=== PATIENT | female | born 1955 | race Caucasian/White ===

== ENCOUNTER 2022-11-26 12:21 | Inpatient (IN) | payer MEDICARE ==
--- OUTSIDE RECORDS SUMMARY | 2022-11-26 12:28 | XMS REPORT | Continuity of Care Document ---
:1955 Author Organization [facility] t Address [address] [facility] [address] [place] [address] Care Team Providers Name Role Phone ALTHEA RIBERA Primary Care Physician Unavailable Jonathon Phillips Attending Clinician Unavailable Jonathon Phillips Attending Clinician Unavailable Mickie Cronin RN Attending Clinician Unavailable ALTHEA RIBERA Attending Clinician [facility] Unavailable [email or web address] Attending Clinician Unavailable Naheed BACA, Jose Sanchez Attending Clinician Clayton BACA, Soledad Recinos Attending Clinician [phone] Augusto BACA, Sulema Attending Clinician Jose BACA, Sarai Castro Attending Clinician Mari Estrella MD Attending Clinician Jamia Meehan MD Attending Clinician Raffaele Hurtado MD Attending Clinician Patricia BACA, Deborah Attending Clinician Bernard Haider MA Attending Clinician Unavailable Sarah Ordoñez MA Attending Clinician Unavailable Josh Oakes MA Attending Clinician Unavailable Macey MCKEON, Estrellita Attending Clinician Jeanette BACA, Kishan Medley Attending Clinician [phone] Jamia Jean MA Attending Clinician Unavailable Margy Clifton Attending Clinician [phone] Violet Haider MA Attending Clinician Unavailable BUTCH BURNETTE Attending Clinician Unavailable DIANA CRESPO Attending Clinician Unavailable MARIELOS RIVERO Attending Clinician Unavailable HAYES BYRNE Attending Clinician Unavailable VENICE ALDRIDGE Attending Clinician Unavailable MD VENICE ALDRIDGE Attending Clinician Unavailable ROLLY MICHELLE Attending Clinician Unavailable MD ROLLY MICHELLE Attending Clinician Unavailable JONATHON PHILLIPS Attending Clinician Unavailable Abimael Lafleur Attending Clinician Unavailable Abimael Lafleur Attending Clinician Unavailable BLAKE GIFFORD M.D., Lizbeth LOZANO Attending Clinician Unavailable Jonathon Phillips Admitting Clinician Unavailable ALTHEA RIBERA Admitting Clinician Unavailable [email or web address] Admitting Clinician Unavailable SULEMA CASAS Admitting Clinician Unavailable VENICE ALDRIDGE Admitting Clinician Unavailable MD VENICE ALDRIDGE Admitting Clinician Unavailable CHAPARRO CROWLEY Admitting Clinician Unavailable MD CHAPARRO CROWLEY Admitting Clinician Unavailab Abimael Cox Admitting Clinician Unavailable Silvana GARCIA M.D., Lizbeth Pina Admitting Clinician [facility] [place] Payers Payer Name Policy Type Policy Number Effective Date Expiration Date S [facility] [id number] 2022 (MEDICARE 00:00:00 REPLACEMENT HMO) 2 M [id number] 2022 00:00:[address] [facility] [id number] 2022 (O) 00:00:00 [facility] POS [id number] 2019 00:00:00 Problems Condition Condition Condition Status Onset Resolution Last Treating Co mments Source Name Details Category Date Date Treatment Clinician Date Symptomati Symptomati Disease Active M ethodi c anemia c anemia 3 00:00: Hospita 00 l Chest Chest Disease Active Methodi tightness tightness 3 00:00: Hospita 00 l Dyspnea on Dyspnea on Disease Active M ethodi exertion exertion 3 00:00: Hospita 00 l Housing Housing Disease Active Methodi instabilit instabilit 05-20 st y y 00:00: Hospita 00 l Iron Iron Disease Active Overview: Method i deficiency deficiency 05-20tin st anemia anemia 00:00: g of this Hospita 00 note l might be different from the original. Added automatic ally from request for surgery [id number] Alcohol Alcohol Disease Active Methodi dependence dependence 09-24 , in , in 00:00: Hospita remission remission 00 l Backache Backache Disease Active Metho di 09-24 00:00: Hospita 00 l Food Food Disease Active Methodi insecurity insecurity 09-24 00:00: Hospita 00 l Insomnia Insomnia Disease Active Metho di 09-24 00:00: Hospita 00 l Tobacco Tobacco Disease Active Methodi abuse abuse 09-24 00:00: Hospita 00 l Type 2 Type 2 Disease Active Methodi diabetes diabetes 09-24 mellitus mellitus 00:00: Hospit a with with 00 l peripheral peripheral angiopathy angiopathy Hypothyroi Hypothyroi Disease Active M ethodi dism dism 07-02 00:00: Hospita 00 l Hypoglycem Hypoglycem Disease Active M ethodi ia ia 06-04 00:00: Hospita 00 l Essential Essential Disease Active Met hodi hypertensi hypertensi 04-24 on on 00:00: Hospita 00 l Hyperlipid Hyperlipid Disease Active M ethodi emia emia 04-24 00:00: Hospita 00 l Atrial Atrial Disease Active Methodi dilatation dilatation 04-24 , left , left 00:00: Hospita 00 l Cannabis Cannabis Disease Active Metho di abuse abuse 04-24 00:00: Hospita 00 l Family Family Disease Active Methodi history of history of 04-24 diabetes diabetes 00:00: Hospit a mellitus mellitus 00 l in father in father Hyponatrem Hyponatrem Disease Active M ethodi ia ia 04-11 00:00: Hospita 00 l Allergies, Adverse Reactions, Alerts Allergy Allergy Status Severity Reaction(s) Onset Inactive Treating Comm ents Source Name Type Date Date Clinician No Known NA Active [place] Allergie 07-06 lle s 11:56: Memoria 52 l No Known NA Active [place] Allergie 07-06 lle s 11:56: Memoria 49 l No Known NA Active [place] Allergie 06-30 lle s 08:17: Memoria 55 l No Known NA Active [place] Allergie 06-30 lle s 08:00: Memoria 45 l No Known NA Active [place] Allergie 06-30 lle s 07:37: Memoria 08 l No Known NA Active [place] Allergie 06-29 lle s 08:20: Memoria 39 l No Known NA Active [place] Allergie 06-22 lle s 15:51: Memoria 12 l No Known NA Active [place] Allergie 06-22 lle s 15:49: Memoria 14 l Sertrali Propensi Active Other (See Me thodi ne ty to Comments) 10-22 adverse 00:00: Hospita reaction 00 l s to drug Nifedipi Propensi Active Unknown Metho di ne ty to Reaction 04-08 adverse 00:00: Hospita reaction 00 l s to drug Other Propensi Active Rash Methodi ty to 04-08 adverse 00:00: Hospita reaction 00 l s Procardi Drug Active Medical a [facility] Procardi Drug Active Medical a [facility] Procardi Drug Active Medical a [facility] Procardi Drug Active Medical a [facility] Procardi Drug Active Medical a [facility] Procardi Drug Active Medical a [facility] Procardi Drug Active [facility] Procardi Drug Active [facility] Procardi Drug Active [facility] Procardi Drug Active [facility] Procardi Drug Active [facility] Procardi Drug Active [facility] Procardi Drug Active [facility] Procardi Drug Active [facility] Procardi Drug Active [facility] Procardi Drug Active [facility] Procardi Drug Active [facility] Procardi Drug Active Medical a [facility] Procardi Drug Active Medical a [facility] Procardi Drug Active Medical a [facility] Procardi Drug Active Medical a [facility] Family History Family Member Diagnosis Comments Start Date Stop Date Source Natural brother Cancer [facility] Natural brother Bipolar disorder Met [facility] Natural brother Hypertension Method[facility] Natural father Diabetes [facility] Natural father Hyperlipidemia Method [facility] Natural father Hypertension [facility] Natural mother Cancer [facility] Natural mother Diabetes [facility] Natural mother Heart attack [facility] Natural mother Hyperlipidemia Method [facility] Natural mother Hypertension [facility] Natural mother Stroke [facility] Social History Social Habit Start Date Stop Date Quantity Comments Source Gender identity 2022-04-22 Identifies as Method ist 20:33:51 female gender Hospital (finding) Sexual orientation 2022-04-22 Heterosexual Meth odist 20:33:51 (finding) Hospital History of tobacco Cigarette Smoker Worship use Hospital History [facility] Worship Alcohol Std Drinks Hospit al History of Social 2022-06-22 2022-06-[address] function 00:00:00 00:00:00 Hospital Alcohol intake 2022-05-29 2022-05-29 Ex-drinker Worship 00:00:00 00:00:00 (finding) Hospital Tobacco use and 2022-05-20 2022-05-20 Smokeless tobacco Me thodist exposure 00:00:00 00:00:00 non-user Hospital Cigarettes smoked 2022-05-20 2022-05-[address] current (pack per 00:00:00 00:00:00 Hospita l day) - Reported Cigarette 2022-05-20 2022-05-20 Worship pack-years 00:00:00 00:00:00 Hospital History [facility] 2022-05-11 2022-05-11 3 Worship Social Connections 00:00:00 00:00:00 Hospit al Phone History [facility] 2022-05-11 2022-05-11 5 Worship Social Connections 00:00:00 00:00:00 Hospit al Get Together History [facility] 2022-05-11 2022-05-11 1 Worship Social Connections 00:00:00 00:00:00 Hospit al Tenriism History [facility] 2022-05-11 2022-05-11 2 Worship Social Connections 00:00:00 00:00:00 Hospit al Membership History [facility] 2022-05-11 2022-05-11 1 Worship Social Connections 00:00:00 00:00:00 Hospit al Meetings History [facility] 2022-05-11 2022-05-11 4 Worship Social Connections 00:00:00 00:00:00 Hospit al Living History [facility] Food 2022-05-11 2022-05-[address] Worry 00:00:00 00:00:00 Hospital History [facility] Food 2022-05-11 2022-05-[address] Scarcity 00:00:00 00:00:00 Hospital History [facility] 2022-05-11 2022-05-11 1 Worship Transport Med 00:00:00 00:00:00 Hospital History [facility] 2022-05-11 2022-05-11 1 Worship Transport Non-Med 00:00:00 00:00:00 Hospita l History [facility] 2020-04-24 2020-04-24 1 Worship Alcohol Frequency 00:00:00 00:00:00 Hospita l History [facility] 2020-04-24 2020-04-24 1 Worship Alcohol Binge 00:00:00 00:00:00 Hospital Sex Assigned At [address] [facility] 00:00[facility]00 [facility]00 [facility] Smoking Status Start Date Stop Date Source Ex-smoker 2022-05-20 00:00:00 2022-05-20 00:00:00 [facility] Hospital Medications Ordered Filled Start Stop Current Ordering Indication Dosage Frequency Signature Comments Components Source Medication Medication Date Date Medication? Clinician (SIG) Name Name metoprolol Yes 25mg Q.5D Take 1 Metho di succinate 3-14 tablet (25 st XL 14:24: mg total) Hospita (TOPROL-XL) 05 by mouth 2 l 25 mg 24 hr (two) tablet times a day. metoprolol Yes 25mg Q.5D Take 1 Metho di succinate 3-14 tablet (25 st XL 14:24: mg total) Hospita (TOPROL-XL) 05 by mouth 2 l 25 mg 24 hr (two) tablet times a day. metoprolol 2023-0 Yes 25mg Q.5D Take 1 Metho di succinate 3-14 tablet (25 st XL 14:24: mg total) Hospita (TOPROL-XL) 05 by mouth 2 l 25 mg 24 hr (two) tablet times a day. rosuvastati 2023-0 Yes 20mg QD Take 1 Meth xavier n (CRESTOR) 3-13 tablet (20 st 20 mg 14:25: mg total) Hospita tablet 05 by mouth l daily. rosuvastati 2023-0 Yes 20mg QD Take 1 Meth xavier n (CRESTOR) 3-13 tablet (20 st 20 mg 14:25: mg total) Hospita tablet 05 by mouth l daily. rosuvastati 2023-0 Yes 20mg QD Take 1 Meth xavier n (CRESTOR) 3-13 tablet (20 st 20 mg 14:25: mg total) Hospita tablet 05 by mouth l daily. pantoprazol 2023-0 2023- No 40mg Q.5D Take 1 Met hodi e 3-13 04-13 tablet (40 st (PROTONIX) 00:00: 04:59 mg total) H ospita 40 MG EC 00 :00 by mouth 2 l tablet (two) times a day for 30 days. pantoprazol 2023-0 2023- No 40mg Q.5D Take 1 Met hodi e 3-13 04-13 tablet (40 st (PROTONIX) 00:00: 04:59 mg total) H ospita 40 MG EC 00 :00 by mouth 2 l tablet (two) times a day for 30 days. pantoprazol 2023-0 2023- No 40mg Q.5D Take 1 Met hodi e 3-13 04-13 tablet (40 st (PROTONIX) 00:00: 04:59 mg total) H ospita 40 MG EC 00 :00 by mouth 2 l tablet (two) times a day for 30 days. bisacodyL 2023-0 Yes 5mg Take 1 Method i (Dulcolax, 3-07 tablet (5 st bisacodyl,) 00:00: mg total) H ospita 5 mg EC 00 by mouth l tablet take as directed for constipati on (take all 4 pills at once 6 pm the day before procedure) . bisacodyL 2023-0 Yes 5mg Take 1 Method i (Dulcolax, 3-07 tablet (5 st bisacodyl,) 00:00: mg total) H ospita 5 mg EC 00 by mouth l tablet take as directed for constipati on (take all 4 pills at once 6 pm the day before procedure) . bisacodyL 2023-0 Yes 5mg Take 1 Method i (Dulcolax, 3-07 tablet (5 st bisacodyl,) 00:00: mg total) H ospita 5 mg EC 00 by mouth l tablet take as directed for constipati on (take all 4 pills at once 6 pm the day before procedure) . polyethylen 2023-0 2023- No 17g QD Take 17 g Methodi e glycol 3-09 14-[address] (Miralax) 00:00: 04:59 daily for Ho spita 17 gram 00 :00 30 days. l packet polyethylen 2023-0 2023- No 17g QD Take 17 g Methodi e glycol 3-09 14-[address] (Miralax) 00:00: 04:59 daily for Ho spita 17 gram 00 :00 30 days. l packet polyethylen 2023-0 2023- No 17g QD Take 17 g Methodi e glycol 3- 04-[address] (Miralax) 00:00: 04:59 daily for Ho spita 17 gram 00 :00 30 days. l packet polyethylen 2023-0 2023- No 119g Take 119 g Methodi e glycol 3-09 13-[address] (GLYCOLAX) 00:00: 00:00 take as Hos irena 17 00 :00 directed l gram/dose (take as powder instructed for bowel prep). polyethylen 2023-0 2023- No 119g Take 119 g Methodi e glycol 3- 03-[address] (GLYCOLAX) 00:00: 00:00 take as Hos irena 17 00 :00 directed l gram/dose (take as powder instructed for bowel prep). polyethylen 2023-0 2023- No 119g Take 119 g Methodi e glycol 3- 03-[address] (GLYCOLAX) 00:00: 00:00 take as Hos irena 17 00 :00 directed l gram/dose (take as powder instructed for bowel prep). aspirin 2022- No 81mg QD Take 81 mg Met hodi (ECOTRIN) 2-20 02-[address] 81 MG 10:01: 00:00 daily. Hospita enteric 05 :00 l coated tablet aspirin 2022- No 81mg QD Take 81 mg Met hodi (ECOTRIN) 2-20 02-[address] 81 MG 10:01: 00:00 daily. Hospita enteric 05 :00 l coated tablet aspirin 2022- No 81mg QD Take 81 mg Met hodi (ECOTRIN) 2-20 02-[address] 81 MG 10:01: 00:00 daily. Hospita enteric 05 :00 l coated tablet sulfamethox 2022- No [id number] 1{tbl} Q.5D Take 1 Methodi azole-trime -03 05- tablet by st thoprim 00:00: 05:59 mouth 2 Hospit a (BACTRIM 00 :00 (two) l DS) 800-160 times a mg per day for 5 tablet days. sulfamethox 2022- No [id number] 1{tbl} Q.5D Take 1 Methodi azole-trime -03 05- tablet by st thoprim 00:00: 05:59 mouth 2 Hospit a (BACTRIM 00 :00 (two) l DS) 800-160 times a mg per day for 5 tablet days. sulfamethox 2022- No [id number] 1{tbl} Q.5D Take 1 Methodi azole-trime 2-03 05- tablet by st thoprim 00:00: 05:59 mouth 2 Hospit a (BACTRIM 00 :00 (two) l DS) 800-160 times a mg per day for 5 tablet days. sulfamethox 2022- No [id number] 1{tbl} Q.5D Take 1 Methodi azole-trime 2-10 13-[address] thoprim 00:00: 00:00 mouth 2 Hospit a (BACTRIM 00 :00 (two) l DS) 800-160 times a mg per day for 5 tablet days. sulfamethox 2022- No [id number] 1{tbl} Q.5D Take 1 Methodi azole-trime 04-21-[address] thoprim 00:00: 00:00 mouth 2 Hospit a (BACTRIM 00 :00 (two) l DS) 800-160 times a mg per day for 5 tablet days. sulfamethox 2022- No [id number] 1{tbl} Q.5D Take 1 Methodi azole-trime 04-21-[address] thoprim 00:00: 00:00 mouth 2 Hospit a (BACTRIM 00 :00 (two) l DS) 800-160 times a mg per day for 5 tablet days. predniSONE 2021- No [id number] 20mg Q.5D Take 1 Methodi (DELTASONE) -01 10-27 tablet (20 s t 20 mg 00:00: 04:59 mg total) Hospit a tablet 00 :00 by mouth 2 l (two) times a day for 5 days. predniSONE 2021-2021- No [id number] 20mg Q.5D Take 1 Methodi (DELTASONE) -01 10-27 tablet (20 s t 20 mg 00:00: 04:59 mg total) Hospit a tablet 00 :00 by mouth 2 l (two) times a day for 5 days. ondansetron 2022- No 4mg Q8H Take 1 Met hodi (Zofran) 4 -18 02-20 tablet (4 st MG tablet 00:00: 00:00 mg total) Ho spita 00 :00 by mouth l every 8 (eight) hours as needed for nausea or vomiting. ondansetron 2021-0 2022- No 4mg Q8H Take 1 Met hodi (Zofran) 4 7-18 02-20 tablet (4 st MG tablet 00:00: 00:00 mg total) Ho spita 00 :00 by mouth l every 8 (eight) hours as needed for nausea or vomiting. ondansetron 2021-2022- No 4mg Q8H Take 1 Met hodi (Zofran) 4 7-18 02-20 tablet (4 st MG tablet 00:00: 00:00 mg total) Ho spita 00 :00 by mouth l every 8 (eight) hours as needed for nausea or vomiting. varicella-z 2021-0 2021- No [id number] .5mL Inject 0.5 Methodi amanda 09-10- mL into st gE-AS01B, 00:00: 04:59 the Hospita PF, 00 :00 shoulder, l (Shingrix, thigh, or PF,) 50 buttocks mcg/0.5 mL once for 1 suspension dose. for reconstitut ion IM injection varicella-z 2021-2021- No [id number] .5mL Inject 0.5 Methodi amanda 09-10 07- mL into st gE-AS01B, 00:00: 04:59 the Hospita PF, 00 :00 shoulder, l (Shingrix, thigh, or PF,) 50 buttocks mcg/0.5 mL once for 1 suspension dose. for reconstitut ion IM injection metoprolol 2021-2021- No 25mg Q.5D Take 25 mg Methodi tartrate 07-30-[address] (LOPRESSOR) 13:22: 00:00 (two) Hosp noreen 25 mg 59 :00 times a l tablet day. metoprolol 2021-2021- No [id number] 25mg Q.5D Take 1 Methodi tartrate 5-19 08-18 tablet (25 st (LOPRESSOR) 00:00: 04:59 mg total) Hospita 25 mg 00 :00 by mouth 2 l tablet (two) times a day for 90 days. metoprolol 2021-0 2021- No [id number] 25mg Q.5D Take 1 Methodi tartrate 5-19 08-18 tablet (25 st (LOPRESSOR) 00:00: 04:59 mg total) Hospita 25 mg 00 :00 by mouth 2 l tablet (two) times a day for 90 days. albuterol 2022- No [id number] INHALE THE Methodi (ACCUNEB) 04-01 02-[address] 1.25 mg/3 00:00: 00:00 OF 1 VIAL Ho spita mL 00 :00 VIA l nebulizer NEBULIZER solution EVERY 6 (SIX) HOURS NEEDED FOR WHEEZING. albuterol 2021-2022- No [id number] INHALE THE Methodi (ACCUNEB) 04-01-[address] 1.25 mg/3 00:00: 00:00 OF 1 VIAL Ho spita mL 00 :00 VIA l nebulizer NEBULIZER solution EVERY 6 (SIX) HOURS NEEDED FOR WHEEZING. albuterol 2022- No [id number] INHALE THE Methodi (ACCUNEB) 04-01-[address] 1.25 mg/3 00:00: 00:00 OF 1 VIAL Ho spita mL 00 :00 VIA l nebulizer NEBULIZER solution EVERY 6 (SIX) HOURS NEEDED FOR WHEEZING. acarbose 2020-03 Yes [id number] TAKE 1 Me thodi (PRECOSE) 2-[address] 25 MG 00:00: THREE Hospita tablet 00 TIMES l DAILY WITH MEALS acarbose 2020-03 Yes [id number] TAKE 1 Me thodi (PRECOSE) 2-[address] 25 MG 00:00: THREE Hospita tablet 00 TIMES l DAILY WITH MEALS acarbose 2020-03 Yes [id number] TAKE 1 Me thodi (PRECOSE) 2-[address] 25 MG 00:00: THREE Hospita tablet 00 TIMES l DAILY WITH MEALS DULoxetine 2020-03- No [id number] TAKE 1 Methodi (CYMBALTA) 03-16 07 CAPSULE(30 st 30 MG 00:00: 00:00 MG) BY Hospita capsule 00 :00 MOUTH l DAILY DULoxetine 2020-03- No [id number] TAKE 1 Methodi (CYMBALTA) 03-16 07 CAPSULE(30 st 30 MG 00:00: 00:00 MG) BY Hospita capsule 00 :00 MOUTH l DAILY levothyroxi 2020-03 Yes [id number] TAKE 1 Methodi ne 0-19 TABLET(25 st (SYNTHROID) 00:00: MCG) BY Hos irena 25 mcg 00 MOUTH l tablet DAILY levothyroxi 2020-03 Yes [id number] TAKE 1 Methodi ne 0-19 TABLET(25 st (SYNTHROID) 00:00: MCG) BY Hos irena 25 mcg 00 MOUTH l tablet DAILY levothyroxi 2020-03 Yes [id number] TAKE 1 Methodi ne 0-19 TABLET(25 st (SYNTHROID) 00:00: MCG) BY Hos irena 25 mcg 00 MOUTH l tablet DAILY nebulizers 2022- No For Method i misc 09-[address] 00:00: 00:00 use Hospita 00 :00 l nebulizers 2022- No For Method i misc 09-[address] 00:00: 00:00 use Hospita 00 :00 l nebulizers 2022- No For Method i misc 09-[address] 00:00: 00:00 use Hospita 00 :00 l lisinopriL 2020-0 Yes 40mg QD Take 1 Metho di (PRINIVIL) 7-14 tablet (40 st 40 mg 00:00: mg total) Hospita tablet 00 by mouth l daily. lisinopriL 2020-0 Yes 40mg QD Take 1 Metho di (PRINIVIL) 7-14 tablet (40 st 40 mg 00:00: mg total) Hospita tablet 00 by mouth l daily. lisinopriL 2020-0 Yes 40mg QD Take 1 Metho di (PRINIVIL) 7-14 tablet (40 st 40 mg 00:00: mg total) Hospita tablet 00 by mouth l daily. clopidogreL 0 Yes 75mg QD Take 1 Meth xavier (PLAVIX) 75 4-27 tablet (75 st mg tablet 00:00: mg total) Hos irena 00 by mouth l daily. clopidogreL 2020-0 Yes 75mg QD Take 1 Meth xavier (PLAVIX) 75 4-27 tablet (75 st mg tablet 00:00: mg total) Hos irena 00 by mouth l daily. clopidogreL 2020-0 Yes 75mg QD Take 1 Meth xavier (PLAVIX) 75 4-27 tablet (75 st mg tablet 00:00: mg total) Hos irena 00 by mouth l daily. Immunizations Ordered Immunization Filled Immunization Date Status Commen ts Source Name Name Pneumococcal 2021-09-10 Completed Worship 20-valent Conjugate 00:00:00 Hospi tristan Vaccine Pneumococcal 2021-09-10 Completed Worship 20-valent Conjugate 00:00:00 [facility]pi [facility]istan Vaccine Pneumococcal 2021-09-10 Completed Worship 20-valent Conjugate 00:00:00 [facility]pi tristan Vaccine PFIZER COVID-19 MRNA 2021-02-19 Completed Meth odist VACCINATION 00:00:00 [facility] PFIZER COVID-19 MRNA 2021-02-19 Completed Meth odist VACCINATION 00:00:00 [facility] PFIZER COVID-19 MRNA 2021-02-19 Completed Meth odist VACCINATION 00:00:00 [facility] PFIZER COVID-19 MRNA 2020-12-16 Completed Meth odist VACCINATION 00:00:00 [facility] PFIZER COVID-19 MRNA 2020-12-16 Completed Meth odist VACCINATION 00:00:00 [facility] PFIZER COVID-19 MRNA 2020-12-16 Completed Meth odist VACCINATION 00:00:00 [facility] PFIZER COVID-19 MRNA 2020-10-22 Completed Meth odist VACCINATION 00:00:00 [facility] PFIZER COVID-19 MRNA 2020-10-22 Completed Meth odist VACCINATION 00:00:00 [facility] PFIZER COVID-19 MRNA 2020-10-22 Completed Meth odist VACCINATION 00:00:00 [facility] FLUZONE HIGH-DOSE PF 2020-04-07 Completed Meth odist 00:00:00 [facility] FLUZONE HIGH-DOSE PF 2020-04-07 Completed Meth odist 00:00:00 [facility] FLUZONE HIGH-DOSE PF 2020-04-07 Completed Meth odist 00:00:00 Hospital Vital Signs Vital Name Observation Time Observation Value Comments Source Height/Length 2021-04-02 12:09:46 162 cm Measured Weight Dosing 2021-04-02 12:09:46 67 kg Height/Length 2021-04-02 12:09:35 162 cm Measured Weight Dosing 2021-04-02 12:09:35 67 kg Height/Length 2021-04-02 12:09:22 162 cm Measured Weight Dosing 2021-04-02 12:09:22 67 kg Height/Length 2021-04-02 12:09:04 162 cm Measured Weight Dosing 2021-04-02 12:09:04 67 kg Height/Length 2021-04-02 12:08:47 162 cm Measured Weight Dosing 2021-04-02 12:08:47 67 kg Height/Length 2021-04-02 12:08:22 162 cm Measured Weight Dosing 2021-04-02 12:08:22 67 kg Height/Length 2021-04-02 12:08:08 162 cm Measured Weight Dosing 2021-04-02 12:08:08 65.30 kg Height/Length 2021-04-02 12:07:45 162 cm Measured Weight Dosing 2021-04-02 12:07:45 65.30 kg Weight Dosing 2021-04-02 12:10:49 64.00 kg Weight Dosing 2021-04-02 12:10:43 64.00 kg Height/Length 2019-10-04 15:21:21 Measured Height/Length 2019-10-04 06:19:50 Measured Weight Dosing 2019-10-04 06:19:50 Weight Dosing 2021-04-02 11:55:59 67.20 kg Weight Dosing 2021-04-02 11:49:34 67.20 kg Weight Dosing 2021-04-02 11:49:25 67.20 kg Weight Dosing 2021-04-02 11:49:22 67.20 kg Weight Dosing 2021-04-02 11:49:19 67.20 kg Weight Dosing 2021-04-02 11:49:16 67.20 kg Heart rate 2022-05-24 13:30:00 78 /min [facility] Systolic blood 2022-05-24 12:27:52 139 mm[Hg] [facility] pressure Diastolic blood 2022-05-24 12:27:52 72 mm[Hg] [facility] pressure Body temperature 2022-05-24 12:27:52 36.44 [place] [facility] Respiratory rate 2022-05-24 12:27:52 18 /min [facility] Oxygen saturation in 2022-05-24 12:27:52 98 /min [facility] Arterial blood by Pulse oximetry Body weight 2022-05-24 10:37:00 58.514 kg [facility] BMI 2022-05-24 10:37:00 23.59 kg/m2 [facility] Body height 2022-05-22 13:39:00 157.5 cm [facility] Procedures Procedure Date / Time Performing Source Performed Clinician POC GLUCOSE 2022-05-24 Jamia Meehan 13:33:00 [facility] BASIC METABOLIC PANEL 2022-05-24 Jamia Meehan 10:10:00 [facility] CBC WITH PLATELET AND DIFFERENTIAL 2022-05-24 Elvia Meehan 10:10:00 [facility] MAGNESIUM LEVEL 2022-05-24 Jamia Meehan 10:10:00 [facility] ESTIMATED GFR 2022-05-24 Jamia Meehan 10:10:00 [facility] POC GLUCOSE 2022-05-24 Jamia Meehan 01:56:00 [facility] POC GLUCOSE 2022-05-23 Jamia Meehan 16:39:00 [facility] POC GLUCOSE 2022-05-23 Jamia Meehan 13:03:00 [facility] BASIC METABOLIC PANEL 2022-05-23 Mari Estrella [facility] 09:18:00 Hospital CBC WITH PLATELET AND DIFFERENTIAL 2022-05-23 Mari Estrella [facility] 09:18:00 Hospital ESTIMATED GFR 2022-05-23 Mari Estrella [facility] 09:18:00 Hospital POC GLUCOSE 2022-05-23 Jamia Meehan 02:34:00 [facility] POC GLUCOSE 2022-05-22 Jamia Meehan 23:05:00 [facility] POC GLUCOSE 2022-05-22 Jamia Meehan 16:54:00 [facility] ESOPHAGOGASTRODUODENOSCOPY (EGD) 2022-05-22 Tray Farfan 14:12:00 Hospital COLONOSCOPY 2022-05-22 Tray Farfan 14:12:00 Hospital SURGICAL PATHOLOGY REQUEST 2022-05-22 Jamia Meehan [facility] 13:21:00 [facility] BASIC METABOLIC PANEL 2022-05-22 Mari Estrella [facility] 12:00:00 Hospital CBC WITH PLATELET AND DIFFERENTIAL 2022-05-22 Mari Estrella 12:00:00 Hospital LIPID PANEL 2022-05-22 Mari Estrella [facility] 12:00:00 Hospital HEMOGLOBIN A1C 2022-05-22 Mari Estrella [facility] 12:00:00 Hospital VITAMIN B12 LEVEL 2022-05-22 Mari Estrella [facility] 12:00:00 Hospital CERULOPLASMIN LEVEL 2022-05-22 Mari Estrella [facility] 12:00:00 Hospital ESTIMATED GFR 2022-05-22 Mari Estrella [facility] 12:00:00 Hospital COPPER LEVEL, SERUM 2022-05-22 Mari Estrella My [facility] 11:05:00 Hospital POC GLUCOSE 2022-05-22 Mari Estrella My [facility] 04:13:00 Hospital US HEPATIC 2022-05-22 Mari Estrella My [facility] 02:50:00 Hospital POC GLUCOSE 2022-05-21 Mari Estrella My [facility] 22:18:00 Hospital POC GLUCOSE 2022-05-21 Mari Estrella My [facility] 19:38:00 Hospital POC GLUCOSE 2022-05-21 Mari Estrella My [facility] 19:13:00 Hospital POC GLUCOSE 2022-05-21 EstrellaMari My [facility] 17:59:00 Hospital POC GLUCOSE 2022-05-21 Mari Estrella My [facility] 13:56:00 Hospital CBC WITH PLATELET AND DIFFERENTIAL 2022-05-21 Jose, Sarai Worship 09:58:00 [facility] COMPREHENSIVE METABOLIC PANEL 2022-05-21 Sarai Garcia thodist 09:58:00 [facility] ESTIMATED GFR 2022-05-21 Jose Sarai Worship 09:58:00 [facility] POC GLUCOSE 2022-05-21 Jose, Sarai Worship 02:44:00 [facility] TROPONIN T 2022-05-21 Jose, Sarai Worship 01:37:00 [facility] TROPONIN T 2022-05-20 Jose, Sarai Worship 23:42:00 [facility] POC GLUCOSE 2022-05-20 Jose Sarai Worship 23:41:00 [facility] TRANSFUSE RED BLOOD CELLS 2022-05-20 Soledad Arnold Method ist 22:25:00 [facility] TTE COMPLETE, WO CONTRAST, W 2022-05-20 Sarai Garcia Met hodist DOPPLER ([id number]) 20:24:00 [facility] TRANSFUSE RED BLOOD CELLS 2022-05-20 Soledad Arnold Method ist 19:43:00 [facility] CT ABDOMEN PELVIS W CONTRAST 2022-05-20 Sarai Garcia Met hodist 19:40:42 [facility] US DUPLEX VENOUS LOWER EXTREMITY 2022-05-20 Soledad Arnoldist BILATERAL 18:53:00 [facility] TROPONIN T 2022-05-20 Sarai Garcia 18:20:00 [facility] ABO AND RH CONFIRMATION BY 2022-05-20 Sarai Garcia dist PROTOCOL 18:20:00 [facility] MA CRITICAL CARE ILL/INJURED 2022-05-20 Soledad Arnold hodist PATIENT INIT 30-74 MIN 17:10:18 [facility] ECG ED PRELIMINARY INTERPRETATION 2022-05-20 Donna Arnold 17:10:18 [facility] COMPREHENSIVE METABOLIC PANEL 2022-05-20 Soledad Arnold thodist 16:35:00 [facility] CBC WITH PLATELET AND DIFFERENTIAL 2022-05-20 Artemio Arnold 16:35:00 [facility] PROTHROMBIN TIME WITH INR 2022-05-20 Soledad Arnold ist 16:35:00 [facility] PARTIAL THROMBOPLASTIN TIME (PTT) 2022-05-20 Donna Arnold 16:35:00 [facility] TYPE AND SCREEN 2022-05-20 Soledad Arnold 16:35:00 [facility] ESTIMATED GFR 2022-05-20 Soledad Arnold 16:35:00 [facility] SMEAR REVIEW 2022-05-20 Soledad Arnold 16:35:00 [facility] ECG 12-LEAD 2022-05-20 Soledad Arnold 15:57:02 [facility] PREPARE RBC 2022-05-20 Soledad Arnold 15:35:00 [facility] TOTAL IRON BINDING CAPACITY 2022-05-18 Jose Farfan Daniel Meth odist 15:13:00 Hospital FERRITIN LEVEL 2022-05-18 Elian Farfanul Daniel [facility] 15:13:00 Hospital COMPREHENSIVE METABOLIC PANEL 2022-05-18 Tray Farfan thodist 15:13:00 Hospital LIPASE LEVEL 2022-05-18 Naheed Jose Daniel [facility] 15:13:00 Hospital CBC WITH PLATELET AND DIFFERENTIAL 2022-05-18 Jose Farfan H aq Worship 15:13:00 Hospital ESTIMATED GFR 2022-05-18 Elian Farfanul Daniel [facility] 15:13:00 [facility] TOTAL IRON BINDING CAPACITY 2022-05-18 Jose Farfan Daniel Meth odist 15:13:00 Hospital URINE CULTURE 2022-04-21 Deborah Gomezist 16:01:00 [facility] POC URINALYSIS DIPSTICK 2022-04-21 Deborah Gomez t 15:20:26 Hospital CBC WITH PLATELET AND DIFFERENTIAL 2022-04-21 Deborah Gomezist 15:17:00 Hospital BASIC METABOLIC PANEL 2022-04-21 Deborah Gomez 15:17:00 [facility] MRI LUMBAR SPINE WO CONTRAST 2021-09-23 Margy Snyder [facility] 13:20:00 [facility] HEMOGLOBIN A1C 2021-09-10 Deborah Gomez 18:40:00 [facility] HEPATITIS C ANTIBODY 2021-09-10 Deborah Gomez 18:40:00 [facility] MICROALBUMIN / CREATININE URINE 2021-09-10 Deborah Gomez RATIO 18:40:00 Hospital XR LUMBAR SPINE 2 OR 3 VW 2021-08-13 Margy Snyder Method ist 15:48:39 [facility] CBC WITH PLATELET AND DIFFERENTIAL 2021-07-30 Deborah Gomez 18:32:00 [facility] BASIC METABOLIC PANEL 2021-07-30 Deborah Gomez 18:32:00 [facility] LIPID PANEL 2021-07-30 Deborah Gomez 18:32:00 [facility] Plan of Care Planned Activity Planned Date Details Comments Source Future Scheduled 2022-11-17 Screening for [facility] Test 20:12:18 malignant neoplasm of colon (procedure) [code = 284711550] Future Scheduled 2022-11-17 Screening for [facility] Test 20:12:18 malignant neoplasm of colon (procedure) [code = 550421433] Future Scheduled 2022-11-17 Screening for [facility] Test 20:12:18 malignant neoplasm of colon (procedure) [code = 547557448] Future Scheduled 2022-11-17 SHINGLES VACCINES (1 Met [facility] Test 20:12:18 of 2) [code = SHINGLES VACCINES (1 of 2)] Future Scheduled 2022-11-17 DIABETES: RETINAL EYE Me [facility] Test 20:12:18 EXAM [code = DIABETES: RETINAL EYE EXAM] Future Scheduled 2022-11-17 BREAST [facility]CER [facility] 20:12:18 SCREENING [code = BREAST CANCER SCREENING] Future Scheduled 2022-11-17 COVID-19 VACCINE (4 - [facility] 20:12:18 Pfizer series) [code = COVID-19 VACCINE (4 - Pfizer series)] Future Scheduled 2022-11-17 DIABETIC FOOT EXAM [facility] Test 20:12:18 [code = DIABETIC FOOT EXAM] Future Scheduled 2022-11-17 URINE MICROALBUMIN [facility] Test 20:12:18 [code = URINE MICROALBUMIN] Future Scheduled 2022-11-17 INFLUENZA VACCINE (#1) [facility] 20:12:18 [code = INFLUENZA VACCINE (#1)] Future Scheduled 2022-11-17 [facility] for [facility] 20:12:18 malignant neoplasm of colon (procedure) [code = 861941934] Future Scheduled 2022-11-17 Screening for [facility] Test 20:12:18 malignant neoplasm of colon (procedure) [code = 251096379] Future Scheduled 2022-07-28 SHINGLES VACCINES (1 Met [facility] Test 07:13:53 of 2) [code = SHINGLES VACCINES (1 of 2)] Future Scheduled 2022-07-28 DIABETES: RETINAL EYE [facility] Test 07:13:53 EXAM [code = DIABETES: RETINAL EYE EXAM] Future Scheduled 2022-07-28 BREAST CANCER [facility] Test 07:13:53 SCREENING [code = BREAST CANCER SCREENING] Future Scheduled 2022-07-28 COVID-19 VACCINE (4 - [facility] Test 07:13:53 Booster for Pfizer series) [code = COVID-19 VACCINE (4 - Booster for Pfizer series)] Future Scheduled 2022-07-28 DIABETIC FOOT EXAM [facility] Test 07:13:53 [code = DIABETIC FOOT EXAM] Future Scheduled 2022-07-28 URINE MICROALBUMIN [facility] Test 07:13:53 [code = URINE MICROALBUMIN] Future Scheduled 2022-07-28 INFLUENZA VACCINE [facility] Test 07:13:53 [code = INFLUENZA VACCINE] Future Scheduled 2022-07-[address] [facility] Test 07:13:53 [code = COLONOSCOPY SCREENING] Future Scheduled 2022-05-27 SHINGLES VACCINES (1 Met [facility] Test 10:06:33 of 2) [code = SHINGLES VACCINES (1 of 2)] Future Scheduled 2022-05-27 DIABETES: RETINAL EYE [facility] Test 10:06:33 EXAM [code = DIABETES: RETINAL EYE EXAM] Future Scheduled 2022-05-27 COLONOSCOPY SCREENING [facility] Test 10:06:33 [code = COLONOSCOPY SCREENING] Future Scheduled 2022-05-27 [facility]AST [facility]CER [facility] Test 10:06:33 SCREENING [code = BREAST CANCER SCREENING] Future Scheduled 2022-05-27 COVID-19 VACCINE (4 - [facility] Test 10:06:33 Booster for Pfizer series) [code = COVID-19 VACCINE (4 - Booster for Pfizer series)] Future Scheduled 2022-05-27 INFLUENZA VACCINE [facility] Test 10:06:33 [code = INFLUENZA VACCINE] Future Scheduled 2022-05-27 DIABETIC FOOT EXAM [facility] Test 10:06:33 [code = DIABETIC FOOT EXAM] Future Scheduled 2022-05-27 URINE MICROALBUMIN [facility] Test 10:06:33 [code = URINE MICROALBUMIN] Encounters Start End Encounter Admission Attending Care Care Encounter Source Date/Time Date/Time Type Type Clinicians Facility Department ID 2019-10-03 Inpatient Jonathon Phillips [facility] JUANITA [id number] Medical 09:27:00 Jonathon Phillips [facility] 2022-07-16 2022-07-16 [facility] 00:00:00 [id number] Medica l Group 2022-07-15 2022-07-15 [facility] 00:00:00 [id number] Medica l Group 2022 2022 Patient Dove, 1.2.840.1 [id number] Methodi 00:00:00 00:00:00 Outreach Mickie 87197.1.1 706 3.430.2.7 Hospit a .3.777443 l .8 2022 2022 Patient Dove, 1.2.840.1 [id number] Methodi 00:00:00 00:00:00 Outreach Mickie 07669.1.[address] 3.430.2.7 Hospit a .3.624917 l .8 2022-07-07 2022-07-07 Patient Dove, 1.2.840.1 [id number] Methodi 00:00:00 00:00:00 Outreach Mickie 74802.1.[address] 3.430.2.7 Hospit a .3.532475 l .8 2022-07-07 2022-07-07 Patient Dove, 1.2.840.1 [id number] 3562 Methodi 00:00:00 00:00:00 Outreach Mickie 62041.1.[address] 3.430.2.7 Hospit a .3.455163 l .8 2022-06-30 2022-06-30 Outpatient EBONY 2.16.840.1. 1 [id number] 12:37:00 12:37:00 Encounter E [id number]. [facility] [id number] [facility] 2022-06-30 2022-06-30 Outpatient 3 BEST, ALTHEA HVLMo DEX 474 Genny 07:37:00 07:37:00 0419 llpat Woodall l 2022-06-29 2022-06-29 Patient Dove, 1.2.840.1 [id number] Methodi 00:00:00 00:00:00 Outreach Mickie 58925.1.[address] 3.430.2.7 Hospit a .3.499955 l .8 2022-06-29 2022-06-29 Patient Dove, 1.2.840.1 [id number] Methodi 00:00:00 00:00:00 Outreach Mickie 72385.1.[address] 3.430.2.7 Hospit a .3.892218 l .8 2022-06-23 2022-06-23 Patient Pablito, 1.2.840.1 [id number] Methodi 00:00:00 00:00:00 Outreach Nafisa 38178.1.[address] 3.430.2.7 Hospit a .3.909185 l .8 2022-06-23 2022-06-23 Patient Pablito, 1.2.840.1 [id number] Methodi 00:00:00 00:00:00 Outreach Lisaa 72641.1.[address] 3.430.2.7 Hospit a .3.681218 l .8 2022-06-22 2022-06-22 Patient Dove, 1.2.840.1 [id number] Methodi 00:00:00 00:00:00 Outreach Mickie 21054.1.[address] 3.430.2.7 Hospit a .3.773868 l .8 2022-06-22 2022-06-22 Patient Dove, 1.2.840.1 [id number] Methodi 00:00:00 00:00:00 Outreach Mickie 54368.1.[address] 3.430.2.7 Hospit a .3.104496 l .8 2022-06-09 2022-06-09 Patient Pablito, 1.2.840.1 [id number] Methodi 00:00:00 00:00:00 Outreach Osmanutina 11922.1.[address] 3.430.2.7 Hospit a .3.032050 l .8 2022-06-09 2022-06-09 Patient Pablito, 1.2.840.1 [id number] 2085 Methodi 00:00:00 00:00:00 Outreach Osmanutina 21291.1.[address] 3.430.2.7 Hospit a .3.558308 l .8 2022-06-08 2022-06-08 Outpatient GC_CCW_Rami PRIV PRIV [id number] [facility] 00:00:00 00:00:00 francia_Mala [id number] Medica l 2022-06-03 2022-06-03 Outpatient GC_CCW_Rami PRIV PRIV [id number] [facility] 00:00:00 00:00:00 francia_R [id number] Medica l 2022-05-27 2022-05-27 Jose Leon 1.2.840.1 [id number] Methodi 00:00:00 00:00:[address] 3.430.2.7 Hospit a .3.552723 l .8 2022-05-27 2022-05-27 Quincy Jose Farfan 1.2.840.1 [id number] Methodi 00:00:00 00:00:[address] 3.430.2.7 Hospit a .3.448133 l .8 2022-05-20 2022-05-24 [facility] [id number] Methodi 09:49:00 14:24:00 Encounter Sulema Casas 30873.1.[address] Kura, Sarai Methuku 3.430.2.7 [facility], Mari My .3.397991 Jamia Hunt .8 2022-05-20 2022-05-24 [facility] 1.2.840. 1 [id number] Methodi 09:49:00 14:24:00 Encounter Sulema Casas 60860.1.[address] Kura, Sarai Methuku 3.430.2.7 [facility], Mari My .3.129312 Jamia Hunt .8 2022-05-22 2022-05-22 Anesthesia Hurtado, 1.2.840.1 [id number] [id number] Methodi 08:12:00 09:05:00 Event Raffaele 12567.1.[address] 3.430.2.7 Hospit a .3.993957 l .8 2022-05-22 2022-05-22 Anesthesia Hurtado, 1.2.840.1 [id number] Methodi 08:12:00 09:05:00 Event Raffaele 82205.1.[address] 3.430.2.7 Hospit a .3.517120 l .8 2022-05-22 2022-05-22 Surgery Farfan, Jose 1.2.840.1 [id number] 21 [id number] Methodi 08:00:00 08:30:[address] 3.430.2.7 Hospit a .3.257034 l .8 2022-05-22 2022-05-22 Surgery Farfan, Jose 1.2.840.1 [id number] Methodi 08:00:00 08:30:[address] 3.430.2.7 Hospit a .3.303360 l .8 2022-05-18 2022-05-18 Lab Farfan, Jose 1.2.840.1 [id number] 21 [id number] Methodi 09:15:00 09:20:[address] 3.430.2.7 Hospit a .3.192788 l .8 2022-05-18 2022-05-18 [facility] 1.2.840.1 [id number] 21 [id number] Methodi 09:15:00 09:20:[address] 3.430.2.7 Hospit a .3.750987 l .8 2022-05-18 2022-05-18 Office Farfan, Jose 1.2.840.1 [id number] 21 [id number] Methodi 08:00:00 08:50:33 Visit Daniel 22786.1.[address] 3.430.2.7 Hospit a .3.151995 l .8 2022-05-18 2022-05-18 Office Farfan, Jose 1.2.840.1 [id number] 21 [id number] Methodi 08:00:00 08:50:33 Visit Daniel 53663.1.[address] 3.430.2.7 Hospit a .3.686783 l .8 2022-05-18 2022-05-18 Travel 1.2.840.1 1.2.680.729 2156 [id number] Methodi 00:00:00 00:00:[address] 3.430.2.7 0.2.7.3.698 Ho spita .3.013830 084.8 l .8 2022-05-18 2022-05-18 Travel 1.2.840.1 1.2.810.200 0645 741157 Methodi 00:00:00 00:00:[address] 3.430.2.7 0.2.7.3.698 Ho spita .3.143555 084.8 l .8 2022-05-14 2022-05-14 Telephone Gomez, 1.2.840.1 [id number] 2100 [id number] Methodi 00:00:00 00:00:[address] 3.430.2.7 Hospit a .3.741295 l .8 2022-05-14 2022-05-14 Telephone Gomez, 1.2.840.1 [id number] 2100 [id number] Methodi 00:00:00 00:00:[address] 3.430.2.7 Hospit a .3.983507 l .8 2022-05-06 2022-05-06 Telephone Gomez, 1.2.840.1 [id number] 06124 Methodi 00:00:00 00:00:[address] 3.430.2.7 Hospit a .3.141220 l .8 2022-05-06 2022-05-06 Telephone Gomez, 1.2.840.1 [id number] 62374 86036 Methodi 00:00:00 00:00:[address] 3.430.2.7 Hospit a .3.280967 l .8 2022-05-03 2022-05-03 Office Gomez, 1.2.840.1 [id number] 901 Methodi 10:00:00 10:11:51 Visit Deborah [address]5592.1.[address] 3.430.2.7 Hospit a .3.103141 l .8 2022-05-03 2022-05-03 Office Gomez, 1.2.840.1 [id number] 901 Methodi 10:00:00 10:11:51 Visit Deborah [address]8533.1.[address] 3.430.2.7 Hospit a .3.561093 l .8 2022-05-03 2022-05-03 Travel 1.2.840.1 1.2.987.563 9949 328096 Methodi 00:00:00 00:00:[address] 3.430.2.7 0.2.7.3.698 Ho spita .3.672512 084.8 l .8 2022-05-03 2022-05-03 Travel 1.2.840.1 1.2.606.056 3868 133914 Methodi 00:00:00 00:00:[address] 3.430.2.7 0.2.7.3.698 Ho spita .3.765299 084.8 l .8 2022-04-21 2022-04-21 Office Gomez, 1.2.840.1 [id number] 263 Methodi 09:00:00 09:25:59 Visit Deborah 35978.1.[address] 3.430.2.7 Hospit a .3.892187 l .8 2022-04-21 2022-04-21 Office Gomez, 1.2.840.1 [id number] 263 Methodi 09:00:00 09:25:59 Visit Deborah 57935.1.[address] 3.430.2.7 Hospit a .3.358998 l .8 2022-04-20 2022-04-20 Travel 1.2.840.1 1.2.683.780 6789 927103 Methodi 00:00:00 00:00:[address] 3.430.2.7 0.2.7.3.698 Ho spita .3.784932 084.8 l .8 2022-04-20 2022-04-20 Travel 1.2.840.1 1.2.079.501 7709 135343 Methodi 00:00:00 00:00:[address] 3.430.2.7 0.2.7.3.698 Ho spita .3.948412 084.8 l .8 2022-04-19 2022-04-19 Telephone FarfanJose 1.2.840.1 [id number] Methodi 00:00:00 00:00:[address] 3.430.2.7 Hospit a .3.921243 l .8 2022-04-19 2022-04-19 Telephone FarfanJose 1.2.840.1 [id number] Methodi 00:00:00 00:00:[address] 3.430.2.7 Hospit a .3.865338 l .8 2021-10-08 2021-10-08 Refritesh Haider, 1.2.840.1 [id number] 4900 Methodi 00:00:00 00:00:00 Diannastefangreer 43848.1.1 [address] 3.430.2.7 Hospit a .3.270060 l .8 2021-10-05 2021-10-05 Travel 1.2.840.1 1.2.674.438 0591 355956 Methodi 00:00:00 00:00:[address] 3.430.2.7 0.2.7.3.698 Ho spita .3.094668 084.8 l .8 2021-10-02 2021-10-02 Sarah Hess 1.2.840.1 [id number] Methodi 00:00:00 00:00:[address] 3.430.2.7 Hospit a .3.640916 l .8 2021-10-01 2021-10-01 Telemedici Gomez, 1.2.840.1 [id number] 2100 [id number] Methodi 12:40:00 12:40:00 ne Deborah 96174.1.[address] 3.430.2.7 Hospit a .3.710352 l .8 2021-09-30 2021-09-30 Travel 1.2.840.1 1.2.277.062 4144 143476 Methodi 00:00:00 00:00:[address] 3.430.2.7 0.2.7.3.698 Ho spita .3.691561 084.8 l .8 2021-09-29 2021-09-29 Telephone Violette 1.2.840.1 [id number] 2099 [id number] Methodi 00:00:00 00:00:[address] 3.430.2.7 Hospit a .3.014487 l .8 2021-09-28 2021-09-28 Orders Patricia 1.2.840.1 [id number] 440 Methodi 00:00:00 00:00:00 Only Deborah 11910.1.[address] 3.430.2.7 Hospit a .3.028257 l .8 2021-09-28 2021-09-28 Telephone Patricia 1.2.840.1 [id number] 47081 Methodi 00:00:00 00:00:[address] 3.430.2.7 Hospit a .3.719459 l .8 2021-09-25 2021-09-25 Virtual Estrellita Choudhury 1.2.840.1 [id number] [id number] Methodi 16:30:00 17:02:[address] Care 3.430.2.7 Hospit a .3.574750 l .8 2021-09-25 2021-09-25 Outpatient [facility] [id number] 323 [place] 00:00:00 00:00:[address] 2021-09-25 2021-09-25 Telephone Gomez, 1.2.840.1 [id number] 00680 13881 Methodi 00:00:00 00:00:[address] 3.430.2.7 Hospit a .3.424650 l .8 2021-09-23 2021-09-23 Hospital Gomez, 1.2.840.1 [id number] Methodi 06:48:07 23:59:00 Encounter Deborah [address]497.1.[address] 3.430.2.7 Hospit a .3.596660 l .8 2021-09-22 2021-09-22 Travel 1.2.840.1 1.2.751.792 2373 609896 Methodi 00:00:00 00:00:[address] 3.430.2.7 0.2.7.3.698 Ho spita .3.003617 084.8 l .8 2021-09-11 2021-09-11 Refill Jeanette, 1.2.840.1 [id number] 5365 Methodi 00:00:00 00:00:[address] [place] 3.430.2.7 Hospit a .3.850548 l .8 2021-09-10 2021-09-10 Office Gomez, 1.2.840.1 [id number] 526 Methodi 13:00:00 13:43:26 Visit Deborah 50485.1.[address] 3.430.2.7 Hospit a .3.129480 l .8 2021-09-10 2021-09-10 Travel 1.2.840.1 1.2.065.807 5819 782659 Methodi 00:00:00 00:00:[address] 3.430.2.7 0.2.7.3.698 Ho spita .3.567053 084.8 l .8 2021-09-08 2021-09-08 Patient Ted, 1.2.840.1 [id number] Methodi 00:00:00 00:00:00 Outreach Jamia 46387.1.[address] 3.430.2.7 Hospit a .3.639332 l .8 2021-08-14 2021-08-14 Travel 1.2.840.1 1.2.221.500 6931 969337 Methodi 00:00:00 00:00:[address] 3.430.2.7 0.2.7.3.698 Ho spita .3.432994 084.8 l .8 2021-08-13 2021-08-13 Office [place], 1.2.840.1 [id number] [facility] 11:00:00 13:40:00 Visit Margy 41739.1.[address] Nava 3.430.2.7 Hospit a .3.202193 l .8 2021-08-13 2021-08-13 Outpatient [facility] [id number] [place] 00:00:00 00:00:[address] 2021-08-11 2021-08-11 Travel 1.2.840.1 1.2.264.290 0078 [id number] [facility] 00:00:00 00:00:[address] 3.430.2.7 0.2.7.3.698 Ho spita .3.771823 084.8 l .8 2021-07-30 2021-07-30 Office Gomez, 1.2.840.1 [id number] 245 [facility] 13:00:00 13:25:42 Visit Deborah 55811.1.[address] 3.430.2.7 Hospit a .3.023121 l .8 2021-07-30 2021-07-30 Travel 1.2.840.1 1.2.161.338 2891 [id number] [facility] 00:00:00 00:00:[address] 3.430.2.7 0.2.7.3.698 Ho spita .3.638484 084.8 l .8 2021-07-28 2021-07-28 Documentat [place], 1.2.840.1 [id number] [facility] 00:00:00 00:00:00 ion Violet 33175.1.[address] [place] 3.430.2.7 Hos irena .3.318722 l .8 2021-07-27 2021-07-27 Travel 1.2.840.1 1.2.874.527 0985 182206 [facility] 00:00:00 00:00:[address] 3.430.2.7 0.2.7.3.698 Ho spita .3.553620 084.8 l .8 2021-02-19 2021-02-19 Outpatient BURNETTE, [facility] [id number] 750 [place] 00:00:00 00:00:00 BUTCH 721 Method i 2021-02-19 2021-02-19 Outpatient [facility] [id number] [place] 00:00:00 00:00:00 989 [facility] i 2021-01-26 2021-01-26 Outpatient BURNETTE, [facility] [id number] 543 [place] 00:00:00 00:00:00 BUTCH 356 Method i 2021-01-05 2021-01-05 Outpatient GOMEZ, [facility] [id number] 375 [place] 00:00:00 00:00:00 DEBORAH 021 Method i 2021-01-05 2021-01-05 Outpatient [facility] [id number] 459 [place] 00:00:00 00:00:[address] 2020-12-16 2020-12-16 Outpatient GOMEZ, [facility] [id number] [place] 00:00:00 00:00:00 DEBORAH [address] 2020-12-16 2020-12-16 Outpatient [facility] [id number] [place] 00:00:00 00:00:[address] 2020-10-22 2020-10-22 Outpatient [facility] [id number] [place] 00:00:00 00:00:[address] 2020-10-22 2020-10-22 Outpatient CHERIE, [facility] [id number] [place] 00:00:00 00:00:[address] 2020-10-22 2020-10-22 Outpatient MARIELOS RIVERO [facility] [id number] [place] 00:00:00 00:00:[address] 2020-10-16 2020-10-16 Outpatient [facility] [id number] [facility] 00:00:00 00:00:00 CORONA [facility] 2020-10-09 2020-10-09 Outpatient JEANETTE, [facility] [id number] 286 [place] 00:00:00 00:00:00 MOHAMMED [address] 2020-09-24 2020-09-24 Outpatient GOMEZ, [facility] [id number] [place] 00:00:00 00:00:00 EDBORAH [address] 2020-08-14 2020-08-14 Outpatient [facility] [id number] [place] 00:00:00 00:00:[address] 2020-07-18 2020-07-18 Outpatient CHERIE, [facility] [id number] [place] 00:00:00 00:00:[address] 2020-07-08 2020-07-08 Outpatient RAMINENI, [facility] [id number] [place] 00:00:00 00:00:00 VENICE [address] 2020-07-07 2020-07-07 Emergency [facility] [id number] 84 [place] 00:00:00 00:00:[address] 2020-07-04 2020-07-04 Outpatient RAMINENI, [facility] [id number] [place] 00:00:00 00:00:00 VENICE [address] 2020-07-02 2020-07-02 Outpatient JEANETTE, [facility] [id number] [place] 00:00:00 00:00:00 MOHAMMED [address] 2020-06-04 2020-06-04 Outpatient JEANETTE, [facility] [id number] [place] 00:00:00 00:00:00 MOHAMMED [address] 2020-04-242020-04-24 Outpatient [facility] [id number] [place] 00:00:00 00:00:00 876 Alexa lopez 2020-04-10 2020-04-12 Inpatient [facility] [id number] [place] 00:00:00 00:00:00 ROLLY [address] 2019-10-29 2019-10-29 Outpatient EL NANCY PHILLIPS AE [id number] CHRISTU 09:43:00 09:43:[address] [place] [address] 2019-10-07 2019-10-07 Emergency [facility] [id number] Medical 12:55:00 12:55:00 [facility] 2019-10-07 2019-10-07 Emergency 1 Abimael Lafleur [facility]DER [id number] Medical 12:55:00 12:55:00 Abimael Lafleur -[id number] [facility] 2019-10-04 2019-10-04 Outpatient 3 Jonathon Phillips MCSETX JUANITA [id number] Medical 06:02:00 06:02:00 Jonathon Phillips -[id number] [facility] 2019-09-18 2019-09-18 Outpatient EL NANCY PHILLIPS AE [id number] CHRISTU 15:35:00 15:35:[address] 2019-09-13 2019-09-13 Emergency [facility]DER [id number] Medical 12:30:00 12:30:00 [facility] 2016-08-15 2016-08-15 Inpatient E [facility] MED [id number] Medical 19:45:00 15:34:00 [facility] 2016-05-03 2016-05-03 Emergency E [facility] MED [id number] Medical 12:46:00 12:46:00 [facility] 2016-04-23 2016-04-23 Emergency E [facility] MED [id number] Medical 09:15:00 09:15:00 [facility] Results Test Description Test Time Test Comments Results Result Comments Source Surgical pathology request 2022-05-25 16:44:20 Test Item Value Reference Range Interpretation Comme nts Case number (test code = 1251750) [id number] Surgical pathology report (test code = See link below for PDF Lab R eport 2255) Result status (test code = 6638016) This is Final Report for [id number] [facility] pathology [id number] 16:44:20 Test Item Value Reference Range Interpretation Comments Case number (test code = [id number]) Surgical pathology See link below for report (test code = PDF Lab Report 2255) Result status (test code This is Final Report = [id number]) for [id number] [facility] pathology [id number] 16:44:20 Test Item Value Reference Range Interpretation Comments Case number (test code = [id number]) Surgical pathology See link below for report (test code = PDF Lab Report 2255) Result status (test code This is Final Report = [id number]) for [id number] [facility] [id number] 13:34:00 Test Item Value Reference Range Interpretation Comments POC glucose (test code 192 mg/dL 65-99 H Opera tor Name: = 96022-1) Michelle Abdi Device ID: [id number] Lab Interpretation Abnormal (test code = 23432-3) [facility]2023-03-13 13:34:00 Test Item Value Reference Range Interpretation Comments POC glucose (test code 192 mg/dL 65-99 H Opera tor Name: = 84647-1) Michelle Abdi Device ID: [id number] Lab Interpretation Abnormal (test code = 54320-3) [facility]2023-03-13 13:34:00 Test Item Value Reference Range Interpretation Comments POC glucose (test code 192 mg/dL 65-99 H Opera tor Name: = 34303-7) Michelle Abdi Device ID: [id number] Lab Interpretation Abnormal (test code = 93088-5) [facility], (w Contrast, Strain and 3D if needed)2022-05-21 18:57:50 Test Item Value Reference Range Interpretation Comments Ao Root Diameter 2.47 cm (test code = 1718431982) AoV Area, Vmax 2.17 cm2 See_Comment [Automated (test code = message] The 0717710448) system which generated this result transmitted reference range : >=1.5. The reference range was not used to interpret this result as normal/abnormal . AoV Area, VTI 2.37 cm2 (test code = 3341073284) AoV Mean PG (test 3.69 mmHg code = 3158169843) AoV Peak PG (test 7.79 mmHg code = 3884534190) AoV Vmax (test 1.40 m/s code = 7979989211) AoV VTI (test code 0.31 m = 9662664044) BSA Cox (test 1.68 m2 code = 9600321028) BSA (test code = 1.64 m2 2234286212) IVS,d (test code = 0.90 cm 0.6-0.9 3360576912) IVS/LVPW,2D (test 1.05 code = 2534499152) Left Atrium 5.09 cm Dimension Anterior (test code = 2453221821) LV,d (test code = 4.93 cm 8744392207) LV EF,2D (test 68.15 % code = 6991155097) LV EF,A2C (test 64.40 % code = 1139744680) LV EF,A4C (test 67.19 % code = 0453538220) LV EF,BP (test 66.16 % code = 5822240363) [place]akesh [place],d A2C 7.43 cm (test code = 1107085874) Rakesh [place],d A4C 7.77 cm (test code = 2360948788) Rakesh [place],s A2C 6.18 cm (test code = 1373812901) Rakesh [place],s A4C 6.37 cm (test code = 0421127142) LV,s (test code = 3.37 cm 3067823995) LV SV,A2C (test 47.58 % code = 3150134750) LV SV,A4C (test 61.18 % code = 2654525047) LV SV,BP (test 55.46 % code = 1449626418) LV Vol,d A2C (test 73.88 mL code = 9392160564) LV Vol,d A4C (test 91.06 ml code = 6140722176) LV Vol,d BP (test 83.82 ml code = 7439969094) LV Vol,s A2C (test 26.30 mL code = 2784256132) LV Vol,s A4C (test 29.88 ml code = 6515323777) LV Vol,s BP (test 28.36 nl code = 3499562518) LVOT area (test 2.98 cm2 code = 2891535519) LVOT Diam,S (test 1.95 cm code = 4481921209) LVOT Vmax (test 1.02 m/s code = 7254581335) LVOT VTI (test 0.25 m code = 4756051329) LVPWD,d (test code 0.85 cm 0.60-1.19 = 1922229342) TR Vpeak (test 2.87 m/s code = 7706436724) MV E A ratio (test 2.90 code = 0430938842) TR pk grad (test 33.4 mmHg code = 2612266954) AoV area i VTI BSA 1.45 cm2/m2 See_Comment [Automat ed Radha (test code message] T he = 8596047649) system which generated this result transmitted reference range : >=0.85. The reference range was not used to interpret this result as normal/abnormal . LV SI MOD BP BSA 33.79 ml/m2 [place] (test code = 2175802166) LV Vol Index s 51.07 ml/m2 bpmod BSA [place] (test code = 0526312346) PV Vmn (test code 17.28 m/s = 4549325027) BMI (test code = 24.09 kg/m2 1576987274) E wave decelartion 245.16 See_Comment [Automat ed time (test code = message] T he 8868604187) system which generated this result transmitted reference range : 200 msec. The reference range was not used to interpret this result as normal/abnormal . MV Peak A Guillermo 0.45 m/s (test code = 0588715157) MV valve area p 3.09 cm2 1/2 method (test code = 0374433666) MV Peak E Guillermo 1.29 m/s (test code = 6990212165) MV stenosis 71.10 ms pressure 1/2 time (test code = 3638727844) LVOT stroke volume 0.75 cm3 (test code = 4207424234) AV LVOT peak 4.17 mmHg gradient (test code = 5809419854) Ao Root Diameter 2.47 cm (test code = 9914231351) MV mean gradient 2.73 mmHg (test code = 5893478709) LV SYS VOL (test 46.28 ml 14-42 code = 1944155544) LV GRESHAM VOL (test 114.31 ml 46-106 code = 9763619809) LA area s A4C 29.13 cm2 (test code = 1940063784) LV SI Teich 2D 41.45 ml/m2 (test code = 6255759098) LV SV Teich 2D 68.03 ml (test code = 4299321653) LV Vol s Teich 46.28 ml PSAX (test code = 5667751767) LVOT SI (test code 45.10 ml/m2 = 5985117334) MR peak grad (test 8.42 mmHg code = 7402935600) MV Vmax (test code 1.45 m = 4375884936) MV VTI Tips (test 0.38 m code = 2741210254) BSA [place] (test 1.67 m2 code = 4257505712) AoV Vmn (test code 0.88 m/s = 9906114083) IVS s 2D (test 1.44 cm code = 4584204750) LV FS Teich 2D 31.71 (test code = 1751335952) MV AE ratio (test 0.35 code = 2119554054) LV FS Cube 2D 31.71 (test code = 1887967178) LVOT Vmn (test 0.76 code = 5973250365) Pt Size (test code 160.02 = 7131968899) Pt Wt (test code = 61.69 8414212830) Aov area Vmn (test 2.56 cm2 code = 7150675510) LA A_P score P 4.87 (test code = 6251910061) LVOT mean grad 2.52 mmHg (test code = 1520685678) 85 of MPHR (test 129.33 code = 1659316736) AoV area I VMN bsa 1.56 cm2/m2 (test code = 7827070714) Calc MPHR (test 152.15 bpm code = 7209096802) IVS pct thck PLAX 60.66 % (test code = 7670615771) LV SI Cube 2D 49.68 ml/m2 (test code = 5624400046) LV SV Cube 2D 81.55 ml (test code = 3442225177) LV vol d cube 2D 119.66 ml (test code = 9734172914) LV vol s cube 2D 38.11 ml (test code = 3898442304) LVPW pct thck PLAX 60.93 % (test code = 7232428182) LVPW s PLAX (test 1.37 cm code = 3042915633) MV Decel slope 5.27 m/s2 (test code = 9361098469) Pred Exer Dur R1 7.06 (test code = 9259110213) Pred METS R1 (test 5.88 code = 3632514099) LA Vol MOD A4C 106.72 ml (test code = 2565891055) Velocity Ratio 0.73 m/s (V1/V2) (test code = 4689) EF (test code = 60 % 8360911927) E/A ratio (test 2.87 code = 2926449940) LV Systolic Volume 16.04 mL/m2 Index (test code = 9287043229) LV Diastolic 45.05 mL/m2 Volume Index (test code = 2649969129) LVOT VTI (CM) 25.00 cm (test code = 2853991348) RVSP (test code = 38.40 See_Comment [Automate d 6374943667) message] The system which generated this result transmitted reference range : 40.00 mmHg. The reference range was not used to interpret this result as normal/abnormal . RA pressure (test 5.0 mmHg code = 6949104489) BINDU (test code = BINDU) Left Ventricle: Normal systolic function with a visually estimated EF of 55 - 60%. Grade II (pseudonormal) diastolic dysfunction. Left Atrium: Left atrium is severely dilated. Right Ventricle: Right ventricle size is normal. Right Atrium: Right atrium is mildly dilated. Mitral Valve: Mildly thickened leaflets. Mild mitral annular calcification. Moderate valvular regurgitation with multiple jets. Tricuspid Valve: Mild valvular regurgitation. Left VentricleLeft ventricle size is normal. Normal wall thickness. Normal systolic function with a visually estimated EF of 55 - 60%. Grade II (pseudonormal) diastolic dysfunction.Right VentricleRight ventricle size is normal. Normal systolic function.Left AtriumLeft atrium is severely dilated.Right AtriumRight atrium is mildly dilated.IVC/SVCIVC diameter is less than or equal to 21 mm and decreases greater than 50% during inspiration; therefore the estimated right atrial pressure is normal (~3 mmHg).Mitral ValveMildly thickened leaflets. Mild mitral annular calcification. Moderate valvular regurgitation with multiple jets. No stenosis.Tricuspid ValveValve structure grossly normal. Mild valvular regurgitation. No stenosis.Aortic ValveValve structure appears tricuspid. Mildly sclerotic cusps. Trace valvular regurgitation. No stenosis.Pulmonic ValveNot well visualized. No significant valvular regurgitation. No stenosis.Pericardium There is no pericardial effusion present.AortaNormal sized aortic root.Study DetailsStudy quality was fair. A complete 2D, color flow Doppler and spectral Doppler echocardiogram was performed.The apical and parasternal views were obtained. The subcostal view was poor. The suprasternal view was poor. Technical difficulties due to patient's body habitus. [facility], (w Contrast, Strain and 3D if needed)2022-05-21 18:57:50 Test Item Value Reference Range Interpretation Comments Ao Root Diameter 2.47 cm (test code = 6555167990) AoV Area, Vmax 2.17 cm2 >=1.5 (test code = 6904066133) AoV Area, VTI 2.37 cm2 (test code = 9678157032) AoV Mean PG (test 3.69 mmHg code = 8780484991) AoV Peak PG (test 7.79 mmHg code = 7386968702) AoV Vmax (test 1.40 m/s code = 3065028665) AoV VTI (test code 0.31 m = 5011022831) BSA Cox (test 1.68 m2 code = 4393740306) BSA (test code = 1.64 m2 4368232736) IVS,d (test code = 0.90 cm 0.6-0.9 0458487819) IVS/LVPW,2D (test 1.05 code = 7584499936) Left Atrium 5.09 cm Dimension Anterior (test code = 6700228612) LV,d (test code = 4.93 cm 4768868351) LV EF,2D (test 68.15 % code = 6642229271) LV EF,A2C (test 64.40 % code = 7627553748) LV EF,A4C (test 67.19 % code = 3869856757) LV EF,BP (test 66.16 % code = 0306086010) Rakesh [place],d A2C 7.43 cm (test code = 7535969183) Rakesh [place],d A4C 7.77 cm (test code = 3989953289) Rakesh [place],s A2C 6.18 cm (test code = 6806444031) Rakesh [place],s A4C 6.37 cm (test code = 4660706703) LV,s (test code = 3.37 cm 4399163486) LV SV,A2C (test 47.58 % code = 5983730828) LV SV,A4C (test 61.18 % code = 3530442680) LV SV,BP (test 55.46 % code = 7515623278) LV Vol,d A2C (test 73.88 mL code = 7139052484) LV Vol,d A4C (test 91.06 ml code = 9140098171) LV Vol,d BP (test 83.82 ml code = 6989190034) LV Vol,s A2C (test 26.30 mL code = 2494551935) LV Vol,s A4C (test 29.88 ml code = 8708671217) LV Vol,s BP (test 28.36 nl code = 0704276278) LVOT area (test 2.98 cm2 code = 2648429903) LVOT Diam,S (test 1.95 cm code = 0130329813) LVOT Vmax (test 1.02 m/s code = 4872374579) LVOT VTI (test 0.25 m code = 3529783972) LVPWD,d (test code 0.85 cm 0.60-1.19 = 9360835872) TR Vpeak (test 2.87 m/s code = 3108309596) MV E A ratio (test 2.90 code = 4704279095) TR pk grad (test 33.4 mmHg code = 9084264671) AoV area i VTI BSA 1.45 cm2/m2 >=0.85 Radha (test code = 9229466628) LV SI MOD BP BSA 33.79 ml/m2 [place] (test code = 5770071789) LV Vol Index s 51.07 ml/m2 bpmod BSA Radha (test code = 5101699588) PV Vmn (test code 17.28 m/s = 1818191041) BMI (test code = 24.09 kg/m2 6208610041) E wave decelartion 245.16 See_Comment [Automat ed time (test code = message] T he 6963267437) system which generated this result transmitted reference range : 200 msec. The reference range was not used to interpret this result as normal/abnormal . MV Peak A Guillermo 0.45 m/s (test code = 4932043376) MV valve area p 3.09 cm2 1/2 method (test code = 0824740289) MV Peak E Guillermo 1.29 m/s (test code = 4914458538) MV stenosis 71.10 ms pressure 1/2 time (test code = 8695342746) LVOT stroke volume 0.75 cm3 (test code = 3707685957) AV LVOT peak 4.17 mmHg gradient (test code = 6114096859) Ao Root Diameter 2.47 cm (test code = 3664518270) MV mean gradient 2.73 mmHg (test code = 0141681870) LV SYS VOL (test 46.28 ml 14-42 code = 0468421738) LV GRESHAM VOL (test 114.31 ml 46-106 code = 5901252914) LA area s A4C 29.13 cm2 (test code = 1598520428) LV SI Teich 2D 41.45 ml/m2 (test code = 3313409873) LV SV Teich 2D 68.03 ml (test code = 5083077581) LV Vol s Teich 46.28 ml PSAX (test code = 2078276045) LVOT SI (test code 45.10 ml/m2 = 0556932649) MR peak grad (test 8.42 mmHg code = 2896820309) MV Vmax (test code 1.45 m = 6298990494) MV VTI Tips (test 0.38 m code = 2367336464) BSA [place] (test 1.67 m2 code = 6620302963) AoV Vmn (test code 0.88 m/s = 8232934514) IVS s 2D (test 1.44 cm code = 7836247795) LV FS Teich 2D 31.71 (test code = 0457568393) MV AE ratio (test 0.35 code = 7562378410) LV FS Cube 2D 31.71 (test code = 8675134885) LVOT Vmn (test 0.76 code = 1381564894) Pt Size (test code 160.02 = 1886837549) Pt Wt (test code = 61.69 4008343738) Aov area Vmn (test 2.56 cm2 code = 1473501569) LA A_P score P 4.87 (test code = 9327430769) LVOT mean grad 2.52 mmHg (test code = 0769672745) 85 of MPHR (test 129.33 code = 6947108607) AoV area I VMN bsa 1.56 cm2/m2 (test code = 5901682629) Calc MPHR (test 152.15 bpm code = 6537475704) IVS pct thck PLAX 60.66 % (test code = 6011060572) LV SI Cube 2D 49.68 ml/m2 (test code = 5716200075) LV SV Cube 2D 81.55 ml (test code = 7655038058) LV vol d cube 2D 119.66 ml (test code = 5196714596) LV vol s cube 2D 38.11 ml (test code = 1489801410) LVPW pct thck PLAX 60.93 % (test code = 9465097258) LVPW s PLAX (test 1.37 cm code = 7256228995) MV Decel slope 5.27 m/s2 (test code = 2866760323) Pred Exer Dur R1 7.06 (test code = 2205289860) Pred METS R1 (test 5.88 code = 0623323320) LA Vol MOD A4C 106.72 ml (test code = 3116876677) Velocity Ratio 0.73 m/s (V1/V2) (test code = 4689) EF (test code = 60 % 4093460349) E/A ratio (test 2.87 code = 6696690367) LV Systolic Volume 16.04 mL/m2 Index (test code = 4667840357) LV Diastolic 45.05 mL/m2 Volume Index (test code = 0771736029) LVOT VTI (CM) 25.00 cm (test code = 7230159282) RVSP (test code = 38.40 See_Comment [Automate d 3937212997) message] The system which generated this result transmitted reference range : 40.00 mmHg. The reference range was not used to interpret this result as normal/abnormal . RA pressure (test 5.0 mmHg code = 3758950912) BINDU (test code = BINDU) Left Ventricle: Normal systolic function with a visually estimated EF of 55 - 60%. Grade II (pseudonormal) diastolic dysfunction. Left Atrium: Left atrium is severely dilated. Right Ventricle: Right ventricle size is normal. Right Atrium: Right atrium is mildly dilated. Mitral Valve: Mildly thickened leaflets. Mild mitral annular calcification. Moderate valvular regurgitation with multiple jets. Tricuspid Valve: Mild valvular regurgitation. Left VentricleLeft ventricle size is normal. Normal wall thickness. Normal systolic function with a visually estimated EF of 55 - 60%. Grade II (pseudonormal) diastolic dysfunction.Right VentricleRight ventricle size is normal. Normal systolic function.Left AtriumLeft atrium is severely dilated.Right AtriumRight atrium is mildly dilated.IVC/SVCIVC diameter is less than or equal to 21 mm and decreases greater than 50% during inspiration; therefore the estimated right atrial pressure is normal (~3 mmHg).Mitral ValveMildly thickened leaflets. Mild mitral annular calcification. Moderate valvular regurgitation with multiple jets. No stenosis.Tricuspid ValveValve structure grossly normal. Mild valvular regurgitation. No stenosis.Aortic ValveValve structure appears tricuspid. Mildly sclerotic cusps. Trace valvular regurgitation. No stenosis.Pulmonic ValveNot well visualized. No significant valvular regurgitation. No stenosis.Pericardium There is no pericardial effusion present.AortaNormal sized aortic root.Study DetailsStudy quality was fair. A complete 2D, color flow Doppler and spectral Doppler echocardiogram was performed.The apical and parasternal views were obtained. The subcostal view was poor. The suprasternal view was poor. Technical difficulties due to patient's body habitus. [facility] 12 [id number] 04:29:44 Test Item Value Reference Range Interpretation Comments Ventricular rate (test 56 code = 253) Atrial rate (test code 56 = 255) MA interval (test code 120 = 266) QRSD interval (test 88 code = 260) QT interval (test code 448 = 264) QTC interval (test code 432 = 265) P axis 1 (test code = -24 267) QRS axis 1 (test code = 42 268) T wave axis (test code 56 = 270) EKG impression (test Sinus bradycardia-Low code = 273) voltage QRS-Borderline ECG-In automated comparison with ECG of 08-JUL-2020 11:10,-No significant change was found- [facility] 12 [id number] 04:29:44 Test Item Value Reference Range Interpretation Comments Ventricular rate (test 56 code = 253) Atrial rate (test code 56 = 255) MA interval (test code 120 = 266) QRSD interval (test 88 code = 260) QT interval (test code 448 = 264) QTC interval (test code 432 = 265) P axis 1 (test code = -24 267) QRS axis 1 (test code = 42 268) T wave axis (test code 56 = 270) EKG impression (test Sinus bradycardia-Low code = 273) voltage QRS-Borderline ECG-In automated comparison with ECG of 08-JUL-2020 11:10,-No significant change was found- [facility] 12 [id number] 04:29:44 Test Item Value Reference Range Interpretation Comments Ventricular rate (test 56 code = 253) Atrial rate (test code 56 = 255) MA interval (test code 120 = 266) QRSD interval (test 88 code = 260) QT interval (test code 448 = 264) QTC interval (test code 432 = 265) P axis 1 (test code = -24 267) QRS axis 1 (test code = 42 268) T wave axis (test code 56 = 270) EKG impression (test Sinus bradycardia-Low code = 273) voltage QRS-Borderline ECG-In automated comparison with ECG of 08-JUL-2020 11:10,-No significant change was found- [facility] 2 [id number] 21:17:00 Test Item Value Reference Range Interpretation Comments Product name (test code Red Cells AS1 Leukored = 25) Irrad Unit number (test code [id number] = 8391510) Product code (test code B5173Q24 = 3092) Dispense status (test Transfused code = 24) Blood expiration date (test code = 302) Blood type code (test 5100 code = 308) Blood type (test code = O POSITIVE 1314) Compatibility (test Compatible code = 6400) BINDU (test code = BINDU) LAB: +PATIENT ID VERIFIED. [facility] RBC, 2 [id number] 21:17:00 Test Item Value Reference Range Interpretation Comments Product name (test code Red Cells AS1 Leukored = 25) Irrad Unit number (test code [id number] = 0695756) Product code (test code H3010J58 = 3092) Dispense status (test Transfused code = 24) Blood expiration date (test code = 302) Blood type code (test 5100 code = 308) Blood type (test code = O POSITIVE 1314) Compatibility (test Compatible code = 6400) BINDU (test code = BINDU) LAB: +PATIENT ID VERIFIED. [facility] [place] [place] RBC, 2 [id number] 21:17:00 Test Item Value Reference Range Interpretation Comments Product name (test code Red Cells AS1 Leukored = 25) Irrad Unit number (test code [id number] = 3536112) Product code (test code G7718I71 = 3092) Dispense status (test Transfused code = 24) Blood expiration date (test code = 302) Blood type code (test 5100 code = 308) Blood type (test code = O POSITIVE 1314) Compatibility (test Compatible code = 6400) BINDU (test code = BINDU) LAB: +PATIENT ID VERIFIED. [facility] ED Preliminary Interpretation - Not an [id number] 17:10:18 Test Item Value Reference Range Interpretation Comments BINDU (test code = BINDU) Soledad Arnold MD 05/21/2022 2:47 [facility] ED Preliminary Interpretation - Not an OrderPerformed by: Soledad Arnold MDAuthorized by: Soledad Arnold MD ECG reviewed by ED Physician in the absence of a clerical office: yes Previous ECG: Previous ECG: UnavailableInterpretat ion: Interpretation: abnormal Rate: ECG rate: 56 ECG rate assessment: bradycardic Rhythm: Rhythm: sinus bradycardia Ectopy: Ectopy: none QRS: QRS axis: NormalConduction: Conduction: normal ST segments: ST segments: NormalT waves: T waves: normal Lab Interpretation Abnormal (test code = 94996-1) [facility] ED Preliminary Interpretation - Not an [id number] 17:10:18 Test Item Value Reference Range Interpretation Comments BINDU (test code = BINDU) Soledad Arnold MD 05/21/2022 2:47 [facility] ED Preliminary Interpretation - Not an OrderPerformed by: Soledad Arnold MDAuthorized by: Soledad Arnold MD ECG reviewed by ED Physician in the absence of a clerical office: yes Previous ECG: Previous ECG: UnavailableInterpretat ion: Interpretation: abnormal Rate: ECG rate: 56 ECG rate assessment: bradycardic Rhythm: Rhythm: sinus bradycardia Ectopy: Ectopy: none QRS: QRS axis: NormalConduction: Conduction: normal ST segments: ST segments: NormalT waves: T waves: normal Lab Interpretation Abnormal (test code = 71137-9) [facility] ED Preliminary Interpretation - Not an [id number] 17:10:18 Test Item Value Reference Range Interpretation Comments BINDU (test code = BINDU) Soledad Arnold MD 05/21/2022 2:47 [facility] ED Preliminary Interpretation - Not an OrderPerformed by: Soledad Arnold MDAuthorized by: Soledad Arnold MD ECG reviewed by ED Physician in the absence of a clerical office: yes Previous ECG: Previous ECG: UnavailableInterpretat ion: Interpretation: abnormal Rate: ECG rate: 56 ECG rate assessment: bradycardic Rhythm: Rhythm: sinus bradycardia Ectopy: Ectopy: none QRS: QRS axis: NormalConduction: Conduction: normal ST segments: ST segments: NormalT waves: T waves: normal Lab Interpretation Abnormal (test code = 24278-5) [facility] urinalysis [id number] 15:20:26 Test Item Value Reference Range Interpretation Comments Color urine, POC (test [place] code = 9502321) Clarity urine, POC (test Cloudy code = 7529967) Glucose urine, POC (test Negative Negative code = 1255337) Bilirubin urine, POC Negative Negative (test code = 0627073) Ketones urine, POC (test Negative Negative code = 2514-8) Specific gravity urine, 1.010 1.005-1.030 POC (test code = 5811-5) Blood urine, POC (test Trace Negative A code = 3487137) pH urine, POC (test code 6.5 See_Comment [A utomated message] = 5803-2) The system [employer] generated this result transmitted ref erence range: 5.0, 5.5 , 6.0, 6.5, 7.0, 7.5, 8.0, 8.5. The refere nce range was not u sed to interpret this result as normal/abnor mal. Protein urine, POC (test Negative Negative code = 14602-3) Urobilinogen urine, POC <2.0 See_Comment [Au tomated message] (test code = 84575-5) The sy stem which generated this result transmitted ref erence range: <=2.0. T he reference range was not used to int erpret this result as normal/abnormal . Nitrite urine, POC (test Positive Negative A code = 5802-4) Leukocyte esterase Large Negative A urine, POC (test code = 3372707) Lab Interpretation (test Abnormal code = 00601-2) [facility] urinalysis [id number] 15:20:26 Test Item Value Reference Range Interpretation Comments Color urine, POC (test [place] code = 3112540) Clarity urine, POC (test Cloudy code = 5223348) Glucose urine, POC (test Negative Negative code = 7066866) Bilirubin urine, POC Negative Negative (test code = 7082312) Ketones urine, POC (test Negative Negative code = 9131484) Specific gravity urine, 1.010 1.005-1.030 POC (test code = 8448953) Blood urine, POC (test Trace Negative A code = 8545982) pH urine, POC (test code 6.5 See_Comment [A utomated message] = 6373866) The system [employer] generated this result transmitted ref erence range: 5.0, 5.5 , 6.0, 6.5, 7.0, 7.5, 8.0, 8.5. The refere nce range was not u sed to interpret this result as normal/abnor mal. Protein urine, POC (test Negative Negative code = 7775774) Urobilinogen urine, POC <2.0 <=2.0 (test code = 8890457) Nitrite urine, POC (test Positive Negative A code = 9780676) Leukocyte esterase Large Negative A urine, POC (test code = 5380687) Lab Interpretation (test Abnormal code = 86861-8) [facility] urinalysis [id number] 15:20:26 Test Item Value Reference Range Interpretation Comments Color urine, POC (test [place] code = 3178572) Clarity urine, POC (test Cloudy code = 8468778) Glucose urine, POC (test Negative Negative code = 4155614) Bilirubin urine, POC Negative Negative (test code = 1238845) Ketones urine, POC (test Negative Negative code = 9771355) Specific gravity urine, 1.010 1.005-1.030 POC (test code = 9436930) Blood urine, POC (test Trace Negative A code = 9556544) pH urine, POC (test code 6.5 See_Comment [A utomated message] = 0763145) The system [employer] generated this result transmitted ref erence range: 5.0, 5.5 , 6.0, 6.5, 7.0, 7.5, 8.0, 8.5. The refere nce range was not u sed to interpret this result as normal/abnor mal. Protein urine, POC (test Negative Negative code = 3301568) Urobilinogen urine, POC <2.0 <=2.0 (test code = 9390616) Nitrite urine, POC (test Positive Negative A code = 0045201) Leukocyte esterase Large Negative A urine, POC (test code = 0964658) Lab Interpretation (test Abnormal code = 00352-7) [facility] [id number] 23:08:00 Test Item Value Reference Range Interpretation Comments Creatinine, 22.3 mg/dL Not Estab. urine (mg/dL) (test code = 2161-8) Albumin, urine <3.0 Not Estab. ug/mL Verifie d by repeat (test code = analysis 66558-9) Microalbumin/c <13 See_Comment Normal: 0 - 29 reatinine Moderately ratio (test increased: 30 - 300 code = 9318-7) Severely incr eased: >300 [Automated message] The sy stem which generated this result transmit gagan reference range : 0 - 29 mg/g creat. The reference range was not used to interpret this result as normal/abnormal . BINDU (test code Performed at: - = BINDU) [address] [id number] Director: Pedro Mcduffie MD, Phone: [phone] [facility] urine [id number] 23:08:00 Test Item Value Reference Range Interpretation Comments Creatinine, 22.3 mg/dL Not Estab. urine (mg/dL) (test code = 2161-8) Albumin, urine <3.0 Not Estab. ug/mL Verifie d by repeat (test code = analysis 50775-7) Microalbumin/c <13 See_Comment Normal: 0 - 29 reatinine Moderately ratio (test increased: 30 - 300 code = 9318-7) Severely incr eased: >300 [Automate d message] The sy stem which generated this result transmit gagan reference range : 0 - 29 mg/g creat. The reference range was not used to interpret this result as normal/abnormal . BINDU (test code Performed at: - = BINDU) [address] [id number] Director: Pedro Mcduffie MD, Phone: [phone] [facility] [id number] 13:11:00 Test Item Value Reference Range Interpretation Comments Hepatitis C Ab 0.1 See_Comment Negative: < 0.8 (test code = Indeterminate: 0.8 - 59887-7) 0.9 Positive: > 0.9 HCV antibody al one does not differentiate between previou s resolved infect ion and active infection. The CDC and current cli nical guidelines nj mmend that a positive HCV antibody result be followed up wit h an HCV RNA test to support the diagnosis of ac [place] HCV infection. [facility] offers Hepatitis C Vir us (HCV) RNA, Diagnosis, YEVGENIY (922324) and Hepatitis C Vir us (HCV) Antibody with reflex to Quantitative Real-time PCR (095176). [Auto mated message] The sy stem which generated this result transmit gagan reference range : 0.0 - 0.9 s/co rati o. The reference r maksim was not used to interpret this result as normal/abnormal . BINDU (test code = Performed at: BINDU) - Lab[address] [id number] Director: Pedro Mcduffie MD, Phone: [phone] [facility] [id number] 13:11:00 Test Item Value Reference Range Interpretation Comments Hepatitis C Ab 0.1 See_Comment Negative: < 0.8 (test code = Indeterminate: 0.8 - 82158-3) 0.9 Positive: > 0.9 HCV antibody al one does not differentiate between previou s resolved infect ion and active infection. The CDC and current cli nical guidelines jn mmend that a positive HCV antibody result be followed up wit h an HCV RNA test to support the diagnosis of ac [place] HCV infection. [facility] us (HCV) RNA, Diagnosis, YEVGENIY (330749) and Hepatitis C Vir us (HCV) Antibody with reflex to Quantitative Real-time PCR (343177). [Automated mess age] The system whic h generated this result transmit gagan reference range : 0.0 - 0.9 s/co rati o. The reference r maksim was not used to interpret this result as normal/abnormal . BINDU (test code = Performed at: BINDU) - Lab[address] [id number] Director: Pedro Mcduffie MD, Phone: [phone] [facility] [Presence] in Respiratory specimen by YEVGENIY with probe [id number] 17:33:22 Test Item Value Reference Range Interpretation Comments SARS-CoV-2 (COVID-19) RNA Not detected Not-Detected [Presence] in Respiratory specimen by YEVGENIY with probe detection (test code = 50555-2) Whether patient is employed in a healthcare setting (test code = 90992-1) Whether the patient has symptoms related to condition of interest (test code = 41115-5) Patient was hospitalized because of this condition (test code = 37115-1) Whether the patient was admitted to intensive care unit (ICU) for condition of interest (test code = 12692-3) Whether patient resides in a congregate care setting (test code = 27286-4) [facility] RNA [Presence] in Respiratory specimen by YEVGENIY with probe [id number] 12:46:53 Test Item Value Reference Range Interpretation Comments SARS-CoV-2 (COVID-19) RNA Not detected Not-Detected [Presence] in Respiratory specimen by YEVGENIY with probe detection (test code = 03612-7) [facility]th[facility] Time and [id number] 14:12:59 Test Item Value Reference Range Interpretation Comments Prothrombin Time (test code = 10.9 seconds 9.0-12.0 Prothrombin Time) INR (test code = INR) 1.0 ratio 0.9-1.2 Partial Thromboplastin [id number] 14:12:59 Test Item Value Reference Range Interpretation Comments Partial Thromboplastin Time 26.7 seconds 24.0-35.0 (test code = Partial Thromboplastin Time) CT Brain/Head w/o [id number] 14:10:41Patient: TELMA GALVAN Date/Time10/07/2019 13:55 CDTReason for ExamSyncopeReportEXAMI NATION: CT BRAIN WITHOUT CONTRASTCOMPARISON: CT head without contrast 10/01/2019; MRI brain with and without contrast 08/16/2016CLINICAL INFORMATION: Syncope. The study was performed within 24 hours of the patient's arrival at the hospital.TECHNIQUE: Axial images of the brain were obtained without contrast administration. The ventricles are normal in size and configuration. Multiplanar reformatted images were obtained in the coronal sagittal planes. ALARA techniques utilized.FINDINGS:Mild/moderate compensatory dilatation of ventricles with mild/moderate prominence of the sulci. Petty-white matter interface is preserved. No intra-cranial hemorrhage or mass-effect. No extra-axial fluid collections. No midline shift. No acute territorial vascular insults. Moderate/severe supratentorial deep matter paraventricular confluent hypodensities. Physiologic calcifications of the pineal gland. Osseous structures are grossly intact. Diffuse osseous demineralization. Partially visualized right maxillary sinus retention cyst of the caudal aspect. Remainder of the paranasal sinuses are otherwise clear. Mastoid air cells are well aerated. Globes are unremarkable.IMPRESSION:1. No acute intracranial abnormalities.2. Mild/moderate generalized volume loss.3. Moderate/severe deep white matter chronic microvascular ischemic changes. Final Dictated by: MD Lorna, SamerDictated DT/TM: 10/07/2019 2:06 pmSigned by: MD Lorna, SamerSigned (Electronic Signature): 10/07/2019 2:10 pmMagnesium Level 2019-10-07 14:08:15 Test Item Value Reference Range Interpretation Comments Magnesium Level (test code = 2.0 mg/dL 1.6-2.6 Magnesium Level) Comprehensive Metabolic [id number] 14:08:14 Test Item Value Reference Range Interpretation Comments Sodium Level (test code = 129 mmol/L 136-145 L Sodium Level) Potassium Level (test code = 4.6 mmol/L 3.5-5.1 Potassium Level) Chloride Level (test code = 98 mmol/L 98-107 Chloride Level) CO2 (test code = CO2) 25 mmol/L 21-32 Anion Gap (test code = Anion 6 mmol/L 7-16 L Gap) BUN (test code = BUN) 7 mg/dL 7-18 Creatinine Level (test code = 0.6 mg/dL 0.6-1.0 Creatinine Level) Glucose Level (test code = 122 mg/dL 74-106 H Glucose Level) Calcium Level (test code = 8.2 mg/dL 8.5-10.1 L Calcium Level) Alk Phos (test code = Alk Phos) 92 IntlUnit/L 50-136 Bilirubin Total (test code = 0.5 mg/dL 0.2-1.0 Bilirubin Total) Albumin Level (test code = 3.2 g/dL 3.4-5.0 L Albumin Level) Protein Total (test code = 6.3 g/dL 6.4-8.2 L Protein Total) ALT (test code = ALT) 11 IntlUnit/L 12-78 L AST (test code = AST) 18 IntlUnit/L 15-37 Comprehensive Metabolic [id number] 14:08:14 Test Item Value Reference Range Interpretation Comments Sodium Level (test code = 129 mmol/L 136-145 L Sodium Level) Potassium Level (test code 4.6 mmol/L 3.5-5.1 = Potassium Level) Chloride Level (test code 98 mmol/L 98-107 = Chloride Level) CO2 (test code = CO2) 25 mmol/L 21-32 Anion Gap (test code = 6 mmol/L 7-16 L Anion Gap) BUN (test code = BUN) 7 mg/dL 7-18 Creatinine Level (test 0.6 mg/dL 0.6-1.0 code = Creatinine Level) Glucose Level (test code = 122 mg/dL 74-106 H Glucose Level) Calcium Level (test code = 8.2 mg/dL 8.5-10.1 L Calcium Level) Alk Phos (test code = Alk 92 IntlUnit/L 50-136 Phos) Bilirubin Total (test code 0.5 mg/dL 0.2-1.0 = Bilirubin Total) Albumin Level (test code = 3.2 g/dL 3.4-5.0 L Albumin Level) Protein Total (test code = 6.3 g/dL 6.4-8.2 L Protein Total) ALT (test code = ALT) 11 IntlUnit/L 12-78 L AST (test code = AST) 18 IntlUnit/L 15-37 eGFR AA (test code = eGFR >60 mL/min/1.73 m2 N AA) Comprehensive Metabolic [id number] 14:08:14 Test Item Value Reference Range Interpretation Comments Sodium Level (test code = 129 mmol/L 136-145 L Sodium Level) Potassium Level (test code 4.6 mmol/L 3.5-5.1 = Potassium Level) Chloride Level (test code 98 mmol/L 98-107 = Chloride Level) CO2 (test code = CO2) 25 mmol/L 21-32 Anion Gap (test code = 6 mmol/L 7-16 L Anion Gap) BUN (test code = BUN) 7 mg/dL 7-18 Creatinine Level (test 0.6 mg/dL 0.6-1.0 code = Creatinine Level) Glucose Level (test code = 122 mg/dL 74-106 H Glucose Level) Calcium Level (test code = 8.2 mg/dL 8.5-10.1 L Calcium Level) Alk Phos (test code = Alk 92 IntlUnit/L 50-136 Phos) Bilirubin Total (test code 0.5 mg/dL 0.2-1.0 = Bilirubin Total) Albumin Level (test code = 3.2 g/dL 3.4-5.0 L Albumin Level) Protein Total (test code = 6.3 g/dL 6.4-8.2 L Protein Total) ALT (test code = ALT) 11 IntlUnit/L 12-78 L AST (test code = AST) 18 IntlUnit/L 15-37 eGFR AA (test code = eGFR >60 mL/min/1.73 m2 N AA) eGFR Non-AA (test code = >60 mL/min/1.73 m2 N eGFR Non-AA) Automated [id number] 14:00:47 Test Item Value Reference Range Interpretation Comments Neutro Auto (test code = Neutro Auto) 71.3 % N Lymph Auto (test code = Lymph Auto) 20.6 % N [place] Auto (test code = [place] Auto) 7.3 % N Eos, Auto (test code = Eos, Auto) 0.1 % N Basophil Auto (test code = Basophil 0.4 % N Auto) Neutro Absolute (test code = Neutro 6.5 x10 2.7-7.3 Absolute) Lymph Absolute (test code = Lymph 1.9 x10 0.8-3.5 Absolute) [place] Absolute (test code = [place] 0.7 x10 0.3-0.9 Absolute) Eos Absolute (test code = Eos 0.0 x10 0.0-0.3 Absolute) Baso Absolute (test code = Baso 0.0 x10 0.0-0.1 Absolute) IG [id number] 14:00:47 Test Item Value Reference Range Interpretation Comments IG (test code = IG) 0 % 0-5 IG Abs (test code = IG Abs) 0 x10 N Complete Blood Count with [id number] 14:00:46 Test Item Value Reference Range Interpretation Comments WBC (test code = WBC) 9.1 x10 4.8-10.8 RBC (test code = RBC) 4.22 x10 4.20-5.50 Hgb (test code = Hgb) 11.9 g/dL 12.0-16.0 L MCV (test code = MCV) 88.9 fL 80.0-95.0 Hct (test code = Hct) 37.5 % 35.0-47.0 MCHC (test code = MCHC) 31.7 g/dL 31.0-36.0 RDW (test code = RDW) 17.7 % 11.5-14.5 N MCH (test code = MCH) 28.2 pg 26.0-32.0 Platelets (test code = 279 x10 140-440 Platelets) MPV (test code = MPV) 9.1 fL 7.5-11.2 Slide Review (test code Auto N Resu lt created by = Slide Review) GL_SET_SLIDE _REVIEW_A UTO XR Chest 1 View [id number] 13:50:28Patient: TELMA GALVAN Date/Time10/07/2019 13:43 CDTReason for ExamDifficulty breath ingReportEXAM: Chest, 1 View at 1336.TECHNIQUE: AP semiupright view.COMPARISON: Chest x-ray 10/03/2019HISTORY: Dyspnea and syncopeFINDINGS: Cardiac size and pulmonary vascularity are within normal limits for AP technique. No infiltrate or pleural effusion is seen. Unchanged left humeral neck impaction chronic fracture deformity. Osseous structures are otherwise grossly intact. Diffuse osseous demineralization.IMPRESSION:1. No radiographically active cardiopulmonary disease.2. Diffuse osseous demineralization. Final Dictated by: MD Lorna, SamerDictated DT/TM: 10/07/2019 1:48 pmSigned by: MD Lorna, SamerSigned (Electronic Signature): 10/07/2019 1:50 pmBasi Metabolic [id number] 08:52:12 Test Item Value Reference Range Interpretation Comments Sodium Level (test code = Sodium 132 mmol/L 136-145 L Level) Potassium Level (test code = 4.4 mmol/L 3.5-5.1 Potassium Level) Chloride Level (test code = 103 mmol/L 98-107 Chloride Level) CO2 (test code = CO2) 20 mmol/L 21-32 L Anion Gap (test code = Anion Gap) 9 mmol/L 7-16 BUN (test code = BUN) 4 mg/dL 7-18 L Creatinine Level (test code = 0.4 mg/dL 0.6-1.0 L Creatinine Level) Glucose Level (test code = Glucose 133 mg/dL 74-106 H Level) Calcium Level (test code = Calcium 8.3 mg/dL 8.5-10.1 L Level) Basic Metabolic [id number] 08:52:12 Test Item Value Reference Range Interpretation Comments Sodium Level (test code = 132 mmol/L 136-145 L Sodium Level) Potassium Level (test code 4.4 mmol/L 3.5-5.1 = Potassium Level) Chloride Level (test code 103 mmol/L 98-107 = Chloride Level) CO2 (test code = CO2) 20 mmol/L 21-32 L Anion Gap (test code = 9 mmol/L 7-16 Anion Gap) BUN (test code = BUN) 4 mg/dL 7-18 L Creatinine Level (test 0.4 mg/dL 0.6-1.0 L code = Creatinine Level) Glucose Level (test code = 133 mg/dL 74-106 H Glucose Level) Calcium Level (test code = 8.3 mg/dL 8.5-10.1 L Calcium Level) eGFR AA (test code = eGFR >60 mL/min/1.73 m2 N AA) Basic Metabolic [id number] 08:52:12 Test Item Value Reference Range Interpretation Comments Sodium Level (test code = 132 mmol/L 136-145 L Sodium Level) Potassium Level (test code 4.4 mmol/L 3.5-5.1 = Potassium Level) Chloride Level (test code 103 mmol/L 98-107 = Chloride Level) CO2 (test code = CO2) 20 mmol/L 21-32 L Anion Gap (test code = 9 mmol/L 7-16 Anion Gap) BUN (test code = BUN) 4 mg/dL 7-18 L Creatinine Level (test 0.4 mg/dL 0.6-1.0 L code = Creatinine Level) Glucose Level (test code = 133 mg/dL 74-106 H Glucose Level) Calcium Level (test code = 8.3 mg/dL 8.5-10.1 L Calcium Level) eGFR AA (test code = eGFR >60 mL/min/1.73 m2 N AA) eGFR Non-AA (test code = >60 mL/min/1.73 m2 N eGFR Non-AA) Complete Blood Count with [id number] 08:30:06 Test Item Value Reference Range Interpretation Comments WBC (test code = WBC) 6.1 x10 4.8-10.8 RBC (test code = RBC) 3.83 x10 4.20-5.50 L Hgb (test code = Hgb) 10.9 g/dL 12.0-16.0 L Hct (test code = Hct) 34.5 % 35.0-47.0 L MCV (test code = MCV) 90.1 fL 80.0-95.0 RDW (test code = RDW) 17.9 % 11.5-14.5 N MCHC (test code = MCHC) 31.6 g/dL 31.0-36.0 MCH (test code = MCH) 28.5 pg 26.0-32.0 Platelets (test code = 211 x10 140-440 Platelets) MPV (test code = MPV) 9.3 fL 7.5-11.2 Slide Review (test code Auto N Resu lt created by = Slide Review) GL_SET_SLIDE _REVIEW_A UTO Automated [id number] 08:30:06 Test Item Value Reference Range Interpretation Comments Neutro Auto (test code = Neutro Auto) 67.1 % N Lymph Auto (test code = Lymph Auto) 25.5 % N [place] Auto (test code = [place] Auto) 6.8 % N Basophil Auto (test code = Basophil 0.3 % N Auto) Neutro Absolute (test code = Neutro 4.1 x10 2.7-7.3 Absolute) Lymph Absolute (test code = Lymph 1.6 x10 0.8-3.5 Absolute) [place] Absolute (test code = [place] 0.4 x10 0.3-0.9 Absolute) Baso Absolute (test code = Baso 0.0 x10 0.0-0.1 Absolute) IG [id number] 08:30:06 Test Item Value Reference Range Interpretation Comments IG (test code = IG) 0 % 0-5 IG Abs (test code = IG Abs) 0 x10 N POC [id number] 12:41:57 Test Item Value Reference Range Interpretation Comments Glucose POC (test 114 mg/dL 74-106 H POC Glucos e used on code = Glucose POC) critical ly ill patients is considered " off-label use" and has no t been cleared or appr kayla by the FDA. Altern ative testing methods should be considered i f the patient is crit ically ill. Automated [id number] 13:36:53 Test Item Value Reference Range Interpretation Comments Neutro Auto (test code = Neutro Auto) 79.9 % N Lymph Auto (test code = Lymph Auto) 15.2 % N [place] Auto (test code = [place] Auto) 4.2 % N Basophil Auto (test code = Basophil 0.3 % N Auto) Neutro Absolute (test code = Neutro 7.7 x10 2.7-7.3 H Absolute) Lymph Absolute (test code = Lymph 1.5 x10 0.8-3.5 Absolute) [place] Absolute (test code = [place] 0.4 x10 0.3-0.9 Absolute) Baso Absolute (test code = Baso 0.0 x10 0.0-0.1 Absolute) IG [id number] 13:36:53 Test Item Value Reference Range Interpretation Comments IG (test code = IG) 0 % 0-5 IG Abs (test code = IG Abs) 0 x10 N Complete Blood Count with [id number] 13:36:52 Test Item Value Reference Range Interpretation Comments WBC (test code = WBC) 9.7 x10 4.8-10.8 RBC (test code = RBC) 4.84 x10 4.20-5.50 Hgb (test code = Hgb) 13.8 g/dL 12.0-16.0 MCV (test code = MCV) 88.0 fL 80.0-95.0 Hct (test code = Hct) 42.6 % 35.0-47.0 MCHC (test code = MCHC) 32.4 g/dL 31.0-36.0 RDW (test code = RDW) 17.7 % 11.5-14.5 N MCH (test code = MCH) 28.5 pg 26.0-32.0 Platelets (test code = 306 x10 140-440 Platelets) MPV (test code = MPV) 9.2 fL 7.5-11.2 Slide Review (test code Auto N Resu lt created by = Slide Review) GL_SET_SLIDE _REVIEW_A UTO Basic Metabolic [id number] 13:01:14 Test Item Value Reference Range Interpretation Comments Sodium Level (test code = Sodium 130 mmol/L 136-145 L Level) Potassium Level (test code = 3.9 mmol/L 3.5-5.1 Potassium Level) Chloride Level (test code = 98 mmol/L 98-107 Chloride Level) CO2 (test code = CO2) 24 mmol/L 21-32 Anion Gap (test code = Anion Gap) 8 mmol/L 7-16 BUN (test code = BUN) 6 mg/dL 7-18 L Creatinine Level (test code = 0.6 mg/dL 0.6-1.0 Creatinine Level) Glucose Level (test code = Glucose 118 mg/dL 74-106 H Level) Calcium Level (test code = Calcium 9.1 mg/dL 8.5-10.1 Level) Basic Metabolic [id number] 13:01:14 Test Item Value Reference Range Interpretation Comments Sodium Level (test code = 130 mmol/L 136-145 L Sodium Level) Potassium Level (test code 3.9 mmol/L 3.5-5.1 = Potassium Level) Chloride Level (test code 98 mmol/L 98-107 = Chloride Level) CO2 (test code = CO2) 24 mmol/L 21-32 Anion Gap (test code = 8 mmol/L 7-16 Anion Gap) BUN (test code = BUN) 6 mg/dL 7-18 L Creatinine Level (test 0.6 mg/dL 0.6-1.0 code = Creatinine Level) Glucose Level (test code = 118 mg/dL 74-106 H Glucose Level) Calcium Level (test code = 9.1 mg/dL 8.5-10.1 Calcium Level) eGFR AA (test code = eGFR >60 mL/min/1.73 m2 N AA) Basic Metabolic [id number] 13:01:14 Test Item Value Reference Range Interpretation Comments Sodium Level (test code = 130 mmol/L 136-145 L Sodium Level) Potassium Level (test code 3.9 mmol/L 3.5-5.1 = Potassium Level) Chloride Level (test code 98 mmol/L 98-107 = Chloride Level) CO2 (test code = CO2) 24 mmol/L 21-32 Anion Gap (test code = 8 mmol/L 7-16 Anion Gap) BUN (test code = BUN) 6 mg/dL 7-18 L Creatinine Level (test 0.6 mg/dL 0.6-1.0 code = Creatinine Level) Glucose Level (test code = 118 mg/dL 74-106 H Glucose Level) Calcium Level (test code = 9.1 mg/dL 8.5-10.1 Calcium Level) eGFR AA (test code = eGFR >60 mL/min/1.73 m2 N AA) eGFR Non-AA (test code = >60 mL/min/1.73 m2 N eGFR Non-AA) Urinalysis [id number] 13:00:35 Test Item Value Reference Range Interpretation Comments UA WBC (test code = UA WBC) 0-5 /HPF 0-5 UA RBC (test code = UA RBC) 5-10 /HPF 0-4 A UA Bacteria (test code = UA Negative /HPF Negative Bacteria) UA Squam Epithelial (test code 74-200 /LPF 0-20 A = UA Squam Epithelial) UA Hyal Cast (test code = UA 7-10 /LPF 1-6 A Hyal Cast) Urinalysis with Culture, if [id number] 13:00:35 Test Item Value Reference Range Interpretation Comments UA Color (test code = UA Yellow Yellow Color) UA Appear (test code = Clear Clear UA Appear) UA pH (test code = UA 6.5 pH) UA Spec Grav (test code 1.007 SGU 1.005-1.030 = UA Spec Grav) UA Glucose (test code = Negative Negative UA Glucose) UA Bili (test code = UA Negative Negative Bili) UA Ketones (test code = Negative Negative UA Ketones) UA Blood (test code = UA Trace Negative A Blood) UA Protein (test code = Negative Negative UA Protein) UA Urobilinogen (test 1.0 EU/dL >0.2 code = UA Urobilinogen) UA Nitrite (test code = Negative Negative UA Nitrite) UA Leuk Est (test code = Negative Negative UA Leuk Est) UA Micro Ind? (test code Indicated Not Indicated A Re sult created by = UA Micro Ind?) rule GL_SET_UA_MICRO _IND Prothrombin Time and [id number] 12:46:34 Test Item Value Reference Range Interpretation Comments Prothrombin Time (test code = 10.2 seconds 9.0-12.0 Prothrombin Time) INR (test code = INR) 1.0 ratio 0.9-1.2 Partial Thromboplastin [id number] 12:46:34 Test Item Value Reference Range Interpretation Comments Partial Thromboplastin Time 27.1 seconds 24.0-35.0 (test code = Partial Thromboplastin Time) XR Chest 2 [id number] 12:44:47Patient: TELMA GALVAN Date/Time10/03/2019 12:35 CDTReason for Exampre op;Other (please specify)ReportClinical history: Preoperative respiratory examination for carotid endarterectomy hypertension and tobacco useX-ray chest 2 viewsCorrelation was made with the patient's prior chest x-ray dated 09 13 2019The heart and mediastinum remain within normal limits. Pulmonary vascularity is normal. There are no pulmonary consolidations or pleural effusions. Partially calcified tortuous thoracicaorta is again noted. Kyphodextroscoliosis and spondyloarthropathy changes of the thoracic spine again identified. Old healed right rib fractures again noted. There is a small hiatal hernia. Multiple walker rgical clips demonstrated within the upper abdomen. Partially calcified breast prostheses are noted.IMPRESSION:1. No active cardiopulmonary process. Final Dictated by: MD Mcdaniels Gustavo MDictated DT/TM: 10/03/2019 12:41 pmSigned by: MD Mcdaniels Gustavo MSigned (Electronic Signature): 10/03/2019 12:44 pmTroponin [id number] 16:50:12 Test Item Value Reference Range Interpretation Comments Troponin-I (test code = <0.015 ng/mL 0.010-0.040 Troponin-I) Troponin [id number] 15:33:13 Test Item Value Reference Range Interpretation Comments Troponin-I (test code = <0.015 ng/mL 0.010-0.040 Troponin-I) Comprehensive Metabolic [id number] 14:19:11 Test Item Value Reference Range Interpretation Comments Sodium Level (test code = 130 mmol/L 136-145 L Sodium Level) Potassium Level (test code = 4.4 mmol/L 3.5-5.1 Potassium Level) Chloride Level (test code = 99 mmol/L 98-107 Chloride Level) CO2 (test code = CO2) 22 mmol/L 21-32 Anion Gap (test code = Anion 9 mmol/L 7-16 Gap) BUN (test code = BUN) 7 mg/dL 7-18 Creatinine Level (test code = 0.5 mg/dL 0.6-1.0 L Creatinine Level) Glucose Level (test code = 97 mg/dL 74-106 Glucose Level) Calcium Level (test code = 8.8 mg/dL 8.5-10.1 Calcium Level) Alk Phos (test code = Alk 102 IntlUnit/L 50-136 Phos) Bilirubin Total (test code = 0.4 mg/dL 0.2-1.0 Bilirubin Total) Albumin Level (test code = 3.6 g/dL 3.4-5.0 Albumin Level) Protein Total (test code = 7.2 g/dL 6.4-8.2 Protein Total) ALT (test code = ALT) 12 IntlUnit/L 12-78 AST (test code = AST) 14 IntlUnit/L 15-37 L Comprehensive Metabolic [id number] 14:19:11 Test Item Value Reference Range Interpretation Comments Sodium Level (test code = 130 mmol/L 136-145 L Sodium Level) Potassium Level (test code 4.4 mmol/L 3.5-5.1 = Potassium Level) Chloride Level (test code 99 mmol/L 98-107 = Chloride Level) CO2 (test code = CO2) 22 mmol/L 21-32 Anion Gap (test code = 9 mmol/L 7-16 Anion Gap) BUN (test code = BUN) 7 mg/dL 7-18 Creatinine Level (test 0.5 mg/dL 0.6-1.0 L code = Creatinine Level) Glucose Level (test code = 97 mg/dL 74-106 Glucose Level) Calcium Level (test code = 8.8 mg/dL 8.5-10.1 Calcium Level) Alk Phos (test code = Alk 102 IntlUnit/L 50-136 Phos) Bilirubin Total (test code 0.4 mg/dL 0.2-1.0 = Bilirubin Total) Albumin Level (test code = 3.6 g/dL 3.4-5.0 Albumin Level) Protein Total (test code = 7.2 g/dL 6.4-8.2 Protein Total) ALT (test code = ALT) 12 IntlUnit/L 12-78 AST (test code = AST) 14 IntlUnit/L 15-37 L eGFR AA (test code = eGFR >60 mL/min/1.73 m2 N AA) Comprehensive Metabolic [id number] 14:19:11 Test Item Value Reference Range Interpretation Comments Sodium Level (test code = 130 mmol/L 136-145 L Sodium Level) Potassium Level (test code 4.4 mmol/L 3.5-5.1 = Potassium Level) Chloride Level (test code 99 mmol/L 98-107 = Chloride Level) CO2 (test code = CO2) 22 mmol/L 21-32 Anion Gap (test code = 9 mmol/L 7-16 Anion Gap) BUN (test code = BUN) 7 mg/dL 7-18 Creatinine Level (test 0.5 mg/dL 0.6-1.0 L code = Creatinine Level) Glucose Level (test code = 97 mg/dL 74-106 Glucose Level) Calcium Level (test code = 8.8 mg/dL 8.5-10.1 Calcium Level) Alk Phos (test code = Alk 102 IntlUnit/L 50-136 Phos) Bilirubin Total (test code 0.4 mg/dL 0.2-1.0 = Bilirubin Total) Albumin Level (test code = 3.6 g/dL 3.4-5.0 Albumin Level) Protein Total (test code = 7.2 g/dL 6.4-8.2 Protein Total) ALT (test code = ALT) 12 IntlUnit/L 12-78 AST (test code = AST) 14 IntlUnit/L 15-37 L eGFR AA (test code = eGFR >60 mL/min/1.73 m2 N AA) eGFR Non-AA (test code = >60 mL/min/1.73 m2 N eGFR Non-AA) IG [id number] 13:58:47 Test Item Value Reference Range Interpretation Comments IG (test code = IG) 0 % 0-5 IG Abs (test code = IG Abs) 0 x10 N Complete Blood Count with [id number] 13:58:46 Test Item Value Reference Range Interpretation Comments WBC (test code = WBC) 6.7 x10 4.8-10.8 RBC (test code = RBC) 4.21 x10 4.20-5.50 Hgb (test code = Hgb) 12.1 g/dL 12.0-16.0 Hct (test code = Hct) 36.6 % 35.0-47.0 MCV (test code = MCV) 86.9 fL 80.0-95.0 RDW (test code = RDW) 16.8 % 11.5-14.5 N MCHC (test code = MCHC) 33.1 g/dL 31.0-36.0 MCH (test code = MCH) 28.7 pg 26.0-32.0 Platelets (test code = 308 x10 140-440 Platelets) MPV (test code = MPV) 9.1 fL 7.5-11.2 Slide Review (test code Auto N Resu lt created by = Slide Review) GL_SET_SLIDE _REVIEW_A UTO Automated [id number] 13:58:46 Test Item Value Reference Range Interpretation Comments Neutro Auto (test code = Neutro Auto) 68.8 % N Lymph Auto (test code = Lymph Auto) 27.1 % N [place] Auto (test code = [place] Auto) 3.4 % N Basophil Auto (test code = Basophil 0.4 % N Auto) Neutro Absolute (test code = Neutro 4.6 x10 2.7-7.3 Absolute) Lymph Absolute (test code = Lymph 1.8 x10 0.8-3.5 Absolute) [place] Absolute (test code = [place] 0.2 x10 0.3-0.9 L Absolute) Baso Absolute (test code = Baso 0.0 x10 0.0-0.1 Absolute) CT Brain/Head w/o [id number] 13:38:37Patient: TELMA GALVAN Date/Time09/13/2019 13:24 CDTReason for ExamNumbness/tinglingRe portCT BRAIN WITHOUT CONTRAST:CLINICAL INFORMATION: Decreased sensation, paresthesias. The study wasperformed within 24 hours of the patient's arrival at the hospital.COMPARISON: 08/15/2016COMMENT:Axialimages of the brain were obtained without contrast administration. Radiation dose lowering techniques were used according to ALARA principle.There is prominence of the ventricles, cisterns, and sulci indicating age-related atrophy. There is hypoattenuation of the periventricular white matter tracks indicating chronic ischemic sequela. There is no intracranial hemorrhage or mass effect. There are no extra-axial fluid collections. No evidence of acute cerebral infarction. Bony structures are intact.IMPRESSION:1. Age-related atrophy.2. Chronic white matter ischemic change.3. No acute findings. Final Dictated by: MD Chen Joseph ADictated DT/TM: 09/13/2019 1:35 pmSigned by: MD Chen Joseph ASigned (Electronic Signature): 09/13/2019 1:38 pmXR Chest 2 [id number] 13:28:06Patient: TELMA GALVAN Date/Time09/13/2019 13:10 CDTReason for ExamChest painReportX-ray CHEST 2 VIEWS:HISTORY: Chest pain, shortness of breathCOMPARISON: NoneThe cardiomediastinal silhouette shows no significant abnormality.No pleural fluid or pulmonary infiltrates are identified.Old fracture deformities are seen in the lower right rib cage, left proximal humerus and thoracolumbar spine.IMPRESSION:No active cardiopulmonary process is identified. Final Dictated by: MD Kenney Ramon JulioDictmikaela DT/TM: 09/13/2019 1:26 pmSigned by: MD Kenney Ramon JulioSigned (Electronic Signature): 09/13/2019 1:28 pmMRI BRAIN W/WO [id number] 09:27:31MRI BRAIN W/WO CONTRASTHISTORY: Syncopal episode, left-sided weaknessCOMPARISON: CT brain dated 08/15/2016TECHNIQUE: Multiplanar contrasted MRI of the brain acquired utilizing 15mL IV MultiHance.FINDINGS: Midline is nondisplaced. Generalized atrophy noted withmoderate periventricular and deep white matter signal abnormalities. Noevidence of restricted diffusion. No mass or mass effect. No abnormalenhancement. No acute intracranial blood products or abnormalextra-axial fluid collections present. Cerebellopontine angles andcontents appear unremarkable. Partially empty sella turcica noted.Orbital contents are symmetric. Remote appearing left orbital floorfracture noted without muscular entrapment. Possible retention cystidentified in the right maxillary sinus. Mastoid air cells demonstratemaintained low signal intensity.IMPRESSION: 1. No MR evidence of recent ischemic insult, enhancing intracranialmass, or acute intracranial hemorrhage.2. Atrophy/white matter changes.3. Chronic appearing left orbital floor fracture with suspectedretention cyst right maxillary sinus.MRA HEAD WO [id number] 09:20:45MRA BRAIN:CLINICAL INFORMATION: Syncopal episode and left-sided weakness Brain MRA was performed in multiple projections. There is noabnormality identified of the [place] of [place]. Specifically, there isno evidence of cerebral aneurysm or occlusive disease. The distalinternal carotid and vertebral basilar system is unremarkable as well. There is no abnormality identified of the posterior or middle cerebralarteries. The proximal and anterior cerebral arteries are alsovisualized and are normal.IMPRESSION: No evidence of aneurysm or vascular occlusion.XR CHEST SGL 1V, [id number] 16:47:27XR CHEST SGL 1V, FRONTALDIAGNOSIS: Cough and COPDThe heart and mediastinum are normal. No consolidation or pleural fluidis identified. The bilateral pulmonary infiltrates present on 01/17/2015have resolved.IMPRESSION: Negative portable chest.CT HEAD OR BRAIN WO [id number] 16:29:57CT HEAD OR BRAIN WO CONTRASTDIAGNOSIS: Weakness, slurred speech and facial numbnessCerebral atrophy and chronic white matter ischemia are unchanged since05/06/2015. The midline is not shifted. No intracranial hemorrhage, masseffect, extracerebral collection or evidence of an acute infarct isnoted.Radiation dose lowering techniques were used according to ALARAprinciple.IMPRESSION: Cerebral atrophy and chronic white matter ischemiaunchanged. Notes Date/Time Note Provider Source 2017-04-05 14:[facility] NAME: TELMA GALVAN PHYSICIAN: Nicolas rodriguez M.D. ADMITTED: 08/15/2016 19:4 5:00 MR NUMBER: [id number] DISCHARGED: 08/17/2016 10: 44:00 ADMITTING DIAGNOSES: The patient has hypertensiv e emergency, rule out cerebrovascular accident; history of diabetes me llitus, non-insulin- dependent; history of pancreatic cancer. DISCHARGE DIAGNOSES: Hypertension, controlled; d iabetes mellitus; history of pancreatic cancer. CONSULTATION: None. PROCEDURE: MRI/MRA of the brain with negative fi nding. CHIEF COMPLAINT: Dizziness. HISTORY OF PRESENT ILLNESS: This is a case histo ry of a 61-year-old female with past medical history signi ficant for hypertension, diabetes mellitus, vuh-hziafkm-bze endent, history of pancreatic cancer. The patient referred for the past 3 days she has been dizzy and taken her medication for control of blood pressure, thinking that she was having an episode of hypog lycemia. The patient due to continuation of symptoms with weakness, n umbness and dysarthria, was seen at the emergency room with finding of blood pressure of 180/120. Therefore, CVA with hyperte nsive crisis was entertained for which the patient was evaluated with CAT scan, it was negative. The patient was admitted for observati on for further treatment and management. PAST MEDICAL HISTORY: Significant for above-ment ioned, history of hypertension, diabetes mellitus, jff-smgkxac-lej endent, pancreatic cancer. CURRENT MEDICATIONS: Metoprolol succinate. ALLERGIES: PROCARDIA. PAST SURGICAL HISTORY: Hysterectomy, cholecystec thien, appendectomy, stomach stapling, bladder suspension, breast imp lant. SOCIAL HISTORY: The patient denies smoking, quit smoking, quit drinking about a year ago. Denies history of ill icit drug abuse. FAMILY HISTORY: Noncontributory. REVIEW OF SYSTEMS: As above-mentioned in the his tory of present illness. PHYSICAL EXAMINATION: GENERAL: The patient is awake, alert, oriented, in no apparent distress at the moment of evaluation. VITAL SIGNS: Upon admission, presented with bloo d pressure 180/120, [facility] HISTORY AND PHYSICAL respiratory rate of 18, pulse of 70 on room air. HEENT: Normocephalic, atraumatic. NECK: No JVD. CHEST: Decreased breath sounds at the base of eug[place] th lungs. HEART: Regular rate and rhythm. ABDOMEN: Soft. No tenderness. Positive bowel goran nds. EXTREMITIES: No edema. No lesions. NEUROLOGIC: No gross focal deficits. Cranial ner ves II through XII are grossly intact. LABORATORY EVALUATION: The patient upon admissio n was evaluated with chest x-ray with finding of negative portable ch est. CT of the head was done with cerebral atrophy and chronic white matter ischemia changes. WBC of 8.7, hemoglobin of 15.6, hematoc rit of 46.1, MCH of 31.0, platelets of 216. PTT of 29.1, PT of 10.9, INR 1.0, ammonia level of 22. Troponin I less than 0.015. Sodium 129, potassium 4.4, chloride 97, CO2 of 23, glucose 97, BUN of 4, cr eatinine of 0.5, calcium 8.7, total protein of 7.5, albumin of 4. 0, bilirubin total 0.4, alkaline phosphatase 173, AST of 18, ALT of 16. Urinalysis, color yellow, clarity clear, specific gravity 1.004, p H of 7.0, leukocyte esterase trace, wbc's 6 to 10, rbc's 0 to 4, anup teria 4+. Urine culture positive for Morganella morganii. MRI/MRA was done with negative findings. ASSESSMENT: The patient with hypertensive crisis , emergency, negative for ischemic cerebrovascular accident, hypertens ion, diabetes mellitus. PLAN: The patient was started on IV antibiotics, also on blood pressure medication. The patient's blood pressur e controlled; therefore, is being discharged home with metopro lol succinate 25 mg p.o. daily. The patient also was given cyclobenz aprine, also will be given meloxicam 7.5 mg p.o. daily. The patient w ill be followed up at the office in 2 weeks for further assessment and treatment of her condition. [facility] HISTORY AND PHYSICAL Nicolas Roach M.D. CC: KIMBERLY/[id number] EST EST GUADALUPE /NTS Doc#: [id number] Electronically Authenticated and Edited by: Nicolas Roach M.D. On 08/18/2016 08:27 AM CDT
[2022-11-26 12:48] LABS: Absolute Lymphocytes (CBC) 1.8 K/uL (0.7-4.9); Hematocrit 43.5 % (36.0-45.0); Lymphocytes % 17.2 % (15.3-44.8); MCV 81.9 fL (80-100); MPV 8.1 fL (7.6-11.3); Platelets 302 thou/uL (152-406); RBC Red Blood Cell Count 5.31 M/uL (3.86-4.86)
[2022-11-26] MEDS ORDERED: ASPIRIN 81 MG CHEWABLE TABLET ONE (12:57)
[2022-11-26] MEDS ORDERED: FAMOTIDINE 20 MG/2 ML VIAL IV ONE (12:57)
[2022-11-26] MEDS ORDERED: ONDANSETRON 4 MG/2 ML VIAL ONE (12:57)
[2022-11-26] MEDS ORDERED: NA CHLORIDE 0.9% 1,000 ML ONE (12:57)
[2022-11-26 13:09] LABS: Albumin 4.2 g/dL (3.4-5.0); Bilirubin Direct 0.2 mg/dL (0-0.2); Bilirubin Indirect, Calculated 0.6 mg/dL (0.2-0.8); Bilirubin Total 0.8 mg/dL (0.2-1.0); Troponin High Sensitivity 34.1 pg/mL (<58.9)
--- NOTE | 2022-11-26 13:12 | RAD REPORT ---
EXAM DESCRIPTION: Deion Single View11/26/2022 12:56 pm CLINICAL HISTORY: Chest pain COMPARISON: none FINDINGS: The lungs appear clear of acute infiltrate. The heart is normal size IMPRESSION: No acute abnormalities displayed
[2022-11-26 13:21] LABS: Protime INR 1.19
[2022-11-26] MEDS ORDERED: METOPROLOL TARTRATE 5 MG/5 ML INJ IV ONE (13:30)
[2022-11-26] MEDS ORDERED: NS KCL 20MEQ 1,000 ML IV ONE (13:30)
[2022-11-26] MEDS ORDERED: KCL 20 MEQ/100 mL IVPB 100 ML IV ONE (13:31)
--- NOTE | 2022-11-26 14:02 | RAD REPORT ---
EXAM DESCRIPTION: CT - Chest Abd Pelvis Wo Con - 11/26/2022 1:29 pm CLINICAL HISTORY: Chest and abdominal pain COMPARISON: None TECHNIQUE: Computed axial tomography of the chest, abdomen and pelvis was obtained. Oral contrast wa s given. IV contrast was not requested. All CT scans are performed using dose optimization technique as appropriate and may include automated exposure control or mA/KV adjustment according to patient size. FINDINGS: The evaluation of mediastinum, tacos, vessels and solid organs is limited secondary to the lack of IV contrast administration The lungs are clear No mediastinal or hilar lymphadenopathy is seen. A pleural effusion is not present. A pericardial effusion is not seen. Coronary arterial calcifications. Bilateral calcified breast implants L The liver, spleen, pancreas, adrenals and kidneys appear grossly normal Postsurgical changes involve the stomach. Cholecystectomy Hysterectomy. No adnexal mass Compression deformities involve T11, T12, L1 and L2 vertebral bodies. They probably are old Calcification left renal artery probably resulting in a high-grade stenosis There is no evidence of diverticulitis. IMPRESSION: No acute abnormality is displayed
--- NOTE | 2022-11-26 14:05 | RAD REPORT ---
EXAM DESCRIPTION: CT - Head Brain Wo Cont - 11/26/2022 1:31 pm CLINICAL HISTORY: Headache COMPARISON: None TECHNIQUE: Computed axial tomography of the head was obtained. IV contrast was not requested. All CT scans are performed using dose optimization technique as appropriate and may include automated exposure control or mA/KV adjustment according to patient size. FINDINGS: An intracranial bleed is not seen The ventricles are normal in caliber No extra-axial fluid collection is noted. Mild to moderate low-density areas within periventricular, deep and subcortical white matter likely r epresent ischemic changes secondary to small vessel disease. Fluid within the sinuses/ mastoids is not seen. IMPRESSION: No acute intracranial abnormality is seen If patient's symptoms persist MRI of the brain would be recommended
--- NOTE | 2022-11-26 14:21 | EDPHYS ---
Physician Documentation [facility] Name: Reina Hartley Age: 67 yrs Sex: Female : 1955 Arrival Date: 11/26/2022 Time: 12:21 Bed 16 Private MD: ED Physician Elias Gamez HPI: 11/26 14:05 This 67 yrs old Female presents to ER via Ambulatory with complaints of Chest savage Pain, Nausea/Vomiting, Dizziness. Historical: - Allergies: 12:38 Procardia; hb - Home Meds: 12:38 None [Active]; hb - PMHx: 12:38 Hypertension; hb 12:39 Anemia; hb - PSHx: 12:39 Cardiac Stent; hb - Immunization history:: Adult Immunizations up to date. - Social history:: Smoking status: Patient reports the use of cigarette tobacco products. ROS: 14:11 Constitutional: Negative for fever, chills, and weight loss, Eyes: Negative for injury, savage pain, redness, and discharge, ENT: Negative for injury, pain, and discharge, Neck: Negative for injury, pain, and swelling, Respiratory: Negative for shortness of breath, cough, wheezing, and pleuritic chest pain, Back: Negative for injury and pain, : Negative for injury, bleeding, discharge, and swelling, MS/Extremity: Negative for injury and deformity, Skin: Negative for injury, rash, and discoloration, Neuro: Negative for headache, weakness, numbness, tingling, and seizure, Psych: Negative for depression, anxiety, suicide ideation, homicidal ideation, and hallucinations, Allergy/Immunology: Negative for hives, rash, and allergies, Endocrine: Negative for neck swelling, polydipsia, polyuria, polyphagia, and marked weight changes, Hematologic/Lymphatic: Negative for swollen nodes, abnormal bleeding, and unusual bruising. 14:11 Cardiovascular: Positive for chest pain, of the chest. 14:11 Respiratory: Positive for cough. 14:11 Abdomen/GI: Positive for abdominal pain, nausea and vomiting. Exam: 14:11 Constitutional: This is a well developed, well nourished patient who is awake, alert, savage and in no acute distress. Head/Face: Normocephalic, atraumatic. Eyes: Pupils equal round and reactive to light, extra-ocular motions intact. Lids and lashes normal. Conjunctiva and sclera are non-icteric and not injected. Cornea within normal limits. Periorbital areas with no swelling, redness, or edema. ENT: Nares patent. No nasal discharge, no septal abnormalities noted. Tympanic membranes are normal and external auditory canals are clear. Oropharynx with no redness, swelling, or masses, exudates, or evidence of obstruction, uvula midline. Mucous membranes moist. Neck: Trachea midline, no thyromegaly or masses palpated, and no cervical lymphadenopathy. Supple, full range of motion without nuchal rigidity, or vertebral point tenderness. No Meningismus. Chest/axilla: Normal chest wall appearance and motion. Nontender with no deformity. No lesions are appreciated. Cardiovascular: Regular rate and rhythm with a normal S1 and S2. No gallops, murmurs, or rubs. Normal PMI, no JVD. No pulse deficits. Respiratory: Lungs have equal breath sounds bilaterally, clear to auscultation and percussion. No rales, rhonchi or wheezes noted. No increased work of breathing, no retractions or nasal flaring. Back: No spinal tenderness. No costovertebral tenderness. Full range of motion. Female : Normal external genitalia. Skin: Warm, dry with normal turgor. Normal color with no rashes, no lesions, and no evidence of cellulitis. MS/ Extremity: Pulses equal, no cyanosis. Neurovascular intact. Full, normal range of motion. Neuro: Awake and alert, GCS 15, oriented to person, place, time, and situation. Cranial nerves II-XII grossly intact. Motor strength 5/5 in all extremities. Sensory grossly intact. Cerebellar exam normal. Normal gait. Psych: Awake, alert, with orientation to person, place and time. Behavior, mood, and affect are within normal limits. 14:11 ECG was reviewed by the Attending Physician. 14:11 Abdomen/GI: Inspection: abdomen appears normal, Bowel sounds: normal, Palpation: mild abdominal tenderness, in all quadrants, Liver: no appreciated palpable abnormalities, Hernia: not appreciated. Vital Signs: 12:30 BP 156 / 101; Pulse 105; Resp 16; Temp 98.4(O); Pulse Ox 97% on R/A; Weight 63.5 kg; hb Height 5 ft. 2 in. ; Pain 8/10; 13:15 BP 175 / 105; Pulse 96; Resp 16; Pulse Ox 98% on R/A; mb9 13:45 BP 168 / 113; Pulse 71; Resp 18; Pulse Ox 100% on R/A; mb9 14:15 BP 143 / 82; Pulse 63; Resp 18; Pulse Ox 100% on R/A; mb9 15:54 BP 158 / 83; Pulse 67; Resp 18; Pulse Ox 98% on R/A; Pain 0/10; mb9 16:22 BP 144 / 82; Pulse 66; Resp 18; Pulse Ox 100% on R/A; mb9 12:30 Body Mass Index 25.60 (63.50 kg, 157.48 cm) hb 12:30 Pain Scale: Adult hb 15:54 Pain Scale: Adult mb9 MDM: 12:34 Patient medically screened. savage 14:13 Differential diagnosis: abnormal EKG, acute myocardial infarction, acute pericarditis, savage anxiety, chest wall pain, Cholelithiasis costochondritis, esophagitis, gastritis, hiatal hernia, mitral valve prolapse, myocarditis, pancreatitis, pericarditis, pleurisy, stable angina, thoracic aortic disection, unstable angina. HEART Score: ECG: Non specific repolarization disturbance / LBTB / PM (1), Age: > or = 65 years (2), Risk Factors: > or = 3 Risk factors for atherosclerotic disease (2), [Hypercholesterolemia] [Hypertension] [+ Family HX] Troponin: < or = 1 x Normal Limit (0). The patient was given aspirin in the Emergency Department. KYLE Risk Score: 1 - patient's age is greater or equal to 65 years, 1 - Three or more CAD risk factors, 1- Known CAD, TOTAL SCORE = 3. Data reviewed: vital signs, nurses notes, lab test result(s), EKG, radiologic studies, CT scan, plain films. Consideration of Admission/Observation Patient was admitted/placed on observation. Escalation of care including admission/observation considered. I considered the following discharge prescriptions or medication management in the emergency department Medications were administered in the Emergency Department. See MAR. Independent interpretation of the following test(s) in the Emergency Department EKG: See my EKG interpretation above. Test considered but Not performed: MRI: NO ABD USG. Care significantly affected by the following chronic conditions: Hypertension, ANEMIA. Counseling: I had a detailed discussion with the patient and/or guardian regarding the historical points, exam findings, and any diagnostic results supporting the discharge/admit diagnosis, the presence of at least one elevated blood pressure reading (>120/80) during this emergency department visit, lab results, radiology results, the need for further work-up and treatment in the hospital. 11/26 12:36 Order name: Basic Metabolic Panel; Complete Time: 13:10 [facility] 11/26 12:36 Order name: CBC with Diff; Complete Time: 13:10 [facility] 11/26 12:36 Order name: LFT's; Complete Time: 13:10 [facility] 11/26 12:36 Order name: Magnesium; Complete Time: 13:10 [facility] 11/26 12:36 Order name: NT PRO-BNP; Complete Time: 13:10 [facility] 11/26 12:36 Order name: PT-INR; Complete Time: 13:53 [facility] 11/26 12:36 Order name: Troponin HS; Complete Time: 13:10 [facility] 11/26 12:36 Order name: Lipase; Complete Time: 13:10 [facility] 11/26 12:36 Order name: Urinalysis w/ reflexes [facility] 11/26 13:13 Order name: Urine Osmolality [facility] 11/26 13:13 Order name: Urine Sodium Random [facility] 11/26 13:13 Order name: Osmolality, Serum [facility] 11/26 14:06 Order name: Lactate w/ 2H reflex if indic.; Complete Time: 15:21 11/26 15:22 Order name: BMP [facility] 11/26 15:59 Order name: CBC with Automated Diff [facility] 11/26 15:59 Order name: CBC with Automated Diff [facility] 11/26 15:59 Order name: Comprehensive Metabolic Panel [facility] 11/26 15:59 Order name: Comprehensive Metabolic Panel [facility] 11/26 15:59 Order name: Magnesium [facility] 11/26 15:59 Order name: Magnesium [facility] 11/26 15:59 Order name: Phosphorus [facility] 11/26 15:59 Order name: Phosphorus [facility] 11/26 12:36 Order name: XRAY Chest (1 view); Complete Time: 13:15 savage 11/26 13:13 Order name: CT Chest Abdomen Pelvis W/O Contrast; Complete Time: 14:04 11/26 13:26 Order name: CT Head Brain wo Cont; Complete Time: 14:26 11/26 12:36 Order name: EKG; Complete Time: 12:37 11/26 15:58 Order name: CONS Physician Consult [facility] 11/26 15:59 Order name: NPO; Complete Time: 16:02 [facility] 11/26 12:36 Order name: Cardiac monitoring; Complete Time: 12:42 [facility] 11/26 12:36 Order name: EKG - Nurse/Tech; Complete Time: 12:42 [facility] 11/26 12:36 Order name: IV Saline Lock; Complete Time: 12:42 [facility] 11/26 12:36 Order name: Labs collected and sent; Complete Time: 12:42 [facility] 11/26 12:36 Order name: O2 Per Protocol; Complete Time: 12:42 [facility] 11/26 12:36 Order name: O2 Sat Monitoring; Complete Time: 12:42 [facility] 11/26 14:53 Order name: Straight Cath - Urine; Complete Time: 14:57 [facility] 11/26 15:09 Order name: Maya; Complete Time: 15:16 jl7 EC:11 Rate is 87 beats/min. Rhythm is regular. QRS [place] is Normal. VT interval is normal. QRS savage interval is normal. QT interval is normal. No Q waves. T waves are Normal. No ST changes noted. Clinical impression: NSR w/ Non-specific ST/T Changes and No evidence of ischemia. Interpreted by me. Reviewed by me. Administered Medications: 13:15 Discontinued: NS 0.9% IV 1000 ml IV at 125 ml/hr continuous savage 12:45 Drug: NS 0.9% IV 1000 ml Route: IV; Rate: 125 ml/hr; Site: right forearm; mb9 13:15 Follow up: Response: No adverse reaction; IV Status: Order to discontinue infusion mb9 12:45 Drug: Ondansetron IVP 4 mg Route: IVP; Site: right forearm; mb9 14:53 Follow up: Response: No adverse reaction mb9 12:49 Drug: Famotidine IVP 20 mg Route: IVP; Site: right forearm; mb9 14:54 Follow up: Response: No adverse reaction mb9 12:52 Drug: Aspirin PO Chewable Tablet 324 mg Route: PO; mb9 14:54 Follow up: Response: No adverse reaction mb9 13:35 Drug: NS 0.9% with KCl IV 20 mEq/L 1000 ml Route: IV; Rate: 100 ml/hr; Site: right mb9 forearm; 15:52 Follow up: Response: No adverse reaction; IV Status: Completed infusion mb9 13:38 Drug: Metoprolol IVP 2.5 mg Route: IVP; Site: right forearm; mb9 14:53 Follow up: Response: No adverse reaction mb9 13:45 Drug: NS 0.9% IV 500 ml Route: IV; Rate: bolus; Site: right forearm; mb9 14:53 Follow up: Response: No adverse reaction; IV Status: Completed infusion mb9 13:45 Drug: Potassium Chloride IV 20 mEq Route: IV; Rate: per protocol; Site: right forearm; mb9 13:45 Drug: Metoprolol IVP 2.5 mg Route: IVP; Site: right forearm; mb9 14:54 Follow up: Response: No adverse reaction mb9 14:16 Drug: NS 0.9% IV 500 ml Route: IV; Rate: bolus; Site: left forearm; mb9 15:52 Follow up: Response: No adverse reaction; IV Status: Completed infusion mb9 14:48 Not Given (Hemodynamic Parameters): Metoprolol IVP 2.5 mg IVP once; Hold for SBP <100 mb9 or HR <60. Disposition Summary: 11/26/22 14:20 Hospitalization Ordered Hospitalization Status: Inpatient Admission savage Provider: Alvin Edwards cha [facility] savage Condition: Fair savage Problem: new savage Symptoms: have improved savage Bed/Room Type: Standard savage Room Assignment: 213(11/26/22 16:14) ja1 Diagnosis - Vomiting savage - Dehydration savage - Abdominal pain, Generalized savage - Hypo-osmolality and hyponatremia savage - Hypokalemia savage - Dizziness and giddiness savage - Chest pain, unspecified savage Forms: - Medication Reconciliation Form savage - SBAR form savage - Leadership Thank You Letter savage Signatures: Dispatcher [employer] Elias Cheng MD MD cha Baxter, Heather RN Earl Torres RN RN jl7 Lenard Tam RN RN ja1 Elisa Rangel RN RN mb9 Corrections: (The following items were deleted from the chart) 16:14 14:20 savage howard
--- NOTE | 2022-11-26 14:21 | ER ---
Nurse's Notes [facility] Name: Reina Hartley Age: 67 yrs Sex: Female : 1955 Arrival Date: 11/26/2022 Time: 12:21 Bed 16 Private MD: Diagnosis: Vomiting;Dehydration;Abdominal pain, Generalized;Hypo-osmolality and hyponatremia;Hypokalemia;Dizziness and giddiness;Chest pain, unspecified Presentation: 11/26 12:30 Chief complaint: N/V and abdominal cramping x 7 days, intermittent chest pain x 2 days. hb Not tolerating fluids,. Coronavirus screen: At this time, the client does not indicate any symptoms associated with coronavirus-19. Ebola Screen: No symptoms or risks identified at this time. Initial Sepsis Screen: Does the patient meet any 2 criteria? No. Patient's initial sepsis screen is negative. Does the patient have a suspected source of infection? No. Patient's initial sepsis screen is negative. Risk Assessment: Do you want to hurt yourself or someone else? Patient reports no desire to harm self or others. Onset of symptoms was November 19, 2022. 12:30 Method Of Arrival: Ambulatory hb 12:30 Acuity: ANDREA 3 hb Historical: - Allergies: 12:38 Procardia; hb - Home Meds: 12:38 None [Active]; hb - PMHx: 12:38 Hypertension; hb 12:39 Anemia; hb - PSHx: 12:39 Cardiac Stent; hb - Immunization history:: Adult Immunizations up to date. - Social history:: Smoking status: Patient reports the use of cigarette tobacco products. Screenin:44 [facility] ED Fall Risk Assessment (Adult) History of falling in the last 3 months, mb9 including since admission No falls in past 3 months (0 pts) Confusion or Disorientation No (0 pts) Intoxicated or Sedated No (0 pts) Impaired Gait No (0 pts) Mobility Assist Device Used No (0 pt) Altered Elimination No (0 pt) Score/Fall Risk Level 0 - 2 = Low Risk Oriented to surroundings, Maintained a safe environment, Educated pt \T\ family on fall prevention, incl call for assistance when getting out of bed. Abuse screen: Denies threats or abuse. Nutritional screening: No deficits noted. Tuberculosis screening: No symptoms or risk factors identified. Assessment: 12:43 General: Appears in no apparent distress. Behavior is calm, cooperative. Pain: mb9 Complains of pain in chest and abdomen Pain radiates to left arm Pain currently is 5 out of 10 on a pain scale. Quality of pain is described as throbbing, Pain began 1 day ago. Is intermittent. Neuro: Shane Agitation-Sedation Scale (RASS): 0 - Alert and Calm Level of Consciousness is awake, alert, obeys commands, Oriented to person, place, time, situation, Appropriate for age. Cardiovascular: Reports chest pain, Heart tones S1 S2 present Patient's skin is warm and dry. Respiratory: Airway is patent Respiratory effort is even, unlabored, Respiratory pattern is regular, symmetrical, Breath sounds are clear bilaterally. GI: Abdomen is round non-distended, Bowel sounds present X 4 quads. Abd is soft and non tender X 4 quads. Reports nausea, vomiting. : No signs and/or symptoms were reported regarding the genitourinary system. EENT: No signs and/or symptoms were reported regarding the EENT system. Derm: Skin is pink, warm \T\ dry. Musculoskeletal: Range of motion: intact in all extremities. 13:15 Reassessment: ERP notified of pts BP. New orders at this time. mb9 13:20 Reassessment: pt taken to CT via wheelchair. mb9 13:45 Reassessment: No changes from previously documented assessment. Patient and/or family mb9 updated on plan of care and expected duration. Pain level reassessed. Patient is alert, oriented x 3, equal unlabored respirations, skin warm/dry/pink. 14:45 Reassessment: No changes from previously documented assessment. Patient and/or family mb9 updated on plan of care and expected duration. Pain level reassessed. Patient is alert, oriented x 3, equal unlabored respirations, skin warm/dry/pink. 15:45 Reassessment: No changes from previously documented assessment. Patient and/or family mb9 updated on plan of care and expected duration. Pain level reassessed. Patient is alert, oriented x 3, equal unlabored respirations, skin warm/dry/pink. 16:23 Reassessment: attempted to call report to admitting nurse. mb9 Vital Signs: 12:30 BP 156 / 101; Pulse 105; Resp 16; Temp 98.4(O); Pulse Ox 97% on R/A; Weight 63.5 kg; hb Height 5 ft. 2 in. ; Pain 8/10; 13:15 BP 175 / 105; Pulse 96; Resp 16; Pulse Ox 98% on R/A; mb9 13:45 BP 168 / 113; Pulse 71; Resp 18; Pulse Ox 100% on R/A; mb9 14:15 BP 143 / 82; Pulse 63; Resp 18; Pulse Ox 100% on R/A; mb9 15:54 BP 158 / 83; Pulse 67; Resp 18; Pulse Ox 98% on R/A; Pain 0/10; mb9 16:22 BP 144 / 82; Pulse 66; Resp 18; Pulse Ox 100% on R/A; mb9 12:30 Body Mass Index 25.60 (63.50 kg, 157.48 cm) hb 12:30 Pain Scale: Adult hb 15:54 Pain Scale: Adult mb9 ED Course: 12:27 Patient arrived in ED. mg5 12:30 Elisa Rangel RN is Primary Nurse. mb9 12:33 Elias Gamez MD is Attending Physician. savage 12:38 Triage completed. hb 12:39 Arm band placed on. hb 12:42 Basic Metabolic Panel Sent. mb9 12:42 CBC with Diff Sent. mb9 12:42 LFT's Sent. mb9 12:42 Magnesium Sent. mb9 12:42 NT PRO-BNP Sent. mb9 12:42 PT-INR Sent. mb9 12:42 Troponin HS Sent. mb9 12:42 Inserted saline lock: 22 gauge in right forearm, using aseptic technique. mb9 12:44 Placed in gown. Bed in low position. Call light in reach. Side rails up X 1. Client mb9 placed on continuous cardiac and pulse oximetry monitoring. NIBP monitoring applied. playground monitor on. 12:44 Patient maintains SpO2 saturation greater than 95% on room air. mb9 12:51 No provider procedures requiring assistance completed. mb9 12:58 XRAY Chest (1 view) In Process Unspecified. EDMS 13:09 EKG done, by ED staff, reviewed by Elias Gamez MD. mb9 13:31 CT Chest Abdomen Pelvis W/O Contrast In Process Unspecified. EDMS 13:32 CT Head Brain wo Cont In Process Unspecified. EDMS 14:18 Alvin Edwards MD is Hospitalizing Provider. savage 14:35 Inserted saline lock: 22 gauge in left forearm, using aseptic technique. mb9 15:00 Maya cath inserted, using sterile technique, 16 Fr., by size cutter, balloon inflated, to mb9 gravity drainage, urine specimen collected. returned clear yellow urine. Patient tolerated well. 15:18 Urine Osmolality Sent. jr12 15:18 Urine Sodium Random Sent. jr12 15:18 Osmolality, Serum Sent. jr12 15:18 Urinalysis w/ reflexes Sent. jr12 16:22 Patient admitted, IV remains in place. mb9 Administered Medications: 13:15 Discontinued: NS 0.9% IV 1000 ml IV at 125 ml/hr continuous savage 12:45 Drug: NS 0.9% IV 1000 ml Route: IV; Rate: 125 ml/hr; Site: right forearm; mb9 13:15 Follow up: Response: No adverse reaction; IV Status: Order to discontinue infusion mb9 12:45 Drug: Ondansetron IVP 4 mg Route: IVP; Site: right forearm; mb9 14:53 Follow up: Response: No adverse reaction mb9 12:49 Drug: Famotidine IVP 20 mg Route: IVP; Site: right forearm; mb9 14:54 Follow up: Response: No adverse reaction mb9 12:52 Drug: Aspirin PO Chewable Tablet 324 mg Route: PO; mb9 14:54 Follow up: Response: No adverse reaction mb9 13:35 Drug: NS 0.9% with KCl IV 20 mEq/L 1000 ml Route: IV; Rate: 100 ml/hr; Site: right mb9 forearm; 15:52 Follow up: Response: No adverse reaction; IV Status: Completed infusion mb9 13:38 Drug: Metoprolol IVP 2.5 mg Route: IVP; Site: right forearm; mb9 14:53 Follow up: Response: No adverse reaction mb9 13:45 Drug: NS 0.9% IV 500 ml Route: IV; Rate: bolus; Site: right forearm; mb9 14:53 Follow up: Response: No adverse reaction; IV Status: Completed infusion mb9 13:45 Drug: Potassium Chloride IV 20 mEq Route: IV; Rate: per protocol; Site: right forearm; mb9 13:45 Drug: Metoprolol IVP 2.5 mg Route: IVP; Site: right forearm; mb9 14:54 Follow up: Response: No adverse reaction mb9 14:16 Drug: NS 0.9% IV 500 ml Route: IV; Rate: bolus; Site: left forearm; mb9 15:52 Follow up: Response: No adverse reaction; IV Status: Completed infusion mb9 14:48 Not Given (Hemodynamic Parameters): Metoprolol IVP 2.5 mg IVP once; Hold for SBP <100 mb9 or HR <60. Medication: 12:44 VIS not applicable for this client. mb9 Output: 16:22 Urine: 600ml (Maya); Total: 600ml. mb9 Outcome: 14:20 Decision to Hospitalize by Provider. savage 16:50 Admitted to Med/surg room 213, with chart, Report called to WALI Chung 16:50 Condition: stable 16:50 Instructed on the need for admit. 17:04 Patient left the ED. mb9 Signatures: Dispatcher [employer] EDMS Elias Gamez MD MD cha Baxter, Heather, RN RN Elisa Rangel RN RN mb9 [place], [place] mg5 Lavinia Mock PA PA [facility] Corrections: (The following items were deleted from the chart) 12:42 12:30 BP 156 / 101; Pulse 105bpm; Resp 16bpm; Pulse Ox 97% RA; 63.5 kg; Height 5 ft. 2 hb in.; BMI: 25.6; Pain 8/10, Adult; hb 13:20 13:20 Reassessment: ERP notified of pts BP. New orders at this time mb9 mb9
[2022-11-26 15:26] LABS: Urine Bacteria <20 /HPF (<20); Urine Bilirubin NEGATIVE (Negative); Urine Blood 2+ (Negative); Urine Clarity Turbid (Clear); Urine Color Light-Yellow (Yellow); Urine Glucose NEGATIVE (Negative); Urine Protein 2+ (Negative); Urine Urobilinogen Normal (Normal); Urine pH 6.5 (5.0-7.0)
[2022-11-26] MEDS ORDERED: SODIUM CHLORIDE 0.9% 10ML INJ IV PRN (15:58)
--- NOTE | 2022-11-26 15:59 | P.HP ---
Certification for Inpatient Patient admitted to: Inpatient With expected LOS: >2 Midnights Practitioner: I am a practitioner with admitting privileges, knowledge of patient current condition, hospital course, and medical plan of care. Services: Services provided to patient in accordance with Admission requirements found in Title 42 Section 412.3 of the Code of Federal Regulations Patient History Date of Service: 11/26/22 Reason for admission: hyponatremia, intractable nausea/vomiting History of Present Illness: 67-year-old female, PMH: Gastritis/esophagitis, prior upper GI bleed (1 year ago), TIA vs CVA, mild COPD, CAD s/p PCI (3 years ago), chronic intermittent loose stool, s/p lap band surgery Presents to ED due to generalized weakness, inability to stay standing for a few minutes due to concern of falling. Reports 1 week of progressively worsening intractable nausea/vomiting with epigastric pain. Shortly after she drinks/eats, "it all comes out". Denies any coffee ground emesis, no blood. 2 weeks ago she had a week of diarrhea. States her brother had Covid ~`1 month ago, then had 2 days of diarrhea. The next day or two after his symptoms, she began to have di arrhea. Last BM was ~1 week ago and states no flatus in ~2 days ago. Denies feeling bloated. Reports having burping and acid reflux. She stopped taking all her medications ~2 weeks ago due to not feeling well / not wanting to take meds - including her pantoprazole. Denies any recent use of NSAIDs. She did not try anything for her symptoms at home. In the ED, she was found to be hyponatremic to 120, renal function normal, no leukocytosis or lactic acidosis. CT abd/pelvis was rather unremarkable, but without IV or PO contrast. Afebrile. Maya catheter was placed for accurate I/O's by ED. - Past Medical/Surgical History -: Gastritis / Esophagitis -: s/p lap band -: CAD s/p PCI -: h/o alcohol abuse, with ?liver cirrhosis -: chronic intermittent diarrhea -: CVA vs TIA -: COPD (mild) -: s/p PCI (~2019) -: cholecystectomy -: Appendectomy -: Lap-Band surgery -: EGD/C-scope (early 2022) Psychosocial/ Personal History: lives with daughter, recently moved to area - Family History Family History: Reviewed- Non-Contributory - Social History Smoking Status: Former smoker Alcohol use: No Place of Residence: Home Review of Systems 10-point ROS is otherwise unremarkable Physical Examination - Physical Exam General: Alert, In no apparent distress, Oriented x3 HEENT: EOMI, Sclerae nonicteric Neck: Supple, No LAD Respiratory: Clear to auscultation bilaterally, Diminished Cardiovascular: No edema, Regular rate/rhythm Gastrointestinal: Soft and benign, Non-distended, Tenderness (moderate-severe in epigastrium to mild palpation) Musculoskeletal: No contractures, No tenderness Integumentary: No rashes, No significant lesion Neurological: Normal speech, Normal strength at 5/5 x4 extr, Normal affect - Studies Laboratory Data (last 24 hrs) 11/26/22 11/26/22 11/26/22 12:58 12:40 12:40 WBC 10.50 Hgb 15.3 H Hct 43.5 Plt Count 302 PT 13.1 H INR 1.19 Sodium 120 L Potassium 3.0 L BUN 17 Creatinine 0.99 Glucose 145 H Magnesium 2.0 Total Bilirubin 0.8 AST 31 ALT 19 Alkaline Phosphatase 115 Lipase 21 Assessment and Plan - Advance Directives Does patient have a Living Will: No Does patient have a Durable POA for Healthcare: No Physician Review Additional Text: Problem list Hyponatremia Intractable nausea/vomiting Epigastric abdominal pain h/o lap band surgery COPD, chronic h/o GERD hypoNa secondary to hypovolemia check urinary lytes patient feeling better after IVF in ED will recheck BMP and adjust for sodium nephrology consulted patient with epigastric tenderness CT negative, lipase normal, LFTs ok suspect muscle pains from vomiting, tender with superficial palpation possible ulcer protonix IV BID, carafate; ice chips./sips for now if tolerating need to confirm home meds and restart patient off meds for ~2 weeks, contributing to GERD symptoms no BM in ~1 week, and no flatus in ~2 days multiple abdominal procedures - vicky/appy/hysterectomy in past, lap band surgery high risk for bowel obstruction; nothing obvious on CT, however not done with PO contrast will monitor, abdomen is soft / non-distended Code: DNR - confirmed on admission Dispo: home, ~2-3 days Time Spent Managing Pts Care (In Minutes): 65
[2022-11-26] MEDS ORDERED: NA CHLORIDE 0.9% 1,000 ML IV SCH ×2 (16:00→17:16)
--- NOTE | 2022-11-26 17:23 | P.CNS ---
Date of Consult: 11/26/22 Reason for Consult: Hyponatremia Requesting Physician: Alvin Edwards Chief Complaint: hyponatremia, intractable nausea/vomiting History of Present Illness: 67-year-old female with hx of gastritis/esophagitis, prior upper GI bleed episode, CAD s/p PCI per reports who presented to ED due to on going or recurrent nausea/vomiting with epigastric pain. Pt reports nausea a bit better today and no vomiting episodes during ER stay thus far. Labs on admission were abnormal and revealed mod to severe hyponatremia. Pt acknowledges some chronic hyponatremia and was instructed by her PCP in the past to liberalize salt intake. Pt reports often eating one meal a day. Allergies nifedipine [From Procardia] Allergy (Unknown, Unverified 11/26/22 16:33) UNKNOWN - Past Medical/Surgical History -: Gastritis / Esophagitis -: s/p lap band -: CAD s/p PCI -: h/o alcohol abuse, with ?liver cirrhosis -: chronic intermittent diarrhea -: CVA vs TIA -: COPD (mild) -: s/p PCI (~2019) -: cholecystectomy -: Appendectomy -: Lap-Band surgery -: EGD/C-scope (early 2022) Psychosocial/ Personal History: lives with daughter, recently moved to area - Social History Alcohol use: No Place of Residence: Home Review of Systems General: Weakness Eyes: Unremarkable ENT: Unremarkable Respiratory: As per HPI Cardiovascular: As per HPI Gastrointestinal: Nausea, Abdominal Pain Genitourinary: Unremarkable Musculoskeletal: Unremarkable Neurological: Unremarkable Physical Examination General: Alert, In no apparent distress, Cooperative HEENT: Atraumatic, Normocephalic Neck: Supple Respiratory: Clear to auscultation bilaterally, Normal air movement Cardiovascular: No edema, Regular rate/rhythm, Normal S1 S2 Gastrointestinal: Soft and benign, Non-distended, No guarding Musculoskeletal: No contractures, No erythema, No tenderness Integumentary: Other (Some discoloration of toes) Neurological: Normal tone, Normal affect Laboratory Data (last 24 hrs) 11/26/22 11/26/22 11/26/22 15:22 12:58 12:40 WBC 10.50 Hgb 15.3 H Hct 43.5 Plt Count 302 PT 13.1 H INR 1.19 Sodium Cancelled Potassium Cancelled BUN Cancelled Creatinine Cancelled Glucose Cancelled Magnesium Total Bilirubin AST ALT Alkaline Phosphatase Lipase 11/26/22 12:40 WBC Hgb Hct Plt Count PT INR Sodium 120 L Potassium 3.0 L BUN 17 Creatinine 0.99 Glucose 145 H Magnesium 2.0 Total Bilirubin 0.8 AST 31 ALT 19 Alkaline Phosphatase 115 Lipase 21 Conclusions/Impression: A/P) 1. Acute on chronic hypotonic hyponatremia, mod to severe, symptomatic in the setting of likely hypovolemia, GI losses, poor PO solute intake, other. Low random Mari and elevated Uosm supports this. 2. Monitor for rapid correction of Na on isotonic IVF with suppression of osmotic trigger for ADH. Will order STAT Na level. 3. Will follow Na levels serially and adjust isotonic IVF accordingly. 4. Abdominal pain, N/V w/u per primary team. CT scan did not show acute abnormalities. LFTs ok 5. Report of left renal artery calcification on non contrast CT suggestive of high grade JOSE ALEJANDRO, pt has hx of atherosclerotic vascular disease. No renal asymmetry. No specific reports of renovascular HTN. Monitor BP during admission. F/u post hydration Cr levels. Gonzalo Irving MD, TATY
[2022-11-26 18:32] VITALS: BMI 25.6
[2022-11-26] MEDS: SUCRALFATE 1GM/10ML UCUP FT SCH ×2 (18:40→20:13)
[2022-11-26] MEDS: PANTOPRAZOLE 40 MG INJ IVP SCH (20:16)
[2022-11-27 03:10] LABS: Absolute Lymphocytes (CBC) 2.2 K/uL (0.7-4.9); Hematocrit 35.6 % (36.0-45.0); Lymphocytes % 37.9 % (15.3-44.8); MCV 81.9 fL (80-100); MPV 8.3 fL (7.6-11.3); Platelets 190 thou/uL (152-406); RBC Red Blood Cell Count 4.34 M/uL (3.86-4.86)
[2022-11-27 03:36] LABS: Albumin 3.3 g/dL (3.4-5.0); Bilirubin Total 0.5 mg/dL (0.2-1.0); Magnesium 2.1 mg/dL (1.6-2.4); Phosphorus 3.4 mg/dL (2.5-4.9); Potassium 3.2 mEq/L (3.5-5.1); Protein, Total 6.3 g/dL (6.4-8.2)
[2022-11-27 07:30] LABS: Potassium 3.1 mEq/L (3.5-5.1)
--- NOTE | 2022-11-27 08:30 | P.PN ---
Subjective Date of Service: 11/27/22 Chief Complaint: hyponatremia, intractable nausea/vomiting HPI 11/26: 67-year-old female, PMH: Gastritis/esophagitis, prior upper GI bleed (1 year ago), TIA vs CVA, mild COPD, CAD s/p PCI (3 years ago), chronic intermittent loose stool, s/p lap band surgery Presents to ED due to generalized weakness, inability to stay standing for a few minutes due to concern of falling. Reports 1 week of progressively worsening intractable nausea/vomiting with epigastric pain. Shortly after she drinks/eats, "it all comes out". Denies any coffee ground emesis, no blood. 2 weeks ago she had a week of diarrhea. States her brother had Covid ~`1 month ago, then had 2 days of diarrhea. The next day or two after his symptoms, she began to have diarrhea. Last BM was ~1 week ago and states no flatus in ~2 days ago. Denies feeling bloated. Reports having burping and acid reflux. She stopped taking all her medications ~2 weeks ago due to not feeling well / not wanting to take meds - including her pantoprazole. Denies any recent use of NSAIDs. She did not try anything for her symptoms at home. In the ED, she was found to be hyponatremic to 120, renal function normal, no leukocytosis or lactic acidosis. CT abd/pelvis was rather unremarkable, but without IV or PO contrast. Afebrile. Maya catheter was placed for accurate I/O's by ED. 11/27: Patient reports feeling better this AM with minimal abdominal tenderness to palpation of the epigastric and LUQ. She is hungry, passing gas, awake, al ert, and oriented. Patient reports using marijuana on Tuesday and began to have N/V. Plan to start CLD this morning. Maya in place for now. <Krista Dc - Last Filed: 11/27/22 16:14> Date of Service: 11/27/22 <Alvin Edwards - Last Filed: 11/27/22 16:58> Review of Systems General: Unremarkable Eyes: Unremarkable ENT: Unremarkable Respiratory: Unremarkable Cardiovascular: Unremarkable Gastrointestinal: Abdominal Pain (epigastic and LUQ, better today), No Distention Musculoskeletal: Arm Pain (right arm pain ) Neurological: Unremarkable <Krista Dc - Last Filed: 11/27/22 16:14> Physical Examination - Vital Signs Temperature: 97.0 F Blood Pressure: 127/73 Pulse: 56 Respirations: 18 Pulse Ox (%): 94 - Physical Exam General: Alert, In no apparent distress, Oriented x3, Cooperative HEENT: Atraumatic, Normocephalic, PERRLA Neck: Supple, 2+ carotid pulse no bruit, JVD not distended Respiratory: Clear to auscultation bilaterally, Normal air movement Cardiovascular: No edema, Normal pulses, Regular rate/rhythm, Normal S1 S2 Capillary refill: <2 Seconds Gastrointestinal: Normal bowel sounds, Soft and benign, Non-distended, Te nderness (to epigastric and LUQ) Musculoskeletal: No clubbing Integumentary: No breakdown Neurological: Normal speech, Normal strength at 5/5 x4 extr Urinary: Maya catheter - Studies Laboratory Data (last 24 hrs) 11/26/22 11/26/22 11/26/22 15:22 12:58 12:40 WBC 10.50 Hgb 15.3 H Hct 43.5 Plt Count 302 PT 13.1 H INR 1.19 Sodium Cancelled Potassium Cancelled BUN Cancelled Creatinine Cancelled Glucose Cancelled Magnesium Total Bilirubin AST ALT Alkaline Phosphatase Lipase 11/26/22 12:40 WBC Hgb Hct Plt Count PT INR Sodium 120 L Potassium 3.0 L BUN 17 Creatinine 0.99 Glucose 145 H Magnesium 2.0 Total Bilirubin 0.8 AST 31 ALT 19 Alkaline Phosphatase 115 Lipase 21 <Krista Dc - Last Filed: 11/27/22 16:14> - Studies Laboratory Data (last 24 hrs) 11/26/22 15:22 Sodium Cancelled Potassium Cancelled BUN Cancelled Creatinine Cancelled Glucose Cancelled <Alvin Edwards - Last Filed: 11/27/22 16:58> Assessment And Plan - Plan Assessment and Plan Hyponatremia secondary to hypovolemia Intractable nausea/vomiting Epigastric abdominal pain h/o lap band surgery h/o GERD COPD, chronic hypoNa secondary to hypovolemia Na trending back down throughout the day continue IVF check urinary lytes will recheck BMP and adjust for sodium nephrology consulted patient with epigastric tenderness CT negative, lipase normal, LFTs ok suspect muscle pains from vomiting, tender with superficial palpation possible ulcer protonix IV BID, carafate; CLD diet, will advance to [facility] [place] need to confirm home meds and restart patient off meds for ~2 weeks, contributing to GERD symptoms and took two tums last night no BM in ~1 week, Flatus this morning multiple abdominal procedures - vicky/appy/hysterectomy in past, lap band s urgery high risk for bowel obstruction; nothing obvious on CT, however not done with PO contrast will monitor, abdomen is soft / non-distended Code: DNR - confirmed on admission Dispo: home, ~2-3 days Time Spent Managing PTS Care (In Minutes): 35 <Krista Dc - Last Filed: 11/27/22 16:14> - Plan Patient seen and examined on rounds feels like she did a "180" since yesterday, feeling a lot better hungry wants to advance diet reports protonix and carafate are helping no new/worsening symptoms <Alvin Edwards - Last Filed: 11/27/22 16:58>
[2022-11-27] MEDS: SUCRALFATE 1GM/10ML UCUP FT SCH ×4 (09:55→19:58)
[2022-11-27] MEDS: PANTOPRAZOLE 40 MG INJ IVP SCH ×2 (09:55→19:58)
[2022-11-27] MEDS: POTASSIUM CL SA 10 MEQ TAB PO SCH ×2 (15:05→19:58)
[2022-11-27] MEDS: METOPROLOL TARTRATE 5 MG/5 ML INJ IV STA ×2 (16:00→16:01)
[2022-11-27] MEDS: ONDANSETRON 4 MG/2 ML VIAL IV PRN ×2 (16:07→19:57)
--- NOTE | 2022-11-27 16:57 | PN ---
Date of Progress Note: 11/27/2022 Subjective: The patient was seen and examined at bedside. She was seen eating her lunch. She is tr azul to work on her meat, although she is struggling because of the dentures. She denies any other c omplaints. She denies any more nausea, vomiting or retching. Objective: Vital Signs: Have been reviewed and are stable. General: She appears in no acute distress. Clear to auscultation. Abdomen: Soft and nontender. Extremities: Showed no evidence of edema. Laboratory Data: Showing sodium of 127, potassium of 3. DICTATION ENDS HERE VV/MODL Voice ID: [id number] Report ID: [id number]
[2022-11-27] MEDS ORDERED: carvediloL 25 MG TAB PO SCH (18:00)
[2022-11-27] MEDS: HYDRALAZINE HCL 20 MG/ML VIAL IV PRN (21:55)
[2022-11-28] MEDS: ONDANSETRON 4 MG/2 ML VIAL IV PRN ×2 (01:22→21:04)
[2022-11-28 07:53] LABS: Absolute Lymphocytes (CBC) 1.3 K/uL (0.7-4.9); Hematocrit 42.3 % (36.0-45.0); Lymphocytes % 15.4 % (15.3-44.8); MCV 82.6 fL (80-100); MPV 8.1 fL (7.6-11.3); Platelets 255 thou/uL (152-406); RBC Red Blood Cell Count 5.12 M/uL (3.86-4.86)
--- NOTE | 2022-11-28 07:53 | P.PN ---
Subjective Date of Service: 11/28/22 Chief Complaint: hyponatremia, intractable nausea/vomiting HPI 11/26: 67-year-old female, PMH: Gastritis/esophagitis, prior upper GI bleed (1 year ago), TIA vs CVA, mild COPD, CAD s/p PCI (3 years ago), chronic intermittent loose stool, s/p lap band surgery Presents to ED due to generalized weakness, inability to stay standing for a few minutes due to concern of falling. Reports 1 week of progressively worsening intractable nausea/vomiting with epigastric pain. Shortly after she drinks/eats, "it all comes out". Denies any coffee ground emesis, no blood. 2 weeks ago she had a week of diarrhea. States her brother had Covid ~`1 month ago, then had 2 days of diarrhea. The next day or two after his symptoms, she began to have diarrhea. Last BM was ~1 week ago and states no flatus in ~2 days ago. Denies feeling bloated. Reports having burping and acid reflux. She stopped taking all her medications ~2 weeks ago due to not feeling well / not wanting to take meds - including her pantoprazole. Denies any recent use of NSAIDs. She did not try anything for her symptoms at home. In the ED, she was found to be hyponatremic to 120, renal function normal, no leukocytosis or lactic acidosis. CT abd/pelvis was rather unremarkable, but without IV or PO contrast. Afebrile. Maya catheter was placed for accurate I/O's by ED. 11/27: Patient reports feeling better this AM with minimal abdominal tenderness to palpation of the epigastric and LUQ. She is hungry, passing gas, awake, al ert, and oriented. Patient reports using marijuana on Tuesday and began to have N/V. Plan to start CLD this morning. Maya in place for now. 11/28: Patient c/o of "not feeling well", requested going back to a CLD after feeling nauseous and vomited last night. OVN patient became hypertensive (SBP 208 and 191) and was given lopressor, patient was panicked and her face turned red. This morning, patient was sleeping but aroused easily, SBP 126, calm and conversing well. <Krista Dc - Last Filed: 11/28/22 12:19> Date of Service: 11/28/22 <Alvin Edwards - Last Filed: 11/28/22 15:10> Review of Systems General: Unremarkable Eyes: Unremarkable ENT: Unremarkable Gastrointestinal: Abdominal Pain Genitourinary: Unremarkable Musculoskeletal: Unremarkable Integumentary: Unremarkable Neurological: Unremarkable <Krista Dc - Last Filed: 11/28/22 12:19> Physical Examination - Vital Signs Temperature: 97.5 F Blood Pressure: 126/67 Pulse: 97 Respirations: 18 Pulse Ox (%): 96 - Physical Exam General: Alert, In no apparent distress, Oriented x3 HEENT: Atraumatic, Normocephalic, PERRLA Neck: Supple, 2+ carotid pulse no bruit, JVD not distended Respiratory: Clear to auscultation bilaterally, Normal air movement Cardiovascular: No edema, Normal pulses, Regular rate/rhythm, Normal S1 S2 Capillary refill: <2 Seconds Gastrointestinal: Hypoactive, Soft and benign, Non-distended Musculoskeletal: No clubbing, No swelling, No contractures, No erythema Integumentary: No rashes, No breakdown, No significant lesion Neurological: Normal speech, Normal strength at 5/5 x4 extr <Krista Dc - Last Filed: 11/28/22 12:19> Assessment And Plan - Plan Assessment and Plan Hyponatremia secondary to hypovolemia Intractable nausea/vomiting Epigastric abdominal pain h/o lap band surgery h/o GERD COPD, chronic hypoNa secondary to hypovolemia Na trending back down throughout the day, 123 today (11/28) redraw BMP at 1800 continue IVF check urinary lytes will recheck BMP and adjust for sodium nephrology consulted patient with epigastric tenderness CT negative, lipase normal, LFTs ok suspect muscle pains from vomiting, tender with superficial palpation possible ulcer protonix IV BID, carafate; CLD diet, will advance to [facility] tonight Patient non compliant with home medications since March no BM in ~1 week, Flatus this morning multiple abdominal procedures - vicky/appy/hysterectomy in past, lap band surgery high risk for bowel obstruction; nothing obvious on CT, however not done with PO contrast will monitor, abdomen is soft / non-distended Code: DNR - confirmed on admission DVT ppx: lovenox Dispo: home, ~2-3 days Time Spent Managing PTS Care (In Minutes): 35 <Krista Dc - Last Filed: 11/28/22 12:19> - Plan hyponatremia, acute possible chronic component; reports previously told she has hyponatremia; however doubt she is chronically <= 120 Patient seen on rounds today. Plan of care discussed with [employer] Dao as noted above likely 1-2 more days backed down to cLD, start gentle IVF with NS, repeat BMP this evening nephrology consulted if h/o hypoNa, may need salt tabs patient has been off her home meds for 6-8 months; unable to tell me what her meds were <Alvin Edwards - Last Filed: 11/28/22 15:10>
[2022-11-28] MEDS: SUCRALFATE 1GM/10ML UCUP FT SCH ×4 (10:03→20:53)
[2022-11-28] MEDS: PANTOPRAZOLE 40 MG INJ IVP SCH ×2 (10:03→20:54)
[2022-11-28] MEDS: POTASSIUM CL SA 10 MEQ TAB PO SCH ×2 (10:03→20:53)
[2022-11-28] MEDS: ENOXAPARIN 40 MG/0.4 ML SQ SCH (10:04)
[2022-11-28 10:08] LABS: Potassium 3.3 mEq/L (3.5-5.1)
[2022-11-28] MEDS ORDERED: POTASSIUM CL SA 10 MEQ TAB PO ONE (12:15)
[2022-11-28] MEDS ORDERED: NA CHLORIDE 0.9% 1,000 ML IV SCH (13:00)
[2022-11-28] MEDS: SODIUM CHLORIDE 1 GM TAB PO SCH ×3 (15:28→20:55)
[2022-11-28 18:31] LABS: Albumin 3.7 g/dL (3.4-5.0); Phosphorus 1.8 mg/dL (2.5-4.9)
[2022-11-28] MEDS ORDERED: FUROSEMIDE 20 MG/ 2ML VIAL IV ONE (20:42)
[2022-11-28] MEDS: MELATONIN 5 MG TABLET PO PRN (23:51)
[2022-11-28] MEDS: HYDRALAZINE HCL 20 MG/ML VIAL IV PRN (23:51)
[2022-11-29] MEDS: ONDANSETRON 4 MG/2 ML VIAL IV PRN ×2 (02:59→08:21)
[2022-11-29] MEDS: MORPHINE 2 MG/ML SYR IV PRN ×2 (04:45→08:21)
[2022-11-29] MEDS: HYDRALAZINE HCL 20 MG/ML VIAL IV PRN (06:23)
[2022-11-29 07:09] LABS: Absolute Lymphocytes (CBC) 1.6 K/uL (0.7-4.9); Hematocrit 37.7 % (36.0-45.0); MCV 81.7 fL (80-100); MPV 8.1 fL (7.6-11.3); Platelets 236 thou/uL (152-406); RBC Red Blood Cell Count 4.61 M/uL (3.86-4.86)
[2022-11-29 07:14] LABS: Albumin 3.7 g/dL (3.4-5.0); Magnesium 1.9 mg/dL (1.6-2.4); Phosphorus 1.7 mg/dL (2.5-4.9); Potassium 3.4 mEq/L (3.5-5.1)
[2022-11-29] MEDS: ENOXAPARIN 40 MG/0.4 ML SQ SCH (08:21)
[2022-11-29] MEDS: PANTOPRAZOLE 40 MG INJ IVP SCH ×2 (08:21→20:39)
[2022-11-29] MEDS: POTASSIUM CL SA 10 MEQ TAB PO SCH ×2 (08:21→20:39)
[2022-11-29] MEDS: SODIUM CHLORIDE 1 GM TAB PO SCH ×2 (08:21→17:07)
[2022-11-29] MEDS: SUCRALFATE 1GM/10ML UCUP FT SCH ×4 (08:21→20:38)
[2022-11-29] MEDS ORDERED: POTASSIUM CL SA 10 MEQ TAB PO ONE (09:00)
[2022-11-29] MEDS ORDERED: POTASS/SODIUM PHOSPHATE 1 PKT POWD.PACK PO SCH (10:00)
[2022-11-29] MEDS: METOPROLOL TAR 25 MG TAB PO SCH ×2 (11:02→17:07)
[2022-11-29] MEDS: POTASS/SODIUM PHOSPHATE 1 PKT POWD.PACK PO SCH ×3 (11:03→12:38)
[2022-11-29] MEDS: UREA 15 GM POWDER PACKET PO SCH (11:38)
--- NOTE | 2022-11-29 19:12 | EKG ---
Test Date: 2022-11-26 Test Time: 13:11:35 Pin Machine Tender: MEASUREMENT RESULTS: Intervals: Rate: 87 SD: 152 QRSD: 96 QT: 390 QTc: 469 [place]: P: 59 SD: 152 QRS: 13 T: 71 INTERPRETIVE STATEMENTS: Normal sinus rhythm with sinus arrhythmia Low voltage QRS Inferior infarct, age undetermined Abnormal ECG Compared to ECG 05/28/2002 14:41:00 Myocardial infarct finding now present Sinus bradycardia no longer present Electronically Signed On 11-29-22 19:07:52 CDT by Davdi Irby
[2022-11-29] MEDS: MELATONIN 5 MG TABLET PO PRN (20:44)
--- NOTE | 2022-11-29 21:33 | P.PN ---
Date of Service: 11/29/22 Vital Signs Temp Pulse Resp BP Pulse Ox 97.4 F 62 14 95/54 L 98 11/29/22 16:00 11/29/22 16:00 11/29/22 16:00 11/29/22 16:00 11/29/22 16:00 Medications Enoxaparin Sodium (Enoxaparin 40 Mg/0.4 Ml) 40 mg SQ DAILY [facility] Last Admin: 11/29/22 08:21 Dose: 40 mg Hydralazine HCl (Hydralazine Hcl 20 Mg/Ml Vial) 10 mg IV Q6HP PRN PRN Reason: FOR SBP>160 OR DBP>100 MM[facility] Last Admin: 11/29/22 06:23 Dose: 10 mg Melatonin (Melatonin 5 Mg Tablet) 5 mg PO BEDTIME PRN PRN PRN Reason: INSOMNIA Last Admin: 11/29/22 20:44 Dose: 5 mg Metoprolol Tartrate (Metoprolol Tar 25 Mg Tab) 25 mg PO BID 6AM 6PM [facility] Last Admin: 11/29/22 17:07 Dose: 25 mg Morphine Sulfate (Morphine 2 Mg/Ml Syr) 2 mg IV Q4H PRN PRN Reason: Pain scale 8-10 (Severe) Last Admin: 11/29/22 08:21 Dose: 2 mg Ondansetron HCl (Ondansetron 4 Mg/2 Ml Vial) 4 mg IV Q6HP PRN PRN Reason: NAUSEA / VOMITING Last Admin: 11/29/22 08:21 Dose: 4 mg Pantoprazole Sodium (Pantoprazole 40 Mg Inj) 40 mg IVP Q12HR [facility]; Protocol Last Admin: 11/29/22 20:39 Dose: 40 mg Potassium Chloride (Potassium Cl Sa 10 Meq Tab) 20 meq PO BID [facility] Last Admin: 11/29/22 20:39 Dose: 20 meq Sodium Chloride (Flush Normal Saline 10 Ml) 10 ml IV BID [facility] Last Admin: 11/29/22 20:39 Dose: 10 ml Sodium Chloride (Sodium Chloride 0.9% 10ml Inj) 10 ml IV UD PRN PRN Reason: Diluant Sodium Chloride (Sodium Chloride 1 Gm Tab) 2 gm PO BIDWM [facility] Last Admin: 11/29/22 17:07 Dose: 2 gm Sucralfate (Sucralfate 1gm/10ml Ucup) 1 gm FT ACHS [facility] Last Admin: 11/29/22 20:38 Dose: 1 gm Urea (Urea 15 Gm Powder Packet) 30 gm PO DAILY GONZÁLEZ Last Admin: 11/29/22 11:38 Dose: 30 gm Assessment/ Plan: Nephrology No dyspnea No chest pain Poor appetite with associated nausea High BP this morning No acute events overnight Vitals, medications, blood work and imaging reviewed in the chart. NAD. NCAT. MMM. Neck supple. Normal respiratory effort. RRR. Abd ND. No C/C. LE Edema none. No rash. AAO. Normal speech. 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
[2022-11-30 04:04] LABS: Magnesium 2.1 mg/dL (1.6-2.4); Phosphorus 3.1 mg/dL (2.5-4.9); Potassium 4.1 mEq/L (3.5-5.1)
[2022-11-30] MEDS: METOPROLOL TAR 25 MG TAB PO SCH ×2 (05:49→17:14)
[2022-11-30] MEDS: POTASSIUM CL SA 10 MEQ TAB PO SCH ×2 (09:00→20:21)
[2022-11-30] MEDS: PANTOPRAZOLE 40 MG INJ IVP SCH ×2 (09:37→20:22)
[2022-11-30] MEDS: ENOXAPARIN 40 MG/0.4 ML SQ SCH (09:37)
[2022-11-30] MEDS: SODIUM CHLORIDE 1 GM TAB PO SCH ×2 (09:37→17:13)
[2022-11-30] MEDS: SUCRALFATE 1GM/10ML UCUP FT SCH ×4 (09:41→20:21)
[2022-11-30] MEDS: UREA 15 GM POWDER PACKET PO SCH (10:35)
--- NOTE | 2022-11-30 16:47 | P.PN ---
Subjective Date of Service: 11/30/22 Chief Complaint: hyponatremia, intractable nausea/vomiting Patient reports diarrhea today. She gives a history of chronic intermittent diarrhea from irritable bowel syndrome. She states she takes Imodium as needed for the diarrhea. She denies any abdominal pain. Physical Examination - Vital Signs Temperature: 98.3 F Blood Pressure: 122/68 Pulse: 56 Respirations: 16 Pulse Ox (%): 100 Assessment And Plan - Plan Physical Exam General: Alert, In no apparent distress, Oriented x3 Neck: Supple, JVD not distended Respiratory: Clear to auscultation bilaterally, Normal air movement Cardiovascular: No edema, Normal pulses, Regular rate/rhythm, Normal S1 S2 Gastrointestinal: Normal bowel sounds, Soft and benign, Non-distended Integumentary: No rashes. Neurological: Normal speech, Normal strength at 5/5 x4 extr Diagnosis Hyponatremia secondary to hypovolemia Intractable nausea/vomiting GERD Irritable bowel syndrome h/o lap band surgery COPD, chronic Plan Hyponatremia Likely secondary to hypovolemia from vomiting and diarrhea. Sodium level is improving. Nephrology is following and managing with oral sodium tablets and urea tablets Sodium level is trending up. Serum osmolality is low with normal urine osmolality indicating possible SIADH. Continue to monitor sodium level. GERD/history of Lap-Band surgery CT negative, lipase normal, LFTs ok History of gastric lap band. Abdominal pain likely secondary to GERD/gastritis Continue protonix IV BID, carafate; Advance diet as tolerated. Outpatient follow-up with GI Irritable bowel syndrome Patient with alternating constipation and diarrhea. She had diarrhea this morning. Diarrhea was preceded by days of constipation Monitor. No antidiarrheal agent yet. COPD Stable without acute exacerbation. Code: DNR - confirmed on admission DVT ppx: lovenox
[2022-11-30 18:30] LABS: Potassium 3.8 mEq/L (3.5-5.1)
--- NOTE | 2022-11-30 20:07 | P.PN ---
Date of Service: 11/30/22 Vital Signs Temp Pulse Resp BP Pulse Ox 98.3 F 56 16 122/68 100 11/30/22 16:53 11/30/22 16:53 11/30/22 16:53 11/30/22 16:53 11/30/22 16:53 Medications Enoxaparin Sodium (Enoxaparin 40 Mg/0.4 Ml) 40 mg SQ DAILY [facility] Last Admin: 11/30/22 09:37 Dose: 40 mg Hydralazine HCl (Hydralazine Hcl 20 Mg/Ml Vial) 10 mg IV Q6HP PRN PRN Reason: FOR SBP>160 OR DBP>100 MM[facility] Last Admin: 11/29/22 06:23 Dose: 10 mg Melatonin (Melatonin 5 Mg Tablet) 5 mg PO BEDTIME PRN PRN PRN Reason: INSOMNIA Last Admin: 11/29/22 20:44 Dose: 5 mg Metoprolol Tartrate (Metoprolol Tar 25 Mg Tab) 25 mg PO BID 6AM 6PM [facility] Last Admin: 11/30/22 17:14 Dose: Not Given Morphine Sulfate (Morphine 2 Mg/Ml Syr) 2 mg IV Q4H PRN PRN Reason: Pain scale 8-10 (Severe) Last Admin: 11/29/22 08:21 Dose: 2 mg Ondansetron HCl (Ondansetron 4 Mg/2 Ml Vial) 4 mg IV Q6HP PRN PRN Reason: NAUSEA / VOMITING Last Admin: 11/29/22 08:21 Dose: 4 mg Pantoprazole Sodium (Pantoprazole 40 Mg Inj) 40 mg IVP Q12HR [facility]; Protocol Last Admin: 11/30/22 09:37 Dose: 40 mg Potassium Chloride (Potassium Cl Sa 10 Meq Tab) 20 meq PO BID [facility] Last Admin: 11/30/22 09:00 Dose: Not Given Sodium Chloride (Flush Normal Saline 10 Ml) 10 ml IV BID [facility] Last Admin: 11/30/22 09:00 Dose: 10 ml Sodium Chloride (Sodium Chloride 0.9% 10ml Inj) 10 ml IV UD PRN PRN Reason: Diluant Sodium Chloride (Sodium Chloride 1 Gm Tab) 2 gm PO BIDWM [facility] Last Admin: 11/30/22 17:13 Dose: 2 gm Sucralfate (Sucralfate 1gm/10ml Ucup) 1 gm FT ACHS [facility] Last Admin: 11/30/22 17:13 Dose: 1 gm Urea (Urea 15 Gm Powder Packet) 30 gm PO DAILY [facility] Last Admin: 11/30/22 10:35 Dose: 30 gm Assessment/ Plan: Nephrology No dyspnea No chest pain Feeling better No acute events overnight Vitals, medications, blood work and imaging reviewed in the chart. NAD. NCAT. MMM. Neck supple. Normal respiratory effort. RRR. Abd ND. No C/C. LE Edema none. No rash. AAO. Normal speech. 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
[2022-11-30] MEDS: MELATONIN 5 MG TABLET PO PRN (20:21)
[2022-12-01] MEDS: METOPROLOL TAR 25 MG TAB PO SCH ×2 (05:34→18:04)
[2022-12-01 07:02] LABS: Potassium 3.7 mEq/L (3.5-5.1)
[2022-12-01] MEDS: SUCRALFATE 1GM/10ML UCUP FT SCH ×4 (08:22→20:09)
[2022-12-01] MEDS: POTASSIUM CL SA 10 MEQ TAB PO SCH ×2 (08:23→20:08)
[2022-12-01] MEDS: SODIUM CHLORIDE 1 GM TAB PO SCH (08:24)
[2022-12-01] MEDS: ENOXAPARIN 40 MG/0.4 ML SQ SCH (08:25)
[2022-12-01] MEDS: UREA 15 GM POWDER PACKET PO SCH (08:28)
[2022-12-01] MEDS: PANTOPRAZOLE 40 MG INJ IVP SCH ×2 (08:28→20:20)
[2022-12-01] MEDS ORDERED: TOLVAPTAN 15 MG TABLET PO ONE (12:00)
--- NOTE | 2022-12-01 13:12 | P.PN ---
Subjective Date of Service: 12/01/22 Chief Complaint: hyponatremia, intractable nausea/vomiting Patient reports intermittent diarrhea. No improvement in sodium level from yesterday. Patient is ambulatory. She reports nausea with the sodium tablets Physical Examination - Vital Signs Temperature: 97.6 F Blood Pressure: 121/72 Pulse: 62 Respirations: 16 Pulse Ox (%): 100 Assessment And Plan - Plan Physical Exam General: Alert, In no apparent distress, Oriented x3 Neck: Supple, JVD not distended Respiratory: Clear to auscultation bilaterally, Normal air movement Cardiovascular: No edema, Normal pulses, Regular rate/rhythm, Normal S1 S2 Gastrointestinal: Normal bowel sounds, Soft and benign, Non-distended Integumentary: No rashes. Neurological: Normal speech, Normal strength at 5/5 x4 extr Diagnosis Hyponatremia secondary to hypovolemia Intractable nausea/vomiting GERD Irritable bowel syndrome h/o lap band surgery COPD, chronic Plan Hyponatremia Secondary to combination of hypovolemia and SIADH No significant change in sodium level from yesterday. Nephrology is following. Continue urea tablet. 1 dose of tolvaptan given today. Continue to monitor sodium levels. GERD/history of Lap-Band surgery CT negative, lipase normal, LFTs ok History of gastric lap band. Abdominal pain likely secondary to GERD/gastritis Continue protonix IV BID, carafate; Advance diet as tolerated. Outpatient follow-up with GI Irritable bowel syndrome Patient with alternating constipation and diarrhea. Diarrhea was preceded by days of constipation Monitor. No antidiarrheal agent yet. COPD Stable without acute exacerbation. Code: DNR - confirmed on admission DVT ppx: lovenox
--- NOTE | 2022-12-01 14:43 | EKG ---
Test Date: 2022-11-29 Test Time: 04:30:29 Failure Analysis Engineer: HB MEASUREMENT RESULTS: Intervals: Rate: 89 NH: QRSD: 92 QT: 414 QTc: 503 [place]: P: NH: QRS: 53 T: 261 INTERPRETIVE STATEMENTS: Sinus tachycardia with 2nd degree AV block (Mobitz I) Low voltage QRS Possible Inferior infarct, age undetermined Abnormal ECG Compared to ECG 11/26/2022 13:11:35 Sinus rhythm no longer present Sinus arrhythmia no longer present Myocardial infarct finding still present Electronically Signed On 12-01-22 14:34:33 CDT by David Irby
[2022-12-01 17:53] LABS: Potassium 3.5 mEq/L (3.5-5.1)
[2022-12-01] MEDS: MELATONIN 5 MG TABLET PO PRN (20:12)
[2022-12-01] MEDS: MORPHINE 2 MG/ML SYR IV PRN (20:33)
--- NOTE | 2022-12-01 21:03 | P.PN ---
Date of Service: 12/01/22 Vital Signs Temp Pulse Resp BP Pulse Ox 98.7 F 64 16 130/78 100 12/01/22 16:00 12/01/22 18:04 12/01/22 16:00 12/01/22 18:04 12/01/22 16:00 Medications Enoxaparin Sodium (Enoxaparin 40 Mg/0.4 Ml) 40 mg SQ DAILY [facility] Last Admin: 12/01/22 08:25 Dose: 40 mg Hydralazine HCl (Hydralazine Hcl 20 Mg/Ml Vial) 10 mg IV Q6HP PRN PRN Reason: FOR SBP>160 OR DBP>100 [facility] Last Admin: 11/29/22 06:23 Dose: 10 mg Melatonin (Melatonin 5 Mg Tablet) 5 mg PO BEDTIME PRN PRN PRN Reason: INSOMNIA Last Admin: 12/01/22 20:12 Dose: 5 mg Metoprolol Tartrate (Metoprolol Tar 25 Mg Tab) 25 mg PO BID 6AM 6PM [facility] Last Admin: 12/01/22 18:04 Dose: 25 mg Morphine Sulfate (Morphine 2 Mg/Ml Syr) 2 mg IV Q4H PRN PRN Reason: Pain scale 8-10 (Severe) Last Admin: 12/01/22 20:33 Dose: 2 mg Ondansetron HCl (Ondansetron 4 Mg/2 Ml Vial) 4 mg IV Q6HP PRN PRN Reason: NAUSEA / VOMITING Last Admin: 11/29/22 08:21 Dose: 4 mg Pantoprazole Sodium (Pantoprazole 40 Mg Inj) 40 mg IVP Q12HR [facility]; Protocol Last Admin: 12/01/22 20:20 Dose: 40 mg Potassium Chloride (Potassium Cl Sa 10 Meq Tab) 20 meq PO BID [facility] Last Admin: 12/01/22 20:08 Dose: 20 meq Sodium Chloride (Flush Normal Saline 10 Ml) 10 ml IV BID [facility] Last Admin: 12/01/22 20:08 Dose: 10 ml Sodium Chloride (Sodium Chloride 0.9% 10ml Inj) 10 ml IV UD PRN PRN Reason: Diluant Sucralfate (Sucralfate 1gm/10ml Ucup) 1 gm FT ACHS [facility] Last Admin: 12/01/22 20:09 Dose: 1 gm Urea (Urea 15 Gm Powder Packet) 30 gm PO DAILY [facility] Last Admin: 12/01/22 08:28 Dose: 30 gm Assessment/ Plan: Nephrology No dyspnea No chest pain Nausea and Diarrhea this morning No acute events overnight Vitals, medications, blood work and imaging reviewed in the chart. NAD. NCAT. MMM. Neck supple. Normal respiratory effort. RRR. Abd ND. No C/C. LE Edema none. No rash. AAO. Normal speech. 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 Godwin
[2022-12-02] MEDS: METOPROLOL TAR 25 MG TAB PO SCH (05:52)
[2022-12-02 07:27] LABS: Potassium 3.1 mEq/L (3.5-5.1)
[2022-12-02] MEDS: SUCRALFATE 1GM/10ML UCUP FT SCH (07:51)
[2022-12-02] MEDS: ENOXAPARIN 40 MG/0.4 ML SQ SCH (07:57)
[2022-12-02] MEDS: PANTOPRAZOLE 40 MG INJ IVP SCH (07:57)
[2022-12-02] MEDS: POTASSIUM CL SA 10 MEQ TAB PO SCH (07:57)
[2022-12-02] MEDS: UREA 15 GM POWDER PACKET PO SCH (07:58)
[2022-12-02 08:19] VITALS: O2SAT 99
[2022-12-02 08:55] VITALS: BP 130/70; TEMP 98.2
--- NOTE | 2022-12-02 09:51 | P.DS ---
Admission Date: 11/26/22 Discharge Date: 12/02/22 Disposition: ROUTINE DISCHARGE Discharge Condition: FAIR Reason for Admission: hyponatremia, intractable nausea/vomiting Brief History of Present Illness: 67-year-old female, PMH: Gastritis/esophagitis, prior upper GI bleed (1 year ago), TIA vs CVA, mild COPD, CAD s/p PCI (3 years ago), chronic intermittent loose stool, s/p lap band surgery presented to ED due to generalized weakness, inability to stay standing for a few minutes. She reported 1 week of progressively worsening intractable nausea/vomiting with epigastric pain. No hematemesis. She had diarrhea 2 weeks prior. She reported history of irritable bowel syndrome with alternating constipation and diarrhea. She stated she stopped taking all her medications about 2 weeks prior due to not feeling well including her pantoprazole. In the ED, she was found to be hyponatremic to 120, renal function normal, no leukocytosis or lactic acidosis. CT abd/pelvis was rather unremarkable. Patient was hospitalized for further management. Hospital Course: Diagnosis Hyponatremia secondary to hypovolemia Intractable nausea/vomiting GERD Irritable bowel syndrome h/o lap band surgery COPD, chronic Patient was admitted to the medical floor and the following medical problems addressed Hyponatremia Secondary to combination of hypovolemia from diarrhea and SIADH Nephrology saw patient and assisted with management. She was placed on urea tablet and given a dose of tolvaptan. Sodium level significantly improved. Patient's symptoms of nausea improved. She tolerated diet. She was ambulatory with stable vitals Patient is discharged with urea tablet to continue treatment for SIADH. GERD/history of Lap-Band surgery CT negative, lipase normal, LFTs ok History of gastric lap band. Abdominal pain likely secondary to GERD/gastritis Patient treated with protonix IV BID, carafate; She tolerated diet. She is prescribed oral Protonix and sucralfate Outpatient follow-up with GI. Irritable bowel syndrome Patient with alternating constipation and diarrhea. Diarrhea was preceded by days of constipation COPD Stable without acute exacerbation. Vital Signs/Physical Exam: Temp Pulse Resp BP Pulse Ox 98.2 F 53 16 130/70 100 12/02/22 08:00 12/02/22 08:00 12/02/22 08:00 12/02/22 08:00 12/02/22 08:00 General: Alert, In no apparent distress, Oriented x3 HEENT: Mucous membr. moist/pink Neck: Supple, JVD not distended Respiratory: Clear to auscultation bilaterally, Normal air movement Cardiovascular: Regular rate/rhythm, Normal S1 S2 Gastrointestinal: Normal bowel sounds, Soft and benign, Non-distended, No ascites Musculoskeletal: No swelling Integumentary: No rashes, No cyanosis Neurological: Normal strength at 5/5 x4 extr Laboratory Data at Discharge: WBC 7.50 thou/uL (4.3-10.9) 11/29/22 06:47 Hgb 13.5 g/dL (12.0-15.0) D 11/29/22 06:47 Hct 37.7 % (36.0-45.0) 11/29/22 06:47 Plt Count 236 thou/uL (152-406) 11/29/22 06:47 PT 13.1 SECONDS (9.5-12.5) H 11/26/22 12:58 INR 1.19 11/26/22 12:58 Sodium 133 mEq/L (136-145) L 12/02/22 06:58 Potassium 3.1 mEq/L (3.5-5.1) L 12/02/22 06:58 BUN 7 mg/dL (7-18) 12/02/22 06:58 Creatinine 0.80 mg/dL (0.55-1.02) 12/02/22 06:58 Glucose 126 mg/dL (74-106) H 12/02/22 06:58 Phosphorus 3.1 mg/dL (2.5-4.9) 11/30/22 01:51 Magnesium 2.1 mg/dL (1.6-2.4) 11/30/22 01:51 Total Bilirubin 0.5 mg/dL (0.2-1.0) 11/27/22 02:57 AST 26 U/L (15-37) 11/27/22 02:57 ALT 16 U/L (13-56) 11/27/22 02:57 Alkaline Phosphatase 87 U/L (45-117) D 11/27/22 02:57 Lipase 21 U/L (13-75) 11/26/22 12:40 Home Medications: Metoprolol Tartrate [Lopressor*] 25 mg PO BID 6AM 6PM #60 tab 12/02/22 Pantoprazole [Protonix Tab] 40 mg PO BID #60 tab 12/02/22 Potassium Oral Tab [Klor-Con 10 mEq Tab*] 20 meq PO BID #30 tab 12/02/22 Sucralfate [Carafate*] 10 ml PO ACHS #1 bottle 12/02/22 Urea [Ure-Na] 30 gm PO DAILY #30 packet 12/02/22 New Medications: Sucralfate [Carafate*] 10 ml PO ACHS #1 bottle Potassium Oral Tab [Klor-Con 10 mEq Tab*] 20 meq PO BID #30 tab Metoprolol Tartrate [Lopressor*] 25 mg PO BID 6AM 6PM #60 tab Pantoprazole [Protonix Tab] 40 mg PO BID #60 tab Urea [Ure-Na] 30 gm PO DAILY #30 packet Physician Discharge Instructions: PROBLEM: Hyponatremia, Intractable Nausea GOAL: Clear understanding of disease process INSTRUCTIONS: Follow up with PCP in 1-2 weeks. Follow up with Dr Reyes in 1-2 weeks. Call 2nd floor nurses station if you have any medication questions. Return to ER if symptoms worsen. Diet: GI Soft Activity: As tolerated Follow up with a Forest Resources Professor of your choice: SHAKILA ACOSTA, JOVANNY [address] [place] [address] th a Family Medicine Physician of your choice: ARI BACA, YECENIA [address] [place] [address] DHEERAJ Ruano O, [facility] [address] [address] LEILANI BACA, NAINA Mcintyre [address] [facility], [address] [place] [address] JOE BOOTHE MD [address] [facility], [address] [place] [address] KAILEY COX MD [address] [facility] [address], [address] [place] [address] FANNY BACA, MYRON K [address] [facility], [address] [place] [address] DANYELL SIMMONS DO LY [address] [facility], [address] [place] [address] GAUTAM MORAP, MELVIN K [address] [facility], [address] [place] [address] KASSY MICHEL DOH [address] [facility], [address] [place] [address] Diet: Regular Activity: Ad freddy Followup: Jovanny Reyes DO [ACTIVE - CAN ADMIT] - 1-2 Weeks (Call to make an appointment in 1-2 weeks. ) OOT,OOT [Primary Care Provider] - 1-2 Weeks (Call to make an appointment.) Time spent managing pt's care (in minutes): 36
== END 2022-12-02 10:45 | disposition home or self-care (01) | DRG 645 ==
LOC: ER 12:21 → ERHOLD 15:53 → 2ND 16:51
PROVIDERS: ADMIT Hospitalist; ATTEND Internal Medicine
DX: E22.2 Syndrome of inappropriate secretion of antidiuretic hormone (principal); I10 Essential (primary) hypertension; D64.9 Anemia, unspecified; E86.0 Dehydration; E86.1 Hypovolemia; E87.6 Hypokalemia; E83.39 Other disorders of phosphorus metabolism; K58.1 Irritable bowel syndrome with constipation; K29.70 Gastritis, unspecified, without bleeding; K21.9 Gastro-esophageal reflux disease without esophagitis; J44.9 Chronic obstructive pulmonary disease, unspecified; I25.10 Atherosclerotic heart disease of native coronary artery without angina pectoris; F17.210 Nicotine dependence, cigarettes, uncomplicated; Z66 Do not resuscitate; Z88.8 Allergy status to other drugs, medicaments and biological substances; Z98.84 Bariatric surgery status; Z90.49 Acquired absence of other specified parts of digestive tract; Z86.73 Personal history of transient ischemic attack (TIA), and cerebral infarction without residual deficits; Z90.710 Acquired absence of both cervix and uterus; Z79.899 Other long term (current) drug therapy
CPT/HCPCS: 36415; 51702; 70450; 71045; 71250; 74176; 80048; 80053; 80069; 80076; 81001; 83605; 83690; 83735; 83880; 83930; 83935; 84100; 84132; 84295; 84300; 84484; 85025; 85610; 93005; 94760; 96361; 96374; 96375; 99285; A4216; C9113; J0360; J1650; J1940; J2270; J2405; J3480; J7030; J8499

== ENCOUNTER 2023-02-04 08:43 | Emergency (ER) | payer MEDICARE, OTHER ==
--- OUTSIDE RECORDS SUMMARY | 2023-02-04 08:49 | XMS REPORT | Continuity of Care Document ---
:1955 Author Organization [facility] t Address [address] [place] [address] Care Team Providers Name Role Phone Deborah Gomez MD Primary Care Physician Jonathon Phillips Attending Clinician Unavailable Jonathon Phillips Attending Clinician Unavailable [email or web address] Attending Clinician Unavailable Mickie Cronin RN Attending Clinician Unavailable ALTHEA RIBERA Attending Clinician Unavailable [facility]ending Clinician Unavailable Tray Farfan MD Attending Clinician Clayton BACA, Soledad Recinos Attending Clinician [phone] Sulema Casas MD Attending Clinician Sarai Garcia MD Attending Clinician Mari Estrella MD Attending Clinician Zoran BACA, Jamia Infante Attending Clinician Raffaele Hurtado MD Attending Clinician Deborah Gomez MD Attending Clinician Bernard Haider MA Attending Clinician Unavailable Sarah Ordoñez MA Attending Clinician Unavailable Josh Oakes MA Attending Clinician Unavailable Macey MCKEON, Estrellita Attending Clinician Jeanette BACA, Kishan Medley Attending Clinician [phone] Jamia Jean MA Attending Clinician Unavailable Margy Clifton Attending Clinician [phone] Violet Haider MA Attending Clinician Unavailable [...] Clinician Unavailable Jonathon Phillips Admitting Clinician Unavailable [email or web address]_R Admitting Clinician Unavailable ALTHEA RIBERA Admitting Clinician Unavailable SULEMA CASAS Admitting Clinician Unavailable VENICE ALDRIDGE Admitting Clinician Unavailable MD VENICE ALDRIDGE Admitting Clinician Unavailable CHAPARRO CROWLEY Admitting Clinician Unavailable MD CHAPARRO CROWLEY Admitting Clinician Unavailab Abimael Cox Admitting Clinician Unavailable Silvana GARCIA M.D., Lizbeth Pina Admitting Clinician Unavaila ble Payers Payer Name Policy Type Policy Number Effective Date Expiration Date Kenney forte [facility] [id number] 2022 (O) 00:00:00 [facility] [id number] 2022 (MEDICARE 00:00:00 REPLACEMENT HMO) 2 [id number] 2022 00:00:00 [facility] [id number] 2019 00:00:00 Problems Condition Condition Condition Status [...] Disease Active Overview: Method i deficiency deficiency 05-20 st anemia anemia 00:00: g of this Hospita 00 note l might be different from the original. Added automatic ally from request for surgery [id number] Alcohol Alcohol Disease Active Methodi dependence dependence [...] l s Procardi Drug Active Medical a [facility] Procardi Drug Active Medical a [facility] Procardi Drug Active Medical a [facility] Procardi Drug Active Medical a [facility] Procardi Drug Active Medical a [facility] Procardi Drug Active Medical a [facility] Procardi Drug Active Medical a [facility] Procardi Drug Active Medical [facility] Procardi Drug Active Medical a [facility] Procardi Drug Active Medical a [facility] Procardi Drug Active Medical a [facility] Procardi Drug Active Medical a [facility] Procardi Drug Active Medical [facility] Procardi Drug Active Medical [facility] Procardi Drug Active Medical a [facility] Procardi Drug Active Medical a [facility] Procardi Drug Active Medical a [facility] Procardi Drug Active Medical a [facility] Procardi Drug Active Medical a [facility] Procardi Drug Active Medical a [facility] Procardi Drug Active Medical a [facility] Family History Family Member Diagnosis Comments Start Date Stop Date Source Natural brother Cancer [facility] Natural brother Bipolar disorder Met [facility] Natural father Diabetes [facility] Natural father Hyperlipidemia Method [facility] Natural father Hypertension [facility] Natural mother Cancer [facility] Natural mother Diabetes [facility] Natural [facility] Natural mother Hyperlipidemia Method [facility] Natural mother Hypertension [facility] Natural mother Stroke [facility] Social History Social Habit Start Date Stop Date Quantity Comments Source Gender identity 2022-04-22 Identifies as Method ist 20:33:51 female gender Hospital (finding) History of tobacco Cigarette Smoker [facility] use Hospital History [facility] Alcohol Std Drinks Hospit al Sexual orientation [facility] History of Social 2022-06-22 2022-06-[address] function 00:00:00 00:00:00 Hospital Alcohol intake 2022-05-29 2022-05-29 Ex-drinker [facility] 00:00:00 00:00:00 (finding) Hospital Tobacco use and 2022-05-20 2022-05-20 Smokeless tobacco [facility] exposure 00:00:00 00:00:00 non-user Hospital Cigarettes smoked 2022-05-20 2022-05-[address] current (pack per 00:00:00 00:00:00 Hospita l day) - Reported Cigarette 2022-05-20 2022-05-20 [facility] pack-years 00:00:00 00:00:00 Hospital History [facility] Social 2022-05-11 2022-05-11 3 [facility] Phone 00:00:00 00:00:00 Hospita l History [facility] Social 2022-05-11 2022-05-11 5 [facility] Get 00:00:00 00:00:00 Hospital Together History [facility] Social 2022-05-11 2022-05-11 1 [facility] Zoroastrianism 00:00:00 00:00:00 Hospit al History [facility] Social 2022-05-11 2022-05-11 2 [facility] 00:00:00 00:00:00 Hospital Membership History [facility] Social 2022-05-11 2022-05-11 1 [facility] 00:00:00 00:00:00 Hospital Meetings History [facility] Social 2022-05-11 2022-05-11 4 [facility] Living 00:00:00 00:00:00 Hospit al History [facility] Food 2022-05-11 2022-05-[address] Worry 00:00:00 00:00:00 Hospital History [facility] Food 2022-05-11 2022-05-[address] Scarcity 00:00:00 00:00:00 Hospital History [facility] 2022-05-11 2022-05-11 1 [facility] Transport Med 00:00:00 00:00:00 Hospital History [facility] 2022-05-11 2022-05-11 1 [facility] Transport Non-Med 00:00:00 00:00:00 Hospita l History [facility] 2020-04-24 2020-04-24 1 [facility] Alcohol Frequency 00:00:00 00:00:00 Hospita l History [facility] 2020-04-24 2020-04-24 1 [facility] Alcohol Binge 00:00:00 00:00:00 Hospital Sex Ass[birth year] At [birth year] KIM Tao 00:00:00 00:00:00 [facility] Center Smoking Status Start Date Stop Date Source Ex-smoker 2022-05-20 00:00:00 2022-05-20 [facility]ations Ordered Filled Start Stop Current Ordering [...] Q.5D Take 1 Met hodi e 3-13 -13 tablet (40 st (PROTONIX) 00:00: 04:59 mg [...] 119g Take 119 g Methodi e glycol -09 13-[address] (GLYCOLAX) 00:00: 00:00 take as Hos irena 17 00 :00 directed l gram/dose (take as powder instructed for bowel prep). polyethylen 2023-0 2023- No 119g Take 119 g Methodi e glycol -09 13-[address] (GLYCOLAX) 00:00: 00:00 take as Hos irena 17 00 :00 directed l gram/dose (take as powder instructed for bowel prep). polyethylen 2023-0 2023- No 119g Take 119 g Methodi e glycol -09 13-[address] (GLYCOLAX) 00:00: 00:00 take as Hos irena 17 00 :00 directed l gram/dose (take as powder instructed for bowel prep). polyethylen 2023-0 2023- No 119g Take 119 g Methodi e glycol -09 13-[address] (GLYCOLAX) 00:00: 00:00 take as Hos irena 17 00 :00 directed l gram/dose (take as powder instructed for bowel prep). aspirin 2023-0 2023- No 81mg QD Take 81 mg Met hodi (ECOTRIN) 2-20 02-[address] 81 MG 10:01: 00:00 daily. Hospita enteric 05 :00 l coated tablet aspirin 2023-0 2023- No 81mg QD Take 81 mg Met hodi (ECOTRIN) 2-20 02-[address] 81 MG 10:01: 00:00 daily. Hospita enteric 05 :00 l coated tablet aspirin 2023-0 2023- No 81mg QD Take 81 mg Met hodi (ECOTRIN) 2-20 02-[address] 81 MG 10:01: 00:00 daily. Hospita enteric 05 :00 l coated tablet aspirin 2023-0 2023- No 81mg QD Take 81 mg Met hodi (ECOTRIN) 2-20 02-[address] 81 MG 10:01: 00:00 daily. Hospita enteric 05 :00 l coated tablet aspirin 2023-0 2023- No 81mg QD Take 81 mg Met hodi (ECOTRIN) 2-20 02-[address] 81 MG 10:01: 00:00 daily. Hospita enteric 05 :00 l coated tablet sulfamethox 2022- No [id number] 1{tbl} Q.5D Take 1 Methodi azole-trime 2-20 - tablet by st thoprim 00:00: 05:59 mouth 2 Hospit a (BACTRIM 00 :00 (two) l DS) 800-160 times a mg per day for 5 tablet days. sulfamethox 2022- No [id number] 1{tbl} Q.5D Take 1 Methodi azole-trime 2-03 05- tablet by st thoprim 00:00: 05:59 mouth 2 Hospit a (BACTRIM 00 :00 (two) l DS) 800-160 times a mg per day for 5 tablet days. sulfamethox No [id number] 1{tbl} Q.5D Take 1 Methodi azole-trime 2-03 05- tablet by st thoprim 00:00: 05:59 mouth 2 Hospit a (BACTRIM 00 :00 (two) l DS) 800-160 times a mg per day for 5 tablet days. sulfamethox 2022- No [id number] 1{tbl} Q.5D Take 1 Methodi azole-trime -03 05- tablet by st thoprim 00:00: 05:59 mouth 2 Hospit a (BACTRIM 00 :00 (two) l DS) 800-160 times a mg per day for 5 tablet days. sulfamethox 2022- No [id number] 1{tbl} Q.5D Take 1 Methodi azole-trime 2-03 05- tablet by st thoprim 00:00: 05:59 mouth 2 Hospit a (BACTRIM 00 :00 (two) l DS) 800-160 times a mg per day for 5 tablet days. sulfamethox 2022- No [id number] 1{tbl} Q.5D Take 1 Methodi azole-trime 2-10 13-[address] thoprim 00:00: 00:00 mouth 2 Hospit a (BACTRIM 00 :00 (two) l DS) 800-160 times a mg per day for 5 tablet days. sulfamethox 2022- No [id number] 1{tbl} Q.5D Take 1 Methodi azole-trime 04-[address] thoprim 00:00: 00:00 mouth 2 Hospit a (BACTRIM 00 :00 (two) l DS) 800-160 times a mg per day for 5 tablet days. sulfamethox 2022- No [id number] 1{tbl} Q.5D Take 1 Methodi azole-trime 04-[address] thoprim 00:00: 00:00 mouth 2 Hospit a (BACTRIM 00 :00 (two) l DS) 800-160 times a mg per day for 5 tablet days. sulfamethox 2022- No [id number] 1{tbl} Q.5D Take 1 Methodi azole-trime 04-[address] thoprim 00:00: 00:00 mouth 2 Hospit a (BACTRIM 00 :00 (two) l DS) 800-160 times a mg per day for 5 tablet days. sulfamethox 2022- No [id number] 1{tbl} Q.5D Take 1 Methodi azole-trime 04-[address] thoprim 00:00: 00:00 mouth 2 Hospit a (BACTRIM 00 :00 (two) l DS) 800-160 times a mg per day for 5 tablet days. predniSONE 2021- No [id number] 20mg Q.5D Take 1 Methodi (DELTASONE) 10-01-27 tablet (20 s t 20 mg 00:00: 04:59 mg total) Hospit a tablet 00 :00 by mouth 2 l (two) times a day for 5 days. predniSONE 2021- No [id number] 20mg Q.5D Take 1 Methodi (DELTASONE) - 07-27 tablet (20 s t 20 mg 00:00: [...] needed for nausea or vomiting. ondansetron 2021-0 2023- No 4mg Q8H Take 1 Met hodi (Zofran) 4 7-18 02-20 tablet (4 st MG tablet 00:00: 00:00 mg total) Ho spita 00 :00 by mouth l every 8 (eight) hours as needed for nausea or vomiting. ondansetron 2021-0 3- No 4mg Q8H Take 1 Met hodi (Zofran) 4 7-18 02-20 tablet (4 st MG tablet 00:00: 00:00 mg total) Ho spita 00 :00 by mouth l every 8 (eight) hours as needed for nausea or vomiting. ondansetron 2021-0 3- No 4mg Q8H Take 1 Met hodi (Zofran) 4 7-18 02-20 tablet (4 st MG tablet 00:00: 00:00 mg total) Ho spita 00 :00 by mouth l every 8 (eight) hours as needed for nausea or vomiting. ondansetron 2021-0 3- No 4mg Q8H Take 1 Met hodi (Zofran) 4 7-18 02-20 tablet (4 st MG tablet 00:00: 00:00 mg total) Ho spita 00 :00 by mouth l every 8 (eight) hours as needed for nausea or vomiting. varicella-z 2021-2021- No [id number] .5mL Inject 0.5 Methodi amanda 09-[address] gE-AS01B, 00:00: 04:59 the Hospita PF, 00 :00 shoulder, l (Shingrix, thigh, or PF,) 50 buttocks mcg/0.5 mL once for 1 suspension dose. for reconstitut ion IM injection varicella-z 2021- No [id number] .5mL Inject 0.5 Methodi amanda 09-[address] gE-AS01B, 00:00: 04:59 the Hospita PF, 00 :00 shoulder, l (Shingrix, thigh, or PF,) 50 buttocks mcg/0.5 mL once for 1 suspension dose. for reconstitut ion IM injection metoprolol 2021- No 25mg Q.5D Take 25 mg Methodi tartrate 5-[address] (LOPRESSOR) 13:22: 00:00 (two) Hosp noreen 25 mg 59 :00 times a l tablet day. metoprolol 2021-2021- No [id number] 25mg Q.5D Take 1 Methodi tartrate 5-30 10-18 tablet (25 st (LOPRESSOR) 00:00: 04:59 mg total) Hospita 25 mg 00 :00 by mouth 2 l tablet (two) times a day for 90 days. metoprolol 2021-2021- No [id number] 25mg Q.5D Take 1 Methodi tartrate 5-18 tablet (25 st (LOPRESSOR) 00:00: 04:59 mg total) Hospita 25 mg 00 :00 by mouth 2 l tablet (two) times a day for 90 days. albuterol 2022- No [id number] INHALE THE Methodi (ACCUNEB) 04-01-[address] 1.25 mg/3 00:00: 00:00 OF 1 VIAL Ho spita mL 00 :00 VIA l nebulizer NEBULIZER solution EVERY 6 (SIX) HOURS NEEDED FOR WHEEZING. albuterol 2022- No [id number] INHALE THE Methodi (ACCUNEB) 04-01-[address] 1.25 mg/3 00:00: 00:00 OF 1 VIAL Ho spita mL 00 :00 VIA l nebulizer NEBULIZER solution EVERY 6 (SIX) HOURS NEEDED FOR WHEEZING. albuterol 2022- No [id number] INHALE THE Methodi (ACCUNEB) 04-01-[address] 1.25 mg/3 00:00: 00:00 OF 1 VIAL Ho spita mL 00 :00 VIA l nebulizer NEBULIZER solution EVERY 6 (SIX) HOURS NEEDED FOR WHEEZING. albuterol 2022- No [id number] INHALE THE Methodi (ACCUNEB) 04-01-[address] 1.25 mg/3 00:00: 00:00 OF 1 VIAL Ho spita mL 00 :00 VIA l nebulizer NEBULIZER solution EVERY 6 (SIX) HOURS NEEDED FOR WHEEZING. albuterol 2022- No [id number] INHALE THE Methodi (ACCUNEB) 04-01 02-[address] 1.25 mg/3 00:00: 00:00 OF 1 VIAL Ho spita mL 00 :00 VIA l nebulizer NEBULIZER solution EVERY 6 (SIX) HOURS NEEDED FOR WHEEZING. acarbose 2020-03 Yes [id number] TAKE 1 Me thodi (PRECOSE) 2-[address] 25 MG 00:00: THREE Hospita tablet 00 TIMES l DAILY WITH MEALS acarbose 2020-03 Yes [id number] TAKE 1 Me thodi (PRECOSE) 2-[address] 25 MG 00:00: THREE Hospita tablet 00 TIMES l DAILY WITH MEALS acarbose 2020-03 Yes [id number] TAKE 1 Me thodi (PRECOSE) 2-[address] 25 MG 00:00: THREE Hospita tablet 00 TIMES l DAILY WITH MEALS acarbose 2020-03 Yes [id number] TAKE 1 Me thodi (PRECOSE) 2-[address] 25 MG 00:00: THREE Hospita tablet 00 TIMES l DAILY WITH MEALS acarbose 2020-03 Yes [id number] TAKE 1 Me thodi (PRECOSE) 2-[address] 25 MG 00:00: THREE Hospita tablet 00 TIMES l DAILY WITH MEALS DULoxetine 2020-03- No [id number] TAKE 1 Methodi (CYMBALTA) 03-16 07 CAPSULE(30 st 30 MG 00:00: 00:00 MG) BY Hospita capsule 00 :00 MOUTH l DAILY DULoxetine 2020-03- No [id number] TAKE 1 Methodi (CYMBALTA) 03-16 07 CAPSULE(30 st 30 MG 00:00: 00:00 MG) BY Hospita capsule 00 :00 MOUTH l DAILY levothyroxi 2020-03 Yes [id number] TAKE 1 Methodi ne 0-19 TABLET(25 st (SYNTHROID) 00:00: MCG) BY Hos irena 25 mcg 00 MOUTH l tablet DAILY levothyroxi 2020-03 Yes [id number] TAKE 1 Methodi ne 0-19 TABLET(25 st (SYNTHROID) 00:00: MCG) BY Hos irena 25 mcg 00 MOUTH l tablet DAILY levothyroxi 2020-03 Yes [id number] TAKE 1 Methodi ne 0-19 TABLET(25 st (SYNTHROID) 00:00: MCG) BY Hos irena 25 mcg 00 MOUTH l tablet DAILY levothyroxi 2020-03 Yes [id number] TAKE 1 Methodi ne 0-19 TABLET(25 st (SYNTHROID) 00:00: MCG) BY Hos irena 25 mcg 00 MOUTH l tablet DAILY levothyroxi 2020-03 Yes [id number] TAKE 1 Methodi ne 0-19 TABLET(25 st (SYNTHROID) 00:00: MCG) BY Hos irena 25 mcg 00 MOUTH l tablet DAILY nebulizers 2020-0 2023- No For Method i misc 7-18 -[address] 00:00: 00:00 use Hospita 00 :00 l nebulizers 2020-0 2023- No For Method i misc 7-18 -[address] 00:00: 00:00 use Hospita 00 :00 l nebulizers 2020-0 2023- No For Method i misc 7-18 -[address] 00:00: 00:00 use Hospita 00 :00 l nebulizers 2020-0 2023- No For Method i misc 7-18 -[address] 00:00: 00:00 use Hospita 00 :00 l nebulizers 2020-0 2023- No For Method i misc 7-18 -[address] 00:00: 00:00 use Hospita 00 :00 l lisinopriL 2020-0 Yes 40mg QD Take 1 Metho di (PRINIVIL) 7-14 tablet (40 st 40 mg 00:00: mg total) Hospita tablet 00 by mouth l daily. lisinopriL 2020-0 Yes 40mg QD Take 1 Meth[facility] di (PRINIVIL) 7-14 tablet (40 st 40 mg 00:00: mg total) Hospita tablet 00 by mouth l daily. lisinopriL 2021-0 Yes 40mg QD Take 1 Metho di (PRINIVIL) 7-14 tablet (40 st 40 mg 00:00: mg total) Hospita tablet 00 by mouth l daily. lisinopriL 2021-0 Yes 40mg QD Take 1 Metho di (PRINIVIL) 7-14 tablet (40 st 40 mg 00:00: mg total) Hospita tablet 00 by mouth l daily. lisinopriL 2021-0 Yes 40mg QD Take 1 Metho di (PRINIVIL) 7-14 tablet (40 st 40 mg 00:00: mg total) Hospita tablet 00 by mouth l daily. clopidogreL 2021-0 Yes 75mg QD Take 1 Meth xavier (PLAVIX) 75 4-27 tablet (75 st mg tablet 00:00: mg total) Hos irena 00 by mouth l daily. clopidogreL 2021-0 Yes 75mg QD Take 1 Meth xavier (PLAVIX) 75 4-27 tablet (75 st mg tablet 00:00: mg total) Hos irena 00 by mouth l daily. clopidogreL 2021-0 Yes 75mg QD Take 1 Meth xavier (PLAVIX) 75 4-27 tablet (75 st mg tablet 00:00: mg total) Hos irena 00 by mouth l daily. clopidogreL 2021-0 Yes 75mg QD Take 1 Meth xavier (PLAVIX) 75 4-27 tablet (75 st mg tablet 00:00: mg total) Hos irena 00 by mouth l daily. clopidogreL 2021-0 Yes 75mg QD Take 1 Meth xavier (PLAVIX) 75 4-27 tablet (75 st mg tablet 00:00: mg total) Hos irena 00 by mouth l daily. Immunizations Ordered Filled Immunization Date Status Comments [facility] e Immunization Name Name Pneumococcal 2021-09-10 Completed [facility] 20-valent Conjugate 00:00:00 Hospi tristan Vaccine Pneumococcal 2021-09-10 Completed [facility] 20-valent Conjugate 00:00:00 [facility] Vaccine Pneumococcal 2021-09-10 Completed [facility] 20-valent Conjugate 00:00:00 [facility] Vaccine PFIZER COVID-19 2021-02-19 Completed [facility] MRNA VACCINATION 00:00:00 [facility] PFIZER COVID-19 2021-02-19 Completed [facility] MRNA VACCINATION 00:00:00 [facility] PFIZER COVID-19 2021-02-19 Completed [facility] MRNA VACCINATION 00:00:00 [facility] PFIZER COVID-19 2020-12-16 Completed [facility] MRNA VACCINATION 00:00:00 [facility] PFIZER COVID-19 2020-12-16 Completed [facility] MRNA VACCINATION 00:00:00 [facility] PFIZER COVID-19 2020-12-16 Completed [facility] MRNA VACCINATION 00:00:00 Hospital PFIZER COVID-19 2020-10-22 Completed [facility] MRNA VACCINATION 00:00:00 Hospital PFIZER COVID-19 2020-10-22 Completed [facility] MRNA VACCINATION 00:00:00 Hospital PFIZER COVID-19 2020-10-22 Completed [facility] MRNA VACCINATION 00:00:00 Hospital FLUZONE HIGH-DOSE 2020-04-[address] PF 00:00:00 Hospital FLUZONE HIGH-DOSE 2020-04-[address] PF 00:00:00 Hospital FLUZONE HIGH-DOSE 2020-04-[address] PF 00:00:00 Hospital FLUZONE HIGH-DOSE Unknown Completed [facility] PF Hospital PFIZER COVID-19 Unknown Completed [facility] MRNA VACCINATION Hospital PFIZER COVID-19 Unknown Completed [facility] MRNA VACCINATION Hospital PFIZER COVID-19 Unknown Completed [facility] MRNA VACCINATION Hospital Pneumococcal Unknown Completed [facility] 20-valent Conjugate Hospi tristan Vaccine FLUZONE HIGH-DOSE Unknown Completed [facility] PF Hospital PFIZER COVID-19 Unknown Completed [facility] MRNA VACCINATION Hospital PFIZER COVID-19 Unknown Completed [facility] MRNA VACCINATION Hospital PFIZER COVID-19 Unknown Completed [facility] MRNA VACCINATION Hospital Pneumococcal Unknown Completed [facility] 20-valent Conjugate Hospi tristan Vaccine Vital Signs Vital Name Observation Time Observation [...] kg Heart rate 2022-05-24 13:30:00 78 /min [facility] Systolic blood 2022-05-24 12:27:52 139 mm[Hg] [facility] pressure Diastolic blood 2022-05-24 12:27:52 72 mm[Hg] [facility] pressure Body temperature 2022-05-24 12:27:52 36.44 Bijal [facility] Respiratory rate 2022-05-24 12:27:52 18 /min [facility] Oxygen saturation in 2022-05-24 12:27:52 98 /min [facility] Arterial blood by Pulse oximetry Body weight 2022-05-24 10:37:00 58.514 kg [facility] BMI 2022-05-24 10:37:00 23.59 kg/m2 [facility] Body height 2022-05-22 13:39:00 157.5 cm [facility] Procedures Procedure Date / Time Performing Source Performed Clinician POC GLUCOSE 2022-05-24 Jamia Meehan 13:33:00 [facility] BASIC METABOLIC PANEL 2022-05-24 Jamia Meehan 10:10:00 [facility] CBC WITH PLATELET AND DIFFERENTIAL 2022-05-24 Elvia Meehan 10:10:00 [facility] MAGNESIUM LEVEL 2022-05-24 Jamia Meehan 10:10:00 [facility] ESTIMATED GFR 2022-05-24 Jamia Meehan 10:10:00 [facility] POC GLUCOSE 2022-05-24 Jamia Meehan 01:56:00 [facility] POC GLUCOSE 2022-05-23 Jamia Meehan 16:39:00 [facility] POC GLUCOSE 2022-05-23 Jamia Meehan 13:03:00 [facility] BASIC METABOLIC PANEL 2022-05-23 Mari Estrella [facility] 09:18:00 Hospital CBC WITH PLATELET AND DIFFERENTIAL 2022-05-23 Mari Estrella 09:18:00 Hospital ESTIMATED GFR 2022-05-23 Mari Estrella [facility] 09:18:00 Hospital POC GLUCOSE 2022-05-23 Jamia Meehan 02:34:00 [facility] POC GLUCOSE 2022-05-22 Jamia Meehan 23:05:00 [facility] POC GLUCOSE 2022-05-22 Jamia Meehan 16:54:00 [facility] ESOPHAGOGASTRODUODENOSCOPY (EGD) 2022-05-22 Tray Farfan 14:12:00 Hospital COLONOSCOPY 2022-05-22 Tray Farfan 14:12:00 Hospital SURGICAL PATHOLOGY REQUEST 2022-05-22 Jamia Meehan [facility] 13:21:00 [facility] BASIC METABOLIC PANEL 2022-05-22 Mari Estrella [facility] 12:00:00 Hospital CBC WITH PLATELET AND DIFFERENTIAL 2022-05-22 Mari Estrella 12:00:00 Hospital LIPID PANEL 2022-05-22 Mari Estrella [facility] 12:00:00 Hospital HEMOGLOBIN A1C 2022-05-22 Mari Estrella [facility] 12:00:00 Hospital VITAMIN B12 LEVEL 2022-05-22 Mari Estrella [facility] 12:00:00 Hospital CERULOPLASMIN LEVEL 2022-05-22 Mari Estrella [facility] 12:00:00 Hospital ESTIMATED GFR 2022-05-22 Mari Estrella [facility] 12:00:00 Hospital COPPER LEVEL, SERUM 2022-05-22 Mari Estrella My [facility] 11:05:00 Hospital POC GLUCOSE 2022-05-22 Mari Estrella [facility] 04:13:00 Hospital US HEPATIC 2022-05-22 Mari Estrella My [facility] 02:50:00 Hospital POC GLUCOSE 2022-05-21 Mari Estrella My [facility] 22:18:00 Hospital POC GLUCOSE 2022-05-21 Mari Estrella My [facility] 19:38:00 Hospital POC GLUCOSE 2022-05-21 Mari Estrella My [facility] 19:13:00 Hospital POC GLUCOSE 2022-05-21 Mari Estrella My [facility] 17:59:00 Hospital POC GLUCOSE 2022-05-21 Mari Estrella [facility] 13:56:00 Hospital CBC WITH PLATELET AND DIFFERENTIAL 2022-05-21 Jose, Sarai [facility] 09:58:00 [facility] COMPREHENSIVE METABOLIC PANEL 2022-05-21 Sarai Garcia [facility]ist 09:58:00 [facility] ESTIMATED GFR 2022-05-21 Jose, Sarai [facility] 09:58:00 [facility] POC GLUCOSE 2022-05-21 Jose, Sarai [facility] 02:44:00 [facility] TROPONIN T 2022-05-21 Jose, Sarai [facility] 01:37:00 [facility] TROPONIN T 2022-05-20 Jose, Sarai [facility] 23:42:00 [facility] POC GLUCOSE 2022-05-20 Jose, Sarai [facility] 23:41:00 [facility] TRANSFUSE RED BLOOD CELLS 2022-05-20 Soledad Arnold Method ist 22:25:00 [facility] TTE COMPLETE, WO CONTRAST, W 2022-05-20 Sarai Garcia Met hodist DOPPLER ([id number]) 20:24:00 [facility] [facility] TRANSF[facility] RED BLOOD CELLS 2022-05-20 Soledad Arnold Method ist 19:43:00 [facility] CT ABDOMEN PELVIS W CONTRAST 2022-05-20 Sarai Garcia Met hodist 19:40:42 [facility] US DUPLEX VENOUS LOWER EXTREMITY 2022-05-20 Soledad Arnoldist BILATERAL 18:53:00 [facility] TROPONIN T 2022-05-20 Sarai Garcia 18:20:00 [facility] ABO AND RH CONFIRMATION BY 2022-05-20 Sarai Garciao dist PROTOCOL 18:20:00 [facility] KS CRITICAL CARE ILL/INJURED 2022-05-20 Soledad Arnold hodist PATIENT INIT 30-74 MIN 17:10:18 [facility] ECG ED PRELIMINARY INTERPRETATION 2022-05-20 Donna Arnold 17:10:18 [facility] COMPREHENSIVE METABOLIC PANEL 2022-05-20 Soledad Arnold thodist 16:35:00 [facility] CBC WITH PLATELET AND DIFFERENTIAL 2022-05-20 Artemio Arnold 16:35:00 [facility] PROTHROMBIN TIME WITH INR 2022-05-20 Soledad Arnold ist 16:35:00 [facility] PARTIAL THROMBOPLASTIN TIME (PTT) 2022-05-20 Donna Arnold 16:35:00 [facility] TYPE AND SCREEN 2022-05-20 Soledad Arnold 16:35:00 [facility] ESTIMATED GFR 2022-05-20 Soledad Arnold 16:35:00 [facility] SMEAR REVIEW 2022-05-20 Soledad Arnold 16:35:00 [facility] ECG 12-LEAD 2022-05-20 Soledad Arnold 15:57:02 [facility] PREPARE RBC 2022-05-20 Soledad Arnold 15:35:00 [facility] TOTAL IRON BINDING CAPACITY 2022-05-18 Tray Farfan Meth odist 15:13:00 Hospital FERRITIN LEVEL 2022-05-18 Jose Farfan Daniel [facility] 15:13:00 Hospital COMPREHENSIVE METABOLIC PANEL 2022-05-18 Tray Farfan Me thodist 15:13:00 Hospital LIPASE LEVEL 2022-05-18 Jose Farfan Daniel [facility] 15:13:00 Hospital CBC WITH PLATELET AND DIFFERENTIAL 2022-05-18 Jose Farfan H aq [facility] 15:13:00 Hospital ESTIMATED GFR 2022-05-18 Tray Farfan [facility] 15:13:00 [facility] TOTAL IRON BINDING CAPACITY 2022-05-18 Tray Farfan Meth odist 15:13:00 Hospital URINE CULTURE 2022-04-21 Deborah Gomezist 16:01:00 [facility] POC URINALYSIS DIPSTICK 2022-04-21 Deborah Gomez t 15:20:26 Hospital CBC WITH PLATELET AND DIFFERENTIAL 2022-04-21 Deborah Gomez 15:17:00 Hospital BASIC METABOLIC PANEL 2022-04-21 Deborah Gomez 15:17:00 [facility] MRI LUMBAR SPINE WO CONTRAST 2021-09-23 Margy Snyder [facility] 13:20:00 [facility] HEMOGLOBIN A1C 2021-09-10 Deborah Gomez 18:40:00 [facility] HEPATITIS C ANTIBODY 2021-09-10 Deborah Gomez 18:40:00 [facility] MICROALBUMIN / CREATININE URINE 2021-09-10 Deborah Gomez RATIO 18:40:00 Hospital XR LUMBAR SPINE 2 OR 3 VW 2021-08-13 Margy Snyder Method ist 15:48:39 [facility] CBC WITH PLATELET AND DIFFERENTIAL 2021-07-30 Deborah Gomez 18:32:00 [facility] BASIC METABOLIC PANEL 2021-07-30 Deborah Gomez 18:32:00 [facility] LIPID PANEL 2021-07-30 Deborah Gomez 18:32:00 [facility] Plan of Care Planned Activity Planned Date Details Comments Source Future Scheduled 2023-01-08 Screening for [facility] Test 09:11:14 malignant neoplasm of colon (procedure) [code = 291583690] Future Scheduled 2023-01-08 Screening for [facility] Test 09:11:14 malignant neoplasm of colon (procedure) [code = 074813795] Future Scheduled 2023-01-08 Screening for [facility] Test 09:11:14 malignant neoplasm of colon (procedure) [code = 329316555] Future Scheduled 2023-01-08 SHINGLES VACCINES (1 Met [facility] Test 09:11:14 of 2) [code = SHINGLES VACCINES (1 of 2)] Future Scheduled 2023-01-08 DIABETES: RETINAL EYE [facility] 09:11:14 EXAM [code = DIABETES: RETINAL EYE EXAM] Future Scheduled 2023-01-08 BREAST CANCER [facility] Test 09:11:14 SCREENING [code = BREAST CANCER SCREENING] Future Scheduled 2023-01-08 [facility] Test 09:11:14 [code = DIABETIC FOOT EXAM] Future Scheduled 2023-01-08 URINE [facility]BUMIN [facility] Test 09:11:14 [code = URINE MICROALBUMIN] Future Scheduled 2023-01-08 COVID-19 VACCINE (4 - [facility] Hospital Test 09:11:14 season) [code = COVID-19 VACCINE ( - season)] Future Scheduled 2023-01-08 INFLUENZA VACCINE (#1) [facility] Test 09:11:14 [code = INFLUENZA VACCINE (#1)] Future Scheduled 2023-01-08 [facility] for [facility] Test 09:11:14 malignant neoplasm of colon (procedure) [code = 940984007] Future Scheduled 2023-01-08 [facility] Test 09:11:14 malignant neoplasm of colon (procedure) [code = 727725584] Future Scheduled 2022-12-06 [facility] Test 12:51:20 malignant neoplasm of colon (procedure) [code = 075447677] Future Scheduled 2022-12-06 [facility] Test 12:51:20 malignant neoplasm of colon (procedure) [code = 825812787] Future Scheduled 2022-12-06 [facility] Test 12:51:20 malignant neoplasm of colon (procedure) [code = 143346875] Future Scheduled 2022-12-06 SHINGLES VACCINES (1 [facility] Test 12:51:20 of 2) [code = SHINGLES VACCINES (1 of 2)] Future Scheduled 2022-12-06 DIABETES: RETINAL EYE Me [facility] Test 12:51:20 EXAM [code = DIABETES: RETINAL EYE EXAM] Future Scheduled 2022-12-06 BREAST CANCER [facility] Test 12:51:20 SCREENING [code = BREAST CANCER SCREENING] Future Scheduled 2022-12-06 COVID-19 VACCINE (4 - [facility] Test 12:51:20 Pfizer series) [code = COVID-19 VACCINE (4 - Pfizer series)] Future Scheduled 2022-12-06 [facility] 12:51:20 [code = DIABETIC FOOT EXAM] Future Scheduled 2022-12-06 [facility] Test 12:51:20 [code = URINE MICROALBUMIN] Future Scheduled 2022-12-06 INFLUENZA VACCINE (#1) [facility] Test 12:51:20 [code = INFLUENZA VACCINE (#1)] Future Scheduled 2022-12-06 [facility] Test 12:51:20 malignant neoplasm of colon (procedure) [code = 879235040] Future Scheduled 2022-12-06 [facility] Test 12:51:20 malignant neoplasm of colon (procedure) [code = 110800487] Future Scheduled 2022-11-17 [facility] Test 20:12:18 malignant neoplasm of colon (procedure) [code = 970936362] Future Scheduled 2022-11-17 [facility] Test 20:12:18 malignant neoplasm of colon (procedure) [code = 580599447] Future Scheduled 2022-11-17 [facility] Test 20:12:18 malignant neoplasm of colon (procedure) [code = 078126133] Future Scheduled 2022-11-17 [facility]IN[facility] ([facility] 20:12:18 of 2) [code = SHINGLES VACCINES (1 of 2)] Future Scheduled 2022-11-17 DIABETES: RETINAL EYE [facility] Test 20:12:18 EXAM [code = DIABETES: RETINAL EYE EXAM] Future Scheduled 2022-11-17 BREAST CANCER [facility] Test 20:12:18 SCREENING [code = BREAST CANCER SCREENING] Future Scheduled 2022-11-17 COVID-19 VACCINE (4 - [facility] Test 20:12:18 Pfizer series) [code = COVID-19 VACCINE (4 - Pfizer series)] Future Scheduled 2022-11-17 [facility] Test 20:12:18 [code = DIABETIC FOOT EXAM] Future Scheduled 2022-11-17 URINE [facility]BUMIN [facility] Test 20:12:18 [code = URINE MICROALBUMIN] Future Scheduled 2022-11-17 INFLUENZA VACCINE (#1) [facility] Test 20:12:18 [code = INFLUENZA VACCINE (#1)] Future Scheduled 2022-11-17 Screening for [facility] Test 20:12:18 malignant neoplasm of colon (procedure) [code = 911124213] Future Scheduled 2022-11-17 [facility] Test 20:12:18 malignant neoplasm of colon (procedure) [code = 751582595] Future Scheduled 2022-07-28 SHINGLES VACCINES (1 Met [facility] Test 07:13:53 of 2) [code = SHINGLES VACCINES (1 of 2)] Future Scheduled 2022-07-28 DIABETES: RETINAL EYE Me [facility] Test 07:13:53 EXAM [code = DIABETES: RETINAL EYE EXAM] Future Scheduled 2022-07-28 BREAST CANCER [facility] Test 07:13:53 SCREENING [code = BREAST CANCER SCREENING] Future Scheduled 2022-07-28 COVID-19 VACCINE (4 - [facility] Test 07:13:53 Booster for Pfizer series) [code = COVID-19 VACCINE (4 - Booster for Pfizer series)] Future Scheduled 2022-07-28 DIABETIC FOOT EXAM [facility] Test 07:13:53 [code = DIABETIC FOOT EXAM] Future Scheduled 2022-07-28 URINE MICROALBUMIN [facility] Test 07:13:53 [code = URINE MICROALBUMIN] Future Scheduled 2022-07-28 INFLUENZA VACCINE [facility] Hospital Test 07:13:53 [code = INFLUENZA VACCINE] Future Scheduled 2022-07-[address] [facility] Test 07:13:53 [code = COLONOSCOPY SCREENING] Future Scheduled 2022-05-27 SHINGLES VACCINES (1 Met [facility] Test 10:06:33 of 2) [code = SHINGLES VACCINES (1 of 2)] Future Scheduled 2022-05-27 DIABETES: RETINAL EYE [facility] Test 10:06:33 EXAM [code = DIABETES: RETINAL EYE EXAM] Future Scheduled 2022-05-27 COLONOSCOPY SCREENING [facility] Hospital Test 10:06:33 [code = COLONOSCOPY SCREENING] Future Scheduled 2022-05-27 BREAST CANCER [facility] Test 10:06:33 SCREENING [code = BREAST CANCER SCREENING] Future Scheduled 2022-05-27 COVID-19 VACCINE (4 - [facility] Test 10:06:33 Booster for Pfizer series) [code = COVID-19 VACCINE (4 - Booster for Pfizer series)] Future Scheduled 2022-05-27 INFLUENZA VACCINE [facility] Hospital Test 10:06:33 [code = INFLUENZA VACCINE] Future Scheduled 2022-05-27 DIABETIC FOOT EXAM [facility] Test 10:06:33 [code = DIABETIC FOOT EXAM] Future Scheduled 2022-05-27 URINE MICROALBUMIN [facility] Test 10:06:33 [code = URINE MICROALBUMIN] Encounters Start End Encounter Admission Attending Care Care Encounter Source Date/Time Date/Time Type Type Clinicians Facility Department ID 2019-10-03 Inpatient Jonathon Phillips [facility] JUANITA [id number] Medical 09:27:00 Jonathon Phillips [facility] 2023-01-25 2023-01-25 Outpatient GC_CCW_Rami PRIV PRIV [id number] [facility] 00:00:00 00:00:00 neni_R [id number] Medica l 2022-12-28 2022-12-28 Outpatient GC_CCW_Rami PRIV PRIV [id number] [facility] 00:00:00 00:00:00 neni_R [id number] Medica l 2022-11-30 2022-11-30 Outpatient GC_CCW_Rami PRIV PRIV [id number] [facility] 00:00:00 00:00:00 neni_R [id number] Medica l 2022-07-16 2022-07-16 Outpatient DMG [facility]oted 00:00:00 00:00:00 [id number] Medica l Group 2022-07-16 2022-07-16 Outpatient DMG DM [facility] 00:00:00 00:00:00 [id number] Medica l Group 2022-07-15 2022-07-15 Outpatient DMG DMG [facility] 00:00:00 00:00:00 [id number] Medica l Group 2022 2022 Patient Dove, 1.2.840.1 [id number] Methodi 00:00:00 00:00:00 Outreach Mickie 21853.1.[address] 3.430.2.7 Hospit a .3.625294 l .8 2022 2022 Patient Dove, 1.2.840.1 [id number] Methodi 00:00:00 00:00:00 Outreach Mickie 57087.1.[address] 3.430.2.7 Hospit a .3.358553 l .8 2022-07-07 2022-07-07 Patient Dove, 1.2.840.1 [id number] 1529 Methodi 00:00:00 00:00:00 Outreach Mickie 36736.1.[address] 3.430.2.7 Hospit a .3.993286 l .8 2022-07-07 2022-07-07 Patient Dove, 1.2.840.1 [id number] Methodi 00:00:00 00:00:00 Outreach Mickie 59840.1.[address] 3.430.2.7 Hospit a .3.438574 l .8 2022-06-30 2022-06-30 Outpatient EBONY 2.16.840.1. 1 [id number] 12:37:00 12:37:00 Encounter E 781371.4.6. [facility] [id number] [facility] 2022-06-30 2022-06-30 Outpatient 3 BEST, ALTHEA HVLMo DEX 474 Genny 07:37:00 07:37:00 0419 lle [facility] l 2022-06-29 2022-06-29 Patient Dove, 1.2.840.1 [id number] Methodi 00:00:00 00:00:00 Outreach Mickie [address]994.1.[address] 3.430.2.7 Hospit a .3.268685 l .8 2022-06-29 2022-06-29 Patient Dove, 1.2.840.1 [id number] Methodi 00:00:00 00:00:00 Outreach Mickie 74478.1.[address] 3.430.2.7 Hospit a .3.437339 l .8 2022-06-23 2022-06-23 Patient Pablito, 1.2.840.1 [id number] Methodi 00:00:00 00:00:00 Outreach Nafisa [address]252.1.[address] 3.430.2.7 Hospit a .3.820626 l .8 2022-06-23 2022-06-23 Patient Pablito, 1.2.840.1 [id number] Methodi 00:00:00 00:00:00 Outreach Nafisa 30687.1.[address] 3.430.2.7 Hospit a .3.964455 l .8 2022-06-22 2022-06-22 Patient Dove, 1.2.840.1 [id number] 0599 Methodi 00:00:00 00:00:00 Outreach Mickie 20168.1.[address] 3.430.2.7 Hospit a .3.846247 l .8 2022-06-22 2022-06-22 Patient Dove, 1.2.840.1 [id number] Methodi 00:00:00 00:00:00 Outreach Mickie [address]144.1.[address] 3.430.2.7 Hospit a .3.356583 l .8 2022-06-09 2022-06-09 Patient Pablito, 1.2.840.1 [id number] 6438 Methodi 00:00:00 00:00:00 Outreach Nafisa 96667.1.[address] 3.430.2.7 Hospit a .3.050305 l .8 2022-06-09 2022-06-09 Patient Pablito, 1.2.840.1 [id number] Methodi 00:00:00 00:00:00 Outreach Nafisa 05057.1.[address] 3.430.2.7 Hospit a .3.053440 l .8 2022-06-08 2022-06-08 Outpatient GC_CCW_Rami PRIV PRIV [id number] [facility] 00:00:00 00:00:00 Carmencita [id number] Medica l 2022-06-03 2022-06-03 Outpatient GC_CCW_Rami PRIV PRIV [id number] [facility] 00:00:00 00:00:00 francia_Mala [id number] Medica l 2022-05-27 2022-05-27 Telephone Jose Farfan 1.2.840.1 [id number] Methodi 00:00:00 00:00:[address] 3.430.2.7 Hospit a .3.880160 l .8 2022-05-27 2022-05-27 Telephone Jose Farfan 1.2.840.1 [id number] Methodi 00:00:00 00:00:[address] 3.430.2.7 Hospit a .3.922416 l .8 2022-05-20 2022-05-24 [facility] Soledad Hansongh 1.2.840. 1 [id number] Methodi 09:49:00 14:24:00 Encounter Sulema Casas 28706.1.[address] Kura, Sarai Methuku 3.430.2.7 [facility] My .3.717059 Jamia Hunt .8 2022-05-20 2022-05-24 [facility] 1.2.840. 1 [id number] Methodi 09:49:00 14:24:00 Encounter Sulema Casas 89821.1.[address] Kura, Sarai Methuku 3.430.2.7 [facility] My .3.177286 Jamia Hunt .8 2022-05-22 2022-05-22 Anesthesia Hurtado, 1.2.840.1 [id number] [id number] Methodi 08:12:00 09:05:00 Event Raffaele 24192.1.[address] 3.430.2.7 Hospit a .3.598435 l .8 2022-05-22 2022-05-22 Anesthesia Hurtado, 1.2.840.1 [id number] Methodi 08:12:00 09:05:00 Event Raffaele 34472.1.[address] 3.430.2.7 Hospit a .3.061158 l .8 2022-05-22 2022-05-22 Surgery Farfan, Jose 1.2.840.1 [id number] 21 [id number] Methodi 08:00:00 08:30:[address] 3.430.2.7 Hospit a .3.292502 l .8 2022-05-22 2022-05-22 Surgery Farfan, Jose 1.2.840.1 [id number] 21 [id number] Methodi 08:00:00 08:30:[address] 3.430.2.7 Hospit a .3.545417 l .8 2022-05-18 2022-05-18 Lab Farfan, Jose 1.2.840.1 [id number] 21 [id number] Methodi 09:15:00 09:20:[address] 3.430.2.7 Hospit a .3.877755 l .8 2022-05-18 2022-05-18 Lab Farfan, Jose 1.2.840.1 [id number] 21 [id number] Methodi 09:15:00 09:20:[address] 3.430.2.7 Hospit a .3.939098 l .8 2022-05-18 2022-05-18 Office Farfan, Jose 1.2.840.1 [id number] 21 [id number] Methodi 08:00:00 08:50:33 Visit Daniel 62021.1.[address] 3.430.2.7 Hospit a .3.022730 l .8 2022-05-18 2022-05-18 Office Farfan, Jose 1.2.840.1 [id number] 21 [id number] Methodi 08:00:00 08:50:33 Visit Daniel 50343.1.[address] 3.430.2.7 Hospit a .3.091852 l .8 2022-05-18 2022-05-18 Travel 1.2.840.1 1.2.419.032 3483 [id number] Methodi 00:00:00 00:00:[address] 3.430.2.7 0.2.7.3.698 Ho spita .3.206093 084.8 l .8 2022-05-18 2022-05-18 Travel 1.2.840.1 1.2.765.097 4695 [id number] Methodi 00:00:00 00:00:[address] 3.430.2.7 0.2.7.3.698 Ho spita .3.555266 084.8 l .8 2022-05-14 2022-05-14 Telephone Gomez, 1.2.840.1 [id number] 2100 [id number] Methodi 00:00:00 00:00:[address] 3.430.2.7 Hospit a .3.689529 l .8 2022-05-14 2022-05-14 Telephone Gomez, 1.2.840.1 [id number] 2100 [id number] Methodi 00:00:00 00:00:[address] 3.430.2.7 Hospit a .3.439148 l .8 2022-05-06 2022-05-06 Telephone Gomez, 1.2.840.1 [id number] Methodi 00:00:00 00:00:[address] 3.430.2.7 Hospit a .3.499335 l .8 2022-05-06 2022-05-06 Telephone Gomez, 1.2.840.1 [id number] [id number] Methodi 00:00:00 00:00:[address] 3.430.2.7 Hospit a .3.960792 l .8 2022-05-03 2022-05-03 Office Gomez, 1.2.840.1 [id number] 901 Methodi 10:00:00 10:11:51 Visit Deborah 23054.1.[address] 3.430.2.7 Hospit a .3.014426 l .8 2022-05-03 2022-05-03 Office Gomez, 1.2.840.1 [id number] 901 Methodi 10:00:00 10:11:51 Visit Deborah [address]244.1.[address] 3.430.2.7 Hospit a .3.998656 l .8 2022-05-03 2022-05-03 Travel 1.2.840.1 1.2.667.652 0024 [id number] Methodi 00:00:00 00:00:[address] 3.430.2.7 0.2.7.3.698 Ho spita .3.372353 084.8 l .8 2022-05-03 2022-05-03 Travel 1.2.840.1 1.2.448.142 5353 750313 Methodi 00:00:00 00:00:[address] 3.430.2.7 0.2.7.3.698 Ho spita .3.506020 084.8 l .8 2022-04-21 2022-04-21 Office Gomez, 1.2.840.1 [id number] 263 Methodi 09:00:00 09:25:59 Visit Deborah 36440.1.[address] 3.430.2.7 Hospit a .3.187872 l .8 2022-04-21 2022-04-21 Office Gomez, 1.2.840.1 [id number] 263 Methodi 09:00:00 09:25:59 Visit Deborah 14673.1.[address] 3.430.2.7 Hospit a .3.648175 l .8 2022-04-20 2022-04-20 Travel 1.2.840.1 1.2.710.709 9774 [id number] Methodi 00:00:00 00:00:[address] 3.430.2.7 0.2.7.3.698 Ho spita .3.728647 084.8 l .8 2022-04-20 2022-04-20 Travel 1.2.840.1 1.2.828.507 4901 514450 Methodi 00:00:00 00:00:[address] 3.430.2.7 0.2.7.3.698 Ho spita .3.550456 084.8 l .8 2022-04-19 2022-04-19 Telephone Elian Farfanul 1.2.840.1 [id number] Methodi 00:00:00 00:00:[address] 3.430.2.7 Hospit a .3.260721 l .8 2022-04-19 2022-04-19 Telephone Naheed Jose 1.2.840.1 [id number] Methodi 00:00:00 00:00:[address] 3.430.2.7 Hospit a .3.249989 l .8 2021-10-08 2021-10-08 Refill Meliza, 1.2.840.1 [id number] 0700 Methodi 00:00:00 00:00:00 Diannastefangreer 31460.1.1 [address] 3.430.2.7 Hospit a .3.942025 l .8 2021-10-05 2021-10-05 Travel 1.2.840.1 1.2.565.503 5062 [id number] Methodi 00:00:00 00:00:[address] 3.430.2.7 0.2.7.3.698 Ho spita .3.025770 084.8 l .8 2021-10-02 2021-10-02 Sarah Hess 1.2.840.1 [id number] 545 [id number] Methodi 00:00:00 00:00:[address] 3.430.2.7 Hospit a .3.192393 l .8 2021-10-01 2021-10-01 Telemedici Gomez, 1.2.840.1 [id number] 2099 [id number] Methodi 12:40:00 12:40:00 ne Deborah 91188.1.[address] 3.430.2.7 Hospit a .3.509921 l .8 2021-09-30 2021-09-30 Travel 1.2.840.1 1.2.757.696 9788 567186 Methodi 00:00:00 00:00:[address] 3.430.2.7 0.2.7.3.698 Ho spita .3.364795 084.8 l .8 2021-09-29 2021-09-29 Telephone Violette, 1.2.840.1 [id number] 2099 [id number] Methodi 00:00:00 00:00:[address] 3.430.2.7 Hospit a .3.807773 l .8 2021-09-28 2021-09-28 Orders Gomez, 1.2.840.1 [id number] 440 Methodi 00:00:00 00:00:00 Only Deborah 60020.1.[address] 3.430.2.7 Hospit a .3.330728 l .8 2021-09-28 2021-09-28 Telephone Patricia, 1.2.840.1 [id number] Methodi 00:00:00 00:00:[address] 3.430.2.7 Hospit a .3.906830 l .8 2021-09-25 2021-09-25 Virtual Estrellita Choudhury 1.2.840.1 [id number] Methodi 16:30:00 17:02:[address] Care 3.430.2.7 Hospit a .3.983021 l .8 2021-09-25 2021-09-25 Outpatient [facility] [id number] 323 [place] 00:00:00 00:00:[address] 2021-09-25 2021-09-25 Telephone Gomez, 1.2.840.1 [id number] [id number] 56959 Methodi 00:00:00 00:00:[address] 3.430.2.7 Hospit a .3.193239 l .8 2021-09-23 2021-09-23 Hospital Gomez, 1.2.840.1 [id number] 14199 69073 Methodi 06:48:07 23:59:00 Encounter Deborah [address]90.1.[address] 3.430.2.7 Hospit a .3.818509 l .8 2021-09-22 2021-09-22 Travel 1.2.840.1 1.2.872.512 4078 507435 Methodi 00:00:00 00:00:[address] 3.430.2.7 0.2.7.3.698 Ho spita .3.555656 084.8 l .8 2021-09-11 2021-09-11 Refill Jeanette, 1.2.840.1 [id number] 2854 Methodi 00:00:00 00:00:[address] [place] 3.430.2.7 Hospit a .3.547853 l .8 2021-09-10 2021-09-10 Office Gomez, 1.2.840.1 [id number] 526 Methodi 13:00:00 13:43:26 Visit Deborah 55473.1.[address] 3.430.2.7 Hospit a .3.935397 l .8 2021-09-10 2021-09-10 Travel 1.2.840.1 1.2.229.570 2832 [id number] Methodi 00:00:00 00:00:[address] 3.430.2.7 0.2.7.3.698 Ho spita .3.380367 084.8 l .8 2021-09-08 2021-09-08 Patient Ted, 1.2.840.1 [id number] 781 [id number] [facility] 00:00:00 00:00:00 Outreach Jamia 38696.1.[address] 3.430.2.7 Hospit a .3.219681 l .8 2021-08-14 2021-08-14 Travel 1.2.840.1 1.2.253.288 3785 472341 [facility] 00:00:00 00:00:[address] 3.430.2.7 0.2.7.3.698 Ho spita .3.842011 084.8 l .8 2021-08-13 2021-08-13 Office Claudio, 1.2.840.1 [id number] 4643 [facility] 11:00:00 13:40:00 Visit Margy 59157.1.[address] Nava 3.430.2.7 Hospit a .3.213303 l .8 2021-08-13 2021-08-13 Outpatient [facility] [id number] 381 [place] 00:00:00 00:00:[address] 2021-08-11 2021-08-11 Travel 1.2.840.1 1.2.125.941 2149 142629 [facility] 00:00:00 00:00:[address] 3.430.2.7 0.2.7.3.698 Ho spita .3.212078 084.8 l .8 2021-07-30 2021-07-30 Office Gomez, 1.2.840.1 [id number] 245 [facility] 13:00:00 13:25:42 Visit Deborah 25600.1.[address] 3.430.2.7 Hospit a .3.569950 l .8 2021-07-30 2021-07-30 Travel 1.2.840.1 1.2.070.549 4798 561910 [facility] 00:00:00 00:00:[address] 3.430.2.7 0.2.7.3.698 Ho spita .3.590463 084.8 l .8 2021-07-28 2021-07-28 Documentat Haider, 1.2.840.1 [id number] 095 [id number] [facility] 00:00:00 00:00:00 ion Violet 36820.1.[address] [place] 3.430.2.7 Hos irena .3.339229 l .8 2021-07-27 2021-07-27 Travel 1.2.840.1 1.2.676.132 1504 750595 [facility] 00:00:00 00:00:[address] 3.430.2.7 0.2.7.3.698 Ho spita .3.683737 084.8 l .8 2021-02-19 2021-02-19 Outpatient BURNETTE, [facility] [id number] 750 [place] 00:00:00 00:00:00 BUTCH [address] 2021-02-19 2021-02-19 Outpatient [facility] [id number] [place] 00:00:00 00:00:[address] 2021-01-26 2021-01-26 Outpatient BURNETTE, [facility] [id number] 543 [place] 00:00:00 00:00:00 BUTCH [address] 2021-01-05 2021-01-05 Outpatient GOMEZ, [facility] [id number] 375 [place] 00:00:00 00:00:00 DEBORAH [address] 2021-01-05 2021-01-05 Outpatient [facility] [id number] 459 [place] 00:00:00 00:00:[address] 2020-12-16 2020-12-16 Outpatient GOMEZ, [facility] [id number] 592 [place] 00:00:00 00:00:00 DEBORAH [address] 2020-12-16 2020-12-16 Outpatient [facility] [id number] 993 [place] 00:00:00 00:00:[address] 2020-10-22 2020-10-22 Outpatient [facility] [id number] 209 [place] 00:00:00 00:00:[address] 2020-10-22 2020-10-22 Outpatient CHERIE, DIANA [facility] [id number] [place] 00:00:00 00:00:[address] 2020-10-22 2020-10-22 Outpatient MARIELOS RIVERO [facility] [id number] [place] 00:00:00 00:00:[address] 2020-10-16 2020-10-16 [facility] [id number] [facility] 00:00:00 00:00:00 CORONA [facility] 2020-10-09 2020-10-09 Outpatient JEANETTE, [facility] [id number] 286 [place] 00:00:00 00:00:00 MOHAMMED [address] 2020-09-24 2020-09-24 Outpatient GOMEZ, [facility] [id number] 851 [place] 00:00:00 00:00:00 DEBORAH [address] 2020-08-14 2020-08-14 Outpatient [facility] [id number] 791 [place] 00:00:00 00:00:[address] 2020-07-18 2020-07-18 Outpatient JUANITA CRESPOA [facility] [id number] [place] 00:00:00 00:00:[address] 2020-07-08 2020-07-08 Outpatient RAMINENI, [facility] [id number] [place] 00:00:00 00:00:00 VENICE [address] 2020-07-07 2020-07-07 Emergency [facility] 064 [id number] 84 [place] 00:00:00 00:00:[address] 2020-07-04 2020-07-04 Outpatient RAMINENI, [facility] [id number] [place] 00:00:00 00:00:00 VENICE [address] 2020-07-02 2020-07-02 Outpatient JEANETTE, [facility] [id number] 860 [place] 00:00:00 00:00:00 MOHAMMED [address] 2020-06-04 2020-06-04 Outpatient JEANETTE, [facility] [id number] 119 [place] 00:00:00 00:00:00 MOHAMMED [address] 2020-04-24 2020-04-24 Outpatient DIANA CRESPO [facility] [id number] [place] 00:00:00 00:00:00 8[address] [facility] 2020-04-10 2020-04-12 Inpatient VIVIANA [facility] [id number] [place] 00:00:00 00:00:00 [place] [address] 2019-10-29 2019-10-29 Outpatient EL NANCY PHILLIPS AE [id number] [facility] 09:43:00 09:43:[address] 2019-10-07 2019-10-07 Emergency [facility]DER [id number] Medical 12:55:00 12:55:00 [facility] 2019-10-07 2019-10-07 Emergency 1 LafleurAbimael [facility]DER [id number] Medical 12:55:00 12:55:00 Abimael Lafleur -[id number] [facility] 2019-10-04 2019-10-04 Outpatient 3 Jacqueline Jonathon [facility] JUANITA [id number] Medical 06:02:00 06:02:00 LaMpetros Jonathon -20 [id number] [facility] 2019-09-18 2019-09-18 Outpatient EL NANCY PHILLIPS AE [id number] [facility] 15:35:00 15:35:[address] 2019-09-13 2019-09-13 Emergency [facility]DER [id number] Medical 12:30:00 12:30:00 [facility] 2016-08-15 2016-08-15 Inpatient E [facility] MED [id number] Medical 19:45:00 15:34:00 [facility] 2016-05-03 2016-05-03 Emergency E [facility] [id number] Medical 12:46:00 12:46:00 [facility] 2016-04-23 2016-04-23 Emergency E [facility] [id number] Medical 09:15:00 09:15:00 [facility] Results Test Description Test Time Test Comments Results Result Comments Source Surgical pathology request 2022-05-25 16:44:20 Test Item Value Reference Range Interpretation Comme nts Case number (test code = 1351744) [id number] Surgical pathology report (test code = See link below for PDF Lab R eport 2255) Result status (test code = 9184588) This is Final Report for [id number] [facility] pathology [id number] 16:44:20 Test Item Value Reference Range Interpretation Comments Case number (test code = [id number]) Surgical pathology See link below for report (test code = PDF Lab Report 2255) Result status (test code This is Final Report = [id number]) for [id number] [facility] pathology [id number] 16:44:20 Test Item Value Reference Range Interpretation Comments Case number (test code = [id number]) Surgical pathology See link below for report (test code = PDF Lab Report 2255) Result status (test code This is Final Report = [id number]) for [id number] [facility] pathology [id number] 16:44:20 Test Item Value Reference Range Interpretation Comments Case number (test code = [id number]) Surgical pathology See link below for report (test code = PDF Lab Report 2255) Result status (test code This is Final Report = [id number]) for [id number] [facility] pathology [id number] 16:44:20 Test Item Value Reference Range Interpretation Comments Case number (test code = [id number]) Surgical pathology See link below for report (test code = PDF Lab Report 2255) Result status (test code This is Final Report = [id number]) for [id number] [facility] [id number] 13:34:00 Test Item Value Reference Range Interpretation Comments POC glucose (test code 192 mg/dL 65-99 H Opera tor Name: = 97512-0) Michelle Patton Device ID: [id number] Lab Interpretation Abnormal (test code = 59965-1) [facility] [id number] 13:34:00 Test Item Value Reference Range Interpretation Comments POC glucose (test code 192 mg/dL 65-99 H Opera tor Name: = 39857-6) Michelle Patton Device ID: [id number] Lab Interpretation Abnormal (test code = 73515-2) [facility] [id number] 13:34:00 Test Item Value Reference Range Interpretation Comments POC glucose (test code 192 mg/dL 65-99 H Opera tor Name: = 86451-2) Michelle Patton Device ID: [id number] Lab Interpretation Abnormal (test code = 08351-9) [facility] [id number] 13:34:00 Test Item Value Reference Range Interpretation Comments POC glucose (test code 192 mg/dL 65-99 H Opera tor Name: = 13562-9) Michelle Patton Device ID: [id number] Lab Interpretation Abnormal (test code = 48743-1) [facility] [id number] 13:34:00 Test Item Value Reference Range Interpretation Comments POC glucose (test code 192 mg/dL 65-99 H Opera tor Name: = 82621-5) Michelle Patton Device ID: [id number] Lab Interpretation Abnormal (test code = 23487-3) [facility] [id number] 05:41:52EXAMINATION: US HEPATIC CLINICAL HISTORY: eval for potential liver cirrhosis COMPARISON: None. IMPRESSION: 1.Liver is heterogeneous in echotexture without irregular margins to suggest cirrhosis. If there is further clinical concern correlation with ultrasound elastography or MRI elastography can be performed. No suspicious hepatic masses. 2.Cholecystectomy. Common bile duct is 9 mm in diameter. 3.Main portal vein is patent with flow directed towards the liver. Portal vein diameter is 12 mm. 4.No perihepatic ascites. [id number], (w Contrast, Strain and 3D if needed)2022-05-21 18:57:50 Test Item Value Reference Range Interpretation Comments Ao Root Diameter 2.47 cm (test code = 0723303580) AoV Area, Vmax 2.17 cm2 >=1.5 [Automated (test code = message] The 4367446576) system which generated this result transmitted reference range : >=1.5. The reference range was not used to interpret this result as normal/abnormal . AoV Area, VTI 2.37 cm2 (test code = 8920311694) AoV Mean PG (test 3.69 mmHg code = 1522244396) AoV Peak PG (test 7.79 mmHg code = 9302177522) AoV Vmax (test 1.40 m/s code = 8615256792) AoV VTI (test code 0.31 m = 5967891335) BSA Cox (test 1.68 m2 code = 5507411173) BSA (test code = 1.64 m2 6737225069) IVS,d (test code = 0.90 cm 0.6-0.9 3904723167) IVS/LVPW,2D (test 1.05 code = 9586440493) Left Atrium 5.09 cm Dimension Anterior (test code = 8849269712) LV,d (test code = 4.93 cm 8041098914) LV EF,2D (test 68.15 % code = 2441497311) LV EF,A2C (test 64.40 % code = 6316910330) LV EF,A4C (test 67.19 % code = 1998969964) LV EF,BP (test 66.16 % code = 8523677854) Rakesh [place],d A2C 7.43 cm (test code = 3242760410) Rakesh [place],d A4C 7.77 cm (test code = 5194020351) Rakesh [place],s A2C 6.18 cm (test code = 8194966220) Rakesh [place],s A4C 6.37 cm (test code = 2675266728) LV,s (test code = 3.37 cm 4629739331) LV SV,A2C (test 47.58 % code = 9424725045) LV SV,A4C (test 61.18 % code = 0211132496) LV SV,BP (test 55.46 % code = 6308609390) LV Vol,d A2C (test 73.88 mL code = 0256699325) LV Vol,d A4C (test 91.06 ml code = 7098275008) LV Vol,d BP (test 83.82 ml code = 4725555070) LV Vol,s A2C (test 26.30 mL code = 9392999316) LV Vol,s A4C (test 29.88 ml code = 8649126468) LV Vol,s BP (test 28.36 nl code = 5514471151) LVOT area (test 2.98 cm2 code = 2679569643) LVOT Diam,S (test 1.95 cm code = 8264643576) LVOT Vmax (test 1.02 m/s code = 5241528541) LVOT VTI (test 0.25 m code = 4189132787) LVPWD,d (test code 0.85 cm 0.60-1.19 = 5973365343) TR Vpeak (test 2.87 m/s code = 6257325545) MV E A ratio (test 2.90 code = 8142093731) TR pk grad (test 33.4 mmHg code = 1611720568) AoV area i VTI BSA 1.45 cm2/m2 >=0.85 [Automat ed Radha (test code message] T he = 3371685145) system which generated this result transmitted reference range : >=0.85. The reference range was not used to interpret this result as normal/abnormal . LV SI MOD BP BSA 33.79 ml/m2 Pace (test code = 3720161447) LV Vol Index s 51.07 ml/m2 bpmod BSA Pace (test code = 4709174560) PV Vmn (test code 17.28 m/s = 9511446143) BMI (test code = 24.09 kg/m2 2779958429) E wave decelartion 245.16 See_Comment [Automat ed time (test code = message] T he 2874524033) system which generated this result transmitted reference range : 200 msec. The reference range was not used to interpret this result as normal/abnormal . MV Peak A Guillermo 0.45 m/s (test code = 0631902846) MV valve area p 3.09 cm2 1/2 method (test code = 6301018516) MV Peak E Guillermo 1.29 m/s (test code = 0118329588) MV stenosis 71.10 ms pressure 1/2 time (test code = 7468606071) LVOT stroke volume 0.75 cm3 (test code = 5126997260) AV LVOT peak 4.17 mmHg gradient (test code = 2394952764) Ao Root Diameter 2.47 cm (test code = 5150557594) MV mean gradient 2.73 mmHg (test code = 9482985284) LV SYS VOL (test 46.28 ml 14-42 code = 7661590276) LV GRESHAM VOL (test 114.31 ml 46-106 code = 0464944500) LA area s A4C 29.13 cm2 (test code = 8792275132) LV SI Teich 2D 41.45 ml/m2 (test code = 6097068435) LV SV Teich 2D 68.03 ml (test code = 8682820674) LV Vol s Teich 46.28 ml PSAX (test code = 1792265283) LVOT SI (test code 45.10 ml/m2 = 5791187152) MR peak grad (test 8.42 mmHg code = 2736506904) MV Vmax (test code 1.45 m = 8517710906) MV VTI Tips (test 0.38 m code = 4666967736) BSA Haycock (test 1.67 m2 code = 2938933312) AoV Vmn (test code 0.88 m/s = 0342758008) IVS s 2D (test 1.44 cm code = 4874038631) LV FS Teich 2D 31.71 (test code = 4889658467) MV AE ratio (test 0.35 code = 3862126316) LV FS Cube 2D 31.71 (test code = 4485520471) LVOT Vmn (test 0.76 code = 3967643300) Pt Size (test code 160.02 = 5547094797) Pt Wt (test code = 61.69 9430928857) Aov area Vmn (test 2.56 cm2 code = 4849123436) LA A_P score P 4.87 (test code = 6569553769) LVOT mean grad 2.52 mmHg (test code = 2751783914) 85 of MPHR (test 129.33 code = 1678650124) AoV area I VMN bsa 1.56 cm2/m2 (test code = 9281039243) Calc MPHR (test 152.15 bpm code = 9064485238) IVS pct thck PLAX 60.66 % (test code = 1516859750) LV SI Cube 2D 49.68 ml/m2 (test code = 3410865851) LV SV Cube 2D 81.55 ml (test code = 7702963522) LV vol d cube 2D 119.66 ml (test code = 9082895664) LV vol s cube 2D 38.11 ml (test code = 6654653035) LVPW pct thck PLAX 60.93 % (test code = 0125976327) LVPW s PLAX (test 1.37 cm code = 3427132643) MV Decel slope 5.27 m/s2 (test code = 0072741032) Pred Exer Dur R1 7.06 (test code = 2346049155) Pred METS R1 (test 5.88 code = 1599749718) LA Vol MOD A4C 106.72 ml (test code = 6296470555) Velocity Ratio 0.73 m/s (V1/V2) (test code = 4689) EF (test code = 60 % 7492304336) E/A ratio (test 2.87 code = 8799504124) LV Systolic Volume 16.04 mL/m2 Index (test code = 0440048849) LV Diastolic 45.05 mL/m2 Volume Index (test code = 9552576225) LVOT VTI (CM) 25.00 cm (test code = 5945192332) RVSP (test code = 38.40 See_Comment [Automate d 9329013654) message] The system which generated this result transmitted reference range : 40.00 mmHg. The reference range was not used to interpret this result as normal/abnormal . RA pressure (test 5.0 mmHg code = 4229472450) BINDU (test code = BINDU) Left Ventricle: [...] Technical difficulties due to patient's body habitus. [facility], (w Contrast, Strain and 3D if needed)2022-05-21 18:57:50 Test Item Value Reference Range Interpretation Comments Ao Root Diameter 2.47 cm (test code = 0274627758) AoV Area, Vmax 2.17 cm2 >=1.5 (test code = 2629636689) AoV Area, VTI 2.37 cm2 (test code = 9819991529) AoV Mean PG (test 3.69 mmHg code = 5440043778) AoV Peak PG (test 7.79 mmHg code = 7767454053) AoV Vmax (test 1.40 m/s code = 5604045642) AoV VTI (test code 0.31 m = 5931037260) BSA Cox (test 1.68 m2 code = 2287429960) BSA (test code = 1.64 m2 8722292233) IVS,d (test code = 0.90 cm 0.6-0.9 2299338044) IVS/LVPW,2D (test 1.05 code = 9941898851) Left Atrium 5.09 cm Dimension Anterior (test code = 0765332670) LV,d (test code = 4.93 cm 6833304698) LV EF,2D (test 68.15 % code = 7749087846) LV EF,A2C (test 64.40 % code = 5663224638) LV EF,A4C (test 67.19 % code = 6826999710) LV EF,BP (test 66.16 % code = 2022848651) Rakesh [place],d A2C 7.43 cm (test code = 7618055154) Rakesh [place],d A4C 7.77 cm (test code = 0799341217) Rakesh [place],s A2C 6.18 cm (test code = 8887504799) Rakesh [place],s A4C 6.37 cm (test code = 4650183813) LV,s (test code = 3.37 cm 7652578722) LV SV,A2C (test 47.58 % code = 1061696599) LV SV,A4C (test 61.18 % code = 4149139871) LV SV,BP (test 55.46 % code = 5027211506) LV Vol,d A2C (test 73.88 mL code = 7296263787) LV Vol,d A4C (test 91.06 ml code = 6256386580) LV Vol,d BP (test 83.82 ml code = 9496547742) LV Vol,s A2C (test 26.30 mL code = 6762816441) LV Vol,s A4C (test 29.88 ml code = 4489868821) LV Vol,s BP (test 28.36 nl code = 8103695261) LVOT area (test 2.98 cm2 code = 9725443059) LVOT Diam,S (test 1.95 cm code = 2858669222) LVOT Vmax (test 1.02 m/s code = 6627594493) LVOT VTI (test 0.25 m code = 2112073920) LVPWD,d (test code 0.85 cm 0.60-1.19 = 6156003194) TR Vpeak (test 2.87 m/s code = 6538163511) MV E A ratio (test 2.90 code = 6257407120) TR pk grad (test 33.4 mmHg code = 3130163021) AoV area i VTI BSA 1.45 cm2/m2 >=0.85 Radha (test code = 4723137377) LV SI MOD BP BSA 33.79 ml/m2 Pace (test code = 6678707308) LV Vol Index s 51.07 ml/m2 bpmod BSA Pace (test code = 6930905720) PV Vmn (test code 17.28 m/s = 0740106170) BMI (test code = 24.09 kg/m2 9686932235) E wave decelartion 245.16 See_Comment [Automat ed time (test code = message] T he 7119719172) system which generated this result transmitted reference range : 200 msec. The reference range was not used to interpret this result as normal/abnormal . MV Peak A Guillermo 0.45 m/s (test code = 0969222349) MV valve area p 3.09 cm2 1/2 method (test code = 0034927581) MV Peak E Guillermo 1.29 m/s (test code = 8670590749) MV stenosis 71.10 ms pressure 1/2 time (test code = 6053713247) LVOT stroke volume 0.75 cm3 (test code = 4873577046) AV LVOT peak 4.17 mmHg gradient (test code = 3447021961) Ao Root Diameter 2.47 cm (test code = 9389111850) MV mean gradient 2.73 mmHg (test code = 5163914964) LV SYS VOL (test 46.28 ml 14-42 code = 5058768556) LV GRESHAM VOL (test 114.31 ml 46-106 code = 6858770570) LA area s A4C 29.13 cm2 (test code = 3325574378) LV SI Teich 2D 41.45 ml/m2 (test code = 3471717630) LV SV Teich 2D 68.03 ml (test code = 5476067230) LV Vol s Teich 46.28 ml PSAX (test code = 2490512408) LVOT SI (test code 45.10 ml/m2 = 6394578225) MR peak grad (test 8.42 mmHg code = 4947669108) MV Vmax (test code 1.45 m = 0295984528) MV VTI Tips (test 0.38 m code = 3254912967) BSA Haycock (test 1.67 m2 code = 0872154198) AoV Vmn (test code 0.88 m/s = 1725520124) IVS s 2D (test 1.44 cm code = 1558815657) LV FS Teich 2D 31.71 (test code = 9797809819) MV AE ratio (test 0.35 code = 0345344699) LV FS Cube 2D 31.71 (test code = 4653513110) LVOT Vmn (test 0.76 code = 4709977898) Pt Size (test code 160.02 = 1405533860) Pt Wt (test code = 61.69 5104885018) Aov area Vmn (test 2.56 cm2 code = 6922380934) LA A_P score P 4.87 (test code = 4572298558) LVOT mean grad 2.52 mmHg (test code = 9835970841) 85 of MPHR (test 129.33 code = 7465179528) AoV area I VMN bsa 1.56 cm2/m2 (test code = 4200114755) Calc MPHR (test 152.15 bpm code = 8779286689) IVS pct thck PLAX 60.66 % (test code = 1938894316) LV SI Cube 2D 49.68 ml/m2 (test code = 5570271108) LV SV Cube 2D 81.55 ml (test code = 1192310115) LV vol d cube 2D 119.66 ml (test code = 1400476603) LV vol s cube 2D 38.11 ml (test code = 4309514314) LVPW pct thck PLAX 60.93 % (test code = 6855064613) LVPW s PLAX (test 1.37 cm code = 1228664619) MV Decel slope 5.27 m/s2 (test code = 2677915883) Pred Exer Dur R1 7.06 (test code = 0567618716) Pred METS R1 (test 5.88 code = 6639798652) LA Vol MOD A4C 106.72 ml (test code = 8314314443) Velocity Ratio 0.73 m/s (V1/V2) (test code = 4689) EF (test code = 60 % 5093039057) E/A ratio (test 2.87 code = 7532799923) LV Systolic Volume 16.04 mL/m2 Index (test code = 3995973824) LV Diastolic 45.05 mL/m2 Volume Index (test code = 1609876265) LVOT VTI (CM) 25.00 cm (test code = 4811244202) RVSP (test code = 38.40 See_Comment [Automate d 0809435898) message] The system which generated this result transmitted reference range : 40.00 mmHg. The reference range was not used to interpret this result as normal/abnormal . RA pressure (test 5.0 mmHg code = 7731068559) BINDU (test code = BINDU) Left Ventricle: [...] Technical difficulties due to patient's body habitus. [facility] 12 [id number] 04:29:44 Test Item Value Reference Range Interpretation Comments Ventricular rate (test 56 code = 253) Atrial rate (test code 56 = 255) KS interval (test code 120 = 266) QRSD [...] of 08-JUL-2020 11:10,-No significant change was found- [address]2023-03-10 04:29:44 Test Item Value Reference Range Interpretation Comments Ventricular rate (test 56 code = 253) Atrial rate (test code 56 = 255) KS interval (test code 120 = 266) QRSD [...] of 08-JUL-2020 11:10,-No significant change was found- [address]2023-03-10 04:29:44 Test Item Value Reference Range Interpretation Comments Ventricular rate (test 56 code = 253) Atrial rate (test code 56 = 255) KS interval (test code 120 = 266) QRSD [...] of 08-JUL-2020 11:10,-No significant change was found- [address]2023-03-10 04:29:44 Test Item Value Reference Range Interpretation Comments Ventricular rate (test 56 code = 253) Atrial rate (test code 56 = 255) KS interval (test code 120 = 266) QRSD [...] of 08-JUL-2020 11:10,-No significant change was found- [facility] [id number] 04:29:44 Test Item Value Reference Range Interpretation Comments Ventricular rate (test 56 code = 253) Atrial rate (test code 56 = 255) KS interval (test code 120 = 266) QRSD [...] of 08-JUL-2020 11:10,-[facility] [id number] 21:17:00 Test Item Value Reference Range Interpretation Comments Product name (test code Red Cells AS1 Leukored = 25) Irrad Unit number (test code [id number] = 2734785) Product code (test code O7987O29 = 3092) Dispense status (test Transfused code = 24) Blood expiration date (test code = 302) Blood type code (test 5100 code = 308) Blood type (test code = O POSITIVE 1314) Compatibility (test Compatible code = 6400) BINDU (test code = BINDU) [facility] [id number] 21:17:00 Test Item Value Reference Range Interpretation Comments Product name (test code Red Cells AS1 Leukored = 25) Irrad Unit number (test code [id number] = 1829143) Product code (test code W2642I89 = 3092) Dispense status (test Transfused code = 24) Blood expiration date (test code = 302) Blood type code (test 5100 code = 308) Blood type (test code = O POSITIVE 1314) Compatibility (test Compatible code = 6400) BINDU (test code = BINDU) LAB: [facility] 2 [id number] 21:17:00 Test Item Value Reference Range Interpretation Comments Product name (test code Red Cells AS1 Leukored = 25) Irrad Unit number (test code [id number] = 5482270) Product code (test code V5148R30 = 3092) Dispense status (test Transfused code = 24) Blood expiration date (test code = 302) Blood type code (test 5100 code = 308) Blood type (test code = O POSITIVE 1314) Compatibility (test Compatible code = 6400) BINDU (test code = BINDU) LAB: [facility] [id number] 21:17:00 Test Item Value Reference Range Interpretation Comments Product name (test code Red Cells AS1 Leukored = 25) Irrad Unit number (test code [id number] = 1720258) Product code (test code J7012H61 = 3092) Dispense status (test Transfused code = 24) Blood expiration date (test code = 302) Blood type code (test 5100 code = 308) Blood type (test code = O POSITIVE 1314) Compatibility (test Compatible code = 6400) BINDU (test code = BINDU) LAB: +[facility]IFIED. [facility], 2 [id number] 21:17:00 Test Item Value Reference Range Interpretation Comments Product name (test code Red Cells AS1 Leukored = 25) Irrad Unit number (test code [id number] = 1553995) Product code (test code Y2882B07 = 3092) Dispense status (test Transfused code = 24) Blood expiration date (test code = 302) Blood type code (test 5100 code = 308) Blood type (test code = O POSITIVE 1314) Compatibility (test Compatible code = 6400) BINDU (test code = BINDU) LAB: +[facility]. [facility] Jssjmwhg2515-39-23 19:59:35EXAM: CT ABDOMEN PELVIS W CONTRAST INDICATION: Abdominal pain acute nonlocalized COMPARISON: None. TECHNIQUE: After administration of iodinated contrast intravenously, axial CT images of the abdomen and pelvis were obtained. Coronal and sagittal reformations were obtained. Iterative reconstruction and/or automated exposure control techniques were employed to reduce radiation dose. 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 Limited Chest:Mediastinum:Small hiatal hernia. Moderate concentric thickening lower esophageal wall which is a nonspecific finding may be suggestive of esophagitis. If indicated, this could be further evaluated with upper endoscopy. Heart size is normal. Moderate calcified plaque right and posterior descending coronary arteries. Visual is pericardium is normal. No adenopathy visualized. Breasts: Bilateral silicone breast implants. Dense capsular calcifications. Possible contained rupture of the left implant. If indicated, this could be further evaluated dedicated breast imaging. Lungs: Mild multifocal linear opacities scattered throughout the bilateral lower lungs, right greater than left, discoid atelectasis versus scar. Small fat-containing left Bochdalek hernia. No nodule, consolidation, pleural effusion, pneumothorax. Abdomen: Liver: Subtly lobulated liver contour may be suggestive of fibrosis/cirrhosis. Consider further evaluation with ultrasound versus MRI elastography. Gallbladder: Status post cholecystectomy. Biliary system: Mild central intrahepatic biliary dilatation. Common bile duct is dilated measuring 1.2cm maximal coronal diameter. However, it smoothly tapers to a normal caliber by the level the pancreatic head without CT evidence of intrinsic filling defect or extrinsic mass effect. Findings are mostlikely secondary to reservoir effect status post cholecystectomy. Nevertheless, clinical concern forbiliary obstruction exists, recommend further evaluation with MRCP. Pancreas: Normal. Spleen: Normal. Adrenals: Normal Kidneys: Subcentimeter hypodensities bilateral kidneys which are too small to definitively characterize but statistically likely pseudocyst. Otherwise normal. 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 Small hiatal hernia. Excluded stomach is mostly decompressed. Duodenum is normal. With the exception of the enteroenteric anastomosis, small bowel is normal. Dense calcifications along the posterior inferior cecum, possibly multiple phleboliths within a collapsed appendix versus sequela prior appendectomy. Any case, no evidence of acute appendicitis. Colon is normal. Peritoneum/Omentum: No ascites. No mass. Pelvis:Bladder: Moderately distended with urine. Bladder wall is normal.Reproductive: Status post hysterectomy. Bilateral adnexa are unremarkable. Rectum: Normal. Inguinal c anals/Ischiorectal fossa: Moderately sized fat-containing right indirect inguinal hernia. Left inguinal canal is normal. Bilateral ischial rectal fossa are normal. Vascular:Arteries: Moderate tortuosity descending thoracic aorta. Mild multifocal mixed plaque scattered throughout the abdominal aorta. Moderate multifocal calcified plaque scattered throughout the ostia of the visceral arteries with moderate multifocal luminal narrowing. Of note, marked calcified plaque within the origin of the left renal artery with marked associated luminal narrowing. However, no evidence of asymmetric left renal enhancement or atrophy to suggest hemodynamically significant stenosis. Moderate calcified plaque withinthe proximal mid left common iliac artery with mild associated luminal narrowing. Mild calcified plaque scattered throughout the right common iliac artery and the bilateral external iliac arteries. Mild mixed plaque within the bilateral common femoral arteries and proximal superficial femoral arterieswith mild associated luminal narrowing. Veins: Full evaluation of systemic and portal venous structures limited by contrast bolus timing. Renal veins and hepatic veins are normal. Splenic vein, superior mesenteric vein, portal vein, and intrahepatic portal venous branches are normal. Lymphatics: No abdominal, pelvic, or inguinal adenopathy. Musculoskeletal: Linear soft tissue see scar is throughout the anterior abdominal wall. Atrophy and fatty replacement bilateral rectus abdominis muscles. Calcified granulomas within the subcutaneous changes fat of the left ischial rectal fossa and overlying the lateral aspect of the right gluteal musculature. Compression deformity T12 superior endplate with appr oximately 50% vertebral body height loss. 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 5 nonrib-bearing vertebral bodies. The fifth nonrib-bearing vertebral body has a sacral morphologybilaterally. However, it will be referred to as L5. Chronic appearing compression deformity T11 inferior endplate with approximately 25% vertebral body height loss. Chronic appearing compression deformity L1 superior endplate with approximately 25% vertebral body height loss. Small retropulsed fragment posterior superior endplates at T12 and L1 minimal associated narrowing of spinal canal narrowing. Mild degenerative changes of the thoracolumbar spine. 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 Mild arthrosis bilateral sacroiliac joints. Chondrocalcinosis pubic symphysis likely age-related. Mild arthrosis bilateral hips. Degenerative cyst anterosuperior right acetabulum. Chronic fracture right greater trochanter with distraction and nonunion. Osteopenia. No suspicious osseous or soft tissue structures. IMPRESSION:1.No CT evidence of acute abdominopelvic abnormality.2.Subtle lobulated liver contour may be suggestive of fibrosis/cirrhosis. Consider further evaluation with ultrasound versus MRI elastography.3.Bilateral silicone breast implants. Dense capsular calcifications. Possible contained rupture of the left implant. 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 [id number] [facility] duplex venous lower [id number] 18:54:53 EXAMINATION: US DUPLEX VENOUS LOWER EXTREMITY BILATERAL CLINICAL HISTORY: swelling COMPARISON: None.TECHNIQUE: Grayscale, color Doppler, and spectral waveform analysis of the bilateral lower extremitydeep venous systems was performed. The bilateral common femoral, superficial femoral, proximal deep f emoral, greater saphenous, and popliteal veins were evaluated. The calf vessels were also evaluated.FINDINGS:The bilateral common femoral, superficial femoral, and popliteal veins are compressible. They demonstrate normal venous waveforms and response to augmentation. There is flow in the visualized calf veins. There is no evidence of a popliteal or Canales's cyst. IMPRESSION: No evidence of DVT within the bilateral lower extremity named vessels as described above. [id number] ED Preliminary Interpretation - Not an Order 2022-05-20 17:10:18 Test Item Value Reference Range Interpretation Comments BINDU (test code = BINDU) Soledad Arnold MD 05/21/2022 2:47 [facility] ED Preliminary Interpretation - Not an OrderPerformed by: Soledad Arnold MDAuthorized by: Soledad Arnold MD ECG reviewed by ED Physician in the absence of a web press operator assistant: yes Previous ECG: Previous ECG: UnavailableInterpretat ion: Interpretation: abnormal Rate: ECG rate: 56 ECG rate assessment: bradycardic Rhythm: Rhythm: sinus bradycardia Ectopy: Ectopy: none QRS: QRS axis: NormalConduction: Conduction: normal ST segments: ST segments: NormalT waves: T waves: normal Lab Interpretation Abnormal (test code = 08337-6) [facility] ED Preliminary Interpretation - Not an [id number] 17:10:18 Test Item Value Reference Range Interpretation Comments BINDU (test code = BINDU) Soledad Arnold MD 05/21/2022 2:47 [facility] ED Preliminary Interpretation - Not an OrderPerformed by: Soledad Arnold MDAuthorized by: Soledad Arnold MD ECG reviewed by ED Physician in the absence of a web press operator assistant: yes Previous ECG: Previous ECG: UnavailableInterpretat ion: Interpretation: abnormal Rate: ECG rate: 56 ECG rate assessment: bradycardic Rhythm: Rhythm: sinus bradycardia Ectopy: Ectopy: none QRS: QRS axis: NormalConduction: Conduction: normal ST segments: ST segments: NormalT waves: T waves: normal Lab Interpretation Abnormal (test code = 03469-7) [facility] ED Preliminary Interpretation - Not an [id number] 17:10:18 Test Item Value Reference Range Interpretation Comments BINDU (test code = BINDU) Soledad Arnold MD 05/21/2022 2:47 [facility] ED Preliminary Interpretation - Not an OrderPerformed by: Soledad Arnold MDAuthorized by: Soledad Arnold MD ECG reviewed by ED Physician in the absence of a web press operator assistant: yes Previous ECG: Previous ECG: UnavailableInterpretat ion: Interpretation: abnormal Rate: ECG rate: 56 ECG rate assessment: bradycardic Rhythm: Rhythm: sinus bradycardia Ectopy: Ectopy: none QRS: QRS axis: NormalConduction: Conduction: normal ST segments: ST segments: NormalT waves: T waves: normal Lab Interpretation Abnormal (test code = 86144-6) [facility] ED Preliminary Interpretation - Not an [id number] 17:10:18 Test Item Value Reference Range Interpretation Comments BINDU (test code = BINDU) Soledad Arnold MD 05/21/2022 2:47 [facility] ED Preliminary Interpretation - Not an OrderPerformed by: Soledad Arnold MDAuthorized by: Soledad Arnold MD ECG reviewed by ED Physician in the absence of a web press operator assistant: yes Previous ECG: Previous ECG: UnavailableInterpretat ion: Interpretation: abnormal Rate: ECG rate: 56 ECG rate assessment: bradycardic Rhythm: Rhythm: sinus bradycardia Ectopy: Ectopy: none QRS: QRS axis: NormalConduction: Conduction: normal ST segments: ST segments: NormalT waves: T waves: normal Lab Interpretation Abnormal (test code = 66437-9) [facility] ED Preliminary Interpretation - Not an [id number] 17:10:18 Test Item Value Reference Range Interpretation Comments BINDU (test code = BINDU) Soledad Arnold MD 05/21/2022 2:47 [facility] ED Preliminary Interpretation - Not an OrderPerformed by: Soledad Arnold MDAuthorized by: Soledad Arnold MD ECG reviewed by ED Physician in the absence of a web press operator assistant: yes Previous ECG: Previous ECG: UnavailableInterpretat ion: Interpretation: abnormal Rate: ECG rate: 56 ECG rate assessment: bradycardic Rhythm: Rhythm: sinus bradycardia Ectopy: Ectopy: none QRS: QRS axis: NormalConduction: Conduction: normal ST segments: ST segments: NormalT waves: T waves: normal Lab Interpretation Abnormal (test code = 18623-7) [facility]2023-03-09 17:10:18Soledad Arnold MD 05/21/2022 2:47 PMCritical CarePerformed by: Soledad Arnold MD Authorized by: Soledad Arnold MD Critical care provider statement: Critical care time (minutes): 35 Critical care time was exclusive of: Separately billable procedures and treating other patients and teaching time Critical care was necessary to treat or prevent imminent or life-threateningdeterioration of the following conditions: Circulatory failure Critical care was time spent personally by me on the following activities: Blood draw for specimens, development of treatment plan with patient or surrogate, discussions with consultants, evaluation of patient's response to treatment, examination of patient, obtaining history from patient or surrogate, ordering and performing treatments and interventions, ordering and review of laboratory studies, ordering and review of radiographic studies, pulse oximetry, re-evaluation of patient's condition and review of old chartsPOC urinalysis [id number] 15:20:26 Test Item Value Reference Range Interpretation Comments Color urine, POC (test [place] code = 8561002) Clarity urine, POC (test Cloudy code = 6335902) Glucose urine, POC (test Negative Negative code = 1688011) Bilirubin urine, POC Negative Negative (test code = 0710332) Ketones urine, POC (test Negative Negative code = 6660110) Specific gravity urine, 1.010 1.005-1.030 POC (test code = 7066020) Blood urine, POC (test Trace Negative A code = 3718408) pH urine, POC (test code 6.5 See_Comment [A utomated message] = 3862663) The system [employer] generated this result transmitted ref erence range: 5.0, 5.5 , 6.0, 6.5, 7.0, 7.5, 8.0, 8.5. The refere nce range was not u sed to interpret this result as normal/abnor mal. Protein urine, POC (test Negative Negative code = 2527651) Urobilinogen urine, POC <2.0 <=2.0 (test code = 5298590) Nitrite urine, POC (test Positive Negative A code = 7709783) Leukocyte esterase Large Negative A urine, POC (test code = 7436226) Lab Interpretation (test Abnormal code = 56905-1) [facility] urinalysis [id number] 15:20:26 Test Item Value Reference Range Interpretation Comments Color urine, POC (test [place] code = 2973249) Clarity urine, POC (test Cloudy code = 4550208) Glucose urine, POC (test Negative Negative code = 2224933) Bilirubin urine, POC Negative Negative (test code = 1181017) Ketones urine, POC (test Negative Negative code = 4017613) Specific gravity urine, 1.010 1.005-1.030 POC (test code = 4938877) Blood urine, POC (test Trace Negative A code = 1069163) pH urine, POC (test code 6.5 See_Comment [A utomated message] = 2241663) The system [employer] generated this result transmitted ref erence range: 5.0, 5.5 , 6.0, 6.5, 7.0, 7.5, 8.0, 8.5. The refere nce range was not u sed to interpret this result as normal/abnor mal. Protein urine, POC (test Negative Negative code = 3070760) Urobilinogen urine, POC <2.0 <=2.0 (test code = 1198708) Nitrite urine, POC (test Positive Negative A code = 5448368) Leukocyte esterase Large Negative A urine, POC (test code = 1829507) Lab Interpretation (test Abnormal code = 11706-2) [facility] urinalysis [id number] 15:20:26 Test Item Value Reference Range Interpretation Comments Color urine, POC (test [place] code = 9807967) Clarity urine, POC (test Cloudy code = 4769415) Glucose urine, POC (test Negative Negative code = 2742516) Bilirubin urine, POC Negative Negative (test code = 2174086) Ketones urine, POC (test Negative Negative code = 2514-8) Specific gravity urine, 1.010 1.005-1.030 POC (test code = 5811-5) Blood urine, POC (test Trace Negative A code = 6663203) pH urine, POC (test code 6.5 See_Comment [A utomated message] = 5803-2) The system [employer] h generated this result transmitted ref erence range: 5.0, 5.5 , 6.0, 6.5, 7.0, 7.5, 8.0, 8.5. The refere nce range was not u sed to interpret this result as normal/abnor mal. Protein urine, POC (test Negative Negative code = 45891-6) Urobilinogen urine, POC <2.0 See_Comment [Au tomated message] (test code = 20411-8) The [employer] stem which generated this result transmitted ref erence range: <=2.0. T he reference range was not used to int erpret this result as normal/abnormal . Nitrite urine, POC (test Positive Negative A code = 5802-4) Leukocyte esterase Large Negative A urine, POC (test code = 4688122) Lab Interpretation (test Abnormal code = 06063-0) [facility] urinalysis iiuacvhx7926-01-32 15:20:26 Test Item Value Reference Range Interpretation Comments Color urine, POC (test [place] code = 2067273) Clarity urine, POC (test Cloudy code = 4938799) Glucose urine, POC (test Negative Negative code = 4916336) Bilirubin urine, POC Negative Negative (test code = 7555476) Ketones urine, POC (test Negative Negative code = 2514-8) Specific gravity urine, 1.010 1.005-1.030 POC (test code = 5811-5) Blood urine, POC (test Trace Negative A code = 2742799) pH urine, POC (test code 6.5 See_Comment [A utomated message] = 5803-2) The system [employer] generated this result transmitted ref erence range: 5.0, 5.5 , 6.0, 6.5, 7.0, 7.5, 8.0, 8.5. The refere nce range was not u sed to interpret this result as normal/abnor mal. Protein urine, POC (test Negative Negative code = 84751-0) Urobilinogen urine, POC <2.0 <=2.0 (test code = 28737-1) Nitrite urine, POC (test Positive Negative A code = 5802-4) Leukocyte esterase Large Negative A urine, POC (test code = 1006129) Lab Interpretation (test Abnormal code = 21306-8) [facility] urinalysis [id number] 15:20:26 Test Item Value Reference Range Interpretation Comments Color urine, POC (test [place] code = 6073497) Clarity urine, POC (test Cloudy code = 0627831) Glucose urine, POC (test Negative Negative code = 3431605) Bilirubin urine, POC Negative Negative (test code = 3622141) Ketones urine, POC (test Negative Negative code = 2514-8) Specific gravity urine, 1.010 1.005-1.030 POC (test code = 5811-5) Blood urine, POC (test Trace Negative A code = 5205254) pH urine, POC (test code 6.5 See_Comment [A utomated message] = 5803-2) The system [employer] generated this result transmitted ref erence range: 5.0, 5.5 , 6.0, 6.5, 7.0, 7.5, 8.0, 8.5. The refere nce range was not u sed to interpret this result as normal/abnor mal. Protein urine, POC (test Negative Negative code = 23697-6) Urobilinogen urine, POC <2.0 <=2.0 (test code = 52224-3) Nitrite urine, POC (test Positive Negative A code = 5802-4) Leukocyte esterase Large Negative A urine, POC (test code = 1561337) Lab Interpretation (test Abnormal code = 23996-0) [facility] [id number] 23:08:00 Test Item Value Reference Range Interpretation Comments Creatinine, 22.3 mg/dL Not Estab. urine (mg/dL) (test code = 2161-8) Albumin, urine <3.0 Not Estab. ug/mL Verifie d by repeat (test code = analysis 51264-3) Microalbumin/c <13 See_Comment Normal: 0 - 29 reatinine Moderately ratio (test increased: 30 - 300 code = 9318-7) Severely incr eased: >300 [Automated message] The sy stem which generated this result transmit gagan reference range : 0 - 29 mg/g creat. The reference range was not used to interpret this result as normal/abnormal . BINDU (test code Performed at: - = [facility]) [facility] [id number] Director: Pedro Mcduffie MD, Phone: [phone] [facility] [id number] 23:08:00 Test Item Value Reference Range Interpretation Comments Creatinine, 22.3 mg/dL Not Estab. urine (mg/dL) (test code = 2161-8) Albumin, urine <3.0 Not Estab. ug/mL Verifie d by repeat (test code = analysis 98244-8) Microalbumin/c <13 See_Comment Normal: 0 - 29 reatinine Moderately ratio (test increased: 30 - 300 code = 9318-7) Severely incr eased: >300 [Automated message] The sy stem which generated this result transmit gagan reference range : 0 - 29 mg/g creat. The reference range was not used to interpret this result as normal/abnormal . BINDU (test code Performed at: 01 - = BINDU) [address] [id number] Director: Pedro Mcduffie MD, Phone: [phone] [facility] [id number] 13:11:00 Test Item Value Reference Range Interpretation Comments Hepatitis C Ab 0.1 See_Comment Negative: < 0.8 (test code = Indeterminate: 0.8 - 93329-1) 0.9 Positive: > 0.9 HCV antibody al one does not differentiate between previou s resolved infect ion and active infection. The CDC and current cli nical guidelines jn mmend that a positive HCV antibody result be followed up wit h an HCV RNA test to support the diagnosis of ac franky HCV infection. [facility] offers Hepatitis C Vir us (HCV) RNA, Diagnosis, YEVGENIY (631868) and Hepatitis C Vir us (HCV) Antibody with reflex to Quantitative Real-time PCR (828772). [Auto mated message] The sy stem which generated this result transmit gagan reference range : 0.0 - 0.9 s/co rati o. The reference r maksim was not used to interpret this result as normal/abnormal . BINDU (test code = Performed at: BINDU) - [address] [id number] Director: Pedro Mcduffie MD, Phone: [phone] [facility] [id number] 13:11:00 Test Item Value Reference Range Interpretation Comments Hepatitis C Ab 0.1 See_Comment Negative: < 0.8 (test code = Indeterminate: 0.8 - 36086-2) 0.9 Positive: > 0.9 HCV antibody al one does not differentiate between previou s resolved infect ion and active infection. The CDC and current cli nical guidelines jn mmend that a positive HCV antibody result be followed up wit h an HCV RNA test to support the diagnosis of ac franky HCV infection. [facility] offers Hepatitis C Vir us (HCV) RNA, Diagnosis, YEVGENIY (078589) and Hepatitis C Vir us (HCV) Antibody with reflex to Quantitative Real-time PCR (707362). [Auto mated message] The sy stem which generated this result transmit gagan reference range : 0.0 - 0.9 s/co rati o. The reference r maksim was not used to interpret this result as normal/abnormal . BINDU (test code = Performed at: 01 BINDU) - [facility] EDCmna[address] [place], [place] [id number] Director: Pedro Mcduffie MD, Phone: [phone] [facility] EowjxbzbLYVW-JhM-1 (COVID-19) RNA [Presence] in Respiratory specimen by YEVGENIY with probe xbqnwdxkt7411-16-03 17:33:22 Test Item Value Reference Range Interpretation Comments SARS-CoV-2 (COVID-19) RNA Not detected Not-Detected [Presence] in Respiratory specimen by YEVGENIY with probe detection (test code = 53602-6) Whether patient is employed in a healthcare setting (test code = 31624-2) Whether the patient has symptoms related to condition of interest (test code = 65769-0) Patient was hospitalized because of this condition (test code = 21646-0) Whether the patient was admitted to intensive care unit (ICU) for condition of interest (test code = 40908-5) Whether patient resides in a congregate care setting (test code = 95013-0) [facility] [Presence] in Respiratory specimen by YEVGENIY with probe [id number] 12:46:53 Test Item Value Reference Range Interpretation Comments SARS-CoV-2 (COVID-19) RNA Not detected Not-Detected [Presence] in Respiratory specimen by YEVGENIY with probe detection (test code = 40315-6) [facility] Hospital[facility]th[facility] Time and [id number] 14:12:59 Test Item Value Reference Range Interpretation Comments Prothrombin Time (test code = 10.9 seconds 9.0-12.0 Prothrombin Time) INR (test code = INR) 1.0 ratio 0.9-1.2 Partial Thromboplastin [id number] 14:12:59 Test Item Value Reference Range Interpretation Comments Partial Thromboplastin Time 26.7 seconds 24.0-35.0 (test code = Partial Thromboplastin Time) CT Brain/Head w/o Ialefflg9809-59-75 14:10:41Patient: TELMA GALVAN Date/Time10/07/2019 13:55 CDTReason for ExamSyncopeReportEXAM INATION: CT BRAIN WITHOUT CONTRASTCOMPARISON: CT head without contrast 10/01/2019; MRI brain with andwithout contrast 08/16/2016CLINICAL INFORMATION: Syncope. The study was [...] Physiologic calcifications of the pineal gland. Osseous structure s are grossly intact. Diffuse osseous demineralization. Partially [...] Lorna, SamerSigned (Electronic Signature): 10/07/2019 2:10 pmMagnesium [id number] 14:08:15 Test Item Value Reference Range Interpretation Comments Magnesium Level (test code = 2.0 mg/dL 1.6-2.6 Magnesium Level) [facility] [id number] 14:08:14 Test Item Value Reference Range Interpretation [...] = AST) 18 IntlUnit/L 15-37 Comprehensive Metabolic [id number] 14:08:14 Test Item Value Reference Range Interpretation [...] >60 mL/min/1.73 m2 N AA) Comprehensive [facility] [id number] 14:08:14 Test Item Value Reference Range Interpretation [...] >60 mL/min/1.73 m2 N eGFR Non-AA) Automated [id number] 14:00:47 Test Item Value Reference Range Interpretation Comments Neutro Auto (test code = Neutro Auto) 71.3 % N Lymph Auto (test code = Lymph Auto) 20.6 % N Hand Auto (test code = Hand Auto) 7.3 % N Eos, Auto (test code = Eos, Auto) 0.1 % N Basophil Auto (test code = Basophil 0.4 % N Auto) Neutro Absolute (test code = Neutro 6.5 x10 2.7-7.3 Absolute) Lymph Absolute (test code = Lymph 1.9 x10 0.8-3.5 Absolute) Hand Absolute (test code = Hand 0.7 x10 0.3-0.9 Absolute) Eos Absolute (test code = Eos 0.0 x10 0.0-0.3 Absolute) Baso Absolute (test code = Baso 0.0 x10 0.0-0.1 Absolute) IG [id number] 14:00:47 Test Item Value Reference Range Interpretation Comments IG (test code = IG) 0 % 0-5 IG Abs (test code = IG Abs) 0 x10 N Complete Blood Count with Ahwqrjeyvylf8636-47-09 14:00:46 Test Item Value Reference Range Interpretation [...] GL_SET_SLIDE _REVIEW_A UTO XR Chest 1 View [id number] 13:50:28Patient: TELMA GALVAN Date/Time10/07/2019 13:43 CDTReason for ExamDifficulty breathi ngReportEXAM: Chest, 1 View at 1336.TECHNIQUE: AP semiupright view.COMPARISON: Chest x-ray 10/03/2019HISTORY: Dyspnea and syncopeFINDINGS: Cardiac size and pulmonary vascularity are within normal limitsfor AP technique. No infiltrate or pleural effusion is seen. Unchanged left humeral neck impaction chronic fracture deformity. Osseous structures are otherwise grossly intact. Diffuse osseous demineralization.IMPRESSION:1. No radiographically active cardiopulmonary disease.2. Diffuse osseous demineralization. Final Dictated by: MD Lorna, SamerDictated DT/TM: 10/07/2019 1:48 pmSigned by:MD Lorna, SamerSigned (Electronic Signature): 10/07/2019 1:50 pmBasic Metabolic [id number] 08:52:12 Test Item Value Reference Range Interpretation [...] 8.3 mg/dL 8.5-10.1 L Level) Basic Metabolic [id number] 08:52:12 Test Item Value Reference Range Interpretation [...] >60 mL/min/1.73 m2 N AA) Basic Metabolic [id number] 08:52:12 Test Item Value Reference Range Interpretation [...] N eGFR Non-AA) Complete Blood Count with Wrjecxcftvbw6175-23-56 08:30:06 Test Item Value Reference Range Interpretation [...] = Slide Review) GL_SET_SLIDE _REVIEW_A UTO Automated [id number] 08:30:06 Test Item Value Reference Range Interpretation Comments Neutro Auto (test code = Neutro Auto) 67.1 % N Lymph Auto (test code = Lymph Auto) 25.5 % N Hand Auto (test code = Hand Auto) 6.8 % N Basophil Auto (test code = Basophil 0.3 % N Auto) Neutro Absolute (test code = Neutro 4.1 x10 2.7-7.3 Absolute) Lymph Absolute (test code = Lymph 1.6 x10 0.8-3.5 Absolute) Hand Absolute (test code = Hand 0.4 x10 0.3-0.9 Absolute) Baso Absolute (test code = Baso 0.0 x10 0.0-0.1 Absolute) IG [id number] 08:30:06 Test Item Value Reference Range Interpretation Comments IG (test code = IG) 0 % 0-5 IG Abs (test code = IG Abs) 0 x10 N POC [id number] 12:41:57 Test Item Value Reference Range Interpretation Comments Glucose POC (test 114 mg/dL 74-106 H POC Glucos e used on code = Glucose POC) critical ly ill patients is considered " off-label use" and has no t been cleared or appr kayla by the FDA. Altern ative testing methods should be considered i f the patient is crit ically ill. Automated [id number] 13:36:53 Test Item Value Reference Range Interpretation Comments Neutro Auto (test code = Neutro Auto) 79.9 % N Lymph Auto (test code = Lymph Auto) 15.2 % N Hand Auto (test code = Hand Auto) 4.2 % N Basophil Auto (test code = Basophil 0.3 % N Auto) Neutro Absolute (test code = Neutro 7.7 x10 2.7-7.3 H Absolute) Lymph Absolute (test code = Lymph 1.5 x10 0.8-3.5 Absolute) Hand Absolute (test code = Hand 0.4 x10 0.3-0.9 Absolute) Baso Absolute (test code = Baso 0.0 x10 0.0-0.1 Absolute) IG [id number] 13:36:53 Test Item Value Reference Range Interpretation Comments IG (test code = IG) 0 % 0-5 IG Abs (test code = IG Abs) 0 x10 N Complete Blood Count with [id number] 13:36:52 Test Item Value Reference Range Interpretation [...] created by = Slide Review) GL_SET_SLIDE _REVIEW_A [facility] Basic Metabolic [id number] 13:01:14 Test Item Value Reference Range Interpretation [...] Calcium 9.1 mg/dL 8.5-10.1 Level) Basic Metabolic [id number] 13:01:14 Test Item Value Reference Range Interpretation [...] >60 mL/min/1.73 m2 N AA) Basic Metabolic [id number] 13:01:14 Test Item Value Reference Range Interpretation [...] >60 mL/min/1.73 m2 N eGFR Non-AA) Urinalysis [id number] 13:00:35 Test Item Value Reference Range Interpretation [...] A Hyal Cast) Urinalysis with Culture, if [id number] 13:00:35 Test Item Value Reference Range Interpretation [...] Ind?) rule GL_SET_UA_MICRO _IND Prothrombin Time and [id number] 12:46:34 Test Item Value Reference Range Interpretation Comments Prothrombin Time (test code = 10.2 seconds 9.0-12.0 Prothrombin Time) INR (test code = INR) 1.0 ratio 0.9-1.2 Partial Thromboplastin [id number] 12:46:34 Test Item Value Reference Range Interpretation Comments Partial Thromboplastin Time 27.1 seconds 24.0-35.0 (test code = Partial Thromboplastin Time) XR Chest 2 [id number] 12:44:47Patient: TELMA GALVAN Date/Time10/03/2019 12:35 CDTReason for [...] Gustavo MSigned (Electronic Signature): 10/03/2019 12:44 pmTroponin [id number] 16:50:12 Test Item Value Reference Range Interpretation Comments Troponin-I (test code = <0.015 ng/mL 0.010-0.040 Troponin-I) Troponin [id number] 15:33:13 Test Item Value Reference Range Interpretation Comments Troponin-I (test code = <0.015 ng/mL 0.010-0.040 Troponin-I) Comprehensive Metabolic [id number] 14:19:11 Test Item Value Reference Range Interpretation [...] AST) 14 IntlUnit/L 15-37 L Comprehensive Metabolic [id number] 14:19:11 Test Item Value Reference Range Interpretation [...] >60 mL/min/1.73 m2 N AA) Comprehensive Metabolic [id number] 14:19:11 Test Item Value Reference Range Interpretation [...] >60 mL/min/1.73 m2 N eGFR Non-AA) IG [id number] 13:58:47 Test Item Value Reference Range Interpretation Comments IG (test code = IG) 0 % 0-5 IG Abs (test code = IG Abs) 0 x10 N Complete Blood Count with [id number] 13:58:46 Test Item Value Reference Range Interpretation [...] = Slide Review) GL_SET_SLIDE _REVIEW_A [facility]TO Automated [id number] 13:58:46 Test Item Value Reference Range Interpretation Comments Neutro Auto (test code = Neutro Auto) 68.8 % N Lymph Auto (test code = Lymph Auto) 27.1 % N Hand Auto (test code = Hand Auto) 3.4 % N Basophil Auto (test code = Basophil 0.4 % N Auto) Neutro Absolute (test code = Neutro 4.6 x10 2.7-7.3 Absolute) Lymph Absolute (test code = Lymph 1.8 x10 0.8-3.5 Absolute) Hand Absolute (test code = Hand 0.2 x10 0.3-0.9 L Absolute) Baso Absolute (test code = Baso 0.0 x10 0.0-0.1 Absolute) CT Brain/Head w/o [id number] 13:38:37Patient: TELMA GALVAN Date/Time09/13/2019 13:24 CDTReason for [...] (Electronic Signature): 09/13/2019 1:38 pmXR Chest 2 [id number] 13:28:06Patient: TELMA GALVAN Date/Time09/13/2019 13:10 CDTReason for ExamChest painReportX-ray CHEST 2 VIEWS:HISTORY: Chest pain, shortness of breathCOMPARISON: NoneThe cardiomediastinal silhouette shows no significant abnormality.No pleural fluid or pulmonary infiltrates are identified.Old fracture deformities are seen in the lower right rib cage, left proximal humerus and thoracolumbar spine.IMPRESSION:No active cardiopulmonary process is identified. Final Dictated by: MD Kenney Ramon JulioDictated DT/TM: 09/13/2019 1:26 pmSigned by: MD Kenney Ramon JulioSigned (Electronic Signature): 09/13/2019 1:28 pmMRI BRAIN W/WO [id number] 09:27:31MRI BRAIN W/WO CONTRASTHISTORY: Syncopal episode, left-sided [...] suspectedretention cyst right maxillary sinus.MRA HEAD WO [id number] 09:20:45MRA BRAIN:CLINICAL INFORMATION: Syncopal episode and left-sided weakness Brain MRA was performed in multiple projections. There is noabnormality identified of the [place] of [place]. Specifically, there isno evidence of cerebral aneurysm or occlusive disease. The distalinternal carotid and vertebral basilar system is unremarkable as well. There is no abnormality identified of the posterior or middle cerebralarteries. The proximal and anterior cerebral arteries are alsovisualized and are normal.IMPRESSION: No evidence of aneurysm or vascular occlusion.XR CHEST SGL 1V, [id number] 16:47:27XR CHEST SGL 1V, FRONTALDIAGNOSIS: Cough and COPDThe heart and mediastinum are normal. No consolidation or pleural fluidis identified. The bilateral pulmonary infiltrates present on 01/17/2015have resolved.IMPRESSION: Negative portable chest.CT HEAD OR BRAIN WO [id number] 16:29:57CT HEAD OR BRAIN WO CONTRASTDIAGNOSIS: Weakness, slurred speech and facial numbnessCerebral atrophy and chronic white matter ischemia are unchanged since05/06/2015. The midline is not shifted. No intracranial hemorrhage, masseffect, extracerebral collection or evidence of an acute infarct isnoted.Radiation dose lowering techniques were used according to Azam.IMPRESSION: Cerebral atrophy and chronic white matter ischemiaunchanged. Notes Date/Time Note Provider Source 2017-04-05 14:10:11 [id number]:10:11 [facility] HISTORY AND PHYSICALPATIENT NAME: TELMA GALVAN PHYSICIAN: Nicolas Roach M.D. ADMITTED: 08/15/2016 19:45:00 MR NUMBER: [id number] DISCHARGED: 08/17/2016 10:44:00 _ ADMITTING DIAGNOSES: The patient has hypertensive emergency, rule out cerebrovascular accident; history of diabetes mellitus, qhg-bbqgdld-flahchmal; history of pancreatic cancer. DISCHARGE DIAGNOSES: Hypertension, controlled; diabetes mellitus; history of pancreatic cancer. CONSULTATION: None. PROCEDURE : MRI/MRA of the brain with negative finding. MICAH Shakeel COMPLAINT: Dizziness. HISTORY OF PRESENT ILLNESS : This is a case history of a 61-year-old Cauc[place] n female with past medical history significant for hypertension, diabetes mellitus, hsr-zdaiprx-lrkykypgv, history of pancreatic cancer. The patient referred for the past 3 days she has been dizzy and taken her medication for control of blood pressure, thinking that she was having an episode of hypoglycemia. The patient due to continuation of symptoms with weakness, numbness and dysarthria, was seen at the emergency room with finding of blood pressure of 180/120. Therefore, CVA with hypertensive crisis was entertained for which the patient was evaluated with CAT scan, it was negative. The patient was admitted for observation for further treatment and management. PAST MEDICAL HISTORY: Significant for above-mentioned, history of hypertension, diabetes mellitus, qec-drdypjp-ghngxlrfa, pancreatic cancer. GILBERT T MEDICATIONS: Metoprolol succinate.ALLERGIES: PROCARDIA. PAST SURGICAL HISTORY: Hysterectomy, cholecystectomy, appendectomy, stomach stapling, bladder suspension, breast implant. SOCIAL HISTORY: The patient denies smoking, quit smoking, quit drinking about a year ago. Denies history of illicit drug abuse. FAMILY HISTORY: Noncontributory. REVIEW OF SYSTEMS: As above-mentioned in the history of present illness. PHYSICAL EXAMINATION:GENERAL: The patient is awake, alert, oriented, in no apparen t distress at the moment of evaluation. VITAL SIGNS: Upon admission, presented with blood pressure 180/120, [facility] HISTORY AND PHYSICALrespiratory rate of 18 , pulse of 70 on room air. HEENT: Normocephalic, atraumatic. NECK: No JVD. CHEST: Decreased breat h sounds at the base of both lungs. HEART: Regular rate and rhythm. ABDOMEN: Soft. No tenderness. Positive bowel sounds. EXTREMITIES: No edema. No lesions. NEUROLOGIC: No gross focal deficits. Cranial nerves II through XII are grossly intact . LABORATORY EVALUATION: The patient upon admissio n was evaluated with chest x-ray with finding of negative portable chest. CT of the head was done with cerebral atrophy and chronic white matter ischemia changes. WBC of 8.7, hemoglobin of 15.6 , hematocrit of 46.1, MCH of 31.0, platelets of 216. PTT of 29.1, PT of 10.9, INR 1.0, ammonia level of 22. Troponin I less than 0.015. Sodium 129, potassium 4.4, chloride 97, CO2 of 23, glucose 97, BUN of 4, creatinine of 0.5, calcium 8.7, total protein of 7.5, albumin of 4.0, bilirubin total 0.4, alkaline phosphatase 173, AST of 18, ALT of 16. Urinalysis, color yellow, clarity clear, specific gravity 1.004, pH of 7.0 , leukocyte esterase trace, wbc's 6 to 10, rbc's 0 to 4, bacteria 4+. Urine culture positive for Morganella morganii. MRI/MRA was done with negative findings. ASSESSMENT: The patient with hypertensive crisis, emergency, negative for ischemic cerebrovascular accident, hypertension, diabetes mellitus. PLAN: The patient was started on IV antibiotics, also on blood pressure medication. The patient's blood pressure controlled; therefore, is being discharged home with metoprolol succinate 25 mg p.o. daily. The patient also was given cyclobenzaprine, also fallon l be given meloxicam 7.5 mg p.o. daily. The patien t will be followed up at the office in 2 weeks for further assessment and treatment of her condition. [facility] HISTORY AND PHYSICALRoussesanchez Roach M.D.CC: KIMBERLY/[id number]: 08/17/2016 10:54:50 ESTDT: 08/17/2016 15:47:11 ESTIASIS /NTS Wyl#: [id number] Electronically Authenticated and Edited by:Nicolas Roach M.D. On 08/18/2016 08:27 AM CDTHPHistory and physical [id number] for patient [id number]:10:11
[2023-02-04 09:21] LABS: Absolute Lymphocytes (CBC) 0.8 K/uL (0.7-4.9); Hematocrit 46.3 % (36.0-45.0); Lymphocytes % 6.4 % (15.3-44.8); MCV 83.6 fL (80-100); MPV 8.4 fL (7.6-11.3); Platelets 363 thou/uL (152-406); RBC Red Blood Cell Count 5.54 M/uL (3.86-4.86)
[2023-02-04] MEDS ORDERED: FAMOTIDINE 20 MG/2 ML VIAL IV ONE (09:28)
[2023-02-04] MEDS ORDERED: NA CHLORIDE 0.9% 50 ML ONE (09:28)
[2023-02-04] MEDS ORDERED: METOCLOPRAMIDE 10 MG/2mL INJ ONE (09:28)
[2023-02-04 09:34] LABS: Protime INR 1.09
[2023-02-04 09:42] LABS: Albumin 4.6 g/dL (3.4-5.0); Bilirubin Direct 0.2 mg/dL (0-0.2); Bilirubin Indirect, Calculated 0.4 mg/dL (0.2-0.8); Magnesium 1.9 mg/dL (1.6-2.4); Troponin High Sensitivity 1421.7 pg/mL (<58.9)
[2023-02-04] MEDS ORDERED: NA CHLORIDE 0.9% 1,000 ML ONE (09:44)
--- NOTE | 2023-02-04 09:51 | RAD REPORT ---
EXAM DESCRIPTION: Deion Single View02/04/2023 9:34 am CLINICAL HISTORY: Chest pain COMPARISON: November 2022 FINDINGS: The lungs appear clear of acute infiltrate. The heart is normal size. Relatively old fracture lower right posterior rib. Old left humeral head fracture IMPRESSION: No acute abnormalities displayed
[2023-02-04 10:07] LABS: Potassium 2.6 mEq/L (3.5-5.1)
[2023-02-04 10:14] LABS: Bilirubin Total 0.6 mg/dL (0.2-1.0)
[2023-02-04 10:32] LABS: Specific Gravity 1.014 (1.005-1.030); Urine Bacteria None Seen /HPF (<20); Urine Bilirubin NEGATIVE (Negative); Urine Blood 1+ (Negative); Urine Clarity Turbid (Clear); Urine Color Light-Yellow (Yellow); Urine Glucose 2+ (Negative); Urine Protein 3+ (Negative); Urine Urobilinogen Normal (Normal); Urine pH 7.5 (5.0-7.0)
[2023-02-04] MEDS ORDERED: NITROGLYCERIN 0.4 MG/TAB SL ONE (10:32)
[2023-02-04] MEDS ORDERED: HEPARIN/D5W 25,000 UNIT/500 ML BAG IV ONE (10:44)
[2023-02-04] MEDS ORDERED: ONDANSETRON 4 MG/2 ML VIAL ONE (10:44)
[2023-02-04] MEDS ORDERED: HEPARIN 5000 UNIT/ML 1 ML VIAL ONE (10:57)
[2023-02-04] MEDS ORDERED: KCL 20 MEQ/100 mL IVPB 100 ML IV ONE (10:57)
[2023-02-04 10:59] LABS: Blood Morphology Comment NOT SEEN (NOT SEEN); Platelet Estimate ADEQ
--- NOTE | 2023-02-04 11:07 | EDPHYS ---
Physician Documentation [facility] Name: Reina Hartley Age: 67 yrs Sex: Female : 1955 Arrival Date: 02/04/2023 Time: 08:43 Bed 14 Private MD: ED Physician Yumi Holder HPI: 02/04 08:50 This 67 yrs old Female presents to ER via Unassigned with complaints of Nausea/Vomiting.cp 08:50 The patient presents to the emergency department with nausea, with "dry heaves", cp vomiting, that is continuous. Onset: The symptoms/episode began/occurred yesterday. 08:50 Possible causes: unknown. cp 08:50 Associated signs and symptoms: Pertinent positives: abdominal pain, chest pain, cp Pertinent negatives: constipation, diarrhea, fever, GI bleeding. Severity of symptoms: in the emergency department the symptoms are unchanged despite EMS interventions. Historical: - Allergies: 08:50 Procardia; db - PMHx: 08:50 Hypertensive disorder; Diabetes mellitus; db - PSHx: 08:50 BREAST AUGMENTATION; Cholecystectomy; GASTRIC BYPASS; db 08:52 HYSTERECTOMY; db - Immunization history:: Adult Immunizations unknown. - Social history:: Smoking status: Patient reports the use of cigarette tobacco products, smokes one-half pack cigarettes per day. ROS: 08:55 Constitutional: Negative for fever, cp 08:55 Cardiovascular: Positive for chest pain, cp 08:55 Respiratory: Negative for cough, shortness of breath, wheezing, 08:55 Eyes: Negative for injury, pain, redness, and discharge, cp 08:55 ENT: Negative for drainage from ear(s), ear pain, sore throat, difficulty swallowing, cp difficulty handling secretions, 08:55 Abdomen/GI: Positive for abdominal pain, nausea and vomiting, Negative for diarrhea, constipation, hematemesis, 08:55 : Negative for urinary symptoms, 08:55 Neuro: Negative for altered mental status, headache, syncope, 08:55 All other systems are negative, Exam: 09:00 Constitutional: The patient appears alert, awake, non-diaphoretic, non-toxic, well cp developed, well nourished, uncomfortable, 09:00 Head/Face: Normocephalic, atraumatic. cp 09:00 Eyes: Periorbital structures: appear normal, Conjunctiva: normal, no exudate, no injection, Sclera: no appreciated abnormality, Lids and lashes: appear normal, bilaterally, 09:00 ENT: External ear(s): are unremarkable, Nose: is normal, 09:00 Neck: ROM/movement: is normal, is supple, without pain, no range of motions cp limitations, no nuchal rigidity, 09:00 Chest/axilla: Inspection: normal, 09:00 Cardiovascular: Rate: tachycardic, Rhythm: regular, Edema: is not appreciated, JVD: is not appreciated, 09:00 Respiratory: the patient does not display signs of respiratory distress, Respirations: cp normal, no use of accessory muscles, no retractions, labored breathing, is not present, Breath sounds: are clear throughout, no decreased breath sounds, no stridor, no wheezing, 09:00 Abdomen/GI: Inspection: abdomen appears normal, Bowel sounds: active, all quadrants, Palpation: soft, in all quadrants, moderate abdominal tenderness, in the right upper quadrant and left upper quadrant, rebound tenderness, is not appreciated, voluntary guarding, is elicited in the right upper quadrant and left upper quadrant, 09:00 Back: CVA tenderness, is absent, 09:00 Neuro: Orientation: to person, place \\T\\ time. Mentation: is normal, Motor: moves all fours, strength is normal, Sensation: is normal, Vital Signs: 08:40 BP 167 / 141; Pulse 116; Resp 16; Temp 97.5(O); Pulse Ox 97% ; Weight 63.5 kg; Height 5 db ft. 2 in. ; 09:00 BP 193 / 131; Pulse 111; Resp 18; Pulse Ox 97% on R/A; db 09:46 BP 192 / 120; Pulse 108; Resp 18; Pulse Ox 98% on R/A; db 10:00 BP 183 / 116; Pulse 109; Resp 16; Pulse Ox 98% on R/A; db 10:15 BP 194 / 126; Pulse 112; Pulse Ox 98% on R/A; db 10:20 BP 157 / 122; Pulse 139; Resp 20; Pulse Ox 95% on R/A; db 10:25 BP 169 / 121; Pulse 124; Resp 20; Pulse Ox 95% on R/A; db 10:30 BP 182 / 122; Pulse 115; Resp 28; Pulse Ox 95% on R/A; db 11:00 BP 182 / 126; Pulse 108; Resp 24; Pulse Ox 95% on R/A; db 08:40 Body Mass Index 25.61 (63.50 kg, 157.48 cm) db MDM: 08:50 Patient medically screened. cp 09:00 Differential diagnosis: Nonspecific abd pain, gastritis, pancreatitis, appendicitis, cp gastroenteritis, acute FL, aortic dissection. 10:20 ED course: Labs, EKG discussed with DR Holder. Will give nitro sublingual times 3, cp repeat EKG, CT aorta. 10:40 ED course: Transfer initiated to [facility] in the [facility] with consult cp initiated with electrical solderer Dr. Candelario. Discuss concerning findings on EKG that showed ST elevation in V2 through V5, patient's reported chest pain. Recommendation was made to start heparin drip and give heparin bolus, give aspirin. Does not recommend tenecteplase at this time and or Plavix. Patient will be transferred under non-ST elevation FL and will be flown if possible. 10:45 Data reviewed: vital signs, nurses notes, lab test result(s), EKG, radiologic studies, cp plain films. 10:45 I considered the following discharge prescriptions or medication management in the emergency department Medications were administered in the Emergency Department. See MAR. Independent interpretation of the following test(s) in the Emergency Department EKG: See my EKG interpretation above X-Ray: My interpretation is chest image negative for infiltrates. Care significantly affected by the following chronic conditions: Diabetes, Hypertension. Counseling: I had a detailed discussion with the patient and/or guardian regarding the historical points, exam findings, and any diagnostic results supporting the discharge/admit diagnosis, the presence of at least one elevated blood pressure reading (>120/80) during this emergency department visit, lab results, radiology results, the need to transfer to another facility, for higher level of care. Response to treatment: the patient's symptoms have mildly improved after treatment. 02/04 08:50 Order name: Basic Metabolic Panel; Complete Time: 10:18 02/04 10:12 Interpretation: Normal except: NA 128; K 2.6; CL 94; GLUC 257; CRE 1.03; GFR 59. 02/04 08:50 Order name: CBC with Diff 02/04 09:50 Interpretation: Normal except: WBC 13.10; RBC 5.54; HGB 16.4; HCT 46.3; RDW 15.8; SEVERO% cp 89.7; LYM% 6.4; NEUT A 11.7. 02/04 08:50 Order name: LFT's; Complete Time: 10:18 02/04 10:12 Interpretation: Normal except: AST 48; ALK 144; TP 9.0; GLOB 4.4; A/G 1.0. 02/04 08:50 Order name: Magnesium; Complete Time: 10:18 02/04 10:12 Interpretation: MG 1.9; Reviewed. 02/04 08:50 Order name: NT PRO-BNP; Complete Time: 10:18 02/04 10:12 Interpretation: Abnormal: NT PRO-BNP 49108. 02/04 08:50 Order name: PT-INR; Complete Time: 09:50 02/04 08:50 Order name: Troponin HS; Complete Time: 10:18 02/04 10:12 Interpretation: Abnormal: Troponin HS 1421.7. 02/04 08:50 Order name: Lipase; Complete Time: 10:18 02/04 08:50 Order name: Urinalysis W/Microscopic; Complete Time: 10:39 02/04 09:20 Order name: COVID-19 SARS RT PCR 02/04 09:20 Order name: Influenza Screen (a \\T\\ B) 02/04 09:34 Order name: Glucose, Ancillary Testing; Complete Time: 09:50 EDMS 02/04 09:50 Interpretation: Abnormal: GLUC,ANCIL 282. 02/04 10:59 Order name: Ptt, Activated db 02/04 10:59 Order name: Manual Differential EDMS 02/04 08:50 Order name: XRAY Chest (1 view); Complete Time: 09:52 02/04 10:19 Order name: CT Aorta for Dissection 02/04 10:19 Order name: CT Head Brain wo Cont 02/04 08:50 Order name: EKG; Complete Time: 08:50 02/04 08:50 Order name: Cardiac monitoring; Complete Time: 09:19 02/04 08:50 Order name: EKG - Nurse/Tech; Complete Time: 10:04 02/04 08:50 Order name: IV Saline Lock; Complete Time: 09:19 02/04 08:50 Order name: Labs collected and sent; Complete Time: 09:19 02/04 08:50 Order name: O2 Per Protocol; Complete Time: : 02/04 08:50 Order name: O2 Sat Monitoring; Complete Time: 09: 02/04 09:20 Order name: Accucheck Blood Glucose; Complete Time: 09:40 cp Administered Medications: 09:15 Drug: Famotidine IVP 20 mg IVP once; dilute with 10 mL 0.9% NaCl; give over 2 minutes db Route: IVP; Site: right forearm; 11:38 Follow up: Response: No adverse reaction db 09:16 Drug: metoCLOPramide IVP 10 mg IVP once; over 1 to 2 minutes Route: IVP; Site: right db forearm; 11:38 Follow up: Response: No adverse reaction db 09:30 Drug: NS 0.9% IV 500 ml IV at bolus once Route: IV; Rate: bolus; Site: right forearm; db 11:00 Follow up: Response: No adverse reaction; IV Status: Completed infusion; IV Intake: db 500ml 10:00 Drug: NS 0.9% IV 500 ml IV at 125 ml/hr continuous Route: IV; Rate: 125 ml/hr; Site: right forearm; 11:38 Follow up: IV Status: Infusion continued upon transfer db 10:20 Drug: Nitroglycerin Sublingual 0.4 mg Sublingual once; every five minute if needed x3 db Route: Sublingual; 10:25 Drug: Nitroglycerin Sublingual 0.4 mg Sublingual once; every five minute if needed x3 db Route: Sublingual; 10:30 Drug: Nitroglycerin Sublingual 0.4 mg Sublingual once; every five minute if needed x3 db Route: Sublingual; 11:37 Follow up: Response: No adverse reaction db 10:35 Drug: Ondansetron IVP 4 mg IVP once; over 2 minutes Route: IVP; Site: right forearm; db 11:37 Follow up: Response: No adverse reaction db 11:05 Drug: Heparin (FL-Bolus No thrombolytic) - HEParin IVP 60 units/kg IVP once; Max 5000 db units {Co-Signature: ll1 (Tru Stevens RN).} Route: IVP; Site: right forearm; 11:37 Follow up: Response: No adverse reaction db 11:08 Drug: Heparin (FL Drip) 12 units/kg/[place] - ([place] [address] units, D5W IV 500 ml) IV at db calculated rate Per protocol; Max initial rate 1000 units/hr {Co-Signature: ll1 (Tru Stevens RN).} Route: IV; Rate: calculated rate; Site: right forearm; 11:36 Follow up: IV Status: Infusion continued upon transfer db 11:15 Drug: Aspirin PO Chewable Tablet 324 mg PO once; 81 mg tablets x 4 Route: PO; db 11:36 Follow up: Response: No adverse reaction db 11:30 Drug: Nitro Drip 5 mcg/min - (Nitroglycerin IV 50 mg, D5W IV 250 ml) IV at 100 mcg/min db See Administration Instructions; Recommended max rate 400 mcg/min; Titrate 5 to 20 mcg/min as often as every 5 minutes to achieve goal; Goal parameter SBP less than 160 bpm; Use low-sorbing IV tubing. Route: IV; Rate: 100 mcg/min; Site: left antecubital; 11:36 Follow up: IV Status: Infusion continued upon transfer db 11:34 Drug: Potassium Chloride IV 20 mEq IV at calculated rate once; administer over 1-2 db hours Route: IV; Rate: calculated rate; Site: left antecubital; 11:37 Follow up: IV Status: Infusion continued upon transfer db 11:34 Drug: Potassium PO Effervescent Tablet 50 mEq PO once; dissolve in 4 ounces of water or db juice Route: PO; 11:34 Follow up: Response: Vomiting increased; PT DID NOT TOLERATE PO POTASSIUM NOTIFIED db PROVIDER Point of Care Testing: Blood Glucose: : Blood Glucose: 282 mg/dL; db Ranges: Critical Glucose Levels:Adult <50 mg/dl or >400 mg/dl <40 mg/dl or >180 mg/dl Disposition Summary: 02/04/23 11:06 Transfer Ordered Notes: Transfer Location: [facility] cp Reason: Higher level of care cp Condition: Stable cp Problem: new cp Symptoms: have improved cp Accepting Physician: DR Candelario(02/04/23 12:07) ll1 Diagnosis - Diabetes mellitus due to underlying condition with hyperglycemia cp - Hypokalemia cp - ST elevation (STEMI) myocardial infarction of unspecified site cp - Essential (primary) hypertension cp Forms: - Medication Reconciliation Form cp - SBAR form cp Signatures: Dispatcher [employer] EDElias Barrera PA PA cp Lewis, Lynsay, RN RN ll1 Anitra Shaw RN RN db Lewis, Lynsay RN ll1 Corrections: (The following items were deleted from the chart) 11:42 11:06 DR Kodak barros 12:07 11:42 DR Kodak barros ll1
--- NOTE | 2023-02-04 11:07 | ER ---
Nurse's Notes [facility] [place] Name: Reina Hartley Age: 67 yrs Sex: Female : 1955 Arrival Date: 02/04/2023 Time: 08:43 Bed 14 Private MD: Diagnosis: Diabetes mellitus due to underlying condition with hyperglycemia;Hypokalemia;ST elevation (STEMI) myocardial infarction of unspecified site;Essential (primary) hypertension Presentation: 02/04 08:40 Chief complaint: EMS states: PATIENT COMPLAINS OF N/V SINCE YESTERDAY AND NOT EATING X db 2 DAYS. BGL 379. NON COMPLIANT WITH METOPROLOL AND DOES NOT TAKE MEDICATION FOR DIABETES BECAUSE IT HAS BEEN CONTROLLED. Coronavirus screen: Vaccine status: Patient reports receiving the 2nd dose of the covid vaccine. Client denies travel out of the [place] in the last 14 days. At this time, the client does not indicate any symptoms associated with coronavirus-19. Ebola Screen: Patient negative for fever greater than or equal to 101.5 degrees Fahrenheit, and additional compatible Ebola Virus Disease symptoms Patient denies exposure to infectious person. Patient denies travel to an Ebola-affected area in the 21 days before illness onset. No symptoms or risks identified at this time. Initial Sepsis Screen: Does the patient meet any 2 criteria? No. Patient's initial sepsis screen is negative. Does the patient have a suspected source of infection? No. Patient's initial sepsis screen is negative. Risk Assessment: Do you want to hurt yourself or someone else? Patient reports no desire to harm self or others. Onset of symptoms was February 04, 2023. Care prior to arrival: Glucose check: 379. 08:40 Method Of Arrival: EMS: [facility] db 08:40 Acuity: ANDREA 2 db Triage Assessment: 08:40 General: Appears in no apparent distress. uncomfortable, Behavior is cooperative. Pain: db Complains of pain in abdomen. Neuro: Level of Consciousness is awake, alert, obeys commands, Oriented to person, place, time, situation. Respiratory: Airway is patent Respiratory effort is even, unlabored, Respiratory pattern is regular, symmetrical. GI: Reports lower abdominal pain, nausea, vomiting. Historical: - Allergies: 08:50 Procardia; db - PMHx: 08:50 Hypertensive disorder; Diabetes mellitus; db - PSHx: 08:50 BREAST AUGMENTATION; Cholecystectomy; GASTRIC BYPASS; db 08:52 HYSTERECTOMY; db - Immunization history:: Adult Immunizations unknown. - Social history:: Smoking status: Patient reports the use of cigarette tobacco products, smokes one-half pack cigarettes per day. Screenin:23 [facility] ED Fall Risk Assessment (Adult) History of falling in the last 3 months, db including since admission No falls in past 3 months (0 pts) Confusion or Disorientation No (0 pts) Intoxicated or Sedated No (0 pts) Impaired Gait No (0 pts) Mobility Assist Device Used No (0 pt) Altered Elimination No (0 pt) Score/Fall Risk Level 0 - 2 = Low Risk Oriented to surroundings, Maintained a safe environment. Abuse screen: Denies threats or abuse. Denies injuries from another. Nutritional screening: No deficits noted. Tuberculosis screening: No symptoms or risk factors identified. Assessment: 08:53 Reassessment: Patient appears in no apparent distress at this time. Patient and/or db family updated on plan of care and expected duration. Pain level reassessed. Patient is alert, oriented x 3, equal unlabored respirations, skin warm/dry/pink. Reassessment: SEE TRIAGE FOR INITIAL ASSESSMENT. General: Appears in no apparent distress. comfortable, Behavior is calm, cooperative. 10:06 Reassessment: POTASSIUM 2.9, TROP 1,421.7. PAGE PROVIDER NOTIFIED. db 10:21 Reassessment: REPEAT EKG AT BEDSIDE. db 10:38 Reassessment: PT TO CT. db 11:00 Reassessment: CALLED LAB FOR ADD ON OF PTT FOR HEPARIN DRIP. db 11:21 Reassessment: REPORT GIVEN TO WALI RIVERA. db 11:34 Reassessment: LIFE FLIGHT TEAM AT PATIENT BEDSIDE. PT MEDICATIONS AND CARE HANDED OVER db TO TEAM. 11:35 Reassessment: Patient appears in no apparent distress at this time. Patient is alert, db oriented x 3, equal unlabored respirations, skin warm/dry/pink. Neuro: Level of Consciousness is awake, alert, obeys commands, Oriented to person, place, time, situation. Respiratory: Airway is patent Respiratory effort is even, unlabored, Respiratory pattern is regular, symmetrical. GI: Abdomen is flat, non-distended, Reports nausea, vomiting. Vital Signs: 08:40 BP 167 / 141; Pulse 116; Resp 16; Temp 97.5(O); Pulse Ox 97% ; Weight 63.5 kg; Height 5 db ft. 2 in. ; 09:00 BP 193 / 131; Pulse 111; Resp 18; Pulse Ox 97% on R/A; db 09:46 BP 192 / 120; Pulse 108; Resp 18; Pulse Ox 98% on R/A; db 10:00 BP 183 / 116; Pulse 109; Resp 16; Pulse Ox 98% on R/A; db 10:15 BP 194 / 126; Pulse 112; Pulse Ox 98% on R/A; db 10:20 BP 157 / 122; Pulse 139; Resp 20; Pulse Ox 95% on R/A; db 10:25 BP 169 / 121; Pulse 124; Resp 20; Pulse Ox 95% on R/A; db 10:30 BP 182 / 122; Pulse 115; Resp 28; Pulse Ox 95% on R/A; db 11:00 BP 182 / 126; Pulse 108; Resp 24; Pulse Ox 95% on R/A; db 08:40 Body Mass Index 25.61 (63.50 kg, 157.48 cm) db ED Course: 08:48 Patient arrived in ED. ll1 08:48 Anitra Shaw, WALI is Primary Nurse. db 08:48 Elias Vegas PA is PHCP. cp 08:48 Yumi Holder MD is Attending Physician. cp 08:50 Triage completed. db 08:52 Arm band placed on Patient placed in an exam room. db 09:15 Inserted saline lock: 22 gauge in right forearm, using aseptic technique. Blood db collected. 09:35 XRAY Chest (1 view) In Process Unspecified. EDMS 10:21 Patient has correct armband on for positive identification. Side rails up X 1. db 10:26 Transfer initiated with STEMI line at [facility] transfer center. em1 10:48 CT Aorta for Dissection In Process Unspecified. EDMS 10:48 CT Head Brain wo Cont In Process Unspecified. EDMS 11:23 Inserted saline lock: 20 gauge in left forearm, using aseptic technique. eh3 11:39 Provided Education on: TRANSFERRED. Client placed on continuous cardiac and pulse db oximetry monitoring. NIBP monitoring applied. Warm blanket given. 11:39 No provider procedures requiring assistance completed. Patient transferred, IV remains db in place. Administered Medications: 09:15 Drug: Famotidine IVP 20 mg IVP once; dilute with 10 mL 0.9% NaCl; give over 2 minutes db Route: IVP; Site: right forearm; 11:38 Follow up: Response: No adverse reaction db 09:16 Drug: metoCLOPramide IVP 10 mg IVP once; over 1 to 2 minutes Route: IVP; Site: right db forearm; 11:38 Follow up: Response: No adverse reaction db 09:30 Drug: NS 0.9% IV 500 ml IV at bolus once Route: IV; Rate: bolus; Site: right forearm; db 11:00 Follow up: Response: No adverse reaction; IV Status: Completed infusion; IV Intake: db 500ml 10:00 Drug: NS 0.9% IV 500 ml IV at 125 ml/hr continuous Route: IV; Rate: 125 ml/hr; Site: db right forearm; 11:38 Follow up: IV Status: Infusion continued upon transfer db 10:20 Drug: Nitroglycerin Sublingual 0.4 mg Sublingual once; every five minute if needed x3 db Route: Sublingual; 10:25 Drug: Nitroglycerin Sublingual 0.4 mg Sublingual once; every five minute if needed x3 db Route: Sublingual; 10:30 Drug: Nitroglycerin Sublingual 0.4 mg Sublingual once; every five minute if needed x3 db Route: Sublingual; 11:37 Follow up: Response: No adverse reaction db 10:35 Drug: Ondansetron IVP 4 mg IVP once; over 2 minutes Route: IVP; Site: right forearm; db 11:37 Follow up: Response: No adverse reaction db 11:05 Drug: Heparin (KS-Bolus No thrombolytic) - HEParin IVP 60 units/kg IVP once; Max 5000 db units {Co-Signature: ll1 (Tru Stevens RN).} Route: IVP; Site: right forearm; 11:37 Follow up: Response: No adverse reaction db 11:08 Drug: Heparin ([place] Drip) 12 units/kg/[place] [address] units, D5W IV 500 ml) IV at db calculated rate Per protocol; Max initial rate 1000 units/hr {Co-Signature: ll1 (Tru Stevens RN).} Route: IV; Rate: calculated rate; Site: right forearm; 11:36 Follow up: IV Status: Infusion continued upon transfer db 11:15 Drug: Aspirin PO Chewable Tablet 324 mg PO once; 81 mg tablets x 4 Route: PO; db 11:36 Follow up: Response: No adverse reaction db 11:30 Drug: Nitro Drip 5 mcg/min - (Nitroglycerin IV 50 mg, D5W IV 250 ml) IV at 100 mcg/min db See Administration Instructions; Recommended max rate 400 mcg/min; Titrate 5 to 20 mcg/min as often as every 5 minutes to achieve goal; Goal parameter SBP less than 160 bpm; Use low-sorbing IV tubing. Route: IV; Rate: 100 mcg/min; Site: left antecubital; 11:36 Follow up: IV Status: Infusion continued upon transfer db 11:34 Drug: Potassium Chloride IV 20 mEq IV at calculated rate once; administer over 1-2 db hours Route: IV; Rate: calculated rate; Site: left antecubital; 11:37 Follow up: IV Status: Infusion continued upon transfer db 11:34 Drug: Potassium PO Effervescent Tablet 50 mEq PO once; dissolve in 4 ounces of water or db juice Route: PO; 11:34 Follow up: Response: Vomiting increased; PT DID NOT TOLERATE PO POTASSIUM NOTIFIED db PROVIDER Medication: 11:39 VIS not applicable for this client. Point of Care Testing: Blood Glucose: 09:23 Blood Glucose: 282 mg/dL; db Ranges: Intake: 11:00 IV: 500ml; Total: 500ml. db Outcome: 11:06 ER care complete, transfer ordered by MD. 11:39 Transferred by helicopter Transfer form completed. X-rays sent w/ patient. 11:41 Condition: stable db 11:41 Instructed on the need for transfer, 11:42 Patient left the ED. db 12:07 Patient left the ED. ll1 Signatures: Dispatcher [employer] Pablo Gilman em1 Elias Vegas PA PA cp Lewis, Lynsay, RN RN 1 Haven Flowers RN RN [facility] Anitra Shaw RN RN db Tru Stevens RN 1
--- NOTE | 2023-02-04 11:22 | RAD REPORT ---
EXAM DESCRIPTION: CT - Head Brain Wo Cont - 02/04/2023 10:47 am CLINICAL HISTORY: Headache COMPARISON: November 2022 TECHNIQUE: Computed axial tomography of the head was obtained. IV contrast was not requested. All CT scans are performed using dose optimization technique as appropriate and may include automated exposure control or mA/KV adjustment according to patient size. FINDINGS: An intracranial bleed is not seen The ventricles are normal in caliber No extra-axial fluid collection is noted. Low-density right basal ganglia unchanged may represent old lacunar infarction. Mild to moderate low-density areas within periventricular, deep and subcortical white matter likely r epresent ischemic changes secondary to small vessel disease. Fluid within the sinuses/ mastoids is not seen. IMPRESSION: No acute intracranial abnormality is seen If patient's symptoms persist MRI of the brain would be recommended
[2023-02-04] MEDS ORDERED: ASPIRIN 81 MG CHEWABLE TABLET ONE (11:37)
[2023-02-04] MEDS ORDERED: POTASSIUM 25 MEQ EFFERV TAB ONE (11:37)
[2023-02-04] MEDS ORDERED: NITROGLYCERIN/D5W 50 MG/250 ML BTL IV ONE (11:38)
--- NOTE | 2023-02-04 11:46 | RAD REPORT ---
EXAM DESCRIPTION: CT - Angio Aorta For Dissection - 02/04/2023 10:47 am CLINICAL HISTORY: . Chest and abd pain COMPARISON: November 2022 TECHNIQUE: Computed tomography angiography of the chest, abdomen pelvis were obtained. 100 cc Isovue 370 was administered intravenously. Coronal and sagittal reconstruction were performed. MIP 3D reconstruction was performed All CT scans are performed using dose optimization technique as appropriate and may include automated exposure control or mA/KV adjustment according to patient size. FINDINGS: An aortic dissection is not seen. An aortic aneurysm is not displayed. The celiac, SMA and KEVYN are patent . Plaque left common iliac artery results in a high-grade stenosis A lung consolidation is not present. A pericardial effusion is not seen. A pleural effusion is not no gagan. Plaque proximal left renal artery results in a high-grade stenosis. Left kidney is diminished in size with diminished concentration of contrast. Postsurgical changes involve the stomach. Mild dilatation of the esophagus Chronic compression deformities involve several lower thoracic/upper lumbar vertebral bodies There no evidence diverticulitis. IMPRESSION: Negative for an aortic dissection. High-grade stenosis proximal left renal artery. Left kidney is diminished in size with diminished con centration of contrast perhaps secondary to ischemia
[2023-02-04 12:17] VITALS: O2SAT 95
[2023-02-04 12:21] VITALS: BP 182/126
--- NOTE | 2023-02-07 16:56 | EKG ---
Test Date: 2023-02-04 Test Time: 10:02:00 Demand Equipment Repairer: JUDY MEASUREMENT RESULTS: Intervals: Rate: 109 SD: 202 QRSD: 94 QT: 326 QTc: 439 [place]: P: 98 SD: 202 QRS: 61 T: 252 INTERPRETIVE STATEMENTS: Sinus tachycardia Inferior infarct, age undetermined T wave abnormality, consider anterolateral ischemia Abnormal ECG Compared to ECG 12/06/2022 13:15:18 Myocardial infarct finding now present T-wave abnormality now present Possible ischemia now present Sinus rhythm no longer present Electronically Signed On 02-07-23 16:52:44 CODING SPECIALIST by David Irby
== END 2023-02-04 12:07 | disposition short-term general hospital (02) ==
LOC: ER 08:43
DX: I21.4 Non-ST elevation (NSTEMI) myocardial infarction (principal); I10 Essential (primary) hypertension; E08.65 Diabetes mellitus due to underlying condition with hyperglycemia; E87.6 Hypokalemia; F17.210 Nicotine dependence, cigarettes, uncomplicated; Z11.52 Encounter for screening for COVID-19; Z98.82 Breast implant status; Z88.8 Allergy status to other drugs, medicaments and biological substances
CPT/HCPCS: 93005; 85025; 81001; 80048; 36415; 83735; 85610; 82947; 80076; 85730; 84484; 83690; 83880; 87635; 87804 ×2; 70450; 71275; 74175; 71045; 99285; Q9967; J1644; J3480; J2765; J2405; J7040

== ENCOUNTER 2023-02-14 10:56 | Emergency (ER) | payer OTHER ==
--- OUTSIDE RECORDS SUMMARY | 2023-02-14 11:05 | XMS REPORT | Continuity of Care Document ---
:1955 Author Organization [facility] t Address [address] [place] [address] [place] [id number] Care Team Providers Name Role Phone NAINA DUKE Primary Care Physician Unavailable RASHEEDA ORDONEZ Attending Clinician Unavailable Jonathon Phillips Attending Clinician Unavailable Jonathon Phillips Attending Clinician Unavailable Ani Amado RN Attending Clinician Unavailable Luis Bowen MD Attending Clinician Amparo BACA, Jimbo Evans Attending Clinician Rasheeda Ordonez MD Attending Clinician LUIS BOWEN Attending Clinician Unavailable [email or web address] Attending Clinician Unavailable Mickie Cronin RN Attending Clinician Unavailable ALTHEA RIBERA Attending Clinician Unavailable [facility]ablito [facility] Attending Clinician Unavailable Naheed BACA, Jose Sanchez Attending Clinician Clayton BACA, Soledad Recinos Attending Clinician [phone] Sulema Benito MD Attending Clinician Jose BACA, Sarai Castro Attending Clinician Mari Estrella MD Attending Clinician Zoran BACA, Jamia Infante Attending Clinician Raffaele Hurtado MD Attending Clinician Deborah Gomez MD Attending Clinician Bernard Haider MA Attending Clinician Unavailable Sarah Ordoñez MA Attending Clinician Unavailable Josh Oakes MA Attending Clinician Unavailable Macey MCKEON, Estrellita Attending Clinician Kishan Reid MD Attending Clinician [phone] Jamia Jean MA Attending Clinician Unavailable Margy Clifton Attending Clinician [phone] Violet Haider MA Attending Clinician Unavailable BUTCH BURNETTE Attending Clinician Unavailable DIANA CRESPO Attending Clinician Unavailable AMRIELOS RIVERO Attending Clinician Unavailable HAYES BYRNE Attending Clinician Unavailable VENICE ALDRIDGE Attending Clinician Unavailable MD VENICE ALDRIDGE Attending Clinician Unavailable ROLLY MICHELLE Attending Clinician Unavailable MD ROLLY MICHELLE Attending Clinician Unavailable JONATHON PHILLIPS Attending Clinician Unavailable Abimael Lafleur Attending Clinician Unavailable Abimael Lafleur Attending Clinician Unavailable BLAKE GIFFORD M.D., Lizbeth LOZANO Attending Clinician Unavailable LUIS BOWEN Admitting Clinician Unavailable Jonathon Phillips Admitting Clinician Unavailable GC_CCW_Laura_R Admitting Clinician Unavailable BACILIO, ALTHEA Admitting Clinician Unavailable SULEMA BENITO Admitting Clinician Unavailable VENICE ALDRIDGE Admitting Clinician Unavailable MD VENICE ALDRIDGE Admitting Clinician Unavailable CHAPARRO CROWLEY Admitting Clinician Unavailable MD CHAPARRO CROWLEY Admitting Clinician Unavailab Abimael Cox Admitting Clinician Unavailable Silvana GARCIA M.D., Lizbeth Pina Admitting Clinician Unavaila ble Payers Payer Name Policy Type Policy Number Effective Date Expiration Date Kenney HUFFMAN MEDICARE [id number] 2022 00:00:00 [facility] POS [id number] 2019 00:00:00 [facility] [id number] 2022 (HMO) 00:00:00 [facility] [id number] 2022 (MEDICARE 00:00:00 REPLACEMENT HMO) 2 M [id number] 2022 00:00:00 Problems Condition Condition Condition Status Onset Resolution Last Treating Co mments Source Name Details Category Date Date Treatment Clinician Date NSTEMI NSTEMI Disease Recurre 2022-[address] [facility] (non-ST (non-ST [facility]ce 1-24 [facility] elevated elevated 00:00: Medica l myocardial myocardial 00 Ce nter infarction infarction ) ) Symptomati Symptomati Disease Active M ethodi c anemia c anemia 05-20 00:00: Hospita 00 l Chest Chest Disease Active Methodi tightness tightness 05-20 00:00: Hospita 00 l Dyspnea on Dyspnea on Disease Active M ethodi exertion exertion 05-20 00:00: Hospita 00 l Housing Housing Disease Active Methodi instabilit instabilit 05-20 y y 00:00: Hospita 00 l Iron Iron Disease Active Overview: Method i deficiency deficiency 05-[address] anemia anemia 00:00: g of this Hospita 00 note l might be different from the original. Added automatic ally from request for surgery [id number] Alcohol Alcohol Disease Active Methodi dependence dependence [...] ents Source Name Type Date Date Clinician Nifedipi Propensi Active 2022-[address] [facility] ne ty to 04-06 [facility] adverse 00:00: Medical reaction 00 Center s NIFEDIPI Allergy Active 2022-[address] [facility] 04-06 [facility] 00:[facility]: Medical 00 Center No Known NA Active [facility] 07-06 [...] 14 l Sertrali Propensi Active Other (See Ri thodi ne ty to Comments) 10-22 adverse 00:00: Hospita reaction 00 l s to drug Nifedipi Propensi Active Unknown Metho di ne ty to Reaction 04-08 st adverse 00:00: Hospita reaction 00 l s to drug Other Propensi Active Rash Methodi ty to 04-08 st adverse 00:00: Hospita reaction 00 l s Procardi Drug Active [facility] Procardi Drug Active [facility] Procardi Drug Active [facility] Procardi Drug Active [facility] Procardi Drug Active [facility] Procardi Drug Active [facility] Procardi Drug Active [facility] Procardi Drug Active [facility] Procardi Drug Active [facility] Procardi Drug Active [facility] Procardi Drug Active [facility] Procardi Drug Active [facility] Procardi Drug Active [facility] Procardi Drug Active [facility] Procardi Drug Active [facility] Procardi Drug Active [facility] Procardi Drug Active [facility] Procardi Drug Active [facility] Procardi Drug Active [facility] Procardi Drug Active [facility] Procardi Drug Active [facility] Family History Family Member Diagnosis Comments Start Date Stop Date Source Natural brother Cancer [facility] Natural brother Bipolar disorder [facility] Natural brother Hypertension [facility] Natural father Diabetes [facility] Natural father Hyperlipidemia [facility] Natural father Hypertension [facility] Natural father Alcohol abuse [facility] Natural father Arthritis [facility] Natural father Diabetes [facility] Natural father Drug abuse [facility] Natural father Heart disease [facility] Natural father Hyperlipidemia [facility] Natural father Hypertension [facility] Natural mother Cancer [facility] Natural mother Diabetes [facility] Natural mother Heart attack [facility] Natural mother Hyperlipidemia [facility] Natural mother Hypertension [facility] Natural mother Arthritis [facility] Natural mother Diabetes [facility] Natural mother Hearing loss [facility] Natural mother Heart disease [facility] Natural mother Hyperlipidemia [facility] Natural mother Hypertension [facility] Natural mother Stroke [facility] Social History Social Habit Start Date Stop Date Quantity Comments Source Gender identity 2022-04-22 Identifies as Method ist 20:33:51 female gender Hospital (finding) History [facility] Confucianist Alcohol Std Drinks Hospit al History of tobacco Cigarette Smoker [facility] use [facility] Sexual orientation [facility] Alcohol intake 2023-02-08 2023-02-08 Ex-drinker [facility] 00:00:00 00:00:00 (finding) [facility] Center History of Social 2023-02-08 2023-02-[address] [facility] function 00:00:00 00:00:00 [facility] Cigarettes smoked 2023-02-04 2023-02-[address] [facility] current (pack per 00:00:00 00:00:00 Medical Center day) - Reported Cigarette 2023-02-04 2023-02-[address] [facility] pack-years 00:00:00 00:00:00 [facility] Center Tobacco use and 2023-02-04 2023-02-04 [address] [facility] exposure 00:00:00 00:00:00 non-user [facility] Alcohol Comment 2023-02-04 2023-02-04 quit: [address] [facility] [facility]na kes 00:00:00 00:00:00 Medical Center History SDLA Social 2022-05-11 2022-05-11 3 [facility] Phone 00:00:00 00:00:00 Hospita l History SDLA Social 2022-05-11 2022-05-11 5 [facility] Get 00:00:00 00:00:00 Hospital Together History SDLA Social 2022-05-11 2022-05-11 1 [facility] Moravian 00:00:00 00:00:00 Hospit al History SDOH Social 2022-05-11 2022-05-11 2 [facility] 00:00:00 00:00:00 Hospital Membership History SDLA Social 2022-05-11 2022-05-11 1 [facility] 00:00:00 00:00:00 Hospital Meetings History SDOH Social 2022-05-11 2022-05-11 4 [facility] Living 00:00:00 00:00:00 Hospit al History SDOH Food 2022-05-11 2022-05-[address] Worry 00:00:00 00:00:00 Hospital History SDOH Food 2022-05-11 2022-05-[address] Scarcity 00:00:00 00:00:00 Hospital History SDLA 2022-05-11 2022-05-11 1 Confucianist Transport Med 00:00:00 00:00:00 Hospital History [facility] 2022-05-11 2022-05-11 1 Confucianist Transport Non-Med 00:00:00 00:00:00 Hospita l History [facility] 2020-04-24 2020-04-24 1 Confucianist Alcohol Frequency 00:00:00 00:00:00 Hospita l History [facility] 2020-04-24 2020-04-24 1 Confucianist Alcohol Binge 00:00:00 00:00:00 Hospital Sex Ass[birth year] At [birth year] [facility] 00:00:00 00:00:00 [facility] Center Smoking Status Start Date Stop Date Source Smokes tobacco daily 2023-02-04 00:00:00 [facility] Ex-smoker 2022-05-20 00:00:00 2022-05-20 [facility]:00:[facility] Medications Ordered Filled Start Stop Current Ordering Indication Dosage Frequency Signature Comments Components Source Medication Medication Date Date Medication? Clinician (SIG) Name Name aspirin 81 2022-03- Yes 81mg QD Take [address] [facility] MG EC - 12-27 tablet (81 [facility] tablet 00:00: 23:59 mg total) Medic al 00 :00 by mouth Center daily for 30 days. levothyroxi 2022-03 Yes 25ug Take [address] [facility] ne 1-26 tablet (25 [facility] (SYNTHROID, 18:22: mcg total) Medical LEVOTHROID) 48 by mouth Cent er 25 MCG Every tablet morning on an empty stomach. pantoprazol 2022-03 Yes 40mg QD Take [address] [facility] e 1-26 tablet (40 [facility] (PROTONIX) 18:22: mg total) Me dical 40 MG 48 by mouth Center tablet daily. clopidogreL 2022-03 No 75mg QD Take [address] (PLAVIX) 75 04-08 tablet (75 L ukes mg tablet 15:43: 00:00 mg total) Me dical 51 :00 by mouth Center daily. metoprolol 2022-03 No 25mg QD Take [address] succinate 04-08 tablet (25 Yash es (TOPROL-XL) 15:43: 00:00 mg total) Medical 25 MG 24 hr 51 :00 by mouth Cent er tablet daily. rosuvastati 2022-03 No 20mg QD Take [address] [facility] n (CRESTOR) 04-08 tablet (20 L ukes 20 MG 15:43: 00:00 mg total) Medica l tablet 51 :00 by mouth Center daily. lisinopriL 2022-03 No 40mg QD Take [address] [facility] (PRINIVIL,Z 04-08 tablet (40 L ukes ESTRIL) 40 15:41: 00:00 mg total) M edical MG tablet 49 :00 by mouth Center daily. polyethylen 2022-03 No 17g QD Take [address] [facility] e glycol 04-08 by mouth [facility]ukes (GLYCOLAX) 15:41: 00:00 daily. Medi [place] 17 gram 49 :00 Center packet acarbose 2022-03 No 25mg Take [address] [facility] [facility] (PRECOSE) 04-08 tablet (25 Yash es 25 MG 15:41: 00:00 mg total) Medica l tablet 48 :00 by mouth 3 Center (three) times daily with meals. bisacodyL 2022-03 No 5mg Take 1 [facility] t (DULCOLAX) 04-08 tablet (5 Yash es 5 mg EC 15:41: 00:00 mg total) Medi [place] tablet 48 :00 by mouth Center daily as needed for Constipati on. fluticasone 2022-03- Yes 1{puff} Inhale [address] propion-meeta 04-08 11-25 puff by Luke s meteroL 00:00: 23:59 mouth via Medi [place] (Advair 00 :00 inhaler Center Diskus) every 12 100-50 (twelve) mcg/dose hours. diskus inhaler ferrous 2022-03- Yes 325mg Take [address] [facility] [facility] sulfate 325 04-08 tablet [facility] (65 FE) MG 00:00: 23:59 (325 mg Med ical tablet 00 :00 total) by Center mouth every other day for 30 days. cyanocobala 2022-03- Yes 1000ug QD Take [address] min 04-08 tablet [facility] (VITAMIN 00:00: 23:59 (1,000 mcg Me dical B-12) 1000 00 :00 total) by Cent er MCG tablet mouth daily for 30 days. empaglifloz 2022-03- Yes 10mg QD Take [address] [facility] [facility] in 04-08 tablet (10 [facility] (Jardiance) 00:00: 23:59 mg total) Medical 10 mg 00 :00 by mouth Center tablet daily for 30 days. losartan 2022-03- Yes 25mg QD Take [address] (COZAAR) 25 04-08 tablet (25 L ukes MG tablet 00:00: 23:59 mg total) Me dical 00 :00 by mouth Center daily for 30 days. clopidogreL 2022-03- Yes 75mg QD Take [address] (PLAVIX) 75 04-08 tablet (75 L ukes mg tablet 00:00: 23:59 mg total) Me dical 00 :00 by mouth Center daily for 30 days. metoprolol 2022-03- Yes 25mg QD Take [address] succinate 04-08 tablet (25 Yash es (TOPROL-XL) 00:00: 23:59 mg total) Medical 25 MG 24 hr 00 :00 by mouth Cent er tablet daily for 30 days. rosuvastati 2022-03- Yes 20mg QD Take [address] n (CRESTOR) 04-08- tablet (20 L ukes 20 MG 00:00: 23:59 mg total) Medica l tablet 00 :00 by mouth Center daily for 30 days. metoprolol Yes 25mg Q.5D Take 1 Metho [...] tablet 05 by mouth l daily. rosuvastati 3-0 Yes 20mg QD Take 1 Meth xavier n (CRESTOR) 3-13 tablet (20 st 20 mg 14:25: mg total) Hospita tablet 05 by mouth l daily. pantoprazol 3-0 2023- No 40mg Q.5D Take 1 Met hodi e 3-13 04-13 tablet (40 st (PROTONIX) 00:00: 04:59 mg total) H ospita 40 MG EC 00 :00 by mouth 2 l tablet (two) times a day for 30 days. pantoprazol 3-0 2023- No 40mg Q.5D Take 1 Met hodi e 3-13 04-13 tablet (40 st (PROTONIX) 00:00: 04:59 mg total) H ospita 40 MG EC 00 :00 by mouth 2 l tablet (two) times a day for 30 days. pantoprazol 3-0 2023- No 40mg Q.5D Take 1 Met hodi e 3-13 04-13 tablet (40 st (PROTONIX) 00:00: 04:59 mg total) H ospita 40 MG EC 00 :00 by mouth 2 l tablet (two) times a day for 30 days. pantoprazol 3-0 2023- No 40mg Q.5D Take 1 Met hodi e 3-13 04-13 tablet (40 st (PROTONIX) 00:00: 04:59 mg total) H ospita 40 MG EC 00 :00 by mouth 2 l tablet (two) times a day for 30 days. pantoprazol 3-0 2023- No 40mg Q.5D Take 1 Met [...] QD Take 17 g Methodi e glycol 3-[address] (Miralax) 00:00: 04:59 daily for Ho spita 17 gram 00 :00 30 days. l packet polyethylen 3-0 2023- No 17g QD Take 17 g Methodi e glycol 3- 04-[address] (Miralax) 00:00: 04:59 daily for Ho spita 17 gram 00 :00 30 days. l packet polyethylen 3-0 2023- No 17g QD Take 17 g Methodi e glycol 3- 04-[address] (Miralax) 00:00: 04:59 daily for Ho spita 17 gram 00 :00 30 days. l packet polyethylen 3-0 2023- No 17g QD Take 17 g Methodi e glycol 3- 04-[address] (Miralax) 00:00: 04:59 daily for Ho spita 17 gram 00 :00 30 days. l packet polyethylen 3-0 2023- No 17g QD Take 17 g Methodi e glycol 3- 04-[address] (Miralax) 00:00: 04:59 daily for Ho spita 17 gram 00 :00 30 days. l packet polyethylen 3-0 2023- No 17g QD Take 17 g Methodi e glycol 3- 04-[address] (Miralax) 00:00: 04:59 daily for Ho spita 17 gram 00 :00 30 days. l packet polyethylen 3-0 3- No 119g Take 119 g Methodi e glycol 3-07 03-[address] (GLYCOLAX) 00:00: 00:00 take as Hos irena 17 00 :00 directed l gram/dose (take as powder instructed for bowel prep). polyethylen 3-0 2023- No 119g Take 119 g Methodi e glycol 3-07 03-[address] (GLYCOLAX) 00:00: 00:00 take as Hos irena 17 00 :00 directed l gram/dose (take as powder instructed for bowel prep). polyethylen 2023-0 2023- No 119g Take 119 g Methodi e glycol 3-07 03-[address] (GLYCOLAX) 00:00: 00:00 take as Hos irena 17 00 :00 directed l gram/dose (take as powder instructed for bowel prep). polyethylen 2023-0 2023- No 119g Take 119 g Methodi e glycol 05-18-[address] (GLYCOLAX) 00:00: 00:00 take as Hos irena 17 00 :00 directed l gram/dose (take as powder instructed for bowel prep). polyethylen 2022-0 2022- No 119g Take 119 g Methodi e glycol 05-18-[address] (GLYCOLAX) 00:00: 00:00 take as Hos irena 17 00 :00 directed l gram/dose (take as powder instructed for bowel prep). polyethylen 2022-0 2022- No 119g Take 119 g Methodi e glycol 05-18- by mouth st (GLYCOLAX) 00:00: 00:00 take as Hos irena 17 00 :00 directed l gram/dose (take as powder instructed for bowel prep). aspirin 2022-0 2022- No 81mg QD Take 81 mg Met hodi (ECOTRIN) 2-20 02-[address] 81 MG 10:01: 00:00 daily. Hospita enteric 05 :00 l coated tablet aspirin 2022-0 3- No 81mg QD Take 81 mg Met hodi (ECOTRIN) 2-20 02-[address] 81 MG 10:01: 00:00 daily. Hospita enteric 05 :00 l coated tablet aspirin 2022-0 2022- No 81mg QD Take 81 mg Met hodi (ECOTRIN) 2-20 02-[address] 81 MG 10:01: 00:00 daily. Hospita enteric 05 :00 l coated tablet aspirin 2022-0 3- No 81mg QD Take 81 mg Met hodi (ECOTRIN) 2-20 02-[address] 81 MG 10:01: 00:00 daily. Hospita enteric 05 :00 l coated tablet aspirin 2022-0 3- No 81mg QD Take 81 mg Met hodi (ECOTRIN) 2-20 02-[address] 81 MG 10:01: 00:00 daily. Hospita enteric 05 :00 l coated tablet aspirin 2022-0 3- No 81mg QD Take 81 mg Met hodi (ECOTRIN) 2-20 02-[address] 81 MG 10:01: 00:00 daily. Hospita enteric 05 :00 l coated tablet sulfamethox 2022-0 2022- No [id number] 1{tbl} Q.5D Take 1 Methodi azole-trime 2-20 - tablet by st thoprim 00:00: 05:59 mouth 2 Hospit a (BACTRIM 00 :00 (two) l DS) 800-160 times a mg per day for 5 tablet days. sulfamethox 2022- No [id number] 1{tbl} Q.5D Take 1 Methodi azole-trime 2-20 - tablet by st thoprim 00:00: 05:59 mouth 2 Hospit a (BACTRIM 00 :00 (two) l DS) 800-160 times a mg per day for 5 tablet days. sulfamethox 2022- No [id number] 1{tbl} Q.5D Take 1 Methodi azole-trime 2-20 - tablet by st thoprim 00:00: 05:59 mouth 2 Hospit a (BACTRIM 00 :00 (two) l DS) 800-160 times a mg per day for 5 tablet days. sulfamethox 2022- No [id number] 1{tbl} Q.5D Take 1 Methodi azole-trime 2-20 - tablet by st thoprim 00:00: 05:59 mouth 2 Hospit a (BACTRIM 00 :00 (two) l DS) 800-160 times a mg per day for 5 tablet days. sulfamethox 2022- No [id number] 1{tbl} Q.5D Take 1 Methodi azole-trime 2-20 - tablet by st thoprim 00:00: 05:59 mouth 2 Hospit a (BACTRIM 00 :00 (two) l DS) 800-160 times a mg per day for 5 tablet days. sulfamethox 2022- No [id number] 1{tbl} Q.5D Take 1 Methodi azole-trime 2-20 - tablet by [facility] thoprim 00:00: 05:59 mouth 2 Hospit a (BACTRIM 00 :00 (two) l DS) 800-160 times a mg per day for 5 tablet days. sulfamethox 2022- No [id number] 1{tbl} Q.5D Take 1 Methodi azole-trime 04-21- tablet by st thoprim 00:00: 00:00 mouth 2 Hospit a (BACTRIM 00 :00 (two) l DS) 800-160 times a mg per day for 5 tablet days. sulfamethox 2022- No [id number] 1{tbl} Q.5D Take 1 Methodi azole-trime 04-21-[address] thoprim 00:00: 00:00 mouth 2 Hospit a (BACTRIM 00 :00 (two) l DS) 800-160 times a mg per day for 5 tablet days. sulfamethox 2022- No [id number] 1{tbl} Q.5D Take 1 Methodi azole-trime 04-21- tablet by st thoprim 00:00: 00:00 mouth 2 Hospit a (BACTRIM 00 :00 (two) l DS) 800-160 times a mg per day for 5 tablet days. sulfamethox 2022- No [id number] 1{tbl} Q.5D Take 1 Methodi azole-trime 04-21-[address] thoprim 00:00: 00:00 mouth 2 Hospit a (BACTRIM 00 :00 (two) l DS) 800-160 times a mg per day for 5 tablet days. sulfamethox 2022- No [id number] 1{tbl} Q.5D Take 1 Methodi azole-trime 04-21-[address] thoprim 00:00: 00:00 mouth 2 Hospit a (BACTRIM 00 :00 (two) l DS) 800-160 times a mg per day for 5 tablet days. sulfamethox 2022- No [id number] 1{tbl} Q.5D Take 1 Methodi azole-trime 04-21-[address] thoprim 00:00: 00:00 mouth 2 Hospit a (BACTRIM 00 :00 (two) l DS) 800-160 times a mg per day for 5 tablet days. predniSONE 2-0 2021- No [id number] 20mg Q.5D Take 1 Methodi (DELTASONE) 7-21 07-27 tablet (20 s t 20 mg 00:00: 04:59 mg total) Hospit a tablet 00 :00 by mouth 2 l (two) times a day for 5 days. predniSONE 2021-2021- No [id number] 20mg Q.5D Take 1 Methodi (DELTASONE) 10-01-27 tablet (20 s t 20 mg 00:00: 04:59 mg total) Hospit a tablet 00 :00 by mouth 2 l (two) times a day for 5 days. ondansetron 2021-2022- No 4mg Q8H Take 1 [...] as needed for nausea or vomiting. varicella-z 2021- No [id number] .5mL Inject 0.5 Methodi amanda 09-10- mL into st [id number], 00:00: 04:59 the Hospita PF, 00 :00 shoulder, l (Shingrix, thigh, or PF,) 50 buttocks mcg/0.5 mL once for 1 suspension dose. for reconstitut ion IM injection varicella-z 2021- No [id number] .5mL Inject 0.5 Methodi amanda 09-10- mL into st [id number]-AS01B, 00:00: 04:59 the Hospita PF, 00 :00 shoulder, l (Shingrix, thigh, or PF,) 50 buttocks mcg/0.5 mL once for 1 suspension dose. for reconstitut ion IM injection metoprolol 2021- No 25mg Q.5D Take 25 mg Methodi tartrate 07-[address] (LOPRESSOR) 13:22: 00:00 (two) Hosp noreen 25 mg 59 :00 times a l tablet day. metoprolol 2021- No [id number] 25mg Q.5D Take 1 Methodi tartrate -30 10-18 tablet (25 st (LOPRESSOR) 00:00: 04:59 mg total) Hospita 25 mg 00 :00 by mouth 2 l tablet (two) times a day for 90 days. metoprolol 2021- No [id number] 25mg Q.5D Take 1 Methodi tartrate 5-19 08-18 tablet (25 st (LOPRESSOR) 00:00: 04:59 mg total) Hospita 25 mg 00 :00 by mouth 2 l tablet (two) times a day for 90 days. albuterol 2022- No [id number] INHALE THE Methodi (ACCUNEB) 04-01 02-[address] 1.25 mg/3 00:00: 00:00 OF 1 VIAL Ho spita mL 00 :00 VIA l nebulizer NEBULIZER solution EVERY 6 (SIX) HOURS NEEDED FOR WHEEZING. albuterol 2022- No [id number] INHALE THE Methodi (ACCUNEB) 04-01-[address] 1.25 mg/3 00:00: 00:00 OF 1 VIAL Ho spita mL 00 :00 VIA l nebulizer NEBULIZER solution EVERY 6 (SIX) HOURS NEEDED FOR WHEEZING. albuterol 2022- No [id number] INHALE THE Methodi (ACCUNEB) 04-01-[address] 1.25 mg/3 00:00: 00:00 OF 1 VIAL Ho spita mL 00 :00 VIA l nebulizer NEBULIZER solution EVERY 6 (SIX) HOURS NEEDED FOR WHEEZING. albuterol 2022- No [id number] INHALE THE Methodi (ACCUNEB) 04-01-[address] 1.25 mg/3 00:00: 00:00 OF 1 VIAL Ho spita mL 00 :00 VIA l nebulizer NEBULIZER solution EVERY 6 (SIX) HOURS NEEDED FOR WHEEZING. albuterol 2022- No [id number] INHALE THE Methodi (ACCUNEB) 04-01-[address] 1.25 mg/3 00:00: 00:00 OF 1 VIAL Ho spita mL 00 :00 VIA l nebulizer NEBULIZER solution EVERY 6 (SIX) HOURS NEEDED FOR WHEEZING. albuterol 2022- No [id number] INHALE THE Methodi (ACCUNEB) 04-01-[address] 1.25 mg/3 00:00: 00:00 OF 1 VIAL Ho spita mL 00 :00 VIA l nebulizer NEBULIZER solution EVERY 6 (SIX) HOURS NEEDED FOR WHEEZING. acarbose 2020-03 Yes [id number] TAKE 1 Me thodi (PRECOSE) 2-[address] 25 MG 00:00: THREE Hospita tablet 00 TIMES l DAILY WITH MEALS acarbose 2020-03 Yes [id number] TAKE 1 Me thodi (PRECOSE) 2-[address] 25 MG 00:00: THREE Hospita tablet 00 TIMES l DAILY WITH MEALS acarbose 2020-03 Yes [id number] TAKE 1 Me thodi (PRECOSE) 2-[address] 25 MG 00:00: THREE Hospita tablet 00 TIMES l DAILY WITH MEALS acarbose 2020-03 Yes [id number] TAKE 1 Me thodi (PRECOSE) 2-[address] 25 MG 00:00: THREE Hospita tablet 00 TIMES l DAILY WITH MEALS acarbose 2020-03 Yes [id number] TAKE 1 Me thodi (PRECOSE) 2-[address] 25 MG 00:00: THREE Hospita tablet 00 TIMES l DAILY WITH MEALS acarbose 2020-03 Yes [id number] TAKE 1 Me thodi (PRECOSE) 2-[address] 25 MG 00:00: THREE Hospita tablet 00 TIMES l DAILY WITH MEALS DULoxetine 2020-03- No [id number] TAKE 1 [facility] (CYMBALTA) 03-16 07 CAPSULE(30 st 30 MG 00:00: 00:00 MG) BY [facility] capsule 00 :00 MOUTH l DAILY DULoxetine 2020-03- No [id number] TAKE 1 [facility] (CYMBALTA) 03-16 07 CAPSULE(30 st 30 MG 00:00: 00:00 MG) BY [facility] capsule 00 :00 MOUTH l DAILY levothyroxi 2020-03 Yes [id number] TAKE 1 [facility] ne 0-19 TABLET(25 st (SYNTHROID) 00:00: MCG) BY [facility] 25 mcg 00 MOUTH l tablet DAILY levothyroxi 2020-03 Yes [id number] TAKE 1 [facility] 0-19 TABLET(25 st (SYNTHROID) 00:00: MCG) BY [facility] 25 mcg 00 MOUTH l tablet DAILY levothyroxi 2020-03 Yes [id number] TAKE 1 [facility] 0-19 TABLET(25 st (SYNTHROID) 00:00: MCG) BY [facility] 25 mcg 00 MOUTH l tablet DAILY levothyroxi 2020-03 Yes [id number] TAKE 1 [facility] 0-19 TABLET(25 st (SYNTHROID) 00:00: MCG) BY [facility] 25 mcg 00 MOUTH l tablet DAILY levothyroxi 2020-03 Yes [id number] TAKE 1 [facility] 0-19 TABLET(25 st (SYNTHROID) 00:00: MCG) BY [facility] 25 mcg 00 MOUTH l tablet DAILY levothyroxi 2020-03 Yes [id number] TAKE 1 [facility] 0-19 TABLET(25 st (SYNTHROID) 00:00: MCG) BY [facility] 25 mcg 00 MOUTH l tablet DAILY nebulizers 3- No For [facility] misc 7-18 -[address] 00:00: 00:00 use Hospita 00 :00 l nebulizers 2020-0 3- No For [facility] 7-[address] 00:00: 00:00 [facility] 00 :00 l nebulizers 2020-0 3- No For [facility] 7-[address] 00:00: 00:00 use [facility] 00 :00 l nebulizers 2020-0 3- No For [facility] 7-[address] 00:00: 00:00 use [facility] 00 :00 l nebulizers 2020-0 3- No For [facility] misc 7-[address] 00:00: 00:00 use [facility] 00 :00 l nebulizers 2020-0 3- No For [facility] misc 7-18 05-[address] 00:00: 00:00 use [facility] 00 :00 l lisinopriL 2021-0 Yes 40mg QD Take 1 [...] Immunizations Ordered Filled Immunization Date Status Comments [facility] e Immunization Name Name Pneumococcal 2021-09-10 Completed [facility] 20-valent Conjugate 00:00:00 [facility] Vaccine Pneumococcal 2021-09-10 Completed [facility] 20-valent Conjugate 00:00:00 [facility] Vaccine Pneumococcal 2021-09-10 Completed [facility] 20-valent Conjugate 00:00:00 [facility] Vaccine PFIZER COVID-19 2021-02-19 Completed [facility] MRNA VACCINATION 00:00:00 [facility] PFIZER COVID-19 2021-02-19 Completed [facility] MRNA VACCINATION 00:00:00 [facility] PFIZER COVID-19 2021-02-19 Completed [facility] MRNA VACCINATION 00:00:00 [facility] PFIZER COVID-19 2020-12-16 Completed [facility] MRNA VACCINATION 00:00:00 [facility] PFIZER COVID-19 2020-12-16 Completed [facility] MRNA VACCINATION 00:00:00 [facility] PFIZER COVID-19 2020-12-16 Completed [facility] 00:00:00 Hospital PFIZER COVID-19 2020-10-22 Completed [facility] VACC[facility] 00:00:00 Hospital PFIZER COVID-19 2020-10-22 Completed [facility] VACC[facility]ATION 00:00:00 Hospital PFIZER COVID-19 2020-10-22 Completed [facility] 00:00:00 Hospital FLUZONE HIGH-DOSE 2020-04-[address] PF 00:00:00 Hospital FLUZONE HIGH-DOSE 2020-04-[address] [facility] 00:00:00 Hospital FLUZONE HIGH-DOSE 2020-04-[address] [facility] 00:00:00 Hospital FLUZONE HIGH-DOSE Unknown Completed [facility] Hospital PFIZER COVID-19 Unknown Completed [facility] PFIZER COVID-19 Unknown Completed [facility] PFIZER COVID-19 Unknown Completed [facility] Pneumococcal Unknown Completed [facility] 20-valent Conjugate [facility] Vaccine FLUZONE HIGH-DOSE Unknown Completed [facility] PFIZER COVID-19 Unknown Completed [facility] PFIZER COVID-19 Unknown Completed [facility] PFIZER COVID-19 Unknown Completed [facility] Pneumococcal Unknown Completed [facility] 20-valent Conjugate [facility] Vaccine FLUZONE HIGH-DOSE Unknown Completed [facility] PFIZER COVID-19 Unknown Completed [facility] PFIZER COVID-19 Unknown Completed [facility] PFIZER COVID-19 Unknown Completed [facility] Pneumococcal Unknown Completed [facility] 20-valent Conjugate [facility] Vaccine Vital Signs [...] Measured Weight Dosing 2021-04-02 12:07:45 65.30 kg HEIGHT 2023-02-04 12:15:00 157.5 cm WEIGHT 2023-02-04 12:15:00 63 kg HEIGHT 2023-02-04 12:15:00 157.5 cm WEIGHT 2023-02-04 12:15:00 63 kg HEIGHT 2023-02-04 12:15:00 157.5 cm WEIGHT 2023-02-04 12:15:00 63 kg Weight Dosing 2021-04-02 12:10:49 64.00 kg Weight Dosing 2021-04-02 12:10:43 64.00 kg Height/Length 2019-10-04 15:21:21 Measured Height/Length 2019-10-04 06:19:50 Measured Weight Dosing 2019-10-04 06:19:50 Weight Dosing 2021-04-02 11:55:59 67.20 kg Weight Dosing 2021-04-02 11:49:34 67.20 kg Weight Dosing 2021-04-02 11:49:25 67.20 kg Weight Dosing 2021-04-02 11:49:22 67.20 kg Weight Dosing 2021-04-02 11:49:19 67.20 kg Weight Dosing 2021-04-02 11:49:16 67.20 kg Systolic blood 2023-02-06 15:00:00 127 mm[Hg] [facility] Diastolic blood 2023-02-06 15:00:00 80 mm[Hg] [facility] Heart rate 2023-02-06 15:00:00 74 /min [facility] Body temperature 2023-02-06 15:00:00 36.89 Bijal [facility] Respiratory rate 2023-02-06 15:00:00 19 /min [facility] Oxygen saturation in 2023-02-06 15:00:00 98 /min [facility] Arterial blood by Medical Ce [facility]ter Pulse oximetry Body height 2023-02-04 12:15:00 157.5 cm [facility] Body weight 2023-02-04 12:15:00 63 kg [facility] BMI 2023-02-04 12:15:00 25.40 kg/m2 [facility] Heart rate 2022-05-24 13:30:00 78 /min [facility] Systolic blood 2022-05-24 12:27:52 139 mm[Hg] [facility] pressure Diastolic blood 2022-05-24 12:27:52 72 mm[Hg] [facility] pressure Body temperature 2022-05-24 12:27:52 36.44 Bijal [facility] Respiratory rate 2022-05-24 12:27:52 18 /min [facility] Oxygen saturation in 2022-05-24 12:27:52 98 /min [facility] Arterial blood by Pulse oximetry Body weight 2022-05-24 10:37:00 58.514 kg [facility] BMI 2022-05-24 10:37:00 23.59 kg/m2 [facility] Body height 2022-05-22 13:39:00 157.5 cm [facility] Procedures Procedure Date / Time Performing Source Performed Clinician BASIC METABOLIC PANEL 2023-02-06 Rasheeda Ordonez [facility] 15:15:00 [facility] CBC (HEMOGRAM ONLY) 2023-02-06 Rasheeda Ordonez [facility] 15:14:00 [facility] ECHO W CONTRAST & DOPPLER 2023-02-[address] [facility] 12:02:32 [facility] POCT-GLUCOSE METER 2023-02-[address] [facility] 11:52:00 [facility] OSMOLALITY, URINE 2023-02-[address] [facility] 11:18:00 [facility] MAGNESIUM 2023-02-[address] [facility] 09:26:00 [facility] PHOSPHORUS 2023-02-[address] [facility] 09:26:00 [facility] ALBUMIN 2023-02-[address] [facility] 09:26:00 [facility] BASIC METABOLIC PANEL 2023-02-[address] [facility] 09:26:00 [facility] POCT-GLUCOSE METER 2023-02-[address] [facility] 06:26:00 [facility] BASIC METABOLIC PANEL 2023-02-06 Gudenthomas[facility] Kannan [facility] 04:23:00 [facility] CBC (HEMOGRAM ONLY) 2023-02-[address] [facility] 04:23:00 [facility] POCT-GLUCOSE METER 2023-02-[address] [facility] 21:04:00 [facility] POCT-ACT 2023-02-[address] [facility] 16:32:00 [facility] POCT-ACT 2023-02-[address] [facility] 16:14:00 [facility] POCT-ACT 2023-02-[address] [facility] 15:55:00 [facility] PERCUTANEOUS CORONARY 2023-02-[address] [facility] [facility] INTERVENTION, ARTERY 15:24:[address] [facility] [address] ECG 12-LEAD 2023-02-05 Unknown, Hl7 [facility] 14:52:[address] [facility] ECG 12-LEAD 2023-02-05 Unknown, Hl7 [facility] 14:52:[address] [facility] HIGH SENSITIVITY TROPONIN I 2023-02-05 Mery [facility]heeda [facility] 14:25:00 [facility] ECG 12-LEAD 2023-02-05 Unknown, Hl7 [facility] 14:05:[address] [facility] ECG 12-LEAD 2023-02-05 Unknown, Hl7 [facility] 14:05:[address] [facility] ECG 12-LEAD 2023-02-05 Unknown, Hl7 [facility] 14:04:[address] [facility] ECG 12-LEAD 2023-02-05 Unknown, Hl7 [facility] 14:04:[address] [facility] APTT 2023-02-[address] [facility] 12:51:00 [facility] POCT-GLUCOSE METER 2023-02-[address] [facility] 12:01:00 [facility] POCT-GLUCOSE METER 2023-02-05 Petzane Rasheeda M [facility] 06:40:00 [facility] BASIC METABOLIC PANEL 2023-02-05 Gudenthomas, Kannan [facility] 06:09:00 [facility] CBC (HEMOGRAM ONLY) 2023-02-05 Allidenthomas, Kannan [facility] 06:09:00 [facility] LIPID PANEL 2023-02-05 Haskylie, Jimbo Ali [facility] 06:09:00 [facility] HEMOGLOBIN A1C 2023-02-05 Haskylie, Jimbo Ali [facility] 06:09:00 [facility] APTT 2023-02-05 Hinkamp, Bryant [facility] 06:09:00 [facility] MAGNESIUM 2023-02-05 PetAlexia degroota M [facility] 06:09:00 [facility] APTT 2023-02-04 Hinkamp, Bryant [facility] 23:45:00 [facility] POCT-GLUCOSE METER 2023-02-04 Hasan, Jimbo Ali [facility] 21:45:00 [facility] POCT-GLUCOSE METER 2023-02-04 Hasan, Jimbo Ali [facility] 18:26:00 [facility] APTT 2023-02-04 Hinkamp, Bryant [facility] 17:23:00 [facility] CBC (HEMOGRAM ONLY) 2023-02-04 Hasan, Jimbo Ali [facility] 17:23:00 [facility] BASIC METABOLIC PANEL 2023-02-04 Hasan, Jimbo Ali [facility] 17:23:00 [facility] ECG 12-LEAD 2023-02-04 Hinkamp, Bryant [facility] 14:47:10 [facility] ECG 12-LEAD 2023-02-04 Unknown, Hl7 [facility] 14:47:[address] [facility] ECG 12-LEAD 2023-02-04 Unknown, Hl7 [facility] 14:46:[address] [facility] ECG 12-LEAD 2023-02-04 Unknown, Hl7 [facility] 14:46:[address] [facility] POCT-ACT 2023-02-[address] [facility] 12:55:00 [facility] PERCUTANEOUS CORONARY 2023-02-[address] [facility] INTERVENTION, ARTERY 12:10:[address] [facility] [address] EKG-SCANNED 2023-02-04 Provider, Default [facility] 00:00:00 Scanning [facility] VASCULAR DIAGRAM -SCAN 2023-02-04 Provider, Default [facility] 00:00:00 Scanning [facility] CARDIAC CATH REPORT - SCAN 2023-02-04 Provider, Default [facility] 00:00:00 [facility] POC GLUCOSE 2022-05-24 Jamia Meehan 13:33:00 [facility] BASIC METABOLIC PANEL 2022-05-24 Jamia Meehan 10:10:00 [facility] CBC WITH PLATELET AND DIFFERENTIAL 2022-05-24 Elvia Meehan 10:10:00 [facility] MAGNESIUM LEVEL 2022-05-24 Jamia Meehan 10:10:00 [facility] ESTIMATED GFR 2022-05-24 Jamia Meehan 10:10:00 [facility] POC GLUCOSE 2022-05-24 Jamia Meehan 01:56:00 [facility] POC GLUCOSE 2022-05-23 Jamia Meehan 16:39:00 [facility] POC GLUCOSE 2022-05-23 Jamia Meehan 13:03:00 [facility] BASIC METABOLIC PANEL 2022-05-23 Mari Estrella 09:18:00 Hospital CBC WITH PLATELET AND DIFFERENTIAL 2022-05-23 Mari Estrella 09:18:00 Hospital ESTIMATED GFR 2022-05-23 Mari Estrella 09:18:00 Hospital POC GLUCOSE 2022-05-23 Jamia Meehan 02:34:00 [facility] POC GLUCOSE 2022-05-22 Jamia Meehan 23:05:00 [facility] POC GLUCOSE 2022-05-22 Jamia Meehan 16:54:00 [facility] ESOPHAGOGASTRODUODENOSCOPY (EGD) 2022-05-22 Farfan, Jose Daniel [facility] 14:12:00 Hospital COLONOSCOPY 2022-05-22 Jose Farfan Daniel [facility] 14:12:00 Hospital SURGICAL PATHOLOGY REQUEST 2022-05-22 Jamia Meehan dist 13:21:00 [facility] BASIC METABOLIC PANEL 2022-05-22 Mari Estrella [facility] 12:00:00 Hospital CBC WITH PLATELET AND DIFFERENTIAL 2022-05-22 Mari Estrella [facility] 12:00:00 Hospital LIPID PANEL 2022-05-22 Mari Estrella [facility] 12:00:00 Hospital HEMOGLOBIN A1C 2022-05-22 Mari Estrella My [facility] 12:00:00 Hospital VITAMIN B12 LEVEL 2022-05-22 Mari Estrella [facility] 12:00:00 Hospital CERULOPLASMIN LEVEL 2022-05-22 Mari Estrella [facility] 12:00:00 Hospital ESTIMATED GFR 2022-05-22 Mari Estrella [facility] 12:00:00 Hospital COPPER LEVEL, SERUM 2022-05-22 Mari Estrella [facility] 11:05:00 Hospital POC GLUCOSE 2022-05-22 Mari Estrella [facility] 04:13:00 Hospital US HEPATIC 2022-05-22 Mari Estrella [facility] 02:50:00 Hospital POC GLUCOSE 2022-05-21 Mari Estrella [facility] 22:18:00 Hospital POC GLUCOSE 2022-05-21 Mari Estrella [facility] 19:38:00 Hospital POC GLUCOSE 2022-05-21 Mari Estrella My [facility] 19:13:00 Hospital POC GLUCOSE 2022-05-21 Mari Estrella [facility] 17:59:00 Hospital POC GLUCOSE 2022-05-21 Mari Estrella [facility] 13:56:00 Hospital CBC WITH PLATELET AND DIFFERENTIAL 2022-05-21 Sarai Garcia [facility] 09:58:00 [facility] COMPREHENSIVE METABOLIC PANEL 2022-05-21 Sarai Garcia thodi 09:58:00 [facility] ESTIMATED GFR 2022-05-21 Sarai Garcia [facility] 09:58:00 [facility] POC GLUCOSE 2022-05-21 Sarai Garcia [facility] 02:44:00 [facility] TROPONIN T 2022-05-21 Sarai Garcia 01:37:00 [facility] TROPONIN T 2022-05-20 Sarai Garcia 23:42:00 [facility] POC GLUCOSE 2022-05-20 Sarai Garcia 23:41:00 [facility] TRANSFUSE RED BLOOD CELLS 2022-05-20 Soledad Arnold [facility] 22:25:[address] [facility] TTE COMPLETE, WO CONTRAST, W 2022-05-20 Sarai Garcia Met [facility]odist DOPPLER ([id number]) 20:24:00 [facility] TRANSFUSE RED BLOOD CELLS 2022-05-20 Soledad Arnold Method [facility] 19:43:[address] [facility] CT ABDOMEN PELVIS W CONTRAST 2022-05-20 Sarai Garcia hodist 19:40:42 [facility] US DUPLEX VENOUS LOWER EXTREMITY 2022-05-20 Soledad Arnold BILATERAL 18:53:[address] [facility] TROPONIN T 2022-05-20 Sarai Garcia 18:20:00 [facility] ABO AND RH CONFIRMATION BY 2022-05-20 Sarai Garciao dist PROTOCOL 18:20:00 [facility] FL CRITICAL CARE ILL/INJURED 2022-05-20 Soledad Arnold hodbrianne PATIENT INIT 30-74 MIN 17:10:[address] [facility] ECG ED PRELIMINARY INTERPRETATION 2022-05-20 Donna Arnold 17:10:[address] [facility] COMPREHENSIVE METABOLIC PANEL 2022-05-20 Sloedad Arnold [facility] 16:35:[address] [facility] CBC WITH PLATELET AND DIFFERENTIAL 2022-05-20 Artemio Arnold 16:35:[address] [facility] PROTHROMBIN TIME WITH INR 2022-05-20 Soledad Arnold ist 16:35:[address] [facility] PARTIAL THROMBOPLASTIN TIME (PTT) 2022-05-20 Donna Arnold 16:35:[address] [facility] TYPE AND SCREEN 2022-05-20 Soledad Arnold 16:35:[address] [facility] ESTIMATED GFR 2022-05-20 Soledad Arnold 16:35:[address] [facility] SMEAR REVIEW 2022-05-20 Soledad Arnold 16:35:[address] [facility] ECG 12-LEAD 2022-05-20 Soledad Arnold 15:57:[address] [facility] PREPARE RBC 2022-05-20 Soledad Arnold 15:35:[address] [facility] TOTAL IRON BINDING CAPACITY 2022-05-18 Naheed Jose Daniel [facility] 15:13:00 Hospital FERRITIN LEVEL 2022-05-18 Naheed Jose Daniel [facility] 15:13:00 Hospital COMPREHENSIVE METABOLIC PANEL 2022-05-18 Jose Farfan Daniel [facility] 15:13:00 Hospital LIPASE LEVEL 2022-05-18 Naheed Jose Daniel [facility] 15:13:00 Hospital CBC WITH PLATELET AND DIFFERENTIAL 2022-05-18 Naheed Jose H aq [facility] 15:13:00 Hospital ESTIMATED GFR 2022-05-18 Naheed Jose Daniel [facility] 15:13:00 Hospital TOTAL IRON BINDING CAPACITY 2022-05-18 Naheed Jose Daniel [facility] 15:13:00 Hospital URINE CULTURE 2022-04-21 Deborah Gomezist 16:01:00 Hospital POC URINALYSIS DIPSTICK 2022-04-21 Deborah Gomez t 15:20:26 [facility] CBC WITH PLATELET AND DIFFERENTIAL 2022-04-21 Deborah Gomez 15:17:00 Hospital BASIC METABOLIC PANEL 2022-04-21 Deborah Gomez 15:17:00 Hospital MRI LUMBAR SPINE WO CONTRAST 2021-09-23 Margy Snyder hodist 13:20:00 [facility] HEMOGLOBIN A1C 2021-09-10 Deborah Gomez 18:40:00 Hospital HEPATITIS C ANTIBODY 2021-09-10 Deborah Gomez 18:40:00 Hospital MICROALBUMIN / CREATININE URINE 2021-09-10 Deborah Gomez RATIO 18:40:00 Hospital XR LUMBAR SPINE 2 OR 3 VW 2021-08-13 Margy Snyder ist 15:48:39 [facility] CBC WITH PLATELET AND DIFFERENTIAL 2021-07-30 Deborah Gomez 18:32:00 Hospital BASIC METABOLIC PANEL 2021-07-30 Deborah Gomez 18:32:00 [facility] LIPID PANEL 2021-07-30 Deborah Gomez 18:32:00 [facility] Plan of Care Planned Activity Planned Date Details Comments Source Future Scheduled 2024-02-[address] [facility] Test 00:[facility]12+) [code = Tobacco Cessation Counseling and Screening (12+)] Future Scheduled 2023-02-12 Screening for [facility] Test 08:24:31 malignant neoplasm of colon (procedure) [code = 383269022] Future Scheduled 2023-02-12 Screening for [facility] Test 08:24:31 malignant neoplasm of colon (procedure) [code = 770719378] Future Scheduled 2023-02-12 Screening for [facility] Test 08:24:31 malignant neoplasm of colon (procedure) [code = 967209105] Future Scheduled 2023-02-12 SHINGLES VACCINES (1 Met [facility] Test 08:24:31 of 2) [code = SHINGLES VACCINES (1 of 2)] Future Scheduled 2023-02-12 DIABETES: RETINAL EYE [facility] Test 08:24:31 EXAM [code = DIABETES: RETINAL EYE EXAM] Future Scheduled 2023-02-12 BREAST CANCER [facility] Test 08:24:31 SCREENING [code = BREAST CANCER SCREENING] Future Scheduled 2023-02-12 DIABETIC FOOT EXAM [facility] Test 08:24:31 [code = DIABETIC FOOT EXAM] Future Scheduled 2023-02-12 URINE MICROALBUMIN [facility] Test 08:24:31 [code = URINE MICROALBUMIN] Future Scheduled 2023-02-12 COVID-19 VACCINE (4 - [facility] Test 08:24:31 ) [code = COVID-19 VACCINE (4 - season)] Future Scheduled 2023-02-12 INFLUENZA VACCINE (#1) [facility] Test 08:24:31 [code = INFLUENZA VACCINE (#1)] Future Scheduled 2023-02-12 Screening for [facility] Test 08:24:31 malignant neoplasm of colon (procedure) [code = 459993610] Future Scheduled 2023-02-12 Screening for [facility] Test 08:24:31 malignant neoplasm of colon (procedure) [code = 360106574] Future Scheduled 2023-02-[address] [facility] Test 00:00:00 [facility] (procedure) [code = 59170385] Future Scheduled 2023-01-08 [facility] 09:11:14 malignant neoplasm of colon (procedure) [code = 464884963] Future Scheduled 2023-01-08 [facility] 09:11:14 malignant neoplasm of colon (procedure) [code = 406873750] Future Scheduled 2023-01-08 [facility] Test 09:11:14 malignant neoplasm of colon (procedure) [code = 352933770] Future Scheduled 2023-01-08 SHINGLES VACCINES (1 [facility] Test 09:11:14 of 2) [code = SHINGLES VACCINES (1 of 2)] Future Scheduled 2023-01-08 DIABETES: RETINAL EYE [facility] Test 09:11:14 EXAM [code = DIABETES: RETINAL EYE EXAM] Future Scheduled 2023-01-08 BREAST CANCER [facility] Test 09:11:14 SCREENING [code = BREAST CANCER SCREENING] Future Scheduled 2023-01-08 DIABETIC FOOT EXAM [facility] Test 09:11:14 [code = DIABETIC FOOT EXAM] Future Scheduled 2023-01-08 URINE MICROALBUMIN [facility] Test 09:11:14 [code = URINE MICROALBUMIN] Future Scheduled 2023-01-08 COVID-19 VACCINE (4 - [facility] Test 09:11:14 season) [code = COVID-19 VACCINE ( - season)] Future Scheduled 2023-01-08 INFLUENZA VACCINE (#1) [facility] Test 09:11:14 [code = INFLUENZA VACCINE (#1)] Future Scheduled 2023-01-08 [facility] 09:11:14 malignant neoplasm of colon (procedure) [code = 366378416] Future Scheduled 2023-01-08 [facility] 09:11:14 malignant neoplasm of colon (procedure) [code = 439283443] Future Scheduled 2022-12-12 Medicare IPPE (WELCOME [facility] MEDICARE) [code = Medical Center Medicare IPPE (WELCOME TO MEDICARE)] Future Scheduled 2022-12-06 [facility] 12:51:20 malignant neoplasm of colon (procedure) [code = 357582717] Future Scheduled 2022-12-06 [facility] 12:51:20 malignant neoplasm of colon (procedure) [code = 060022328] Future Scheduled 2022-12-06 [facility] 12:51:20 malignant neoplasm of colon (procedure) [code = 415528852] Future Scheduled 2022-12-06 SHINGLES VACCINES (1 [facility] Test 12:51:20 of 2) [code = SHINGLES VACCINES (1 of 2)] Future Scheduled 2022-12-06 DIABETES: [facility]AL [facility] 12:51:20 EXAM [code = DIABETES: RETINAL EYE EXAM] Future Scheduled 2022-12-06 BREAST CANCER [facility] 12:51:20 SCREENING [code = BREAST CANCER SCREENING] Future Scheduled 2022-12-06 COVID-19 VACCINE (4 - [facility] 12:51:20 Pfizer series) [code = COVID-19 VACCINE (4 - Pfizer series)] Future Scheduled 2022-12-06 DIABETIC FOOT [facility]AM [facility] 12:51:20 [code = DIABETIC FOOT EXAM] Future Scheduled 2022-12-06 URINE [facility]ALBUMIN [facility] 12:51:20 [code = URINE MICROALBUMIN] Future Scheduled 2022-12-06 INFLUENZA VACCINE (#1) [facility] 12:51:20 [code = INFLUENZA VACCINE (#1)] Future Scheduled 2022-12-06 [facility] 12:51:20 malignant neoplasm of colon (procedure) [code = 244944220] Future Scheduled 2022-12-06 [facility] 12:51:20 malignant neoplasm of colon (procedure) [code = 854529111] Future Scheduled 2022-11-17 [facility] 20:12:18 malignant neoplasm of colon (procedure) [code = 532034285] Future Scheduled 2022-11-17 [facility] 20:12:18 malignant neoplasm of colon (procedure) [code = 986106435] Future Scheduled 2022-11-17 [facility] 20:12:18 malignant neoplasm of colon (procedure) [code = 944557524] Future Scheduled 2022-11-17 SHINGLES VACCINES ([address] [facility] Test 20:12:18 of 2) [code = SHINGLES VACCINES (1 of 2)] Future Scheduled 2022-11-17 DIABETES: RETINAL EYE [facility] Test 20:12:18 EXAM [code = DIABETES: RETINAL EYE EXAM] Future Scheduled 2022-11-17 BREAST CANCER [facility] Test 20:12:18 SCREENING [code = BREAST CANCER SCREENING] Future Scheduled 2022-11-17 COVID-19 VACCINE (4 - [facility] Test 20:12:18 Pfizer series) [code = COVID-19 VACCINE (4 - Pfizer series)] Future Scheduled 2022-11-17 DIABETIC FOOT EXAM [facility] Test 20:12:18 [code = DIABETIC FOOT EXAM] Future Scheduled 2022-11-17 URINE MICROALBUMIN [facility] Test 20:12:18 [code = URINE MICROALBUMIN] Future Scheduled 2022-11-17 INFLUENZA VACCINE (#1) [facility] Test 20:12:18 [code = INFLUENZA VACCINE (#1)] Future Scheduled 2022-11-17 Screening for [facility] Test 20:12:18 malignant neoplasm of colon (procedure) [code = 598923965] Future Scheduled 2022-11-17 Screening for [facility] Test 20:12:18 malignant neoplasm of colon (procedure) [code = 295104662] Future Scheduled 2022-11-12 Influenza Vaccine (#1) [facility] 00:[facility]00 [code = Influenza Medical Ce nter Vaccine (#1)] Future Scheduled 2022-09-10 Urine screening for [facility] Test 00:00:00 protein (procedure) Medical Center [code = 378756690] Future Scheduled 2022-07-28 SHINGLES VACCINES ([address] [facility] Test 07:13:53 of 2) [code = SHINGLES VACCINES (1 of 2)] Future Scheduled 2022-07-28 DIABETES: RETINAL EYE [facility] Test 07:13:53 EXAM [code = DIABETES: RETINAL EYE EXAM] Future Scheduled 2022-07-28 BREAST CANCER [facility] Test 07:13:53 SCREENING [code = BREAST CANCER SCREENING] Future Scheduled 2022-07-28 COVID-19 VACCINE ([facility] 07:13:53 Booster for Pfizer series) [...] INFLUENZA VACCINE] Future Scheduled 2022-07-28 COLONOSCOPY SCREENING [facility] Test 07:13:53 [code = COLONOSCOPY SCREENING] Future Scheduled 2022-05-27 SHINGLES VACCINES ([address] [facility] Test 10:06:33 of 2) [code = SHINGLES VACCINES (1 of 2)] Future Scheduled 2022-05-27 DIABETES: RETINAL EYE [facility] Test 10:06:33 EXAM [code = DIABETES: RETINAL EYE EXAM] Future Scheduled 2022-05-27 COLONOSCOPY SCREENING [facility] Test 10:06:33 [code = COLONOSCOPY SCREENING] Future Scheduled 2022-05-27 BREAST CANCER [facility] Test 10:06:33 SCREENING [code = BREAST CANCER SCREENING] Future Scheduled 2022-05-27 COVID-19 VACCINE (4 - [facility] 10:06:33 Booster for Pfizer series) [code = COVID-19 VACCINE (4 - Booster for Pfizer series)] Future Scheduled 2022-05-27 [facility]INE [facility] 10:06:33 [code = INFLUENZA VACCINE] Future Scheduled 2022-05-27 DIABETIC [facility]OT [facility] Test 10:06:33 [code = DIABETIC FOOT EXAM] Future Scheduled 2022-05-27 URINE [facility] Test 10:06:33 [code = URINE MICROALBUMIN] Future Scheduled 2022-03-[address] [facility] Test 00:00:00 (12+) [code = Medical Center DEPRESSION SCREENING (12+)] Future Scheduled 2022-03-14 FALLS RISK SCREENING [facility] Test 00:00:00 [code = FALLS RISK Medical C enter SCREENING] Future Scheduled 2021-04-16 COVID-19 VACCINE (4 - [facility] 00:[facility]00 Pfizer series) [code = Medic al Center COVID-19 VACCINE (4 - Pfizer series)] Future Scheduled 2004 SHINGLES VACCINES ([address] [facility] Test 00:00:00 of 2) [code = SHINGLES Medic al Center VACCINES (1 of 2)] Future Scheduled 1973 DTAP/TDAP/TD VACCINES [facility] 00:00:00 (1 - Tdap) [code = Medical C enter DTAP/TDAP/TD VACCINES (1 - Tdap)] Future Scheduled 1972 HEPATITIS C [facility]CRE[facility]ING [facility] 00:00:00 [code = HEPATITIS C Medical Center SCREENING] Future Scheduled 1964 DIABETIC EYE EXAM [facility] Test 00:00:00 [code = DIABETIC EYE Medical Center EXAM] Future Scheduled [address] [facility] 00[facility] examination Medical Center (regime/therapy) [code = 132006514] Future Scheduled 1960 PNEUMOCOCCAL 65+ [facility] Test 00:00:00 (1 - PCV) [code = Medical Ce nter PNEUMOCOCCAL 65+ YRS (1 - PCV)] Future Scheduled [address] [facility] 00:00:00 [facility] breast (procedure) [code = 293530363] Future Scheduled [address] [facility] Test 00:00:00 (combo) [code = CT Medical C enter Colonography (combo)] Future Scheduled [address] [facility] Test 00:00:00 malignant neoplasm of Medica l Center colon (procedure) [code = 437768160] Future Scheduled [address] [facility] 00:00:00 malignant neoplasm of [facility]ica [facility] Center colon (procedure) [code = 271682031] Future Scheduled 1954 DXA SCAN [code = DXA [facility] Test 00:00:00 SCAN] Medical Center Future Scheduled [address] [facility] 00:00:00 malignant neoplasm of Medica l Center colon (procedure) [code = 118225973] Future Scheduled [address] [facility] 00:00:00 malignant neoplasm of Medica l Center colon (procedure) [code = 663845518] Future Scheduled 1954 Sigmoidoscopy [code = [facility] 00:00:00 Sigmoidoscopy] Medical Cente r Encounters Start End Encounter Admission Attending Care Care Encounter Source Date/Time Date/Time Type Type Clinicians Facility Department ID 2023-02-06 Inpatient MERY [facility] [id number] [facility] 09:16:07 RASHEEDA 2019-10-03 Inpatient Jonathon Phillips MCSETX JUANITA [id number] [facility]:27[facility] 2023-02-09 2023-02-09 [id number] 00:00:00 00:00:00 ion Ani Silvana [facility] 2023-02-04 2023-02-06 Inpatient ER MERY [facility] Surgery 1 [id number] [facility] 12:45:00 18:22:00 RASHEEDA 2023-02-04 2023-02-06 [facility] Luis Bowen [facility] [id number] 12:45:00 18:22:00 Encounter Jimbo Christensen [facility] 2023-02-05 2023-02-05 [facility] [id number] 15:25:00 19:06:00 [facility] 2023-02-04 2023-02-04 [facility] [id number] 12:26:00 16:07:00 [facility] 2023-02-04 2023-02-04 Orders [facility] [id number] 00:00:00 00:00:00 Only [facility] 2023-01-25 2023-01-25 Outpatient GC_CCW_Rami PRIV PRIV [id number] [facility] 00:00:00 00:00:00 neni_R [id number] Medica l 2022-12-28 2022-12-28 Outpatient GC_CCW_Rami PRIV PRIV 271 [id number] [facility] 00:00:00 00:00:00 neni_R [id number] Medica l 2022-11-30 2022-11-30 Outpatient GC_CCW_Rami PRIV PRIV 271 [id number] [facility] 00:00:00 00:00:00 neni_R [id number] Medica l 2022-07-16 2022-07-16 Outpatient DMG [facility]G [facility] 00:00:00 00:00:00 [id number] Medica l Group 2022-07-16 2022-07-16 Outpatient DMG [facility] 00:00:00 00:00:00 [id number] Medica l Group 2022-07-15 2022-07-15 Outpatient DMG [facility] 00:00:00 00:00:00 71559 Medica l Group 2022 2022 Patient Dove, 1.2.840.1 [id number] [facility]i 00:00:00 00:00:00 Outreach Mickie 37637.1.[address] 3.430.2.7 Hospit a .3.293083 l .8 2022 2022 Patient Dove, 1.2.840.1 [id number] Methodi 00:00:00 00:00:00 Outreach Mickie 31482.1.[address] 3.430.2.7 Hospit a .3.680627 l .8 2022-07-07 2022-07-07 Patient Dove, 1.2.840.1 [id number] Methodi 00:00:00 00:00:00 Outreach Mickie 76104.1.[address] 3.430.2.7 Hospit a .3.368949 l .8 2022-07-07 2022-07-07 Patient Dove, 1.2.840.1 [id number] 0864 Methodi 00:00:00 00:00:00 Outreach Mickie 35630.1.[address] 3.430.2.7 Hospit a .3.048018 l .8 2022-06-30 2022-06-30 Outpatient EBONY 2.16.840.1. 1 [id number] 12:37:00 12:37:00 Encounter E 110050.4.6. [facility] [id number] [facility] 2022-06-30 2022-06-30 Outpatient 3 ALTHEA RIBERA HVBELKISo DEX 474 Genny 07:37:00 07:37:00 0419 lle Talisha l 2022-06-29 2022-06-29 Patient Dove, 1.2.840.1 [id number] Methodi 00:00:00 00:00:00 Outreach Mickie 10437.1.[address] 3.430.2.7 Hospit a .3.503915 l .8 2022-06-29 2022-06-29 Patient Dove, 1.2.840.1 [id number] Methodi 00:00:00 00:00:00 Outreach Mickie 15876.1.[address] 3.430.2.7 Hospit a .3.822412 l .8 2022-06-23 2022-06-23 Patient Pablito, 1.2.840.1 [id number] 0671 Methodi 00:00:00 00:00:00 Outreach Krutina 98959.1.[address] 3.430.2.7 Hospit a .3.409572 l .8 2022-06-23 2022-06-23 Patient Pablito, 1.2.840.1 [id number] 3390 Methodi 00:00:00 00:00:00 Outreach Krutina 03922.1.[address] 3.430.2.7 Hospit a .3.896342 l .8 2022-06-22 2022-06-22 Patient Dove, 1.2.840.1 [id number] 4698 Methodi 00:00:00 00:00:00 Outreach Mickie 05310.1.[address] 3.430.2.7 Hospit a .3.835196 l .8 2022-06-22 2022-06-22 Patient Dove, 1.2.840.1 [id number] 7367 Methodi 00:00:00 00:00:00 Outreach Mickie 34943.1.[address] 3.430.2.7 Hospit a .3.412471 l .8 2022-06-09 2022-06-09 Patient Pablito, 1.2.840.1 [id number] Methodi 00:00:00 00:00:00 Outreach Nafisa 37702.1.[address] 3.430.2.7 Hospit a .3.572622 l .8 2022-06-09 2022-06-09 Patient Pablito, 1.2.840.1 [id number] 5027 Methodi 00:00:00 00:00:00 Outreach Nafisa 15178.1.[address] 3.430.2.7 Hospit a .3.527645 l .8 2022-06-08 2022-06-08 Outpatient GC_CCW_Rami PRIV PRIV [id number] [facility] 00:00:00 00:00:00 neni_R [id number] Medica l 2022-06-03 2022-06-03 Outpatient GC_CCW_Rami PRIV PRIV 271 [id number] [facility] 00:00:00 00:00:00 neni_R [id number] Medica l 2022-05-27 2022-05-27 Telephone Jose Farfan 1.2.840.1 [id number] Methodi 00:00:00 00:00:[address] 3.430.2.7 Hospit a .3.420949 l .8 2022-05-27 2022-05-27 Telephone Jose Farfan 1.2.840.1 [id number] Methodi 00:00:00 00:00:[address] 3.430.2.7 Hospit a .3.509454 l .8 2022-05-20 2022-05-24 [facility] Soledad Arnold 1.2.840. 1 [id number] Methodi 09:49:00 14:24:00 Encounter Sulema Benito 82855.1.[address] Kura, Sarai Methuku 3.430.2.7 [facility] My .3.133037 Jamia Hunt .8 2022-05-20 2022-05-24 [facility].2.840. 1 [id number] Methodi 09:49:00 14:24:00 Encounter SherlynkikeMikoan 67437.1.[address] Courtneya, Sarai Methuku 3.430.2.7 [facility] My .3.112680 sanchez ZoranJamia delgado .8 2022-05-22 2022-05-22 Anesthesia Hurtado, 1.2.840.1 [id number] [id number] Methodi 08:12:00 09:05:00 Event Raffaele 29601.1.[address] 3.430.2.7 Hospit a .3.772429 l .8 2022-05-22 2022-05-22 Anesthesia Hurtado, 1.2.840.1 [id number] [id number] Methodi 08:12:00 09:05:00 Event Raffaele 78864.1.[address] 3.430.2.7 Hospit a .3.145016 l .8 2022-05-22 2022-05-22 Surgery Naheed, Jose 1.2.840.1 [id number] 21 [id number] Methodi 08:00:00 08:30:[address] 3.430.2.7 Hospit a .3.214852 l .8 2022-05-22 2022-05-22 Surgery Naheed, Jose 1.2.840.1 [id number] 21 [id number] Methodi 08:00:00 08:30:[address] 3.430.2.7 Hospit a .3.868292 l .8 2022-05-18 2022-05-18 Lab Jose Farfan 1.2.840.1 [id number] 21 [id number] Methodi 09:15:00 09:20:[address] 3.430.2.7 Hospit a .3.351140 l .8 2022-05-18 2022-05-18 Lab Jose Farfan 1.2.840.1 [id number] 21 [id number] Methodi 09:15:00 09:20:[address] 3.430.2.7 Hospit a .3.104553 l .8 2022-05-18 2022-05-18 Office Jose Farfan 1.2.840.1 [id number] 21 [id number] Methodi 08:00:00 08:50:33 Visit Daniel 78661.1.[address] 3.430.2.7 Hospit a .3.667929 l .8 2022-05-18 2022-05-18 Office Jose Farfan 1.2.840.1 [id number] 21 [id number] Methodi 08:00:00 08:50:33 Visit Daniel 19316.1.[address] 3.430.2.7 Hospit a .3.451538 l .8 2022-05-18 2022-05-18 Travel 1.2.840.1 1.2.461.222 8644 [id number] Methodi 00:00:00 00:00:[address] 3.430.2.7 0.2.7.3.698 Ho spita .3.846495 084.8 l .8 2022-05-18 2022-05-18 Travel 1.2.840.1 1.2.861.211 5580 546152 Methodi 00:00:00 00:00:[address] 3.430.2.7 0.2.7.3.698 Ho spita .3.885794 084.8 l .8 2022-05-14 2022-05-14 Telephone Gomez, 1.2.840.1 [id number] 2099 [id number] Methodi 00:00:00 00:00:[address] 3.430.2.7 Hospit a .3.292145 l .8 2022-05-14 2022-05-14 Telephone Gomez, 1.2.840.1 [id number] 2100 [id number] Methodi 00:00:00 00:00:[address] 3.430.2.7 Hospit a .3.364100 l .8 2022-05-06 2022-05-06 Telephone Gomez, 1.2.840.1 [id number] 83979 Methodi 00:00:00 00:00:[address] 3.430.2.7 Hospit a .3.838173 l .8 2022-05-06 2022-05-06 Telephone Gomez, 1.2.840.1 [id number] Methodi 00:00:00 00:00:[address] 3.430.2.7 Hospit a .3.467135 l .8 2022-05-03 2022-05-03 Office Gomez, 1.2.840.1 [id number] 901 Methodi 10:00:00 10:11:51 Visit Deborah [address]8512.1.[address] 3.430.2.7 Hospit a .3.290121 l .8 2022-05-03 2022-05-03 Office Gomez, 1.2.840.1 [id number] 901 Methodi 10:00:00 10:11:51 Visit Deborah 23604.1.[address] 3.430.2.7 Hospit a .3.379041 l .8 2022-05-03 2022-05-03 Travel 1.2.840.1 1.2.274.842 9476 019201 Methodi 00:00:00 00:00:[address] 3.430.2.7 0.2.7.3.698 Ho spita .3.685205 084.8 l .8 2022-05-03 2022-05-03 Travel 1.2.840.1 1.2.853.704 6521 301815 Methodi 00:00:00 00:00:[address] 3.430.2.7 0.2.7.3.698 Ho spita .3.111588 084.8 l .8 2022-04-21 2022-04-21 Office Gomez, 1.2.840.1 [id number] 263 Methodi 09:00:00 09:25:59 Visit Deborah 72705.1.[address] 3.430.2.7 Hospit a .3.298413 l .8 2022-04-21 2022-04-21 Office Gomez, 1.2.840.1 [id number] 263 Methodi 09:00:00 09:25:59 Visit Deborah 33979.1.[address] 3.430.2.7 Hospit a .3.880061 l .8 2022-04-20 2022-04-20 Travel 1.2.840.1 1.2.043.755 5033 845793 Methodi 00:00:00 00:00:[address] 3.430.2.7 0.2.7.3.698 Ho spita .3.721539 084.8 l .8 2022-04-20 2022-04-20 Travel 1.2.840.1 1.2.081.176 4651 418664 Methodi 00:00:00 00:00:[address] 3.430.2.7 0.2.7.3.698 Ho spita .3.685880 084.8 l .8 2022-04-19 2022-04-19 Telephone Jose Farfan 1.2.840.1 [id number] Methodi 00:00:00 00:00:[address] 3.430.2.7 Hospit a .3.566834 l .8 2022-04-19 2022-04-19 Telephone Jose Farfan 1.2.840.1 [id number] Methodi 00:00:00 00:00:[address] 3.430.2.7 Hospit a .3.339924 l .8 2021-10-08 2021-10-08 Refritesh Haider, 1.2.840.1 [id number] 7679 Methodi 00:00:00 00:00:00 Bernard 12521.1.1 [address] 3.430.2.7 Hospit a .3.648922 l .8 2021-10-05 2021-10-05 Travel 1.2.840.1 1.2.285.600 9354 598851 Methodi 00:00:00 00:00:[address] 3.430.2.7 0.2.7.3.698 Ho spita .3.682990 084.8 l .8 2021-10-02 2021-10-02 Sarah Hess 1.2.840.1 [id number] 459 [id number] Methodi 00:00:00 00:00:[address] 3.430.2.7 Hospit a .3.529858 l .8 2021-10-01 2021-10-01 Telemedici Gomez, 1.2.840.1 [id number] 2099 [id number] Methodi 12:40:00 12:40:00 [address] Arre[address]653.1.[address] 3.430.2.7 Hospit a .3.861447 l .8 2021-09-30 2021-09-30 Travel 1.2.840.1 1.2.880.048 3870 534039 Methodi 00:00:00 00:00:[address] 3.430.2.7 0.2.7.3.698 Ho spita .3.121311 084.8 l .8 2021-09-29 2021-09-29 Telephone Violette, 1.2.840.1 [id number] 2099 [id number] Methodi 00:00:00 00:00:[address] 3.430.2.7 Hospit a .3.195451 l .8 2021-09-28 2021-09-28 Orders Gomez, 1.2.840.1 [id number] 440 Methodi 00:00:00 00:00:00 Only Deborah 59232.1.[address] 3.430.2.7 Hospit a .3.116361 l .8 2021-09-28 2021-09-28 Telephone Gomez, 1.2.840.1 [id number] 01016 40093 Methodi 00:00:00 00:00:[address] 3.430.2.7 Hospit a .3.868094 l .8 2021-09-25 2021-09-25 [facility] JoseladiEstrellita 1.2.840.1 [id number] Methodi 16:30:00 17:02:[address] Care 3.430.2.7 Hospit a .3.823622 l .8 2021-09-25 2021-09-25 Outpatient [facility] [id number] [address] [place] [address] 00:00:00 00:00:[address] 2021-09-25 2021-09-25 Telephone Gomez, 1.2.840.1 [id number] 22039 Methodi 00:00:00 00:00:[address] 3.430.2.7 Hospit a .3.460024 l .8 2021-09-23 2021-09-23 Hospital Gomez, 1.2.840.1 [id number] 69839 Methodi 06:48:07 23:59:00 Encounter Deborah 50812.1.[address] 3.430.2.7 Hospit a .3.893507 l .8 2021-09-22 2021-09-22 Travel 1.2.840.1 1.2.684.985 2921 494117 Methodi 00:00:00 00:00:[address] 3.430.2.7 0.2.7.3.698 Ho spita .3.289979 084.8 l .8 2021-09-11 2021-09-11 Refill Jeanette, 1.2.840.1 [id number] 048127 9827 Methodi 00:00:00 00:00:[address] Galindo 3.430.2.7 Hospit a .3.690183 l .8 2021-09-10 2021-09-10 Office Gomez, 1.2.840.1 [id number] 526 Methodi 13:00:00 13:43:26 Visit Deborah 21215.1.[address] 3.430.2.7 Hospit a .3.021599 l .8 2021-09-10 2021-09-10 Travel 1.2.840.1 1.2.510.130 6973 760498 Methodi 00:00:00 00:00:[address] 3.430.2.7 0.2.7.3.698 Ho spita .3.349332 084.8 l .8 2021-09-08 2021-09-08 Patient Jean, 1.2.840.1 [id number] 818 [id number] Methodi 00:00:00 00:00:00 Outreach Jamia 12910.1.[address] 3.430.2.7 Hospit a .3.745118 l .8 2021-08-14 2021-08-14 Travel 1.2.840.1 1.2.678.016 8010 382236 Methodi 00:00:00 00:00:[address] 3.430.2.7 0.2.7.3.698 Ho spita .3.059497 084.8 l .8 2021-08-13 2021-08-13 Office Claudio, 1.2.840.1 [id number] 4951 Methodi 11:00:00 13:40:00 Visit Margy 82359.1.[address] Nava 3.430.2.7 Hospit a .3.349531 l .8 2021-08-13 2021-08-13 Outpatient [facility] [id number] [address] [place] 00:00:00 00:00:[address] 2021-08-11 2021-08-11 Travel 1.2.840.1 1.2.509.992 0816 882726 Methodi 00:00:00 00:00:[address] 3.430.2.7 0.2.7.3.698 Ho spita .3.071843 084.8 l .8 2021-07-30 2021-07-30 Office Gomez, 1.2.840.1 [id number] 245 Methodi 13:00:00 13:25:42 Visit Deborah 42990.1.[address] 3.430.2.7 Hospit a .3.456527 l .8 2021-07-30 2021-07-30 Travel 1.2.840.1 1.2.890.276 6741 333747 Methodi 00:00:00 00:00:[address] 3.430.2.7 0.2.7.3.698 Ho spita .3.258126 084.8 l .8 2021-07-28 2021-07-28 Documentat Haider, 1.2.840.1 [id number] 062 [id number] Methodi 00:00:00 00:00:00 ion Violet 92189.1.[address] [facility] 3.430.2.7 Hos irena .3.299911 l .8 2021-07-27 2021-07-27 Travel 1.2.840.1 1.2.387.590 7136 695967 Methodi 00:00:00 00:00:[address] 3.430.2.7 0.2.7.3.698 Ho spita .3.968334 084.8 l .8 2021-02-19 2021-02-19 Outpatient YOMAIRA [facility] [id number] [address] [place] 00:00:00 00:00:[address] BUTCH [address] 2021-02-19 2021-02-19 Outpatient [facility] [id number] 5[address] [place] 00:00:00 00:00:[address] 2021-01-26 2021-01-26 Outpatient BURNETTE, [facility] [id number] [address] [place] 00:00:00 00:00:00 BUTCH [address] 2021-01-05 2021-01-05 Outpatient GOMEZ, [facility] [id number] [address] [place] 00:00:00 00:00:00 DEBORAH [address] 2021-01-05 2021-01-05 Outpatient [facility] [id number] [address] [place] 00:00:00 00:00:[address] 2020-12-16 2020-12-16 Outpatient GOMEZ, [facility] [id number] 592 [place] 00:00:00 00:00:00 DEBORAH [address] 2020-12-16 2020-12-16 Outpatient [facility] [id number] 993 [place] 00:00:00 00:00:[address] 2020-10-22 2020-10-22 Outpatient [facility] [id number] [address] [place] 00:00:00 00:00:[address] 2020-10-22 2020-10-22 Outpatient CHERIE, DIANA [facility] 239 [id number] [place] 00:00:00 00:00:[address] 2020-10-22 2020-10-22 Outpatient RIVERO, MARIELOS [facility] 112 [id number] [place] 00:00:00 00:00:[address] 2020-10-16 2020-10-16 [facility] [address] [facility] 00:00:00 00:00:00 CORONA [facility] 2020-10-09 2020-10-09 Outpatient JEANETTE, [facility] [id number] [address] [place] 00:00:00 00:00:00 MOHAMMED [address] 2020-09-24 2020-09-24 Outpatient GOMEZ, [facility] [id number] 851 [place] 00:00:00 00:00:00 DEBORAH [address] 2020-08-14 2020-08-14 Outpatient [facility] [id number] [place] 00:00:00 00:00:[address] 2020-07-18 2020-07-18 Outpatient DIANA CRESPO [facility] [id number] [place] 00:00:00 00:00:[address] 2020-07-08 2020-07-08 Outpatient RAMINENI, [facility] [id number] [place] 00:00:00 00:00:00 VENICE [address] [facility] 2020-07-07 2020-07-[address] [facility] [id number] [place] 00:00:00 00:00:00 0[address] [facility] 2020-07-04 2020-07-04 Outpatient RAMDEBONI, [facility] [id number] [place] 00:00:00 00:00:00 VENICE [address] [facility] 2020-07-02 2020-07-02 Outpatient JEANETTE, [facility] [id number] [place] 00:00:00 00:00:00 MOHAMMED [address] 2020-06-04 2020-06-04 Outpatient JEANETTE, [facility] [id number] [place] 00:00:00 00:00:00 MOHAMMED [address] 2020-04-24 2020-04-24 Outpatient DIANA CRESPO [facility] [id number] [place] 00:00:00 00:00:00 [address] [facility] 2020-04-10 2020-04-12 Inpatient VIVIANA, [facility] [id number] [place] 00:00:00 00:00:00 ROLLY [address] 2019-10-29 2019-10-29 Outpatient NANCY JOYCE AE [id number] [place] 09:43:00 09:43:[address] 2019-10-07 2019-10-07 Emergency [facility] [id number] Medical 12:55:00 12:55:00 [facility] 2019-10-07 2019-10-07 Emergency 1 Abimael Lafleur [facility] [id number] Medical 12:55:00 12:55:00 Abimael Lafleur -[id number] [facility] 2019-10-04 2019-10-04 Outpatient 3 Jonathon Phillips [facility] [id number] Medical 06:02:00 06:02:00 Jonathon Phillips -[id number] [facility] 2019-09-18 2019-09-18 Outpatient EL NANCY PHILLIPS AE [id number] [place] 15:35:00 15:35:[address] 2019-09-13 2019-09-13 Emergency [facility] [id number] Medical 12:30:00 12:30:00 [facility] 2016-08-15 2016-08-15 Inpatient E [facility] [id number] Medical 19:45:00 15:34:00 [facility] 2016-05-03 2016-05-03 Emergency E [facility] [id number] Medical 12:46:00 12:46:00 [facility] 2016-04-23 2016-04-23 Emergency E [facility] [id number] Medical 09:15:00 09:15:00 [facility] Results Test Description Test Time Test Comments Results Result Sourc e Comments VASCULAR DIAGRAM Ordered by an [facility] -SCAN 1 unspecified provider. Med ical 14:20:15 [place] CARDIAC CATH 2023-01-[address] [facility] REPORT - SCAN 7 unspecified provider. Medical 14:35:13 [place] CARDIAC CATH 2023-01-[address] [facility] REPORT - SCAN 7 unspecified provider. Medical 14:34:13 Center ECG 12 lead 2023-01-13 Ventricular Rate [address] [facility] 7 BPMAtrial Rate 76 Medical 06:17:02 BPMP-R Interval 152 Cente r msQRS Duration 94 msQ-T Interval 570 msQTC Calculation(Bazett) 641 msP [place] 82 degreesR [place] 50 degreesT [place] 233 degrees Sinus rhythm with Premature supraventricular complexesInferior infarct (cited on or before 04-FEB-2023)ST & Marked T wave abnormality, consider anterolateral ischemiaProlonged QTAbnormal ECGWhen compared with ECG of 05-FEB-2023 14:05,Premature supraventricular complexes are now PresentConfirmed by MD SHILO, KEO Bennett ([id number]) on 02/07/2023 6:16:57 AM BASIC METABOLIC PANEL 2023-02-06 16:24:16 Test Item Value Reference Range Interpretation Comme nts SODIUM (BEAKER) (test 125 meq/L 136-145 L code = 381) POTASSIUM (BEAKER) 4.0 meq/L 3.5-5.1 (test code = 379) CHLORIDE (BEAKER) (test 96 meq/L 98-107 L code = 382) CO2 (BEAKER) (test code 17 meq/L 22-29 L = 355) BLOOD UREA NITROGEN 15 mg/dL 7-21 (BEAKER) (test code = 354) CREATININE (BEAKER) 0.83 mg/dL 0.57-1.25 (test code = 358) GLUCOSE RANDOM (BEAKER) 113 mg/dL 70-105 H (test code = 652) CALCIUM (BEAKER) (test 8.3 mg/dL 8.4-10.2 L code = 697) EGFR (BEAKER) (test 77 mL/min/1.73 sq In terpretation of eGFR values code = 1092) m Stage Descripti on Result G1 Normal or high >=90 G2 Mildly decreased 60-89 G3a Mildly to moderately 45-5 9 G3b Moderately to severely 30- 44 G4 Severly decreased 15-29 G5 Kidney failure <15Repo rted eGFR is based on the CK D-EPI 2020 equation that d oes not use a race coefficien tEstimated GFR is not as accurate as Creatinine Clearance in pr edicting glomerular filt ration rate. Estimated GFR i s not applicable for dialysis maria mccoy Lead Tank Mechanic ID - ADMINBASIC METABOLIC [id number] 15:42:10 Test Item Value Reference Range Interpretation Comments SODIUM (BEAKER) 129 meq/L 136-145 L (test code = 381) POTASSIUM 3.5 meq/L 3.5-5.1 Specimen slight ly (BEAKER) (test hemolyzed code = 379) CHLORIDE (BEAKER) 95 meq/L 98-107 L (test code = 382) CO2 (BEAKER) 23 meq/L 22-29 (test code = 355) BLOOD UREA 18 mg/dL 7-21 NITROGEN (BEAKER) (test code = 354) CREATININE 0.94 mg/dL 0.57-1.25 Specimen slight ly (BEAKER) (test hemolyzed code = 358) GLUCOSE RANDOM 122 mg/dL 70-105 H (BEAKER) (test code = 652) CALCIUM (BEAKER) 8.5 mg/dL 8.4-10.2 (test code = 697) EGFR (BEAKER) 66 Interpretatio n of eGFR (test code = mL/min/1.73 values Stage De scription 1092) sq m Result G1 Leigha l or high >=90 G2 Mildly decreased 60-89 G3a Mildl y to moderately 45-5 9 G3b Moderately to s everely 30-44 G4 Severl y decreased 15-29 G5 Kidney failure <15Reported eGF R is based on the CKD-EPI 2020 equation that d oes not use a race coefficientEsti mated GFR is not as accur ate as Creatinine Lay wilber in predicting glom erular filtration rate . Estimated GFR is not appl icable for dialysis patien ts Lead Tank Mechanic ID - [id number] (HEMOGRAM ONLY)2023-02-06 15:27:14 Test Item Value Reference Range Interpretation Comments WHITE BLOOD CELL COUNT (BEAKER) 7.9 K/ L 3.5-10.5 (test code = 775) RED BLOOD CELL COUNT (BEAKER) 3.99 M/ L 3.93-5.22 (test code = 761) HEMOGLOBIN (BEAKER) (test code = 11.0 GM/DL 11.2-15.7 L 410) HEMATOCRIT (BEAKER) (test code = 33.5 % 34.1-44.9 L 411) MEAN CORPUSCULAR VOLUME (BEAKER) 84 fL 79-95 (test code = 753) MEAN CORPUSCULAR HEMOGLOBIN 27.6 pg 25.6-32.2 (BEAKER) (test code = 751) MEAN CORPUSCULAR HEMOGLOBIN CONC 32.8 GM/DL 32.2-35.5 (BEAKER) (test code = 752) RED CELL DISTRIBUTION WIDTH 15.0 % 11.7-14.4 H (BEAKER) (test code = 412) PLATELET COUNT (BEAKER) (test 253 K/CU MM 150-450 code = 756) MEAN PLATELET VOLUME (BEAKER) 10.4 fL 9.4-12.3 (test code = 754) NUCLEATED RED BLOOD CELLS 0 /100 WBC 0-0 (BEAKER) (test code = 413) ECHO W CONTRAST & [id number] 13:56:19Transthoracic Echocardiography Report (TTE) Demographics Patient Name MANDY MERCER Date of Study 02/06/2023 Gender Female Visit Number [id number] Race Unknown Room Number 1430 Number Date of 1955 Referring Physician Age 67 year(s) 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 Amount - 2 mlHeight: 62 inches Weight: 62.6 kg (138 lbs) BSA: 1.63 m^2 BMI: 25.24 kg/m^2HR: 69 bpm BP: 113/66 mmHg Summary 1. Technically difficult exam. LV endocardium is adequately visualized with IV ultrasound enhancing agent. 2. The left ventricle chamber size (by vol index) is normal (female - LVED vol - 29-61ml/m2). Mild concentric LV hypertrophy. The following segment(s) appear akinetic: all apical segments. The following segment(s) appear hypokinetic: all mid-cavity segments. Basal segments are normal to hyperkinetic.Appearance is suggestive of stress-mediated (Takotsubo) cardiomyopathy, versus CAD. Global LV systolic function mildly reduced . LVEF by Jeffery's method of disk assessment is mildly reduced (around 45%) . Grade 2 diastolic dysfunction (moderately increased LA pressure). No apical LV thrombus is visualized in contrast images. 3. Normal RV size and systolic function. 4. LA size is severely enlarged (>48 ml/m2) . 5. Mild aortic and mitral regurgitation. 6. Estimated peak systolic PA pressure is 30-35 mmHg (normal range) . Signature Findings Rhythm/BP Regular sinus rhythm during the exam. Left Ventricle LV endocardium is adequately visualized with IV ultrasound enhancing agent. The left ventricle chamber size (by vol index) is normal (female - LVED vol - 29-61ml/m2). Mild concentric LV hypertrophy. The following segment(s) appear akinetic: all apical segments. The following segment(s) appear hypokinetic: all mid-cavity segments. Basal segments are normal to hyperkinetic. Appearance is suggestive of stress- mediated (Takotsubo) cardiomyopathy, versus CAD. Global LV systolic function mildly reduced . Global LV systolic function mildly reduced . LVEF by Jeffery's method of disk assessment is mildly reduced (around 45%) . Grade 2 diastolic dysfunction (moderately increased LA pressure). No apical LV thrombus is visualized in contrast images. Left Atrium LA size is severely enlarged (>48 ml/m2) . Right Ventricle Normal RV size and systolic function. Right Atrium Normal right atrium. Aortic Valve Probably trileaflet aortic valve. Mild AoV cusp thickening. No evidence of aortic stenosis. Mild aortic regurgitation. Mitral Valve Mild MV leaflet thickening. Mild mitralannular calcification. No evidence of mitral stenosis. Mild mitral regurgitation. Tricuspid Valve Mild tricuspid regurgitation. Estimated peak systolic PA pressure is 30-35 mmHg (normal range) . Pulmonic Valve Normal PV structure and function by limited views and Doppler. Aorta Aortic root size (SInusof Valsalva diameter) is normal . Proximal ascending aorta is normal . Pericardium No evidence of pericardial effusion. IVC/SVC/PA/PV/Pleural The estimated RA pressure by IVC dynamics 0- 5mmHg .Chambers/Structures Left Atrium LA Volume: 83.79 ml LA Vol. Index: 51 ml/m^2 Left Ventricle LVIDd: 4.48 cm LVEDV:108.21 ml LVIDs: 2.58 cm LV Septum Diastolic: 1.27 cm LV Septum Systolic: 1.41 cm LV Length: 7.78 cm LV PW Diastolic: 1.12 cm LV FS: 42.4 % LV PW Systolic: 1.75 cm LVEDV Jeffery's:97.78 ml LVEDVI: 60 ml/m^2 LVESV Jeffery's:54.32 ml LVESVI: 33 ml/m^2 LVEF Jeffery's: 44.8 % LVOT Diameter: 1.92 cm Right Ventricle RVOT VTI: 12.92 cm TAPSE: 1.71 cmAorta Ascending Aorta: 3.53 cmDoppler/Quantitative Measurements Mitral Valve MV Peak E-Wave: 1.01 m/s MV Peak A-Wave: 0.52 m/s E/A Ratio: 1.97 Peak Gradien t: 4.11 mmHg Deceleration Time: 169.9 msec MV Guillermo. Peak: Tissue Doppler E' Septal Velocity: 0.05 m/sE/E': 19.25 E' Lateral Velocity: 0.05 m/s Aortic Valve Peak Velocity: 1.24 m/s Mean Velocity: 0.87 m/s Peak Gradient: 6.17 mmHg Mean Gradient: 3.48 mmHg AV Area (continuity): 2.53 cm^2 AV VTI: 26.39 cmAV DVI: 0.87 LVOT Peak Velocity: 1.03 m/s Peak Gradient: 4.25 mmHg Mean Velocity: 0.71 m/s Mean Gradient: 2.38 mmHg LVOT Diameter: 1.92 cm LVOT VTI: 23.07 cm LVOT Area: 2.9 cm^2 LVOT SV:66.76 ml LVOT CO: 4.61 l/min LVOT CI: 2.83 l/min/m^2 Tricuspid Valve TR Velocity: 2.56 m/s TR Gradient: 26.13 mmHg Pulmonic Valve Peak Velocity: 0.8 m/s Peak Gradient: 2.[address] [facility]'S Medical CenterOsmolality, [id number] 12:33:12 Test Item Value Reference Range Interpretation Comments Osmolality, Ur (test code 181 See_Comment [ Automated message] = 5909-5) The system [employer] generated this result transmitted ref erence range: 50-1,200 mOsm/kg mOsm/kg . The reference range was not used to int erpret this result as normal/abnormal . Lab Interpretation (test Normal code = 94140-0) [facility] CenterOSMOLALITY, [id number] 12:33:12 Test Item Value Reference Range Interpretation Comments OSMOLALITY URINE 181 mOsm/kg See_Comment [Automated message] (BEAKER) (test code = The sy stem which 614) generated this result transmitted ref erence range: 50-1,200 mOsm/kg. The reference range was not used to int erpret this result as normal/abnormal . POC-Glucose [id number] 12:04:21 Test Item Value Reference Range Interpretation Comments POC-Glucose Meter (test 117 mg/dL 70-110 H : TE STED AT [facility] code = 1538) [address] [facility], [address]: Lead Tank Mechanic/Techni felipe ID = [id number] for Cueto, Candice Lab Interpretation (test Abnormal code = 02938-6) [facility] CenterPOCT-GLUCOSE [id number] 12:04:21 Test Item Value Reference Range Interpretation Comments POC-GLUCOSE METER 117 mg/dL 70-110 H : [facility] (BEAKER) (test code = [facility], 1538) [address]: Lead Tank Mechanic/Techni felipe ID = [id number] for Cueto, Candice [id number] 10:07:28 Test Item Value Reference Range Interpretation Comments ALBUMIN (BEAKER) (test code = 1145) 3.6 g/dL 3.5-5.0 Lead Tank Mechanic ID - [id number] 09:58:07 Test Item Value Reference Range Interpretation Comments MAGNESIUM (BEAKER) (test code = 2.0 mg/dL 1.6-2.6 627) Lead Tank Mechanic ID - [id number] 09:58:07 Test Item Value Reference Range Interpretation Comments PHOSPHORUS (BEAKER) (test code = 3.2 mg/dL 2.3-4.7 604) Lead Tank Mechanic ID - MARCOPOCT-GLUCOSE [id number] 06:42:05 Test Item Value Reference Range Interpretation Comments POC-GLUCOSE METER 109 mg/dL 70-110 : TESTED A T [facility] 6720 (BEAKER) (test code = [facility], 1538) [address]: Lead Tank Mechanic/Techni felipe ID = [id number] for Marlene Weinstein BASIC METABOLIC [id number] 05:39:46 Test Item Value Reference Range Interpretation Comments SODIUM (BEAKER) 127 meq/L 136-145 L (test code = 381) POTASSIUM 4.0 meq/L 3.5-5.1 (BEAKER) (test code = 379) CHLORIDE (BEAKER) 96 meq/L 98-107 L (test code = 382) CO2 (BEAKER) 23 meq/L 22-29 (test code = 355) BLOOD UREA 18 mg/dL 7-21 NITROGEN (BEAKER) (test code = 354) CREATININE 0.85 mg/dL 0.57-1.25 (BEAKER) (test code = 358) GLUCOSE RANDOM 99 mg/dL 70-105 (BEAKER) (test code = 652) CALCIUM (BEAKER) 8.2 mg/dL 8.4-10.2 L (test code = 697) EGFR (BEAKER) 75 Interpretatio n of eGFR (test code = mL/min/1.73 values Stage De scription 1092) sq m Result G1 Leigha l or high >=90 G2 Mildly decreased 60-89 G3a Mildl y to moderately 45-5 9 G3b Moderately to s everely 30-44 G4 Severl y decreased 15-29 G5 Kidne y failure <15Reported eGF R is based on the CKD-EPI 2020 equation that d oes not use a race coefficientEsti mated GFR is not as accur ate as Creatinine Lay merino in predicting glom erular filtration rate . Estimated GFR is not appl icable for dialysis patien ts Lead Tank Mechanic ID - MARCOCBC (HEMOGRAM ONLY)2023-02-06 05:28:42 Test Item Value Reference Range Interpretation Comments WHITE BLOOD CELL COUNT 6.7 K/ L 3.5-10.5 (BEAKER) (test code = 775) RED BLOOD CELL COUNT (BEAKER) 3.76 M/ L 3.93-5.22 L (test code = 761) HEMOGLOBIN (BEAKER) (test 10.6 GM/DL 11.2-15.7 L Ba dge 710682 code = 410) HEMATOCRIT (BEAKER) (test 32.1 % 34.1-44.9 L code = 411) MEAN CORPUSCULAR VOLUME 85 fL 79-95 (BEAKER) (test code = 753) MEAN CORPUSCULAR HEMOGLOBIN 28.2 pg 25.6-32.2 (BEAKER) (test code = 751) MEAN CORPUSCULAR HEMOGLOBIN 33.0 GM/DL 32.2-35.5 CONC (BEAKER) (test code = 752) RED CELL DISTRIBUTION WIDTH 15.1 % 11.7-14.4 H (BEAKER) (test code = 412) PLATELET COUNT (BEAKER) (test 228 K/CU MM 150-450 code = 756) MEAN PLATELET VOLUME (BEAKER) 10.6 fL 9.4-12.3 (test code = 754) NUCLEATED RED BLOOD CELLS 0 /100 WBC 0-0 (BEAKER) (test code = 413) POCT-GLUCOSE [id number] 21:17:25 Test Item Value Reference Range Interpretation Comments POC-GLUCOSE METER 110 mg/dL 70-110 : TESTED A T [place] [address] ([facility]) (test [facility] = [facility] 1538) [address]: Lead Tank Mechanic/Techni felipe ID = [id number] for [facility] POC ACTIVATED CLOTTING [id number] 20:51:44 Test Item Value Reference Range Interpretation Comments Activated Clotting Time 266 sec : 74 -137 seconds, (test code = 3184-9) Baselin e: TESTED AT [facility] [address] [place] [place] [address], [address]: Lead Tank Mechanic/Techni felipe ID = [id number] for Ro llin, Nidia [facility] CenterPOCT-[id number] 20:51:44 Test Item Value Reference Range Interpretation Comments ACTIVATED CLOTTING TIME 266 sec : 74 -137 seconds, (BEAKER) (test code = Baseli ne: TESTED AT 441) [facility] [address] [place] [place] [address], [address]: Lead Tank Mechanic/Techni felipe ID = [id number] for Ro llin, Nidia [id number] 20:51:44 Test Item Value Reference Range Interpretation Comments ACTIVATED CLOTTING TIME 325 sec : 74 -137 seconds, (BEAKER) (test code = Baseli ne: TESTED AT 441) [address], [address]: Lead Tank Mechanic/Techni felipe ID = [id number] for Ro llin, Nidia [id number] 20:51:44 Test Item Value Reference Range Interpretation Comments ACTIVATED CLOTTING TIME 331 sec : 74 -137 seconds, ([facility]) (test code = Xochilt ne: TESTED AT 441) [facility] [address] [facility], [address]: Lead Tank Mechanic/Techni felipe ID = [id number] for Nidia Cota HIGH SENSITIVITY TROPONIN [id number] 15:04:18 Test Item Value Reference Range Interpretation Comments HIGH SENSITIVITY TROPONIN I (test 925 pg/ml <=17 HH code = 9101048) Lead Tank Mechanic ID - ADMINThe CARDIOLOGY NURSE STAT High Sensitivity Troponin-I results should be used in conjunction with other diagnostic information such as ECG, clinical observations and information, and patientsymptoms to aid in the diagnosis of ND. [id number] 13:10:33 Test Item Value Reference Range Interpretation Comments PARTIAL THROMBOPLASTIN TIME 81.9 seconds 22.5-36.0 H ([facility]) (test code = 760) POCT-GLUCOSE [id number] 12:20:29 Test Item Value Reference Range Interpretation Comments POC-GLUCOSE METER 159 mg/dL 70-110 H : TESTED A T [facility] 6720 ([facility]) (test code = [facility], 1538) [address]: Lead Tank Mechanic/Techni felipe ID = [id number] for Annika Griffith HEMOGLOBIN [id number] 08:53:10 Test Item Value Reference Range Interpretation Comments HEMOGLOBIN A1C 5.7 % See_Comment H [Automated m essage] ELECTROPHORESIS ([facility]) The system which (test code = 3811) generated this result transmitted ref erence range: <=5.6%. The reference range was not used to int erpret this result as normal/abnormal . "The A1c is measured using a NGSP-certified method. HbA1c value equal to or greater than 6.5% as thediagnosis cutoff for diabetes. An HbA1c value of 5.7- 6.4% indicates increased risk for diabetes (prediabetes)."Lead Tank Mechanic ID - ADM [id number] 08:49:44 Test Item Value Reference Range Interpretation Comments MAGNESIUM ([facility]) 1.9 mg/dL 1.6-2.6 Specimen slightly (test code = 627) hemolyzed Lead Tank Mechanic ID - ADMINPOCT-GLUCOSE [id number] 06:52:28 Test Item Value Reference Range Interpretation Comments POC-GLUCOSE METER 143 mg/dL 70-110 H : TESTED A T [facility] 6720 (BEAKER) (test code = [place], 1538) [address]: Lead Tank Mechanic/Techni felipe ID = [id number] for SHAI MERCADO BASIC METABOLIC [id number] 06:48:42 Test Item Value Reference Range Interpretation Comments SODIUM (BEAKER) 126 meq/L 136-145 L (test code = 381) POTASSIUM 3.2 meq/L 3.5-5.1 L Specimen slight ly (BEAKER) (test hemolyzed code = 379) CHLORIDE (BEAKER) 91 meq/L 98-107 L (test code = 382) CO2 (BEAKER) 21 meq/L 22-29 L (test code = 355) BLOOD UREA 18 mg/dL 7-21 NITROGEN (BEAKER) (test code = 354) CREATININE 0.98 mg/dL 0.57-1.25 Specimen slight ly (BEAKER) (test hemolyzed code = 358) GLUCOSE RANDOM 128 mg/dL 70-105 H (BEAKER) (test code = 652) CALCIUM (BEAKER) 9.1 mg/dL 8.4-10.2 (test code = 697) EGFR (BEAKER) 63 Interpretatio n of eGFR (test code = mL/min/1.73 values Stage D escription 1092) sq m Result G1 Leigha l or high >=90 G2 Mildly decreased 60-89 G3a Mildl y to moderately 45-5 9 G3b Moderately to s everely 30-44 G4 Severl y decreased 15-29 G5 Kidney failure <15Reported eGF R is based on the CKD-EPI 2021 equation that d oes not use a race coefficientEsti mated GFR is not as accur ate as Creatinine Lay merino in predicting glom erular filtration rate . Estimated GFR is not appl icable for dialysis patien ts Lead Tank Mechanic ID - ADMINLIPID [id number] 06:48:42 Test Item Value Reference Range Interpretation Comments TRIGLYCERIDES (BEAKER) 64 mg/dL Speci men slightly (test code = 540) hemolyzed CHOLESTEROL (BEAKER) 182 mg/dL Specime n slightly (test code = 631) hemolyzed HDL CHOLESTEROL (BEAKER) 56 mg/dL (test code = 976) LDL CHOLESTEROL 113 mg/dL CALCULATED (BEAKER) (test code = 633) Triglyceride Reference Range: Low Risk <150 Borderline 150-199 High Risk 200- 499 Very High Risk >=500Cholesterol Reference Range: Low Risk <200 Borderline 200-239 High Risk >240HDL Cholesterol Reference Range: Low Risk >=60 High Risk <40LDL Cholesterol Reference Range: Optimal <100 Near Optimal 100-129 Borderline 130-159 High 160-189 Very High >=190 Lead Tank Mechanic ID - [id number] 06:47:04 Test Item Value Reference Range Interpretation Comments PARTIAL THROMBOPLASTIN TIME 80.4 seconds 22.5-36.0 H (BEAKER) (test code = 760) CBC (HEMOGRAM ONLY)2023-02-05 06:34:43 Test Item Value Reference Range Interpretation Comments WHITE BLOOD CELL COUNT (BEAKER) 11.3 K/ L 3.5-10.5 H (test code = 775) RED BLOOD CELL COUNT (BEAKER) 4.84 M/ L 3.93-5.22 (test code = 761) HEMOGLOBIN (BEAKER) (test code = 13.6 GM/DL 11.2-15.7 410) HEMATOCRIT (BEAKER) (test code = 39.7 % 34.1-44.9 411) MEAN CORPUSCULAR VOLUME (BEAKER) 82 fL 79-95 (test code = 753) MEAN CORPUSCULAR HEMOGLOBIN 28.1 pg 25.6-32.2 (BEAKER) (test code = 751) MEAN CORPUSCULAR HEMOGLOBIN CONC 34.3 GM/DL 32.2-35.5 (BEAKER) (test code = 752) RED CELL DISTRIBUTION WIDTH 15.1 % 11.7-14.4 H (BEAKER) (test code = 412) PLATELET COUNT (BEAKER) (test 339 K/CU MM 150-450 code = 756) MEAN PLATELET VOLUME (BEAKER) 10.7 fL 9.4-12.3 (test code = 754) NUCLEATED RED BLOOD CELLS 0 /100 WBC 0-0 (BEAKER) (test code = 413) [id number] 00:30:37 Test Item Value Reference Range Interpretation Comments PARTIAL THROMBOPLASTIN TIME 64.1 seconds 22.5-36.0 H (BEAKER) (test code = 760) POCT-GLUCOSE [id number] 22:02:30 Test Item Value Reference Range Interpretation Comments POC-GLUCOSE METER 216 mg/dL 70-110 H : TESTED A T [facility] 6720 (BEAKER) (test code = [facility], 1538) [address]: Lead Tank Mechanic/Techni felipe ID = [id number] for SHAI MERCADO POCT-GLUCOSE [id number] 18:39:14 Test Item Value Reference Range Interpretation Comments POC-GLUCOSE METER 179 mg/dL 70-110 H : TESTED A T [facility] 6720 (BEAKER) (test code = [facility], 1538) [address]: Lead Tank Mechanic/Techni felipe ID = [id number] for Annika Griffith BASIC METABOLIC [id number] 17:50:26 Test Item Value Reference Range Interpretation Comments SODIUM (BEAKER) 129 meq/L 136-145 L (test code = 381) POTASSIUM 3.3 meq/L 3.5-5.1 L Specimen slight ly (BEAKER) (test hemolyzed code = 379) CHLORIDE (BEAKER) 93 meq/L 98-107 L (test code = 382) CO2 (BEAKER) 19 meq/L 22-29 L (test code = 355) BLOOD UREA 13 mg/dL 7-21 NITROGEN (BEAKER) (test code = 354) CREATININE 0.91 mg/dL 0.57-1.25 Specimen slight ly (BEAKER) (test hemolyzed code = 358) GLUCOSE RANDOM 149 mg/dL 70-105 H (BEAKER) (test code = 652) CALCIUM (BEAKER) 9.4 mg/dL 8.4-10.2 (test code = 697) EGFR (BEAKER) 69 Interpretatio n of eGFR (test code = mL/min/1.73 values Stage De scription 1092) sq m Result G1 Leigha l or high >=90 G2 Mildly decreased 60-89 G3a Mildl y to moderately 45-5 9 G3b Moderately to s everely 30-44 G4 Severl y decreased 15-29 G5 Kidney failure <15Reported eGF R is based on the CKD-EPI 2020 equation that d oes not use a race coefficientEsti mated GFR is not as accur ate as Creatinine Lay merino in predicting glom erular filtration rate . Estimated GFR is not appl icable for dialysis patien dioni Lead Tank Mechanic ID - [id number] 17:43:04 Test Item Value Reference Range Interpretation Comments PARTIAL THROMBOPLASTIN TIME 34.7 seconds 22.5-36.0 (BEAKER) (test code = 760) CBC (HEMOGRAM ONLY)2023-02-04 17:33:22 Test Item Value Reference Range Interpretation Comments WHITE BLOOD CELL COUNT (BEAKER) 13.0 K/ L 3.5-10.5 H (test code = 775) RED BLOOD CELL COUNT (BEAKER) 5.06 M/ L 3.93-5.22 (test code = 761) HEMOGLOBIN (BEAKER) (test code = 13.6 GM/DL 11.2-15.7 410) HEMATOCRIT (BEAKER) (test code = 42.9 % 34.1-44.9 411) MEAN CORPUSCULAR VOLUME (BEAKER) 85 fL 79-95 (test code = 753) MEAN CORPUSCULAR HEMOGLOBIN 26.9 pg 25.6-32.2 (BEAKER) (test code = 751) MEAN CORPUSCULAR HEMOGLOBIN CONC 31.7 GM/DL 32.2-35.5 L (BEAKER) (test code = 752) RED CELL DISTRIBUTION WIDTH 14.9 % 11.7-14.4 H (BEAKER) (test code = 412) PLATELET COUNT (BEAKER) (test 383 K/CU MM 150-450 code = 756) MEAN PLATELET VOLUME (BEAKER) 9.9 fL 9.4-12.3 (test code = 754) NUCLEATED RED BLOOD CELLS 0 /100 WBC 0-0 (BEAKER) (test code = 413) [id number] 13:19:18 Test Item Value Reference Range Interpretation Comments ACTIVATED CLOTTING TIME 480 sec : 74 -137 seconds, (BEAKER) (test code = Baseli ne: TESTED AT 441) [facility] [address] [facility] [place], [address]: Lead Tank Mechanic/Techni felipe ID = [id number] for SA LINMICHAEL CISSE [id number] 00:00:00Ordered by an unspecified provider.[facility] [id number] 16:44:20 Test Item Value Reference Range Interpretation Comments Case number (test code = [id number]) Surgical pathology See link below for report (test code = PDF Lab Report 2255) Result status (test code This is Final Report = [id number]) for [id number] [facility] [id number] 16:44:20 Test Item Value Reference Range Interpretation Comments Case number (test code = [id number]) Surgical pathology See link below for report (test code = PDF Lab Report 2255) Result status (test code This is Final Report = [id number]) [address] [id number] 16:44:20 Test Item Value Reference Range Interpretation Comments Case number (test code = [id number]) Surgical pathology See link below for report (test code = PDF Lab Report 2255) Result status (test code This is Final Report = [id number]) for [id number] [address] [id number] 16:44:20 Test Item Value Reference Range Interpretation Comments Case number (test code = [id number]) Surgical pathology See link below for report (test code = PDF Lab Report 2255) Result status (test code This is Final Report = [id number]) for [id number] [address] [id number] 16:44:20 Test Item Value Reference Range Interpretation Comments Case number (test code = [id number]) Surgical pathology See link below for report (test code = PDF Lab Report 2255) Result status (test code This is Final Report = [id number]) for [id number] [address] [id number] 16:44:20 Test Item Value Reference Range Interpretation Comments Case number (test code = [id number]) Surgical pathology See link below for report (test code = PDF Lab Report 2255) Result status (test code This is Final Report = [id number]) for [id number] [facility] [id number] 13:34:00 Test Item Value Reference Range Interpretation Comments POC glucose (test code 192 mg/dL 65-99 H Opera tor Name: = 14984-6) Michelle Patton Device ID: [id number] Lab Interpretation Abnormal (test code = 48664-2) [facility] [id number] 13:34:00 Test Item Value Reference Range Interpretation Comments POC glucose (test code 192 mg/dL 65-99 H Opera tor Name: = 78034-4) Michelle Patton Device ID: [id number] Lab Interpretation Abnormal (test code = 63237-1) [facility]2023-03-13 13:34:00 Test Item Value Reference Range Interpretation Comments POC glucose (test code 192 mg/dL 65-99 H Opera tor Name: = 61894-6) Michelle Patton Device ID: [id number] Lab Interpretation Abnormal (test code = 35306-2) [facility]2023-03-13 13:34:00 Test Item Value Reference Range Interpretation Comments POC glucose (test code 192 mg/dL 65-99 H Opera tor Name: = 07701-8) Michelle Patton Device ID: [id number] Lab Interpretation Abnormal (test code = 95797-4) [facility]2023-03-13 13:34:00 Test Item Value Reference Range Interpretation Comments POC glucose (test code 192 mg/dL 65-99 H Opera tor Name: = 21905-0) Michelle Patton Device ID: [id number] Lab Interpretation Abnormal (test code = 64779-2) [facility]2023-03-13 13:34:00 Test Item Value Reference Range Interpretation Comments POC glucose (test code 192 mg/dL 65-99 H Opera tor Name: = [id number]) Michelle Patton Device ID: [id number] Lab Interpretation Abnormal (test code = 86616-9) [facility]2023-03-11 05:41:52EXAMINATION: US HEPATIC CLINICAL HISTORY: eval for [...] diameter is 12 mm. 4.No perihepatic ascites. [id number] Umtzzvi4979-96-90 05:41:52 EXAMINATION: US HEPATIC CLINICAL HISTORY: eval for potential [...] diameter is 12 mm. 4.No perihepatic ascites. [id number] (w Contrast, Strain and 3D if needed)2022-05-21 18:57:50 Test Item Value Reference Range Interpretation Comments Ao Root Diameter 2.47 cm (test code = 6886276024) AoV Area, Vmax 2.17 cm2 >=1.5 [Automated (test code = message] The 1650145200) system which generated this result transmitted reference range : >=1.5. The reference range was not used to interpret this result as normal/abnormal . AoV Area, VTI 2.37 cm2 (test code = 6667346974) AoV Mean PG (test 3.69 mmHg code = 1996585242) AoV Peak PG (test 7.79 mmHg code = 3039997066) AoV Vmax (test 1.40 m/s code = 5988111547) AoV VTI (test code 0.31 m = 2942139769) BSA Cox (test 1.68 m2 code = 5338340333) BSA (test code = 1.64 m2 6405925069) IVS,d (test code = 0.90 cm 0.6-0.9 9691810583) IVS/LVPW,2D (test 1.05 code = 4987393667) Left Atrium 5.09 cm Dimension Anterior (test code = 2922587629) LV,d (test code = 4.93 cm 0883382329) LV EF,2D (test 68.15 % code = 9813123700) LV EF,A2C (test 64.40 % code = 7882368756) LV EF,A4C (test 67.19 % code = 9651688802) LV EF,BP (test 66.16 % code = 0013529353) [place]akesh [place],d A2C 7.43 cm (test code = 2058995275) Rakesh [place],d A4C 7.77 cm (test code = 7350705748) Rakesh [place],s A2C 6.18 cm (test code = 6173130522) Rakesh [place],s A4C 6.37 cm (test code = 4408364135) LV,s (test code = 3.37 cm 7939303689) LV SV,A2C (test 47.58 % code = 6863165534) LV SV,A4C (test 61.18 % code = 8731535042) LV SV,BP (test 55.46 % code = 6491220893) LV Vol,d A2C (test 73.88 mL code = 8537355252) LV Vol,d A4C (test 91.06 ml code = 9120867943) LV Vol,d BP (test 83.82 ml code = 6554497371) LV Vol,s A2C (test 26.30 mL code = 1303799421) LV Vol,s A4C (test 29.88 ml code = 7258956464) LV Vol,s BP (test 28.36 nl code = 1690786372) LVOT area (test 2.98 cm2 code = 5613965009) LVOT Diam,S (test 1.95 cm code = 0108556295) LVOT Vmax (test 1.02 m/s code = 3204839897) LVOT VTI (test 0.25 m code = 3556723898) LVPWD,d (test code 0.85 cm 0.60-1.19 = 9292253854) TR Vpeak (test 2.87 m/s code = 2310101013) MV E A ratio (test 2.90 code = 7691812526) TR pk grad (test 33.4 mmHg code = 1210442058) AoV area i VTI BSA 1.45 cm2/m2 >=0.85 [Automat ed [place] (test code message] T he = 5684397633) system which generated this result transmitted reference range : >=0.85. The reference range was not used to interpret this result as normal/abnormal . LV SI MOD BP BSA 33.79 ml/m2 Radha (test code = 6552390519) LV Vol Index s 51.07 ml/m2 bpmod BSA [place] (test code = 4046252710) PV Vmn (test code 17.28 m/s = 7068371844) BMI (test code = 24.09 kg/m2 8841175876) E wave decelartion 245.16 See_Comment [Automat ed time (test code = message] T he 2013846183) system which generated this result transmitted reference range : 200 msec. The reference range was not used to interpret this result as normal/abnormal . MV Peak A Guillermo 0.45 m/s (test code = 1309507270) MV valve area p 3.09 cm2 1/2 method (test code = 0476326244) MV Peak E Guillermo 1.29 m/s (test code = 3132765085) MV stenosis 71.10 ms pressure 1/2 time (test code = 6038474169) LVOT stroke volume 0.75 cm3 (test code = 7632830587) AV LVOT peak 4.17 mmHg gradient (test code = 6915664678) Ao Root Diameter 2.47 cm (test code = 8338478277) MV mean gradient 2.73 mmHg (test code = 0750676083) LV SYS VOL (test 46.28 ml 14-42 code = 1854865629) LV GRESHAM VOL (test 114.31 ml 46-106 code = 4686899885) LA area s A4C 29.13 cm2 (test code = 3908283208) LV SI Teich 2D 41.45 ml/m2 (test code = 1315687432) LV SV Teich 2D 68.03 ml (test code = 8412628832) LV Vol s Teich 46.28 ml PSAX (test code = 9756795193) LVOT SI (test code 45.10 ml/m2 = 6882437272) MR peak grad (test 8.42 mmHg code = 7182536875) MV Vmax (test code 1.45 m = 5626766259) MV VTI Tips (test 0.38 m code = 0342228115) BSA [place] (test 1.67 m2 code = 6073813539) AoV Vmn (test code 0.88 m/s = 7001458842) IVS s 2D (test 1.44 cm code = 1981145188) LV FS Teich 2D 31.71 (test code = 0803747134) MV AE ratio (test 0.35 code = 5901371950) LV FS Cube 2D 31.71 (test code = 4286291978) LVOT Vmn (test 0.76 code = 6922506491) Pt Size (test code 160.02 = 9877472457) Pt Wt (test code = 61.69 0967131834) Aov area Vmn (test 2.56 cm2 code = 0547634856) LA A_P score P 4.87 (test code = 1843883237) LVOT mean grad 2.52 mmHg (test code = 5569919260) 85 of MPHR (test 129.33 code = 4763417572) AoV area I VMN bsa 1.56 cm2/m2 (test code = 8382180117) Calc MPHR (test 152.15 bpm code = 6706271302) IVS pct thck PLAX 60.66 % (test code = 1902896563) LV SI Cube 2D 49.68 ml/m2 (test code = 0406467441) LV SV Cube 2D 81.55 ml (test code = 8176671029) LV vol d cube 2D 119.66 ml (test code = 5692613526) LV vol s cube 2D 38.11 ml (test code = 5486021964) LVPW pct thck PLAX 60.93 % (test code = 7843636324) LVPW s PLAX (test 1.37 cm code = 5457757824) MV Decel slope 5.27 m/s2 (test code = 4036073776) Pred Exer Dur R1 7.06 (test code = 1784782411) Pred METS R1 (test 5.88 code = 1359608421) LA Vol MOD A4C 106.72 ml (test code = 9194654891) Velocity Ratio 0.73 m/s (V1/V2) (test code = 4689) EF (test code = 60 % 5695082853) E/A ratio (test 2.87 code = 6273754091) LV Systolic Volume 16.04 mL/m2 Index (test code = 2002869418) LV Diastolic 45.05 mL/m2 Volume Index (test code = 4470980483) LVOT VTI (CM) 25.00 cm (test code = 6193597360) RVSP (test code = 38.40 See_Comment [Automate d 6252818688) message] The system which generated this result transmitted reference range : 40.00 mmHg. The reference range was not used to interpret this result as normal/abnormal . RA pressure (test 5.0 mmHg code = 5884825489) BINDU (test code = BINDU) Left Ventricle: [...] Technical difficulties due to patient's body habitus. Ao Root Diameter 2.47 cm (test code = 4026404964) AoV Area, Vmax 2.17 cm2 >=1.5 (test code = 7878353415) AoV Area, VTI 2.37 cm2 (test code = 6470914978) AoV Mean PG (test 3.69 mmHg code = 3492459440) AoV Peak PG (test 7.79 mmHg code = 1529081337) AoV Vmax (test 1.40 m/s code = 0351309886) AoV VTI (test code 0.31 m = 7615474258) BSA Cox (test 1.68 m2 code = 7765218431) BSA (test code = 1.64 m2 6593894370) IVS,d (test code = 0.90 cm 0.6-0.9 3556155814) IVS/LVPW,2D (test 1.05 code = 1004216511) Left Atrium 5.09 cm Dimension Anterior (test code = 6422616335) LV,d (test code = 4.93 cm 9908479882) LV EF,2D (test 68.15 % code = 9867581236) LV EF,A2C (test 64.40 % code = 3604323083) LV EF,A4C (test 67.19 % code = 7192187559) LV EF,BP (test 66.16 % code = 3082005022) Rakesh [place],d A2C 7.43 cm (test code = 6483027902) Rakesh [place],d A4C 7.77 cm (test code = 7804978355) Rakesh [place],s A2C 6.18 cm (test code = 8453689436) Rakesh [place],s A4C 6.37 cm (test code = 0575265787) LV,s (test code = 3.37 cm 6124779422) LV SV,A2C (test 47.58 % code = 0704645743) LV SV,A4C (test 61.18 % code = 1781895359) LV SV,BP (test 55.46 % code = 8483375923) LV Vol,d A2C (test 73.88 mL code = 1237676558) LV Vol,d A4C (test 91.06 ml code = 9371948960) LV Vol,d BP (test 83.82 ml code = 0265352292) LV Vol,s A2C (test 26.30 mL code = 8523021471) LV Vol,s A4C (test 29.88 ml code = 8367143008) LV Vol,s BP (test 28.36 nl code = 6297950939) LVOT area (test 2.98 cm2 code = 5031269488) LVOT Diam,S (test 1.95 cm code = 8198715714) LVOT Vmax (test 1.02 m/s code = 7649623670) LVOT VTI (test 0.25 m code = 2824613246) LVPWD,d (test code 0.85 cm 0.60-1.19 = 2788995594) TR Vpeak (test 2.87 m/s code = 9815665359) MV E A ratio (test 2.90 code = 3451059799) TR pk grad (test 33.4 mmHg code = 8054893777) AoV area i VTI BSA 1.45 cm2/m2 >=0.85 Radha (test code = 7817675257) LV SI MOD BP BSA 33.79 ml/m2 Radha (test code = 5471830339) LV Vol Index s 51.07 ml/m2 bpmod BSA [place] (test code = 4676888686) PV Vmn (test code 17.28 m/s = 8655663859) BMI (test code = 24.09 kg/m2 6975662091) E wave decelartion 245.16 See_Comment [Automat ed time (test code = message] T he 3939329663) system which generated this result transmitted reference range : 200 msec. The reference range was not used to interpret this result as normal/abnormal . MV Peak A Guillermo 0.45 m/s (test code = 3597462457) MV valve area p 3.09 cm2 1/2 method (test code = 4434187624) MV Peak E Guillermo 1.29 m/s (test code = 1103113189) MV stenosis 71.10 ms pressure 1/2 time (test code = 0932583262) LVOT stroke volume 0.75 cm3 (test code = 4185488718) AV LVOT peak 4.17 mmHg gradient (test code = 1302819124) Ao Root Diameter 2.47 cm (test code = 8983053385) MV mean gradient 2.73 mmHg (test code = 5527877091) LV SYS VOL (test 46.28 ml 14-42 code = 4306709816) LV GRESHAM VOL (test 114.31 ml 46-106 code = 4405304076) LA area s A4C 29.13 cm2 (test code = 2370917802) LV SI Teich 2D 41.45 ml/m2 (test code = 6757152893) LV SV Teich 2D 68.03 ml (test code = 4396093223) LV Vol s Teich 46.28 ml PSAX (test code = 5009730867) LVOT SI (test code 45.10 ml/m2 = 1331916160) MR peak grad (test 8.42 mmHg code = 6302574164) MV Vmax (test code 1.45 m = 9797956329) MV VTI Tips (test 0.38 m code = 1758380236) BSA [place] (test 1.67 m2 code = 5052802875) AoV Vmn (test code 0.88 m/s = 0456760270) IVS s 2D (test 1.44 cm code = 5424362028) LV FS Teich 2D 31.71 (test code = 4468693159) MV AE ratio (test 0.35 code = 7454630398) LV FS Cube 2D 31.71 (test code = 3931605034) LVOT Vmn (test 0.76 code = 2577118400) Pt Size (test code 160.02 = 4413915357) Pt Wt (test code = 61.69 7937672934) Aov area Vmn (test 2.56 cm2 code = 0666663548) LA A_P score P 4.87 (test code = 1450092558) LVOT mean grad 2.52 mmHg (test code = 5547940990) 85 of MPHR (test 129.33 code = 3393359647) AoV area I VMN bsa 1.56 cm2/m2 (test code = 9399746503) Calc MPHR (test 152.15 bpm code = 8067792494) IVS pct thck PLAX 60.66 % (test code = 4304148372) LV SI Cube 2D 49.68 ml/m2 (test code = 4353856806) LV SV Cube 2D 81.55 ml (test code = 0409572594) LV vol d cube 2D 119.66 ml (test code = 6405605873) LV vol s cube 2D 38.11 ml (test code = 3290420723) LVPW pct thck PLAX 60.93 % (test code = 8458064683) LVPW s PLAX (test 1.37 cm code = 8049183895) MV Decel slope 5.27 m/s2 (test code = 1400149060) Pred Exer Dur R1 7.06 (test code = 0569540616) Pred METS R1 (test 5.88 code = 4249328513) LA Vol MOD A4C 106.72 ml (test code = 8712186888) Velocity Ratio 0.73 m/s (V1/V2) (test code = 4689) EF (test code = 60 % 4969681833) E/A ratio (test 2.87 code = 1966101364) LV Systolic Volume 16.04 mL/m2 Index (test code = 8811962803) LV Diastolic 45.05 mL/m2 Volume Index (test code = 8866746943) LVOT VTI (CM) 25.00 cm (test code = 2216655734) RVSP (test code = 38.40 See_Comment [Automate d 1251528202) message] The system which generated this result transmitted reference range : 40.00 mmHg. The reference range was not used to interpret this result as normal/abnormal . RA pressure (test 5.0 mmHg code = 5517623578) BINDU (test code = BINDU) Left Ventricle: [...] difficulties due to patient's body habitus. [facility] ([facility], Strain and 3D if needed)2022-05-21 18:57:50 Test Item Value Reference Range Interpretation Comments Ao Root Diameter 2.47 cm (test code = 7707974645) AoV Area, Vmax 2.17 cm2 >=1.5 (test code = 5056176570) AoV Area, VTI 2.37 cm2 (test code = 0320971904) AoV Mean PG (test 3.69 mmHg code = 7060897345) AoV Peak PG (test 7.79 mmHg code = 2650737353) AoV Vmax (test 1.40 m/s code = 4133773081) AoV VTI (test code 0.31 m = 8657309584) BSA Cox (test 1.68 m2 code = 3244308223) BSA (test code = 1.64 m2 0344695561) IVS,d (test code = 0.90 cm 0.6-0.9 5172988122) IVS/LVPW,2D (test 1.05 code = 2319290747) Left Atrium 5.09 cm Dimension Anterior (test code = 3121435969) LV,d (test code = 4.93 cm 3872789185) LV EF,2D (test 68.15 % code = 8353500322) LV EF,A2C (test 64.40 % code = 3468080607) LV EF,A4C (test 67.19 % code = 4831575012) LV EF,BP (test 66.16 % code = 2015489328) [place],d A2C 7.43 cm (test code = 3956582290) Rakesh [place],d A4C 7.77 cm (test code = 7655216065) Rakesh [place],s A2C 6.18 cm (test code = 9935500283) Rakesh [place],s A4C 6.37 cm (test code = 6046111640) LV,s (test code = 3.37 cm 6154059100) LV SV,A2C (test 47.58 % code = 5892581112) LV SV,A4C (test 61.18 % code = 4407433819) LV SV,BP (test 55.46 % code = 8543976452) LV Vol,d A2C (test 73.88 mL code = 7638948062) LV Vol,d A4C (test 91.06 ml code = 5403604497) LV Vol,d BP (test 83.82 ml code = 5155803699) LV Vol,s A2C (test 26.30 mL code = 3546688194) LV Vol,s A4C (test 29.88 ml code = 8135000965) LV Vol,s BP (test 28.36 nl code = 5202201636) LVOT area (test 2.98 cm2 code = 6316412980) LVOT Diam,S (test 1.95 cm code = 6903438255) LVOT Vmax (test 1.02 m/s code = 7265431111) LVOT VTI (test 0.25 m code = 5496120201) LVPWD,d (test code 0.85 cm 0.60-1.19 = 9833074494) TR Vpeak (test 2.87 m/s code = 5157853848) MV E A ratio (test 2.90 code = 7151442347) TR pk grad (test 33.4 mmHg code = 3998912711) AoV area i VTI BSA 1.45 cm2/m2 >=0.85 [place] (test code = 5425866670) LV SI MOD BP BSA 33.79 ml/m2 [place] (test code = 2173973286) LV Vol Index s 51.07 ml/m2 bpmod BSA [place] (test code = 2550619621) PV Vmn (test code 17.28 m/s = 6279858523) BMI (test code = 24.09 kg/m2 9436692201) E wave decelartion 245.16 See_Comment [Automat ed time (test code = message] T he 8598680559) system which generated this result transmitted reference range : 200 msec. The reference range was not used to interpret this result as normal/abnormal . MV Peak A Guillermo 0.45 m/s (test code = 0426333633) MV valve area p 3.09 cm2 1/2 method (test code = 0758723072) MV Peak E Guillermo 1.29 m/s (test code = 5771371166) MV stenosis 71.10 ms pressure 1/2 time (test code = 6544625464) LVOT stroke volume 0.75 cm3 (test code = 7060275822) AV LVOT peak 4.17 mmHg gradient (test code = 1034526323) Ao Root Diameter 2.47 cm (test code = 2562656426) MV mean gradient 2.73 mmHg (test code = 6519719871) LV SYS VOL (test 46.28 ml 14-42 code = 1029814255) LV GRESHAM VOL (test 114.31 ml 46-106 code = 2757061883) LA area s A4C 29.13 cm2 (test code = 1956326594) LV SI Teich 2D 41.45 ml/m2 (test code = 0052482832) LV SV Teich 2D 68.03 ml (test code = 1225650407) LV Vol s Teich 46.28 ml PSAX (test code = 4966189450) LVOT SI (test code 45.10 ml/m2 = 2893618626) MR peak grad (test 8.42 mmHg code = 7023903922) MV Vmax (test code 1.45 m = 6235354457) MV VTI Tips (test 0.38 m code = 7027918153) BSA [place] (test 1.67 m2 code = 6163662526) AoV Vmn (test code 0.88 m/s = 0377742024) IVS s 2D (test 1.44 cm code = 2297606612) LV FS Teich 2D 31.71 (test code = 7249560726) MV AE ratio (test 0.35 code = 9169708076) LV FS Cube 2D 31.71 (test code = 5043617731) LVOT Vmn (test 0.76 code = 7284567058) Pt Size (test code 160.02 = 3687571913) Pt Wt (test code = 61.69 9385959493) Aov area Vmn (test 2.56 cm2 code = 9587792330) LA A_P score P 4.87 (test code = 2469375819) LVOT mean grad 2.52 mmHg (test code = 3437938141) 85 of MPHR (test 129.33 code = 4087221791) AoV area I VMN bsa 1.56 cm2/m2 (test code = 2165077218) Calc MPHR (test 152.15 bpm code = 5286658404) IVS pct thck PLAX 60.66 % (test code = 1555274690) LV SI Cube 2D 49.68 ml/m2 (test code = 4784803784) LV SV Cube 2D 81.55 ml (test code = 0837430739) LV vol d cube 2D 119.66 ml (test code = 0959627409) LV vol s cube 2D 38.11 ml (test code = 0591208245) LVPW pct thck PLAX 60.93 % (test code = 1741319413) LVPW s PLAX (test 1.37 cm code = 1844136414) MV Decel slope 5.27 m/s2 (test code = 6568883088) Pred Exer Dur R1 7.06 (test code = 9518184111) Pred METS R1 (test 5.88 code = 2236278463) LA Vol MOD A4C 106.72 ml (test code = 3502049180) Velocity Ratio 0.73 m/s (V1/V2) (test code = 4689) EF (test code = 60 % 3070173867) E/A ratio (test 2.87 code = 5448180059) LV Systolic Volume 16.04 mL/m2 Index (test code = 8477859295) LV Diastolic 45.05 mL/m2 Volume Index (test code = 8129196651) LVOT VTI (CM) 25.00 cm (test code = 9110676773) RVSP (test code = 38.40 See_Comment [Automate d 4849578992) message] The system which generated this result transmitted reference range : 40.00 mmHg. The reference range was not used to interpret this result as normal/abnormal . RA pressure (test 5.0 mmHg code = 8355603528) BINDU (test code = BINDU) Left Ventricle: [...] Technical difficulties due to patient's body habitus. [facility] 12 [id number] 04:29:44 Test Item Value Reference Range Interpretation Comments Ventricular rate (test 56 code = 253) Atrial rate (test code 56 = 255) FL interval (test code 120 = 266) QRSD [...] of 08-JUL-2020 11:10,-No significant change was found- [address]2023-03-10 04:29:44 Test Item Value Reference Range Interpretation Comments Ventricular rate (test 56 code = 253) Atrial rate (test code 56 = 255) FL interval (test code 120 = 266) QRSD [...] of 08-JUL-2020 11:10,-No significant change was found- [address]2023-03-10 04:29:44 Test Item Value Reference Range Interpretation Comments Ventricular rate (test 56 code = 253) Atrial rate (test code 56 = 255) FL interval (test code 120 = 266) QRSD [...] of 08-JUL-2020 11:10,-No significant change was found- [address]2023-03-10 04:29:44 Test Item Value Reference Range Interpretation Comments Ventricular rate (test 56 code = 253) Atrial rate (test code 56 = 255) FL interval (test code 120 = 266) QRSD [...] of 08-JUL-2020 11:10,-No significant change was found- [address]2023-03-10 04:29:44 Test Item Value Reference Range Interpretation Comments Ventricular rate (test 56 code = 253) Atrial rate (test code 56 = 255) FL interval (test code 120 = 266) QRSD [...] of 08-JUL-2020 11:10,-No significant change was found- [address]2023-03-10 04:29:44 Test Item Value Reference Range Interpretation Comments Ventricular rate (test 56 code = 253) Atrial rate (test code 56 = 255) FL interval (test code 120 = 266) QRSD [...] of 08-JUL-2020 11:10,-No significant change was found- [facility] RBC, 2 [id number] 21:17:00 Test Item Value Reference Range Interpretation Comments Product name (test code Red Cells AS1 Leukored = 25) Irrad Unit number (test code [id number] = 7262289) Product code (test code W8189G25 = 3092) Dispense status (test Transfused code = 24) Blood expiration date 036254947050 (test code = 302) Blood type code (test 5100 code = 308) Blood type (test code = O POSITIVE 1314) Compatibility (test Compatible code = 6400) BINDU (test code = BINDU) LAB: [facility] [id number] 21:17:00 Test Item Value Reference Range Interpretation Comments Product name (test code Red Cells AS1 Leukored = 25) Irrad Unit number (test code [id number] = 0251336) Product code (test code K1426T39 = 3092) Dispense status (test Transfused code = 24) Blood expiration date (test code = 302) Blood type code (test 5100 code = 308) Blood type (test code = O POSITIVE 1314) Compatibility (test Compatible code = 6400) BINDU (test code = BINDU) LAB: [facility]. [facility], 2 [id number] 21:17:00 Test Item Value Reference Range Interpretation Comments Product name (test code Red Cells AS1 Leukored = 25) Irrad Unit number (test code [id number] = 0601674) Product code (test code F7818A87 = 3092) Dispense status (test Transfused code = 24) Blood expiration date (test code = 302) Blood type code (test 5100 code = 308) Blood type (test code = O POSITIVE 1314) Compatibility (test Compatible code = 6400) BINDU (test code = BINDU) LAB: +[facility]. [facility], 2 [id number] 21:17:00 Test Item Value Reference Range Interpretation Comments Product name (test code Red Cells AS1 Leukored = 25) Irrad Unit number (test code [id number] = 6273886) Product code (test code L2381M78 = 3092) Dispense status (test Transfused code = 24) Blood expiration date (test code = 302) Blood type code (test 5100 code = 308) Blood type (test code = O POSITIVE 1314) Compatibility (test Compatible code = 6400) BINDU (test code = BINDU) LAB: +[facility]. [facility], 2 [id number] 21:17:00 Test Item Value Reference Range Interpretation Comments Product name (test code Red Cells AS1 Leukored = 25) Irrad Unit number (test code [id number] = 9913180) Product code (test code I7774N02 = 3092) Dispense status (test Transfused code = 24) Blood expiration date (test code = 302) Blood type code (test 5100 code = 308) Blood type (test code = O POSITIVE 1314) Compatibility (test Compatible code = 6400) BINDU (test code = BINDU) [facility]: [facility] [id number] 21:17:00 Test Item Value Reference Range Interpretation Comments Product name (test code Red Cells AS1 Leukored = 25) Irrad Unit number (test code [id number] = 9731350) Product code (test code X5588U14 = 3092) Dispense status (test Transfused code = 24) Blood expiration date (test code = 302) Blood type code (test 5100 code = 308) Blood type (test code = O POSITIVE 1314) Compatibility (test Compatible code = 6400) BINDU (test code = BINDU) LAB: +[facility] [id number] 19:59:35EXAM: CT ABDOMEN PELVIS W CONTRAST INDICATION: Abdominal pain acute nonlocalized COMPARISON: None. TECHNIQUE: After administration of iodinated contrast intravenously, axial CT images of the abdomen and pelvis were obtained. Coronal and sagittal reformations were obtained. Iterative reconstruction and/or automated exposure control techniques were employed to reduce radiation dose. 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 Mild arthrosis bilateral sacroiliac joints. Chondrocalcinosis [...] 9, T11-L1, and right greater trochanter. [id number] [facility] Abdomen Pelvis W [id number] 19:59:35EXAM: CT ABDOMEN PELVIS W CONTRAST INDICATION: Abdominal pain acute nonlocalized COMPARISON: None. TECHNIQUE: After administration of iodinated contrast intravenously, axial CT images of the abdomen and pelvis were obtained. Coronal and sagittal reformations were obtained. Iterative reconstruction and/or automated exposure control techniques were employed to reduce radiation dose. 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 Mild arthrosis bilateral sacroiliac joints. Chondrocalcinosis [...] 9, T11-L1, and right greater trochanter. [id number] [facility] duplex venous lower [id number] 18:54:53 EXAMINATION: US DUPLEX VENOUS LOWER EXTREMITY [...] lower extremity named vessels as described above. [id number] duplex venous lower [id number] 18:54:53EXAMINATION: US DUPLEX VENOUS LOWER EXTREMITY BILATERAL CLINICAL HISTORY: swelling COMPARISON: None.TECHNIQUE: Grayscale, color Doppler, and spectral waveform analysis of the bilateral lower extremitydeep venous systems was performed. The bilateral common femoral, superficial femoral, proximal deep femoral, greater saphenous, and popliteal veins were evaluated. [...] lower extremity named vessels as described above. [id number] ED Preliminary Interpretation - Not an Order 2022-05-20 17:10:18 Test Item Value Reference Range Interpretation Comments BINDU (test code = BINDU) Soledad Arnold MD 05/21/2022 2:47 [facility] [place] Interpretation - Not an OrderPerformed by: Soledad Arnold MDAuthorized by: Soledad Arnold MD ECG reviewed by ED Physician in the absence of a naval gunfire spotter: yes Previous ECG: Previous ECG: UnavailableInterpretat ion: Interpretation: abnormal Rate: ECG rate: 56 ECG rate assessment: bradycardic Rhythm: Rhythm: sinus bradycardia Ectopy: Ectopy: none QRS: QRS axis: NormalConduction: Conduction: normal ST segments: ST segments: NormalT waves: T waves: normal Lab Interpretation Abnormal (test code = 59981-3) [facility] ED Preliminary Interpretation - Not an [id number] 17:10:18 Test Item Value Reference Range Interpretation Comments BINDU (test code = BINDU) Soledad Arnold MD 05/21/2022 2:47 [facility] [place] Interpretation - Not an OrderPerformed by: Soledad Arnold MDAuthorized by: Soledad Arnold MD ECG reviewed by ED Physician in the absence of a naval gunfire spotter: yes Previous ECG: Previous ECG: UnavailableInterpretat ion: Interpretation: abnormal Rate: ECG rate: 56 ECG rate assessment: bradycardic Rhythm: Rhythm: sinus bradycardia Ectopy: Ectopy: none QRS: QRS axis: NormalConduction: Conduction: normal ST segments: ST segments: NormalT waves: T waves: normal Lab Interpretation Abnormal (test code = 59255-5) [facility] ED Preliminary Interpretation - Not an [id number] 17:10:18 Test Item Value Reference Range Interpretation Comments BINDU (test code = BINDU) Soledad Arnold MD 05/21/2022 2:47 [facility] [place] Interpretation - Not an OrderPerformed by: Soledad Arnold MDAuthorized by: Soledad Arnold MD ECG reviewed by ED Physician in the absence of a naval gunfire spotter: yes Previous ECG: Previous ECG: UnavailableInterpretat ion: Interpretation: abnormal Rate: ECG rate: 56 ECG rate assessment: bradycardic Rhythm: Rhythm: sinus bradycardia Ectopy: Ectopy: none QRS: QRS axis: NormalConduction: Conduction: normal ST segments: ST segments: NormalT waves: T waves: normal Lab Interpretation Abnormal (test code = 89623-6) [facility] ED Preliminary Interpretation - Not an [id number] 17:10:18 Test Item Value Reference Range Interpretation Comments BINDU (test code = BINDU) Soledad Arnold MD 05/21/2022 2:47 [facility] [place] Interpretation - Not an OrderPerformed by: Soledad Arnold MDAuthorized by: Soledad Arnold MD ECG reviewed by ED Physician in the absence of a naval gunfire spotter: yes Previous ECG: Previous ECG: UnavailableInterpretat ion: Interpretation: abnormal Rate: ECG rate: 56 ECG rate assessment: bradycardic Rhythm: Rhythm: sinus bradycardia Ectopy: Ectopy: none QRS: QRS axis: NormalConduction: Conduction: normal ST segments: ST segments: NormalT waves: T waves: normal Lab Interpretation Abnormal (test code = 42451-3) [facility] ED Preliminary Interpretation - Not an [id number] 17:10:18 Test Item Value Reference Range Interpretation Comments BINDU (test code = BINDU) Soledad Arnold MD 05/21/2022 2:47 [facility] [place] Interpretation - Not an OrderPerformed by: Soledad Arnold MDAuthorized by: Soledad Arnold MD ECG reviewed by ED Physician in the absence of a naval gunfire spotter: yes Previous ECG: Previous ECG: UnavailableInterpretat ion: Interpretation: abnormal Rate: ECG rate: 56 ECG rate assessment: bradycardic Rhythm: Rhythm: sinus bradycardia Ectopy: Ectopy: none QRS: QRS axis: NormalConduction: Conduction: normal ST segments: ST segments: NormalT waves: T waves: normal Lab Interpretation Abnormal (test code = 55588-2) [facility] ED Preliminary Interpretation - Not an [id number] 17:10:18 Test Item Value Reference Range Interpretation Comments BINDU (test code = BINDU) Soledad Arnold MD 05/21/2022 2:47 [facility] [place] Interpretation - Not an OrderPerformed by: Soledad Arnold MDAuthorized by: Soledad Arnold MD ECG reviewed by ED Physician in the absence of a naval gunfire spotter: yes Previous ECG: Previous ECG: UnavailableInterpretat ion: Interpretation: abnormal Rate: ECG rate: 56 ECG rate assessment: bradycardic Rhythm: Rhythm: sinus bradycardia Ectopy: Ectopy: none QRS: QRS axis: NormalConduction: Conduction: normal ST segments: ST segments: NormalT waves: T waves: normal Lab Interpretation Abnormal (test code = 08564-3) [facility]2023-03-09 17:10:18Soledad Arnold MD 05/21/2022 2:47 PMCritical CarePerformed by: Soledad Arnold MD Authorized by: Soledad Arnold MD Critical care provider statement: Critical care time (minutes): 35 Critical care time was exclusive of: Separately billable procedures and treating other patients and teaching time Critical care was necessary to treat or prevent imminent or life-threatening deterioration of the following conditions: Circulatory failure Critical [...] of patient's condition and review of old [facility]2023-03-09 17:10:18 Soledad Arnold MD 05/21/2022 2:47 PMCritical CarePerformed by: Soledad Arnold MDAuthorized by: Soledad Arnold MD Critical care provider statement: Critical care time (minutes): 35 Critical care time was exclusive of: Separately billable procedures and treating other patients and teaching time Critical care was necessary to treat or prevent imminent or life- threatening deterioration of the following conditions: Circulatory failure Critical [...] and review of radiographic studies, pulse oximetry, re- evaluation of patient's condition and review of old [facility] urinalysis [id number] 15:20:26 Test Item Value Reference Range Interpretation Comments Color urine, POC (test Gila code = 2480003) Clarity urine, POC (test Cloudy code = 3392934) Glucose urine, POC (test Negative Negative code = 9438974) Bilirubin urine, POC Negative Negative (test code = 1186049) Ketones urine, POC (test Negative Negative code = 7730882) Specific gravity urine, 1.010 1.005-1.030 POC (test code = 3295581) Blood urine, POC (test Trace Negative A code = 0524560) pH urine, POC (test code 6.5 See_Comment [A utomated message] = 2779104) The system [employer] generated this result transmitted ref erence range: 5.0, 5.5 , 6.0, 6.5, 7.0, 7.5, 8.0, 8.5. The refere nce range was not u sed to interpret this result as normal/abnor mal. Protein urine, POC (test Negative Negative code = 0616014) Urobilinogen urine, POC <2.0 <=2.0 (test code = 1549403) Nitrite urine, POC (test Positive Negative A code = 9574467) Leukocyte esterase Large Negative A urine, POC (test code = 6005158) Lab Interpretation (test Abnormal code = 32609-8) [facility] urinalysis itvifnpz4223-17-56 15:20:26 Test Item Value Reference Range Interpretation Comments Color urine, POC (test Gila code = 9246860) Clarity urine, POC (test Cloudy code = 1322614) Glucose urine, POC (test Negative Negative code = 4722007) Bilirubin urine, POC Negative Negative (test code = 9096414) Ketones urine, POC (test Negative Negative code = 0358439) Specific gravity urine, 1.010 1.005-1.030 POC (test code = 2422201) Blood urine, POC (test Trace Negative A code = 8916772) pH urine, POC (test code 6.5 See_Comment [A utomated message] = 8592689) The system [employer] generated this result transmitted ref erence range: 5.0, 5.5 , 6.0, 6.5, 7.0, 7.5, 8.0, 8.5. The refere nce range was not u sed to interpret this result as normal/abnor mal. Protein urine, POC (test Negative Negative code = 6080977) Urobilinogen urine, POC <2.0 <=2.0 (test code = 3968479) Nitrite urine, POC (test Positive Negative A code = 9202963) Leukocyte esterase Large Negative A urine, POC (test code = 2624636) Lab Interpretation (test Abnormal code = 35692-6) [facility] urinalysis ginrsxhv9278-70-28 15:20:26 Test Item Value Reference Range Interpretation Comments Color urine, POC (test Gila code = 5574073) Clarity urine, POC (test Cloudy code = 7766587) Glucose urine, POC (test Negative Negative code = 9452626) Bilirubin urine, POC Negative Negative (test code = 8580559) Ketones urine, POC (test Negative Negative code = 2514-8) Specific gravity urine, 1.010 1.005-1.030 POC (test code = 5811-5) Blood urine, POC (test Trace Negative A code = 1724374) pH urine, POC (test code 6.5 See_Comment [A utomated message] = 5803-2) The system [employer] generated this result transmitted ref erence range: 5.0, 5.5 , 6.0, 6.5, 7.0, 7.5, 8.0, 8.5. The refere nce range was not u sed to interpret this result as normal/abnor mal. Protein urine, POC (test Negative Negative code = 04675-9) Urobilinogen urine, POC <2.0 See_Comment [Au tomated message] (test code = 44084-0) The [employer] stem which generated this result transmitted ref erence range: <=2.0. T he reference range was not used to int erpret this result as normal/abnormal . Nitrite urine, POC (test Positive Negative A code = 5802-4) Leukocyte esterase Large Negative A urine, POC (test code = 8238009) Lab Interpretation (test Abnormal code = 22152-6) [facility] urinalysis mmsgqxvq4524-85-48 15:20:26 Test Item Value Reference Range Interpretation Comments Color urine, POC (test Gila code = 2362296) Clarity urine, POC (test Cloudy code = 1799797) Glucose urine, POC (test Negative Negative code = 1287717) Bilirubin urine, POC Negative Negative (test code = 1773524) Ketones urine, POC (test Negative Negative code = 2514-8) Specific gravity urine, 1.010 1.005-1.030 POC (test code = 5811-5) Blood urine, POC (test Trace Negative A code = 5047964) pH urine, POC (test code 6.5 See_Comment [A utomated message] = 5803-2) The system [employer] generated this result transmitted ref erence range: 5.0, 5.5 , 6.0, 6.5, 7.0, 7.5, 8.0, 8.5. The refere nce range was not u sed to interpret this result as normal/abnor mal. Protein urine, POC (test Negative Negative code = 04339-1) Urobilinogen urine, POC <2.0 <=2.0 (test code = 12216-1) Nitrite urine, POC (test Positive Negative A code = 5802-4) Leukocyte esterase Large Negative A urine, POC (test code = 0101877) Lab Interpretation (test Abnormal code = 04043-5) [facility] urinalysis tedwzwpa8543-40-68 15:20:26 Test Item Value Reference Range Interpretation Comments Color urine, POC (test Gila code = 2342314) Clarity urine, POC (test Cloudy code = 6118810) Glucose urine, POC (test Negative Negative code = 3062013) Bilirubin urine, POC Negative Negative (test code = 8404996) Ketones urine, POC (test Negative Negative code = 2514-8) Specific gravity urine, 1.010 1.005-1.030 POC (test code = 5811-5) Blood urine, POC (test Trace Negative A code = 1851416) pH urine, POC (test code 6.5 See_Comment [A utomated message] = 5803-2) The system [employer] generated this result transmitted ref erence range: 5.0, 5.5 , 6.0, 6.5, 7.0, 7.5, 8.0, 8.5. The refere nce range was not u sed to interpret this result as normal/abnor mal. Protein urine, POC (test Negative Negative code = 49776-7) Urobilinogen urine, POC <2.0 <=2.0 (test code = 47033-9) Nitrite urine, POC (test Positive Negative A code = 5802-4) Leukocyte esterase Large Negative A urine, POC (test code = 4149542) Lab Interpretation (test Abnormal code = 15259-4) [facility] urinalysis [id number] 15:20:26 Test Item Value Reference Range Interpretation Comments Color urine, POC (test Gila code = 0309442) Clarity urine, POC (test Cloudy code = 0319130) Glucose urine, POC (test Negative Negative code = 8832873) Bilirubin urine, POC Negative Negative (test code = 7741155) Ketones urine, POC (test Negative Negative code = 2514-8) Specific gravity urine, 1.010 1.005-1.030 POC (test code = 5811-5) Blood urine, POC (test Trace Negative A code = 5364148) pH urine, POC (test code 6.5 See_Comment [A utomated message] = 5803-2) The system [employer] generated this result transmitted ref erence range: 5.0, 5.5 , 6.0, 6.5, 7.0, 7.5, 8.0, 8.5. The refere nce range was not u sed to interpret this result as normal/abnor mal. Protein urine, POC (test Negative Negative code = 87234-5) Urobilinogen urine, POC <2.0 <=2.0 (test code = 52658-1) Nitrite urine, POC (test Positive Negative A code = 5802-4) Leukocyte esterase Large Negative A urine, POC (test code = 9008726) Lab Interpretation (test Abnormal code = 24134-9) [facility] ailio5413-86-17 23:08:00 Test Item Value Reference Range Interpretation Comments Creatinine, 22.3 mg/dL Not Estab. urine (mg/dL) (test code = 2161-8) Albumin, urine <3.0 Not Estab. ug/mL Verifie d by repeat (test code = analysis 57159-0) Microalbumin/c <13 See_Comment Normal: 0 - 29 reatinine Moderately ratio (test increased: 30 - 300 code = 9318-7) Severely incr eased: >300 [Automated message] The sy stem which generated this result transmit gagan reference range : 0 - 29 mg/g creat. The reference range was not used to interpret this result as normal/abnormal . BINDU (test code Performed at: - = BINDU) [facility] [id number] Director: Pedro Mcduffie MD, Phone: [phone] [facility] [id number] 23:08:00 Test Item Value Reference Range Interpretation Comments Creatinine, 22.3 mg/dL Not Estab. urine (mg/dL) (test code = 2161-8) Albumin, urine <3.0 Not Estab. ug/mL Verifie d by repeat (test code = analysis 62506-4) Microalbumin/c <13 See_Comment Normal: 0 - 29 reatinine Moderately ratio (test increased: 30 - 300 code = 9318-7) Severely incr eased: >300 [Automated message] The sy stem which generated this result transmit gagan reference range : 0 - 29 mg/g creat. The reference range was not used to interpret this result as normal/abnormal . BINDU (test code Performed at: - = BINDU) [facility] [address] [id number] Director: Pedro Mcduffie MD, Phone: [phone] [facility] yoftaqot3295-80-12 13:11:00 Test Item Value Reference Range Interpretation Comments Hepatitis C Ab 0.1 See_Comment Negative: < 0.8 (test code = Indeterminate: 0.8 - 74581-6) 0.9 Positive: > 0.9 HCV antibody al one does not differentiate between previou s resolved infect ion and active infection. The CDC and current cli nical guidelines jn mmend that a positive HCV antibody result be followed up wit h an HCV RNA test to support the diagnosis of ac [place] HCV infection. [facility] offers Hepatitis C Vir us (HCV) RNA, Diagnosis, YEVGENIY (762933) and Hepatitis C Vir us (HCV) Antibody with reflex to Quantitative Real-time PCR (614665). [Auto mated message] The sy stem which generated this result transmit gagan reference range : 0.0 - 0.9 s/co rati o. The reference r maksim was not used to interpret this result as normal/abnormal . BINDU (test code = Performed at: BINDU) - [address] [id number] Director: Pedro Mcduffie MD, Phone: [phone] [facility] Areapatitis C [id number] 13:11:00 Test Item Value Reference Range Interpretation Comments Hepatitis C Ab 0.1 See_Comment Negative: < 0.8 (test code = Indeterminate: 0.8 - 61105-9) 0.9 Positive: > 0.9 HCV antibody al one does not differentiate between previou s resolved infect ion and active infection. The CDC and current cli nical guidelines jn mmend that a positive HCV antibody result be followed up wit h an HCV RNA test to support the diagnosis of ac [place] HCV infection. [facility] offers Hepatitis C Vir us (HCV) RNA, Diagnosis, YEVGENIY (427866) and Hepatitis C Vir us (HCV) Antibody with reflex to Quantitative Real-time PCR (564456). [Auto mated message] The sy stem which generated this result transmit gagan reference range : 0.0 - 0.9 s/co rati o. The reference r maksim was not used to interpret this result as normal/abnormal . BINDU (test code = Performed at: BINDU) - [address] [id number] Director: Pedro Mcduffie MD, Phone: [phone] [facility] [Presence] in Respiratory specimen by YEVGENIY with probe nwjrlwbpk1869-20-57 17:33:22 Test Item Value Reference Range Interpretation Comments SARS-CoV-2 (COVID-19) RNA Not detected Not-Detected [Presence] in Respiratory specimen by YEVGENIY with probe detection (test code = 40229-2) Whether patient is employed in a healthcare setting (test code = 26193-0) Whether the patient has symptoms related to condition of interest (test code = 33056-6) Patient was hospitalized because of this condition (test code = 39287-4) Whether the patient was admitted to intensive care unit (ICU) for condition of interest (test code = 61245-7) Whether patient resides in a congregate care setting (test code = 11658-9) [facility] [Presence] in Respiratory specimen by YEVGENIY with probe fcanzbjlt7210-84-05 12:46:53 Test Item Value Reference Range Interpretation Comments SARS-CoV-2 (COVID-19) RNA Not detected Not-Detected [Presence] in Respiratory specimen by YEVGENIY with probe detection (test code = 32612-4) [facility] and [id number] 14:12:59 Test Item Value Reference Range Interpretation Comments Prothrombin Time (test code = 10.9 seconds 9.0-12.0 Prothrombin Time) INR (test code = INR) 1.0 ratio 0.9-1.2 Partial Thromboplastin Kiyo9718-04-48 14:12:59 Test Item Value Reference Range Interpretation Comments Partial Thromboplastin Time 26.7 seconds 24.0-35.0 (test code = Partial Thromboplastin Time) CT Brain/Head w/o Vqyqpyfs1124-85-26 14:10:41Patient: TELMA HARTLEY Date/Time10/07/2019 13:55 CDTReason for ExamSyncopeReportEXAMI NATION: CT [...] 2.0 mg/dL 1.6-2.6 Magnesium Level) Comprehensive Metabolic [id number] 14:08:14 Test Item Value Reference Range Interpretation [...] = AST) 18 IntlUnit/L 15-37 Comprehensive Metabolic Ogrse7425-34-50 14:08:14 Test Item Value Reference Range Interpretation [...] >60 mL/min/1.73 m2 N AA) Comprehensive Metabolic [id number] 14:08:14 Test Item Value Reference Range Interpretation [...] >60 mL/min/1.73 m2 N eGFR Non-AA) Automated Iflahuruksvb8093-08-71 14:00:47 Test Item Value Reference Range Interpretation Comments Neutro Auto (test code = Neutro Auto) 71.3 % N Lymph Auto (test code = Lymph Auto) 20.6 % N Mccreary Auto (test code = Mccreary Auto) 7.3 % N Eos, Auto (test code = Eos, Auto) 0.1 % N Basophil Auto (test code = Basophil 0.4 % N Auto) Neutro Absolute (test code = Neutro 6.5 x10 2.7-7.3 Absolute) Lymph Absolute (test code = Lymph 1.9 x10 0.8-3.5 Absolute) Mccreary Absolute (test code = Mccreary 0.7 x10 0.3-0.9 Absolute) Eos Absolute (test code = Eos 0.0 x10 0.0-0.3 Absolute) Baso Absolute (test code = Baso 0.0 x10 0.0-0.1 Absolute) IG [id number] 14:00:47 Test Item Value Reference Range Interpretation Comments IG (test code = IG) 0 % 0-5 IG Abs (test code = IG Abs) 0 x10 N Complete Blood Count with Hgobmfgwoabw9428-60-96 14:00:46 Test Item Value Reference Range Interpretation [...] GL_SET_SLIDE _REVIEW_A UTO XR Chest 1 View Gsqtpbp9960-45-54 13:50:28Patient: TELMA HARTLEY Date/Time10/07/2019 13:43 CDTReason for ExamDifficulty breathi ngReportEXAM: [...] by:MD Lorna, SamerSigned (Electronic Signature): 10/07/2019 1:50 pmBasi Metabolic [id number] 08:52:12 Test Item Value Reference Range Interpretation [...] 8.3 mg/dL 8.5-10.1 L Level) Basic Metabolic [id number] 08:52:12 Test Item Value Reference Range Interpretation [...] >60 mL/min/1.73 m2 N AA) Basic Metabolic Hczqm8868-13-14 08:52:12 Test Item Value Reference Range Interpretation [...] N eGFR Non-AA) Complete Blood Count with Aitgjwjvwpff0816-63-32 08:30:06 Test Item Value Reference Range Interpretation [...] = Slide Review) GL_SET_SLIDE _REVIEW_A UTO Automated Xkdkhgknxpxx8098-53-09 08:30:06 Test Item Value Reference Range Interpretation Comments Neutro Auto (test code = Neutro Auto) 67.1 % N Lymph Auto (test code = Lymph Auto) 25.5 % N Mccreary Auto (test code = Mccreary Auto) 6.8 % N Basophil Auto (test code = Basophil 0.3 % N Auto) Neutro Absolute (test code = Neutro 4.1 x10 2.7-7.3 Absolute) Lymph Absolute (test code = Lymph 1.6 x10 0.8-3.5 Absolute) Mccreary Absolute (test code = Mccreary 0.4 x10 0.3-0.9 Absolute) Baso Absolute (test code = Baso 0.0 x10 0.0-0.1 Absolute) IG [id number] 08:30:06 Test Item Value Reference Range Interpretation Comments IG (test code = IG) 0 % 0-5 IG Abs (test code = IG Abs) 0 x10 N POC [id number] 12:41:57 Test Item Value Reference Range Interpretation Comments Glucose POC (test 114 mg/dL 74-106 H POC Glucos e used on code = Glucose POC) critical ly ill patients is considered " off-label use" and has no t been cleared or appr kayla by the FDA. Altern ative testing methods should be considered i f the patient is crit ically ill. Automated Zitnmkuwxcuf3819-73-29 13:36:53 Test Item Value Reference Range Interpretation Comments Neutro Auto (test code = Neutro Auto) 79.9 % N Lymph Auto (test code = Lymph Auto) 15.2 % N Mccreary Auto (test code = Mccreary Auto) 4.2 % N Basophil Auto (test code = Basophil 0.3 % N Auto) Neutro Absolute (test code = Neutro 7.7 x10 2.7-7.3 H Absolute) Lymph Absolute (test code = Lymph 1.5 x10 0.8-3.5 Absolute) Mccreary Absolute (test code = Mccreary 0.4 x10 0.3-0.9 Absolute) Baso Absolute (test code = Baso 0.0 x10 0.0-0.1 Absolute) IG [id number] 13:36:53 Test Item Value Reference Range Interpretation Comments IG (test code = IG) 0 % 0-5 IG Abs (test code = IG Abs) 0 x10 N Complete Blood Count with Xykzxyoomqpc2074-17-42 13:36:52 Test Item Value Reference Range Interpretation [...] created by = Slide Review) GL_SET_SLIDE _REVIEW_A [facility] Basic Metabolic Ctqua1617-70-78 13:01:14 Test Item Value Reference Range Interpretation [...] Calcium 9.1 mg/dL 8.5-10.1 Level) Basic Metabolic Hidgy0373-90-49 13:01:14 Test Item Value Reference Range Interpretation [...] >60 mL/min/1.73 m2 N AA) Basic Metabolic Fzzkh1016-90-14 13:01:14 Test Item Value Reference Range Interpretation [...] >60 mL/min/1.73 m2 N eGFR Non-AA) Urinalysis Lzboyqqxwem6797-96-88 13:00:35 Test Item Value Reference Range Interpretation [...] A Hyal Cast) Urinalysis with Culture, if yvyrwiigw4417-72-47 13:00:35 Test Item Value Reference Range Interpretation [...] Ind?) rule GL_SET_UA_MICRO _IND Prothrombin Time and LJK0162-15-90 12:46:34 Test Item Value Reference Range Interpretation Comments Prothrombin Time (test code = 10.2 seconds 9.0-12.0 Prothrombin Time) INR (test code = INR) 1.0 ratio 0.9-1.2 Partial Thromboplastin [id number] 12:46:34 Test Item Value Reference Range Interpretation Comments Partial Thromboplastin Time 27.1 seconds 24.0-35.0 (test code = Partial Thromboplastin Time) XR Chest 2 [id number] 12:44:47Patient: TELMA HARTLEY Date/Time10/03/2019 12:35 CDTReason for Exampre op;Other (please specify)ReportClinical history: Preoperative respiratory examination for carotid endarterectomy hypertension and tobacco useX-ray chest 2 viewsCorrelation was made with the patient's prior chest x-ray dated 09 13 2019The heart and mediastinum remain within normal limits. Pulmonary vascularity is normal. There are no pulmonary consolidations or pleural effusions. Partially calcified tortuous thoracic aorta is again noted. Kyphodextroscoliosis and spondyloarthropathy changes of the thoracic spine again identified. Old healed right rib fractures again noted. There is a small hiatal hernia. Multiple s urgical clips demonstrated within the upper abdomen. Partially calcified breast prostheses are noted.IMPRESSION:1. No active cardiopulmonary process. Final Dictated by: MD Mcdaniels Gustavo MDictated DT/TM: 10/03/2019 12:41 pmSigned by: MD Mcdaniels Gustavo MSigned (Electronic Signature): 10/03/2019 12:44 pmTroponin [id number] 16:50:12 Test Item Value Reference Range Interpretation Comments Troponin-I (test code = <0.015 ng/mL 0.010-0.040 Troponin-I) Troponin [id number] 15:33:13 Test Item Value Reference Range Interpretation Comments Troponin-I (test code = <0.015 ng/mL 0.010-0.040 Troponin-I) Comprehensive Metabolic [id number] 14:19:11 Test Item Value Reference Range Interpretation [...] AST) 14 IntlUnit/L 15-37 L Comprehensive Metabolic [id number] 14:19:11 Test Item Value Reference Range Interpretation [...] >60 mL/min/1.73 m2 N AA) Comprehensive Metabolic [id number] 14:19:11 Test Item Value Reference Range Interpretation [...] >60 mL/min/1.73 m2 N eGFR Non-AA) IG [id number] 13:58:47 Test Item Value Reference Range Interpretation Comments IG (test code = IG) 0 % 0-5 IG Abs (test code = IG Abs) 0 x10 N Complete Blood Count with [id number] 13:58:46 Test Item Value Reference Range Interpretation [...] = Slide Review) GL_SET_SLIDE _REVIEW_A UTO Automated [id number] 13:58:46 Test Item Value Reference Range Interpretation Comments Neutro Auto (test code = Neutro Auto) 68.8 % N Lymph Auto (test code = Lymph Auto) 27.1 % N Mccreary Auto (test code = Mccreary Auto) 3.4 % N Basophil Auto (test code = Basophil 0.4 % N Auto) Neutro Absolute (test code = Neutro 4.6 x10 2.7-7.3 Absolute) Lymph Absolute (test code = Lymph 1.8 x10 0.8-3.5 Absolute) Mccreary Absolute (test code = Mccreary 0.2 x10 0.3-0.9 L Absolute) Baso Absolute (test code = Baso 0.0 x10 0.0-0.1 Absolute) CT Brain/Head w/o [id number] 13:38:37Patient: TELMA HARTLEY Date/Time09/13/2019 13:24 CDTReason for ExamNumbness/tinglingR eportCT BRAIN WITHOUT CONTRAST:CLINICAL INFORMATION: Decreased sensation, paresthesias. The study was performed within 24 hours of the patient's arrival at the hospital.COMPARISON: 08/15/2016COMMENT:Axial images of the brain were obtained without [...] (Electronic Signature): 09/13/2019 1:38 pmXR Chest 2 [id number] 13:28:06Patient: TELMA HARTLEY Date/Time09/13/2019 13:10 CDTReason for ExamChest painReportX-ray CHEST [...] (Electronic Signature): 09/13/2019 1:28 pmMRI BRAIN W/WO [id number] 09:27:31MRI BRAIN W/WO CONTRASTHISTORY: Syncopal episode, left-sided [...] suspectedretention cyst right maxillary sinus.MRA HEAD WO [id number] 09:20:45MRA BRAIN:CLINICAL INFORMATION: Syncopal episode and left-sided weakness Brain MRA was performed in multiple projections. There is noabnormality identified of the yurok of Lance. Specifically, there isno evidence of cerebral aneurysm or occlusive disease. The distalinternal carotid and vertebral basilar system is unremarkable as well. There is no abnormality identified of the posterior or middle cerebralarteries. The proximal and anterior cerebral arteries are alsovisualized and are normal.IMPRESSION: No evidence of aneurysm or vascular occlusion.XR CHEST SGL 1V, [id number] 16:47:27XR CHEST SGL 1V, FRONTALDIAGNOSIS: Cough and COPDThe heart and mediastinum are normal. No consolidation or pleural fluidis identified. The bilateral pulmonary infiltrates present on 01/17/2015have resolved.IMPRESSION: Negative portable chest.CT HEAD OR BRAIN WO [id number] 16:29:57CT HEAD OR BRAIN WO CONTRASTDIAGNOSIS: Weakness, slurred speech and facial numbnessCerebral atrophy and chronic white matter ischemia are unchanged since05/06/2015. The midline is not shifted. No intracranial hemorrhage, masseffect, extracerebral collection or evidence of an acute infarct isnoted.Radiation dose lowering techniques were used according to ALARAprinciple.IMPRESSION: Cerebral atrophy and chronic white matter ischemiaunchanged. Notes Date/Time Note Provider Source 2017-04-05 14:10:11 [id number]:10:11 [facility] HISTORY AND PHYSICALPATIENT NAME: TELMA HARTLEY PHYSICIAN: Nicolas Roach M.D. ADMITTED: 08/15/2016 19:45:00 MR NUMBER: [id number] DISCHARGED: 08/17/2016 10:44:00 _ ADMITTING DIAGNOSES: The patient has hypertensive emergency, rule out cerebrovascular accident; history of diabetes mellitus, aty-mvfypit-xmrptbhck; history of pancreatic cancer. DISCHARGE DIAGNOSES: Hypertension, controlled; diabetes mellitus; history of pancreatic cancer. CONSULTATION: None. PROCEDURE : MRI/MRA of the brain with negative finding. MICAH Beckford COMPLAINT: Dizziness. HISTORY OF PRESENT ILLNESS : This is a case history of a 61-year-old Cauc[place] n female with past medical history significant for hypertension, diabetes mellitus, vhl-nqcqfih-vlprxtbxh, history of pancreatic cancer. The patient referred [...] for above-mentioned, history of hypertension, diabetes mellitus, buy-pobiarq-kcldafsym, pancreatic cancer. [facility]: Metoprolol succinate.ALLERGIES: PROCARDIA. PAST SURGICAL [...] admission, presented with blood pressure 180/120, [facility] HISTORY AND PHYSICALrespiratory rate of 18 , [...] [facility] HISTORY AND PHYSICALRoussel John Roach.CC: [id number]: 08/17/2016 10:54:50 ESTDT: 08/17/2016 15:47:11 ESTIASIS /NTS Pfb#: [id number] Electronically Authenticated and Edited by:Nicolas Roahc M.D. On 08/18/2016 08:27 AM CDTHPHistory and physical [id number] for patient [id number]:10:11
[2023-02-14 11:55] LABS: SARS-CoV-2 Antigen Rapid Res Negative (Negative)
--- NOTE | 2023-02-14 12:10 | ER ---
Nurse's Notes [facility] [place] Name: Reina Hartley Age: 67 yrs Sex: Female : 1955 Arrival Date: 02/14/2023 Time: 10:56 Bed IW2 Private MD: Diagnosis: Spasmodic torticollis Presentation: 02/14 11:18 Chief complaint: Patient states: thinks she pulled a muscle on her neck, pain to neck iw and upper back and her ears hurt , had fever last night and was vomiting. Coronavirus screen: At this time, the client does not indicate any symptoms associated with coronavirus-19. Ebola Screen: Patient negative for fever greater than or equal to 101.5 degrees Fahrenheit, and additional compatible Ebola Virus Disease symptoms Patient denies exposure to infectious person. Patient denies travel to an Ebola-affected area in the 21 days before illness onset. No symptoms or risks identified at this time. Initial Sepsis Screen: Does the patient meet any 2 criteria? No. Patient's initial sepsis screen is negative. Does the patient have a suspected source of infection? No. Patient's initial sepsis screen is negative. Risk Assessment: Do you want to hurt yourself or someone else? Patient reports no desire to harm self or others. 11:18 Method Of Arrival: Ambulatory iw 11:18 Acuity: ANDREA 3 iw 11:18 Onset of symptoms was February 13, 2023. iw Historical: - Allergies: 11:19 Procardia; iw - PMHx: 11:19 diabetes mellitus; Hypertensive disorder; iw - PSHx: 11:19 breast augmentation; Cholecystectomy; Gastric Bypass; hysterectomy; iw - Immunization history:: Adult Immunizations unknown, Client reports having NOT received the Covid vaccine. - Social history:: Smoking status: unknown. Screenin:00 [facility] ED Fall Risk Assessment (Adult) History of falling in the last 3 months, hb including since admission No falls in past 3 months (0 pts). Abuse screen: Denies threats or abuse. Denies injuries from another. Nutritional screening: No deficits noted. Tuberculosis screening: No symptoms or risk factors identified. Assessment: 13:00 General: Appears in no apparent distress. uncomfortable, unkempt, Behavior is calm, hb cooperative. Pain: Complains of pain in back of neck and posterior chest Pain does not radiate. Pain currently is 10 out of 10 on a pain scale. Quality of pain is described as burning, aching, throbbing, Pain began 2-3 days ago. Is continuous. Neuro: Level of Consciousness is awake, alert, obeys commands, Oriented to person, place, time, situation, Receiving Coordinator are equal bilaterally Moves all extremities. Gait is steady, Speech is normal, Facial symmetry appears normal, Intact. Vital Signs: 11:18 BP 146 / 90; Pulse 82; Resp 16; Temp 98.6; Pulse Ox 95% ; Weight 63.5 kg; Height 5 ft. iw 2 in. ; Pain 10/10; 13:00 BP 157 / 93; Pulse 85; Resp 20; Temp 97.5; Pulse Ox 98% ; hb 11:18 Body Mass Index 25.61 (63.50 kg, 157.48 cm) iw 11:18 Pain Scale: Adult iw ED Course: 11:00 Patient arrived in ED. im 11:02 Yumi Holder MD is Attending Physician. sp3 11:19 Triage completed. iw 11:19 Arm band placed on. iw 13:00 Patient has correct armband on for positive identification. Provided Education on: Plan hb of care. 13:00 No provider procedures requiring assistance completed. Patient did not have IV access hb during this emergency room visit. 13:21 Lissett Chavis RN is Primary Nurse. hb Administered Medications: 13:10 Drug: Acetaminophen PO 650 mg PO once Route: PO; hb 13:10 Drug: Ondansetron Oral Disintegrating Tablet Oral Disintegrating Tablet 4 mg PO once hb Route: PO; 13:10 Drug: Famotidine PO 20 mg PO once Route: PO; hb Medication: 13:00 VIS not applicable for this client. hb Outcome: 12:09 Discharge ordered by sp3 13:15 Discharged to home ambulatory, hb 13:15 Condition: stable 13:15 Discharge instructions given to patient, Instructed on discharge instructions, follow up and referral plans. medication usage, Demonstrated understanding of instructions, follow-up care, medications, 13:22 Patient left the ED. hb Signatures: Fany Deng RN RN Lissett Chavis RN RN Yumi Holder MD MD sp3 Ayleen Alvares Corrections: (The following items were deleted from the chart) 11:20 11:18 BP 146 / 90; Resp 16bpm; iw iw
--- NOTE | 2023-02-14 12:10 | EDPHYS ---
Physician Documentation [facility] Name: Reina Hartley Age: 67 yrs Sex: Female : 1955 Arrival Date: 02/14/2023 Time: 10:56 Bed IW2 Private MD: ED Physician Yumi Holder HPI: 02/14 11:22 This 67 yrs old Female presents to ER via Ambulatory with complaints of Pain All Over, sp3 Neck and Upper Back Pain. 11:22 67-year-old male with history of diabetes, hypertension and presents to the ED with sp3 chief complaint right-sided neck pain due to "sleeping on it wrong". Patient denies any direct trauma. She also states she has a right earache and states she had a temperature of 102 Fahrenheit yesterday. She denies any other symptoms including cough, shortness of breath, chest pain, known sick contacts, travel history, body aches, rash, or any other signs or symptoms at this time.. Historical: - Allergies: 11:19 Procardia; iw - PMHx: 11:19 diabetes mellitus; Hypertensive disorder; iw - PSHx: 11:19 breast augmentation; Cholecystectomy; Gastric Bypass; hysterectomy; iw - Immunization history:: Adult Immunizations unknown, Client reports having NOT received the Covid vaccine. - Social history:: Smoking status: unknown. ROS: 11:23 Eyes: Negative for injury, pain, redness, and discharge, Neck: Negative for injury, sp3 pain, and swelling, Cardiovascular: Negative for chest pain, palpitations, and edema, Respiratory: Negative for shortness of breath, cough, wheezing, and pleuritic chest pain, Abdomen/GI: Negative for abdominal pain, nausea, vomiting, diarrhea, and constipation, Back: Negative for injury and pain, : Negative for injury, bleeding, discharge, and swelling, MS/Extremity: Negative for injury and deformity, Skin: Negative for injury, rash, and discoloration, Neuro: Negative for headache, weakness, numbness, tingling, and seizure, Psych: Negative for depression, anxiety, suicide ideation, homicidal ideation, and hallucinations, Allergy/Immunology: Negative for hives, rash, and allergies, Endocrine: Negative for neck swelling, polydipsia, polyuria, polyphagia, and marked weight changes, Hematologic/Lymphatic: Negative for swollen nodes, abnormal bleeding, and unusual bruising, 11:23 All other systems are negative, Exam: 11:24 Constitutional: This is a well developed, well nourished patient who is awake, alert, sp3 and in no acute distress. Head/Face: Normocephalic, atraumatic. Eyes: Pupils equal round and reactive to light, extra-ocular motions intact. Lids and lashes normal. Conjunctiva and sclera are non-icteric and not injected. Cornea within normal limits. Periorbital areas with no swelling, redness, or edema. ENT: Nares patent. No nasal discharge, no septal abnormalities noted. External auditory canals are clear. Oropharynx with no redness, swelling, or masses, exudates, or evidence of obstruction, uvula midline. Mucous membranes moist. Chest/axilla: Normal chest wall appearance and motion. Nontender with no deformity. No lesions are appreciated. Cardiovascular: Regular rate and rhythm with a normal S1 and S2. No gallops, murmurs, or rubs. Normal PMI, no JVD. No pulse deficits. Respiratory: Lungs have equal breath sounds bilaterally, clear to auscultation and percussion. No rales, rhonchi or wheezes noted. No increased work of breathing, no retractions or nasal flaring. Abdomen/GI: Soft, non-tender, with normal bowel sounds. No distension or tympany. No guarding or rebound. No evidence of tenderness throughout. Back: No spinal tenderness. No costovertebral tenderness. Full range of motion. Skin: Warm, dry with normal turgor. Normal color with no rashes, no lesions, and no evidence of cellulitis. MS/ Extremity: Pulses equal, no cyanosis. Neurovascular intact. Full, normal range of motion. Neuro: Awake and alert, GCS 15, oriented to person, place, time, and situation. Cranial nerves II-XII grossly intact. Motor strength 5/5 in all extremities. Sensory grossly intact. Cerebellar exam normal. Normal gait. Psych: Awake, alert, with orientation to person, place and time. Behavior, mood, and affect are within normal limits. 11:25 Neck: No lymphadenopathy noted. Point tenderness in the right anterior belly of the sp3 SCM muscle., Vital Signs: 11:18 BP 146 / 90; Pulse 82; Resp 16; Temp 98.6; Pulse Ox 95% ; Weight 63.5 kg; Height 5 ft. iw 2 in. ; Pain 10/10; 13:00 BP 157 / 93; Pulse 85; Resp 20; Temp 97.5; Pulse Ox 98% ; hb 11:18 Body Mass Index 25.61 (63.50 kg, 157.48 cm) iw 11:18 Pain Scale: Adult iw MDM: 11:20 Patient medically screened. sp3 11:24 Data reviewed: vital signs, nurses notes, lab test result(s). ED course: 67-year-old sp3 female with point tenderness in the right neck. This could be a lymph node versus muscle. Given the fact that its more painful when she moves, I believe patient has torticollis. Right TM is normal and there are no signs of infection in the ear. We will obtain flu and strep as well due to her reported fever. Otherwise prescribed NSAID and ice with follow-up to PCP is best indicated course. I am not highly suspicious for a other critical process including sepsis, shock, acute coronary syndrome, vascular/aortic pathology, thyroid issue, or any other critical process at this time.. 12:08 ED course: All swabs are negative. We will safely discharge patient home on oral NSAIDs sp3 and follow-up to PCP at this time.. 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 Diagnosis - Spasmodic torticollis sp3 Followup: sp3 - With: Private Physician - When: Upon discharge from the Emergency Department - Reason: Continuance of care Discharge Instructions: - Discharge Summary Sheet sp3 - Acute Torticollis, Adult sp3 Forms: - Medication Reconciliation Form sp3 - Thank You Letter sp3 - Antibiotic Education sp3 - Prescription Opioid Use sp3 - Patient Portal Instructions sp3 - Leadership Thank You Letter sp3 Prescriptions: - Diclofenac Sodium 75 mg Oral Tablet Sustained Release - take 1 tablet ORAL route 2 times per day; 30 tablet; Refills: 0, Product sp3 Selection Permitted Signatures: Dispatcher [employer] Fany Nunez RN RN iw Baxter, Heather, RN RN hb Patel, Setul, MD MD sp3 Corrections: (The following items were deleted from the chart) 11:26 11:24 Constitutional: This is a well developed, well nourished patient who is awake, sp3 alert, and in no acute distress. Head/Face: Normocephalic, atraumatic. Eyes: Pupils equal round and reactive to light, extra-ocular motions intact. Lids and lashes normal. Conjunctiva and sclera are non-icteric and not injected. Cornea within normal limits. Periorbital areas with no swelling, redness, or edema. ENT: Nares patent. No nasal discharge, no septal abnormalities noted. External auditory canals are clear. Oropharynx with no redness, swelling, or masses, exudates, or evidence of obstruction, uvula midline. Mucous membranes moist. Neck: Trachea midline, no thyromegaly or masses palpated, and no cervical lymphadenopathy. Supple, full range of motion without nuchal rigidity, or vertebral point tenderness. No Meningismus. Chest/axilla: Normal chest wall appearance and motion. Nontender with no deformity. No lesions are appreciated. Cardiovascular: Regular rate and rhythm with a normal S1 and S2. No gallops, murmurs, or rubs. Normal PMI, no JVD. No pulse deficits. Respiratory: Lungs have equal breath sounds bilaterally, clear to auscultation and percussion. No rales, rhonchi or wheezes noted. No increased work of breathing, no retractions or nasal flaring. Abdomen/GI: Soft, non-tender, with normal bowel sounds. No distension or tympany. No guarding or rebound. No evidence of tenderness throughout. Back: No spinal tenderness. No costovertebral tenderness. Full range of motion. Skin: Warm, dry with normal turgor. Normal color with no rashes, no lesions, and no evidence of cellulitis. MS/ Extremity: Pulses equal, no cyanosis. Neurovascular intact. Full, normal range of motion. Neuro: Awake and alert, GCS 15, oriented to person, place, time, and situation. Cranial nerves II-XII grossly intact. Motor strength 5/5 in all extremities. Sensory grossly intact. Cerebellar exam normal. Normal gait. Psych: Awake, alert, with orientation to person, place and time. Behavior, mood, and affect are within normal limits. sp3
[2023-02-14] MEDS ORDERED: ACETAMINOPHEN 325 MG TABLET ONE (13:23)
[2023-02-14] MEDS ORDERED: FAMOTIDINE 20 MG TAB ONE (13:23)
[2023-02-14] MEDS ORDERED: ONDANSETRON 4 MG (ODT) TAB ONE (13:23)
[2023-02-14 14:19] VITALS: BP 157/93; TEMP 97.5; O2SAT 98
== END 2023-02-14 13:22 | disposition home or self-care (01) ==
LOC: ER 10:56
DX: G24.3 Spasmodic torticollis (principal); E11.9 Type 2 diabetes mellitus without complications; I10 Essential (primary) hypertension; Z11.52 Encounter for screening for COVID-19; Z88.8 Allergy status to other drugs, medicaments and biological substances
CPT/HCPCS: 36415; 87804 ×2; 99283; 87811; Q0162

== ENCOUNTER 2023-02-15 11:05 | Emergency (ER) | payer OTHER ==
--- OUTSIDE RECORDS SUMMARY | 2023-02-15 11:27 | XMS REPORT | Continuity of Care Document ---
:[address] [facility] t Address [address] [place] [address] Care Team Providers Name Role Phone NAINA DUKE Primary Care Physician Unavailable RASHEEDA ORDONEZ Attending Clinician Unavailable Jonathon Phillips Attending Clinician Unavailable Jonathon Phillips Attending Clinician Unavailable Ani Amado RN Attending Clinician Unavailable Luis Bowen MD Attending Clinician Amparo BACA, Jimbo Evans Attending Clinician Rasheeda Ordonez MD Attending Clinician [email or web address]_R Attending Clinician Unavailable Mickie Cronin RN Attending Clinician Unavailable ALTHEA RIBERA Attending Clinician Unavailable Pablito [facility], Nafisa Attending Clinician Unavailable Naheed BACA, Jose Sanchez Attending Clinician Clayton BACA, Soledad Recinos Attending Clinician [phone] Sulema Benito MD Attending Clinician Jose BACA, Sarai Castro Attending Clinician Mari Estrella MD Attending Clinician Zoran BACA, Jamia Infante Attending Clinician Raffaele Hurtado MD Attending Clinician Deborah Gomez MD Attending Clinician Meliza FITZPATRICK, Bernard Attending Clinician Unavailable Sarah Ordoñez MA Attending Clinician Unavailable Josh Oakes MA Attending Clinician Unavailable Macey MCKEON, Estrellita Attending Clinician Jeanette BACA, Kishan Medley Attending Clinician [phone] Jamia Jean MA Attending Clinician Unavailable Margy Clifton Attending Clinician [phone] Violet Haider MA Attending Clinician Unavailable [...] Admitting Clinician Unavailable [email or web address]_R Admitting Clinician Unavailable ALTHEA RIBERA Admitting Clinician Unavailable SULEMA BENITO Admitting Clinician Unavailable VENICE ALDRIDGE Admitting Clinician Unavailable MD VENICE ALDRIDGE Admitting Clinician Unavailable CHAPARRO CROWLEY Admitting Clinician Unavailable MD CHAPARRO CROWLEY Admitting Clinician Unavailab Abimael Cox Admitting Clinician Unavailable Silvana GARCIA M.D., Lizbeth Pina Admitting Clinician Unavailsilvana ble Payers Payer Name Policy Type Policy Number Effective Date Expiration Date Kenney HUFFMAN MEDICARE [id number] 2022 00:00:00 [facility] [id number] 2022 (HMO) 00:00:00 [facility] [id number] [id number] (MEDICARE 00:00:00 REPLACEMENT HMO) 2 M [id number] 2022 00:00:00 [facility] [id number] 2019 00:00:00 Problems Condition Condition Condition Status [...] Added automatic ally from request for surgery [id number] Alcohol Alcohol Disease Active Methodi dependence dependence [...] Disease Active M ethodi dism dism 07-02 st 00:00: Hospita 00 l Hypoglycem Hypoglycem Disease Active M ethodi ia ia 06-04 st 00:00: Hospita 00 l Essential Essential Disease Active Met hodi hypertensi hypertensi 2-11 st on on 00:00: Hospita 00 l Hyperlipid [...] 00 Center s NIFEDIPI Allergy Active 2022-03 [facility] [place] [facility] [...] 14 l Sertrali Propensi Active Other (See Md thodi ne ty to Comments) 10-22 adverse 00:00: Hospita reaction 00 l s to drug Nifedipi Propensi Active Unknown Metho di ne ty to Reaction 04-08 st adverse 00:00: Hospita reaction 00 l s to drug Other Propensi Active Rash Methodi ty to 04-08 st adverse 00:00: Hospita reaction 00 l s Procardi Drug Active [facility] Procardi Drug Active [facility] Procardi Drug Active [facility] Procardi Drug Active [facility] Procardi Drug Active [facility] Procardi Drug Active [facility] Procardi Drug Active [facility] Procardi Drug Active [facility] Procardi Drug Active [facility] Procardi Drug Active [facility] Procardi Drug Active [facility] Procardi Drug Active [facility] Procardi Drug Active [facility] Procardi Drug Active [facility] Procardi Drug Active [facility] Procardi Drug Active [facility] Procardi Drug Active [facility] Procardi Drug Active [facility] Procardi Drug Active [facility] Procardi Drug Active [facility] Procardi Drug Active [facility] Family History Family Member Diagnosis Comments Start Date Stop Date Source Natural brother Cancer [facility] Natural brother Bipolar disorder [facility] Natural brother Hypertension [facility] Natural father Diabetes [facility] Natural father Hyperlipidemia [facility] Natural father Hypertension [facility] Natural father Alcohol abuse [facility] Natural father Arthritis [facility] Natural father Diabetes [facility] Natural father Drug abuse [facility] Natural father Heart disease [facility] Natural father Hyperlipidemia [facility] Natural father Hypertension [facility] Natural mother Cancer [facility] Natural mother Diabetes [facility] Natural mother Heart attack [facility] Natural mother Hyper[facility] Natural mother Hypertension [facility] Natural mother Arthritis [facility] Natural mother Diabetes [facility] Natural mother Hearing loss [facility] Natural mother Heart disease [facility] Natural mother Hyperlipidemia [facility] Natural mother Hypertension [facility] Social History Social Habit Start Date Stop Date Quantity Comments Source Gender identity 2022-04-22 Identifies as Method ist 20:33:51 female gender Hospital (finding) History [facility] Alcohol Std Drinks Hospit al Sexual orientation [facility] History of tobacco Cigarette Smoker [facility] use [facility] Alcohol intake 2023-02-08 2023-02-08 Ex-drinker [facility] St [facility] es 00:00:00 00:00:00 (finding) [facility] Center History of Social 2023-02-08 2023-02-[address] [facility] function 00:00:00 00:00:00 [facility] Cigarettes smoked 2023-02-04 2023-02-[address] [facility] current (pack per 00:00:00 00:00:00 Medical Center day) - Reported Cigarette 2023-02-04 2023-02-[address] [facility] pack-years 00:00:00 00:00:00 [facility] Alcohol Comment 2023-02-04 2023-02-04 quit: [address] [facility] kes 00:00:00 00:00:00 [facility] Tobacco use and 2023-02-04 2023-02-04 [address] [facility] exposure 00:00:00 00:00:00 non-user Medical Center History [facility] Social 2022-05-11 2022-05-11 3 [facility] Phone 00:00:00 00:00:00 Hospita l History [facility] Social 2022-05-11 2022-05-11 5 [facility] Get 00:00:00 00:00:00 Hospital Together History [facility] Social 2022-05-11 2022-05-11 1 [facility] 00:00:00 00:00:00 Hospit al History [facility]OR Social 2022-05-11 2022-05-11 2 [facility] 00:00:00 00:00:00 Hospital Membership History [facility] Social 2022-05-11 2022-05-11 1 [facility] 00:00:00 00:00:00 Hospital Meetings History [facility] Social 2022-05-11 2022-05-11 4 [facility] Living 00:00:00 00:00:00 Hospit al History SDOH Food 2022-05-11 2022-05-[address] Worry 00:00:00 00:00:00 Hospital History SDOH Food 2022-05-11 2022-05-[address] Scarcity 00:00:00 00:00:00 Hospital History SDOR 2022-05-11 2022-05-11 1 [facility] Transport Med 00:00:00 00:00:00 Hospital History SDOH 2022-05-11 2022-05-11 1 [facility] Transport Non-Med 00:00:00 00:00:00 Hospita l History [facility] 2020-04-24 2020-04-24 1 [facility] Alcohol Frequency 00:00:00 00:00:00 Hospita l History [facility] 2020-04-24 2020-04-24 1 [facility] Alcohol Binge 00:00:00 00:00:00 Hospital Sex Ass[birth year] At [birth year] [facility] 00:00:00 00:00:00 Medical Center Smoking Status Start Date Stop Date Source Smokes tobacco daily 2023-02-04 00:00:00 [facility] Ex-smoker 2022-05-20 00:00:00 2022-05-20 00:00:00 [facility] Medications Ordered Filled Start Stop Current Ordering Indication Dosage Frequency Signature Comments Components Source Medication Medication Date Date Medication? Clinician (SIG) Name Name aspirin 81 2022-03- Yes 81mg QD Take [address] [facility] 1- 12-27 tablet (81 [facility] tablet 00:00: 23:59 mg total) Medic al 00 :00 by mouth Center daily for 30 days. aspirin 81 2022-03- Yes 81mg QD Take [address] [facility] EC 1-27 12-27 tablet (81 [facility] tablet 00:00: 23:59 [...] MG 48 by mouth Center tablet daily. levothyroxi 2022-03 Yes 25ug Take [address] [facility] ne 1-26 tablet (25 [facility] (SYNTHROID, 18:22: mcg total) Medical LEVOTHROID) 48 by mouth Cent er 25 MCG Every tablet morning on an empty stomach. pantoprazol 2022-03 Yes 40mg QD Take [address] e 1-26 tablet (40 [facility] (PROTONIX) 18:22: mg total) Me dical 40 MG 48 by mouth Center tablet daily. clopidogreL 2022-03- No 75mg QD Take [address] (PLAVIX) 75 -06 02-26 tablet (75 L ukes mg tablet 15:43: 00:00 mg total) Me dical 51 :00 by mouth Center daily. metoprolol 2022-03- No 25mg QD Take [address] succinate -06 02-26 tablet (25 Yash es (TOPROL-XL) 15:43: 00:00 mg total) Medical 25 MG 24 hr 51 :00 by mouth Cent er tablet daily. rosuvastati 2022-03- No 20mg QD Take [address] n (CRESTOR) -06 02-26 tablet (20 L ukes 20 MG 15:43: 00:00 mg total) Medica l tablet 51 :00 by mouth Center daily. clopidogreL 2022-03- No 75mg QD Take [address] (PLAVIX) 75 - 11-26 tablet (75 L ukes mg tablet 15:43: 00:00 mg total) Me dical 51 :00 by mouth Center daily. metoprolol 2022-03- No 25mg QD Take [address] succinate 1-26 11-26 tablet (25 Yash es (TOPROL-XL) 15:43: 00:00 mg total) Medical 25 MG 24 hr 51 :00 by mouth Cent er tablet daily. rosuvastati 2022-03- No 20mg QD Take [address] n (CRESTOR) - 11-26 tablet (20 L ukes 20 MG 15:43: 00:00 mg total) Medica l tablet 51 :00 by mouth Center daily. lisinopriL 2022-03- No 40mg QD Take [address] (PRINIVIL,Z - 11-26 tablet (40 L ukes ESTRIL) 40 15:41: 00:00 mg total) M edical MG tablet 49 :00 by mouth Center daily. polyethylen 2022-03- No 17g QD Take [address] e glycol - 11-26 by mouth [facility] (GLYCOLAX) 15:41: 00:00 daily. [facility]i [facility] 17 gram 49 :00 Center packet lisinopriL 2022-03 No 40mg QD Take [address] (PRINIVIL,Z - 11-26 tablet (40 L ukes ESTRIL) 40 15:41: 00:00 mg total) M edical MG tablet 49 :00 by mouth Center daily. polyethylen 2022-03 No 17g QD Take [address] e glycol - 11-26 by mouth [facility] (GLYCOLAX) 15:41: 00:00 daily. [facility]i [facility] 17 gram 49 :00 Center packet acarbose 2022-03 No 25mg Take [address] (PRECOSE) - 11-26 tablet (25 Yash es 25 MG 15:41: 00:00 mg total) Medica l tablet 48 :00 by mouth 3 Center (three) times daily with meals. bisacodyL 2022-03- No 5mg Take 1 [facility] t (DULCOLAX) - 11-26 tablet (5 Yash es 5 mg EC 15:41: 00:00 mg total) [facility]i [facility] tablet 48 :00 by mouth Center daily as needed for Constipati on. acarbose 2022-03 No 25mg Take [address] (PRECOSE) -26 11-26 tablet (25 Yash es 25 MG 15:41: 00:00 mg total) Medica l tablet 48 :00 by mouth 3 Center (three) times daily with meals. bisacodyL 2022-03 No 5mg Take 1 [facility] t (DULCOLAX) 1-26 11-26 tablet (5 Yash es 5 mg EC 15:41: 00:00 mg total) [facility]i [facility] tablet 48 :00 by mouth Center daily as needed for Constipati on. fluticasone 2022-03- Yes 1{puff} Inhale [address] propion-meeta 04-08 11-25 puff by Luke s meteroL 00:00: 23:59 mouth via [facility]i [facility] (Advair 00 :00 inhaler Center Diskus) every 12 100-50 (twelve) mcg/dose hours. diskus inhaler fluticasone 2022-03- Yes 1{puff} Inhale 1 [facility] [...] QD Take [address] (PLAVIX) 75 04-08- tablet (75 L ukes mg tablet 00:00: [...] 04-08 tablet (20 L ukes 20 MG 00:00: 23:59 mg total) Medica l tablet 00 :00 by mouth Center daily for 30 days. ferrous 2022-03- Yes 325mg Take 1 [facility]I [...] QD Take [address] [facility] n (CRESTOR) 1-26 12-26 tablet (20 L ukes 20 MG 00:00: 23:59 mg total) Medica l tablet 00 :00 by mouth Center daily for 30 days. metoprolol 2023-0 Yes 25mg Q.5D Take 1 [...] QD Take 17 g Methodi e glycol -09 14- by mouth st (Miralax) 00:00: 04:59 daily for Ho spita 17 gram 00 :00 30 days. l packet polyethylen 2023-0 2023- No 17g QD Take 17 g Methodi e glycol -09 14-[address] (Miralax) 00:00: 04:59 daily for Ho spita 17 gram 00 :00 30 days. l packet polyethylen 2023-0 2023- No 17g QD Take 17 g Methodi e glycol -09 14-[address] (Miralax) 00:00: 04:59 daily for Ho spita 17 gram 00 :00 30 days. l packet polyethylen 2023-0 2023- No 17g QD Take 17 g Methodi e glycol -09 14-[address] (Miralax) 00:00: 04:59 [...] days. l packet polyethylen 3-0 2023- No 119g Take 119 [...] enteric 05 :00 l coated tablet sulfamethox 2023-0 2023- No [id number] 1{tbl} Q.5D Take 1 Methodi azole-trime 2-20 - tablet by st thoprim 00:00: 05:59 mouth 2 Hospit a (BACTRIM 00 :00 (two) l DS) 800-160 times a mg per day for 5 tablet days. sulfamethox 2022- No [id number] 1{tbl} Q.5D Take 1 Methodi azole-trime 2-20 - tablet by st thoprim 00:00: 05:59 mouth 2 Hospit a (BACTRIM 00 :00 (two) l DS) 800-160 times a mg per day for 5 tablet days. sulfamethox 2022- No [id number] 1{tbl} Q.5D Take 1 Methodi azole-trime 2-03 05- tablet by st thoprim 00:00: 05:59 mouth 2 Hospit a (BACTRIM 00 :00 (two) l DS) 800-160 times a mg per day for 5 tablet days. sulfamethox 2022- No [id number] 1{tbl} Q.5D Take 1 Methodi azole-trime 2-03 05- tablet by st thoprim 00:00: 05:59 mouth 2 Hospit a (BACTRIM 00 :00 (two) l DS) 800-160 times a mg per day for 5 tablet days. sulfamethox 2022- No [id number] 1{tbl} Q.5D Take 1 Methodi azole-trime 2-20 - tablet by st thoprim 00:00: 05:59 mouth 2 Hospit a (BACTRIM 00 :00 (two) l DS) 800-160 times a mg per day for 5 tablet days. sulfamethox 2022-2022- No [id number] 1{tbl} Q.5D Take 1 Methodi azole-trime 2-20 - tablet by st thoprim 00:00: 05:59 mouth 2 Hospit a (BACTRIM 00 :00 (two) l DS) 800-160 times a mg per day for 5 tablet days. sulfamethox 2022- No [id number] 1{tbl} Q.5D Take 1 Methodi azole-trime 2-20 - tablet by st oprim 00:00: 05:59 mouth 2 Hospit a (BACTRIM 00 :00 (two) l DS) 800-160 times a mg per day for 5 tablet days. sulfamethox 2022- No [id number] 1{tbl} Q.5D Take 1 Methodi azole-trime 2-10 13-[address] thoprim 00:00: 00:00 mouth 2 Hospit a (BACTRIM 00 :00 (two) l DS) 800-160 times a mg per day for 5 tablet days. sulfamethox 2022- No [id number] 1{tbl} Q.5D Take 1 Methodi azole-trime -10 13-[address] oprim 00:00: 00:00 mouth 2 Hospit a (BACTRIM 00 :00 (two) l DS) 800-160 times a mg per day for 5 tablet days. sulfamethox 2022- No [id number] 1{tbl} Q.5D Take 1 Methodi azole-trime -10 13-[address] oprim 00:00: 00:00 mouth 2 Hospit a (BACTRIM 00 :00 (two) l DS) 800-160 times a mg per day for 5 tablet days. sulfamethox 2022- No [id number] 1{tbl} Q.5D Take 1 Methodi azole-trime -10 13-[address] thoprim 00:00: 00:00 mouth 2 Hospit a (BACTRIM 00 :00 (two) l DS) 800-160 times a mg per day for 5 tablet days. sulfamethox 2022- No [id number] 1{tbl} Q.5D Take 1 Methodi azole-trime 2-08 -[address] oprim 00:00: 00:00 mouth 2 Hospit a (BACTRIM 00 :00 (two) l DS) 800-160 times a mg per day for 5 tablet days. sulfamethox 2022- No [id number] 1{tbl} Q.5D Take 1 Methodi azole-trime 2-08 02-[address] thoprim 00:00: 00:00 mouth 2 Hospit a (BACTRIM 00 :00 (two) l DS) 800-160 times a mg per day for 5 tablet days. sulfamethox 2022- No [id number] 1{tbl} Q.5D Take 1 Methodi azole-trime 2-[address] thoprim 00:00: 00:00 mouth 2 Hospit a (BACTRIM 00 :00 (two) l DS) 800-160 times a mg per day for 5 tablet days. predniSONE 2021-2021- No [id number] 20mg Q.5D Take 1 Methodi (DELTASONE) -01 10-27 tablet (20 s t 20 mg 00:00: 04:59 mg total) Hospit a tablet 00 :00 by mouth 2 l (two) times a day for 5 days. predniSONE 2021-0 2021- No [id number] 20mg Q.5D Take 1 Methodi (DELTASONE) -01 [...] as needed for nausea or vomiting. ondansetron 2022- No 4mg Q8H Take 1 Met hodi (Zofran) 4 7-18 02-20 tablet (4 st MG tablet 00:00: 00:00 mg total) Ho spita 00 :00 by mouth l every 8 (eight) hours as needed for nausea or vomiting. ondansetron 2022- No 4mg Q8H Take 1 Met hodi (Zofran) 4 7-18 02-20 tablet (4 st MG tablet 00:00: 00:00 mg total) Ho spita 00 :00 by mouth l every 8 (eight) hours as needed for nausea or vomiting. ondansetron 2022-0 2023- No 4mg Q8H Take 1 Met [...] for nausea or vomiting. varicella-z 2021-2021- No [id number] .5mL Inject 0.5 Methodi amanda 09-10- mL into st gE-AS01B, 00:00: 04:59 the Hospita PF, 00 :00 shoulder, l (Shingrix, thigh, or PF,) 50 buttocks mcg/0.5 mL once for 1 suspension dose. for reconstitut ion IM injection varicella-z 2021- No [id number] .5mL Inject 0.5 Methodi amanda 09-10- mL into st gE-AS01B, 00:00: 04:59 the Hospita PF, 00 :00 shoulder, l (Shingrix, thigh, or PF,) 50 buttocks mcg/0.5 mL once for 1 suspension dose. for reconstitut ion IM injection metoprolol 2021-2021- No 25mg Q.5D Take 25 mg Methodi tartrate 07-30 05-[address] (LOPRESSOR) 13:22: 00:00 (two) Hosp noreen 25 mg 59 :00 times a l tablet day. metoprolol 2021- No [id number] 25mg Q.5D Take 1 Methodi tartrate 5- 08-18 tablet (25 st (LOPRESSOR) 00:00: 04:59 mg total) Hospita 25 mg 00 :00 by mouth 2 l tablet (two) times a day for 90 days. metoprolol 2021-2021- No [id number] 25mg Q.5D Take 1 Methodi tartrate 5- 08-18 tablet (25 st (LOPRESSOR) 00:00: 04:59 mg total) Hospita 25 mg 00 :00 by mouth 2 l tablet (two) times a day for 90 days. albuterol 2022- No [id number] INHALE THE Methodi (ACCUNEB) 04-01-[address] 1.25 mg/3 00:00: 00:00 OF 1 VIAL Ho spita mL 00 :00 VIA l nebulizer NEBULIZER solution EVERY 6 (SIX) HOURS NEEDED FOR WHEEZING. albuterol 2022- No [id number] INHALE THE Methodi (ACCUNEB) 04-01-[address] 1.25 mg/3 00:00: 00:00 OF 1 VIAL Ho spita mL 00 :00 VIA l nebulizer NEBULIZER solution EVERY 6 (SIX) HOURS NEEDED FOR WHEEZING. albuterol 2022- No [id number] INHALE THE Methodi (ACCUNEB) 04-01-[address] 1.25 mg/3 00:00: 00:00 OF 1 VIAL Ho spita mL 00 :00 VIA l nebulizer NEBULIZER solution EVERY 6 (SIX) HOURS NEEDED FOR WHEEZING. albuterol 2022- No [id number] INHALE THE Methodi (ACCUNEB) 04-01-[address] 1.25 mg/3 00:00: 00:00 OF 1 VIAL Ho spita mL 00 :00 VIA l nebulizer NEBULIZER solution EVERY 6 (SIX) HOURS NEEDED FOR WHEEZING. albuterol 2022- No [id number] INHALE THE Methodi (ACCUNEB) 04-01-[address] 1.25 mg/3 00:00: 00:00 OF 1 VIAL Ho spita mL 00 :00 VIA l nebulizer NEBULIZER solution EVERY 6 (SIX) HOURS NEEDED FOR WHEEZING. albuterol 2022- No [id number] INHALE THE Methodi (ACCUNEB) 04-01- CONTENTS st 1.25 mg/3 00:00: 00:00 OF 1 VIAL Ho spita mL 00 :00 VIA l nebulizer NEBULIZER solution EVERY 6 (SIX) HOURS NEEDED FOR WHEEZING. albuterol 2022- No [id number] INHALE THE Methodi (ACCUNEB) 04-[address] 1.25 mg/3 00:00: 00:00 OF 1 VIAL Ho spita mL 00 :00 VIA l nebulizer NEBULIZER solution EVERY 6 (SIX) HOURS NEEDED FOR WHEEZING. acarbose 2020-03 Yes [id number] TAKE 1 Me thodi (PRECOSE) 2-[address] 25 MG 00:00: THREE Hospita tablet 00 TIMES l DAILY WITH MEALS acarbose 2020-03 Yes [id number] TAKE 1 Me thodi (PRECOSE) 2-[address] 25 MG 00:00: THREE Hospita tablet 00 TIMES l DAILY WITH MEALS acarbose 2020-03 Yes [id number] TAKE 1 Me thodi (PRECOSE) 2-[address] 25 MG 00:00: THREE Hospita tablet 00 TIMES l DAILY WITH MEALS acarbose 2020-03 Yes [id number] TAKE 1 Me thodi (PRECOSE) 2-[address] 25 MG 00:00: THREE Hospita tablet 00 TIMES l DAILY WITH MEALS acarbose 2020-03 Yes [id number] TAKE 1 Me thodi (PRECOSE) 2-[address] 25 MG 00:00: THREE Hospita tablet 00 TIMES l DAILY WITH MEALS acarbose 2020-03 Yes [id number] TAKE 1 Me thodi (PRECOSE) 2-[address] 25 MG 00:00: THREE Hospita tablet 00 TIMES l DAILY WITH MEALS acarbose 2020-03 Yes [id number] TAKE 1 Me thodi (PRECOSE) 2-[address] 25 MG 00:00: THREE Hospita tablet 00 TIMES l DAILY WITH MEALS DULoxetine 2020-03- No [id number] TAKE 1 [facility]i (CYMBALTA) 03-16 07 CAPSULE(30 st 30 MG 00:00: 00:00 MG) BY Hospita capsule 00 :00 MOUTH l DAILY DULoxetine 2020-03- No [id number] TAKE 1 [facility] (CYMBALTA) 03-16 07 CAPSULE(30 st 30 MG 00:00: 00:00 MG) BY Hospita capsule 00 :00 MOUTH l DAILY levothyroxi 2020-03 Yes [id number] TAKE 1 Methodi ne 0-19 TABLET(25 st (SYNTHROID) 00:00: MCG) BY Hos irena 25 mcg 00 MOUTH l tablet DAILY levothyroxi 2020-03 Yes [id number] TAKE 1 Methodi ne 0-19 TABLET(25 st (SYNTHROID) 00:00: MCG) BY Hos irena 25 mcg 00 MOUTH l tablet DAILY levothyroxi 2020-03 Yes [id number] TAKE 1 Methodi ne 0-19 TABLET(25 st (SYNTHROID) 00:00: MCG) BY Hos irena 25 mcg 00 MOUTH l tablet DAILY levothyroxi 2020-03 Yes [id number] TAKE 1 Methodi ne 0-19 TABLET(25 st (SYNTHROID) 00:00: MCG) BY Hos irena 25 mcg 00 MOUTH l tablet DAILY levothyroxi 2020-03 Yes [id number] TAKE 1 Methodi ne 0-19 TABLET(25 st (SYNTHROID) 00:00: MCG) BY Hos irena 25 mcg 00 MOUTH l tablet DAILY levothyroxi 2020-03 Yes [id number] TAKE 1 Methodi ne 0-19 TABLET(25 st (SYNTHROID) 00:00: MCG) BY Hos irena 25 mcg 00 MOUTH l tablet DAILY levothyroxi 2020-03 Yes [id number] TAKE 1 Methodi ne 0-19 TABLET(25 st [...] 2020-0 3- No For Method i misc 705-[address] 00:00: 00:00 use Hospita 00 :00 l nebulizers 2020-0 3- No For Method i misc 705-[address] 00:00: 00:00 use Hospita 00 :00 l nebulizers 2020-0 3- No For Method i misc 705-[address] 00:00: 00:00 use Hospita 00 :00 l nebulizers 2020-0 3- No For Method i misc 705-[address] 00:00: 00:00 use Hospita 00 [...] Immunizations Ordered Filled Immunization Date Status Comments [facility] e Immunization Name Name Pneumococcal 2021-09-10 Completed [facility] 20-valent Conjugate 00:00:00 Hospi tristan Vaccine Pneumococcal 2021-09-10 Completed [facility] 20-valent Conjugate 00:00:00 [facility] Vaccine Pneumococcal 2021-09-10 Completed [facility] 20-valent Conjugate 00:00:00 [facility]pi [facility] Vaccine PFIZER COVID-19 2021-02-19 Completed [facility] MRNA VACCINATION 00:00:00 [facility] PFIZER COVID-19 2021-02-19 Completed [facility] MRNA VACCINATION 00:00:00 [facility] PFIZER COVID-19 2021-02-19 Completed [facility] MRNA VACCINATION 00:00:00 [facility] PFIZER COVID-19 2020-12-16 Completed [facility] MRNA VACCINATION 00:00:00 [facility] PFIZER COVID-19 2020-12-16 Completed [facility] MRNA VACCINATION 00:00:00 Hospital PFIZER COVID-19 2020-12-16 Completed [facility] MRNA VACCINATION 00:00:00 Hospital PFIZER COVID-19 2020-10-22 Completed [facility] MRNA VACCINATION 00:00:00 Hospital PFIZER COVID-19 2020-10-22 Completed [facility] MRNA VACCINATION 00:00:00 Hospital PFIZER COVID-19 2020-10-22 Completed [facility] MRNA VACCINATION 00:00:00 Hospital FLUZONE HIGH-DOSE 2020-04-[address] PF 00:00:00 Hospital FLUZONE HIGH-DOSE 2020-04-[address] PF 00:00:00 Hospital FLUZONE HIGH-DOSE 2020-04-[address] PF 00:00:00 Hospital FLUZONE HIGH-DOSE Unknown Completed [facility] PFIZER COVID-19 Unknown Completed [facility]RNA VACCINATION Hospital PFIZER COVID-19 Unknown Completed [facility] VACCINATION Hospital PFIZER COVID-19 Unknown Completed [facility] MRNA VACCINATION Hospital Pneumococcal Unknown Completed [facility] 20-valent Conjugate Hospi tristan Vaccine FLUZONE HIGH-DOSE Unknown Completed [facility] PFIZER COVID-19 Unknown Completed [facility] MRNA [facility] COVID-19 Unknown Completed [facility] COVID-19 Unknown Com[facility] Pneumococcal Unknown Completed [facility] Vaccine FLUZONE HIGH-DOSE Unknown [facility] COVID-19 Unknown Com[facility] COVID-19 Unknown [facility] Pneumococcal Unknown Completed [facility]ent [facility] Vaccine FLUZONE HIGH-DOSE Unknown [facility]-19 Unknown Com[facility] COVID-19 Unknown Completed [facility] COVID-19 Unknown Com[facility] Pneumococcal Unknown Completed [facility]ent [facility] Vaccine Vital Signs [...] kg Systolic blood 2023-02-06 15:00:00 127 mm[Hg] [facility] Diastolic blood 2023-02-06 15:00:00 80 mm[Hg] [facility] Heart rate 2023-02-06 15:00:00 74 /min [facility] Body temperature 2023-02-06 15:00:00 36.89 Bijal [facility] Respiratory rate 2023-02-06 15:00:00 19 /min [facility] Oxygen saturation in 2023-02-06 15:00:00 98 /min [facility] Arterial blood by Medical Ce nter Pulse oximetry Body height 2023-02-04 12:15:00 157.5 cm [facility] Body weight 2023-02-04 12:15:00 63 kg [facility] BMI 2023-02-04 12:15:00 25.40 kg/m2 [facility] Heart rate 2022-05-24 13:30:00 78 /min [facility] Systolic blood 2022-05-24 12:27:52 139 mm[Hg] [facility] pressure Diastolic blood 2022-05-24 12:27:52 72 mm[Hg] [facility] pressure Body temperature 2022-05-24 12:27:52 36.44 Bijal [facility] Respiratory rate 2022-05-24 12:27:52 18 /min [facility] Oxygen saturation in 2022-05-24 12:27:52 98 /min [facility] Arterial blood by Pulse oximetry Body weight 2022-05-24 10:37:00 58.514 kg [facility] BMI 2022-05-24 10:37:00 23.59 kg/m2 [facility] Body height 2022-05-22 13:39:00 157.5 cm [facility] Procedures Procedure Date / Time Performing Source Performed Clinician BASIC METABOLIC PANEL 2023-02-[address] [facility] 15:15:00 [facility] CBC (HEMOGRAM ONLY) 2023-02-[address] [facility] 15:14:00 [facility] ECHO W CONTRAST & DOPPLER 2023-02-[address] [facility] 12:02:32 [facility] POCT-GLUCOSE METER 2023-02-[address] [facility] 11:52:00 [facility] OSMOLALITY, URINE 2023-02-06 Petschnigg, Rasheead M [facility] 11:18:00 [facility] PHOSPHORUS 2023-02-06 Petschnigg, Rasheeda M [facility] 09:26:00 [facility] ALBUMIN 2023-02-06 Petschnigg, Rasheeda M [facility] 09:26:00 [facility] BASIC METABOLIC PANEL 2023-02-06 Petschnigg, Rasheeda M [facility] 09:26:00 [facility] MAGNESIUM 2023-02-06 Petschnigg, Rasheeda M [facility] 09:26:00 [facility] POCT-GLUCOSE METER 2023-02-06 Petschnikacie, Rasheeda [facility] 06:26:00 [facility] BASIC METABOLIC PANEL 2023-02-[address] [facility] 04:23:00 [facility] CBC (HEMOGRAM ONLY) 2023-02-[address] [facility] 04:23:00 [facility] POCT-GLUCOSE METER 2023-02-05 Petzane, Rasheeda Chen [facility] 21:04:00 [facility] POCT-ACT 2023-02-[address] [facility] 16:32:00 [facility] POCT-ACT 2023-02-[address] [facility] 16:14:00 [facility] POCT-ACT 2023-02-[address] [facility] 15:55:00 [facility] PERCUTANEOUS CORONARY 2023-02-[address] [facility] INTERVENTION, ARTERY 15:24:00 [facility] ter ECG 12-LEAD 2023-02-05 Unknown, Hl7 [facility] 14:52:08 [facility] ECG 12-LEAD 2023-02-05 Unknown, Hl7 [facility] 14:52:08 [facility] ECG 12-LEAD 2023-02-05 Unknown, Hl7 [facility] 14:52:08 [facility] HIGH SENSITIVITY TROPONIN I 2023-02-05 Petzane, [facility]eda [facility] 14:25:00 [facility] ECG 12-LEAD 2023-02-05 Unknown, Hl7 [facility] 14:05:05 [facility] ECG 12-LEAD 2023-02-05 Unknown, Hl7 [facility] 14:05:05 [facility] ECG 12-LEAD 2023-02-05 Unknown, Hl7 [facility] 14:05:05 [facility] ECG 12-LEAD 2023-02-05 Unknown, Hl7 [facility] 14:04:30 [facility] ECG 12-LEAD 2023-02-05 Unknown, Hl7 [facility] 14:04:30 [facility] ECG 12-LEAD 2023-02-05 Unknown, Hl7 [facility] 14:04:30 [facility] APTT 2023-02-05 Hinkaneema, Bryant [facility] 12:51:00 [facility] POCT-GLUCOSE METER 2023-02-[address] [facility] 12:01:00 [facility] POCT-GLUCOSE METER 2023-02-05 Alexia Ordoneza [facility] 06:40:00 [facility] BASIC METABOLIC PANEL 2023-02-[address] [facility] 06:09:00 [facility] CBC (HEMOGRAM ONLY) 2023-02-[address] [facility] 06:09:00 [facility] LIPID PANEL 2023-02-05 Amparo, Jimbo Ali [facility] 06:09:00 [facility] HEMOGLOBIN A1C 2023-02-05 Amparo, Jimbo Ali [facility] 06:09:00 [facility] APTT 2023-02-[address] [facility] 06:09:00 [facility] MAGNESIUM 2023-02-05 PetAlexia degro[address] M [facility] 06:09:00 [facility] APTT 2023-02-04 Johnie, Bryant [facility] 23:45:00 [facility] POCT-GLUCOSE METER 2023-02-[address] [facility] 21:45:00 [facility] POCT-GLUCOSE METER 2023-02-[address] [facility] 18:26:00 [facility] APTT 2023-02-[address] [facility] 17:23:00 [facility] CBC (HEMOGRAM ONLY) 2023-02-[address] [facility] 17:23:00 [facility] BASIC METABOLIC PANEL 2023-02-[address] [facility] 17:23:00 [facility] ECG 12-LEAD 2023-02-04 Unknown, Hl7 [facility] 14:47:10 [facility] ECG 12-LEAD 2023-02-[address] [facility] 14:47:10 [facility] ECG 12-LEAD 2023-02-04 Unknown, Hl7 [facility] 14:47:10 [facility] ECG 12-LEAD 2023-02-04 Unknown, Hl7 [facility] 14:46:18 [facility] ECG 12-LEAD 2023-02-04 Unknown, Hl7 [facility] 14:46:18 [facility] ECG 12-LEAD 2023-02-04 Unknown, Hl7 [facility] 14:46:18 [facility] POCT-ACT 2023-02-[address] [facility] 12:55:00 [facility] PERCUTANEOUS CORONARY 2023-02-[address] [facility] INTERVENTION, ARTERY 12:10:00 [facility] ter CARDIAC CATH REPORT - SCAN 2023-02-04 Provider, Default [facility] 00:00:00 [facility] EKG-SCANNED 2023-02-04 Provider, Default [facility] 00:00:00 [facility] VASCULAR DIAGRAM -SCAN 2023-02-04 Provider, Default [facility] 00:00:00 [facility] POC GLUCOSE 2022-05-24 Jamia Meehan 13:33:00 [facility] BASIC METABOLIC PANEL 2022-05-24 Jamia Meehan 10:10:00 [facility] CBC WITH PLATELET AND DIFFERENTIAL 2022-05-24 Elvia Meehan 10:10:00 [facility] MAGNESIUM LEVEL 2022-05-24 Jamia Meehan 10:10:00 [facility] ESTIMATED GFR 2022-05-24 Jamia Meehan 10:10:00 [facility] POC GLUCOSE 2022-05-24 Jamia Meehan 01:56:00 [facility] POC GLUCOSE 2022-05-23 Jamia Meehan [facility] 16:39:00 [facility] POC GLUCOSE 2022-05-23 Jamia Meehan [facility] 13:03:00 [facility] BASIC METABOLIC PANEL 2022-05-23 Mari Estrella [facility] 09:18:00 Hospital CBC WITH PLATELET AND DIFFERENTIAL 2022-05-23 Mari Estrella [facility] 09:18:00 Hospital ESTIMATED GFR 2022-05-23 Mari Estrella [facility] 09:18:00 Hospital POC GLUCOSE 2022-05-23 Jamia Meehan [facility] 02:34:00 [facility] POC GLUCOSE 2022-05-22 Jamia Meehan [facility] 23:05:00 [facility] POC GLUCOSE 2022-05-22 Jamia Meehan [facility] 16:54:00 [facility] ESOPHAGOGASTRODUODENOSCOPY (EGD) 2022-05-22 Tray Farfan [facility] 14:12:00 Hospital COLONOSCOPY 2022-05-22 Tray Farfan [facility] 14:12:00 Hospital SURGICAL PATHOLOGY REQUEST 2022-05-22 Zoran Jamia [facility] 13:21:00 [facility] BASIC METABOLIC PANEL 2022-05-22 Mari Estrella [facility] 12:00:00 Hospital CBC WITH PLATELET AND DIFFERENTIAL 2022-05-22 Mari Estrella [facility] 12:00:00 Hospital LIPID PANEL 2022-05-22 Mari Estrella [facility] 12:00:00 Hospital HEMOGLOBIN A1C 2022-05-22 Mari Estrella [facility] 12:00:00 Hospital VITAMIN B12 LEVEL 2022-05-22 Mari Estrella [facility] 12:00:00 Hospital CERULOPLASMIN LEVEL 2022-05-22 Mari Estrella [facility] 12:00:00 Hospital ESTIMATED GFR 2022-05-22 Mari Estrella [facility] 12:00:00 Hospital COPPER LEVEL, SERUM 2022-05-22 Mari Estrella [facility] 11:05:00 Hospital POC GLUCOSE 2022-05-22 Mari Estrella [facility] 04:13:00 Hospital US HEPATIC 2022-05-22 Estrella, Mari My [facility] 02:50:00 Hospital POC GLUCOSE 2022-05-21 Mari Estrella My [facility] 22:18:00 Hospital POC GLUCOSE 2022-05-21 Mari Estrella My [facility] 19:38:00 Hospital POC GLUCOSE 2022-05-21 Mari Estrella My [facility] 19:13:00 Hospital POC GLUCOSE 2022-05-21 Mari Estrella My [facility] 17:59:00 Hospital POC GLUCOSE 2022-05-21 Mari Estrella My [facility] 13:56:00 Hospital CBC WITH PLATELET AND DIFFERENTIAL 2022-05-21 Jose, Sarai [facility] 09:58:00 [facility] COMPREHENSIVE METABOLIC PANEL 2022-05-21 Sarai Garcia [facility] 09:58:00 [facility] ESTIMATED GFR 2022-05-21 Jose, Sarai [facility] 09:58:00 [facility] POC GLUCOSE 2022-05-21 Jose Sarai [facility] 02:44:00 [facility] TROPONIN T 2022-05-21 Jose Sarai [facility] 01:37:00 [facility] TROPONIN T 2022-05-20 Jsoe, Sarai [facility] 23:42:00 [facility] POC GLUCOSE 2022-05-20 Jose, Sarai [facility] 23:41:00 [facility] TRANSFUSE RED BLOOD CELLS 2022-05-20 Soledad Arnold [facility] 22:25:00 [facility] TTE COMPLETE, WO CONTRAST, W 2022-05-20 Sarai Garcia Met [facility] DOPPLER ([id number]) 20:24:00 [facility] TRANSFUSE RED BLOOD CELLS 2022-05-20 Soledad Arnold [facility] 19:43:[address] [facility] [address] ABDOMEN PELVIS W CONTRAST 2022-05-20 Sarai Garcia Met [facility] 19:40:42 [facility] US DUPLEX VENOUS LOWER EXTREMITY 2022-05-20 Soledad Arnoldist BILATERAL 18:53:00 [facility] TROPONIN T 2022-05-20 Jose Sarai [facility] 18:20:00 [facility] ABO AND RH CONFIRMATION BY 2022-05-20 Sarai Garciao dist PROTOCOL 18:20:00 [facility] LA CRITICAL CARE ILL/INJURED 2022-05-20 Soledad Arnold PATIENT INIT 30-74 MIN 17:10:18 [facility] ECG ED PRELIMINARY INTERPRETATION 2022-05-20 Donna Arnold 17:10:18 [facility] COMPREHENSIVE METABOLIC PANEL 2022-05-20 Soledad Arnold [facility] 16:35:00 [facility] CBC WITH PLATELET AND DIFFERENTIAL 2022-05-20 Artemio Arnold 16:35:00 [facility] PROTHROMBIN TIME WITH INR 2022-05-20 Soledad Arnold ist 16:35:00 [facility] PARTIAL THROMBOPLASTIN TIME (PTT) 2022-05-20 Donna Arnold 16:35:00 [facility] TYPE AND SCREEN 2022-05-20 Soledad Arnold 16:35:00 [facility] ESTIMATED GFR 2022-05-20 Soledad Arnold 16:35:00 [facility] SMEAR REVIEW 2022-05-20 Soledad Arnold 16:35:00 [facility] ECG 12-LEAD 2022-05-20 Soledad Arnold 15:57:02 [facility] PREPARE RBC 2022-05-20 Soledad Arnold 15:35:00 [facility] TOTAL IRON BINDING CAPACITY 2022-05-18 Elian Farfanul Daniel [facility] 15:13:00 Hospital FERRITIN LEVEL 2022-05-18 Elian Farfanul Daniel [facility] 15:13:00 Hospital COMPREHENSIVE METABOLIC PANEL 2022-05-18 Naheed Jose Daniel [facility] 15:13:00 Hospital LIPASE LEVEL 2022-05-18 Naheed Jose Daniel [facility] 15:13:00 Hospital CBC WITH PLATELET AND DIFFERENTIAL 2022-05-18 Naheed Jose H aq [facility] 15:13:00 Hospital ESTIMATED GFR 2022-05-18 Naheed Jose Daniel [facility] 15:13:00 Hospital TOTAL IRON BINDING CAPACITY 2022-05-18 Naheed Jose Daniel [facility] 15:13:00 Hospital URINE CULTURE 2022-04-21 Deborah Gomez [facility] 16:01:00 Hospital POC URINALYSIS DIPSTICK 2022-04-21 Deborah Gomez t 15:20:26 Hospital CBC WITH PLATELET AND DIFFERENTIAL 2022-04-21 Deborah Gomez 15:17:00 [facility] BASIC METABOLIC PANEL 2022-04-21 Deborah Gomez 15:17:00 Hospital MRI LUMBAR SPINE WO CONTRAST 2021-09-23 Margy Snyder [facility]ist 13:20:00 [facility] HEMOGLOBIN A1C 2021-09-10 Deborah Gomez 18:40:00 Hospital HEPATITIS C ANTIBODY 2021-09-10 Deborah Gomezist 18:40:00 [facility] MICROALBUMIN / CREATININE URINE 2021-09-10 Deborah Gomez RATIO 18:40:00 Hospital XR LUMBAR SPINE 2 OR 3 VW 2021-08-13 Margy Snyder [facility] 15:48:39 [facility] CBC WITH PLATELET AND DIFFERENTIAL 2021-07-30 Deborah Gomez 18:32:00 [facility] BASIC METABOLIC PANEL 2021-07-30 Deborah Gomez 18:32:00 [facility] LIPID PANEL 2021-07-30 Deborah Gomez 18:32:00 [facility] Plan of Care Planned Activity Planned Date Details Comments Source Future Scheduled 2024-02-[address] [facility] 00:[facility] (12+) [code = Tobacco Cessation Counseling and Screening (12+)] Future Scheduled 2024-02-[address] [facility] Test 00:00[facility]00 [facility] (12+) [code = Tobacco Cessation Counseling and Screening (12+)] Future Scheduled 2023-02-12 [facility] 08:24:31 malignant neoplasm of colon (procedure) [code = 750243917] Future Scheduled 2023-02-12 [facility] 08:24:31 malignant neoplasm of colon (procedure) [code = 369480777] Future Scheduled 2023-02-12 [facility] 08:24:31 malignant neoplasm of colon (procedure) [code = 848120445] Future Scheduled 2023-02-12 SHINGLES VACCINES (1 [facility] Test 08:24:31 of 2) [code = SHINGLES VACCINES (1 of 2)] Future Scheduled 2023-02-12 DIABETES: RETINAL EYE [facility] 08:24:31 EXAM [code = DIABETES: RETINAL EYE EXAM] Future Scheduled 2023-02-12 BREAST CANCER [facility] 08:24:31 SCREENING [code = BREAST CANCER SCREENING] Future Scheduled 2023-02-12 DIABETIC FOOT EXAM [facility] 08:24:31 [code = DIABETIC FOOT EXAM] Future Scheduled 2023-02-12 URINE MICROALBUMIN [facility] 08:24:31 [code = URINE MICROALBUMIN] Future Scheduled 2023-02-12 COVID-19 VACCINE (4 - [facility] 08:24:31 ) [code = COVID-19 VACCINE (4 - season)] Future Scheduled 2023-02-12 [facility] 08:24[facility]31 [code = INFLUENZA VACCINE (#1)] Future Scheduled 2023-02-12 [facility] 08:24:31 malignant neoplasm of colon (procedure) [code = 732557192] Future Scheduled 2023-02-12 [facility] 08:24:31 malignant neoplasm of colon (procedure) [code = 483011166] Future Scheduled 2023-02-12 [facility] 08:24:31 malignant neoplasm of colon (procedure) [code = 603118078] Future Scheduled 2023-02-12 [facility] 08:24:31 malignant neoplasm of colon (procedure) [code = 732179501] Future Scheduled 2023-02-12 [facility] 08:24:31 malignant neoplasm of colon (procedure) [code = 111838321] Future Scheduled 2023-02-12 SHINGLES VACCINES (1 [facility] 08:24:31 of 2) [code = SHINGLES VACCINES (1 of 2)] Future Scheduled 2023-02-12 DIABETES: RETINAL EYE [facility] 08:24:31 EXAM [code = DIABETES: RETINAL EYE EXAM] Future Scheduled 2023-02-12 BREAST CANCER [facility] 08:24:31 SCREENING [code = BREAST CANCER SCREENING] Future Scheduled 2023-02-12 DIABETIC FOOT EXAM [facility] 08:24:31 [code = DIABETIC FOOT EXAM] Future Scheduled 2023-02-12 URINE MICROALBUMIN [facility] 08:24:31 [code = URINE MICROALBUMIN] Future Scheduled 2023-02-12 COVID-19 VACCINE (4 - [facility] 08:24:31 season) [code = COVID-19 VACCINE (4 - season)] Future Scheduled 2023-02-12 INFLUENZA VACCINE (#1) [facility] 08:24:31 [code = INFLUENZA VACCINE (#1)] Future Scheduled 2023-02-12 [facility] 08:24:31 malignant neoplasm of colon (procedure) [code = 292015602] Future Scheduled 2023-02-12 [facility] 08:24:31 malignant neoplasm of colon (procedure) [code = 876740956] Future Scheduled 2023-02-[address] [facility] (procedure[facility] [code = 14752895] Future Scheduled 2023-02-[address] [facility] (procedure) [code = 93574470] Future Scheduled 2023-01-08 [facility] 09:11:14 malignant neoplasm of colon (procedure) [code = 935654474] Future Scheduled 2023-01-08 [facility] 09:11:14 malignant neoplasm of colon (procedure) [code = 161955972] Future Scheduled 2023-01-08 [facility] 09:11:14 malignant neoplasm of colon (procedure) [code = 569014627] Future Scheduled 2023-01-08 SHINGLES VACCINES (1 [facility] 09:11:14 of 2) [code = SHINGLES VACCINES (1 of 2)] Future Scheduled 2023-01-08 DIABETES: RETINAL EYE [facility] 09:11:14 EXAM [code = DIABETES: RETINAL EYE EXAM] Future Scheduled 2023-01-08 BREAST CANCER [facility] 09:11:14 SCREENING [code = BREAST CANCER SCREENING] Future Scheduled 2023-01-08 DIABETIC FOOT EXAM [facility] 09:11:14 [code = DIABETIC FOOT EXAM] Future Scheduled 2023-01-08 URINE MI[facility]ALBUMIN [facility] 09:11:14 [code = URINE MICROALBUMIN] Future Scheduled 2023-01-08 COVID-19 VACCINE (4 - [facility] 09:11:14 ) [code = COVID-19 VACCINE ( - season)] Future Scheduled 2023-01-08 INFLUENZA VACCINE (#1) [facility] 09:11:14 [code = INFLUENZA VACCINE (#1)] Future Scheduled 2023-01-08 [facility] 09:11:14 malignant neoplasm of colon (procedure) [code = 968800156] Future Scheduled 2023-01-08 [facility] 09:11:14 malignant neoplasm of colon (procedure) [code = 018777217] Future Scheduled 2022-12-12 Medicare IPPE (WELCOME [facility] TO MEDICARE) [code = Medical Center Medicare IPPE (WELCOME TO MEDICARE)] Future Scheduled 2022-12-12 Medicare IPPE (WELCOME [facility] 00:00:00 TO MEDICARE) [code = Medical Center Medicare IPPE (WELCOME TO MEDICARE)] Future Scheduled 2022-12-06 [facility] 12:51:20 malignant neoplasm of colon (procedure) [code = 126561643] Future Scheduled 2022-12-06 [facility] 12:51:20 malignant neoplasm of colon (procedure) [code = 746776378] Future Scheduled 2022-12-06 [facility] 12:51:20 malignant neoplasm of colon (procedure) [code = 855446784] Future Scheduled 2022-12-06 SHINGLES VACCINES (1 [facility] 12:51:20 of 2) [code = SHINGLES VACCINES (1 of 2)] Future Scheduled 2022-12-06 DIABETES: RETINAL EYE [facility] 12:51:20 EXAM [code = DIABETES: RETINAL EYE EXAM] Future Scheduled 2022-12-06 BREAST CANCER [facility] 12:51:20 SCREENING [code = BREAST [...] VACCINE (#1)] Future Scheduled 2022-12-06 [facility] 12:51:20 malignant neoplasm of colon (procedure) [code = 927740273] Future Scheduled 2022-12-06 [facility] 12:51:20 malignant neoplasm of colon (procedure) [code = 579665729] Future Scheduled 2022-11-17 [facility] 20:12:18 malignant neoplasm of colon (procedure) [code = 679472128] Future Scheduled 2022-11-17 [facility] 20:12:18 malignant neoplasm of colon (procedure) [code = 702499774] Future Scheduled 2022-11-17 [facility] 20:12:18 malignant neoplasm of colon (procedure) [code = 826703217] Future Scheduled 2022-11-17 SHINGLES VACCINES (1 [facility] 20:12:18 of 2) [code = SHINGLES VACCINES (1 of 2)] Future Scheduled 2022-11-17 DIABETES: RETINAL EYE [facility] Test 20:12:18 EXAM [code = DIABETES: RETINAL EYE EXAM] Future Scheduled 2022-11-17 BREAST CANCER [facility] 20:12:18 SCREENING [code = BREAST CANCER SCREENING] Future Scheduled 2022-11-17 COVID-19 VACCINE (4 - [facility] 20:12:18 Pfizer series) [code = [...] VACCINE (#1)] Future Scheduled 2022-11-17 [facility] 20:12:18 malignant neoplasm of colon (procedure) [code = 301511251] Future Scheduled 2022-11-17 [facility] 20:12:18 malignant neoplasm of colon (procedure) [code = 278804675] Future Scheduled 2022-11-12 Influenza Vaccine (#1) [facility]00 [code = Influenza Medical Ce nter Vaccine (#1)] Future Scheduled 2022-11-12 Influenza Vaccine (#1) [facility] 00:00:00 [code = Influenza Medical Ce nter Vaccine (#1)] Future Scheduled 2022-09-10 Urine screening for [facility] 00:00:00 protein (procedure) [facility] [code = 587966113] Future Scheduled 2022-09-10 Urine screening for [facility] 00:00:00 protein (procedure) [facility] [code = 856684299] Future Scheduled 2022-07-28 SHINGLES VACCINES (1 Met [facility] Test 07:13:53 of 2) [code = SHINGLES VACCINES (1 of 2)] Future Scheduled 2022-07-28 DIABETES: RETINAL EYE [facility] Test 07:13:53 EXAM [code = DIABETES: RETINAL EYE EXAM] Future Scheduled 2022-07-28 BREAST CANCER [facility] Test 07:13:53 SCREENING [code = BREAST CANCER SCREENING] Future Scheduled 2022-07-28 COVID-19 VACCINE (4 - [facility] Test 07:13:53 Booster for Pfizer series) [...] VACCINE] Future Scheduled 2022-07-28 COLONOSCOPY SCREENING [facility] Test 07:13:53 [code = COLONOSCOPY SCREENING] Future Scheduled 2022-05-27 SHINGLES VACCINES (1 Met [facility] Test 10:06:33 of 2) [code = SHINGLES VACCINES (1 of 2)] Future Scheduled 2022-05-27 DIABETES: RETINAL EYE [facility] Test 10:06:33 EXAM [code = DIABETES: RETINAL EYE EXAM] Future Scheduled 2022-05-27 COLONOSCOPY SCREENING [facility] Test 10:06:33 [code = COLONOSCOPY SCREENING] Future Scheduled 2022-05-27 BREAST CANCER [facility] 10:06:33 SCREENING [code = BREAST CANCER SCREENING] Future Scheduled 2022-05-27 COVID-19 VACCINE (4 - [facility] Test 10:06:33 Booster for Pfizer series) [code = COVID-19 VACCINE (4 - Booster for Pfizer series)] Future Scheduled 2022-05-27 INFLUENZA VACCINE [facility] 10:06:33 [code = INFLUENZA VACCINE] Future Scheduled 2022-05-27 DIABETIC FOOT EXAM [facility] Test 10:06:33 [code = DIABETIC FOOT EXAM] Future Scheduled 2022-05-27 URINE MICROALBUMIN [facility] Test 10:06:33 [code = URINE MICROALBUMIN] Future Scheduled 2022-03-[address] [facility] Test 00:00:00 (12+) [code = Medical Center DEPRESSION SCREENING (12+)] Future Scheduled 2022-03-14 FALLS RISK SCREENING [facility] Test 00:00:00 [code = FALLS RISK Medical C enter SCREENING] Future Scheduled 2022-03-[address] [...] VACCINE (4 - Pfizer series)] Future Scheduled 2021-04-16 COVID-19 VACCINE (4 [facility]00 Pfizer series) [code = Medic al Center COVID-19 VACCINE (4 - Pfizer series)] Future Scheduled 2004 SHINGLES VACCINES ([address] [facility] Test 00:00:00 of 2) [code = SHINGLES Medic al Center VACCINES (1 of 2)] Future Scheduled 2004 SHINGLES VACCINES ([address] [facility] Test 00:00:00 of 2) [code = SHINGLES Medic al Center VACCINES (1 of 2)] Future Scheduled 1973 DTAP/TDAP/TD [facility]ACCINES [facility] Test 00:00:00 (1 - Tdap) [code = Medical C enter DTAP/TDAP/TD VACCINES (1 - Tdap)] Future Scheduled 1973 DTAP/TDAP/TD VACCINES [facility] Test 00:00:00 (1 - Tdap) [code = Medical C enter DTAP/TDAP/TD VACCINES (1 - Tdap)] Future Scheduled 1972 HEPATITIS C SCRE[facility]ING [facility] Test 00:00:00 [code = HEPATITIS C Medical Center SCREENING] Future Scheduled 1972 HEPATITIS C [facility]CRE[facility]ING [facility] Test 00:00:00 [code = HEPATITIS C Medical Center SCREENING] Future Scheduled 1964 DIABETIC EYE EXAM [facility] Test 00:00:00 [code = DIABETIC EYE Medical Center EXAM] Future Scheduled [address] [facility] 00[facility] examination Medical Center (regime/therapy) [code = 033325349] Future Scheduled 1964 DIABETIC EYE EXAM [facility] Test 00:00:00 [code = DIABETIC EYE Medical Center EXAM] Future Scheduled [address] [facility] Test 00:00:00 examination Medical Center (regime/therapy) [code = 177682823] Future Scheduled 1960 PNEUMOCOCCAL 65+ [facility] Test 00:00:00 (1 - PCV) [code = Medical Ce nter PNEUMOCOCCAL 65+ YRS (1 - PCV)] Future Scheduled 1960 PNEUMOCOCCAL 65+ Y[facility] Test 00:00:00 (1 - PCV) [code = Medical Ce nter PNEUMOCOCCAL 65+ YRS (1 - PCV)] Future Scheduled [address] [facility] Test 00:00:00 malignant neoplasm of Medica l Center breast (procedure) [code = 771832961] Future Scheduled [address] [facility] Test 00:00:00 (combo) [code = CT Medical C enter Colonography (combo)] Future Scheduled [address] [facility] Test 00:00:00 malignant neoplasm of [facility] Center colon (procedure) [code = 847859903] Future Scheduled [address] [facility] Test 00:00:00 malignant neoplasm of [facility] Center colon (procedure) [code = 988780494] Future Scheduled 1954 DXA SCAN [code = DXA [facility] Test 00:00:00 SCAN] [facility] Future Scheduled [address] [facility] Test 00:00:00 malignant neoplasm of [facility] Center colon (procedure) [code = 671939728] Future Scheduled [address] [facility] Test 00:00:00 malignant neoplasm of [facility]ica [facility] Center colon (procedure) [code = 386709393] Future Scheduled 1954 Sigmoidoscopy [code = [facility] 00:[facility] Sigmoidoscopy] [facility] Future Scheduled [address] [facility] Test 00:00:00 malignant neoplasm of Medica l Center breast (procedure) [code = 695535769] Future Scheduled [address] [facility] Test 00:00:00 (combo) [code = CT Medical C enter Colonography (combo)] Future Scheduled [address] [facility] Test 00:00:00 malignant neoplasm of [facility]ica [facility] Center colon (procedure) [code = 207925394] Future Scheduled [address] [facility] Test 00:00:00 malignant neoplasm of Medica l Center colon (procedure) [code = 046541050] Future Scheduled 1954 DXA SCAN [code = DXA [facility] Test 00:00:00 SCAN] [facility] Future Scheduled [address] [facility] Test 00:00:00 malignant neoplasm of Medica l Center colon (procedure) [code = 920644602] Future Scheduled [address] [facility] Test 00:00:00 malignant neoplasm of Medica l Center colon (procedure) [code = 774388301] Future Scheduled 1954 Sigmoidoscopy [code = [facility] Test 00[facility]00:[facility] Sigmoidoscopy] Medical Cente r Encounters Start End Encounter Admission Attending Care Care Encounter Source Date/Time Date/Time Type Type Clinicians Facility Department ID 2023-02-06 Inpatient MERY [facility] [id number] [facility] 09:16:07 RASHEEDA 2019-10-03 Inpatient Jonathon Phillips [facility] JUANITA [id number] Medical 09:27:00 Jonathon Phillips [facility] 2023-02-09 2023-02-09 [facility] [id number] 00:[facility] 00[facility]00[facility]00 [facility] 2023-02-09 2023-02-09 [facility] [id number] 00:[facility] 00:00[facility]00 [facility] 2023-02-04 2023-02-06 [facility] Luis Bowen [facility] [id number] 12:45[facility]00 18:22:00 [facility] 2023-02-06 Inpatient ER MERY [facility] Surgery [id number] [facility] 12:45:00 18:22:00 DUGWAY 2023-02-04 2023-02-06 [facility] Luis Bowen [facility] [id number] 12:45:00 18:22:00 Encounter Jimbo Christensen [facility] 2023-02-05 2023-02-05 [facility] [id number] 15:25:00 19:06:00 [facility] 2023-02-05 2023-02-05 [facility] [id number] 15:25:00 19:06:00 [facility] 2023-02-04 2023-02-04 [facility] [id number] 12:26:00 16:07:00 [facility] 2023-02-04 2023-02-04 Surgery [employer], [facility] [id number] 12:26:00 16:07:00 [facility] 2023-02-04 2023-02-[address] [facility] [id number] 00:00:00 00:00:00 [facility] 2023-02-04 2023-02-[address] [facility] [id number] 00:00:00 00:00:00 [facility] 2023-01-25 2023-01-25 Outpatient GC_CCW_Rami PRIV PRIV [id number] [facility] 00:00:00 00:00:00 neni_R [id number] Medica l 2022-12-28 2022-12-28 Outpatient GC_CCW_Rami PRIV PRIV [id number] [facility] 00:00:00 00:00:00 neni_R [id number] Medica l 2022-11-30 2022-11-30 Outpatient GC_CCW_Rami PRIV PRIV 271 [id number] [facility] 00:00:00 00:00:00 neni_R [id number] Medica l 2022-07-16 2022-07-16 Outpatient DMG [facility] 00:00:00 00:00:00 [id number] Medica l Group 2022-07-16 2022-07-16 Outpatient DMG [facility] 00:00:00 00:00:00 [id number] Medica l Group 2022-07-15 2022-07-15 Outpatient DMG [facility] 00:00:00 00:00:00 [id number] Medica l Group 2022 2022 Patient Dove, 1.2.840.1 [id number] Methodi 00:00:00 00:00:00 Outreach Mickie 71670.1.[address] 3.430.2.7 Hospit a .3.027150 l .8 2022 2022 Patient Dove, 1.2.840.1 [id number] Methodi 00:00:00 00:00:00 Outreach Mickie 64467.1.[address] 3.430.2.7 Hospit a .3.143710 l .8 2022-07-07 2022-07-07 Patient Dove, 1.2.840.1 [id number] 6893 Methodi 00:00:00 00:00:00 Outreach Mickie 64561.1.[address] 3.430.2.7 Hospit a .3.098110 l .8 2022-07-07 2022-07-07 Patient Dove, 1.2.840.1 [id number] 7410 Methodi 00:00:00 00:00:00 Outreach Mickie 02214.1.[address] 3.430.2.7 Hospit a .3.828773 l .8 2022-06-30 2022-06-30 Outpatient EBONY 2.16.840.1. 1 [id number] 12:37:00 12:37:00 Encounter E [id number]. [facility] [id number] [facility] 2022-06-30 2022-06-30 Outpatient 3 BEST, ALTHEA HVLMo DEX 474 Genny 07:37:00 07:37:00 0419 lle Memoria l 2022-06-29 2022-06-29 Patient Dove, 1.2.840.1 [id number] Methodi 00:00:00 00:00:00 Outreach Mickie 06484.1.[address] 3.430.2.7 Hospit a .3.547874 l .8 2022-06-29 2022-06-29 Patient Dove, 1.2.840.1 [id number] 0349 Methodi 00:00:00 00:00:00 Outreach Mickie 01097.1.[address] 3.430.2.7 Hospit a .3.842067 l .8 2022-06-23 2022-06-23 Patient Pablito, 1.2.840.1 [id number] 2787 Methodi 00:00:00 00:00:00 Outreach Osmanutina 81703.1.[address] 3.430.2.7 Hospit a .3.520435 l .8 2022-06-23 2022-06-23 Patient Pablito, 1.2.840.1 [id number] 7658 Methodi 00:00:00 00:00:00 Outreach Krutina 17779.1.[address] 3.430.2.7 Hospit a .3.721512 l .8 2022-06-22 2022-06-22 Patient Dove, 1.2.840.1 [id number] 7948 Methodi 00:00:00 00:00:00 Outreach Mickie 74111.1.[address] 3.430.2.7 Hospit a .3.452210 l .8 2022-06-22 2022-06-22 Patient Dove, 1.2.840.1 [id number] 4341 Methodi 00:00:00 00:00:00 Outreach Mickie 38655.1.[address] 3.430.2.7 Hospit a .3.335760 l .8 2022-06-09 2022-06-09 Patient Pablito, 1.2.840.1 [id number] 2347 Methodi 00:00:00 00:00:00 Outreach Osmanutina 44157.1.[address] 3.430.2.7 Hospit a .3.256962 l .8 2022-06-09 2022-06-09 Patient Pablito, 1.2.840.1 [id number] 2118 Methodi 00:00:00 00:00:00 Outreach Osmanutina 88385.1.[address] 3.430.2.7 Hospit a .3.912097 l .8 2022-06-08 2022-06-08 Outpatient GC_CCW_Rami PRIV PRIV [id number] [facility] 00:00:00 00:00:00 neni_R [id number] Medica l 2022-06-03 2022-06-03 Outpatient GC_CCW_Rami PRIV PRIV 271 [id number] [facility] 00:00:00 00:00:00 neni_R [id number] Medica l 2022-05-27 2022-05-27 Telephone Jose Farfan 1.2.840.1 [id number] Methodi 00:00:00 00:00:[address] 3.430.2.7 Hospit a .3.915579 l .8 2022-05-27 2022-05-27 Telephone Jose Farfan 1.2.840.1 [id number] Methodi 00:00:00 00:00:[address] 3.430.2.7 Hospit a .3.423480 l .8 2022-05-20 2022-05-24 [facility] Soledad Beltranleigh 1.2.840. 1 [id number] Methodi 09:49:00 14:24:00 Encounter Sulema Benito 03354.1.[address] Kura, Sarai Methuku 3.430.2.7 [facility]ospita Estrella, Mari My .3.463395 Jamia Hunt .8 2022-05-20 2022-05-24 [facility].2.840. 1 [id number] Methodi 09:49:00 14:24:00 Encounter Sulema Benito 93522.1.[address] Kura, Sarai Methuku 3.430.2.7 Hospita Jovanny Estrellayen My .3.831396 Jamia Hunt .8 2022-05-22 2022-05-22 Anesthesia Hurtado, 1.2.840.1 [id number] 081 [id number] Methodi 08:12:00 09:05:00 Event Raffaele 04931.1.[address] 3.430.2.7 Hospit a .3.951779 l .8 2022-05-22 2022-05-22 Anesthesia Hurtado, 1.2.840.1 [id number] Methodi 08:12:00 09:05:00 Event Raffaele 38209.1.[address] 3.430.2.7 Hospit a .3.543036 l .8 2022-05-22 2022-05-22 Surgery Farfan, Jose 1.2.840.1 [id number] 21 [id number] Methodi 08:00:00 08:30:[address] 3.430.2.7 Hospit a .3.491132 l .8 2022-05-22 2022-05-22 Surgery Naheed, Jose 1.2.840.1 [id number] 21 [id number] Methodi 08:00:00 08:30:[address] 3.430.2.7 Hospit a .3.448695 l .8 2022-05-18 2022-05-18 Lab Naheed, Jose 1.2.840.1 [id number] 21 [id number] Methodi 09:15:00 09:20:[address] 3.430.2.7 Hospit a .3.980755 l .8 2022-05-18 2022-05-18 Lab Farfan, Jose 1.2.840.1 [id number] 21 [id number] Methodi 09:15:00 09:20:[address] 3.430.2.7 Hospit a .3.314760 l .8 2022-05-18 2022-05-18 Office Farfan, Jose 1.2.840.1 [id number] 21 [id number] Methodi 08:00:00 08:50:33 Visit Daniel 18713.1.[address] 3.430.2.7 Hospit a .3.605622 l .8 2022-05-18 2022-05-18 Office Farfan, Jsoe 1.2.840.1 [id number] 21 [id number] Methodi 08:00:00 08:50:33 Visit Daniel 77689.1.[address] 3.430.2.7 Hospit a .3.296994 l .8 2022-05-18 2022-05-18 Travel 1.2.840.1 1.2.631.281 0179 [id number] Methodi 00:00:00 00:00:[address] 3.430.2.7 0.2.7.3.698 Ho spita .3.171174 084.8 l .8 2022-05-18 2022-05-18 Travel 1.2.840.1 1.2.115.741 0661 [id number] Methodi 00:00:00 00:00:[address] 3.430.2.7 0.2.7.3.698 Ho spita .3.006734 084.8 l .8 2022-05-14 2022-05-14 Telephone Gomez, 1.2.840.1 [id number] Methodi 00:00:00 00:00:[address] 3.430.2.7 Hospit a .3.481885 l .8 2022-05-14 2022-05-14 Telephone Gomez, 1.2.840.1 [id number] Methodi 00:00:00 00:00:[address] 3.430.2.7 Hospit a .3.936028 l .8 2022-05-06 2022-05-06 Telephone Gomez, 1.2.840.1 [id number] 25116 Methodi 00:00:00 00:00:[address] 3.430.2.7 Hospit a .3.355104 l .8 2022-05-06 2022-05-06 Telephone Gomez, 1.2.840.1 [id number] 06473 50437 Methodi 00:00:00 00:00:[address] 3.430.2.7 Hospit a .3.284998 l .8 2022-05-03 2022-05-03 Office Gomez, 1.2.840.1 [id number] 901 Methodi 10:00:00 10:11:51 Visit Deborah 16856.1.[address] 3.430.2.7 Hospit a .3.326562 l .8 2022-05-03 2022-05-03 Office Gomez, 1.2.840.1 [id number] 901 Methodi 10:00:00 10:11:51 Visit Deborah 04049.1.[address] 3.430.2.7 Hospit a .3.147929 l .8 2022-05-03 2022-05-03 Travel 1.2.840.1 1.2.541.551 3368 944593 Methodi 00:00:00 00:00:[address] 3.430.2.7 0.2.7.3.698 Ho spita .3.740785 084.8 l .8 2022-05-03 2022-05-03 Travel 1.2.840.1 1.2.437.200 8806 372686 Methodi 00:00:00 00:00:[address] 3.430.2.7 0.2.7.3.698 Ho spita .3.373738 084.8 l .8 2022-04-21 2022-04-21 Office Gomez, 1.2.840.1 [id number] 263 Methodi 09:00:00 09:25:59 Visit Deborah 03201.1.[address] 3.430.2.7 Hospit a .3.134407 l .8 2022-04-21 2022-04-21 Office Gomez, 1.2.840.1 [id number] 263 Methodi 09:00:00 09:25:59 Visit Deborah 95689.1.[address] 3.430.2.7 Hospit a .3.858856 l .8 2022-04-20 2022-04-20 Travel 1.2.840.1 1.2.304.647 5742 683448 Methodi 00:00:00 00:00:[address] 3.430.2.7 0.2.7.3.698 Ho spita .3.354425 084.8 l .8 2022-04-20 2022-04-20 Travel 1.2.840.1 1.2.631.256 7767 841875 Methodi 00:00:00 00:00:[address] 3.430.2.7 0.2.7.3.698 Ho spita .3.955693 084.8 l .8 2022-04-19 2022-04-19 Telephone Jose Farfan 1.2.840.1 [id number] Methodi 00:00:00 00:00:[address] 3.430.2.7 Hospit a .3.647037 l .8 2022-04-19 2022-04-19 Telephone Jose Farfan 1.2.840.1 [id number] Methodi 00:00:00 00:00:[address] 3.430.2.7 Hospit a .3.534270 l .8 2021-10-08 2021-10-08 Refritesh Haider, 1.2.840.1 [id number] 1834 Methodi 00:00:00 00:00:00 Bernard 38271.1.1 [address] 3.430.2.7 Hospit a .3.209962 l .8 2021-10-05 2021-10-05 Travel 1.2.840.1 1.2.906.189 0702 584553 Methodi 00:00:00 00:00:[address] 3.430.2.7 0.2.7.3.698 Ho spita .3.382277 084.8 l .8 2021-10-02 2021-10-02 Sarah Hess 1.2.840.1 [id number] 975 [id number] Methodi 00:00:00 00:00:[address] 3.430.2.7 Hospit a .3.216651 l .8 2021-10-01 2021-10-01 Telemedici Gomez, 1.2.840.1 [id number] 2099 [id number] Methodi 12:40:00 12:40:00 ne Deborah 38120.1.[address] 3.430.2.7 Hospit a .3.430248 l .8 2021-09-30 2021-09-30 Travel 1.2.840.1 1.2.153.973 8422 193204 Methodi 00:00:00 00:00:[address] 3.430.2.7 0.2.7.3.698 Ho spita .3.503131 084.8 l .8 2021-09-29 2021-09-29 Telephone Violette, 1.2.840.1 [id number] 2099 [id number] Methodi 00:00:00 00:00:[address] 3.430.2.7 Hospit a .3.426321 l .8 2021-09-28 2021-09-28 Orders Gomez, 1.2.840.1 [id number] 440 Methodi 00:00:00 00:00:00 Only Deborah 94382.1.[address] 3.430.2.7 Hospit a .3.078508 l .8 2021-09-28 2021-09-28 Telephone Patricia, 1.2.840.1 [id number] 49279 04661 Methodi 00:00:00 00:00:[address] 3.430.2.7 Hospit a .3.909273 l .8 2021-09-25 2021-09-25 Virtual Estrellita Choudhury 1.2.840.1 [id number] 149 [id number] Methodi 16:30:00 17:02:[address] Care 3.430.2.7 Hospit a .3.470682 l .8 2021-09-25 2021-09-25 Outpatient [facility] [id number] [address] [place] 00:00:00 00:00:[address] 2021-09-25 2021-09-25 Telephone Gomez, 1.2.840.1 [id number] 01826 33249 Methodi 00:00:00 00:00:[address] 3.430.2.7 Hospit a .3.349650 l .8 2021-09-23 2021-09-23 Hospital Gomez, 1.2.840.1 [id number] 12756 37203 Methodi 06:48:07 23:59:00 Encounter Deborah 25092.1.[address] 3.430.2.7 Hospit a .3.990359 l .8 2021-09-22 2021-09-22 Travel 1.2.840.1 1.2.496.911 7907 988781 Methodi 00:00:00 00:00:[address] 3.430.2.7 0.2.7.3.698 Ho spita .3.778442 084.8 l .8 2021-09-11 2021-09-11 Refill Jeanette, 1.2.840.1 [id number] 6040 Methodi 00:00:00 00:00:[address] [place] 3.430.2.7 Hospit a .3.623422 l .8 2021-09-10 2021-09-10 Office Gomez, 1.2.840.1 [id number] 526 Methodi 13:00:00 13:43:26 Visit Deborah 66919.1.[address] 3.430.2.7 Hospit a .3.233718 l .8 2021-09-10 2021-09-10 Travel 1.2.840.1 1.2.988.783 7463 724579 Methodi 00:00:00 00:00:[address] 3.430.2.7 0.2.7.3.698 Ho spita .3.719374 084.8 l .8 2021-09-082021-09-08 Patient Ted, 1.2.840.1 [id number] Methodi 00:00:00 00:00:00 Outreach Jamia 08132.1.[address] 3.430.2.7 Hospit a .3.973217 l .8 2021-08-14 2021-08-14 Travel 1.2.840.1 1.2.800.723 0934 203191 Methodi 00:00:00 00:00:[address] 3.430.2.7 0.2.7.3.698 Ho spita .3.349882 084.8 l .8 2021-08-13 2021-08-13 Office [place], 1.2.840.1 [id number] 127513 2182 Methodi 11:00:00 13:40:00 Visit Margy 15619.1.[address] Nava 3.430.2.7 Hospit a .3.576976 l .8 2021-08-13 2021-08-13 Outpatient [facility] [id number] [address] [place] 00:00:00 00:00:[address] 2021-08-11 2021-08-11 Travel 1.2.840.1 1.2.121.032 1971 458347 Methodi 00:00:00 00:00:[address] 3.430.2.7 0.2.7.3.698 Ho spita .3.879475 084.8 l .8 2021-07-30 2021-07-30 Office Gomez, 1.2.840.1 [id number] 245 Methodi 13:00:00 13:25:42 Visit Deborah 14502.1.[address] 3.430.2.7 Hospit a .3.122983 l .8 2021-07-30 2021-07-30 Travel 1.2.840.1 1.2.169.380 0108 666816 Methodi 00:00:00 00:00:[address] 3.430.2.7 0.2.7.3.698 Ho spita .3.710337 084.8 l .8 2021-07-28 2021-07-28 Documentat Haider, 1.2.840.1 [id number] 100 [id number] Methodi 00:00:00 00:00:00 ion Violet 55301.1.[address] [place] 3.430.2.7 Hos irena .3.026062 l .8 2021-07-27 2021-07-27 Travel 1.2.840.1 1.2.350.966 1392 911457 Methodi 00:00:00 00:00:[address] 3.430.2.7 0.2.7.3.698 Ho spita .3.680333 084.8 l .8 2021-02-19 2021-02-19 Outpatient BURNETTE, [facility] [id number] [address] [place] 00:00:00 00:00:00 BUTCH 721 Method i 2021-02-19 2021-02-19 Outpatient [facility] [id number] 566 [place] 00:00:00 00:00:00 989 Method i 2021-01-26 2021-01-26 Outpatient BURNETTE, [facility] [id number] 543 [place] 00:00:00 00:00:00 BUTCH 356 Method i 2021-01-05 2021-01-05 Outpatient GOMEZ, [facility] [id number] [address] [place] 00:00:00 00:00:00 DEBORAH 021 Method i 2021-01-05 2021-01-05 Outpatient [facility] [id number] [address] [place] 00:00:00 00:00:00 128 Method i 2020-12-16 2020-12-16 Outpatient GOMEZ, [facility] [id number] 592 [place] 00:00:00 00:00:00 DEBORAH [address] 2020-12-16 2020-12-16 Outpatient [facility] [id number] 993 [place] 00:00:00 00:00:00 611 Method i 2020-10-22 2020-10-22 Outpatient [facility] [id number] [address] [place] 00:00:00 00:00:[address] 2020-10-22 2020-10-22 Outpatient CHERIE, DIANA [facility] 196 [id number] [place] 00:00:00 00:00:[address] 2020-10-22 2020-10-22 Outpatient MARIELOS RIVERO [facility] 291 [id number] [place] 00:00:00 00:00:[address] 2020-10-16 2020-10-16 Outpatient ISMA [facility] [id number] [facility] 00:00:00 00:00:00 MOLDEBOT [facility] 2020-10-09 2020-10-09 Outpatient JEANETTE, [facility] [id number] [address] [place] 00:00:00 00:00:00 MOHAMMED [address] 2020-09-24 2020-09-24 Outpatient GOMEZ, [facility] [id number] 851 [place] 00:00:00 00:00:00 DEBORAH [address] 2020-08-14 2020-08-14 Outpatient [facility] [id number] 791 [place] 00:00:00 00:00:[address] 2020-07-18 2020-07-18 Outpatient JUANITA CRESPOA [facility] 991 [id number] [place] 00:00:00 00:00:[address] 2020-07-08 2020-07-08 Outpatient RAMINENI, [facility] [id number] [place] 00:00:00 00:00:00 VENICE [address] 2020-07-07 2020-07-07 Emergency [facility] [id number] [place] 00:00:00 00:00:[address] 2020-07-04 2020-07-04 Outpatient RAMINENI, [facility] [id number] [place] 00:00:00 00:00:00 VENICE [address] 2020-07-02 2020-07-02 Outpatient JEANETTE, [facility] [id number] [place] 00:00:00 00:00:00 [address] 2020-06-04 2020-06-04 Outpatient JEANETTE, [facility] [id number] [place] 00:00:00 00:00:00 MOHAMMED 776 [address]to[address] 2020-04-24 2020-04-24 Outpatient DIANA CRESPO [facility] [id number] [place] 00:00:00 00:00:00 [address] 2020-04-10 2020-04-12 Inpatient VIVIANA [facility] [id number] [place] 00:00:00 00:00:00 ROLLY [address] 2019-10-29 2019-10-29 Outpatient NANCY JOYCE NANCY AE [id number] [place] 09:43:00 09:43:[address] 2019-10-07 2019-10-07 Emergency [facility] [id number] Medical 12:55:00 12:55:00 [facility] 2019-10-07 2019-10-07 Emergency 1 Abimael Lafleur [facility] [id number] Medical 12:55:00 12:55:00 Abimael Lafleur -[id number] [facility] 2019-10-04 2019-10-04 Outpatient 3 Jacqueline Jonathon [facility] JUANITA [id number] Medical 06:02:00 06:02:00 Jonathon Phillips -20 [id number] [facility] 2019-09-18 2019-09-18 Outpatient NANCY JOYCE NANCY AE [id number] [place] 15:35:00 15:35:[address] 2019-09-13 2019-09-13 Emergency [facility] [id number] Medical 12:30:00 12:30:00 [facility] 2016-08-15 2016-08-15 Inpatient E [facility] MED [id number] Medical 19:45:00 15:34:00 [facility] 2016-05-03 2016-05-03 Emergency E [facility] [id number] Medical 12:46:00 12:46:00 [facility] 2016-04-23 2016-04-23 Emergency E [facility] MED [id number] Medical 09:15:00 09:15:00 [facility] Results Test Description Test Time Test Comments Results Result Sourc e Comments VASCULAR DIAGRAM Ordered by an [facility] -SCAN 4 unspecified provider. Med ical 13:38:50 Center VASCULAR DIAGRAM Ordered by an [facility] -SCAN 1 unspecified provider. Med ical 14:20:15 Center CARDIAC CATH 2023-01-[address] [facility] REPORT - SCAN 7 unspecified provider. Medical 14:35:13 Center CARDIAC CATH 2023-01-[address] [facility] REPORT - SCAN 7 unspecified provider. Medical 14:35:13 Center CARDIAC CATH 2023-01-[address] [facility] REPORT - SCAN 7 unspecified provider. Medical 14:34:13 Center CARDIAC CATH 2023-01-[address] [facility] REPORT - SCAN 7 unspecified provider. Medical 14:34:13 Center ECG 12 lead 2023-01-13 Ventricular Rate [address] [facility] 7 BPMAtrial Rate 76 Medical 06:17:02 BPMP-R Interval 152 Cente r msQRS Duration 94 msQ-T Interval 570 msQTC Calculation(Bazett) 641 msP [place] 82 degreesR [place] 50 degreesT [place] 233 degrees Sinus rhythm with Premature supraventricular complexesInferior infarct (cited on or before 04-FEB-2023)ST & Marked T wave abnormality, consider anterolateral ischemiaProlonged QTAbnormal ECGWhen compared with ECG of 05-FEB-2023 14:05,Premature supraventricular complexes are now PresentConfirmed by MD LAO JOSEPH P ([id number]) on 02/07/2023 6:16:57 AM ECG 12 lead 2023-01-13 Ventricular Rate [address] [facility] 7 BPMAtrial Rate 76 Medical 06:17:02 BPMP-R Interval 152 Cente r msQRS Duration 94 msQ-T Interval 570 msQTC Calculation(Bazett) 641 msP [place] 82 degreesR [place] 50 degreesT [place] 233 degrees Sinus rhythm with Premature supraventricular complexesInferior infarct (cited on or before 04-FEB-2023)ST & Marked T wave abnormality, consider anterolateral ischemiaProlonged QTAbnormal ECGWhen compared with ECG of 05-FEB-2023 14:05,Premature supraventricular complexes are now PresentConfirmed by MD LAO JOSEPH P ([id number]) on 02/07/2023 6:16:57 AM BASIC METABOLIC PANEL [...] s not applicable for dialysis maria mccoy [employer] ID - ADMINBASIC METABOLIC [id number] 15:42:10 Test Item Value Reference Range Interpretation [...] G3b Moderately to s everely 30-44 G4 Sever ly decreased 15-29 G5 Kidney failure <15Repo rted eGFR is based on the CKD-EPI 2020 equation t hat does not use a race coefficientEsti mated GFR is not as accur ate as Creatinine Lay wilber in predicting glom erular filtration rate . 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 Mildconcentric LV hypertrophy. The following segment(s) appear akinetic: all apical segments. The following segment(s) appear hypokinetic: all mid-cavity segments. Basal segments are normal to hyperkinetic. Appearance is suggestive of stress-mediated (Takotsubo) cardiomyopathy, versus [...] endocardium is adequately visualized with IV ultrasound enhancingagent. The left ventricle chamber size (by vol [...] RV size and systolic function. Right Atrium No rmal right atrium. Aortic Valve Probably trileaflet aortic valve. Mild AoV cusp thickening. No evidence of aortic stenosis. Mild aortic regurgitation. Mitral Valve Mild MV leaflet thickening. Mild mitral annular calcification. No evidence of mitral stenosis. Mild mitral regurgitation. Tricuspid ValveMild tricuspid regurgitation. Estimated peak systolic PA pressure is 30-35 mmHg (normal range) . Pulmonic Valve Normal PV structure and function by limited views and Doppler. Aorta Aortic root size (SInus of Valsalva diameter) is normal . Proximal ascending aorta is normal . Pericardium No evidence of pericardial effusion. IVC/SVC/PA/PV/Pleural The estimated RA pressure by IVC dynamics 0-5mmHg .Chambers/Structures Left Atrium LA Volume: 83.79 ml [...] cm TAPSE: 1.71 cmAorta Ascending Aorta: 3.53 cmDoppler/QuantitativeMeasurements Mitral Valve MV Peak E-Wave: 1.01 m/s MV Peak A-Wave: 0.52 m/s E/A Ratio: 1.97 Peak Gradient: 4.11 mmHg Deceleration Time: 169.9 msec MV Guillermo. Peak: Tissue Doppler E' Septal Velocity: 0.05 m/s E/E': 19.25 E' Lateral Velocity: 0.05 m/s Aortic Valve Peak Velocity: 1.24 m/s Mean Velocity: 0.87 m/s Peak Gradient: 6.17 mmHg Mean Gradient: 3.48 mmHg AV Area (continuity): 2.53 cm^2 AV VTI: 26.39cm AV DVI: 0.87 LVOT Peak Velocity: 1.03 m/s Peak Gradient: 4.25 mmHg Mean Velocity: 0.71 m/s Mean Gradient: 2.38 mmHg LVOT Diameter: 1.92 cm LVOT VTI: 23.07 cm LVOT Area: 2.9 cm^2 LVOT SV:66.76 ml LVOT CO: 4.61 l/min LVOT CI: 2.83 l/min/m^2 Tricuspid Valve TR Velocity: 2.56 m/s TR Gradient: 26.13 mmHg Pulmonic Valve Peak Velocity: 0.8 m/s Peak Gradient: 2.56 [facility]CH[facility] & [id number] 13:56:19Transthoracic Echocardiography Report (TTE) Demographics Patient Name HARTLEY GLADYS Date of Study 02/06/2023 Gender Female Visit Number [id number] Race Unknown [facility] [id number] Number Date of 1955 Referring Physician Age 67 year(s) 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 Amount - 2 mlHeight: 62 inches Weight: 62.6 kg (138 lbs) BSA: 1.63 m^2 BMI: 25.24 kg/m^2HR: 69 bpm BP: 113/66 mmHg Summary 1.Technically difficult exam. LV endocardium is adequately visualized with IV ultrasound enhancing agent. 2. The left ventricle chamber size (by vol index) is normal (female - LVED vol - 29-61ml/m2). Mild concentric LV hypertrophy. The following segment(s) appear akinetic: all apical segments. The following segment(s) appear hypokinetic: all mid-cavity segments. Basal segments are normal to hyperkinetic. Appearance is suggestive of stress-mediated (Takotsubo) cardiomyopathy, versus [...] range) . Signature Findings Rhythm/BP Regular sinus rhythmduring the exam. Left Ventricle LV endocardium is adequately visualized with IV ultrasound enhancingagent. The left ventricle chamber size (by vol [...] RV size and systolic function. Right Atrium N ormal right atrium. Aortic Valve Probably trileaflet aortic valve. Mild AoV cusp thickening. No evidence of aortic stenosis. Mild aortic regurgitation. Mitral Valve Mild MV leaflet thickening. Mild mitral annular calcification. No evidence of mitral stenosis. Mild mitral regurgitation. Tricuspid Valve Mild tricuspid regurgitation. Estimated peak systolic PA pressure is 30-35 mmHg (normal range) . Pulmonic Valve Normal PV structure and function by limited views and Doppler. Aorta Aortic root size (SInus of Valsalva diameter) is normal . Proximal ascending aorta is normal . Pericardium No evidence of pericardial effusion. IVC/SVC/PA/PV/Pleural The estimated RA pressure by IVC dynamics 0-5mmHg .Jair bers/Structures Left Atrium LA Volume: 83.79 ml LA Vol. Index: 51 ml/m^2 Left Ventricle LVIDd: 4.48 cm LVEDV:108.21 ml LVIDs: 2.58 cm LV Septum Diastolic: 1.27 cm LV Septum Systolic: 1.41 cm LV Length:7.78 cm LV PW Diastolic: 1.12 cm LV FS: 42.4 % LV PW Systolic: 1.75 cm LVEDV Jeffery's:97.78 ml LVEDVI: 60 ml/m^2 LVESV Jeffery's:54.32 ml LVESVI: 33 ml/m^2 LVEF Jeffery's: 44.8 % LVOT Diameter: 1.92 cm Right Ventricle RVOT VTI: 12.92 cm TAPSE: 1.71 cmAorta Ascending Aorta: 3.53 cmDoppler/QuantitativeMeasurements Mitral Valve MV Peak E-Wave: 1.01 m/s MV Peak A-Wave: 0.52 m/s E/A Ratio: 1.97 Peak Gradient: 4.11 mmHg Deceleration Time: 169.9 msec MV Guillermo. Peak: Tissue Doppler E' Septal Velocity: 0.05 m/s E/E': 19.25 E' Lateral Velocity: 0.05 m/s Aortic Valve Peak Velocity: 1.24 m/s Mean Velocity: 0.87 m/s Peak Gradient: 6.17 mmHg Mean Gradient: 3.48 mmHg AV Area (continuity): 2.53 cm^2 AV VTI: 26.39cm AV DVI: 0.87 LVOT Peak Velocity: 1.03 m/s Peak Gradient: 4.25 mmHg Mean Velocity: 0.71 m/s Mean Gradient: 2.38 mmHg LVOT Diameter: 1.92 cm LVOT VTI: 23.07 cm LVOT Area: 2.9 cm^2 LVOT SV:66.76 ml LVOT CO: 4.61 l/min LVOT CI: 2.83 l/min/m^2 Tricuspid Valve TR Velocity: 2.56 m/s TR Gradient: 26.13 mmHg Pulmonic Valve Peak Velocity: 0.8 m/s Peak Gradient: 2.56 [facility] [id number] 12:33:12 Test Item Value Reference Range Interpretation Comments Osmolality, Ur (test code 181 See_Comment [ Automated message] = 4870-5) The system [employer] generated this result transmitted ref erence range: 50-1,200 mOsm/kg mOsm/kg . The reference range was not used to int erpret this result as normal/abnormal . Lab Interpretation (test Normal code = 50836-6) [facility], [id number] 12:33:12 Test Item Value Reference Range Interpretation Comments Osmolality, Ur (test code 181 See_Comment [ Automated message] = 7103-5) The system [employer] generated this result transmitted ref erence range: 50-1,200 mOsm/kg mOsm/kg . The reference range was not used to int erpret this result as normal/abnormal . Lab Interpretation (test Normal code = 60430-8) [facility] CenterOSMOLALITY, [id number] 12:33:12 Test Item Value Reference Range Interpretation Comments OSMOLALITY URINE 181 mOsm/kg See_Comment [Automated message] (BEAKER) (test code = The sy stem which 614) generated this result transmitted ref erence range: 50-1,200 mOsm/kg. The reference range was not used to int erpret this result as normal/abnormal . POC-Glucose [id number] 12:04:21 Test Item Value Reference Range Interpretation Comments POC-Glucose Meter (test 117 mg/dL 70-110 H : TE STED AT [facility] code = 1538) [address] [facility], [address]: Grain Commodity Manager/Techni felipe ID = [id number] for Cueto, Candice Lab Interpretation (test Abnormal code = 34959-1) [facility] CenterP[facility]ucose [id number] 12:04:21 Test Item Value Reference Range Interpretation Comments POC-Glucose Meter (test 117 mg/dL 70-110 H : TE STED AT [facility] code = 1538) [address] [facility], [address]: Grain Commodity Manager/Techni felipe ID = [id number] for Cueto, Candice Lab Interpretation (test Abnormal code = 42270-3) [facility] CenterPO[facility] [id number] 12:04:21 Test Item Value Reference Range Interpretation Comments POC-GLUCOSE METER 117 mg/dL 70-110 H : TESTED A T [facility] 6720 (BEAKER) (test code = [facility], 1538) [address]: Grain Commodity Manager/Techni felipe ID = [id number] for Cueto, Candice [id number] 10:07:28 Test Item Value Reference Range Interpretation Comments ALBUMIN (BEAKER) (test code = 1145) 3.6 g/dL 3.5-5.0 Grain Commodity Manager ID - [id number] 09:58:07 Test Item Value Reference Range Interpretation Comments MAGNESIUM (BEAKER) (test code = 2.0 mg/dL 1.6-2.6 627) Grain Commodity Manager ID - [id number] 09:58:07 Test Item Value Reference Range Interpretation Comments PHOSPHORUS (BEAKER) (test code = 3.2 mg/dL 2.3-4.7 604) Grain Commodity Manager ID - MARCOPOCT-GLUCOSE [id number] 06:42:05 Test Item Value Reference Range Interpretation Comments POC-GLUCOSE METER 109 mg/dL 70-110 : TESTED A T [facility] 6720 (BEAKER) (test code = [place], 1538) [address]: Grain Commodity Manager/Techni felipe ID = [id number] for Marlene Weinstein BASIC METABOLIC [id number] 05:39:46 Test Item Value Reference Range Interpretation [...] not appl icable for dialysis patien ts Grain Commodity Manager ID - [id number] (HEMOGRAM ONLY)2023-02-06 05:28:42 Test Item Value Reference Range Interpretation Comments WHITE BLOOD CELL COUNT 6.7 K/ L 3.5-10.5 (BEAKER) (test code = 775) RED BLOOD CELL COUNT (BEAKER) 3.76 M/ L 3.93-5.22 L (test code = 761) HEMOGLOBIN (BEAKER) (test 10.6 GM/DL 11.2-15.7 L Ba dge 247277 code = 410) HEMATOCRIT (BEAKER) (test 32.1 [...] 0-0 (BEAKER) (test code = 413) POCT-GLUCOSE [id number] 21:17:25 Test Item Value Reference Range Interpretation Comments POC-GLUCOSE METER 110 mg/dL 70-110 : TESTED A T [facility] 6720 ([facility]) (test code = [facility], 1538) [address]: Grain Commodity Manager/Techni felipe ID = [id number] for [facility] POC ACTIVATED CLOTTING [id number] 20:51:44 Test Item Value Reference Range Interpretation Comments Activated Clotting Time 266 sec : 74 -137 seconds, (test code = 3184-9) Baselin e: TESTED AT [facility] [address] [facility], [address]: Grain Commodity Manager/Techni felipe ID = [id number] for Kelsey camacho Nidia [facility] ACTIV[facility] CLOTT[facility] [id number] 20:51:44 Test Item Value Reference Range Interpretation Comments Activated Clotting Time 266 sec : 74 -137 seconds, (test code = 3184-9) Baselin e: TESTED AT [address], [address]: Grain Commodity Manager/Techni felipe ID = [id number] for Ro llin, Nidia [facility] CenterPOCT-[id number] 20:51:44 Test Item Value Reference Range Interpretation Comments ACTIVATED CLOTTING TIME 266 sec : 74 -137 seconds, (BEAKER) (test code = Baseli ne: TESTED AT 441) [address], [address]: Grain Commodity Manager/Techni feliep ID = [id number] for Ro llin, Nidia [id number] 20:51:44 Test Item Value Reference Range Interpretation Comments ACTIVATED CLOTTING TIME 325 sec : 74 -137 seconds, (BEAKER) (test code = Baseli ne: TESTED AT 441) [address], [address]: Grain Commodity Manager/Techni felipe ID = [id number] for Ro llin, Nidia [id number] 20:51:44 Test Item Value Reference Range Interpretation Comments ACTIVATED CLOTTING TIME 331 sec : 74 -137 seconds, (BEAKER) (test code = Renoi ne: TESTED AT 441) [address], [address]: Grain Commodity Manager/Techni felipe ID = [id number] for Ro llin, Nidia HIGH SENSITIVITY TROPONIN [id number] 15:04:18 Test Item Value Reference Range Interpretation Comments HIGH SENSITIVITY TROPONIN I (test 925 pg/ml <=17 HH code = 4074518) Grain Commodity Manager ID - ADMINThe HEBREW TEACHER STAT High Sensitivity Troponin-I results should be used in conjunction with other diagnostic information such as ECG, clinical observations and information, and patientsymptoms to aid in the diagnosis of SC. [id number] 13:10:33 Test Item Value Reference Range Interpretation Comments PARTIAL THROMBOPLASTIN TIME 81.9 seconds 22.5-36.0 H ([facility]) (test code = 760) POCT-GLUCOSE [id number] 12:20:29 Test Item Value Reference Range Interpretation Comments POC-GLUCOSE METER 159 mg/dL 70-110 H : TESTED A T [place] [address] ([facility]) (test code = [facility], 1538) [address]: Grain Commodity Manager/Techni felipe ID = [id number] for Annika Griffith HEMOGLOBIN [id number] 08:53:10 Test Item Value Reference Range Interpretation Comments HEMOGLOBIN A1C 5.7 % See_Comment H [Automated m essage] ELECTROPHORESIS (BEAKER) The system which (test code = 3811) generated this result transmitted ref erence range: <=5.6%. The reference range was not used to int erpret this result as normal/abnormal . "The A1c is measured using a NGSP-certified method. HbA1c value equal to or greater than 6.5% as thediagnosis cutoff for diabetes. An HbA1c value of 5.7- 6.4% indicates increased risk for diabetes (prediabetes)."Grain Commodity Manager ID - ADM [id number] 08:49:44 Test Item Value Reference Range Interpretation Comments MAGNESIUM (BEAKER) 1.9 mg/dL 1.6-2.6 Specimen slightly (test code = 627) hemolyzed Grain Commodity Manager ID - ADMINPOCT-GLUCOSE [id number] 06:52:28 Test Item Value Reference Range Interpretation Comments POC-GLUCOSE METER 143 mg/dL 70-110 H : TESTED A T [facility] 6720 (BEAKER) (test code = [place], 1538) [address]: Grain Commodity Manager/Techni felipe ID = [id number] for SHAI MERCADO BASIC METABOLIC [id number] 06:48:42 Test Item Value Reference Range Interpretation [...] not appl icable for dialysis patien ts Grain Commodity Manager ID - ADMINLIPID [id number] 06:48:42 Test Item Value Reference Range Interpretation [...] Borderline 130-159 High 160-189 Very High >=190 Grain Commodity Manager ID - [id number] 06:47:04 Test Item Value Reference Range Interpretation [...] WBC 0-0 (BEAKER) (test code = 413) [id number] 00:30:37 Test Item Value Reference Range Interpretation Comments PARTIAL THROMBOPLASTIN TIME 64.1 seconds 22.5-36.0 H (BEAKER) (test code = 760) POCT-GLUCOSE [id number] 22:02:30 Test Item Value Reference Range Interpretation Comments POC-GLUCOSE METER 216 mg/dL 70-110 H : TESTED A T [facility] 6720 (BEAKER) (test code = [facility], 153) [address]: Grain Commodity Manager/Techni felipe ID = [id number] for SHAI MERCADO POCT-GLUCOSE [id number] 18:39:14 Test Item Value Reference Range Interpretation Comments POC-GLUCOSE METER 179 mg/dL 70-110 H : TESTED A T [facility] 6720 (BEAKER) (test code = [facility], 153) [address]: Grain Commodity Manager/Techni felipe ID = [id number] for Annika Griffith BASIC METABOLIC [id number] 17:50:26 Test Item Value Reference Range Interpretation [...] not appl icable for dialysis patien ts Grain Commodity Manager ID - [id number] 17:43:04 Test Item Value Reference Range Interpretation [...] WBC 0-0 (BEAKER) (test code = 413) [id number] 13:19:18 Test Item Value Reference Range Interpretation Comments ACTIVATED CLOTTING TIME 480 sec : 74 -137 seconds, (BEAKER) (test code = Baseli ne: TESTED AT 441) [facility] [address], [address]: Grain Commodity Manager/Techni felipe ID = [id number] for MICHAEL HILL [id number] 00:00:00Ordered by an unspecified provider.[facility] CenterEKG-[id number] 00:00:00Ordered by an unspecified provider. [facility] [id number] 16:44:20 Test Item Value Reference Range Interpretation Comments Case number (test code = [id number]) Surgical pathology See link below for report (test code = PDF Lab Report 2255) Result status (test code This is Final Report = [id number]) for [id number] [place], [place] [address]urgical pathology [id number] 16:44:20 Test Item Value Reference Range Interpretation Comments Case number (test code = [id number]) Surgical pathology See link below for report (test code = PDF Lab Report 2255) Result status (test code This is Final Report = 1066079) for [id number] [place], [place] [address]urgical pathology [id number] 16:44:20 Test Item Value Reference Range Interpretation Comments Case number (test code = [id number]) Surgical pathology See link below for report (test code = PDF Lab Report 2255) Result status (test code This is Final Report = 9440263) for [id number] [id number] 16:44:20 Test Item Value Reference Range Interpretation Comments Case number (test code = [id number]) Surgical pathology See link below for report (test code = PDF Lab Report 2255) Result status (test code This is Final Report = 8019235) for [id number] [facility] pathology [id number] 16:44:20 Test Item Value Reference Range Interpretation Comments Case number (test code = [id number]) Surgical pathology See link below for report (test code = PDF Lab Report 2255) Result status (test code This is Final Report = 0376943) for [id number] [facility] pathology [id number] 16:44:20 Test Item Value Reference Range Interpretation Comments Case number (test code = [id number]) Surgical pathology See link below for report (test code = PDF Lab Report 2255) Result status (test code This is Final Report = 0107957) for [id number] [facility] pathology [id number] 16:44:20 Test Item Value Reference Range Interpretation Comments Case number (test code = [id number]) Surgical pathology See link below for report (test code = PDF Lab Report 2255) Result status (test code This is Final Report = 0590093) for [id number] [facility] [id number] 13:34:00 Test Item Value Reference Range Interpretation Comments POC glucose (test code 192 mg/dL 65-99 H Opera tor Name: = 22249-5) Michelle Abdi Device ID: [id number] Lab Interpretation Abnormal (test code = 29362-7) [facility]2023-03-13 13:34:00 Test Item Value Reference Range Interpretation Comments POC glucose (test code 192 mg/dL 65-99 H Opera tor Name: = 55627-3) Michelle Abdi Device ID: [id number] Lab Interpretation Abnormal (test code = 32430-7) [facility]2023-03-13 13:34:00 Test Item Value Reference Range Interpretation Comments POC glucose (test code 192 mg/dL 65-99 H Opera tor Name: = 48223-8) Michelle Abdi Device ID: [id number] Lab Interpretation Abnormal (test code = 72215-0) [facility]2023-03-13 13:34:00 Test Item Value Reference Range Interpretation Comments POC glucose (test code 192 mg/dL 65-99 H Opera tor Name: = 79053-0) Michelle Patton Device ID: [id number] Lab Interpretation Abnormal (test code = 22668-4) [facility]2023-03-13 13:34:00 Test Item Value Reference Range Interpretation Comments POC glucose (test code 192 mg/dL 65-99 H Opera tor Name: = 18256-8) Michelle Patton Device ID: [id number] Lab Interpretation Abnormal (test code = 73475-6) [facility]2023-03-13 13:34:00 Test Item Value Reference Range Interpretation Comments POC glucose (test code 192 mg/dL 65-99 H Opera tor Name: = 14501-4) Michelle Patton Device ID: [id number] Lab Interpretation Abnormal (test code = 00525-0) [facility]2023-03-13 13:34:00 Test Item Value Reference Range Interpretation Comments POC glucose (test code 192 mg/dL 65-99 H Opera tor Name: = 40454-4) Michelle Patton Device ID: [id number] Lab Interpretation Abnormal (test code = 09763-5) [facility] [place] [place]2023-03-11 05:41:52EXAMINATION: US HEPATIC CLINICAL HISTORY: eval for [...] is 12 mm. 4.No perihepatic ascites. [id number]2023-03-11 05:41:52 EXAMINATION: US HEPATIC CLINICAL HISTORY: eval [...] diameter is 12 mm. 4.No perihepatic ascites. [id number]leTransthoracic Echocardiogram Complete, (w Contrast, Strain and 3D if needed)2022-05-21 18:57:50 Test Item Value Reference Range Interpretation Comments Ao Root Diameter 2.47 cm (test code = 4056476014) AoV Area, Vmax 2.17 cm2 >=1.5 [Automated (test code = message] The 0777408976) system which generated this result transmitted reference range : >=1.5. The reference range was not used to interpret this result as normal/abnormal . AoV Area, VTI 2.37 cm2 (test code = 0005910570) AoV Mean PG (test 3.69 mmHg code = 8030494916) AoV Peak PG (test 7.79 mmHg code = 1247238359) AoV Vmax (test 1.40 m/s code = 6105357356) AoV VTI (test code 0.31 m = 6477722147) BSA Cox (test 1.68 m2 code = 5835867676) BSA (test code = 1.64 m2 9322847515) IVS,d (test code = 0.90 cm 0.6-0.9 0416811994) IVS/LVPW,2D (test 1.05 code = 0575610230) Left Atrium 5.09 cm Dimension Anterior (test code = 0124897444) LV,d (test code = 4.93 cm 4528693339) LV EF,2D (test 68.15 % code = 4820923464) LV EF,A2C (test 64.40 % code = 1975961993) LV EF,A4C (test 67.19 % code = 4126692629) LV EF,BP (test 66.16 % code = 1829991141) Rakesh Ponsford,d A2C 7.43 cm (test code = 8646513600) Rakesh Ponsford,d A4C 7.77 cm (test code = 0673063562) Rakesh Ponsford,s A2C 6.18 cm (test code = 3009204825) Rakesh Ponsford,s A4C 6.37 cm (test code = 6574429526) LV,s (test code = 3.37 cm 4780217623) LV SV,A2C (test 47.58 % code = 0883051617) LV SV,A4C (test 61.18 % code = 0017763513) LV SV,BP (test 55.46 % code = 4410797074) LV Vol,d A2C (test 73.88 mL code = 1953659074) LV Vol,d A4C (test 91.06 ml code = 2438003539) LV Vol,d BP (test 83.82 ml code = 3106092876) LV Vol,s A2C (test 26.30 mL code = 0375366133) LV Vol,s A4C (test 29.88 ml code = 1534671971) LV Vol,s BP (test 28.36 nl code = 9489975133) LVOT area (test 2.98 cm2 code = 4441531233) LVOT Diam,S (test 1.95 cm code = 4376355528) LVOT Vmax (test 1.02 m/s code = 1568131301) LVOT VTI (test 0.25 m code = 3363271967) LVPWD,d (test code 0.85 cm 0.60-1.19 = 7683782300) TR Vpeak (test 2.87 m/s code = 4934718136) MV E A ratio (test 2.90 code = 5831713464) TR pk grad (test 33.4 mmHg code = 7024917964) AoV area i VTI BSA 1.45 cm2/m2 >=0.85 [Automat ed Radha (test code message] T he = 7993769106) system which generated this result transmitted reference range : >=0.85. The reference range was not used to interpret this result as normal/abnormal . LV SI MOD BP BSA 33.79 ml/m2 [place] (test code = 6801170976) LV Vol Index s 51.07 ml/m2 bpmod BSA Radha (test code = 0310419790) PV Vmn (test code 17.28 m/s = 3674389983) BMI (test code = 24.09 kg/m2 4440973354) E wave decelartion 245.16 See_Comment [Automat ed time (test code = message] T he 8071375271) system which generated this result transmitted reference range : 200 msec. The reference range was not used to interpret this result as normal/abnormal . MV Peak A Guillermo 0.45 m/s (test code = 2163822487) MV valve area p 3.09 cm2 1/2 method (test code = 7028529456) MV Peak E Guillermo 1.29 m/s (test code = 7174586144) MV stenosis 71.10 ms pressure 1/2 time (test code = 8187780508) LVOT stroke volume 0.75 cm3 (test code = 0751286369) AV LVOT peak 4.17 mmHg gradient (test code = 4531125576) Ao Root Diameter 2.47 cm (test code = 8012138270) MV mean gradient 2.73 mmHg (test code = 8061230162) LV SYS VOL (test 46.28 ml 14-42 code = 7452100578) LV GRESHAM VOL (test 114.31 ml 46-106 code = 5527393332) LA area s A4C 29.13 cm2 (test code = 1202183377) LV SI Teich 2D 41.45 ml/m2 (test code = 1671652247) LV SV Teich 2D 68.03 ml (test code = 9526244943) LV Vol s Teich 46.28 ml PSAX (test code = 9048428743) LVOT SI (test code 45.10 ml/m2 = 6222214759) MR peak grad (test 8.42 mmHg code = 2859678843) MV Vmax (test code 1.45 m = 8397110996) MV VTI Tips (test 0.38 m code = 9574716618) BSA Haycock (test 1.67 m2 code = 1826079320) AoV Vmn (test code 0.88 m/s = 8362852307) IVS s 2D (test 1.44 cm code = 9953105299) LV FS Teich 2D 31.71 (test code = 1655146200) MV AE ratio (test 0.35 code = 7089678269) LV FS Cube 2D 31.71 (test code = 8965348761) LVOT Vmn (test 0.76 code = 0363078630) Pt Size (test code 160.02 = 5015716925) Pt Wt (test code = 61.69 6632878784) Aov area Vmn (test 2.56 cm2 code = 1060356462) LA A_P score P 4.87 (test code = 2404226939) LVOT mean grad 2.52 mmHg (test code = 2867850996) 85 of MPHR (test 129.33 code = 8033376137) AoV area I VMN bsa 1.56 cm2/m2 (test code = 5369459530) Calc MPHR (test 152.15 bpm code = 8641225220) IVS pct thck PLAX 60.66 % (test code = 7677319488) LV SI Cube 2D 49.68 ml/m2 (test code = 1114883497) LV SV Cube 2D 81.55 ml (test code = 1939544790) LV vol d cube 2D 119.66 ml (test code = 6327802296) LV vol s cube 2D 38.11 ml (test code = 0574503092) LVPW pct thck PLAX 60.93 % (test code = 0102844726) LVPW s PLAX (test 1.37 cm code = 3821337211) MV Decel slope 5.27 m/s2 (test code = 2338765590) Pred Exer Dur R1 7.06 (test code = 2646357298) Pred METS R1 (test 5.88 code = 8316049118) LA Vol MOD A4C 106.72 ml (test code = 6536746838) Velocity Ratio 0.73 m/s (V1/V2) (test code = 4689) EF (test code = 60 % 4616624759) E/A ratio (test 2.87 code = 9309446224) LV Systolic Volume 16.04 mL/m2 Index (test code = 0064315223) LV Diastolic 45.05 mL/m2 Volume Index (test code = 2942494307) LVOT VTI (CM) 25.00 cm (test code = 9245988475) RVSP (test code = 38.40 See_Comment [Automate d 5535931560) message] The system which generated this result transmitted reference range : 40.00 mmHg. The reference range was not used to interpret this result as normal/abnormal . RA pressure (test 5.0 mmHg code = 6050147505) BINDU (test code = BINDU) Left Ventricle: [...] Root Diameter 2.47 cm (test code = 3876914772) AoV Area, Vmax 2.17 cm2 >=1.5 (test code = 9828982584) AoV Area, VTI 2.37 cm2 (test code = 1347296890) AoV Mean PG (test 3.69 mmHg code = 6101176036) AoV Peak PG (test 7.79 mmHg code = 2447416494) AoV Vmax (test 1.40 m/s code = 0627783334) AoV VTI (test code 0.31 m = 7425028990) BSA Cox (test 1.68 m2 code = 1166135510) BSA (test code = 1.64 m2 8466975758) IVS,d (test code = 0.90 cm 0.6-0.9 7267556507) IVS/LVPW,2D (test 1.05 code = 5005090261) Left Atrium 5.09 cm Dimension Anterior (test code = 2951381282) LV,d (test code = 4.93 cm 3116774397) LV EF,2D (test 68.15 % code = 4638303113) LV EF,A2C (test 64.40 % code = 1726210674) LV EF,A4C (test 67.19 % code = 6564015615) LV EF,BP (test 66.16 % code = 8872374545) Rakesh Ponsford,d A2C 7.43 cm (test code = 2956325003) Rakesh Ponsford,d A4C 7.77 cm (test code = 5693444151) Rakesh Ponsford,s A2C 6.18 cm (test code = 6555649891) Rakesh Ponsford,s A4C 6.37 cm (test code = 4032416237) LV,s (test code = 3.37 cm 7014915863) LV SV,A2C (test 47.58 % code = 3136164928) LV SV,A4C (test 61.18 % code = 3420623180) LV SV,BP (test 55.46 % code = 6330573178) LV Vol,d A2C (test 73.88 mL code = 4741430773) LV Vol,d A4C (test 91.06 ml code = 4802311594) LV Vol,d BP (test 83.82 ml code = 6061324369) LV Vol,s A2C (test 26.30 mL code = 1614451725) LV Vol,s A4C (test 29.88 ml code = 6407893725) LV Vol,s BP (test 28.36 nl code = 5197848942) LVOT area (test 2.98 cm2 code = 9119337818) LVOT Diam,S (test 1.95 cm code = 7546743896) LVOT Vmax (test 1.02 m/s code = 7614796676) LVOT VTI (test 0.25 m code = 6404712369) LVPWD,d (test code 0.85 cm 0.60-1.19 = 7887135197) TR Vpeak (test 2.87 m/s code = 5018722894) MV E A ratio (test 2.90 code = 1345757067) TR pk grad (test 33.4 mmHg code = 6205219865) AoV area i VTI BSA 1.45 cm2/m2 >=0.85 [place] (test code = 9180648961) LV SI MOD BP BSA 33.79 ml/m2 [place] (test code = 9654134263) LV Vol Index s 51.07 ml/m2 bpmod BSA [place] (test code = 4095902474) PV Vmn (test code 17.28 m/s = 0792369710) BMI (test code = 24.09 kg/m2 2093082956) E wave decelartion 245.16 See_Comment [Automat ed time (test code = message] T he 0733175472) system which generated this result transmitted reference range : 200 msec. The reference range was not used to interpret this result as normal/abnormal . MV Peak A Guillermo 0.45 m/s (test code = 6114879761) MV valve area p 3.09 cm2 1/2 method (test code = 8288813034) MV Peak E Guillermo 1.29 m/s (test code = 8757299384) MV stenosis 71.10 ms pressure 1/2 time (test code = 7246219817) LVOT stroke volume 0.75 cm3 (test code = 0471063925) AV LVOT peak 4.17 mmHg gradient (test code = 4250484210) Ao Root Diameter 2.47 cm (test code = 6290069087) MV mean gradient 2.73 mmHg (test code = 7741533420) LV SYS VOL (test 46.28 ml 14-42 code = 6531343273) LV GRESHAM VOL (test 114.31 ml 46-106 code = 9849969686) LA area s A4C 29.13 cm2 (test code = 5505797238) LV SI Teich 2D 41.45 ml/m2 (test code = 0963867152) LV SV Teich 2D 68.03 ml (test code = 6578041990) LV Vol s Teich 46.28 ml PSAX (test code = 1615542099) LVOT SI (test code 45.10 ml/m2 = 4017830512) MR peak grad (test 8.42 mmHg code = 7508357682) MV Vmax (test code 1.45 m = 8806602447) MV VTI Tips (test 0.38 m code = 4313333286) BSA Haycock (test 1.67 m2 code = 4617110452) AoV Vmn (test code 0.88 m/s = 1200362594) IVS s 2D (test 1.44 cm code = 8708161743) LV FS Teich 2D 31.71 (test code = 6181049150) MV AE ratio (test 0.35 code = 1534733123) LV FS Cube 2D 31.71 (test code = 6197310574) LVOT Vmn (test 0.76 code = 7491865392) Pt Size (test code 160.02 = 9650556050) Pt Wt (test code = 61.69 4840714632) Aov area Vmn (test 2.56 cm2 code = 7501221048) LA A_P score P 4.87 (test code = 0918919562) LVOT mean grad 2.52 mmHg (test code = 5117146486) 85 of MPHR (test 129.33 code = 0306260300) AoV area I VMN bsa 1.56 cm2/m2 (test code = 0601152581) Calc MPHR (test 152.15 bpm code = 5240568929) IVS pct thck PLAX 60.66 % (test code = 5137737671) LV SI Cube 2D 49.68 ml/m2 (test code = 7954030347) LV SV Cube 2D 81.55 ml (test code = 2340940524) LV vol d cube 2D 119.66 ml (test code = 4305264082) LV vol s cube 2D 38.11 ml (test code = 4360131337) LVPW pct thck PLAX 60.93 % (test code = 0333839535) LVPW s PLAX (test 1.37 cm code = 3500200635) MV Decel slope 5.27 m/s2 (test code = 7860045551) Pred Exer Dur R1 7.06 (test code = 8839916101) Pred METS R1 (test 5.88 code = 3897392329) LA Vol MOD A4C 106.72 ml (test code = 6228679644) Velocity Ratio 0.73 m/s (V1/V2) (test code = 4689) EF (test code = 60 % 2830503043) E/A ratio (test 2.87 code = 8063299120) LV Systolic Volume 16.04 mL/m2 Index (test code = 6066648163) LV Diastolic 45.05 mL/m2 Volume Index (test code = 3524038514) LVOT VTI (CM) 25.00 cm (test code = 0933767141) RVSP (test code = 38.40 See_Comment [Automate d 2466504957) message] The system which generated this result transmitted reference range : 40.00 mmHg. The reference range was not used to interpret this result as normal/abnormal . RA pressure (test 5.0 mmHg code = 1349445029) BINDU (test code = BINDU) Left Ventricle: [...] difficulties due to patient's body habitus. [facility], (w Contrast, Strain and 3D if needed)2022-05-21 18:57:50 Test Item Value Reference Range Interpretation Comments Ao Root Diameter 2.47 cm (test code = 0702032370) AoV Area, Vmax 2.17 cm2 >=1.5 (test code = 8281096591) AoV Area, VTI 2.37 cm2 (test code = 7140163463) AoV Mean PG (test 3.69 mmHg code = 0857556577) AoV Peak PG (test 7.79 mmHg code = 7587612207) AoV Vmax (test 1.40 m/s code = 2100807706) AoV VTI (test code 0.31 m = 9466534939) BSA Cxo (test 1.68 m2 code = 8570302509) BSA (test code = 1.64 m2 4563376220) IVS,d (test code = 0.90 cm 0.6-0.9 7676631994) IVS/LVPW,2D (test 1.05 code = 9200139754) Left Atrium 5.09 cm Dimension Anterior (test code = 8772661657) LV,d (test code = 4.93 cm 1308883092) LV EF,2D (test 68.15 % code = 4697236769) LV EF,A2C (test 64.40 % code = 1111209081) LV EF,A4C (test 67.19 % code = 8001304073) LV EF,BP (test 66.16 % code = 9322388779) Rakesh Ponsford,d A2C 7.43 cm (test code = 3904401547) Rakesh Ponsford,d A4C 7.77 cm (test code = 6078788341) Rakesh Ponsford,s A2C 6.18 cm (test code = 1497226300) Rakesh Ponsford,s A4C 6.37 cm (test code = 1116601152) LV,s (test code = 3.37 cm 7893256634) LV SV,A2C (test 47.58 % code = 2853404504) LV SV,A4C (test 61.18 % code = 9527323853) LV SV,BP (test 55.46 % code = 9529511420) LV Vol,d A2C (test 73.88 mL code = 5617896681) LV Vol,d A4C (test 91.06 ml code = 0231528308) LV Vol,d BP (test 83.82 ml code = 8377510552) LV Vol,s A2C (test 26.30 mL code = 6075350398) LV Vol,s A4C (test 29.88 ml code = 2312499343) LV Vol,s BP (test 28.36 nl code = 4464634109) LVOT area (test 2.98 cm2 code = 6971534705) LVOT Diam,S (test 1.95 cm code = 5365271841) LVOT Vmax (test 1.02 m/s code = 3942849031) LVOT VTI (test 0.25 m code = 2066964278) LVPWD,d (test code 0.85 cm 0.60-1.19 = 2114839611) TR Vpeak (test 2.87 m/s code = 1248355584) MV E A ratio (test 2.90 code = 6298720692) TR pk grad (test 33.4 mmHg code = 3731849007) AoV area i VTI BSA 1.45 cm2/m2 >=0.85 [place] (test code = 1495032495) LV SI MOD BP BSA 33.79 ml/m2 [place] (test code = 9238478294) LV Vol Index s 51.07 ml/m2 bpmod BSA [place] (test code = 2162072739) PV Vmn (test code 17.28 m/s = 5461864486) BMI (test code = 24.09 kg/m2 1607120825) E wave decelartion 245.16 See_Comment [Automat ed time (test code = message] T he 1028344613) system which generated this result transmitted reference range : 200 msec. The reference range was not used to interpret this result as normal/abnormal . MV Peak A Guillermo 0.45 m/s (test code = 0498963979) MV valve area p 3.09 cm2 1/2 method (test code = 7421137620) MV Peak E Guillermo 1.29 m/s (test code = 8709131752) MV stenosis 71.10 ms pressure 1/2 time (test code = 7567519378) LVOT stroke volume 0.75 cm3 (test code = 4825652477) AV LVOT peak 4.17 mmHg gradient (test code = 0592343322) Ao Root Diameter 2.47 cm (test code = 8663497687) MV mean gradient 2.73 mmHg (test code = 7056728792) LV SYS VOL (test 46.28 ml 14-42 code = 1534316080) LV GRESHAM VOL (test 114.31 ml 46-106 code = 9708329928) LA area s A4C 29.13 cm2 (test code = 5016713920) LV SI Teich 2D 41.45 ml/m2 (test code = 9929886858) LV SV Teich 2D 68.03 ml (test code = 4517090794) LV Vol s Teich 46.28 ml PSAX (test code = 2890566105) LVOT SI (test code 45.10 ml/m2 = 6772188217) MR peak grad (test 8.42 mmHg code = 3098755266) MV Vmax (test code 1.45 m = 4448115982) MV VTI Tips (test 0.38 m code = 4729324065) BSA [place] (test 1.67 m2 code = 4652505085) AoV Vmn (test code 0.88 m/s = 0926734180) IVS s 2D (test 1.44 cm code = 4599259922) LV FS Teich 2D 31.71 (test code = 9308193762) MV AE ratio (test 0.35 code = 8681986767) LV FS Cube 2D 31.71 (test code = 6460550756) LVOT Vmn (test 0.76 code = 0209633481) Pt Size (test code 160.02 = 8980224606) Pt Wt (test code = 61.69 5676394498) Aov area Vmn (test 2.56 cm2 code = 6481797522) LA A_P score P 4.87 (test code = 0569778031) LVOT mean grad 2.52 mmHg (test code = 4905382415) 85 of MPHR (test 129.33 code = 5846533936) AoV area I VMN bsa 1.56 cm2/m2 (test code = 1032210111) Calc MPHR (test 152.15 bpm code = 1096498689) IVS pct thck PLAX 60.66 % (test code = 2989937265) LV SI Cube 2D 49.68 ml/m2 (test code = 5486018246) LV SV Cube 2D 81.55 ml (test code = 2239829829) LV vol d cube 2D 119.66 ml (test code = 3045903474) LV vol s cube 2D 38.11 ml (test code = 2218833246) LVPW pct thck PLAX 60.93 % (test code = 4446065157) LVPW s PLAX (test 1.37 cm code = 3241725682) MV Decel slope 5.27 m/s2 (test code = 9975168357) Pred Exer Dur R1 7.06 (test code = 4064793132) Pred METS R1 (test 5.88 code = 3032182048) LA Vol MOD A4C 106.72 ml (test code = 2152452402) Velocity Ratio 0.73 m/s (V1/V2) (test code = 4689) EF (test code = 60 % 3354257834) E/A ratio (test 2.87 code = 7028168464) LV Systolic Volume 16.04 mL/m2 Index (test code = 2161968274) LV Diastolic 45.05 mL/m2 Volume Index (test code = 3929227984) LVOT VTI (CM) 25.00 cm (test code = 2165003584) RVSP (test code = 38.40 See_Comment [Automate d 3678715699) message] The system which generated this result transmitted reference range : 40.00 mmHg. The reference range was not used to interpret this result as normal/abnormal . RA pressure (test 5.0 mmHg code = 4430500648) BINDU (test code = BINDU) Left Ventricle: [...] Technical difficulties due to patient's body habitus. [place] [address] [id number] 04:29:44 Test Item Value Reference Range Interpretation Comments Ventricular rate (test 56 code = 253) Atrial rate (test code 56 = 255) LA interval (test code 120 = 266) QRSD [...] of 08-JUL-2020 11:10,-No significant change was found- [facility] 12 [id number] 04:29:44 Test Item Value Reference Range Interpretation Comments Ventricular rate (test 56 code = 253) Atrial rate (test code 56 = 255) LA interval (test code 120 = 266) QRSD [...] of 08-JUL-2020 11:10,-No significant change was found- [address]2023-03-10 04:29:44 Test Item Value Reference Range Interpretation Comments Ventricular rate (test 56 code = 253) Atrial rate (test code 56 = 255) LA interval (test code 120 = 266) QRSD [...] of 08-JUL-2020 11:10,-No significant change was found- [address]2023-03-10 04:29:44 Test Item Value Reference Range Interpretation Comments Ventricular rate (test 56 code = 253) Atrial rate (test code 56 = 255) LA interval (test code 120 = 266) QRSD [...] of 08-JUL-2020 11:10,-No significant change was found- [address]2023-03-10 04:29:44 Test Item Value Reference Range Interpretation Comments Ventricular rate (test 56 code = 253) Atrial rate (test code 56 = 255) LA interval (test code 120 = 266) QRSD [...] of 08-JUL-2020 11:10,-No significant change was found- [address]2023-03-10 04:29:44 Test Item Value Reference Range Interpretation Comments Ventricular rate (test 56 code = 253) Atrial rate (test code 56 = 255) LA interval (test code 120 = 266) QRSD [...] of 08-JUL-2020 11:10,-No significant change was found- [address]2023-03-10 04:29:44 Test Item Value Reference Range Interpretation Comments Ventricular rate (test 56 code = 253) Atrial rate (test code 56 = 255) LA interval (test code 120 = 266) QRSD [...] 08-JUL-2020 11:10,-No significant change was found- [facility] [id number] 21:17:00 Test Item Value Reference Range Interpretation Comments Product name (test code Red Cells AS1 Leukored = 25) Irrad Unit number (test code [id number] = [id number]) Product code (test code F8372M59 = 3092) Dispense status (test Transfused code = 24) Blood expiration date (test code = 302) Blood type code (test 5100 code = 308) Blood type (test code = O POSITIVE 1314) Compatibility (test Compatible code = 6400) BINDU (test code = BINDU) LAB: +PATIENT ID VERIFIED. [facility] 2 [id number] 21:17:00 Test Item Value Reference Range Interpretation Comments Product name (test code Red Cells AS1 Leukored = 25) Irrad Unit number (test code [id number] = 5032966) Product code (test code L7452J31 = 3092) Dispense status (test Transfused code = 24) Blood expiration date (test code = 302) Blood type code (test 5100 code = 308) Blood type (test code = O POSITIVE 1314) Compatibility (test Compatible code = 6400) BINDU (test code = BINDU) LAB: +PAT[facility] ID VERIFIED. [facility] 2 [id number] 21:17:00 Test Item Value Reference Range Interpretation Comments Product name (test code Red Cells AS1 Leukored = 25) Irrad Unit number (test code [id number] = 9197932) Product code (test code C0817Z40 = 3092) Dispense status (test Transfused code = 24) Blood expiration date (test code = 302) Blood type code (test 5100 code = 308) Blood type (test code = O POSITIVE 1314) Compatibility (test Compatible code = 6400) BINDU (test code = BINDU) LAB: +PAT[facility] ID VERIFIED. [facility] 2 [id number] 21:17:00 Test Item Value Reference Range Interpretation Comments Product name (test code Red Cells AS1 Leukored = 25) Irrad Unit number (test code [id number] = 3751192) Product code (test code K3812P05 = 3092) Dispense status (test Transfused code = 24) Blood expiration date (test code = 302) Blood type code (test 5100 code = 308) Blood type (test code = O POSITIVE 1314) Compatibility (test Compatible code = 6400) BINDU (test code = BINDU) LAB: +PAT[facility] ID VERIFIED. [facility] 2 [id number] 21:17:00 Test Item Value Reference Range Interpretation Comments Product name (test code Red Cells AS1 Leukored = 25) Irrad Unit number (test code [id number] = 3262835) Product code (test code I3697P03 = 3092) Dispense status (test Transfused code = 24) Blood expiration date (test code = 302) Blood type code (test 5100 code = 308) Blood type (test code = O POSITIVE 1314) Compatibility (test Compatible code = 6400) BINDU (test code = BINDU) LAB: +PATIENT ID VERIFIED. [facility], 2 [id number] 21:17:00 Test Item Value Reference Range Interpretation Comments Product name (test code Red Cells AS1 Leukored = 25) Irrad Unit number (test code [id number] = 1119031) Product code (test code V7984S64 = 3092) Dispense status (test Transfused code = 24) Blood expiration date (test code = 302) Blood type code (test 5100 code = 308) Blood type (test code = O POSITIVE 1314) Compatibility (test Compatible code = 6400) BINDU (test code = BINDU) LAB: +PATIENT ID VERIFIED. [facility], 2 [id number] 21:17:00 Test Item Value Reference Range Interpretation Comments Product name (test code Red Cells AS1 Leukored = 25) Irrad Unit number (test code [id number] = 0383867) Product code (test code U0414C02 = 3092) Dispense status (test Transfused code = 24) Blood expiration date (test code = 302) Blood type code (test 5100 code = 308) Blood type (test code = O POSITIVE 1314) Compatibility (test Compatible code = 6400) BINDU (test code = BINDU) LAB: +PATIENT ID VERIFIED. [facility] [id number] 19:59:35EXAM: CT ABDOMEN PELVIS W CONTRAST INDICATION: Abdominal pain acute nonlocalized COMPARISON: None. TECHNIQUE: After administration of iodinated contrast intravenously, axial CT images of the abdomen and pelvis were obtained. Coronal and sagittal reformations were obtained. Iterative reconstruction and/or automated exposure control techniques were employed to reduce radiation dose. FINDINGS:Cat Tender:Surgical material left upper quadrant.Mild left convex curvature [...] and pseudoarticulation posterior spinous processes, compatible with Granite's disease. Mild arthrosis bilateral sacroiliac joints. Chondrocalcinosis [...] 9, T11-L1, and right greater trochanter. [id number] [facility] Abdomen Pelvis W [id number] 19:59:35EXAM: CT ABDOMEN PELVIS W CONTRAST INDICATION: Abdominal pain acute nonlocalized COMPARISON: None. TECHNIQUE: After administration of iodinated contrast intravenously, axial CT images of the abdomen and pelvis were obtained. Coronal and sagittal reformations were obtained. Iterative reconstruction and/or automated exposure control techniques were employed to reduce radiation dose. FINDINGS:Cat Tender:Surgical material left upper quadrant.Mild left convex curvature [...] and pseudoarticulation posterior spinous processes, compatible with Granite's disease. Mild arthrosis bilateral sacroiliac joints. Chondrocalcinosis [...] 9, T11-L1, and right greater trochanter. [id number] [facility] duplex venous lower [id number] 18:54:53 EXAMINATION: US DUPLEX VENOUS LOWER EXTREMITY [...] lower extremity named vessels as described above. [id number] lower [id number] 18:54:53EXAMINATION: US DUPLEX VENOUS LOWER EXTREMITY BILATERAL [...] lower extremity named vessels as described above. [id number] Preliminary Interpretation - Not an Order 2022-05-20 17:10:18 Test Item Value Reference Range Interpretation Comments BINDU (test code = BINDU) Soledad Arnold MD 05/21/2022 2:47 [facility] Preliminary Interpretation - Not an OrderPerformed by: Soledad Arnold MDAuthorized by: Soledad Arnold MD ECG reviewed by ED Physician in the absence of a metalizing machine operator: yes Previous ECG: Previous ECG: UnavailableInterpretat ion: Interpretation: abnormal Rate: ECG rate: 56 ECG rate assessment: bradycardic Rhythm: Rhythm: sinus bradycardia Ectopy: Ectopy: none QRS: QRS axis: NormalConduction: Conduction: normal ST segments: ST segments: NormalT waves: T waves: normal Lab Interpretation Abnormal (test code = 12751-5) [facility] ED Preliminary Interpretation - Not an [id number] 17:10:18 Test Item Value Reference Range Interpretation Comments BINDU (test code = BINDU) Soledad Arnold MD 05/21/2022 2:47 [facility] Preliminary Interpretation - Not an OrderPerformed by: Soledad Arnold MDAuthorized by: Soledad Arnold MD ECG reviewed by ED Physician in the absence of a metalizing machine operator: yes Previous ECG: Previous ECG: UnavailableInterpretat ion: Interpretation: abnormal Rate: ECG rate: 56 ECG rate assessment: bradycardic Rhythm: Rhythm: sinus bradycardia Ectopy: Ectopy: none QRS: QRS axis: NormalConduction: Conduction: normal ST segments: ST segments: NormalT waves: T waves: normal Lab Interpretation Abnormal (test code = 02699-3) [facility] ED Preliminary Interpretation - Not an [id number] 17:10:18 Test Item Value Reference Range Interpretation Comments BINDU (test code = BINDU) Soledad Arnold MD 05/21/2022 2:47 [facility] Preliminary Interpretation - Not an OrderPerformed by: Soledad Arnold MDAuthorized by: Soledad Arnold MD ECG reviewed by ED Physician in the absence of a metalizing machine operator: yes Previous ECG: Previous ECG: UnavailableInterpretat ion: Interpretation: abnormal Rate: ECG rate: 56 ECG rate assessment: bradycardic Rhythm: Rhythm: sinus bradycardia Ectopy: Ectopy: none QRS: QRS axis: NormalConduction: Conduction: normal ST segments: ST segments: NormalT waves: T waves: normal Lab Interpretation Abnormal (test code = 57761-2) [facility] ED Preliminary Interpretation - Not an [id number] 17:10:18 Test Item Value Reference Range Interpretation Comments BINDU (test code = BINDU) Soledad Arnold MD 05/21/2022 2:47 [facility] Preliminary Interpretation - Not an OrderPerformed by: Soledad Arnold MDAuthorized by: Soledad Arnold MD ECG reviewed by ED Physician in the absence of a metalizing machine operator: yes Previous ECG: Previous ECG: UnavailableInterpretat ion: Interpretation: abnormal Rate: ECG rate: 56 ECG rate assessment: bradycardic Rhythm: Rhythm: sinus bradycardia Ectopy: Ectopy: none QRS: QRS axis: NormalConduction: Conduction: normal ST segments: ST segments: NormalT waves: T waves: normal Lab Interpretation Abnormal (test code = 15920-5) [facility] ED Preliminary Interpretation - Not an [id number] 17:10:18 Test Item Value Reference Range Interpretation Comments BINDU (test code = BINDU) Soledad Arnold MD 05/21/2022 2:47 [facility] Preliminary Interpretation - Not an OrderPerformed by: Soledad Arnold MDAuthorized by: Soledad Arnold MD ECG reviewed by ED Physician in the absence of a metalizing machine operator: yes Previous ECG: Previous ECG: UnavailableInterpretat ion: Interpretation: abnormal Rate: ECG rate: 56 ECG rate assessment: bradycardic Rhythm: Rhythm: sinus bradycardia Ectopy: Ectopy: none QRS: QRS axis: NormalConduction: Conduction: normal ST segments: ST segments: NormalT waves: T waves: normal Lab Interpretation Abnormal (test code = 15204-7) [facility] ED Preliminary Interpretation - Not an [id number] 17:10:18 Test Item Value Reference Range Interpretation Comments BINDU (test code = BINDU) Soledad Arnold MD 05/21/2022 2:47 [facility] Preliminary Interpretation - Not an OrderPerformed by: Soledad Arnold MDAuthorized by: Soledad Arnold MD ECG reviewed by ED Physician in the absence of a metalizing machine operator: yes Previous ECG: Previous ECG: UnavailableInterpretat ion: Interpretation: abnormal Rate: ECG rate: 56 ECG rate assessment: bradycardic Rhythm: Rhythm: sinus bradycardia Ectopy: Ectopy: none QRS: QRS axis: NormalConduction: Conduction: normal ST segments: ST segments: NormalT waves: T waves: normal Lab Interpretation Abnormal (test code = 83872-9) [facility] ED Preliminary Interpretation - Not an Ioczz3270-97-40 17:10:18 Test Item Value Reference Range Interpretation Comments BINDU (test code = BINDU) Soledad Arnold MD 05/21/2022 2:47 [facility] Preliminary Interpretation - Not an OrderPerformed by: Soledad Arnold MDAuthorized by: Soledad Arnold MD ECG reviewed by ED Physician in the absence of a metalizing machine operator: yes Previous ECG: Previous ECG: UnavailableInterpretat ion: Interpretation: abnormal Rate: ECG rate: 56 ECG rate assessment: bradycardic Rhythm: Rhythm: sinus bradycardia Ectopy: Ectopy: none QRS: QRS axis: NormalConduction: Conduction: normal ST segments: ST segments: NormalT waves: T waves: normal Lab Interpretation Abnormal (test code = 15380-4) [facility]2023-03-09 17:10:18Soledad Arnold MD 05/21/2022 2:47 [...] of patient's condition and review of old [facility] CenterHifs7921-50-55 17:10:18 Soledad Arnold MD 05/21/2022 2:47 PMCritical CarePerformed by: Soledad Arnold MDAuthorized by: Soledad Arnold MD Critical care provider statement: Critical care time (minutes): 35 Critical care time was exclusive of: Separately billable procedures and treating other pat ients and teaching time Critical care was necessary [...] of patient's condition and [facility] 2022-[facility]-20 17:10:18Soledad Arnold MD 05/21/2022 2:47 PMCritical CarePerformed [...] review of old [facility] urinalysis eccqtpvt8497-34-22 15:20:26 Test Item Value Reference Range Interpretation Comments Color urine, POC (test Swain code = 0892128) Clarity urine, POC (test Cloudy code = 1316664) Glucose urine, POC (test Negative Negative code = 5432962) Bilirubin urine, POC Negative Negative (test code = 7443757) Ketones urine, POC (test Negative Negative code = 4515986) Specific gravity urine, 1.010 1.005-1.030 POC (test code = 2401922) Blood urine, POC (test Trace Negative A code = 3518322) pH urine, POC (test code 6.5 See_Comment [A utomated message] = 0770073) The system [employer] generated this result transmitted ref erence range: 5.0, 5.5 , 6.0, 6.5, 7.0, 7.5, 8.0, 8.5. The refere nce range was not u sed to interpret this result as normal/abnor mal. Protein urine, POC (test Negative Negative code = 7333577) Urobilinogen urine, POC <2.0 <=2.0 (test code = 6308591) Nitrite urine, POC (test Positive Negative A code = 7037449) Leukocyte esterase Large Negative A urine, POC (test code = 9829246) Lab Interpretation (test Abnormal code = 40472-2) [facility] urinalysis rrppwiqc5435-04-00 15:20:26 Test Item Value Reference Range Interpretation Comments Color urine, POC (test Swain code = 2175384) Clarity urine, POC (test Cloudy code = 8104924) Glucose urine, POC (test Negative Negative code = 3568036) Bilirubin urine, POC Negative Negative (test code = 8312167) Ketones urine, POC (test Negative Negative code = 3275467) Specific gravity urine, 1.010 1.005-1.030 POC (test code = 5008355) Blood urine, POC (test Trace Negative A code = 1583323) pH urine, POC (test code 6.5 See_Comment [A utomated message] = 3930285) The system [employer] generated this result transmitted ref erence range: 5.0, 5.5 , 6.0, 6.5, 7.0, 7.5, 8.0, 8.5. The refere nce range was not u sed to interpret this result as normal/abnor mal. Protein urine, POC (test Negative Negative code = 7913631) Urobilinogen urine, POC <2.0 <=2.0 (test code = 7756072) Nitrite urine, POC (test Positive Negative A code = 8458708) Leukocyte esterase Large Negative A urine, POC (test code = 5431176) Lab Interpretation (test Abnormal code = 78239-7) [facility] urinalysis vtisefgr5111-26-01 15:20:26 Test Item Value Reference Range Interpretation Comments Color urine, POC (test Swain code = 7463203) Clarity urine, POC (test Cloudy code = 4644659) Glucose urine, POC (test Negative Negative code = 0882167) Bilirubin urine, POC Negative Negative (test code = 4315742) Ketones urine, POC (test Negative Negative code = 2514-8) Specific gravity urine, 1.010 1.005-1.030 POC (test code = 5811-5) Blood urine, POC (test Trace Negative A code = 4698344) pH urine, POC (test code 6.5 See_Comment [A utomated message] = 5803-2) The system [employer] generated this result transmitted ref erence range: 5.0, 5.5 , 6.0, 6.5, 7.0, 7.5, 8.0, 8.5. The refere nce range was not u sed to interpret this result as normal/abnor mal. Protein urine, POC (test Negative Negative code = 50400-5) Urobilinogen urine, POC <2.0 See_Comment [Au tomated message] (test code = 96092-9) The sy stem which generated this result transmitted ref erence range: <=2.0. T he reference range was not used to int erpret this result as normal/abnormal . Nitrite urine, POC (test Positive Negative A code = 5802-4) Leukocyte esterase Large Negative A urine, POC (test code = 1181296) Lab Interpretation (test Abnormal code = 49790-2) [facility] urinalysis noxxntaj0799-84-32 15:20:26 Test Item Value Reference Range Interpretation Comments Color urine, POC (test Swain code = 4994339) Clarity urine, POC (test Cloudy code = 9645661) Glucose urine, POC (test Negative Negative code = 3032336) Bilirubin urine, POC Negative Negative (test code = 4625982) Ketones urine, POC (test Negative Negative code = 2514-8) Specific gravity urine, 1.010 1.005-1.030 POC (test code = 5811-5) Blood urine, POC (test Trace Negative A code = 1908455) pH urine, POC (test code 6.5 See_Comment [A utomated message] = 5803-2) The system [employer] h generated this result transmitted ref erence range: 5.0, 5.5 , 6.0, 6.5, 7.0, 7.5, 8.0, 8.5. The refere nce range was not u sed to interpret this result as normal/abnor mal. Protein urine, POC (test Negative Negative code = 90197-2) Urobilinogen urine, POC <2.0 <=2.0 (test code = 94461-4) Nitrite urine, POC (test Positive Negative A code = 2-4) Leukocyte esterase Large Negative A urine, POC (test code = 8303275) Lab Interpretation (test Abnormal code = 96328-5) [facility] urinalysis qmfnuzux5330-79-06 15:20:26 Test Item Value Reference Range Interpretation Comments Color urine, POC (test Swain code = 7025059) Clarity urine, POC (test Cloudy code = 4530133) Glucose urine, POC (test Negative Negative code = 8916685) Bilirubin urine, POC Negative Negative (test code = 9612786) Ketones urine, POC (test Negative Negative code = 2514-8) Specific gravity urine, 1.010 1.005-1.030 POC (test code = 5811-5) Blood urine, POC (test Trace Negative A code = 5399007) pH urine, POC (test code 6.5 See_Comment [A utomated message] = 5803-2) The system [employer] generated this result transmitted ref erence range: 5.0, 5.5 , 6.0, 6.5, 7.0, 7.5, 8.0, 8.5. The refere nce range was not u sed to interpret this result as normal/abnor mal. Protein urine, POC (test Negative Negative code = 53183-6) Urobilinogen urine, POC <2.0 <=2.0 (test code = 44743-3) Nitrite urine, POC (test Positive Negative A code = 5802-4) Leukocyte esterase Large Negative A urine, POC (test code = 1157005) Lab Interpretation (test Abnormal code = 33144-4) [facility] urinalysis qqmphzai0642-28-06 15:20:26 Test Item Value Reference Range Interpretation Comments Color urine, POC (test Swain code = 1963693) Clarity urine, POC (test Cloudy code = 0350234) Glucose urine, POC (test Negative Negative code = 7253544) Bilirubin urine, POC Negative Negative (test code = 1749500) Ketones urine, POC (test Negative Negative code = 2514-8) Specific gravity urine, 1.010 1.005-1.030 POC (test code = 5811-5) Blood urine, POC (test Trace Negative A code = 2816032) pH urine, POC (test code 6.5 See_Comment [A utomated message] = 5803-2) The system [employer] generated this result transmitted ref erence range: 5.0, 5.5 , 6.0, 6.5, 7.0, 7.5, 8.0, 8.5. The refere nce range was not u sed to interpret this result as normal/abnor mal. Protein urine, POC (test Negative Negative code = 64420-0) Urobilinogen urine, POC <2.0 <=2.0 (test code = 51227-2) Nitrite urine, POC (test Positive Negative A code = 5802-4) Leukocyte esterase Large Negative A urine, POC (test code = 2390555) Lab Interpretation (test Abnormal code = 28735-8) [facility] urinalysis nxpockcz3275-00-40 15:20:26 Test Item Value Reference Range Interpretation Comments Color urine, POC (test Swain code = 2377302) Clarity urine, POC (test Cloudy code = 9694624) Glucose urine, POC (test Negative Negative code = 7301585) Bilirubin urine, POC Negative Negative (test code = 6157072) Ketones urine, POC (test Negative Negative code = 2514-8) Specific gravity urine, 1.010 1.005-1.030 POC (test code = 5811-5) Blood urine, POC (test Trace Negative A code = 2936364) pH urine, POC (test code 6.5 See_Comment [A utomated message] = 5803-2) The system [employer] generated this result transmitted ref erence range: 5.0, 5.5 , 6.0, 6.5, 7.0, 7.5, 8.0, 8.5. The refere nce range was not u sed to interpret this result as normal/abnor mal. Protein urine, POC (test Negative Negative code = 70487-8) Urobilinogen urine, POC <2.0 <=2.0 (test code = 65849-8) Nitrite urine, POC (test Positive Negative A code = 5802-4) Leukocyte esterase Large Negative A urine, POC (test code = 1742592) Lab Interpretation (test Abnormal code = 13252-4) [facility] gzknn5158-32-05 23:08:00 Test Item Value Reference Range Interpretation Comments Creatinine, 22.3 mg/dL Not Estab. urine (mg/dL) (test code = 2161-8) Albumin, urine <3.0 Not Estab. ug/mL Verifie d by repeat (test code = analysis 98909-2) Microalbumin/c <13 See_Comment Normal: 0 - 29 reatinine Moderately ratio (test increased: 30 - 300 code = 9318-7) Severely incr eased: >300 [Automated message] The sy stem which generated this result transmit gagan reference range : 0 - 29 mg/g creat. The reference range was not used to interpret this result as normal/abnormal . BINDU (test code Performed at: - = BINDU) [address] [id number] Director: Pedro Mcduffie MD, Phone: [phone] [facility] iyynj8159-06-10 23:08:00 Test Item Value Reference Range Interpretation Comments Creatinine, 22.3 mg/dL Not Estab. urine (mg/dL) (test code = 2161-8) Albumin, urine <3.0 Not Estab. ug/mL Verifie d by repeat (test code = analysis 94171-6) Microalbumin/c <13 See_Comment Normal: 0 - 29 reatinine Moderately ratio (test increased: 30 - 300 code = 9318-7) Severely incr eased: >300 [Automated message] The sy stem which generated this result transmit gagan reference range : 0 - 29 mg/g creat. The reference range was not used to interpret this result as normal/abnormal . BINDU (test code Performed at: - = BINDU) [address] [id number] Director: Pedro Mcduffie MD, Phone: [phone] [facility] clymqpso0717-30-76 13:11:00 Test Item Value Reference Range Interpretation Comments Hepatitis C Ab 0.1 See_Comment Negative: < 0.8 (test code = Indeterminate: 0.8 - 50497-4) 0.9 Positive: > 0.9 HCV antibody al one does not differentiate between previou s resolved infect ion and active infection. The CDC and current cli nical guidelines jn mmend that a positive HCV antibody result be followed up wit h an HCV RNA test to support the diagnosis of ac franky HCV infection. [facility] offers Hepatitis C Vir us (HCV) RNA, Diagnosis, YEVGENIY (191172) and Hepatitis C Vir us (HCV) Antibody with reflex to Quantitative Real-time PCR (072528). [Auto mated message] The sy stem which generated this result transmit gagan reference range : 0.0 - 0.9 s/co rati o. The reference r maksim was not used to interpret this result as normal/abnormal . BINDU (test code = Performed at: BINDU) - [address] [id number] Director: Pedro Mcduffie MD, Phone: [phone] [facility] yytjuyaw9684-39-42 13:11:00 Test Item Value Reference Range Interpretation Comments Hepatitis C Ab 0.1 See_Comment Negative: < 0.8 (test code = Indeterminate: 0.8 - 88943-8) 0.9 Positive: > 0.9 HCV antibody al one does not differentiate between previou s resolved infect ion and active infection. The CDC and current cli nical guidelines jn mmend that a positive HCV antibody result be followed up wit h an HCV RNA test to support the diagnosis of ac franky HCV infection. [facility] offers Hepatitis C Vir us (HCV) RNA, Diagnosis, YEVGENIY (219574) and Hepatitis C Vir us (HCV) Antibody with reflex to Quantitative Real-time PCR (054730). [Auto mated message] The sy stem which generated this result transmit gagan reference range : 0.0 - 0.9 s/co rati o. The reference r maksim was not used to interpret this result as normal/abnormal . BINDU (test code = Performed at: [facility]) - [address] [id number] Director: Pedro Mcduffie MD, Phone: [phone] [facility] [Presence] in Respiratory specimen by YEVGENIY with probe eqgyfpvxu9857-94-65 17:33:22 Test Item Value Reference Range Interpretation Comments SARS-CoV-2 (COVID-19) RNA Not detected Not-Detected [Presence] in Respiratory specimen by YEVGENIY with probe detection (test code = 14884-7) Whether patient is employed in a healthcare setting (test code = 41279-0) Whether the patient has symptoms related to condition of interest (test code = 08775-0) Patient was hospitalized because of this condition (test code = 07723-0) Whether the patient was admitted to intensive care unit (ICU) for condition of interest (test code = 10209-6) Whether patient resides in a congregate care setting (test code = 22599-4) [facility] [Presence] in Respiratory specimen by YEVGENIY with probe hjrrfehrj4497-11-23 12:46:53 Test Item Value Reference Range Interpretation Comments SARS-CoV-2 (COVID-19) RNA Not detected Not-Detected [Presence] in Respiratory specimen by YEVGENIY with probe detection (test code = 80988-7) [facility] and [id number] 14:12:59 Test Item Value Reference Range Interpretation Comments Prothrombin Time (test code = 10.9 seconds 9.0-12.0 Prothrombin Time) INR (test code = INR) 1.0 ratio 0.9-1.2 Partial Thromboplastin Semd1414-60-31 14:12:59 Test Item Value Reference Range Interpretation Comments Partial Thromboplastin Time 26.7 seconds 24.0-35.0 (test code = Partial Thromboplastin Time) CT Brain/Head w/o Kljkvsyn8005-06-90 14:10:41Patient: TELMA HARTLEY Date/Time10/07/2019 13:55 CDTReason for ExamSyncopeReportEXAM INATION: CT [...] Lorna, SamerSigned (Electronic Signature): 10/07/2019 2:10 pmMagnesium Knwfg9310-56-24 14:08:15 Test Item Value Reference Range Interpretation Comments Magnesium Level (test code = 2.0 mg/dL 1.6-2.6 Magnesium Level) Comprehensive Metabolic Syggh3965-27-81 14:08:14 Test Item Value Reference Range Interpretation [...] = AST) 18 IntlUnit/L 15-37 Comprehensive Metabolic [id number] 14:08:14 Test Item Value Reference Range Interpretation [...] >60 mL/min/1.73 m2 N AA) Comprehensive Metabolic Dmgpc3060-15-47 14:08:14 Test Item Value Reference Range Interpretation [...] >60 mL/min/1.73 m2 N eGFR Non-AA) Automated Xmpmietmiaok8760-10-23 14:00:47 Test Item Value Reference Range Interpretation Comments Neutro Auto (test code = Neutro Auto) 71.3 % N Lymph Auto (test code = Lymph Auto) 20.6 % N [place] Auto (test code = [place] Auto) 7.3 % N Eos, Auto (test code = Eos, Auto) 0.1 % N Basophil Auto (test code = Basophil 0.4 % N Auto) Neutro Absolute (test code = Neutro 6.5 x10 2.7-7.3 Absolute) Lymph Absolute (test code = Lymph 1.9 x10 0.8-3.5 Absolute) [place] Absolute (test code = [place] 0.7 x10 0.3-0.9 Absolute) Eos Absolute (test code = Eos 0.0 x10 0.0-0.3 Absolute) Baso Absolute (test code = Baso 0.0 x10 0.0-0.1 Absolute) IG [id number] 14:00:47 Test Item Value Reference Range Interpretation Comments IG (test code = IG) 0 % 0-5 IG Abs (test code = IG Abs) 0 x10 N Complete Blood Count with Gthujqxoreaw2670-58-02 14:00:46 Test Item Value Reference Range Interpretation [...] GL_SET_SLIDE _REVIEW_A UTO XR Chest 1 View Pwrafgi8978-21-98 13:50:28Patient: TELMA HARTLEY Date/Time10/07/2019 13:43 CDTReason for ExamDifficulty breath ingReportEXAM: [...] MD Lorna, SamerSigned (Electronic Signature): 10/07/2019 1:50 pmBasic Metabolic Mhgoq4949-63-21 08:52:12 Test Item Value Reference Range Interpretation [...] 8.3 mg/dL 8.5-10.1 L Level) Basic Metabolic Xnasa1790-06-30 08:52:12 Test Item Value Reference Range Interpretation [...] >60 mL/min/1.73 m2 N AA) Basic Metabolic Gdzeh0455-00-52 08:52:12 Test Item Value Reference Range Interpretation [...] N eGFR Non-AA) Complete Blood Count with Mfunfwqohxrg4717-66-01 08:30:06 Test Item Value Reference Range Interpretation [...] = Slide Review) GL_SET_SLIDE _REVIEW_A UTO Automated Aepntkazfbms2532-05-03 08:30:06 Test Item Value Reference Range Interpretation Comments Neutro Auto (test code = Neutro Auto) 67.1 % N Lymph Auto (test code = Lymph Auto) 25.5 % N [place] Auto (test code = [place] Auto) 6.8 % N Basophil Auto (test code = Basophil 0.3 % N Auto) Neutro Absolute (test code = Neutro 4.1 x10 2.7-7.3 Absolute) Lymph Absolute (test code = Lymph 1.6 x10 0.8-3.5 Absolute) [place] Absolute (test code = [place] 0.4 x10 0.3-0.9 Absolute) Baso Absolute (test code = Baso 0.0 x10 0.0-0.1 Absolute) IG Bzjva5100-20-36 08:30:06 Test Item Value Reference Range Interpretation Comments IG (test code = IG) 0 % 0-5 IG Abs (test code = IG Abs) 0 x10 N POC Fhedyue5995-40-53 12:41:57 Test Item Value Reference Range Interpretation Comments Glucose POC (test 114 mg/dL 74-106 H POC Glucos e used on code = Glucose POC) critical ly ill patients is considered " off-label use" and has no t been cleared or appr kayla by the FDA. Altern ative testing methods should be considered i f the patient is crit ically ill. Automated Yixwrpanqnkx3761-78-21 13:36:53 Test Item Value Reference Range Interpretation Comments Neutro Auto (test code = Neutro Auto) 79.9 % N Lymph Auto (test code = Lymph Auto) 15.2 % N [place] Auto (test code = [place] Auto) 4.2 % N Basophil Auto (test code = Basophil 0.3 % N Auto) Neutro Absolute (test code = Neutro 7.7 x10 2.7-7.3 H Absolute) Lymph Absolute (test code = Lymph 1.5 x10 0.8-3.5 Absolute) [place] Absolute (test code = [place] 0.4 x10 0.3-0.9 Absolute) Baso Absolute (test code = Baso 0.0 x10 0.0-0.1 Absolute) IG [id number] 13:36:53 Test Item Value Reference Range Interpretation Comments IG (test code = IG) 0 % 0-5 IG Abs (test code = IG Abs) 0 x10 N Complete Blood Count with Buotbeehnwpo3168-79-09 13:36:52 Test Item Value Reference Range Interpretation [...] Slide Review) GL_SET_SLIDE _REVIEW_A UTO Basic Metabolic [id number] 13:01:14 Test Item Value Reference Range Interpretation [...] Calcium 9.1 mg/dL 8.5-10.1 Level) Basic Metabolic [id number] 13:01:14 Test Item Value Reference Range Interpretation [...] >60 mL/min/1.73 m2 N AA) Basic Metabolic Njzsw6388-80-19 13:01:14 Test Item Value Reference Range Interpretation [...] >60 mL/min/1.73 m2 N eGFR Non-AA) Urinalysis Babznynoimk4063-36-02 13:00:35 Test Item Value Reference Range Interpretation [...] A Hyal Cast) Urinalysis with Culture, if iwxwtatnr6963-84-04 13:00:35 Test Item Value Reference Range Interpretation [...] Ind?) rule GL_SET_UA_MICRO _IND Prothrombin Time and [id number] 12:46:34 Test Item Value Reference Range Interpretation Comments Prothrombin Time (test code = 10.2 seconds 9.0-12.0 Prothrombin Time) INR (test code = INR) 1.0 ratio 0.9-1.2 Partial Thromboplastin Dkny6464-29-92 12:46:34 Test Item Value Reference Range Interpretation Comments Partial Thromboplastin Time 27.1 seconds 24.0-35.0 (test code = Partial Thromboplastin Time) XR Chest 2 Xouew5160-98-03 12:44:47Patient: TELMA HARTLEY Date/Time10/03/2019 12:35 CDTReason for [...] Gustavo MSigned (Electronic Signature): 10/03/2019 12:44 pmTroponin [id number] 16:50:12 Test Item Value Reference Range Interpretation Comments Troponin-I (test code = <0.015 ng/mL 0.010-0.040 Troponin-I) Troponin [id number] 15:33:13 Test Item Value Reference Range Interpretation Comments Troponin-I (test code = <0.015 ng/mL 0.010-0.040 Troponin-I) Comprehensive Metabolic [id number] 14:19:11 Test Item Value Reference Range Interpretation [...] AST) 14 IntlUnit/L 15-37 L Comprehensive Metabolic Isunb7258-80-93 14:19:11 Test Item Value Reference Range Interpretation [...] >60 mL/min/1.73 m2 N AA) Comprehensive Metabolic Mmyum4578-52-97 14:19:11 Test Item Value Reference Range Interpretation [...] >60 mL/min/1.73 m2 N eGFR Non-AA) IG [id number] 13:58:47 Test Item Value Reference Range Interpretation Comments IG (test code = IG) 0 % 0-5 IG Abs (test code = IG Abs) 0 x10 N Complete Blood Count with Afraabodktqe8534-80-06 13:58:46 Test Item Value Reference Range Interpretation [...] = Slide Review) GL_SET_SLIDE _REVIEW_A UTO Automated Dksnebobungp8218-52-32 13:58:46 Test Item Value Reference Range Interpretation Comments Neutro Auto (test code = Neutro Auto) 68.8 % N Lymph Auto (test code = Lymph Auto) 27.1 % N [place] Auto (test code = [place] Auto) 3.4 % N Basophil Auto (test code = Basophil 0.4 % N Auto) Neutro Absolute (test code = Neutro 4.6 x10 2.7-7.3 Absolute) Lymph Absolute (test code = Lymph 1.8 x10 0.8-3.5 Absolute) [place] Absolute (test code = [place] 0.2 x10 0.3-0.9 L Absolute) Baso Absolute (test code = Baso 0.0 x10 0.0-0.1 Absolute) CT Brain/Head w/o Nbxfypgk0325-02-91 13:38:37Patient: TELMA HARTLEY Date/Time09/13/2019 13:24 CDTReason for ExamNumbness/tinglingRe portCT BRAIN [...] (Electronic Signature): 09/13/2019 1:38 pmXR Chest 2 Fdioh8823-77-69 13:28:06Patient: TELMA HARTLEY Date/Time09/13/2019 13:10 CDTReason for [...] 1:26 pmSigned by: MD Kenney Ramon JulioSigned (ElectronicSignature): 09/13/2019 1:28 pmMRI BRAIN W/WO [id number] 09:27:31MRI BRAIN W/WO CONTRASTHISTORY: Syncopal episode, left-sided [...] suspectedretention cyst right maxillary sinus.MRA HEAD WO QYFUGEPM2641-41-22 09:20:45MRA BRAIN:CLINICAL INFORMATION: Syncopal episode and left-sided weakness Brain MRA was performed in multiple projections. There is noabnormality identified of the alat[place] of [place]. Specifically, there isno evidence of cerebral aneurysm or occlusive disease. The distalinternal carotid and vertebral basilar system is unremarkable as well. There is no abnormality identified of the posterior or middle cerebralarteries. The proximal and anterior cerebral arteries are alsovisualized and are normal.IMPRESSION: No evidence of aneurysm or vascular occlusion.XR CHEST SGL 1V, [id number] 16:47:27XR CHEST SGL 1V, FRONTALDIAGNOSIS: Cough and COPDThe heart and mediastinum are normal. No consolidation or pleural fluidis identified. The bilateral pulmonary infiltrates present on 01/17/2015have resolved.IMPRESSION: Negative portable chest.CT HEAD OR BRAIN WO [id number] 16:29:57CT HEAD OR BRAIN WO CONTRASTDIAGNOSIS: Weakness, slurred speech and facial numbnessCerebral atrophy and chronic white matter ischemia are unchanged since05/06/2015. The midline is not shifted. No intracranial hemorrhage, masseffect, extracerebral collection or evidence of an acute infarct isnoted.Radiation dose lowering techniques were used according to ALARAprinciple.IMPRESSION: Cerebral atrophy and chronic white matter ischemiaunchanged. Notes Date/Time Note Provider Source 2017-04-05 14:10:11 [id number]:10:11 The [facility] HISTORY AND PHYSICALPATIENT NAME: TELMA HARTLEY PHYSICIAN: Nicolas Roach M.D. ADMITTED: 08/15/2016 19:45:00 MR NUMBER: [id number] DISCHARGED: 08/17/2016 10:44:00 _ ADMITTING DIAGNOSES: The patient has hypertensive emergency, rule out cerebrovascular accident; history of diabetes mellitus, [id number]-gadwvgkjg; history of pancreatic cancer. DISCHARGE DIAGNOSES: Hypertension, controlled; diabetes mellitus; history of pancreatic cancer. CONSULTATION: None. PROCEDURE : MRI/MRA of the brain with negative finding. MICAH Beckford COMPLAINT: Dizziness. HISTORY OF PRESENT ILLNESS : This is a case history of a 61-year-old [facility] female with past medical history significant for hypertension, diabetes mellitus, [id number]-coytticfj, history of pancreatic cancer. The patient referred [...] for above-mentioned, history of hypertension, diabetes mellitus, fhq-ysnxahy-gninldtud, pancreatic cancer. [facility] MEDICATIONS: Metoprolol succinate.ALLERGIES: PROCARDIA. PAST SURGICAL [...] admission, presented with blood pressure 180/120, [facility] HISTORY AND PHYSICALrespiratory rate of 18 [...] . LABORATORY EVALUATION: The patient upon admissio was evaluated with chest x-ray with finding [...] assessment and treatment of her condition. [facility] HISTORY AND PHYSICALRoussesanchez Roach M.D.CC: [id number]: 08/17/2016 10:54:50 ESTDT: 08/17/2016 15:47:11 ESTIASIS /NTS Tkh#: [id number] Electronically Authenticated and Edited by:Nicolas Roach M.D. On 08/18/2016 08:27 AM CDTHPHistory and physical [id number] for patient [id number]:10:11
[2023-02-15] MEDS ORDERED: MORPHINE 4 MG/ML SYR ONE (11:43)
[2023-02-15] MEDS ORDERED: ONDANSETRON 4 MG/2 ML VIAL ONE (11:43)
--- NOTE | 2023-02-15 12:04 | RAD REPORT ---
EXAM DESCRIPTION: CT - Head C Spine Cap Wo Con - 02/15/2023 11:42 am CLINICAL HISTORY: TRAUMA COMPARISON: Head Brain Wo Cont dated 02/04/2023; Chest For Pe Angio dated 12/06/2022; Chest Abd Pelvi s Wo Con dated 11/26/2022 TECHNIQUE: Head and cervical spine CT images were obtained without IV contrast. Chest, abdomen, and pelvis CT images were obtained also without IV contrast. Multiplanar reformats were generated and rev iewed. All CT scans are performed using dose optimization technique as appropriate and may include automated exposure control or mA/KV adjustment according to patient size. FINDINGS: CT HEAD: No intracranial hemorrhage, mass effect, or edema. No evidence of acute territorial infarct. Mild dif fuse parenchymal volume loss. Stable ventricular caliber. Patchy periventricular hypodensities, stabl e in burden, most suggestive of chronic small vessel ischemic changes. No midline shift or abnormal f luid collection. The ventricles are normal in caliber and configuration for age. Basal cisterns are p atent. Mastoid aircells and paranasal sinuses are clear. No acute skull fracture. CT CERVICAL SPINE: No acute cervical spine fracture or subluxation. Straightening of normal cervical lordosis which may be positional or secondary to muscle spasm. Vertebral body heights are well maintained. Facet joints are normal in alignment. No hyperattenuating canal hematoma. Prevertebral and paraspinous soft tissue s are unremarkable. CT CHEST: No pneumothorax, pulmonary contusion or pleural fluid collection. No mediastinal hematoma and the aor ta and pulmonary arteries are unremarkable. No chest will mass or abnormal axillary finding. No displ aced rib fracture or other significant bony finding. CT ABDOMEN/ PELVIS: No evidence of traumatic injury to solid abdominal viscera. Gallbladder and biliary tree are unremark able. No bowel injury or significant finding. No free air, free fluid or abnormal fat stranding. 1.7 cm ovoid calcific lesion in the left flank peritoneal space, may represent sequelae of a remote oment al infarct. Sequelae of gastric bypass procedure. Status post cholecystectomy. No urinary bladder abn ormality. No significant bony finding. Healing/ healed posterior right lower rib fracture, stable. Anterior wed ge compression deformities throughout the bodies of T11-L2, stable. Bilateral breast implant capsular dense calcifications. IMPRESSION: No acute traumatic findings. Stable chronic and incidental findings as above.
--- NOTE | 2023-02-15 12:23 | RAD REPORT ---
EXAM DESCRIPTION: RAD - Hip Right 2 View - 02/15/2023 12:13 pm CLINICAL HISTORY: PAIN COMPARISON: No comparisons TECHNIQUE: Right hip, AP and frog-leg views. FINDINGS: There is no fracture or dislocation. Degenerative changes of the symphysis pubis. Lobulate d focus of heterotopic calcification superior to the greater trochanter. Numerous pelvic phleboliths and other rounded ossified densities within the lateral right thigh soft tissues which may represent venous phleboliths as well. No acute or destructive bony process seen. Coil embolization material al franny the right pelvic sidewall. IMPRESSION: No acute findings of the right hip. Focus of heterotopic calcification superior to the r ight greater trochanter, may relate to longstanding sequelae of trochanteric bursitis.
--- NOTE | 2023-02-15 12:25 | RAD REPORT ---
EXAM DESCRIPTION: RAD - Shoulder Left 2 View - 02/15/2023 12:16 pm CLINICAL HISTORY: PAIN COMPARISON: No comparisons TECHNIQUE: Internal and external rotation views of the left shoulder were obtained. FINDINGS: There is no fracture or dislocation. AC joint is normal in appearance. Advanced degenerati ve changes with osseous remodeling of the humeral head. In part this may relate to sequelae of remote fracture healing. Mild narrowing of the joint space. No acute or suspicious findings. IMPRESSION: No acute osseous abnormality. Degenerative changes and possible remote sequelae of traum a as above.
--- NOTE | 2023-02-15 12:33 | RAD REPORT ---
EXAM DESCRIPTION: RAD - Elbow Left 3 View - 02/15/2023 12:10 pm CLINICAL HISTORY: PAIN COMPARISON: No comparisons TECHNIQUE: Left elbow, 3 views. FINDINGS: No fracture is identified. No elevated posterior fat pad to suggest an effusion. The dista l humerus plate and screw fusion as well as a cannulated fusion screw along the olecranon and proxima l ulna, without evidence of complications. There is no dislocation or periosteal reaction noted. No foreign body or other soft tissue abnormalit y. IMPRESSION: No acute osseous abnormality. Fusion hardware as above.
--- NOTE | 2023-02-15 12:34 | RAD REPORT ---
EXAM DESCRIPTION: RAD - Wrist Left 3 View - 02/15/2023 12:14 pm CLINICAL HISTORY: PAIN COMPARISON: No comparisons TECHNIQUE: Left wrist, 3 views. FINDINGS: No acute fracture. There is no dislocation or periosteal reaction noted. Up to moderate de generative changes of the carpus and mild degenerative changes at the thumb base. No suspicious bony finding. No foreign body or other soft tissue abnormality. IMPRESSION: No acute osseus abnormality. Degenerative changes as above. .
--- NOTE | 2023-02-15 12:34 | RAD REPORT ---
EXAM DESCRIPTION: RAD - Forearm Right - 02/15/2023 12:11 pm CLINICAL HISTORY: PAIN COMPARISON: Elbow Left 3 View dated 02/15/2023 TECHNIQUE: Right forearm, 2 views. FINDINGS: No evidence of acute fracture is identified. Findings of chronic distal humerus fracture n onunion. There is no dislocation or periosteal reaction noted. No foreign body or other soft tissue abnormality. IMPRESSION: No acute osseous abnormality. 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
[2023-02-15] MEDS ORDERED: MAGNES/ALUMIN/SIMET 30ML UCUP ONE (12:49)
--- NOTE | 2023-02-15 13:22 | EDPHYS ---
Physician Documentation [facility] Name: Reina Hartley Age: 67 yrs Sex: Female : 1955 Arrival Date: 02/15/2023 Time: 11:05 Bed 13 Private MD: ED Physician Rich Anand HPI: 02/15 13:40 This 67 yrs old Female presents to ER via EMS with complaints of Fall. rt 13:40 Patient presents to the ED with mechanical fall. Patient states that she lost her rt balance. She denies preceding symptoms. She states that she did hit her head, complains of neck, back pain. Complains of pain to the left wrist, left elbow, left shoulder as well as the right forearm. Denies other acute complaints, symptoms are aching nature, nonradiating, moderate severity, no other aggravating leaving factors.. Historical: - Allergies: 12:04 Procardia; nj1 - PMHx: 12:04 diabetes mellitus; Hypertensive disorder; nj1 - PSHx: 12:04 breast augmentation; Cholecystectomy; Gastric Bypass; hysterectomy; nj1 - Immunization history:: Client reports receiving the 2nd dose of the Covid vaccine. - Social history:: Smoking status: Patient reports the use of cigarette tobacco products, smokes one pack cigarettes per day. - Family history:: not pertinent. ROS: 13:40 Constitutional: Negative for fever, chills, and weight loss, Cardiovascular: Negative rt for chest pain, palpitations, and edema, Respiratory: Negative for shortness of breath, cough, wheezing, and pleuritic chest pain, Abdomen/GI: Negative for abdominal pain, nausea, vomiting, diarrhea, and constipation, Neuro: Negative for headache, weakness, numbness, tingling, and seizure, 13:40 Neck: Positive for pain with movement, pain at rest, 13:40 Back: Positive for pain at rest, Negative for decreased range of motion, 13:40 MS/extremity: Positive for pain, Skin tear, Exam: 13:40 Constitutional: This is a well developed, well nourished patient who is awake, alert, rt and in no acute distress. Head/Face: Normocephalic, atraumatic. Neck: Trachea midline, no thyromegaly or masses palpated, and no cervical lymphadenopathy. Supple, full range of motion without nuchal rigidity, or vertebral point tenderness. No Meningismus. Chest/axilla: Normal chest wall appearance and motion. Nontender with no deformity. No lesions are appreciated. Cardiovascular: Regular rate and rhythm with a normal S1 and S2. No gallops, murmurs, or rubs. Normal PMI, no JVD. No pulse deficits. Respiratory: Lungs have equal breath sounds bilaterally, clear to auscultation and percussion. No rales, rhonchi or wheezes noted. No increased work of breathing, no retractions or nasal flaring. Abdomen/GI: Soft, non-tender, with normal bowel sounds. No distension or tympany. No guarding or rebound. No evidence of tenderness throughout. Neuro: Awake and alert, GCS 15, oriented to person, place, time, and situation. Cranial nerves II-XII grossly intact. Motor strength 5/5 in all extremities. Sensory grossly intact. Cerebellar exam normal. Normal gait. 13:40 Musculoskeletal/extremity: Skin tear noted to left wrist, pain without deformity, bruising noted to the left wrist, elbow, shoulder. There is tenderness to the right forearm, also with no bruising, deformity.. Vital Signs: 11:15 BP 140 / 85; Pulse 81; Resp 16; Temp 97.9(TE); Pulse Ox 98% on R/A; Weight 63.5 kg; nj1 Height 5 ft. 2 in. ; Pain 10/10; 11:15 Body Mass Index 25.61 (63.50 kg, 157.48 cm) [facility] 11:15 Pain Scale: Adult ct1 MDM: 11:08 Patient medically screened. rt 13:40 Differential Diagnosis Contusion, fracture, intracranial hemorrhage, chronic pain. Data rt reviewed: vital signs, nurses notes, radiologic studies. Independent interpretation of the following test(s) in the Emergency Department CT Scan: My interpretation is No intracranial hemorrhage syndrome interpretation of CT scan images. Care significantly affected by the following chronic conditions: Diabetes, Hypertension. Counseling: I had a detailed discussion with the patient and/or guardian regarding the historical points, exam findings, and any diagnostic results supporting the discharge/admit diagnosis, radiology results, the need for outpatient follow up. 02/15 11:11 Order name: Forearm Right XRAY; Complete Time: 12:41 rt 02/15 11:11 Order name: Hip Right 2 View XRAY; Complete Time: 12:32 rt 02/15 11:11 Order name: Wrist Left (3 View) XRAY; Complete Time: 12:41 rt 02/15 11:11 Order name: Elbow Left 3 View XRAY; Complete Time: 12:34 rt 02/15 11:11 Order name: Shoulder Left (2 View) XRAY; Complete Time: 12:32 rt 02/15 11:11 Order name: Head C Spine Cap Wo Con CT; Complete Time: 12:32 rt 02/15 13:16 Order name: Dressing - Wound; Complete Time: 13:30 rt 02/15 13:16 Order name: Crutches; Complete Time: 13:36 rt Administered Medications: 11:30 Drug: Ondansetron IVP 4 mg IVP once; over 2 minutes Route: IVP; Site: left antecubital; nj1 12:30 Follow up: Response: No adverse reaction nj1 11:32 Drug: morphine IVP or IV 4 mg IVP once over 4 mins Route: IVP; Infused Over: 4 mins; nj1 Site: left antecubital; 12:30 Follow up: Response: No adverse reaction; Pain is unchanged, physician notified nj1 12:50 Drug: Alum-Mag Hydroxide-Simeth PO Suspension (200 mg-200 mg-20 mg/5 mL) 30 ml PO once nj1 Route: PO; 13:29 Drug: Bacitracin Topical Ointment (500 unit/g) 1 application Topical once Route: aa5 Topical; Site: wound; 13:30 CANCELLED (Physician Discretion): [id number] mg IM once aa5 13:30 Drug: Ketorolac IVP 15 mg IVP once Route: IVP; Site: left wrist; aa5 Disposition Summary: 02/15/23 13:21 Discharge Ordered Notes: Location: Home rt Problem: new rt Symptoms: have improved rt Condition: Stable rt Diagnosis - mechanical fall rt - back pain rt - skin tear to left arm rt Followup: rt - With: Private Physician - When: 2 - 3 days - Reason: Discharge Instructions: - Discharge Summary Sheet rt - Fall Prevention in the Home, Adult rt - Skin Tear rt Forms: - Medication Reconciliation Form rt - Thank You Letter rt - Antibiotic Education rt - Prescription Opioid Use rt - Patient Portal Instructions rt - Leadership Thank You Letter rt Signatures: Dispatcher [employer] Savannah Grissom, RN RN aa5 Rich Anand MD MD rt Leigha Berrios RN RN nj1 Corrections: (The following items were deleted from the chart) 13:30 13:20 Ketorolac IM 15 mg IM once ordered. rt aa5
--- NOTE | 2023-02-15 13:22 | ER ---
Nurse's Notes [facility] Name: Reina Hartley Age: 67 yrs Sex: Female : 1955 Arrival Date: 02/15/2023 Time: 11:05 Bed 13 Private MD: Diagnosis: mechanical fall;back pain;skin tear to left arm Presentation: 02/15 11:15 Chief complaint: Patient states: Slip and fell a "while ago" today. Complains of right nj1 hip, shoulder, left knee and low back. 11:15 Method Of Arrival: EMS [facility] 11:15 Coronavirus screen: Vaccine status: Patient reports receiving the 2nd dose of the covid nj1 vaccine. Ebola Screen: Patient denies travel to an Ebola-affected area in the 21 days before illness onset. Initial Sepsis Screen: Does the patient meet any 2 criteria? No. Patient's initial sepsis screen is negative. Does the patient have a suspected source of infection? No. Patient's initial sepsis screen is negative. Risk Assessment: Do you want to hurt yourself or someone else? Patient reports no desire to harm self or others. Onset of symptoms was February 15, 2023. 11:15 Acuity: ANDREA 3 nj1 12:42 Chief complaint: EMS states: Fall, tripped over slippers. CO hips, knees and neck pain. nj1 Cleared CLARICE Calrke. Pt on the floor upon arrival, smoking a cigarette. Sates she hit head with no LOC. BS 78. EMTP Marla Ruano here to give report, report given to Dr Keene earlier when patient arrived. Historical: - Allergies: 12:04 Procardia; nj1 - PMHx: 12:04 diabetes mellitus; Hypertensive disorder; nj1 - PSHx: 12:04 breast augmentation; Cholecystectomy; Gastric Bypass; hysterectomy; nj1 - Immunization history:: Client reports receiving the 2nd dose of the Covid vaccine. - Social history:: Smoking status: Patient reports the use of cigarette tobacco products, smokes one pack cigarettes per day. - Family history:: not pertinent. Screenin:07 [facility] ED Fall Risk Assessment (Adult) Score/Fall Risk Level 0 - 2 = Low Risk nj Oriented to surroundings, Maintained a safe environment, Hourly rounding (assess needs \\T\\ fall precautionary measures) done. Abuse screen: Denies threats or abuse. Denies injuries from another. Nutritional screening: No deficits noted. Tuberculosis screening: No symptoms or risk factors identified. Assessment: 11:15 General: Appears in no apparent distress. uncomfortable, Behavior is calm, cooperative, nj1 appropriate for age. Pain: Complains of pain in right hip, shoulder, neck, left knee and low back pain. Neuro: Level of Consciousness is awake, alert, obeys commands, Oriented to person, place, time, situation. Cardiovascular: Patient's skin is warm and dry. Respiratory: Airway is patent Respiratory effort is even, unlabored. 11:15 Musculoskeletal: Reports pain in right hip, shoulder, neck, left knee and low back pain.nj1 13:30 Reassessment: Patient is alert, oriented x 3, equal unlabored respirations, skin aa5 warm/dry/pink. Wound to left wrist, skin tear, dressed with gauze and Kerlix.. 14:00 Reassessment: Patient is alert, oriented x 3, equal unlabored respirations, skin aa5 warm/dry/pink. Awaiting for ride home.. 14:00 Reassessment: Given crutches per MD order. . aa5 Vital Signs: 11:15 BP 140 / 85; Pulse 81; Resp 16; Temp 97.9(TE); Pulse Ox 98% on R/A; Weight 63.5 kg; nj1 Height 5 ft. 2 in. ; Pain 10/10; 11:15 Body Mass Index 25.61 (63.50 kg, 157.48 cm) nj1 11:15 Pain Scale: Adult [facility] ED Course: 11:08 Patient arrived in ED. ll1 11:08 Rich Anand MD is Attending Physician. rt 11:11 Leigha Berrios, WALI is Primary Nurse. nj1 11:15 Patient has correct armband on for positive identification. Bed in low position. Call [facility] light in reach. 11:20 Inserted saline lock: 24 gauge wrist, using aseptic technique. em1 11:44 Head C Spine Cap Wo Con CT In Process Unspecified. EDMS 12:04 Triage completed. nj1 12:05 Arm band placed on. nj1 12:10 Forearm Right XRAY In Process Unspecified. EDMS 12:10 Hip Right 2 View XRAY In Process Unspecified. EDMS 12:10 Wrist Left (3 View) XRAY In Process Unspecified. EDMS 12:10 Elbow Left 3 View XRAY In Process Unspecified. EDMS 12:10 Shoulder Left (2 View) XRAY In Process Unspecified. EDMS 12:32 Notified ED physician of other patient requesting medication for pain, heartburn and nj1 food. 14:33 No provider procedures requiring assistance completed. nj1 14:33 IV discontinued, intact, bleeding controlled. nj1 14:34 Provided Education on: use of crutches, education provided by Silvana Millard RN \\T\\ [id number].. nj1 Administered Medications: 11:30 Drug: Ondansetron IVP 4 mg IVP once; over 2 minutes Route: IVP; Site: left antecubital; nj1 12:30 Follow up: Response: No adverse reaction nj1 11:32 Drug: morphine IVP or IV 4 mg IVP once over 4 mins Route: IVP; Infused Over: 4 mins; nj1 Site: left antecubital; 12:30 Follow up: Response: No adverse reaction; Pain is unchanged, physician notified nj1 12:50 Drug: Alum-Mag Hydroxide-Simeth PO Suspension (200 mg-200 mg-20 mg/5 mL) 30 ml PO once nj1 Route: PO; 13:29 Drug: Bacitracin Topical Ointment (500 unit/g) 1 application Topical once Route: aa5 Topical; Site: wound; 13:30 CANCELLED (Physician Discretion): [id number] mg IM once aa5 13:30 Drug: Ketorolac IVP 15 mg IVP once Route: IVP; Site: left wrist; aa5 Medication: 14:33 VIS not applicable for this client. nj1 Outcome: 13:21 Discharge ordered by . rt 14:30 Patient left the ED. nj1 14:34 Discharged to home via wheelchair, with crutches, with family, nj1 14:34 Condition: stable 14:34 Discharge instructions given to patient, Instructed on discharge instructions, follow up and referral plans. wound care, Instructions given earlier to patient by Silvana Millard RN Signatures: Dispatcher [employer] EDMS Pablo Cook em1 Savannah Milalrd RN RN aa5 Tru Stevens RN RN ll1 Rich Anand MD MD rt Leigha Berrios RN RN nj1 Corrections: (The following items were deleted from the chart) 14:54 14:54 Patient left the ED. nj1 nj1
[2023-02-15] MEDS ORDERED: KETOROLAC 30 MG/ML INJ ONE (13:41)
[2023-02-15] MEDS ORDERED: MUPIROCIN 2% OINT 22GM TUBE TOP ONE (13:42)
[2023-02-15 15:14] VITALS: BP 140/85; TEMP 97.9; O2SAT 98
== END 2023-02-15 14:54 | disposition home or self-care (01) ==
LOC: ER 11:05
DX: M54.9 Dorsalgia, unspecified (principal); S41.112A Laceration without foreign body of left upper arm, initial encounter; W18.30XA Fall on same level, unspecified, initial encounter; F17.210 Nicotine dependence, cigarettes, uncomplicated; Z98.82 Breast implant status; Z88.8 Allergy status to other drugs, medicaments and biological substances
CPT/HCPCS: 70450; 71250; 72125; 99284; J2405

== ENCOUNTER 2023-02-16 13:15 | Inpatient (IN) | payer OTHER ==
[2023-02-16] MEDS ORDERED: HYDROCODONE/APAP 7.5/325 MG TAB ONE (14:12)
[2023-02-16] MEDS ORDERED: KETOROLAC 30 MG/ML INJ ONE (14:12)
[2023-02-16] MEDS ORDERED: MAGNES/ALUMIN/SIMET 30ML UCUP ONE (14:20)
--- NOTE | 2023-02-16 15:32 | RAD REPORT ---
EXAM DESCRIPTION: RAD - Pelvis - 02/16/2023 3:25 pm CLINICAL HISTORY: PAIN COMPARISON: No comparisons FINDINGS: Subcapital fracture is present involving the proximal left femur with mild varus angulatio n. No dislocation is seen.
--- NOTE | 2023-02-16 15:34 | RAD REPORT ---
EXAM DESCRIPTION: RAD - Lumbar Spine 3 Views - 02/16/2023 3:25 pm CLINICAL HISTORY: LOWER BACK PAIN Radiculopathy COMPARISON: Angio Aorta For Dissection dated 02/04/2023 FINDINGS: Mild diffuse osteopenia is seen. Moderate wedge compression deformities are seen involving the lower thoracic and upper lumbar levels. These are favored to be chronic in timeframe. Mild levos coliosis is present. Surgical clips are present left upper quadrant. IMPRESSION: Mild diffuse osteopenia. Multiple moderate wedge compression deformities are present, favored to be chronic in timeframe.
--- NOTE | 2023-02-16 15:35 | RAD REPORT ---
EXAM DESCRIPTION: RAD - Knee Right 3 View - 02/16/2023 3:25 pm CLINICAL HISTORY: PAIN COMPARISON: No comparisons FINDINGS: Prominent diffuse osteopenia. No acute fracture or dislocation seen. No joint effusion. Mi ld atherosclerosis.
--- NOTE | 2023-02-16 16:08 | EDPHYS ---
Physician Documentation [facility] Name: Reina Hartley Age: 67 yrs Sex: Female : 1955 Arrival Date: 02/16/2023 Time: 13:15 Bed 18 Private MD: ED Physician Rich Anand HPI: 02/16 16:15 This 67 yrs old Female presents to ER via EMS with complaints of Fall Injury. kb 16:15 Details of fall: The patient fell from an upright position, walking and slipped. kb Patient is a 67-year-old female who had a mechanical fall yesterday. States she slipped and fell onto her right side. Was seen yesterday and discharged home without acute findings. Came back today because she has been unable to get out of bed due to pain. Reports pain to both hips, right knee, neck. Denies any new trauma or falls.. Historical: - Allergies: 13:18 Procardia; eh3 - PMHx: 13:18 diabetes mellitus; Hypertensive disorder; eh3 - PSHx: 13:18 breast augmentation; Cholecystectomy; Gastric Bypass; hysterectomy; eh3 - Immunization history:: Adult Immunizations unknown. - Social history:: Smoking status: Patient reports the use of cigarette tobacco products, smokes one pack cigarettes per day. ROS: 16:11 Constitutional: Negative for fever, chills, and weight loss, kb 16:11 Neck: Positive for pain with movement, pain at rest, 16:11 Back: Positive for pain at rest, pain with movement, of the lumbar area, 16:11 MS/extremity: Positive for pain, of the pelvis and right knee, 16:11 All other systems are negative, Exam: 16:11 Constitutional: This is a well developed, well nourished patient who is awake, alert, kb and in no acute distress. Head/Face: Normocephalic, atraumatic. ENT: Moist Mucous membranes Cardiovascular: Regular rate Respiratory: Respirations even and unlabored. No increased work of breathing. Talking in full sentences Skin: Warm, dry with normal turgor. Normal color. Neuro: Awake and alert, GCS 15, oriented to person, place, time, and situation. Moves all extremities. Normal gait. 16:11 Musculoskeletal/extremity: Extremities: grossly normal except: noted in the left hip: tenderness, ROM: limited active range of motion due to pain, Circulation is intact in all extremities. Sensation intact. Weight bearing: is unable to bear weight, Vital Signs: 13:18 BP 157 / 73; Pulse 87; Resp 18; Temp 99.2(O); Pulse Ox 95% on R/A; Weight 63.5 kg; eh3 Height 5 ft. 2 in. ; Pain 10/10; 14:00 BP 158 / 77; Pulse 87; Resp 18; Pulse Ox 98% on R/A; eh3 15:00 BP 158 / 83; Pulse 87; Resp 18; Pulse Ox 98% on R/A; eh3 13:18 Body Mass Index 25.60 (63.50 kg, 157.48 cm) [facility] 13:18 Pain Scale: Adult eh3 MDM: 13:29 Patient medically screened. kb 16:07 Differential diagnosis: contusion, fracture, strain. Data reviewed: vital signs, nurses kb notes. Consideration of Admission/Observation Patient was admitted/placed on observation. Escalation of care including admission/observation considered. Management of patient was discussed with the following: Hospitalist: Hospitalist team. Oncology Account Specialist: Dr Spring accepts pt for consult. 16:07 Historians other than the Patient: EMS: [facility]. Counseling: I had a detailed kb discussion with the patient and/or guardian regarding the historical points, exam findings, and any diagnostic results supporting the discharge/admit diagnosis, lab results, radiology results, the need for further work-up and treatment in the hospital. 02/16 15:39 Order name: CBC with Diff; Complete Time: 16:50 kb 02/16 15:39 Order name: Basic Metabolic Panel; Complete Time: 17:07 kb 02/16 21:33 Order name: Glucose, Ancillary Testing; Complete Time: 21:45 EDMS 02/16 13:35 Order name: Knee Right 3 View XRAY; Complete Time: 15:36 kb 02/16 13:35 Order name: Pelvis XRAY; Complete Time: 15:36 kb 02/16 13:35 Order name: Lumbar Spine (3 Views) XRAY; Complete Time: 15:36 kb 02/16 15:59 Order name: Femur Left XRAY; Complete Time: 17:38 kb 02/16 14:57 Order name: Social Service Consult EDHI 02/16 15:39 Order name: EKG; Complete Time: 15:42 kb 02/16 15:39 Order name: IV Start; Complete Time: 16:40 kb 02/16 15:39 Order name: EKG - Nurse/Tech; Complete Time: 16:38 kb Administered Medications: 14:02 Drug: Hydrocodone-Acetaminophen PO (7.5 mg-325 mg) 1 tabs PO once Route: PO; 3 14:02 Drug: Ketorolac IM 30 mg IM once Route: IM; Site: left ventrogluteal; [facility] 14:07 Drug: Alum-Mag Hydroxide-Simeth PO Suspension (200 mg-200 mg-20 mg/5 mL) 30 ml PO once 3 Route: PO; 16:30 Drug: morphine IVP or IV 4 mg IVP once over 4 mins Route: IVP; Infused Over: 4 mins; 3 Site: left forearm; 16:30 Drug: Ondansetron IVP 4 mg IVP once; over 2 minutes Route: IVP; Site: left forearm; [facility] 17:26 Drug: Potassium PO Effervescent Tablet 50 mEq PO once; dissolve in 4 ounces of water or [facility] juice Route: PO; 17:26 Drug: NS 0.9% IV 1000 ml IV at 75 ml/hr continuous Route: IV; Rate: 75 ml/hr; Site: [facility] left forearm; Disposition Summary: 02/16/23 16:07 Hospitalization Ordered Notes: Hospitalization Status: Inpatient Admission kb Condition: Stable kb Problem: new kb Symptoms: are unchanged kb Bed/Room Type: Standard kb Provider: Alessandra Ryder(02/16/23 16:14) kb [facility]12[facility] vc1 Room Assignment: [facility](02/16/23 22:31) Diagnosis - Proximal left femur fracture kb Forms: - Medication Reconciliation Form kb - SBAR form kb - Leadership Thank You Letter kb Addendum: 02/18/2023 10:17 Co-signature as Attending Physician, Rich Anand MD I reviewed the patient's care r t provided by the Advanced Practice Provider and agree with the diagnosis and treatment plan. Signatures: Dispatcher [employer] Cami Guthrie, ISAIAS FOX-Vijaya White Cindy, RN RN Radha Rose RN RN vc1 Haven Flowers RN RN eh3 Rich Anand MD MD rt Corrections: (The following items were deleted from the chart) 02/16 16:14 16:07 Alvin Edwards kb kb 17:13 16:07 Telemetry/MedSurg (Inpatient) [facility] 17:13 16:07 kb bd 22:12 17:13 [facility] ER HOLD bd vc1 22:12 17:13 ERHOLD- bd vc1 22:31 22:12 vc1
--- NOTE | 2023-02-16 16:08 | ER ---
Nurse's Notes [facility] Name: Reina Hartley Age: 67 yrs Sex: Female : 1955 Arrival Date: 02/16/2023 Time: 13:15 Bed 18 Private MD: Diagnosis: Proximal left femur fracture Presentation: 02/16 13:17 Chief complaint: EMS states: pt was seen here yesterday for mechanical fall at home, eh3 now complaining of left rub, bilateral hip, and right knee pain and states "I think I sprained my eyes when I fell yesterday." States she has not taken her BP medicine for a couple weeks due to not being able to afford the copay. Coronavirus screen: Vaccine status: Patient reports being unvaccinated. Ebola Screen: No symptoms or risks identified at this time. Risk Assessment: Do you want to hurt yourself or someone else? Patient reports no desire to harm self or others. Onset of symptoms was February 16, 2023. 13:17 Method Of Arrival: EMS: [place] [id number] 13:17 Acuity: ANDREA 3 3 13:18 Initial Sepsis Screen: Does the patient meet any 2 criteria? No. Patient's initial 3 sepsis screen is negative. Does the patient have a suspected source of infection? No. Patient's initial sepsis screen is negative. Triage Assessment: 13:18 General: Appears in no apparent distress. uncomfortable, Behavior is calm, cooperative. eh3 Pain: Complains of pain in left hip and right hip, right knee, left ribs. Neuro: Level of Consciousness is awake, alert, obeys commands, Oriented to person, place, time, situation. Cardiovascular: Capillary refill < 3 seconds Patient's skin is warm and dry. Respiratory: Airway is patent Respiratory effort is even, unlabored, Respiratory pattern is regular, symmetrical. GI: Abdomen is round non-distended. Derm: Skin is pink, warm \\T\\ dry. Musculoskeletal: Circulation, motion, and sensation intact. Historical: - Allergies: 13:18 Procardia; eh3 - PMHx: 13:18 diabetes mellitus; Hypertensive disorder; eh3 - PSHx: 13:18 breast augmentation; Cholecystectomy; Gastric Bypass; hysterectomy; eh3 - Immunization history:: Adult Immunizations unknown. - Social history:: Smoking status: Patient reports the use of cigarette tobacco products, smokes one pack cigarettes per day. Screenin:18 [facility] ED Fall Risk Assessment (Adult) Score/Fall Risk Level 3 or more points = High eh3 Risk Oriented to surroundings, Maintained a safe environment, Educated pt \\T\\ family on fall prevention, incl call for assistance when getting out of bed, Assessed \\T\\ reinforced patient's understanding of fall precautions, Provided non-skid footwear, Hourly rounding (assess needs \\T\\ fall precautionary measures) done, Used ambulatory aids as needed (educated on \\T\\ assisted with). Abuse screen: Denies threats or abuse. Denies injuries from another. Nutritional screening: No deficits noted. Tuberculosis screening: No symptoms or risk factors identified. Assessment: 13:18 Reassessment: No changes from previously documented assessment. See triage assessment. eh3 14:00 Reassessment: Patient and/or family updated on plan of care and expected duration. Pain eh3 level reassessed. Patient is alert, oriented x 3, equal unlabored respirations, skin warm/dry/pink. 14:41 Reassessment: Daughter Cristal called and pt provided verbal consent to share PMI. eh3 Daughter states she thinks pt is in the early stages of dementia because she is forgetful and acting strange for the past 2-3 months. Daughter reports pt is having visual hallucinations at home, a couple nights ago she saw a dog that wasn't there and talking to people who were not there. Daughter concerned if pt is discharged to home and daughter cannot move the pt. States pt refuses to try to move herself, is urinating in the bed. dye house worker consultation requested. FAMILY CONTACT: Cristal (daughter): [phone]. 15:00 Reassessment: Patient and/or family updated on plan of care and expected duration. Pain eh3 level reassessed. Patient is alert, oriented x 3, equal unlabored respirations, skin warm/dry/pink. 15:48 Reassessment: Spoke with Bebe Lopez about case management, Bebe will call pt's eh3 daughter Cristal and then call back to report findings. Vital Signs: 13:18 BP 157 / 73; Pulse 87; Resp 18; Temp 99.2(O); Pulse Ox 95% on R/A; Weight 63.5 kg; eh3 Height 5 ft. 2 in. ; Pain 10/10; 14:00 BP 158 / 77; Pulse 87; Resp 18; Pulse Ox 98% on R/A; eh3 15:00 BP 158 / 83; Pulse 87; Resp 18; Pulse Ox 98% on R/A; eh3 13:18 Body Mass Index 25.60 (63.50 kg, 157.48 cm) eh3 13:18 Pain Scale: Adult 3 ED Course: 13:17 Patient arrived in ED. eh3 13:18 Triage completed. eh3 13:18 Patient has correct armband on for positive identification. Bed in low position. Call eh3 light in reach. Side rails up X2. Provided Education on: use of call moyer. Pulse ox on. NIBP on. 13:19 Arm band placed on Patient placed in an exam room, on a stretcher. ll1 13:29 Cami Anderson FNP-C is PHCP. kb 13:29 Rich Anand MD is Attending Physician. kb 13:37 Haven Flowers, WALI is Primary Nurse. eh3 15:26 Knee Right 3 View XRAY In Process Unspecified. EDMS 15:26 Pelvis XRAY In Process Unspecified. EDMS 15:26 Lumbar Spine (3 Views) XRAY In Process Unspecified. EDMS 16:07 Alvin Edwards MD is Hospitalizing Provider. kb 16:14 Alessandra Ryder MD is Hospitalizing Provider. kb 16:30 Inserted saline lock: 22 gauge in left forearm, using aseptic technique. Blood eh3 collected. 17:06 Femur Left XRAY In Process Unspecified. EDMS Administered Medications: 14:02 Drug: Hydrocodone-Acetaminophen PO (7.5 mg-325 mg) 1 tabs PO once Route: PO; eh3 14:02 Drug: Ketorolac IM 30 mg IM once Route: IM; Site: left ventrogluteal; eh3 14:07 Drug: Alum-Mag Hydroxide-Simeth PO Suspension (200 mg-200 mg-20 mg/5 mL) 30 ml PO once eh3 Route: PO; 16:30 Drug: morphine IVP or IV 4 mg IVP once over 4 mins Route: IVP; Infused Over: 4 mins; eh3 Site: left forearm; 16:30 Drug: Ondansetron IVP 4 mg IVP once; over 2 minutes Route: IVP; Site: left forearm; eh3 17:26 Drug: Potassium PO Effervescent Tablet 50 mEq PO once; dissolve in 4 ounces of water or eh3 juice Route: PO; 17:26 Drug: NS 0.9% IV 1000 ml IV at 75 ml/hr continuous Route: IV; Rate: 75 ml/hr; Site: eh3 left forearm; Outcome: 16:07 Decision to Hospitalize by Provider. diane 02/17 00:22 Patient left the ED. jb4 Signatures: Dispatcher [employer] EDMS Cami Anderson, ACID PATROLLER-C ACID PATROLLER-Nigel Cherry RN RN jb4 Tru Stevens, RN RN ll1 Haven Flowers, WALI RN 3 Corrections: (The following items were deleted from the chart) 02/16 13:33 13:18 BP 157 / 73; Pulse 87bpm; Resp 18bpm; Pulse Ox 95% RA; Temp 99.2F Oral; eh3 eh3 13:39 13:18 BP 157 / 73; Pulse 87bpm; Resp 18bpm; Pulse Ox 95% RA; Temp 99.2F Oral; eh3 eh3 15:49 14:41 Reassessment: Daughter Cristal called and pt provided verbal consent to share 3 PMI. Daughter states she thinks pt is in the early stages of dementia because she is forgetful and acting strange for the past 2-3 months. Daughter reports pt is having visual hallucinations at home, a couple nights ago she saw a dog that wasn't there and talking to people who were not there. Daughter concerned if pt is discharged to home and daughter cannot move the pt. States pt refuses to try to move herself, is urinating in the bed. dye house worker consultation requested eh3
[2023-02-16 16:44] LABS: Absolute Lymphocytes (CBC) 0.6 K/uL (0.7-4.9); Hematocrit 29.5 % (36.0-45.0); Lymphocytes % 6.9 % (15.3-44.8); MCV 85.3 fL (80-100); MPV 7.8 fL (7.6-11.3); Platelets 230 thou/uL (152-406); RBC Red Blood Cell Count 3.46 M/uL (3.86-4.86)
[2023-02-16] MEDS ORDERED: ONDANSETRON 4 MG/2 ML VIAL ONE (16:56)
[2023-02-16] MEDS ORDERED: MORPHINE 4 MG/ML SYR ONE ×2 (16:56→20:35)
[2023-02-16 17:05] LABS: Potassium 2.7 mEq/L (3.5-5.1)
--- NOTE | 2023-02-16 17:37 | RAD REPORT ---
EXAM DESCRIPTION: RAD - Femur Left - 02/16/2023 5:04 pm CLINICAL HISTORY: PAIN COMPARISON: No comparisons FINDINGS: Subcapital fracture is seen of the proximal left femur. Mild varus angulation. The bones a re moderately demineralized. No dislocation.
[2023-02-16] MEDS ORDERED: POTASSIUM 25 MEQ EFFERV TAB ONE (17:39)
[2023-02-16] MEDS ORDERED: NA CHLORIDE 0.9% 1,000 ML ONE (17:39)
[2023-02-16] MEDS ORDERED: ACETAMINOPHEN 500 MG TAB PO PRN (17:56)
[2023-02-16] MEDS: NA CHLORIDE 0.9% 1,000 ML IV SCH (18:00)
--- NOTE | 2023-02-16 18:05 | P.HP ---
Certification for Inpatient Patient History Date of Service: 02/16/23 Reason for admission: Fracture left femur History of Present Illness: Ms. Hartley, 67-year-old female with a history of type 2 diabetes NIDDM, hypertension was brought to the emergency room with complaints of fall injury. Patient fell from an upright position, walking and slipped. Patient had this fall on 02/15/23. Patient's report she slipped and fell into her right side. Patient was seen yesterday and discharged home without acute findings. Patient came back today because she has been unable to get out of the bed due to pain. Patient reports pain on both hips, right knee, and neck. Patient denies any more falls. Patient denies chest pain, palpitation, shortness of breath. ED course Vital signs blood pressure 157/73, heart rate 87, pulse 18, temperature 99.2, pulse ox 95%. Initial laboratory findings significant for hypokalemia potassium 2.7, hyponatremia sodium 128, low hemoglobin 10.4, hematocrit 29.5 femur x-ray left close subcapital fracture of the proximal left femur, mild varus angulation no dislocation. Patient is admitted with a diagnosis of capital fracture of left femur. - Past Medical/Surgical History Diabetic: No -: Gastritis / Esophagitis -: s/p lap band -: CAD s/p PCI -: h/o alcohol abuse, with ?liver cirrhosis -: chronic intermittent diarrhea -: CVA vs TIA -: COPD (mild) -: s/p PCI (~2019) -: cholecystectomy -: Appendectomy -: Lap-Band surgery -: EGD/C-scope (early 2022) Psychosocial/ Personal History: lives with daughter, recently moved to area - Family History Father -: Heart disease, Hypertension Mother -: Heart disease, Hypertension - Social History Alcohol use: No CD- Drugs: No Caffeine use: Yes <Bina Alarcon - Last Filed: 02/16/23 18:09> Date of Service: 02/16/23 <Alessandra Ryder - Last Filed: 02/16/23 18:37> Allergies nifedipine [From Procardia] Allergy (Mild, Verified 11/27/22 11:23) UNKNOWN Home Medications: Metoprolol Tartrate [Lopressor*] 25 mg PO BID 6AM 6PM #60 tab 12/02/22 Pantoprazole [Protonix Tab] 40 mg PO BID #60 tab 12/02/22 Potassium Oral Tab [Klor-Con 10 mEq Tab*] 20 meq PO BID #30 tab 12/02/22 Urea [Ure-Na] 30 gm PO DAILY #30 packet 12/02/22 Sucralfate [Carafate*] 1 gm PO ACHS #30 tab 12/05/22 Review of Systems 10-point ROS is otherwise unremarkable <Bina Alarcon - Last Filed: 02/16/23 18:09> Physical Examination - Physical Exam General: Alert, In no apparent distress HEENT: Atraumatic, Normocephalic Neck: Supple, 2+ carotid pulse no bruit Respiratory: Clear to auscultation bilaterally, Normal air movement Cardiovascular: No edema, Normal pulses Capillary refill: <2 Seconds Gastrointestinal: Normal bowel sounds, Soft and benign Musculoskeletal: No clubbing, No swelling Integumentary: Other (Patient with pain on the left hip) Neurological: Normal speech, Normal tone, Normal affect - Studies Laboratory Data (last 24 hrs) 02/16/23 02/16/23 16:37 16:37 WBC 9.10 Hgb 10.4 L Hct 29.5 L Plt Count 230 Sodium 128 L Potassium 2.7 L BUN 9 Creatinine 0.72 Glucose 97 <Bina Alarcon - Last Filed: 02/16/23 18:09> - Studies Laboratory Data (last 24 hrs) 02/16/23 02/16/23 16:37 16:37 WBC 9.10 Hgb 10.4 L Hct 29.5 L Plt Count 230 Sodium 128 L Potassium 2.7 L BUN 9 Creatinine 0.72 Glucose 97 <Alessandra Ryder - Last Filed: 02/16/23 18:37> Assessment and Plan - Problems (Diagnosis) (1) Left femoral shaft fracture Current Visit: Yes Status: Acute Qualifiers: Encounter type: initial encounter (2) Hypertension Current Visit: Yes Status: Chronic Qualifiers: Hypertension type: primary hypertension Qualified Code(s): I10 - Essential (primary) hypertension (3) DM type 2 (diabetes mellitus, type 2) Current Visit: Yes Status: Chronic Qualifiers: 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 Patient fell from an upright position, walking and slipped. Patient had this fall on 02/15/23. * femur x-ray left close subcapital fracture of the proximal left femur, mild varus angulation no dislocation * Referred to Ortho surgeon Dr. Spring * Admitted the patient for further management * IV fluid normal saline 100 mL started, logistics * Hypokalemia potassium of 2.7-potassium 50 mEq p.o. was given in the ER, we will recheck the potassium in 4 hours and replete if * Hyponatremia sodium 128-normal saline normal per hour we will continue to monitor. Patient is alert oriented x3 at this time * DM-2: Controlled, will will do blood sugar management is in at bedtime with a low-dose sliding scale, hypoglycemic precaution * Hypertension is controlled, will continue to monitor continue the home medication and will restart as appropriate * Repeat hip x-rays were done as per Dr. Spring's request pending results. CODE STATUSfull code Diet n.p.o. at this time to possible surgical management ProphylaxisSCDs Discharge Plan: Home Plan to discharge in: 48 Hours - Advance Directives Does patient have a Living Will: No Does patient have a Durable POA for Healthcare: No - Code Status/Comfort Care Code Status Assessed: Yes (Full code) Code Status: Full Code Physician Review: Patient Assessed, Agree with Above Assessment and Plan Critical Care: No Time Spent Managing Pts Care (In Minutes): 55 (Minutes) <Bina Alarcon - Last Filed: 02/16/23 18:09> Physician Review Additional Text: Pt seen and examined. I agree with the note by the ARCHERY EQUIPMENT REPAIRER. Pt presents with left subcapital femur fracture s/p fall at home. She was discharged from the ER yesterday but the pain progressively worsened. The history is limited due to dementia. On admission, femur x-ray showed left close subcapital fracture of the proximal left femur, mild varus angulation no dislocation. Lab studies showed hyponatremia and hypokalemia. Patient is admitted with a diagnosis of capital fracture of left femur. A/P Left femur fracture. Consulted Ortho. Will continue prn pain med. Replace electrolytes and monitor H/H. Continue home meds for other chronic medical problems. Code: full. <Alessandra Ryder - Last Filed: 02/16/23 18:37>
[2023-02-16] MEDS ORDERED: D10W 250 ML BAG IV PRN (18:27)
[2023-02-16] MEDS ORDERED: GLUCAGON 1 MG/VIAL IM PRN (18:27)
[2023-02-16] MEDS ORDERED: ACETAMINOPHEN 500 MG TAB ONE (19:12)
[2023-02-16 19:40] VITALS: BMI 25.6
[2023-02-16] MEDS: MORPHINE 4 MG/ML SYR IV PRN (20:35)
[2023-02-16] MEDS: INSULIN REGULAR (HUMAN) 100 UNIT/ML SQ SCH (21:00)
[2023-02-16] MEDS ORDERED: INSULIN REGULAR (HUMAN) 100 UNIT/ML SQ SCH (21:00)
[2023-02-17] MEDS: MORPHINE 4 MG/ML SYR IV PRN ×3 (00:44→09:16)
[2023-02-17] MEDS: NA CHLORIDE 0.9% 1,000 ML IV SCH ×3 (00:56→21:17)
[2023-02-17 07:00] LABS: Absolute Lymphocytes (CBC) 0.8 K/uL (0.7-4.9); Hematocrit 30.2 % (36.0-45.0); Lymphocytes % 11.4 % (15.3-44.8); MCV 85.9 fL (80-100); Platelets 218 thou/uL (152-406); RBC Red Blood Cell Count 3.51 M/uL (3.86-4.86)
[2023-02-17 07:13] LABS: Magnesium 2.1 mg/dL (1.6-2.4); Phosphorus 1.7 mg/dL (2.5-4.9); Potassium 3.1 mEq/L (3.5-5.1)
[2023-02-17] MEDS: INSULIN REGULAR (HUMAN) 100 UNIT/ML SQ SCH ×4 (07:30→19:46)
[2023-02-17] MEDS ORDERED: POTASSIUM PHOS 22 MEQ in NA CHLORIDE 0.9% 250 ML IV ONE (09:00)
[2023-02-17] MEDS ORDERED: LIDOCAINE 1% MPF 5 ML VIAL ONE (10:01)
[2023-02-17] MEDS ORDERED: FENTANYL CITR 100 MCG/2 ML ONE ×2 (10:01→12:08)
[2023-02-17] MEDS ORDERED: propofoL 200 MG/20 ML VIAL IV ONE (10:01)
[2023-02-17] MEDS ORDERED: EPINEPHRINE 1 MG/ML VIAL ONE (10:01)
[2023-02-17] MEDS ORDERED: dexAMETHasone 10 MG/ML VIAL ONE (10:01)
[2023-02-17] MEDS ORDERED: propofoL 1,000 MG/100 ML VIAL IV ONE (10:01)
[2023-02-17] MEDS ORDERED: ROPLVACAINE HCL 20 ML ONE (10:02)
[2023-02-17] MEDS ORDERED: ROPIVACAINE HCL 20 ML ONE (10:02)
[2023-02-17] MEDS ORDERED: BUPIVACAINE 0.75% (PF) 2 ML SP ONE (10:12)
[2023-02-17] MEDS ORDERED: Ringers Lactate 1,000 ML IV ONE (10:19)
[2023-02-17] MEDS ORDERED: CEFAZOLIN SODIUM 2 GM/VIAL ONE (11:04)
[2023-02-17] MEDS ORDERED: TRANEXAMIC ACID 1,000 MG/10 ML VIAL IV ONE (11:05)
[2023-02-17] MEDS ORDERED: NS 0.9% VIAL 20 ML ONE (11:48)
[2023-02-17] MEDS ORDERED: Phenylephrine HCl 10 MG/ML 1 ML VIAL ONE (11:48)
[2023-02-17] MEDS ORDERED: NS 0.9% VIAL 10 ML ONE ×2 (11:52→12:25)
[2023-02-17] MEDS ORDERED: NA CHLORIDE 0.9% 1,000 ML ONE (13:13)
--- NOTE | 2023-02-17 13:17 | P.PN ---
Subjective Date of Service: 02/17/23 Chief Complaint: Fracture left femur Subjective: Improving, Doing well Patient is alert and oriented x 3 Patient is feeling better still have pain on pain medication as needed Vital signs are Discussed with the nursing staff, plan for surgery today by Dr. Spring <Bina Alarcon - Last Filed: 02/17/23 16:17> Date of Service: 02/17/23 <Alessandra Ryder - Last Filed: 02/17/23 17:32> Review of Systems 10-point ROS is otherwise unremarkable <Bina Alarcon - Last Filed: 02/17/23 16:17> Physical Examination - Vital Signs Temperature: 97.0 F Blood Pressure: 142/77 Pulse: 56 Respirations: 18 Pulse Ox (%): 92 - Physical Exam General: Alert, Oriented x3 HEENT: Atraumatic, Normocephalic Neck: Supple, 2+ carotid pulse no bruit Respiratory: Clear to auscultation bilaterally, Normal air movement Cardiovascular: No edema, Normal pulses Capillary refill: <2 Seconds Gastrointestinal: Normal bowel sounds, Soft and benign Musculoskeletal: No clubbing, No swelling, Other (Left hip pain) Integumentary: No rashes, No breakdown Neurological: Other Lymphatics: No axilla or inguinal lymphadenopathy - Studies Laboratory Data (last 24 hrs) 02/16/23 02/16/23 16:37 16:37 WBC 9.10 Hgb 10.4 L Hct 29.5 L Plt Count 230 Sodium 128 L Potassium 2.7 L BUN 9 Creatinine 0.72 Glucose 97 <Bina Alarcon - Last Filed: 02/17/23 16:17> Assessment And Plan - Current Problems (Diagnosis) (1) Left femoral shaft fracture Current Visit: Yes Status: Acute Qualifiers: Encounter type: initial encounter (2) Hypertension Current Visit: Yes Status: Chronic Qualifiers: Hypertension type: primary hypertension Qualified Code(s): I10 - Essential (primary) hypertension (3) DM type 2 (diabetes mellitus, type 2) Current Visit: Yes Status: Chronic Qualifiers: Diabetes mellitus care home insulin use: without terminal block assembler use Diabetes mellitus complication status: without complication Qualified Code(s): E11.9 - Type 2 diabetes mellitus without complications (4) Hypokalemia Current Visit: Yes Status: Acute (5) Hyponatremia Current Visit: Yes Status: Acute - Plan - Problems (Diagnosis) (1) Left femoral shaft fracture (2) Hypertension (3) DM type 2 (diabetes mellitus, type 2) (4) Hypokalemia (5) Hyponatremia * with complaints of fall injury. Patient fell from an upright position, walking and slipped. Patient had this fall on 02/15/23. * femur x-ray left close subcapital fracture of the proximal left femur, mild varus angulation no dislocation * For surgery today by Ortho surgeon Dr. Spring * Admitted the patient for further management * IV fluid normal saline 100 mL started, logistics * Hypokalemia potassium of 2.7-potassium 50 mEq p.o. was given in the ER, we will recheck the potassium in 4 hours and replete if * Hyponatremia sodium 128-normal saline normal per hour we will continue to monitor. Patient is alert oriented x3 at this time * DM-2: Controlled, will will do blood sugar management is in at bedtime with a low-dose sliding scale, hypoglycemic precaution * Hypertension is controlled, will continue to monitor continue the home medication and will restart as appropriate * Repeat hip x-rays were done as per Dr. Spring's request pending results. CODE STATUSfull code Diet n.p.o. at this time to possible surgical management ProphylaxisSCDs Discharge Plan: Home Plan to discharge in: 24 Hours - Code Status/Comfort Care Code Status Assessed: Yes (Full code) Code Status: Full Code Physician Review: Patient Assessed, Agree with Above Assessment and Plan Critical Care: No Time Spent Managing PTS Care (In Minutes): 35 (Minutes) <Bina Alarcon - Last Filed: 02/17/23 16:17> Physician Review Additional Text: 02/17/23 17:32 Pt seen and examined. I agree with the note by the IMAGE PROCESSING ENGINEER. Ortho will take pt to the OR for surgery. Continue prn pain med. <Alessandra Ryder - Last Filed: 02/17/23 17:32>
--- NOTE | 2023-02-17 13:35 | P.BOP ---
Preoperative diagnosis: left femoral neck fracture Postoperative diagnosis: same Primary procedure: left hip hemiarthroplasty Roll Forming Supervisor: NONE,NONE Estimated blood loss: 100 cc Specimen: left femoral head Anesthesia: Spinal Complications: None Drain(s): Urinary catheter Implants: Biomet Isaias 13 Echo fracture stem, 48 mm shell, 28x-6 mm head Fluids & blood products: per anesthesia record Transferred to: Recovery Room Condition: Good
[2023-02-17] MEDS ORDERED: DOCUSATE NA 100 MG CAP PO PRN (13:53)
[2023-02-17] MEDS ORDERED: ACETAMINOPHEN 325 MG TABLET PO PRN (13:53)
[2023-02-17] MEDS ORDERED: HYDROMORPHONE HCL 1 MG/ML INJ ONE (14:10)
[2023-02-17 14:43] LABS: Hematocrit 28.1 % (36.0-45.0)
--- NOTE | 2023-02-17 14:51 | P.OP ---
Preoperative diagnosis: left femoral neck fracture Postoperative diagnosis: same Primary procedure: left hip hemiarthroplasty Anesthesia: spinal Estimated blood loss: 100 cc Specimen: left femoral head Findings: see dictation Operative Technique: Indication For Procedure: Reina is a 67-year-old female who presented to the ER after sustaining a fall with subsequent pain and inability to bear weight. She had x-rays that demonstrated a left displaced femoral neck fracture. I discussed with the patient and daughter at length his diagnosis as well as treatment plan, risks and benefits associated with operative and nonoperative treatment. The patient is ambulatory and elected to proceed with operative treatment. Description Of Procedure: After informed consent was obtained, the patient was identified in the preoperative holding area. The left lower extremity was marked. The patient was then brought back to the operating room, underwent spinal anesthesia, and then transferred to the operating table in a supine fashion and then placed in the right lateral decubitus position. An axillary roll was placed and her extremities were well padded. The left lower extremity was then prepped and draped in usual sterile fashion. A time-out was initiated. The correct patient and procedure were confirmed and identified. The patient did receive her preoperative prophylactic antibiotics. Approximately a 15 cm curvilinear incision was placed centered over the greater trochanter. This was a posterior approach to the hip. Dissection was then taken down to the tensor fascia khalida, which was split in line with the incision. Charnley retractors were placed. Blunt dissection was then taken down to the short external rotators. The piriformis was tagged with a #5 Ethibond and elevated off the proximal femur. A T-shaped capsulotomy was then performed, and the capsule was then tagged with #5 Ethibond sutures. A corkscrew was then used to remove the femoral head and a size 48 shell was selected. It was placed within the acetabulum and there was good overall fit. Next, the femoral neck was cleaned and a cookie cutter was placed, followed by a canal finder and a lateralizer. The proximal femur was then reamed up to a size 15 mm reamer and broached up to a size 15 mm broach. We elected to proceed with the 13 mm implant. 15 mm broach was replaced and the hip was reduced, and a -6 mm head was selected. There was good overall leg length and stability of the hip. Trial implants were then removed. The wound and femoral canal were then irrigated thoroughly with normal saline using pulse lavage. A bone plug was placed to the depth of 170 mm. Cement was then placed down the femoral canal using a cement gun. The implant was then placed and held into position until the cement hardened. Again, the hip was trialed using a -6 head and a 48 mm shell. There was good overall leg length and stability. The final implants were then placed using a 28 x -6 mm head and a 48 mm shell. The hip was then reduced. There was good overall stability, range of motion, and leg length. The wound was again irrigated thoroughly with normal saline using pulse lavage. Capsule was then approximated using #5 Ethibond as well as #1 Vicryl. External rotators were repaired to the greater trochanter using a drill and suture passers over a bone bridge. Tensor fascia khalida was then approximated usin g a #1 Vicryl. Deep fascia was approximated using 0 Vicryl. Subcutaneous tissue was approximated using a 2-0 Vicryl. Skin was approximated using karyna. Sterile dressing was then placed. The patient was placed in the abduction pillow, awakened and transferred to PACU in stable condition. Postoperative Plan: The patient will be weightbearing as tolerated on the left lower extremity. Physical Therapy will be consulted to aid with mobilization. Posterior precautions will be attempted. Complications: None Drain(s): Urinary catheter Implants: Biomet Isaias 13 Echo fx stem, 28x-6 mm head, 48 mm shell Fluids & blood products: per anesthesia record Transferred to: Recovery Room Condition: Good
--- NOTE | 2023-02-17 15:32 | CON ---
Date of Consultation: 02/17/2023 Reason For Consultation: Left hip pain. History Of Present Illness: Ms. Hartley is a 67-year-old female with history of diabetes and hypertension, who was brought into the emergency room on February 15 secondary to pain. The patient had x-rays of her right hip at that time, which were negative for any fracture. The patient was discharged. The patient continued to have pain at the left hip. She was brought back to the emergency room on February 16 and had pelvis x-rays as well as left femur x-rays, which demonstrated displaced left femoral neck fracture. The patient has not been able to mobilize secondary to the pain in her hip. Review of Systems: As above, otherwise negative. Past Medical History: Includes coronary artery disease, history of alcohol abuse, COPD, diabetes, and hypertension. Past Surgical History: Includes lap band surgery, appendectomy, cholecystectomy, and left elbow ORIF. Social History: Lives with her daughter and recently moved to the area. Allergies: TO PROCARDIA. Home Medications: Include metoprolol, Protonix, potassium and Carafate. Physical Examination: General: No apparent distress. HEENT: Normocephalic, atraumatic. Neck: Supple. Cardiovascular: Brisk cap refill to all digits. Chest: Nonlabored breathing. Abdomen: Nondistended. Psychiatric: Responsive to exam. Musculoskeletal: Left lower extremity pain with range of motion of the left hip. Tenderness to palpation of the left hip. No tenderness over the tibia or foot or ankle. Neurovascularly intact distally. Right lower extremity functional range of motion without pain. No gross deformities. No obvious dislocations. Bilateral upper extremities, functional range of motion without pain. No gross deformities. No obvious dislocations. Diagnostic Studies: X-rays of the left hip demonstrate a displaced left femoral neck fracture. Assessment And Plan: Ms. Hartley is a 67-year-old female with a left displaced femoral neck fracture. I discussed with the patient and her daughter at length the diagnosis as well as treatment plan. Given the displaced femoral neck fracture, we will proceed with left hip hemiarthroplasty. Risks and benefits associated with the procedure were discussed with the patient and her daughter at length and they expressed understanding. We will proceed with surgery later today. Physical Therapy will be consulted postoperatively to aid with mobilization. STEPHENIE/MARCELL Voice ID: [id number] Report ID: [id number] MTDD
[2023-02-17] MEDS ORDERED: ONDANSETRON 4 MG/2 ML VIAL IV PRN (16:32)
--- NOTE | 2023-02-17 16:32 | RAD REPORT ---
EXAM DESCRIPTION: RAD - Hip Left 2 View - 02/17/2023 2:47 pm CLINICAL HISTORY: postop COMPARISON: No comparisons TECHNIQUE: Left hip, 2 views. FINDINGS: A left hip prothesis has been placed. Hardware is in expected location. Skin karyna are n oted. IMPRESSION: Postoperative left hip with no unexpected finding.
[2023-02-17] MEDS: CEFAZOLIN SODIUM 2 GM in NA CHLORIDE 0.9% 100 ML IVPB SCH ×2 (16:41→23:39)
[2023-02-17] MEDS: HYDROCODONE/APAP 7.5/325 MG TAB PO PRN ×2 (16:55→23:44)
[2023-02-17] MEDS: ALBUTEROL 2.5 MG/3 ML NEB SOL NEB PRN (20:10)
[2023-02-17] MEDS: TRAMADOL HCL 50 MG TAB PO PRN (20:20)
[2023-02-18] MEDS ORDERED: POTASSIUM CL SA 10 MEQ TAB PO ONE ×2 (02:25→11:30)
[2023-02-18] MEDS: HYDROCODONE/APAP 7.5/325 MG TAB PO PRN ×3 (03:09→19:53)
[2023-02-18] MEDS: HYDRALAZINE HCL 20 MG/ML VIAL IV PRN ×2 (04:20→19:53)
[2023-02-18] MEDS: MAGNES/ALUMIN/SIMET 30ML UCUP PO PRN (04:20)
[2023-02-18] MEDS: CEFAZOLIN SODIUM 2 GM in NA CHLORIDE 0.9% 100 ML IVPB SCH (05:38)
[2023-02-18] MEDS: INSULIN REGULAR (HUMAN) 100 UNIT/ML SQ SCH ×4 (07:30→19:50)
[2023-02-18] MEDS: ENOXAPARIN 40 MG/0.4 ML SQ SCH (07:57)
[2023-02-18] MEDS: NA CHLORIDE 0.9% 1,000 ML IV SCH ×3 (09:45→21:14)
[2023-02-18 10:43] LABS: Absolute Lymphocytes (CBC) 0.5 K/uL (0.7-4.9); Hematocrit 24.5 % (36.0-45.0); Lymphocytes % 5.7 % (15.3-44.8); MPV 7.8 fL (7.6-11.3); Platelets 198 thou/uL (152-406); RBC Red Blood Cell Count 2.89 M/uL (3.86-4.86)
[2023-02-18 11:02] LABS: Magnesium 1.8 mg/dL (1.6-2.4); Phosphorus 1.6 mg/dL (2.5-4.9); Potassium 3.5 mEq/L (3.5-5.1)
[2023-02-18] MEDS: POTASS/SODIUM PHOSPHATE 1 PKT POWD.PACK PO SCH ×3 (11:19→14:47)
[2023-02-18] MEDS ORDERED: MAGNESIUM SULFATE 1 gm IVPB 1 GM/100 ML BAG IV ONE (11:30)
--- NOTE | 2023-02-18 14:32 | P.PN ---
Subjective Date of Service: 02/18/23 Chief Complaint: Fracture left femur Subjective: No C/O voiced, Doing well Patient is alert and oriented x 3 Patient is feeling better still have pain on pain medication as needed Vital signs are stable Discussed with the nursing staff, Patient had left hamate arthroplasty on 02/17/[address] Spring <Bina Alarcon - Last Filed: 02/18/23 14:27> Date of Service: 02/19/23 <Alessandra Ryder - Last Filed: 02/19/23 07:26> Review of Systems 10-point ROS is otherwise unremarkable <Bina Alarcon - Last Filed: 02/18/23 14:27> Physical Examination - Vital Signs Temperature: 97.2 F Blood Pressure: 125/66 Pulse: 76 Respirations: 17 Pulse Ox (%): 99 - Physical Exam General: Alert, Oriented x3 HEENT: Atraumatic, Normocephalic Neck: Supple, 2+ carotid pulse no bruit Respiratory: Clear to auscultation bilaterally, Normal air movement Cardiovascular: No edema, Normal pulses Capillary refill: <2 Seconds Gastrointestinal: Normal bowel sounds, Soft and benign Musculoskeletal: No clubbing, No swelling, Other (Left hip surgical dressing dry and intact) Integumentary: No rashes, Other (Left hip surgical incision) Neurological: Normal speech, Normal tone, Normal affect <Bina Alarcon - Last Filed: 02/18/23 14:27> Assessment And Plan - Current Problems (Diagnosis) (1) Left femoral shaft fracture Current Visit: Yes Status: Acute Qualifiers: Encounter type: initial encounter (2) Hypertension Current Visit: Yes Status: Chronic Qualifiers: Hypertension type: primary hypertension Qualified Code(s): I10 - Essential (primary) hypertension (3) DM type 2 (diabetes mellitus, type 2) Current Visit: Yes Status: Chronic Qualifiers: Diabetes mellitus intermediate card tender insulin use: without snf use Diabetes mellitus complication status: without complication Qualified Code(s): E11.9 - Type 2 diabetes mellitus without complications (4) Hypokalemia Current Visit: Yes Status: Acute (5) Hyponatremia Current Visit: Yes Status: Acute - Plan - Problems (Diagnosis) (1) Left femoral shaft fracture (2) Hypertension (3) DM type 2 (diabetes mellitus, type 2) (4) Hypokalemia (5) Hyponatremia * with complaints of fall injury. Patient fell from an upright position, walking and slipped. Patient had this fall on 02/15/23 * S/P left hemiarthoplast on 02/17/23 Dr. Spring. * femur x-ray left close subcapital fracture of the proximal left femur, mild varus angulation no dislocation * For surgery today by Ortho surgeon Dr. Spring * Admitted the patient for further management * IV fluid normal saline 100 mL started, logistics * Hypokalemia potassium of 2.7-potassium 50 mEq p.o. was given in the ER, we will recheck the potassium in 4 hours and replete if * Hyponatremia sodium 128-normal saline normal per hour we will continue to monitor. Patient is alert oriented x3 at this time * DM-2: Controlled, will will do blood sugar management is in at bedtime with a low-dose sliding scale, hypoglycemic precaution * Hypertension is controlled, will continue to monitor continue the home medication and will restart as appropriate * Repeat hip x-rays were done as per 's request pending results. CODE STATUSfull code Diet n.p.o. at this time to possible surgical management ProphylaxisSCDs Discharge Plan: Home Plan to discharge in: 24 Hours - Code Status/Comfort Care Code Status Assessed: Yes (full code) Code Status: Full Code Physician Review: Patient Assessed, Agree with Above Assessment and Plan Critical Care: No Time Spent Managing PTS Care (In Minutes): 35 (minutes) <Bina Alarcon - Last Filed: 02/18/23 14:27> Physician Review Additional Text: 02/19/23 07:25 Pt seen and examined. I agree with the note by the OUTBOUND TELEMARKETING REPRESENTATIVE. Ortho did left hip arthroplasty. Will continue prn pain med and PT. <Alessandra Ryder - Last Filed: 02/19/23 07:26>
[2023-02-18] MEDS: TRAMADOL HCL 50 MG TAB PO PRN ×2 (16:40→23:09)
[2023-02-18] MEDS: LORAZEPAM 0.5 MG TABLET PO PRN (21:08)
[2023-02-19] MEDS: NA CHLORIDE 0.9% 1,000 ML IV SCH ×4 (04:57→21:03)
[2023-02-19] MEDS: ENOXAPARIN 40 MG/0.4 ML SQ SCH (07:29)
[2023-02-19] MEDS: INSULIN REGULAR (HUMAN) 100 UNIT/ML SQ SCH ×4 (07:30→21:00)
[2023-02-19 08:35] LABS: Absolute Lymphocytes (CBC) 0.9 K/uL (0.7-4.9); Hematocrit 24.8 % (36.0-45.0); Lymphocytes % 14.7 % (15.3-44.8); MCV 85.9 fL (80-100); MPV 7.7 fL (7.6-11.3); Platelets 221 thou/uL (152-406); RBC Red Blood Cell Count 2.88 M/uL (3.86-4.86)
[2023-02-19 08:53] LABS: Magnesium 1.9 mg/dL (1.6-2.4); Phosphorus 2.1 mg/dL (2.5-4.9); Potassium 3.5 mEq/L (3.5-5.1)
[2023-02-19] MEDS: HYDROCODONE/APAP 7.5/325 MG TAB PO PRN ×2 (09:47→14:59)
--- NOTE | 2023-02-19 10:18 | P.PN ---
Subjective Date of Service: 02/19/23 Chief Complaint: Fracture left femur Pt is resting comfortably in bed. She is feeling better this am. Pt is waiting for PT eval. No complaints. Review of Systems 10-point ROS is otherwise unremarkable General: Unremarkable Eyes: Unremarkable ENT: Unremarkable Respiratory: Unremarkable Cardiovascular: Unremarkable Gastrointestinal: Unremarkable Genitourinary: Unremarkable Musculoskeletal: Leg Pain Integumentary: Unremarkable Neurological: Unremarkable Lymphatics: Unremarkable Physical Examination - Vital Signs Temperature: 98.2 F Blood Pressure: 161/84 Pulse: 93 Respirations: 15 Pulse Ox (%): 95 - Physical Exam General: Alert, In no apparent distress, Oriented x3 HEENT: Atraumatic, Normocephalic, PERRLA Neck: Supple, 2+ carotid pulse no bruit Respiratory: Clear to auscultation bilaterally, Normal air movement Cardiovascular: No edema, Normal pulses, Regular rate/rhythm, Normal S1 S2 Capillary refill: <2 Seconds Gastrointestinal: Normal bowel sounds, Soft and benign, Non-distended Musculoskeletal: No clubbing, No swelling, Tenderness (left hip pain) Integumentary: No rashes, No breakdown Neurological: Normal gait, Normal speech, Normal strength at 5/5 x4 extr Lymphatics: No axilla or inguinal lymphadenopathy Assessment And Plan - Plan Left femoral shaft fracture: Ortho is following. POD#1. Will continue prn pain med and physical therapy Hypokalemia: Will replace electrolytes. K is 3.5. Hyponatremia: NA is 133. Will continue IVF and trend Na level. Anemia: Hgb is 8.3. Will monitor H/H. Htn: Continue home meds. DM II: Continue accuhek, SSI and ADA diet. DVT ppx: SCD Code: full. Physician Review: Patient Assessed, Agree with Above Assessment and Plan
[2023-02-19] MEDS ORDERED: POTASS/SODIUM PHOSPHATE 1 PKT POWD.PACK PO ONE (11:00)
[2023-02-19] MEDS: HYDRALAZINE HCL 20 MG/ML VIAL IV PRN ×2 (11:35→23:32)
[2023-02-19] MEDS: MAGNES/ALUMIN/SIMET 30ML UCUP PO PRN (15:03)
[2023-02-19] MEDS: LORAZEPAM 0.5 MG TABLET PO PRN (23:33)
[2023-02-20] MEDS: NA CHLORIDE 0.9% 1,000 ML IV SCH ×2 (06:40→16:41)
[2023-02-20] MEDS: HYDROCODONE/APAP 7.5/325 MG TAB PO PRN (07:18)
[2023-02-20] MEDS: ENOXAPARIN 40 MG/0.4 ML SQ SCH (07:20)
[2023-02-20] MEDS: LORAZEPAM 0.5 MG TABLET PO PRN ×2 (07:25→19:48)
[2023-02-20] MEDS: INSULIN REGULAR (HUMAN) 100 UNIT/ML SQ SCH ×4 (07:30→21:00)
[2023-02-20] MEDS: MORPHINE 2 MG/ML SYR IV PRN ×3 (07:56→18:52)
[2023-02-20] MEDS: METOPROLOL XL 25 MG TAB PO SCH (08:00)
[2023-02-20] MEDS ORDERED: FENTANYL 25 MCG/PATCH TD SCH (09:00)
--- NOTE | 2023-02-20 09:38 | P.PN ---
Subjective Date of Service: 02/20/23 Chief Complaint: Fracture left femur Subjective: C/O voiced Patient is alert and oriented x 3 Patient is crying loudly with the pain on the left chest wall under the breast implant Vital stable EKG: No obvious ST segment changes Vital signs are stable Discussed with the nursing staff, Patient had left hamate arthroplasty on 02/17/[address] Spring Review of Systems 10-point ROS is otherwise unremarkable Physical Examination - Vital Signs Temperature: 99.0 F Blood Pressure: 146/97 Pulse: 138 Respirations: 20 Pulse Ox (%): 100 - Physical Exam General: Alert, Oriented x2 HEENT: Atraumatic, Normocephalic, PERRLA Neck: Supple, 2+ carotid pulse no bruit Respiratory: Clear to auscultation bilaterally, Normal air movement Cardiovascular: No edema, Normal pulses, Regular rate/rhythm Capillary refill: <2 Seconds Gastrointestinal: Normal bowel sounds, Soft and benign Musculoskeletal: No clubbing, No swelling Integumentary: No rashes, No breakdown Neurological: Normal speech, Normal tone, Normal affect, Other Assessment And Plan - Current Problems (Diagnosis) (1) Left femoral shaft fracture Current Visit: Yes Status: Acute Qualifiers: Encounter type: initial encounter (2) Hypertension Current Visit: Yes Status: Chronic Qualifiers: Hypertension type: primary hypertension Qualified Code(s): I10 - Essential (primary) hypertension (3) DM type 2 (diabetes mellitus, type 2) Current Visit: Yes Status: Chronic Qualifiers: Diabetes mellitus halfway insulin use: without equipment operator intermodal yard use Diabetes mellitus complication status: without complication Qualified Code(s): E11.9 - Type 2 diabetes mellitus without complications (4) Hypokalemia Current Visit: Yes Status: Acute (5) Hyponatremia Current Visit: Yes Status: Acute (6) Pain associated with left breast implant Current Visit: Yes Status: Acute (7) Hypokalemia Current Visit: Yes Status: Acute - Plan - Problems (Diagnosis) (1) Left femoral shaft fracture (2) Hypertension (3) DM type 2 (diabetes mellitus, type 2) (4) Hypokalemia (5) Hyponatremia (6) pain at the left breast implant site (6) hypokalemia * with complaints of fall injury. Patient fell from an upright position, walking and slipped. Patient had this fall on 02/15/23 * femur x-ray left close subcapital fracture of the proximal left femur, mild varus angulation no dislocation * S/P left hemiarthoplast on 02/17/23 Dr. Spring. * IV fluid normal saline 100 mL /hr * Hypokalemia potassium 2.8, repleted her potassium as per hospital protocol and we will continue to monitor * Hyponatremia improved * Patient is alert oriented x2 at this time * DM-2: Controlled, will will do blood sugar management is in at bedtime with a low-dose sliding scale, hypoglycemic precaution * Hypertension is controlled, will continue to monitor continue the home medication and will restart as appropriate * Patient had an episode of increased pain under the left breast implant site pain 10 out of 10, morphine 20 mg IV given * Twelve-lead EKG unremarkable * Will continue to monitor CODE STATUSfull code Diet n.p.o. at this time to possible surgical management ProphylaxisSCDs Discharge Plan: Home Plan to discharge in: 48 Hours - Code Status/Comfort Care Code Status Assessed: Yes Code Status: Full Code Physician Review: Patient Assessed, Agree with Above Assessment and Plan Critical Care: Yes Time Spent Managing PTS Care (In Minutes): 40 (minutes)
[2023-02-20 09:59] LABS: Phosphorus 2.5 mg/dL (2.5-4.9); Potassium 2.8 mEq/L (3.5-5.1)
[2023-02-20] MEDS: KCL 20 MEQ/100 mL IVPB 20 MEQ/100 ML BAG IV SCH ×3 (11:40→18:06)
[2023-02-20] MEDS: ALBUTEROL 2.5 MG/3 ML NEB SOL NEB PRN (20:07)
[2023-02-20] MEDS: MAGNES/ALUMIN/SIMET 30ML UCUP PO PRN (20:18)
--- NOTE | 2023-02-20 21:27 | P.PN ---
Subjective Date of Service: 02/20/23 Chief Complaint: s/p left hip donald Subjective: Working w/ PT pain controlled; some confusion overnight and patient removed her dressing which was replaced this AM Physical Examination - Vital Signs Temperature: 97.0 F Blood Pressure: 153/79 Pulse: 89 Respirations: 18 Pulse Ox (%): 98 - Physical Exam General: Alert, In no apparent distress Musculoskeletal: Other (LLE: dressing c/d/i; +EHL/FHL/GSC/TA; sensation grossly intact distally) Assessment And Plan - Plan Reina is a 67 yo female s/p left hip hemiarthroplasty POD #1 -PT to mobilize WBAT LLE with posterior hip precautions -lovenox for dvt prophylaxis -await IPR eval
[2023-02-21] MEDS: MORPHINE 2 MG/ML SYR IV PRN ×4 (02:02→15:23)
[2023-02-21] MEDS: NA CHLORIDE 0.9% 1,000 ML IV SCH ×4 (02:15→18:00)
[2023-02-21 02:57] LABS: Potassium 3.4 mEq/L (3.5-5.1)
[2023-02-21] MEDS: HYDROCODONE/APAP 7.5/325 MG TAB PO PRN ×2 (03:42→19:36)
[2023-02-21] MEDS: MAGNES/ALUMIN/SIMET 30ML UCUP PO PRN (03:47)
[2023-02-21] MEDS ORDERED: POTASSIUM CL SA 10 MEQ TAB PO ONE (04:00)
--- NOTE | 2023-02-21 07:12 | P.PN ---
Subjective Date of Service: 02/22/23 Chief Complaint: s/p left hip donald Subjective: No C/O voiced, Improving - Physical Exam General: Alert, In no apparent distress HEENT: Atraumatic, Normocephalic Neck: Supple, 2+ carotid pulse no bruit Respiratory: Clear to auscultation bilaterally, Normal air movement Cardiovascular: No edema, Normal pulses Capillary refill: <2 Seconds Gastrointestinal: Normal bowel sounds, Soft and benign Musculoskeletal: No clubbing, No swelling Integumentary: Other (Patient with pain on the left hip) Neurological: Normal speech, Normal tone, Normal affect Review of Systems per HPI Physical Examination - Vital Signs Temperature: 7.2 F Blood Pressure: 161/90 Pulse: 87 Respirations: 16 Pulse Ox (%): 96 Assessment And Plan - Plan - Current Problems (Diagnosis) (1) Left femoral shaft fracture Current Visit: Yes Status: Acute Qualifiers: Encounter type: initial encounter with complaints of fall injury. Patient fell from an upright position, walking and slipped. Patient had this fall on 02/15/23 femur x-ray left close subcapital fracture of the proximal left femur, mild varus angulation no dislocation S/P left hemiarthoplast on 02/17/23 Dr. Spring. PT consult (2) Hypertension Current Visit: Yes Status: Chronic Qualifiers: Hypertension type: primary hypertension Qualified Code(s): I10 - Essential (primary) hypertension Hypertension is controlled, will continue to monitor continue the home medication and will restart as appropriate (3) DM type 2 (diabetes mellitus, type 2) Current Visit: Yes Status: Chronic Qualifiers: Diabetes mellitus prison insulin use: without termite technician use Diabetes mellitus complication status: without complication Qualified Code(s): E11.9 - Type 2 diabetes mellitus without complications DM-2: Controlled, will will do blood sugar management is in at bedtime with a low-dose sliding scale, hypoglycemic precaution (4) Hypokalemia Current Visit: Yes Status: Acute Hypokalemia potassium 2.8, repleted her potassium as per hospital protocol and we will continue to monitor (5) Hyponatremia Current Visit: Yes Status: Acute IV fluid normal saline 100 mL /hr (6) Pain associated with left breast implant Current Visit: Yes Status: Acute Patient had an episode of increased pain under the left breast implant site pain 10 out of 10, morphine 20 mg IV given Twelve-lead EKG unremarkable CODE STATUSfull code Diet n.p.o. at this time to possible surgical management ProphylaxisLovenox Discharge Plan: Other (Inpatient rehab) - Code Status/Comfort Care Code Status: Full Code Physician Review: Patient Assessed, Agree with Above Assessment and Plan Critical Care: No Time Spent Managing PTS Care (In Minutes): 35
--- NOTE | 2023-02-21 07:20 | P.DS ---
Admission Date: 02/16/23 Discharge Date: 02/21/23 Disposition: TRANSFER TO INPATIENT REHAB Discharge Condition: FAIR Reason for Admission: s/p left hip donald Brief History of Present Illness: Ms. Hartley, 67-year-old female with a history of type 2 diabetes NIDDM, hypertension was brought to the emergency room with complaints of fall injury. Patient fell from an upright position, walking and slipped. Patient had this fall on 02/15/23. Patient's report she slipped and fell into her right side. Patient was seen yesterday and discharged home without acute findings. Patient came back today because she has been unable to get out of the bed due to pain. Patient reports pain on both hips, right knee, and neck. Patient denies any more falls. Patient denies chest pain, palpitation, shortness of breath. ED course Vital signs blood pressure 157/73, heart rate 87, pulse 18, temperature 99.2, pulse ox 95%. Initial laboratory findings significant for hypokalemia potassium 2.7, hyponatremia sodium 128, low hemoglobin 10.4, hemato crit 29.5 femur x-ray left close subcapital fracture of the proximal left femur, mild varus angulation no dislocation. Patient is admitted with a diagnosis of capital fracture of left femur. - Physical Exam General: Alert, In no apparent distress HEENT: Atraumatic, Normocephalic Neck: Supple, 2+ carotid pulse no bruit Respiratory: Clear to auscultation bilaterally, Normal air movement Cardiovascular: No edema, Normal pulses Capillary refill: <2 Seconds Gastrointestinal: Normal bowel sounds, Soft and benign Musculoskeletal: No clubbing, No swelling Integumentary: Other (Patient with pain on the left hip) Neurological: Normal speech, Normal tone, Normal affect Hospital Course: - Current Problems (Diagnosis) (1) Left femoral shaft fracture Current Visit: Yes Status: Acute Qualifiers: Encounter type: initial encounter with complaints of fall injury. Patient fell from an upright position, walking and slipped. Patient had this fall on 02/15/23 femur x-ray left close subcapital fracture of the proximal left femur, mild varus angulation no dislocation S/P left hemiarthoplast on 02/17/23 Dr. Spring. PT consult, OT consult plan to discharge to acute inpatient rehab (2) Hypertension Current Visit: Yes Status: Chronic Qualifiers: Hypertension type: primary hypertension Qualified Code(s): I10 - Essential (primary) hypertension Hypertension is controlled, will continue to monitor continue the home medication and will restart as appropriate (3) DM type 2 (diabetes mellitus, type 2) Current Visit: Yes Status: Chronic Qualifiers: Diabetes mellitus latin dancer insulin use: without mcc use Diabetes mellitus complication status: without complication Qualified Code(s): E11.9 - Type 2 diabetes mellitus without complications DM-2: Controlled, will will do blood sugar management is in at bedtime with a low-dose sliding scale, hypoglycemic precaution (4) Hypokalemia Current Visit: Yes Status: Acute Hypokalemia potassium 2.8, repleted her potassium as per hospital protocol and we will continue to monitor (5) Hyponatremia Current Visit: Yes Status: Acute IV fluid normal saline 100 mL /hr (6) Pain associated with left breast implant Current Visit: Yes Status: Acute Patient had an episode of increased pain under the left breast implant site pain 10 out of 10, morphine 20 mg IV given Twelve-lead EKG unremarkable CODE STATUSfull code Diet diabetic ProphylaxisSCDs Vital Signs/Physical Exam: Temp Pulse Resp BP Pulse Ox 7.2 F L 87 16 161/90 H 96 02/21/23 07:16 02/21/23 07:16 02/21/23 07:16 02/21/23 07:16 02/21/23 07:16 Laboratory Data at Discharge: WBC 6.40 thou/uL (4.3-10.9) 02/19/23 08:20 Hgb 8.3 g/dL (12.0-15.0) L 02/19/23 08:20 Hct 24.8 % (36.0-45.0) L 02/19/23 08:20 Plt Count 221 thou/uL (152-406) 02/19/23 08:20 Sodium 134 mEq/L (136-145) L 02/21/23 02:03 Potassium 3.4 mEq/L (3.5-5.1) L D 02/21/23 02:03 BUN 6 mg/dL (7-18) L 02/21/23 02:03 Creatinine 0.47 mg/dL (0.55-1.02) L 02/21/23 02:03 Glucose 115 mg/dL (74-106) H 02/21/23 02:03 Phosphorus 2.5 mg/dL (2.5-4.9) 02/20/23 08:57 Magnesium 1.9 mg/dL (1.6-2.4) 02/19/23 08:20 Home Medications: Metoprolol Tartrate [Lopressor*] 25 mg PO BID 6AM 6PM #60 tab 12/02/22 Sucralfate [Carafate*] 1 gm PO ACHS #30 tab 12/05/22 Potassium Oral Tab [Klor-Con 10 mEq Tab*] 10 meq PO BID 02/18/23 Followup: NONE,NONE [Primary Care Provider] -
[2023-02-21] MEDS ORDERED: D50W 25 GM/50 ML SYRINGE IV PRN (07:23)
[2023-02-21] MEDS ORDERED: GLUCAGON 1 MG/VIAL IM PRN ×2 (07:23→17:32)
[2023-02-21] MEDS: INSULIN REGULAR (HUMAN) 100 UNIT/ML SQ SCH ×4 (07:30→20:46)
[2023-02-21] MEDS: METOPROLOL XL 25 MG TAB PO SCH (08:17)
[2023-02-21] MEDS: ENOXAPARIN 40 MG/0.4 ML SQ SCH (08:17)
[2023-02-21] MEDS: SUCRALFATE 1 GM TABLET PO SCH ×3 (11:30→19:38)
[2023-02-21] MEDS ORDERED: IPRATROPIUM BROM 0.5MG/2.5ML NEB PRN (13:00)
[2023-02-21] MEDS ORDERED: POTASSIUM 25 MEQ EFFERV TAB PO ONE (14:00)
[2023-02-21] MEDS ORDERED: D10W 250 ML BAG IV PRN (17:30)
[2023-02-21] MEDS ORDERED: ACETAMINOPHEN 325 MG TABLET PO PRN (17:30)
[2023-02-21] MEDS ORDERED: DOCUSATE NA 100 MG CAP PO PRN (17:31)
[2023-02-21] MEDS ORDERED: HYDRALAZINE HCL 20 MG/ML VIAL IV PRN (17:39)
[2023-02-21] MEDS: TRAMADOL HCL 50 MG TAB PO PRN (17:41)
[2023-02-21] MEDS: METOPROLOL TAR 25 MG TAB PO SCH (17:41)
[2023-02-21] MEDS ORDERED: ALBUTEROL 2.5 MG/3 ML NEB SOL NEB PRN (17:44)
[2023-02-21] MEDS ORDERED: TRAMADOL HCL 50 MG TAB PO PRN (17:44)
[2023-02-21] MEDS: POTASSIUM CL SA 10 MEQ TAB PO SCH (20:45)
[2023-02-21] MEDS ORDERED: POTASSIUM CL SA 10 MEQ TAB PO SCH (21:00)
[2023-02-21] MEDS: LORAZEPAM 0.5 MG TABLET PO PRN (21:05)
[2023-02-22] MEDS: MORPHINE 2 MG/ML SYR IV PRN ×4 (02:01→22:34)
[2023-02-22] MEDS: MAGNES/ALUMIN/SIMET 30ML UCUP PO PRN ×2 (03:03→22:33)
[2023-02-22] MEDS: NA CHLORIDE 0.9% 1,000 ML IV SCH ×2 (03:04→17:24)
[2023-02-22] MEDS: METOPROLOL TAR 25 MG TAB PO SCH ×2 (06:47→17:24)
[2023-02-22] MEDS: INSULIN REGULAR (HUMAN) 100 UNIT/ML SQ SCH ×4 (07:30→20:50)
[2023-02-22] MEDS: SUCRALFATE 1 GM TABLET PO SCH ×4 (08:52→20:49)
[2023-02-22] MEDS: POTASSIUM CL SA 10 MEQ TAB PO SCH ×2 (08:52→20:49)
[2023-02-22] MEDS: ENOXAPARIN 40 MG/0.4 ML SQ SCH (08:53)
[2023-02-22] MEDS: HYDROCODONE/APAP 7.5/325 MG TAB PO PRN ×2 (10:45→20:48)
--- NOTE | 2023-02-22 13:50 | EKG ---
Test Date: 2023-02-20 Test Time: 09:33:00 Software Development Advisor: ALBIN MEASUREMENT RESULTS: Intervals: Rate: 122 [place]: QRSD: 88 QT: 338 QTc: 481 [place]: P: OK: QRS: 48 T: 249 INTERPRETIVE STATEMENTS: Atrial fibrillation with rapid ventricular response T wave abnormality, consider inferior ischemia or digitalis effect T wave abnormality, consider anterolateral ischemia or digitalis effect Abnormal ECG Compared to ECG 02/20/2023 09:31:40 T-wave abnormality now present ST (T wave) deviation no longer present Possible ischemia still present Electronically Signed On 02-22-23 13:41:52 FISH HATCHERY MAN by David Irby
--- NOTE | 2023-02-22 13:50 | EKG ---
Test Date: 2023-02-20 Test Time: 09:31:40 Patient Clerical Assistant: ALBIN MEASUREMENT RESULTS: Intervals: Rate: 161 PA: QRSD: 90 QT: 314 QTc: 513 [place]: P: PA: QRS: 43 T: 253 INTERPRETIVE STATEMENTS: Atrial fibrillation with rapid ventricular response Low voltage QRS ST & T wave abnormality, consider inferior ischemia or digitalis effect ST & T wave abnormality, consider anterolateral ischemia or digitalis effect Abnormal ECG Compared to ECG 02/16/2023 16:11:11 Low QRS voltage now present ST (T wave) deviation now present Sinus rhythm no longer present Atrial premature complex(es) no longer present T-wave abnormality no longer present Prolonged QT interval no longer present Possible ischemia still present Electronically Signed On 02-22-23 13:41:54 FAMILY LIFE COUNSELOR by David Irby
--- NOTE | 2023-02-22 14:07 | EKG ---
Test Date: 2023-02-16 Test Time: 16:11:11 Corporate Planner: BOBBY MEASUREMENT RESULTS: Intervals: Rate: 77 MA: 148 QRSD: 96 QT: 480 QTc: 543 [place]: P: 48 MA: 148 QRS: 56 T: 223 INTERPRETIVE STATEMENTS: Sinus rhythm with premature supraventricular complexes Marked T wave abnormality, consider anterolateral ischemia Prolonged QT Abnormal ECG Compared to ECG 02/04/2023 10:20:43 Atrial premature complex(es) now present T-wave abnormality now present Possible ischemia now present Prolonged QT interval now present Sinus tachycardia no longer present Atrial abnormality no longer present Myocardial infarct finding no longer present Electronically Signed On 02-22-23 13:47:21 LEAN MANUFACTURING SPECIALIST by David Irby
--- NOTE | 2023-02-22 14:17 | P.PN ---
Subjective Date of Service: 02/23/23 Chief Complaint: s/p left hip donald pain controlled wth prn meds, ambulating with therapy - Physical Exam General: Alert, In no apparent distress HEENT: Atraumatic, Normocephalic Neck: Supple, 2+ carotid pulse no bruit Respiratory: Clear to auscultation bilaterally, Normal air movement Cardiovascular: No edema, Normal pulses Capillary refill: <2 Seconds Gastrointestinal: Normal bowel sounds, Soft and benign Musculoskeletal: No clubbing, No swelling Integumentary: Other (Patient with pain on the left hip) Neurological: Normal speech, Normal tone, Normal affect Review of Systems per HPI Physical Examination - Vital Signs Temperature: 96.6 F Blood Pressure: 145/68 Pulse: 73 Respirations: 17 Pulse Ox (%): 96 Assessment And Plan - Plan - Current Problems (Diagnosis) (1) Left femoral shaft fracture Current Visit: Yes Status: Acute Qualifiers: Encounter type: initial encounter with complaints of fall injury. Patient fell from an upright position, walking and slipped. Patient had this fall on 02/15/23 femur x-ray left close subcapital fracture of the proximal left femur, mild varus angulation no dislocation S/P left hemiarthoplast on 02/17/23 Dr. Spring. PT consult, fall precautions Plan to DC SNF for rehab, [facility] dc'ed, up to [facility] for BRP DC pending SNF prior auth (2) Hypertension Current Visit: Yes Status: Chronic Qualifiers: Hypertension type: primary hypertension Qualified Code(s): I10 - Essential (primary) hypertension Hypertension is controlled, will continue to monitor continue the home medication and will restart as appropriate (3) DM type 2 (diabetes mellitus, type 2) Current Visit: Yes Status: Chronic Qualifiers: Diabetes mellitus senior care insulin use: without senior care use Diabetes mellitus complication status: without complication Qualified Code(s): E11.9 - Type 2 diabetes mellitus without complications DM-2: Controlled, will will do blood sugar management is in at bedtime with a low-dose sliding scale, hypoglycemic precaution (4) Hypokalemia Current Visit: Yes Status: Acute Hypokalemia potassium 2.8, repleted her potassium as per hospital protocol and we will continue to monitor repeat K 3.4, replete prn, daily bmp, mag (5) Hyponatremia Current Visit: Yes Status: Acute IV fluid normal saline 100 mL /hr (6) Pain associated with left breast implant Current Visit: Yes Status: Acute Patient had an episode of increased pain under the left breast implant site pain 10 out of 10, morphine 20 mg IV given Twelve-lead EKG unremarkable CODE STATUSfull code Diet n.p.o. at this time to possible surgical management ProphylaxisLovenox Discharge Plan: Correction - Code Status/Comfort Care Code Status: Full Code Physician Review: Patient Assessed, Agree with Above Assessment and Plan Critical Care: No Time Spent Managing PTS Care (In Minutes): 35
[2023-02-22] MEDS: LORAZEPAM 0.5 MG TABLET PO PRN (20:49)
[2023-02-23] MEDS: MAGNES/ALUMIN/SIMET 30ML UCUP PO PRN (03:38)
[2023-02-23] MEDS: MORPHINE 2 MG/ML SYR IV PRN ×4 (03:38→22:21)
[2023-02-23] MEDS: NA CHLORIDE 0.9% 1,000 ML IV SCH ×3 (03:39→13:15)
[2023-02-23] MEDS: METOPROLOL TAR 25 MG TAB PO SCH ×2 (07:09→17:15)
[2023-02-23] MEDS: INSULIN REGULAR (HUMAN) 100 UNIT/ML SQ SCH ×4 (07:30→20:26)
[2023-02-23] MEDS: SUCRALFATE 1 GM TABLET PO SCH ×4 (08:41→20:26)
[2023-02-23] MEDS: POTASSIUM CL SA 10 MEQ TAB PO SCH ×2 (08:41→20:26)
[2023-02-23] MEDS: HYDROCODONE/APAP 7.5/325 MG TAB PO PRN ×2 (08:41→20:26)
[2023-02-23] MEDS: ONDANSETRON 4 MG/2 ML VIAL IV PRN ×2 (08:42→22:21)
[2023-02-23] MEDS: ENOXAPARIN 40 MG/0.4 ML SQ SCH (08:47)
[2023-02-23] MEDS: FLUCONAZOLE 100 MG TAB PO SCH (17:24)
--- NOTE | 2023-02-23 17:30 | P.PN ---
Subjective Date of Service: 02/23/23 Chief Complaint: s/p left hip donald Subjective: Improving she reports yeast infection, pain controlled wth prn meds, ambulating with therapy - Physical Exam General: Alert, In no apparent distress HEENT: Atraumatic, Normocephalic Neck: Supple, 2+ carotid pulse no bruit Respiratory: Clear to auscultation bilaterally, Normal air movement Cardiovascular: No edema, Normal pulses Capillary refill: <2 Seconds Gastrointestinal: Normal bowel sounds, Soft and benign Musculoskeletal: No clubbing, No swelling Integumentary: Other (Patient with pain on the left hip) Neurological: Normal speech, Normal tone, Normal affect Review of Systems per hpi Physical Examination - Vital Signs Temperature: 96.6 F Blood Pressure: 145/68 Pulse: 73 Respirations: 17 Pulse Ox (%): 96 Assessment And Plan - Plan - Current Problems (Diagnosis) (1) Left femoral shaft fracture Current Visit: Yes Status: Acute Qualifiers: Encounter type: initial encounter with complaints of fall injury. Patient fell from an upright position, walking and slipped. Patient had this fall on 02/15/23 femur x-ray left close subcapital fracture of the proximal left femur, mild varus angulation no dislocation S/P left hemiarthoplast on 02/17/23 Dr. Spring. PT consult, fall precautions Plan to DC SNF for rehab, [facility] dc'ed, up to [facility] for BRP DC pending SNF prior auth yeast acute antifungal added (2) Hypertension Current Visit: Yes Status: Chronic Qualifiers: Hypertension type: primary hypertension Qualified Code(s): I10 - Essential (primary) hypertension Hypertension is controlled, will continue to monitor continue the home medication and will restart as appropriate (3) DM type 2 (diabetes mellitus, type 2) Current Visit: Yes Status: Chronic Qualifiers: Diabetes mellitus mcc insulin use: without superintendent terminal use Diabetes mellitus complication status: without complication Qualified Code(s): E11.9 - Type 2 diabetes mellitus without complications DM-2: Controlled, will will do blood sugar management is in at bedtime with a low-dose sliding scale, hypoglycemic precaution (4) Hypokalemia Current Visit: Yes Status: Acute Hypokalemia potassium 2.8, repleted her potassium as per hospital protocol and we will continue to monitor repeat K 3.4, replete prn, daily bmp, mag (5) Hyponatremia Current Visit: Yes Status: Acute IV fluid normal saline 100 mL /hr (6) Pain associated with left breast implant Current Visit: Yes Status: Acute Patient had an episode of increased pain under the left breast implant site pain 10 out of 10, morphine 20 mg IV given Twelve-lead EKG unremarkable CODE STATUSfull code Diet n.p.o. at this time to possible surgical management ProphylaxisLovenox Discharge Plan: Alf - Code Status/Comfort Care Code Status: Full Code Physician Review: Patient Assessed, Agree with Above Assessment and Plan Critical Care: No Time Spent Managing PTS Care (In Minutes): 35
[2023-02-23] MEDS: NYSTATIN 100MU/GM CREAM 15GM TOP SCH (20:25)
[2023-02-23] MEDS: LORAZEPAM 0.5 MG TABLET PO PRN (20:26)
--- NOTE | 2023-02-23 22:11 | P.PN ---
Subjective Date of Service: 02/23/23 Chief Complaint: s/p left hip donald Subjective: Improving, Working w/ PT pain controlled Physical Examination - Vital Signs Temperature: 96.9 F Blood Pressure: 131/70 Pulse: 67 Respirations: 18 Pulse Ox (%): 96 - Physical Exam General: Alert, In no apparent distress Musculoskeletal: Other (LLE: incision c/d/i without surrounding erythema or drainage; +EHL/FHL/GSC/ TA; sensation grossly intact distally) Assessment And Plan - Plan Reina is a 67 yo female s/p left hip hemiarthroplasty POD #6 -PT to mobilize WBAT LLE with posterior hip precautions -lovenox for dvt prophylaxis -await placement at SNF
[2023-02-24] MEDS: MAGNES/ALUMIN/SIMET 30ML UCUP PO PRN (00:14)
[2023-02-24 01:43] VITALS: O2SAT 99
[2023-02-24] MEDS: MORPHINE 2 MG/ML SYR IV PRN ×2 (02:15→06:50)
[2023-02-24] MEDS: NA CHLORIDE 0.9% 1,000 ML IV SCH (06:00)
[2023-02-24] MEDS: METOPROLOL TAR 25 MG TAB PO SCH (06:49)
[2023-02-24] MEDS: INSULIN REGULAR (HUMAN) 100 UNIT/ML SQ SCH ×2 (07:30→11:30)
[2023-02-24 07:51] VITALS: BP 148/78; TEMP 98
[2023-02-24] MEDS: ENOXAPARIN 40 MG/0.4 ML SQ SCH (08:26)
[2023-02-24] MEDS: POTASSIUM CL SA 10 MEQ TAB PO SCH (08:31)
[2023-02-24] MEDS: FLUCONAZOLE 100 MG TAB PO SCH (08:32)
[2023-02-24] MEDS: SUCRALFATE 1 GM TABLET PO SCH ×2 (08:32→11:30)
[2023-02-24] MEDS: NYSTATIN 100MU/GM CREAM 15GM TOP SCH (08:33)
[2023-02-24] MEDS ORDERED: FENTANYL 25 MCG/PATCH TD SCH (09:00)
== END 2023-02-24 16:18 | DRG 470 ==
LOC: ER 13:15 → ERHOLD 17:53 → 4TH 23:32
PROVIDERS: ADMIT Hospitalist; ATTEND Hospitalist
PROC: 0SRS0J9 Replacement of Left Hip Joint, Femoral Surface with Synthetic Substitute, Cemented, Open Approach (ICD-10-PCS; principal; 2023-02-17 11:30)
DX: S72.392A Other fracture of shaft of left femur, initial encounter for closed fracture (principal); E87.1 Hypo-osmolality and hyponatremia; E11.9 Type 2 diabetes mellitus without complications; I10 Essential (primary) hypertension; E87.6 Hypokalemia; D64.9 Anemia, unspecified; T85.848A Pain due to other internal prosthetic devices, implants and grafts, initial encounter; F17.210 Nicotine dependence, cigarettes, uncomplicated; I25.10 Atherosclerotic heart disease of native coronary artery without angina pectoris; B37.9 Candidiasis, unspecified; Z88.8 Allergy status to other drugs, medicaments and biological substances; Z90.49 Acquired absence of other specified parts of digestive tract; Z98.84 Bariatric surgery status; Z90.710 Acquired absence of both cervix and uterus; Z79.899 Other long term (current) drug therapy; W01.0XXA Fall on same level from slipping, tripping and stumbling without subsequent striking against object, initial encounter; Y99.9 Unspecified external cause status; Y93.01 Activity, walking, marching and hiking; Y92.019 Unspecified place in single-family (private) house as the place of occurrence of the external cause
CPT/HCPCS: 36415; 70450; 71250; 72100; 72125; 72170; 80048; 82947; 83735; 84100; 84132; 85014; 85018; 85025; 87804; 87811; 88305; 88311; 88312; 93005; 94010; 94640; 96372; 96374; 96375; 97110; 97116; 97161; 97165; 97530; 99283; 99284; A4216; J0171; J0360; J1100; J1170; J1650; J2001; J2270; J2371; J2405; J2704; J3010; J3475; J3480; J7030; J7050; J7120; J7613; J7644; Q0162

== ENCOUNTER 2023-03-02 10:41 | Observation (INO) | payer OTHER ==
[2023-03-02] MEDS ORDERED: NA CHLORIDE 0.9% 1,000 ML ONE ×2 (10:59→14:01)
[2023-03-02] MEDS ORDERED: ONDANSETRON 4 MG/2 ML VIAL ONE (10:59)
[2023-03-02 11:14] LABS: Absolute Lymphocytes (CBC) 0.8 K/uL (0.7-4.9); Lymphocytes % 22.7 % (15.3-44.8); MCV 85.3 fL (80-100); MPV 7.9 fL (7.6-11.3); Platelets 342 thou/uL (152-406)
--- NOTE | 2023-03-02 11:29 | RAD REPORT ---
EXAM DESCRIPTION: RAD - Chest Single View - 03/02/2023 11:20 am CLINICAL HISTORY: CHEST PAIN Chest pain. COMPARISON: Chest Single View dated 02/04/2023; Chest Single View dated 12/06/2022; Chest Single View dated 11/26/2022 FINDINGS: Portable technique limits examination quality. The lungs are grossly clear. The heart is upper limit normal in size. No displaced fractures. IMPRESSION: No acute intrathoracic process suspected.
[2023-03-02 11:47] LABS: Albumin 3.1 g/dL (3.4-5.0); Bilirubin Total 0.5 mg/dL (0.2-1.0); Potassium 2.8 mEq/L (3.5-5.1); Protein, Total 6.8 g/dL (6.4-8.2); Troponin High Sensitivity 45.2 pg/mL (<58.9)
[2023-03-02 12:19] LABS: Specific Gravity 1.006 (1.005-1.030); Urine Bacteria <20 /HPF (<20); Urine Bilirubin NEGATIVE (Negative); Urine Blood Negative (Negative); Urine Clarity Clear (Clear); Urine Color Colorless (Yellow); Urine Glucose NEGATIVE (Negative); Urine Mucus Slight /HPF (None Seen); Urine Protein NEGATIVE (Negative); Urine RBC <5 /HPF (None Seen); Urine Urobilinogen Normal (Normal)
--- NOTE | 2023-03-02 12:57 | RAD REPORT ---
EXAM DESCRIPTION: CT - Abdomen Pelvis W Contrast - 03/02/2023 12:33 pm CLINICAL HISTORY: Abdominal pain COMPARISON: January 2023 TECHNIQUE: Computed axial tomography of the abdomen pelvis was obtained. 100 cc Isovue-300 was admin istered intravenously. Oral contrast was not requested which limits evaluation of bowel and appendix All CT scans are performed using dose optimization technique as appropriate and may include automated exposure control or mA/KV adjustment according to patient size. FINDINGS: A sub centimeter low-density left lobe liver too small to characterize by CT criteria. Spleen, pancreas, adrenals and right kidney unremarkable. 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 Postsurgical changes stomach. Moderate amount of stool within the colon. No evidence diverticulitis. A left hip arthroplasty. 13 centimeter subacute hematoma left buttocks. Compression deformities lower thoracic/upper lumbar spine unchanged IMPRESSION: Moderate amount stool within the colon 13 centimeter subacute hematoma left buttocks. Patient is status post left hip arthroplasty
[2023-03-02] MEDS ORDERED: GLYCERIN PEDI RECTAL SUPP PR ONE (13:11)
[2023-03-02] MEDS ORDERED: HYDROCODONE/APAP 7.5/325 MG TAB ONE (13:18)
[2023-03-02] MEDS ORDERED: POTASSIUM CL SA 10 MEQ TAB PO ONE ×2 (14:00→21:37)
[2023-03-02] MEDS ORDERED: KCL 20 MEQ/100 mL IVPB 100 ML IV ONE (14:01)
--- NOTE | 2023-03-02 14:33 | ER ---
Nurse's Notes [facility] Name: Reina Hartley Age: 67 yrs Sex: Female : 1955 Arrival Date: 03/02/2023 Time: 10:41 Bed 7 Private MD: Diagnosis: Abdominal pain, Generalized;Chest pain, unspecified;Constipation;Hypokalemia;Abnormal electrocardiogram [ECG] [EKG] Presentation: 03/02 10:52 Chief complaint: EMS states: sent from [facility] , constipation X 1 week, has iw been on hydrocodone , they gave her MOM, lactulose, and MiraLax today , pt in rehab s/p hip replacement. Coronavirus screen: At this time, the client does not indicate any symptoms associated with coronavirus-19. Ebola Screen: Patient negative for fever greater than or equal to 101.5 degrees Fahrenheit, and additional compatible Ebola Virus Disease symptoms Patient denies exposure to infectious person. No symptoms or risks identified at this time. Initial Sepsis Screen: Does the patient meet any 2 criteria? No. Patient's initial sepsis screen is negative. Does the patient have a suspected source of infection? No. Patient's initial sepsis screen is negative. Risk Assessment: Do you want to hurt yourself or someone else? Patient reports no desire to harm self or others. Onset of symptoms was February 23, 2023. 10:52 Method Of Arrival: EMS: [facility] iw 10:52 Acuity: ANDREA 3 iw Historical: - Allergies: 10:54 Procardia; iw - PMHx: 10:54 diabetes mellitus; Hypertensive disorder; Myocardial infarction; iw - PSHx: 10:54 breast augmentation; Cholecystectomy; Gastric Bypass; hysterectomy; iw - Immunization history:: Adult Immunizations not up to date. - Social history:: Smoking status: Patient reports the use of cigarette tobacco products, denies chronic smoking, but will smoke occasionally. Screenin:05 [facility] ED Fall Risk Assessment (Adult) History of falling in the last 3 months, iw including since admission Yes- single mechanical fall (1 pt). Abuse screen: Denies threats or abuse. Denies injuries from another. Nutritional screening: No deficits noted. Tuberculosis screening: No symptoms or risk factors identified. Assessment: 11:15 General: Appears in no apparent distress. Behavior is cooperative. Pain: Complains of iw pain in right lower quadrant and left lower quadrant Pain currently is 10 out of 10 on a pain scale. Neuro: Level of Consciousness is awake, alert, obeys commands, Oriented to person, place, time, situation. Cardiovascular: Patient's skin is warm and dry. Respiratory: Respiratory effort is even, unlabored, Respiratory pattern is regular. GI: Abdomen is non-distended, Abd is soft X 4 quads Abdomen is tender to palpation in right lower quadrant and left lower quadrant. Derm: Skin is fragile, is thin, Skin is normal. Musculoskeletal: Range of motion: limited in left hip. 12:35 Reassessment: Patient appears in no apparent distress at this time. assisted pt with iw bedpan. Vital Signs: 10:55 BP 192 / 99; Pulse 75; Resp 16; Temp 98.4; Pulse Ox 96% on R/A; Weight 6.35 kg; Pain iw 10; 11:05 BP 166 / 98; Pulse 76; Resp 16; Pulse Ox 96% on R/A; iw 19:08 BP 156 / 80; Pulse 72; Resp 18 S; Temp 98.5(O); Pulse Ox 98% on R/A; as6 10:55 Pain Scale: Adult iw ED Course: 10:44 Patient arrived in ED. kc6 10:50 Nabeel Guardado MD is Attending Physician. ec2 10:54 Triage completed. iw 10:54 Arm band placed on. iw 10:55 Fany Deng, RN is Primary Nurse. iw 11:05 Initial lab(s) drawn, by va, sent to lab. Inserted saline lock: 22 gauge in right iw wrist, using aseptic technique. Blood collected. 11:08 EKG done, by ED staff, reviewed by Nabeel Guardado MD. pm6 11:16 Patient has correct armband on for positive identification. Pulse ox on. NIBP on. iw 11:22 CXR XRAY In Process Unspecified. EDMS 12:34 CT Abd/Pelvis - IV Contrast Only In Process Unspecified. EDMS 13:28 Troponin High Sensitivity Sent. kc6 14:32 Alessandra Ryder MD is Hospitalizing Provider. ec2 19:32 No provider procedures requiring assistance completed. Patient admitted, IV remains in as6 place. 19:33 Provided Education on: need for admit . as6 Administered Medications: 11:04 Drug: NS 0.9% IV 1000 ml IV at 1 bolus Per protocol; 1000 mL bolus Route: IV; Rate: 1 kc6 bolus; Site: right forearm; 13:29 Follow up: Response: No adverse reaction; IV Status: Completed infusion; IV Intake: kc6 1000ml 11:04 Drug: Ondansetron IVP 4 mg IVP once; over 2 minutes Route: IVP; Site: right forearm; kc6 13:29 Follow up: Response: No adverse reaction; Nausea is decreased; Vomiting decreased kc6 13:20 Drug: Hydrocodone-Acetaminophen PO (7.5 mg-325 mg) 1 tabs PO once Route: PO; iw 19:33 Follow up: Response: No adverse reaction as6 13:20 Drug: Glycerin (Adult) CO Suppository 1 supp CO once Route: CO; iw 19:33 Follow up: Response: No adverse reaction as6 14:16 Drug: Potassium Chloride PO 40 mEq PO once Route: PO; iw 19:34 Follow up: Response: No adverse reaction as6 14:16 Drug: Potassium Chloride IV 20 mEq IV at calculated rate once; administer over 1-2 iw hours Route: IV; Rate: calculated rate; Site: right wrist; 19:34 Follow up: Response: No adverse reaction; IV Status: Completed infusion; IV Intake: as6 100ml Medication: 19:32 VIS not applicable for this client. as6 Intake: 13:29 IV: 1000ml; Total: 1000ml. kc6 19:34 IV: 100ml; Total: 1100ml. as6 Outcome: 14:33 Decision to Hospitalize by Provider. ec2 19:33 Condition: stable as6 19:33 Instructed on the need for admit, 20:12 Admitted to Med/surg accompanied by tech, via wheelchair, room 225, with chart, Report as6 called to Mari KEYES 20:12 Patient left the ED. as6 Signatures: Dispatcher [employer] Fany Nunez RN RN iw Slawson, Ashby, RN RN as6 Campbell, Kaitlyn, RN RN kc6 Corral, Edwin, MD MD ec2 Odessa Mejias pm6
--- NOTE | 2023-03-02 14:33 | EDPHYS ---
Physician Documentation [facility] Name: Reina Hartley Age: 67 yrs Sex: Female : 1955 Arrival Date: 03/02/2023 Time: 10:41 Bed 7 Private MD: ED Physician Nabeel Guardado HPI: 03/02 10:55 This 67 yrs old Female presents to ER via EMS with complaints of Constipation.ec2 10:55 Patient arrives today for evaluation of chest pain abdominal pain. Patient reports that ec2 she has been having abdominal pain ongoing for at least 2 weeks, states that she feels that she is constipated. Patient reports that she is having some associated nausea, decreased p.o. intake. Patient reports generalized abdominal pain, states that she has not had a bowel movement in 2 weeks. Patient reports some increased urinary frequency as well as dysuria. Patient reports chest pain and shortness of breath as well.. Historical: - Allergies: 10:54 Procardia; iw - PMHx: 10:54 diabetes mellitus; Hypertensive disorder; Myocardial infarction; iw - PSHx: 10:54 breast augmentation; Cholecystectomy; Gastric Bypass; hysterectomy; iw - Immunization history:: Adult Immunizations not up to date. - Social history:: Smoking status: Patient reports the use of cigarette tobacco products, denies chronic smoking, but will smoke occasionally. ROS: 10:55 Constitutional: as per hpi ec2 Exam: 10:55 Constitutional: GEN: NAD Head: atraumatic Eyes: EOMI Ears: External ears are ec2 normal. CV: regular rate LUNGS: no respiratory distress ABD: non-distended, soft, nondistended, no guarding, generally tender SKIN: no evidence of rashes MSK: no evidence of trauma NEURO: moves all extremities equally Vital Signs: 10:55 BP 192 / 99; Pulse 75; Resp 16; Temp 98.4; Pulse Ox 96% on R/A; Weight 6.35 kg; Pain iw 10; 11:05 BP 166 / 98; Pulse 76; Resp 16; Pulse Ox 96% on R/A; iw 19:08 BP 156 / 80; Pulse 72; Resp 18 S; Temp 98.5(O); Pulse Ox 98% on R/A; as6 10:55 Pain Scale: Adult iw MDM: 10:51 Patient medically screened. ec2 10:55 Data reviewed: vital signs. ED course: Patient arrives today for evaluation of multiple ec2 complaints. Examination remarkable for abdominal findings as noted above. Will obtain lab work, cardiac workup as well as CT imaging. Currently considering processes such as urinary tract infection, small bowel obstruction, constipation, ACS.. 11:08 ED course: EKG independently reviewed and interpreted by me, shows T wave inversions ec2 noted in the anterolateral leads.. 11:27 ED course: External record review, compared to previous EKG, today's EKG with more T ec2 wave inversions in the anterior leads.. 12:20 ED course: CBC with slight leukopenia noted, CBC otherwise with slight anemia. ec2 Metabolic profile with slight hypokalemia and hyponatremia, urine is noninfectious, troponin within normal ranges. Chest x-ray shows no acute intrathoracic process. Pending CT abdomen pelvis. . 13:28 ED course: Repeat EKG independently reviewed and interpreted by me, shows normal sinus ec2 rhythm, rate of 77, no acute ST segment elevations, intervals are pertinent for QTc prolongation at 516, patient does have hypokalemia, will supplement potassium.. 14:31 ED course: CT imaging with no acute process, constipation noted. Will admit for QTc ec2 prolongation and T wave abnormalities. Discussed case with hospitalist, pending admission.. 12 10:55 Order name: CBC with Diff; Complete Time: 12:20 ec2 03/02 10:55 Order name: CMP; Complete Time: 12:20 ec2 03/02 10:55 Order name: Lipase; Complete Time: 12:20 ec2 03/02 10:55 Order name: UAM; Complete Time: 12:20 ec2 03/02 10:55 Order name: Troponin HS; Complete Time: 12:20 ec2 03/02 13:02 Order name: Troponin High Sensitivity; Complete Time: 13:57 ec2 03/02 15:19 Order name: NT PRO-BNP EDMS 03/02 15:19 Order name: Urinalysis w/ reflexes EDMS 03/02 15:19 Order name: Basic Metabolic Panel EDMS 03/02 15:19 Order name: Basic Metabolic Panel EDNC 03/02 15:19 Order name: Basic Metabolic Panel EDNC 03/02 15:19 Order name: Basic Metabolic Panel EDNC 03/02 15:19 Order name: CBC with Automated Diff EDMS 03/02 15:19 Order name: CBC with Automated Diff EDMS 03/02 15:19 Order name: CBC with Automated Diff EDMS 03/02 15:19 Order name: CBC with Automated Diff EDMS 03/02 15:19 Order name: Lipid Profile EDMS 03/02 15:19 Order name: Lipid Profile EDMS 03/02 15:19 Order name: Magnesium EDMS 03/02 15:19 Order name: Magnesium EDMS 03/02 15:19 Order name: Magnesium EDMS 03/02 15:19 Order name: Magnesium EDMS 03/02 15:19 Order name: Phosphorus EDMS 03/02 15:19 Order name: Phosphorus EDMS 03/02 15:19 Order name: Phosphorus EDMS 03/02 15:19 Order name: Phosphorus EDMS 03/02 10:55 Order name: CT Abd/Pelvis - IV Contrast Only; Complete Time: 13:02 ec2 03/02 10:55 Order name: CXR XRAY; Complete Time: 12:20 ec2 03/02 10:55 Order name: EKG; Complete Time: 10:55 ec2 03/02 13:02 Order name: EKG; Complete Time: 13:02 ec2 03/02 15:19 Order name: CONS Physician Consult EDMS 03/02 10:55 Order name: IV Saline Lock; Complete Time: 11:04 ec2 03/02 10:55 Order name: Labs collected and sent; Complete Time: 11:04 ec2 03/02 10:55 Order name: EKG - Nurse/Tech; Complete Time: 11:04 ec2 03/02 10:55 Order name: Cardiac monitoring; Complete Time: 11:04 ec2 03/02 10:55 Order name: O2 Per Protocol; Complete Time: 10:55 ec2 03/02 10:55 Order name: O2 Sat Monitoring; Complete Time: 10:55 ec2 03/02 13:02 Order name: EKG - Nurse/Tech; Complete Time: 13:28 ec2 Administered Medications: 11:04 Drug: NS 0.9% IV 1000 ml IV at 1 bolus Per protocol; 1000 mL bolus Route: IV; Rate: 1 kc6 bolus; Site: right forearm; 13:29 Follow up: Response: No adverse reaction; IV Status: Completed infusion; IV Intake: kc6 1000ml 11:04 Drug: Ondansetron IVP 4 mg IVP once; over 2 minutes Route: IVP; Site: right forearm; kc6 13:29 Follow up: Response: No adverse reaction; Nausea is decreased; Vomiting decreased kc6 13:20 Drug: Hydrocodone-Acetaminophen PO (7.5 mg-325 mg) 1 tabs PO once Route: PO; iw 19:33 Follow up: Response: No adverse reaction as6 13:20 Drug: Glycerin (Adult) MD Suppository 1 supp MD once Route: MD; iw 19:33 Follow up: Response: No adverse reaction as6 14:16 Drug: Potassium Chloride PO 40 mEq PO once Route: PO; iw 19:34 Follow up: Response: No adverse reaction as6 14:16 Drug: Potassium Chloride IV 20 mEq IV at calculated rate once; administer over 1-2 iw hours Route: IV; Rate: calculated rate; Site: right wrist; 19:34 Follow up: Response: No adverse reaction; IV Status: Completed infusion; IV Intake: as6 100ml Disposition Summary: 03/02/23 14:33 Hospitalization Ordered Notes: Hospitalization Status: Inpatient Admission ec2 Provider: Alessandra Ryder ec2 Location: Telemetry/[facility] (Inpatient) ec2 Condition: Stable ec2 Problem: an acute exacerbation ec2 Symptoms: are unchanged ec2 Bed/Room Type: Standard ec2 Room Assignment: 225(03/02/23 18:47) bd Diagnosis - Abdominal pain, Generalized ec2 - Chest pain, unspecified ec2 - Constipation ec2 - Hypokalemia ec2 - Abnormal electrocardiogram [ECG] [EKG] ec2 Forms: - Medication Reconciliation Form ec2 - SBAR form ec2 - Leadership Thank You Letter ec2 Signatures: Dispatcher [employer] Vijaya Lofton Irene, RN RN iw Dot Webster RN RN kc6 Nabeel Guardado MD MD ec2 Benito Levine RN as6 Corrections: (The following items were deleted from the chart) 18:47 14:33 ec2 bd
[2023-03-02] MEDS ORDERED: ALBUTEROL 2.5 MG/3 ML NEB SOL NEB PRN ×2 (15:13→22:41)
[2023-03-02] MEDS ORDERED: NITROGLYCERIN 0.4 MG/TAB SL PRN (15:17)
--- NOTE | 2023-03-02 15:25 | P.HP ---
Certification for Inpatient Patient History Date of Service: 03/02/23 Reason for admission: Abdominal Pain , chest pain History of Present Illness: Ms. Hartley, 67-year-old female with a history of type 2 diabetes NIDDM, hypertension was brought to the emergency room with complaints of abdominal pain. Patient reports that she has been having abdominal pain ongoing for at least 2 weeks, states that she feels that she is onstipated. Patient reports that she is having some associated nausea, decreased p.o. intake. Patient reports generalized abdominal pain, states that she has not had a bowel movement in 2 weeks. Patient reports some increased urinary frequency as well as dysuria. Patient reports chest pain and shortness of breath as well. Patient denies fever, chills vomiting. ED course Vital Signs: 10:55 BP 192 / 99; Pulse 75; Resp 16; Temp 98.4; Pulse Ox 96% on R/A; Weight 6.35 kg; Pain 10/10. 12 Lead EKG shows normal sinus rhythm with no acute ST segment elevation, intervals are prominent for QTc prolongation at 516, patient does have hypokalemia. Initial lab reports, CBC showing leukopenia WBC of 3.6, anemia hemoglobin 9.8, hematocrit 29, metabolic panel with hypokalemia potassium of 2.8 and hyponatremia sodium 132 urine analysis is negative, troponin levels within normal range. Chest x-ray shows no acute intrathoracic process. CT abdomen shows constipation. Admitting the patient with a diagnosis of abdominal pain, constipation, chest pain. - Past Medical/Surgical History Diabetic: No -: Gastritis / Esophagitis -: s/p lap band -: CAD s/p PCI -: h/o alcohol abuse, with ?liver cirrhosis -: chronic intermittent diarrhea -: CVA vs TIA -: COPD (mild) -: s/p PCI (~2019) -: cholecystectomy -: Appendectomy -: Lap-Band surgery -: EGD/C-scope (early 2022) Psychosocial/ Personal History: lives with daughter, recently moved to area - Family History Father -: Heart disease, Hypertension Mother -: Heart disease, Hypertension - Social History Alcohol use: No CD- Drugs: No Caffeine use: Yes <Bina Alarcon - Last Filed: 03/02/23 16:19> Date of Service: 03/02/23 <Alessandra Ryder - Last Filed: 03/02/23 17:00> Allergies nifedipine [From Procardia] Allergy (Mild, Verified 11/27/22 11:23) UNKNOWN hydromorphone [From Dilaudid] Allergy (Verified 02/17/23 14:13) Rash Home Medications: Sucralfate [Carafate*] 1 gm PO ACHS #30 tab 12/05/22 Potassium Oral Tab [Klor-Con 10 mEq Tab*] 10 meq PO BID 02/18/23 Albuterol Neb [Proventil 0.083% Neb Soln] 2.5 mg NEB [id number] PRN amp 02/21/23 Docusate [Colace Cap*] 200 mg PO DAILY PRN cap 02/21/23 Enoxaparin Sodium [Lovenox 40 MG INJ*] 40 mg SQ DAILY syr 02/21/23 Hydralazine [Apresoline*] 10 mg IV Q6HP PRN vial 02/21/23 Hydrocodone 7.5/APAP 325 [[employer] 7.5/325 mg*] 1 tab PO Q4H PRN tab 02/21/23 Insulin -Regular Human [Novolin -R*] See Protocol SQ ACHS ml 02/21/23 Ipratropium Neb [Atrovent*] 0.5 mg NEB [id number] PRN amp 02/21/23 LORazepam [Ativan*] 0.5 mg PO Q8H PRN tab 02/21/23 Metoprolol Succinate [Toprol Xl*] 25 mg PO DAILY tab 02/21/23 traMADol HCL [Ultram*] 50 mg PO Q6H PRN tab 02/21/23 Albuterol Neb [Proventil 0.083% Neb Soln] 2.5 mg NEB [id number] PRN amp 02/24/23 Docusate [Colace Cap*] 200 mg PO DAILY PRN cap 02/24/23 Enoxaparin Sodium [Lovenox 40 MG INJ*] 40 mg SQ DAILY syr 02/24/23 Hydrocodone 7.5/APAP 325 [[employer] 7.5/325 mg*] 1 tab PO Q4H PRN tab 02/24/23 Insulin -Regular Human [Novolin -R*] See Protocol SQ ACHS ml 02/24/23 LORazepam [Ativan*] 0.5 mg PO Q8H PRN tab 02/24/23 Metoprolol Tartrate [Lopressor*] 25 mg PO BID 6AM 6PM tab 02/24/23 Nystatin Cream [Mycostatin 100MU/Gm Cream*] 1 appl TOP BID tube 02/24/23 Potassium Oral Tab [Klor-Con 10 mEq Tab*] 10 meq PO BID tab 02/24/23 Sucralfate [Carafate*] 1 gm PO ACHS tab 02/24/23 traMADol HCL [Ultram*] 50 mg PO Q6H PRN tab 02/24/23 Physical Examination - Physical Exam General: Alert, Oriented x3 HEENT: Atraumatic, Normocephalic Neck: Supple, 2+ carotid pulse no bruit Respiratory: Clear to auscultation bilaterally, Normal air movement Cardiovascular: No edema, Normal pulses, Regular rate/rhythm Capillary refill: <2 Seconds Gastrointestinal: Normal bowel sounds, Soft and benign Musculoskeletal: No clubbing, No swelling, Other (left hip surgical dressing dry and intact.) Integumentary: No rashes, No breakdown Neurological: Normal gait, Normal speech, Normal tone - Studies Laboratory Data (last 24 hrs) 03/02/23 03/02/23 11:00 11:00 WBC 3.60 L Hgb 9.8 L Hct 29.0 L Plt Count 342 Sodium 132 L Potassium 2.8 L BUN 6 L Creatinine 0.70 Glucose 129 H Total Bilirubin 0.5 AST 18 ALT 11 L Alkaline Phosphatase 157 H Lipase 10 L <Bina Alarcon - Last Filed: 03/02/23 16:19> - Studies Laboratory Data (last 24 hrs) 03/02/23 03/02/23 11:00 11:00 WBC 3.60 L Hgb 9.8 L Hct 29.0 L Plt Count 342 Sodium 132 L Potassium 2.8 L BUN 6 L Creatinine 0.70 Glucose 129 H Total Bilirubin 0.5 AST 18 ALT 11 L Alkaline Phosphatase 157 H Lipase 10 L <Alessandra Ryder - Last Filed: 03/02/23 17:00> Assessment and Plan - Problems (Diagnosis) (1) Abdominal pain Current Visit: Yes Status: Acute Qualifiers: Abdominal location: generalized Qualified Code(s): R10.84 - Generalized abdominal pain (2) Constipation Current Visit: Yes Status: Acute Qualifiers: Constipation type: slow transit constipation Qualified Code(s): K59.01 - Slow transit constipation (3) Chest pain Current Visit: Yes Status: Acute Qualifiers: Chest pain type: unspecified Qualified Code(s): R07.9 - Chest pain, unspecified (4) Hypokalemia Current Visit: Yes Status: Acute (5) DM type 2 (diabetes mellitus, type 2) Current Visit: No Status: Chronic Qualifiers: Diabetes mellitus extermination inspector insulin use: without extermination inspector use Diabetes mellitus complication status: with diabetic arthropathy (6) Hypertension Current Visit: No Status: Chronic Qualifiers: Hypertension type: primary hypertension Qualified Code(s): I10 - Essential (primary) hypertension - Plan -Patient reports that she has been having abdominal pain ongoing for at least 2 weeks, associated with nausea abdominal pain and dysuria -CT scan abdomen shows constipation. Admitting the patient and start on laxatives. -Serum potassium 2.8, patient was given 20 mEq IV and 20 mEq p.o. potassium in the emergency room -Patient has prolonged QT (438/492) -Admitting the patient to telemetry, monitor closely, repeat EKG after potassium replacement -Recheck potassium today -Will reconciled home meds and resume as appropriate -The patient on before meals and at bedtime blood sugar monitoring and cover with a low-dose sliding scale insulin -Continue monitoring vital signs closely -CODE STATUS-full code -Diet diabetic diet -DVT prophylaxis Lovenox o Discharge Plan: Home Plan to discharge in: 24 Hours - Advance Directives Does patient have a Living Will: No Does patient have a Durable POA for Healthcare: No - Code Status/Comfort Care Code Status Assessed: Yes (full code) Code Status: Full Code Physician Review: Patient Assessed, Agree with Above Assessment and Plan Critical Care: No Time Spent Managing Pts Care (In Minutes): 55 (minutes) <Bina Alarcon - Last Filed: 03/02/23 16:19> - Plan Pt seen and examined. I agree withe the note by the STRATEGIC MARKETING MANAGER. Pt is a 67-year-old female with past medical history of type 2 diabetes NIDDM, and hypertension who presents with abdmoninal pain. Pt reports that she did not like the food served at the SNF and she has not had any real food for a few days. She feels constipated. On admission, labs show leukopenia WBC of 3.6, anemia hemoglobin 9.8, hematocrit 29, metabolic panel with hypokalemia potassium of 2.8 and hyponatremia sodium 132. Urinalysis is negative, troponin levels within normal range. Chest x-ray shows no acute intrathoracic process. CT abdomen shows constipation. At bedside, pt is in NAD. A/P; Constipation: Will start prn lactulose and follow up KUB. If no BM, will consider disimpaction by Gen surgery. Hypokalemia: K is 2.8. Will replete and monitor. Will check Mag. QTc prolongation: per EKG on admission Qtc is 520. Will avoid QTc prolonging drugs. Hyponatremia: Na is 132. Will continue IVF and monitor sodium level. Will continue home meds for other chronic medical problems. DVT ppx: SCD <Alessandra Ryder - Last Filed: 03/02/23 17:00>
[2023-03-02] MEDS ORDERED: ENOXAPARIN 40 MG/0.4 ML SQ SCH (16:00)
[2023-03-02] MEDS ORDERED: LACTULOSE 20 GM/30 ML UCUP PO PRN (16:26)
[2023-03-02] MEDS: INSULIN REGULAR (HUMAN) 100 UNIT/ML SQ SCH ×2 (16:30→21:00)
[2023-03-02] MEDS ORDERED: METRONIDAZOLE 500mg IVPB 500 MG/100 ML BAG IV SCH (17:00)
[2023-03-02] MEDS ORDERED: POTASSIUM CL SA 10 MEQ TAB PO SCH (18:00)
[2023-03-02] MEDS: SENOSIDES 8.6 MG TAB PO SCH (20:46)
[2023-03-02] MEDS: MORPHINE 4 MG/ML SYR IV PRN (20:46)
[2023-03-02 21:29] LABS: Potassium 3.8 mEq/L (3.5-5.1); Troponin High Sensitivity 47.3 pg/mL (<58.9)
[2023-03-02 22:09] VITALS: BMI 24.7
[2023-03-02] MEDS ORDERED: ACETAMINOPHEN 325 MG TABLET PO PRN (22:41)
[2023-03-02] MEDS ORDERED: POLYETHYL GLY 3350 17 GM/DOSE PO PRN (22:41)
[2023-03-02] MEDS ORDERED: MELATONIN 5 MG TABLET PO PRN (22:45)
[2023-03-02] MEDS: LORAZEPAM 0.5 MG TABLET PO PRN (23:26)
[2023-03-03 03:45] LABS: Absolute Lymphocytes (CBC) 1.4 K/uL (0.7-4.9); Hematocrit 25.1 % (36.0-45.0); Lymphocytes % 32.5 % (15.3-44.8); MCV 85.8 fL (80-100); MPV 8.1 fL (7.6-11.3); Platelets 268 thou/uL (152-406); RBC Red Blood Cell Count 2.93 M/uL (3.86-4.86)
[2023-03-03 04:39] LABS: Phosphorus 2.6 mg/dL (2.5-4.9); Potassium 3.6 mEq/L (3.5-5.1)
[2023-03-03 04:40] LABS: Magnesium 2.2 mg/dL (1.6-2.4)
[2023-03-03] MEDS ORDERED: POTASSIUM CL SA 10 MEQ TAB PO ONE (04:42)
[2023-03-03] MEDS: PANTOPRAZOLE 40MG TABLET PO SCH (05:49)
[2023-03-03] MEDS: METOPROLOL TAR 25 MG TAB PO SCH ×2 (05:49→17:38)
[2023-03-03] MEDS ORDERED: FLEET ENEMA ADULT PR PRN (06:48)
[2023-03-03] MEDS: MORPHINE 4 MG/ML SYR IV PRN ×3 (07:21→20:42)
--- NOTE | 2023-03-03 07:28 | P.CNS ---
Date of Consult: 03/02/23 Reason for Consult: prolonged QT, T wave inversions Chief Complaint: Abdominal Pain , chest pain History of Present Illness: Ms. Hartley is a 67 yo who was discharged from [facility] a few weeks ago s/p PCI with three stent placements. She was doing well but experienced extreme constipation and was concerned for bowel obstruction. Ms. Hartley has had a number of abdominal surgeries. It was noted on her arrival to the ED that she had deep t-wave inversions and a prolonged QTc. In laboratory evaluation, Ms. Hartley had a potassium of 2.8 Allergies nifedipine [From Procardia] Allergy (Mild, Verified 11/27/22 11:23) UNKNOWN insulin regular Allergy (Verified 03/02/23 20:52) Nausea/Vomiting Home medications list reviewed: Yes Home Medications: Enoxaparin Sodium [Lovenox 40 MG INJ*] 40 mg SQ DAILY syr 02/21/23 Hydrocodone 7.5/APAP 325 [[place] 7.5/325 mg*] 1 tab PO Q4H PRN tab 02/21/23 LORazepam [Ativan*] 0.5 mg PO Q8H PRN tab 02/21/23 Albuterol Neb [Proventil 0.083% Neb Soln] 2.5 mg NEB [id number] PRN amp 02/24/23 Metoprolol Tartrate [Lopressor*] 25 mg PO BID 6AM 6PM tab 02/24/23 Acetaminophen [Tylenol] 650 mg PO Q4HP PRN 03/02/23 Docusate [Colace Cap*] 200 mg PO DAILY 03/02/23 Ferrous Sulfate [Feosol] 325 mg PO DAILY 03/02/23 Multivitamin with Minerals [Multivitamins with Minerals] 1 each PO DAILY 03/02/23 Nystatin Cream [Mycostatin 100MU/Gm Cream*] 1 appl TOP Q12HP PRN 03/02/23 Omeprazole 20 mg PO DAILY 03/02/23 Polyethylene Glycol 3350 [Miralax] 17 gm PO DAILYPRN PRN 03/02/23 Sodium Chloride Tab [NaCl Tabs] 1 gm PO BID 03/02/23 - Past Medical/Surgical History Diabetic: No -: Gastritis / Esophagitis -: s/p lap band -: CAD s/p PCI -: h/o alcohol abuse, with ?liver cirrhosis -: chronic intermittent diarrhea -: CVA vs TIA -: COPD (mild) -: s/p PCI (~2019) -: cholecystectomy -: Appendectomy -: Lap-Band surgery -: EGD/C-scope (early 2022) Psychosocial/ Personal History: lives with daughter, recently moved to area - Family History Father Medical History: Heart disease, Hypertension Mother Medical History: Heart disease, Hypertension - Social History Smoking Status: Current some day smoker Alcohol use: No CD- Drugs: No Caffeine use: Yes Place of Residence: [place]irement Review of Systems 10-point ROS is otherwise unremarkable Cardiovascular: Other (denies chest pain/jaw pain) Gastrointestinal: Constipation, As per HPI Physical Examination Temp Pulse Resp BP Pulse Ox 98.4 F 77 16 178/84 H 98 03/03/23 04:00 03/03/23 05:49 03/03/23 04:00 03/03/23 05:49 03/03/23 04:00 General: Alert, In no apparent distress, Oriented x3 HEENT: Atraumatic, Normocephalic, PERRLA Neck: Supple, 2+ carotid pulse no bruit, JVD not distended Respiratory: Clear to auscultation bilaterally Cardiovascular: No edema, Regular rate/rhythm Capillary refill: <2 Seconds Gastrointestinal: Hypoactive, Soft and benign Musculoskeletal: No clubbing Integumentary: No rashes Neurological: Normal speech, Normal tone Lymphatics: No axilla or inguinal lymphadenopathy External genitalia: Deferred Rectal: Deferred Laboratory Data (last 24 hrs) 03/02/23 03/02/23 11:00 11:00 WBC 3.60 L Hgb 9.8 L Hct 29.0 L Plt Count 342 Sodium 132 L Potassium 2.8 L BUN 6 L Creatinine 0.70 Glucose 129 H Total Bilirubin 0.5 AST 18 ALT 11 L Alkaline Phosphatase 157 H Lipase 10 L - Problems (1) Hypokalemia Current Visit: Yes Status: Acute Plan: Monitor, trend, and replenish potassium, monitor magnesium (2) DM type 2 (diabetes mellitus, type 2) Current Visit: No Status: Chronic Plan: Continue tight diabetic control to avoid polyuria Qualifiers: Diabetes mellitus correction insulin use: without weights and measures sealer use Diabetes mellitus complication status: with diabetic arthropathy (3) Hypertension Current Visit: No Status: Chronic Plan: Continue home medications Pt two weeks out from PCI with three stents. Please continue Plavix and Aspirin Qualifiers: Hypertension type: primary hypertension Qualified Code(s): I10 - Essential (primary) hypertension (4) Prolonged QT interval Current Visit: Yes Status: Acute Plan: Monitor and replete electrolyte derangement, Repeat EKG this am with QTc of 483ms. Avoid QT prolongation medications Discuss risk of ETOH consumption on electrolytes and EKG changes continue anticoagulants f/u outpatient Cardiology Cardiology will sign off.
[2023-03-03] MEDS: INSULIN REGULAR (HUMAN) 100 UNIT/ML SQ SCH ×4 (07:30→20:41)
[2023-03-03] MEDS ORDERED: INFLUENZA VACCINE (for 6+ mo) 0.5 ML DOSE IMVAC ONE (08:00)
[2023-03-03] MEDS: ENOXAPARIN 40 MG/0.4 ML SQ SCH (08:22)
[2023-03-03] MEDS: ASPIRIN EC 81 MG TAB PO SCH (08:22)
[2023-03-03] MEDS: DOCUSATE NA 100 MG CAP PO SCH (08:22)
--- NOTE | 2023-03-03 17:02 | P.PN ---
Subjective Date of Service: 03/03/23 Chief Complaint: Abdominal Pain , chest pain Subjective: No new changes, Improving, Doing well Patient is alert and oriented x3 Reports that patient had 1 BM, but still have abdominal discomfort. Vitals stable NAD <Bina Alarcon - Last Filed: 03/03/23 16:56> Date of Service: 03/05/23 <Alessandra Ryder - Last Filed: 03/05/23 17:06> Review of Systems 10-point ROS is otherwise unremarkable <Bina Alarcon - Last Filed: 03/03/23 16:56> Physical Examination - Vital Signs Temperature: 98.4 F Blood Pressure: 178/84 Pulse: 77 Respirations: 18 Pulse Ox (%): 98 - Physical Exam General: Alert, In no apparent distress HEENT: Atraumatic, Normocephalic Neck: Supple, 2+ carotid pulse no bruit Respiratory: Clear to auscultation bilaterally, Normal air movement Cardiovascular: No edema, Regular rate/rhythm Capillary refill: <2 Seconds Gastrointestinal: Normal bowel sounds, Soft and benign Musculoskeletal: No clubbing, No swelling Integumentary: No rashes, No breakdown Neurological: Normal gait, Normal speech <Bina Alarcon - Last Filed: 03/03/23 16:56> Assessment And Plan - Current Problems (Diagnosis) (1) Abdominal pain Status: Acute Qualifiers: Abdominal location: generalized Qualified Code(s): R10.84 - Generalized abdominal pain (2) Constipation Status: Acute Qualifiers: Constipation type: slow transit constipation Qualified Code(s): K59.01 - Slow transit constipation (3) Chest pain Status: Acute Qualifiers: Chest pain type: unspecified Qualified Code(s): R07.9 - Chest pain, unspecified (4) Hypokalemia Status: Acute (5) DM type 2 (diabetes mellitus, type 2) Status: Chronic Qualifiers: Diabetes mellitus carboy filler insulin use: without carboy filler use Diabetes mellitus complication status: with diabetic arthropathy (6) Hypertension Status: Chronic Qualifiers: Hypertension type: primary hypertension Qualified Code(s): I10 - Essential (primary) hypertension - Plan -Patient reports that she had 1 BM but still with abdominal discomfort. Enema ordered. -CT scan abdomen shows constipation. Admitting the patient and start on l axatives. -Serum potassium 3.6 siabelle, monitor , replete as needed. -Patient has prolonged QT -Admitting the patient to telemetry, monitor closely -Recheck potassium today -The patient on before meals and at bedtime blood sugar monitoring and cover with a low-dose sliding scale insulin -Continue monitoring vital signs closely -CODE STATUS-full code -Diet diabetic diet -DVT prophylaxis Lovenox o Discharge Plan: Home Plan to discharge in: 24 Hours - Code Status/Comfort Care Code Status Assessed: Yes (full code) Code Status: Full Code Physician Review: Patient Assessed, Agree with Above Assessment and Plan Critical Care: No Time Spent Managing PTS Care (In Minutes): 35 (minutes) <Bina Alarcon - Last Filed: 03/03/23 16:56> - Plan Pt seen and examined. I agree with the note by the MECHANICAL SYSTEMS DESIGNER. Continue lactulose for constipation. <Alessandra Ryder - Last Filed: 03/05/23 17:06>
[2023-03-03] MEDS: HYDROCODONE/APAP 7.5/325 MG TAB PO PRN (17:38)
[2023-03-03] MEDS: Multi-VIT(Centravite Senior) 1 TAB TAB PO SCH (17:38)
[2023-03-03] MEDS: FERROUS SULFATE 325 MG TAB PO SCH (17:38)
[2023-03-03] MEDS: SENOSIDES 8.6 MG TAB PO SCH (20:41)
[2023-03-03] MEDS ORDERED: cloNIDine HCL 0.1 MG TAB PO SCH (21:00)
[2023-03-03] MEDS ORDERED: MAGNES/ALUMIN/SIMET 30ML UCUP PO PRN (22:28)
[2023-03-03] MEDS: LORAZEPAM 0.5 MG TABLET PO PRN (22:43)
[2023-03-04] MEDS: MORPHINE 4 MG/ML SYR IV PRN ×2 (04:33→09:09)
[2023-03-04] MEDS: METOPROLOL TAR 25 MG TAB PO SCH (05:33)
[2023-03-04] MEDS: PANTOPRAZOLE 40MG TABLET PO SCH (05:33)
[2023-03-04] MEDS: INSULIN REGULAR (HUMAN) 100 UNIT/ML SQ SCH ×2 (07:30→11:30)
[2023-03-04 07:36] LABS: Absolute Lymphocytes (CBC) 0.9 K/uL (0.7-4.9); Hematocrit 25.7 % (36.0-45.0); Lymphocytes % 20.3 % (15.3-44.8); MCV 85.2 fL (80-100); MPV 7.8 fL (7.6-11.3); Platelets 326 thou/uL (152-406); RBC Red Blood Cell Count 3.02 M/uL (3.86-4.86)
[2023-03-04 07:51] LABS: Magnesium 2.2 mg/dL (1.6-2.4); Phosphorus 3.5 mg/dL (2.5-4.9)
[2023-03-04 08:48] VITALS: O2SAT 98
[2023-03-04] MEDS ORDERED: HOME MED 1 EA UNK (Multivitamin With Minerals [Multivitamins With Minerals] Tablet) PO SCH (09:00)
[2023-03-04] MEDS ORDERED: CLOPIDOGREL 75 MG TABLET PO SCH (09:00)
--- NOTE | 2023-03-04 09:02 | RAD REPORT ---
EXAM DESCRIPTION: RAD - Abdomen 1 View (KUB) - 03/04/2023 8:55 am CLINICAL HISTORY: Abdomen pain FINDINGS: The bowel gas pattern is unremarkable. Mild to moderate amount of stool within the colon Left hip arthroplasty Post surgical changes are present. Benign-appearing calcifications
[2023-03-04] MEDS: ASPIRIN EC 81 MG TAB PO SCH (09:08)
[2023-03-04] MEDS: DOCUSATE NA 100 MG CAP PO SCH (09:08)
[2023-03-04] MEDS: FERROUS SULFATE 325 MG TAB PO SCH (09:08)
[2023-03-04] MEDS: ENOXAPARIN 40 MG/0.4 ML SQ SCH (09:16)
[2023-03-04] MEDS: Multi-VIT(Centravite Senior) 1 TAB TAB PO SCH (09:16)
[2023-03-04] MEDS: HYDROCODONE/APAP 7.5/325 MG TAB PO PRN ×2 (11:05→16:01)
--- NOTE | 2023-03-04 14:17 | P.DS ---
Admission Date: 03/02/23 Discharge Date: 03/04/23 Reason for Admission: Abdominal Pain , chest pain - Problems (1) Abdominal pain Status: Acute Qualifiers: Abdominal location: generalized Qualified Code(s): R10.84 - Generalized abdominal pain (2) Constipation Status: Acute Qualifiers: Constipation type: slow transit constipation Qualified Code(s): K59.01 - Slow transit constipation (3) Chest pain Status: Acute Qualifiers: Chest pain type: unspecified Qualified Code(s): R07.9 - Chest pain, unspecified (4) Hypokalemia Status: Acute (5) DM type 2 (diabetes mellitus, type 2) Status: Chronic Qualifiers: 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 Hartley, 67-year-old female with a history of type 2 diabetes NIDDM, hypertension was brought to the emergency room with complaints of abdominal pain. Patient reports that she has been having abdominal pain ongoing for at least 2 weeks, states that she feels that she is onstipated. Patient reports that she is having some associated nausea, decreased p.o. intake. Patient reports generalized abdominal pain, states that she has not had a bowel movement in 2 weeks. Patient reports some increased urinary frequency as well as dysuria. Patient reports chest pain and shortness of breath as well. Patient denies fever, chills vomiting. ED course Vital Signs: 10:55 BP 192 / 99; Pulse 75; Resp 16; Temp 98.4; Pulse Ox 96% on R/A; Weight 6.35 kg; Pain 10/10. 12 Lead EKG shows normal sinus rhythm with no acute ST segment elevation, intervals are prominent for QTc prolongation at 516, patient does have hypokalemia. Initial lab reports, CBC showing leukopenia WBC of 3.6, anemia hemoglobin 9.8, hematocrit 29, metabolic panel with hypokalemia potassium of 2.8 and hyponatremia sodium 132 urine analysis is negative, troponin levels within normal range. Chest x-ray shows no acute intrathoracic process. CT abdomen shows constipation. Admitting the patient with a diagnosis of abdominal pain, constipation, chest pain. Hospital Course: Is a pleasant 67-year-old female with a past medical history significant for type 2 diabetes, hypertension who was admitted to the [facility] on 03/02/2020 for abdominal pain, hypokalemia and abnormal EKG And constipation more than 2 weeks.. Patient was admitted, started on laxative and stool softeners, electrolyte replacement done seen by tooling manager. On 03/04/2023, patient was seen on morning rounds and deemed medically stable for discharge. Patient was discharged with instructions to schedule follow-up appointments with PCP in 1 week and tooling manager in 2 weeks. Patient was provided prescriptions for lactulose 15 mL daily and lidocaine patch 1 daily on the left knee topically for pain. The patient and family was given opportunity to ask questions and reported no further questions. 1. Please call and schedule a follow-up appointment with your PCP 2. Please call and schedule a follow-up appointment with tooling manager in 2 weeks - Please follow-up with your PCP for medication refills/adjustments <Bina Alarcon - Last Filed: 03/04/23 14:14> Admission Date: 03/02/23 Discharge Date: 03/05/23 <Alessandra Ryder - Last Filed: 03/05/23 16:55> Disposition: ROUTINE DISCHARGE Discharge Condition: GOOD Vital Signs/Physical Exam: Temp Pulse Resp BP Pulse Ox 97.7 F 65 16 134/72 100 03/04/23 12:00 03/04/23 12:00 03/04/23 12:05 03/04/23 12:00 03/04/23 12:05 General: Alert, Oriented x3 HEENT: Atraumatic, Normocephalic Neck: Supple, 2+ carotid pulse no bruit Respiratory: Clear to auscultation bilaterally, Normal air movement Cardiovascular: No edema, Normal pulses, Normal S1 S2 Capillary refill: <2 Seconds Gastrointestinal: Normal bowel sounds, Soft and benign Musculoskeletal: No clubbing, No swelling Integumentary: No rashes, No breakdown Neurological: Normal gait, Normal speech, Normal tone, Normal affect Laboratory Data at Discharge: WBC 4.40 thou/uL (4.3-10.9) 03/04/23 07:26 Hgb 8.4 g/dL (12.0-15.0) L 03/04/23 07:26 Hct 25.7 % (36.0-45.0) L 03/04/23 07:26 Plt Count 326 thou/uL (152-406) 03/04/23 07:26 Sodium 132 mEq/L (136-145) L 03/04/23 07:26 Potassium 4.0 mEq/L (3.5-5.1) 03/04/23 07:26 BUN 7 mg/dL (7-18) 03/04/23 07:26 Creatinine 0.61 mg/dL (0.55-1.02) 03/04/23 07:26 Glucose 102 mg/dL (74-106) 03/04/23 07:26 Phosphorus 3.5 mg/dL (2.5-4.9) 03/04/23 07:26 Magnesium 2.2 mg/dL (1.6-2.4) 03/04/23 07:26 Total Bilirubin 0.5 mg/dL (0.2-1.0) 03/02/23 11:00 AST 18 U/L (15-37) 03/02/23 11:00 ALT 11 U/L (13-56) L 03/02/23 11:00 Alkaline Phosphatase 157 U/L (45-117) H 03/02/23 11:00 Triglycerides 73 mg/dL (<150) 03/03/23 03:04 Cholesterol 113 mg/dL (<200) 03/03/23 03:04 HDL Cholesterol 43 mg/dL (40-60) 03/03/23 03:04 Cholesterol/HDL Ratio 2.63 03/03/23 03:04 Lipase 10 U/L (13-75) L 03/02/23 11:00 <Bnia Alarcon - Last Filed: 03/04/23 14:14> Vital Signs/Physical Exam: Temp Pulse Resp BP Pulse Ox 97.6 F 82 16 194/91 H 100 03/04/23 16:00 03/04/23 16:00 03/04/23 16:01 03/04/23 16:00 03/04/23 16:01 Laboratory Data at Discharge: WBC 4.40 thou/uL (4.3-10.9) 03/04/23 07:26 Hgb 8.4 g/dL (12.0-15.0) L 03/04/23 07:26 Hct 25.7 % (36.0-45.0) L 03/04/23 07:26 Plt Count 326 thou/uL (152-406) 03/04/23 07:26 Sodium 132 mEq/L (136-145) L 03/04/23 07:26 Potassium 4.0 mEq/L (3.5-5.1) 03/04/23 07:26 BUN 7 mg/dL (7-18) 03/04/23 07:26 Creatinine 0.61 mg/dL (0.55-1.02) 03/04/23 07:26 Glucose 102 mg/dL (74-106) 03/04/23 07:26 Phosphorus 3.5 mg/dL (2.5-4.9) 03/04/23 07:26 Magnesium 2.2 mg/dL (1.6-2.4) 03/04/23 07:26 Total Bilirubin 0.5 mg/dL (0.2-1.0) 03/02/23 11:00 AST 18 U/L (15-37) 03/02/23 11:00 ALT 11 U/L (13-56) L 03/02/23 11:00 Alkaline Phosphatase 157 U/L (45-117) H 03/02/23 11:00 Triglycerides 73 mg/dL (<150) 03/03/23 03:04 Cholesterol 113 mg/dL (<200) 03/03/23 03:04 HDL Cholesterol 43 mg/dL (40-60) 03/03/23 03:04 Cholesterol/HDL Ratio 2.63 03/03/23 03:04 Lipase 10 U/L (13-75) L 03/02/23 11:00 <Alessandra Ryder - Last Filed: 03/05/23 16:55> Diet: Low sodium Activity: Ad freddy Time spent managing pt's care (in minutes): 55 (minutes) <Bina Alarcon - Last Filed: 03/04/23 14:14> Physician Review: Patient Assessed, Agree with Above Assessment and Plan (Pt seen and examined. I agree with the note by the POLYMERIZATION ENGINEER. Ok to discharge pt.) <Alessandra Ryder - Last Filed: 03/05/23 16:55> Home Medications: Hydrocodone 7.5/APAP 325 [[place] 7.5/325 mg*] 1 tab PO Q4H PRN tab 02/21/23 LORazepam [Ativan*] 0.5 mg PO Q8H PRN tab 02/21/23 Albuterol Neb [Proventil 0.083% Neb Soln] 2.5 mg NEB [id number] PRN amp 02/24/23 Metoprolol Tartrate [Lopressor*] 25 mg PO BID 6AM 6PM tab 02/24/23 Acetaminophen [Tylenol] 650 mg PO Q4HP PRN 03/02/23 Docusate [Colace Cap*] 200 mg PO DAILY 03/02/23 Ferrous Sulfate [Ferrous Sulfate*] 325 mg PO DAILY 03/02/23 Multivitamin with Minerals [Multivitamins with Minerals] 1 each PO DAILY 03/02/23 Omeprazole 20 mg PO DAILY 03/02/23 Polyethylene Glycol 3350 [Miralax] 17 gm PO DAILYPRN PRN 03/02/23 Sodium Chloride Tab [Sodium Chloride*] 1 gm PO BID 03/02/23 Clopidogrel Bisulfate [Plavix*] 75 mg PO DAILY 30 Days #30 tab 03/04/23 Insulin -Regular Human [Novolin -R*] See Protocol SQ ACHS ml 03/04/23 Lactulose [Cephulac*] 15 ml PO DAILY 30 Days #450 ml 03/04/23 Lidocaine [Dermacinrx Lidocan] 1 each TP DAILY 30 Days #30 patch 03/04/23 New Medications: Lactulose [Cephulac*] 15 ml PO DAILY 30 Days #450 ml Lidocaine [Dermacinrx Lidocan] 1 each TP DAILY 30 Days #30 patch Clopidogrel Bisulfate [Plavix*] 75 mg PO DAILY 30 Days #30 tab Physician Discharge Instructions: PROBLEM: ABD pain, Chest pain, hypokalemia GOAL: Clear understanding of disease process INSTRUCTIONS: 1. Please call and schedule a follow-up appointment with your PCP 2. Please call and schedule a follow-up appointment with tooling manager in 2 weeks - Please follow-up with your PCP for medication refills/adjustments Is a pleasant 67-year-old female with a past medical history significant for type 2 diabetes, hypertension who was admitted to the [facility] on 03/02/2020 for abdominal pain, hypokalemia and abnormal EKG And constipation more than 2 weeks.. Patient was admitted, started on laxative and stool softeners, electrolyte replacement done seen by tooling manager. On 03/04/2023, patient was seen on morning rounds and deemed medically stable for discharge. Patient was discharged with instructions to schedule follow-up appointments with PCP in 1 week and tooling manager in 2 weeks. Patient was provided prescriptions for lactulose 15 mL daily and lidocaine patch 1 daily on the left knee topically for pain. The patient and family was given opportunity t o ask questions and reported no further questions. Diet: Low sodium Activity: Ad freddy [employer] Services Needed: Home Health DME Company Name of Company: [employer] Date or Referral: 03/03/23 IMMUNIZATION Influenza Vaccine Indicated: Yes Influenza Vaccine Given: Yes Date Given: Pneumonia Vaccine Indicated: No Pneumonia Vaccine Given: Date Given: Is a pleasant 67-year-old female with a past medical history significant for type 2 diabetes, hypertension who was admitted to the [facility] on 03/02/2020 for abdominal pain, hypokalemia and abnormal EKG And constipation more than 2 weeks.. Patient was admitted, started on laxative and stool softeners, electrolyte replacement done seen by tooling manager. On 03/04/2023, patient was seen on morning rounds and deemed medically stable for discharge. Patient was discharged with instructions to schedule follow-up appointments with PCP in 1 week and tooling manager in 2 weeks. Patient was provided prescriptions for lactulose 15 mL daily and lidocaine patch 1 daily on the left knee topically for pain. The patient and family was given opportunity to ask questions and reported no further questions. 1. Please call and schedule a follow-up appointment with your PCP 2. Please call and schedule a follow-up appointment with tooling manager in 2 weeks - Please follow-up with your PCP for medication refills/adjustments Followup: ORTEGA ALVAREZ [Primary Care Provider] -
--- NOTE | 2023-03-04 15:10 | EKG ---
Test Date: 2023-03-03 Test Time: 06:43:13 Plant Protection Superintendent: DANA MEASUREMENT RESULTS: Intervals: Rate: 63 MD: 152 QRSD: 84 QT: 472 QTc: 483 [place]: P: 29 MD: 152 QRS: 56 T: 256 INTERPRETIVE STATEMENTS: Normal sinus rhythm Marked T wave abnormality, consider anterolateral ischemia Prolonged QT Abnormal ECG Compared to ECG 03/02/2023 13:25:44 No significant changes Electronically Signed On 03-04-23 15:07:58 TECHNOLOGY DIRECTOR by David Irby
--- NOTE | 2023-03-04 15:14 | EKG ---
Test Date: 2023-03-02 Test Time: 13:25:44 Cadmium Burner: JOSE ALFREDO MEASUREMENT RESULTS: Intervals: Rate: 77 DC: 160 QRSD: 92 QT: 456 QTc: 516 [place]: P: 51 DC: 160 QRS: 81 T: 187 INTERPRETIVE STATEMENTS: Normal sinus rhythm ST & Marked T wave abnormality, consider anterolateral ischemia Prolonged QT Abnormal ECG Compared to ECG 02/20/2023 09:33:00 Prolonged QT interval now present Atrial fibrillation no longer present T-wave abnormality still present Possible ischemia still present Electronically Signed On 03-04-23 15:09:48 PSYCHOLOGY ASSISTANT by David Irby
--- NOTE | 2023-03-04 15:15 | EKG ---
Test Date: 2023-03-02 Test Time: 11:05:44 Cell Biology Scientist: BLAS MEASUREMENT RESULTS: Intervals: Rate: 76 [place]: 146 QRSD: 94 QT: 438 QTc: 492 [place]: P: 38 [place]: 146 QRS: 33 T: 253 INTERPRETIVE STATEMENTS: Normal sinus rhythm Marked T wave abnormality, consider anterolateral ischemia Prolonged QT Abnormal ECG Compared to ECG 02/20/2023 09:33:00 Prolonged QT interval now present Atrial fibrillation no longer present T-wave abnormality still present Possible ischemia still present Electronically Signed On 03-04-23 15:10:17 RN FAMILY PRACTICE by David Irby
[2023-03-04] MEDS ORDERED: LIDOCAINE 4% PATCH TOP SCH (16:00)
[2023-03-04 17:25] VITALS: BP 194/91; TEMP 97.6
[2023-03-05] MEDS ORDERED: LIDOCAINE 4% PATCH TOP SCH (09:00)
== END 2023-03-04 17:15 | disposition home or self-care (01) ==
LOC: ER 10:41 → ERHOLD 15:08 → 2ND 19:20
PROVIDERS: ADMIT Hospitalist; ATTEND Hospitalist
DX: R10.9 Unspecified abdominal pain (principal); K59.00 Constipation, unspecified; R07.9 Chest pain, unspecified; E11.9 Type 2 diabetes mellitus without complications; I10 Essential (primary) hypertension; R94.31 Abnormal electrocardiogram [ECG] [EKG]; R11.0 Nausea; E87.6 Hypokalemia; E87.1 Hypo-osmolality and hyponatremia; D64.9 Anemia, unspecified; Z88.8 Allergy status to other drugs, medicaments and biological substances; Z95.5 Presence of coronary angioplasty implant and graft; Z23 Encounter for immunization
CPT/HCPCS: 96365; 96361; 93005 ×3; 85025 ×3; 81001; 80048 ×2; 36415 ×3; 83735 ×2; 84100 ×2; 84132; 80061; 82947 ×7; 84484 ×5; 83690; 80053; 83880; 74177; 74018; 71045; 90471; 97116; 97161; 97530; 94640; 96375; 99285; 96366; Q9967; Q2035; J3480; J2001; J7613; J1650 ×2; J2405; J7030 ×2; G0378

== ENCOUNTER → 2023-03-06 | Emergency (ER) | payer OTHER ==
[~2023-03-06] MED LIST: ALBUTEROL 2.5 MG/3 ML NEB SOL ONE; BISACODYL 10 MG RECTAL SUPP ONE; CYCLOBENZAPRINE 10 MG TAB ONE; FAMOTIDINE 20 MG/2 ML VIAL IV ONE; FENTANYL CITR 100 MCG/2 ML ONE; HYDRALAZINE HCL 25 MG TABLET ONE; HYDROCODONE/APAP 5/325 MG TAB ONE; IPRATROPIUM BROM 0.5MG/2.5ML ONE; KCL 20 MEQ/100 mL IVPB 100 ML IV ONE; LACTULOSE 20 GM/30 ML UCUP ONE; MAGNESIUM CITRATE 300 ML BOT ONE; METOCLOPRAMIDE 10 MG/2mL INJ ONE; MORPHINE 4 MG/ML SYR ONE; NA CHLORIDE 0.9% 1,000 ML ONE; NA CHLORIDE 0.9% 500 ML ONE; ONDANSETRON 4 MG/2 ML VIAL ONE; POTASSIUM CL SA 10 MEQ TAB PO ONE; PROMETHAZINE 25 MG TABLET ONE; cloNIDine HCL 0.1 MG TAB ONE
[2023-03-06 12:36] LABS: Absolute Lymphocytes (CBC) 0.7 K/uL (0.7-4.9); Hematocrit 30.4 % (36.0-45.0); Lymphocytes % 13.9 % (15.3-44.8); MPV 7.7 fL (7.6-11.3); Platelets 400 thou/uL (152-406); RBC Red Blood Cell Count 3.58 M/uL (3.86-4.86)
--- NOTE | 2023-03-06 14:09 | RAD REPORT ---
EXAM DESCRIPTION: CT - Chest For Pe Angio - 03/06/2023 1:09 pm CLINICAL HISTORY: CHEST PAIN COMPARISON: Chest For Pe Angio dated 12/06/2022; Chest Abd Pelvis Wo Con dated 11/26/2022 TECHNIQUE: Thin axial CT images of the chest were obtained following administration of 100 mL Isovue 370 IV contrast. Multiplanar reconstructions, and maximum intensity projection reconstructions were generated and reviewed. Exam utilizes a protocol for optimal evaluation of pulmonary arterial tree. All CT scans are performed using dose optimization technique as appropriate and may include automated exposure control or mA/KV adjustment according to patient size. FINDINGS: Pulmonary arteries are normal. No emboli or other suspicious finding. No acute or signific ant aorta findings. No mass or infiltrate in the lung parenchyma. No pleural thickening or pleural effusion. No pneumotho rax. No abnormal mediastinal or hilar masses or lymphadenopathy seen. No chest wall mass or abnormal axill iary lymphadenopathy. Left 4th and 5th anterior and right 10th posterior healing rib fractures. IMPRESSION: No evidence of acute central pulmonary emboli. Left 4th and 5th anterior and right 10th posterior healing rib fractures.
--- NOTE | 2023-03-06 14:46 | RAD REPORT ---
EXAM DESCRIPTION: CT - Abdomen Pelvis W Contrast - 03/06/2023 1:09 pm CLINICAL HISTORY: CONSTIPATION COMPARISON: Abdomen Pelvis W Contrast dated 03/02/2023; Chest For Pe Angio dated 03/06/2023 TECHNIQUE: Thin cut axial CT imaging of the abdomen and pelvis was performed following intravenous a dministration of 100 mL Isovue 300. Multiplanar reformats were generated and reviewed. All CT scans are performed using dose optimization technique as appropriate and may include automated exposure control or mA/KV adjustment according to patient size. FINDINGS: No suspicious findings in the lung bases. The liver, spleen, adrenal glands, and pancreas show no suspicious findings. Gallbladder was surgical ly removed. Symmetric renal function is seen with no hydronephrosis or suspicious renal mass. Sequelae of gastric bypass. No dilated bowel loops or bowel wall thickening. No free air, free fluid or inflammatory stranding. No hernia, mass or bulky lymphadenopathy. The urinary bladder is without s ignificant finding. No suspicious bony findings. Left hip periprosthetic collection measuring 7.4 x3.5x 12.9 cm. Overlyin g subcutaneous 4.1 x 3.8 cm collection. These are stable. Stable compression deformities T11-L2. IMPRESSION: No acute intra-abdominal process. Stable findings as above.
[2023-03-06 15:47] LABS: Albumin 2.9 g/dL (3.4-5.0); Bilirubin Total 0.3 mg/dL (0.2-1.0)
[2023-03-06 15:48] LABS: Potassium 3.3 mEq/L (3.5-5.1)
--- NOTE | 2023-03-06 16:01 | EDPHYS ---
Physician Documentation [facility] Name: Reina Hartley Age: 67 yrs Sex: Female : 1955 Arrival Date: 03/06/2023 Time: 11:59 Bed 5 Private MD: ED Physician Rich Anand HPI: 03/06 13:08 This 67 yrs old Female presents to ER via EMS with complaints of Abdominal Pain, Chest rt Pain. 13:08 Patient presents to the ED with multiple complaints. Patient recently had a hip rt replacement surgery, was recently admitted to the hospital for electrolyte disturbances. She states she has not had a bowel movement since discharge, only small amount of hard, dark stool. Reports lower abdominal pain as well as the chest pain started this morning at about 5. This woke her up from sleep. Denies shortness of breath. Denies other acute complaints, symptoms are moderate severity, no other aggravating or elevating factors.. Historical: - Allergies: 12:07 Procardia; cp4 - PMHx: 12:07 diabetes mellitus; Hypertensive disorder; Myocardial infarction; cp4 - PSHx: 12:07 breast augmentation; Cholecystectomy; Gastric Bypass; hysterectomy; cp4 - Immunization history:: Adult Immunizations up to date. - Social history:: Smoking status: Patient denies any tobacco usage or history of. - Family history:: not pertinent. ROS: 13:08 Constitutional: Negative for fever, chills, and weight loss, Respiratory: Negative for rt shortness of breath, cough, wheezing, and pleuritic chest pain, MS/Extremity: Negative for injury and deformity, Skin: Negative for injury, rash, and discoloration, Neuro: Negative for headache, weakness, numbness, tingling, and seizure, Psych: Negative for depression, anxiety, suicide ideation, homicidal ideation, and hallucinations, 13:08 Cardiovascular: Positive for chest pain, Negative for edema, 13:08 Abdomen/GI: Positive for abdominal pain, constipation, Exam: 13:08 Constitutional: This is a well developed, well nourished patient who is awake, alert, rt and in no acute distress. Head/Face: Normocephalic, atraumatic. Chest/axilla: Normal chest wall appearance and motion. Nontender with no deformity. No lesions are appreciated. Cardiovascular: Regular rate and rhythm with a normal S1 and S2. No gallops, murmurs, or rubs. Normal PMI, no JVD. No pulse deficits. Respiratory: Lungs have equal breath sounds bilaterally, clear to auscultation and percussion. No rales, rhonchi or wheezes noted. No increased work of breathing, no retractions or nasal flaring. Abdomen/GI: Soft, non-tender, with normal bowel sounds. No distension or tympany. No guarding or rebound. No evidence of tenderness throughout. Skin: Warm, dry with normal turgor. Normal color with no rashes, no lesions, and no evidence of cellulitis. MS/ Extremity: Pulses equal, no cyanosis. Neurovascular intact. Full, normal range of motion. Neuro: Awake and alert, GCS 15, oriented to person, place, time, and situation. Cranial nerves II-XII grossly intact. Motor strength 5/5 in all extremities. Sensory grossly intact. Cerebellar exam normal. Normal gait. Psych: Awake, alert, with orientation to person, place and time. Behavior, mood, and affect are within normal limits. 13:08 ECG was reviewed by the Attending Physician. Vital Signs: 12:05 BP 185 / 99; Pulse 92; Resp 18; Temp 98.4; Pulse Ox 100% ; cp4 16:38 BP 197 / 99; Pulse 85; Resp 18; Pulse Ox 100% ; cp4 MDM: 12:08 Patient medically screened. rt 19:07 Differential diagnosis: Constipation, bowel obstruction. Data reviewed: vital signs, rt nurses notes, lab test result(s), EKG, radiologic studies. Consideration of Admission/Observation Escalation of care including admission/observation considered. Troponin negative, low suspicion for acute coronary syndrome, does not require mission for rule out. Symptoms are improving with treatment in the ED, stable for outpatient care, to follow-up as an outpatient.. Care significantly affected by the following chronic conditions: Diabetes. Counseling: I had a detailed discussion with the patient and/or guardian regarding the historical points, exam findings, and any diagnostic results supporting the discharge/admit diagnosis, lab results, radiology results, the need for outpatient follow up, to return to the emergency department if symptoms worsen or persist or if there are any questions or concerns that arise at home. Response to treatment: the patient's symptoms have markedly improved after treatment. 03/06 12:08 Order name: CBC with Diff; Complete Time: 14:23 rt 03/06 12:08 Order name: CMP; Complete Time: 15:53 rt 03/06 12:08 Order name: Troponin High Sensitivity; Complete Time: 15:53 rt 03/06 12:08 Order name: BNP; Complete Time: 15:53 rt 03/06 12:08 Order name: CT Chest For PE Angio; Complete Time: 14:23 rt 03/06 12:08 Order name: CT Abd/Pelvis - IV Contrast Only; Complete Time: 14:48 rt 03/06 12:08 Order name: EKG; Complete Time: 12:08 rt 03/06 12:08 Order name: EKG - Nurse/Tech; Complete Time: 12:23 rt 03/06 12:52 Order name: Misc. Order: redraw for green top; Complete Time: 15:14 sp EC:08 Rate is 79 beats/min. Rhythm is regular. QRS [place] is Normal. RI interval is normal. QRS rt interval is normal. QT interval is normal. No Q waves. Clinical impression: NSR w/ Non-specific ST/T Changes. Administered Medications: 12:53 Drug: Lactulose PO 30 grams 45 ml PO once Volume: 45 ml; Route: PO; cp4 16:36 Follow up: Response: No adverse reaction cp4 12:54 Drug: morphine IVP or IV 4 mg IVP once over 4 mins Route: IVP; Infused Over: 4 mins; cp4 Site: right hand; 16:37 Follow up: Response: No adverse reaction cp4 12:54 Drug: Ondansetron IVP 4 mg IVP once; over 2 minutes Route: IVP; Site: right hand; cp4 16:37 Follow up: Response: No adverse reaction cp4 12:54 Drug: DuoNeb Nebulize (3:1) (2.5 mg - 0.5 mg) 3 ml Nebulizer once Route: Nebulizer; cp4 16:37 Follow up: Response: No adverse reaction cp4 12:54 Drug: Dulcolax RI Suppository 10 mg RI once Route: RI; cp4 16:37 Follow up: Response: No adverse reaction cp4 16:36 Not Given (Patient Refused): [id number] mg PO once cp4 Disposition Summary: 03/06/23 16:01 Discharge Ordered Notes: Location: Home rt Problem: an ongoing problem rt Symptoms: are unchanged rt Condition: Stable rt Diagnosis - Constipation rt Followup: rt - With: Private Physician - When: 2 - 3 days - Reason: Discharge Instructions: - Discharge Summary Sheet rt - Constipation, Adult rt Forms: - Medication Reconciliation Form rt - Thank You Letter rt - Antibiotic Education rt - Prescription Opioid Use rt - Patient Portal Instructions rt - Leadership Thank You Letter rt Prescriptions: - Cyclobenzaprine 10 mg Oral Tablet - take 1 tablet ORAL route every 8 hours As needed; 30 tablet; Refills: 0, rt Product Selection Permitted Signatures: Dispatcher [employer] EDMS Luisa Au Ryan, MD MD rt [place] cp4
--- NOTE | 2023-03-06 16:01 | ER ---
Nurse's Notes [facility] Name: Reina Hartley Age: 67 yrs Sex: Female : 1955 Arrival Date: 03/06/2023 Time: 11:59 Bed 5 Private MD: Diagnosis: Constipation Presentation: 03/06 12:05 Chief complaint: EMS states: chest and abdominal pain that has been ongoing since her cp4 discharge from here 2 days ago. Reports constipation and dark stools. Coronavirus screen: Vaccine status: Patient reports being unvaccinated. Client denies travel out of the [place] in the last 14 days. At this time, the client does not indicate any symptoms associated with coronavirus-19. Ebola Screen: Patient negative for fever greater than or equal to 101.5 degrees Fahrenheit, and additional compatible Ebola Virus Disease symptoms Patient denies exposure to infectious person. Patient denies travel to an Ebola-affected area in the 21 days before illness onset. No symptoms or risks identified at this time. Initial Sepsis Screen: Does the patient meet any 2 criteria? No. Patient's initial sepsis screen is negative. Does the patient have a suspected source of infection? No. Patient's initial sepsis screen is negative. Risk Assessment: Do you want to hurt yourself or someone else? Patient reports no desire to harm self or others. Onset of symptoms was March 04, 2023. 12:05 Method Of Arrival: EMS: [facility] cp4 12:05 Acuity: ANDREA 3 cp4 Triage Assessment: 12:07 General: Appears in no apparent distress. Behavior is calm, cooperative, appropriate cp4 for age. Pain: Pain currently is 10 out of 10 on a pain scale. GI: Abdomen is flat, non-distended, Abd is soft Abdomen is tender to palpation X 4 quads. Historical: - Allergies: 12:07 Procardia; cp4 - PMHx: 12:07 diabetes mellitus; Hypertensive disorder; Myocardial infarction; cp4 - PSHx: 12:07 breast augmentation; Cholecystectomy; Gastric Bypass; hysterectomy; cp4 - Immunization history:: Adult Immunizations up to date. - Social history:: Smoking status: Patient denies any tobacco usage or history of. - Family history:: not pertinent. Screenin:[facility] ED Fall Risk Assessment (Adult) History of falling in the last 3 months, cp4 including since admission No falls in past 3 months (0 pts) Confusion or Disorientation No (0 pts) Intoxicated or Sedated No (0 pts) Impaired Gait No (0 pts) Mobility Assist Device Used No (0 pt) Altered Elimination No (0 pt) Score/Fall Risk Level 0 - 2 = Low Risk Oriented to surroundings, Maintained a safe environment, Educated pt \T\ family on fall prevention, incl call for assistance when getting out of bed, Assessed \T\ reinforced patient's understanding of fall precautions, Hourly rounding (assess needs \T\ fall precautionary measures) done. Abuse screen: Denies threats or abuse. Nutritional screening: No deficits noted. Tuberculosis screening: No symptoms or risk factors identified. Assessment: 12:10 GI: Bowel sounds present X 4 quads. cp4 Vital Signs: 12:05 BP 185 / 99; Pulse 92; Resp 18; Temp 98.4; Pulse Ox 100% ; cp4 16:38 BP 197 / 99; Pulse 85; Resp 18; Pulse Ox 100% ; cp4 ED Course: 12:03 Patient arrived in ED. cp4 12:03 Rcih Anand MD is Attending Physician. rt 12:05 Little Arana is Primary Nurse. cp4 12:07 Triage completed. cp4 12:07 Arm band placed on left wrist. Patient placed in the treatment room, on a stretcher. cp4 12:10 Bed in low position. Call light in reach. Side rails up X 1. cp4 12:10 No provider procedures requiring assistance completed. Maintain EMS IV. Dressing cp4 intact. Good blood return noted. Site clean \T\ dry. Gauge \T\ site: 20 G right forear. 12:29 BNP Sent. cp4 12:29 Troponin High Sensitivity Sent. cp4 12:29 CMP Sent. cp4 12:29 CBC with Diff Sent. cp4 13:11 CT Chest For PE Angio In Process Unspecified. EDMS 13:11 CT Abd/Pelvis - IV Contrast Only In Process Unspecified. EDMS 16:39 Provided Education on: constipation. cp4 16:39 intact, bleeding controlled, No redness/swelling at site. Pressure dressing applied. cp4 Administered Medications: 12:53 Drug: Lactulose PO 30 grams 45 ml PO once Volume: 45 ml; Route: PO; cp4 16:36 Follow up: Response: No adverse reaction cp4 12:54 Drug: morphine IVP or IV 4 mg IVP once over 4 mins Route: IVP; Infused Over: 4 mins; cp4 Site: right hand; 16:37 Follow up: Response: No adverse reaction cp4 12:54 Drug: Ondansetron IVP 4 mg IVP once; over 2 minutes Route: IVP; Site: right hand; cp4 16:37 Follow up: Response: No adverse reaction cp4 12:54 Drug: DuoNeb Nebulize (3:1) (2.5 mg - 0.5 mg) 3 ml Nebulizer once Route: Nebulizer; cp4 16:37 Follow up: Response: No adverse reaction cp4 12:54 Drug: Dulcolax MA Suppository 10 mg MA once Route: MA; cp4 16:37 Follow up: Response: No adverse reaction cp4 16:36 Not Given (Patient Refused): [id number] mg PO once cp4 Medication: 12:10 VIS not applicable for this client. cp4 Outcome: 16:01 Discharge ordered by . rt 16:39 Discharged to home via wheelchair, cp4 16:39 Condition: stable 16:39 Discharge instructions given to patient, Instructed on discharge instructions, follow up and referral plans. medication usage, Demonstrated understanding of instructions, follow-up care, medications, 16:40 Patient left the ED. cp4 Signatures: Dispatcher [employer] EDRich Reyes MD MD rt Potter, Christina cp4
[2023-03-06 17:04] VITALS: TEMP 98.4; O2SAT 100
[2023-03-06 17:10] VITALS: BP 197/99
== END ==
LOC: ER 11:59
DX: K59.00 Constipation, unspecified (principal); R07.9 Chest pain, unspecified; E11.9 Type 2 diabetes mellitus without complications; I10 Essential (primary) hypertension; Z88.8 Allergy status to other drugs, medicaments and biological substances; Z98.82 Breast implant status
CPT/HCPCS: 85025; 36415; 84484; 80053; 83880; 71275; 74177; 94640; 96375; 96374; 99285; Q9967; J7613; J7644; J2405; 93005

== ENCOUNTER → 2023-03-08 | Emergency (ER) | payer OTHER ==
--- NOTE | 2023-03-08 19:52 | RAD REPORT ---
EXAM DESCRIPTION: RAD - Chest Single View - 03/08/2023 7:33 pm CLINICAL HISTORY: CHEST PAIN COMPARISON: Abdomen 1 View (KUB) dated 03/04/2023; Chest Single View dated 03/02/2023; Chest Single View dated 02/04/2023; Chest Single View dated 12/06/2022 FINDINGS: Lines: None. Lungs: No evidence of edema or pneumonia. Pleural: No significant pleural effusions or pneumothorax. Cardiac: The heart size is within normal limits. Mediastinum: Within normal limits. Bones: No acute fractures. Other: None IMPRESSION: No acute cardiopulmonary disease.
[2023-03-08 20:15] LABS: Absolute Lymphocytes (CBC) 0.9 K/uL (0.7-4.9); Hematocrit 34.1 % (36.0-45.0); Lymphocytes % 14.5 % (15.3-44.8); MCV 83.8 fL (80-100); MPV 7.6 fL (7.6-11.3); Platelets 480 thou/uL (152-406); RBC Red Blood Cell Count 4.06 M/uL (3.86-4.86)
[2023-03-08 20:19] LABS: Specific Gravity 1.007 (1.005-1.030); Urine Bacteria <20 /HPF (<20); Urine Bilirubin NEGATIVE (Negative); Urine Blood Negative (Negative); Urine Clarity Turbid (Clear); Urine Color Colorless (Yellow); Urine Crystals Unidentified Few /HPF (None Seen); Urine Glucose NEGATIVE (Negative); Urine Protein NEGATIVE (Negative); Urine RBC <5 /HPF (None Seen); Urine Urobilinogen Normal (Normal); Urine WBC Clump Rare /HPF (None Seen); Urine pH 7.5 (5.0-7.0)
[2023-03-08 20:27] LABS: Albumin 3.3 g/dL (3.4-5.0); Bilirubin Total 0.6 mg/dL (0.2-1.0); Protein, Total 7.7 g/dL (6.4-8.2); Troponin High Sensitivity 36.3 pg/mL (<58.9)
[2023-03-08 20:29] LABS: Potassium 2.6 mEq/L (3.5-5.1)
--- NOTE | 2023-03-08 21:01 | RAD REPORT ---
EXAM DESCRIPTION: CTAbdomen Pelvis W Contrast - 03/08/2023 8:46 pm CLINICAL HISTORY: ABD PAIN COMPARISON: Abdomen Pelvis W Contrast dated 03/06/2023; Abdomen Pelvis W Contrast dated 03/02/20 23; Chest For Pe Angio dated 03/06/2023 TECHNIQUE: CT of the abdomen and pelvis was performed. All CT scans are performed using dose optimization technique as appropriate and may include automated exposure control or mA/KV adjustment according to patient size. FINDINGS: Lower chest: Peripherally calcified breast prostheses. Coronary artery calcifications. Cir cumferentially thickened distal esophagus likely reflecting esophagitis. Endoscopy could better evalu ate. . Liver: No acute abnormality or suspicious lesions. Biliary: Cholecystectomy. Stomach: Gastric bypass. Duodenum: No significant focal abnormality. Pancreas: No significant abnormality. Spleen: No significant abnormality. Adrenal: No suspicious lesions. Kidney/ureter: No hydronephrosis. No renal calculi. Mildly atrophic left kidney. Retroperitoneum: No retroperitoneal adenopathy. Vascular: No aneurysm. Bowel: No significant focal abnormality. Peritoneum: No ascites or free air. Bladder: Grossly unremarkable. Reproductive: No adnexal masses. Bones: No acute fracture. Left hip arthroplasty . Other: Re- demonstrated fluid collection in the left gluteal musculature measuring approximately 5.5 cm which is likely postsurgical. There is also a small subcutaneous fluid collection along the latera l left hip which is likely postsurgical. IMPRESSION: No acute intra-abdominal or pelvic finding. Incidental findings as noted above. Overall, no significant change compared 03/06/2023.
--- NOTE | 2023-03-09 00:54 | EDPHYS ---
Physician Documentation [facility] Name: Reina Hartley Age: 67 yrs Sex: Female : 1955 Arrival Date: 03/08/2023 Time: 18:52 Bed 15 Private MD: ED Physician Feng Lerner HPI: 03/08 19:08 This 67 yrs old Female presents to ER via EMS with complaints of Chest Pain, ec2 Abdominal Pain. 19:08 Patient arrives today due to concern for chest and abdominal pain. Patient reports that ec2 she has been having abdominal pain for couple of days, states that the pain is constant, no specific alleviating or exacerbating factors. Patient reports no fevers or chills, does report some nausea. Patient reports some diarrhea symptoms. Patient also reports complaints of constipation. Denies any urinary complaints. Patient also with complaints of generalized chest pain without specific alleviating or exacerbating factors.. 20:54 Patient reports she has completed course of Macrobid starting on 02/21/2023 for recent sp4 UTI. . Historical: - Allergies: 18:58 Procardia; kd3 - PMHx: 18:58 diabetes mellitus; Hypertensive disorder; Myocardial infarction; Myocardial infarction; kd3 - PSHx: 18:58 breast augmentation; Cholecystectomy; Cholecystectomy; Gastric Bypass; hysterectomy; kd3 - Immunization history:: Adult Immunizations up to date. - Social history:: Smoking status: unknown. ROS: 19:08 Constitutional: as per hpi ec2 Exam: 19:08 Constitutional: GEN: NAD Head: atraumatic Eyes: EOMI Ears: External ears are ec2 normal. CV: regular rate LUNGS: no respiratory distress ABD: non-distended, soft, generally tender SKIN: no evidence of rashes MSK: no evidence of trauma NEURO: moves all extremities equally 03/09 00:38 ECG was reviewed by the Attending Physician. . He is EKG at 1955, sinus rhythm at a sp4 rate of 83, no ST elevation or depression, prolonged QT, inverted T wave V3, V4, V5 Vital Signs: 03/08 18:54 BP 193 / 109; Pulse 96; Resp 21; Temp 98.3(O); Pulse Ox 97% ; Weight 63.5 kg; Height 5 kd3 ft. 2 in. ; 20:03 BP 165 / 105; Pulse 96; Resp 24; Pulse Ox 100% on R/A; kd3 20:25 BP 185 / 92; Pulse 90; Resp 20; Pulse Ox 100% on R/A; kd3 21:16 BP 222 / 109; Pulse 85; Resp 16 S; Pulse Ox 99% on R/A; ha1 21:34 BP 200 / 107; Pulse 82; Resp 17 S; Pulse Ox 99% on R/A; ha1 22:11 BP 178 / 92; Pulse 89; Resp 17 S; Pulse Ox 97% on R/A; ha1 23:00 BP 184 / 98; Pulse 87; Resp 17 S; Pulse Ox 99% on R/A; ha1 03/09 00:02 BP 169 / 90; Pulse 89; Resp 17 S; Pulse Ox 97% on R/A; ha1 01:00 BP 165 / 85; Pulse 86; Resp 17 S; Pulse Ox 97% on R/A; ha1 03/08 18:54 Body Mass Index 25.61 (63.50 kg, 157.48 cm) kd3 MDM: 03/08 19:02 Patient medically screened. ec2 19:08 Data reviewed: vital signs. ED course: Patient arrives today due to concern for ec2 abdominal pain along with constipation and chest pain. Examination remarkable for nontoxic individual who has a generally tender abdomen. Will obtain lab work to evaluate for cardiac process as well as EKG and chest x-ray along with CT abdomen pelvis. Currently considering process such as small bowel obstruction, ACS.. 20:05 ED course: EKG independently reviewed and interpreted by me, shows normal sinus rhythm, ec2 rate of 83, no acute ST segment elevations, does have QTc prolongation at 498, does have T wave inversions noted in the anterolateral leads.. 20:08 Transition of care: After a detail discussion of the patient's case, care is ec2 transferred to Feng Lerner MD. 20:21 ED course: Chest X ray - EXAM DESCRIPTION: RAD - Chest Single View - 03/08/2023 7:33 pm sp4 CLINICAL HISTORY: CHEST PAIN COMPARISON: Abdomen 1 View (KUB) dated 03/04/2023; Chest Single View dated 03/02/2023; Chest Single View dated 02/04/2023; Chest Single View dated 12/06/2022 FINDINGS: Lines: None. Lungs: No evidence of edema or pneumonia. Pleural: No significant pleural effusions or pneumothorax. Cardiac: The heart size is within normal limits. Mediastinum: Within normal limits. Bones: No acute fractures. Other: None IMPRESSION: No acute cardiopulmonary disease.. 21:25 ED course: CT - EXAM DESCRIPTION: CTAbdomen Pelvis W Contrast - 03/08/2023 8:46 pm sp4 CLINICAL HISTORY: ABD PAIN COMPARISON: Abdomen Pelvis W Contrast dated 03/06/2023; Abdomen Pelvis W Contrast dated 03/02/2023; Chest For Pe Angio dated 03/06/2023 TECHNIQUE: CT of the abdomen and pelvis was performed. All CT scans are performed using dose optimization technique as appropriate and may include automated exposure control or mA/KV adjustment according to patient size. FINDINGS: Lower chest: Peripherally calcified breast prostheses. Coronary artery calcifications. Circumferentially thickened distal esophagus likely reflecting esophagitis. Endoscopy could better evaluate. . Liver: No acute abnormality or suspicious lesions. Biliary: Cholecystectomy. Stomach: Gastric bypass. Duodenum: No significant focal abnormality. Pancreas: No significant abnormality. Spleen: No significant abnormality. Adrenal: No suspicious lesions. Kidney/ureter: No hydronephrosis. No renal calculi. Mildly atrophic left kidney. Retroperitoneum: No retroperitoneal adenopathy. Vascular: No aneurysm. Bowel: No significant focal abnormality. Peritoneum: No ascites or free air. Bladder: Grossly unremarkable. Reproductive: No adnexal masses. Bones: No acute fracture. Left hip arthroplasty . Other: Re- demonstrated fluid collection in the left gluteal musculature measuring approximately 5.5 cm which is likely postsurgical. There is also a small subcutaneous fluid collection along the lateral left hip which is likely postsurgical. IMPRESSION: No acute intra-abdominal or pelvic finding. Incidental findings as noted above. Overall, no significant change compared 03/06/2023. . 21:26 ED course: CT report review - from 03/06/2023 - EXAM DESCRIPTION: CT - Chest For Pe sp4 Angio - 03/06/2023 1:09 pm CLINICAL HISTORY: CHEST PAIN COMPARISON: Chest For Pe Angio dated 12/06/2022; Chest Abd Pelvis Wo Con dated 11/26/2022 TECHNIQUE: Thin axial CT images of the chest were obtained following administration of 100 mL Isovue 370 IV contrast. Multiplanar reconstructions, and maximum intensity projection reconstructions were generated and reviewed. Exam utilizes a protocol for optimal evaluation of pulmonary arterial tree. All CT scans are performed using dose optimization technique as appropriate and may include automated exposure control or mA/KV adjustment according to patient size. FINDINGS: Pulmonary arteries are normal. No emboli or other suspicious finding. No acute or significant aorta findings. No mass or infiltrate in the lung parenchyma. No pleural thickening or pleural effusion. No pneumothorax. No abnormal mediastinal or hilar masses or lymphadenopathy seen. No chest wall mass or abnormal axilliary lymphadenopathy. Left 4th and 5th anterior and right 10th posterior healing rib fractures. IMPRESSION: No evidence of acute central pulmonary emboli. Left 4th and 5th anterior and right 10th posterior healing rib fractures.. ED course: CT abdomen from 03/06/2023- EXAM DESCRIPTION: CT - Abdomen Pelvis W Contrast - 03/06/2023 1:09 pm CLINICAL HISTORY: CONSTIPATION COMPARISON: Abdomen Pelvis W Contrast dated 03/02/2023; Chest For Pe Angio dated 03/06/2023 TECHNIQUE: Thin cut axial CT imaging of the abdomen and pelvis was performed following intravenous administration of 100 mL Isovue 300. Multiplanar reformats were generated and reviewed. All CT scans are performed using dose optimization technique as appropriate and may include automated exposure control or mA/KV adjustment according to patient size. FINDINGS: No suspicious findings in the lung bases. The liver, spleen, adrenal glands, and pancreas show no suspicious findings. Gallbladder was surgically removed. Symmetric renal function is seen with no hydronephrosis or suspicious renal mass. Sequelae of gastric bypass. No dilated bowel loops or bowel wall thickening. No free air, free fluid or inflammatory stranding. No hernia, mass or bulky lymphadenopathy. The urinary bladder is without significant finding. No suspicious bony findings. Left hip periprosthetic collection measuring 7.4 x3.5x 12.9 cm. Overlying subcutaneous 4.1 x 3.8 cm collection. These are stable. Stable compression deformities T11-L2. IMPRESSION: No acute intra-abdominal process. Stable findings as above. . 23:56 HEART Score: History: Moderately Suspicious (1), ECG: Non specific repolarization sp4 disturbance / LBTB / PM (1), Age: > or = 65 years (2), Risk Factors: > or = 3 Risk factors for atherosclerotic disease (2), Troponin: < or = 1 x Normal Limit (0), Total Score = 6. The patient was given aspirin in the Emergency Department. 03/09 00:39 Differential diagnosis: abnormal EKG, acute pericarditis, anxiety, coronary artery sp4 disease chest wall pain, congestive heart failure cholecystitis, esophagitis, gastritis. ED course: Recent admission from 03/02/2023 through 03/04/2023. Patient was admitted for abdominal pain, generalized abdominal pain, slow transit constipation, chest pains, chronic diabetes mellitus type 2, hypertension, and hypokalemia. Patient has history of type 2 diabetes mellitus, [id number], hypertension, history of prior PR with 3 stents. Patient reported persistent abdominal pains for 2 weeks and constipation. Nausea as well. Patient was admitted to [facility] for abdominal pain hypokalemia abnormal EKG and constipation. Patient received consultation from cardiology who advised medical management of coronary artery disease. Patient was also provided prescription for lactulose lidocaine patch pain. Discharged uneventfully with advised to see tire design engineer in 2 weeks. Patient's medications include [place] 7 every 4 hours as needed pain, lorazepam 0.5 every 8 as needed, albuterol as needed, metoprolol tartrate 25 twice daily, acetaminophen 650 as needed, docusate 200 daily, ferrous sulfate 325 daily, multivitamins daily, omeprazole 20 mg daily, polyethylene glycol as needed, salt tablets twice daily, clopidogrel 75 daily, insulin subcu as needed, lactulose 15 mL daily, lidocaine daily. New medications by prescriptions for clopidogrel 75 daily, lidocaine patch daily, and lactulose.. ED course: Based on a detailed workup today including 2 negative troponins, detailed record review from 2 days ago, patient is stable for discharge home with as needed nausea medication specifically ondansetron, as needed tramadol as well. Will recommend patient to attend paint pourer with [facility] in [place] . 03/08 19:07 Order name: CBC with Diff; Complete Time: 20:56 ec2 03/08 19:07 Order name: CMP; Complete Time: 20:29 ec2 03/08 19:07 Order name: Lipase; Complete Time: 20:29 ec2 03/08 19:07 Order name: Troponin HS; Complete Time: 20:29 ec2 03/08 19:07 Order name: UAM; Complete Time: 20:29 ec2 03/08 21:23 Order name: Troponin High Sensitivity; Complete Time: 23:55 sp4 03/08 19:07 Order name: CT Abd/Pelvis - IV Contrast Only; Complete Time: 21:21 ec2 03/08 19:07 Order name: XRAY Chest (1 view); Complete Time: 20:04 ec2 03/08 19:07 Order name: EKG; Complete Time: 19:08 ec2 03/08 19:07 Order name: IV Saline Lock; Complete Time: 20:00 ec2 03/08 19:07 Order name: Labs collected and sent; Complete Time: 20:00 ec2 03/08 19:07 Order name: Cardiac monitoring; Complete Time: 20:00 ec2 03/08 19:07 Order name: EKG - Nurse/Tech; Complete Time: 20:00 ec2 03/08 19:07 Order name: O2 Per Protocol; Complete Time: 20:00 ec2 03/08 19:07 Order name: O2 Sat Monitoring; Complete Time: 20:00 ec2 EC:38 Rate is 83 beats/min. Rhythm is regular, Normal Sinus Rhythm. QRS [place] is Normal. ND sp4 interval is normal. QRS interval is normal. QT interval is prolonged. No Q waves. T waves are Inverted in leads V3, V4, V5. No ST changes noted. Clinical impression: No evidence of ischemia. Interpreted by me. Reviewed by me. Administered Medications: 03/08 20:00 Drug: Famotidine IVP 20 mg IVP once; dilute with 10 mL 0.9% NaCl; give over 2 minutes kd3 Route: IVP; Site: right forearm; 20:00 Drug: Ondansetron IVP 4 mg IVP once; over 2 minutes Route: IVP; Site: left forearm; kd3 20:01 Drug: NS 0.9% IV 1000 ml IV at 1 bolus Per protocol; 1000 mL bolus Route: IV; Rate: 1 kd3 bolus; Site: left wrist; 20:55 CANCELLED (Duplicate Order): [id number] mg PO once sp4 21:00 Drug: Potassium Chloride PO 40 mEq PO once Route: PO; ha1 21:00 Drug: Potassium Chloride IV 20 mEq IV at calculated rate once; administer over 1-2 ha1 hours Route: IV; Rate: calculated rate; Site: right forearm; 21:04 Drug: fentaNYL (PF) IVP 100 mcg IVP once Route: IVP; Site: left wrist; kd3 21:30 Follow up: Response: No adverse reaction; Pain is decreased; RASS: Alert and Calm (0) ha1 21:05 Drug: Promethazine PO 25 mg PO once Route: PO; kd3 21:55 Drug: HydrALAZINE PO 50 mg PO once Route: PO; ha1 22:10 Follow up: Response: No adverse reaction; Blood pressure is lowered ha1 21:55 Drug: cloNIDine PO 0.1 mg PO once Route: PO; ha1 22:00 Follow up: Response: No adverse reaction ha1 21:55 Drug: Ondansetron IVP 4 mg IVP once; over 2 minutes Route: IVP; Site: right forearm; ha1 22:10 Follow up: Response: No adverse reaction; Nausea is decreased ha1 23:00 Drug: Magnesium Citrate PO Liquid 300 ml PO once Route: PO; ha1 03/09 01:30 Follow up: Response: No adverse reaction 1 03/08 23:30 Drug: metoCLOPramide IVP 10 mg IVP once; over 1 to 2 minutes Route: IVP; Site: right ha1 forearm; 03/09 00:00 Follow up: Response: No adverse reaction; Nausea is decreased ha1 00:06 Not Given (Physician Discretion): aspirinchewable tablet 324 mg PO once; 81 mg tablets ha1 x 4 01:15 Drug: HYDROcodone-acetaminophen PO 5 mg-325 mg 2 tabs PO once Route: PO; ha1 01:29 Follow up: Response: No adverse reaction; Pain is decreased; RASS: Alert and Calm (0) ha1 Disposition Summary: 03/09/23 00:54 Discharge Ordered Notes: Location: Home sp4 Problem: new sp4 Symptoms: have improved sp4 Condition: Stable sp4 Diagnosis - Chest pain, unspecified sp4 - Chronic abdominal pain, diffuse abdominal pain, nausea and vomiting, exacerbation sp4 of chronic pain Followup: sp4 - With: Private Physician - When: 5 - 6 days - Reason: Recheck today's complaints Discharge Instructions: - Discharge Summary Sheet sp4 - Nonspecific Chest Pain, Adult sp4 Forms: - Patient Portal Instructions sp4 Prescriptions: - Tramadol 50 mg Oral Tablet - take 1 tablet ORAL route every 8 hours as needed; 12 tablet; Refills: 0, sp4 Product Selection Permitted - ondansetron 8 mg Oral Tablet,disintegrating - take 1 tablet ORAL route every 8 hours PRN nausea; 30 tablet; Refills: 0, sp4 Product Selection Permitted Signatures: Dispatcher [employer] Eileen Buckley RN RN kd3 Narcisa Coleman RN RN ha1 Feng Lerner MD MD sp4 Nabeel Guardado MD MD ec2 Corrections: (The following items were deleted from the chart) 03/08 19:09 19:08 Patient arrives today due to concern for chest and abdominal pain. Patient ec2 reports that she has been having abdominal pain for couple of days, states that the pain is constant, no specific alleviating or exacerbating factors. Patient reports no fevers or chills, does report some nausea. Patient reports some diarrhea symptoms. Patient also reports complaints of constipation. Denies any urinary complaints.. ec2 20:55 20:55 metroNIDAZOLE PO 500 mg PO once ordered. sp4 sp4
--- NOTE | 2023-03-09 00:54 | ER ---
Nurse's Notes [facility] Name: Reina Hartley Age: 67 yrs Sex: Female : 1955 Arrival Date: 03/08/2023 Time: 18:52 Bed 15 Private MD: Diagnosis: Chest pain, unspecified;Chronic abdominal pain, diffuse abdominal pain, nausea and vomiting, exacerbation of chronic pain Presentation: 03/08 18:54 Chief complaint: EMS states: Pt called EMS for chest pain and abdominal pain. Pt was kd3 administered 324 ASA and 4 of Zofran IV in route. Pt states she has been vomiting since this morning and it looks like bile. PT vitals are stable. Pt is A fib on the monitor. Coronavirus screen: Vaccine status: Patient reports receiving the 2nd dose of the covid vaccine. Ebola Screen: No symptoms or risks identified at this time. Initial Sepsis Screen: Does the patient meet any 2 criteria? No. Patient's initial sepsis screen is negative. Does the patient have a suspected source of infection? No. Patient's initial sepsis screen is negative. Risk Assessment: Do you want to hurt yourself or someone else? Patient reports no desire to harm self or others. Onset of symptoms was March 08, 2023. 18:54 Method Of Arrival: EMS: [facility] kd3 18:54 Acuity: ANDREA 3 kd3 Triage Assessment: 18:58 General: Appears uncomfortable, Behavior is anxious. Pain: Complains of pain in chest kd3 and abdomen. Cardiovascular: Capillary refill < 3 seconds Patient's skin is warm and dry. Historical: - Allergies: 18:58 Procardia; kd3 - PMHx: 18:58 diabetes mellitus; Hypertensive disorder; Myocardial infarction; Myocardial infarction; kd3 - PSHx: 18:58 breast augmentation; Cholecystectomy; Cholecystectomy; Gastric Bypass; hysterectomy; kd3 - Immunization history:: Adult Immunizations up to date. - Social history:: Smoking status: unknown. Screenin:59 [facility] ED Fall Risk Assessment (Adult) History of falling in the last 3 months, kd3 including since admission No falls in past 3 months (0 pts) Confusion or Disorientation No (0 pts) Intoxicated or Sedated No (0 pts) Impaired Gait No (0 pts) Mobility Assist Device Used No (0 pt) Altered Elimination No (0 pt) Score/Fall Risk Level 0 - 2 = Low Risk Oriented to surroundings. Abuse screen: Denies threats or abuse. Denies injuries from another. Nutritional screening: No deficits noted. Tuberculosis screening: No symptoms or risk factors identified. Assessment: 18:59 General: Appears uncomfortable, Behavior is calm, cooperative. Pain: Complains of pain kd3 in chest and abdomen Pain does not radiate. Pain began gradually. 18:59 Neuro: Level of Consciousness is awake, alert, obeys commands, Oriented to person, kd3 place, time, situation. Cardiovascular: Patient's skin is warm and dry. 21:00 General: Appears uncomfortable, Behavior is cooperative. Pain: Complains of pain in ha1 abdomen Pain does not radiate. Pain currently is 9 out of 10 on a pain scale. Quality of pain is described as crampy, throbbing. Neuro: Level of Consciousness is awake, alert, obeys commands, Oriented to person, place, time, situation. Cardiovascular: Patient's skin is warm and dry. Respiratory: Airway is patent Respiratory effort is even, unlabored, Respiratory pattern is regular, symmetrical. GI: Abdomen is flat, non-distended, Bowel sounds present X 4 quads. Reports lower abdominal pain, upper abdominal pain, constipation, nausea. Derm: Skin is moist, Skin is pale. Musculoskeletal: Circulation, motion, and sensation intact. Reports left hip surgery couple of weeks ago. 21:30 Reassessment: Patient and/or family updated on plan of care and expected duration. Pain ha1 level reassessed. Patient is alert, oriented x 3, equal unlabored respirations, skin warm/dry/pink. pain 4/10. 22:10 Reassessment: Patient and/or family updated on plan of care and expected duration. Pain ha1 level reassessed. Patient is alert, oriented x 3, equal unlabored respirations, skin warm/dry/pink. 23:10 Reassessment: Patient and/or family updated on plan of care and expected duration. Pain ha1 level reassessed. Patient is alert, oriented x 3, equal unlabored respirations, skin warm/dry/pink. patient reports nausea notified Dr. Toney. 03/09 00:10 Reassessment: Patient and/or family updated on plan of care and expected duration. Pain ha1 level reassessed. Patient is alert, oriented x 3, equal unlabored respirations, skin warm/dry/pink. Vital Signs: 03/08 18:54 BP 193 / 109; Pulse 96; Resp 21; Temp 98.3(O); Pulse Ox 97% ; Weight 63.5 kg; Height 5 kd3 ft. 2 in. ; 20:03 BP 165 / 105; Pulse 96; Resp 24; Pulse Ox 100% on R/A; kd3 20:25 BP 185 / 92; Pulse 90; Resp 20; Pulse Ox 100% on R/A; kd3 21:16 BP 222 / 109; Pulse 85; Resp 16 S; Pulse Ox 99% on R/A; ha1 21:34 BP 200 / 107; Pulse 82; Resp 17 S; Pulse Ox 99% on R/A; ha1 22:11 BP 178 / 92; Pulse 89; Resp 17 S; Pulse Ox 97% on R/A; ha1 23:00 BP 184 / 98; Pulse 87; Resp 17 S; Pulse Ox 99% on R/A; ha1 03/09 00:02 BP 169 / 90; Pulse 89; Resp 17 S; Pulse Ox 97% on R/A; ha1 01:00 BP 165 / 85; Pulse 86; Resp 17 S; Pulse Ox 97% on R/A; ha1 03/08 18:54 Body Mass Index 25.61 (63.50 kg, 157.48 cm) kd3 ED Course: 03/08 18:54 Patient arrived in ED. kd3 18:54 Nabeel Guardado MD is Attending Physician. ec2 18:58 Triage completed. kd3 18:58 Arm band placed on right wrist. kd3 19:00 Patient has correct armband on for positive identification. Provided Education on:. kd3 Client placed on continuous cardiac and pulse oximetry monitoring. NIBP monitoring applied. 19:00 No provider procedures requiring assistance completed. Patient maintains SpO2 kd3 saturation greater than 95% on room air. 19:35 XRAY Chest (1 view) In Process Unspecified. EDMS 19:48 Eileen Arreaga, WALI is Primary Nurse. kd3 19:59 Maintain EMS IV. Dressing intact. Good blood return noted. Site clean \T\ dry. Gauge \T\ kd 3 site: 20 gauge right wrist . 20:00 UAM Sent. kd3 20:00 Troponin HS Sent. kd3 20:00 CBC with Diff Sent. kd3 20:00 CMP Sent. kd3 20:00 Lipase Sent. kd3 20:08 Attending Physician role handed off by Nabeel Guardado MD sp4 20:08 Feng Lerner MD is Attending Physician. sp4 20:48 CT Abd/Pelvis - IV Contrast Only In Process Unspecified. EDMS 03/09 01:33 IV discontinued, intact, bleeding controlled, No redness/swelling at site. Pressure ha1 dressing applied. Administered Medications: 03/08 20:00 Drug: Famotidine IVP 20 mg IVP once; dilute with 10 mL 0.9% NaCl; give over 2 minutes kd3 Route: IVP; Site: right forearm; 20:00 Drug: Ondansetron IVP 4 mg IVP once; over 2 minutes Route: IVP; Site: left forearm; kd3 20:01 Drug: NS 0.9% IV 1000 ml IV at 1 bolus Per protocol; 1000 mL bolus Route: IV; Rate: 1 kd3 bolus; Site: left wrist; 20:55 CANCELLED (Duplicate Order): [id number] mg PO once sp4 21:00 Drug: Potassium Chloride PO 40 mEq PO once Route: PO; ha1 21:00 Drug: Potassium Chloride IV 20 mEq IV at calculated rate once; administer over 1-2 ha1 hours Route: IV; Rate: calculated rate; Site: right forearm; 21:04 Drug: fentaNYL (PF) IVP 100 mcg IVP once Route: IVP; Site: left wrist; kd3 21:30 Follow up: Response: No adverse reaction; Pain is decreased; RASS: Alert and Calm (0) ha1 21:05 Drug: Promethazine PO 25 mg PO once Route: PO; kd3 21:55 Drug: HydrALAZINE PO 50 mg PO once Route: PO; ha1 22:10 Follow up: Response: No adverse reaction; Blood pressure is lowered ha1 21:55 Drug: cloNIDine PO 0.1 mg PO once Route: PO; ha1 22:00 Follow up: Response: No adverse reaction ha1 21:55 Drug: Ondansetron IVP 4 mg IVP once; over 2 minutes Route: IVP; Site: right forearm; ha1 22:10 Follow up: Response: No adverse reaction; Nausea is decreased ha1 23:00 Drug: Magnesium Citrate PO Liquid 300 ml PO once Route: PO; ha1 03/09 01:30 Follow up: Response: No adverse reaction ha1 03/08 23:30 Drug: metoCLOPramide IVP 10 mg IVP once; over 1 to 2 minutes Route: IVP; Site: right ha1 forearm; 03/09 00:00 Follow up: Response: No adverse reaction; Nausea is decreased ha1 00:06 Not Given (Physician Discretion): aspirinchewable tablet 324 mg PO once; 81 mg tablets ha1 x 4 01:15 Drug: HYDROcodone-acetaminophen PO 5 mg-325 mg 2 tabs PO once Route: PO; ha1 01:29 Follow up: Response: No adverse reaction; Pain is decreased; RASS: Alert and Calm (0) ha1 Medication: 03/08 19:00 VIS not applicable for this client. kd3 Outcome: 03/09 00:54 Discharge ordered by MD. sp4 01:33 Discharged to home via wheelchair, ha1 01:33 Condition: stable 01:33 Discharge instructions given to patient, family, Instructed on discharge instructions, follow up and referral plans. medication usage, Demonstrated understanding of instructions, follow-up care, medications, Prescriptions given X 2, 01:34 Patient left the ED. ha1 Signatures: Dispatcher [employer] Eileen Buckley RN RN kd3 Narcisa Coleman RN RN ha1 Feng Lerner MD MD sp4 Nabeel Guardado MD MD ec2
[2023-03-09 07:36] VITALS: TEMP 98.3
[2023-03-09 07:43] VITALS: BP 165/85; O2SAT 97
--- NOTE | 2023-03-10 13:26 | EKG ---
Test Date: 2023-03-08 Test Time: 19:55:00 Economist Research Assistant: LENNY MEASUREMENT RESULTS: Intervals: Rate: 83 DC: 150 QRSD: 88 QT: 424 QTc: 498 Gardners: P: 102 DC: 150 QRS: 61 T: 251 INTERPRETIVE STATEMENTS: Sinus rhythm with premature supraventricular complexes Marked T wave abnormality, consider anterolateral ischemia Prolonged QT Abnormal ECG Compared to ECG 03/06/2023 12:20:10 T-wave abnormality now present Prolonged QT interval now present Myocardial infarct finding no longer present ST (T wave) deviation no longer present Possible ischemia still present Electronically Signed On 03-10-23 13:22:00 COUNTERSINKER BALANCE SCREW HOLE by David Irby
== END ==
LOC: ER 18:52
DX: R07.89 Other chest pain (principal); R10.9 Unspecified abdominal pain; R11.2 Nausea with vomiting, unspecified; G89.29 Other chronic pain; E11.9 Type 2 diabetes mellitus without complications; I10 Essential (primary) hypertension; I25.2 Old myocardial infarction; Z98.82 Breast implant status; Z88.8 Allergy status to other drugs, medicaments and biological substances
CPT/HCPCS: 93005; 85025; 81001; 36415; 84484 ×2; 83690; 80053; 74177; 71045; Q9967

== ENCOUNTER 2023-03-11 11:28 | Inpatient (IN) | payer OTHER ==
[2023-03-11] MEDS ORDERED: ONDANSETRON 4 MG/2 ML VIAL ONE (12:36)
[2023-03-11] MEDS ORDERED: NA CHLORIDE 0.9% 1,000 ML ONE (12:36)
[2023-03-11 12:50] LABS: Absolute Lymphocytes (CBC) 1.1 K/uL (0.7-4.9); Lymphocytes % 11.6 % (15.3-44.8); MCV 80.9 fL (80-100); MPV 7.4 fL (7.6-11.3); Platelets 630 thou/uL (152-406)
[2023-03-11 13:21] LABS: Albumin 3.5 g/dL (3.4-5.0); Bilirubin Total 0.8 mg/dL (0.2-1.0); Protein, Total 7.5 g/dL (6.4-8.2)
[2023-03-11 13:22] LABS: Potassium 2.6 mEq/L (3.5-5.1)
[2023-03-11] MEDS ORDERED: POTASSIUM CL SA 10 MEQ TAB PO ONE (13:52)
[2023-03-11] MEDS ORDERED: KCL 20 MEQ/100 mL IVPB 100 ML IV ONE (13:53)
--- NOTE | 2023-03-11 13:56 | RAD REPORT ---
EXAM DESCRIPTION: CT - Abdomen Pelvis W Contrast - 03/11/2023 1:24 pm CLINICAL HISTORY: fall COMPARISON: Abdomen Pelvis W Contrast dated 03/08/2023; Abdomen Pelvis W Contrast dated 03/06/20 23; Abdomen Pelvis W Contrast dated 03/02/2023 TECHNIQUE: Thin cut axial CT imaging of the abdomen and pelvis was performed following intravenous a dministration of 100 mL Isovue 300. Multiplanar reformats were generated and reviewed. All CT scans are performed using dose optimization technique as appropriate and may include automated exposure control or mA/KV adjustment according to patient size. FINDINGS: Motion artifact particularly at the level of the upper abdomen limits evaluation. No suspicious findings in the lung bases. Small left diaphragmatic hernia containing fat. The liver, spleen, adrenal glands, and pancreas show no suspicious findings. Sequelae of gastric bypa ss and cholecystectomy. Symmetric renal function is seen with no hydronephrosis or suspicious renal mass. No dilated bowel loops or bowel wall thickening. No free air, free fluid or inflammatory stranding. N o hernia, mass or bulky lymphadenopathy. The urinary bladder is without significant finding. No suspicious bony findings. Multiple anterior wedge compression deformities at the lower thoracic an d upper lumbar spine, stable. Left total hip arthroplasty in place. Fluid collection overlying the le ft greater trochanter has decreased in size now measuring 5.4 x 1.6 cm in greatest axial dimensions c ompared to 5.5 x 2.7 cm on the prior exam. Overlying crescentic fluid collection in the subcutaneous tissues is also relatively decreased in size now measuring 1.3 cm in thickness compared to 2.5 cm on the prior exam. IMPRESSION: No acute intra-abdominal process. Decreased size of left hip region fluid collection overlying the left greater trochanter, and another smaller collection in the overlying subcutaneous soft tissues. These are suggestive of seromas.
[2023-03-11 14:35] LABS: Specific Gravity 1.028 (1.005-1.030); Urine Bacteria None Seen /HPF (<20); Urine Bilirubin NEGATIVE (Negative); Urine Blood Trace (Negative); Urine Clarity Turbid (Clear); Urine Color Light-Yellow (Yellow); Urine Crystals Unidentified Few /HPF (None Seen); Urine Glucose NEGATIVE (Negative); Urine Protein 1+ (Negative); Urine RBC <5 /HPF (None Seen); Urine Urobilinogen Normal (Normal); Urine pH 6.5 (5.0-7.0)
--- NOTE | 2023-03-11 14:45 | RAD REPORT ---
EXAM DESCRIPTION: RAD - Pelvis - 03/11/2023 2:27 pm CLINICAL HISTORY: fall COMPARISON: Pelvis dated 02/16/2023; Abdomen Pelvis W Contrast dated 03/11/2023 TECHNIQUE: Single AP view of the abdomen. FINDINGS: Bony pelvis is intact. Nonobstructive bowel gas pattern in the lower abdomen. Pelvic phleb oliths. Marginally calcified left donald pelvic 1.8 cm focus is stable compared to prior CTs, and may r epresent sequelae of an omental infarct. Skin karyna along the left pelvis/upper thigh. Left total h ip arthroplasty hardware in place. No significant bony abnormality. IMPRESSION: No acute osseus abnormality of the pelvis. Findings as above.
--- NOTE | 2023-03-11 14:45 | EDPHYS ---
Physician Documentation [facility] Name: Reina Hartley Age: 67 yrs Sex: Female : 1955 Arrival Date: 03/11/2023 Time: 11:28 Bed 19 Private MD: ED Physician Nabeel Guardado HPI: 03/11 13:05 This 67 yrs old Female presents to ER via Wheelchair with complaints of ec2 Nausea/Vomiting, Knee Pain, Diarrhea. 13:05 Patient arrives today for evaluation of abdominal pain with associated nausea, ec2 vomiting, diarrhea as well as knee pain. Patient states that she had a fall recently and is not having knee pain. Patient reports that she has been having decreased p.o. intake and is having bouts of diarrhea. Denies any fevers or chills, no cough or cold symptoms.. Historical: - Allergies: 11:31 Procardia; iw - PMHx: 11:31 diabetes mellitus; Hypertensive disorder; Myocardial infarction; iw - PSHx: 11:31 breast augmentation; Cholecystectomy; Gastric Bypass; hysterectomy; iw - Immunization history:: Client reports receiving the 2nd dose of the Covid vaccine, Pneumococcal vaccine is up to date, Flu vaccine is up to date. - Social history:: Smoking status: Patient reports the use of cigarette tobacco products, smokes one-half pack cigarettes per day. ROS: 13:05 Constitutional: as per hpi ec2 Exam: 13:05 Constitutional: GEN: NAD Head: atraumatic Eyes: EOMI Ears: External ears are ec2 normal. CV: regular rate LUNGS: no respiratory distress ABD: non-distended, soft, nontender, no guarding, not rigid SKIN: no evidence of rashes MSK: no evidence of trauma NEURO: moves all extremities equally Vital Signs: 11:29 BP 119 / 82; Pulse 98; Resp 16; Temp 97.9(O); Pulse Ox 99% on R/A; Weight 63.5 kg; iw Height 5 ft. 2 in. ; Pain 10/10; 13:00 BP 143 / 107; Pulse 105; Resp 18; Pulse Ox 98% on R/A; db 13:30 BP 123 / 86; Pulse 94; Resp 16; Pulse Ox 99% on R/A; db 14:00 BP 129 / 88; Pulse 105; Resp 18; Pulse Ox 100% on R/A; db 14:30 BP 152 / 86; Pulse 119; Resp 18; Pulse Ox 98% ; db 15:30 BP 150 / 115; Pulse 116; Resp 18; Pulse Ox 99% on R/A; db 16:30 BP 160 / 112; Pulse 104; Resp 18; Pulse Ox 98% on R/A; db 17:30 BP 150 / 93; Pulse 105; Resp 16; Pulse Ox 99% on R/A; db 18:30 BP 149 / 117; Pulse 111; Resp 18; Pulse Ox 100% on R/A; db 20:07 BP 104 / 71; Pulse 100; Resp 17; Pulse Ox 97% on R/A; tm6 11:29 Body Mass Index 25.60 (63.50 kg, 157.48 cm) iw 11:29 Pain Scale: Adult iw MDM: 11:52 Patient medically screened. ec2 13:05 Data reviewed: vital signs. ED course: Patient arrives today for evaluation abdominal ec2 pain with associated nausea, vomiting, diarrhea. Examination remarkable for well-appearing nontoxic dividual is otherwise in no acute distress who has a generally reassuring abdominal examination. Will obtain lab work, EKG, CT abdomen pelvis. Currently considering gastroenteritis, intra-abdominal infection, UTI. EKG independently reviewed and interpreted by me, shows atrial fibrillation with a rate of 115, no acute ST segment elevations, intervals are nonconcerning.. 13:39 ED course: Metabolic profile pertinent for hyponatremia with a sodium of 123, ec2 hypokalemia with potassium of 126, anion gap noted at 18.6. CBC is reassuring without leukocytosis, does have thrombocytosis. Lipase within normal ranges. Will supplement patient's potassium, additional crystalloid administration as well. . 14:02 ED course: CT abdomen pelvis shows no acute intra-abdominal process.. ec2 14:44 ED course: Given the patient's hypokalemia and hyponatremia will admit for continued ec2 fluid resuscitation. Discussed case with the hospitalist, pending admission.. 15:21 ED course: Patient with patella fracture noted, will place in knee immobilizer. Patient ec2 does not require emergent management of this and does not require orthopedic surgery consultation for this injury, can follow-up outpatient with orthopedic surgery.. 16:30 ED course: I discussed case with Dr. Spring, orthopedic surgery, who also did her left ec2 hip arthroplasty, agrees with plan of care to place patient in knee immobilizer with weightbearing as tolerated. Will proceed with admission.. 03/11 12:07 Order name: CBC with Diff ec2 03/11 12:07 Order name: CMP ec2 03/11 12:07 Order name: Lipase ec2 03/11 12:07 Order name: Urinalysis w/ reflexes ec2 03/11 12:18 Order name: SARS RAPID ec2 03/11 12:18 Order name: Influenza Screen (a \T\ B) ec2 03/11 13:23 Order name: Comprehensive Metabolic Panel; Complete Time: 13:39 EDMS 03/11 13:23 Order name: Lipase; Complete Time: 13:39 EDMS 03/11 13:26 Order name: CBC with Automated Diff; Complete Time: 13:39 EDMS 03/11 14:38 Order name: Urinalysis w/ reflexes; Complete Time: 14:41 EDMS 03/11 15:02 Order name: Influenza Screen (A ; Complete Time: 15:18 EDMS 03/11 15:06 Order name: SARS-COV-2 Antigen Rapid; Complete Time: 15:18 EDMS 03/11 16:54 Order name: BMP db 03/11 16:54 Order name: Magnesium db 03/11 18:16 Order name: Basic Metabolic Panel EDMS 03/11 18:18 Order name: Magnesium EDMS 03/11 20:21 Order name: Influenza Screen (A EDMS 03/11 12:07 Order name: CT Abd/Pelvis - IV Contrast Only ec2 03/11 12:07 Order name: Pelvis XRAY ec2 03/11 12:07 Order name: Femur Left XRAY ec2 03/11 12:07 Order name: Knee Left 3 View XRAY ec2 03/11 12:07 Order name: Tib Fib Left XRAY ec2 03/11 13:57 Order name: CT; Complete Time: 14:02 EDMS 03/11 14:45 Order name: RAD; Complete Time: 14:45 EDMS 03/11 14:47 Order name: RAD; Complete Time: 15:18 EDMS 03/11 14:48 Order name: RAD; Complete Time: 15:18 EDMS 03/11 12:07 Order name: EKG; Complete Time: 19:08 ec2 03/11 12:07 Order name: IV Saline Lock; Complete Time: 12:47 ec2 03/11 12:07 Order name: Labs collected and sent; Complete Time: 12:47 ec2 03/11 12:07 Order name: EKG - Nurse/Tech; Complete Time: 12:51 ec2 03/11 15:19 Order name: Knee Immobilizer; Complete Time: 18:59 ec2 Administered Medications: 12:45 Drug: NS 0.9% IV 1000 ml IV at 1 bolus Per protocol; 1000 mL bolus Route: IV; Rate: 1 db bolus; Site: right wrist; 12:45 Drug: Ondansetron IVP 4 mg IVP once; over 2 minutes Route: IVP; Site: right wrist; db 14:00 Drug: Potassium Chloride PO 40 mEq PO once Route: PO; db 14:00 Drug: Potassium Chloride IV 20 mEq IV at calculated rate once; administer over 1-2 db hours Route: IV; Rate: calculated rate; Site: right wrist; Disposition Summary: 03/11/23 14:45 Hospitalization Ordered Notes: Hospitalization Status: Inpatient Admission ec2 Provider: Bradley España ec2 Condition: Stable ec2 Problem: an acute exacerbation ec2 Symptoms: are unchanged ec2 Bed/Room Type: Standard ec2 Location: Telemetry/MedSurg (Inpatient)(03/11/23 18:27) eb Room Assignment: 219(03/11/23 18:27) eb Diagnosis - Hypo-osmolality and hyponatremia ec2 - Hypokalemia ec2 - Vomiting ec2 Forms: - Medication Reconciliation Form ec2 - SBAR form ec2 - Leadership Thank You Letter ec2 Signatures: Dispatcher [employer] Fany Nunez RN RN iw Botello, Elizabeth eb Benton, Danielle RN RN Nabeel Keith MD MD ec2 Corrections: (The following items were deleted from the chart) 11:32 11:31 Immunization history: Adult Immunizations not up to date, Pneumococcal vaccine is iw not up to date, Flu vaccine is up to date. iw 17:20 14:45 Telemetry/MedSurg (Inpatient) ec2 eb 17:20 14:45 ec2 eb 18:27 17:20 [facility] ER HOLD eb eb 18:27 17:20 ERHOLD- eb eb
--- NOTE | 2023-03-11 14:45 | ER ---
Nurse's Notes [facility] [place] Name: Reina Hartley Age: 67 yrs Sex: Female : 1955 Arrival Date: 03/11/2023 Time: 11:28 Bed 19 Private MD: Diagnosis: Hypo-osmolality and hyponatremia;Hypokalemia;Vomiting Presentation: 03/11 11:29 Chief complaint: Patient states: she has n/v X 3 days, she fell last night , has pain iw to left knee, was at [facility] for rehab s/p hip replacement and signed herself out a couple weeks ago. Coronavirus screen: At this time, the client does not indicate any symptoms associated with coronavirus-19. Ebola Screen: Patient negative for fever greater than or equal to 101.5 degrees Fahrenheit, and additional compatible Ebola Virus Disease symptoms Patient denies exposure to infectious person. Patient denies travel to an Ebola-affected area in the 21 days before illness onset. No symptoms or risks identified at this time. Initial Sepsis Screen: Does the patient meet any 2 criteria? No. Patient's initial sepsis screen is negative. Does the patient have a suspected source of infection? No. Patient's initial sepsis screen is negative. Risk Assessment: Do you want to hurt yourself or someone else? Patient reports no desire to harm self or others. Onset of symptoms was March 11, 2023. 11:29 Method Of Arrival: Wheelchair iw 11:29 Acuity: ANDREA 3 iw Historical: - Allergies: 11:31 Procardia; iw - PMHx: 11:31 diabetes mellitus; Hypertensive disorder; Myocardial infarction; iw - PSHx: 11:31 breast augmentation; Cholecystectomy; Gastric Bypass; hysterectomy; iw - Immunization history:: Client reports receiving the 2nd dose of the Covid vaccine, Pneumococcal vaccine is up to date, Flu vaccine is up to date. - Social history:: Smoking status: Patient reports the use of cigarette tobacco products, smokes one-half pack cigarettes per day. Screenin:48 [facility] ED Fall Risk Assessment (Adult) History of falling in the last 3 months, db including since admission Yes- fall prone (multiple falls) (3 pts) Confusion or Disorientation No (0 pts) Intoxicated or Sedated No (0 pts) Impaired Gait Yes (1 pt) Mobility Assist Device Used Yes (1 pt) Altered Elimination No (0 pt) Score/Fall Risk Level 3 or more points = High Risk Oriented to surroundings, Maintained a safe environment, Hourly rounding (assess needs \T\ fall precautionary measures) done, Apply high fall risk patient identification: yellow non skid footwear/ fall signage. Abuse screen: Denies threats or abuse. Denies injuries from another. Nutritional screening: No deficits noted. Tuberculosis screening: No symptoms or risk factors identified. Assessment: 13:15 Reassessment: Patient appears in no apparent distress at this time. Patient and/or db family updated on plan of care and expected duration. Pain level reassessed. Patient is alert, oriented x 3, equal unlabored respirations, skin warm/dry/pink. General: Appears in no apparent distress. uncomfortable, Behavior is cooperative, restless. Neuro: Level of Consciousness is awake, alert, obeys commands, Oriented to person, place, time, situation. 13:30 Reassessment: PATIENT CHANGED. NOTED LOOSE, SOFT STOOL. db 14:33 Reassessment: Patient appears in no apparent distress at this time. Patient and/or db family updated on plan of care and expected duration. Pain level reassessed. Patient is alert, oriented x 3, equal unlabored respirations, skin warm/dry/pink. General: Appears in no apparent distress. Pain: Complains of pain in left leg. Neuro: Level of Consciousness is awake, alert, obeys commands, Oriented to person, place, time, situation. Respiratory: Airway is patent Respiratory effort is even, unlabored, Respiratory pattern is regular, symmetrical. GI: Abdomen is flat, non-distended, Reports diarrhea, nausea, vomiting. 16:30 Reassessment: Patient appears in no apparent distress at this time. Patient and/or db family updated on plan of care and expected duration. Pain level reassessed. Patient is alert, oriented x 3, equal unlabored respirations, skin warm/dry/pink. 17:30 Reassessment: Patient appears in no apparent distress at this time. Patient and/or db family updated on plan of care and expected duration. Pain level reassessed. Patient is alert, oriented x 3, equal unlabored respirations, skin warm/dry/pink. 18:30 Reassessment: Patient appears in no apparent distress at this time. Patient and/or db family updated on plan of care and expected duration. Pain level reassessed. Patient is alert, oriented x 3, equal unlabored respirations, skin warm/dry/pink. Reassessment: KNEE IMMOBILIZER IN PLACE. NEURO INTAC. General: Appears in no apparent distress. comfortable, Behavior is calm, cooperative. Neuro: Level of Consciousness is awake, alert, obeys commands, Oriented to person, place, time, situation. 18:30 Reassessment: ATTEMPTED TO CALL UNIT FOR NURSE REPORT. UNSUCCESSFUL. db 19:32 Reassessment: attempted to call report. Floor RN said they needed to determine who will tm6 receive patient. Floor RN said she would call back in a few minutes. 20:08 Reassessment: No changes from previously documented assessment. report called to Marko joel RN. 20:19 Reassessment: patient cleaned from BM and placed in hospital gown. tm6 Vital Signs: 11:29 BP 119 / 82; Pulse 98; Resp 16; Temp 97.9(O); Pulse Ox 99% on R/A; Weight 63.5 kg; iw Height 5 ft. 2 in. ; Pain 10/10; 13:00 BP 143 / 107; Pulse 105; Resp 18; Pulse Ox 98% on R/A; db 13:30 BP 123 / 86; Pulse 94; Resp 16; Pulse Ox 99% on R/A; db 14:00 BP 129 / 88; Pulse 105; Resp 18; Pulse Ox 100% on R/A; db 14:30 BP 152 / 86; Pulse 119; Resp 18; Pulse Ox 98% ; db 15:30 BP 150 / 115; Pulse 116; Resp 18; Pulse Ox 99% on R/A; db 16:30 BP 160 / 112; Pulse 104; Resp 18; Pulse Ox 98% on R/A; db 17:30 BP 150 / 93; Pulse 105; Resp 16; Pulse Ox 99% on R/A; db 18:30 BP 149 / 117; Pulse 111; Resp 18; Pulse Ox 100% on R/A; db 20:07 BP 104 / 71; Pulse 100; Resp 17; Pulse Ox 97% on R/A; tm6 11:29 Body Mass Index 25.60 (63.50 kg, 157.48 cm) iw 11:29 Pain Scale: Adult iw ED Course: 11:28 Patient arrived in ED. iw 11:31 Triage completed. iw 11:31 Arm band placed on. iw 11:33 Nabeel Guardado MD is Attending Physician. ec2 12:32 Anitra Shaw, RN is Primary Nurse. db 13:00 Inserted saline lock: 22 gauge in right wrist, using aseptic technique. ,using aseptic db technique. BY FANY. 14:10 Urine collected: COVID swab sent to lab. Flu and/or RSV swab sent to lab. Straight cath db inserted, using sterile technique, Specimen obtained. 14:27 X-ray completed. Portable x-ray completed in exam room. Patient tolerated procedure mh1 well. 14:34 Patient has correct armband on for positive identification. Side rails up X 1. db 14:45 Bradley España MD is Hospitalizing Provider. ec2 16:16 [facility] is the patient [facility] Health Agency and would like to be contacted eb when patient is ready for discharge. 18:40 Provided Education on: ADMISSION. Client placed on continuous cardiac and pulse db oximetry monitoring. NIBP monitoring applied. Warm blanket given. 18:40 No provider procedures requiring assistance completed. Patient admitted, IV remains in db place. Administered Medications: 12:45 Drug: NS 0.9% IV 1000 ml IV at 1 bolus Per protocol; 1000 mL bolus Route: IV; Rate: 1 db bolus; Site: right wrist; 12:45 Drug: Ondansetron IVP 4 mg IVP once; over 2 minutes Route: IVP; Site: right wrist; db 14:00 Drug: Potassium Chloride PO 40 mEq PO once Route: PO; db 14:00 Drug: Potassium Chloride IV 20 mEq IV at calculated rate once; administer over 1-2 db hours Route: IV; Rate: calculated rate; Site: right wrist; Medication: 14:49 VIS not applicable for this client. db Outcome: 14:45 Decision to Hospitalize by Provider. ec2 18:40 Admitted to ER Hold. Please see [facility] for further documentation. db 18:40 Condition: stable 18:40 Instructed on the need for admit, 20:20 Admitted to Med/surg accompanied by tech, room 219, with chart, Report called to Marko joel 20:22 Patient left the ED. tm6 Signatures: Lorri Dc 1 Fany Deng RN RN Susi García Anitra Shaw, RN RN db Nabeel Guardado MD MD ec2 Choco Blackman RN RN tm6 Corrections: (The following items were deleted from the chart) 11:32 11:31 Immunization history: Adult Immunizations not up to date, Pneumococcal vaccine is iw not up to date, Flu vaccine is up to date. iw 12:48 11:29 BP 119 / 82; Pulse 98bpm; Resp 16bpm; Pulse Ox 99% RA; 63.5 kg; Height 5 ft. 2 iw in.; BMI: 25.6; Pain 12/21, Adult; iw
--- NOTE | 2023-03-11 14:47 | RAD REPORT ---
EXAM DESCRIPTION: RAD - Femur Left - 03/11/2023 2:25 pm CLINICAL HISTORY: fall COMPARISON: Femur Left dated 02/16/2023; Pelvis dated 03/11/2023; Tib Fib Left dated 03/11/2023 TECHNIQUE: Left femur, 2 views. FINDINGS: Cortical irregularities along the patella. Mild suprapatellar effusion. Left total hip art hroplasty in place, with radiodense material along the adjacent proximal to mid femoral shaft, may re late to cement or sequelae of revision of the arthroplasty. Alignment is satisfactory. Diffuse osteop enia which limits evaluation. There is no dislocation or periosteal reaction noted. No acute or susp icious bony finding. IMPRESSION: Cortical irregularities along the patella suggestive of minimally displaced fractures. M ild suprapatellar effusion. Sequelae of left total hip arthroplasty likely with revision, without other evidence of complications .
--- NOTE | 2023-03-11 14:48 | RAD REPORT ---
EXAM DESCRIPTION: RAD - Tib Fib Left - 03/11/2023 2:27 pm CLINICAL HISTORY: fall COMPARISON: No comparisons TECHNIQUE: Left tibia and fibula, 2 views. FINDINGS: Cortical irregularities along the anterior and posterior cortex of the patella on lateral view. Mild suprapatellar joint effusion. Deformity along the proximal shaft of the fibula suggestive of healed fracture. There is no dislocation or periosteal reaction noted. No foreign body or other soft tissue abnormalit y. IMPRESSION: Findings suggestive of minimally displaced fractures of the patella. Mild suprapatellar joint effusion. .
[2023-03-11 15:05] LABS: SARS-CoV-2 Antigen Rapid Res Negative (Negative)
--- NOTE | 2023-03-11 15:06 | P.HP ---
Certification for Inpatient Patient admitted to: Observation With expected LOS: <2 Midnights Patient will require the following post-hospital care: None Practitioner: I am a practitioner with admitting privileges, knowledge of patient current condition, hospital course, and medical plan of care. Services: Services provided to patient in accordance with Admission requirements found in Title 42 Section 412.3 of the Code of Federal Regulations Patient History Date of Service: 03/11/23 Reason for admission: fall, NVD, hyoponatremia, atrial fib History of Present Illness: 67-year-old female with a past medical history of diabetes, hypertension, myocardial infarction, gastric bypass, cholecystectomy, tobacco use presents to the emergency room with nausea vomiting diarrhea. She reports symptoms started over the last couple days worse over the last 24 hours. She denies fever chills, cough, shortness of breath, chest pain. She reports knee pain after a fall recently, no reported deformity, vital signs blood pressure 119/82, heart rate 105, respirations 18, 98% on room air, laboratory evaluation hyponatremia 123, no leukocytosis, CT of the abdomen pelvis no acute intra-abdominal process, hypokalemia, patient was treated with 1 L of normal saline, Zofran 4 mg, potassium replacement 20 mEq, IV 40 mEq p.o. Plan to admit for hypo and osmolality and hyponatremia, hypokalemia, nausea vomiting diarrhea, atrial fibrillation, .EKG Afib RVR rate 113 Allergies nifedipine [From Procardia] Allergy (Mild, Verified 11/27/22 11:23) UNKNOWN insulin regular Allergy (Verified 03/02/23 20:52) Nausea/Vomiting Home Medications: Hydrocodone 7.5/APAP 325 [[place] 7.5/325 mg*] 1 tab PO Q4H PRN tab 02/21/23 LORazepam [Ativan*] 0.5 mg PO Q8H PRN tab 02/21/23 Albuterol Neb [Proventil 0.083% Neb Soln] 2.5 mg NEB [id number] PRN amp 02/24/23 Metoprolol Tartrate [Lopressor*] 25 mg PO BID 6AM 6PM tab 02/24/23 Acetaminophen [Tylenol] 650 mg PO Q4HP PRN 03/02/23 Docusate [Colace Cap*] 200 mg PO DAILY 03/02/23 Ferrous Sulfate [Ferrous Sulfate*] 325 mg PO DAILY 03/02/23 Multivitamin with Minerals [Multivitamins with Minerals] 1 each PO DAILY 03/02/23 Omeprazole 20 mg PO DAILY 03/02/23 Polyethylene Glycol 3350 [Miralax] 17 gm PO DAILYPRN PRN 03/02/23 Sodium Chloride Tab [Sodium Chloride*] 1 gm PO BID 03/02/23 Clopidogrel Bisulfate [Plavix*] 75 mg PO DAILY 30 Days #30 tab 03/04/23 Insulin -Regular Human [Novolin -R*] See Protocol SQ ACHS ml 03/04/23 Lactulose [Cephulac*] 15 ml PO DAILY 30 Days #450 ml 03/04/23 Lidocaine [Dermacinrx Lidocan] 1 each TP DAILY 30 Days #30 patch 03/04/23 - Past Medical/Surgical History Diabetic: No -: Gastritis / Esophagitis -: s/p lap band -: CAD s/p PCI -: h/o alcohol abuse, with ?liver cirrhosis -: chronic intermittent diarrhea -: CVA vs TIA -: COPD (mild) -: s/p PCI (~2019) -: cholecystectomy -: Appendectomy -: Lap-Band surgery -: EGD/C-scope (early 2022) -: hip fracture Psychosocial/ Personal History: lives with daughter, [facility] - Family History Father -: Heart disease, Hypertension Mother -: Heart disease, Hypertension - Social History Smoking Status: Current some day smoker Alcohol use: No CD- Drugs: No Caffeine use: Yes Review of Systems PER HPI Physical Examination - Physical Exam General: Alert, In no apparent distress, Oriented x3 HEENT: Atraumatic, Normocephalic Neck: Supple, 2+ carotid pulse no bruit Respiratory: Clear to auscultation bilaterally, Normal air movement Cardiovascular: Normal pulses, Irregular heart rate/rhythm Capillary refill: <2 Seconds Gastrointestinal: Non-distended, Other (NVD, nontender) Musculoskeletal: Other (Left knee pain, tenderness with range of motion, ) Neurological: Normal speech, Normal strength at 5/5 x4 extr - Studies Laboratory Data (last 24 hrs) 03/11/23 03/11/23 12:34 12:34 WBC 9.20 Hgb 11.7 L Hct 34.0 L Plt Count 630 H Sodium 123 L Potassium 2.6 L* BUN 16 Creatinine 1.14 H Glucose 146 H Total Bilirubin 0.8 AST 19 ALT 13 Alkaline Phosphatase 135 H Lipase 18 Microbiology Data (last 24 hrs): 03/11/23 14:10 Nasopharnyx Influenza Type A Antigen Screen - Final 03/11/23 14:10 Nasopharnyx Influenza Type B Antigen Screen - Final Assessment and Plan - Plan Assessment plan Nausea vomiting diarrhea CT of the abdomen pelvis no acute intra-abdominal process, Nitrites negative ketones WBCs 2020 hyaline cast 5 COVID neg hypo and osmolality and hyponatremia hyponatremia 123, IV fluids nephrology consult, atrial fibrillation, RVR rate 115 resume home metoprolol appears new onset, Cardiology consult Thrombocytosis platelets 630 hypokalemia History of gastric bypass blood pressure 119/82, heart rate 105, respirations 18, 98% on room air, 1 L of normal saline, Zofran 4 mg, potassium replacement 20 mEq, IV 40 mEq p.o. Acute kidney injury likely prerenal BUN 16 creatinine 4 Fall with knee pain minimally displaced fractures of the patella. history hip fracture Fall precautions, as needed analgesics, PT eval Discussed case with ortho, recommends knee immobilizer with WBAT tib-fib x-ray pelvis x-ray femur x-ray IMPRESSION: Cortical irregularities along the patella suggestive of minimally displaced fractures. Mild suprapatellar effusion. Sequelae of left total hip arthroplasty likely with revision, without other evidence of complications.IMPRESSION: Findings suggestive of minimally displaced fractures of the patella. Mild suprapatellar joint effusion. . diabetes acck, SSI hypertension History myocardial infarction resume approp home meds tobacco use COPD, 1/2 ppd, educate on tobacco cessation, PRN nebs, resume home meds resides at home with family Diet ice chips Full code DVT SCDs Discharge Plan: Home - Advance Directives Does patient have a Living Will: No Does patient have a Durable POA for Healthcare: No - Code Status/Comfort Care Code Status: Full Code Critical Care: No Time Spent Managing Pts Care (In Minutes): 55
[2023-03-11] MEDS ORDERED: HEPARIN 5000 UNIT/ML 1 ML VIAL SQ SCH (17:00)
[2023-03-11] MEDS ORDERED: NA CHLORIDE 0.9% 1,000 ML IV SCH (17:00)
[2023-03-11] MEDS ORDERED: D50W 25 GM/50 ML SYRINGE IV PRN ×2 (17:05→17:14)
[2023-03-11] MEDS ORDERED: GLUCAGON 1 MG/VIAL IM PRN ×2 (17:05→17:14)
[2023-03-11] MEDS ORDERED: POLYETHYL GLY 3350 17 GM/DOSE PO PRN (17:09)
--- NOTE | 2023-03-11 17:16 | P.CNS ---
Date of Consult: 03/11/23 Reason for Consult: Hyponatremia, hypokalemia Requesting Physician: Kezia Drake Chief Complaint: Nausea, anorexia History of Present Illness: 67-year-old female with a past medical history of unspecified diabetes, chronic labile hypertension, hx of more recent myocardial infarction and PCI/stenting, gastric bypass, cholecystectomy, tobacco use who presented to the emergency room with N/V/anorexia over 3 days and some generalized abd pain. She was admitted prev with similar complaints in Nov. She has had recurrent, chronic hyponatremia and hypokalemia. She reports throwing up mostly bile. She denies any recent diuretic use. She was started on IVF and has been given PO and IV KCL in the ER Allergies nifedipine [From Procardia] Allergy (Mild, Verified 11/27/22 11:23) UNKNOWN insulin regular Allergy (Verified 03/02/23 20:52) Nausea/Vomiting Home Medications: Hydrocodone 7.5/APAP 325 [[place] 7.5/325 mg*] 1 tab PO Q4H PRN tab 02/21/23 LORazepam [Ativan*] 0.5 mg PO Q8H PRN tab 02/21/23 Albuterol Neb [Proventil 0.083% Neb Soln] 2.5 mg NEB [id number] PRN amp 02/24/23 Metoprolol Tartrate [Lopressor*] 25 mg PO BID 6AM 6PM tab 02/24/23 Acetaminophen [Tylenol] 650 mg PO Q4HP PRN 03/02/23 Docusate [Colace Cap*] 200 mg PO DAILY 03/02/23 Ferrous Sulfate [Ferrous Sulfate*] 325 mg PO DAILY 03/02/23 Multivitamin with Minerals [Multivitamins with Minerals] 1 each PO DAILY 03/02/23 Omeprazole 20 mg PO DAILY 03/02/23 Polyethylene Glycol 3350 [Miralax] 17 gm PO DAILYPRN PRN 03/02/23 Sodium Chloride Tab [Sodium Chloride*] 1 gm PO BID 03/02/23 Clopidogrel Bisulfate [Plavix*] 75 mg PO DAILY 30 Days #30 tab 03/04/23 Insulin -Regular Human [Novolin -R*] See Protocol SQ ACHS ml 03/04/23 Lactulose [Cephulac*] 15 ml PO DAILY 30 Days #450 ml 12/22/23 Lidocaine [Dermacinrx Lidocan] 1 each TP DAILY 30 Days #30 patch 03/04/23 - Past Medical/Surgical History Diabetic: No -: Gastritis / Esophagitis -: s/p lap band -: CAD s/p PCI -: h/o alcohol abuse, with ?liver cirrhosis -: chronic intermittent diarrhea -: CVA vs TIA -: COPD (mild) -: s/p PCI (~2019) -: cholecystectomy -: Appendectomy -: Lap-Band surgery -: EGD/C-scope (early 2022) Psychosocial/ Personal History: lives with daughter, recently moved to area - Family History Father Medical History: Heart disease, Hypertension Mother Medical History: Heart disease, Hypertension - Social History Smoking Status: Unknown if ever smoked Alcohol use: No CD- Drugs: No Caffeine use: Yes Review of Systems General: Weakness, Malaise Eyes: Unremarkable ENT: Nose Congestion Respiratory: Unremarkable Cardiovascular: Palpitations, As per HPI Gastrointestinal: Nausea, Vomiting, Abdominal Pain, As per HPI Musculoskeletal: Other (Lt knee pain, fall) Integumentary: Unremarkable Neurological: Weakness Lymphatics: Unremarkable Physical Examination General: Cooperative, Mild distress HEENT: Atraumatic, Normocephalic Neck: Supple Respiratory: Normal air movement, Other (No rhonchi) Cardiovascular: Other (Tachy, irregular, cardiac murmur) Gastrointestinal: Soft and benign, Non-distended, No guarding Musculoskeletal: No contractures, No tenderness, Other (Lt knee with mild swelling, deformity) Integumentary: No rashes Neurological: Normal speech, Normal tone Laboratory Data (last 24 hrs) 03/11/23 03/11/23 12:34 12:34 WBC 9.20 Hgb 11.7 L Hct 34.0 L Plt Count 630 H Sodium 123 L Potassium 2.6 L* BUN 16 Creatinine 1.14 H Glucose 146 H Total Bilirubin 0.8 AST 19 ALT 13 Alkaline Phosphatase 135 H Lipase 18 Conclusions/Impression: A/P) 1. Acute on chronic hypotonic hyponatremia, mod to severe, in the setting of recurrent hypovolemia, GI losses, poor PO solute intake, other. Low random Mari and elevated Uosm when prev assessed in Nov. 2. No rapid correction of Na on isotonic IVF with suppression of osmotic trigger for ADH seen prev but will cont to monitor closely 3. Will follow Na levels serially and adjust isotonic IVF accordingly. Given severe hypokalemia, will switch IVF to NS with 40 meq KCL 4. Severe hypokalemia 2nd to GI losses, total K depletion +/- secondary hyperaldosteronism with HTN/other -will cont to replete K, will check Mg level. Will place on ACEi or ARB after vol repletion 5. Stage 1 LUNA in the setting of above mentioned -trend 6. Abdominal pain, N/V w/u per primary team. 7. Report of left renal artery calcification on prior non contrast CT suggestive of high grade JOSE ALEJANDRO, pt has hx of atherosclerotic vascular disease. No renal asymmetry. No specific reports of renovascular HTN. Monitor BP during admission. F/u post hydration Cr levels. Gonzalo Irving MD, KENYATTAN
[2023-03-11] MEDS ORDERED: D10W 125 ML IV PRN (17:29)
[2023-03-11] MEDS ORDERED: NS KCL 40MEQ 40 MEQ/1,000 ML BAG IV SCH (18:00)
[2023-03-11] MEDS: METOPROLOL TAR 25 MG TAB PO SCH (18:00)
[2023-03-11 18:15] LABS: Potassium 3.5 mEq/L (3.5-5.1)
[2023-03-11] MEDS ORDERED: METOPROLOL TAR 25 MG TAB ONE (19:11)
[2023-03-11] MEDS: CALCIUM CARBONATE CHEW 500MG TAB PO PRN (21:40)
[2023-03-11] MEDS: INSULIN REGULAR (HUMAN) 100 UNIT/ML SQ SCH (21:40)
[2023-03-11] MEDS: HYDROCODONE/APAP 7.5/325 MG TAB PO PRN (21:40)
[2023-03-11] MEDS ORDERED: NS KCL 20MEQ 20 MEQ/1,000 ML BAG IV SCH (22:00)
[2023-03-11 22:44] VITALS: BMI 25.6
[2023-03-11] MEDS: LORAZEPAM 0.5 MG TABLET PO PRN (22:48)
[2023-03-11] MEDS: ONDANSETRON 4 MG/2 ML VIAL IV PRN (22:49)
[2023-03-11] MEDS: ALBUTEROL 2.5 MG/3 ML NEB SOL NEB PRN (23:09)
[2023-03-12] MEDS ORDERED: MORPHINE 2 MG/ML SYR IV ONE (00:26)
[2023-03-12] MEDS ORDERED: SIMETHICONE 80 MG CHEWABLE TAB PO ONE (00:30)
[2023-03-12] MEDS ORDERED: PANTOPRAZOLE 40MG TABLET PO ONE (01:00)
[2023-03-12] MEDS: ACETAMINOPHEN 500 MG TAB PO PRN (02:24)
--- NOTE | 2023-03-12 02:33 | P.PN ---
Date of Service: 03/12/23 Ms. Hartley complained of increased pain to her scapular area and some indigestion per her Nurse. States the Sun she has been receiving had not really been that helpful. Orders placed for Morphine 2mg IV x 1 as BP soft with SBP 105. Simethicone 240mg chewable and one extra dose Protonix 40mg IV.
[2023-03-12 03:49] LABS: Absolute Lymphocytes (CBC) 1.7 K/uL (0.7-4.9); Lymphocytes % 20.2 % (15.3-44.8); MCV 81.8 fL (80-100); MPV 7.6 fL (7.6-11.3); RBC Red Blood Cell Count 3.18 M/uL (3.86-4.86)
[2023-03-12 03:56] LABS: Platelets 412 thou/uL (152-406)
[2023-03-12 04:00] LABS: Albumin 2.9 g/dL (3.4-5.0); Bilirubin Total 0.5 mg/dL (0.2-1.0)
[2023-03-12] MEDS ORDERED: POTASSIUM CL SA 10 MEQ TAB PO ONE (06:00)
[2023-03-12] MEDS: METOPROLOL TAR 25 MG TAB PO SCH ×2 (06:18→17:24)
[2023-03-12] MEDS: PANTOPRAZOLE 40MG TABLET PO SCH (06:18)
[2023-03-12] MEDS ORDERED: INSULIN LISPRO 100 UNIT/ML SQ SCH (07:30)
[2023-03-12] MEDS: INSULIN REGULAR (HUMAN) 100 UNIT/ML SQ SCH ×4 (07:30→21:00)
[2023-03-12] MEDS ORDERED: INFLUENZA VACCINE (for 6+ mo) 0.5 ML DOSE IMVAC ONE (08:00)
[2023-03-12] MEDS: MULTIVITAMIN TAB PO SCH (08:19)
[2023-03-12] MEDS: NICOTINE 14 MG/PAT TD SCH (08:19)
[2023-03-12] MEDS: CLOPIDOGREL 75 MG TABLET PO SCH (08:19)
[2023-03-12] MEDS: CALCIUM CARBONATE CHEW 500MG TAB PO PRN ×2 (08:19→21:06)
[2023-03-12] MEDS: HYDROCODONE/APAP 7.5/325 MG TAB PO PRN ×2 (08:20→15:32)
[2023-03-12] MEDS ORDERED: ENOXAPARIN 40 MG/0.4 ML SQ SCH ×2 (09:00→18:00)
[2023-03-12] MEDS ORDERED: POTASSIUM 25 MEQ EFFERV TAB PO ONE ×2 (09:01→21:00)
[2023-03-12] MEDS ORDERED: DICYCLOMINE HCL 10 MG CAP PO PRN (09:43)
[2023-03-12] MEDS ORDERED: CARBOXYMETHYLCELLULOSE SODIUM 0.5% 15 ML OPTH PRN (11:04)
[2023-03-12] MEDS ORDERED: FAMOTIDINE 20 MG TAB PO PRN (11:04)
[2023-03-12] MEDS ORDERED: POTASSIUM 25 MEQ EFFERV TAB ONE (11:13)
[2023-03-12 12:59] LABS: Magnesium 1.9 mg/dL (1.6-2.4); Potassium 4.1 mEq/L (3.5-5.1)
[2023-03-12] MEDS: ALBUTEROL 2.5 MG/3 ML NEB SOL NEB PRN (13:28)
--- NOTE | 2023-03-12 15:25 | P.PN ---
Subjective Date of Service: 03/12/23 Chief Complaint: fall, NVD, hyoponatremia, atrial fib resting in bed, no acute distress, reports pain to RLE worse with range of motion - Physical Exam General: Alert, In no apparent distress, Oriented x3 HEENT: Atraumatic, Normocephalic Neck: Supple, 2+ carotid pulse no bruit Respiratory: Clear to auscultation bilaterally, Normal air movement Cardiovascular: Normal pulses, Irregular heart rate/rhythm Capillary refill: <2 Seconds Gastrointestinal: Non-distended, Other (NVD, nontender) Musculoskeletal: Other (Left knee pain, tenderness with range of motion, ) Neurological: Normal speech, Normal strength at 5/5 x4 extr <Kezia Drake - Last Filed: 03/12/23 15:34> Date of Service: 03/12/23 <Bradley España - Last Filed: 03/12/23 17:42> Review of Systems per HPI <Kezia Drake - Last Filed: 03/12/23 15:34> Physical Examination - Vital Signs Temperature: 97.4 F Blood Pressure: 96/60 Pulse: 85 Respirations: 16 Pulse Ox (%): 99 - Studies Laboratory Data (last 24 hrs) 03/11/23 03/11/23 12:07 12:07 WBC Cancelled Hgb Cancelled Hct Cancelled Plt Count Cancelled Sodium Cancelled Potassium Cancelled BUN Cancelled Creatinine Cancelled Glucose Cancelled Total Bilirubin Cancelled AST Cancelled ALT Cancelled Alkaline Phosphatase Cancelled Lipase Cancelled Microbiology Data (last 24 hrs): 03/11/23 14:10 Nasopharnyx Influenza Type A Antigen Screen - Final 03/11/23 14:10 Nasopharnyx Influenza Type B Antigen Screen - Final <Kezia Drake - Last Filed: 03/12/23 15:34> - Studies Laboratory Data (last 24 hrs) 03/11/23 03/11/23 12:07 12:07 WBC Cancelled Hgb Cancelled Hct Cancelled Plt Count Cancelled Sodium Cancelled Potassium Cancelled BUN Cancelled Creatinine Cancelled Glucose Cancelled Total Bilirubin Cancelled AST Cancelled ALT Cancelled Alkaline Phosphatase Cancelled Lipase Cancelled Microbiology Data (last 24 hrs): 03/11/23 14:10 Nasopharnyx Influenza Type A Antigen Screen - Final 03/11/23 14:10 Nasopharnyx Influenza Type B Antigen Screen - Final <Bradley España - Last Filed: 03/12/23 17:42> Assessment And Plan - Plan Assessment plan Nausea vomiting diarrhea improved, CT of the abdomen pelvis no acute intra-abdominal process, Nitrites negative ketones WBCs 2020 hyaline cast 5 COVID neg advance diet as tolerated hypo and osmolality and hyponatremia Acute kidney injury likely prerenal hyponatremia 126->125->123-> IV fluids per nephrology nephrology consult, BUN 16 creatinine 4 NEPHROLOGY 1. Acute on chronic hypotonic hyponatremia, mod to severe, in the setting of recurrent hypovolemia, GI losses, poor PO solute intake, other. Low random Mari and elevated Uosm when prev assessed in Nov. 2. No rapid correction of Na on isotonic IVF with suppression of osmotic trigger for ADH seen prev but will cont to monitor closely 3. Will follow Na levels serially and adjust isotonic IVF accordingly. Given severe hypokalemia, will switch IVF to NS with 40 meq KCL 4. Severe hypokalemia 2nd to GI losses, total K depletion +/- secondary hyperaldosteronism with HTN/other -will cont to replete K, will check Mg level. Will place on ACEi or ARB after vol repletion 5. Stage 1 LUNA in the setting of above mentioned -trend 6. Abdominal pain, N/V w/u per primary team. 7. Report of left renal artery calcification on prior non contrast CT suggestive of high grade JOSE ALEJANDRO, pt has hx of atherosclerotic vascular disease. No renal asymmetry. No specific reports of renovascular HTN. Monitor BP during admission. F/u post hydration Cr levels. atrial fibrillation, RVR rate 115 resume home metoprolol appears new onset, Cardiology consult Thrombocytosis platelets 630 hypokalemia 3.5->3.0->K 4.1 serial BMP, Mag History of gastric bypass blood pressure 119/82, heart rate 105, respirations 18, 98% on room air, 1 L of normal saline, Zofran 4 mg, potassium replacement 20 mEq, IV 40 mEq p.o. Fall with knee pain minimally displaced fractures of the patella. history hip fracture Fall precautions, as needed analgesics, PT eval Discussed case with ortho, recommends knee immobilizer with WBAT tib-fib x-ray pelvis x-ray femur x-ray IMPRESSION: Cortical irregularities along the patella suggestive of minimally displaced fractures. Mild suprapatellar effusion. Sequelae of left total hip arthroplasty likely with revision, without other evidence of complications.IMPRESSION: Findings suggestive of minimally displaced fractures of the patella. Mild suprapatellar joint effusion. . diabetes acck, SSI hypertension History myocardial infarction resume approp home meds tobacco use COPD, 1/2 ppd, educate on tobacco cessation, PRN nebs, resume home meds resides at home with family Diet ice chips Full code DVT SCDs Discharge Plan: Home - Code Status/Comfort Care Code Status: Full Code Critical Care: No Time Spent Managing PTS Care (In Minutes): 35 <Kezia Drake - Last Filed: 03/12/23 15:34> Physician Review: Patient Assessed, Agree with Above Assessment and Plan Physician Review Additional Text: She remains hyponatremic. Nephrology consulted for assistance with electrolyte management. In regards to her atrial fibrillation, we will start her on therapeutic dose enoxaparin. Appreciate Cardiology recommendations. Bradley España MD <Bradley España - Last Filed: 03/12/23 17:42>
[2023-03-12 17:11] LABS: Magnesium 1.8 mg/dL (1.6-2.4); Potassium 3.7 mEq/L (3.5-5.1)
[2023-03-12] MEDS: SODIUM CHLORIDE 1 GM TAB PO SCH (17:42)
[2023-03-12] MEDS: ENOXAPARIN 60 MG/0.6 ML SQ SCH (18:00)
--- NOTE | 2023-03-12 18:26 | PN ---
Date of Progress Note: 03/12/2023 Subjective: The patient was seen and examined at bedside. Vital signs have been reviewed and are st able. She is complaining of pain in her left knee and her elbow. Objective: HEENT: Atraumatic head. Lungs: Clear to auscultation. Abdomen: Soft. Extremities: Show no evidence of edema. Laboratory Data: Showing sodium of 123, potassium of 4.1, chloride of 93. BUN and creatinine are st able. CBC showing stable hemoglobin, hematocrit, and platelet count. Current Medications: Include albuterol p.r.n., dicyclomine, Lovenox for deep vein thrombosis prophyl axis, lorazepam p.r.n., and potassium. IV fluids have been discontinued. 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 The patient has been evaluated in the past and has been treate d as SIADH. At this time, I will place the patient on salt tablets and fluid restriction and protein supplementation and monitor her closely. 2.Hypokalemia, has been corrected. 3.Abdominal pain, currently stable. 4.Left renal artery calcification with possible renal artery stenosis. Avoid further hypotensive ep isodes. Plan: Overall, the patient is clinically stable. Volume status seems to have corrected. Sodium con tinues to be low. I will place the patient on salt tablets, fluid restriction, and protein supplementation and monitor her closely. VV/MODL Voice ID: [id number] Report ID: [id number]
[2023-03-12] MEDS: LORAZEPAM 0.5 MG TABLET PO PRN (21:24)
[2023-03-12 22:20] LABS: Magnesium 1.8 mg/dL (1.6-2.4); Potassium 4.1 mEq/L (3.5-5.1)
[2023-03-13] MEDS: HYDROCODONE/APAP 7.5/325 MG TAB PO PRN ×2 (03:48→12:51)
[2023-03-13 04:05] LABS: Absolute Lymphocytes (CBC) 1.3 K/uL (0.7-4.9); Hematocrit 24.5 % (36.0-45.0); Lymphocytes % 20.6 % (15.3-44.8); MCV 82.3 fL (80-100); MPV 7.6 fL (7.6-11.3); Platelets 309 thou/uL (152-406); RBC Red Blood Cell Count 2.98 M/uL (3.86-4.86)
[2023-03-13 04:32] LABS: Albumin 2.8 g/dL (3.4-5.0); Bilirubin Total 0.4 mg/dL (0.2-1.0); Magnesium 2.1 mg/dL (1.6-2.4); Potassium 3.9 mEq/L (3.5-5.1); Protein, Total 5.9 g/dL (6.4-8.2)
[2023-03-13] MEDS: METOPROLOL TAR 25 MG TAB PO SCH ×2 (05:24→17:16)
[2023-03-13] MEDS: PANTOPRAZOLE 40MG TABLET PO SCH (05:24)
[2023-03-13] MEDS: ENOXAPARIN 60 MG/0.6 ML SQ SCH ×2 (05:24→17:03)
[2023-03-13] MEDS ORDERED: POTASSIUM CL SA 10 MEQ TAB PO ONE (06:00)
[2023-03-13] MEDS: LORAZEPAM 0.5 MG TABLET PO PRN ×2 (06:10→14:34)
[2023-03-13] MEDS: INSULIN REGULAR (HUMAN) 100 UNIT/ML SQ SCH ×4 (07:30→21:00)
[2023-03-13] MEDS: MULTIVITAMIN TAB PO SCH (08:09)
[2023-03-13] MEDS: SODIUM CHLORIDE 1 GM TAB PO SCH ×2 (08:09→17:03)
[2023-03-13] MEDS: CLOPIDOGREL 75 MG TABLET PO SCH (08:09)
[2023-03-13] MEDS: NICOTINE 14 MG/PAT TD SCH (08:11)
--- NOTE | 2023-03-13 08:14 | P.PN ---
Subjective Date of Service: 03/13/23 Chief Complaint: fall, NVD, hyoponatremia, atrial fib resting in bed, pain controlled with PRN meds, no acute distress, reports pain to RLE worse with range of motion non compliant with fluid restriction - Physical Exam General: Alert, In no apparent distress, Oriented x3 HEENT: Atraumatic, Normocephalic Neck: Supple, 2+ carotid pulse no bruit Respiratory: Clear to auscultation bilaterally, Normal air movement Cardiovascular: Normal pulses, Irregular heart rate/rhythm Capillary refill: <2 Seconds Gastrointestinal: Non-distended, Other (NVD, nontender) Musculoskeletal: Other (Left knee pain, tenderness with range of motion, ) Neurological: Normal speech, Normal strength at 5/5 x4 extr <Kezia Drake - Last Filed: 03/13/23 14:08> Date of Service: 03/13/23 <Bradley España - Last Filed: 03/13/23 18:13> Review of Systems per HPI <Kezia Drake - Last Filed: 03/13/23 14:08> Physical Examination - Vital Signs Temperature: 97.2 F Blood Pressure: 126/75 Pulse: 99 Respirations: 17 Pulse Ox (%): 100 - Studies Microbiology Data (last 24 hrs): 03/11/23 14:10 Clean Catch Urine [place] Count - Final No growth. 03/11/23 14:10 Clean Catch Urine - Final No growth. <Kezia Drake - Last Filed: 03/13/23 14:08> - Studies Microbiology Data (last 24 hrs): 03/11/23 14:10 Clean Catch Urine [place] Count - Final No growth. 03/11/23 14:10 Clean Catch Urine - Final No growth. <Bradley España - Last Filed: 03/13/23 18:13> Assessment And Plan - Plan Assessment plan Nausea vomiting diarrhea improved, CT of the abdomen pelvis no acute intra-abdominal process, Nitrites negative ketones WBCs 2020 hyaline cast 5 COVID neg advance diet as tolerated hypo and osmolality and hyponatremia improving Acute kidney injury likely prerenal hyponatremia 126->125->123->129 IV fluids per nephrology nephrology consult, BUN 16 creatinine 4 fluid restriction, pt non compliant with fluid restriction resume po sodium NEPHROLOGY 1. Acute on chronic hypotonic hyponatremia, mod to severe, in the setting of recurrent hypovolemia, GI losses, poor PO solute intake, other. Low random Mari and elevated Uosm when prev assessed in Nov. 2. No rapid correction of Na on isotonic IVF with suppression of osmotic trigger for ADH seen prev but will cont to monitor closely 3. Will follow Na levels serially and adjust isotonic IVF accordingly. Given severe hypokalemia, will switch IVF to NS with 40 meq KCL 4. Severe hypokalemia 2nd to GI losses, total K depletion +/- secondary hyperaldosteronism with HTN/other -will cont to replete K, will check Mg level. Will place on ACEi or ARB after vol repletion 5. Stage 1 LUNA in the setting of above mentioned -trend 6. Abdominal pain, N/V w/u per primary team. 7. Report of left renal artery calcification on prior non contrast CT suggestive of high grade JOSE ALEJANDRO, pt has hx of atherosclerotic vascular disease. No renal asymmetry. No specific reports of renovascular HTN. Monitor BP during admission. F/u post hydration Cr levels. atrial fibrillation RVR controlled tele, resume home metoprolol appears new onset, Cardiology consult lovenox 1 mg/kg, Lopressor 25 mg po BID A-fib rate 87 Will need to discuss anticoagulation at discharge Thrombocytosis platelets 630 hypokalemia improving 3.5->3.0->K 4.1 serial BMP, Mag History of gastric bypass blood pressure 119/82, heart rate 105, respirations 18, 98% on room air, 1 L of normal saline, Zofran 4 mg, potassium replacement 20 mEq, IV 40 mEq p.o. Fall with knee pain minimally displaced fractures of the patella. history hip fracture Fall precautions, as needed analgesics, PT eval/OT eval Discussed case with ortho, recommends knee immobilizer with WBAT tib-fib x-ray pelvis x-ray femur x-ray IMPRESSION: Cortical irregularities along the patella suggestive of minimally displaced fractures. Mild suprapatellar effusion. Sequelae of left total hip arthroplasty likely with revision, without other evidence of complications.IMPRESSION: Findings suggestive of minimally displaced fractures of the patella. Mild suprapatellar joint effusion. . diabetes acck, SSI hypertension History myocardial infarction resume approp home meds tobacco use COPD stable 1/2 ppd, educate on tobacco cessation, PRN nebs, resume home meds resides at home with family Diet ice chips Full code DVT SCDs Discharge Plan: Home - Code Status/Comfort Care Code Status: Full Code Critical Care: No Time Spent Managing PTS Care (In Minutes): 35 <Kezia Drake - Last Filed: 03/13/23 14:08> Physician Review: Patient Assessed, Agree with Above Assessment and Plan Physician Review Additional Text: He sodium has not improved significantly. Per RN, she is drinking a significant amount of fluids, including 3 Dr. Peppers, 3 teas, and an 800 mL bottle of water over the last 12 hour shift. Per Nephrology, there was concern for SIADH. 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 Will place on a fluid restriction. Appreciate Nephrology recommendations. Bradley España M.D. <Bradley España - Last Filed: 03/13/23 18:13>
[2023-03-13] MEDS: MORPHINE 2 MG/ML SYR IV PRN ×3 (10:37→23:25)
[2023-03-13 12:00] LABS: Magnesium 1.8 mg/dL (1.6-2.4); Potassium 4.3 mEq/L (3.5-5.1)
--- NOTE | 2023-03-13 12:46 | RAD REPORT ---
EXAM DESCRIPTION: CT - C Spine Wo Con - 03/13/2023 12:37 pm CLINICAL HISTORY: PAIN COMPARISON: <Comparisons> FINDINGS: The cervical vertebral body heights are maintained. 3 mm degenerative anterolisthesis is p resent of C3 on 4. Disc thinning with small posterior osteophytes present mid cervical levels. No evidence of acute cervical spine fracture or subluxation. Prevertebral soft tissues are normal in thickness. Carotid atherosclerosis is noted, greater on the l eft. IMPRESSION: Moderate midcervical degenerative changes are present. 3 mm degenerative anterolisthesis seen of C3 on 4. No acute fracture or subluxation suspected. All CT scans are performed using dose optimization technique as appropriate and may include automated exposure control or mA/KV adjustment according to patient size.
[2023-03-13] MEDS: UREA 15 GM POWDER PACKET PO SCH (12:59)
[2023-03-13] MEDS: LOPERAMIDE HCL 2 MG CAPSULE PO PRN (15:15)
--- NOTE | 2023-03-13 23:24 | P.PN ---
Date of Service: 03/13/23 Vital Signs Temp Pulse Resp BP Pulse Ox 97.4 F 88 18 121/74 100 03/13/23 16:00 03/13/23 17:16 03/13/23 16:00 03/13/23 17:16 03/13/23 16:00 Medications Acetaminophen (Acetaminophen 500 Mg Tab) 500 mg PO Q4HP PRN PRN Reason: Pain scale 2-4 (Mild) Last Admin: 03/12/23 02:24 Dose: 500 mg Hydrocodone Bitart/Acetaminophen (Hydrocodone/Apap 7.5/325 Mg Tab) 1 tab PO Q6H PRN PRN Reason: Pain scale 5-7 (Moderate) Last Admin: 03/13/23 12:51 Dose: 1 tab Albuterol Sulfate (Albuterol 2.5 Mg/3 Ml Neb [place]) 2.5 mg NEB [id number] PRN PRN Reason: SHORTNESS OF BREATH Stop: 03/20/23 17:09 Last Admin: 03/12/23 13:28 Dose: 2.5 mg Artificial Tears (Carboxymethylcellulose Sodium 0.5% 15 Ml) 2 drops OPTH BID PRN PRN Reason: dry eye Calcium Carbonate/Glycine (Calcium Carbonate Chew 500mg Tab) 500 mg PO QID PRN PRN Reason: INDIGESTION Last Admin: 03/12/23 21:06 Dose: 500 mg Clopidogrel Bisulfate (Clopidogrel 75 Mg Tablet) 75 mg PO DAILY [facility] Last Admin: 03/13/23 08:09 Dose: 75 mg Dicyclomine HCl (Dicyclomine Hcl 10 Mg Cap) 10 mg PO TID PRN PRN Reason: ABDOMINAL CRAMPS Last Admin: 03/13/23 06:33 Dose: 10 mg Enoxaparin Sodium (Enoxaparin 60 Mg/0.6 Ml) 60 mg SQ Q12H [facility] Last Admin: 03/13/23 17:03 Dose: 60 mg Famotidine (Famotidine 20 Mg Tab) 20 mg PO BID PRN; Protocol PRN Reason: ABDOMINAL PAIN Last Admin: 03/12/23 12:09 Dose: 20 mg Glucagon (Glucagon 1 Mg/Vial) 1 mg IM 1X PRN; Protocol PRN Reason: HYPOGLYCEMIA Dextrose (Dextrose 10% Water Iv Soln.) 125 mls @ 0 mls/hr IV PRN PRN; Protocol PRN Reason: HYPOGLYCEMIA Insulin Human Regular (Insulin Regular (Human) 100 Unit/Ml) 0 unit SQ ACHS [facility]; Protocol Last Admin: 03/13/23 21:00 Dose: Not Given Loperamide HCl (Loperamide Hcl 2 Mg Capsule) 2 mg PO Q4H PRN PRN Reason: DIARRHEA Last Admin: 03/13/23 15:15 Dose: 2 mg Lorazepam (Lorazepam 0.5 Mg Tablet) 0.5 mg PO Q8H PRN PRN Reason: ANXIETY Last Admin: 03/13/23 14:34 Dose: 0.5 mg Metoprolol Tartrate (Metoprolol Tar 25 Mg Tab) 25 mg PO BID 6AM 6PM [facility] Last Admin: 03/13/23 17:16 Dose: 25 mg Morphine Sulfate (Morphine 2 Mg/Ml Syr) 2 mg IV Q6H PRN PRN Reason: Pain scale 8-10 (Severe) Last Admin: 03/13/23 17:04 Dose: 2 mg Multivitamins/Minerals (Multivitamin Tab) 1 tab PO DAILY [facility] Last Admin: 03/13/23 08:09 Dose: 1 tab Nicotine (Nicotine 14 Mg/Pat) 14 mg TD DAILY [facility] Last Admin: 03/13/23 08:11 Dose: 14 mg Ondansetron HCl (Ondansetron 4 Mg/2 Ml Vial) 4 mg IV Q6HP PRN PRN Reason: NAUSEA / VOMITING Last Admin: 03/11/23 22:49 Dose: 4 mg Pantoprazole Sodium (Pantoprazole 40mg Tablet) 40 mg PO DAILYAC [facility]; Protocol Last Admin: 03/13/23 05:24 Dose: 40 mg Polyethylene Glycol (Polyethyl Gly 3350 17 Gm/Dose) 17 gm PO DAILY PRN PRN Reason: CONSTIPATION Sodium Chloride (Sodium Chloride 1 Gm Tab) 2 gm PO BIDWM [facility] Last Admin: 03/13/23 17:03 Dose: 2 gm Urea (Urea 15 Gm Powder Packet) 30 gm PO DAILY [facility] Last Admin: 03/13/23 12:59 Dose: 30 gm Microbiology Results 03/11/23 14:10 Clean Catch Urine [place] Count - Final No growth. 03/11/23 14:10 Clean Catch Urine - Final No growth. 03/11/23 14:10 Nasopharnyx Influenza Type A Antigen Screen - Final 03/11/23 14:10 Nasopharnyx Influenza Type B Antigen Screen - Final Assessment/ Plan: Nephrology No dyspnea No chest pain Fair appetite Left hip and knee pain No acute events overnight Vitals, medications, blood work and imaging reviewed in the chart. NAD. NCAT. MMM. Neck supple. Normal respiratory effort. RRR. Abd ND. No C/C. LE Edema none. No rash. AAO. Normal speech. CKD I with Proteinuria -No NSAIDs Hyponatremia -Continue salt tab -Start Urea daily Hypokalemia -Replete prn HTN with CKD -Continue Metoprolol DM II with CKD -RISS Hypoalbuminemia -Recommend protein supplementation Anemia in chronic illness -Monitor H&H -PRBC prn Case reviewed with Dr. España
[2023-03-13] MEDS: ONDANSETRON 4 MG/2 ML VIAL IV PRN (23:25)
[2023-03-13] MEDS: CALCIUM CARBONATE CHEW 500MG TAB PO PRN (23:26)
[2023-03-14] MEDS: HYDROCODONE/APAP 7.5/325 MG TAB PO PRN ×4 (03:18→19:44)
[2023-03-14 03:22] LABS: Hematocrit 22.4 % (36.0-45.0); MCV 83.6 fL (80-100); MPV 7.9 fL (7.6-11.3); Platelets 286 thou/uL (152-406); RBC Red Blood Cell Count 2.67 M/uL (3.86-4.86)
[2023-03-14 03:36] LABS: AST/SGOT 14 U/L (15-37); Albumin 2.6 g/dL (3.4-5.0); Alkaline Phosphatase 97 U/L (45-117); BUN Blood Urea Nitrogen 22 mg/dL (7-18); Bicarbonate 25 mEq/L (21-32); Bilirubin Total 0.3 mg/dL (0.2-1.0); Glomerular Filtration Rate 90 ml/min (=/>90); Glucose Level 93 mg/dL (74-106); Magnesium 1.8 mg/dL (1.6-2.4); Protein, Total 5.5 g/dL (6.4-8.2); Sodium Level 129 mEq/L (136-145)
[2023-03-14 03:48] LABS: ALT/SGPT < 10 U/L (13-56)
[2023-03-14] MEDS: LORAZEPAM 0.5 MG TABLET PO PRN ×2 (04:33→19:44)
[2023-03-14] MEDS: METOPROLOL TAR 25 MG TAB PO SCH ×2 (06:10→18:06)
[2023-03-14] MEDS: ENOXAPARIN 60 MG/0.6 ML SQ SCH (06:11)
[2023-03-14] MEDS: PANTOPRAZOLE 40MG TABLET PO SCH (06:11)
[2023-03-14] MEDS ORDERED: MAGNESIUM SULFATE 1 gm IVPB 1 GM/100 ML BAG IV ONE (06:26)
[2023-03-14] MEDS: INSULIN REGULAR (HUMAN) 100 UNIT/ML SQ SCH ×4 (07:30→21:00)
[2023-03-14] MEDS: SODIUM CHLORIDE 1 GM TAB PO SCH ×2 (08:00→18:06)
[2023-03-14] MEDS: CLOPIDOGREL 75 MG TABLET PO SCH (08:00)
[2023-03-14] MEDS: NICOTINE 14 MG/PAT TD SCH (08:00)
[2023-03-14] MEDS: MULTIVITAMIN TAB PO SCH (08:00)
[2023-03-14] MEDS: LOPERAMIDE HCL 2 MG CAPSULE PO PRN (08:05)
[2023-03-14] MEDS: UREA 15 GM POWDER PACKET PO SCH (08:19)
[2023-03-14] MEDS: ALBUTEROL 2.5 MG/3 ML NEB SOL NEB PRN (08:42)
[2023-03-14] MEDS ORDERED: POTASSIUM 25 MEQ EFFERV TAB PO ONE (09:00)
--- NOTE | 2023-03-14 10:30 | P.PN ---
Subjective Date of Service: 03/14/23 Chief Complaint: fall, NVD, hyoponatremia, atrial fib resting in bed, pain controlled with PRN meds, no acute distress, reports pain to RLE worse with range of motion noncompliant with fluid restriction - Physical Exam General: Alert, In no apparent distress, Oriented x3 HEENT: Atraumatic, Normocephalic Neck: Supple, 2+ carotid pulse no bruit Respiratory: Clear to auscultation bilaterally, Normal air movement Cardiovascular: Normal pulses, Irregular heart rate/rhythm Capillary refill: <2 Seconds Gastrointestinal: Non-distended, Other (NVD, nontender) Musculoskeletal: Other (Left knee pain, tenderness with range of motion, ) Neurological: Normal speech, Normal strength at 5/5 x4 extr <Kezia Drake - Last Filed: 03/14/23 18:40> Date of Service: 03/14/23 <Alessandra Ryder - Last Filed: 03/14/23 18:48> Review of Systems per HPI <Kezia Drake - Last Filed: 03/14/23 18:40> Physical Examination - Vital Signs Temperature: 97.6 F Blood Pressure: 119/65 Pulse: 82 Respirations: 18 Pulse Ox (%): 100 - Studies Microbiology Data (last 24 hrs): 03/11/23 14:10 Clean Catch Urine [place] Count - Final No growth. 03/11/23 14:10 Clean Catch Urine - Final No growth. <Kezia Drake - Last Filed: 03/14/23 18:40> Assessment And Plan - Plan Assessment plan Nausea vomiting diarrhea improved, CT of the abdomen pelvis no acute intra-abdominal process, Nitrites negative ketones WBCs 2020 hyaline cast 5 COVID neg advance diet as tolerated hypo and osmolality and hyponatremia improving Acute kidney injury likely prerenal hyponatremia 126->125->123->129 IV fluids per nephrology nephrology consult, BUN 16 creatinine 4 fluid restriction, pt non compliant with fluid restriction resume po sodium NEPHROLOGY 1. Acute on chronic hypotonic hyponatremia, mod to severe, in the setting of recurrent hypovolemia, GI losses, poor PO solute intake, other. Low random Mari and elevated Uosm when prev assessed in Nov. 2. No rapid correction of Na on isotonic IVF with suppression of osmotic trigger for ADH seen prev but will cont to monitor closely 3. Will follow Na levels serially and adjust isotonic IVF accordingly. Given severe hypokalemia, will switch IVF to NS with 40 meq KCL 4. Severe hypokalemia 2nd to GI losses, total K depletion +/- secondary hyperaldosteronism with HTN/other -will cont to replete K, will check Mg level. Will place on ACEi or ARB after vol repletion 5. Stage 1 LUNA in the setting of above mentioned -trend 6. Abdominal pain, N/V w/u per primary team. 7. Report of left renal artery calcification on prior non contrast CT suggestive of high grade JOSE ALEJANDRO, pt has hx of atherosclerotic vascular disease. No renal asymmetry. No specific reports of renovascular HTN. Monitor BP during admission. F/u post hydration Cr levels. atrial fibrillation RVR controlled tele, resume home metoprolol appears new onset, Cardiology consult lovenox 1 mg/kg, Lopressor 25 mg po BID A-fib rate 87 Will need to discuss anticoagulation at discharge Thrombocytosis platelets 630 hypokalemia improving 3.5->3.0->K 4.1-> 3.0 serial BMP, Mag History of gastric bypass blood pressure 119/82, heart rate 105, respirations 18, 98% on room air, 1 L of normal saline, Zofran 4 mg, potassium replacement 20 mEq, IV 40 mEq p.o. Fall with knee pain minimally displaced fractures of the patella. history hip fracture Fall precautions, as needed analgesics, PT eval/OT eval Discussed case with ortho, recommends knee immobilizer with WBAT tib-fib x-ray pelvis x-ray femur x-ray IMPRESSION: Cortical irregularities along the patella suggestive of minimally displaced fractures. Mild suprapatellar effusion. Sequelae of left total hip arthroplasty likely with revision, without other evidence of complications.IMPRESSION: Findings suggestive of minimally displaced fractures of the patella. Mild suprapatellar joint effusion. . diabetes acck, SSI hypertension History myocardial infarction resume approp home meds tobacco use COPD stable 1/2 ppd, educate on tobacco cessation, PRN nebs, resume home meds resides at home with family Diet Fluid restriction for hyponatremia Full code DVT lovenox Time Spent Managing PTS Care (In Minutes): 35 <Kezia Drake - Last Filed: 03/14/23 18:40> - Plan Pt seen and examined. I agree with the note by the ADMINISTRATIVE PROGRAM SPECIALIST. Continue prn pain med and PT <Alessandra Ryder - Last Filed: 03/14/23 18:48>
[2023-03-14] MEDS: MORPHINE 2 MG/ML SYR IV PRN (17:32)
[2023-03-14] MEDS: ACETAMINOPHEN 500 MG TAB PO PRN (17:32)
--- NOTE | 2023-03-14 18:39 | P.DS ---
Admission Date: 03/11/23 Discharge Date: 03/14/23 Reason for Admission: fall, NVD, hyoponatremia, atrial fib Brief History of Present Illness: 67-year-old female with a past medical history of diabetes, hypertension, myocardial infarction, gastric bypass, cholecystectomy, tobacco use presents to the emergency room with nausea vomiting diarrhea. She reports symptoms started over the last couple days worse over the last 24 hours. She denies fever chills, cough, shortness of breath, chest pain. She reports knee pain after a fall recently, no reported deformity, vital signs blood pressure 119/82, heart rate 105, respirations 18, 98% on room air, laboratory evaluation hyponatremia 123, no leukocytosis, CT of the abdomen pelvis no acute intra-abdominal process, hypokalemia, patient was treated with 1 L of normal saline, Zofran 4 mg, potassium replacement 20 mEq, IV 40 mEq p.o. Plan to admit for hypo and osmolality and hyponatremia, hypokalemia, nausea vomiting diarrhea, atrial fibrillation, .EKG Afib RVR rate 113 - Physical Exam General: Alert, In no apparent distress, Oriented x3 HEENT: Atraumatic, Normocephalic Neck: Supple, 2+ carotid pulse no bruit Respiratory: Clear to auscultation bilaterally, Normal air movement Cardiovascular: Normal pulses, Irregular heart rate/rhythm Capillary refill: <2 Seconds Gastrointestinal: Non-distended, Other (NVD, nontender) Musculoskeletal: Other (Left knee pain, tenderness with range of motion, ) Neurological: Normal speech, Normal strength at 5/5 x4 extr Hospital Course: - Plan Assessment plan Nausea vomiting diarrhea improved, CT of the abdomen pelvis no acute intra-abdominal process, Nitrites negative ketones WBCs 2020 hyaline cast 5 COVID neg advance diet as tolerated hypo and osmolality and hyponatremia improving Acute kidney injury likely prerenal hyponatremia 126->125->123->129 IV fluids per nephrology nephrology consult, BUN 16 creatinine 4 fluid restriction, pt non compliant with fluid restriction resume po sodium NEPHROLOGY 1. Acute on chronic hypotonic hyponatremia, mod to severe, in the setting of recurrent hypovolemia, GI losses, poor PO solute intake, other. Low random Mari and elevated Uosm when prev assessed in Nov. 2. No rapid correction of Na on isotonic IVF with suppression of osmotic trigger for ADH seen prev but will cont to monitor closely 3. Will follow Na levels serially and adjust isotonic IVF accordingly. Given severe hypokalemia, will switch IVF to NS with 40 meq KCL 4. Severe hypokalemia 2nd to GI losses, total K depletion +/- secondary hyperaldosteronism with HTN/other -will cont to replete K, will check Mg level. Will place on ACEi or ARB after vol repletion 5. Stage 1 LUNA in the setting of above mentioned -trend 6. Abdominal pain, N/V w/u per primary team. 7. Report of left renal artery calcification on prior non contrast CT suggestive of high grade JOSE ALEJANDRO, pt has hx of atherosclerotic vascular disease. No renal asymmetry. No specific reports of renovascular HTN. Monitor BP during admission. F/u post hydration Cr levels. atrial fibrillation RVR controlled tele, resume home metoprolol appears new onset, Cardiology consult lovenox 1 mg/kg, Lopressor 25 mg po BID A-fib rate 87 Will need to discuss anticoagulation at discharge Thrombocytosis platelets 630 hypokalemia improving 3.5->3.0->K 4.1-> 3.0 serial BMP, Mag History of gastric bypass blood pressure 119/82, heart rate 105, respirations 18, 98% on room air, 1 L of normal saline, Zofran 4 mg, potassium replacement 20 mEq, IV 40 mEq p.o. Fall with knee pain minimally displaced fractures of the patella. history hip fracture Fall precautions, as needed analgesics, PT eval/OT eval Discussed case with ortho, recommends knee immobilizer with WBAT tib-fib x-ray pelvis x-ray femur x-ray IMPRESSION: Cortical irregularities along the patella suggestive of minimally displaced fractures. Mild suprapatellar effusion. Sequelae of left total hip arthroplasty likely with revision, without other evidence of complications.IMPRESSION: Findings suggestive of minimally displaced fractures of the patella. Mild suprapatellar joint effusion. . <Kezia Drake - Last Filed: 03/14/23 18:38> Admission Date: 03/11/23 Discharge Date: 03/15/23 - Problems (1) Atrial fibrillation Status: Acute (2) Hypokalemia Status: Acute (3) Hyponatremia Status: Acute (4) DM type 2 (diabetes mellitus, type 2) Status: Chronic Qualifiers: Diabetes mellitus shelter insulin use: without manager intermediate use Diabetes mellitus complication status: with diabetic arthropathy Brief History of Present Illness: Discharged on 03/15/2023 Hospital Course: Discharged on 03/15/2023 <Bina Alarcon - Last Filed: 03/15/23 10:33> Admission Date: 03/11/23 Discharge Date: 03/15/23 Hospital Course: Pt seen and examined. i agree with the note by the SEWER CONTRACTOR. Ok to discharge pt, Continue wear left knee brace <Alessandra Ryder - Last Filed: 03/15/23 15:05> Disposition: DC HOME/HOME HEALTH CARE Discharge Condition: GOOD Vital Signs/Physical Exam: Temp Pulse Resp BP Pulse Ox 97.6 F 82 18 119/65 100 03/14/23 13:48 03/14/23 18:06 03/14/23 13:48 03/14/23 18:06 03/14/23 13:48 Laboratory Data at Discharge: WBC 6.00 thou/uL (4.3-10.9) 03/14/23 01:42 Hgb 7.6 g/dL (12.0-15.0) L D 03/14/23 01:42 Hct 22.4 % (36.0-45.0) L 03/14/23 01:42 Plt Count 286 thou/uL (152-406) 03/14/23 01:42 Sodium 129 mEq/L (136-145) L 03/14/23 01:42 Potassium 3.0 mEq/L (3.5-5.1) L D 03/14/23 01:42 BUN 22 mg/dL (7-18) H 03/14/23 01:42 Creatinine 0.73 mg/dL (0.55-1.02) 03/14/23 01:42 Glucose 93 mg/dL (74-106) 03/14/23 01:42 Magnesium 1.8 mg/dL (1.6-2.4) 03/14/23 01:42 Total Bilirubin 0.3 mg/dL (0.2-1.0) 03/14/23 01:42 AST 14 U/L (15-37) L 03/14/23 01:42 ALT < 10 U/L (13-56) L 03/14/23 01:42 Alkaline Phosphatase 97 U/L (45-117) 03/14/23 01:42 Lipase 18 U/L (13-75) 03/11/23 12:34 <Kezia Drake - Last Filed: 03/14/23 18:38> Vital Signs/Physical Exam: Temp Pulse Resp BP Pulse Ox 98.5 F 94 H 16 144/84 H 99 03/15/23 04:00 03/15/23 05:53 03/15/23 05:53 03/15/23 05:53 03/15/23 05:53 Laboratory Data at Discharge: WBC 6.00 thou/uL (4.3-10.9) 03/14/23 01:42 Hgb 7.6 g/dL (12.0-15.0) L D 03/14/23 01:42 Hct 22.4 % (36.0-45.0) L 03/14/23 01:42 Plt Count 286 thou/uL (152-406) 03/14/23 01:42 Sodium 128 mEq/L (136-145) L 03/15/23 07:37 Potassium 3.9 mEq/L (3.5-5.1) 03/15/23 07:37 BUN 12 mg/dL (7-18) 03/15/23 07:37 Creatinine 0.62 mg/dL (0.55-1.02) 03/15/23 07:37 Glucose 115 mg/dL (74-106) H 03/15/23 07:37 Magnesium 1.9 mg/dL (1.6-2.4) 03/15/23 07:37 Total Bilirubin 0.3 mg/dL (0.2-1.0) 03/14/23 01:42 AST 14 U/L (15-37) L 03/14/23 01:42 ALT < 10 U/L (13-56) L 03/14/23 01:42 Alkaline Phosphatase 97 U/L (45-117) 03/14/23 01:42 Lipase 18 U/L (13-75) 03/11/23 12:34 <Bina Alarcon - Last Filed: 03/15/23 10:33> Vital Signs/Physical Exam: Temp Pulse Resp BP Pulse Ox 97.7 F 69 18 119/97 H 100 03/15/23 08:00 03/15/23 08:00 03/15/23 08:00 03/15/23 08:00 03/15/23 08:00 Laboratory Data at Discharge: WBC 6.00 thou/uL (4.3-10.9) 03/14/23 01:42 Hgb 7.6 g/dL (12.0-15.0) L D 03/14/23 01:42 Hct 22.4 % (36.0-45.0) L 03/14/23 01:42 Plt Count 286 thou/uL (152-406) 03/14/23 01:42 Sodium 128 mEq/L (136-145) L 03/15/23 07:37 Potassium 3.9 mEq/L (3.5-5.1) 03/15/23 07:37 BUN 12 mg/dL (7-18) 03/15/23 07:37 Creatinine 0.62 mg/dL (0.55-1.02) 03/15/23 07:37 Glucose 115 mg/dL (74-106) H 03/15/23 07:37 Magnesium 1.9 mg/dL (1.6-2.4) 03/15/23 07:37 Total Bilirubin 0.3 mg/dL (0.2-1.0) 03/14/23 01:42 AST 14 U/L (15-37) L 03/14/23 01:42 ALT < 10 U/L (13-56) L 03/14/23 01:42 Alkaline Phosphatase 97 U/L (45-117) 03/14/23 01:42 Lipase 18 U/L (13-75) 03/11/23 12:34 <Alessandra Ryder - Last Filed: 03/15/23 15:05> <Kezia Drake - Last Filed: 03/14/23 18:38> <Bina Alarcon - Last Filed: 03/15/23 10:33> <Alessandra Ryder - Last Filed: 03/15/23 15:05> Home Medications: Hydrocodone 7.5/APAP 325 [[place] 7.5/325 mg*] 1 tab PO Q4H PRN tab 02/21/23 LORazepam [Ativan*] 0.5 mg PO Q8H PRN tab 02/21/23 Albuterol Neb [Proventil 0.083% Neb Soln] 2.5 mg NEB [id number] PRN amp 02/24/23 Metoprolol Tartrate [Lopressor*] 25 mg PO BID 6AM 6PM tab 02/24/23 Acetaminophen [Tylenol] 650 mg PO Q4HP PRN 03/02/23 Docusate [Colace Cap*] 200 mg PO DAILY 03/02/23 Ferrous Sulfate [Ferrous Sulfate*] 325 mg PO DAILY 03/02/23 Multivitamin with Minerals [Multivitamins with Minerals] 1 each PO DAILY 03/02/23 Omeprazole 20 mg PO DAILY 03/02/23 Polyethylene Glycol 3350 [Miralax] 17 gm PO DAILYPRN PRN 03/02/23 Sodium Chloride Tab [Sodium Chloride*] 1 gm PO BID 03/02/23 Clopidogrel Bisulfate [Plavix*] 75 mg PO DAILY 30 Days #30 tab 03/04/23 Insulin -Regular Human [Novolin -R*] See Protocol SQ ACHS ml 03/04/23 Lactulose [Cephulac*] 15 ml PO DAILY 30 Days #450 ml 03/04/23 Lidocaine [Dermacinrx Lidocan] 1 each TP DAILY 30 Days #30 patch 03/04/23 Physician Discharge Instructions: Ms. Hartley is a pleasant 67-year-old female patient with a past medical history significant for diabetes, hypertension, myocardial infarction, gastric bypass, cholecystectomy who was admitted to the [facility] for hypo and osmolality and hyponatremia, hypokalemia, nausea vomiting diarrhea, atrial fibrillation. Patient was admitted to the hospital, started IV fluids, electrolyte management On 03/15/2023, patient was seen on morning rounds and deemed medically stable for discharge. Patient was discharged with instructions to schedule follow-up appointments with PCP in 3-4 7 days. The patient and family members were given the opportunity to ask questions and reported no further questions. Furthermore, all questions were answered to the best of my ability. 1. Please call and schedule a follow-up appointment with your PCP in 3-5 days Followup: Olman Parham PA [Primary Care Provider] -
[2023-03-14] MEDS: ONDANSETRON 4 MG/2 ML VIAL IV PRN (19:44)
--- NOTE | 2023-03-14 19:53 | P.PN ---
Date of Service: 03/14/23 Vital Signs Temp Pulse Resp BP Pulse Ox 97.6 F 82 18 119/65 100 03/14/23 18:40 03/14/23 18:40 03/14/23 19:44 03/14/23 18:40 03/14/23 19:44 Medications Acetaminophen (Acetaminophen 500 Mg Tab) 500 mg PO Q4HP PRN PRN Reason: Pain scale 2-4 (Mild) Last Admin: 03/14/23 17:32 Dose: 500 mg Hydrocodone Bitart/Acetaminophen (Hydrocodone/Apap 7.5/325 Mg Tab) 1 tab PO Q6H PRN PRN Reason: Pain scale 5-7 (Moderate) Last Admin: 03/14/23 19:44 Dose: 1 tab Albuterol Sulfate (Albuterol 2.5 Mg/3 Ml Neb [place]) 2.5 mg NEB [id number] PRN PRN Reason: SHORTNESS OF BREATH Stop: 03/20/23 17:09 Last Admin: 03/14/23 08:42 Dose: 2.5 mg Artificial Tears (Carboxymethylcellulose Sodium 0.5% 15 Ml) 2 drops OPTH BID PRN PRN Reason: dry eye Calcium Carbonate/Glycine (Calcium Carbonate Chew 500mg Tab) 500 mg PO QID PRN PRN Reason: INDIGESTION Last Admin: 03/13/23 23:26 Dose: 500 mg Clopidogrel Bisulfate (Clopidogrel 75 Mg Tablet) 75 mg PO DAILY [facility] Last Admin: 03/14/23 08:00 Dose: 75 mg Dicyclomine HCl (Dicyclomine Hcl 10 Mg Cap) 10 mg PO TID PRN PRN Reason: ABDOMINAL CRAMPS Last Admin: 03/13/23 06:33 Dose: 10 mg Enoxaparin Sodium (Enoxaparin 40 Mg/0.4 Ml) 40 mg SQ DAILY 5 PM GONZÁLEZ Ergocalciferol (Drisdol (Vitamin D=Ergocalciferol) 03115 Unit Cap) 50,000 unit PO Q48H GONZÁLEZ Stop: 03/17/23 09:01 Famotidine (Famotidine 20 Mg Tab) 20 mg PO BID PRN; Protocol PRN Reason: ABDOMINAL PAIN Last Admin: 03/12/23 12:09 Dose: 20 mg Glucagon (Glucagon 1 Mg/Vial) 1 mg IM 1X PRN; Protocol PRN Reason: HYPOGLYCEMIA Dextrose (Dextrose 10% Water Iv Soln.) 125 mls @ 0 mls/hr IV PRN PRN; Protocol PRN Reason: HYPOGLYCEMIA Insulin Human Regular (Insulin Regular (Human) 100 Unit/Ml) 0 unit SQ ACHS [facility]; Protocol Last Admin: 03/14/23 17:49 Dose: 3 unit Loperamide HCl (Loperamide Hcl 2 Mg Capsule) 2 mg PO Q4H PRN PRN Reason: DIARRHEA Last Admin: 03/14/23 08:05 Dose: 2 mg Lorazepam (Lorazepam 0.5 Mg Tablet) 0.5 mg PO Q8H PRN PRN Reason: ANXIETY Last Admin: 03/14/23 19:44 Dose: 0.5 mg Metoprolol Tartrate (Metoprolol Tar 25 Mg Tab) 25 mg PO BID 6AM 6PM [facility] Last Admin: 03/14/23 18:06 Dose: 25 mg Morphine Sulfate (Morphine 2 Mg/Ml Syr) 2 mg IV Q6H PRN PRN Reason: Pain scale 8-10 (Severe) Last Admin: 03/14/23 17:32 Dose: 2 mg Multivitamins/Minerals (Multivitamin Tab) 1 tab PO DAILY [facility] Last Admin: 03/14/23 08:00 Dose: 1 tab Nicotine (Nicotine 14 Mg/Pat) 14 mg TD DAILY [facility] Last Admin: 03/14/23 08:00 Dose: 14 mg Ondansetron HCl (Ondansetron 4 Mg/2 Ml Vial) 4 mg IV Q6HP PRN PRN Reason: NAUSEA / VOMITING Last Admin: 03/14/23 19:44 Dose: 4 mg Pantoprazole Sodium (Pantoprazole 40mg Tablet) 40 mg PO DAILYAC [facility]; Protocol Last Admin: 03/14/23 06:11 Dose: 40 mg Polyethylene Glycol (Polyethyl Gly 3350 17 Gm/Dose) 17 gm PO DAILY PRN PRN Reason: CONSTIPATION Sodium Chloride (Sodium Chloride 1 Gm Tab) 2 gm PO BIDWM [facility] Last Admin: 03/14/23 18:06 Dose: 2 gm Urea (Urea 15 Gm Powder Packet) 30 gm PO DAILY [facility] Last Admin: 03/14/23 08:19 Dose: 30 gm Microbiology Results 03/11/23 14:10 Clean Catch Urine [place] Count - Final No growth. 03/11/23 14:10 Clean Catch Urine - Final No growth. 03/11/23 14:10 Nasopharnyx Influenza Type A Antigen Screen - Final 03/11/23 14:10 Nasopharnyx Influenza Type B Antigen Screen - Final Assessment/ Plan: Nephrology No dyspnea No chest pain Left hip and knee pain No acute events overnight Vitals, medications, blood work and imaging reviewed in the chart. NAD. NCAT. MMM. Neck supple. Normal respiratory effort. RRR. Abd ND. No C/C. LE Edema none. No rash. AAO. Normal speech. CKD I with Proteinuria -No NSAIDs Hyponatremia -Continue salt tab -Continue Urea daily Hypokalemia -Replete as ordered HTN with CKD -Continue Metoprolol DM II with CKD -RISS Hypoalbuminemia -Recommend protein supplementation Anemia in chronic illness -Monitor H&H -PRBC prn Hypocalcemia -Start Ergo Case reviewed with Dr. España
[2023-03-15] MEDS: MORPHINE 2 MG/ML SYR IV PRN (03:17)
[2023-03-15] MEDS: PANTOPRAZOLE 40MG TABLET PO SCH (05:53)
[2023-03-15] MEDS: METOPROLOL TAR 25 MG TAB PO SCH (05:53)
[2023-03-15] MEDS: LORAZEPAM 0.5 MG TABLET PO PRN (05:53)
[2023-03-15] MEDS: HYDROCODONE/APAP 7.5/325 MG TAB PO PRN (05:53)
[2023-03-15] MEDS: INSULIN REGULAR (HUMAN) 100 UNIT/ML SQ SCH (07:30)
[2023-03-15] MEDS ORDERED: POTASSIUM CL SA 10 MEQ TAB PO ONE (07:34)
[2023-03-15] MEDS: ACETAMINOPHEN 500 MG TAB PO PRN (08:12)
[2023-03-15] MEDS: CLOPIDOGREL 75 MG TABLET PO SCH (08:12)
[2023-03-15] MEDS: MULTIVITAMIN TAB PO SCH (08:12)
[2023-03-15] MEDS: NICOTINE 14 MG/PAT TD SCH (08:12)
[2023-03-15] MEDS: SODIUM CHLORIDE 1 GM TAB PO SCH (08:12)
[2023-03-15 08:13] LABS: Magnesium 1.9 mg/dL (1.6-2.4); Potassium 3.9 mEq/L (3.5-5.1)
[2023-03-15] MEDS ORDERED: DRISDOL (VITAMIN D=ERGOCALCIFEROL) 50000 UNIT CAP PO SCH (09:00)
[2023-03-15 10:27] VITALS: O2SAT 100
[2023-03-15 10:54] VITALS: BP 119/97; TEMP 97.7
[2023-03-15] MEDS ORDERED: ENOXAPARIN 40 MG/0.4 ML SQ SCH (17:00)
--- NOTE | 2023-03-15 20:29 | P.PN ---
Date of Service: 03/15/23 Vital Signs Temp Pulse Resp BP Pulse Ox 97.7 F 69 18 119/97 H 100 03/15/23 08:00 03/15/23 08:00 03/15/23 08:00 03/15/23 08:00 03/15/23 08:00 Microbiology Results 03/11/23 14:10 Clean Catch Urine [place] Count - Final No growth. 03/11/23 14:10 Clean Catch Urine - Final No growth. 03/11/23 14:10 Nasopharnyx Influenza Type A Antigen Screen - Final 03/11/23 14:10 Nasopharnyx Influenza Type B Antigen Screen - Final Assessment/ Plan: Nephrology No dyspnea No chest pain Left hip and knee pain No acute events overnight Vitals, medications, blood work and imaging reviewed in the chart. NAD. NCAT. MMM. Neck supple. Normal respiratory effort. RRR. Abd ND. No C/C. LE Edema none. No rash. AAO. Normal speech. CKD I with Proteinuria -No NSAIDs Hyponatremia -Continue salt tab -Continue Urea daily Hypokalemia -Replete as ordered HTN with CKD -Continue Metoprolol DM II with CKD -RISS Hypoalbuminemia -Recommend protein supplementation Anemia in chronic illness -Monitor H&H -PRBC prn Hypocalcemia -Continue Ergo Case reviewed with hospitalist team
--- NOTE | 2023-03-18 14:04 | EKG ---
Test Date: 2023-03-11 Test Time: 12:43:19 Education Research Analyst: JEANNE MEASUREMENT RESULTS: Intervals: Rate: 115 SD: QRSD: 102 QT: 320 QTc: 442 [place]: P: SD: QRS: 49 T: 255 INTERPRETIVE STATEMENTS: Atrial fibrillation with rapid ventricular response ST & T wave abnormality, consider inferior ischemia ST & T wave abnormality, consider anterolateral ischemia Abnormal ECG Compared to ECG 03/11/2023 12:42:22 No significant changes Electronically Signed On 03-18-23 13:48:05 MARINE CONSULTANT by David Irby
--- NOTE | 2023-03-18 14:04 | EKG ---
Test Date: 2023-03-11 Test Time: 12:42:22 Search Marketing Analyst: JEANNE MEASUREMENT RESULTS: Intervals: Rate: 109 NM: QRSD: 92 QT: 372 QTc: 500 [place]: P: NM: QRS: 43 T: 249 INTERPRETIVE STATEMENTS: Atrial fibrillation with rapid ventricular response ST & T wave abnormality, consider inferior ischemia ST & T wave abnormality, consider anterolateral ischemia Abnormal ECG Compared to ECG 03/08/2023 19:55:00 ST (T wave) deviation now present Sinus rhythm no longer present Atrial premature complex(es) no longer present T-wave abnormality no longer present Prolonged QT interval no longer present Possible ischemia still present Electronically Signed On 03-18-23 13:48:07 MBA INTERN by David Irby
== END 2023-03-15 11:45 | disposition home health service (06) | DRG 644 ==
LOC: ER 11:28 → ERHOLD 16:34 → 2ND 19:41
PROVIDERS: ADMIT Internal Medicine; ATTEND Hospitalist
DX: E22.2 Syndrome of inappropriate secretion of antidiuretic hormone (principal); N17.9 Acute kidney failure, unspecified; S82.002A Unspecified fracture of left patella, initial encounter for closed fracture; D63.8 Anemia in other chronic diseases classified elsewhere; E83.51 Hypocalcemia; E11.22 Type 2 diabetes mellitus with diabetic chronic kidney disease; D75.839 Thrombocytosis, unspecified; J44.9 Chronic obstructive pulmonary disease, unspecified; I48.91 Unspecified atrial fibrillation; E26.1 Secondary hyperaldosteronism; I12.9 Hypertensive chronic kidney disease with stage 1 through stage 4 chronic kidney disease, or unspecified chronic kidney disease; E87.6 Hypokalemia; F17.210 Nicotine dependence, cigarettes, uncomplicated; I25.2 Old myocardial infarction; N18.1 Chronic kidney disease, stage 1; Z98.84 Bariatric surgery status; Z11.52 Encounter for screening for COVID-19
CPT/HCPCS: 36415; 51702; 72125; 72170; 74177; 80048; 80053; 81001; 82947; 83605; 83690; 83735; 85025; 87086; 87088; 87804; 87811; 93005; 94640; 96374; 96375; 97110; 97116; 97161; 97530; 99285; J1650; J1815; J2270; J2405; J3475; J3480; J7030; J7613; Q9967

== ENCOUNTER → 2023-03-20 | Emergency (ER) | payer OTHER ==
--- NOTE | 2023-03-20 14:28 | RAD REPORT ---
EXAM DESCRIPTION: CT - [id number] - 03/20/2023 1:44 pm CLINICAL HISTORY: TRAUMA COMPARISON: C Spine Wo Con dated 03/13/2023 TECHNIQUE: Axial thin cut noncontrast CT images of the head were obtained. Axial thin cut noncontrast CT images of the cervical spine were obtained. Multiplanar reformatted images were generated and reviewed. All CT scans are performed using dose optimization technique as appropriate and may include automated exposure control or mA/KV adjustment according to patient size. FINDINGS: CT HEAD WITHOUT CONTRAST: No acute hemorrhage, hydrocephalus or extra-axial collection is identified. Mild diffuse parenchymal volume loss. Moderate periventricular and deep white matter are nonspecific hypodensities, suggestive of chronic small vessel ischemic changes P No areas of brain edema or midline shift. The paranasal sinuses and mastoids are clear.The calvarium is intact. CT CERVICAL SPINE WITHOUT CONTRAST: No fracture or subluxation. Degenerative changes with gentle reversal of cervical lordosis. No prever tebral soft tissues swelling is identified. IMPRESSION: No acute traumatic intracranial or cervical spine findings. Chronic findings as above.
--- NOTE | 2023-03-20 14:29 | RAD REPORT ---
[facility] CLINICAL HISTORY: TRAUMA COMPARISON: Chest Single View dated 03/17/2023; Chest Single View dated 03/08/2023; Abdomen 1 View ([facility] B) dated 03/04/2023; Chest Single View dated 03/02/2023 TECHNIQUE: Portable AP view of the chest. FINDINGS: The lungs are clear. No pneumothorax or effusion. The cardiomediastinal contours are unre markable. IMPRESSION: No acute cardiopulmonary process.
--- NOTE | 2023-03-20 14:37 | RAD REPORT ---
EXAM DESCRIPTION: US - Extremity Venous Uni Ltd - 03/20/2023 2:13 pm CLINICAL HISTORY: Swelling COMPARISON: None. TECHNIQUE: Real-time sonographic evaluation of the left lower extremity deep venous system was perfo rmed. FINDINGS: Normal compressibility, flow augmentation, phasic flow and spontaneous flow is identified in the left lower extremity deep venous system. No intraluminal filling defects seen. Heterogeneous hypodense ovoid structures in the left popliteal fossa, could relate to components of B jeana cyst, resolving hematoma, or seroma. IMPRESSION: No evidence of DVT in the left lower extremity. Heterogeneous hypodense ovoid structures in the left popliteal fossa, could relate to components of B jeana cyst, resolving hematoma, or seroma.
[2023-03-20 15:18] LABS: Albumin 3.4 g/dL (3.4-5.0); Bilirubin Total 0.9 mg/dL (0.2-1.0); Potassium 2.9 mEq/L (3.5-5.1); Protein, Total 7.1 g/dL (6.4-8.2)
[2023-03-20 16:11] LABS: Absolute Lymphocytes (CBC) 0.9 K/uL (0.7-4.9); Hematocrit 30.3 % (36.0-45.0); MCV 82.2 fL (80-100); MPV 7.5 fL (7.6-11.3); Platelets 369 thou/uL (152-406); RBC Red Blood Cell Count 3.68 M/uL (3.86-4.86)
[2023-03-20 16:23] LABS: Protime INR 1.1
--- NOTE | 2023-03-20 16:45 | ER ---
Nurse's Notes [facility] Name: Reina Hartley Age: 67 yrs Sex: Female : 1955 Arrival Date: 03/20/2023 Time: 12:38 Bed 14 Private MD: Diagnosis: Weakness;Forehead hematoma;Hypokalemia Presentation: 03/20 12:40 Chief complaint: EMS states: Mechanical fall at home, hit head, hematoma to L forehead, ph no LOC, does not take blood thinners, broke her L knee a few seeks ago, has swelling and purple bruising to L lower leg. Coronavirus screen: Vaccine status: Patient reports being unvaccinated. Ebola Screen: No symptoms or risks identified at this time. Initial Sepsis Screen: Does the patient meet any 2 criteria? No. Patient's initial sepsis screen is negative. Does the patient have a suspected source of infection? No. Patient's initial sepsis screen is negative. Risk Assessment: Do you want to hurt yourself or someone else? Patient reports no desire to harm self or others. 12:40 Method Of Arrival: EMS: [facility] 12:40 Acuity: ANDREA 3 ph Triage Assessment: 12:30 General: Appears in no apparent distress. Behavior is calm, cooperative. Pain: ph Complains of pain in left knee. Neuro: Level of Consciousness is awake, alert, obeys commands, Oriented to person, place, time, situation. Cardiovascular: Capillary refill < 3 seconds in bilateral fingers Patient's skin is warm and dry. Cardiovascular: Edema is 2+ to left ankle, left foot and left toes. Respiratory: Airway is patent Respiratory effort is even, unlabored, Denies shortness of breath. GI: No signs and/or symptoms were reported involving the gastrointestinal system. Derm: Skin is pink, warm \\T\\ dry. Bruising that is dark purple, on left side of forehead. Derm: Bruising that is dark purple, on left lateral ankle, lateral aspect of left foot, left Achilles, left heel, left medial ankle, medial aspect of left foot, anterior aspect of left ankle and dorsum of left foot. Derm: Bruising that is dark purple, on right sternocleidomastoid. Historical: - Allergies: 14:07 Procardia; ph - PMHx: 14:07 diabetes mellitus; Hypertensive disorder; Myocardial infarction; ph - PSHx: 14:07 Cholecystectomy; breast augmentation; Gastric Bypass; hysterectomy; ph - Immunization history:: Adult Immunizations unknown. - Social history:: Smoking status: unknown. Screenin:35 [facility] ED Fall Risk Assessment (Adult) History of falling in the last 3 months, including since admission Yes- single mechanical fall (1 pt) Confusion or Disorientation No (0 pts) Intoxicated or Sedated No (0 pts) Impaired Gait Yes (1 pt) Mobility Assist Device Used No (0 pt) Altered Elimination Yes (1 pt) Score/Fall Risk Level 3 or more points = High Risk Oriented to surroundings, Maintained a safe environment, Hourly rounding (assess needs \\T\\ fall precautionary measures) done, Used ambulatory aids as needed (educated on \\T\\ assisted with). Abuse screen: Denies threats or abuse. Denies injuries from another. Nutritional screening: No deficits noted. Tuberculosis screening: No symptoms or risk factors identified. Assessment: 13:20 Reassessment: Pt's daughter called to speak to nurse, states, " She cannot come back to my house if she is discharged. She needs to go somewhere else or be admitted, She's always walking around naked and she pees on the floor in her room. She puts clothes in the microwave and is unsafe to have in my home. The home health nurse said that if she goes to the hospital I can refuse to come and get her." Informed her that we were waiting for test results and that I would call her back later w/ update. 14:30 Reassessment: Patient appears in no apparent distress at this time. Patient and/or ph family updated on plan of care and expected duration. Pain level reassessed. Patient is alert, oriented x 3, equal unlabored respirations, skin warm/dry/pink. Pt resting in bed, denies pain unless left knee is moved, requesting multiple warm blankets, food and drink, states, " Put a blanket under my ass too, it's so cold." VSS awaiting test results. 16:54 Reassessment: Called pt's daughter Cristal Valladares and she states that she is not cm10 coming to pick the patient up and that she refuses to take her back home because "it is not safe to have her in my home." Per patient's daughter, she states to call her sister Maximiliano. 17:20 Reassessment: Called pt's other daughter Maximiliano to see if she is was able to come and ph leaf size picker pt, informed her that other daughter Cristal was refusing to come and leaf size picker patient, Maximiliano stated that she was unable to d/t being 3 hours away, states, " I will call Cristal and try to get her to come get her.". 18:30 Reassessment: Spoke w/ daughter Cristal who states that she will be here to leaf size picker ph pt aty 1900. Vital Signs: 12:40 BP 133 / 91; Pulse 91; Resp 18; Temp 97.8; Pulse Ox 95% on R/A; ph 15:00 BP 132 / 87; Pulse 81; Resp 18; Pulse Ox 99% on R/A; ph 16:00 BP 121 / 92; Pulse 76; Resp 18; Pulse Ox 100% on R/A; ph 17:25 BP 141 / 87; Pulse 76; Resp 16; Pulse Ox 95% on R/A; ph ED Course: 12:30 Patient has correct armband on for positive identification. Placed in gown. Bed in low ph position. Side rails up X2. Pulse ox on. NIBP on. 12:41 Patient arrived in ED. eb 12:41 Nabeel Guardado MD is Attending Physician. ec2 13:46 CT Head C Spine In Process Unspecified. EDMS 14:03 Trisha Flowers, RN is Primary Nurse. ph 14:04 CXR XRAY In Process Unspecified. EDMS 14:07 Triage completed. ph 14:07 Arm band placed on Patient placed in an exam room. ph 14:14 Extremity Venous Uni Ltd US In Process Unspecified. EDMS 14:25 Missed attempt(s): 22 gauge in right forearm. Bleeding controlled, band aid applied, ph catheter tip intact. Missed attempt(s): 24 gauge in right wrist. Bleeding controlled, band aid applied, catheter tip intact. 15:43 Inserted saline lock: 24 gauge in right wrist, using aseptic technique. Blood collected.hb 16:42 Notified ED physician of other Dr. Guardado made aware that pt had 1 positive blood cm10 culture bottle that was drawn 03/17/23. 1 Anaerobic bottle positive for Gram + cocci in clusters. 17:36 No provider procedures requiring assistance completed. ph 19:10 IV discontinued, intact, bleeding controlled, No redness/swelling at site. Pressure ph dressing applied. Administered Medications: No medications were administered Medication: 17:35 VIS not applicable for this client. ph Outcome: 16:45 Discharge ordered by . ec2 19:15 Discharged to home via wheelchair, with family, ph 19:15 Condition: good 19:15 Discharge instructions given to patient, family, Instructed on discharge instructions, follow up and referral plans. Demonstrated understanding of instructions, follow-up care, 19:24 Patient left the ED. ph Signatures: Dispatcher [employer] Trisha Hammond RN RN Lissett Chavis RN RN hb Botello, Elizabeth eb Martinez, Clarissa, RN RN cm10 Nabeel Guradado MD MD ec2 Corrections: (The following items were deleted from the chart) 17:35 14:10 General: Appears in no apparent distress. Behavior is calm, cooperative, ph ph 17:35 14:10 Pain: Complains of pain in left knee ph ph 17:35 14:10 Neuro: Level of Consciousness is awake, alert, obeys commands, Oriented to ph person, place, time, situation, ph 17:35 14:10 Cardiovascular: Capillary refill < 3 seconds in bilateral fingers Patient's skin ph is warm and dry. ph 17:35 14:10 Respiratory: Airway is patent Respiratory effort is even, unlabored, Denies ph shortness of breath ph 17:35 14:10 GI: No signs and/or symptoms were reported involving the gastrointestinal system. ph ph 17:35 14:10 Derm: Skin is pink, warm \\T\\ dry. Bruising that is dark purple, on left side of ph forehead ph 17:35 14:10 Derm: Bruising that is dark purple, on right sternocleidomastoid ph ph 17:35 14:10 Derm: Bruising that is dark purple, on left lateral ankle, lateral aspect of left ph foot, left Achilles, left heel, left medial ankle, medial aspect of left foot, anterior aspect of left ankle and dorsum of left foot ph 17:35 14:10 Cardiovascular: Edema is 2+ to left ankle, left foot and left toes ph ph 19:34 17:45 Reassessment: Spoke w/ daughter Cristal who states that she will be here to ph leaf size picker pt aty 1800 ph
--- NOTE | 2023-03-20 16:46 | EDPHYS ---
Physician Documentation [facility] Name: Reina Hartley Age: 67 yrs Sex: Female : 1955 Arrival Date: 03/20/2023 Time: 12:38 Bed 14 Private MD: ED Physician Nabeel Guardado HPI: 03/20 13:56 This 67 yrs old Female presents to ER via Unassigned with complaints of ec2 evaluation for fall. 13:56 Patient arrives today for evaluation after a fall. Patient reports no LOC, no blood ec2 thinner use. Patient reports that she hit her head. Patient reports no chest pain, no difficulty breathing, reports chronic low back pain that is unchanged from her baseline. . Historical: - Allergies: 14:07 Procardia; ph - PMHx: 14:07 diabetes mellitus; Hypertensive disorder; Myocardial infarction; ph - PSHx: 14:07 Cholecystectomy; breast augmentation; Gastric Bypass; hysterectomy; ph - Immunization history:: Adult Immunizations unknown. - Social history:: Smoking status: unknown. ROS: 13:57 Constitutional: as per hpi ec2 Exam: 13:57 Constitutional: GEN: No acute distress HEENT: -Head: no deformities, contusion noted ec2 to left forehead. -Eyes: EOMI CV: regular rate LUNGS: no respiratory distress ABD: non-tender, soft, nontender, no guarding, not rigid SKIN: no wounds appreciated, ecchymosis noted to the left lower extremity MSK: No C/T/L spine deformities RUE w/o bony deformity LUE w/o bony deformity RLE w/o bony deformity LLE w/o bony deformity NEURO: moves all extremities equally, GCS 15 (E4, V5, M6) Vital Signs: 12:40 BP 133 / 91; Pulse 91; Resp 18; Temp 97.8; Pulse Ox 95% on R/A; ph 15:00 BP 132 / 87; Pulse 81; Resp 18; Pulse Ox 99% on R/A; ph 16:00 BP 121 / 92; Pulse 76; Resp 18; Pulse Ox 100% on R/A; ph 17:25 BP 141 / 87; Pulse 76; Resp 16; Pulse Ox 95% on R/A; ph MDM: 13:11 Patient medically screened. ec2 13:57 Data reviewed: vital signs. ED course: Patient arrives today for evaluation after ec2 ground-level fall. Examination remarkable for well-appearing nontoxic individual is otherwise in no acute distress with a reassuring examination. Will obtain lab work, CT scan of the head and C-spine, obtain left lower extremity DVT ultrasound to evaluate for DVT. Of note patient with recent knee fracture, has been ambulatory and is no longer seeking care for this and does not require urgent orthopedic evaluation for this.. 15:02 ED course: CT of the head and C-spine show no acute traumatic pathology. Chest x-ray ec2 shows no acute process. Ultrasound left lower extremity shows no evidence of DVT, does show heterogenous structure, nonemergent. . 16:26 ED course: CBC shows slight anemia. Metabolic profile with slight hypokalemia 2.9, ec2 coagulation profile is unremarkable. Pending urine studies. . 16:43 ED course: Of note was called regarding positive gram-positive cocci in clusters on ec2 preliminary blood cultures are previously drawn, patient is nontoxic-appearing, afebrile, without leukocytosis, suspect these are contaminant. I discussed possible admission with the patient given that sounds like there is some housing issues, patient immediately stated that she would not want to be admitted and would not want to go to the halfway. I will discharge patient home at her request, she is alert and oriented and capable of making her own decisions.. 03/20 13:16 Order name: CBC with Diff; Complete Time: 16:26 ec2 03/20 13:16 Order name: CMP; Complete Time: 16: ec2 03/20 13:16 Order name: PT-INR; Complete Time: 16: ec2 03/20 13:16 Order name: Ptt, Activated; Complete Time: 16: ec2 03/20 13:16 Order name: CT Head C Spine; Complete Time: 15:02 ec2 03/20 13:16 Order name: CXR XRAY; Complete Time: 15: ec2 03/20 13:16 Order name: Extremity Venous Uni Ltd US; Complete Time: 15: ec2 03/20 13:16 Order name: EKG - Nurse/Tech; Complete Time: 17:08 ec2 03/20 15:04 Order name: Misc. Order: recollect cbc (lavender tube); Complete Time: 15:43 cm10 Administered Medications: No medications were administered Disposition Summary: 03/20/23 16:45 Discharge Ordered Notes: Location: Home ec2 Condition: Stable ec2 Diagnosis - Weakness ec2 - Forehead hematoma ec2 - Hypokalemia ec2 Followup: ec2 - With: Private Physician - When: - Reason: Recheck today's complaints Discharge Instructions: - Discharge Summary Sheet ec2 - Weakness, [id number] ec2 Forms: - Medication Reconciliation Form ec2 - Thank You Letter ec2 - Antibiotic Education ec2 - Prescription Opioid Use ec2 - Patient Portal Instructions ec2 - Leadership Thank You Letter ec2 Signatures: Dispatcher [employer] Trisha Hammond RN RN Emerita Cook RN RN cm10 Nabeel Guardado MD MD ec2
[2023-03-20 19:58] VITALS: TEMP 97.8
[2023-03-20 20:10] VITALS: BP 141/87; O2SAT 95
== END ==
LOC: ER 12:38
DX: S00.83XA Contusion of other part of head, initial encounter (principal); R53.1 Weakness; E87.6 Hypokalemia; I10 Essential (primary) hypertension; Z98.82 Breast implant status; Z88.8 Allergy status to other drugs, medicaments and biological substances
CPT/HCPCS: 36415; 70450; 71045; 72125; 80053; 85025; 85610; 85730; 93971; 99284

== ENCOUNTER → 2023-03-31 | Emergency (ER) | payer OTHER ==
[~2023-03-31] MED LIST changes: +ACETAMINOPHEN 500 MG TAB ONE; -ALBUTEROL 2.5 MG/3 ML NEB SOL ONE; -BISACODYL 10 MG RECTAL SUPP ONE; -CYCLOBENZAPRINE 10 MG TAB ONE; -FAMOTIDINE 20 MG/2 ML VIAL IV ONE; -FENTANYL CITR 100 MCG/2 ML ONE; -HYDRALAZINE HCL 25 MG TABLET ONE; -HYDROCODONE/APAP 5/325 MG TAB ONE; -IPRATROPIUM BROM 0.5MG/2.5ML ONE; -KCL 20 MEQ/100 mL IVPB 100 ML IV ONE; -LACTULOSE 20 GM/30 ML UCUP ONE; -MAGNESIUM CITRATE 300 ML BOT ONE; -METOCLOPRAMIDE 10 MG/2mL INJ ONE; -MORPHINE 4 MG/ML SYR ONE; -NA CHLORIDE 0.9% 1,000 ML ONE; -NA CHLORIDE 0.9% 500 ML ONE; -ONDANSETRON 4 MG/2 ML VIAL ONE; -POTASSIUM CL SA 10 MEQ TAB PO ONE; -PROMETHAZINE 25 MG TABLET ONE; -cloNIDine HCL 0.1 MG TAB ONE
--- NOTE | 2023-03-31 02:05 | ER ---
Nurse's Notes [facility] Name: Reina Hartley Age: 67 yrs Sex: Female : 1955 Arrival Date: 03/31/2023 Time: 01:07 Bed 6 Private MD: Diagnosis: Pain in right hip Presentation: 03/31 01:09 Chief complaint: Patient states: slipped and fell landing on right hip. pain to right lg3 hip 10/10. denies hitting head/LOC or use of blood thinners. Coronavirus screen: Client denies travel out of the [place] in the last 14 days. At this time, the client does not indicate any symptoms associated with coronavirus-19. Ebola Screen: No symptoms or risks identified at this time. Initial Sepsis Screen: Does the patient meet any 2 criteria? No. Patient's initial sepsis screen is negative. Does the patient have a suspected source of infection? No. Patient's initial sepsis screen is negative. Risk Assessment: Do you want to hurt yourself or someone else? Patient reports no desire to harm self or others. Onset of symptoms was March 31, 2023. 01:09 Method Of Arrival: EMS: [facility] lg3 01:09 Acuity: ANDREA 4 lg3 Triage Assessment: 01:11 General: Appears in no apparent distress. comfortable, Behavior is calm, cooperative. lg3 Pain: Complains of pain in right hip Pain does not radiate. Pain currently is 10 out of 10 on a pain scale. EENT: No deficits noted. No signs and/or symptoms were reported regarding the EENT system. Neuro: No deficits noted. Shane Agitation-Sedation Scale (RASS): 0 - Alert and Calm Level of Consciousness is awake, alert, obeys commands, Oriented to person, place, time, situation. Cardiovascular: No deficits noted. Denies chest pain, shortness of breath, Capillary refill < 3 seconds Clubbing of nail beds is absent JVD is absent Patient's skin is warm and dry. Respiratory: No deficits noted. Airway is patent Respiratory effort is even, unlabored, Respiratory pattern is regular, symmetrical. GI: No deficits noted. No signs and/or symptoms were reported involving the gastrointestinal system. : No deficits noted. No signs and/or symptoms were reported regarding the genitourinary system. Derm: No deficits noted. No signs and/or symptoms reported regarding the dermatologic system. Skin is intact, is healthy with good turgor, Skin is dry, Skin is normal, Skin temperature is warm. Musculoskeletal: No deficits noted. Circulation, motion, and sensation intact. Range of motion: intact in all extremities. Historical: - Allergies: 01:11 Procardia; lg3 01:11 all depression medications; lg3 - Home Meds: 01:11 tramadol 50 mg Oral tablet [Active]; lg3 - PMHx: 01:11 diabetes mellitus; Hypertensive disorder; Myocardial infarction; TIA (Myocardial lg3 infarction); Arthritis; - PSHx: 01:11 breast augmentation; Cholecystectomy; Gastric Bypass; hysterectomy; Appendectomy; left lg3 hip; cardiac stent; - Immunization history:: Adult Immunizations up to date, Client reports receiving the 2nd dose of the Covid vaccine, Flu vaccine is not up to date. - Social history:: Smoking status: Patient reports the use of cigarette tobacco products, smokes one pack cigarettes per day. Patient uses alcohol, occasionally. Patient/guardian denies using street drugs. Screenin:15 [facility] ED Fall Risk Assessment (Adult) History of falling in the last 3 months, lg3 including since admission Yes- single mechanical fall (1 pt) Confusion or Disorientation No (0 pts) Intoxicated or Sedated No (0 pts) Impaired Gait No (0 pts) Mobility Assist Device Used No (0 pt) Altered Elimination No (0 pt) Score/Fall Risk Level 0 - 2 = Low Risk Oriented to surroundings, Maintained a safe environment, Educated pt \T\ family on fall prevention, incl call for assistance when getting out of bed, Assessed \T\ reinforced patient's understanding of fall precautions. Abuse screen: Denies threats or abuse. Denies injuries from another. Nutritional screening: No deficits noted. Tuberculosis screening: No symptoms or risk factors identified. Assessment: 01:14 General: see triage assessment. lg3 Vital Signs: 01:09 BP 172 / 86; Pulse 84; Resp 17 S; Temp 98.5(O); Pulse Ox 100% on R/A; Weight 63.5 kg lg3 (R); Height 5 ft. 2 in. (R); Pain 10/10; 02:00 BP 150 / 75; Pulse 70; Resp 18; Pulse Ox 99% ; vc1 01:09 Body Mass Index 25.61 (63.50 kg, 157.48 cm) lg3 01:09 Pain Scale: Adult lg3 ED Course: 01:08 Patient arrived in ED. rv1 01:08 Nabeel Guardado MD is Attending Physician. ec2 01:11 Triage completed. lg3 01:11 Arm band placed on right wrist. lg3 01:15 Patient has correct armband on for positive identification. Placed in gown. Bed in low lg3 position. Call light in reach. Side rails up X 1. Client placed on continuous cardiac and pulse oximetry monitoring. NIBP monitoring applied. Door closed. Noise minimized. Warm blanket given. 01:15 Patient maintains SpO2 saturation greater than 95% on room air. lg3 01:32 Pelvis XRAY In Process Unspecified. EDMS 01:32 Femur Right XRAY In Process Unspecified. EDMS 02:30 No provider procedures requiring assistance completed. Patient did not have IV access vc1 during this emergency room visit. Administered Medications: 01:32 Drug: Acetaminophen PO 1000 mg PO once Route: PO; lg3 Medication: 02:31 VIS not applicable for this client. vc1 Outcome: 02:04 Discharge ordered by . ec2 02:30 Discharged to home ambulatory, vc1 02:30 Condition: good 02:30 Discharge instructions given to patient, Instructed on discharge instructions, follow up and referral plans. Demonstrated understanding of instructions, follow-up care, 02:32 Patient left the ED. vc1 Signatures: Dispatcher [employer] Paulina Mabry RN RN lg3 Radha Banegas RN RN vc1 Marisela Graham rv1 Nabeel Guardado MD MD ec2
--- NOTE | 2023-03-31 02:05 | EDPHYS ---
Physician Documentation [facility] Name: Reina Hartley Age: 67 yrs Sex: Female : 1955 Arrival Date: 03/31/2023 Time: 01:07 Bed 6 Private MD: ED Physician Nabeel Guardado HPI: 03/31 01:09 This 67 yrs old Female presents to ER via Unassigned with complaints of fall ec2 and hip pain. 01:09 Patient arrives for evaluation of right hip pain. States she was walking and ec2 subsequently fell down. Reports no LOC, no head pain, no neck pain, no blood thinner use.. Historical: - Allergies: 01:11 Procardia; lg3 01:11 all depression medications; lg3 - Home Meds: 01:11 tramadol 50 mg Oral tablet [Active]; lg3 - PMHx: 01:11 diabetes mellitus; Hypertensive disorder; Myocardial infarction; TIA (Myocardial lg3 infarction); Arthritis; - PSHx: 01:11 breast augmentation; Cholecystectomy; Gastric Bypass; hysterectomy; Appendectomy; left lg3 hip; cardiac stent; - Immunization history:: Adult Immunizations up to date, Client reports receiving the 2nd dose of the Covid vaccine, Flu vaccine is not up to date. - Social history:: Smoking status: Patient reports the use of cigarette tobacco products, smokes one pack cigarettes per day. Patient uses alcohol, occasionally. Patient/guardian denies using street drugs. ROS: 01:09 Constitutional: as per hpi ec2 Exam: 01:09 Constitutional: GEN: NAD Head: atraumatic Eyes: EOMI Ears: External ears are ec2 normal. CV: regular rate LUNGS: no respiratory distress ABD: non-distended SKIN: no evidence of rashes MSK: no evidence of trauma, right hip with good range of motion, good range of motion at the knee as well, TTP to the proximal right femur. NEURO: moves all extremities equally Vital Signs: 01:09 BP 172 / 86; Pulse 84; Resp 17 S; Temp 98.5(O); Pulse Ox 100% on R/A; Weight 63.5 kg lg3 (R); Height 5 ft. 2 in. (R); Pain 10/10; 02:00 BP 150 / 75; Pulse 70; Resp 18; Pulse Ox 99% ; vc1 01:09 Body Mass Index 25.61 (63.50 kg, 157.48 cm) lg3 01:09 Pain Scale: Adult lg3 MDM: 01:08 Patient medically screened. ec2 01:09 Data reviewed: vital signs. ED course: Patient arrives today for evaluation of right ec2 hip pain. Examination remarkable for MSK findings as noted above. Will obtain radiograph of the hip and right femur. Considering bony contusion, hip fracture.. 02:04 ED course: Pelvis x-ray and femur x-ray independently reviewed and interpreted by me, ec2 show no bony fracture. Will discharge home. Return precautions given . 03/31 01:09 Order name: Pelvis XRAY ec2 03/31 01:09 Order name: Femur Right XRAY ec2 Administered Medications: :32 Drug: Acetaminophen PO 1000 mg PO once Route: PO; lg3 Disposition Summary: 03/31/23 02:04 Discharge Ordered Notes: Location: Home ec2 Condition: Stable ec2 Diagnosis - Pain in right hip ec2 Followup: ec2 - With: Private Physician - When: - Reason: Recheck today's complaints Discharge Instructions: - Discharge Summary Sheet ec2 - Hip Pain ec2 Forms: - Medication Reconciliation Form ec2 - Thank You Letter ec2 - Antibiotic Education ec2 - Prescription Opioid Use ec2 - Patient Portal Instructions ec2 - Leadership Thank You Letter ec2 Signatures: Dispatcher [employer] Paulina Mabry, RN RN lg3 Nabeel Guardado MD MD ec2
[2023-03-31 08:52] VITALS: TEMP 98.5
[2023-03-31 09:07] VITALS: BP 150/75; O2SAT 99
--- NOTE | 2023-03-31 14:54 | RAD REPORT ---
EXAM DESCRIPTION: RAD - Femur Right - 03/31/2023 1:31 am CLINICAL HISTORY: Injury COMPARISON: None. FINDINGS: Single view of the pelvis and 2 views of the views of the right femur. No acute frac ture or dislocation. Osteopenia. Atherosclerotic vascular calcification. Osteoarthritic change of the right hip and knee. Left total hip arthroplasty. Degenerative change of the visualized spine. Phl eboliths in the pelvis. IMPRESSION: No acute fracture or dislocation. Left total hip arthroplasty. Electronically signed by: Jb Avitia DO 03/31/2023 01:56 AM MANAGER CARDIAC CATH M Due to temporary technical issues with the PACS/Fluency reporting system, reports are being signed by the in house radiologist without review as a courtesy to ensure prompt reporting. The interpreting r adiologist is fully responsible for the content of the report.
--- NOTE | 2023-03-31 15:02 | RAD REPORT ---
EXAM DESCRIPTION: RAD - Pelvis - 03/31/2023 1:30 am CLINICAL HISTORY: Injury COMPARISON: None. FINDINGS: Single view of the pelvis and 2 views of the views of the right femur. No acute frac ture or dislocation. Osteopenia. Atherosclerotic vascular calcification. Osteoarthritic change of the right hip and knee. Left total hip arthroplasty. Degenerative change of the visualized spine. Phl eboliths in the pelvis. IMPRESSION: No acute fracture or dislocation. Left total hip arthroplasty. Electronically signed by: Jb Avitia DO 03/31/2023 01:56 AM SENIOR MEDICAL TRANSCRIPTIONIST M Due to temporary technical issues with the PACS/Fluency reporting system, reports are being signed by the in house radiologist without review as a courtesy to ensure prompt reporting. The interpreting r adiologist is fully responsible for the content of the report.
== END ==
LOC: ER 01:07
DX: M25.551 Pain in right hip (principal); S79.911A Unspecified injury of right hip, initial encounter; W18.39XA Other fall on same level, initial encounter; Y93.89 Activity, other specified; Y92.9 Unspecified place or not applicable; I25.2 Old myocardial infarction; I10 Essential (primary) hypertension; E11.9 Type 2 diabetes mellitus without complications; F17.210 Nicotine dependence, cigarettes, uncomplicated
CPT/HCPCS: 72170; 99284

== ENCOUNTER → 2023-04-03 | Emergency (ER) | payer OTHER ==
[~2023-04-03] MED LIST changes: -ACETAMINOPHEN 500 MG TAB ONE; +IBUPROFEN 400 MG TAB ONE
--- NOTE | 2023-04-03 04:12 | EDPHYS ---
Physician Documentation [facility] Name: Reina Hartley Age: 67 yrs Sex: Female : 1955 Arrival Date: 04/03/2023 Time: 04:09 Bed 8 Private MD: ED Physician Feroz Rush HPI: 04/03 04:12 This 67 yrs old Female presents to ER via Unassigned with complaints of Back Pain. ms3 04:12 67-year-old female with past medical history of myocardial infarction, coronary artery ms3 disease, hypertension, CVA presents to the emergency department via [facility] after being unable to get off the toilet [place] the police station. EMS notes patient was ambulatory to the ambulance. patient states she has had the same back pain for 10 years. Patient denies change in her back pain at this time. Patient denies bladder or bowel incontinence, numbness, weakness. Historical: - Allergies: 04:16 all depression medications; vc1 04:16 Procardia; vc1 - Home Meds: 04:16 tramadol 50 mg Oral tab [Active]; vc1 - PMHx: 04:16 Arthritis; diabetes mellitus; Hypertensive disorder; Myocardial infarction; TIA vc1 (Myocardial infarcti); - PSHx: 04:16 Appendectomy; breast augmentation; cardiac stent; Cholecystectomy; Gastric Bypass; vc1 hysterectomy; Left hip; - Immunization history:: Client reports receiving the 2nd dose of the Covid vaccine, Flu vaccine is up to date. - Social history:: Smoking status: Patient denies any tobacco usage or history of. ROS: 04:12 Constitutional: Negative for fever, and chills. Neck: Negative for injury, pain, and ms3 swelling, Cardiovascular: Negative for chest pain, and palpitations. Respiratory: Negative for shortness of breath, cough, wheezing, and pleuritic chest pain, Abdomen/GI: Negative for abdominal pain, nausea, vomiting, diarrhea, and constipation, 04:12 Back: Positive for Back pain, 04:12 All other systems are negative, Exam: 04:12 Constitutional: This is a well developed, well nourished patient who is awake, alert, ms3 and in no acute distress. Head/Face: Normocephalic, atraumatic. Chest/axilla: Normal chest wall appearance and motion. Nontender with no deformity. Cardiovascular: Regular rate and rhythm with a normal S1 and S2. No gallops, murmurs, or rubs. Normal PMI, no JVD. No pulse deficits. Respiratory: Lungs have equal breath sounds bilaterally, clear to auscultation and percussion. No rales, rhonchi or wheezes noted. No increased work of breathing, no retractions or nasal flaring. Abdomen/GI: Soft, non-tender, with normal bowel sounds. No distension or tympany. No guarding or rebound. No evidence of tenderness throughout. Back: No spinal tenderness. No costovertebral tenderness. Full range of motion. Skin: Warm, dry with normal turgor. Normal color with no rashes, no lesions, and no evidence of cellulitis. MS/ Extremity: Pulses equal, no cyanosis. Neurovascular intact. Full, normal range of motion. Vital Signs: 04:11 BP 105 / 85; Pulse 83; Resp 17; Temp 97.7; Pulse Ox 100% ; Weight 58.97 kg; Height 5 vc1 ft. 2 in. ; Pain 10/10; 04:11 Body Mass Index 23.78 (58.97 kg, 157.48 cm) vc1 04:11 Pain Scale: Adult vc1 MDM: 04:11 Patient medically screened. ms3 04:12 Differential diagnosis: ruptured disc. Data reviewed: vital signs, nurses notes, and as ms3 a result, I will discharge patient. I considered the following discharge prescriptions or medication management in the emergency department Medications were administered in the Emergency Department. See MAR. Historians other than the Patient: EMS: [facility]. Care significantly affected by the following Social Determinants of Health: Poor access to healthcare and/or lack of insurance. Counseling: I had a detailed discussion with the patient and/or guardian regarding the historical points, exam findings, and any diagnostic results supporting the discharge/admit diagnosis, the need for outpatient follow up, to return to the emergency department if symptoms worsen or persist or if there are any questions or concerns that arise at home. ED course: Discussed physical exam findings with patient. Patient denies change in her back pain. Patient to follow-up with Dr. Holder in 2 to 3 days. Patient understands and agrees with plan. All questions were answered. Return precautions discussed include worsening symptoms, or any other concerns. Administered Medications: 04:19 Drug: Ibuprofen PO 400 mg PO once Route: PO; tm6 04:34 Follow up: Response: No adverse reaction vc1 Disposition Summary: 04/03/23 04:12 Discharge Ordered Notes: Location: Home ms3 Condition: Stable ms3 Diagnosis - Low back pain ms3 Followup: ms3 - With: Anup Holder DO - When: 2 - 3 days - Reason: Recheck today's complaints Discharge Instructions: - Discharge Summary Sheet ms3 - Chronic Back Pain ms3 Forms: - Medication Reconciliation Form ms3 - Thank You Letter ms3 - Antibiotic Education ms3 - Prescription Opioid Use ms3 - Patient Portal Instructions ms3 - Leadership Thank You Letter ms3 Signatures: Feroz Rush DO DO ms3 Radha Banegas RN RN vc1 Choco Blackman RN RN tm6
--- NOTE | 2023-04-03 04:41 | ER ---
Nurse's Notes [facility] Name: Reina Hartley Age: 67 yrs Sex: Female : 1955 Arrival Date: 04/03/2023 Time: 04:09 Bed 8 Private MD: Diagnosis: Low back pain Presentation: 04/03 04:11 Chief complaint: EMS states: She was at the [place] police department and had trouble vc1 getting off of the toilet because her back hurt. Coronavirus screen: Vaccine status: Patient reports receiving the 2nd dose of the covid vaccine. At this time, the client does not indicate any symptoms associated with coronavirus-19. Ebola Screen: Patient negative for fever greater than or equal to 101.5 degrees Fahrenheit, and additional compatible Ebola Virus Disease symptoms Patient denies exposure to infectious person. Patient denies travel to an Ebola-affected area in the 21 days before illness onset. No symptoms or risks identified at this time. Initial Sepsis Screen: Does the patient meet any 2 criteria? No. Patient's initial sepsis screen is negative. Does the patient have a suspected source of infection? No. Patient's initial sepsis screen is negative. Risk Assessment: Do you want to hurt yourself or someone else? Patient reports no desire to harm self or others. Note Patient has chronic back pain. Onset of symptoms is unknown. 04:11 Method Of Arrival: EMS: [facility] vc1 04:11 Acuity: ANDREA 4 vc1 Triage Assessment: 04:18 General: Appears in no apparent distress. uncomfortable, Behavior is calm, cooperative, vc1 appropriate for age. Pain: Complains of pain in back Pain does not radiate. Pain currently is 10 out of 10 on a pain scale. Quality of pain is described as sharp, Pain began years ago. EENT: No deficits noted. No signs and/or symptoms were reported regarding the EENT system. Neuro: Level of Consciousness is awake, alert, obeys commands, Oriented to person, place, time, situation, Appropriate for age. Cardiovascular: No deficits noted. Respiratory: Airway is patent Respiratory effort is even, unlabored, Respiratory pattern is regular, symmetrical. GI: No deficits noted. No signs and/or symptoms were reported involving the gastrointestinal system. : No deficits noted. No signs and/or symptoms were reported regarding the genitourinary system. Derm: No deficits noted. No signs and/or symptoms reported regarding the dermatologic system. Musculoskeletal: Circulation, motion, and sensation intact. Historical: - Allergies: 04:16 all depression medications; vc1 04:16 Procardia; vc1 - Home Meds: 04:16 tramadol 50 mg Oral tab [Active]; vc1 - PMHx: 04:16 Arthritis; diabetes mellitus; Hypertensive disorder; Myocardial infarction; TIA vc1 (Myocardial infarcti); - PSHx: 04:16 Appendectomy; breast augmentation; cardiac stent; Cholecystectomy; Gastric Bypass; vc1 hysterectomy; Left hip; - Immunization history:: Client reports receiving the 2nd dose of the Covid vaccine, Flu vaccine is up to date. - Social history:: Smoking status: Patient denies any tobacco usage or history of. Screenin:21 Abuse screen: Denies threats or abuse. Nutritional screening: No deficits noted. vc1 Tuberculosis screening: No symptoms or risk factors identified. 04:22 [facility] ED Fall Risk Assessment (Adult) History of falling in the last 3 months, vc1 including since admission No falls in past 3 months (0 pts) Confusion or Disorientation No (0 pts) Intoxicated or Sedated No (0 pts) Impaired Gait No (0 pts) Mobility Assist Device Used No (0 pt) Altered Elimination No (0 pt) Score/Fall Risk Level 0 - 2 = Low Risk Oriented to surroundings, Maintained a safe environment, Educated pt \T\ family on fall prevention, incl call for assistance when getting out of bed. Vital Signs: 04:11 BP 105 / 85; Pulse 83; Resp 17; Temp 97.7; Pulse Ox 100% ; Weight 58.97 kg; Height 5 vc1 ft. 2 in. ; Pain 10/; 04:11 Body Mass Index 23.78 (58.97 kg, 157.48 cm) vc1 04:11 Pain Scale: Adult vc1 ED Course: 04:10 Patient arrived in ED. jj6 04:11 Feroz Rush DO is Attending Physician. ms3 04:12 Anup Holder DO is Referral Physician. ms3 04:16 Triage completed. vc1 04:18 Arm band placed on right wrist. vc1 04:21 Patient has correct armband on for positive identification. Bed in low position. Call vc1 light in reach. Pulse ox on. NIBP on. 04:33 No provider procedures requiring assistance completed. Patient did not have IV access vc1 during this emergency room visit. Administered Medications: 04:19 Drug: Ibuprofen PO 400 mg PO once Route: PO; tm6 04:34 Follow up: Response: No adverse reaction vc1 Medication: 04:22 VIS not applicable for this client. vc1 Outcome: 04:12 Discharge ordered by . ms3 04:33 Discharged to home via wheelchair, vc1 04:33 Condition: good 04:33 Discharge instructions given to patient, Instructed on discharge instructions, follow up and referral plans. Demonstrated understanding of instructions, follow-up care, 04:40 Patient left the ED. vc1 Signatures: Feroz Rush DO DO ms3 Dedra Landry jj6 Radha Banegas, RN RN vc1 Choco Blackman RN RN tm6
[2023-04-03 05:37] VITALS: BP 105/85; TEMP 97.7; O2SAT 100
== END ==
LOC: ER 04:09
DX: M54.50 Low back pain, unspecified (principal); Z95.818 Presence of other cardiac implants and grafts; Z88.8 Allergy status to other drugs, medicaments and biological substances; Z98.82 Breast implant status
CPT/HCPCS: 99284

== ENCOUNTER 2023-04-04 08:02 | Inpatient (IN) | payer OTHER ==
--- NOTE | 2023-04-04 08:43 | RAD REPORT ---
EXAM DESCRIPTION: RAD - Chest Single View - 04/04/2023 8:26 am CLINICAL HISTORY: CHEST PAIN Chest pain. COMPARISON: Chest Single View dated 03/20/2023; Chest Single View dated 03/17/2023; Chest Single View da gagan 03/08/2023; Abdomen 1 View (KUB) dated 03/04/2023 FINDINGS: Portable technique limits examination quality. The lungs are grossly clear. The heart is normal in size. No displaced fractures. IMPRESSION: No acute intrathoracic process suspected.
[2023-04-04 08:53] LABS: Absolute Lymphocytes (CBC) 0.6 K/uL (0.7-4.9); Hematocrit 35.2 % (36.0-45.0); Lymphocytes % 13.9 % (15.3-44.8); MCV 80.8 fL (80-100); MPV 7.6 fL (7.6-11.3); Platelets 373 thou/uL (152-406); RBC Red Blood Cell Count 4.35 M/uL (3.86-4.86)
[2023-04-04 09:12] LABS: Troponin High Sensitivity 19.9 pg/mL (<58.9)
[2023-04-04 09:14] LABS: Potassium 2.5 mEq/L (3.5-5.1)
[2023-04-04] MEDS ORDERED: POTASSIUM CL SA 10 MEQ TAB PO ONE (09:22)
[2023-04-04] MEDS ORDERED: NA CHLORIDE 0.9% 500 ML ONE ×2 (09:23→11:40)
[2023-04-04] MEDS ORDERED: Magnesium Sulfate 2gm IVPB 2 G/50 ML BAG IV ONE (09:23)
[2023-04-04] MEDS ORDERED: KCL 20 MEQ/100 mL IVPB 100 ML IV ONE (09:23)
--- NOTE | 2023-04-04 10:07 | ER ---
Nurse's Notes [facility] Name: Reina Hartley Age: 67 yrs Sex: Female : 1955 Arrival Date: 04/04/2023 Time: 08:02 Bed 10 Private MD: Diagnosis: Chest pain, unspecified;Hypokalemia;Hypo-osmolality and hyponatremia Presentation: 04/04 08:11 Chief complaint: EMS states: pt had chest pain while crossing the [employer] parking lot, kc6 became short of breath. pt reports feeling back to normal upon arrival. Coronavirus screen: At this time, the client does not indicate any symptoms associated with coronavirus-19. Ebola Screen: No symptoms or risks identified at this time. Initial Sepsis Screen: Does the patient meet any 2 criteria? No. Patient's initial sepsis screen is negative. Does the patient have a suspected source of infection? No. Patient's initial sepsis screen is negative. Risk Assessment: Do you want to hurt yourself or someone else? Patient reports no desire to harm self or others. Onset of symptoms was April 04, 2023. 08:11 Method Of Arrival: EMS: [facility] kc6 08:11 Acuity: ANDREA 3 kc6 Historical: - Allergies: 08:12 all depression medications; kc6 08:12 Procardia; kc6 - PMHx: 08:12 Arthritis; diabetes mellitus; Hypertensive disorder; Myocardial infarction; TIA kc6 (Myocardial infarcti); - PSHx: 08:12 Appendectomy; breast augmentation; cardiac stent; Cholecystectomy; Gastric Bypass; kc6 hysterectomy; Left hip; - Immunization history:: Adult Immunizations not up to date. - Social history:: Smoking status: Patient denies any tobacco usage or history of. Screenin:12 [facility] ED Fall Risk Assessment (Adult) History of falling in the last 3 months, kc6 including since admission No falls in past 3 months (0 pts) Confusion or Disorientation No (0 pts) Intoxicated or Sedated No (0 pts) Impaired Gait No (0 pts) Mobility Assist Device Used No (0 pt) Altered Elimination No (0 pt) Score/Fall Risk Level 0 - 2 = Low Risk. Abuse screen: Denies threats or abuse. Denies injuries from another. Nutritional screening: No deficits noted. Tuberculosis screening: No symptoms or risk factors identified. Assessment: 08:38 General: Appears in no apparent distress. comfortable, unkempt, well developed, kc6 Behavior is calm, cooperative, appropriate for age. Neuro: Level of Consciousness is awake, alert, obeys commands, Oriented to person, place, time, situation, Appropriate for age. Cardiovascular: Heart tones S1 S2 present Capillary refill < 3 seconds Rhythm is atrial fibrillation. Respiratory: Airway is patent Trachea midline Respiratory effort is even, unlabored, Respiratory pattern is regular, symmetrical. GI: No signs and/or symptoms were reported involving the gastrointestinal system. : No signs and/or symptoms were reported regarding the genitourinary system. EENT: No signs and/or symptoms were reported regarding the EENT system. Derm: No signs and/or symptoms reported regarding the dermatologic system. Skin is intact, is healthy with good turgor, Skin is pink, warm \T\ dry. Musculoskeletal: No signs and/or symptoms reported regarding the musculoskeletal system. Circulation, motion, and sensation intact. Capillary refill < 3 seconds, Range of motion: intact in all extremities. 09:38 Reassessment: Patient appears in no apparent distress at this time. No changes from kc6 previously documented assessment. Patient and/or family updated on plan of care and expected duration. Pain level reassessed. Patient is alert, oriented x 3, equal unlabored respirations, skin warm/dry/pink. 10:26 Reassessment: Patient appears in no apparent distress at this time. No changes from kc6 previously documented assessment. Patient and/or family updated on plan of care and expected duration. Pain level reassessed. Patient is alert, oriented x 3, equal unlabored respirations, skin warm/dry/pink. 13:00 Reassessment: Patient appears in no apparent distress at this time. No changes from kc6 previously documented assessment. Patient and/or family updated on plan of care and expected duration. Pain level reassessed. Patient is alert, oriented x 3, equal unlabored respirations, skin warm/dry/pink. 14:00 Reassessment: Patient appears in no apparent distress at this time. No changes from kc6 previously documented assessment. Patient and/or family updated on plan of care and expected duration. Pain level reassessed. Patient is alert, oriented x 3, equal unlabored respirations, skin warm/dry/pink. 14:35 Reassessment: attempted to call report to 2nd floor. nurse John will call me back. kc6 Vital Signs: 08:11 BP 109 / 71; Pulse 97; Resp 16 S; Temp 97.1(TE); Pulse Ox 100% on R/A; Weight 58.97 kg kc6 (R); Height 5 ft. 2 in. (R); 09:17 BP 104 / 69; Pulse 98; Resp 17 S; Pulse Ox 100% on R/A; kc6 10:26 BP 125 / 83; Pulse 109; Resp 16 S; Pulse Ox 100% on R/A; kc6 12:20 BP 128 / 79; Pulse 83; Resp 13; Pulse Ox 100% ; bp 08:11 Body Mass Index 23.78 (58.97 kg, 157.48 cm) kc6 ED Course: 08:11 Patient arrived in ED. kc6 08:12 Triage completed. kc6 08:12 Arm band placed on. kc6 08:12 Patient maintains SpO2 saturation greater than 95% on room air. kc6 08:13 Nabeel Guardado MD is Attending Physician. ec2 08:13 Patient has correct armband on for positive identification. Bed in low position. Call kc6 light in reach. Side rails up X2. Client placed on continuous cardiac and pulse oximetry monitoring. NIBP monitoring applied. 08:20 Dot Webster, WALI is Primary Nurse. kc6 08:28 XRAY Chest (1 view) In Process Unspecified. EDMS 08:38 Inserted saline lock: 24 gauge in right wrist, using aseptic technique. Blood collected.kc6 10:02 Alvin Edwards MD is Hospitalizing Provider. ec2 12:04 Primary Nurse role handed off by Dot Webster, WALI bp 12:04 Bruce Grewal, WALI is Primary Nurse. bp 15:30 No provider procedures requiring assistance completed. Patient admitted, IV remains in kc6 place. Administered Medications: 09:35 Drug: Potassium Chloride PO 40 mEq PO once Route: PO; kc6 10:27 Follow up: Response: No adverse reaction kc6 09:35 Drug: Potassium Chloride IV 20 mEq IV at calculated rate once; administer over 1-2 kc6 hours Route: IV; Rate: calculated rate; Site: right wrist; 12:00 Follow up: Response: No adverse reaction; IV Status: Completed infusion; IV Intake: kc6 100ml 09:36 Drug: Magnesium Sulfate IVPB 2 grams IVPB once over 2 hrs Route: IVPB; Infused Over: 2 kc6 hrs; Site: right wrist; 11:46 Follow up: Response: No adverse reaction; IV Status: Completed infusion; IV Intake: kc6 100ml 11:05 Drug: Metoprolol PO 25 mg PO once Route: PO; kc6 11:46 Follow up: Response: No adverse reaction kc6 Medication: 15:31 VIS not applicable for this client. kc6 Intake: 11:46 IV: 100ml; Total: 100ml. kc6 12:00 IV: 100ml; Total: 200ml. kc6 Outcome: 10:06 Decision to Hospitalize by Provider. ec2 15:31 Admitted to Med/surg accompanied by tech, via wheelchair, room 210, with chart, Report kc6 called to WALI Swain 15:31 Condition: improved 15:31 Instructed on the need for admit, 15:31 Patient left the ED. kc6 Signatures: Dispatcher [employer] Bruce Yan RN RN bp Campbell, Kaitlyn, RN RN kc6 Nabeel Guardado MD MD ec2
--- NOTE | 2023-04-04 10:07 | EDPHYS ---
Physician Documentation [facility] Name: Reina Hartley Age: 67 yrs Sex: Female : 1955 Arrival Date: 04/04/2023 Time: 08:02 Bed 10 Private MD: ED Physician Nabeel Guardado HPI: 04/04 08:38 This 67 yrs old Female presents to ER via EMS with complaints of Chest Pain, ec2 Shortness Of Breath. 08:38 Patient arrives today for evaluation of chest pain. Patient states that shortly prior ec2 to arrival she started experiencing some discomfort. Patient reports some subjective shortness of breath as well. Patient denies any other concerns.. Historical: - Allergies: 08:12 all depression medications; kc6 08:12 Procardia; kc6 - PMHx: 08:12 Arthritis; diabetes mellitus; Hypertensive disorder; Myocardial infarction; TIA kc6 (Myocardial infarcti); - PSHx: 08:12 Appendectomy; breast augmentation; cardiac stent; Cholecystectomy; Gastric Bypass; kc6 hysterectomy; Left hip; - Immunization history:: Adult Immunizations not up to date. - Social history:: Smoking status: Patient denies any tobacco usage or history of. ROS: 08:38 Constitutional: as per hpi ec2 Exam: 08:38 Constitutional: GEN: NAD Head: atraumatic Eyes: EOMI Ears: External ears are ec2 normal. CV: regular rate LUNGS: no respiratory distress ABD: non-distended SKIN: no evidence of rashes MSK: no evidence of trauma NEURO: moves all extremities equally Vital Signs: 08:11 BP 109 / 71; Pulse 97; Resp 16 S; Temp 97.1(TE); Pulse Ox 100% on R/A; Weight 58.97 kg kc6 (R); Height 5 ft. 2 in. (R); 09:17 BP 104 / 69; Pulse 98; Resp 17 S; Pulse Ox 100% on R/A; kc6 10:26 BP 125 / 83; Pulse 109; Resp 16 S; Pulse Ox 100% on R/A; kc6 12:20 BP 128 / 79; Pulse 83; Resp 13; Pulse Ox 100% ; bp 08:11 Body Mass Index 23.78 (58.97 kg, 157.48 cm) kc6 MDM: 08:13 Patient medically screened. ec2 08:38 Data reviewed: vital signs. ED course: Patient arrives today for chest pain. ec2 Examination remarkable for well-appearing nontoxic dividual is otherwise in no acute distress with a reassuring examination. Will obtain lab work and chest x-ray. EKG obtained, independently reviewed and interpreted by me, shows atrial fibrillation, rate of 100, no acute ST segment elevations, PVC noted, QTc prolongation at 518.. 09:15 ED course: Hypokalemia noted, will give the patient potassium and magnesium.. ec2 09:38 ED course: Metabolic profile shows hyponatremia with a sodium of 127, potassium of 2.5. ec2 CBC reassuring, slight anemia noted at hemoglobin of 11.6. Troponin within normal ranges. Chest x-ray shows no acute thoracic process. Will admit the patient for chest pain, hyponatremia, hypokalemia. . 04/04 08:13 Order name: Basic Metabolic Panel; Complete Time: 09:38 ec2 04/04 08:13 Order name: CBC with Diff; Complete Time: 09:38 ec2 04/04 08:13 Order name: Troponin HS; Complete Time: 09:38 ec2 04/04 10:30 Order name: LFT's [facility] 04/04 10:30 Order name: Magnesium [facility] 04/04 10:30 Order name: Phosphorus [facility] 04/04 10:35 Order name: Osmolality, Serum [facility] 04/04 10:35 Order name: Urine Osmolality nj04/04 10:35 Order name: Urine Potassium Random nj04/04 10:35 Order name: Urine Sodium Random nj04/04 10:35 Order name: Urine Creatinine [facility] 04/04 10:35 Order name: UAM [facility] 04/04 15:07 Order name: Troponin High Sensitivity [facility] 04/04 15:17 Order name: Basic Metabolic Panel EDDE 04/04 08:13 Order name: XRAY Chest (1 view); Complete Time: 09:38 ec2 04/04 08:13 Order name: EKG; Complete Time: 08:14 ec2 04/04 08:13 Order name: Cardiac monitoring; Complete Time: 08:37 ec2 04/04 08:13 Order name: EKG - Nurse/Tech; Complete Time: 08:37 ec2 04/04 08:13 Order name: IV Saline Lock; Complete Time: 08:37 ec2 04/04 08:13 Order name: Labs collected and sent; Complete Time: 08:37 ec2 04/04 08:13 Order name: O2 Per Protocol; Complete Time: 08:20 ec2 04/04 08:13 Order name: O2 Sat Monitoring; Complete Time: 08:20 ec2 Administered Medications: 09:35 Drug: Potassium Chloride PO 40 mEq PO once Route: PO; kc6 10:27 Follow up: Response: No adverse reaction kc6 09:35 Drug: Potassium Chloride IV 20 mEq IV at calculated rate once; administer over 1-2 kc6 hours Route: IV; Rate: calculated rate; Site: right wrist; 12:00 Follow up: Response: No adverse reaction; IV Status: Completed infusion; IV Intake: kc6 100ml 09:36 Drug: Magnesium Sulfate IVPB 2 grams IVPB once over 2 hrs Route: IVPB; Infused Over: 2 kc6 hrs; Site: right wrist; 11:46 Follow up: Response: No adverse reaction; IV Status: Completed infusion; IV Intake: kc6 100ml 11:05 Drug: Metoprolol PO 25 mg PO once Route: PO; kc6 11:46 Follow up: Response: No adverse reaction kc6 Disposition Summary: 04/04/23 10:06 Hospitalization Ordered Notes: Hospitalization Status: Inpatient Admission ec2 Provider: Alvin Edwards ecHellen Condition: Stable ec2 Problem: an acute exacerbation ec2 Symptoms: are unchanged ec2 Bed/Room Type: Standard ec2 Location: Telemetry/MedSurg (Inpatient)(04/04/23 14:08) bd Room Assignment: [facility] [place][note 2](04/04/23 14:08) bd Diagnosis - Chest pain, unspecified ec2 - Hypokalemia ec2 - Hypo-osmolality and hyponatremia ec2 Forms: - Medication Reconciliation Form ec2 - SBAR form ec2 - Leadership Thank You Letter ec2 Signatures: Dispatcher [employer] Vijaya Lofton Lee, FNP-C FNP-Cla1 Dot Webster RN RN kc6 Maddie Suarez RN RN kb3 Nabeel Guardado MD MD ec2 Corrections: (The following items were deleted from the chart) 10:01 09:38 ED course: Metabolic profile shows hyponatremia with a sodium of 127, potassium ec2 of 2.5. CBC reassuring, slight anemia noted at hemoglobin of 11.6. Troponin within normal ranges. Chest x-ray shows no acute thoracic process. Will obtain repeat EKG and troponin at 2 hours. . ec2 12:46 10:06 Telemetry/MedSurg (Inpatient) ec2 kb3 12:46 10:06 ec2 kb3 14:08 12:46 [facility] ER HOLD kb3 bd 14:08 12:46 ERHOLD- kb3 bd
[2023-04-04] MEDS ORDERED: ONDANSETRON 4 MG/2 ML VIAL IV PRN (10:50)
[2023-04-04] MEDS ORDERED: METOPROLOL XL 50 MG TAB PO ONE (10:59)
[2023-04-04] MEDS ORDERED: NS KCL 40MEQ 40 MEQ/1,000 ML BAG IV SCH (11:00)
[2023-04-04] MEDS: INSULIN REGULAR (HUMAN) 100 UNIT/ML SQ SCH ×3 (11:30→21:00)
[2023-04-04 11:52] LABS: Specific Gravity 1.008 (1.005-1.030); Urine Bacteria 20-50 /HPF (<20); Urine Bilirubin NEGATIVE (Negative); Urine Blood Negative (Negative); Urine Clarity Extremely Turbid (Clear); Urine Color Light-Yellow (Yellow); Urine Glucose NEGATIVE (Negative); Urine Mucus Slight /HPF (None Seen); Urine Protein 1+ (Negative); Urine Urobilinogen Normal (Normal); Urine pH 6.5 (5.0-7.0)
[2023-04-04 12:54] LABS: Albumin 3.6 g/dL (3.4-5.0); Bilirubin Direct 0.5 mg/dL (0-0.2); Bilirubin Indirect, Calculated 0.4 mg/dL (0.2-0.8); Bilirubin Total 0.9 mg/dL (0.2-1.0); Magnesium 1.9 mg/dL (1.6-2.4); Phosphorus 3.4 mg/dL (2.5-4.9); Protein, Total 7.5 g/dL (6.4-8.2)
[2023-04-04 15:17] LABS: Potassium 2.8 mEq/L (3.5-5.1)
--- NOTE | 2023-04-04 15:28 | P.HP ---
Certification for Inpatient Patient admitted to: Inpatient With expected LOS: >2 Midnights Patient will require the following post-hospital care: None Practitioner: I am a practitioner with admitting privileges, knowledge of patient current condition, hospital course, and medical plan of care. Services: Services provided to patient in accordance with Admission requirements found in Title 42 Section 412.3 of the Code of Federal Regulations Patient History Date of Service: 04/04/23 Reason for admission: Dyspnea, hypokalemia, hyponatremia History of Present Illness: 67-year-old female with history of COPD, diabetes mellitus type 2, hypertension, CAD, gastric bypass, chronic hyponatremia/hypokalemia, atrial fibrillation, medical noncompliance presents to the emergency department for shortness of breath. She was recently seen in the hospital on 03/11/2023 for GI complaints, hyponatremia, hypokalemia. She was evaluated in the emergency department, her labs are significant for sodium of 127 potassium 2.5 chloride 85 bicarb 34 glucose 133 hemoglobin 11.6 hematocrit 35.2 urine with possible UTI-culture reflexed Patient was noted to be in atrial fibrillation which she does have a previous diagnosis of, she currently lives in a residential, has not been on her medications for last 4 months. She does have chronic diarrhea around 3 episodes per day and history of gastric bypass. Allergies nifedipine [From Procardia] Allergy (Mild, Verified 11/27/22 11:23) UNKNOWN insulin regular Allergy (Verified 03/02/23 20:52) Nausea/Vomiting Home Medications: Hydrocodone 7.5/APAP 325 [[place] 7.5/325 mg*] 1 tab PO Q4H PRN tab 02/21/23 LORazepam [Ativan*] 0.5 mg PO Q8H PRN tab 02/21/23 Albuterol Neb [Proventil 0.083% Neb Soln] 2.5 mg NEB [id number] PRN amp 02/24/23 Metoprolol Tartrate [Lopressor*] 25 mg PO BID 6AM 6PM tab 02/24/23 Acetaminophen [Tylenol] 650 mg PO Q4HP PRN 03/02/23 Docusate [Colace Cap*] 200 mg PO DAILY 03/02/23 Ferrous Sulfate [Ferrous Sulfate*] 325 mg PO DAILY 03/02/23 Multivitamin with Minerals [Multivitamins with Minerals] 1 each PO DAILY 03/02/23 Omeprazole 20 mg PO DAILY 03/02/23 Polyethylene Glycol 3350 [Miralax] 17 gm PO DAILYPRN PRN 03/02/23 Sodium Chloride Tab [Sodium Chloride*] 1 gm PO BID 03/02/23 Clopidogrel Bisulfate [Plavix*] 75 mg PO DAILY 30 Days #30 tab 03/04/23 Insulin -Regular Human [Novolin -R*] See Protocol SQ ACHS ml 03/04/23 Lactulose [Cephulac*] 15 ml PO DAILY 30 Days #450 ml 03/04/23 Lidocaine [Dermacinrx Lidocan] 1 each TP DAILY 30 Days #30 patch 03/04/23 - Past Medical/Surgical History Diabetic: Yes -: Gastritis / Esophagitis -: s/p lap band -: CAD s/p PCI -: h/o alcohol abuse, with ?liver cirrhosis -: chronic intermittent diarrhea -: CVA vs TIA -: COPD (mild) -: Chronic hyponatremia -: s/p PCI (~2019) -: cholecystectomy -: Appendectomy -: Lap-Band surgery -: EGD/C-scope (early 2022) -: hip fracture Psychosocial/ Personal History: lives with daughter, recently moved to area - Family History Father -: Heart disease, Hypertension Mother -: Heart disease, Hypertension - Social History Alcohol use: No CD- Drugs: No Caffeine use: Yes Place of Residence: Home Review of Systems 10-point ROS is otherwise unremarkable Respiratory: Shortness of Breath Gastrointestinal: Diarrhea Physical Examination - Physical Exam General: Alert, In no apparent distress, Oriented x3 HEENT: Atraumatic, PERRLA, Mucous membr. moist/pink Neck: Supple, 2+ carotid pulse no bruit, No LAD Respiratory: Clear to auscultation bilaterally, Normal air movement Cardiovascular: Regular rate/rhythm, Normal S1 S2 Gastrointestinal: Normal bowel sounds, No tenderness Musculoskeletal: No tenderness Integumentary: No rashes Neurological: Normal speech, Normal strength at 5/5 x4 extr, Normal tone - Studies Laboratory Data (last 24 hrs) 04/04/23 04/04/23 04/04/23 08:35 08:35 08:35 WBC 4.50 Hgb 11.6 L Hct 35.2 L Plt Count 373 Sodium 127 L Potassium 2.5 L* BUN 5 L Creatinine 0.74 Glucose 133 H Phosphorus 3.4 Magnesium 1.9 Total Bilirubin 0.9 AST 30 ALT 25 Alkaline Phosphatase 128 H Assessment and Plan - Plan Assessment: Acute on chronic hyponatremia, hypokalemia Dyspnea Chronic atrial fibrillation Diabetes mellitus type [id number] Plan: Acute on chronic hyponatremia, hypokalemia Additional studies ordered, nephrology consulted Repeating potassium, serial chemistries Mag level ordered Likely secondary to chronic diarrhea, GI losses Dyspnea Monitor on telemetry Trend troponins Improving/resolved Chronic atrial fibrillation Metoprolol continued Noncompliant with medications at home Monitor on telemetry Diabetes mellitus type [id number] ACHS Accu-Chek, sliding scale insulin DVT PPX: Lovenox Code status: Full Discharge Plan: Home Plan to discharge in: 72 Hours - Advance Directives Does patient have a Living Will: No Does patient have a Durable POA for Healthcare: No - Code Status/Comfort Care Code Status Assessed: Yes (full code) Critical Care: No Time Spent Managing Pts Care (In Minutes): 70
[2023-04-04 15:57] VITALS: O2SAT 100
[2023-04-04 15:59] VITALS: BMI 23.8
[2023-04-04] MEDS ORDERED: KCL 20 MEQ/100 mL IVPB 20 MEQ/100 ML BAG IV SCH (16:00)
[2023-04-04] MEDS: NS KCL 40MEQ 40 MEQ/1,000 ML BAG IV SCH (16:31)
[2023-04-04] MEDS ORDERED: INFLUENZA VACCINE (for 6+ mo) 0.5 ML DOSE IMVAC ONE (17:00)
[2023-04-04] MEDS: METOPROLOL TAR 25 MG TAB PO SCH (17:28)
[2023-04-05] MEDS: TRAZODONE 50 MG TABLET PO PRN ×2 (00:38→20:15)
[2023-04-05] MEDS ORDERED: CALCIUM CARBONATE CHEW 500MG TAB PO ONE (02:48)
[2023-04-05] MEDS ORDERED: TRAMADOL HCL 50 MG TAB PO ONE (02:49)
[2023-04-05] MEDS: METOPROLOL TAR 25 MG TAB PO SCH ×2 (05:46→16:46)
[2023-04-05] MEDS: NS KCL 40MEQ 40 MEQ/1,000 ML BAG IV SCH (06:35)
[2023-04-05 07:06] LABS: Absolute Lymphocytes (CBC) 1.1 K/uL (0.7-4.9); Hematocrit 28.4 % (36.0-45.0); Lymphocytes % 20.6 % (15.3-44.8); MCV 80.9 fL (80-100); MPV 7.5 fL (7.6-11.3); Platelets 294 thou/uL (152-406); RBC Red Blood Cell Count 3.51 M/uL (3.86-4.86)
[2023-04-05] MEDS: INSULIN REGULAR (HUMAN) 100 UNIT/ML SQ SCH ×4 (07:30→20:16)
[2023-04-05 07:37] LABS: Albumin 2.8 g/dL (3.4-5.0); Bilirubin Total 0.4 mg/dL (0.2-1.0); Magnesium 2.2 mg/dL (1.6-2.4); Phosphorus 2.2 mg/dL (2.5-4.9); Potassium 2.7 mEq/L (3.5-5.1); Protein, Total 5.8 g/dL (6.4-8.2); Thyroid Stimulating Hormone 1.98 uIU/mL (0.358-3.740)
--- NOTE | 2023-04-05 07:54 | P.CNS ---
Date of Consult: 04/05/23 Reason for Consult: Hyponatremia/ Hypokalemia Requesting Physician: bj joy Chief Complaint: Dyspnea, hypokalemia, hyponatremia History of Present Illness: 67-year-old female with history of COPD, diabetes mellitus type 2, hypertension, CAD, gastric bypass, chronic hyponatremia/hypokalemia, atrial fibrillation, medical noncompliance presents to the emergency department for shortness of breath. She was recently seen in the hospital on 03/11/2023 for GI complaints, hyponatremia, hypokalemia. She was evaluated in the emergency department, her labs are significant for sodium of 127 potassium 2.5 chloride 85 bicarb 34 glucose 133 hemoglobin 11.6 hematocrit 35.2 urine with possible UTI-culture reflexed Patient was noted to be in atrial fibrillation which she does have a previous diagnosis of, she currently lives in a prison, has not been on her medications for last 4 months. She does have chronic diarrhea around 3 episodes per day and history of gastric bypass. 08:38 This 67 yrs old Female presents to ER via EMS with complaints of Chest Pain, ec2 Shortness Of Breath. 08:38 Patient arrives today for evaluation of chest pain. Patient states that shortly prior ec2 to arrival she started experiencing some discomfort. Patient reports some subjective shortness of breath as well. Patient denies any other concerns. Allergies nifedipine [From Procardia] Allergy (Mild, Verified 04/04/23 16:05) Hives/Rash insulin regular Allergy (Verified 03/02/23 20:52) Nausea/Vomiting Home medications list reviewed: Yes Home Medications: Hydrocodone 7.5/APAP 325 [[place] 7.5/325 mg*] 1 tab PO Q4H PRN tab 02/21/23 LORazepam [Ativan*] 0.5 mg PO Q8H PRN tab 02/21/23 Albuterol Neb [Proventil 0.083% Neb Soln] 2.5 mg NEB [id number] PRN amp 02/24/23 Metoprolol Tartrate [Lopressor*] 25 mg PO BID 6AM 6PM tab 02/24/23 Acetaminophen [Tylenol] 650 mg PO Q4HP PRN 03/02/23 Docusate [Colace Cap*] 200 mg PO DAILY 03/02/23 Ferrous Sulfate [Ferrous Sulfate*] 325 mg PO DAILY 03/02/23 Multivitamin with Minerals [Multivitamins with Minerals] 1 each PO DAILY 03/02/23 Omeprazole 20 mg PO DAILY 03/02/23 Polyethylene Glycol 3350 [Miralax] 17 gm PO DAILYPRN PRN 03/02/23 Sodium Chloride Tab [Sodium Chloride*] 1 gm PO BID 03/02/23 Clopidogrel Bisulfate [Plavix*] 75 mg PO DAILY 30 Days #30 tab 03/04/23 Insulin -Regular Human [Novolin -R*] See Protocol SQ ACHS ml 03/04/23 Lactulose [Cephulac*] 15 ml PO DAILY 30 Days #450 ml 03/04/23 Lidocaine [Dermacinrx Lidocan] 1 each TP DAILY 30 Days #30 patch 03/04/23 - Past Medical/Surgical History Diabetic: Yes -: Gastritis / Esophagitis -: DM II -: CAD s/p PCI -: h/o alcohol abuse, with ?liver cirrhosis -: chronic intermittent diarrhea -: CVA vs TIA -: COPD (mild) -: Chronic hyponatremia -: [place] -: HTN -: s/p PCI (~2019) -: cholecystectomy -: Appendectomy -: Lap-Band surgery -: EGD/C-scope (early 2022) -: hip fracture Psychosocial/ Personal History: lives with daughter, recently moved to [facility] - Family History Father Medical History: Heart disease, Hypertension Mother Medical History: Heart disease, Hypertension, Diabetes - Social History Smoking Status: Current every day smoker Alcohol use: No CD- Drugs: No Caffeine use: Yes Place of Residence: [facility] Review of Systems 10-point ROS is otherwise unremarkable Physical Examination Temp Pulse Resp BP Pulse Ox 98.1 F 88 17 102/59 L 97 04/05/23 04:00 04/05/23 05:46 04/05/23 04:00 04/05/23 05:46 04/05/23 04:00 General: In no apparent distress, Oriented x3, Cooperative HEENT: Atraumatic Neck: Supple Respiratory: Clear to auscultation bilaterally Cardiovascular: No edema, Regular rate/rhythm Gastrointestinal: Soft and benign, Non-distended Musculoskeletal: No clubbing, No contractures Integumentary: No rashes, No cyanosis Neurological: Normal speech Laboratory Data (last 24 hrs) 04/04/23 04/04/23 04/04/23 08:35 08:35 08:35 WBC 4.50 Hgb 11.6 L Hct 35.2 L Plt Count 373 Sodium 127 L Potassium 2.5 L* BUN 5 L Creatinine 0.74 Glucose 133 H Phosphorus 3.4 Magnesium 1.9 Total Bilirubin 0.9 AST 30 ALT 25 Alkaline Phosphatase 128 H Imagings Data: EXAM DESCRIPTION: RAD - Chest Single View - 04/04/2023 8:26 am CLINICAL HISTORY: CHEST PAIN Chest pain. COMPARISON: Chest Single View dated 03/20/2023; Chest Single View dated 03/17/2023; Chest Single View dated 03/08/2023; Abdomen 1 View (KUB) dated 03/04/2023 FINDINGS: Portable technique limits examination quality. The lungs are grossly clear. The heart is normal in size. No displaced fractures. IMPRESSION: No acute intrathoracic process suspected. Conclusions/Impression: CKD I with Proteinuria -No NSAIDs Hyponatremia -Start salt tabs -Fluid Restriction 1000 ml/day -Repeat BMP today Hypokalemia -Replete as ordered Hypophosphatemia -Replete as ordered Hypoalbuminemia -Consider protein supplementation Anemia in chronic illness -Monitor H&H Acute cystitis with hematuria -Follow up culture Hospitalist and ER notes reviewed Thank you kindly for the consultation
[2023-04-05] MEDS ORDERED: POTASS/SODIUM PHOSPHATE 1 PKT POWD.PACK PO ONE (07:56)
[2023-04-05] MEDS: ENOXAPARIN 40 MG/0.4 ML SQ SCH (07:58)
[2023-04-05] MEDS: ASPIRIN EC 81 MG TAB PO SCH (07:58)
[2023-04-05] MEDS ORDERED: KCL 20 MEQ/100 mL IVPB 20 MEQ/100 ML BAG IV SCH (08:00)
[2023-04-05] MEDS: SODIUM CHLORIDE 1 GM TAB PO SCH ×4 (08:03→20:16)
[2023-04-05] MEDS ORDERED: POTASSIUM 25 MEQ EFFERV TAB PO ONE (09:00)
[2023-04-05] MEDS ORDERED: POTASSIUM CL 40 MEQ in NA CHLORIDE 0.9% 500 ML IV SCH (11:00)
--- NOTE | 2023-04-05 15:45 | P.PN ---
Subjective Date of Service: 04/05/23 Chief Complaint: Dyspnea, hypokalemia, hyponatremia Patient reports 3 bouts of diarrhea yesterday, none since this morning. Sodium level remain low. She denies any new complaint today. Physical Examination - Vital Signs Temperature: 97.4 F Blood Pressure: 90/59 Pulse: 84 Respirations: 18 Pulse Ox (%): 100 Assessment And Plan - Plan Physical Exam General: Alert, In no apparent distress, Oriented x3 HEENT: Mucous membr. moist/pink Neck: Supple, No LAD. Respiratory: Clear to auscultation bilaterally, Normal air movement Cardiovascular: Regular rate/rhythm, Normal S1 S2 Gastrointestinal: Normal bowel sounds, No tenderness Musculoskeletal: No tenderness Integumentary: No rashes Neurological: Normal speech, no focal motor deficit. Assessment: Acute on chronic hyponatremia, hypokalemia Dyspnea Chronic atrial fibrillation Diabetes mellitus type [id number] Chronic diarrhea Plan: Acute on chronic hyponatremia, hypokalemia Patient reported noncompliance with his medications. Lower serum osmolality suggest SIADH Nephrology input appreciated. Patient started on sodium tablets and placed on fluid restriction. Decrease IV fluid rate. Monitor potassium level and replete as needed. Monitor magnesium levels and replete magnesium as needed Dyspnea/Fatigue Likely related to electrolyte abnormalities. Improving/resolved Activity as tolerated. Chronic atrial fibrillation Continue metoprolol. Noncompliant with medications at home Monitor on telemetry Patient is not anticoagulated. Chronic diarrhea Noted patient is on multiple laxatives and stool softeners. Hold all laxatives and stool softeners for now. Diabetes mellitus type [id number] ACHS Accu-Chek, sliding scale insulin DVT PPX: Lovenox Code status: Full Discharge Plan: Home
[2023-04-05] MEDS ORDERED: ALBUTEROL 2.5 MG/3 ML NEB SOL NEB PRN (15:52)
[2023-04-05 16:01] LABS: Potassium 3.4 mEq/L (3.5-5.1)
[2023-04-05] MEDS: HYDROCODONE/APAP 7.5/325 MG TAB PO PRN ×2 (16:35→23:02)
--- NOTE | 2023-04-05 17:52 | EKG ---
Test Date: 2023-04-04 Test Time: 08:26:23 Spindle Plumber: JOSE ALFREDO MEASUREMENT RESULTS: Intervals: Rate: 100 RI: QRSD: 114 QT: 402 QTc: 518 Kuna: P: RI: QRS: 44 T: 251 INTERPRETIVE STATEMENTS: Atrial fibrillation with premature ventricular or aberrantly conducted complexes ST & T wave abnormality, consider anterolateral ischemia or digitalis effect Prolonged QT Abnormal ECG Compared to ECG 03/17/2023 21:01:05 Ventricular premature complex(es) now present ST (T wave) deviation now present Sinus rhythm no longer present T-wave abnormality no longer present Possible ischemia still present Electronically Signed On 04-05-23 17:50:41 COPING MACHINE OPERATOR by David Irby
[2023-04-05] MEDS ORDERED: POTASSIUM CL SA 10 MEQ TAB PO ONE (18:49)
[2023-04-05] MEDS ORDERED: NS KCL 40MEQ 40 MEQ/1,000 ML BAG IV SCH (23:00)
[2023-04-06 01:10] LABS: Potassium 4.7 mEq/L (3.5-5.1)
[2023-04-06] MEDS: METOPROLOL TAR 25 MG TAB PO SCH (05:27)
[2023-04-06] MEDS: HYDROCODONE/APAP 7.5/325 MG TAB PO PRN (05:29)
[2023-04-06 05:53] LABS: Hematocrit 23.6 % (36.0-45.0); Lymphocytes % 36.2 % (15.3-44.8); MCV 81.3 fL (80-100); MPV 7.9 fL (7.6-11.3); Platelets 227 thou/uL (152-406); RBC Red Blood Cell Count 2.91 M/uL (3.86-4.86)
[2023-04-06 06:07] LABS: Magnesium 1.8 mg/dL (1.6-2.4); Phosphorus 2.5 mg/dL (2.5-4.9); Potassium 4.6 mEq/L (3.5-5.1)
[2023-04-06] MEDS ORDERED: MAGNESIUM SULFATE 1 gm IVPB 1 GM/100 ML BAG IV ONE (06:13)
[2023-04-06] MEDS: INSULIN REGULAR (HUMAN) 100 UNIT/ML SQ SCH (07:30)
[2023-04-06] MEDS ORDERED: CODEINE 30MG/APAP 300MG TAB PO PRN (07:54)
[2023-04-06 08:55] LABS: Platelet Estimate ADEQ; White Blood Cell Scan OK (OK)
[2023-04-06 08:56] LABS: Anisocytosis 1+; Blood Morphology Comment NOTED (NOT SEEN)
[2023-04-06] MEDS ORDERED: CIPROFLOXACIN HCL 500 MG TAB PO SCH (09:00)
[2023-04-06] MEDS: ASPIRIN EC 81 MG TAB PO SCH (09:00)
[2023-04-06] MEDS: ENOXAPARIN 40 MG/0.4 ML SQ SCH (09:00)
[2023-04-06] MEDS: SODIUM CHLORIDE 1 GM TAB PO SCH (09:00)
[2023-04-06] MEDS ORDERED: HOME MED 1 EA UNK (Omeprazole [Omeprazole] 20 MG Capsule.Dr) PO SCH (09:00)
[2023-04-06] MEDS ORDERED: PANTOPRAZOLE 40MG TABLET PO SCH (09:00)
[2023-04-06] MEDS ORDERED: CLOPIDOGREL 75 MG TABLET PO SCH (09:00)
[2023-04-06 09:20] LABS: Potassium 4.9 mEq/L (3.5-5.1)
--- NOTE | 2023-04-06 09:32 | P.PN ---
Date of Service: 04/06/23 Vital Signs Temp Pulse Resp BP Pulse Ox 97.7 F 84 17 114/73 100 04/06/23 04:00 04/06/23 05:27 04/06/23 05:29 04/06/23 05:27 04/06/23 05:29 Medications Acetaminophen/Codeine Phosphate (Codeine 30mg/Apap 300mg Tab) 1 tab PO Q4H PRN PRN Reason: Pain scale 5-7 (Moderate) Albuterol Sulfate (Albuterol 2.5 Mg/3 Ml Neb [place]) 2.5 mg NEB [id number] PRN PRN Reason: SHORTNESS OF BREATH Aspirin (Aspirin Ec 81 Mg Tab) 81 mg PO DAILY [facility] Last Admin: 04/05/23 07:58 Dose: 81 mg Ciprofloxacin (Ciprofloxacin Hcl 500 Mg Tab) 500 mg PO BID [facility]; Protocol Clopidogrel Bisulfate (Clopidogrel 75 Mg Tablet) 75 mg PO DAILY [facility] Enoxaparin Sodium (Enoxaparin 40 Mg/0.4 Ml) 40 mg SQ DAILY [facility] Last Admin: 04/05/23 07:58 Dose: 40 mg Potassium Chloride/Sodium Chloride (Kcl 40meq In Ns 1000 Ml Ivbag) 40 meq in 1,000 mls @ 50 mls/hr IV .Q20H [facility] Last Admin: 04/05/23 23:03 Dose: 1,000 mls Insulin Human Regular (Insulin Regular (Human) 100 Unit/Ml) 0 unit SQ ACHS [facility]; Protocol Last Admin: 04/05/23 20:16 Dose: Not Given Metoprolol Tartrate (Metoprolol Tar 25 Mg Tab) 25 mg PO BID 6AM 6PM [facility] Last Admin: 04/06/23 05:27 Dose: Not Given Ondansetron HCl (Ondansetron 4 Mg/2 Ml Vial) 4 mg IV Q6HP PRN PRN Reason: NAUSEA / VOMITING Last Admin: 04/05/23 21:00 Dose: 4 mg Pantoprazole Sodium (Pantoprazole 40mg Tablet) 40 mg PO DAILY [facility] Sodium Chloride (Sodium Chloride 1 Gm Tab) 1 gm PO QID [facility] Last Admin: 04/05/23 20:16 Dose: 1 gm Trazodone HCl (Trazodone 50 Mg Tablet) 50 mg PO BEDTIME PRN PRN PRN Reason: INSOMNIA Last Admin: 04/05/23 20:15 Dose: 50 mg Assessment/ Plan: Nephrology No dyspnea No chest pain No acute events overnight Vitals, medications, blood work and imaging reviewed in the chart General: In no apparent distress, Oriented x3, Cooperative HEENT: Atraumatic Neck: Supple Respiratory: Clear to auscultation bilaterally Cardiovascular: No edema, Regular rate/rhythm Gastrointestinal: Soft and benign, Non-distended Musculoskeletal: No clubbing, No contractures Integumentary: No rashes, No cyanosis Neurological: Normal speech Laboratory Data (last 24 hrs) 04/04/23 04/04/23 04/04/23 08:35 08:35 08:35 WBC 4.50 Hgb 11.6 L Hct 35.2 L Plt Count 373 Sodium 127 L Potassium 2.5 L* BUN 5 L Creatinine 0.74 Glucose 133 H Phosphorus 3.4 Magnesium 1.9 Total Bilirubin 0.9 AST 30 ALT 25 Alkaline Phosphatase 128 H Imagings Data: EXAM DESCRIPTION: RAD - Chest Single View - 04/04/2023 8:26 am CLINICAL HISTORY: CHEST PAIN Chest pain. COMPARISON: Chest Single View dated 03/20/2023; Chest Single View dated 03/17/2023; Chest Single View dated 03/08/2023; Abdomen 1 View (KUB) dated 03/04/2023 FINDINGS: Portable technique limits examination quality. The lungs are grossly clear. The heart is normal in size. No displaced fractures. IMPRESSION: No acute intrathoracic process suspected. Conclusions/Impression: CKD I with Proteinuria -No NSAIDs Hyponatremia -Continue salt tabs -Fluid Restriction 1000 ml/day Hypokalemia -Replete prn -Stop IVF with potassium Hypophosphatemia -Replete prn Hypoalbuminemia -Consider protein supplementation -Encourage nutrition Anemia in chronic illness -Monitor H&H -Check iron & B12 status -Consider IV iron Acute cystitis with hematuria -Continue Cipro Hospitalist note reviewed
[2023-04-06] MEDS ORDERED: NA CHLORIDE 0.9% 1,000 ML IV SCH (10:00)
[2023-04-06 10:12] LABS: Ferritin 65.3 ng/mL (8-388)
--- NOTE | 2023-04-06 12:50 | P.DS ---
Admission Date: 04/04/23 Discharge Date: 04/06/23 Disposition: ROUTINE DISCHARGE Discharge Condition: FAIR Reason for Admission: Dyspnea, hypokalemia, hyponatremia Brief History of Present Illness: 67-year-old female with history of COPD, diabetes mellitus type 2, hypertension, CAD, gastric bypass, chronic hyponatremia/hypokalemia, atrial fibrillation, medical noncompliance presented to the emergency department for shortness of breath. She was recently seen in the hospital on 03/11/2023 for GI complaints, hyponatremia, hypokalemia. She was evaluated in the emergency department, her labs significant for sodium of 127 potassium 2.5 chloride 85 bicarb 34 glucose 133 hemoglobin 11.6 hematocrit 35.2 urine with possible UTI-culture reflexed Patient was noted to be in atrial fibrillation which is not new for her. She currently lives in a [facility], has not been on her medications for last 4 months. She does have chronic diarrhea around 3 episodes per day and history of gastric bypass. Patient was hospitalized for further management. Hospital Course: Assessment: Acute on chronic hyponatremia, hypokalemia Dyspnea Chronic atrial fibrillation Diabetes mellitus type [id number] Chronic diarrhea Plan: Acute on chronic hyponatremia, hypokalemia Patient reported noncompliance with his medications. Lower serum osmolality suggest SIADH Seen by nephrology Dr. Lopez Patient started on sodium tablets and placed on fluid restriction up to 1 L/day Also placed on IV NS. Sodium level improved significantly Hypokalemia corrected with IV and oral potassium replacement Patient has been clinically stable. Dyspnea/Fatigue Likely related to electrolyte abnormalities. Improved Chronic atrial fibrillation Continued metoprolol. Noncompliant with medications at home Patient is not anticoagulated. Chronic diarrhea Noted patient is on multiple laxatives and stool softeners. Held all laxatives and stool softeners during the hospital stay. Stool softener Colace resumed on discharge. Diabetes mellitus type [id number] Managed with ACHS Accu-Chek, sliding scale insulin during the hospital stay. Vital Signs/Physical Exam: Temp Pulse Resp BP Pulse Ox 97.2 F 77 16 99/61 99 04/06/23 08:00 04/06/23 08:00 04/06/23 08:00 04/06/23 08:00 04/06/23 08:00 General: Alert, In no apparent distress, Oriented x3 HEENT: Mucous membr. moist/pink Neck: Supple, JVD not distended Respiratory: Clear to auscultation bilaterally, Normal air movement, Diminished Cardiovascular: No edema, Regular rate/rhythm, Normal S1 S2 Gastrointestinal: Normal bowel sounds, Soft and benign, Non-distended Musculoskeletal: No swelling, No tenderness Integumentary: No rashes, No cyanosis Neurological: Normal gait, Normal strength at 5/5 x4 extr Laboratory Data at Discharge: WBC 2.90 thou/uL (4.3-10.9) L 04/06/23 05:04 Hgb 8.0 g/dL (12.0-15.0) L D 04/06/23 05:04 Hct 23.6 % (36.0-45.0) L 04/06/23 05:04 Plt Count 227 thou/uL (152-406) 04/06/23 05:04 Sodium 130 mEq/L (136-145) L 04/06/23 08:45 Potassium 4.9 mEq/L (3.5-5.1) 04/06/23 08:45 BUN 5 mg/dL (7-18) L 04/06/23 08:45 Creatinine 0.67 mg/dL (0.55-1.02) 04/06/23 08:45 Glucose 113 mg/dL (74-106) H 04/06/23 08:45 Phosphorus 2.5 mg/dL (2.5-4.9) 04/06/23 05:04 Magnesium 1.8 mg/dL (1.6-2.4) 04/06/23 05:04 Total Bilirubin 0.4 mg/dL (0.2-1.0) 04/05/23 06:43 AST 20 U/L (15-37) 04/05/23 06:43 ALT 19 U/L (13-56) 04/05/23 06:43 Alkaline Phosphatase 98 U/L (45-117) D 04/05/23 06:43 Home Medications: Acetaminophen [Tylenol] 650 mg PO Q4HP PRN 03/02/23 Insulin -Regular Human [Novolin -R*] See Protocol SQ ACHS ml 03/04/23 Albuterol Neb [Proventil 0.083% Neb Soln] 2.5 mg NEB [id number] PRN #120 amp 04/06/23 Ciprofloxacin HCl [Cipro] 500 mg PO BID #10 tab 04/06/23 Clopidogrel Bisulfate [Plavix*] 75 mg PO DAILY 30 Days #30 tab 04/06/23 Codeine/APAP [Tylenol #3*] 1 tab PO Q4H PRN #20 tab 04/06/23 Docusate [Colace Cap*] 200 mg PO DAILY #30 cap 04/06/23 Ferrous Sulfate [Ferrous Sulfate*] 325 mg PO DAILY #30 tab 04/06/23 Lidocaine [Dermacinrx Lidocan] 1 each TP DAILY 30 Days #30 patch 04/06/23 Metoprolol Tartrate [Lopressor*] 25 mg PO BID 6AM 6PM #60 tab 04/06/23 Multivitamin with Minerals [Multivitamins with Minerals] 1 each PO DAILY #30 tab 04/06/23 Omeprazole 20 mg PO DAILY #30 tab 04/06/23 Polyethylene Glycol 3350 [Miralax] 17 gm PO DAILYPRN PRN #30 packet 04/06/23 Sodium Chloride Tab [Sodium Chloride*] 1 gm PO TID #90 tab 04/06/23 New Medications: Albuterol Neb [Proventil 0.083% Neb Soln] 2.5 mg NEB [id number] PRN #120 amp PRN Reason: Shortness Of Breath Ciprofloxacin HCl [Cipro] 500 mg PO BID #10 tab Docusate [Colace Cap*] 200 mg PO DAILY #30 cap Lidocaine [Dermacinrx Lidocan] 1 each TP DAILY 30 Days #30 patch Ferrous Sulfate [Ferrous Sulfate*] 325 mg PO DAILY #30 tab Metoprolol Tartrate [Lopressor*] 25 mg PO BID 6AM 6PM #60 tab Polyethylene Glycol 3350 [Miralax] 17 gm PO DAILYPRN PRN #30 packet PRN Reason: Constipation Multivitamin with Minerals [Multivitamins with Minerals] 1 each PO DAILY #30 tab Omeprazole 20 mg PO DAILY #30 tab Clopidogrel Bisulfate [Plavix*] 75 mg PO DAILY 30 Days #30 tab Sodium Chloride Tab [Sodium Chloride*] 1 gm PO TID #90 tab Codeine/APAP [Tylenol #3*] 1 tab PO Q4H PRN #20 tab PRN Reason: Pain Scale 5-7 (Moderate) Physician Discharge Instructions: Diagnosis Acute on chronic hyponatremia Hypokalemia Chronic atrial fibrillation Diabetes mellitus type [id number] Chronic diarrhea You were admitted to the hospital because your sodium and potassium levels were low. You were also found to have urinary tract infection. You were given IV fluid and placed on sodium tablets to bring your sodium level and free water intake restriction to 1 L/day as recommended by the kidney specialist who saw you during this hospitalization. Your sodium level improved with these measures. Your potassium level was also corrected with IV and oral replacements Your urine culture grew bacteria called Klebsiella for which you have been prescribed oral ciprofloxacin to treat the urinary tract infection. You need to follow-up with a primary care physician within a week or 2. You need to follow-up with the kidney specialist Dr. Reyes within a week or 2 regarding your sodium level. Diet: AHA Activity: Fall precautions Followup: NONE,NONE [Primary Care Provider] - 1-2 Weeks Jovanny Reyes DO [ACTIVE - CAN ADMIT] - 1-2 Weeks Time spent managing pt's care (in minutes): 33
[2023-04-06 13:36] VITALS: BP 111/78; TEMP 98
== END 2023-04-06 15:21 | disposition home or self-care (01) | DRG 644 ==
LOC: ER 08:02 → ERHOLD 10:45 → 2ND 15:21
PROVIDERS: ADMIT Hospitalist; ATTEND Internal Medicine
DX: E22.2 Syndrome of inappropriate secretion of antidiuretic hormone (principal); I48.20 Chronic atrial fibrillation, unspecified; N30.01 Acute cystitis with hematuria; E87.6 Hypokalemia; I49.3 Ventricular premature depolarization; N18.1 Chronic kidney disease, stage 1; E11.22 Type 2 diabetes mellitus with diabetic chronic kidney disease; D63.1 Anemia in chronic kidney disease; M19.90 Unspecified osteoarthritis, unspecified site; E83.39 Other disorders of phosphorus metabolism; E88.09 Other disorders of plasma-protein metabolism, not elsewhere classified; J44.9 Chronic obstructive pulmonary disease, unspecified; K52.9 Noninfective gastroenteritis and colitis, unspecified; I25.2 Old myocardial infarction; I25.10 Atherosclerotic heart disease of native coronary artery without angina pectoris; B96.1 Klebsiella pneumoniae [K. pneumoniae] as the cause of diseases classified elsewhere; Z88.8 Allergy status to other drugs, medicaments and biological substances; Z79.4 Long term (current) use of insulin; Z95.5 Presence of coronary angioplasty implant and graft; Z90.49 Acquired absence of other specified parts of digestive tract; Z79.02 Long term (current) use of antithrombotics/antiplatelets; Z98.84 Bariatric surgery status; Z86.73 Personal history of transient ischemic attack (TIA), and cerebral infarction without residual deficits; Z90.710 Acquired absence of both cervix and uterus; Z91.199 Patient's noncompliance with other medical treatment and regimen due to unspecified reason; Z79.899 Other long term (current) drug therapy
CPT/HCPCS: 36415; 71045; 80048; 80053; 80076; 81001; 82570; 82728; 82947; 83540; 83735; 83930; 83935; 84100; 84132; 84300; 84439; 84443; 84466; 84484; 85025; 87077; 87086; 87088; 87186; 93005; 96365; 99284; 99285; J1650; J1815; J2405; J3475; J3480; J7040

== ENCOUNTER → 2023-04-06 | Emergency (ER) | payer OTHER ==
[~2023-04-06] MED LIST changes: -IBUPROFEN 400 MG TAB ONE; +POTASSIUM 25 MEQ EFFERV TAB ONE
[2023-04-06 20:57] LABS: SARS-CoV-2 Antigen Rapid Res Negative (Negative)
--- NOTE | 2023-04-06 21:08 | EDPHYS ---
Physician Documentation [facility] Name: Reina Hartley Age: 67 yrs Sex: Female : 1955 Arrival Date: 04/06/2023 Time: 19:43 Bed 9 Private MD: ED Physician Bill Edwards HPI: 04/06 20:48 This 67 yrs old Female presents to ER via EMS with complaints of Headache, Knee Pain. kb 20:49 Patient is a 67-year-old female who presents for sore throat and bilateral ear pain kb that started today. Denies cough, congestion, fever.. Historical: - Allergies: 19:58 all depression medications; km8 19:58 Procardia; km8 - Home Meds: 20:40 tramadol 50 mg Oral tab [Active]; tl4 - PMHx: 19:58 Arthritis; diabetes mellitus; Hypertensive disorder; Myocardial infarction; TIA km8 (Myocardial infarcti); - PSHx: 19:58 Appendectomy; breast augmentation; cardiac stent; Cholecystectomy; Gastric Bypass; km8 hysterectomy; Left hip; - Immunization history:: Client reports having NOT received the Covid vaccine. Flu vaccine is up to date. - Social history:: Smoking status: Patient reports the use of cigarette tobacco products, smokes one-half pack cigarettes per day, Patient/guardian denies using alcohol, street drugs. ROS: 20:48 Constitutional: Negative for fever, chills, and weight loss, kb 20:48 ENT: Positive for ear pain, sore throat, 20:48 MS/extremity: Positive for pain, 20:48 All other systems are negative, Exam: 20:49 Constitutional: This is a well developed, well nourished patient who is awake, alert, kb and in no acute distress. Head/Face: Normocephalic, atraumatic. ENT: Moist Mucous membranes Cardiovascular: Regular rate Respiratory: Respirations even and unlabored. No increased work of breathing. Talking in full sentences Skin: Warm, dry with normal turgor. Normal color. Neuro: Awake and alert, GCS 15, oriented to person, place, time, and situation. Moves all extremities. Normal gait. 20:49 ENT: External ear(s): are unremarkable, Ear canal(s): are normal, TM's: are normal, Posterior pharynx: is normal, Vital Signs: 19:57 BP 150 / 82; Pulse 75; Resp 16; Temp 97.7(TE); Pulse Ox 98% on R/A; Weight 63.5 kg (R); km8 Height 5 ft. 2 in. (R); Pain 10/10; 21:30 BP 158 / 90; Pulse 77; Resp 18; Pulse Ox 100% on R/A; tl4 19:57 Body Mass Index 25.61 (63.50 kg, 157.48 cm) [facility] 19:57 Pain Scale: Adult km8 MDM: 20:05 Patient medically screened. kb 20:49 Differential Diagnosis Strep, pharyngitis, otitis media, flu, COVID, URI, otitis kb externa. Data reviewed: vital signs, nurses notes. Historians other than the Patient: EMS: [facility]. 21:07 Counseling: I had a detailed discussion with the patient and/or guardian regarding the kb historical points, exam findings, and any diagnostic results supporting the discharge/admit diagnosis, lab results, the need for outpatient follow up, a family practitioner, to return to the emergency department if symptoms worsen or persist or if there are any questions or concerns that arise at home. 04/06 20:27 Order name: Flu; Complete Time: 21:07 kb 04/06 20:27 Order name: SARS-COV-2 Antigen Rapid; Complete Time: 20:57 kb 04/06 20:27 Order name: Strep; Complete Time: 21:07 kb 04/06 21:00 Order name: Throat Culture EDMS Administered Medications: No medications were administered Disposition: 04/07 09:06 Co-signature as Attending Physician, Bill Edwards MD I reviewed the patient's care rn provided by the Advanced Practice Provider and agree with the diagnosis and treatment plan. Disposition Summary: 04/06/23 21:08 Discharge Ordered Notes: Location: Home kb Condition: Stable kb Diagnosis - Otalgia, bilateral kb - Pain in throat kb Followup: kb - With: Emergency Department - When: As needed - Reason: Worsening of condition Followup: kb - With: Private Physician - When: 2 - 3 days - Reason: Recheck today's complaints, Continuance of care, Re-evaluation by your physician Discharge Instructions: - Discharge Summary Sheet kb - Earache, Adult kb - Sore Throat, [id number] kb Forms: - Medication Reconciliation Form kb - Thank You Letter kb - Antibiotic Education kb - Prescription Opioid Use kb - Patient Portal Instructions kb - Leadership Thank You Letter kb Signatures: Dispatcher [employer] Cami Guthrie, ISAIAS FOX-Bill Elkins MD MD rn Marx, Katie, RN RN km8 LeahYefri viera 4
--- NOTE | 2023-04-06 21:08 | ER ---
Nurse's Notes [facility] Name: Reina Hartley Age: 67 yrs Sex: Female : 1955 Arrival Date: 04/06/2023 Time: 19:43 Bed 9 Private MD: Diagnosis: Otalgia, bilateral;Pain in throat Presentation: 04/06 19:57 Chief complaint: EMS states: toned out for sore throat and migraine starting today. km8 Coronavirus screen: Client denies travel out of the [place] in the last 14 days. Ebola Screen: No symptoms or risks identified at this time. Initial Sepsis Screen: Does the patient meet any 2 criteria? No. Patient's initial sepsis screen is negative. Does the patient have a suspected source of infection? No. Patient's initial sepsis screen is negative. Risk Assessment: Do you want to hurt yourself or someone else? Patient reports no desire to harm self or others. Onset of symptoms was April 06, 2023. 19:57 Method Of Arrival: EMS: [facility] 19:57 Acuity: ANDREA 3 8 Triage Assessment: 19:58 Headache History: The patient has had previous headaches and this one is similar to km8 previous episodes. General: Appears in no apparent distress. comfortable, Behavior is calm, cooperative, appropriate for age. Pain: Complains of pain in head and throat Pain currently is 10 out of 10 on a pain scale. Pain began gradually, Also complains of no other associated symptoms. EENT: Reports sore throat. Neuro: Level of Consciousness is awake, alert, obeys commands, Oriented to person, place, time, situation, Reports headache occipital area. Cardiovascular: Denies chest pain, shortness of breath, Capillary refill < 3 seconds Patient's skin is warm and dry. Respiratory: Airway is patent Respiratory effort is even, unlabored, Respiratory pattern is regular, symmetrical. GI: No signs and/or symptoms were reported involving the gastrointestinal system. : No signs and/or symptoms were reported regarding the genitourinary system. Derm: Skin is intact, is healthy with good turgor, Skin is dry, Skin is pink, warm \T\ dry. normal, Skin temperature is warm. Musculoskeletal: No signs and/or symptoms reported regarding the musculoskeletal system. Circulation, motion, and sensation intact. Range of motion: intact in all extremities. Historical: - Allergies: 19:58 all depression medications; km8 19:58 Procardia; km8 - Home Meds: 20:40 tramadol 50 mg Oral tab [Active]; tl4 - PMHx: 19:58 Arthritis; diabetes mellitus; Hypertensive disorder; Myocardial infarction; TIA km8 (Myocardial infarcti); - PSHx: 19:58 Appendectomy; breast augmentation; cardiac stent; Cholecystectomy; Gastric Bypass; km8 hysterectomy; Left hip; - Immunization history:: Client reports having NOT received the Covid vaccine. Flu vaccine is up to date. - Social history:: Smoking status: Patient reports the use of cigarette tobacco products, smokes one-half pack cigarettes per day, Patient/guardian denies using alcohol, street drugs. Screenin:39 [facility] ED Fall Risk Assessment (Adult) History of falling in the last 3 months, tl4 including since admission No falls in past 3 months (0 pts) Confusion or Disorientation No (0 pts) Intoxicated or Sedated No (0 pts) Impaired Gait No (0 pts) Mobility Assist Device Used No (0 pt) Altered Elimination No (0 pt) Score/Fall Risk Level 0 - 2 = Low Risk Oriented to surroundings, Maintained a safe environment, Educated pt \T\ family on fall prevention, incl call for assistance when getting out of bed, Assessed \T\ reinforced patient's understanding of fall precautions, Provided non-skid footwear, Hourly rounding (assess needs \T\ fall precautionary measures) done, Used ambulatory aids as needed (educated on \T\ assisted with), Used gait belt as appropriate. Abuse screen: Denies threats or abuse. Denies injuries from another. Nutritional screening: No deficits noted. Tuberculosis screening: No symptoms or risk factors identified. Assessment: 20:38 General: Appears in no apparent distress. Behavior is calm, cooperative. Pain: tl4 Complains of pain in headache. Neuro: Reports headache. Cardiovascular: No deficits noted. Respiratory: No deficits noted. GI: No deficits noted. No signs and/or symptoms were reported involving the gastrointestinal system. : No deficits noted. No signs and/or symptoms were reported regarding the genitourinary system. EENT: No deficits noted. No signs and/or symptoms were reported regarding the EENT system. 21:55 Reassessment: pt not in room. unable to locate pt in ed. tl4 22:12 Reassessment: pt not in room. unable to locate pt. ALEJANDRO states he witnessed pt leave ed. tl4 Vital Signs: 19:57 BP 150 / 82; Pulse 75; Resp 16; Temp 97.7(TE); Pulse Ox 98% on R/A; Weight 63.5 kg (R); km8 Height 5 ft. 2 in. (R); Pain 10/10; 21:30 BP 158 / 90; Pulse 77; Resp 18; Pulse Ox 100% on R/A; tl4 19:57 Body Mass Index 25.61 (63.50 kg, 157.48 cm) km8 19:57 Pain Scale: Adult [facility] ED Course: 19:53 Patient arrived in ED. es 19:58 Triage completed. km8 19:58 Arm band placed on right wrist. km8 20:04 Cami Anderson FNP-C is [facility]. kb 20:04 Bill Edwards MD is Attending Physician. kb 20:37 Yefri Holm is Primary Nurse. tl4 20:37 Strep Sent. tl4 20:38 SARS-COV-2 Antigen Rapid Sent. tl4 20:38 Flu Sent. tl4 20:40 Patient has correct armband on for positive identification. Placed in gown. Bed in low tl4 position. Call light in reach. Side rails up X2. Provided Education on: ed process. Client placed on continuous cardiac and pulse oximetry monitoring. NIBP monitoring applied. Door closed. Lights dimmed. Moved to private room. Warm blanket given. 20:40 No provider procedures requiring assistance completed. tl4 22:11 Patient did not have IV access during this emergency room visit. tl4 Administered Medications: No medications were administered Medication: 20:39 VIS not applicable for this client. tl4 Outcome: 21:08 Discharge ordered by . kb 22:13 Eloped from patient exam room, after seeing physician Time discovered patient gone: tl4 April 06, 2023 at 21:55 Pt left belongings. Pt was to be discharged but left without discharge instructions. 22:13 unknown 22:13 Discharge instructions given to pt eloped prior to receiving discharge instructions. 22:14 Patient left the ED. tl4 Signatures: Cami Anderson FNP-C PORTABLE MACHINE SANDER-Marian White Katie RN RN km8 Logdahl, Yefri tl4
[2023-04-07 01:50] VITALS: BP 158/90; TEMP 97.7; O2SAT 100
== END ==
LOC: ER 19:43
DX: H92.03 Otalgia, bilateral (principal); R07.0 Pain in throat; F17.210 Nicotine dependence, cigarettes, uncomplicated; Z11.52 Encounter for screening for COVID-19; Z88.8 Allergy status to other drugs, medicaments and biological substances; Z28.310 Unvaccinated for COVID-19; Z98.82 Breast implant status
CPT/HCPCS: 36415; 87070; 87081; 87804; 87811

== ENCOUNTER → 2023-04-09 | Emergency (ER) | payer OTHER ==
[~2023-04-09] MED LIST changes: +MORPHINE 4 MG/ML SYR ONE; +NA CHLORIDE 0.9% 500 ML ONE; +ONDANSETRON 4 MG/2 ML VIAL ONE; -POTASSIUM 25 MEQ EFFERV TAB ONE
[2023-04-09 04:02] LABS: Protime INR 0.99
[2023-04-09 04:16] LABS: Albumin 2.8 g/dL (3.4-5.0); Bilirubin Direct 0.2 mg/dL (0-0.2); Bilirubin Indirect, Calculated 0.3 mg/dL (0.2-0.8); Bilirubin Total 0.5 mg/dL (0.2-1.0); Potassium 3.2 mEq/L (3.5-5.1); Protein, Total 6.3 g/dL (6.4-8.2); Troponin High Sensitivity 17.5 pg/mL (<58.9)
[2023-04-09 04:19] LABS: Absolute Lymphocytes (CBC) 0.9 K/uL (0.7-4.9); Hematocrit 28.2 % (36.0-45.0); Lymphocytes % 22.7 % (15.3-44.8); MCV 81.2 fL (80-100); MPV 7.4 fL (7.6-11.3); Platelets 290 thou/uL (152-406); RBC Red Blood Cell Count 3.48 M/uL (3.86-4.86)
--- NOTE | 2023-04-09 05:35 | EDPHYS ---
Physician Documentation [facility] Name: Reina Hartley Age: 67 yrs Sex: Female : 1955 Arrival Date: 04/09/2023 Time: 02:18 Bed 8 Private MD: Elias Ivy HPI: 04/09 02:24 This 67 yrs old Female presents to ER via Unassigned with complaints of left savage arm pain. 02:24 The patient or guardian complains of decreased range of motion, pain, that is acute. savage left shoulder. Historical: - Allergies: 02:50 all depression medications; la4 02:50 Procardia; la4 - PMHx: 02:50 Arthritis; diabetes mellitus; Hypertensive disorder; Myocardial infarction; TIA la4 (Myocardial infarcti); - PSHx: 02:50 Appendectomy; breast augmentation; cardiac stent; Cholecystectomy; Gastric Bypass; la4 hysterectomy; Left hip; - Immunization history:: Adult Immunizations up to date, Pneumococcal vaccine is not up to date, Flu vaccine is up to date. - Social history:: Smoking status: Patient denies any tobacco usage or history of. - Family history:: not pertinent. - Code Status:: Full code. ROS: 02:25 Constitutional: Negative for fever, chills, and weight loss, Eyes: Negative for injury, savage pain, redness, and discharge, ENT: Negative for injury, pain, and discharge, Neck: Negative for injury, pain, and swelling, Cardiovascular: Negative for chest pain, palpitations, and edema, Respiratory: Negative for shortness of breath, cough, wheezing, and pleuritic chest pain, Abdomen/GI: Negative for abdominal pain, nausea, vomiting, diarrhea, and constipation, Back: Negative for injury and pain, : Negative for injury, bleeding, discharge, and swelling, Skin: Negative for injury, rash, and discoloration, Neuro: Negative for headache, weakness, numbness, tingling, and seizure, Psych: Negative for depression, anxiety, suicide ideation, homicidal ideation, and hallucinations, Allergy/Immunology: Negative for hives, rash, and allergies, Endocrine: Negative for neck swelling, polydipsia, polyuria, polyphagia, and marked weight changes, Hematologic/Lymphatic: Negative for swollen nodes, abnormal bleeding, and unusual bruising, 02:25 MS/extremity: Positive for decreased range of motion, pain, swelling, of the left bicep and left tricep, Exam: 02:25 Constitutional: This is a well developed, well nourished patient who is awake, alert, savage and in no acute distress. Head/Face: Normocephalic, atraumatic. Eyes: Pupils equal round and reactive to light, extra-ocular motions intact. Lids and lashes normal. Conjunctiva and sclera are non-icteric and not injected. Cornea within normal limits. Periorbital areas with no swelling, redness, or edema. ENT: Nares patent. No nasal discharge, no septal abnormalities noted. Tympanic membranes are normal and external auditory canals are clear. Oropharynx with no redness, swelling, or masses, exudates, or evidence of obstruction, uvula midline. Mucous membranes moist. Neck: Trachea midline, no thyromegaly or masses palpated, and no cervical lymphadenopathy. Supple, full range of motion without nuchal rigidity, or vertebral point tenderness. No Meningismus. Chest/axilla: Normal chest wall appearance and motion. Nontender with no deformity. No lesions are appreciated. Cardiovascular: Regular rate and rhythm with a normal S1 and S2. No gallops, murmurs, or rubs. Normal PMI, no JVD. No pulse deficits. Respiratory: Lungs have equal breath sounds bilaterally, clear to auscultation and percussion. No rales, rhonchi or wheezes noted. No increased work of breathing, no retractions or nasal flaring. Abdomen/GI: Soft, non-tender, with normal bowel sounds. No distension or tympany. No guarding or rebound. No evidence of tenderness throughout. Back: No spinal tenderness. No costovertebral tenderness. Full range of motion. Female : Normal external genitalia. Skin: Warm, dry with normal turgor. Normal color with no rashes, no lesions, and no evidence of cellulitis. Neuro: Awake and alert, GCS 15, oriented to person, place, time, and situation. Cranial nerves II-XII grossly intact. Motor strength 5/5 in all extremities. Sensory grossly intact. Cerebellar exam normal. Normal gait. Psych: Awake, alert, with orientation to person, place and time. Behavior, mood, and affect are within normal limits. 02:25 Musculoskeletal/extremity: ROM: limited active range of motion due to pain, limited passive range of motion due to pain, Circulation is intact in all extremities. Sensation intact. Compartment Syndrome exam of affected extremity: is normal. Joints: All joints are normal except painful range of motion, tenderness, DVT Exam: no swelling, negative Homans' sign noted on exam, no appreciated bluish discoloration, no erythema, no increased warmth, pain, tenderness, Vital Signs: 01:30 BP 118 / 97; Pulse 96; Resp 98; Temp 98.6; Pulse Ox 100% ; la4 02:00 BP 106 / 78; Pulse 73; Resp 20; Pulse Ox 98% ; la4 02:08 BP 168 / 83; Pulse 74; Resp 24; Temp 98.6; Pulse Ox 100% on R/A; Weight 63.5 kg; Height la4 5 ft. 2 in. ; Pain 10/10; 02:08 Body Mass Index 25.61 (63.50 kg, 157.48 cm) la4 02:08 Pain Scale: Adult la4 02:08 reports lower back pain with left knee pain la4 [place] Coma Score: 03:06 Eye Response: spontaneous(4). Motor Response: obeys commands(6). Verbal Response: la4 oriented(5). Total: 15. MDM: 02:20 Patient medically screened. [facility] 02:26 Differential diagnosis: Anterior dislocation without fracture, Posterior dislocation savage without fracture, glenoid fracture, tendonitis, closed fracture, tendonitis. Data reviewed: vital signs, nurses notes, lab test result(s), EKG, radiologic studies, CT scan, plain films. Consideration of Admission/Observation Escalation of care including admission/observation considered. I considered the following discharge prescriptions or medication management in the emergency department Medications were administered in the Emergency Department. See MAR. Independent interpretation of the following test(s) in the Emergency Department EKG: See my EKG interpretation above. Care significantly affected by the following chronic conditions: Hypertension. 03:38 Test considered but Not performed: CT: no ct chest. savage 04/09 02:22 Order name: Basic Metabolic Panel; Complete Time: 04:38 savage 04/09 02:22 Order name: CBC with Diff; Complete Time: 04:38 savage 04/09 02:22 Order name: LFT's; Complete Time: 04:38 [facility] 04/09 02:22 Order name: Magnesium; Complete Time: 04:38 [facility] 04/09 02:22 Order name: NT PRO-BNP; Complete Time: 04:38 [facility] 04/09 02:22 Order name: PT-INR; Complete Time: 04:05 [facility] 04/09 02:22 Order name: Troponin HS; Complete Time: 04:38 [facility] 04/09 02:22 Order name: Lipase; Complete Time: 04:38 [facility] 04/09 02:27 Order name: Troponin HS: 4am; Complete Time: 05:34 [facility] 04/09 02:48 Order name: Glucose, Ancillary Testing; Complete Time: 03:32 EDMS 04/09 02:22 Order name: XRAY Chest (1 view) [facility] 04/09 02:22 Order name: CT Head C Spine [facility] 04/09 02:22 Order name: Humerus Left XRAY [facility] 04/09 02:22 Order name: EKG; Complete Time: 02:22 [facility] 04/09 02:22 Order name: Cardiac monitoring; Complete Time: 02:40 [facility] 04/09 02:22 Order name: EKG - Nurse/Tech; Complete Time: 02:40 [facility] 04/09 02:22 Order name: IV Saline Lock; Complete Time: 03:32 [facility] 04/09 02:22 Order name: Labs collected and sent; Complete Time: 03:32 [facility] 04/09 02:22 Order name: O2 Per Protocol; Complete Time: 02:40 [facility] 04/09 02:22 Order name: O2 Sat Monitoring; Complete Time: 02:40 [facility] 04/09 02:52 Order name: Sling; Complete Time: 04:19 [facility] Administered Medications: 03:31 Drug: Ondansetron IVP 4 mg IVP once; over 2 minutes Route: IVP; Site: left forearm; la4 03:32 Drug: NS 0.9% IV 500 ml IV at bolus once Route: IV; Rate: bolus; Site: left forearm; la4 03:32 Drug: morphine IVP or IV 4 mg IVP once over 4 mins Route: IVP; Infused Over: 4 mins; la4 Site: left forearm; 05:32 Drug: Potassium PO Effervescent Tablet 25 mEq PO once; dissolve in 4 ounces of water or nw1 juice Route: PO; Disposition Summary: 04/09/23 05:35 Discharge Ordered Notes: Location: Home savage Problem: new savage Symptoms: have improved savage Condition: Stable savage Diagnosis - Pain in left upper arm savage - Unspecified symptoms and signs involving the musculoskeletal system savage - Hypokalemia savage - Anemia, unspecified savage Followup: savage - With: Private Physician - When: 2 - 3 days - Reason: Recheck today's complaints, Continuance of care, Re-evaluation by your physician Followup: savage - With: David Irby MD - When: 2 - 3 days - Reason: Recheck today's complaints, Re-evaluation by your physician Followup: savage - With: Jose L Torres MD - When: 2 - 3 days - Reason: Recheck today's complaints, Re-evaluation by your physician Discharge Instructions: - Discharge Summary Sheet savage - Potassium Content of Foods savage - Musculoskeletal Pain savage - Shoulder Pain savage - Shoulder Pain, [id number] savage - Aspirin and Your Heart savage - Hypokalemia [facility] Forms: - Medication Reconciliation Form [facility] - Thank You Letter savage - Antibiotic Education savage - Prescription Opioid Use savage - Patient Portal Instructions savage - Leadership Thank You Letter [facility] Prescriptions: - acetaminophen-codeine 300-30 mg Oral tablet - take 2 tablet ORAL route every 6 hours; 20 tablet; Refills: 0, Product [facility] Selection Permitted - Motrin IB 200 mg Oral tablet - take 2 tablet ORAL route every 6 hours As needed as needed with food; 30 savage tablet; Refills: 0, Product Selection Permitted Signatures: Dispatcher [employer] Elias Cheng MD MD cha Andrews, La'Rea, RN RN la4 Kristy Deng RN RN nw1
--- NOTE | 2023-04-09 05:35 | ER ---
Nurse's Notes [facility] Name: Reina Hartley Age: 67 yrs Sex: Female : 1955 Arrival Date: 04/09/2023 Time: 02:18 Bed 8 Private MD: Diagnosis: Pain in left upper arm;Unspecified symptoms and signs involving the musculoskeletal system;Hypokalemia;Anemia, unspecified Presentation: 04/09 02:08 Chief complaint: Patient states: Numbness to left arm. Pt reports homelessness and that la4 stool to bilateral lower extremities is from episode of diarrhea EMS states: Pt initial call for stroke like symptoms but initial assessment negative. Pt found homeless wrapped in blankets covered in dry stool and pt reported to be cold. Pt had shirt on with no bottoms upon arrival to ED w/ dry stool note to bilateral legs. Coronavirus screen: Vaccine status: Patient reports receiving the 2nd dose of the covid vaccine. reports having 3 doses. Ebola Screen: Patient negative for fever greater than or equal to 101.5 degrees Fahrenheit, and additional compatible Ebola Virus Disease symptoms Patient denies exposure to infectious person. Patient denies travel to an Ebola-affected area in the 21 days before illness onset. No symptoms or risks identified at this time. 02:08 Method Of Arrival: EMS: [facility] la4 02:08 Initial Sepsis Screen: Does the patient meet any 2 criteria? RR > 20 per min. No. la4 Patient's initial sepsis screen is negative. Does the patient have a suspected source of infection? No. Patient's initial sepsis screen is negative. Risk Assessment: Do you want to hurt yourself or someone else? Patient reports no desire to harm self or others. Onset of symptoms was April 09, 2023. Care prior to arrival: None. 02:08 Acuity: ANDREA 2 la4 02:08 Care prior to arrival: blankets given. la4 Triage Assessment: 02:50 General: Appears in no apparent distress. cold. Behavior is calm, cooperative, la4 appropriate for age, Smells of stool. Pain: Denies pain. Complains of pain in left knee Pain does not radiate. Pain currently is 10 out of 10 on a pain scale. Quality of pain is described as "hurts". Neuro: No deficits noted. Shane Agitation-Sedation Scale (RASS): 0 - Alert and Calm Level of Consciousness is awake, alert, obeys commands, Oriented to person, place, time, situation, Appropriate for age Creative Project Manager are equal bilaterally weak bilaterally pt w/ hx of surgeries to bilateral arms w/ limited ROM since. Moves all extremities. Weakness Gait is ataxic, not witnessed'. Speech is normal, Facial symmetry appears normal, Pupils are PERRLA, Numbness in left hand and left arm Reports numbness in left hand and left arm. Cardiovascular: No deficits noted. Heart tones S1 S2 Capillary refill < 3 seconds is brisk toes skin cool and dry . Rhythm is sinus rhythm. Respiratory: Airway is patent Trachea midline Respiratory effort is even, unlabored, Respiratory pattern is regular, symmetrical, Breath sounds are clear bilaterally. GI: Stools are reported to be loose, dry stool noted to bilateral lower extremities. : No deficits noted. No signs and/or symptoms were reported regarding the genitourinary system. Derm: Skin is pink, warm \\T\\ dry. Skin temperature is cool abrasions noted to left index, middle, and ring finger. Pt states wounds are not abrasions but from spilling coffee on her hands. Pt reports homelessness. Musculoskeletal: Circulation, motion, and sensation intact. Capillary refill < 3 seconds, is brisk, fingers. Atrophy noted in right antecubital area and right elbow. Historical: - Allergies: 02:50 all depression medications; la4 02:50 Procardia; la4 - PMHx: 02:50 Arthritis; diabetes mellitus; Hypertensive disorder; Myocardial infarction; TIA la4 (Myocardial infarcti); - PSHx: 02:50 Appendectomy; breast augmentation; cardiac stent; Cholecystectomy; Gastric Bypass; la4 hysterectomy; Left hip; - Immunization history:: Adult Immunizations up to date, Pneumococcal vaccine is not up to date, Flu vaccine is up to date. - Social history:: Smoking status: Patient denies any tobacco usage or history of. - Family history:: not pertinent. - Code Status:: Full code. Screenin:06 [facility] ED Fall Risk Assessment (Adult) History of falling in the last 3 months, la4 including since admission Yes- fall prone (multiple falls) (3 pts) Confusion or Disorientation No (0 pts) Intoxicated or Sedated No (0 pts) Impaired Gait Yes (1 pt) Mobility Assist Device Used No (0 pt) Altered Elimination No (0 pt) Score/Fall Risk Level 3 or more points = High Risk Oriented to surroundings, Provided non-skid footwear, Hourly rounding (assess needs \\T\\ fall precautionary measures) done, Implemented a Fall Risk Plan of Care. Abuse screen: Denies threats or abuse. Denies injuries from another. Nutritional screening: No deficits noted. Tuberculosis screening: No symptoms or risk factors identified. Assessment: 03:06 Reassessment: No changes from previously documented assessment. Patient is alert, la4 oriented x 3, equal unlabored respirations, skin warm/dry/pink. See triage assessment. General: Appears in no apparent distress. Neuro: Shane Agitation-Sedation Scale (RASS): 0 - Alert and Calm Level of Consciousness is awake, alert, obeys commands, Oriented to person, place, time, situation, Appropriate for age. Vital Signs: 01:30 BP 118 / 97; Pulse 96; Resp 98; Temp 98.6; Pulse Ox 100% ; la4 02:00 BP 106 / 78; Pulse 73; Resp 20; Pulse Ox 98% ; la4 02:08 BP 168 / 83; Pulse 74; Resp 24; Temp 98.6; Pulse Ox 100% on R/A; Weight 63.5 kg; Height la4 5 ft. 2 in. ; Pain 10/10; 02:08 Body Mass Index 25.61 (63.50 kg, 157.48 cm) la4 02:08 Pain Scale: Adult la4 02:08 reports lower back pain with left knee pain la4 Vitals: 03:06 Cardiac Rhythm Assessment Regular Sinus rhythm. la4 Crescent Coma Score: 03:06 Eye Response: spontaneous(4). Motor Response: obeys commands(6). Verbal Response: la4 oriented(5). Total: 15. ED Course: 02:19 Patient arrived in ED. ty 02:20 Elias Gamez MD is Attending Physician. savage 02:39 Daniel Barry RN is Primary Nurse. la4 02:49 Triage completed. la4 02:50 Arm band placed on right wrist. Patient placed in an exam room, on a stretcher, on la4 oxygen, on school bus monitor, on pulse oximetry, Patient bed bath complete to clean pt of dry stool, changed into gown, diaper placed, socks applied, warm blankets given. cleaned of soap and water and left open to air. 03:06 No apparent distress. Awaiting lab results. la4 03:06 Patient has correct armband on for positive identification. Placed in gown. Bed in low la4 position. Call light in reach. Side rails up X2. Provided Education on: plan of care. Client placed on continuous cardiac and pulse oximetry monitoring. NIBP monitoring applied. 03:06 No provider procedures requiring assistance completed. la4 03:09 Humerus Left XRAY Sent. la4 03:32 CT Head C Spine Sent. la4 03:32 XRAY Chest (1 view) Sent. la4 03:32 Basic Metabolic Panel Sent. la4 03:32 CBC with Diff Sent. la4 03:32 LFT's Sent. la4 03:32 Magnesium Sent. la4 03:32 NT PRO-BNP Sent. la4 03:32 PT-INR Sent. la4 03:32 Troponin HS Sent. la4 03:33 Inserted saline lock: 20 gauge in left forearm, using aseptic technique. Blood la4 collected. 03:34 XRAY Chest (1 view) In Process Unspecified. EDMS 03:34 Humerus Left XRAY In Process Unspecified. EDMS 03:48 CT Head C Spine In Process Unspecified. EDMS 04:19 Troponin HS: 4am Sent. la4 05:35 David Irby MD is Referral Physician. savage 05:35 Jose L Torres MD is Referral Physician. savage 06:03 IV discontinued, intact, bleeding controlled, No redness/swelling at site. Pressure nw1 dressing applied. Administered Medications: 03:31 Drug: Ondansetron IVP 4 mg IVP once; over 2 minutes Route: IVP; Site: left forearm; la4 03:32 Drug: NS 0.9% IV 500 ml IV at bolus once Route: IV; Rate: bolus; Site: left forearm; la4 03:32 Drug: morphine IVP or IV 4 mg IVP once over 4 mins Route: IVP; Infused Over: 4 mins; la4 Site: left forearm; 05:32 Drug: Potassium PO Effervescent Tablet 25 mEq PO once; dissolve in 4 ounces of water or nw1 juice Route: PO; Medication: 03:06 VIS not applicable for this client. la4 Outcome: 05:35 Discharge ordered by . asvage 06:03 Discharged to home ambulatory, nw1 06:03 Condition: stable 06:03 Discharge instructions given to patient, Instructed on discharge instructions, follow up and referral plans. medication usage, Demonstrated understanding of instructions, follow-up care, medications, Prescriptions given X 2, 06:20 Patient left the ED. nw1 Signatures: Dispatcher [employer] EDMS Elias Gamez MD MD cha Andrews, La'Rea, RN RN la4 Kristy Deng RN RN nw1 Rome Watts
--- NOTE | 2023-04-09 20:51 | RAD REPORT ---
EXAM DESCRIPTION: RAD - Humerus Left - 04/09/2023 3:32 am CLINICAL HISTORY: Female, 67 years old, PAIN TECHNIQUE: 2 views COMPARISON: None. FINDINGS: Diffuse osteopenia and suboptimal positioning limits assessment. No evidence of acute frac ture. Chronic appearing left elbow dislocation and fracture deformity. The shoulder appears congruent with degenerative changes. Calcified left breast implant. IMPRESSION: No acute osseous finding of the left humerus with the exam limitations. Chronic posttrau matic appearance of the left elbow, correlate with history of physical exam. Electronically signed by: Jose L Escalante MD 04/09/2023 04:32 AM SCIENTIST ELECTRONICS Due to temporary technical issues with the PACS/Fluency reporting system, reports are being signed by the in house radiologists without review as a courtesy to insure prompt reporting. The interpreting radiologist is fully responsible for the content of the report.
--- NOTE | 2023-04-09 20:58 | RAD REPORT ---
EXAM DESCRIPTION: CT - Head C Spine Mpr Wo Con - 04/09/2023 7:29 am CLINICAL HISTORY: 67 years Female PAIN TECHNIQUE: Multiple axial CT images of the brain and cervical spine were performed followed by sagit tristan and coronal reconstructed images. The CT study is performed according to ALARA (as low as reasona brittney achievable) or ALARA/IMAGE GENTLY, with automatic adjustment of mA and/or kV according to patient size. Performed on: 04/09/2023 at 3:44 AM COMPARISON: CT head and C-spine performed on 03/20/2023. FINDINGS: CT HEAD: There is no evidence of mass, acute mass effect or midline shift. There are no acute extra-axial flui d collections. There is no evidence of acute intracranial hemorrhage. The cerebral sulci and ventricles are prominent consistent with mild cerebral volume loss. There is patchy subcortical and periventricular low-attenuation most compatible with chronic microang iopathy, similar when compared to the prior study. There is mild mucosal thickening of the right maxillary sinus. The mastoid air cells are clear. The orbital contents are grossly unremarkable. There is an old left orbital floor fracture. No acute osseous abnormalities are identified. No focal soft tissue abnormalities are identified. CT CERVICAL SPINE: The cervical vertebrae are normal in height. There is straightening and mild reversal of the normal c ervical lordosis, similar to the prior study. There is trace anterolisthesis of C3 relative to C4. Th ere is mild to moderate disc space narrowing at C4-C5 and C5-C6. There is mild degenerative spurring along the vertebral endplates throughout the cervical spine. Bone mineralization is normal. The at lanto-axial articulation is preserved and the odontoid process is intact. There is normal alignment of the facet joints on the parasagittal images. There are mild degenerative changes of the facet joints. There is no evidence of acute fracture or subluxation. There is no significant canal stenosis. Ther e is multilevel bilateral neural foraminal stenosis secondary to uncovertebral joint and facet joint hypertrophy. The prevertebral and paraspinal soft tissues are unremarkable. The lung apices are clear. Incidentall y noted, there is an old left orbital floor fracture. IMPRESSION: CT HEAD: 1. No evidence of acute intracranial pathology. 2. Mild cerebral atrophy with findings compatible with chronic microangiopathy, similar when compar ed to the prior study. 3. Old left orbital floor fracture. 4. Mild mucosal thickening of the right maxillary sinus. CT CERVICAL SPINE: 1. No evidence of acute cervical spine injury. 2. Degenerative changes of the cervical spine as described above. 3. Straightening and mild reversal of the normal cervical lordosis, similar to the prior study. Electronically signed by: Dara Freitas DO 04/09/2023 04:13 AM BARLEY STEEPER Due to temporary technical issues with the PACS/Fluency reporting system, reports are being signed by the in house radiologists without review as a courtesy to insure prompt reporting. The interpreting radiologist is fully responsible for the content of the report.
--- NOTE | 2023-04-09 21:02 | RAD REPORT ---
EXAM DESCRIPTION: RAD - Chest Single View - 04/09/2023 3:32 am CLINICAL HISTORY: 67 years Female, COUGH COMPARISON: Chest x-ray report from 04/04/2023. The image is not available for review. TECHNIQUE: Single portable x-ray view of the chest performed on 04/09/2023 at 2:58 AM FINDINGS: The lungs are well expanded and are clear. There is no evidence of a pneumothorax. The cardiac silhouette is normal in size and configuration. The mediastinal contours are normal. No acute osseous abnormality is identified. There is an old healed fracture of the left humeral neck. No focal soft tissue abnormalities are seen. There are partially calcified bilateral breast implants. Lines and tubes: None. Free air: None identified, IMPRESSION: No evidence of acute intrathoracic disease. Electronically signed by: Dara Freitas DO 04/09/2023 03:58 AM CHARRER Due to temporary technical issues with the PACS/Fluency reporting system, reports are being signed by the in house radiologists without review as a courtesy to insure prompt reporting. The interpreting radiologist is fully responsible for the content of the report.
--- NOTE | 2023-04-14 13:49 | EKG ---
Test Date: 2023-04-09 Test Time: 02:43:22 Control Systems Designer: DEEJAY MEASUREMENT RESULTS: Intervals: Rate: 66 DE: 158 QRSD: 90 QT: 400 QTc: 419 [place]: P: 79 DE: 158 QRS: 59 T: 17 INTERPRETIVE STATEMENTS: Sinus rhythm with premature supraventricular complexes T wave abnormality, consider anterior ischemia Abnormal ECG Compared to ECG 04/04/2023 08:26:23 Atrial premature complex(es) now present T-wave abnormality now present Atrial fibrillation no longer present Ventricular premature complex(es) no longer present ST (T wave) deviation no longer present Prolonged QT interval no longer present Possible ischemia still present Electronically Signed On 04-14-23 13:28:52 PRAWN TRAWLER HAND by David Irby
== END ==
LOC: ER 02:18
DX: M79.622 Pain in left upper arm (principal); R29.91 Unspecified symptoms and signs involving the musculoskeletal system; E87.6 Hypokalemia; D64.9 Anemia, unspecified; Z88.8 Allergy status to other drugs, medicaments and biological substances; E11.9 Type 2 diabetes mellitus without complications; I10 Essential (primary) hypertension; Z11.52 Encounter for screening for COVID-19
CPT/HCPCS: 93005; 85025; 80048; 36415; 83735; 85610; 82947; 80076; 84484 ×2; 83690; 83880; 70450; 72125; 71045; 73060; J2405; J7040

== ENCOUNTER 2023-04-18 11:30 | Emergency (ER) | payer OTHER ==
[2023-04-18] MEDS ORDERED: dexAMETHasone 10 MG/ML VIAL ONE (11:43)
[2023-04-18] MEDS ORDERED: LEVALBUTEROL 1.25 MG/3 ML NEB ONE (11:43)
[2023-04-18] MEDS ORDERED: IPRATROPIUM BROM 0.5MG/2.5ML ONE (11:43)
[2023-04-18] MEDS ORDERED: KETOROLAC 30 MG/ML INJ ONE (11:43)
[2023-04-18] MEDS ORDERED: NA CHLORIDE 0.9% 500 ML ONE (11:44)
[2023-04-18 12:08] LABS: Absolute Lymphocytes (CBC) 0.8 K/uL (0.7-4.9); MPV 7.1 fL (7.6-11.3); Platelets 332 thou/uL (152-406); RBC Red Blood Cell Count 3.38 M/uL (3.86-4.86)
--- NOTE | 2023-04-18 12:10 | RAD REPORT ---
EXAM DESCRIPTION: [place] Single View04/18/2023 12:04 pm CLINICAL HISTORY: Cough COMPARISON: March 2023 FINDINGS: The lungs appear clear of acute infiltrate. The heart is normal size IMPRESSION: No acute abnormalities displayed
[2023-04-18 12:38] LABS: Albumin 3.2 g/dL (3.4-5.0); Bilirubin Total 0.4 mg/dL (0.2-1.0); Potassium 2.7 mEq/L (3.5-5.1); Protein, Total 6.4 g/dL (6.4-8.2); Troponin High Sensitivity 25.2 pg/mL (<58.9)
[2023-04-18 12:49] LABS: Specific Gravity 1.007 (1.005-1.030); Urine Bacteria None Seen /HPF (<20); Urine Bilirubin NEGATIVE (Negative); Urine Blood Negative (Negative); Urine Clarity Extremely Turbid (Clear); Urine Color Light-Yellow (Yellow); Urine Glucose NEGATIVE (Negative); Urine Protein NEGATIVE (Negative); Urine RBC <5 /HPF (None Seen); Urine Urobilinogen Normal (Normal)
[2023-04-18] MEDS ORDERED: FAMOTIDINE 20 MG/2 ML VIAL IV ONE (13:00)
[2023-04-18] MEDS ORDERED: KCL 20 MEQ/100 mL IVPB 100 ML IV ONE (13:00)
[2023-04-18] MEDS ORDERED: POTASSIUM 25 MEQ EFFERV TAB ONE ×2 (13:00→16:00)
[2023-04-18] MEDS ORDERED: NS KCL 20MEQ 1,000 ML IV ONE (13:00)
[2023-04-18] MEDS ORDERED: METOPROLOL XL 50 MG TAB PO ONE (13:30)
[2023-04-18] MEDS ORDERED: ENOXAPARIN 80 MG/0.8 ML SQ ONE (13:30)
[2023-04-18 13:33] LABS: Magnesium 2.1 mg/dL (1.6-2.4)
--- NOTE | 2023-04-18 13:33 | EDPHYS ---
Physician Documentation [facility] Name: Reina Hartley Age: 67 yrs Sex: Female : 1955 Arrival Date: 04/18/2023 Time: 11:30 Bed 7 Private MD: YARITZA Physician Elias Gamez HPI: 04/18 12:40 This 67 yrs old Female presents to ER via EMS with complaints of Back Pain, savage Shortness Of Breath. 12:40 The patient presents with pain that is chronic, with no known mechanism of injury. The savage symptoms are located in the low back. Onset: The symptoms/episode began/occurred 3 day(s) ago. The pain does not radiate. Associated signs and symptoms: The patient has no apparent associated signs or symptoms. Modifying factors: The patient symptoms are alleviated by remaining still, the patient symptoms are aggravated by movement. Severity of symptoms: At their worst the symptoms were moderate, in the emergency department the symptoms are unchanged. The patient has not experienced similar symptoms in the past. Historical: - Allergies: 11:35 all depression medications; ph 11:35 Procardia; ph - PMHx: 11:35 Arthritis; diabetes mellitus; Hypertensive disorder; Myocardial infarction; TIA ph (Myocardial infarcti); - PSHx: 11:35 Appendectomy; breast augmentation; cardiac stent; Cholecystectomy; Gastric Bypass; ph hysterectomy; Left hip; - Immunization history:: Adult Immunizations unknown. - Social history:: Smoking status: unknown. ROS: 12:45 Constitutional: Negative for fever, chills, and weight loss, Eyes: Negative for injury, savage pain, redness, and discharge, ENT: Negative for injury, pain, and discharge, Neck: Negative for injury, pain, and swelling, Cardiovascular: Negative for chest pain, palpitations, and edema, Abdomen/GI: Negative for abdominal pain, nausea, vomiting, diarrhea, and constipation, : Negative for injury, bleeding, discharge, and swelling, MS/Extremity: Negative for injury and deformity, Skin: Negative for injury, rash, and discoloration, Neuro: Negative for headache, weakness, numbness, tingling, and seizure, Psych: Negative for depression, anxiety, suicide ideation, homicidal ideation, and hallucinations, Allergy/Immunology: Negative for hives, rash, and allergies, Endocrine: Negative for neck swelling, polydipsia, polyuria, polyphagia, and marked weight changes, Hematologic/Lymphatic: Negative for swollen nodes, abnormal bleeding, and unusual bruising, 12:45 Respiratory: Positive for cough, 12:45 Back: Positive for decreased range of motion, pain with movement, of the lumbar area, Exam: 12:45 Constitutional: This is a well developed, well nourished patient who is awake, alert, savage and in no acute distress. Head/Face: Normocephalic, atraumatic. Eyes: Pupils equal round and reactive to light, extra-ocular motions intact. Lids and lashes normal. Conjunctiva and sclera are non-icteric and not injected. Cornea within normal limits. Periorbital areas with no swelling, redness, or edema. ENT: Nares patent. No nasal discharge, no septal abnormalities noted. Tympanic membranes are normal and external auditory canals are clear. Oropharynx with no redness, swelling, or masses, exudates, or evidence of obstruction, uvula midline. Mucous membranes moist. Neck: Trachea midline, no thyromegaly or masses palpated, and no cervical lymphadenopathy. Supple, full range of motion without nuchal rigidity, or vertebral point tenderness. No Meningismus. Chest/axilla: Normal chest wall appearance and motion. Nontender with no deformity. No lesions are appreciated. Cardiovascular: Regular rate and rhythm with a normal S1 and S2. No gallops, murmurs, or rubs. Normal PMI, no JVD. No pulse deficits. Respiratory: Lungs have equal breath sounds bilaterally, clear to auscultation and percussion. No rales, rhonchi or wheezes noted. No increased work of breathing, no retractions or nasal flaring. Abdomen/GI: Soft, non-tender, with normal bowel sounds. No distension or tympany. No guarding or rebound. No evidence of tenderness throughout. Female : Normal external genitalia. Skin: Warm, dry with normal turgor. Normal color with no rashes, no lesions, and no evidence of cellulitis. MS/ Extremity: Pulses equal, no cyanosis. Neurovascular intact. Full, normal range of motion. Neuro: Awake and alert, GCS 15, oriented to person, place, time, and situation. Cranial nerves II-XII grossly intact. Motor strength 5/5 in all extremities. Sensory grossly intact. Cerebellar exam normal. Normal gait. Psych: Awake, alert, with orientation to person, place and time. Behavior, mood, and affect are within normal limits. 12:45 ECG was reviewed by the Attending Physician. 12:45 Back: pain, that is mild, ROM is painful, with flexion, with extension, normal spinal alignment noted, CVA tenderness, is absent, vertebral tenderness, is not appreciated, muscle spasm, is appreciated in the left low back, left mid back, right mid back and right low back, Vital Signs: 11:33 BP 152 / 93; Pulse 97; Resp 18; Temp 97.8; Pulse Ox 100% on R/A; Weight 74.84 kg; ph 12:51 Pulse 78; Resp 16 S; Pulse Ox 100% on R/A; kc6 13:51 BP 137 / 90; Pulse 75; Resp 16 S; Pulse Ox 98% on R/A; kc6 14:41 BP 149 / 93; Pulse 88; Resp 17 S; Pulse Ox 98% on R/A; kc6 15:42 BP 140 / 96; Pulse 85; Resp 16 S; Pulse Ox 100% on R/A; kc6 MDM: 11:36 Patient medically screened. savage 13:26 Differential diagnosis: Fatigue Obesity Pyelonephritis ruptured disc, Ureterolithiasis. savage Data reviewed: vital signs, nurses notes, lab test result(s), EKG, radiologic studies, plain films. Consideration of Admission/Observation Escalation of care including admission/observation considered. I considered the following discharge prescriptions or medication management in the emergency department Medications were administered in the Emergency Department. See MAR. Test considered but Not performed: CT: no ct lumbar. Care significantly affected by the following chronic conditions: Diabetes, Hypertension, Obesity, mi, tia. 04/18 11:38 Order name: CBC with Diff; Complete Time: 12:52 [place] 04/18 11:38 Order name: Comprehensive Metabolic Panel; Complete Time: 12:52 [place] 04/18 11:38 Order name: Urinalysis w/ reflexes; Complete Time: 12:52 savage 04/18 11:39 Order name: Troponin High Sensitivity; Complete Time: 12:52 [place] 04/18 12:53 Order name: Phosphorus; Complete Time: 13:24 [place] 04/18 12:57 Order name: PT-INR; Complete Time: 15:54 savage 04/18 12:57 Order name: Ptt, Activated; Complete Time: 15:54 [place] 04/18 12:57 Order name: Magnesium; Complete Time: 13:44 [place] 04/18 12:57 Order name: BNP; Complete Time: 13:44 [place] 04/18 13:26 Order name: TSH; Complete Time: 15:54 [place] 04/18 13:26 Order name: Type And Screen; Complete Time: 15:54 [place] 04/18 11:38 Order name: Chest Single View XRAY; Complete Time: 12:52 [place] 04/18 13:45 Order name: CT Chest, Abdomen, Pelvis - W/Contrast; Complete Time: 15:54 [place] 04/18 11:39 Order name: EKG; Complete Time: 11:39 [place] 04/18 12:53 Order name: EKG; Complete Time: 12:54 [place] 04/18 11:39 Order name: EKG - Nurse/Tech; Complete Time: 12:00 [place] 04/18 12:53 Order name: EKG - Nurse/Tech; Complete Time: 13:13 [place] 04/18 15:55 Order name: PO challenge: JUICE; Complete Time: 15:57 [place] Administered Medications: 12:00 Drug: Levalbuterol Inhalation 1.25 mg Inhalation once Route: Inhalation; kc6 12:55 Follow up: Response: No adverse reaction 6 12:00 Drug: Ipratropium Inhalation Aerosol 0.5 mg Inhalation once Route: Inhalation; kc6 12:55 Follow up: Response: No adverse reaction 6 12:06 Drug: Ketorolac IVP 15 mg IVP once Route: IVP; Site: left wrist; kc6 12:55 Follow up: Response: No adverse reaction 6 12:07 Drug: NS 0.9% IV 500 ml IV at bolus once Route: IV; Rate: bolus; Site: left wrist; kc6 15:47 Follow up: Response: No adverse reaction; IV Status: Completed infusion; IV Intake: kc6 500ml 12:07 Drug: Decadron - Dexamethasone IVP 10 mg IVP once Route: IVP; Site: left wrist; kc6 12:55 Follow up: Response: No adverse reaction 6 13:13 Drug: Potassium PO Effervescent Tablet 50 mEq PO once; dissolve in 4 ounces of water or kc6 juice Route: PO; 13:13 Drug: NS 0.9% with KCl IV 20 mEq/L 1000 ml IV at 125 ml/hr continuous Route: IV; Rate: kc6 125 ml/hr; Site: left wrist; 13:13 Drug: Potassium Chloride IV 20 mEq IV at per protocol once; administer over 1-2 hours kc6 Route: IV; Rate: per protocol; Site: left wrist; 13:13 Drug: Famotidine IVP 20 mg IVP once; dilute with 10 mL 0.9% NaCl; give over 2 minutes kc6 Route: IVP; Site: left wrist; 13:47 Follow up: Response: No adverse reaction kc6 13:44 Drug: Metoprolol PO 50 mg PO once Route: PO; kc6 15:47 Follow up: Response: No adverse reaction; Cardiac rhythm is unchanged kc6 13:47 Not Given (Physician Discretion): enoxaparin1 mg/kg Sub-Q once kc6 13:51 Drug: Pantoprazole IVP 40 mg IVP once Route: IVP; Site: left wrist; kc6 15:47 Follow up: Response: No adverse reaction kc6 16:02 Drug: Potassium PO Effervescent Tablet 25 mEq PO once; dissolve in 4 ounces of water or kc6 juice Route: PO; Disposition Summary: 04/18/23 15:55 Discharge Ordered Notes: Location: Home(04/18/23 15:55) savage Problem: new(04/18/23 15:55) savage Symptoms: have improved(04/18/23 15:55) savage Condition: Stable(04/18/23 15:55) savage Diagnosis - Anemia, unspecified(04/18/23 15:55) savage - COPD/ Chronic obstructive pulmonary disease, unspecified(04/18/23 15:55) savage - Chronic atrial fibrillation savage - Tobacco abuse counseling savage - Tobacco use savage - Hypokalemia(04/18/23 15:55) savage - Unspecified cirrhosis of liver savage Followup: savage - With: Private Physician - When: 2 - 3 days - Reason: Recheck today's complaints, Continuance of care, Re-evaluation by your physician Followup: savage - With: Ricardo Castillo MD - When: 2 - 3 days - Reason: Recheck today's complaints, Re-evaluation by your physician Followup: savage - With: David Irby MD - When: 2 - 3 days - Reason: Recheck today's complaints, Re-evaluation by your physician Followup: savage - With: Giovany Kendrick MD - When: 2 - 3 days - Reason: Recheck today's complaints, Re-evaluation by your physician Discharge Instructions: - Discharge Summary Sheet savage - Anemia savage - Atrial Fibrillation savage - Chronic Obstructive Pulmonary Disease savage - Cirrhosis savage - Potassium Content of Foods savage - Steps to Quit Smoking savage - Health Risks of Smoking savage - Hypokalemia savage Forms: - Medication Reconciliation Form savage - Thank You Letter savage - Antibiotic Education savage - Prescription Opioid Use savage - Patient Portal Instructions savage - Leadership Thank You Letter savage Prescriptions: - albuterol sulfate 90 mcg/actuation Inhalation HFA Aerosol Inhaler - inhale 2 puff INHALATION route every 4 to 6 hours as needed for shortness of savage breath or wheezing; 1 unit; Refills: 0, Product Selection Permitted - Protonix 40 mg Oral Tablet - take 1 tablet ORAL route once daily; 30 tablet; Refills: 0, Product Selection savage Permitted - Potassium Chloride 20 meq Oral Packet - take 1 packet ORAL route once daily 1 packet in 6 (six) ounces of water or savage juice; Take after meal; 14 packet; Refills: 0, Product Selection Permitted Signatures: Dispatcher [employer] Elias Cheng MD MD cha Hall, Patricia, RN RN Dot Carmona RN RN kc6 Corrections: (The following items were deleted from the chart) 13:38 13:33 Observation savage savage 13:38 13:33 LucianaLd hermosillo savage savage 13:38 13:33 Telemetry/MedSurg (observation) savage savage 13:38 13:33 Fair savage savage 13:38 13:33 new savage savage 13:38 13:33 have improved savage savage 13:38 13:33 Standard savage savage 13:38 13:33 savage savage 13:38 13:33 Persistent atrial fibrillation - new onset savage savage 13:38 13:33 Hypokalemia savage savage 13:38 13:33 Anemia, unspecified savage savage 13:38 13:33 Low back pain savage savage 13:38 13:33 Dyspnea savage savage 13:38 13:33 COPD/ Chronic obstructive pulmonary disease, unspecified savage savage
--- NOTE | 2023-04-18 13:33 | ER ---
Nurse's Notes [facility] Name: Reina Hartley Age: 67 yrs Sex: Female : 1955 Arrival Date: 04/18/2023 Time: 11:30 Bed 7 Private MD: Diagnosis: Anemia, unspecified;COPD/ Chronic obstructive pulmonary disease, unspecified;Chronic atrial fibrillation;Tobacco abuse counseling;Tobacco use;Hypokalemia;Unspecified cirrhosis of liver Presentation: 04/18 11:33 Chief complaint: EMS states: Hx of chronic back and leg pain, also reports hx of COPD, ph states that symptoms are worse today, reports increased pain and SOB today. Coronavirus screen: Vaccine status: Patient reports being unvaccinated. Ebola Screen: No symptoms or risks identified at this time. Initial Sepsis Screen: Does the patient meet any 2 criteria? No. Patient's initial sepsis screen is negative. Does the patient have a suspected source of infection? No. Patient's initial sepsis screen is negative. Risk Assessment: Do you want to hurt yourself or someone else? Patient reports no desire to harm self or others. Onset of symptoms was April 18, 2023. 11:33 Method Of Arrival: EMS: [facility] ph 11:33 Acuity: ANDREA 3 ph Historical: - Allergies: 11:35 all depression medications; ph 11:35 Procardia; ph - PMHx: 11:35 Arthritis; diabetes mellitus; Hypertensive disorder; Myocardial infarction; TIA ph (Myocardial infarcti); - PSHx: 11:35 Appendectomy; breast augmentation; cardiac stent; Cholecystectomy; Gastric Bypass; ph hysterectomy; Left hip; - Immunization history:: Adult Immunizations unknown. - Social history:: Smoking status: unknown. Screenin:[address] [facility] ED Fall Risk Assessment (Adult) History of falling in the last 3 months, kc6 including since admission No falls in past 3 months (0 pts) Confusion or Disorientation No (0 pts) Intoxicated or Sedated No (0 pts) Impaired Gait No (0 pts) Mobility Assist Device Used No (0 pt) Altered Elimination No (0 pt) Score/Fall Risk Level 0 - 2 = Low Risk. Abuse screen: Denies threats or abuse. Denies injuries from another. Nutritional screening: No deficits noted. Tuberculosis screening: No symptoms or risk factors identified. Assessment: 11:38 General: Appears in no apparent distress. comfortable, unkempt, well developed, kc6 Behavior is calm, cooperative, appropriate for age. Pain: Complains of pain in back. Neuro: Level of Consciousness is awake, alert, obeys commands, Oriented to person, place, time, situation, Appropriate for age. Cardiovascular: Denies chest pain. Respiratory: Reports shortness of breath Airway is patent Trachea midline Respiratory effort is even, unlabored, Respiratory pattern is regular, symmetrical. GI: No signs and/or symptoms were reported involving the gastrointestinal system. : No signs and/or symptoms were reported regarding the genitourinary system. EENT: No signs and/or symptoms were reported regarding the EENT system. Derm: No signs and/or symptoms reported regarding the dermatologic system. Skin is intact, is healthy with good turgor, Skin is pink, warm \T\ dry. Musculoskeletal: No signs and/or symptoms reported regarding the musculoskeletal system. Circulation, motion, and sensation intact. Capillary refill < 3 seconds, Range of motion: intact in all extremities. 12:51 Reassessment: Patient appears in no apparent distress at this time. No changes from kc6 previously documented assessment. Patient and/or family updated on plan of care and expected duration. Pain level reassessed. Patient is alert, oriented x 3, equal unlabored respirations, skin warm/dry/pink. 13:51 Reassessment: Patient appears in no apparent distress at this time. No changes from kc6 previously documented assessment. Patient and/or family updated on plan of care and expected duration. Pain level reassessed. Patient is alert, oriented x 3, equal unlabored respirations, skin warm/dry/pink. 14:41 Reassessment: Patient appears in no apparent distress at this time. No changes from kc6 previously documented assessment. Patient and/or family updated on plan of care and expected duration. Pain level reassessed. Patient is alert, oriented x 3, equal unlabored respirations, skin warm/dry/pink. 15:42 Reassessment: Patient appears in no apparent distress at this time. No changes from kc6 previously documented assessment. Patient and/or family updated on plan of care and expected duration. Pain level reassessed. Patient is alert, oriented x 3, equal unlabored respirations, skin warm/dry/pink. Vital Signs: 11:33 BP 152 / 93; Pulse 97; Resp 18; Temp 97.8; Pulse Ox 100% on R/A; Weight 74.84 kg; ph 12:51 Pulse 78; Resp 16 S; Pulse Ox 100% on R/A; kc6 13:51 BP 137 / 90; Pulse 75; Resp 16 S; Pulse Ox 98% on R/A; kc6 14:41 BP 149 / 93; Pulse 88; Resp 17 S; Pulse Ox 98% on R/A; kc6 15:42 BP 140 / 96; Pulse 85; Resp 16 S; Pulse Ox 100% on R/A; kc6 ED Course: 11:32 Patient arrived in ED. kc6 11:35 Triage completed. ph 11:35 Arm band placed on Patient placed in an exam room, on a stretcher. ph 11:36 Elias Gamez MD is Attending Physician. savage 11:37 Dot Webster RN is Primary Nurse. kc6 11:37 Patient has correct armband on for positive identification. Placed in gown. Bed in low kc6 position. Call light in reach. Side rails up X2. Client placed on continuous cardiac and pulse oximetry monitoring. NIBP monitoring applied. automotive project engineer on. 11:37 Patient maintains SpO2 saturation greater than 95% on room air. kc6 12:00 Inserted saline lock: 22 gauge in left wrist, using aseptic technique. Blood collected. kc6 12:05 Chest Single View XRAY In Process Unspecified. EDMS 13:30 Ld Godwin is Hospitalizing Provider. savage 13:44 PT-INR Sent. kc6 13:44 Ptt, Activated Sent. kc6 13:44 TSH Sent. kc6 13:44 Type And Screen Sent. kc6 13:51 Served as a director of distribution during rectal exam. kc6 13:55 CT Chest, Abdomen, Pelvis - W/Contrast In Process Unspecified. EDMS 15:55 Ricardo Castillo MD is Referral Physician. savage 15:55 David Irby MD is Referral Physician. savage 15:55 Giovany Kendrick MD is Referral Physician. savage 16:07 Provided Education on: discharge instructions. ap3 16:07 IV discontinued, intact, bleeding controlled, No redness/swelling at site. Pressure ap3 dressing applied. Administered Medications: 12:00 Drug: Levalbuterol Inhalation 1.25 mg Inhalation once Route: Inhalation; kc6 12:55 Follow up: Response: No adverse reaction kc6 12:00 Drug: Ipratropium Inhalation Aerosol 0.5 mg Inhalation once Route: Inhalation; kc6 12:55 Follow up: Response: No adverse reaction kc6 12:06 Drug: Ketorolac IVP 15 mg IVP once Route: IVP; Site: left wrist; kc6 12:55 Follow up: Response: No adverse reaction kc6 12:07 Drug: NS 0.9% IV 500 ml IV at bolus once Route: IV; Rate: bolus; Site: left wrist; kc6 15:47 Follow up: Response: No adverse reaction; IV Status: Completed infusion; IV Intake: kc6 500ml 12:07 Drug: Decadron - Dexamethasone IVP 10 mg IVP once Route: IVP; Site: left wrist; kc6 12:55 Follow up: Response: No adverse reaction kc6 13:13 Drug: Potassium PO Effervescent Tablet 50 mEq PO once; dissolve in 4 ounces of water or kc6 juice Route: PO; 13:13 Drug: NS 0.9% with KCl IV 20 mEq/L 1000 ml IV at 125 ml/hr continuous Route: IV; Rate: kc6 125 ml/hr; Site: left wrist; 13:13 Drug: Potassium Chloride IV 20 mEq IV at per protocol once; administer over 1-2 hours kc6 Route: IV; Rate: per protocol; Site: left wrist; 13:13 Drug: Famotidine IVP 20 mg IVP once; dilute with 10 mL 0.9% NaCl; give over 2 minutes kc6 Route: IVP; Site: left wrist; 13:47 Follow up: Response: No adverse reaction kc6 13:44 Drug: Metoprolol PO 50 mg PO once Route: PO; kc6 15:47 Follow up: Response: No adverse reaction; Cardiac rhythm is unchanged kc6 13:47 Not Given (Physician Discretion): enoxaparin1 mg/kg Sub-Q once kc6 13:51 Drug: Pantoprazole IVP 40 mg IVP once Route: IVP; Site: left wrist; kc6 15:47 Follow up: Response: No adverse reaction kc6 16:02 Drug: Potassium PO Effervescent Tablet 25 mEq PO once; dissolve in 4 ounces of water or kc6 juice Route: PO; Medication: 16:07 VIS not applicable for this client. ap3 Intake: 15:47 IV: 500ml; Total: 500ml. kc6 Outcome: 13:33 Decision to Hospitalize by Provider. savage 15:55 Discharge ordered by . [facility] 16:06 Discharged to home ap3 16:06 Condition: good 16:06 Discharge instructions given to patient, Instructed on discharge instructions, follow up and referral plans. medication usage, Demonstrated understanding of instructions, follow-up care, medications, Prescriptions given X 3, 16:07 Patient left the ED. ap3 Signatures: Dispatcher [employer] EDElias Wilder MD MD cha Hall, Patricia, RN RN Tanya Beltrán RN RN ap3 Dot Webster RN RN kc6
[2023-04-18] MEDS ORDERED: PANTOPRAZOLE 40 MG INJ ONE (13:47)
[2023-04-18 14:52] LABS: Protime INR 1.01
--- NOTE | 2023-04-18 14:56 | EKG ---
Test Date: 2023-04-18 Test Time: 13:03:37 Multigrapher: JOSE ALFREDO MEASUREMENT RESULTS: Intervals: Rate: 85 ME: QRSD: 102 QT: 404 QTc: 480 [place]: P: ME: QRS: 80 T: 256 INTERPRETIVE STATEMENTS: Atrial fibrillation Minimal voltage criteria for LVH, may be normal variant ST & T wave abnormality, consider inferior ischemia ST & T wave abnormality, consider anterolateral ischemia Prolonged QT Abnormal ECG Compared to ECG 04/18/2023 11:48:31 Left ventricular hypertrophy now present Prolonged QT interval now present ST (T wave) deviation still present Possible ischemia still present Electronically Signed On 04-18-23 14:56:20 CDL A DRIVER by David Irby
--- NOTE | 2023-04-18 14:56 | EKG ---
Test Date: 2023-04-18 Test Time: 11:48:31 Biofuels Operations Manager: JOSE ALFREDO MEASUREMENT RESULTS: Intervals: Rate: 88 [place]: QRSD: 98 QT: 386 QTc: 467 [place]: P: AK: QRS: 71 T: 257 INTERPRETIVE STATEMENTS: Atrial fibrillation ST & T wave abnormality, consider inferior ischemia ST & T wave abnormality, consider anterolateral ischemia Abnormal ECG Compared to ECG 04/09/2023 02:43:22 ST (T wave) deviation now present Sinus rhythm no longer present Atrial premature complex(es) no longer present T-wave abnormality no longer present Possible ischemia still present Electronically Signed On 04-18-23 14:56:22 RECYCLING OR RUBBISH COLLECTOR by David Irby
--- NOTE | 2023-04-18 15:34 | RAD REPORT ---
EXAM DESCRIPTION: CT - Chest Abdomen Pelvis W Cont - 04/18/2023 1:55 pm CLINICAL HISTORY: COPD;Abdominal distention;Pain COMPARISON: Abdomen Pelvis W Contrast dated 03/11/2023; Chest Single View dated 04/18/2023; Chest Si ngle View dated 04/09/2023; Chest Single View dated 04/04/2023 TECHNIQUE: Thin axial CT images of the chest, abdomen, and pelvis, performed following intravenous a dministration of Isovue-300. Multiplanar reformats were generated and reviewed. All CT scans are performed using dose optimization technique as appropriate and may include automated exposure control or mA/KV adjustment according to patient size. FINDINGS: The lungs are clear.No pleural or pericardial effusion.No intrathoracic adenopathy. The liver place in mildly enlarged with nodular contour. Spleen, pancreas, adrenal glands and right k idney are within normal limits. Mild atrophic changes of the left kidney. Status post cholecystectomy and bariatric surgery. Small hiatal hernia. No bowel obstruction, free air, free fluid or abscess. Stable calcified reniform 1.9 cm focus in the left aspect of the pelvis, stable. No pathologic lymphadenopathy in the abdomen or pelvis. No worrisome osseous finding. A multiple wedge compression deformities of T12, L1, L2, and L3, favore d to be of chronic nature. The left total hip arthroplasty in place with resulting in streak artifact which somewhat limits evaluation. Calcified bilateral implant capsules, with lobulated calcific extension medial posterior to the left- sided implant, may relate to sequelae of implant rupture. IMPRESSION: No acute abnormalities. Mildly enlarged liver with nodular contour, suggesting cirrhosis. Other incidental findings as above.
[2023-04-19 02:23] VITALS: BP 140/96; TEMP 97.8; O2SAT 100
== END 2023-04-18 16:07 | disposition home or self-care (01) ==
LOC: ER 11:30
DX: D64.9 Anemia, unspecified (principal); J44.9 Chronic obstructive pulmonary disease, unspecified; E87.6 Hypokalemia; I48.20 Chronic atrial fibrillation, unspecified; K74.60 Unspecified cirrhosis of liver; Z72.0 Tobacco use; Z71.6 Tobacco abuse counseling; R05.9 Cough, unspecified; M54.50 Low back pain, unspecified; E11.9 Type 2 diabetes mellitus without complications; I10 Essential (primary) hypertension; Z95.818 Presence of other cardiac implants and grafts; Z98.82 Breast implant status; Z88.8 Allergy status to other drugs, medicaments and biological substances
CPT/HCPCS: 93005 ×2; 85025; 81001; 36415; 86900; 83735; 86850; 84100; 85610; 86901; 85730; 84443; 84484; 80053; 83880; 71260; 74177; 71045; Q9967; J3480 ×2; J7614; J7644; C9113; J1100; J7040

== ENCOUNTER 2023-04-19 10:16 | Inpatient (IN) | payer OTHER ==
[2023-04-19] MEDS ORDERED: PANTOPRAZOLE 40 MG INJ ONE (17:04)
[2023-04-19] MEDS ORDERED: NA CHLORIDE 0.9% 1,000 ML ONE (17:04)
[2023-04-19 17:26] LABS: Arterial Blood Carboxyhemoglob 4.1 % (0-1.5); Blood O2 Saturation 90.5 % (92-98.5)
--- NOTE | 2023-04-19 17:55 | RAD REPORT ---
EXAM DESCRIPTION: RAD - Chest Single View - 04/19/2023 5:36 pm CLINICAL HISTORY: COPD Chest pain. COMPARISON: Chest Single View dated 04/18/2023; Chest Single View dated 04/09/2023; Chest Single View d ated 04/04/2023; Chest Single View dated 03/20/2023; Chest Abdomen Pelvis W Cont dated 04/18/2023 FINDINGS: Portable technique limits examination quality. The lungs are emphysematous. Vague area of nodularity in the right lower lobe. The heart is moderatel y enlarged in size. No displaced fractures.
[2023-04-19 18:00] LABS: Protime INR 1.03
[2023-04-19 18:06] LABS: Absolute Lymphocytes (CBC) 1.6 K/uL (0.7-4.9); Lymphocytes % 19.3 % (15.3-44.8); MCV 80.1 fL (80-100); MPV 7.5 fL (7.6-11.3); Platelets 335 thou/uL (152-406); RBC Red Blood Cell Count 2.87 M/uL (3.86-4.86)
[2023-04-19 18:09] LABS: Bilirubin Direct 0.2 mg/dL (0-0.2); Bilirubin Indirect, Calculated 0.1 mg/dL (0.2-0.8); Bilirubin Total 0.3 mg/dL (0.2-1.0); Magnesium 1.9 mg/dL (1.6-2.4); Potassium 2.5 mEq/L (3.5-5.1); Protein, Total 6.1 g/dL (6.4-8.2)
[2023-04-19 18:12] LABS: Troponin High Sensitivity 127.3 pg/mL (<58.9)
--- NOTE | 2023-04-19 18:25 | EDPHYS ---
Physician Documentation [facility] Name: Reina Hartley Age: 67 yrs Sex: Female : 1955 Arrival Date: 04/19/2023 Time: 10:16 Bed 14 Private MD: ED Physician Elias Gamez HPI: 04/19 17:52 This 67 yrs old Female presents to ER via EMS with complaints of Shortness Of savage Breath. 17:52 The patient has shortness of breath at rest, with light activity. Onset: The savage symptoms/episode began/occurred 2 day(s) ago. Duration: The symptoms are continuous, and are unchanged since they started. The patient's shortness of breath is aggravated by coughing, is alleviated by nothing. Associated signs and symptoms: The patient has no apparent associated signs or symptoms. Severity of symptoms: At their worst the symptoms were mild in the emergency department the symptoms are unchanged. The patient has experienced similar episodes in the past, multiple times. Historical: - Allergies: 16:21 all depression medications; me1 16:21 Procardia; me1 - PMHx: 16:21 Arthritis; diabetes mellitus; Hypertensive disorder; Myocardial infarction; TIA me1 (Myocardial infarcti); - PSHx: 16:21 Appendectomy; cardiac stent; breast augmentation; Gastric Bypass; Cholecystectomy; Left me1 hip; hysterectomy; - Immunization history:: Adult Immunizations unknown. - Social history:: Smoking status: Patient reports the use of cigarette tobacco products, smokes one-half pack cigarettes per day. - Family history:: not pertinent. ROS: 17:52 Constitutional: Negative for fever, chills, and weight loss, Eyes: Negative for injury, savage pain, redness, and discharge, ENT: Negative for injury, pain, and discharge, Neck: Negative for injury, pain, and swelling, Cardiovascular: Negative for chest pain, palpitations, and edema, Abdomen/GI: Negative for abdominal pain, nausea, vomiting, diarrhea, and constipation, Back: Negative for injury and pain, : Negative for injury, bleeding, discharge, and swelling, MS/Extremity: Negative for injury and deformity, Skin: Negative for injury, rash, and discoloration, Neuro: Negative for headache, weakness, numbness, tingling, and seizure, Psych: Negative for depression, anxiety, suicide ideation, homicidal ideation, and hallucinations, Allergy/Immunology: Negative for hives, rash, and allergies, Endocrine: Negative for neck swelling, polydipsia, polyuria, polyphagia, and marked weight changes, Hematologic/Lymphatic: Negative for swollen nodes, abnormal bleeding, and unusual bruising, 17:52 Respiratory: Positive for cough, shortness of breath, at rest. Exam: 17:52 Constitutional: This is a well developed, well nourished patient who is awake, alert, savage and in no acute distress. Head/Face: Normocephalic, atraumatic. Eyes: Pupils equal round and reactive to light, extra-ocular motions intact. Lids and lashes normal. Conjunctiva and sclera are non-icteric and not injected. Cornea within normal limits. Periorbital areas with no swelling, redness, or edema. ENT: Nares patent. No nasal discharge, no septal abnormalities noted. Tympanic membranes are normal and external auditory canals are clear. Oropharynx with no redness, swelling, or masses, exudates, or evidence of obstruction, uvula midline. Mucous membranes moist. Neck: Trachea midline, no thyromegaly or masses palpated, and no cervical lymphadenopathy. Supple, full range of motion without nuchal rigidity, or vertebral point tenderness. No Meningismus. Chest/axilla: Normal chest wall appearance and motion. Nontender with no deformity. No lesions are appreciated. Cardiovascular: Regular rate and rhythm with a normal S1 and S2. No gallops, murmurs, or rubs. Normal PMI, no JVD. No pulse deficits. Respiratory: Lungs have equal breath sounds bilaterally, clear to auscultation and percussion. No rales, rhonchi or wheezes noted. No increased work of breathing, no retractions or nasal flaring. Abdomen/GI: Soft, non-tender, with normal bowel sounds. No distension or tympany. No guarding or rebound. No evidence of tenderness throughout. Back: No spinal tenderness. No costovertebral tenderness. Full range of motion. Skin: Warm, dry with normal turgor. Normal color with no rashes, no lesions, and no evidence of cellulitis. MS/ Extremity: Pulses equal, no cyanosis. Neurovascular intact. Full, normal range of motion. Neuro: Awake and alert, GCS 15, oriented to person, place, time, and situation. Cranial nerves II-XII grossly intact. Motor strength 5/5 in all extremities. Sensory grossly intact. Cerebellar exam normal. Normal gait. Psych: Awake, alert, with orientation to person, place and time. Behavior, mood, and affect are within normal limits. 18:26 ECG was reviewed by the Attending Physician. [facility] Vital Signs: 16:18 BP 139 / 80; Pulse 71; Resp 22; Temp 98.4(O); Pulse Ox 98% on R/A; Weight 63.5 kg; ca1 Height 5 ft. 2 in. ; Pain 10/10; 19:00 BP 122 / 68; Pulse 76; Resp 16 S; Pulse Ox 94% on R/A; jw7 20:00 BP 93 / 70; Pulse 78; Resp 16 S; Pulse Ox 95% on R/A; jw7 21:00 BP 119 / 69; Pulse 79; Resp 15 S; Pulse Ox 100% on 8 lpm Nebulizer Mask; jw7 22:00 BP 112 / 73; Pulse 74; Resp 16 S; Pulse Ox 95% on R/A; jw7 23:00 BP 144 / 86; Pulse 75; Resp 17 S; Pulse Ox 95% on R/A; 7 04/20 00:00 BP 130 / 82; Pulse 97; Resp 16 S; Pulse Ox 95% on R/A; 7 04/19 16:18 Body Mass Index 25.61 (63.50 kg, 157.48 cm) [facility] [place] 16:18 Pain Scale: [place] [facility]DM: 04/19 16:48 Patient medically screened. [facility] 17:55 Differential diagnosis: Anemia Anxiety Reaction Bronchitis CHF exacerbation, Myocardial savage Infarction reactive airway disease. Antibiotic administration: Not indicated. Immunization status: Pneumococcal vaccine: within last 5 years. Influenza vaccine: within last 5 years. Data reviewed: vital signs, nurses notes, lab test result(s), EKG, radiologic studies. Consideration of Admission/Observation Escalation of care including admission/observation considered. I considered the following discharge prescriptions or medication management in the emergency department Medications were administered in the Emergency Department. See MAR. Independent interpretation of the following test(s) in the Emergency Department EKG: See my EKG interpretation above. Test considered but Not performed: CT: NO CT CHEST. Care significantly affected by the following chronic conditions: Diabetes, Hypertension, Obesity, TIA, GA. 04/19 16:50 Order name: Basic Metabolic Panel [facility] 04/19 16:50 Order name: CBC with Diff; Complete Time: 18:16 [facility] 04/19 16:50 Order name: LFT's [facility] 04/19 16:50 Order name: Magnesium [facility] 04/19 16:50 Order name: NT PRO-BNP [facility] 04/19 16:50 Order name: PT-INR; Complete Time: 18:05 [facility] 04/19 16:50 Order name: Troponin HS [facility] 04/19 16:50 Order name: ABG; Complete Time: 17:48 [facility] 04/19 16:50 Order name: Urinalysis w/ reflexes [facility] 04/19 18:20 Order name: Type And Screen [facility] 04/19 18:23 Order name: Bb Add On bd 04/19 18:23 Order name: PRBC [facility] 04/19 18:25 Order name: ABO/RH typing EDIN 04/19 18:25 Order name: Antibody Screen EDIN 04/19 21:23 Order name: Phosphorus EDIN 04/19 21:56 Order name: Basic Metabolic Panel EDIN 04/19 21:56 Order name: Basic Metabolic Panel EDMS 04/19 21:56 Order name: CBC with Automated Diff EDMS 04/19 21:56 Order name: CBC with Automated Diff EDMS 04/19 21:56 Order name: Lipid Profile EDMS 04/19 21:56 Order name: Lipid Profile EDMS 04/19 21:56 Order name: Troponin High Sensitivity EDMS 04/19 21:56 Order name: Troponin High Sensitivity EDMS 04/19 21:56 Order name: Troponin High Sensitivity EDMS 04/19 21:56 Order name: Troponin High Sensitivity EDIN 04/19 16:50 Order name: XRAY Chest (1 view); Complete Time: 18:05 [facility] 04/19 21:58 Order name: Echo with Doppler EDIN 04/19 16:50 Order name: EKG; Complete Time: 16:50 [facility] 04/19 16:50 Order name: Cardiac monitoring; Complete Time: 17:36 [facility] 04/19 16:50 Order name: EKG - Nurse/Tech; Complete Time: 18:13 [facility] 04/19 16:50 Order name: IV Saline Lock; Complete Time: 17:36 [facility] 04/19 16:50 Order name: Labs collected and sent; Complete Time: 17:36 [facility] 04/19 16:50 Order name: O2 Per Protocol; Complete Time: 17:13 savage 04/19 16:50 Order name: O2 Sat Monitoring; Complete Time: 17:13 savage EC:26 Rate is 89 beats/min. Rhythm is irregularly irregular. QRS [place] is Normal. SD interval savage is normal. QRS interval is normal. QT interval is normal. No Q waves. T waves are Normal. No ST changes noted. Clinical impression: Abnormal EKG without significant change, Atrial Fibrillation, and No evidence of ischemia. Interpreted by me. Reviewed by me. Administered Medications: 18:18 Discontinued: ns 0.9% 1000 ml IV at 125 ml/hr continuous savage 17:35 Drug: Pantoprazole IVP 40 mg IVP once Route: IVP; Site: right forearm; bp 19:43 Follow up: Response: No adverse reaction bp 17:36 Drug: NS 0.9% IV 1000 ml IV at 125 ml/hr continuous Route: IV; Rate: 125 ml/hr; Site: bp right forearm; 19:42 Follow up: Response: No adverse reaction; IV Status: Order to discontinue infusion; IV bp Intake: 100ml 18:19 CANCELLED (Duplicate Order): [id number] mg Sub-Q once savage 20:20 Drug: Aspirin PO 81 mg PO once Route: PO; jw7 20:25 Drug: Potassium PO Effervescent Tablet 50 mEq PO once; dissolve in 4 ounces of water or jw7 juice Route: PO; 04/20 03:07 Follow up: Response: No adverse reaction 7 04/19 21:00 Drug: MethylPrednisoLONE IVP 125 mg IVP once Route: IVP; Site: right wrist; 04/20 03:06 Follow up: Response: No adverse reaction 04/19 21:00 Drug: Levalbuterol Inhalation 1.25 mg Inhalation once Route: Inhalation; 04/20 03:06 Follow up: Response: No adverse reaction 7 04/19 21:29 Drug: Ipratropium Inhalation Aerosol 0.5 mg Inhalation once Route: Inhalation; jw7 04/20 03:06 Follow up: Response: No adverse reaction; Marked relief of symptoms 7 04/19 21:30 Drug: NS 0.9% with KCl IV 20 mEq/L 1000 ml IV at 125 ml/hr continuous Route: IV; Rate: jw7 125 ml/hr; Site: right wrist; 04/20 03:06 Follow up: Response: No adverse reaction; IV Status: Infusion continued upon admission; jw7 IV Intake: 600ml 04/19 21:57 Drug: Potassium PO Effervescent Tablet 50 mEq PO once; dissolve in 4 ounces of water or jw7 juice, REPEAT IN ONE HOUR Route: PO; 04/20 03:05 Follow up: Response: No adverse reaction jw7 Disposition Summary: 04/19/23 18:25 Hospitalization Ordered Notes: Hospitalization Status: Inpatient Admission savage Provider: Krishna Leigh cha Condition: Fair savage Problem: new savage Symptoms: have improved savage Bed/Room Type: Standard savage Location: Telemetry/MedSurg (observation)(04/19/23 23:47) rv1 Room Assignment: [facility](04/19/23 23:47) rv1 Diagnosis - Anemia, unspecified savage - COPD/ Chronic obstructive pulmonary disease with (acute) exacerbation savage - Tobacco abuse counseling savage - Tobacco use savage - Non ST elevation GA savage - Hypokalemia savage - Chronic atrial fibrillation savage - Weakness savage Forms: - Medication Reconciliation Form savage - SBAR form savage - Leadership Thank You Letter savage Signatures: Dispatcher [employer] EDMS Elias Gaemz MD MD cha Garcia, Cindy, RN Bruce Bonilla RN RN bp Waits, Jodi, RN RN Marisela Angel rv1 Kamilla Raya RN RN me1 Corrections: (The following items were deleted from the chart) 04/19 17:13 16:50 Urinalysis+U.LAB.BRZ ordered. EDMS EDMS 18:19 18:18 Enoxaparin Sub-Q 60 mg Sub-Q once ordered. savage savage 19:32 18:25 Telemetry/MedSurg (Inpatient) savage cg 19:32 18:25 savage cg 21:22 18:18 PHOSPHORUS+C.LAB.BRZ ordered. EDMS EDMS 23:47 19:32 [facility] ER HOLD cg rv1 23:47 19:32 ERHOLD- cg rv1
--- NOTE | 2023-04-19 18:25 | ER ---
Nurse's Notes [facility] Name: Reina Hartley Age: 67 yrs Sex: Female : 1955 Arrival Date: 04/19/2023 Time: 10:16 Bed 14 Private MD: Diagnosis: Anemia, unspecified;COPD/ Chronic obstructive pulmonary disease with (acute) exacerbation;Tobacco abuse counseling;Tobacco use;Non ST elevation [place];Hypokalemia;Chronic atrial fibrillation;Weakness Presentation: 04/19 16:18 Chief complaint: EMS states: toned out for SOB with exertion, non-productive cough. RR me1 42 breaths/minute. o2 at 2 LPM via NC, RR decreased to 22/min. Patient was seen here yesterday for sob and pain. c/o pain to knees, back and neck at this time. Coronavirus screen: Vaccine status: Patient reports receiving the 2nd dose of the covid vaccine. Ebola Screen: No symptoms or risks identified at this time. Initial Sepsis Screen: Does the patient meet any 2 criteria? No. Patient's initial sepsis screen is negative. Does the patient have a suspected source of infection? No. Patient's initial sepsis screen is negative. Risk Assessment: Do you want to hurt yourself or someone else? Patient reports no desire to harm self or others. Onset of symptoms was April 19, 2023. 16:18 Method Of Arrival: EMS nd1 16:18 Acuity: ANDREA 3 me1 Triage Assessment: 16:21 General: Appears uncomfortable, ill, unkempt, well developed, well nourished, Behavior me1 is calm, cooperative, appropriate for age, Reports c/o SOB with exertion, non-productive cough. RR 42 breaths/minute. o2 at 2 LPM via NC, RR decreased to 22/min. Patient was seen here yesterday for sob and pain. c/o pain to knees, back and neck at this time. Pain: Complains of pain in knee bilaterally, back and neck Pain does not radiate. Pain currently is 10 out of 10 on a pain scale. Quality of pain is described as aching, Pain began gradually, Is continuous. Neuro: Level of Consciousness is awake, alert, obeys commands, Oriented to person, place, time, situation, Appropriate for age. Cardiovascular: Capillary refill < 3 seconds Patient's skin is warm and dry. Respiratory: Reports shortness of breath cough that is non-productive, labored breathing Airway is patent Trachea midline Respiratory effort is even, unlabored, Respiratory pattern is regular, symmetrical, Onset: The symptoms/episode began/occurred just prior to arrival, the patient has mild shortness of breath. Musculoskeletal: Reports pain in knees, back and neck. Historical: - Allergies: 16:21 all depression medications; me1 16:21 Procardia; me1 - PMHx: 16:21 Arthritis; diabetes mellitus; Hypertensive disorder; Myocardial infarction; TIA me1 (Myocardial infarcti); - PSHx: 16:21 Appendectomy; cardiac stent; breast augmentation; Gastric Bypass; Cholecystectomy; Left me1 hip; hysterectomy; - Immunization history:: Adult Immunizations unknown. - Social history:: Smoking status: Patient reports the use of cigarette tobacco products, smokes one-half pack cigarettes per day. - Family history:: not pertinent. Screenin:[facility] ED Fall Risk Assessment (Adult) History of falling in the last 3 months, bp including since admission No falls in past 3 months (0 pts). Abuse screen: Denies threats or abuse. Denies injuries from another. Nutritional screening: No deficits noted. Tuberculosis screening: No symptoms or risk factors identified. Assessment: 16:30 General: SEE TRIAGE NOTE. bp 17:37 Reassessment: Patient appears in no apparent distress at this time. Patient is alert, bp oriented x 3, equal unlabored respirations, skin warm/dry/pink. Cardiovascular: Rhythm is sinus rhythm. Respiratory: Airway is patent Breath sounds are clear. 19:00 General: Appears in no apparent distress. comfortable, Behavior is calm, cooperative. jw7 Pain: Complains of pain in back Pain does not radiate. Pain currently is 5 out of 10 on a pain scale. Quality of pain is described as aching, Pain began suddenly, Is continuous. Neuro: Shane Agitation-Sedation Scale (RASS): 0 - Alert and Calm Level of Consciousness is awake, alert, obeys commands, Oriented to person, place, time, situation. Cardiovascular: Capillary refill < 3 seconds Clubbing of nail beds is absent JVD is absent Patient's skin is warm and dry. Cardiovascular: Rhythm is sinus rhythm. Respiratory: Airway is patent Trachea midline Respiratory effort is even, unlabored, Respiratory pattern is regular, symmetrical. GI: No deficits noted. No signs and/or symptoms were reported involving the gastrointestinal system. : No deficits noted. No signs and/or symptoms were reported regarding the genitourinary system. EENT: No deficits noted. No signs and/or symptoms were reported regarding the EENT system. Derm: Skin is intact, is healthy with good turgor, Skin is dry, Skin is normal, Skin temperature is warm. Musculoskeletal: Circulation, motion, and sensation intact. Range of motion: intact in all extremities. 20:00 Reassessment: Patient appears in no apparent distress at this time. No changes from 7 previously documented assessment. Patient and/or family updated on plan of care and expected duration. Pain level reassessed. Patient is alert, oriented x 3, equal unlabored respirations, skin warm/dry/pink. 21:00 Reassessment: Patient appears in no apparent distress at this time. No changes from jw7 previously documented assessment. Patient and/or family updated on plan of care and expected duration. Pain level reassessed. Patient is alert, oriented x 3, equal unlabored respirations, skin warm/dry/pink. 22:00 Reassessment: Patient appears in no apparent distress at this time. No changes from jw7 previously documented assessment. Patient and/or family updated on plan of care and expected duration. Pain level reassessed. Patient is alert, oriented x 3, equal unlabored respirations, skin warm/dry/pink. 23:00 Reassessment: Patient appears in no apparent distress at this time. No changes from jw7 previously documented assessment. Patient and/or family updated on plan of care and expected duration. Pain level reassessed. Patient is alert, oriented x 3, equal unlabored respirations, skin warm/dry/pink. 23:00 General: Pt admitted, see [employer] documentation. jw7 Vital Signs: 16:18 BP 139 / 80; Pulse 71; Resp 22; Temp 98.4(O); Pulse Ox 98% on R/A; Weight 63.5 kg; me1 Height 5 ft. 2 in. ; Pain 10/10; 19:00 BP 122 / 68; Pulse 76; Resp 16 S; Pulse Ox 94% on R/A; jw7 20:00 BP 93 / 70; Pulse 78; Resp 16 S; Pulse Ox 95% on R/A; jw7 21:00 BP 119 / 69; Pulse 79; Resp 15 S; Pulse Ox 100% on 8 lpm Nebulizer Mask; jw7 22:00 BP 112 / 73; Pulse 74; Resp 16 S; Pulse Ox 95% on R/A; jw7 23:00 BP 144 / 86; Pulse 75; Resp 17 S; Pulse Ox 95% on R/A; jw7 04/20 00:00 BP 130 / 82; Pulse 97; Resp 16 S; Pulse Ox 95% on R/A; jw7 04/19 16:18 Body Mass Index 25.61 (63.50 kg, 157.48 cm) [facility] 04/19 16:18 Pain Scale: Adult [facility] ED Course: 04/19 16:17 Patient arrived in ED. nd1 16:21 Triage completed. nd1 16:21 Arm band placed on Patient placed in an exam room. nd1 16:48 Elias Gamez MD is Attending Physician. savage 17:13 Bruce Grewal, WALI is Primary Nurse. bp 17:30 Patient has correct armband on for positive identification. bp 17:36 Inserted saline lock: 22 gauge in left forearm, using aseptic technique. Blood bp collected. 17:38 XRAY Chest (1 view) In Process Unspecified. EDMS 18:23 Krishna Leigh MD is Hospitalizing Provider. savage 21:40 No provider procedures requiring assistance completed. Patient admitted, IV remains in [facility] place. 21:41 Provided Education on: need for admit. [facility] 21:45 Inserted saline lock: 24 gauge in left wrist, using aseptic technique. oe Administered Medications: 18:18 Discontinued: ns 0.9% 1000 ml IV at 125 ml/hr continuous savage 17:35 Drug: Pantoprazole IVP 40 mg IVP once Route: IVP; Site: right forearm; bp 19:43 Follow up: Response: No adverse reaction bp 17:36 Drug: NS 0.9% IV 1000 ml IV at 125 ml/hr continuous Route: IV; Rate: 125 ml/hr; Site: bp right forearm; 19:42 Follow up: Response: No adverse reaction; IV Status: Order to discontinue infusion; IV bp Intake: 100ml 18:19 CANCELLED (Duplicate Order): [id number] mg Sub-Q once savage 20:20 Drug: Aspirin PO 81 mg PO once Route: PO; 7 20:25 Drug: Potassium PO Effervescent Tablet 50 mEq PO once; dissolve in 4 ounces of water or jw7 juice Route: PO; 04/20 03:07 Follow up: Response: No adverse reaction jw7 04/19 21:00 Drug: MethylPrednisoLONE IVP 125 mg IVP once Route: IVP; Site: right wrist; jw7 04/20 03:06 Follow up: Response: No adverse reaction jw7 04/19 21:00 Drug: Levalbuterol Inhalation 1.25 mg Inhalation once Route: Inhalation; jw7 04/20 03:06 Follow up: Response: No adverse reaction jw7 04/19 21:29 Drug: Ipratropium Inhalation Aerosol 0.5 mg Inhalation once Route: Inhalation; jw7 04/20 03:06 Follow up: Response: No adverse reaction; Marked relief of symptoms jw7 04/19 21:30 Drug: NS 0.9% with KCl IV 20 mEq/L 1000 ml IV at 125 ml/hr continuous Route: IV; Rate: jw7 125 ml/hr; Site: right wrist; 04/20 03:06 Follow up: Response: No adverse reaction; IV Status: Infusion continued upon admission; jw7 IV Intake: 600ml 04/19 21:57 Drug: Potassium PO Effervescent Tablet 50 mEq PO once; dissolve in 4 ounces of water or jw7 juice, REPEAT IN ONE HOUR Route: PO; 04/20 03:05 Follow up: Response: No adverse reaction jw7 Medication: 04/19 21:41 VIS not applicable for this client. jw7 Intake: 19:42 IV: 100ml; Total: 100ml. 04/20 03:06 IV: 600ml; Total: 700ml. jw7 Outcome: 04/19 18:25 Decision to Hospitalize by Provider. savage 04/20 03:01 Admitted to Med/surg accompanied by tech, via wheelchair, jw7 Condition: stable Instructed on the need for admit, Demonstrated understanding of instructions, 03:07 Patient left the ED. jw7 Signatures: Dispatcher [employer] Elias Cheng MD MD cha Espinosa, Orlando oe Peltier, Brian, RN RN bp Waits, Jodi RN RN [facility] Kamilla Raya RN RN me1
[2023-04-19] MEDS ORDERED: IPRATROPIUM BROM 0.5MG/2.5ML ONE (19:49)
[2023-04-19] MEDS ORDERED: METHYLPREDNISOLONE 125 MG INJ ONE (19:49)
[2023-04-19] MEDS ORDERED: LEVALBUTEROL 1.25 MG/3 ML NEB ONE (19:50)
[2023-04-19] MEDS ORDERED: ASPIRIN 81 MG CHEWABLE TABLET ONE (19:50)
[2023-04-19] MEDS ORDERED: NS KCL 20MEQ 1,000 ML IV ONE (19:51)
[2023-04-19] MEDS ORDERED: POTASSIUM 25 MEQ EFFERV TAB ONE (19:51)
[2023-04-19 21:41] LABS: Specific Gravity 1.006 (1.005-1.030); Urine Bacteria <20 /HPF (<20); Urine Bilirubin NEGATIVE (Negative); Urine Blood Negative (Negative); Urine Clarity Turbid (Clear); Urine Color Light-Yellow (Yellow); Urine Crystals Unidentified Few /HPF (None Seen); Urine Glucose NEGATIVE (Negative); Urine Protein NEGATIVE (Negative); Urine RBC <5 /HPF (None Seen); Urine Urobilinogen Normal (Normal); Urine pH 6.5 (5.0-7.0)
--- NOTE | 2023-04-19 22:05 | P.HP ---
Certification for Inpatient Patient admitted to: Observation With expected LOS: <2 Midnights Practitioner: I am a practitioner with admitting privileges, knowledge of patient current condition, hospital course, and medical plan of care. Services: Services provided to patient in accordance with Admission requirements found in Title 42 Section 412.3 of the Code of Federal Regulations Patient History Date of Service: 04/20/23 Reason for admission: Shortness of breath, CHF exacerbation, suspected bronchitis. History of Present Illness: 67-year-old female patient with medical history significant for diabetes type 2, hypertension, hyperlipidemia, history of COPD was evaluated for episode of worsening shortness of breath on exertion. She says she minimally exerting a short of breath and she had come into the ED. In the ED she had elevated BNP of 5000 and normal, x-ray finding of vascular congestion and concerns for worsening CHF issues. She also did have low potassium of 2.5. She was started on potassium repletion, given IV steroid therapy and breathing treatment and she was admitted for inpatient care. She has a cough which is nonproductive. She denies overt episode of fever, chills, rigor, nausea, vomiting, diarrhea. She also did have elevated troponin raising concerns for possible NSTEMI. Allergies nifedipine [From Procardia] Allergy (Mild, Verified 04/04/23 16:05) Hives/Rash insulin regular Allergy (Verified 03/02/23 20:52) Nausea/Vomiting Home Medications: Acetaminophen [Tylenol] 650 mg PO Q4HP PRN 03/02/23 Albuterol Neb [Proventil 0.083% Neb Soln] 2.5 mg NEB [id number] PRN #120 amp 04/06/23 Ciprofloxacin HCl [Cipro] 500 mg PO BID #10 tab 04/06/23 Clopidogrel Bisulfate [Plavix*] 75 mg PO DAILY 30 Days #30 tab 04/06/23 Codeine/APAP [Tylenol #3*] 1 tab PO Q4H PRN #20 tab 04/06/23 Docusate [Colace Cap*] 200 mg PO DAILY #30 cap 04/06/23 Ferrous Sulfate [Ferrous Sulfate*] 325 mg PO DAILY #30 tab 04/06/23 Lidocaine [Dermacinrx Lidocan] 1 each TP DAILY 30 Days #30 patch 04/06/23 Metoprolol Tartrate [Lopressor*] 25 mg PO BID 6AM 6PM #60 tab 04/06/23 Multivitamin with Minerals [Multivitamins with Minerals] 1 each PO DAILY #30 tab 04/06/23 Omeprazole 20 mg PO DAILY #30 tab 04/06/23 Polyethylene Glycol 3350 [Miralax] 17 gm PO DAILYPRN PRN #30 packet 04/06/23 Sodium Chloride Tab [Sodium Chloride*] 1 gm PO TID #90 tab 04/06/23 - Past Medical/Surgical History Diabetic: Yes -: Gastritis / Esophagitis -: DM II -: CAD s/p PCI -: h/o alcohol abuse, with ?liver cirrhosis -: chronic intermittent diarrhea -: CVA vs TIA -: COPD (mild) -: Chronic hyponatremia -: SC -: HTN -: s/p PCI (~2019) -: cholecystectomy -: Appendectomy -: Lap-Band surgery -: EGD/C-scope (early 2022) -: hip fracture Psychosocial/ Personal History: lives with daughter, recently moved to area - Family History Father -: Heart disease, Hypertension Mother -: Heart disease, Hypertension, Diabetes - Social History Alcohol use: No CD- Drugs: No Caffeine use: Yes Review of Systems General: Weakness, Malaise Eyes: Unremarkable ENT: Unremarkable Respiratory: Cough, Shortness of Breath, SOB with Excertion Cardiovascular: Orthopnea, Paroxysmal Noc. Dyspnea Gastrointestinal: Unremarkable Genitourinary: Unremarkable Musculoskeletal: Unremarkable Integumentary: Unremarkable Neurological: Unremarkable Lymphatics: Unremarkable Physical Examination - Physical Exam General: Alert, Oriented x3 HEENT: Atraumatic, Normocephalic Neck: Supple Respiratory: Diminished, Crackles/rales Cardiovascular: Regular rate/rhythm, Normal S1 S2 Gastrointestinal: Soft and benign Musculoskeletal: No swelling Neurological: Normal speech, Normal strength at 5/5 x4 extr - Studies Laboratory Data (last 24 hrs) 04/19/23 04/19/23 04/19/23 18:17 17:36 17:36 WBC 8.30 Hgb 7.8 L Hct 23.0 L Plt Count 335 PT 11.3 INR 1.03 Sodium Potassium BUN Creatinine Glucose Phosphorus Cancelled Magnesium Total Bilirubin AST ALT Alkaline Phosphatase 04/19/23 17:36 WBC Hgb Hct Plt Count PT INR Sodium 133 L Potassium 2.5 L* BUN 13 Creatinine 0.81 Glucose 88 Phosphorus 3.0 Magnesium 1.9 Total Bilirubin 0.3 AST 14 L ALT 20 Alkaline Phosphatase 93 Assessment and Plan - Plan Suspected CHF exacerbation. Chest x-ray is concerning. BNP is over 5000. Continue Lasix therapy and put on strict input and output monitoring. Continue on 1.5 L fluid restriction. Suspected COPD exacerbation: Concerns for bronchitis entertained. Will continue breathing treatment and steroid therapy. Hypertension: We will monitor vital signs per unit protocol and continue antihypertensive medication. Diabetes type 2: Continue sliding scale insulin for glucose control, carb restricted diet and ACHS blood glucose monitoring. Hyperlipidemia: continue statin therapy Hypokalemia: Potassium is very low at 2.5. Will replete and follow levels. Prophylaxis: Lovenox for DVT prophylaxis. CODE STATUS: Full code. Disposition: We will manage her multiple medical issues and discharge her when she is deemed clinically stable. - Advance Directives Does patient have a Living Will: No Does patient have a Durable POA for Healthcare: Yes
[2023-04-19] MEDS ORDERED: NA CHLORIDE 0.9% 250 ML ONE (22:43)
[2023-04-19 23:26] VITALS: BMI 25.4
[2023-04-20] MEDS: ALBUTEROL 2.5 MG/3 ML NEB SOL NEB SCH (01:55)
[2023-04-20] MEDS: IPRATROPIUM BROM 0.5MG/2.5ML NEB SCH (01:55)
[2023-04-20] MEDS ORDERED: D50W 25 GM/50 ML SYRINGE IV PRN (04:23)
[2023-04-20] MEDS ORDERED: GLUCAGON 1 MG/VIAL IM PRN (04:23)
[2023-04-20] MEDS ORDERED: D10W 125 ML IV PRN (04:29)
[2023-04-20] MEDS: INSULIN REGULAR (HUMAN) 100 UNIT/ML SQ SCH (07:30)
[2023-04-20] MEDS: PNEUMOCOCCAL VACCINE 0.5 ML IMVAC ONE (09:00)
[2023-04-20] MEDS: INFLUENZA VACCINE (for 6+ mo) 0.5 ML DOSE IMVAC ONE (09:00)
[2023-04-20] MEDS: ACETAMINOPHEN 325 MG TABLET PO PRN (10:38)
[2023-04-20] MEDS: FUROSEMIDE 20 MG/ 2ML VIAL IV SCH (10:38)
[2023-04-20] MEDS: ENOXAPARIN 40 MG/0.4 ML SQ SCH (10:39)
[2023-04-20 11:08] LABS: Absolute Lymphocytes (CBC) 0.6 K/uL (0.7-4.9); Hematocrit 27.3 % (36.0-45.0); Lymphocytes % 12.9 % (15.3-44.8); MCV 83.2 fL (80-100); MPV 7.4 fL (7.6-11.3); Platelets 281 thou/uL (152-406); RBC Red Blood Cell Count 3.29 M/uL (3.86-4.86)
[2023-04-20 11:26] LABS: Potassium 3.6 mEq/L (3.5-5.1)
[2023-04-20 11:28] LABS: Troponin High Sensitivity 109.2 pg/mL (<58.9)
[2023-04-20] MEDS: HYDROCODONE/APAP 10/325 TAB PO PRN (15:48)
--- NOTE | 2023-04-20 16:40 | EKG ---
Test Date: 2023-04-19 Test Time: 18:10:25 Program Rep: KAYLEY MEASUREMENT RESULTS: Intervals: Rate: 89 NC: QRSD: 98 QT: 380 QTc: 462 [place]: P: NC: QRS: 62 T: 256 INTERPRETIVE STATEMENTS: Atrial fibrillation ST & T wave abnormality, consider inferolateral ischemia or digitalis effect Abnormal ECG Compared to ECG 04/19/2023 18:09:38 Ventricular premature complex(es) no longer present ST (T wave) deviation still present Possible ischemia still present Electronically Signed On 04-20-23 16:39:59 BALANCE WHEEL SCREW HOLE DRILLER by Stephon Mccullough
--- NOTE | 2023-04-20 16:41 | EKG ---
Test Date: 2023-04-19 Test Time: 18:09:38 Assessment Analyst: KAYLEY MEASUREMENT RESULTS: Intervals: Rate: 97 MT: QRSD: 92 QT: 364 QTc: 462 [place]: P: MT: QRS: 61 T: 266 INTERPRETIVE STATEMENTS: Atrial fibrillation with premature ventricular or aberrantly conducted complexes ST & T wave abnormality, consider inferolateral ischemia or digitalis effect Abnormal ECG Compared to ECG 04/18/2023 13:03:37 Ventricular premature complex(es) now present Left ventricular hypertrophy no longer present Prolonged QT interval no longer present ST (T wave) deviation still present Possible ischemia still present Electronically Signed On 04-20-23 16:40:06 KENNEL TECHNICIAN by Stephon Mccullough
--- NOTE | 2023-04-21 10:55 | ECHO ---
HEIGHT: 5 ft 2 in WEIGHT: 139 lb 0 oz DATE OF STUDY: 04/20/[address]: Krishna Leigh MD 2-DIMENSIONAL: YES M.MODE: YES DOPPLER: YES COLOR FLOW: YES TDS: PORTABLE: YES DEFINITY: BUBBLE STUDY: DIAGNOSIS: EVALUATION OF SHORTNESS OF BREATH AND CHEST PAIN CARDIAC HISTORY: CATHERIZATION: YES SURGERY: NO PROSTHETIC VALVE: NO PACEMAKER: NO MEASUREMENTS (cm) DIASTOLIC (NORMALS) SYSTOLIC (NORMALS) IVSd 1.3 (0.6-1.2) LA Diam 4.8 (1.9-4.0) LVEF 48% LVIDd 3.0 (3.5-5.7) LVIDs 2.3 (2.0-3.5) %FS 23% LVPWd 1.3 (0.6-1.2) Ao Diam 2.9 (2.0-3.7) 2 DIMENSIONAL ASSESSMENT: RIGHT ATRIUM: NORMAL LEFT ATRIUM: NORMAL RIGHT VENTRICLE: NORMAL LEFT VENTRICLE: NORMAL TRICUSPID VALVE: TRACE TRICUSPID REGURGITATION MITRAL VALVE: TRACE MITRAL REGURGITATION PULMONIC VALVE: NORMAL AORTIC VALVE: NORMAL PERICARDIAL EFFUSION: NONE AORTIC ROOT: NORMAL LEFT VENTRICULAR WALL MOTION: NORMAL LEFT VENTRICULAR SYSTOLIC FUNCTION. NORMAL WALL MOTION. EJECTION FRACTION 55-60%. NORMAL DIASTOLIC FUNCTION. DOPPLER/COLOR FLOW: NORMAL COMMENTS: 1. NORMAL LEFT VENTRICULAR SYSTOLIC AND DIASTOLIC FUNCTION. EJECTION FRACTION 55-60%. NORMALWALL MOTION 2. TRACE MITRAL REGURGITATION, TRICUSPID REGURGITATION 3. INFERIOR VENA CAVA NOT WELL VISUALIZED. TECHNOLOGIST: GARFIELD ADKINS
[2023-04-21] MEDS: ONDANSETRON 4 MG/2 ML VIAL IV PRN (15:25)
--- NOTE | 2023-04-21 18:08 | CON ---
Date of Consultation: 04/21/2023 Reason For Consultation: Elevated troponin. History Of Present Illness: A 67-year-old female, history of COPD, coronary artery disease status po st multiple stents, hypertension, diabetes, stroke, active smoker, presented with shortness of breath , cough, and orthopnea. Has no lower extremity edema. Mild chest discomfort is present as well. No nausea, vomiting, diarrhea. No other complaints. Past Medical History: As outlined above in the HPI. Medications: Refer consult sheet for detailed list. Allergies: NIFEDIPINE AND REGULAR INSULIN. Family History: No premature coronary artery disease or cancer. Social History: He is an ex-smoker. Does not drink, use any drugs. Review of Systems: All systems reviewed are negative except mentioned in HPI. Physical Examination: Vital Signs: Reviewed. Head and Neck: Pupils are equal, reactive to light. Intact eye movements. No JVD. No cervical jacqueline nopathy. Neck: Supple. Thyroid is not enlarged. Lungs: Clear to auscultation bilaterally. No rhonchi, rales, or crackles. No accessory muscle use. Heart: Regular rate and rhythm. No extra sounds. Abdomen: Soft, nontender. Bowel sounds positive. No organomegaly. No masses or hernia. No rigidi ty or rebound. Extremities: No edema, clubbing, cyanosis. Intact pulses. Skin: No rash. Neurologic: Alert, awake, oriented x3. No acute focal deficits appreciated. Investigations: Cardiac enzymes borderline elevated peaked at 127 and BUN is 13, creatinine 0.85, he moglobin is 9.1. Assessment/recommendation: 1.Elevated troponin, nonspecific chest pain, but has significant history including coronary artery d isease, diabetes and high blood pressure. Plan for Lexiscan nuclear stress test and an echo to [facility] evaluate. 2.Chronic obstructive pulmonary disease exacerbation, improving gradually. Continue current managem ent. 3.Hypertension. Blood pressure is controlled. Continue current therapy. 4.Congestive heart failure with elevated NT-proBNP. Obtain an echo. The patient is on diuretics no w. Monitor BUN, creatinine very closely. SR/MODL Voice ID: [id number] Report ID: [id number]
[2023-04-21] MEDS: SILVER SULFADIAZINE 1% 25 GM TOP SCH (19:28)
[2023-04-21] MEDS: TEMAZEPAM 15 MG CAP PO PRN (19:29)
[2023-04-22 06:22] LABS: Absolute Lymphocytes (CBC) 1.3 K/uL (0.7-4.9); Hematocrit 29.3 % (36.0-45.0); Lymphocytes % 27.5 % (15.3-44.8); MCV 83.2 fL (80-100); MPV 7.4 fL (7.6-11.3); Platelets 348 thou/uL (152-406); RBC Red Blood Cell Count 3.53 M/uL (3.86-4.86)
[2023-04-22 06:44] LABS: Potassium 3.4 mEq/L (3.5-5.1)
[2023-04-22] MEDS ORDERED: REGADENOSON 0.4 MG/5 ML SYR IV ONE (08:45)
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
[2023-04-22] MEDS: POTASSIUM CL SA 10 MEQ TAB PO ONE (09:59)
--- NOTE | 2023-04-22 10:00 | RAD REPORT ---
EXAM DESCRIPTION: NM - Rest Stress Cardiac Imaging - 04/22/2023 9:20 am CLINICAL HISTORY: NSTEMI COMPARISON: No comparisons TECHNIQUE: The patient was administered approximately 10.3 mCi of Tc 99m Sestamibi prior to resting SPECT imaging of the heart. The patient was then administered approximately 30.8 mCi of Tc 99m Sestam ibi following exercise or pharmacologic stress. Multiplanar SPECT images were reviewed. FINDINGS: No stress induced ischemic defect is seen to suggest stress induced ischemia. Fixed defect s involving the apex, inferior wall, and segments of the adjacent lateral wall. The end diastolic volume is 83 ml, the end systolic volume is 33 ml, and the ejection fraction is 60 %. Hypokinesia noted in the region of the apex. IMPRESSION: No evidence of stress-induced myocardial ischemia. A large fixed defects involving the apex, inferior wall, and segments of the adjacent lateral wall, s uggestive of sequelae of prior infarct. Left ventricular ejection fraction is within normal limits, 60%. Hypokinesia noted at the apex.
[2023-04-22] MEDS: METHYLPREDNISOLONE 125 MG INJ IV SCH (10:06)
--- NOTE | 2023-04-22 14:41 | TREADPHA ---
DX: NSTEMI Date of Study: 04/22/23 Ht: 5' 2 " Wt: 139 lb 0 oz Consulting Physician: URIAH MEDICATIONS: TYLENOL, NORCO, PROVENTIL, DEXTROSE, LOVENOX, LASIX, GLUCAGEN, NOVOLIN-R, ATROVENT, ZOFRAN HISTORY: STROKES, DIABETES MELLITUS, ATRIAL FIBRILLATION, STENTS X3, MYOCARDIAL INFARCTION, SMOKER, CONSUMES ALCOHOL PHYSICIAL EXAMINATION: RESTING B.P.: 132/76 RESTING H.R.: 103/-113 RESTING EKG: ATRIAL FIBRILLATION PROTOCOL: LEXISCAN EXERCISE TIME: 3:30 B.P. AT PEAK STRESS: 108/58 IMPRESSION: LEXISCAN INJECTED CARDIOLITE INJECTED NO CHEST PAIN NO VENTRICULAR TACHYCARDIA NO SUPRA VENTRICULAR TACHYCARDIA CONTINUES IN ATRIAL FIBRILLATION
[2023-04-22] MEDS: FUROSEMIDE 40 MG/4 ML VIAL IV SCH (17:29)
[2023-04-22 23:05] VITALS: O2SAT 99
[2023-04-23 03:51] LABS: Absolute Lymphocytes (CBC) 0.3 K/uL (0.7-4.9); Hematocrit 28.5 % (36.0-45.0); Lymphocytes % 11.3 % (15.3-44.8); MCV 81.9 fL (80-100); MPV 7.9 fL (7.6-11.3); Platelets 311 thou/uL (152-406); RBC Red Blood Cell Count 3.48 M/uL (3.86-4.86)
[2023-04-23 04:08] LABS: Potassium 3.3 mEq/L (3.5-5.1)
[2023-04-23] MEDS: POTASSIUM CL SA 10 MEQ TAB PO ONE (05:30)
[2023-04-23 08:17] VITALS: BP 136/80; TEMP 98.3
--- NOTE | 2023-04-23 09:03 | P.DS ---
Admission Date: 04/20/23 Discharge Date: 04/23/23 Disposition: ROUTINE DISCHARGE Discharge Condition: GOOD Reason for Admission: Shortness of breath, CHF exacerbation, suspected bronchitis. Brief History of Present Illness: 67-year-old female patient with medical history significant for diabetes type 2, hypertension, hyperlipidemia, history of COPD was evaluated for episode of worsening shortness of breath on exertion. She says she minimally exerting a short of breath and she had come into the ED. In the ED she had elevated BNP of 5000 and normal, x-ray finding of vascular congestion and concerns for worsening CHF issues. She also did have low potassium of 2.5. She was started on potassium repletion, given IV steroid therapy and breathing treatment and she was admitted for inpatient care. She has a cough which is nonproductive. She denies overt episode of fever, chills, rigor, nausea, vomiting, diarrhea. She also did have elevated troponin raising concerns for possible NSTEMI. - Physical Exam General: Alert, Oriented x3 HEENT: Atraumatic, Normocephalic Neck: Supple Respiratory: Diminished, equal unlabored Cardiovascular: Regular rate/rhythm, Normal S1 S2 Gastrointestinal: Soft and benign Musculoskeletal: No swelling Neurological: Normal speech, Normal strength at 5/5 x4 extr Hospital Course: 67 year-old female patient with past medical history of copd presented with shortness of breath. Was noted to have elevated BNP, Condition improved with fluid restriction, diuresis, steroids. Patient tolerating diet, stable for discharge to home with follow-up appointme nt with primary care physician, cardiology after discharge PROBLEM: COPD Elevated BNP Follow-up with cardiology after discharge continue lopressor 25 mg po BID Lasix 20 mg daily. Continue home medicines as previously prescribed GOAL: Clear understanding of disease process INSTRUCTIONS: Physician Discharge Instructions: -DC IV and DC home -Follow-up with PCP in 1 to 2 weeks -Please call Dr. Farfan at [phone] if any questions regarding hospital stay -Please call nursing station at [phone] if any nursing or medication questions -Return to the emergency room if symptoms worsen Diet: ADA, low sodium Activity: Fall precautions DME: Date Ordered: Name of Company: [employer] Services Needed: None Date or Referral: IMMUNIZATION Influenza Vaccine Indicated: Influenza Vaccine Given: Date Given: Pneumonia Vaccine Indicated: Pneumonia Vaccine Given: Date Given Vital Signs/Physical Exam: Temp Pulse Resp BP Pulse Ox 98.3 F 101 H 18 136/80 98 04/23/23 08:00 04/23/23 08:00 04/23/23 08:00 04/23/23 08:00 04/23/23 08:00 Laboratory Data at Discharge: WBC 2.90 thou/uL (4.3-10.9) L 04/23/23 02:30 Hgb 9.7 g/dL (12.0-15.0) L 04/23/23 02:30 Hct 28.5 % (36.0-45.0) L 04/23/23 02:30 Plt Count 311 thou/uL (152-406) 04/23/23 02:30 PT 11.3 SECONDS (9.5-12.5) 04/19/23 17:36 INR 1.03 04/19/23 17:36 Sodium 130 mEq/L (136-145) L 04/23/23 02:30 Potassium 3.3 mEq/L (3.5-5.1) L D 04/23/23 02:30 BUN 22 mg/dL (7-18) H 04/23/23 02:30 Creatinine 1.01 mg/dL (0.55-1.02) 04/23/23 02:30 Glucose 182 mg/dL (74-106) H 04/23/23 02:30 Phosphorus Cancelled 04/19/23 18:17 Magnesium 1.9 mg/dL (1.6-2.4) 04/19/23 17:36 Total Bilirubin 0.3 mg/dL (0.2-1.0) 04/19/23 17:36 AST 14 U/L (15-37) L 04/19/23 17:36 ALT 20 U/L (13-56) 04/19/23 17:36 Alkaline Phosphatase 93 U/L (45-117) 04/19/23 17:36 Triglycerides 84 mg/dL (<150) 04/20/23 10:54 Cholesterol 171 mg/dL (<200) 04/20/23 10:54 HDL Cholesterol 79 mg/dL (40-60) H 04/20/23 10:54 Cholesterol/HDL Ratio 2.16 04/20/23 10:54 Home Medications: Acetaminophen [Tylenol] 650 mg PO Q4HP PRN 03/02/23 Albuterol Neb [Proventil 0.083% Neb Soln] 2.5 mg NEB [id number] PRN #120 amp 04/06/23 Ciprofloxacin HCl [Cipro] 500 mg PO BID #10 tab 04/06/23 Clopidogrel Bisulfate [Plavix*] 75 mg PO DAILY 30 Days #30 tab 04/06/23 Codeine/APAP [Tylenol #3*] 1 tab PO Q4H PRN #20 tab 04/06/23 Docusate [Colace Cap*] 200 mg PO DAILY #30 cap 04/06/23 Ferrous Sulfate [Ferrous Sulfate*] 325 mg PO DAILY #30 tab 04/06/23 Lidocaine [Dermacinrx Lidocan] 1 each TP DAILY 30 Days #30 patch 04/06/23 Metoprolol Tartrate [Lopressor*] 25 mg PO BID 6AM 6PM #60 tab 04/06/23 Multivitamin with Minerals [Multivitamins with Minerals] 1 each PO DAILY #30 tab 04/06/23 Omeprazole 20 mg PO DAILY #30 tab 04/06/23 Polyethylene Glycol 3350 [Miralax] 17 gm PO DAILYPRN PRN #30 packet 04/06/23 Sodium Chloride Tab [Sodium Chloride*] 1 gm PO TID #90 tab 04/06/23 Physician Discharge Instructions: -DC IV and DC home -Follow-up with PCP in 1 to 2 weeks -Follow-up with Cardiology in 1 to 2 weeks -Please call Dr. Farfan at [phone] if any questions regarding hospital stay -Please call nursing station at [phone] if any nursing or medication questions -Return to the emergency room if symptoms worsen Diet: AHA Activity: Fall precautions Time spent managing pt's care (in minutes): 55
--- NOTE | 2023-04-23 09:55 | P.PN ---
Subjective Date of Service: 04/23/23 Chief Complaint: Shortness of breath, CHF exacerbation, suspected bronchitis. Subjective: No new changes (patient breathing better.) Review of Systems 10-point ROS is otherwise unremarkable Physical Examination - Vital Signs Temperature: 98.3 F Blood Pressure: 136/80 Pulse: 101 Respirations: 18 Pulse Ox (%): 98 - Physical Exam General: Alert, Oriented x3 HEENT: Atraumatic Neck: Supple Respiratory: Clear to auscultation bilaterally, Normal air movement Cardiovascular: No edema, Normal S1 S2 Gastrointestinal: Normal bowel sounds Musculoskeletal: No clubbing Assessment And Plan - Current Problems (Diagnosis) (1) Atrial fibrillation Current Visit: No Status: Acute Plan: currently rate controlled, Lopressor 25 mg po BID ASA 81 mg daily (patient have lot of finicial issues and will not be able to afford NOAC). Qualifiers: Atrial fibrillation type: paroxysmal Qualified Code(s): I48.0 - Paroxysmal atrial fibrillation (2) Hypertension Current Visit: No Status: Chronic Plan: lopressor 25 mg po BID Lasix 20 mg daily. Qualifiers: Hypertension type: primary hypertension Qualified Code(s): I10 - Essential (primary) hypertension
--- NOTE | 2023-05-02 02:47 | P.PN ---
Date of Service: 04/21/23 Subjective Patient is doing better. Respiratory status has improved. Continue with gentle diuresing. Physical Examination - Vitals Reviewed -Physical Exam General: Alert, Oriented x3 Respiratory: Diminished, Crackles/rales Cardiovascular: Regular rate/rhythm, Normal S1 S2 Gastrointestinal: Soft and benign Musculoskeletal: No swelling Neurological: No focal deficits Assessment and Plan - Assessment/Plan Suspected CHF exacerbation. Continue with diuretics. Monitor volume status closely. Continue with cardiac meds. Suspected COPD exacerbation: Outpatient pulmonary function testing; continue with neb treatments. Will continue breathing treatment and steroid therapy. Hypertension: We will monitor vital signs per unit protocol and continue antihypertensive medication. Diabetes type 2: Continue sliding scale insulin for glucose control, carb restricted diet and ACHS blood glucose monitoring. Hyperlipidemia: continue statin therapy Hypokalemia: Potassium is very low at 2.5. Will replete and follow levels. Prophylaxis: Lovenox for DVT prophylaxis. CODE STATUS: Full code. Disposition: We will manage her multiple medical issues and discharge her when she is deemed clinically stable. - Advance Directives Does patient have a Living Will: No Does patient have a Durable POA for Healthcare: Yes
== END 2023-04-23 10:01 | disposition home or self-care (01) | DRG 280 ==
LOC: ER 10:16 → ERHOLD 21:40 → 2ND 04-20 02:12 → OBSVTOIN 04-20 12:46
PROVIDERS: ADMIT Internal Medicine Nephrology; ATTEND Hospitalist
PROC: 4A033R1 Measurement of Arterial Saturation, Peripheral, Percutaneous Approach (ICD-10-PCS; principal; 2023-04-20)
PROC: 30233N1 Transfusion of Nonautologous Red Blood Cells into Peripheral Vein, Percutaneous Approach (ICD-10-PCS; 2023-04-20)
DX: I21.4 Non-ST elevation (NSTEMI) myocardial infarction (principal); I50.21 Acute systolic (congestive) heart failure; J96.01 Acute respiratory failure with hypoxia; J44.1 Chronic obstructive pulmonary disease with (acute) exacerbation; J44.0 Chronic obstructive pulmonary disease with (acute) lower respiratory infection; E87.1 Hypo-osmolality and hyponatremia; I11.0 Hypertensive heart disease with heart failure; J20.9 Acute bronchitis, unspecified; E87.6 Hypokalemia; E78.5 Hyperlipidemia, unspecified; I48.0 Paroxysmal atrial fibrillation; E11.9 Type 2 diabetes mellitus without complications; D50.9 Iron deficiency anemia, unspecified; T30.0 Burn of unspecified body region, unspecified degree; I25.2 Old myocardial infarction; I25.10 Atherosclerotic heart disease of native coronary artery without angina pectoris; F17.210 Nicotine dependence, cigarettes, uncomplicated; Z95.5 Presence of coronary angioplasty implant and graft; Z71.6 Tobacco abuse counseling; Z88.8 Allergy status to other drugs, medicaments and biological substances; Z90.49 Acquired absence of other specified parts of digestive tract; Z98.84 Bariatric surgery status; Z86.73 Personal history of transient ischemic attack (TIA), and cerebral infarction without residual deficits; Z79.02 Long term (current) use of antithrombotics/antiplatelets; Z90.710 Acquired absence of both cervix and uterus; Z79.899 Other long term (current) drug therapy; Z91.199 Patient's noncompliance with other medical treatment and regimen due to unspecified reason
CPT/HCPCS: 36415; 36600; 71045; 71260; 74177; 78452; 80048; 80053; 80061; 80076; 81001; 82805; 82947; 83735; 83880; 84100; 84132; 84443; 84484; 85025; 85610; 85730; 86850; 86900; 86901; 86920; 93005; 93017; 93306; 94640; 99285; A9500; C9113; G0378; J1100; J1650; J1815; J1940; J2405; J2785; J2930; J3480; J7030; J7040; J7050; J7613; J7614; J7644; P9016; Q9967

== ENCOUNTER → 2023-04-30 | Emergency (ER) | payer OTHER ==
--- NOTE | 2023-04-30 06:33 | ER ---
Nurse's Notes [facility] Name: Reina Hartley Age: 67 yrs Sex: Female : 1955 Arrival Date: 04/30/2023 Time: 04:54 Bed 4 Private MD: Diagnosis: Fall on same level, unspecified Presentation: 04/30 04:57 Chief complaint: EMS states: 67 year old female reports falling from sitting position ha1 and hitting her head. while siding on the sidewalk. after the fall she walked to the fire station reach for help. no LOC. 04:57 Coronavirus screen: Vaccine status: Patient reports receiving the 2nd dose of the covid ha1 vaccine. Moderna. Ebola Screen: No symptoms or risks identified at this time. Initial Sepsis Screen: Does the patient meet any 2 criteria? No. Patient's initial sepsis screen is negative. Does the patient have a suspected source of infection? No. Patient's initial sepsis screen is negative. Risk Assessment: Do you want to hurt yourself or someone else? Patient reports no desire to harm self or others. Onset of symptoms was April 30, 2023. 04:57 Acuity: ANDREA 3 ha1 Triage Assessment: 04:57 General: Appears comfortable, Behavior is calm, cooperative. Pain: Complains of pain in ha1 head Pain does not radiate. Pain currently is 10 out of 10 on a pain scale. Quality of pain is described as throbbing. Neuro: Level of Consciousness is awake, alert, obeys commands, Oriented to person, place, time, situation. Cardiovascular: Capillary refill < 3 seconds Patient's skin is warm and dry. Respiratory: Airway is patent Respiratory effort is even, unlabored, Respiratory pattern is regular, symmetrical. GI: No signs and/or symptoms were reported involving the gastrointestinal system. Derm: Skin is fragile, is thin, Skin is normal. Musculoskeletal: Circulation, motion, and sensation intact. Historical: - Allergies: 04:57 Procardia; ha1 04:57 all depression medications; ha1 - PMHx: 04:57 Arthritis; diabetes mellitus; Hypertensive disorder; Myocardial infarction; TIA ha1 (Myocardial infarcti); - PSHx: 04:57 Appendectomy; breast augmentation; cardiac stent; Cholecystectomy; Gastric Bypass; ha1 hysterectomy; Left hip; - Immunization history:: Adult Immunizations not up to date, Flu vaccine is up to date. - Social history:: Smoking status: Patient denies any tobacco usage or history of. Screenin:00 [facility] ED Fall Risk Assessment (Adult) History of falling in the last 3 months, ha1 including since admission Yes- single mechanical fall (1 pt) Confusion or Disorientation No (0 pts) Intoxicated or Sedated No (0 pts) Impaired Gait No (0 pts) Mobility Assist Device Used No (0 pt) Altered Elimination No (0 pt) Score/Fall Risk Level 3 or more points = High Risk Oriented to surroundings, Maintained a safe environment, Educated pt \T\ family on fall prevention, incl call for assistance when getting out of bed, Hourly rounding (assess needs \T\ fall precautionary measures) done. 06:18 Abuse screen: Denies threats or abuse. Denies injuries from another. Nutritional ha1 screening: No deficits noted. Tuberculosis screening: No symptoms or risk factors identified. Assessment: 04:57 Reassessment: see triage assessment. ha1 05:50 Reassessment: Patient and/or family updated on plan of care and expected duration. Pain ha1 level reassessed. Patient is alert, oriented x 3, equal unlabored respirations, skin warm/dry/pink. Vital Signs: 04:57 BP 157 / 96; Pulse 75; Resp 16 S; Temp 97.8; Pulse Ox 97% on R/A; ha1 05:50 BP 147 / 96; Pulse 96; Resp 18 S; Pulse Ox 99% on R/A; ha1 06:17 BP 134 / 74; Pulse 90; Resp 17 S; Pulse Ox 99% on R/A; ha1 ED Course: 04:57 Patient arrived in ED. ec2 04:57 Nabeel Guardado MD is Attending Physician. ec2 04:57 Patient has correct armband on for positive identification. Bed in low position. Call ha1 light in reach. Side rails up X 1. Side rails up X2. 04:57 Arm band placed on right wrist. ha1 05:14 CXR XRAY In Process Unspecified. EDMS 05:42 CT Head C Spine In Process Unspecified. EDMS 06:10 Triage completed. ha1 06:49 Provided Education on: fall prevention . ha1 06:49 No provider procedures requiring assistance completed. Patient did not have IV access ha1 during this emergency room visit. Administered Medications: No medications were administered Medication: 06:50 VIS not applicable for this client. ha1 Outcome: 06:32 Discharge ordered by . ec2 06:50 Discharged to home via wheelchair, ha1 06:50 Condition: stable 06:50 Discharge instructions given to patient, Instructed on discharge instructions, follow up and referral plans. Demonstrated understanding of instructions, follow-up care, 06:51 Patient left the ED. ha1 Signatures: Dispatcher [employer] Narcisa Forrest RN RN ha1 Nabeel Guardado MD MD ec2 Corrections: (The following items were deleted from the chart) 06:13 04:57 Chief complaint: EMS states: 67 year old female reports falling from standing ha1 position and hitting her head. after the fall she walked to the [facility] station reach for help. no LOC. ha1
--- NOTE | 2023-04-30 06:33 | EDPHYS ---
Physician Documentation [facility] Name: Reina Hartley Age: 67 yrs Sex: Female : 1955 Arrival Date: 04/30/2023 Time: 04:54 Bed 4 Private MD: ED Physician Nabeel Guardado HPI: 04/30 04:59 This 67 yrs old Female presents to ER via Unassigned with complaints of fall. ec2 04:59 Patient arrives today for evaluation after fall. Patient reportedly had a fall, no LOC, ec2 complaining of headache. Denies any prodromal symptoms, shortness of breath, or difficulty breathing, no chest pain.. Historical: - Allergies: 04:57 Procardia; ha1 04:57 all depression medications; ha1 - PMHx: 04:57 Arthritis; diabetes mellitus; Hypertensive disorder; Myocardial infarction; TIA ha1 (Myocardial infarcti); - PSHx: 04:57 Appendectomy; breast augmentation; cardiac stent; Cholecystectomy; Gastric Bypass; ha1 hysterectomy; Left hip; - Immunization history:: Adult Immunizations not up to date, Flu vaccine is up to date. - Social history:: Smoking status: Patient denies any tobacco usage or history of. ROS: 04:59 Constitutional: as per hpi ec2 Exam: 04:59 Constitutional: GEN: No acute distress HEENT: -Head: no deformities -Eyes: EOMI CV: ec2 regular rate LUNGS: no respiratory distress ABD: non-tender SKIN: no wounds appreciated MSK: No C/T/L spine deformities RUE w/o bony deformity LUE w/o bony deformity RLE w/o bony deformity LLE w/o bony deformity NEURO: moves all extremities equally, GCS 15 (E4, V5, M6) Vital Signs: 04:57 BP 157 / 96; Pulse 75; Resp 16 S; Temp 97.8; Pulse Ox 97% on R/A; ha1 05:50 BP 147 / 96; Pulse 96; Resp 18 S; Pulse Ox 99% on R/A; ha1 06:17 BP 134 / 74; Pulse 90; Resp 17 S; Pulse Ox 99% on R/A; ha1 MDM: 04:58 Patient medically screened. ec2 04:59 Data reviewed: vital signs. ED course: Patient arrives today for evaluation after ec2 ground-level fall. Examination remarkable well-appearing nontoxic in which was otherwise in no acute distress. Will obtain CT scan of the head as well as a chest x-ray. Evaluate for intracranial injury as well as intrathoracic injury. . 06:31 ED course: CT head and C-spine show no acute traumatic process.. ec2 06:32 ED course: Chest x-ray independently reviewed and interpreted by me, shows no acute ec2 traumatic process. Will discharge home. Return precautions given.. 04/30 04:58 Order name: CT Head C Spine ec2 04/30 04:58 Order name: CXR XRAY ec2 Administered Medications: No medications were administered Disposition Summary: 04/30/23 06:32 Discharge Ordered Notes: Location: Home ec2 Condition: Stable ec2 Diagnosis - Fall on same level, unspecified ec2 Followup: ec2 - With: Private Physician - When: - Reason: Re-evaluation by your physician Discharge Instructions: - Discharge Summary Sheet ec2 - Fall Prevention in the Home, Adult, [id number] ec2 Forms: - Medication Reconciliation Form ec2 - Thank You Letter ec2 - Antibiotic Education ec2 - Prescription Opioid Use ec2 - Patient Portal Instructions ec2 - Leadership Thank You Letter ec2 Signatures: Dispatcher [employer] Narcisa Forrest RN RN [facility] Nabeel Guardado MD MD ec2
[2023-04-30 07:03] VITALS: BP 134/74; TEMP 97.8; O2SAT 99
--- NOTE | 2023-04-30 07:30 | RAD REPORT ---
EXAM DESCRIPTION: RAD - Chest Single View - 04/30/2023 5:12 am CLINICAL HISTORY: fall COMPARISON: Chest Single View dated 04/19/2023; Chest Single View dated 04/18/2023; Chest Single View da gagan 04/09/2023; Chest Single View dated 04/04/2023 FINDINGS: Lines: None. Lungs: No evidence of edema or pneumonia. Pleural: No significant pleural effusions or pneumothorax. Cardiac: The heart size is within normal limits. Mediastinum: Within normal limits. Bones: No acute fractures. Other: None IMPRESSION: No acute cardiopulmonary disease.
--- NOTE | 2023-04-30 19:54 | RAD REPORT ---
EXAM DESCRIPTION: CT - Head C Spine Mpr Wo Con - 04/30/2023 6:55 am CLINICAL HISTORY: The patient is 67 years old and is Female; fall TECHNIQUE: Axial computed tomography images of the head/brain and cervical spine without intravenous contrast. Sagittal and coronal reformatted images were created and reviewed. This CT exam was pe rformed using one or more of the following dose reduction techniques: automated exposure control, a djustment of the mA and/or kV according to patient size, and/or use of iterative reconstruction techn ique. COMPARISON: April 09, 2023 FINDINGS: Brain: Mild age related periventricular white matter microangiopathic changes. Chronic l acunar infarct left caudate. No hemorrhage. Ventricles: Within normal limits for age. No ventriculomegaly. Skull: No acute skull fracture. Sinuses: Unremarkable as visualized. No acute sinusitis. Mastoid air cells: Unremarkable as visualized. No mastoid fluid. Vertebrae: No acute cervical spine fracture visualized. 3 mm anterolisthesis C3 on C4. Mild multilevel degenerative facet arthropathy. Mild scoliosis. Discs/spinal canal/neural foramina: Degenerative disc disease C4-5 and C5-6, similar to the prior exam. No significant central canal stenosis. Soft tissues: Unremarkable. Pleural space: No apical pneumothorax. IMPRESSION: 1. No acute intracranial findings. No hemorrhage. 2. Mild age related periventricular white matter microangiopathic changes. Chronic lacunar infarct left caudate. 3. No acute cervical spine fracture visualized. 4. 3 mm anterolisthesis C3 on C4. 5. Degenerative disc disease C4-5 and C5-6, similar to the prior exam. Electronically signed by: Cristal Callaway MD 04/30/2023 06:22 AM TAB MACHINE OPERATOR Due to temporary technical issues with the PACS/Fluency reporting system, reports are being signed by the in house radiologists without review as a courtesy to insure prompt reporting. The interpreting radiologist is fully responsible for the content of the report.
== END ==
LOC: ER 04:54
DX: R51.9 Headache, unspecified (principal); W18.30XA Fall on same level, unspecified, initial encounter; Z98.82 Breast implant status; Z88.8 Allergy status to other drugs, medicaments and biological substances; Z95.818 Presence of other cardiac implants and grafts
CPT/HCPCS: 70450; 71045; 72125; 99283

== ENCOUNTER → 2023-05-04 | Emergency (ER) | payer OTHER ==
[~2023-05-04] MED LIST changes: +ACETAMINOPHEN 500 MG TAB ONE; -MORPHINE 4 MG/ML SYR ONE; -NA CHLORIDE 0.9% 500 ML ONE; -ONDANSETRON 4 MG/2 ML VIAL ONE
--- NOTE | 2023-05-04 12:50 | RAD REPORT ---
EXAM DESCRIPTION: RAD - Chest Single View - 05/04/2023 12:44 pm CLINICAL HISTORY: COUGH COMPARISON: Chest Single View dated 04/30/2023; Chest Single View dated 04/19/2023; Chest Single View d ated 04/18/2023; Chest Single View dated 04/09/2023; Rest Stress Cardiac Imaging dated 04/22/2023 FINDINGS: Lines: None. Lungs: No evidence of edema or pneumonia. Pleural: No significant pleural effusions or pneumothorax. Cardiac: Mild enlargement of the cardiopericardial silhouette. Mediastinum: Within normal limits. Bones: No acute fractures. Scoliosis. Other: Surgical clips at the right aspect of the neck. Calcified breast prostheses. IMPRESSION: No acute cardiopulmonary disease.
--- NOTE | 2023-05-04 12:54 | ER ---
Nurse's Notes [facility] Name: Reina Hartley Age: 67 yrs Sex: Female : 1955 Arrival Date: 05/04/2023 Time: 11:33 Bed 20 Private MD: Diagnosis: Dyspnea Presentation: 05/04 11:38 Chief complaint: EMS states: shortness of breath and back pain. Coronavirus screen: cp4 Client denies travel out of the [place] in the last 14 days. At this time, the client does not indicate any symptoms associated with coronavirus-19. Ebola Screen: Patient negative for fever greater than or equal to 101.5 degrees Fahrenheit, and additional compatible Ebola Virus Disease symptoms Patient denies exposure to infectious person. Patient denies travel to an Ebola-affected area in the 21 days before illness onset. Initial Sepsis Screen: Does the patient meet any 2 criteria? No. Patient's initial sepsis screen is negative. Does the patient have a suspected source of infection? No. Patient's initial sepsis screen is negative. Risk Assessment: Do you want to hurt yourself or someone else? Patient reports no desire to harm self or others. Onset of symptoms was May 04, 2023. 11:38 Method Of Arrival: EMS: [facility] 4 11:38 Acuity: ANDREA 3 cp4 Triage Assessment: 11:42 General: Appears in no apparent distress. Behavior is calm, cooperative, appropriate cp4 for age. Pain: Complains of pain in back. Respiratory: Reports shortness of breath at rest on exertion Breath sounds are clear bilaterally. Historical: - Allergies: 11:40 all depression medications; cp4 11:40 Procardia; cp4 - PMHx: 11:40 Arthritis; diabetes mellitus; Hypertensive disorder; Myocardial infarction; TIA cp4 (Myocardial infarcti); - PSHx: 11:40 Appendectomy; cardiac stent; breast augmentation; Cholecystectomy; hysterectomy; cp4 Gastric Bypass; Left hip; - Immunization history:: Adult Immunizations up to date. - Social history:: Smoking status: Patient reports the use of cigarette tobacco products, smokes one pack cigarettes per day. Screenin:43 [facility] ED Fall Risk Assessment (Adult) History of falling in the last 3 months, cp4 including since admission No falls in past 3 months (0 pts) Confusion or Disorientation No (0 pts) Intoxicated or Sedated No (0 pts) Impaired Gait Yes (1 pt) Mobility Assist Device Used No (0 pt) Altered Elimination No (0 pt) Score/Fall Risk Level 0 - 2 = Low Risk Oriented to surroundings, Maintained a safe environment, Educated pt \T\ family on fall prevention, incl call for assistance when getting out of bed, Assessed \T\ reinforced patient's understanding of fall precautions, Provided non-skid footwear, Hourly rounding (assess needs \T\ fall precautionary measures) done. Abuse screen: Denies threats or abuse. Nutritional screening: No deficits noted. Tuberculosis screening: No symptoms or risk factors identified. Assessment: 11:43 General: Appears in no apparent distress. cp4 Vital Signs: 11:38 BP 121 / 80; Pulse 100; Resp 18; Temp 98; Pulse Ox 100% ; cp4 13:10 BP 129 / 80; Pulse 104; Resp 18; Pulse Ox 100% ; cp4 ED Course: 11:36 Patient arrived in ED. ec2 11:36 Nabeel Guardado MD is Attending Physician. ec2 11:38 Little Arana is Primary Nurse. cp4 11:40 Triage completed. cp4 11:42 Arm band placed on right wrist. Patient placed in the treatment room, on a stretcher. cp4 11:43 Placed in gown. Bed in low position. Call light in reach. Side rails up X 1. cp4 12:45 CXR XRAY In Process Unspecified. EDMS 13:08 Provided Education on: cough. cp4 13:08 No provider procedures requiring assistance completed. Patient did not have IV access cp4 during this emergency room visit. Administered Medications: 12:51 Drug: Acetaminophen PO 1000 mg PO once Route: PO; cp4 13:11 Follow up: Response: No adverse reaction cp4 Medication: 11:43 VIS not applicable for this client. cp4 Outcome: 12:53 Discharge ordered by . ec2 13:08 Discharged to home ambulatory, cp4 13:08 Condition: stable 13:08 Discharge instructions given to patient, Instructed on discharge instructions, follow up and referral plans. Demonstrated understanding of instructions, follow-up care, 13:11 Patient left the ED. cp4 Signatures: Dispatcher [employer] EDAL Nabeel Guardado MD MD [facility] Little Arana cp4
--- NOTE | 2023-05-04 12:54 | EDPHYS ---
Physician Documentation [facility] Name: Reina Hartley Age: 67 yrs Sex: Female : 1955 Arrival Date: 05/04/2023 Time: 11:33 Bed 20 Private MD: ED Physician Nabeel Guardado HPI: 05/04 11:37 This 67 yrs old Female presents to ER via Unassigned with complaints of cough.ec2 11:37 Patient arrives today for evaluation of cough and shortness of breath. Patient is 1/2 ec2 pack/day smoker. Patient reports no chest pain, denies difficulty breathing at this time. No fevers or chills, no nausea or vomiting, complains of other multiple complaints including chronic back pain, right knee pain.. Historical: - Allergies: 11:40 all depression medications; cp4 11:40 Procardia; cp4 - PMHx: 11:40 Arthritis; diabetes mellitus; Hypertensive disorder; Myocardial infarction; TIA cp4 (Myocardial infarcti); - PSHx: 11:40 Appendectomy; cardiac stent; breast augmentation; Cholecystectomy; hysterectomy; cp4 Gastric Bypass; Left hip; - Immunization history:: Adult Immunizations up to date. - Social history:: Smoking status: Patient reports the use of cigarette tobacco products, smokes one pack cigarettes per day. ROS: 11:37 Constitutional: as per hpi ec2 Exam: 11:37 Constitutional: GEN: NAD Head: atraumatic Eyes: EOMI Ears: External ears are ec2 normal. CV: regular rate LUNGS: no respiratory distress, no wheezes, rales, rhonchi ABD: non-distended SKIN: no evidence of rashes MSK: no evidence of trauma NEURO: moves all extremities equally Vital Signs: 11:38 BP 121 / 80; Pulse 100; Resp 18; Temp 98; Pulse Ox 100% ; cp4 13:10 BP 129 / 80; Pulse 104; Resp 18; Pulse Ox 100% ; cp4 MDM: 11:37 Patient medically screened. ec2 11:38 ED course: Patient arrives today for evaluation of cough and shortness of breath. ec2 Examination remarkable for well-appearing nontoxic individual is otherwise in no acute distress. Will obtain EKG and chest x-ray. Suspect patient's chronic shortness of breath due to her smoking, patient otherwise not wheezing, does not have chest pain.. 11:58 Data reviewed: vital signs. ec2 12:01 ED course: EKG independently reviewed and interpreted by me, shows atrial flutter with ec2 narrow conduction, rate of 98, no acute ST segment elevations, nonconcerning intervals.. 12:53 ED course: Chest x-ray shows no acute intrathoracic process. Will discharge home. ec2 Return precautions given. Instructed the patient to stop smoking for her cough and cold symptoms. Low suspicion for ACS or PE or dissection.. 05/04 11:37 Order name: CXR XRAY; Complete Time: 12:53 ec2 05/04 11:37 Order name: EKG - Nurse/Tech; Complete Time: 11:59 ec2 Administered Medications: 12:51 Drug: Acetaminophen PO 1000 mg PO once Route: PO; cp4 13:11 Follow up: Response: No adverse reaction cp4 Disposition Summary: 05/04/23 12:53 Discharge Ordered Notes: Location: Home ec2 Condition: Stable ec2 Diagnosis - Dyspnea ec2 Followup: ec2 - With: Private Physician - When: - Reason: Re-evaluation by your physician Discharge Instructions: - Discharge Summary Sheet ec2 - Cough, Adult, [id number] ec2 Forms: - Medication Reconciliation Form ec2 - Thank You Letter ec2 - Antibiotic Education ec2 - Prescription Opioid Use ec2 - Patient Portal Instructions ec2 - Leadership Thank You Letter ec2 Signatures: Dispatcher [employer] EDMS Nabeel Guardado MD MD ec2 Little Arana cp4 Corrections: (The following items were deleted from the chart) 12:54 12:53 ED course: Chest x-ray shows no acute intrathoracic process. Will discharge home. ec2 Return precautions given. Instructed the patient to stop smoking for her cough and cold symptoms.. ec2
[2023-05-04 13:37] VITALS: BP 129/80; TEMP 98; O2SAT 100
== END ==
LOC: ER 11:33
DX: R06.00 Dyspnea, unspecified (principal); R05.9 Cough, unspecified; I10 Essential (primary) hypertension; I25.2 Old myocardial infarction; F17.210 Nicotine dependence, cigarettes, uncomplicated; Z95.818 Presence of other cardiac implants and grafts; Z98.82 Breast implant status; Z88.8 Allergy status to other drugs, medicaments and biological substances
CPT/HCPCS: 71045

== ENCOUNTER 2023-05-07 03:15 | Observation (INO) | payer OTHER ==
[2023-05-07] MEDS ORDERED: ASPIRIN 81 MG CHEWABLE TABLET ONE (05:41)
[2023-05-07] MEDS ORDERED: NA CHLORIDE 0.9% 500 ML ONE (05:42)
--- NOTE | 2023-05-07 06:36 | ER ---
Nurse's Notes [facility] Name: Reina Hartley Age: 67 yrs Sex: Female : 1955 Arrival Date: 05/07/2023 Time: 03:15 Bed 20 Private MD: Diagnosis: Chronic atrial fibrillation;Chest pain, unspecified;Type 2 diabetes mellitus with hyperglycemia Presentation: 05/07 03:17 Note pt called from lobby. no answer. lg3 03:35 Chief complaint:. Note Pt found wondering around the surgery center waiting room and vc1 escorted back to the lobby. 03:35 Risk Assessment: Do you want to hurt yourself or someone else? Patient reports no vc1 desire to harm self or others. Onset of symptoms was May 07, 2023. 03:35 Acuity: ANDREA 3 vc1 03:35 Coronavirus screen: Vaccine status: Patient reports receiving the 2nd dose of the covid vc1 vaccine. Client denies travel out of the [place] in the last 14 days. At this time, the client does not indicate any symptoms associated with coronavirus-19. Ebola Screen: Patient negative for fever greater than or equal to 101.5 degrees Fahrenheit, and additional compatible Ebola Virus Disease symptoms Patient denies exposure to infectious person. Patient denies travel to an Ebola-affected area in the 21 days before illness onset. No symptoms or risks identified at this time. Initial Sepsis Screen: Does the patient meet any 2 criteria? No. Patient's initial sepsis screen is negative. Does the patient have a suspected source of infection? No. Patient's initial sepsis screen is negative. 03:35 Method Of Arrival: EMS: [facility] vc1 Triage Assessment: 06:07 General: Appears in no apparent distress. comfortable, Behavior is calm, cooperative, vc1 appropriate for age. Pain: Complains of pain in thoracic area and lumbar area Pain does not radiate. Pain currently is 9 out of 10 on a pain scale. EENT: No deficits noted. No signs and/or symptoms were reported regarding the EENT system. Neuro: Level of Consciousness is awake, alert, obeys commands, Oriented to person, place, time, situation, Appropriate for age. Cardiovascular: No deficits noted. Respiratory: Airway is patent Respiratory effort is even, unlabored, Respiratory pattern is regular, symmetrical. GI: No deficits noted. No signs and/or symptoms were reported involving the gastrointestinal system. : No deficits noted. No signs and/or symptoms were reported regarding the genitourinary system. Derm: No deficits noted. No signs and/or symptoms reported regarding the dermatologic system. Musculoskeletal: Reports pain in thoracic area, lumbar area and left knee. Historical: - Allergies: 03:35 all depression medications; vc1 03:35 Procardia; vc1 - PMHx: 03:35 Arthritis; diabetes mellitus; Hypertensive disorder; Myocardial infarction; TIA vc1 (Myocardial infarcti); - PSHx: 03:35 Appendectomy; breast augmentation; cardiac stent; Cholecystectomy; Gastric Bypass; vc1 hysterectomy; Left hip; - Immunization history:: Client reports receiving the 2nd dose of the Covid vaccine, Flu vaccine is up to date. - Social history:: Smoking status: Patient reports the use of cigarette tobacco products, smokes one-half pack cigarettes per day. - Family history:: not pertinent. Screenin:09 [facility] ED Fall Risk Assessment (Adult) History of falling in the last 3 months, vc1 including since admission No falls in past 3 months (0 pts) Confusion or Disorientation No (0 pts) Intoxicated or Sedated No (0 pts) Impaired Gait No (0 pts) Mobility Assist Device Used No (0 pt) Altered Elimination No (0 pt) Score/Fall Risk Level 0 - 2 = Low Risk Oriented to surroundings, Maintained a safe environment, Educated pt \\T\\ family on fall prevention, incl call for assistance when getting out of bed. Abuse screen: Denies threats or abuse. Nutritional screening: No deficits noted. Tuberculosis screening: No symptoms or risk factors identified. Assessment: 07:00 General: Appears in no apparent distress. comfortable, unkempt, well developed, kc6 Behavior is calm, cooperative, appropriate for age. Neuro: Level of Consciousness is awake, alert, obeys commands, Oriented to person, place, time, situation, Appropriate for age. Cardiovascular: Capillary refill < 3 seconds. Respiratory: Airway is patent Trachea midline Respiratory effort is even, unlabored, Respiratory pattern is regular, symmetrical. GI: No signs and/or symptoms were reported involving the gastrointestinal system. : Reports burning with urination. EENT: No signs and/or symptoms were reported regarding the EENT system. Derm: No signs and/or symptoms reported regarding the dermatologic system. Skin is intact, is healthy with good turgor, Skin is pink, warm \\T\\ dry. Musculoskeletal: No signs and/or symptoms reported regarding the musculoskeletal system. Circulation, motion, and sensation intact. Capillary refill < 3 seconds, Range of motion: intact in all extremities. 07:58 Reassessment: Patient appears in no apparent distress at this time. No changes from kc6 previously documented assessment. Patient and/or family updated on plan of care and expected duration. Pain level reassessed. Patient is alert, oriented x 3, equal unlabored respirations, skin warm/dry/pink. 08:58 Reassessment: Patient appears in no apparent distress at this time. No changes from kc6 previously documented assessment. Patient and/or family updated on plan of care and expected duration. Pain level reassessed. Patient is alert, oriented x 3, equal unlabored respirations, skin warm/dry/pink. please see [facility] for further charting. 11:52 Reassessment: attempted to call report to 2nd floor. nurse elias states she will call kc6 me back in 5min. 12:02 Reassessment: pt appears to have had a bowel movement on the floor. pt states "my kc6 bowels just let loose on me." charge nurse notified. attempted to call report to 2nd floor. no answer at this time. Vital Signs: 03:35 BP 133 / 79; Pulse 86; Resp 17; Pulse Ox 99% ; Weight 61.23 kg; Height 5 ft. 2 in. ; vc1 Pain 9/10; 07:57 BP 108 / 81; Pulse 84; Resp 16 S; Pulse Ox 100% on R/A; kc6 03:35 Body Mass Index 24.69 (61.23 kg, 157.48 cm) vc1 03:35 Pain Scale: Adult vc1 ED Course: 03:17 Patient arrived in ED. tm6 03:22 Elias Gamez MD is Attending Physician. savage 04:11 Chest Single View XRAY In Process Unspecified. EDMS 05:46 Inserted saline lock: 22 gauge in left wrist, using aseptic technique. tm6 05:59 Triage completed. vc1 06:07 Arm band placed on right wrist. EKG completed in triage. Results shown to MD. EKG vc1 completed in triage. Results shown to MD. 06:34 Jamison Farfan MD is Hospitalizing Provider. savage 07:00 Inserted saline lock: 22 gauge in right forearm, using aseptic technique. Patient kc6 maintains SpO2 saturation greater than 95% on room air. 07:00 Patient has correct armband on for positive identification. Placed in gown. Bed in low kc6 position. Call light in reach. Side rails up X2. Client placed on continuous cardiac and pulse oximetry monitoring. NIBP monitoring applied. 08:58 No provider procedures requiring assistance completed. Patient admitted, IV remains in kc6 place. Administered Medications: 05:47 Drug: NS 0.9% IV 500 ml IV at bolus once Route: IV; Rate: bolus; Site: left hand; vc1 07:00 Follow up: Response: No adverse reaction; IV Status: Completed infusion; IV Intake: kc6 500ml 05:47 Drug: Aspirin PO Chewable Tablet 162 mg PO once Route: PO; vc1 06:56 Follow up: Response: No adverse reaction lg3 07:35 Drug: Metoprolol PO 50 mg PO once Route: PO; kc6 07:58 Follow up: Response: No adverse reaction; Blood pressure is lowered kc6 07:35 Drug: Enoxaparin Sub-Q 60 mg Sub-Q once Route: Sub-Q; Site: abdomen; kc6 07:58 Follow up: Response: No adverse reaction kc6 07:51 Drug: Famotidine IVP 20 mg IVP once; dilute with 10 mL 0.9% NaCl; give over 2 minutes kc6 Route: IVP; Site: right forearm; 07:58 Follow up: Response: No adverse reaction kc6 07:51 Drug: Rocephin IV 1 grams IV at per protocol once; Given slow IV push per pharmacy kc6 instructions Route: IV; Rate: per protocol; Site: right forearm; 07:58 Follow up: Response: No adverse reaction; IV Status: Completed infusion; IV Intake: [id number] Medication: 06:10 VIS not applicable for this client. vc1 Intake: 07:00 IV: 500ml; Total: 500ml. kc6 07:58 IV: 10ml; Total: 510ml. kc6 Outcome: 06:35 Decision to Hospitalize by Provider. savage 08:58 Admitted to ER Hold. Please see [facility] for further documentation. kc6 08:58 Condition: good 08:58 Instructed on the need for admit, 12:19 Patient left the ED. kc6 Signatures: Dispatcher [employer] EDElias Wilder MD MD cha Able, Lacie, RN RN lg3 Radha Banegas RN RN vc1 Dot Webster RN RN kc6 Choco Blackman RN RN tm6
--- NOTE | 2023-05-07 06:36 | EDPHYS ---
Physician Documentation [facility] Name: Reina Hartley Age: 67 yrs Sex: Female : 1955 Arrival Date: 05/07/2023 Time: 03:15 Bed 20 Private MD: Elias Ivy HPI: 05/07 05:09 This 67 yrs old Female presents to ER via Unassigned with complaints of chest savage pain. 05:09 The patient or guardian reports chest pain that is located primarily in the substernal savage area, anterior chest wall, bilaterally. Onset: 4 hour(s) ago. The pain does not radiate. Associated signs and symptoms: The patient has no apparent associated signs or symptoms. The chest pain is described as a pressure. Duration: The patient or guardian reports a single episode, that is still ongoing, The patient or guardian reports multiple episodes, that wax and wane. Severity of pain: At its worst the pain was mild moderate in the emergency department the pain is unchanged. The patient has not experienced similar symptoms in the past. Historical: - Allergies: 03:35 all depression medications; vc1 03:35 Procardia; vc1 - PMHx: 03:35 Arthritis; diabetes mellitus; Hypertensive disorder; Myocardial infarction; TIA vc1 (Myocardial infarcti); - PSHx: 03:35 Appendectomy; breast augmentation; cardiac stent; Cholecystectomy; Gastric Bypass; vc1 hysterectomy; Left hip; - Immunization history:: Client reports receiving the 2nd dose of the Covid vaccine, Flu vaccine is up to date. - Social history:: Smoking status: Patient reports the use of cigarette tobacco products, smokes one-half pack cigarettes per day. - Family history:: not pertinent. ROS: 05:09 Constitutional: Negative for fever, chills, and weight loss, Eyes: Negative for injury, savage pain, redness, and discharge, ENT: Negative for injury, pain, and discharge, Neck: Negative for injury, pain, and swelling, Respiratory: Negative for shortness of breath, cough, wheezing, and pleuritic chest pain, Abdomen/GI: Negative for abdominal pain, nausea, vomiting, diarrhea, and constipation, Back: Negative for injury and pain, : Negative for injury, bleeding, discharge, and swelling, MS/Extremity: Negative for injury and deformity, Skin: Negative for injury, rash, and discoloration, Neuro: Negative for headache, weakness, numbness, tingling, and seizure, Psych: Negative for depression, anxiety, suicide ideation, homicidal ideation, and hallucinations, Allergy/Immunology: Negative for hives, rash, and allergies, Endocrine: Negative for neck swelling, polydipsia, polyuria, polyphagia, and marked weight changes, Hematologic/Lymphatic: Negative for swollen nodes, abnormal bleeding, and unusual bruising, 05:09 Cardiovascular: Positive for chest pain, Exam: 05:09 Constitutional: This is a well developed, well nourished patient who is awake, alert, savage and in no acute distress. Head/Face: Normocephalic, atraumatic. Eyes: Pupils equal round and reactive to light, extra-ocular motions intact. Lids and lashes normal. Conjunctiva and sclera are non-icteric and not injected. Cornea within normal limits. Periorbital areas with no swelling, redness, or edema. ENT: Nares patent. No nasal discharge, no septal abnormalities noted. Tympanic membranes are normal and external auditory canals are clear. Oropharynx with no redness, swelling, or masses, exudates, or evidence of obstruction, uvula midline. Mucous membranes moist. Neck: Trachea midline, no thyromegaly or masses palpated, and no cervical lymphadenopathy. Supple, full range of motion without nuchal rigidity, or vertebral point tenderness. No Meningismus. Chest/axilla: Normal chest wall appearance and motion. Nontender with no deformity. No lesions are appreciated. Cardiovascular: Regular rate and rhythm with a normal S1 and S2. No gallops, murmurs, or rubs. Normal PMI, no JVD. No pulse deficits. Respiratory: Lungs have equal breath sounds bilaterally, clear to auscultation and percussion. No rales, rhonchi or wheezes noted. No increased work of breathing, no retractions or nasal flaring. Abdomen/GI: Soft, non-tender, with normal bowel sounds. No distension or tympany. No guarding or rebound. No evidence of tenderness throughout. Back: No spinal tenderness. No costovertebral tenderness. Full range of motion. Female : Normal external genitalia. Skin: Warm, dry with normal turgor. Normal color with no rashes, no lesions, and no evidence of cellulitis. MS/ Extremity: Pulses equal, no cyanosis. Neurovascular intact. Full, normal range of motion. Neuro: Awake and alert, GCS 15, oriented to person, place, time, and situation. Cranial nerves II-XII grossly intact. Motor strength 5/5 in all extremities. Sensory grossly intact. Cerebellar exam normal. Normal gait. Psych: Awake, alert, with orientation to person, place and time. Behavior, mood, and affect are within normal limits. Vital Signs: 03:35 BP 133 / 79; Pulse 86; Resp 17; Pulse Ox 99% ; Weight 61.23 kg; Height 5 ft. 2 in. ; vc1 Pain 9/10; 07:57 BP 108 / 81; Pulse 84; Resp 16 S; Pulse Ox 100% on R/A; kc6 03:35 Body Mass Index 24.69 (61.23 kg, 157.48 cm) vc1 03:35 Pain Scale: Adult vc1 MDM: 03:22 Patient medically screened. savage 05:11 Differential diagnosis: abnormal EKG, acute myocardial infarction, acute pericarditis, savage anxiety, coronary artery disease chest wall pain, congestive heart failure cholecystitis, Cholelithiasis costochondritis, gastritis, herpes zoster, pancreatitis, peptic ulcer disease, pericarditis, pleurisy, pneumonia, stable angina, thoracic aortic disection. HEART Score: ECG:. The patient was given aspirin in the Emergency Department. KYLE Risk Score: 1 - patient's age is greater or equal to 65 years, 1 - Three or more CAD risk factors, [Family Hx], [HTN], [Elevated Cholesterol], [Active Smoker], TOTAL SCORE = 2. Data reviewed: vital signs, nurses notes, lab test result(s), EKG, radiologic studies, plain films. Consideration of Admission/Observation Escalation of care including admission/observation considered. I considered the following discharge prescriptions or medication management in the emergency department Medications were administered in the Emergency Department. See MAR. Independent interpretation of the following test(s) in the Emergency Department EKG: See my EKG interpretation above. Test considered but Not performed: Ultrasound no 2 d echo. Care significantly affected by the following chronic conditions: Diabetes, Hypertension. 05/07 03:23 Order name: CBC with Diff savage 05/07 03:23 Order name: Comprehensive Metabolic Panel; Complete Time: 07:50 savage 05/07 03:23 Order name: Troponin HS; Complete Time: 07:50 [facility] 05/07 05:07 Order name: BNP; Complete Time: 07:50 [facility] 05/07 05:07 Order name: D-Dimer; Complete Time: 07:50 [facility] 05/07 05:07 Order name: Urinalysis w/ reflexes; Complete Time: 07:20 [facility] 05/07 10:23 Order name: CBC Smear Scan [facility] 05/07 10:25 Order name: Glucose, Ancillary Testing [facility] 05/07 10:58 Order name: Glucose, Ancillary Testing [facility] 05/07 03:23 Order name: Chest Single View XRAY [facility] 05/07 08:22 Order name: Chest For Pe Angio [facility] 05/07 03:23 Order name: EKG; Complete Time: 03:24 [facility] 05/07 03:23 Order name: EKG - Nurse/Tech; Complete Time: 06:51 [facility] Administered Medications: 05:47 Drug: NS 0.9% IV 500 ml IV at bolus once Route: IV; Rate: bolus; Site: left hand; vc1 07:00 Follow up: Response: No adverse reaction; IV Status: Completed infusion; IV Intake: kc6 500ml 05:47 Drug: Aspirin PO Chewable Tablet 162 mg PO once Route: PO; vc1 06:56 Follow up: Response: No adverse reaction lg3 07:35 Drug: Metoprolol PO 50 mg PO once Route: PO; kc6 07:58 Follow up: Response: No adverse reaction; Blood pressure is lowered kc6 07:35 Drug: Enoxaparin Sub-Q 60 mg Sub-Q once Route: Sub-Q; Site: abdomen; kc6 07:58 Follow up: Response: No adverse reaction kc6 07:51 Drug: Famotidine IVP 20 mg IVP once; dilute with 10 mL 0.9% NaCl; give over 2 minutes kc6 Route: IVP; Site: right forearm; 07:58 Follow up: Response: No adverse reaction kc6 07:51 Drug: Rocephin IV 1 grams IV at per protocol once; Given slow IV push per pharmacy kc6 instructions Route: IV; Rate: per protocol; Site: right forearm; 07:58 Follow up: Response: No adverse reaction; IV Status: Completed infusion; IV Intake: [id number] Disposition Summary: 05/07/23 06:35 Hospitalization Ordered Notes: Hospitalization Status: Observation [facility] Provider: Jamison Farfan cha Location: Telemetry/MedSurg (observation) savage Condition: Stable savage Problem: new savage Symptoms: have improved savage Bed/Room Type: Standard savage Room Assignment: 214(05/07/23 11:24) eb Diagnosis - Chronic atrial fibrillation savage - Chest pain, unspecified savage - Type 2 diabetes mellitus with hyperglycemia savage Forms: - Medication Reconciliation Form savage - SBAR form savage - Leadership Thank You Letter savage Signatures: Dispatcher [employer] EDElias Wilder MD MD cha Botello, Elizabeth eb Calcote, Vanessa RN RN vc1 Dot Webster RN RN kc6 Krista Dc NP COILED [employer] OPERATOR [facility] Paulina Owen RN lg3 Corrections: (The following items were deleted from the chart) 11:24 06:35 savage eb
[2023-05-07 06:41] LABS: Specific Gravity 1.005 (1.005-1.030); Urine Bacteria <20 /HPF (<20); Urine Bilirubin NEGATIVE (Negative); Urine Blood Negative (Negative); Urine Clarity Turbid (Clear); Urine Color Colorless (Yellow); Urine Glucose NEGATIVE (Negative); Urine Protein NEGATIVE (Negative); Urine RBC <5 /HPF (None Seen); Urine Urobilinogen Normal (Normal)
[2023-05-07 07:42] LABS: Albumin 3.4 g/dL (3.4-5.0); Bilirubin Total 0.4 mg/dL (0.2-1.0); Potassium 3.4 mEq/L (3.5-5.1); Protein, Total 6.8 g/dL (6.4-8.2)
[2023-05-07 07:56] LABS: Absolute Lymphocytes (CBC) 1.3 K/uL (0.7-4.9); Hematocrit 31.2 % (36.0-45.0); Lymphocytes % 26.7 % (15.3-44.8); MCV 81.6 fL (80-100); MPV 7.1 fL (7.6-11.3); Platelets 273 thou/uL (152-406); RBC Red Blood Cell Count 3.83 M/uL (3.86-4.86)
--- NOTE | 2023-05-07 08:26 | P.HP ---
Certification for Inpatient Patient admitted to: Observation With expected LOS: >2 Midnights Patient will require the following post-hospital care: None Practitioner: I am a practitioner with admitting privileges, knowledge of patient current condition, hospital course, and medical plan of care. Services: Services provided to patient in accordance with Admission requirements found in Title 42 Section 412.3 of the Code of Federal Regulations Patient History Date of Service: 05/07/23 Reason for admission: Chest pain r/o History of Present Illness: Reina hernandez is a 67 year old female with Pmhx of Arthritis, diabetes mellitus- NIDDM, Hypertensive disorder, Myocardial infarction (stents x3), TIA x4 who presents to the ED with cheif complaint of chest pain onset at 10 p, Saturday 05/06. She reports the pain as "pressure and someone sitting on her chest". She denies shortness of breath and reports medication non compliance d/t running out of her medications and hasn't picked them up yet. She has been off her blood thinner for 3 months. She has had frequent ER visits and admissions. Was recently discharged 04/23. Her recent ECHO on 04/20/23 reports "EF 48%, trace mitral and tricuspid regurgitation, and Normal left ventricular systolic and diastolic function. Recent rest stress testing on 04/22/23 reports No evidence of stress-induced myocardial ischemia. A large fixed defects involving the apex, inferior wall, and segments of the adjacent lateral wall, suggestive of sequelae of prior infarct. Left ventricular ejection fraction is within normal limits, 60%. Hypokinesia noted at the apex." Initial vitals: BP 136 / 61; Pulse 91; Resp 18; Temp 98.7; Pulse Ox 100% ; Weight 90.72 kg; Significant Laboratory evaluation H/H 01/11, na 133, potassium 3.4, serum glucose 98, BNP 4379, Ddimer 1592, Trop 16, Chest xray reports " No acute findings in the chest" Reina will be admitted to hospitalist service for further evaluation and treatment of Chest pain r/o [place] with Elevated D dimer. Allergies nifedipine [From Procardia] Allergy (Mild, Verified 04/04/23 16:05) Hives/Rash insulin regular Allergy (Verified 03/02/23 20:52) Nausea/Vomiting Home Medications: Acetaminophen [Tylenol] 650 mg PO Q4HP PRN 03/02/23 Albuterol Neb [Proventil 0.083% Neb Soln] 2.5 mg NEB [id number] PRN #120 amp Ciprofloxacin HCl [Cipro] 500 mg PO BID #10 tab 04/06/23 Clopidogrel Bisulfate [Plavix*] 75 mg PO DAILY 30 Days #30 tab 04/06/23 Codeine/APAP [Tylenol #3*] 1 tab PO Q4H PRN #20 tab 04/06/23 Docusate [Colace Cap*] 200 mg PO DAILY #30 cap 04/06/23 Ferrous Sulfate [Ferrous Sulfate*] 325 mg PO DAILY #30 tab 04/06/23 Lidocaine [Dermacinrx Lidocan] 1 each TP DAILY 30 Days #30 patch 04/06/23 Metoprolol Tartrate [Lopressor*] 25 mg PO BID 6AM 6PM #60 tab 04/06/23 Multivitamin with Minerals [Multivitamins with Minerals] 1 each PO DAILY #30 tab 04/06/23 Omeprazole 20 mg PO DAILY #30 tab 04/06/23 Polyethylene Glycol 3350 [Miralax] 17 gm PO DAILYPRN PRN #30 packet 04/06/23 Sodium Chloride Tab [Sodium Chloride*] 1 gm PO TID #90 tab 04/06/23 Furosemide [Lasix] 20 mg PO DAILY 30 Days #30 tab 04/23/23 Potassium Oral Tab [Klor-Con 10 mEq Tab*] 10 meq PO DAILY 30 Days #30 tab 04/23/23 - Past Medical/Surgical History Diabetic: Yes -: Gastritis / Esophagitis -: DM II -: CAD s/p PCI -: h/o alcohol abuse, with ?liver cirrhosis -: chronic intermittent diarrhea -: CVA vs TIA -: COPD (mild) -: Chronic hyponatremia -: W[place] -: HTN -: s/p PCI (~2019) -: cholecystectomy -: Appendectomy -: Lap-Band surgery -: EGD/C-scope (early 2022) -: hip fracture Psychosocial/ Personal History: lives with daughter, recently moved to area - Family History Father -: Heart disease, Hypertension Mother -: Heart disease, Hypertension, Diabetes - Social History Smoking Status: Current every day smoker (1/4 pakc daily) Alcohol use: No CD- Drugs: No Caffeine use: Yes Review of Systems Cardiovascular: Chest Pain Physical Examination - Physical Exam General: Alert, In no apparent distress, Oriented x3 HEENT: Atraumatic, Normocephalic, PERRLA Neck: Supple, 2+ carotid pulse no bruit Respiratory: Clear to auscultation bilaterally, Normal air movement Cardiovascular: No edema, Normal pulses, Regular rate/rhythm, Normal S1 S2 Capillary refill: <2 Seconds Gastrointestinal: Normal bowel sounds, Soft and benign, No tenderness Musculoskeletal: No clubbing, No swelling, No contractures Integumentary: No rashes, No breakdown, No significant lesion Neurological: Normal speech, Normal strength at 5/5 x4 extr - Studies Laboratory Data (last 24 hrs) 05/07/23 05/07/23 07:47 07:10 WBC 4.90 Hgb 10.1 L Hct 31.2 L Plt Count 273 Sodium 133 L Potassium 3.4 L BUN 12 Creatinine 0.73 Glucose 98 Total Bilirubin 0.4 AST 12 L ALT 17 Alkaline Phosphatase 131 H Assessment and Plan - Plan Assessment and Plan Chest pain r/o [place] Chronic Afib non compliant with medications Elevated D dimer -D dimer 1592 -Troponin 16, 13.9 -BNP 4379 -CT chest Pulmonary arteries are normal. No emboli or other suspicious finding. No acute or significant aorta findings. No mass or infiltrate in the lung parenchyma. No pleural thickening or pleural effusion. No pneumothorax. Stable mild cardiomegaly. Dense atherosclerotic carotid calcifications. No abnormal mediastinal or hilar masses or lymphadenopathy seen. No chest wall mass or abnormal axilliary lymphadenopathy. Sequelae of gastric bypass. -Echo ordered -Off blood thinner for 3 months -Aspirin given in the ED -ASA, Statin, Plavix, Lasix daily -lovenox therapeutic -cardiology consult-Recommend therapeutic lovenox Diabetes mellitus NIDDM Accu-Chek with sliding scale Serum glucose 98 hyponatremia hypokalemia monitor in a.m. labs replace PRN HX COPD Hx HTN Hx HLD Hx CVA Home oxygen will be delivered Restart home medication Diabetes Mellitus- NIDDM Glucophage- non compliant DVT ppx therapeutic lovenox DNR LOS 2-3 days Discharge Plan: Home Plan to discharge in: 48 Hours - Advance Directives Does patient have a Living Will: No Does patient have a Durable POA for Healthcare: Yes Time Spent Managing Pts Care (In Minutes): 50
[2023-05-07] MEDS ORDERED: NITROGLYCERIN 0.4 MG/TAB SL PRN (08:43)
[2023-05-07] MEDS ORDERED: D50W 25 GM/50 ML SYRINGE IV PRN (09:00)
[2023-05-07] MEDS ORDERED: GLUCAGON 1 MG/VIAL IM PRN (09:00)
[2023-05-07] MEDS: ASPIRIN EC 81 MG TAB PO SCH (09:00)
[2023-05-07 09:08] VITALS: BMI 24.5
--- NOTE | 2023-05-07 09:35 | RAD REPORT ---
EXAM DESCRIPTION: CT - Chest For Pe Angio - 05/07/2023 8:53 am CLINICAL HISTORY: elevated d dimer COMPARISON: Chest For Pe Angio dated 03/06/2023; Chest For Pe Angio dated 12/06/2022; Chest Abd Pelvi s Wo Con dated 11/26/2022; Chest Single View dated 05/04/2023 TECHNIQUE: Thin axial CT images of the chest were obtained following administration of 100 mL Isovue 370 IV contrast. Multiplanar reconstructions, and maximum intensity projection reconstructions were generated and reviewed. Exam utilizes a protocol for optimal evaluation of pulmonary arterial tree. All CT scans are performed using dose optimization technique as appropriate and may include automated exposure control or mA/KV adjustment according to patient size. FINDINGS: Pulmonary arteries are normal. No emboli or other suspicious finding. No acute or signific ant aorta findings. No mass or infiltrate in the lung parenchyma. No pleural thickening or pleural effusion. No pneumotho rax. Stable mild cardiomegaly. Dense atherosclerotic carotid calcifications. No abnormal mediastinal or hi lar masses or lymphadenopathy seen. No chest wall mass or abnormal axilliary lymphadenopathy. Sequelae of gastric bypass. IMPRESSION: No evidence of acute central pulmonary emboli. No other acute pulmonary process. .
[2023-05-07 10:22] LABS: Anisocytosis 1+; Blood Morphology Comment NOTED (NOT SEEN); Platelet Estimate ADEQ; White Blood Cell Scan OK (OK)
[2023-05-07] MEDS: INSULIN REGULAR (HUMAN) 100 UNIT/ML SQ SCH (10:47)
[2023-05-07 12:28] VITALS: O2SAT 100
--- NOTE | 2023-05-07 12:36 | P.CNS ---
Date of Consult: 05/07/23 Chief Complaint: Chest pain r/o History of Present Illness: patient with PMH of CAD s/p recent PCI per patient few months ago at [facility], also history of Atrial fibrillation, medications non complaince as she says that she was discharged without any medications, presented with chest pain that started tuesday, pressure in nature, no radiation, no other associated symptoms. Allergies nifedipine [From Procardia] Allergy (Mild, Verified 04/04/23 16:05) Hives/Rash insulin regular Allergy (Verified 03/02/23 20:52) Nausea/Vomiting Home Medications: Acetaminophen [Tylenol] 650 mg PO Q4HP PRN 03/02/23 Albuterol Neb [Proventil 0.083% Neb Soln] 2.5 mg NEB [id number] PRN #120 amp 04/06/23 Ciprofloxacin HCl [Cipro] 500 mg PO BID #10 tab 04/06/23 Clopidogrel Bisulfate [Plavix*] 75 mg PO DAILY 30 Days #30 tab 04/06/23 Codeine/APAP [Tylenol #3*] 1 tab PO Q4H PRN #20 tab 04/06/23 Docusate [Colace Cap*] 200 mg PO DAILY #30 cap 04/06/23 Ferrous Sulfate [Ferrous Sulfate*] 325 mg PO DAILY #30 tab 04/06/23 Lidocaine [Dermacinrx Lidocan] 1 each TP DAILY 30 Days #30 patch 04/06/23 Metoprolol Tartrate [Lopressor*] 25 mg PO BID 6AM 6PM #60 tab 04/06/23 Multivitamin with Minerals [Multivitamins with Minerals] 1 each PO DAILY #30 tab 04/06/23 Omeprazole 20 mg PO DAILY #30 tab 04/06/23 Polyethylene Glycol 3350 [Miralax] 17 gm PO DAILYPRN PRN #30 packet 04/06/23 Sodium Chloride Tab [Sodium Chloride*] 1 gm PO TID #90 tab 04/06/23 Furosemide [Lasix] 20 mg PO DAILY 30 Days #30 tab 04/23/23 Potassium Oral Tab [Klor-Con 10 mEq Tab*] 10 meq PO DAILY 30 Days #30 tab 04/23/23 - Past Medical/Surgical History Diabetic: Yes -: Gastritis / Esophagitis -: DM II -: CAD s/p PCI -: h/o alcohol abuse, with ?liver cirrhosis -: chronic intermittent diarrhea -: CVA vs TIA -: COPD (mild) -: Chronic hyponatremia -: DC -: HTN -: s/p PCI (~2019) -: cholecystectomy -: Appendectomy -: Lap-Band surgery -: EGD/C-scope (early 2022) -: hip fracture Psychosocial/ Personal History: lives with daughter, recently moved to area - Family History Father Medical History: Heart disease, Hypertension Mother Medical History: Heart disease, Hypertension, Diabetes - Social History Smoking Status: Current every day smoker Alcohol use: No CD- Drugs: No Caffeine use: Yes Place of Residence: [facility] Review of Systems 10-point ROS is otherwise unremarkable Physical Examination Temp Pulse Resp BP Pulse Ox 84 16 108/81 05/07/23 07:57 05/07/23 07:57 05/07/23 07:57 General: Alert, Oriented x3 HEENT: Atraumatic, Normocephalic Neck: Supple Respiratory: Clear to auscultation bilaterally Cardiovascular: No edema (irregular rate and rhythm) Gastrointestinal: Normal bowel sounds Laboratory Data (last 24 hrs) 05/07/23 05/07/23 07:47 07:10 WBC 4.90 Hgb 10.1 L Hct 31.2 L Plt Count 273 Sodium 133 L Potassium 3.4 L BUN 12 Creatinine 0.73 Glucose 98 Total Bilirubin 0.4 AST 12 L ALT 17 Alkaline Phosphatase 131 H - Problems (1) CAD (coronary artery disease), [place] coronary artery Current Visit: Yes Status: Acute Plan: per patient she had recent stents placement and has not been complaint with her DAPT. Continue to trend cardiac enzymes x3 sets, 8 hours apart. Continue ASA 81 mg daily Continue Plavix 75 mg daily please start patient on Lipitor 40 mg daily please get echo and we will consider doing a coronary angiogram vs stress test depending on troponin trends. (2) Atrial fibrillation Current Visit: No Status: Acute Plan: patient is rate controlled AF Continue Lopressor 25 mg po BID Please Start therapeutic lovenox until we decide about stress test ve coronary angiogram and also figure out patient financial situation for her ability to pay for NOAC. Qualifiers: Atrial fibrillation type: paroxysmal Qualified Code(s): I48.0 - Paroxysmal atrial fibrillation
[2023-05-07] MEDS: METOPROLOL TAR 25 MG TAB PO SCH (18:17)
--- NOTE | 2023-05-07 20:10 | RAD REPORT ---
EXAM DESCRIPTION: RAD - Chest Single View - 05/07/2023 4:10 am CLINICAL HISTORY: The patient is 67 years old and is Female; CHEST PAIN TECHNIQUE: Frontal view of the chest. COMPARISON: No relevant prior studies available. FINDINGS: Lungs: Unremarkable. No consolidation. Pleural space: Unremarkable. No pneumothorax. Heart: Unremarkable. Mediastinum: Unremarkable. Normal mediastinal contour. Bones/joints: No acute findings. IMPRESSION: No acute findings in the chest. Electronically signed by: Adalberto Tavarez MD 05/07/2023 04:42 AM DRY MOLDER Due to temporary technical issues with the PACS/Fluency reporting system, reports are being signed by the in house radiologists without review as a courtesy to insure prompt reporting. The interpreting radiologist is fully responsible for the content of the report.
[2023-05-07] MEDS: MELATONIN 5 MG TABLET PO PRN (22:41)
[2023-05-08 04:30] LABS: Absolute Lymphocytes (CBC) 1.2 K/uL (0.7-4.9); Hematocrit 26.2 % (36.0-45.0); Lymphocytes % 24.3 % (15.3-44.8); MPV 7.4 fL (7.6-11.3); Platelets 274 thou/uL (152-406); RBC Red Blood Cell Count 3.24 M/uL (3.86-4.86)
[2023-05-08 04:48] LABS: Potassium 4.1 mEq/L (3.5-5.1)
--- NOTE | 2023-05-08 09:21 | P.PN ---
Subjective Date of Service: 05/08/23 Chief Complaint: Chest pain r/o Subjective: No new changes Review of Systems 10-point ROS is otherwise unremarkable Physical Examination - Vital Signs Temperature: 98.4 F Blood Pressure: 112/71 Pulse: 77 Respirations: 19 Pulse Ox (%): 100 - Physical Exam General: Alert, Oriented x3 HEENT: Atraumatic Neck: Supple Respiratory: Clear to auscultation bilaterally Cardiovascular: No edema Gastrointestinal: Normal bowel sounds - Studies Laboratory Data (last 24 hrs) 05/07/23 07:47 WBC 4.90 Hgb 10.1 L Hct 31.2 L Plt Count 273 Assessment And Plan - Current Problems (Diagnosis) (1) CAD (coronary artery disease), [place] coronary artery Current Visit: Yes Status: Acute Plan: per patient she had recent stents placement and has not been complaint with her DAPT. 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 Qualifiers: Atrial fibrillation type: paroxysmal Qualified Code(s): I48.0 - Paroxysmal atrial fibrillation
[2023-05-08] MEDS: CLOPIDOGREL 75 MG TABLET PO SCH (09:27)
[2023-05-08] MEDS: FUROSEMIDE 40 MG/4 ML VIAL IV ONE (09:27)
[2023-05-08] MEDS: ENOXAPARIN 40 MG/0.4 ML SQ SCH (09:27)
[2023-05-08] MEDS: FUROSEMIDE 20 MG TABLET PO SCH (09:27)
[2023-05-08] MEDS ORDERED: POLYETHYL GLY 3350 17 GM/DOSE PO PRN (11:51)
[2023-05-08] MEDS ORDERED: ALBUTEROL 2.5 MG/3 ML NEB SOL NEB PRN (12:02)
[2023-05-08] MEDS: HYDROCODONE/APAP 5/325 MG TAB PO PRN (12:28)
[2023-05-08] MEDS: IPRATROPIUM BROM 0.5MG/2.5ML NEB SCH (13:00)
--- NOTE | 2023-05-08 16:17 | P.PN ---
Date of Service: 05/08/23 Subjective Awake and ambulating independently And tolerating p.o. diet, on room air will be NPO at midnight for stress test in the AM ROS 10 point ROS as noted above, otherwise negative Physical ExamPhysical Exam General: Alert and oriented x 3, NAD, calm HEENT: Atraumatic, Normocephalic, PERRLA Neck: Supple, 2+ carotid pulse no bruit Respiratory: Clear to auscultation bilaterally, Normal air movement Cardiovascular: No edema, Normal pulses, RRR, Normal S1 S2, no murmur noted Capillary refill: <2 Seconds Gastrointestinal: Normal bowel sounds, Soft and benign, No tenderness Musculoskeletal: No clubbing, No swelling, No contractures, 2+ peripheral pulses Integumentary: No rashes, No breakdown, No significant lesion Neurological: Normal speech, Normal strength at 5/5 x4 extr Vitals Reviewed Problem list Chest pain r/o VA Chronic Afib non compliant with medications Elevated D dimer Diabetes mellitus NIDDM hyponatremia hypokalemia Diabetes Mellitus- NIDDM Assessment and Plan Chest pain r/o VA Chronic Afib non compliant with medications Elevated D dimer -D dimer 1592 -Troponin ./ -BNP 4379 -CT chest Pulmonary arteries are normal. No emboli or other suspicious finding. No acute or significant aorta findings. No mass or infiltrate in the lung parenchyma. No pleural thickening or pleural effusion. No pneumothorax. Stable mild cardiomegaly. Dense atherosclerotic carotid calcifications. No abnormal mediastinal or hilar masses or lymphadenopathy seen. No chest wall mass or abnormal axilliary lymphadenopathy. Sequelae of gastric bypass. -Echo ordered -Off blood thinner for 3 months -Aspirin given in the ED -ASA, Statin, Plavix daily -lovenox therapeutic -cardiology consult-Recommend therapeutic lovenox, Stress test in the AM, NPO at midnight Diabetes mellitus NIDDM -Accu-Chek with sliding scale -Serum glucose 73 hyponatremia hypokalemia -monitor in a.m. labs -replace PRN HX COPD Hx HTN Hx HLD Hx CVA -Home oxygen will be delivered per patient -Continue home medication Diabetes Mellitus- NIDDM Glucophage- non compliant Accu-Check with sliding scale insulin DVT ppx therapeutic lovenox DNR LOS 2-3 days
[2023-05-08] MEDS: ENOXAPARIN 60 MG/0.6 ML SQ SCH (19:50)
[2023-05-08] MEDS ORDERED: ENOXAPARIN 60 MG/0.6 ML SQ SCH (21:00)
[2023-05-08] MEDS: ACETAMINOPHEN 500 MG TAB PO PRN (21:34)
[2023-05-08] MEDS: TRAZODONE 50 MG TABLET PO SCH (21:34)
[2023-05-09] MEDS: FERROUS SULFATE 325 MG TAB PO SCH (08:57)
[2023-05-09] MEDS: PANTOPRAZOLE 40MG TABLET PO SCH (08:58)
[2023-05-09 10:24] VITALS: TEMP 98
--- NOTE | 2023-05-09 12:06 | P.DS ---
Admission Date: 05/07/23 Discharge Date: 05/09/23 Disposition: ROUTINE DISCHARGE Discharge Condition: GOOD Reason for Admission: Chest pain r/o Brief History of Present Illness: Diagnosis Chest pain r/o NC Chronic Afib non compliant with medications Elevated D dimer Diabetes mellitus NIDDM hyponatremia hypokalemia HPI 05/07/23 Reina hartley is a 67 year old female with Pmhx of Arthritis, diabetes mellitus-N IDDM, Hypertensive disorder, Myocardial infarction (stents x3), TIA x4 who presents to the ED with cheif complaint of chest pain onset at 10 p, Saturday 05/06. She reports the pain as "pressure and someone sitting on her chest". She denies shortness of breath and reports medication non compliance d/t running out of her medications and hasn't picked them up yet. She has been off her blood thinner for 3 months. She has had frequent ER visits and admissions. Was recently discharged 04/23. Her recent ECHO on 04/20/23 reports "EF 48%, trace mitral and tricuspid regurgitation, and Normal left ventricular systolic and diastolic function. Recent rest stress testing on 04/22/23 reports No evidence of stress-induced myocardial ischemia. A large fixed defects involving the apex, inferior wall, and segments of the adjacent lateral wall, suggestive of sequelae of prior infarct. Left ventricular ejection fraction is within normal limits, 60%. Hypokinesia noted at the apex." Initial vitals: BP 136 / 61; Pulse 91; Resp 18; Temp 98.7; Pulse Ox 100% ; Weight 90.72 kg; Significant Laboratory evaluation H/H 01/11, na 133, potassium 3.4, serum glucose 98, BNP 4379, Ddimer 1592, Trop 16, Chest xray reports " No acute findings in the chest" Reina will be admitted to hospitalist service for further evaluation and treatment of Chest pain r/o NC with Elevated D dimer. Hospital Course: Neisha Hartley is a pleasant 67 year old female with a past medical history significant for Arthritis, diabetes mellitus-NIDDM, Hypertensive disorder, Myocardial infarction (stents x3), TIA x4 who was admitted to the [facility] on 05/07/23 for Chest pain. Reina Hartley presented to the ED with complaints of chest pain and pressure. Dr. Mccullough was consulted and reviewed the stress tests performed earlier this month. He has deemed her ready for discharge with a follow up in one week. She has tolerated therapeutic Lovenox, chest pain has improved, she is ambulating indepe ndently, tolerating p.o. diet, afebrile, troponins negative, and hemodynamically stable. On 05/09/23, Reina was seen on morning rounds and deemed medically stable for discharge. Reina was discharged with instructions to schedule follow-up appointments with PCP and Dr. Mccullough. Reina was provided prescriptions for Eliquis and Aspirin. The patient was given the opportunity to ask questions and reported no further questions. Furthermore, all questions were answered to the best of my ability. A copy of this discharge summary will be sent to the above providers to facilitate continuity of care. Today, I personally spent 50 minutes with Reina, of which greater than 50% of the time was spent in patient education, counseling, and coordination of care as described above. Physical Exam General: AAOx 3, NAD, calm HEENT: Atraumatic, Normocephalic, PERRLA Neck: Supple, 2+ carotid pulse no bruit Respiratory: Clear to auscultation bilaterally, Normal air movement Cardiovascular: Normal pulses, RRR, S1 S2 present, no murmur noted Capillary refill: <2 Seconds Gastrointestinal: Normoactive bowel sounds, Soft and benign, No tenderness, distended (obese) Musculoskeletal: No clubbing, No swelling, No contractures, 2+ peripheral pulses Integumentary: No rashes, No breakdown, No significant lesion Neurological: Normal speech, Normal strength at 5/5 x4 extr Vital Signs/Physical Exam: Temp Pulse Resp BP Pulse Ox 98.0 F 101 H 17 156/89 H 93 05/09/23 08:00 05/09/23 08:00 05/09/23 08:00 05/09/23 08:00 05/09/23 08:00 Laboratory Data at Discharge: WBC 4.90 thou/uL (4.3-10.9) 05/08/23 03:37 Hgb 8.6 g/dL (12.0-15.0) L D 05/08/23 03:37 Hct 26.2 % (36.0-45.0) L 05/08/23 03:37 Plt Count 274 thou/uL (152-406) 05/08/23 03:37 Sodium 132 mEq/L (136-145) L 05/08/23 03:37 Potassium 4.1 mEq/L (3.5-5.1) D 05/08/23 03:37 BUN 14 mg/dL (7-18) 05/08/23 03:37 Creatinine 0.67 mg/dL (0.55-1.02) 05/08/23 03:37 Glucose 73 mg/dL (74-106) L 05/08/23 03:37 Total Bilirubin 0.4 mg/dL (0.2-1.0) 05/07/23 07:10 AST 12 U/L (15-37) L 05/07/23 07:10 ALT 17 U/L (13-56) 05/07/23 07:10 Alkaline Phosphatase 131 U/L (45-117) H 05/07/23 07:10 Triglycerides 58 mg/dL (<150) 05/08/23 03:37 Cholesterol 118 mg/dL (<200) 05/08/23 03:37 HDL Cholesterol 64 mg/dL (40-60) H 05/08/23 03:37 Cholesterol/HDL Ratio 1.84 05/08/23 03:37 Home Medications: Acetaminophen [Tylenol] 650 mg PO Q4HP PRN 03/02/23 Albuterol Neb [Proventil 0.083% Neb Soln] 2.5 mg NEB [id number] PRN #120 amp 04/06/23 Clopidogrel Bisulfate [Plavix*] 75 mg PO DAILY 30 Days #30 tab 04/06/23 Codeine/APAP [Tylenol #3*] 1 tab PO Q4H PRN #20 tab 04/06/23 Docusate [Colace Cap*] 200 mg PO DAILY #30 cap 04/06/23 Ferrous Sulfate [Ferrous Sulfate*] 325 mg PO DAILY #30 tab 04/06/23 Lidocaine [Dermacinrx Lidocan] 1 each TP DAILY 30 Days #30 patch 04/06/23 Metoprolol Tartrate [Lopressor*] 25 mg PO BID 6AM 6PM #60 tab 04/06/23 Multivitamin with Minerals [Multivitamins with Minerals] 1 each PO DAILY #30 tab 04/06/23 Omeprazole 20 mg PO DAILY #30 tab 04/06/23 Polyethylene Glycol 3350 [Miralax] 17 gm PO DAILYPRN PRN #30 packet 04/06/23 Sodium Chloride Tab [Sodium Chloride*] 1 gm PO TID #90 tab 04/06/23 Furosemide [Lasix*] 20 mg PO DAILY 30 Days #30 tab 04/23/23 Potassium Oral Tab [Klor-Con 10 mEq Tab*] 10 meq PO DAILY 30 Days #30 tab 04/23/23 Apixaban [Eliquis] 2.5 mg PO BID 30 Days #60 tablet 05/09/23 Aspirin [Aspirin EC 81 MG] 81 mg PO DAILY 30 Days #30 tab 05/09/23 New Medications: Aspirin [Aspirin EC 81 MG] 81 mg PO DAILY 30 Days #30 tab Apixaban [Eliquis] 2.5 mg PO BID 30 Days #60 tablet Physician Discharge Instructions: Reina Hartley presented to the ED with complaints of chest pain and pressure. Dr. Mccullough was consulted and review the stress tests performed earlier this month. He has deemed her ready for discharge with a follow up in one week. She has tolerated therapeutic Lovenox, chest pain has improved, she is ambulating independently, tolerating p.o. diet, afebrile, hemodynamically stable. 1. Follow-up with PCP for continued medication management in 2-3 days 2. Follow-up with Dr. Velez for continued cardiac management in one week -New medications called to your pharmacy: Eliquis and aspirin 3. Continue heart healthy/diabetic diet 4. No activity restrictions 5. Return to ED if symptoms worsen New medications Eliquis 2.5 mg p.o. twice a day Aspirin 81 mg p.o. daily Diet: AHA Activity: Ad freddy Followup: Stephon Mccullough MD [ACTIVE - CAN ADMIT] - NONE,NONE [Primary Care Provider] - Time spent managing pt's care (in minutes): 50
[2023-05-09] MEDS: LABETALOL 20 MG/4ML SYRINGE IV ONE (12:18)
[2023-05-09] MEDS: METOPROLOL TAR 25 MG TAB PO ONE (13:13)
[2023-05-09 14:32] VITALS: BP 184/76
--- NOTE | 2023-05-09 14:34 | EKG ---
Test Date: 2023-05-07 Test Time: 05:57:41 Social Media Community Manager: YESICA MEASUREMENT RESULTS: Intervals: Rate: 99 NM: QRSD: 88 QT: 358 QTc: 459 Woody: P: NM: QRS: 37 T: 72 INTERPRETIVE STATEMENTS: Atrial fibrillation Septal infarct, age undetermined Abnormal ECG Compared to ECG 04/19/2023 18:10:25 Myocardial infarct finding now present ST (T wave) deviation no longer present Possible ischemia no longer present Electronically Signed On 05-09-23 14:28:42 DOUGHNUT GLAZIER by David Irby
== END 2023-05-09 14:22 | disposition home or self-care (01) ==
LOC: ER 03:15 → ERHOLD 08:17 → 2ND 11:35
PROVIDERS: ADMIT Internal Medicine; ATTEND Internal Medicine
DX: R07.9 Chest pain, unspecified (principal); I48.11 Longstanding persistent atrial fibrillation; I25.10 Atherosclerotic heart disease of native coronary artery without angina pectoris; E11.65 Type 2 diabetes mellitus with hyperglycemia; I10 Essential (primary) hypertension; M19.90 Unspecified osteoarthritis, unspecified site; I25.2 Old myocardial infarction; E87.1 Hypo-osmolality and hyponatremia; E87.6 Hypokalemia; J44.9 Chronic obstructive pulmonary disease, unspecified; R79.89 Other specified abnormal findings of blood chemistry; Z88.8 Allergy status to other drugs, medicaments and biological substances; Z79.01 Long term (current) use of anticoagulants; Z91.148 Patient's other noncompliance with medication regimen for other reason; Z86.73 Personal history of transient ischemic attack (TIA), and cerebral infarction without residual deficits
CPT/HCPCS: 96361; 93005; 85025 ×2; 81001; 80048; 36415 ×2; 80061; 82947 ×9; 85379; 84484 ×4; 80053; 83880; 71275; 71045; 94640; 96375; 96372; 96374; 99285; Q9967; J1650 ×3; J1940; J7644 ×4; G0378 ×6; J7040

== ENCOUNTER 2023-05-10 14:44 | Observation (INO) | payer OTHER ==
[2023-05-10] MEDS ORDERED: dilTIAZem HCL 25 MG/5 ML VIAL IV ONE (15:28)
[2023-05-10 15:35] LABS: Hematocrit 30.4 % (36.0-45.0); Lymphocytes % 13.7 % (15.3-44.8); MCV 80.8 fL (80-100); MPV 7.4 fL (7.6-11.3); Platelets 314 thou/uL (152-406); RBC Red Blood Cell Count 3.76 M/uL (3.86-4.86)
[2023-05-10] MEDS ORDERED: ASPIRIN 325 MG TAB ONE (15:47)
[2023-05-10] MEDS ORDERED: METOPROLOL TARTRATE 5 MG/5 ML INJ IV ONE (15:47)
[2023-05-10 15:53] LABS: Albumin 3.7 g/dL (3.4-5.0); Bilirubin Direct 0.2 mg/dL (0-0.2); Bilirubin Indirect, Calculated 0.3 mg/dL (0.2-0.8); Bilirubin Total 0.5 mg/dL (0.2-1.0); Potassium 3.2 mEq/L (3.5-5.1); Protein, Total 7.3 g/dL (6.4-8.2)
--- NOTE | 2023-05-10 16:00 | EDPHYS ---
Physician Documentation [facility] Name: Reina Hartley Age: 67 yrs Sex: Female : 1955 Arrival Date: 05/10/2023 Time: 14:44 Bed 16 Private MD: ED Physician Yumi Holder HPI: 05/10 15:20 This 67 yrs old Female presents to ER via EMS with complaints of Shortness Of Breath. sp3 15:20 67-year-old female with history of diabetes, hypertension, prior NH presents with chest sp3 pain, shortness of breath and palpitations for several days. Patient was recently hospitalized but does not have any medications due to not being able to afford them. She denies headache, fever, cough, abdominal pain, vomiting or diarrhea, syncope, or any other signs or symptoms on ROS at this time.. Historical: - Allergies: 15:08 all depression medications; iw 15:08 Procardia; iw - PMHx: 15:08 diabetes mellitus; Arthritis; Hypertensive disorder; Myocardial infarction; iw - PSHx: 15:08 Appendectomy; breast augmentation; cardiac stent; Cholecystectomy; Gastric Bypass; iw hysterectomy; Left hip; - Immunization history:: Adult Immunizations unknown. - Social history:: Smoking status: unknown. ROS: 15:21 Constitutional: Negative for fever, chills, and weight loss, Eyes: Negative for injury, sp3 pain, redness, and discharge, Neck: Negative for injury, pain, and swelling, Abdomen/GI: Negative for abdominal pain, nausea, vomiting, diarrhea, and constipation, Back: Negative for injury and pain, MS/Extremity: Negative for injury and deformity, Skin: Negative for injury, rash, and discoloration, Neuro: Negative for headache, weakness, numbness, tingling, and seizure, Psych: Negative for depression, anxiety, suicide ideation, homicidal ideation, and hallucinations, Allergy/Immunology: Negative for hives, rash, and allergies, Endocrine: Negative for neck swelling, polydipsia, polyuria, polyphagia, and marked weight changes, 15:21 All other systems are negative, Exam: 15:21 Constitutional: This is a well developed, well nourished patient who is awake, alert, sp3 and in no acute distress. Head/Face: Normocephalic, atraumatic. Eyes: Pupils equal round and reactive to light, extra-ocular motions intact. Lids and lashes normal. Conjunctiva and sclera are non-icteric and not injected. Cornea within normal limits. Periorbital areas with no swelling, redness, or edema. Neck: Trachea midline, no thyromegaly or masses palpated, and no cervical lymphadenopathy. Supple, full range of motion without nuchal rigidity, or vertebral point tenderness. No Meningismus. Chest/axilla: Normal chest wall appearance and motion. Nontender with no deformity. No lesions are appreciated. Respiratory: Lungs have equal breath sounds bilaterally, clear to auscultation and percussion. No rales, rhonchi or wheezes noted. No increased work of breathing, no retractions or nasal flaring. Back: No spinal tenderness. No costovertebral tenderness. Full range of motion. Skin: Warm, dry with normal turgor. Normal color with no rashes, no lesions, and no evidence of cellulitis. MS/ Extremity: Pulses equal, no cyanosis. Neurovascular intact. Full, normal range of motion. Neuro: Awake and alert, GCS 15, oriented to person, place, time, and situation. Cranial nerves II-XII grossly intact. Motor strength 5/5 in all extremities. Sensory grossly intact. Cerebellar exam normal. Normal gait. Psych: Awake, alert, with orientation to person, place and time. Behavior, mood, and affect are within normal limits. 15:21 Cardiovascular: A-fib RVR at 120, 15:21 ECG was reviewed by the Attending Physician. EKG demonstrates atrial fibrillation with rapid ventricular response with capture rate at 120 bpm with normal intervals except with a MS, normal axis, nonspecific diffuse ST's ST changes without evidence of acute ischemia. Vital Signs: 15:04 BP 165 / 93; Pulse 110; Resp 19; Pulse Ox 99% on R/A; iw 15:08 Temp 98.7(O); nj1 15:31 BP 150 / 91; Pulse 118; Resp 24; Pulse Ox 95% on R/A; nj1 15:54 BP 149 / 84; Pulse 105; Resp 17; Pulse Ox 99% on R/A; nj1 16:33 Pulse 78; Resp 18; Pulse Ox 97% ; nj1 17:00 BP 113 / 75; Pulse 91; Resp 20; Pulse Ox 98% ; nj1 19:30 BP 142 / 79; Pulse 96; Resp 17 S; Pulse Ox 100% on R/A; jw7 MDM: 14:52 Patient medically screened. sp3 15:22 Data reviewed: vital signs, nurses notes, EMS record, old medical records, lab test sp3 result(s), EKG, radiologic studies. ED course: . 15:22 ED course: 67-year-old female with A-fib RVR none rate controlled with new chest pain. sp3 Will treat with Cardizem as needed for rate control. Patient will need serial troponins and 23-hour Anton. I am not highly suspicious for PE, TAD or infectious process at this time.. 05/10 14:53 Order name: Troponin High Sensitivity; Complete Time: 15:58 05/10 15:04 Order name: Basic Metabolic Panel; Complete Time: 15:58 05/10 15:04 Order name: CBC with Diff; Complete Time: 15:47 05/10 15:04 Order name: LFT's; Complete Time: 15:58 05/10 15:04 Order name: NT PRO-BNP; Complete Time: 15:58 05/10 15:31 Order name: Magnesium; Complete Time: 15:58 la1 05/10 15:04 Order name: XRAY Chest (1 view); Complete Time: 16:25 05/10 14:53 Order name: EKG; Complete Time: 14:54 05/10 14:53 Order name: EKG - Nurse/Tech; Complete Time: 15:05 05/10 15:04 Order name: Cardiac monitoring; Complete Time: 15:31 05/10 15:04 Order name: IV Saline Lock; Complete Time: 15:31 05/10 15:04 Order name: Labs collected and sent; Complete Time: 15:31 05/10 15:04 Order name: O2 Per Protocol; Complete Time: 15:31 05/10 15:04 Order name: O2 Sat Monitoring; Complete Time: 15:31 Administered Medications: 15:32 Drug: Diltiazem IVP 10 mg IVP once; Over 2 minutes Route: IVP; Site: left antecubital; nj1 21:18 Follow up: Response: No adverse reaction; Marked relief of symptoms jw7 15:50 Drug: Aspirin PO 325 mg PO once Route: PO; nj1 21:18 Follow up: Response: No adverse reaction jw7 16:01 Drug: Metoprolol IVP 5 mg IVP once; Hold for SBP <100 or HR <60. Route: IVP; Site: left [facility] antecubital; 21:18 Follow up: Response: No adverse reaction; Marked relief of symptoms jw7 17:20 Drug: Furosemide IVP 40 mg IVP once; give over 2 minutes Route: IVP; Site: left [facility] antecubital; 21:18 Follow up: Response: No adverse reaction jw7 Disposition Summary: 05/10/23 16:00 Hospitalization Ordered Notes: Hospitalization Status: Observation sp3 Provider: Alvin Edwards sp3 Condition: Stable sp3 Problem: an acute exacerbation sp3 Symptoms: have worsened sp3 Bed/Room Type: Standard sp3 Location: Telemetry/MedSurg (observation)(05/10/23 21:12) jb4 Room Assignment: [facility](05/10/23 21:12) jb4 Diagnosis - Afib RVR, CHF, chest pain sp3 Forms: - Medication Reconciliation Form sp3 - SBAR form sp3 - Leadership Thank You Letter sp3 Signatures: Dispatcher [employer] EDMS Vijaya Baker Irene, RN RN iw Levi Sloan, RUDDY-C MACHINE BOBBIN WINDER-Cla1 Nigel Maria RN RN jb4 Yumi Holder MD MD sp3 Leigha Berrios RN RN nj1 Karrie Azevedo RN jw7 Corrections: (The following items were deleted from the chart) 15:09 15:08 PMHx: TIA (Myocardial infarcti); [facility] 16:59 16:00 Telemetry/MedSurg (observation) sp3 bd 16:59 16:00 sp3 bd 21:12 16:59 [facility] ER HOLD bd jb4 21:12 16:59 ERHOLD- bd jb4
--- NOTE | 2023-05-10 16:00 | ER ---
Nurse's Notes [facility] Name: Reina Hartley Age: 67 yrs Sex: Female : 1955 Arrival Date: 05/10/2023 Time: 14:44 Bed 16 Private MD: Diagnosis: Afib RVR, CHF, chest pain Presentation: 05/10 15:07 Chief complaint: Patient states: SOB , hx of atrial fibrillation, has not been able to iw get her medications. Coronavirus screen: At this time, the client does not indicate any symptoms associated with coronavirus-19. Ebola Screen: Patient negative for fever greater than or equal to 101.5 degrees Fahrenheit, and additional compatible Ebola Virus Disease symptoms Patient denies exposure to infectious person. Patient denies travel to an Ebola-affected area in the 21 days before illness onset. No symptoms or risks identified at this time. Initial Sepsis Screen: Does the patient meet any 2 criteria? HR > 90 bpm. Does the patient have a suspected source of infection? No. Patient's initial sepsis screen is negative. Risk Assessment: Do you want to hurt yourself or someone else? Patient reports no desire to harm self or others. Onset of symptoms was May 10, 2023. 15:07 Method Of Arrival: EMS: [facility] iw 15:07 Acuity: ANDREA 3 iw Historical: - Allergies: 15:08 all depression medications; iw 15:08 Procardia; iw - PMHx: 15:08 diabetes mellitus; Arthritis; Hypertensive disorder; Myocardial infarction; iw - PSHx: 15:08 Appendectomy; breast augmentation; cardiac stent; Cholecystectomy; Gastric Bypass; iw hysterectomy; Left hip; - Immunization history:: Adult Immunizations unknown. - Social history:: Smoking status: unknown. Screenin:20 [facility] ED Fall Risk Assessment (Adult) Score/Fall Risk Level 0 - 2 = Low Risk nj1 Oriented to surroundings, Maintained a safe environment, Hourly rounding (assess needs \T\ fall precautionary measures) done. Abuse screen: Denies threats or abuse. Denies injuries from another. 15:20 Nutritional screening: No deficits noted. Tuberculosis screening: No symptoms or risk nj1 factors identified. Assessment: 15:20 General: Appears in no apparent distress. comfortable, Behavior is calm, cooperative, nj1 appropriate for age. 15:20 Neuro: Level of Consciousness is awake, alert, obeys commands, Oriented to person, nj1 place, situation. Cardiovascular: Patient's skin is warm and dry. Rhythm is atrial fibrillation with rapid ventricular response. Respiratory: Reports shortness of breath Airway is patent Respiratory effort is even, unlabored. 17:20 Reassessment: Patient appears in no apparent distress at this time. Patient and/or nj1 family updated on plan of care and expected duration. Pain level reassessed. Patient is alert, oriented x 3, equal unlabored respirations, skin warm/dry/pink. 17:30 Reassessment: Pt not staying in bed or staying connected to monitor. Climbing out of ld1 bed to ask for more sandwiches, cranberry juice, water, milk, sugar. Pt continuously calling monument letterer light for more food, blankets, pillows. Not understanding directions when telling pt to stay in bed and stay hooked up to monitor so we can see her vital signs. Pt not listening to instructions or staff. Notified charge nurse and ERP. 19:00 Pain: Denies pain. jw7 19:00 General: Appears in no apparent distress. comfortable, Behavior is calm, cooperative. jw7 Neuro: Level of Consciousness is awake, alert, obeys commands, Oriented to person, place, time, situation. Cardiovascular: Capillary refill < 3 seconds Patient's skin is warm and dry. Respiratory: Airway is patent Trachea midline Respiratory effort is even, unlabored, Respiratory pattern is regular, symmetrical. GI: Abdomen is round non-distended, Bowel sounds present X 4 quads. : No deficits noted. No signs and/or symptoms were reported regarding the genitourinary system. EENT: No deficits noted. No signs and/or symptoms were reported regarding the EENT system. Derm: Skin is intact, is healthy with good turgor, Skin is dry, Skin is normal, Skin temperature is warm. Musculoskeletal: Circulation, motion, and sensation intact. Range of motion: intact in all extremities. Vital Signs: 15:04 BP 165 / 93; Pulse 110; Resp 19; Pulse Ox 99% on R/A; iw 15:08 Temp 98.7(O); nj1 15:31 BP 150 / 91; Pulse 118; Resp 24; Pulse Ox 95% on R/A; nj1 15:54 BP 149 / 84; Pulse 105; Resp 17; Pulse Ox 99% on R/A; nj1 16:33 Pulse 78; Resp 18; Pulse Ox 97% ; nj1 17:00 BP 113 / 75; Pulse 91; Resp 20; Pulse Ox 98% ; nj1 19:30 BP 142 / 79; Pulse 96; Resp 17 S; Pulse Ox 100% on R/A; jw7 ED Course: 14:51 Patient arrived in ED. sp3 14:52 Yumi Holder MD is Attending Physician. sp3 15:05 Leigha Berrios RN is Primary Nurse. nj1 15:08 Triage completed. iw 15:09 Arm band placed on. iw 15:20 Patient has correct armband on for positive identification. Bed in low position. Call nj1 light in reach. Side rails up X 1. 15:20 Provided Education on: call light, fall precautions. nj1 15:20 Inserted saline lock: 20 gauge in left antecubital area, using aseptic technique. nj1 ,using aseptic technique. Ultrasound guided. Catheter tip well visualized within vasculature during placement. Blood collected. 15:59 Alvin Edwards MD is Hospitalizing Provider. sp3 16:00 XRAY Chest (1 view) In Process Unspecified. EDMS 22:33 No provider procedures requiring assistance completed. Patient admitted, IV remains in jw7 place. Administered Medications: 15:32 Drug: Diltiazem IVP 10 mg IVP once; Over 2 minutes Route: IVP; Site: left antecubital; nj1 21:18 Follow up: Response: No adverse reaction; Marked relief of symptoms jw7 15:50 Drug: Aspirin PO 325 mg PO once Route: PO; nj1 21:18 Follow up: Response: No adverse reaction jw7 16:01 Drug: Metoprolol IVP 5 mg IVP once; Hold for SBP <100 or HR <60. Route: IVP; Site: left [facility] antecubital; 21:18 Follow up: Response: No adverse reaction; Marked relief of symptoms jw7 17:20 Drug: Furosemide IVP 40 mg IVP once; give over 2 minutes Route: IVP; Site: left [facility] antecubital; 21:18 Follow up: Response: No adverse reaction jw7 Medication: 22:35 VIS not applicable for this client. jw7 Outcome: 16:00 Decision to Hospitalize by Provider. sp3 22:33 Admitted to Med/surg accompanied by nurse, via wheelchair, room 202, jw7 22:33 Condition: stable 22:33 Instructed on the need for admit, Demonstrated understanding of instructions, 22:35 Patient left the ED. jw7 Signatures: Dispatcher [employer] EDFany Lieberman, WALI RN Soledad Rush RN RN ld1 Yumi Holedr MD MD sp3 Karrie Azevedo RN RN jw7 Leigha Berrios RN RN nj1 Corrections: (The following items were deleted from the chart) 15:09 15:08 PMHx: TIA (Myocardial infarcti); [facility]
--- NOTE | 2023-05-10 16:24 | RAD REPORT ---
EXAM DESCRIPTION: RAD - Chest Single View - 05/10/2023 3:59 pm CLINICAL HISTORY: DYSPNEA COMPARISON: Chest Single View dated 05/07/2023; Chest Single View dated 05/04/2023; Chest Single View dated 04/30/2023; Chest Single View dated 04/19/2023 FINDINGS: Lines: None. Lungs: No evidence of edema or pneumonia. Pleural: No significant pleural effusions or pneumothorax. Cardiac: Similar cardiomegaly. Mediastinum: Within normal limits. Bones: No acute fractures. Other: None IMPRESSION: No acute cardiopulmonary disease.
[2023-05-10] MEDS ORDERED: FUROSEMIDE 40 MG/4 ML VIAL ONE (16:50)
--- NOTE | 2023-05-10 17:54 | P.HP ---
Certification for Inpatient Patient admitted to: Observation With expected LOS: <2 Midnights Patient will require the following post-hospital care: None Practitioner: I am a practitioner with admitting privileges, knowledge of patient current condition, hospital course, and medical plan of care. Services: Services provided to patient in accordance with Admission requirements found in Title 42 Section 412.3 of the Code of Federal Regulations Patient History Date of Service: 05/10/23 Reason for admission: A-fib RVR History of Present Illness: 67 -year-old female with history of atrial fibrillation, CAD, TIA, diabetes mellitus type [id number], arthritis presents emerged department chief complaint of chest pain, shortness of breath. She was discharged from the hospital yesterday on 05/09/2023 with new prescriptions for Eliquis, aspirin. She is also supposed be on metoprolol tartrate 25 mg by mouth twice daily. She reports that she is currently homeless after being kicked out of her daughter's home and was unable to get to the pharmacy to flower picker her medications, she was found to be in atrial fibrillation rapid ventricular response rates in the 120s to 130s upon arrival to the emergency department. ED provider wishes to admit under observation for A-fib RVR, chest pain. During her recent admission cardiology saw the patient who reviewed her recent echocardiogram and stress test and recommended further outpatient evaluation. In the ER she was given IV Cardizem, Lopressor and IV Lasix initial hesitancy troponin is negative, ED provider wishes to make patient observation for A-fib RVR, chest pain Allergies nifedipine [From Procardia] Allergy (Mild, Verified 04/04/23 16:05) Hives/Rash insulin regular Allergy (Verified 03/02/23 20:52) Nausea/Vomiting Home Medications: Acetaminophen [Tylenol] 650 mg PO Q4HP PRN 03/02/23 Albuterol Neb [Proventil 0.083% Neb Soln] 2.5 mg NEB [id number] PRN #120 amp 04/06/23 Clopidogrel Bisulfate [Plavix*] 75 mg PO DAILY 30 Days #30 tab 04/06/23 Codeine/APAP [Tylenol #3*] 1 tab PO Q4H PRN #20 tab 04/06/23 Docusate [Colace Cap*] 200 mg PO DAILY #30 cap 04/06/23 Ferrous Sulfate [Ferrous Sulfate*] 325 mg PO DAILY #30 tab 04/06/23 Lidocaine [Dermacinrx Lidocan] 1 each TP DAILY 30 Days #30 patch 04/06/23 Metoprolol Tartrate [Lopressor*] 25 mg PO BID 6AM 6PM #60 tab 04/06/23 Multivitamin with Minerals [Multivitamins with Minerals] 1 each PO DAILY #30 tab 04/06/23 Omeprazole 20 mg PO DAILY #30 tab 04/06/23 Polyethylene Glycol 3350 [Miralax] 17 gm PO DAILYPRN PRN #30 packet 04/06/23 Sodium Chloride Tab [Sodium Chloride*] 1 gm PO TID #90 tab 04/06/23 Furosemide [Lasix*] 20 mg PO DAILY 30 Days #30 tab 04/23/23 Potassium Oral Tab [Klor-Con 10 mEq Tab*] 10 meq PO DAILY 30 Days #30 tab 04/23/23 Apixaban [Eliquis] 2.5 mg PO BID 30 Days #60 tablet 05/09/23 Aspirin [Aspirin EC 81 MG] 81 mg PO DAILY 30 Days #30 tab 05/09/23 - Past Medical/Surgical History Diabetic: Yes -: Gastritis / Esophagitis -: DM II -: CAD s/p PCI -: h/o alcohol abuse, with ?liver cirrhosis -: chronic intermittent diarrhea -: CVA vs TIA -: COPD (mild) -: Chronic hyponatremia -: OK -: HTN -: Atrial fibrillation -: s/p PCI (~2019) -: cholecystectomy -: Appendectomy -: Lap-Band surgery -: EGD/C-scope (early 2022) -: hip fracture Psychosocial/ Personal History: lives with daughter, recently moved to [facility] - Family History Father -: Heart disease, Hypertension Mother -: Heart disease, Hypertension, Diabetes - Social History Alcohol use: No CD- Drugs: No Caffeine use: Yes Place of Residence: [facility] Review of Systems 10-point ROS is otherwise unremarkable Cardiovascular: Chest Pain, Palpitations Physical Examination - Physical Exam General: Alert, In no apparent distress, Oriented x3 HEENT: Atraumatic, PERRLA Neck: Supple, 2+ carotid pulse no bruit Respiratory: Clear to auscultation bilaterally, Normal air movement Cardiovascular: Normal S1 S2, Irregular heart rate/rhythm Gastrointestinal: Normal bowel sounds Musculoskeletal: No tenderness Integumentary: No rashes Neurological: Normal gait, Normal speech, Normal strength at 5/5 x4 extr, Normal tone - Studies Laboratory Data (last 24 hrs) 05/10/23 05/10/23 05/10/23 15:20 15:20 15:04 WBC 7.00 Hgb 10.2 L Hct 30.4 L Plt Count 314 Sodium 133 L Potassium 3.2 L BUN 12 Creatinine 0.76 Glucose 103 Magnesium 2.1 Total Bilirubin 0.5 AST 12 L ALT 16 Alkaline Phosphatase 120 H Assessment and Plan - Plan Assessment: Chronic atrial fibrillation with rapid ventricular response Chest pain rule ACS Diabetes mellitus type [id number] Mild hyponatremia/hypokalemia Plan: Chronic atrial fibrillation with rapid ventricular response Patient was unable to get to pharmacy to flower picker her medications health services rn consult to be added Prescriptions to be sent to closest pharmacy [facility] [place] Will need her metoprolol, Eliquis Continue medications overnight, monitor on telemetry Possible discharge tomorrow May need assistance with transportation to pharmacy She believes her medications are $0 co-pay Chest pain rule ACS Trend troponins, monitor on telemetry Recent stress test negative Before being discharged yesterday cardiology recommended further evaluation as an outpatient Diabetes mellitus type [id number] ACHS Accu-Chek and sliding insulin Mild hyponatremia/hypokalemia Patient with chronic hyponatremia, replete potassium, monitor chemistry daily DVT PPX: Eliquis 2.5 mg twice daily Code status: Full Discharge Plan: Home Plan to discharge in: 24 Hours - Advance Directives Does patient have a Living Will: No Does patient have a Durable POA for Healthcare: Yes - Code Status/Comfort Care Code Status Assessed: Yes (Full code) Time Spent Managing Pts Care (In Minutes): 55
[2023-05-10] MEDS: INSULIN REGULAR (HUMAN) 100 UNIT/ML SQ SCH (22:13)
[2023-05-10] MEDS: METOPROLOL TAR 25 MG TAB PO SCH (22:53)
[2023-05-10] MEDS: APIXABAN 2.5 MG TABLET PO SCH (22:53)
[2023-05-10 23:19] VITALS: O2SAT 98
[2023-05-10 23:57] VITALS: BMI 23.9
[2023-05-10] MEDS: TRAZODONE 50 MG TABLET PO PRN (23:57)
[2023-05-10] MEDS: HYDROCODONE/APAP 5/325 MG TAB PO PRN (23:57)
[2023-05-11 06:41] LABS: Absolute Lymphocytes (CBC) 1.5 K/uL (0.7-4.9); Hematocrit 27.6 % (36.0-45.0); Lymphocytes % 29.5 % (15.3-44.8); MCV 80.9 fL (80-100); MPV 7.9 fL (7.6-11.3); Platelets 272 thou/uL (152-406); RBC Red Blood Cell Count 3.41 M/uL (3.86-4.86)
[2023-05-11 06:57] LABS: Magnesium 2.1 mg/dL (1.6-2.4); Potassium 3.6 mEq/L (3.5-5.1); Troponin High Sensitivity 20.3 pg/mL (<58.9)
[2023-05-11] MEDS ORDERED: PNEUMOCOCCAL VACCINE 0.5 ML IMVAC ONE (08:00)
[2023-05-11] MEDS ORDERED: INFLUENZA VACCINE (for 6+ mo) 0.5 ML DOSE IMVAC ONE (08:00)
[2023-05-11 08:19] LABS: Blood Morphology Comment NOT SEEN (NOT SEEN); Platelet Estimate ADEQ; White Blood Cell Scan OK (OK)
[2023-05-11] MEDS: POTASSIUM CL SA 10 MEQ TAB PO ONE (08:23)
[2023-05-11] MEDS: ASPIRIN EC 81 MG TAB PO SCH (08:23)
--- NOTE | 2023-05-11 13:18 | P.DS ---
Admission Date: 05/10/23 Discharge Date: 05/11/23 Disposition: ROUTINE DISCHARGE Discharge Condition: GOOD Reason for Admission: A-fib RVR Brief History of Present Illness: 67 -year-old female with history of atrial fibrillation, CAD, TIA, diabetes mellitus type [id number], arthritis presents emerged department chief complaint of chest pain, shortness of breath. She was discharged from the hospital yesterday on 05/09/2023 with new prescriptions for Eliquis, aspirin. She is also supposed be on metoprolol tartrate 25 mg by mouth twice daily. She reports that she is currently homeless after being kicked out of her daughter's home and was unable to get to the pharmacy to nut picker her medications, she was found to be in atrial fibrillation rapid ventricular response rates in the 120s to 130s upon arrival to the emergency department. ED provider wishes to admit under observation for A-fib RVR, chest pain. During her recent admission cardiology saw the patient who reviewed her recent echocardiogram and stress t est and recommended further outpatient evaluation. In the ER she was given IV Cardizem, Lopressor and IV Lasix initial hesitancy troponin is negative, ED provider wishes to make patient observation for A-fib RVR, chest pain Hospital Course: Assessment: Chronic atrial fibrillation with rapid ventricular response Chest pain rule ACS Diabetes mellitus type [id number] Mild hyponatremia/hypokalemia Patient was admitted to the hospital for A-fib RVR, she was recently discharged and had not been able to get to the pharmacy to nut picker her metoprolol or Eliquis. representative phlebotomy services had seen patient and gave her information for the bus route and other resources for housing, transportation in the area. Patient has remained in A-fib but is rate controlled, blood pressure is normalized after reinitiated metoprolol to 5 mg oral twice daily. Patient stable for discharge at this time, she has a prescription at [facility] in [place] for the Eliquis 2.5 mg twice daily from her recent admission, additional prescription for Toprol 25 mg mouth twice daily also sent to the pharmacy she was counseled on the importance of compliance with her home medications including the metoprolol and Eliquis for rate control and reduce risk of stroke, she reports that she has a $0 co-pay insurance. Recommend close follow-up with PCP in 1 to 2 weeks please follow-up with cardiology as well in 1 to 2 weeks For chronic pain I recommend taking [id number] Tylenol/ibuprofen or Aleve and follow-up with primary care doctor. Vital Signs/Physical Exam: Temp Pulse Resp BP Pulse Ox 98.5 F 88 18 120/71 100 05/11/23 08:00 05/11/23 08:00 05/11/23 08:00 05/11/23 08:00 05/11/23 08:00 General: Alert, In no apparent distress, Oriented x3 HEENT: Atraumatic, PERRLA, EOMI Neck: Supple, JVD not distended Respiratory: Clear to auscultation bilaterally, Normal air movement Cardiovascular: Normal S1 S2, Irregular heart rate/rhythm (Afib rate controlled) Gastrointestinal: Normal bowel sounds, No tenderness Musculoskeletal: No tenderness Integumentary: No rashes Neurological: Normal speech, Normal tone Laboratory Data at Discharge: WBC 5.10 thou/uL (4.3-10.9) 05/11/23 05:40 Hgb 9.1 g/dL (12.0-15.0) L D 05/11/23 05:40 Hct 27.6 % (36.0-45.0) L 05/11/23 05:40 Plt Count 272 thou/uL (152-406) 05/11/23 05:40 Sodium 134 mEq/L (136-145) L 05/11/23 05:40 Potassium 3.6 mEq/L (3.5-5.1) 05/11/23 05:40 BUN 19 mg/dL (7-18) H 05/11/23 05:40 Creatinine 0.79 mg/dL (0.55-1.02) 05/11/23 05:40 Glucose 105 mg/dL (74-106) 05/11/23 05:40 Magnesium 2.1 mg/dL (1.6-2.4) 05/11/23 05:40 Total Bilirubin 0.5 mg/dL (0.2-1.0) 05/10/23 15:20 AST 12 U/L (15-37) L 05/10/23 15:20 ALT 16 U/L (13-56) 05/10/23 15:20 Alkaline Phosphatase 120 U/L (45-117) H 02/27/24 15:20 Home Medications: Acetaminophen [Tylenol] 650 mg PO Q4HP PRN 03/02/23 Albuterol Neb [Proventil 0.083% Neb Soln] 2.5 mg NEB [id number] PRN #120 amp 04/06/23 Codeine/APAP [Tylenol #3*] 1 tab PO Q4H PRN #20 tab 04/06/23 Docusate [Colace Cap*] 200 mg PO DAILY #30 cap 04/06/23 Ferrous Sulfate [Ferrous Sulfate*] 325 mg PO DAILY #30 tab 04/06/23 Lidocaine [Dermacinrx Lidocan] 1 each TP DAILY 30 Days #30 patch 04/06/23 Metoprolol Tartrate [Lopressor*] 25 mg PO BID 6AM 6PM #60 tab 04/06/23 Multivitamin with Minerals [Multivitamins with Minerals] 1 each PO DAILY #30 tab 04/06/23 Omeprazole 20 mg PO DAILY #30 tab 04/06/23 Polyethylene Glycol 3350 [Miralax] 17 gm PO DAILYPRN PRN #30 packet 04/06/23 Sodium Chloride Tab [Sodium Chloride*] 1 gm PO TID #90 tab 04/06/23 Potassium Oral Tab [Klor-Con 10 mEq Tab*] 10 meq PO DAILY 30 Days #30 tab 04/23/23 Apixaban [Eliquis *] 2.5 mg PO BID 30 Days #60 tablet 05/09/23 Aspirin [Aspirin EC 81 MG] 81 mg PO DAILY 30 Days #30 tab 05/09/23 Metoprolol Tartrate [Lopressor*] 25 mg PO BID #60 tab 05/11/23 New Medications: Metoprolol Tartrate [Lopressor*] 25 mg PO BID #60 tab Physician Discharge Instructions: Patient was admitted to the hospital for A-fib RVR, she was recently discharged and had not been able to get to the pharmacy to nut picker her metoprolol or Eliquis. representative phlebotomy services had seen patient and gave her information for the bus route and other resources for housing, transportation in the area. Patient has remained in A-fib but is rate controlled, blood pressure is normalized after reinitiated metoprolol to 5 mg oral twice daily. Patient stable for discharge at this time, she has a prescription at [facility] in [place] for the Eliquis 2.5 mg twice daily from her recent admission, additional prescription for Toprol 25 mg mouth twice daily also sent to the pharmacy she was counseled on the importance of compliance with her home medications including the metoprolol and Eliquis for rate control and reduce risk of stroke, she reports that she has a $0 co-pay insurance. Recommend close follow-up with PCP in 1 to 2 weeks please follow-up with cardiology as well in 1 to 2 weeks For chronic pain I recommend taking [id number] Tylenol/ibuprofen or Aleve and follow-up with primary care doctor. Diet: AHA Activity: Ad freddy Followup: NONE,NONE [Primary Care Provider] - 1-2 Weeks David Irby MD [ACTIVE - CAN ADMIT] - 1-2 Weeks Time spent managing pt's care (in minutes): 30
[2023-05-11 13:28] VITALS: BP 116/60; TEMP 97.6
--- NOTE | 2023-05-12 15:30 | EKG ---
Test Date: 2023-05-10 Test Time: 14:48:18 Recycling Sorter: GABRIELLE MEASUREMENT RESULTS: Intervals: Rate: 119 IA: QRSD: 82 QT: 320 QTc: 450 [place]: P: IA: QRS: 54 T: 59 INTERPRETIVE STATEMENTS: Atrial fibrillation with rapid ventricular response Low voltage QRS Cannot rule out Anteroseptal infarct, age undetermined Abnormal ECG Compared to ECG 05/07/2023 05:57:41 Low QRS voltage now present Myocardial infarct finding still present Electronically Signed On 05-12-23 15:25:45 BARREL CAP SETTER by David Irby
== END 2023-05-11 13:16 | disposition home or self-care (01) ==
LOC: ER 14:44 → ERHOLD 16:39 → 2ND 21:16
PROVIDERS: ADMIT Hospitalist; ATTEND Hospitalist
DX: I48.20 Chronic atrial fibrillation, unspecified (principal); I25.10 Atherosclerotic heart disease of native coronary artery without angina pectoris; E11.9 Type 2 diabetes mellitus without complications; E87.1 Hypo-osmolality and hyponatremia; E87.6 Hypokalemia; R07.9 Chest pain, unspecified; R06.02 Shortness of breath; Z86.73 Personal history of transient ischemic attack (TIA), and cerebral infarction without residual deficits; Z88.8 Allergy status to other drugs, medicaments and biological substances; Z59.00 Homelessness unspecified; Z91.148 Patient's other noncompliance with medication regimen for other reason
CPT/HCPCS: 93005; 85025 ×2; 80048 ×2; 36415; 83735 ×2; 82947 ×3; 80076; 84484 ×3; 83880; 71045; 96375; 96374; 99285; J1940; G0378

== ENCOUNTER → 2023-05-18 | Emergency (ER) | payer OTHER ==
[~2023-05-18] MED LIST changes: -ACETAMINOPHEN 500 MG TAB ONE; +ALBUTEROL 2.5 MG/3 ML NEB SOL ONE; +ALBUTEROL INHALER 200 PUFF/6.7 GM IH ONE; +AZITHROMYCIN 250 MG TAB ONE; +CODEINE 30MG/APAP 300MG TAB ONE; +IPRATROPIUM BROM 0.5MG/2.5ML ONE; +ONDANSETRON 4 MG (ODT) TAB ONE; +predniSONE 20 MG TAB ONE
--- NOTE | 2023-05-19 00:12 | EDPHYS ---
Physician Documentation [facility] Name: Reina Hartley Age: 67 yrs Sex: Female : 1955 Arrival Date: 05/18/2023 Time: 23:41 Bed 4 Private MD: ED Physician Feng Lerner HPI: 05/17 23:43 This 67 yrs old Female presents to ER via Unassigned with complaints of COPD sp4 Exacerbation. 23:47 PMH- Historical: Allergies: all depression medications; Procardia; PMHx: Arthritis; sp4 diabetes mellitus; Hypertensive disorder; Myocardial infarction PSHx: Appendectomy; breast augmentation; cardiac stent; Cholecystectomy; Gastric Bypass; hysterectomy; Left hip; . 23:47 59-year-old female who has past medical history of COPD and chronic bronchitis presents sp4 with worsening cough. Patient was managed here yesterday on 05/17/2023 and this morning as well for cough. She [place] the [facility] by EMS for persistent cough and wheezing. EMS administered a breathing treatment prior to arrival with improvement . Patient complains of persistent cough and is requesting a pillow. . 23:55 X ray report from this AM - EXAM DESCRIPTION: RAD - Chest Pa And Lat (2 Views) - sp4 05/18/2023 10:08 am CLINICAL HISTORY: COUGH COMPARISON: Chest Single View dated 05/14/2023; Chest Single View dated 05/12/2023; Chest Single View dated 05/10/2023; Chest Single View dated 05/07/2023 TECHNIQUE: PA and lateral views of the chest were obtained. FINDINGS: The lungs are clear. Heart size is normal and central vasculature is within normal limits, although there is tortuosity of the thoracic aorta, stable. No pleural effusion or pneumothorax seen. No acute bony finding noted. IMPRESSION: No acute cardiopulmonary process. . 05/18 00:09 Prescriptions on 05/17/2023 - Proventil HFA 90 mcg/actuation Inhalation HFA Aerosol sp4 Inhaler inhale 2 inhalation INHALATION route every 4 to 6 hours as needed for bronchospasm; administer via ventilator; 1 Each; Refills: 0; Product Selection Permitted Zithromax Z-Ramses 250 mg Oral Tablet take 1 tablet ORAL route as directed for 5 days Day 1 - take two (2) tablets one time. Day 2, 3, 4 , 5 take one (1) tablet once daily.; 6 tablet; Refills: 0; Product Selection Permitted . Historical: - Allergies: 05/17 23:45 all depression medications; jw7 23:45 Procardia; jw7 - PMHx: 23:45 Arthritis; diabetes mellitus; Hypertensive disorder; Myocardial infarction; jw7 - PSHx: 23:45 Appendectomy; breast augmentation; cardiac stent; Cholecystectomy; Gastric Bypass; jw7 hysterectomy; Left hip; - Immunization history:: Adult Immunizations unknown. - Social history:: Smoking status: unknown. - Family history:: not pertinent. ROS: 23:47 Constitutional: Negative for fever, chills, and weight loss, positive for persistent sp4 cough and wheezing 23:47 All other systems are negative, Exam: 23:47 Constitutional: This is a well developed, well nourished patient who is awake, alert, sp4 and in no acute distress. Head/Face: Normocephalic, atraumatic. Eyes: Pupils equal round and reactive to light, extra-ocular motions intact. Lids and lashes normal. Conjunctiva and sclera are not injected. Cornea within normal limits. Periorbital areas with no swelling, redness, or edema. ENT: Nares patent. No nasal discharge, no septal abnormalities noted. Tympanic membranes are normal and external auditory canals are clear. Oropharynx with no redness, swelling, or masses, exudates, or evidence of obstruction, uvula midline. Mucous membranes moist. Neck: Trachea midline, no thyromegaly or masses palpated, and no cervical lymphadenopathy. Supple, full range of motion without nuchal rigidity, or vertebral point tenderness. Chest/axilla: Normal chest wall appearance and motion. Nontender with no deformity. No lesions are appreciated. Cardiovascular: Regular rate and rhythm with a normal S1 and S2. No gallops, murmurs, or rubs. Normal PMI, no JVD. No pulse deficits. Respiratory: Lungs have equal breath sounds bilaterally, clear to auscultation and percussion. No rales, rhonchi or wheezes noted. No increased work of breathing, no retractions or nasal flaring. Abdomen/GI: Soft, with normal bowel sounds. No distension or tympany. No guarding or rebound. No evidence of tenderness throughout. Back: No spinal tenderness. No costovertebral tenderness. Skin: Warm, dry with normal turgor. Normal color with no rashes, no lesions, and no evidence of cellulitis. MS/ Extremity: Pulses equal, no cyanosis. Neurovascular intact. Full, normal range of motion. Neuro: Awake and alert, GCS 15, oriented to person, place, time, and situation. Cranial nerves II-XII grossly intact. Motor strength 5/5 in all extremities. Sensory grossly intact. Psych: Awake, alert, with orientation to person, place and time. Behavior, mood, and affect are within normal limits Vital Signs: 23:45 BP 140 / 75; Pulse 85; Resp 18 S; Temp 98.2(O); Pulse Ox 99% on R/A; Pain 0/10; jw7 05/18 00:45 BP 138 / 72; Pulse 83; Resp 17 S; Pulse Ox 98% on R/A; jw7 05/17 23:45 Pain Scale: Adult [facility] MDM: 05/17 23:47 Patient medically screened. sp4 05/18 00:11 Differential Diagnosis flu, Acute bronchitis, wheezing, COPD exacerbation. Data sp4 reviewed: vital signs, nurses notes, EMS record, old medical records. ED course: Patient was noted to walk around the emergency room without any distress. Acute medications were administered for cough and bronchitis here in ER. Patient was advised to continue medications that were prescribed around 05/17/2023 - Proventil HFA 90 mcg/actuation Inhalation HFA Aerosol Inhaler inhale 2 inhalation INHALATION route every 4 to 6 hours as needed for bronchospasm; Zithromax Z-Ramses 250 mg Oral Tablet take 1 tablet ORAL route as directed for 5 days . 05/18 00:35 Order name: Glucose, Ancillary Testing EDMS 05/17 23:47 Order name: Accucheck Blood Glucose; Complete Time: 00:25 sp4 Administered Medications: 00:57 Drug: Acetaminophen-Codeine PO (300 mg-30 mg) 2 tabs PO once; RASS on ADMIN: Combtv4, jw7 Very Agttd3, Agttd2, Rstlss1, AlertClm0, Drwsy-1, Lt Sdtn-2, Mod Sdtn-3, Dp Sdtn-4, UnArsble-5 Route: PO; 01:34 Follow up: Response: No adverse reaction jw7 00:57 Drug: AZITHromycin PO 500 mg PO once Route: PO; jw7 :34 Follow up: Response: No adverse reaction :57 Drug: DuoNeb Nebulize (3:1) (2.5 mg - 0.5 mg) 3 ml Nebulizer once Route: Nebulizer; 7 :33 Follow up: Response: No adverse reaction; Marked relief of symptoms :57 Drug: predniSONE PO 60 mg PO once Route: PO; 7 :33 Follow up: Response: No adverse reaction :57 Drug: Ondansetron PO 4 mg PO once Route: PO; 7 :33 Follow up: Response: No adverse reaction jw7 Disposition Summary: 05/19/23 00:11 Discharge Ordered Problem: new sp4 Symptoms: have improved sp4 Condition: Stable sp4 Diagnosis - Acute bronchitis, unspecified sp4 - Noncompliance with medical management sp4 Followup: sp4 - With: Private Physician - When: 7 - 10 days - Reason: Recheck today's complaints Discharge Instructions: - Discharge Summary Sheet sp4 - Acute Bronchitis, Adult sp4 Forms: - Patient Portal Instructions sp4 Signatures: Karrie Azevedo RN RN jw7 Feng Lerner MD MD sp4
--- NOTE | 2023-05-19 01:34 | ER ---
Nurse's Notes [facility] Name: Reina Hartley Age: 67 yrs Sex: Female : 1955 Arrival Date: 05/18/2023 Time: 23:41 Bed 4 Private MD: Diagnosis: Acute bronchitis, unspecified;Noncompliance with medical management Presentation: 05/17 23:45 Chief complaint: EMS states: Wheezing, dizziness and coughing. Coronavirus screen: At [facility] this time, the client does not indicate any symptoms associated with coronavirus-19. Ebola Screen: No symptoms or risks identified at this time. Initial Sepsis Screen: Does the patient meet any 2 criteria? No. Patient's initial sepsis screen is negative. Does the patient have a suspected source of infection? No. Patient's initial sepsis screen is negative. Risk Assessment: Do you want to hurt yourself or someone else? Patient reports no desire to harm self or others. Onset of symptoms was May 19, 2023. Care prior to arrival: Glucose check: 125. 23:45 Method Of Arrival: EMS: [facility] 23:45 Acuity: ANDREA 4 jw7 Triage Assessment: 23:45 General: Appears in no apparent distress. comfortable, Behavior is calm, cooperative. jw7 Pain: Denies pain. EENT: No deficits noted. No signs and/or symptoms were reported regarding the EENT system. Neuro: Shane Agitation-Sedation Scale (RASS): 0 - Alert and Calm Level of Consciousness is awake, alert, obeys commands, Oriented to person, place, time, situation. Cardiovascular: Heart tones S1 S2 present Capillary refill < 3 seconds Clubbing of nail beds is absent JVD is absent Patient's skin is warm and dry. Respiratory: Airway is patent Trachea midline Respiratory effort is even, unlabored, Respiratory pattern is regular, symmetrical, Breath sounds are clear bilaterally. Respiratory: Reports cough that is non-productive. GI: Abdomen is round non-distended, Bowel sounds present X 4 quads. Abd is soft and non tender X 4 quads. : No deficits noted. No signs and/or symptoms were reported regarding the genitourinary system. Derm: Skin is intact, is healthy with good turgor, Skin is dry, Skin is normal, Skin temperature is warm. Musculoskeletal: Circulation, motion, and sensation intact. Range of motion: intact in all extremities. Historical: - Allergies: 23:45 all depression medications; jw7 23:45 Procardia; jw7 - PMHx: 23:45 Arthritis; diabetes mellitus; Hypertensive disorder; Myocardial infarction; jw7 - PSHx: 23:45 Appendectomy; breast augmentation; cardiac stent; Cholecystectomy; Gastric Bypass; jw7 hysterectomy; Left hip; - Immunization history:: Adult Immunizations unknown. - Social history:: Smoking status: unknown. - Family history:: not pertinent. Screenin:45 [facility] ED Fall Risk Assessment (Adult) History of falling in the last 3 months, jw7 including since admission No falls in past 3 months (0 pts) Confusion or Disorientation No (0 pts) Intoxicated or Sedated No (0 pts) Impaired Gait No (0 pts) Mobility Assist Device Used No (0 pt) Altered Elimination No (0 pt) Score/Fall Risk Level 0 - 2 = Low Risk Oriented to surroundings, Maintained a safe environment, Educated pt \T\ family on fall prevention, incl call for assistance when getting out of bed. Abuse screen: Denies threats or abuse. Denies injuries from another. Nutritional screening: No deficits noted. Tuberculosis screening: No symptoms or risk factors identified. Assessment: 23:46 General: See Triage Assessment. 7 05/18 00:12 General: Discharge pending completion of ordered medications. jw7 01:00 Reassessment: Patient appears in no apparent distress at this time. No changes from [facility] previously documented assessment. Patient and/or family updated on plan of care and expected duration. Pain level reassessed. Patient is alert, oriented x 3, equal unlabored respirations, skin warm/dry/pink. Vital Signs: 05/17 23:45 BP 140 / 75; Pulse 85; Resp 18 S; Temp 98.2(O); Pulse Ox 99% on R/A; Pain 0/10; jw7 05/18 00:45 BP 138 / 72; Pulse 83; Resp 17 S; Pulse Ox 98% on R/A; jw7 05/17 23:45 Pain Scale: Adult [facility] ED Course: 05/17 23:42 Patient arrived in ED. 23:43 Feng Lerner MD is Attending Physician. sp4 23:45 Arm band placed on. jw7 23:45 Patient has correct armband on for positive identification. Placed in gown. Bed in low jw7 position. Call light in reach. Side rails up X2. 05/18 01:28 Triage completed. jw7 :31 Provided Education on: proper use of call light. jw7 : No provider procedures requiring assistance completed. Patient did not have IV access jw7 during this emergency room visit. 01:32 Provided Education on: Follow up with PCP. vc1 Administered Medications: 00:57 Drug: Acetaminophen-Codeine PO (300 mg-30 mg) 2 tabs PO once; RASS on ADMIN: Combtv4, jw7 Very Agttd3, Agttd2, Rstlss1, AlertClm0, Drwsy-1, Lt Sdtn-2, Mod Sdtn-3, Dp Sdtn-4, UnArsble-5 Route: PO; 01:34 Follow up: Response: No adverse reaction jw7 00:57 Drug: AZITHromycin PO 500 mg PO once Route: PO; jw7 :34 Follow up: Response: No adverse reaction jw7 :57 Drug: DuoNeb Nebulize (3:1) (2.5 mg - 0.5 mg) 3 ml Nebulizer once Route: Nebulizer; jw7 01:33 Follow up: Response: No adverse reaction; Marked relief of symptoms jw7 00:57 Drug: predniSONE PO 60 mg PO once Route: PO; jw7 :33 Follow up: Response: No adverse reaction jw7 00:57 Drug: Ondansetron PO 4 mg PO once Route: PO; jw7 :33 Follow up: Response: No adverse reaction jw7 Medication: :32 VIS not applicable for this client. vc1 Outcome: 00:11 Discharge ordered by . sp4 01:31 Discharged to home ambulatory, jw7 :31 Condition: stable 01:31 Discharge instructions given to patient, Instructed on discharge instructions, follow up and referral plans. Demonstrated understanding of instructions, follow-up care, :33 Patient left the ED. vc1 Signatures: Suzy Gu Vanessa RN RN vc1 Karrie Azevedo RN RN jwFeng Simmons MD MD sp4 Corrections: (The following items were deleted from the chart) 01:33 00:36 General: Discharge pending completion of ordered medications. jw7 jw7
[2023-05-19 01:51] VITALS: BP 138/72; TEMP 98.2; O2SAT 98
== END ==
LOC: ER 23:41
DX: J20.9 Acute bronchitis, unspecified (principal); Z91.148 Patient's other noncompliance with medication regimen for other reason; I10 Essential (primary) hypertension; Z95.818 Presence of other cardiac implants and grafts; Z98.82 Breast implant status; Z88.8 Allergy status to other drugs, medicaments and biological substances
CPT/HCPCS: 94640; 99284

== ENCOUNTER → 2023-05-18 | Emergency (ER) | payer OTHER ==
[~2023-05-18] MED LIST changes: -ALBUTEROL INHALER 200 PUFF/6.7 GM IH ONE; -AZITHROMYCIN 250 MG TAB ONE; -CODEINE 30MG/APAP 300MG TAB ONE; -ONDANSETRON 4 MG (ODT) TAB ONE
--- NOTE | 2023-05-18 10:24 | RAD REPORT ---
EXAM DESCRIPTION: RAD - Chest Pa And Lat (2 Views) - 05/18/2023 10:08 am CLINICAL HISTORY: COUGH COMPARISON: Chest Single View dated 05/14/2023; Chest Single View dated 05/12/2023; Chest Single View d ated 05/10/2023; Chest Single View dated 05/07/2023 TECHNIQUE: PA and lateral views of the chest were obtained. FINDINGS: The lungs are clear. Heart size is normal and central vasculature is within normal limits, although there is tortuosity of the thoracic aorta, stable. No pleural effusion or pneumothorax seen . No acute bony finding noted. IMPRESSION: No acute cardiopulmonary process.
--- NOTE | 2023-05-18 11:41 | ER ---
Nurse's Notes [facility] Name: Reina Hartley Age: 67 yrs Sex: Female : 1955 Arrival Date: 05/18/2023 Time: 09:37 Bed 6 Private MD: Diagnosis: Acute bronchitis, unspecified Presentation: 05/17 09:38 Chief complaint: EMS states: COUGH 2/2 "BRONCHITIS". Coronavirus screen: At this time, bp the client does not indicate any symptoms associated with coronavirus-19. Ebola Screen: No symptoms or risks identified at this time. Initial Sepsis Screen: Does the patient meet any 2 criteria? HR > 90 bpm. No. Patient's initial sepsis screen is negative. Does the patient have a suspected source of infection? No. Patient's initial sepsis screen is negative. Risk Assessment: Do you want to hurt yourself or someone else? Patient reports no desire to harm self or others. Onset of symptoms is unknown. Care prior to arrival: Glucose check: 112. 09:38 Method Of Arrival: EMS: [facility] bp 09:38 Acuity: ANDREA 4 bp Triage Assessment: 09:40 General: Appears in no apparent distress. Behavior is appropriate for age. Pain: Denies bp pain. Respiratory: Reports cough that is non-productive, Onset: The symptoms/episode began/occurred at an unknown time. the patient reports symptoms have resolved. Historical: - Allergies: 09:40 all depression medications; bp 09:40 Procardia; bp - PMHx: 09:40 Arthritis; diabetes mellitus; Hypertensive disorder; Myocardial infarction; bp - PSHx: 09:40 Appendectomy; breast augmentation; cardiac stent; Cholecystectomy; Gastric Bypass; bp hysterectomy; Left hip; - Immunization history:: Adult Immunizations up to date. - Social history:: Smoking status: Patient denies any tobacco usage or history of. Screenin:15 [facility] ED Fall Risk Assessment (Adult) History of falling in the last 3 months, ko1 including since admission No falls in past 3 months (0 pts) Confusion or Disorientation No (0 pts) Intoxicated or Sedated No (0 pts) Impaired Gait No (0 pts) Mobility Assist Device Used No (0 pt) Altered Elimination No (0 pt) Score/Fall Risk Level 0 - 2 = Low Risk Oriented to surroundings, Maintained a safe environment, Educated pt \\T\\ family on fall prevention, incl call for assistance when getting out of bed, Assessed \\T\\ reinforced patient's understanding of fall precautions, Provided non-skid footwear, Hourly rounding (assess needs \\T\\ fall precautionary measures) done, Used ambulatory aids as needed (educated on \\T\\ assisted with), Used gait belt as appropriate. Abuse screen: Denies threats or abuse. Denies injuries from another. Nutritional screening: No deficits noted. Tuberculosis screening: No symptoms or risk factors identified. Assessment: 11:15 General: Appears in no apparent distress. Behavior is calm, cooperative, appropriate ko1 for age. Pain: Denies pain. Neuro: No deficits noted. Cardiovascular: Rhythm is atrial fibrillation. Respiratory: Reports shortness of breath cough that is non-productive, dry, Airway is patent Respiratory effort is even, unlabored, Respiratory pattern is regular, Breath sounds are clear bilaterally. GI: No deficits noted. : No deficits noted. EENT: No deficits noted. Derm: No deficits noted. Musculoskeletal: No deficits noted. Vital Signs: 09:38 BP 148 / 77; Pulse 100; Resp 20; Temp 98.6; Pulse Ox 100% on R/A; bp 11:15 BP 152 / 80; Pulse 105; Resp 18; Pulse Ox 99% on R/A; ko1 11:39 BP 145 / 78; Pulse 99; Resp 17; Temp 98.2; Pulse Ox 99% on R/A; ko1 ED Course: 09:38 Patient arrived in ED. im 09:39 Triage completed. bp 09:40 Arm band placed on. bp 09:41 Feroz Rush DO is Attending Physician. ms3 10:10 Chest Pa And Lat (2 Views) XRAY In Process Unspecified. EDMS 11:15 Noelle Stiles, RN is Primary Nurse. ko1 11:15 Patient has correct armband on for positive identification. Allergy band placed. Bed in ko1 low position. Call light in reach. Side rails up X 1. Provided Education on: na. Pulse ox on. NIBP on. Door closed. Noise minimized. Lights dimmed. Warm blanket given. PO fluids given. 11:15 No provider procedures requiring assistance completed. Patient did not have IV access ko1 during this emergency room visit. 11:41 Anup Holder DO is Referral Physician. ms3 Administered Medications: 11:19 Drug: DuoNeb Nebulize (2.5 mg - 0.5 mg) 3 ml Nebulizer once Route: Nebulizer; ko1 11:36 Follow up: Response: No adverse reaction ko1 11:19 Drug: predniSONE PO 60 mg PO once Route: PO; ko1 11:36 Follow up: Response: No adverse reaction ko1 Medication: 11:39 VIS not applicable for this client. ko1 Outcome: 11:41 Discharge ordered by MD. ms3 11:44 Discharged to home ambulatory, ko1 11:44 Condition: stable 11:44 Discharge instructions given to patient, Instructed on discharge instructions, follow up and referral plans. Demonstrated understanding of instructions, follow-up care, 11:44 Patient left the ED. ko1 Signatures: Dispatcher [employer] EDMS Bruce Grewal, RN RN Feroz Dubose DO DO ms3 Noelle Stiles RN RN ko1 Ayleen Alvares
--- NOTE | 2023-05-18 11:41 | EDPHYS ---
Physician Documentation [facility] Name: Reina Hartley Age: 67 yrs Sex: Female : 1955 Arrival Date: 05/18/2023 Time: 09:37 Bed 6 Private MD: ED Physician Feroz Rush HPI: 05/17 11:41 This 67 yrs old Female presents to ER via EMS with complaints of Cough. ms3 11:41 67-year-old female with past medical history of arthritis, diabetes, hypertension, ms3 myocardial infarction presents emergency department via [facility] for coughing. Patient states she was seen in the emergency department yesterday and diagnosed with bronchitis. Patient notes she has prescriptions for albuterol inhaler, steroids that she has not filled. Patient states her symptoms have gotten worse since yesterday. Patient denies nausea, vomiting, fevers, chills, chest pain. Historical: - Allergies: 09:40 all depression medications; bp 09:40 Procardia; bp - PMHx: 09:40 Arthritis; diabetes mellitus; Hypertensive disorder; Myocardial infarction; bp - PSHx: 09:40 Appendectomy; breast augmentation; cardiac stent; Cholecystectomy; Gastric Bypass; bp hysterectomy; Left hip; - Immunization history:: Adult Immunizations up to date. - Social history:: Smoking status: Patient denies any tobacco usage or history of. ROS: 11:41 Constitutional: Negative for fever, and chills. Neck: Negative for injury, pain, and ms3 swelling, Cardiovascular: Negative for chest pain, and palpitations. 11:41 Abdomen/GI: Negative for abdominal pain, nausea, vomiting, diarrhea, and constipation, MS/Extremity: Negative for injury and deformity, Skin: Negative for injury, rash, and discoloration, 11:41 Respiratory: Positive for cough, Exam: 11:41 Constitutional: This is a well developed, well nourished patient who is awake, alert, ms3 and in no acute distress. Head/Face: Normocephalic, atraumatic. Chest/axilla: Normal chest wall appearance and motion. Nontender with no deformity. Cardiovascular: Regular rate and rhythm with a normal S1 and S2. No gallops, murmurs, or rubs. Normal PMI, no JVD. No pulse deficits. 11:41 Respiratory: the patient does not display signs of respiratory distress, Respirations: normal, Breath sounds: wheezing: that is mild, is heard diffusely, Vital Signs: 09:38 BP 148 / 77; Pulse 100; Resp 20; Temp 98.6; Pulse Ox 100% on R/A; bp 11:15 BP 152 / 80; Pulse 105; Resp 18; Pulse Ox 99% on R/A; ko1 11:39 BP 145 / 78; Pulse 99; Resp 17; Temp 98.2; Pulse Ox 99% on R/A; ko1 MDM: 09:48 Patient medically screened. ms3 11:41 Differential Diagnosis: Bronchitis Upper Respiratory Infection Pneumonia. Data ms3 reviewed: vital signs, nurses notes, radiologic studies, and as a result, I will discharge patient. I considered the following discharge prescriptions or medication management in the emergency department Medications were administered in the Emergency Department. See MAR. Independent interpretation of the following test(s) in the Emergency Department X-Ray: My interpretation is CXR image reviewed by me does not reveal pneumonia. Historians other than the Patient: EMS: [email or web address]. Care significantly affected by the following chronic conditions: Diabetes, Hypertension. Care significantly affected by the following Social Determinants of Health: Poor access to healthcare and/or lack of insurance, Poor access to transportation, Inadequate housing. Counseling: I had a detailed discussion with the patient and/or guardian regarding the historical points, exam findings, and any diagnostic results supporting the discharge/admit diagnosis, radiology results, the need for outpatient follow up, to return to the emergency department if symptoms worsen or persist or if there are any questions or concerns that arise at home. Medication response: albuterol nebulizer treatment(s) relieved the patient's symptoms. The patient is no longer wheezing. Response to treatment: the patient's symptoms have resolved after treatment. Special discussion: I discussed with the patient/guardian in detail that at this point there is no indication for admission to the hospital. It is understood, however, that if the symptoms persist or worsen the patient needs to return immediately for re-evaluation. ED course: On reevaluation patient symptoms improved, patient is alert and oriented x 4, no apparent distress, nontoxic-appearing, ambulatory emergency room, speaking full sentences. Patient to follow-up with PCP in 2 to 3 days. All questions were answered. Return precautions discussed include worsening symptoms, or any other concerns.. 05/17 09:49 Order name: Chest Pa And Lat (2 Views) XRAY; Complete Time: 11:11 ms3 Administered Medications: 11:19 Drug: DuoNeb Nebulize (2.5 mg - 0.5 mg) 3 ml Nebulizer once Route: Nebulizer; ko1 11:36 Follow up: Response: No adverse reaction ko1 11:19 Drug: predniSONE PO 60 mg PO once Route: PO; ko1 11:36 Follow up: Response: No adverse reaction ko1 Disposition Summary: 05/18/23 11:41 Discharge Ordered Notes: Location: Home ms3 Condition: Stable ms3 Diagnosis - Acute bronchitis, unspecified ms3 Followup: ms3 - With: Anup Holder DO - When: 2 - 3 days - Reason: Recheck today's complaints Discharge Instructions: - Discharge Summary Sheet ms3 - Acute Bronchitis, Adult ms3 Forms: - Medication Reconciliation Form ms3 - Thank You Letter ms3 - Antibiotic Education ms3 - Prescription Opioid Use ms3 - Patient Portal Instructions ms3 - Leadership Thank You Letter ms3 Signatures: Dispatcher [employer] Bruce Yan, RN RN Feroz Dubose DO DO ms3 Noelle Stiles, RN RN ko1
[2023-05-18 12:17] VITALS: BP 145/78; TEMP 98.2; O2SAT 99
== END ==
LOC: ER 09:37
DX: J20.9 Acute bronchitis, unspecified (principal); E11.9 Type 2 diabetes mellitus without complications; I10 Essential (primary) hypertension; I25.2 Old myocardial infarction; Z88.8 Allergy status to other drugs, medicaments and biological substances; Z95.818 Presence of other cardiac implants and grafts; Z98.82 Breast implant status
CPT/HCPCS: 71046; J7512; J7613; J7644; 94640; 99284

== ENCOUNTER → 2023-05-19 | Emergency (ER) | payer OTHER ==
--- NOTE | 2023-05-19 14:21 | EDPHYS ---
Physician Documentation [facility] Name: Reina Hartley Age: 67 yrs Sex: Female : 1955 Arrival Date: 05/19/2023 Time: 14:18 Bed DX3 Private MD: ED Physician Feroz Rush HPI: 05/18 14:21 This 67 yrs old Female presents to ER via EMS with complaints of Shortness Of Breath. ms3 14:21 67-year-old female past medical history of arthritis, diabetes, myocardial infarction, ms3 hypertension presents to the emergency department via [facility] for complaints of bronchitis. Patient denies fevers, chills, nausea, vomiting. Patient denies any alleviating or inciting factors. Historical: - Allergies: 14:19 all depression medications; aa5 14:19 Procardia; aa5 - PMHx: 14:19 Arthritis; diabetes mellitus; Hypertensive disorder; Myocardial infarction; aa5 - PSHx: 14:19 Appendectomy; breast augmentation; cardiac stent; Cholecystectomy; Gastric Bypass; aa5 hysterectomy; Left hip; - Immunization history:: Adult Immunizations unknown. - Social history:: Smoking status: Patient reports the use of cigarette tobacco products, smokes one-half pack cigarettes per day. ROS: 14:21 Constitutional: Negative for fever, and chills. Neck: Negative for injury, pain, and ms3 swelling, Cardiovascular: Negative for chest pain, and palpitations. 14:21 MS/Extremity: Negative for injury and deformity, Skin: Negative for injury, rash, and discoloration, 14:21 Respiratory: Positive for shortness of breath, Exam: 14:21 Constitutional: This is a well developed, well nourished patient who is awake, alert, ms3 and in no acute distress. Head/Face: Normocephalic, atraumatic. Neck: Trachea midline, no cervical lymphadenopathy. Supple, full range of motion without nuchal rigidity, or vertebral point tenderness. No Meningismus. Chest/axilla: Normal chest wall appearance and motion. Nontender with no deformity. Cardiovascular: Regular rate and rhythm with a normal S1 and S2. No gallops, murmurs, or rubs. Normal PMI, no JVD. No pulse deficits. Respiratory: Lungs have equal breath sounds bilaterally, clear to auscultation and percussion. No rales, rhonchi or wheezes noted. No increased work of breathing, no retractions or nasal flaring. Abdomen/GI: Soft, non-tender, with normal bowel sounds. No distension or tympany. No guarding or rebound. No evidence of tenderness throughout. Skin: Warm, dry with normal turgor. Normal color with no rashes, no lesions, and no evidence of cellulitis. MS/ Extremity: Pulses equal, no cyanosis. Neurovascular intact. Full, normal range of motion. Vital Signs: 14:18 BP 178 / 93; Pulse 100; Resp 20 S; Temp 98(TE); Pulse Ox 100% on R/A; aa5 14:38 BP 168 / 90; Pulse 102; Resp 19 S; Pulse Ox 100% on R/A; aa5 MDM: 14:18 Patient medically screened. ms3 14:21 Differential diagnosis: asthma, Bronchitis. Data reviewed: vital signs, nurses notes, ms3 and as a result, I will discharge patient. I considered the following discharge prescriptions or medication management in the emergency department Medications were administered in the Emergency Department. See MAR. Historians other than the Patient: EMS: [facility]. Care significantly affected by the following chronic conditions: Diabetes, Hypertension. Counseling: I had a detailed discussion with the patient and/or guardian regarding the historical points, exam findings, and any diagnostic results supporting the discharge/admit diagnosis, the need for outpatient follow up, to return to the emergency department if symptoms worsen or persist or if there are any questions or concerns that arise at home. Special discussion: I discussed with the patient/guardian in detail that at this point there is no indication for admission to the hospital. It is understood, however, that if the symptoms persist or worsen the patient needs to return immediately for re-evaluation. ED course: Discussed yesterday's chest x-ray with patient. Patient to follow-up with primary care physician [facility] in 2 to 3 days. Patient understands agrees with plan. All questions were answered. Return precautions discussed include worsening symptoms, or any other concerns. Encourage patient to fill prescriptions but she has not done so at this time. Administered Medications: 14:30 Drug: Albuterol AEPB Inhaler 90 mcg/actuation Aerosol 90 mcg/actuation 3 inhalations aa5 Inhalation once Route: Inhalation; 14:30 Follow up: Response: Medication administered at discharge. aa5 14:30 Drug: predniSONE PO 60 mg PO once Route: PO; aa5 14:30 Follow up: Response: Medication administered at discharge. aa5 14:30 Follow up: Response: Medication administered at discharge. aa5 14:30 Follow up: Response: No adverse reaction aa5 Disposition Summary: 05/19/23 14:20 Discharge Ordered Notes: Location: Home ms3 Condition: Stable ms3 Diagnosis - Acute bronchitis, unspecified ms3 Discharge Instructions: - Discharge Summary Sheet ms3 - Acute Bronchitis, Adult ms3 Forms: - Medication Reconciliation Form ms3 - Thank You Letter ms3 - Antibiotic Education ms3 - Prescription Opioid Use ms3 - Patient Portal Instructions ms3 - Leadership Thank You Letter ms3 Prescriptions: - Ventolin HFA 90 mcg/actuation Inhalation HFA Aerosol Inhaler - inhale 2 inhalation INHALATION route every 4 hours as needed for bronchospasm; ms3 administer via ventilator; 1 unit; Refills: 0, Product Selection Permitted - Prednisone 20 mg Oral Tablet - take 1 tablet ORAL route once daily for 5 days; 5 tablet; Refills: 0, Product ms3 Selection Permitted Signatures: Savannah Millard, RN RN aa5 Feroz Rush DO DO ms3
--- NOTE | 2023-05-19 14:21 | ER ---
Nurse's Notes [facility] Name: Reina Hartley Age: 67 yrs Sex: Female : 1955 Arrival Date: 05/19/2023 Time: 14:18 Bed DX3 Private MD: Diagnosis: Acute bronchitis, unspecified Presentation: 05/18 14:18 Chief complaint: Patient states: "It's my bronchitis again". Pt reports has not filled aa5 her prescriptions prescribed recently. Coronavirus screen: shortness of breath. Ebola Screen: Patient denies travel to an Ebola-affected area in the 21 days before illness onset. Initial Sepsis Screen: Does the patient meet any 2 criteria? No. Patient's initial sepsis screen is negative. Does the patient have a suspected source of infection? No. Patient's initial sepsis screen is negative. Risk Assessment: Do you want to hurt yourself or someone else? Patient reports no desire to harm self or others. Onset of symptoms was May 19, 2023. 14:18 Acuity: ANDREA 3 aa5 14:18 Method Of Arrival: EMS: [facility] aa5 Historical: - Allergies: 14:19 all depression medications; aa5 14:19 Procardia; aa5 - PMHx: 14:19 Arthritis; diabetes mellitus; Hypertensive disorder; Myocardial infarction; aa5 - PSHx: 14:19 Appendectomy; breast augmentation; cardiac stent; Cholecystectomy; Gastric Bypass; aa5 hysterectomy; Left hip; - Immunization history:: Adult Immunizations unknown. - Social history:: Smoking status: Patient reports the use of cigarette tobacco products, smokes one-half pack cigarettes per day. Screenin:18 [facility] ED Fall Risk Assessment (Adult) History of falling in the last 3 months, aa5 including since admission No falls in past 3 months (0 pts) Confusion or Disorientation No (0 pts) Intoxicated or Sedated No (0 pts) Impaired Gait No (0 pts) Mobility Assist Device Used No (0 pt) Altered Elimination No (0 pt) Score/Fall Risk Level 0 - 2 = Low Risk Oriented to surroundings, Maintained a safe environment, Educated pt \\T\\ family on fall prevention, incl call for assistance when getting out of bed. Abuse screen: Denies threats or abuse. Nutritional screening: No deficits noted. Tuberculosis screening: No symptoms or risk factors identified. Assessment: 14:18 General: Appears comfortable, Behavior is calm, cooperative. Pain: Denies pain. Neuro: aa5 Level of Consciousness is awake, alert, obeys commands, Oriented to person, place, time, situation. Cardiovascular: Heart tones S1 S2 present Rhythm is regular. Respiratory: Reports shortness of breath at rest on exertion Airway is patent Respiratory effort is even, unlabored, Respiratory pattern is regular, symmetrical, Breath sounds are clear bilaterally. GI: No signs and/or symptoms were reported involving the gastrointestinal system. : No signs and/or symptoms were reported regarding the genitourinary system. EENT: No signs and/or symptoms were reported regarding the EENT system. Derm: Skin is pink, warm \\T\\ dry. Musculoskeletal: No signs and/or symptoms reported regarding the musculoskeletal system. 14:38 Reassessment: Patient is alert, oriented x 3, equal unlabored respirations, skin aa5 warm/dry/pink. Vital Signs: 14:18 BP 178 / 93; Pulse 100; Resp 20 S; Temp 98(TE); Pulse Ox 100% on R/A; aa5 14:38 BP 168 / 90; Pulse 102; Resp 19 S; Pulse Ox 100% on R/A; aa5 ED Course: 14:18 Patient arrived in ED. aa5 14:18 Feroz Rush DO is Attending Physician. ms3 14:18 Arm band placed on. aa5 14:18 Patient has correct armband on for positive identification. aa5 14:19 Triage completed. aa5 14:30 Savannah Millard, RN is Primary Nurse. aa5 14:38 No provider procedures requiring assistance completed. Patient did not have IV access aa5 during this emergency room visit. Administered Medications: 14:30 Drug: Albuterol AEPB Inhaler 90 mcg/actuation Aerosol 90 mcg/actuation 3 inhalations aa5 Inhalation once Route: Inhalation; 14:30 Follow up: Response: Medication administered at discharge. aa5 14:30 Drug: predniSONE PO 60 mg PO once Route: PO; aa5 14:30 Follow up: Response: Medication administered at discharge. aa5 14:30 Follow up: Response: Medication administered at discharge. aa5 14:30 Follow up: Response: No adverse reaction aa5 Medication: 14:38 VIS not applicable for this client. aa5 Outcome: 14:20 Discharge ordered by . ms3 14:38 Discharged to home ambulatory, escorted by pile driving technician to bus stop aa5 14:38 Condition: stable 14:38 Discharge instructions given to patient, Instructed on discharge instructions, follow up and referral plans. medication usage, Demonstrated understanding of instructions, follow-up care, medications, Prescriptions given X 2, 14:39 Patient left the ED. aa5 Signatures: Savannah Millard RN RN aa5 Feroz Rush, DO ms3
== END ==
LOC: ER 14:20
DX: J20.9 Acute bronchitis, unspecified (principal); I10 Essential (primary) hypertension; E11.9 Type 2 diabetes mellitus without complications; F17.210 Nicotine dependence, cigarettes, uncomplicated; Z98.82 Breast implant status; Z88.8 Allergy status to other drugs, medicaments and biological substances
CPT/HCPCS: 99284

== ENCOUNTER → 2023-05-20 | Emergency (ER) | payer OTHER ==
[~2023-05-20] MED LIST changes: -ALBUTEROL 2.5 MG/3 ML NEB SOL ONE; +ALBUTEROL INHALER 200 PUFF/6.7 GM IH ONE; -IPRATROPIUM BROM 0.5MG/2.5ML ONE
--- NOTE | 2023-05-20 17:36 | ER ---
Nurse's Notes [facility] Name: Reina Hartley Age: 67 yrs Sex: Female : 1955 Arrival Date: 05/20/2023 Time: 17:32 Bed IW1 Private MD: Diagnosis: Acute upper respiratory infection, unspecified Presentation: 05/19 17:35 Chief complaint: Patient states: "I just started feeling more short of breath about an aa5 hour ago". Coronavirus screen: shortness of breath. Ebola Screen: Patient denies travel to an Ebola-affected area in the 21 days before illness onset. Initial Sepsis Screen: Does the patient meet any 2 criteria? HR > 90 bpm. Does the patient have a suspected source of infection? No. Patient's initial sepsis screen is negative. Risk Assessment: Do you want to hurt yourself or someone else? Patient reports no desire to harm self or others. Onset of symptoms was May 20, 2023. 17:35 Method Of Arrival: EMS: [facility] aa5 17:35 Acuity: ANDREA 3 aa5 Triage Assessment: 17:35 General: Appears uncomfortable, Behavior is calm, cooperative. Pain: Denies pain. EENT: aa5 No signs and/or symptoms were reported regarding the EENT system. Neuro: Level of Consciousness is awake, alert, obeys commands, Oriented to person, place, time, situation. Cardiovascular: Heart tones S1 S2 present Rhythm is regular. Respiratory: Reports shortness of breath at rest on exertion Airway is patent Respiratory effort is even, labored, Respiratory pattern is tachypnea Breath sounds with wheezes bilaterally. Onset: The symptoms/episode began/occurred today, the patient has mild shortness of breath. GI: No signs and/or symptoms were reported involving the gastrointestinal system. : No signs and/or symptoms were reported regarding the genitourinary system. Derm: Skin is pink, warm \\T\\ dry. Musculoskeletal: Range of motion: intact in all extremities. Historical: - Allergies: 17:35 all depression medications; aa5 17:35 Procardia; aa5 - PMHx: 17:35 Arthritis; diabetes mellitus; Hypertensive disorder; Myocardial infarction; aa5 - PSHx: 17:35 Appendectomy; breast augmentation; cardiac stent; Cholecystectomy; Gastric Bypass; aa5 hysterectomy; Left hip; - Immunization history:: Adult Immunizations unknown. - Social history:: Smoking status: Patient reports the use of cigarette tobacco products. Screenin:48 [facility] ED Fall Risk Assessment (Adult) History of falling in the last 3 months, aa5 including since admission No falls in past 3 months (0 pts) Confusion or Disorientation No (0 pts) Intoxicated or Sedated No (0 pts) Impaired Gait No (0 pts) Mobility Assist Device Used No (0 pt) Altered Elimination No (0 pt) Score/Fall Risk Level 0 - 2 = Low Risk Oriented to surroundings, Maintained a safe environment, Educated pt \\T\\ family on fall prevention, incl call for assistance when getting out of bed. Abuse screen: Denies threats or abuse. Nutritional screening: No deficits noted. Tuberculosis screening: No symptoms or risk factors identified. Assessment: 17:48 Reassessment: Patient is alert, oriented x 3, equal unlabored respirations, skin aa5 warm/dry/pink. 17:48 Respiratory: SOB has improved. aa5 Vital Signs: 17:35 BP 140 / 87; Pulse 115; Resp 26 S; Temp 97.6(TE); Pulse Ox 99% on R/A; aa5 17:46 BP 138 / 90; Pulse 102; Resp 20 S; Temp 97.6(TE); Pulse Ox 99% on R/A; aa5 ED Course: 17:32 Patient arrived in ED. aa5 17:33 Feroz Rush DO is Attending Physician. ms3 17:33 Anup Holder DO is Referral Physician. ms3 17:35 Arm band placed on. aa5 17:35 Patient has correct armband on for positive identification. aa5 17:36 Triage completed. aa5 17:46 Savannah Millard, RN is Primary Nurse. aa5 17:48 No provider procedures requiring assistance completed. Patient did not have IV access aa5 during this emergency room visit. Administered Medications: 17:45 Drug: Albuterol AEPB Inhaler 90 mcg/actuation Aerosol 90 mcg/actuation 2 inhalations aa5 Inhalation once Route: Inhalation; 17:45 Drug: predniSONE PO 60 mg PO once Route: PO; aa5 Medication: 17:48 VIS not applicable for this client. aa5 Outcome: 17:33 Discharge ordered by . ms3 17:48 Discharged to home ambulatory, escorted by security staff aa5 17:48 Condition: improved 17:48 Discharge instructions given to patient, Instructed on discharge instructions, follow up and referral plans. medication usage, Demonstrated understanding of instructions, follow-up care, medications, Prescriptions given X 1, 17:49 Patient left the ED. aa5 Signatures: Savannah Millard, RN RN aa5 Feroz Rush, DO ms3
--- NOTE | 2023-05-20 17:49 | EDPHYS ---
Physician Documentation [facility] Name: Reina Hartley Age: 67 yrs Sex: Female : 1955 Arrival Date: 05/20/2023 Time: 17:32 Bed IW1 Private MD: ED Physician Feroz Rush HPI: 05/19 17:33 This 67 yrs old Female presents to ER via EMS with complaints of Shortness Of Breath. ms3 17:33 67-year-old female with past medical history of arthritis, diabetes, hypertension, ms3 myocardial infarction presents to the emergency department via [facility] for cough x 1 week. Patient denies pain. Patient denies any alleviating or inciting factors. Historical: - Allergies: 17:35 all depression medications; aa5 17:35 Procardia; aa5 - PMHx: 17:35 Arthritis; diabetes mellitus; Hypertensive disorder; Myocardial infarction; aa5 - PSHx: 17:35 Appendectomy; breast augmentation; cardiac stent; Cholecystectomy; Gastric Bypass; aa5 hysterectomy; Left hip; - Immunization history:: Adult Immunizations unknown. - Social history:: Smoking status: Patient reports the use of cigarette tobacco products. ROS: 17:33 Constitutional: Negative for fever, and chills. Neck: Negative for injury, pain, and ms3 swelling, Cardiovascular: Negative for chest pain, and palpitations. 17:33 MS/Extremity: Negative for injury and deformity, Skin: Negative for injury, rash, and discoloration, 17:33 Respiratory: Positive for cough, shortness of breath, Exam: 17:33 Constitutional: This is a well developed, well nourished patient who is awake, alert, ms3 and in no acute distress. Head/Face: Normocephalic, atraumatic. Neck: Trachea midline, no cervical lymphadenopathy. Supple, full range of motion without nuchal rigidity, or vertebral point tenderness. No Meningismus. Chest/axilla: Normal chest wall appearance and motion. Nontender with no deformity. Cardiovascular: Regular rate and rhythm with a normal S1 and S2. No gallops, murmurs, or rubs. Normal PMI, no JVD. No pulse deficits. Respiratory: Lungs have equal breath sounds bilaterally, clear to auscultation and percussion. No rales, rhonchi or wheezes noted. No increased work of breathing, no retractions or nasal flaring. Abdomen/GI: Soft, non-tender, with normal bowel sounds. No distension or tympany. No guarding or rebound. No evidence of tenderness throughout. Skin: Warm, dry with normal turgor. Normal color with no rashes, no lesions, and no evidence of cellulitis. MS/ Extremity: Pulses equal, no cyanosis. Neurovascular intact. Full, normal range of motion. Vital Signs: 17:35 BP 140 / 87; Pulse 115; Resp 26 S; Temp 97.6(TE); Pulse Ox 99% on R/A; aa5 17:46 BP 138 / 90; Pulse 102; Resp 20 S; Temp 97.6(TE); Pulse Ox 99% on R/A; aa5 MDM: 17:33 Patient medically screened. ms3 17:33 Differential diagnosis: asthma, Bronchitis Upper respiratory infect. Antibiotic ms3 administration: Not indicated. Data reviewed: vital signs, nurses notes, and as a result, I will discharge patient. I considered the following discharge prescriptions or medication management in the emergency department Medications were administered in the Emergency Department. See MAR. Counseling: I had a detailed discussion with the patient and/or guardian regarding the historical points, exam findings, and any diagnostic results supporting the discharge/admit diagnosis, the need for outpatient follow up, to return to the emergency department if symptoms worsen or persist or if there are any questions or concerns that arise at home. Special discussion: I discussed with the patient/guardian in detail that at this point there is no indication for admission to the hospital. It is understood, however, that if the symptoms persist or worsen the patient needs to return immediately for re-evaluation. ED course: Discussed necessity of patient to fill her prescriptions. Patient understands agrees with plan. Patient to follow-up with [facility] in 2 to 3 days. All questions were answered. Return precautions discussed include worsening symptoms, or any other concerns. Administered Medications: 17:45 Drug: Albuterol AEPB Inhaler 90 mcg/actuation Aerosol 90 mcg/actuation 2 inhalations aa5 Inhalation once Route: Inhalation; 17:45 Drug: predniSONE PO 60 mg PO once Route: PO; aa5 Disposition: 18:53 Chart complete. ms3 Disposition Summary: 05/20/23 17:33 Discharge Ordered Notes: Location: Home ms3 Condition: Stable ms3 Diagnosis - Acute upper respiratory infection, unspecified ms3 Followup: ms3 - With: Anup Holder DO - When: 2 - 3 days - Reason: Recheck today's complaints Discharge Instructions: - Discharge Summary Sheet ms3 - Upper Respiratory Infection, Adult ms3 Forms: - Medication Reconciliation Form ms3 - Thank You Letter ms3 - Antibiotic Education ms3 - Prescription Opioid Use ms3 - Patient Portal Instructions ms3 - Leadership Thank You Letter ms3 Prescriptions: - Claritin 10 mg Oral Tablet - take 1 tablet ORAL route once daily As needed; 30 tablet; Refills: 0, Product ms3 Selection Permitted Signatures: Savannah Millard RN RN aa5 Feroz Rush DO DO ms3
[2023-05-20 17:59] VITALS: BP 138/90; TEMP 97.6; O2SAT 99
== END ==
LOC: ER 17:35
DX: J06.9 Acute upper respiratory infection, unspecified (principal); E11.9 Type 2 diabetes mellitus without complications; I10 Essential (primary) hypertension; Z72.0 Tobacco use; Z88.8 Allergy status to other drugs, medicaments and biological substances; Z98.82 Breast implant status; Z95.818 Presence of other cardiac implants and grafts
CPT/HCPCS: 99284; J7512

== ENCOUNTER 2023-05-22 16:42 | Observation (INO) | payer OTHER ==
--- NOTE | 2023-05-22 18:02 | RAD REPORT ---
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 No acute fracture visualized
--- NOTE | 2023-05-22 18:03 | RAD REPORT ---
EXAM DESCRIPTION: RAD - Knee Left 3 View - 05/22/2023 5:32 pm CLINICAL HISTORY: Left knee pain FINDINGS: Subacute minimally displaced fracture patella. Old fibular fracture No dislocation seen
--- NOTE | 2023-05-22 18:05 | RAD REPORT ---
EXAM DESCRIPTION: RAD - Foot Right 3 View - 05/22/2023 5:32 pm CLINICAL HISTORY: Right foot pain status post injury FINDINGS: Plate and screws fuse the mid and proximal forefoot. No acute fracture or dislocation seen Osteoporosis
--- NOTE | 2023-05-22 18:05 | RAD REPORT ---
EXAM DESCRIPTION: RAD - Knee Right 3 View - 05/22/2023 5:32 pm CLINICAL HISTORY: Right knee pain status post injury FINDINGS: No fracture or dislocation is seen.
[2023-05-22 18:09] LABS: Protime INR 1.16
[2023-05-22 18:10] LABS: Specific Gravity 1.005 (1.005-1.030); Urine Bacteria <20 /HPF (<20); Urine Bilirubin NEGATIVE (Negative); Urine Blood Negative (Negative); Urine Clarity Extremely Turbid (Clear); Urine Color Light-Yellow (Yellow); Urine Glucose NEGATIVE (Negative); Urine Protein NEGATIVE (Negative); Urine RBC <5 /HPF (None Seen); Urine Urobilinogen Normal (Normal); Urine pH 7.5 (5.0-7.0)
[2023-05-22 18:15] LABS: Absolute Lymphocytes (CBC) 1.3 K/uL (0.7-4.9); Basophils % 0.6 % (0-1.3); Hematocrit 24.5 % (36.0-45.0); Hemoglobin 8.1 g/dL (12.0-15.0); Lymphocytes % 21.3 % (15.3-44.8); MPV 7.5 fL (7.6-11.3); Platelets 304 thou/uL (152-406); RBC Red Blood Cell Count 3.19 M/uL (3.86-4.86)
[2023-05-22 18:31] LABS: Albumin 3.2 g/dL (3.4-5.0); Anion Gap 9.5 mEq/L (5.0-15.0); Bilirubin Direct 0.3 mg/dL (0-0.2); Bilirubin Indirect, Calculated 0.3 mg/dL (0.2-0.8); Bilirubin Total 0.6 mg/dL (0.2-1.0); Globulin 3.2 g/dL (2.3-3.5); Magnesium 2.1 mg/dL (1.6-2.4); Protein, Total 6.4 g/dL (6.4-8.2); Troponin High Sensitivity 21.7 pg/mL (<58.9)
[2023-05-22 19:12] LABS: Potassium 2.5 mEq/L (3.5-5.1)
[2023-05-22] MEDS ORDERED: IPRATROPIUM BROM 0.5MG/2.5ML ONE (19:26)
[2023-05-22] MEDS ORDERED: METHYLPREDNISOLONE 125 MG INJ ONE (19:26)
[2023-05-22] MEDS ORDERED: NS KCL 20MEQ 1,000 ML IV ONE (19:27)
[2023-05-22] MEDS ORDERED: LEVALBUTEROL 1.25 MG/3 ML NEB ONE (19:27)
[2023-05-22] MEDS ORDERED: NA CHLORIDE 0.9% 0 ML ONE (19:27)
[2023-05-22] MEDS ORDERED: POTASSIUM 25 MEQ EFFERV TAB ONE (19:27)
[2023-05-22] MEDS ORDERED: Levofloxacin500mg IV 500 MG/100 ML BAG IV ONE (19:27)
--- NOTE | 2023-05-22 19:27 | EDPHYS ---
Physician Documentation [facility] Name: Reina Hartley Age: 67 yrs Sex: Female : 1955 Arrival Date: 05/22/2023 Time: 16:42 Bed 7 Private MD: ED Physician Elias Gamez HPI: 05/21 18:51 This 67 yrs old Female presents to ER via EMS with complaints of Fall Injury. savage Historical: - Allergies: 16:55 all depression medications; hb 16:55 Procardia; hb - PMHx: 16:55 Arthritis; diabetes mellitus; Hypertensive disorder; Myocardial infarction; hb 17:41 Atrial fibrillation; as6 - PSHx: 16:55 Appendectomy; breast augmentation; cardiac stent; Cholecystectomy; Gastric Bypass; hb hysterectomy; Left hip; - Immunization history:: Adult Immunizations up to date. - Social history:: Smoking status: Patient reports the use of cigarette tobacco products. - Immunization history: Last tetanus immunization: unknown. ROS: 18:54 Constitutional: Negative for fever, chills, and weight loss, Eyes: Negative for injury, savage pain, redness, and discharge, ENT: Negative for injury, pain, and discharge, Neck: Negative for injury, pain, and swelling, Cardiovascular: Negative for chest pain, palpitations, and edema, Abdomen/GI: Negative for abdominal pain, nausea, vomiting, diarrhea, and constipation, Back: Negative for injury and pain, : Negative for injury, bleeding, discharge, and swelling, MS/Extremity: Negative for injury and deformity, Neuro: Negative for headache, weakness, numbness, tingling, and seizure, Psych: Negative for depression, anxiety, suicide ideation, homicidal ideation, and hallucinations, Allergy/Immunology: Negative for hives, rash, and allergies, Endocrine: Negative for neck swelling, polydipsia, polyuria, polyphagia, and marked weight changes, Hematologic/Lymphatic: Negative for swollen nodes, abnormal bleeding, and unusual bruising, 18:54 Respiratory: Positive for cough, shortness of breath, wheezing, expiratory, 18:54 MS/extremity: Positive for abrasion, decreased range of motion, pain, of the right arm, right leg and left leg, Exam: 18:58 Constitutional: This is a well developed, well nourished patient who is awake, alert, savage and in no acute distress. Head/Face: Normocephalic, atraumatic. Eyes: Pupils equal round and reactive to light, extra-ocular motions intact. Lids and lashes normal. Conjunctiva and sclera are non-icteric and not injected. Cornea within normal limits. Periorbital areas with no swelling, redness, or edema. ENT: Nares patent. No nasal discharge, no septal abnormalities noted. Tympanic membranes are normal and external auditory canals are clear. Oropharynx with no redness, swelling, or masses, exudates, or evidence of obstruction, uvula midline. Mucous membranes moist. Neck: Trachea midline, no thyromegaly or masses palpated, and no cervical lymphadenopathy. Supple, full range of motion without nuchal rigidity, or vertebral point tenderness. No Meningismus. Chest/axilla: Normal chest wall appearance and motion. Nontender with no deformity. No lesions are appreciated. Abdomen/GI: Soft, non-tender, with normal bowel sounds. No distension or tympany. No guarding or rebound. No evidence of tenderness throughout. Back: No spinal tenderness. No costovertebral tenderness. Full range of motion. Female : Normal external genitalia. Neuro: Awake and alert, GCS 15, oriented to person, place, time, and situation. Cranial nerves II-XII grossly intact. Motor strength 5/5 in all extremities. Sensory grossly intact. Cerebellar exam normal. Normal gait. Psych: Awake, alert, with orientation to person, place and time. Behavior, mood, and affect are within normal limits. 18:58 Cardiovascular: Rate: Vital Signs: 16:45 BP 158 / 88; Pulse 102; Resp 15; Pulse Ox 99% on R/A; ko1 16:50 BP 162 / 96; Pulse 108; Resp 18; Temp 98.3; Pulse Ox 100% on R/A; Weight 58.97 kg; hb Height 5 ft. 2 in. ; Pain 8/10; 18:34 BP 138 / 76; Pulse 99; Resp 15; Pulse Ox 98% ; ko1 19:00 BP 144 / 89; Pulse 104; Resp 16 S; Pulse Ox 100% on R/A; jw7 20:00 BP 138 / 105; Pulse 102; Resp 15 S; Pulse Ox 100% on R/A; jw7 21:00 BP 135 / 100; Pulse 101; Resp 15 S; Pulse Ox 100% on R/A; jw7 16:50 Body Mass Index 23.78 (58.97 kg, 157.48 cm) hb 16:50 Pain Scale: Adult hb Christoph Coma Score: 16:55 Eye Response: spontaneous(4). Motor Response: obeys commands(6). Verbal Response: ko1 oriented(5). Total: 15. Trauma Score (Adult): 16:55 Eye Response: spontaneous(1); Verbal Response: oriented(1); Motor Response: obeys ko1 commands(2); Systolic BP: > 89 mm Hg(4); Respiratory Rate: 10 to 29 per min(4); [place] Score: 15; Trauma Score: 12 MDM: 16:44 Patient medically screened. savage 19:28 Differential diagnosis: abrasion, contusion, fracture, laceration, multiple trauma, savage sprain, strain. Data reviewed: vital signs, nurses notes, lab test result(s), EKG, radiologic studies, plain films. Consideration of Admission/Observation Patient was admitted/placed on observation. Escalation of care including admission/observation considered. I considered the following discharge prescriptions or medication management in the emergency department Medications were administered in the Emergency Department. See MAR. Independent interpretation of the following test(s) in the Emergency Department EKG: See my EKG interpretation above. Test considered but Not performed: Ultrasound NO 2 D ECHO. Historians other than the Patient: EMS: EMS WELL INFORMED. Care significantly affected by the following chronic conditions: Diabetes, Hypertension, Obesity, A FIB, PR , HOMELESSNESS. Care significantly affected by the following Social Determinants of Health: Poor access to transportation, Inadequate housing, Problems related to primary support group. Counseling: I had a detailed discussion with the patient and/or guardian regarding the historical points, exam findings, and any diagnostic results supporting the discharge/admit diagnosis, lab results, radiology results, the need for further work-up and treatment in the hospital. 05/21 16:59 Order name: Basic Metabolic Panel; Complete Time: 19:16 [facility] 05/21 16:59 Order name: CBC with Diff; Complete Time: 18:38 [facility] 05/21 16:59 Order name: LFT's; Complete Time: 19:16 savage 05/21 16:59 Order name: Magnesium; Complete Time: 19:16 05/21 16:59 Order name: NT PRO-BNP; Complete Time: 19:16 [facility] 05/21 16:59 Order name: PT-INR; Complete Time: 18:38 [facility] 05/21 16:59 Order name: Troponin HS; Complete Time: 19:16 savage 05/21 16:59 Order name: Lipase; Complete Time: 19:16 savage 05/21 16:59 Order name: Urinalysis w/ reflexes; Complete Time: 18:38 savage 05/21 18:13 Order name: Urine Culture EDMS 05/21 18:53 Order name: Blood Culture Adult (2) [facility] 05/21 18:53 Order name: Lactate w/ 2H reflex if indic. savage 05/21 18:58 Order name: Type And Screen [facility] 05/21 21:30 Order name: Basic Metabolic Panel EDMS 05/21 21:30 Order name: Basic Metabolic Panel EDMS 05/21 21:30 Order name: Basic Metabolic Panel EDMS 05/21 21:30 Order name: CBC with Automated Diff EDMS 05/21 21:30 Order name: CBC with Automated Diff EDMS 05/21 21:30 Order name: CBC with Automated Diff EDMS 05/21 21:30 Order name: Magnesium EDMS 05/21 21:30 Order name: Magnesium EDMS 05/22 03:56 Order name: Iron EDMS 05/22 03:56 Order name: Transferrin Sat/Iron Binding EDMS 05/22 04:58 Order name: Manual Differential EDMS 05/21 16:59 Order name: XRAY Chest (1 view) 05/21 16:59 Order name: CT Traumagram (Head C Spine CAP W Con) savage 05/21 16:59 Order name: Elbow Right 3 View XRAY; Complete Time: 18:38 savage 05/21 16:59 Order name: Knee Left 3 View XRAY; Complete Time: 18:38 [facility] 05/21 16:59 Order name: Hip Right 2 View XRAY 05/21 16:59 Order name: Knee Right 3 View XRAY; Complete Time: 18:38 savage 05/21 16:59 Order name: Pelvis XRAY 05/21 16:59 Order name: Foot Right 3 View XRAY; Complete Time: 18:38 [facility] 05/21 16:59 Order name: EKG; Complete Time: 17:00 05/21 16:59 Order name: Cardiac monitoring; Complete Time: 17:03 [facility] 05/21 16:59 Order name: EKG - Nurse/Tech; Complete Time: 17:38 [facility] 05/21 16:59 Order name: IV Saline Lock; Complete Time: 17:12 [facility] 05/21 16:59 Order name: Labs collected and sent; Complete Time: 17:38 [facility] 05/21 16:59 Order name: O2 Per Protocol; Complete Time: 17:03 [facility] 05/21 16:59 Order name: O2 Sat Monitoring; Complete Time: 17:03 [facility] 05/21 18:45 Order name: IV Saline Lock - Large Bore; Complete Time: 18:52 [facility] Administered Medications: 18:45 Discontinued: ns 0.9% 1000 ml IV at 125 ml/hr continuous savage 17:12 Drug: NS 0.9% IV 500 ml IV at bolus once Route: IV; Rate: bolus; Site: left forearm; ko1 17:15 Drug: NS 0.9% IV 1000 ml IV at 125 ml/hr continuous Route: IV; Rate: 125 ml/hr; Site: ko1 left forearm; 20:51 Drug: Potassium PO Effervescent Tablet 50 mEq PO once; dissolve in 4 ounces of water or jw7 juice Route: PO; 20:51 Drug: Potassium Chloride IV 20 mEq IV at per protocol once; administer over 1-2 hours jw7 Route: IV; Rate: per protocol; Site: right forearm; 20:51 Drug: levofloxacin IVPB 500 mg 100 ml IVPB once over 60 mins Volume: 100 ml; Route: jw7 IVPB; Infused Over: 60 mins; Site: left forearm; 20:51 Drug: MethylPrednisoLONE IVP 125 mg IVP once Route: IVP; Site: left forearm; jw7 20:51 Drug: Levalbuterol Inhalation 2.5 mg Inhalation once Route: Inhalation; jw7 20:51 Drug: Ipratropium Inhalation Aerosol 0.5 mg Inhalation once; Every 20 min for a total jw7 of 3 treatments x3 Route: Inhalation; 20:51 Drug: NS 0.9% with KCl IV 20 mEq/L 1000 ml IV at 125 ml/hr continuous Route: IV; Rate: jw7 125 ml/hr; Site: right forearm; 20:51 Drug: Pantoprazole IVP 40 mg IVP once Route: IVP; Site: left forearm; jw7 Disposition Summary: 05/22/23 19:26 Hospitalization Ordered Notes: Hospitalization Status: Inpatient Admission [facility] Provider: Krishna Leigh cha Condition: Fair savage Problem: new savage Symptoms: have improved savage Bed/Room Type: Standard savage Location: Telemetry/MedSurg (Inpatient)(05/23/23 07:41) bd Room Assignment: 410(05/23/23 07:41) bd Diagnosis - Anemia, unspecified savage - Persistent atrial fibrillation - with RVR savage - Fall on same level, unspecified savage - Fracture of patella - LEFT SUBACUTE savage - Contusion of right elbow - NON UNION FRACTURE savage - Hypokalemia - 2.5 savage - COPD/ Chronic obstructive pulmonary disease with (acute) exacerbation savage - Homelessness savage Forms: - Medication Reconciliation Form savage - SBAR form savage - Leadership Thank You Letter savage Signatures: Dispatcher [employer] EDVijaya Zurita Corey, MD MD cha Garcia, Cindy, RN RN cg Lissett Chavis RN WALI Benito Levine RN RN as6 Karrie Azevedo RN RN jw7 Noelle Stiles RN RN ko1 Corrections: (The following items were deleted from the chart) 21:15 19:26 Telemetry/MedSurg (Inpatient) savage cg 21:15 19:26 savage cg 05/22 07:41 05/21 21:15 [facility] ER HOLD cg bd 05/22 07:41 05/21 21:15 ERHOLD- cg bd
--- NOTE | 2023-05-22 19:27 | ER ---
Nurse's Notes [facility] Name: Reina Hartley Age: 67 yrs Sex: Female : 1955 Arrival Date: 05/22/2023 Time: 16:42 Bed 7 Private MD: Diagnosis: Anemia, unspecified;Persistent atrial fibrillation-with RVR;Fall on same level, unspecified;Fracture of patella-LEFT SUBACUTE;Contusion of right elbow-NON UNION FRACTURE;Hypokalemia-2.5;COPD/ Chronic obstructive pulmonary disease with (acute) exacerbation;Homelessness Presentation: 05/21 16:50 Chief complaint: EMS states: Slipped on bathroom floor, landed on right side, c/o pain hb in right elbow, right hip, right knee, right foot, and left knee. Coronavirus screen: At this time, the client does not indicate any symptoms associated with coronavirus-19. Ebola Screen: No symptoms or risks identified at this time. Initial Sepsis Screen: Does the patient meet any 2 criteria? No. Patient's initial sepsis screen is negative. Does the patient have a suspected source of infection? No. Patient's initial sepsis screen is negative. Risk Assessment: Do you want to hurt yourself or someone else? Patient reports no desire to harm self or others. Onset of symptoms was May 22, 2023. Mechanism of Injury: Fall from standing position. Transition of care: patient was not received from another setting of care. 16:50 Method Of Arrival: EMS: [facility] hb 16:51 Acuity: ANDREA 3 hb 16:51 Care prior to arrival: Splint applied. Medication(s) given: Ketamine 10 mg, Zofran 2 hb mg, NS 500 mls IV initiated. 20 GA, in the left forearm. 16:55 Trauma event details: Injury occurred in the [facility], Injury occurred: in a ko1 public building. Injury occurred: May 22, 2023 Injury occurred at: 16:00. 19:00 Care prior to arrival: None. jw7 19:00 Mechanism of Injury: Fall from standing position. 7 Triage Assessment: 16:55 General: Appears in no apparent distress. Behavior is calm, cooperative. Pain: Pain hb currently is 8 out of 10 on a pain scale. Neuro: Level of Consciousness is awake, alert, obeys commands, Oriented to person, place, time, situation. Cardiovascular: Patient's skin is warm and dry. Respiratory: Respiratory effort is even, unlabored, Respiratory pattern is regular, symmetrical. Musculoskeletal: Reports pain in right elbow, right hip, right knee, right foot and left knee. Trauma Activation: Not Applicable Physician: ED Physician; Name: ; Notified At: ; Arrived At: Physician: General Surgeon; Name: ; Notified At: ; Arrived At: Physician: Radiology; Name: ; Notified At: ; Arrived At: Physician: Respiratory; Name: ; Notified At: ; Arrived At: Physician: Lab; Name: ; Notified At: ; Arrived At: Historical: - Allergies: 16:55 all depression medications; hb 16:55 Procardia; hb - PMHx: 16:55 Arthritis; diabetes mellitus; Hypertensive disorder; Myocardial infarction; hb 17:41 Atrial fibrillation; as6 - PSHx: 16:55 Appendectomy; breast augmentation; cardiac stent; Cholecystectomy; Gastric Bypass; hb hysterectomy; Left hip; - Immunization history:: Adult Immunizations up to date. - Social history:: Smoking status: Patient reports the use of cigarette tobacco products. - Immunization history: Last tetanus immunization: unknown. Screenin:45 [facility] ED Fall Risk Assessment (Adult) History of falling in the last 3 months, ko1 including since admission Yes- single mechanical fall (1 pt) Confusion or Disorientation No (0 pts) Intoxicated or Sedated No (0 pts) Impaired Gait No (0 pts) Mobility Assist Device Used No (0 pt) Altered Elimination No (0 pt) Score/Fall Risk Level 0 - 2 = Low Risk Oriented to surroundings, Maintained a safe environment, Educated pt \T\ family on fall prevention, incl call for assistance when getting out of bed, Assessed \T\ reinforced patient's understanding of fall precautions, Provided non-skid footwear, Hourly rounding (assess needs \T\ fall precautionary measures) done, Used ambulatory aids as needed (educated on \T\ assisted with), Used gait belt as appropriate. Abuse screen: Denies threats or abuse. Denies injuries from another. Nutritional screening: No deficits noted. Tuberculosis screening: No symptoms or risk factors identified. Primary Survey: 16:55 NO uncontrolled hemorrhage observed. A: The client is awake and alert. The airway is ko1 patent. The client is alert. Airway: patent, No supplemental oxygen in use on arrival. Oral cavity: clear, Trachea midline. Breathing/Chest: Spontaneous respiratory effort, equal unlabored respirations, breath sounds clear bilaterally, regular pattern, symmetrical chest rise and fall. Respiratory effort: spontaneous, unlabored, Breath sounds: clear, bilaterally. Respiratory pattern: regular, Chest inspection: symmetrical rise and fall of the chest. Circulation: No external hemorrhage present. Regular and strong central pulse, skin warm/dry/normal color. Hemorrhage: No external hemorrhage noted. Pulses: palpable right radial artery, right dorsalis pedis artery, left radial artery and left dorsalis pedis artery. Disability Pupils are equal, round, reactive to light and accommodation. Client is alert. Exposure/Environment: There is no evidence of uncontrolled external bleeding. Obvious injury(ies) are noted at this time: abrasion to right elbow. 19:00 Reassessment Alertness and Airway: Awake and alert. The airway is patent. Breathing: jw7 Spontaneous respiratory effort, equal unlabored respirations, breath sounds clear bilaterally, regular pattern with symmetrical chest rise and fall. Circulation: No external hemorrhage noted. Regular and strong central pulse, skin warm/dry/normal color. Disability: Pupils Pupils are equal, round, reactive to light and accomodation. Alert. Assessment: 16:45 General: Appears in no apparent distress. unkempt, Behavior is appropriate for age. ko1 Pain: Complains of pain in right elbow, right hip, right knee, right ankle. Neuro: No deficits noted. Cardiovascular: No deficits noted. Respiratory: Reports cough that is non-productive. GI: No deficits noted. : No deficits noted. EENT: No deficits noted. Derm: Reports pain that is 3 out of 10 on a pain scale. Musculoskeletal: Circulation, motion, and sensation intact. Capillary refill < 3 seconds, abrasion to right elbow. Injury Description: Abrasion sustained to right elbow. 19:00 General: Appears in no apparent distress. comfortable, unkempt, Behavior is calm, jw7 cooperative. 19:00 Pain: Complains of pain in right elbow Pain does not radiate. Pain currently is 3 out jw7 of 10 on a pain scale. Quality of pain is described as aching, Pain began suddenly, Is continuous. Neuro: Level of Consciousness is awake, alert, obeys commands, Oriented to person, place, time, situation. Cardiovascular: Heart tones S1 S2 present Capillary refill < 3 seconds Clubbing of nail beds is absent JVD is absent Patient's skin is warm and dry. Respiratory: Airway is patent Trachea midline Respiratory effort is even, unlabored, Respiratory pattern is regular, symmetrical. GI: Abdomen is flat, non-distended, Bowel sounds present X 4 quads. Abd is soft and non tender X 4 quads. : No deficits noted. No signs and/or symptoms were reported regarding the genitourinary system. EENT: No deficits noted. No signs and/or symptoms were reported regarding the EENT system. Derm: Skin is fragile, Skin is dry, Skin is normal, Skin temperature is warm Reports pain that is 3 out of 10 on a pain scale. Derm: Abrasion noted to right elbow. Musculoskeletal: Circulation, motion, and sensation intact. Range of motion: intact in all extremities. 20:00 Reassessment: Patient appears in no apparent distress at this time. No changes from jw7 previously documented assessment. Patient and/or family updated on plan of care and expected duration. Pain level reassessed. Patient is alert, oriented x 3, equal unlabored respirations, skin warm/dry/pink. 21:00 Reassessment: Patient appears in no apparent distress at this time. No changes from jw7 previously documented assessment. Patient and/or family updated on plan of care and expected duration. Pain level reassessed. Patient is alert, oriented x 3, equal unlabored respirations, skin warm/dry/pink. Vital Signs: 16:45 BP 158 / 88; Pulse 102; Resp 15; Pulse Ox 99% on R/A; ko1 16:50 BP 162 / 96; Pulse 108; Resp 18; Temp 98.3; Pulse Ox 100% on R/A; Weight 58.97 kg; hb Height 5 ft. 2 in. ; Pain 8/10; 18:34 BP 138 / 76; Pulse 99; Resp 15; Pulse Ox 98% ; ko1 19:00 BP 144 / 89; Pulse 104; Resp 16 S; Pulse Ox 100% on R/A; jw7 20:00 BP 138 / 105; Pulse 102; Resp 15 S; Pulse Ox 100% on R/A; jw7 21:00 BP 135 / 100; Pulse 101; Resp 15 S; Pulse Ox 100% on R/A; jw7 16:50 Body Mass Index 23.78 (58.97 kg, 157.48 cm) hb 16:50 Pain Scale: Adult hb Christoph Coma Score: 16:55 Eye Response: spontaneous(4). Motor Response: obeys commands(6). Verbal Response: ko1 oriented(5). Total: 15. Trauma Score (Adult): 16:55 Eye Response: spontaneous(1); Verbal Response: oriented(1); Motor Response: obeys ko1 commands(2); Systolic BP: > 89 mm Hg(4); Respiratory Rate: 10 to 29 per min(4); [place] Score: 15; Trauma Score: 12 ED Course: 16:44 Patient arrived in ED. jr12 16:44 Elias Gamez MD is Attending Physician. savage 16:45 Patient has correct armband on for positive identification. Allergy band placed. Fall ko1 risk band placed. Placed in gown. Bed in low position. Call light in reach. Side rails up X2. Door closed. 16:45 Maintain EMS IV. Dressing intact. Good blood return noted. Site clean \T\ dry. Gauge \T\ ko 1 site: 20g right FA. 16:51 Thermoregulation: warm blanket given to patient. hb 16:55 Triage completed. hb 16:55 Arm band placed on. hb 16:55 Patient maintains SpO2 saturation greater than 95% on room air. ko1 16:56 Client placed on continuous cardiac and pulse oximetry monitoring. NIBP monitoring hb applied. rn hematology on. Pulse ox on. NIBP on. 17:06 Noelle Stiles, RN is Primary Nurse. ko1 17:33 XRAY Chest (1 view) In Process Unspecified. EDMS 17:33 Elbow Right 3 View XRAY In Process Unspecified. EDMS 17:34 Knee Left 3 View XRAY In Process Unspecified. EDMS 17:34 Hip Right 2 View XRAY In Process Unspecified. EDMS 17:34 Knee Right 3 View XRAY In Process Unspecified. EDMS 17:34 Pelvis XRAY In Process Unspecified. EDMS 17:34 Foot Right 3 View XRAY In Process Unspecified. EDMS 17:38 Basic Metabolic Panel Sent. ko1 17:38 CBC with Diff Sent. ko1 17:38 LFT's Sent. ko1 17:38 Magnesium Sent. ko1 17:38 NT PRO-BNP Sent. ko1 17:38 PT-INR Sent. ko1 17:38 Troponin HS Sent. ko1 17:39 EKG done, by ED staff, reviewed by Elias Gamez MD. hb 18:32 Thermoregulation: warm blanket given to patient. hb 19:00 Patient requests food. as6 19:00 Provided Education on: CORRECT USE OF CALL LIGHT. jw7 19:00 No provider procedures requiring assistance completed. jw7 19:00 Thermoregulation: warm blanket given to patient. jw7 19:15 Patient requests food. Patient requests liquids. as6 19:17 CT Traumagram (Head C Spine CAP W Con) In Process Unspecified. EDMS 19:21 Krishna Leigh MD is Hospitalizing Provider. savage 20:00 Patient requests liquids. as6 20:10 Inserted saline lock: 22 gauge in right forearm, using aseptic technique. Blood jw7 collected. 20:10 Initial lab(s) drawn, by mo, sent to lab. First set of blood cultures drawn by me. jw7 20:25 Second set of blood cultures drawn by me. jw7 21:00 Patient requests food. as6 21:00 Thermoregulation: warm blanket given to patient. as6 21:30 Patient admitted, IV remains in place. jw7 Administered Medications: 18:45 Discontinued: ns 0.9% 1000 ml IV at 125 ml/hr continuous savage 17:12 Drug: NS 0.9% IV 500 ml IV at bolus once Route: IV; Rate: bolus; Site: left forearm; ko1 17:15 Drug: NS 0.9% IV 1000 ml IV at 125 ml/hr continuous Route: IV; Rate: 125 ml/hr; Site: ko1 left forearm; 20:51 Drug: Potassium PO Effervescent Tablet 50 mEq PO once; dissolve in 4 ounces of water or jw7 juice Route: PO; 20:51 Drug: Potassium Chloride IV 20 mEq IV at per protocol once; administer over 1-2 hours jw7 Route: IV; Rate: per protocol; Site: right forearm; 20:51 Drug: levofloxacin IVPB 500 mg 100 ml IVPB once over 60 mins Volume: 100 ml; Route: jw7 IVPB; Infused Over: 60 mins; Site: left forearm; 20:51 Drug: MethylPrednisoLONE IVP 125 mg IVP once Route: IVP; Site: left forearm; jw7 20:51 Drug: Levalbuterol Inhalation 2.5 mg Inhalation once Route: Inhalation; jw7 20:51 Drug: Ipratropium Inhalation Aerosol 0.5 mg Inhalation once; Every 20 min for a total jw7 of 3 treatments x3 Route: Inhalation; 20:51 Drug: NS 0.9% with KCl IV 20 mEq/L 1000 ml IV at 125 ml/hr continuous Route: IV; Rate: jw7 125 ml/hr; Site: right forearm; 20:51 Drug: Pantoprazole IVP 40 mg IVP once Route: IVP; Site: left forearm; jw7 Medication: 21:29 VIS not applicable for this client. jw7 Intake: 21:31 IV: 1000ml; Total: 1000ml. jw7 Output: 21:31 Urine: 500ml (Voided); Total: 500ml. jw7 Outcome: 19:26 Decision to Hospitalize by Provider. savage 21:29 Admitted to ER Hold. Please see [facility] for further documentation. jw7 21:29 Condition: stable 21:29 Patient's length of stay in the Emergency Department was greater than 2 hours. Patient's length of stay was extended due to staffing issues within the emergency department. 05/22 09:02 Patient left the ED. ld1 Signatures: Dispatcher [employer] EDMS Elias Gamez MD MD cha Baxter, Heather, WALI KEYES Soledad Rush RN RN ld1 Benito Levine RN RN as6 Karrie Azevedo RN RN jw7 Noelle Stiles RN RN ko1 Lavinia Mock [facility]
[2023-05-22] MEDS ORDERED: KCL 20 MEQ/100 mL IVPB 100 ML IV ONE (19:28)
[2023-05-22] MEDS ORDERED: PANTOPRAZOLE 40 MG INJ ONE (19:33)
--- NOTE | 2023-05-22 19:40 | RAD REPORT ---
EXAM DESCRIPTION: CT - Head C Spine Cap Mary Ramírez - 05/22/2023 7:15 pm CLINICAL HISTORY: Head and neck injury with chest and abdominal pain status post fall. Head and neck pain . TECHNIQUE: Computed axial tomography of the head and cervical spine was obtained Computed axial tomography of the chest, abdomen and pelvis was obtained. 100 cc Isovue-300 was given intravenously coronal and sagittal reconstruction was performed. All CT scans are performed using dose optimization technique as appropriate and may include automated exposure control or mA/KV adjustment according to patient size. COMPARISON: CT head, C-spine, chest, abdomen April 2023 FINDINGS: An intracranial bleed is not seen. The ventricles are normal in caliber. An extra-axial fl uid collection is not noted. Fluid within the sinuses is not seen A cervical fracture is not seen. No dislocation is seen. Mild chronic anterior subluxation C3 on C4 A mediastinal hematoma is not noted. A pleural effusion is not present. A lung contusion is not seen. Mild right upper lobe opacity compatible with atelectasis. Mild left upper and lingular opacities may represent pneumonia The liver, spleen, pancreas, adrenals, kidneys and bladder do not demonstrate an acute traumatic inju ry postsurgical changes stomach. Mild compression fractures lower thoracic/upper lumbar spine are old Left hip arthroplasty Mildly cirrhotic liver. Mild splenomegaly IMPRESSION: No acute intracranial abnormality is seen A cervical fracture is not visualized. If the patient continues have symptoms to suggest intracranial /spinal cord pathology then MRI would be recommended. No acute traumatic injury involving the chest, abdomen or pelvis is seen. Mild right upper lobe atelectasis. Mild left lung infiltrates perhaps pneumonia
--- NOTE | 2023-05-22 19:41 | RAD REPORT ---
EXAM DESCRIPTION: RAD - Pelvis - 05/22/2023 5:32 pm CLINICAL HISTORY: Pelvic pain status post injury FINDINGS: No fracture or dislocation is seen. Osteoporosis. Left hip prosthesis
--- NOTE | 2023-05-22 19:41 | RAD REPORT ---
EXAM DESCRIPTION: [place] Single View05/22/2023 5:32 pm CLINICAL HISTORY: Chest pain COMPARISON: May 22, 2023 FINDINGS: Mild right upper lobe opacity overlying the upper hilum could represent atelectasis or pne umonia Mild infiltrate lingula Heart is mildly enlarged
--- NOTE | 2023-05-22 19:42 | RAD REPORT ---
EXAM DESCRIPTION: RAD - Hip Right 2 View - 05/22/2023 5:32 pm CLINICAL HISTORY: Right hip pain FINDINGS: No fracture or dislocation is seen. Chronic right hip calcifications
[2023-05-22] MEDS ORDERED: MAGNESIUM HYDROXIDE 8% 30 ML PO PRN (21:22)
[2023-05-22] MEDS ORDERED: ONDANSETRON 4 MG/2 ML VIAL IV PRN (21:22)
--- NOTE | 2023-05-22 21:22 | P.HP ---
Certification for Inpatient Patient admitted to: Observation With expected LOS: <2 Midnights Practitioner: I am a practitioner with admitting privileges, knowledge of patient current condition, hospital course, and medical plan of care. Services: Services provided to patient in accordance with Admission requirements found in Title 42 Section 412.3 of the Code of Federal Regulations Patient History Date of Service: 05/23/23 Reason for admission: Fall, shortness of breath, COPD exacerbation. History of Present Illness: 67-year-old female patient with medical history significant for COPD, hypertension, hyperlipidemia, history of chronic atrial fibrillation on anticoagulation with Eliquis who was evaluated in the ED for episode of a fall. She also had significant difficulty breathing. Since she history of COPD patient she was worked up and found to have no acute fractures for surveillance x-rays and lab revealed significantly low potassium of 2.5 for which she was started on repletion. She was admitted for inpatient care. She continues to smoke about 26 centigrade per day. She denies overt episode of fever, chills, nausea, vomiting, diarrhea. Allergies nifedipine [From Procardia] Allergy (Mild, Verified 04/04/23 16:05) Hives/Rash insulin regular Allergy (Verified 03/02/23 20:52) Nausea/Vomiting Home Medications: Acetaminophen [Tylenol] 650 mg PO Q4HP PRN 03/02/23 Albuterol Neb [Proventil 0.083% Neb Soln] 2.5 mg NEB [id number] PRN #120 amp 04/06/23 Codeine/APAP [Tylenol #3*] 1 tab PO Q4H PRN #20 tab 04/06/23 Docusate [Colace Cap*] 200 mg PO DAILY #30 cap 04/06/23 Ferrous Sulfate [Ferrous Sulfate*] 325 mg PO DAILY #30 tab 04/06/23 Lidocaine [Dermacinrx Lidocan] 1 each TP DAILY 30 Days #30 patch 04/06/23 Metoprolol Tartrate [Lopressor*] 25 mg PO BID 6AM 6PM #60 tab 04/06/23 Multivitamin with Minerals [Multivitamins with Minerals] 1 each PO DAILY #30 tab 04/06/23 Omeprazole 20 mg PO DAILY #30 tab 04/06/23 Polyethylene Glycol 3350 [Miralax] 17 gm PO DAILYPRN PRN #30 packet 04/06/23 Sodium Chloride Tab [Sodium Chloride*] 1 gm PO TID #90 tab 04/06/23 Potassium Oral Tab [Klor-Con 10 mEq Tab*] 10 meq PO DAILY 30 Days #30 tab 04/23/23 Apixaban [Eliquis *] 2.5 mg PO BID 30 Days #60 tablet 05/09/23 Aspirin [Aspirin EC 81 MG] 81 mg PO DAILY 30 Days #30 tab 05/09/23 Metoprolol Tartrate [Lopressor*] 25 mg PO BID #60 tab 05/11/23 - Past Medical/Surgical History Diabetic: Yes -: Gastritis / Esophagitis -: DM II -: CAD s/p PCI -: h/o alcohol abuse, with ?liver cirrhosis -: chronic intermittent diarrhea -: CVA vs TIA -: COPD (mild) -: Chronic hyponatremia -: MA -: HTN -: Atrial fibrillation -: s/p PCI (~2019) -: cholecystectomy -: Appendectomy -: Lap-Band surgery -: EGD/C-scope (early 2022) -: hip fracture Psychosocial/ Personal History: lives with daughter, recently moved to area - Family History Father -: Heart disease, Hypertension Mother -: Heart disease, Hypertension, Diabetes - Social History Alcohol use: No CD- Drugs: No Caffeine use: Yes Review of Systems General: Malaise Eyes: Unremarkable ENT: Unremarkable Respiratory: Cough, Shortness of Breath, SOB with Excertion, Wheezing Cardiovascular: Unremarkable Gastrointestinal: Unremarkable Genitourinary: Unremarkable Musculoskeletal: Arm Pain Integumentary: Unremarkable Neurological: Unremarkable Lymphatics: Unremarkable Physical Examination - Physical Exam General: Alert, Oriented x3 HEENT: Atraumatic Neck: Supple Respiratory: Diminished, Expiratory wheezes, Inspiratory wheezes Cardiovascular: Regular rate/rhythm, Normal S1 S2 Gastrointestinal: Soft and benign Musculoskeletal: No swelling, Other (deformed left elbow.) Neurological: Normal speech, Normal strength at 5/5 x4 extr - Studies Laboratory Data (last 24 hrs) 05/22/23 05/22/23 05/22/23 17:46 17:46 17:46 WBC 6.00 Hgb 8.1 L Hct 24.5 L Plt Count 304 PT 12.7 H INR 1.16 Sodium 133 L Potassium 2.5 L* BUN 10 Creatinine 0.70 Glucose 119 H Magnesium 2.1 Total Bilirubin 0.6 AST 23 ALT 25 Alkaline Phosphatase 117 Lipase 12 L Assessment and Plan - Plan COPD exacerbation: Patient has clinical findings. Will continue Solu-Medrol for management, as needed DuoNeb. Will start empiric antibiotic therapy for suspected underlying infectious process. Will continue on supplemental oxygen as needed. Fall: Surveillance x-ray shows no acute fractures. Patient has significant pain in left elbow As needed pain control with [place] on board. Chronic atrial fibrillation: We will continue Eliquis for anticoagulation and other rate control medications. Tobacco abuse: Patient continues to smoke. Will start nicotine patch. Hyperlipidemia: We will continue statin therapy. Hypertension: We will monitor vital signs per unit protocol and continue antihypertensive medications. Prophylaxis: Eliquis to be continued for A-fib anticoagulation and should suffice for DVT prophylaxis CODE STATUS: Full code Disposition: We will treat her COPD exacerbation, manage acute pain related to fall episode and discharge at once deemed clinically stable. - Advance Directives Does patient have a Living Will: No Does patient have a Durable POA for Healthcare: No
[2023-05-22] MEDS ORDERED: ACETAMINOPHEN 325 MG TABLET ONE (23:29)
[2023-05-22] MEDS: ACETAMINOPHEN 325 MG TABLET PO PRN (23:34)
[2023-05-23] MEDS ORDERED: ALPRAZOLAM 0.25 MG TABLET ONE (01:15)
[2023-05-23] MEDS: ALPRAZOLAM 0.25 MG TABLET PO PRN (01:17)
[2023-05-23] MEDS ORDERED: METHYLPREDNISOLONE 40 MG INJ ONE (01:41)
[2023-05-23] MEDS: METHYLPREDNISOLONE 40 MG INJ IV SCH (01:45)
[2023-05-23 03:41] LABS: Absolute Lymphocytes (CBC) 0.1 K/uL (0.7-4.9); Basophils % 0.1 % (0-1.3); Hematocrit 23.4 % (36.0-45.0); Hemoglobin 7.6 g/dL (12.0-15.0); Lymphocytes % 3.7 % (15.3-44.8); MCV 78.2 fL (80-100); MPV 7.7 fL (7.6-11.3); Platelets 263 thou/uL (152-406); RBC Red Blood Cell Count 2.99 M/uL (3.86-4.86)
[2023-05-23 03:51] LABS: Anion Gap 10.3 mEq/L (5.0-15.0); Potassium 4.3 mEq/L (3.5-5.1)
[2023-05-23 03:56] LABS: Ferritin 29.1 ng/mL (8-388)
[2023-05-23 04:12] VITALS: BMI 23.8
[2023-05-23 04:56] LABS: Band Neutrophils 6 % (0-1)
[2023-05-23 04:57] LABS: Anisocytosis 1+; Blood Morphology Comment NOTED (NOT SEEN); Platelet Estimate ADEQ
--- NOTE | 2023-05-23 06:54 | P.PN ---
Subjective Date of Service: 05/23/23 Chief Complaint: Fall, shortness of breath, COPD exacerbation. Subjective: Improving Review of Systems 10-point ROS is otherwise unremarkable General: Weakness, As per HPI Respiratory: As per HPI Musculoskeletal: As per HPI Physical Examination - Vital Signs Temperature: 98.5 F Blood Pressure: 130/78 Pulse: 94 Respirations: 16 Pulse Ox (%): 98 - Physical Exam General: Alert, In no apparent distress HEENT: Atraumatic, Normocephalic Neck: 2+ carotid pulse no bruit Respiratory: Expiratory wheezes Cardiovascular: No edema, Normal pulses Gastrointestinal: Normal bowel sounds Musculoskeletal: Other (elbow and knee tenderness continues) Integumentary: No rashes, Other (pallor) Neurological: Normal speech Lymphatics: No axilla or inguinal lymphadenopathy External genitalia: Deferred Rectal: Deferred - Studies Laboratory Data (last 24 hrs) 05/22/23 05/22/23 05/22/23 17:46 17:46 17:46 WBC 6.00 Hgb 8.1 L Hct 24.5 L Plt Count 304 PT 12.7 H INR 1.16 Sodium 133 L Potassium 2.5 L* BUN 10 Creatinine 0.70 Glucose 119 H Magnesium 2.1 Total Bilirubin 0.6 AST 23 ALT 25 Alkaline Phosphatase 117 Lipase 12 L Assessment And Plan - Plan - Plan COPD exacerbation: Patient has clinical findings. Will continue Solu-Medrol for management, as needed DuoNeb. Will start empiric antibiotic therapy for suspected underlying infectious process. Will continue on supplemental oxygen as needed. Iron Deficiency Anemia: Iron low at 10 H/H down to 7.6 this am Will give iron infusion and continue po replenishment Fall: Surveillance x-ray shows no acute fractures. Patient has significant pain in left elbow As needed pain control with [place] on board. Chronic atrial fibrillation: We will continue Eliquis for anticoagulation and other rate control medications. Tobacco abuse: Patient continues to smoke. Will start nicotine patch. Hyperlipidemia: We will continue statin therapy. Hypertension: We will monitor vital signs per unit protocol and continue antihypertensive medications. Prophylaxis: Eliquis to be continued for A-fib anticoagulation and should suffice for DVT prophylaxis CODE STATUS: Full code Disposition: We will treat her COPD exacerbation, manage acute pain related to fall episode and discharge at once deemed clinically stable. - Advance Directives Does patient have a Living Will: No Does patient have a Durable POA for Healthcare: No Discharge Plan: Home Plan to discharge in: 24 Hours - Code Status/Comfort Care Code Status Assessed: Yes (full)
[2023-05-23] MEDS: INFLUENZA VACCINE (for 6+ mo) 0.5 ML DOSE IMVAC ONE (08:00)
[2023-05-23] MEDS: PNEUMOCOCCAL VACCINE 0.5 ML IMVAC ONE (08:00)
[2023-05-23] MEDS: NICOTINE 7 MG/PAT TD SCH (09:00)
[2023-05-23] MEDS ORDERED: ENOXAPARIN 40 MG/0.4 ML SQ SCH (09:00)
[2023-05-23] MEDS: CEFTRIAXONE 1,000 MG in NA CHLORIDE 0.9% 50 ML IVPB SCH (09:28)
[2023-05-23] MEDS: ASPIRIN EC 81 MG TAB PO SCH (09:33)
[2023-05-23] MEDS: APIXABAN 2.5 MG TABLET PO SCH (09:34)
[2023-05-23] MEDS: SOD FERRIC GLUC COMPLX/SUCROSE 250 MG in NA CHLORIDE 0.9% 250 ML IV SCH (09:59)
[2023-05-23] MEDS: ALBUTEROL 2.5 MG/3 ML NEB SOL NEB PRN (13:31)
[2023-05-23] MEDS: IPRATROPIUM BROM 0.5MG/2.5ML NEB PRN (13:31)
[2023-05-23] MEDS ORDERED: MORPHINE 2 MG/ML SYR IV PRN (21:16)
[2023-05-23] MEDS: HYDROCODONE/APAP 7.5/325 MG TAB PO PRN (22:07)
[2023-05-23] MEDS: AMLODIPINE 5 MG TAB PO SCH (22:08)
[2023-05-23] MEDS: HYDRALAZINE HCL 20 MG/ML VIAL IV PRN (22:08)
[2023-05-24] MEDS: METHYLPREDNISOLONE 125 MG INJ IV SCH (00:23)
[2023-05-24] MEDS: ARFORMOTEROL TARTRATE 15 MCG/2 ML VIAL.NEB NEB SCH (07:31)
[2023-05-24 07:38] LABS: Absolute Lymphocytes (CBC) 0.2 K/uL (0.7-4.9); Hematocrit 24.1 % (36.0-45.0); Hemoglobin 7.8 g/dL (12.0-15.0); Lymphocytes % 2.6 % (15.3-44.8); MCV 78.2 fL (80-100); MPV 7.8 fL (7.6-11.3); Platelets 328 thou/uL (152-406); RBC Red Blood Cell Count 3.08 M/uL (3.86-4.86)
[2023-05-24 07:48] LABS: Anion Gap 12.8 mEq/L (5.0-15.0); Potassium 3.8 mEq/L (3.5-5.1)
--- NOTE | 2023-05-24 08:53 | P.DS ---
Admission Date: 05/22/23 Discharge Date: 05/24/23 Disposition: ROUTINE DISCHARGE Discharge Condition: GOOD Reason for Admission: Fall, shortness of breath, COPD exacerbation. Brief History of Present Illness: 67-year-old female patient with medical history significant for COPD, hypertension, hyperlipidemia, history of chronic atrial fibrillation on anticoagulation with Eliquis who was evaluated in the ED for episode of a fall. She also had significant difficulty breathing. Since she history of COPD patient she was worked up and found to have no acute fractures on surveillance x-rays and lab revealed significantly low potassium of 2.5 for which she was started on repletion. She was admitted for inpatient care. She continues to smoke about 26 cigarettes per day. She denies overt episode of fever, chills, nausea, vomiting, diarrhea. Hospital Course: There were no complications to the hospital course for Ms. Hartley. Her potassium today is 3.8. She has had no further nausea vomiting or diarrhea. On evaluation her iron level was low at 10, consistent with her iron deficiency anemia. She did receive some IV iron during hospitalization and will be discharged with iron twice daily and encouraged to follow-up with her PCP. Vital Signs/Physical Exam: Temp Pulse Resp BP Pulse Ox 97.2 F 89 18 160/79 H 94 05/24/23 04:00 05/24/23 04:00 05/24/23 04:00 05/24/23 04:00 05/24/23 04:00 General: Alert, In no apparent distress, Oriented x3 HEENT: Atraumatic, Normocephalic Neck: Supple, JVD not distended Respiratory: Expiratory wheezes, Rhonchi/gurgles Cardiovascular: Normal pulses, Regular rate/rhythm Capillary refill: <2 Seconds Gastrointestinal: Soft and benign Musculoskeletal: No clubbing, No swelling Integumentary: No rashes Neurological: Normal speech, Normal affect Lymphatics: No axilla or inguinal lymphadenopathy External genitalia: Deferred Rectal: Deferred Laboratory Data at Discharge: WBC 8.30 thou/uL (4.3-10.9) 05/24/23 06:51 Hgb 7.8 g/dL (12.0-15.0) L 05/24/23 06:51 Hct 24.1 % (36.0-45.0) L 05/24/23 06:51 Plt Count 328 thou/uL (152-406) 05/24/23 06:51 PT 12.7 SECONDS (9.5-12.5) H 05/22/23 17:46 INR 1.16 05/22/23 17:46 Sodium 130 mEq/L (136-145) L 05/24/23 06:55 Potassium 3.8 mEq/L (3.5-5.1) 05/24/23 06:55 BUN 14 mg/dL (7-18) 05/24/23 06:55 Creatinine 0.80 mg/dL (0.55-1.02) 05/24/23 06:55 Glucose 210 mg/dL (74-106) H 05/24/23 06:55 Magnesium 2.0 mg/dL (1.6-2.4) 05/23/23 03:16 Total Bilirubin 0.6 mg/dL (0.2-1.0) 05/22/23 17:46 AST 23 U/L (15-37) 05/22/23 17:46 ALT 25 U/L (13-56) 05/22/23 17:46 Alkaline Phosphatase 117 U/L (45-117) 05/22/23 17:46 Lipase 12 U/L (13-75) L 05/22/23 17:46 Home Medications: Albuterol Neb [Proventil 0.083% Neb Soln] 2.5 mg NEB [id number] PRN #120 amp 04/06/23 Docusate [Colace Cap*] 200 mg PO DAILY #30 cap 04/06/23 Metoprolol Tartrate [Lopressor*] 25 mg PO BID 6AM 6PM #60 tab 04/06/23 Omeprazole 20 mg PO DAILY #30 tab 04/06/23 Polyethylene Glycol 3350 [Miralax] 17 gm PO DAILYPRN PRN #30 packet 04/06/23 Potassium Oral Tab [Klor-Con 10 mEq Tab*] 10 meq PO DAILY 30 Days #30 tab 04/23/23 Apixaban [Eliquis *] 2.5 mg PO BID 30 Days #60 tablet 05/09/23 Amlodipine [Norvasc*] 5 mg PO DAILY tab 05/24/23 Arformoterol Tartrate [Brovana] 15 mcg NEB BIDRESP vial.neb 05/24/23 Ferrous Sulfate 325 mg PO BID #60 05/24/23 New Medications: Ferrous Sulfate 325 mg PO BID #60 Physician Discharge Instructions: Okay to DC IV and DC home Follow-up with primary care provider in 1 to 2 weeks Please call the inpatient unit for any questions or concerns regarding hospital stay Return to the ER for worsening symptoms Diet: Regular Activity: Ad freddy Followup: NONE,NONE [Primary Care Provider] -
[2023-05-24 09:26] VITALS: BP 144/67
[2023-05-24 10:25] VITALS: O2SAT 96
[2023-05-24 11:20] VITALS: TEMP 97.9
[2023-05-24] MEDS ORDERED: PNEUMOCOCCAL VACCINE 0.5 ML IMVAC ONE (12:00)
[2023-05-24] MEDS ORDERED: INFLUENZA VACCINE (for 6+ mo) 0.5 ML DOSE IMVAC ONE (12:00)
== END 2023-05-24 13:15 | disposition home or self-care (01) ==
LOC: ER 16:42 → ERHOLD 21:22 → 4TH 05-23 08:56
PROVIDERS: ADMIT Internal Medicine Nephrology; ATTEND Hospitalist
DX: J44.1 Chronic obstructive pulmonary disease with (acute) exacerbation (principal); I48.11 Longstanding persistent atrial fibrillation; F17.210 Nicotine dependence, cigarettes, uncomplicated; E78.5 Hyperlipidemia, unspecified; I10 Essential (primary) hypertension; D50.9 Iron deficiency anemia, unspecified; E11.9 Type 2 diabetes mellitus without complications; E87.6 Hypokalemia; I25.2 Old myocardial infarction; S82.002A Unspecified fracture of left patella, initial encounter for closed fracture; S50.01XA Contusion of right elbow, initial encounter; M97.12XA Periprosthetic fracture around internal prosthetic left knee joint, initial encounter; W01.0XXA Fall on same level from slipping, tripping and stumbling without subsequent striking against object, initial encounter; Y93.89 Activity, other specified; Y92.012 Bathroom of single-family (private) house as the place of occurrence of the external cause; Z59.00 Homelessness unspecified; Z79.01 Long term (current) use of anticoagulants; Z71.6 Tobacco abuse counseling; Z98.84 Bariatric surgery status
CPT/HCPCS: 87040 ×2; 87088; 85025 ×3; 81001; 87086; 80048 ×3; 36415 ×2; 86900; 83735 ×2; 86850; 85610; 86901; 82947; 80076; 83605; 84484; 82728; 83690; 83540; 84145; 83880; 84466; 70450; 72125; 71260; 74177; 71045; 72170; 73502; 73630; 73080; 73562 ×2; 94640; Q9967; J3480 ×2; J2916 ×2; J0360; J7614; J7613 ×3; J7644 ×4; C9113; J7605; J2930 ×3; J7050 ×2; J2920 ×3; J0696 ×2; 99285; G0378

== ENCOUNTER → 2023-05-22 | Emergency (ER) | payer OTHER ==
--- NOTE | 2023-05-22 14:51 | RAD REPORT ---
EXAM DESCRIPTION: [place] Single View05/22/2023 2:36 pm CLINICAL HISTORY: Cough COMPARISON: May 18, 2023 none FINDINGS: The lungs appear clear of acute infiltrate. The heart is normal size Old right rib and left humeral fractures IMPRESSION: No acute abnormalities displayed
--- NOTE | 2023-05-22 14:53 | ER ---
Nurse's Notes [facility] Name: Reina Hartley Age: 67 yrs Sex: Female : 1955 Arrival Date: 05/22/2023 Time: 14:13 Bed IW1 Private MD: Diagnosis: Coronavirus infection, unspecified Presentation: 05/21 14:24 Chief complaint: Patient states: "I've been coughing real bad for a week and I took a as6 covid test today and it was positive". Coronavirus screen: At this time, the client does not indicate any symptoms associated with coronavirus-19. Ebola Screen: No symptoms or risks identified at this time. Initial Sepsis Screen: Does the patient meet any 2 criteria? No. Patient's initial sepsis screen is negative. Does the patient have a suspected source of infection? No. Patient's initial sepsis screen is negative. Risk Assessment: Do you want to hurt yourself or someone else? Patient reports no desire to harm self or others. Onset of symptoms was May 15, 2023. 14:24 Method Of Arrival: EMS: [facility] as6 14:24 Acuity: ANDREA 3 as6 Triage Assessment: 14:30 General: Appears unkempt, Behavior is calm, cooperative. Pain: Denies pain. EENT: No as6 deficits noted. No signs and/or symptoms were reported regarding the EENT system. Neuro: Level of Consciousness is awake, alert, obeys commands, Oriented to person, place, time, situation. Cardiovascular: Patient's skin is warm and dry. Respiratory: Reports shortness of breath cough that is Breath sounds with wheezes bilaterally. GI: No deficits noted. No signs and/or symptoms were reported involving the gastrointestinal system. : No deficits noted. No signs and/or symptoms were reported regarding the genitourinary system. Derm: Skin is intact. Musculoskeletal: Circulation, motion, and sensation intact. Historical: - Allergies: 14:24 all depression medications; as6 14:24 Procardia; as6 - PMHx: 14:24 Arthritis; diabetes mellitus; Hypertensive disorder; Myocardial infarction; as6 - PSHx: 14:24 Appendectomy; breast augmentation; cardiac stent; Cholecystectomy; Gastric Bypass; as6 hysterectomy; Left hip; - Immunization history:: Adult Immunizations up to date. - Social history:: Smoking status: Patient reports the use of cigarette tobacco products, smokes one pack cigarettes per day. Screenin:32 [facility] ED Fall Risk Assessment (Adult) History of falling in the last 3 months, as6 including since admission No falls in past 3 months (0 pts) Confusion or Disorientation No (0 pts) Intoxicated or Sedated No (0 pts) Impaired Gait No (0 pts) Mobility Assist Device Used No (0 pt) Altered Elimination No (0 pt) Score/Fall Risk Level 0 - 2 = Low Risk Oriented to surroundings, Maintained a safe environment, Educated pt \\T\\ family on fall prevention, incl call for assistance when getting out of bed, Assessed \\T\\ reinforced patient's understanding of fall precautions. Abuse screen: Denies threats or abuse. Denies injuries from another. Nutritional screening: No deficits noted. Tuberculosis screening: No symptoms or risk factors identified. Vital Signs: 14:23 BP 156 / 98; Pulse 107; Resp 18; Temp 98.2(TE); Pulse Ox 100% on R/A; Weight 58.97 kg as6 (R); Height 5 ft. 2 in. ; Pain 0/10; 14:23 Body Mass Index 23.78 (58.97 kg, 157.48 cm) as6 14:23 Pain Scale: Adult as6 ED Course: 14:14 Patient arrived in ED. ra3 14:15 Dedra Costa FNP is PHCP. jh7 14:15 Elias Gamez MD is Attending Physician. jh7 14:23 Arm band placed on. as6 14:25 Triage completed. as6 14:31 Patient placed in waiting room, Patient notified of wait time. as6 14:32 PO fluids given. as6 14:38 XRAY Chest (1 view) In Process Unspecified. EDMS 14:53 Patient has correct armband on for positive identification. Call light in reach. as6 14:53 No provider procedures requiring assistance completed. Patient did not have IV access as6 during this emergency room visit. 14:58 Provided Education on: rx teaching, how to manage covid at home . as6 Administered Medications: No medications were administered Medication: 14:32 VIS not applicable for this client. as6 Outcome: 14:53 Discharge ordered by . jh7 14:54 Condition: stable as6 14:57 Discharged to home ambulatory, as6 14:57 Discharge instructions given to patient, Instructed on discharge instructions, follow up and referral plans. medication usage, Demonstrated understanding of instructions, follow-up care, medications, Prescriptions given X 1, 14:58 Patient left the ED. as6 Signatures: Dispatcher [employer] Benito Raymond RN RN as6 Dedra Costa, KNIFE MACHINE OPERATOR KNIFE MACHINE OPERATOR jh7 Mary Holloway 3
--- NOTE | 2023-05-22 14:54 | EDPHYS ---
Physician Documentation [facility] Name: Reina Hartley Age: 67 yrs Sex: Female : 1955 Arrival Date: 05/22/2023 Time: 14:13 Bed IW1 Private MD: ED Physician Elias Gamez HPI: 05/21 14:24 This 67 yrs old Female presents to ER via EMS with complaints of covid. jh7 14:24 Onset: The symptoms/episode began/occurred 1 week(s) ago. Associated signs and jh7 symptoms: Pertinent positives: cough, wheezing, Pertinent negatives: abdominal pain, chest pain, diarrhea, fever, headache, sore throat, vomiting. Patient with a past medical history of hypertension and diabetes reports that she took 2 COVID test today that were both positive. She was recently diagnosed with bronchitis and is already on an inhaler and steroids. Patient requesting food, soda, and blankets.. Historical: - Allergies: 14:24 all depression medications; as6 14:24 Procardia; as6 - PMHx: 14:24 Arthritis; diabetes mellitus; Hypertensive disorder; Myocardial infarction; as6 - PSHx: 14:24 Appendectomy; breast augmentation; cardiac stent; Cholecystectomy; Gastric Bypass; as6 hysterectomy; Left hip; - Immunization history:: Adult Immunizations up to date. - Social history:: Smoking status: Patient reports the use of cigarette tobacco products, smokes one pack cigarettes per day. ROS: 14:24 Constitutional: Negative for fever, chills, and weight loss, Eyes: Negative for injury, jh7 pain, redness, and discharge, ENT: Negative for injury, pain, and discharge, Neck: Negative for injury, pain, and swelling, Cardiovascular: Negative for chest pain, palpitations, and edema, Abdomen/GI: Negative for abdominal pain, nausea, vomiting, diarrhea, and constipation, Back: Negative for injury and pain, MS/Extremity: Negative for injury and deformity, Skin: Negative for injury, rash, and discoloration, Neuro: Negative for headache, weakness, numbness, tingling, and seizure, 14:24 Respiratory: Positive for cough, wheezing, inspiratory, expiratory, 14:24 All other systems are negative, Exam: 14:24 Constitutional: This is a well developed, well nourished patient who is awake, alert, jh7 and in no acute distress. Head/Face: Normocephalic, atraumatic. Eyes: Pupils equal round and reactive to light, extra-ocular motions intact. Lids and lashes normal. Conjunctiva and sclera are non-icteric and not injected. Cornea within normal limits. Periorbital areas with no swelling, redness, or edema. ENT: Nares patent. No nasal discharge, no septal abnormalities noted. Tympanic membranes are normal and external auditory canals are clear. Oropharynx with no redness, swelling, or masses, exudates, or evidence of obstruction, uvula midline. Mucous membranes moist. Cardiovascular: Regular rate and rhythm with a normal S1 and S2. No gallops, murmurs, or rubs. Normal PMI, no JVD. No pulse deficits. Abdomen/GI: Soft, non-tender, with normal bowel sounds. No distension or tympany. No guarding or rebound. No evidence of tenderness throughout. Back: No spinal tenderness. No costovertebral tenderness. Full range of motion. Skin: Warm, dry with normal turgor. Normal color with no rashes, no lesions, and no evidence of cellulitis. MS/ Extremity: Pulses equal, no cyanosis. Neurovascular intact. Full, normal range of motion. Neuro: Awake and alert, GCS 15, oriented to person, place, time, and situation. Motor strength 5/5 in all extremities. Sensory grossly intact. Normal gait. 14:24 Respiratory: the patient does not display signs of respiratory distress, Respirations: Hacking cough noted on exam, Breath sounds: rhonchi, are scattered, wheezing: is heard diffusely, Vital Signs: 14:23 BP 156 / 98; Pulse 107; Resp 18; Temp 98.2(TE); Pulse Ox 100% on R/A; Weight 58.97 kg as6 (R); Height 5 ft. 2 in. ; Pain 0/10; 14:23 Body Mass Index 23.78 (58.97 kg, 157.48 cm) as6 14:23 Pain Scale: Adult as6 MDM: 14:15 Patient medically screened. jh7 14:55 Differential diagnosis: viral Infection, bacterial infection, URI, bronchitis, jh7 pneumonia. Data reviewed: vital signs, nurses notes, radiologic studies, plain films. Independent interpretation of the following test(s) in the Emergency Department X-Ray: My interpretation is no acute findings. Care significantly affected by the following chronic conditions: Diabetes, Hypertension, Chronic Obstructive Pulmonary Disease. Care significantly affected by the following Social Determinants of Health: Inadequate housing. Counseling: I had a detailed discussion with the patient and/or guardian regarding the historical points, exam findings, and any diagnostic results supporting the discharge/admit diagnosis, to return to the emergency department if symptoms worsen or persist or if there are any questions or concerns that arise at home. 05/21 14:24 Order name: XRAY Chest (1 view); Complete Time: 14:52 [facility] Administered Medications: No medications were administered Disposition Summary: 05/22/23 14:53 Discharge Ordered Notes: Location: Home [facility] Problem: new [facility] Symptoms: are unchanged [facility] Condition: Stable [facility] Diagnosis - Coronavirus infection, unspecified [facility] Followup: [facility] - With: Private Physician - When: 2 - 3 days - Reason: Recheck today's complaints Discharge Instructions: - Discharge Summary Sheet [facility] - COVID-19 [facility] - 10 Things You Can Do to Manage Your COVID-19 Symptoms at Home - [facility] (09/26/2020) [facility] Forms: - Medication Reconciliation Form [facility] - Thank You Letter 7 - Antibiotic Education [facility] - Patient Portal Instructions [facility] - Leadership Thank You Letter [facility] Prescriptions: - Tessalon Perles 100 mg Oral Capsule - take 1 capsule ORAL route every 8 hours As needed; 15 capsule; Refills: 0, 7 Product Selection Permitted Signatures: Dispatcher [employer] Benito Raymond RN RN as6 Dedra Costa, SERVICE AGENT SERVICE AGENT [facility] Corrections: (The following items were deleted from the chart) 14:29 14:24 Patient reports that she took 2 COVID test today that were both positive. She was [facility] recently diagnosed with bronchitis and is already on an inhaler and steroids. Patient requesting food, soda, and blankets.. [facility]
[2023-05-22 15:19] VITALS: BP 156/98; TEMP 98.2; O2SAT 100
== END ==
LOC: ER 14:13
DX: U07.1 COVID-19 (principal); E11.9 Type 2 diabetes mellitus without complications; I10 Essential (primary) hypertension; F17.210 Nicotine dependence, cigarettes, uncomplicated; Z98.82 Breast implant status; Z88.8 Allergy status to other drugs, medicaments and biological substances
CPT/HCPCS: 71045; 99283

== ENCOUNTER → 2023-05-29 | Emergency (ER) | payer OTHER ==
[~2023-05-29] MED LIST changes: +ALBUTEROL 2.5 MG/3 ML NEB SOL ONE; -ALBUTEROL INHALER 200 PUFF/6.7 GM IH ONE; +ASPIRIN 81 MG CHEWABLE TABLET ONE; +IPRATROPIUM BROM 0.5MG/2.5ML ONE; +METHYLPREDNISOLONE 40 MG INJ ONE; +POTASSIUM CL SA 10 MEQ TAB PO ONE; -predniSONE 20 MG TAB ONE
[2023-05-30 00:42] LABS: Absolute Lymphocytes (CBC) 1.8 K/uL (0.7-4.9); Absolute Monocytes 0.5 K/uL (0.1-1.3); Absolute Neutrophil 4.9 K/uL (1.8-8.0); Basophils % 0.4 % (0-1.3); Eosinophils % 0.5 % (0-4.4); Hematocrit 30.5 % (36.0-45.0); Lymphocytes % 24.6 % (15.3-44.8); MCH 26.4 pg (27.0-35.0); MCHC 32.6 g/dL (32.0-36.0); MPV 7.2 fL (7.6-11.3); Monocytes % 6.4 % (3.3-12.3); Neutrophils % 68.1 % (41.7-73.7); Platelets 355 thou/uL (152-406); RBC Red Blood Cell Count 3.77 M/uL (3.86-4.86); Red Cell Distribution Width 21.8 % (12.1-15.2)
[2023-05-30 00:53] LABS: Anion Gap 11.1 mEq/L (5.0-15.0); Potassium 3.1 mEq/L (3.5-5.1); Troponin High Sensitivity 26.1 pg/mL (<58.9)
[2023-05-30 02:44] LABS: Anisocytosis 1+; Blood Morphology Comment NOTED (NOT SEEN); Microcytosis 1+; Ovalocytes 1+; Platelet Estimate ADEQ; White Blood Cell Scan OK (OK)
[2023-05-30 02:44] LABS: Troponin High Sensitivity 20.8 pg/mL (<58.9)
--- NOTE | 2023-05-30 07:09 | ER ---
Nurse's Notes [facility] Name: Reina Hartley Age: 67 yrs Sex: Female : 1955 Arrival Date: 05/29/2023 Time: 23:47 Bed 3 Private MD: Diagnosis: Unspecified diastolic (congestive) heart failure Presentation: 05/28 23:53 Acuity: ANDREA 3 vc1 23:53 Chief complaint: Patient states: chest pain and shortness of breath EMS states: Chest vc1 discomfort and SOB. Coronavirus screen: Vaccine status: Patient reports receiving the 2nd dose of the covid vaccine. Client denies travel out of the [place] in the last 14 days. At this time, the client does not indicate any symptoms associated with coronavirus-19. Ebola Screen: Patient negative for fever greater than or equal to 101.5 degrees Fahrenheit, and additional compatible Ebola Virus Disease symptoms Patient denies exposure to infectious person. Patient denies travel to an Ebola-affected area in the 21 days before illness onset. No symptoms or risks identified at this time. Initial Sepsis Screen: Does the patient meet any 2 criteria? No. Patient's initial sepsis screen is negative. Does the patient have a suspected source of infection? No. Patient's initial sepsis screen is negative. Risk Assessment: Do you want to hurt yourself or someone else? Patient reports no desire to harm self or others. Onset of symptoms was May 29, 2023 at 22:45. Care prior to arrival: None. Activity prior to arrival: None. Mechanism of Injury: No Mechanism of Injury. Transition of care: Pt homeless. 23:53 Method Of Arrival: EMS: [facility] vc1 Triage Assessment: 05/29 00:38 General: Appears in no apparent distress. uncomfortable, unkempt, Behavior is vc1 cooperative, flat. Pain: Also complains of shortness of breath. Pain: Complains of pain in mid-sternal area Pain does not radiate. Pain currently is 8 out of 10 on a pain scale. Quality of pain is described as pressure, Pain began suddenly, 1 hour ago. Is continuous, Also complains of. EENT: No deficits noted. No signs and/or symptoms were reported regarding the EENT system. Neuro: Level of Consciousness is awake, alert, obeys commands, Oriented to person, place, time, situation, Appropriate for age. Cardiovascular: Reports chest pain, Rhythm is atrial fibrillation With PVC's Chest pain is described as mild, quality is pressure, sharp, is located in left began suddenly, 1 hour prior to arrival. 00:40 Respiratory: Reports shortness of breath Airway is patent Respiratory effort is even, vc1 unlabored, Respiratory pattern is regular, symmetrical. GI: No deficits noted. No signs and/or symptoms were reported involving the gastrointestinal system. : No deficits noted. No signs and/or symptoms were reported regarding the genitourinary system. Derm: No deficits noted. No signs and/or symptoms reported regarding the dermatologic system. Musculoskeletal: No deficits noted. No signs and/or symptoms reported regarding the musculoskeletal system. Historical: - Allergies: 00:35 all depression medications; vc1 00:35 Procardia; vc1 - PMHx: 00:35 Arthritis; Atrial fibrillation; diabetes mellitus; Hypertensive disorder; Myocardial vc1 infarction; - PSHx: 00:35 Appendectomy; breast augmentation; cardiac stent; Cholecystectomy; Gastric Bypass; vc1 hysterectomy; Left hip; - Immunization history:: Client reports receiving the 2nd dose of the Covid vaccine, Pneumococcal vaccine is not up to date, Flu vaccine is up to date. - Social history:: Smoking status: Patient reports the use of cigarette tobacco products, 1-3 cigs per day. - History obtained from: EMS. Screenin/17 23:53 Abuse screen: Denies threats or abuse. Nutritional screening: No deficits noted. vc1 Tuberculosis screening: No symptoms or risk factors identified. 23:53 [facility] ED Fall Risk Assessment (Adult) History of falling in the last 3 months, vc1 including since admission No falls in past 3 months (0 pts) Confusion or Disorientation No (0 pts) Intoxicated or Sedated No (0 pts) Impaired Gait No (0 pts) Mobility Assist Device Used No (0 pt) Altered Elimination No (0 pt) Score/Fall Risk Level 0 - 2 = Low Risk Oriented to surroundings, Maintained a safe environment, Educated pt \T\ family on fall prevention, incl call for assistance when getting out of bed. Assessment: 05/29 00:41 General: See triage assessment. vc1 02:00 Reassessment: No changes from previously documented assessment. Patient and/or family vc1 updated on plan of care and expected duration. Pain level reassessed. Patient is alert, oriented x 3, equal unlabored respirations, skin warm/dry/pink. 02:50 Reassessment: No changes from previously documented assessment. Patient and/or family vc1 updated on plan of care and expected duration. Pain level reassessed. Patient is alert, oriented x 3, equal unlabored respirations, skin warm/dry/pink. 04:35 Reassessment: Patient appears in no apparent distress at this time. Patient and/or vc1 family updated on plan of care and expected duration. Pain level reassessed. Patient is alert, oriented x 3, equal unlabored respirations, skin warm/dry/pink. Patient states symptoms have improved. 07:01 Reassessment: No changes from previously documented assessment. Patient and/or family vc1 updated on plan of care and expected duration. Pain level reassessed. Patient is alert, oriented x 3, equal unlabored respirations, skin warm/dry/pink. 07:28 Reassessment: security called, bus pass provided, patient left with security. General:. ko1 Vital Signs: 05/28 23:53 BP 140 / 89; Pulse 92; Resp 18; Pulse Ox 97% ; vc1 05/29 00:41 Temp 98.5; Weight 61.23 kg; Height 5 ft. 1 in. ; vc1 02:00 BP 118 / 58; Pulse 98; Resp 24; Pulse Ox 95% ; vc1 02:51 BP 128 / 65; Pulse 86; Resp 27; Pulse Ox 97% ; vc1 04:15 BP 114 / 66; Pulse 90; Resp 24; Pulse Ox 98% ; vc1 07:02 BP 128 / 77; Pulse 96; Resp 23; Pulse Ox 100% ; vc1 00:41 Body Mass Index 25.51 (61.23 kg, 154.94 cm) vc1 ED Course: 05/28 23:53 Patient arrived in ED. vc1 23:53 Patient has correct armband on for positive identification. Placed in gown. Bed in low vc1 position. Call light in reach. Side rails up X2. satellite project site monitor on. Pulse ox on. NIBP on. 23:59 Isha Nuñez is Attending Physician. ci 05/29 00:08 EKG done, by master fire control technician. reviewed by Isha Nuñez. oe 00:18 Inserted saline lock: 22 gauge in right forearm, using aseptic technique. Blood oe collected. 00:18 No provider procedures requiring assistance completed. Initial lab(s) drawn, by ED pf1 staff, sent to lab. 00:27 Basic Metabolic Panel Sent. oe 00:27 CBC with Diff Sent. oe 00:27 Troponin HS Sent. oe 00:30 Door closed. Lights dimmed. Warm blanket given. Pillow given. Diet tray given. PO vc1 fluids given. 00:35 Triage completed. vc1 00:36 Arm band placed on right wrist. vc1 00:49 XRAY Chest (1 view) In Process Unspecified. EDMS 01:30 Warm blanket given(2x). oe 02:10 Diet: orange juice given(2x). oe 02:50 Radha Banegas, RN is Primary Nurse. vc1 04:19 Diet: Jyoti yordan given. oe 04:41 Warm blanket given. as9 07:15 IV discontinued, intact, bleeding controlled, No redness/swelling at site. Pressure ko1 dressing applied. 07:15 Provided Education on: na. ko1 Administered Medications: 01:07 Drug: Aspirin PO Chewable Tablet 324 mg PO once; 81 mg tablets x 4 Route: PO; vc1 02:51 Follow up: Response: No adverse reaction vc1 01:07 Drug: DuoNeb Nebulize (3:1) (2.5 mg - 0.5 mg) 3 ml Nebulizer once Route: Nebulizer; vc1 02:51 Follow up: Response: No adverse reaction; Marked relief of symptoms vc1 04:20 Drug: DuoNeb Nebulize (3:1) (2.5 mg - 0.5 mg) 3 ml Nebulizer once Route: Nebulizer; pf1 07:27 Follow up: Response: No adverse reaction ko1 04:25 Drug: Potassium Chloride PO 40 mEq PO once Route: PO; pf1 07:28 Follow up: Response: No adverse reaction ko1 04:25 Drug: MethylPrednisoLONE IVP 80 mg IVP once Route: IVP; Site: right forearm; pf1 07:27 Follow up: Response: No adverse reaction ko1 Medication: 00:38 VIS not applicable for this client. vc1 Outcome: 07:09 Discharge ordered by . ci 07:29 Discharged to Unknown homeless ko1 07:29 Condition: good 07:29 Discharge instructions given to patient, Instructed on discharge instructions, follow up and referral plans. Demonstrated understanding of instructions, follow-up care, 07:30 Patient left the ED. ko1 Signatures: Dispatcher [employer] EDMS Timur Peñaloza Vanessa RN RN vc1 Noelle Stiles RN RN ko1 Stephanie Castellon RN RN pf1 Isha Nuñez Aaron RN RN as9
--- NOTE | 2023-05-30 07:09 | EDPHYS ---
Physician Documentation [facility] Name: Reina Hartley Age: 67 yrs Sex: Female : 1955 Arrival Date: 05/29/2023 Time: 23:47 Bed 3 Private MD: ED Physician Isha Nuñez HPI: 05/29 03:22 This 67 yrs old Female presents to ER via EMS with complaints of CP and SOB. ci 03:22 Patient is a 67-year-old female with PMH arthritis, A-fib, DM 2, hypertension, [place] who ci presents with chest pain and shortness of breath that began an hour prior to arrival. Pain is left-sided, radiates into upper back, no aggravating or relieving factors. Patient has also been wheezing, shortness of breath. History of COPD, currently still smoking.. Historical: - Allergies: 00:35 all depression medications; vc1 00:35 Procardia; vc1 - PMHx: 00:35 Arthritis; Atrial fibrillation; diabetes mellitus; Hypertensive disorder; Myocardial vc1 infarction; - PSHx: 00:35 Appendectomy; breast augmentation; cardiac stent; Cholecystectomy; Gastric Bypass; vc1 hysterectomy; Left hip; - Immunization history:: Client reports receiving the 2nd dose of the Covid vaccine, Pneumococcal vaccine is not up to date, Flu vaccine is up to date. - Social history:: Smoking status: Patient reports the use of cigarette tobacco products, 1-3 cigs per day. - History obtained from: EMS. ROS: 03:56 Constitutional: Negative for fever, chills, and weight loss, ci 03:56 Cardiovascular: Positive for chest pain, 03:56 Respiratory: Positive for shortness of breath, wheezing, Exam: 03:56 Constitutional: This is a well developed, well nourished patient who is awake, alert, ci and in no acute distress. Head/Face: Normocephalic, atraumatic. Eyes: Pupils equal round and reactive to light, extra-ocular motions intact. Lids and lashes normal. Conjunctiva and sclera are non-icteric and not injected. Cornea within normal limits. Periorbital areas with no swelling, redness, or edema. ENT: Nares patent. No nasal discharge, no septal abnormalities noted. Tympanic membranes are normal and external auditory canals are clear. Oropharynx with no redness, swelling, or masses, exudates, or evidence of obstruction, uvula midline. Mucous membranes moist. Neck: Trachea midline, no thyromegaly or masses palpated, and no cervical lymphadenopathy. Supple, full range of motion without nuchal rigidity, or vertebral point tenderness. No Meningismus. Chest/axilla: Normal chest wall appearance and motion. Nontender with no deformity. No lesions are appreciated. Cardiovascular: Regular rate and rhythm with a normal S1 and S2. No gallops, murmurs, or rubs. Normal PMI, no JVD. No pulse deficits. 03:56 Abdomen/GI: Soft, non-tender, with normal bowel sounds. No distension or tympany. No guarding or rebound. No evidence of tenderness throughout. Back: No spinal tenderness. No costovertebral tenderness. Full range of motion. Skin: Warm, dry with normal turgor. Normal color with no rashes, no lesions, and no evidence of cellulitis. MS/ Extremity: Pulses equal, no cyanosis. Neurovascular intact. Full, normal range of motion. Neuro: Awake and alert, GCS 15, oriented to person, place, time, and situation. Cranial nerves II-XII grossly intact. Motor strength 5/5 in all extremities. Sensory grossly intact. Cerebellar exam normal. Normal gait. Psych: Awake, alert, with orientation to person, place and time. Behavior, mood, and affect are within normal limits. 03:56 Cardiovascular: Rate: normal, Rhythm: irregularly irregular, Pulses: no pulse deficits are appreciated, Pulses are 2+ in right radial artery, right dorsalis pedis artery, left radial artery and left dorsalis pedis artery. Heart sounds: normal, normal S1and S2, Edema: is not appreciated, 03:56 ECG was reviewed by the Attending Physician. 03:56 Respiratory: the patient does not display signs of respiratory distress, Respirations: Breath sounds: wheezing: expiratory is scattered, Respiratory rate: 27 Vital Signs: 05/28 23:53 BP 140 / 89; Pulse 92; Resp 18; Pulse Ox 97% ; vc1 18 00:41 Temp 98.5; Weight 61.23 kg; Height 5 ft. 1 in. ; vc1 02:00 BP 118 / 58; Pulse 98; Resp 24; Pulse Ox 95% ; vc1 02:51 BP 128 / 65; Pulse 86; Resp 27; Pulse Ox 97% ; vc1 04:15 BP 114 / 66; Pulse 90; Resp 24; Pulse Ox 98% ; vc1 07:02 BP 128 / 77; Pulse 96; Resp 23; Pulse Ox 100% ; vc1 00:41 Body Mass Index 25.51 (61.23 kg, 154.94 cm) vc1 MDM: 00:01 Patient medically screened. ci 07:02 Differential Diagnosis ACS, pneumonia, COPD, CHF, pneumothorax. Data reviewed: vital ci signs, nurses notes. ED course: Discussed case with hospitalist, patient's proBNP is chronically elevated, was previously 6200 on 05/21, actually improved from previous. EKG with no acute ischemic changes, EKG shows A-fib with no RVR. CXR with no consolidations or infiltrates. High sensitivity troponin negative x 2. Stable for discharge with close outpatient follow-up.. 05/28 23:59 Order name: Basic Metabolic Panel; Complete Time: 01:40 ci 05/28 23:59 Order name: CBC with Diff; Complete Time: 03:21 ci 05/28 23:59 Order name: Troponin HS; Complete Time: 01:40 ci 05/29 00:52 Order name: CBC Smear Scan; Complete Time: 03:21 EDMS 05/29 01:41 Order name: Troponin High Sensitivity; Complete Time: 05:53 ci 05/29 04:06 Order name: NT PRO-BNP; Complete Time: 05:53 EDMS 05/28 23:59 Order name: XRAY Chest (1 view) ci 05/28 23:59 Order name: EKG; Complete Time: 00:00 ci 05/28 23:59 Order name: Cardiac monitoring; Complete Time: 00:08 ci 05/28 23:59 Order name: EKG - Nurse/Tech; Complete Time: 00:27 ci 05/28 23:59 Order name: IV Saline Lock; Complete Time: 00:27 ci 05/28 23:59 Order name: Labs collected and sent; Complete Time: 00:27 ci 05/28 23:59 Order name: O2 Per Protocol; Complete Time: 00:27 ci 05/28 23:59 Order name: O2 Sat Monitoring; Complete Time: 00:27 ci EC:56 Rate is 91 beats/min. Rhythm is irregularly irregular. QRS [place] is Normal. T waves are ci Flattened in lead II. Clinical impression: Atrial Fibrillation. Administered Medications: 01:07 Drug: Aspirin PO Chewable Tablet 324 mg PO once; 81 mg tablets x 4 Route: PO; vc1 02:51 Follow up: Response: No adverse reaction vc1 01:07 Drug: DuoNeb Nebulize (3:1) (2.5 mg - 0.5 mg) 3 ml Nebulizer once Route: Nebulizer; vc1 02:51 Follow up: Response: No adverse reaction; Marked relief of symptoms vc1 04:20 Drug: DuoNeb Nebulize (3:1) (2.5 mg - 0.5 mg) 3 ml Nebulizer once Route: Nebulizer; pf1 07:27 Follow up: Response: No adverse reaction ko1 04:25 Drug: Potassium Chloride PO 40 mEq PO once Route: PO; pf1 07:28 Follow up: Response: No adverse reaction ko1 04:25 Drug: MethylPrednisoLONE IVP 80 mg IVP once Route: IVP; Site: right forearm; pf1 07:27 Follow up: Response: No adverse reaction ko1 Disposition Summary: 05/30/23 07:09 Discharge Ordered Notes: Location: Home ci Condition: Stable ci Diagnosis - Unspecified diastolic (congestive) heart failure ci Followup: ci - With: Private Physician - When: 2 - 3 days - Reason: Recheck today's complaints, Re-evaluation by your physician Forms: - Medication Reconciliation Form ci - Thank You Letter ci - Antibiotic Education ci - Prescription Opioid Use ci - Patient Portal Instructions ci - Leadership Thank You Letter ci Signatures: Dispatcher [employer] EDMS Radha Banegas RN RN vc1 Stephanie Castellon RN RN pf1 Isha Nuñez Kathy RN ko1 Corrections: (The following items were deleted from the chart) 04:04 04:02 PROBNP+C.LAB.BRZ ordered. EDMS EDMS
[2023-05-30 07:57] VITALS: BP 128/77; TEMP 98.5; O2SAT 100
--- NOTE | 2023-05-30 13:06 | RAD REPORT ---
EXAM DESCRIPTION: RAD - Chest Single View - 05/30/2023 12:47 am CLINICAL HISTORY: CHEST PAIN COMPARISON: Chest x-ray 05/07/2023. TECHNIQUE: Single AP view of the chest. FINDINGS: Lung volumes adequate. Cardiac silhouette is enlarged. Thoracic aortic atherosclerosis. No pneumothorax. No large pleural effusion. No focal consolidation. No acute bony finding. Chronic appearing fracture deformities of the left proximal humerus and right ribs. IMPRESSION: 1. No acute cardiopulmonary findings. 2. Enlarged cardiac silhouette. Electronically signed by: Isidoro Llanes MD 05/30/2023 01:16 AM CDT Due to temporary technical issues with the PACS/Fluency reporting system, reports are being signed by the in house radiologist without review as a courtesy to ensure prompt reporting. The interpreting r adiologist is fully responsible for the content of the report.
--- NOTE | 2023-05-31 14:11 | EKG ---
Test Date: 2023-05-29 Test Time: 23:03:32 Movers: JAYLENE MEASUREMENT RESULTS: Intervals: Rate: 91 MS: QRSD: 94 QT: 378 QTc: 464 [place]: P: MS: QRS: 36 T: 103 INTERPRETIVE STATEMENTS: Atrial fibrillation with premature ventricular or aberrantly conducted complexes Low voltage QRS Nonspecific T wave abnormality, probably digitalis effect Abnormal ECG Compared to ECG 05/22/2023 17:23:36 Ventricular premature complex(es) now present Low QRS voltage now present T-wave abnormality still present Electronically Signed On 05-31-23 14:06:42 CDT by David Irby
== END ==
LOC: ER 23:47
DX: I50.30 Unspecified diastolic (congestive) heart failure (principal); I10 Essential (primary) hypertension; I48.91 Unspecified atrial fibrillation; I25.2 Old myocardial infarction; Z72.0 Tobacco use; Z95.818 Presence of other cardiac implants and grafts; Z98.82 Breast implant status; Z88.8 Allergy status to other drugs, medicaments and biological substances
CPT/HCPCS: 36415; 71045; 93005

== ENCOUNTER → 2023-06-01 | Emergency (ER) | payer OTHER ==
--- NOTE | 2023-06-01 04:31 | EDPHYS ---
Physician Documentation [facility] Name: Reina Hartley Age: 67 yrs Sex: Female : 1955 Arrival Date: 06/01/2023 Time: 04:06 Bed 5 Private MD: ED Physician Feng Lerner HPI: 05/31 04:15 This 67 yrs old Female presents to ER via Unassigned with complaints of sp4 dyspnea, homeless . 04:16 Chest X ray review - EXAM DESCRIPTION: RAD - Chest Single View - 05/30/2023 12:47 am sp4 CLINICAL HISTORY: CHEST PAIN COMPARISON: Chest x-ray 05/07/2023. TECHNIQUE: Single AP view of the chest. FINDINGS: Lung volumes adequate. Cardiac silhouette is enlarged. Thoracic aortic atherosclerosis. No pneumothorax. No large pleural effusion. No focal consolidation. No acute bony finding. Chronic appearing fracture deformities of the left proximal humerus and right ribs. IMPRESSION: 1. No acute cardiopulmonary findings. 2. Enlarged cardiac silhouette.. 04:22 Patient's last admission 05/22/2023 through 05/24/2023. Patient was admitted for COPD sp4 exacerbation. Patient has history of COPD, hypertension, hyperlipidemia, chronic atrial fibrillation on anticoagulation with Eliquis . Patient was also admitted for low potassium of 2.5. Patient continues to smoke cigarettes about a pack a day. Patient's potassium was replaced up to 3.8. Patient's medications include albuterol as needed, docusate, metoprolol, omeprazole, polyethylene glycol, potassium p.o., Eliquis 2.5 mg p.o. twice daily, amlodipine 5 mg p.o. daily, arformoterol or Brovana twice daily, ferrous sulfate twice daily, prednisone p.o. twice daily. Amoxicillin clavulanic acid was prescribed during last admission. . 04:33 Further patient was here on 05/30/2023 and she had a full cardiac workup including sp4 troponin which was 26 point 1 repeat troponin which was 20.8. EKG that has revealed atrial fibrillation at the rate of 91 bpm.. 04:37 Of note this is patient's 10th visit this month for various complaints, mostly sp4 respiratory.. Historical: - Allergies: 04:17 all depression medications; ha1 04:17 Procardia; ha1 - PMHx: 04:17 Arthritis; Atrial fibrillation; diabetes mellitus; Hypertensive disorder; Myocardial ha1 infarction; - PSHx: 04:17 Appendectomy; breast augmentation; cardiac stent; Cholecystectomy; Gastric Bypass; ha1 hysterectomy; Left hip; - Immunization history:: Adult Immunizations not up to date. - Social history:: Smoking status: Patient reports the use of cigarette tobacco products, smokes one pack cigarettes per day. - Family history:: not pertinent. ROS: 04:32 Constitutional: Negative for fever, chills, and weight loss, positive for dyspnea, sp4 positive for chest pain 04:32 All other systems are negative, Exam: 04:33 Constitutional: This is a well developed, well nourished patient who is awake, alert, sp4 and in no acute distress. Head/Face: Normocephalic, atraumatic. Eyes: Pupils equal round and reactive to light, extra-ocular motions intact. Lids and lashes normal. Conjunctiva and sclera are not injected. Cornea within normal limits. Periorbital areas with no swelling, redness, or edema. ENT: Nares patent. No nasal discharge, no septal abnormalities noted. Tympanic membranes are normal and external auditory canals are clear. Oropharynx with no redness, swelling, or masses, exudates, or evidence of obstruction, uvula midline. Mucous membranes moist. Neck: Trachea midline, no thyromegaly or masses palpated, and no cervical lymphadenopathy. Supple, full range of motion without nuchal rigidity, or vertebral point tenderness. Chest/axilla: Normal chest wall appearance and motion. Nontender with no deformity. No lesions are appreciated. Cardiovascular: Regular rate and rhythm with a normal S1 and S2. No gallops, murmurs, or rubs. Normal PMI, no JVD. No pulse deficits. Respiratory: Lungs have equal breath sounds bilaterally, clear to auscultation and percussion. No rales, rhonchi or wheezes noted. No increased work of breathing, no retractions or nasal flaring. Abdomen/GI: Soft, with normal bowel sounds. No distension or tympany. No guarding or rebound. No evidence of tenderness throughout. Back: No spinal tenderness. No costovertebral tenderness. Skin: Warm, dry with normal turgor. Normal color with no rashes, no lesions, and no evidence of cellulitis. MS/ Extremity: Pulses equal, no cyanosis. Neurovascular intact. Full, normal range of motion. Neuro: Awake and alert, GCS 15, oriented to person, place, time, and situation. Cranial nerves II-XII grossly intact. Motor strength 5/5 in all extremities. Sensory grossly intact. Psych: Awake, alert, with orientation to person, place and time. Behavior, mood, and affect are within normal limits 04:33 ECG was reviewed by the Attending Physician. 0405 atrial fibrillation at the rate of 98. Rightward axis Vital Signs: 04:14 BP 160 / 89; Pulse 101; Resp 16 S; Temp 98.2(O); Pulse Ox 99% on R/A; Weight 61.23 kg; ha1 Height 5 ft. 2 in. ; 04:42 BP 146 / 87; Pulse 87; Resp 17; Pulse Ox 99% ; jj7 04:14 Body Mass Index 24.69 (61.23 kg, 157.48 cm) ha1 MDM: 04:19 Patient medically screened. sp4 04:35 Differential Diagnosis COPD exacerbation, CHF, chest pain,. Data reviewed: vital signs, sp4 nurses notes, EMS record, old medical records, Patient has had full cardiac workup 05/30/2023. Which was negative for troponin elevation EKG. Consideration of Admission/Observation Escalation of care including admission/observation considered. ED course: At this time we do not see a necessity to repeat the workup since the one was done on 05/30/2023. Patient is stable for discharge home based on vital signs and EKG. Patient advised to see territory account executive and primary care nurse practitioner just as advised on her discharge papers on 05/24/2023 . 05/31 04:18 Order name: EKG; Complete Time: 04:18 sp4 05/31 04:18 Order name: EKG - Nurse/Tech; Complete Time: 04:24 sp4 EC:33 Rate is 98 beats/min. Rhythm is irregularly irregular, A fib. Right axis deviation sp4 noted. T waves are Normal. No ST changes noted. Clinical impression: No evidence of ischemia. Interpreted by me. Reviewed by me. Administered Medications: No medications were administered Disposition Summary: 06/01/23 04:30 Discharge Ordered Notes: Location: Home sp4 Problem: new sp4 Symptoms: have improved sp4 Condition: Stable sp4 Diagnosis - COPD/ Chronic obstructive pulmonary disease, unspecified sp4 - Chronic atrial fibrillation sp4 - Shortness of breath, acute dyspnea sp4 Followup: sp4 - With: Ricardo Castillo MD - When: 7 - 10 days - Reason: Recheck today's complaints Discharge Instructions: - Discharge Summary Sheet sp4 - Chronic Obstructive Pulmonary Disease, [id number] sp4 Forms: - Prescription Opioid Use sp4 Prescriptions: - Ventolin HFA 90 mcg/actuation Inhalation HFA Aerosol Inhaler - inhale 2 puff INHALATION route every 4 hours Dispense with Inhaler, Use Q 4 sp4 hours PRN dyspnea; 1 unit; Refills: 0, Product Selection Permitted - amlodipine 5 mg Oral tablet - take 1 tablet ORAL route once; 90 tablet; Refills: 0, Product Selection sp4 Permitted - Metoprolol Tartrate 25 mg Oral tablet - take 1 tablet ORAL route 2 times per day with a meal; 60 tablet; Refills: 0, sp4 Product Selection Permitted Signatures: Narcisa Coleman RN RN ha1 Feng Lerner MD MD sp4
--- NOTE | 2023-06-01 04:31 | ER ---
Nurse's Notes [facility] Name: Reina Hartley Age: 67 yrs Sex: Female : 1955 Arrival Date: 06/01/2023 Time: 04:06 Bed 5 Private MD: Diagnosis: COPD/ Chronic obstructive pulmonary disease, unspecified;Chronic atrial fibrillation;Shortness of breath, acute dyspnea Presentation: 05/31 04:14 Chief complaint: EMS states: reports chest pain and SOB. Coronavirus screen: Vaccine ha1 status: Patient reports receiving the 1st dose of the Covid vaccine. Moderna. Ebola Screen: No symptoms or risks identified at this time. Initial Sepsis Screen: Does the patient meet any 2 criteria? No. Patient's initial sepsis screen is negative. Does the patient have a suspected source of infection? No. Patient's initial sepsis screen is negative. Risk Assessment: Do you want to hurt yourself or someone else? Patient reports no desire to harm self or others. Onset of symptoms was June 01, 2023. 04:14 Method Of Arrival: EMS: [facility] 04:14 Acuity: ANDREA 3 ha1 Triage Assessment: 04:14 General: Appears comfortable, Behavior is calm, cooperative. Pain: Complains of pain in ha1 chest Pain does not radiate. Pain currently is 6 out of 10 on a pain scale. Quality of pain is described as pressure, Pain began suddenly, Is continuous. Neuro: Level of Consciousness is awake, alert, obeys commands, Oriented to person, place, time, situation. Cardiovascular: Patient's skin is warm and dry. Cardiovascular: Reports chest pain, shortness of breath, Heart tones S1 S3 present. Respiratory: Airway is patent Respiratory effort is even, unlabored, Respiratory pattern is regular, symmetrical. Respiratory: Breath sounds are clear bilaterally. GI: No signs and/or symptoms were reported involving the gastrointestinal system. Abdomen is round non-distended. Derm: Skin is pink, warm \T\ dry. Musculoskeletal: Circulation, motion, and sensation intact. Historical: - Allergies: 04:17 all depression medications; ha1 04:17 Procardia; ha1 - PMHx: 04:17 Arthritis; Atrial fibrillation; diabetes mellitus; Hypertensive disorder; Myocardial ha1 infarction; - PSHx: 04:17 Appendectomy; breast augmentation; cardiac stent; Cholecystectomy; Gastric Bypass; ha1 hysterectomy; Left hip; - Immunization history:: Adult Immunizations not up to date. - Social history:: Smoking status: Patient reports the use of cigarette tobacco products, smokes one pack cigarettes per day. - Family history:: not pertinent. Screenin:17 Abuse screen: Denies threats or abuse. Denies injuries from another. Nutritional ha1 screening: No deficits noted. Tuberculosis screening: No symptoms or risk factors identified. 04:42 [facility] ED Fall Risk Assessment (Adult) History of falling in the last 3 months, jj7 including since admission Yes- fall prone (multiple falls) (3 pts) Confusion or Disorientation No (0 pts) Intoxicated or Sedated No (0 pts) Impaired Gait No (0 pts) Mobility Assist Device Used No (0 pt) Altered Elimination No (0 pt) Score/Fall Risk Level 3 or more points = High Risk Oriented to surroundings, Maintained a safe environment, Educated pt \T\ family on fall prevention, incl call for assistance when getting out of bed. Assessment: 04:14 Reassessment: see triage assessment. ha1 Vital Signs: 04:14 BP 160 / 89; Pulse 101; Resp 16 S; Temp 98.2(O); Pulse Ox 99% on R/A; Weight 61.23 kg; ha1 Height 5 ft. 2 in. ; 04:42 BP 146 / 87; Pulse 87; Resp 17; Pulse Ox 99% ; jj7 04:14 Body Mass Index 24.69 (61.23 kg, 157.48 cm) 1 ED Course: 04:14 Patient arrived in ED. ha1 04:14 Patient has correct armband on for positive identification. Placed in gown. Bed in low ha1 position. Call light in reach. Side rails up X 1. 04:15 Feng Lerner MD is Attending Physician. sp4 04:17 Triage completed. ha1 04:18 Arm band placed on right wrist. Patient placed in an exam room, on a stretcher, on jj7 property assessment monitor, on pulse oximetry. 04:18 EKG done, by quality tech. reviewed by Feng Lerner MD. oe 04:20 Warm blanket given. oe 04:29 Ricardo Castillo MD is Referral Physician. sp4 04:42 No provider procedures requiring assistance completed. Patient did not have IV access jj7 during this emergency room visit. Administered Medications: No medications were administered Medication: 04:42 VIS not applicable for this client. jj7 Outcome: 04:30 Discharge ordered by . deino 04:42 Discharged to home ambulatory, jj7 04:42 Condition: good 04:42 Discharge instructions given to patient, Instructed on discharge instructions, medication usage, Demonstrated understanding of instructions, medications, Prescriptions given X 3, 04:45 Patient left the ED. jj7 Signatures: Timur Peñaloza Heidy, RN RN ha1 Bear Garcia RN RN jj7 Feng Lerner MD MD sp4
[2023-06-01 04:53] VITALS: BP 146/87; TEMP 98.2; O2SAT 99
--- NOTE | 2023-06-02 14:29 | EKG ---
Test Date: 2023-06-01 Test Time: 04:05:30 Market Development Trainer: JAYLENE MEASUREMENT RESULTS: Intervals: Rate: 98 NE: QRSD: 92 QT: 360 QTc: 459 [place]: P: NE: QRS: 100 T: 95 INTERPRETIVE STATEMENTS: Atrial fibrillation Rightward axis Nonspecific T wave abnormality Abnormal ECG Compared to ECG 05/29/2023 23:03:32 Right-axis deviation now present Ventricular premature complex(es) no longer present T-wave abnormality still present Electronically Signed On 06-02-23 14:24:08 CDT by David Irby
== END ==
LOC: ER 04:06
DX: J44.9 Chronic obstructive pulmonary disease, unspecified (principal); I48.20 Chronic atrial fibrillation, unspecified; R06.02 Shortness of breath; Z59.00 Homelessness unspecified; I10 Essential (primary) hypertension; F17.210 Nicotine dependence, cigarettes, uncomplicated; Z98.82 Breast implant status; Z95.818 Presence of other cardiac implants and grafts; Z88.8 Allergy status to other drugs, medicaments and biological substances
CPT/HCPCS: 93005

== ENCOUNTER → 2023-06-03 | Emergency (ER) | payer OTHER ==
[~2023-06-03] MED LIST changes: -ALBUTEROL 2.5 MG/3 ML NEB SOL ONE; +AMOX/K CLAV 875 MG TAB ONE; -ASPIRIN 81 MG CHEWABLE TABLET ONE; +CIPROFLOXACIN HCL 500 MG TAB ONE; +LEVALBUTEROL 1.25 MG/3 ML NEB ONE; -METHYLPREDNISOLONE 40 MG INJ ONE; -POTASSIUM CL SA 10 MEQ TAB PO ONE
[2023-06-03 18:27] LABS: Specific Gravity 1.009 (1.005-1.030); Sqamous Epithelial <5 /HPF (None Seen); Urine Bacteria None Seen /HPF (<20); Urine Bilirubin NEGATIVE (Negative); Urine Blood Negative (Negative); Urine Clarity Turbid (Clear); Urine Color Light-Yellow (Yellow); Urine Culture Reflex Order NOT NEEDED; Urine Glucose NEGATIVE (Negative); Urine Ketones NEGATIVE (Negative); Urine Microscopic Reflex YN ORDER UMIC; Urine Mucus Slight /HPF (None Seen); Urine Nitrite NEGATIVE (Negative); Urine Protein NEGATIVE (Negative); Urine RBC <5 /HPF (None Seen); Urine Urobilinogen Normal (Normal); Urine WBC <5 /HPF (<5)
--- NOTE | 2023-06-03 18:49 | RAD REPORT ---
EXAM DESCRIPTION: CT - Stone Protocol - 06/03/2023 6:25 pm CLINICAL HISTORY: Flank pain. FLANK PAIN COMPARISON: Abdomen Pelvis W Contrast dated 03/11/2023 TECHNIQUE: Axial images were obtained without oral or IV contrast. Lack of contrast limits solid org an and vascular assessment. The [id number] spans the entirety of the system partially obscuring uppermost abdomen and lung bases. Coronal reformatted images were obtained and reviewed. All CT scans are performed using dose optimization technique as appropriate and may include automated exposure control or mA/KV adjustment according to patient size. FINDINGS: The lower lung malin are clear. Calcified bilateral breast implants. Postsurgical changes involving the stomach. Cholecystectomy. Imaged portions of the liver and spleen show no suspicious findings on non-contrast imaging. The panc reas and adrenal glands are normal. No pathologic lymphadenopathy in the abdomen or pelvis. Moderate stool throughout the colon. No urinary tract stones or obstructive uropathy. No bowel obstruction, free air, free fluid or abscess. Normal appendix noted. Chronic wedge compression deformities at the thoracolumbar spine. No finding to suggest acute fractur e. IMPRESSION: No urinary tract stones or obstructive uropathy. Multiple chronic appearing wedge compression deformities of the thoracolumbar vertebra.
--- NOTE | 2023-06-03 18:58 | ER ---
Nurse's Notes [facility] Name: Reina Hartley Age: 67 yrs Sex: Female : 1955 Arrival Date: 06/03/2023 Time: 17:14 Bed 14 Private MD: Diagnosis: UTI/ Urinary tract infection, site not specified;Dysuria;Chronic atrial fibrillation;FDC (current) use of anticoagulants;COPD/ Chronic obstructive pulmonary disease, unspecified Presentation: 06/02 17:21 Chief complaint: Patient states: having trouble breathing and lower back pain since iw this morning . pt had two breathing treatments [employer], SOB improved. Coronavirus screen: Client presents with at least one sign or symptom that may indicate coronavirus-19. Ebola Screen: Patient negative for fever greater than or equal to 101.5 degrees Fahrenheit, and additional compatible Ebola Virus Disease symptoms Patient denies exposure to infectious person. Patient denies travel to an Ebola-affected area in the 21 days before illness onset. No symptoms or risks identified at this time. Initial Sepsis Screen: Does the patient meet any 2 criteria? HR > 90 bpm. Does the patient have a suspected source of infection? No. Patient's initial sepsis screen is negative. Risk Assessment: Do you want to hurt yourself or someone else? Patient reports no desire to harm self or others. Onset of symptoms was June 03, 2023. 17:21 Method Of Arrival: Wheelchair iw 17:21 Acuity: ANDREA 3 iw Triage Assessment: 17:22 General: Appears in no apparent distress. Behavior is calm, cooperative. Neuro: iw Shane Agitation-Sedation Scale (RASS): Level of Consciousness is awake, alert, obeys commands, Oriented to person, place, time, situation, Moves all extremities. Full function. Cardiovascular: Patient's skin is warm and dry. Rhythm is atrial fibrillation. Respiratory: Reports shortness of breath Onset: The symptoms/episode began/occurred today, the patient has mild shortness of breath. Derm: Skin is intact, is fragile. Musculoskeletal: Range of motion: intact in all extremities. Historical: - Allergies: 17:22 all depression medications; iw 17:22 Procardia; iw - PMHx: 17:22 Arthritis; Atrial fibrillation; diabetes mellitus; Hypertensive disorder; Myocardial iw infarction; - PSHx: 17:22 Appendectomy; breast augmentation; cardiac stent; Cholecystectomy; Gastric Bypass; iw hysterectomy; Left hip; - Immunization history:: Client reports receiving the 2nd dose of the Covid vaccine. - Social history:: Smoking status: Patient reports the use of cigarette tobacco products, smokes one-half pack cigarettes per day. Screenin:10 [facility] ED Fall Risk Assessment (Adult) History of falling in the last 3 months, me1 including since admission No falls in past 3 months (0 pts) Confusion or Disorientation No (0 pts) Intoxicated or Sedated No (0 pts) Impaired Gait No (0 pts) Mobility Assist Device Used No (0 pt) Altered Elimination No (0 pt) Score/Fall Risk Level 0 - 2 = Low Risk Maintained a safe environment, Provided non-skid footwear, Hourly rounding (assess needs \T\ fall precautionary measures) done. Abuse screen: Denies threats or abuse. Nutritional screening: No deficits noted. Tuberculosis screening: No symptoms or risk factors identified. Assessment: 17:40 Reassessment: pt ambulatory to water fountain , steady gait. iw 18:10 General: Appears uncomfortable, unkempt, Behavior is calm, cooperative, appropriate for me1 age, Reports burning with urination and lower back pain that started a week ago. Pain: Complains of pain in left low back and right low back Pain does not radiate. Pain currently is 10 out of 10 on a pain scale. Quality of pain is described as sharp, Pain began a week ago Is continuous. Neuro: Level of Consciousness is awake, alert, obeys commands, Oriented to person, place, time, situation, Appropriate for age. Cardiovascular: Patient's skin is warm and dry. Cardiovascular: No deficits noted. Respiratory: Airway is patent Respiratory effort is even, unlabored, Respiratory pattern is regular, symmetrical. Respiratory: Breath sounds are clear bilaterally. Respiratory: No deficits noted. : Reports burning with urination, pain lower quadrant(s) since a week ago. with urination, urinary frequency. Derm: Skin is pink, warm \T\ dry. 19:14 Reassessment: Patient appears in no apparent distress at this time. Patient and/or jb4 family updated on plan of care and expected duration. Pain level reassessed. Patient is alert, oriented x 3, equal unlabored respirations, skin warm/dry/pink. Vital Signs: 17:21 BP 155 / 93; Pulse 117; Resp 20; Temp 97.4; Pulse Ox 96% on R/A; Weight 58.97 kg; iw Height 5 ft. 2 in. ; Pain 10/10; 18:01 BP 159 / 99; Pulse 104; Resp 16; Pulse Ox 95% on R/A; me1 17:21 Body Mass Index 23.78 (58.97 kg, 157.48 cm) iw 17:21 Pain Scale: Adult ED Course: 17:19 Patient arrived in ED. mr 17:22 Triage completed. iw 17:23 Arm band placed on. iw 18:02 Elias Gamez MD is Attending Physician. savage 18:04 Kamilla Raya, WALI is Primary Nurse. me1 18:10 Patient has correct armband on for positive identification. Bed in low position. Call me1 light in reach. Side rails up X2. Provided Education on: POC. Verbalized understanding. . 18:10 Client placed on continuous cardiac and pulse oximetry monitoring. NIBP monitoring me1 applied. Pulse ox on. NIBP on. Warm blanket given. PO fluids given. 18:10 No provider procedures requiring assistance completed. me1 18:14 Urinalysis w/ reflexes Sent. me1 18:20 Urine collected: clean catch specimen, cloudy. me1 18:27 CT Stone Protocol In Process Unspecified. EDMS 18:57 David Irby MD is Referral Physician. savage 18:57 Ricardo Castillo MD is Referral Physician. savage 19:01 Chest Single View XRAY In Process Unspecified. EDMS 19:14 Patient did not have IV access during this emergency room visit. jb4 Administered Medications: 18:21 Drug: Ciprofloxacin PO 500 mg PO once Route: PO; me1 18:40 Follow up: Response: No adverse reaction me1 18:21 Drug: Levalbuterol Inhalation 2.5 mg Inhalation once Route: Inhalation; me1 18:39 Follow up: Response: No adverse reaction; Wheezing diminished me1 18:21 Drug: Ipratropium Inhalation Aerosol 0.5 mg Inhalation once Route: Inhalation; me1 18:39 Follow up: Response: No adverse reaction; Wheezing diminished me1 18:42 Drug: Amoxicillin-Clavulanate PO 875 mg PO once Route: PO; me1 Medication: 18:10 VIS not applicable for this client. me1 Outcome: 18:57 Discharge ordered by . savage 19:14 Discharged to home ambulatory, wilma 19:14 Condition: stable 19:14 Discharge instructions given to patient, Instructed on discharge instructions, follow up and referral plans. medication usage, Demonstrated understanding of instructions, follow-up care, medications, Prescriptions given X 5 19:14 Patient left the ED. jb4 Signatures: Dispatcher [employer] EDSC Elias Gamez MD MD cha Rivera, Elisa, Reg Reg mr Fany Deng RN RN iw Nigel Maria RN RN jb4 Kamilla Raya RN RN me1 Corrections: (The following items were deleted from the chart) 17:30 17:21 Chief complaint: Patient states: having trouble breathing and lower back pain iw since this morning iw
--- NOTE | 2023-06-03 18:58 | EDPHYS ---
Physician Documentation [facility] Name: Reina Hartley Age: 67 yrs Sex: Female : 1955 Arrival Date: 06/03/2023 Time: 17:14 Bed 14 Private MD: Elias Ivy HPI: 06/02 18:29 This 67 yrs old Female presents to ER via Wheelchair with complaints of asvage Breathing Difficulty. 18:29 The patient has shortness of breath at rest, with light activity. Onset: The savage symptoms/episode began/occurred 3 day(s) ago. Historical: - Allergies: 17:22 all depression medications; iw 17:22 Procardia; iw - PMHx: 17:22 Arthritis; Atrial fibrillation; diabetes mellitus; Hypertensive disorder; Myocardial iw infarction; - PSHx: 17:22 Appendectomy; breast augmentation; cardiac stent; Cholecystectomy; Gastric Bypass; iw hysterectomy; Left hip; - Immunization history:: Client reports receiving the 2nd dose of the Covid vaccine. - Social history:: Smoking status: Patient reports the use of cigarette tobacco products, smokes one-half pack cigarettes per day. ROS: 18:31 Constitutional: Negative for fever, chills, and weight loss, Eyes: Negative for injury, savage pain, redness, and discharge, ENT: Negative for injury, pain, and discharge, Neck: Negative for injury, pain, and swelling, Cardiovascular: Negative for chest pain, palpitations, and edema, Abdomen/GI: Negative for abdominal pain, nausea, vomiting, diarrhea, and constipation, Back: Negative for injury and pain, MS/Extremity: Negative for injury and deformity, Skin: Negative for injury, rash, and discoloration, Neuro: Negative for headache, weakness, numbness, tingling, and seizure, Psych: Negative for depression, anxiety, suicide ideation, homicidal ideation, and hallucinations, Allergy/Immunology: Negative for hives, rash, and allergies, Endocrine: Negative for neck swelling, polydipsia, polyuria, polyphagia, and marked weight changes, Hematologic/Lymphatic: Negative for swollen nodes, abnormal bleeding, and unusual bruising, 18:31 Respiratory: Positive for cough, shortness of breath, on exertion. 18:31 : Positive for urinary symptoms, urinary frequency, burning with urination, difficulty urinating, foul smelling urine, Exam: 18:31 Constitutional: This is a well developed, well nourished patient who is awake, alert, savage and in no acute distress. Head/Face: Normocephalic, atraumatic. Eyes: Pupils equal round and reactive to light, extra-ocular motions intact. Lids and lashes normal. Conjunctiva and sclera are non-icteric and not injected. Cornea within normal limits. Periorbital areas with no swelling, redness, or edema. ENT: Nares patent. No nasal discharge, no septal abnormalities noted. Tympanic membranes are normal and external auditory canals are clear. Oropharynx with no redness, swelling, or masses, exudates, or evidence of obstruction, uvula midline. Mucous membranes moist. Neck: Trachea midline, no thyromegaly or masses palpated, and no cervical lymphadenopathy. Supple, full range of motion without nuchal rigidity, or vertebral point tenderness. No Meningismus. Chest/axilla: Normal chest wall appearance and motion. Nontender with no deformity. No lesions are appreciated. Cardiovascular: Regular rate and rhythm with a normal S1 and S2. No gallops, murmurs, or rubs. Normal PMI, no JVD. No pulse deficits. Respiratory: Lungs have equal breath sounds bilaterally, clear to auscultation and percussion. No rales, rhonchi or wheezes noted. No increased work of breathing, no retractions or nasal flaring. Abdomen/GI: Soft, non-tender, with normal bowel sounds. No distension or tympany. No guarding or rebound. No evidence of tenderness throughout. Back: No spinal tenderness. No costovertebral tenderness. Full range of motion. Skin: Warm, dry with normal turgor. Normal color with no rashes, no lesions, and no evidence of cellulitis. MS/ Extremity: Pulses equal, no cyanosis. Neurovascular intact. Full, normal range of motion. Neuro: Awake and alert, GCS 15, oriented to person, place, time, and situation. Cranial nerves II-XII grossly intact. Motor strength 5/5 in all extremities. Sensory grossly intact. Cerebellar exam normal. Normal gait. Psych: Awake, alert, with orientation to person, place and time. Behavior, mood, and affect are within normal limits. 18:31 Musculoskeletal/extremity: DVT Exam: No signs of deep vein thrombosis. no pain, no swelling, no tenderness, negative Homans' sign noted on exam, no appreciated bluish discoloration, no erythema, no increased warmth, 18:48 ECG was reviewed by the Attending Physician. [facility] Vital Signs: 17:21 BP 155 / 93; Pulse 117; Resp 20; Temp 97.4; Pulse Ox 96% on R/A; Weight 58.97 kg; iw Height 5 ft. 2 in. ; Pain 10/10; 18:01 BP 159 / 99; Pulse 104; Resp 16; Pulse Ox 95% on R/A; me1 17:21 Body Mass Index 23.78 (58.97 kg, 157.48 cm) iw 17:21 Pain Scale: Adult iw MDM: 18:03 Patient medically screened. savage 18:48 Differential diagnosis: Anemia CHF exacerbation, Chronic Obstructive Pulmonary Disease savage nonspecific abdominal pain, urinary tract infection, pneumonia, reactive airway disease, Sepsis Unstable Angina. Antibiotic administration: The patient is discharged and will get outpatient antibiotics, Amoxicillin. Immunization status: Pneumococcal vaccine: within last 5 years. Influenza vaccine: within last 5 years. Data reviewed: vital signs, nurses notes, lab test result(s), urinalysis, EKG, radiologic studies. Consideration of Admission/Observation Escalation of care including admission/observation considered. I considered the following discharge prescriptions or medication management in the emergency department Medications were administered in the Emergency Department. See MAR. Test considered but Not performed: Labs: NO CBC, NO COMP MET. Historians other than the Patient: PT WELL INFORMED. Care significantly affected by the following chronic conditions: Diabetes, Hypertension, Chronic Obstructive Pulmonary Disease, Obesity. Counseling: I had a detailed discussion with the patient and/or guardian regarding the historical points, exam findings, and any diagnostic results supporting the discharge/admit diagnosis, the presence of at least one elevated blood pressure reading (>120/80) during this emergency department visit, radiology results, the need for outpatient follow up, for definitive care, a budget record clerk, a family practitioner, a soda clerk. 06/02 18:09 Order name: Urinalysis w/ reflexes; Complete Time: 18:29 [facility] 06/02 18:09 Order name: CT Stone Protocol [facility] 06/02 18:29 Order name: Chest Single View XRAY savage EC:48 Rate is 114 beats/min. Rhythm is irregularly irregular. QRS [place] is Normal. [place] interval savage is normal. QRS interval is normal. QT interval is normal. No Q waves. T waves are Normal. No ST changes noted. Clinical impression: Atrial Fibrillation and No evidence of ischemia. Interpreted by me. Reviewed by me. Administered Medications: 18:21 Drug: Ciprofloxacin PO 500 mg PO once Route: PO; me1 18:40 Follow up: Response: No adverse reaction me1 18:21 Drug: Levalbuterol Inhalation 2.5 mg Inhalation once Route: Inhalation; me1 18:39 Follow up: Response: No adverse reaction; Wheezing diminished me1 18:21 Drug: Ipratropium Inhalation Aerosol 0.5 mg Inhalation once Route: Inhalation; me1 18:39 Follow up: Response: No adverse reaction; Wheezing diminished me1 18:42 Drug: Amoxicillin-Clavulanate PO 875 mg PO once Route: PO; me1 Disposition Summary: 06/03/23 18:57 Discharge Ordered Notes: Location: Home savage Problem: new savage Symptoms: have improved savage Condition: Stable savage Diagnosis - UTI/ Urinary tract infection, site not specified savage - Dysuria savage - Chronic atrial fibrillation savage - senior care (current) use of anticoagulants savage - COPD/ Chronic obstructive pulmonary disease, unspecified savage Followup: savage - With: Private Physician - When: 2 - 3 days - Reason: Followup: savage - With: David Irby MD - When: 2 - 3 days - Reason: Recheck today's complaints, Re-evaluation by your physician Followup: savage - With: Ricardo Castillo MD - When: 2 - 3 days - Reason: Recheck today's complaints, Continuance of care, Re-evaluation by your physician Discharge Instructions: - Discharge Summary Sheet savage - Atrial Fibrillation savage - Dysuria savage - Urinary Tract Infection, Adult savage - Chronic Obstructive Pulmonary Disease Exacerbation savage - Urinary Tract Infection, Adult, [id number] savage - Chronic Obstructive Pulmonary Disease Exacerbation, [id number] savage Forms: - Medication Reconciliation Form savage - Thank You Letter savage - Antibiotic Education savage - Prescription Opioid Use savage - Patient Portal Instructions savage - Leadership Thank You Letter [facility] Prescriptions: - albuterol sulfate 90 mcg/actuation Inhalation HFA Aerosol Inhaler - inhale 2 inhalation INHALATION route every 4 to 6 hours as needed for shortness savage of breath or wheezing; 1 unit; Refills: 0, Product Selection Permitted - Eliquis 2.5 mg Oral tablet - take 1 tablet ORAL route 2 times per day; 60 tablet; Refills: 0, Product [facility] Selection Permitted - Augmentin 500-125 mg Oral tablet - take 1 tablet ORAL route every 8 hours for 7 days; 21 tablet; Refills: 0, [facility] Product Selection Permitted - Metoprolol Tartrate 25 mg Oral tablet - take 1 tablet ORAL route 2 times per day with a meal; 60 tablet; Refills: 0, [facility] Product Selection Permitted - Medrol (Ramses) 4 mg Oral Tablets, Dose Pack - take 1 tablet ORAL route as directed - follow package instructions; 1 packet; savage Refills: 0, Product Selection Permitted Signatures: Dispatcher [employer] Elias Cheng MD MD cha Williams, Irene, RN RN iw Kamilla Raya RN RN me1
--- NOTE | 2023-06-03 19:09 | RAD REPORT ---
EXAM DESCRIPTION: RAD - Chest Single View - 06/03/2023 6:59 pm CLINICAL HISTORY: COUGH Chest pain. COMPARISON: Chest Single View dated 05/30/2023; Chest Single View dated 05/22/2023; Chest Single View dated 05/22/2023; Chest Pa And Lat (2 Views) dated 05/18/2023 FINDINGS: Portable technique limits examination quality. The lungs are grossly clear. The heart is mildly enlarged. No displaced fractures. IMPRESSION: No acute intrathoracic process suspected.
[2023-06-03 19:51] VITALS: BP 159/99; TEMP 97.4; O2SAT 95
--- NOTE | 2023-06-06 14:25 | EKG ---
Test Date: 2023-06-03 Test Time: 16:29:16 [employer]: GABRIELLE MEASUREMENT RESULTS: Intervals: Rate: 114 NM: QRSD: 86 QT: 348 QTc: 479 [place]: P: NM: QRS: 51 T: 32 INTERPRETIVE STATEMENTS: Atrial fibrillation Abnormal ECG Compared to ECG 06/01/2023 04:05:30 Right-axis deviation no longer present T-wave abnormality no longer present Electronically Signed On 06-06-23 14:16:12 CDT by David Irby
== END ==
LOC: ER 17:14
DX: N39.0 Urinary tract infection, site not specified (principal); J44.9 Chronic obstructive pulmonary disease, unspecified; I48.20 Chronic atrial fibrillation, unspecified; Z79.01 Long term (current) use of anticoagulants; I10 Essential (primary) hypertension; F17.210 Nicotine dependence, cigarettes, uncomplicated; Z88.8 Allergy status to other drugs, medicaments and biological substances; Z98.82 Breast implant status; Z95.818 Presence of other cardiac implants and grafts
CPT/HCPCS: 81001; 76377; 74176; 71045; 99284; J7614; J7644; 93005

== ENCOUNTER → 2023-06-06 | Emergency (ER) | payer OTHER ==
[~2023-06-06] MED LIST changes: +ACETAMINOPHEN 500 MG TAB ONE; +APIXABAN 5 MG TABLET ONE; +AZITHROMYCIN 250 MG TAB ONE; -CIPROFLOXACIN HCL 500 MG TAB ONE; -IPRATROPIUM BROM 0.5MG/2.5ML ONE; +METOPROLOL TAR 25 MG TAB ONE; +predniSONE 20 MG TAB ONE
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
--- NOTE | 2023-06-06 11:37 | ER ---
Nurse's Notes [facility] Name: Reina Hartley Age: 67 yrs Sex: Female : 1955 Arrival Date: 06/06/2023 Time: 11:10 Bed IW4 Private MD: Diagnosis: COPD/ Chronic obstructive pulmonary disease, unspecified;Shortness of breath;Medication Refill Presentation: 06/05 11:24 Chief complaint: Patient states: "I have pain in my back and trouble breathing that mb9 started this morning.". Coronavirus screen: Vaccine status: Patient reports receiving the 2nd dose of the covid vaccine. Ebola Screen: No symptoms or risks identified at this time. Initial Sepsis Screen: Does the patient meet any 2 criteria? No. Patient's initial sepsis screen is negative. Does the patient have a suspected source of infection? No. Patient's initial sepsis screen is negative. Risk Assessment: Do you want to hurt yourself or someone else? Patient reports no desire to harm self or others. Onset of symptoms was June 06, 2023. 11:24 Method Of Arrival: EMS: [facility] mb9 11:24 Acuity: ANDREA 4 mb9 Triage Assessment: 11:25 General: Appears in no apparent distress. Behavior is calm, cooperative. Pain: mb9 Complains of pain in back Pain does not radiate. Pain currently is 10 out of 10 on a pain scale. Quality of pain is described as sharp, Pain began suddenly, Is intermittent. EENT: No signs and/or symptoms were reported regarding the EENT system. Neuro: Level of Consciousness is awake, alert, obeys commands, Oriented to person, place, time, situation, Appropriate for age. Cardiovascular: Patient's skin is warm and dry. Respiratory: Reports shortness of breath Airway is patent Respiratory effort is even, unlabored, Respiratory pattern is regular, agonal Breath sounds are clear bilaterally. Onset: The symptoms/episode began/occurred gradually, the patient has mild shortness of breath. GI: No signs and/or symptoms were reported involving the gastrointestinal system. : No signs and/or symptoms were reported regarding the genitourinary system. Derm: Skin is pink, warm \\T\\ dry. Musculoskeletal: Range of motion: intact in all extremities. Historical: - Allergies: 11:25 all depression medications; mb9 11:25 Procardia; mb9 - PMHx: 11:25 Arthritis; Atrial fibrillation; diabetes mellitus; Hypertensive disorder; Myocardial mb9 infarction; - PSHx: 11:25 Appendectomy; breast augmentation; cardiac stent; Cholecystectomy; Gastric Bypass; mb9 hysterectomy; Left hip; - Immunization history:: Adult Immunizations up to date. - Social history:: Smoking status: Patient reports the use of cigarette tobacco products, smokes one pack cigarettes per day. Screenin:26 [facility] ED Fall Risk Assessment (Adult) History of falling in the last 3 months, mb9 including since admission No falls in past 3 months (0 pts) Confusion or Disorientation No (0 pts) Intoxicated or Sedated No (0 pts) Impaired Gait No (0 pts) Mobility Assist Device Used No (0 pt) Altered Elimination No (0 pt) Score/Fall Risk Level 0 - 2 = Low Risk Oriented to surroundings, Maintained a safe environment, Educated pt \\T\\ family on fall prevention, incl call for assistance when getting out of bed. Abuse screen: Denies threats or abuse. Nutritional screening: No deficits noted. Tuberculosis screening: No symptoms or risk factors identified. Assessment: 11:27 Reassessment: No changes from previously documented assessment. Patient and/or family mb9 updated on plan of care and expected duration. Pain level reassessed. Patient is alert, oriented x 3, equal unlabored respirations, skin warm/dry/pink. Vital Signs: 11:24 Pulse 102; Resp 18; Temp 97.8; Pulse Ox 100% on R/A; Weight 58.97 kg; Height 5 ft. 2 mb9 in. ; Pain 10/10; 11:24 BP 163 / 89; mb9 11:24 Body Mass Index 23.78 (58.97 kg, 157.48 cm) mb9 11:24 Pain Scale: Adult mb9 ED Course: 11:12 Patient arrived in ED. mg5 11:15 Feroz Rush DO is Attending Physician. ms3 11:18 Ricardo Castillo MD is Referral Physician. ms3 11:18 Anup Holder DO is Referral Physician. ms3 11:24 Arm band placed on. mb9 11:25 Triage completed. mb9 11:26 No provider procedures requiring assistance completed. Patient did not have IV access mb9 during this emergency room visit. 11:27 Placed in gown. Bed in low position. Call light in reach. Side rails up X 1. Provided mb9 Education on: press call light if needing anything. Client placed on continuous cardiac and pulse oximetry monitoring. NIBP monitoring applied. Administered Medications: :28 Drug: Eliquis 2.5 mg PO once Route: PO; mb9 11:28 Drug: Metoprolol PO 25 mg PO once Route: PO; mb9 11:28 Drug: Amoxicillin-Clavulanate PO 500 mg PO once Route: PO; mb9 Medication: 11:27 VIS not applicable for this client. mb9 Outcome: 11:19 Discharge ordered by MD. ms3 11:36 Discharged to home ambulatory, mb9 11:36 Condition: stable 11:36 Discharge instructions given to patient, Instructed on discharge instructions, follow up and referral plans. Demonstrated understanding of instructions, follow-up care, medications, Prescriptions given X 4, 11:36 Patient left the ED. mb9 Signatures: Feroz Rush DO DO ms3 Elisa Rangel RN RN mb9 Imelda Polanco mg5
[2023-06-06 12:21] VITALS: BP 163/89; TEMP 97.8; O2SAT 100
== END ==
LOC: ER 11:10
DX: J44.9 Chronic obstructive pulmonary disease, unspecified (principal); Z76.0 Encounter for issue of repeat prescription; F17.210 Nicotine dependence, cigarettes, uncomplicated; Z88.8 Allergy status to other drugs, medicaments and biological substances; Z95.818 Presence of other cardiac implants and grafts; Z98.82 Breast implant status
CPT/HCPCS: 99284

== ENCOUNTER → 2023-06-08 | Emergency (ER) | payer OTHER ==
--- NOTE | 2023-06-08 11:52 | RAD REPORT ---
EXAM DESCRIPTION: RAD - Chest Pa And Lat (2 Views) - 06/08/2023 11:29 am CLINICAL HISTORY: DYSPNEA COMPARISON: Chest Single View dated 06/03/2023; Chest Single View dated 05/30/2023; Chest Single View dated 05/22/2023; Chest Single View dated 05/22/2023 TECHNIQUE: PA and lateral views of the chest were obtained. FINDINGS: The lungs are clear. Heart size is normal and central vasculature is within normal limits. No pleural effusion or pneumothorax seen. No acute bony finding noted. IMPRESSION: No acute cardiopulmonary process.
--- NOTE | 2023-06-08 13:10 | ER ---
Nurse's Notes [facility] [place] Name: Reina Hartley Age: 67 yrs Sex: Female : 1955 Arrival Date: 06/08/2023 Time: 10:44 Bed DX4 Private MD: Diagnosis: COPD/ Chronic obstructive pulmonary disease with (acute) exacerbation Presentation: 06/07 10:49 Chief complaint: SOB x 2 hours. Coronavirus screen: At this time, the client does not hb indicate any symptoms associated with coronavirus-19. Ebola Screen: No symptoms or risks identified at this time. Initial Sepsis Screen: Does the patient meet any 2 criteria? No. Patient's initial sepsis screen is negative. Does the patient have a suspected source of infection? No. Patient's initial sepsis screen is negative. Risk Assessment: Do you want to hurt yourself or someone else? Patient reports no desire to harm self or others. Onset of symptoms was June 08, 2023. 10:49 Method Of Arrival: EMS: [facility] hb 10:49 Acuity: ANDREA 3 hb Triage Assessment: 10:50 General: Appears in no apparent distress. Behavior is calm, cooperative. Pain: Pain hb currently is 10 out of 10 on a pain scale. Neuro: Level of Consciousness is awake, alert, obeys commands, Oriented to person, place, time, situation. Cardiovascular: Patient's skin is warm and dry. Respiratory: Reports shortness of breath Respiratory effort is even, unlabored, Respiratory pattern is regular, symmetrical, Onset: The symptoms/episode began/occurred just prior to arrival, the patient has mild shortness of breath. Musculoskeletal: Reports chronic low back pain 10. Historical: - Allergies: 10:50 all depression medications; hb 10:50 Procardia; hb - PMHx: 10:50 Arthritis; Atrial fibrillation; diabetes mellitus; Hypertensive disorder; Myocardial hb infarction; - PSHx: 10:50 Appendectomy; breast augmentation; cardiac stent; Cholecystectomy; Gastric Bypass; hb hysterectomy; Left hip; - Immunization history:: Adult Immunizations up to date. - Social history:: Smoking status: Patient reports the use of cigarette tobacco products, smokes one-half pack cigarettes per day. - Family history:: not pertinent. - Hospitalizations: : No recent hospitalization is reported. Assessment: 12:38 General: Pt provided with snacks from the nutrition area. Pt requesting a prescription kd3 for pain medicine and Valium. . Cardiovascular: Rhythm is regular. Respiratory: Airway is patent Breath sounds are clear bilaterally. Vital Signs: 10:49 BP 135 / 84; Pulse 83; Resp 18; Temp 98.1; Pulse Ox 100% on R/A; Weight 58.97 kg; hb Height 5 ft. 2 in. ; Pain 10/10; 10:49 Body Mass Index 23.78 (58.97 kg, 157.48 cm) hb 10:49 Pain Scale: Adult hb ED Course: 10:33 EKG done, by ED staff, reviewed by Bill Edwards MD. hb 10:45 Patient arrived in ED. rg4 10:48 Bill Edwards MD is Attending Physician. rn 10:50 Triage completed. hb 10:50 Arm band placed on. hb 11:21 XRAY Chest Pa And Lat (2 Views) In Process Unspecified. EDMS 12:16 Eileen Arreaga, WALI is Primary Nurse. kd3 Administered Medications: 12:24 Drug: predniSONE PO 60 mg PO once Route: PO; kd3 12:24 Drug: Levalbuterol Inhalation 1.25 mg Inhalation once Route: Inhalation; kd3 Outcome: 13:09 Discharge ordered by MD. rn 13:19 Patient left the ED. iw Signatures: Dispatcher [employer] Fany Nunez, Bill Goff RN, MD MD rn Baxter, Heather, RN RN hb Garcia, Rubi rg4 Eileen Arreaga RN RN kd3
--- NOTE | 2023-06-08 13:10 | EDPHYS ---
Physician Documentation [facility] Name: Reina Hartley Age: 67 yrs Sex: Female : 1955 Arrival Date: 06/08/2023 Time: 10:44 Bed DX4 Private MD: ED Physician Bill Edwards HPI: 06/07 13:07 This 67 yrs old Female presents to ER via EMS with complaints of Shortness Of Breath. rn 13:07 The patient has shortness of breath at rest, with light activity. Onset: The rn symptoms/episode began/occurred at an unknown time. Duration: The symptoms are intermittent. The patient's shortness of breath is aggravated by light activity, is alleviated by inhaler. Associated signs and symptoms: Pertinent negatives: chest pain, fever, hemoptysis. Severity of symptoms: At their worst the symptoms were mild in the emergency department the symptoms are unchanged. The patient has experienced similar episodes in the past. Patient reports intermittent shortness of breath. No fever. No productive cough. No hemoptysis. No trauma. Patient reports inhaler helps. Historical: - Allergies: 10:50 all depression medications; hb 10:50 Procardia; hb - PMHx: 10:50 Arthritis; Atrial fibrillation; diabetes mellitus; Hypertensive disorder; Myocardial hb infarction; - PSHx: 10:50 Appendectomy; breast augmentation; cardiac stent; Cholecystectomy; Gastric Bypass; hb hysterectomy; Left hip; - Immunization history:: Adult Immunizations up to date. - Social history:: Smoking status: Patient reports the use of cigarette tobacco products, smokes one-half pack cigarettes per day. - Family history:: not pertinent. - Hospitalizations: : No recent hospitalization is reported. ROS: 13:07 Constitutional: Negative for fever, chills, and weight loss, Cardiovascular: Negative rn for chest pain, palpitations, and edema, Respiratory: Positive for shortness of breath Abdomen/GI: Negative for abdominal pain, nausea, vomiting, diarrhea, and constipation, MS/Extremity: Negative for injury and deformity, Skin: Negative for injury, rash, and discoloration, Neuro: Negative for headache, weakness, numbness, tingling, and seizure, Exam: 13:07 Constitutional: This is a well developed, well nourished patient who is awake, alert, rn and in no acute distress. Cardiovascular: Regular rate and rhythm. No pulse deficits. Respiratory: No increased work of breathing, no retractions or nasal flaring. Abdomen/GI: Soft, non-tender MS/ Extremity: Pulses equal, no cyanosis. Neurovascular intact. Full, normal range of motion. Equal circumference. Neuro: Awake and alert, GCS 15 Vital Signs: 10:49 BP 135 / 84; Pulse 83; Resp 18; Temp 98.1; Pulse Ox 100% on R/A; Weight 58.97 kg; hb Height 5 ft. 2 in. ; Pain 10/10; 10:49 Body Mass Index 23.78 (58.97 kg, 157.48 cm) hb 10:49 Pain Scale: Adult hb MDM: 10:48 Patient medically screened. rn 13:07 Differential diagnosis: Anxiety Reaction Chronic Obstructive Pulmonary Disease rn pneumonia, Pneumothorax. Data reviewed: vital signs, nurses notes, EKG, radiologic studies, plain films, and as a result, I will discharge patient. Counseling: I had a detailed discussion with the patient and/or guardian regarding the historical points, exam findings, and any diagnostic results supporting the discharge/admit diagnosis, lab results, radiology results, the need for outpatient follow up, to return to the emergency department if symptoms worsen or persist or if there are any questions or concerns that arise at home. Special discussion: I discussed with the patient/guardian in detail that at this point there is no indication for admission to the hospital. It is understood, however, that if the symptoms persist or worsen the patient needs to return immediately for re-evaluation. 06/07 10:48 Order name: XRAY Chest Pa And Lat (2 Views); Complete Time: 12:09 rn 06/07 10:48 Order name: EKG; Complete Time: 10:48 rn 06/07 10:48 Order name: EKG - Nurse/Tech; Complete Time: 11:56 rn Administered Medications: 12:24 Drug: predniSONE PO 60 mg PO once Route: PO; kd3 12:24 Drug: Levalbuterol Inhalation 1.25 mg Inhalation once Route: Inhalation; kd3 Disposition Summary: 06/08/23 13:09 Discharge Ordered Notes: Location: Home rn Problem: new rn Symptoms: have improved rn Condition: Stable rn Diagnosis - COPD/ Chronic obstructive pulmonary disease with (acute) exacerbation rn Followup: rn - With: Private Physician - When: As needed - Reason: Recheck today's complaints, Re-evaluation by your physician Discharge Instructions: - Discharge Summary Sheet rn - Chronic Obstructive Pulmonary Disease Exacerbation rn Forms: - Medication Reconciliation Form rn - Thank You Letter rn - Antibiotic warning coordination meteorologist - Prescription Opioid Use rn - Patient Portal Instructions rn - Leadership Thank You Letter rn Prescriptions: - Prednisone 20 mg Oral Tablet - take 3 tablets ORAL route once daily for 5 days; 15 tablet; Refills: 0, Product rn Selection Permitted Signatures: Dispatcher [employer] EDBill Chacon MD MD rn Baxter, Heather RN Eileen Ramirez RN RN kd3
[2023-06-08 13:54] VITALS: BP 135/84; TEMP 98.1; O2SAT 100
--- NOTE | 2023-06-09 14:00 | EKG ---
Test Date: 2023-06-08 Test Time: 16:48:06 Director Of Solutions Architecture: HB MEASUREMENT RESULTS: Intervals: Rate: 110 DC: QRSD: 88 QT: 378 QTc: 511 [place]: P: DC: QRS: 42 T: 176 INTERPRETIVE STATEMENTS: Atrial fibrillation with rapid ventricular response ST & T wave abnormality, consider inferolateral ischemia Abnormal ECG Compared to ECG 06/03/2023 16:29:16 ST (T wave) deviation now present Possible ischemia now present Electronically Signed On 06-09-23 13:59:30 CDT by David Irby
== END ==
LOC: ER 10:44
DX: J44.1 Chronic obstructive pulmonary disease with (acute) exacerbation (principal); F17.210 Nicotine dependence, cigarettes, uncomplicated; I10 Essential (primary) hypertension; Z95.818 Presence of other cardiac implants and grafts; Z98.82 Breast implant status; Z88.8 Allergy status to other drugs, medicaments and biological substances
CPT/HCPCS: 71046; 93005

== ENCOUNTER → 2023-06-08 | Emergency (ER) | payer OTHER ==
[2023-06-08 18:20] LABS: Absolute Basophils 0.1 K/uL (0-0.5); Absolute Lymphocytes (CBC) 0.2 K/uL (0.7-4.9); Eosinophils % 0.1 % (0-4.4); Hematocrit 29.3 % (36.0-45.0); Hemoglobin 9.6 g/dL (12.0-15.0); Lymphocytes % 3.5 % (15.3-44.8); MCH 27.3 pg (27.0-35.0); MCHC 32.8 g/dL (32.0-36.0); MCV 83.1 fL (80-100); MPV 7.7 fL (7.6-11.3); Monocytes % 0.3 % (3.3-12.3); Neutrophils % 95.1 % (41.7-73.7); Platelets 225 thou/uL (152-406); RBC Red Blood Cell Count 3.52 M/uL (3.86-4.86); Red Cell Distribution Width 25.4 % (12.1-15.2)
[2023-06-08 18:42] LABS: Anion Gap 8.9 mEq/L (5.0-15.0); Magnesium 2.1 mg/dL (1.6-2.4); Potassium 3.9 mEq/L (3.5-5.1); Troponin High Sensitivity 10.8 pg/mL (<58.9)
--- NOTE | 2023-06-08 18:45 | RAD REPORT ---
EXAM DESCRIPTION: Deion Single View06/08/2023 5:48 pm CLINICAL HISTORY: Chest pain COMPARISON: May 30, 2023 FINDINGS: Mild opacity mid to lower left lung may represent a pneumonia The remainder lungs appear clear of acute infiltrate. Old rib fracture Heart is mildly enlarged
[2023-06-08 18:46] LABS: White Blood Cell Scan OK (OK)
[2023-06-08 18:47] LABS: Anisocytosis 3+; Blood Morphology Comment NOTED (NOT SEEN); Platelet Estimate ADEQ
--- NOTE | 2023-06-08 20:47 | ER ---
Nurse's Notes [facility] Name: Reina Hartley Age: 67 yrs Sex: Female : 1955 Arrival Date: 06/08/2023 Time: 16:44 Bed 12 Private MD: Diagnosis: Chest pain, unspecified Presentation: 06/07 16:51 Chief complaint: Midsternal chest pain x 30 minures. Coronavirus screen: At this time, hb the client does not indicate any symptoms associated with coronavirus-19. Ebola Screen: No symptoms or risks identified at this time. Initial Sepsis Screen: Does the patient meet any 2 criteria? No. Patient's initial sepsis screen is negative. Does the patient have a suspected source of infection? No. Patient's initial sepsis screen is negative. Risk Assessment: Do you want to hurt yourself or someone else? Patient reports no desire to harm self or others. Onset of symptoms was June 08, 2023. 16:51 Method Of Arrival: Ambulatory hb 16:51 Acuity: ANDREA 3 hb Triage Assessment: 16:52 General: Appears in no apparent distress. Behavior is calm, cooperative. Pain: Pain hb currently is 10 out of 10 on a pain scale. Neuro: Level of Consciousness is awake, alert, obeys commands, Oriented to person, place, time, situation. Cardiovascular: Reports chest pain, Patient's skin is warm and dry. Rhythm is regular. Respiratory: Respiratory effort is even, unlabored, Respiratory pattern is regular, symmetrical. Historical: - Allergies: 16:52 all depression medications; hb 16:52 Procardia; hb - Home Meds: 16:52 None [Active]; hb - PMHx: 16:52 Arthritis; Atrial fibrillation; diabetes mellitus; Hypertensive disorder; Myocardial hb infarction; - PSHx: 16:52 Appendectomy; breast augmentation; cardiac stent; Cholecystectomy; Gastric Bypass; hb hysterectomy; Left hip; - Immunization history:: Adult Immunizations up to date. - Social history:: Smoking status: Patient reports the use of cigarette tobacco products, smokes two packs cigarettes per day. Screenin:00 [facility] ED Fall Risk Assessment (Adult) History of falling in the last 3 months, me1 including since admission No falls in past 3 months (0 pts) Confusion or Disorientation No (0 pts) Intoxicated or Sedated No (0 pts) Impaired Gait No (0 pts) Mobility Assist Device Used No (0 pt) Altered Elimination No (0 pt) Score/Fall Risk Level 0 - 2 = Low Risk Maintained a safe environment, Provided non-skid footwear, Hourly rounding (assess needs \T\ fall precautionary measures) done. Abuse screen: Denies threats or abuse. Nutritional screening: No deficits noted. Tuberculosis screening: No symptoms or risk factors identified. Assessment: 17:00 General: Appears uncomfortable, unkempt, Behavior is calm, cooperative, appropriate for me1 age, Reports midsternal chest pain. Pain: Complains of pain in chest Pain does not radiate. Pain currently is 10 out of 10 on a pain scale. Quality of pain is described as sharp, Pain began suddenly, 30 min ago. Is continuous. Neuro: Level of Consciousness is awake, alert, obeys commands, Oriented to person, place, time, situation, Appropriate for age. Cardiovascular: Patient's skin is warm and dry. Respiratory: Airway is patent Respiratory effort is even, unlabored, Respiratory pattern is regular, symmetrical. GI: No signs and/or symptoms were reported involving the gastrointestinal system. : No signs and/or symptoms were reported regarding the genitourinary system. Derm: Skin is pink, warm \T\ dry. Musculoskeletal: No signs and/or symptoms reported regarding the musculoskeletal system. 19:01 General: Pt provided with 2 milks, 2 warm blankets, 4 puddings, a chicken broth meal kd3 tray, gram crackers and medications for a headache. Pt has no new requests at this time. All needs met. . 19:45 General: Pt provided with 2 more blankets, water, josue yordan. . kd3 19:50 Reassessment: Patient appears in no apparent distress at this time. Patient and/or nj1 family updated on plan of care and expected duration. Pain level reassessed. Patient is alert, oriented x 3, equal unlabored respirations, skin warm/dry/pink. Pt does not want blood pressure cuff, pulse ox and/or cardiac monitoring on. RN attempts education, pt refuses. 20:56 Reassessment: Patient appears in no apparent distress at this time. Patient is alert, nj1 oriented x 3, equal unlabored respirations, skin warm/dry/pink. Pt refusing discharge vital sign assessment. Collecting food provided earlier during visit. 20:57 Reassessment: Security outside of room. nj1 Vital Signs: 16:51 BP 152 / 96; Pulse 89; Resp 20; Temp 97(TE); Pulse Ox 99% on R/A; Weight 58.97 kg; hb Height 5 ft. 2 in. ; Pain 10/10; 16:51 Body Mass Index 23.78 (58.97 kg, 157.48 cm) hb 16:51 Pain Scale: Adult hb ED Course: 16:47 Patient arrived in ED. ae5 16:52 Triage completed. hb 16:52 Arm band placed on. hb 16:56 EKG done, by ED staff, reviewed by Cami ESPARZA. hb 16:59 Cami Anderson FNP-C is PHCP. kb 16:59 Elias Gamez MD is Attending Physician. kb 17:00 Client placed on continuous cardiac and pulse oximetry monitoring. NIBP monitoring me1 applied. athletic monitor on. Pulse ox on. NIBP on. 17:00 Patient has correct armband on for positive identification. Bed in low position. Call me1 light in reach. Side rails up X 1. Provided Education on: POC. Verbalized understanding. . 17:00 No provider procedures requiring assistance completed. Patient maintains SpO2 me1 saturation greater than 95% on room air. 17:01 Thermoregulation: warm blanket given to patient. hb 17:25 Kamilla Raya, RN is Primary Nurse. me1 17:49 XRAY Chest (1 view) In Process Unspecified. EDMS 18:10 Inserted saline lock: 22 gauge in left forearm, using aseptic technique. me1 18:10 Basic Metabolic Panel Sent. me1 18:11 CBC with Diff Sent. me1 18:11 Magnesium Sent. me1 18:11 Troponin HS Sent. me1 18:11 NT PRO-BNP Sent. me1 18:11 Initial lab(s) drawn, by tx, sent to lab. me1 20:59 IV discontinued, intact, bleeding controlled, Pressure dressing applied. nj1 Administered Medications: 19:00 Drug: Acetaminophen PO 1000 mg PO once Route: PO; kd3 20:59 Follow up: Response: No adverse reaction nj1 19:00 Drug: AZITHromycin PO 500 mg PO once Route: PO; kd3 20:59 Follow up: Response: No adverse reaction nj1 Medication: 17:00 VIS not applicable for this client. me1 Outcome: 20:46 Discharge ordered by . diane 20:58 Discharged to home ambulatory, nj1 20:58 Condition: stable 20:58 Discharge instructions given to patient, Instructed on discharge instructions, follow up and referral plans. medication usage, Demonstrated understanding of instructions, follow-up care, medications, Prescriptions given X 1, 20:59 Patient left the ED. nj1 Signatures: Dispatcher [employer] EDWV Cami Anderson, INTELLIGENCE GROUP SUPERVISOR-C INTELLIGENCE GROUP SUPERVISOR-CkLissett Adam, RN RN Eileen Arreaga RN RN kd3 Leigha Berrios RN RN nj1 Kamilla Raya, RN RN me1 Audrey Peñaloza ae5 Corrections: (The following items were deleted from the chart) 20:56 19:50 Reassessment: Patient appears in no apparent distress at this time. Patient nj1 and/or family updated on plan of care and expected duration. Pain level reassessed. Patient is alert, oriented x 3, equal unlabored respirations, skin warm/dry/pink. nj1
--- NOTE | 2023-06-08 20:47 | EDPHYS ---
Physician Documentation [facility] Name: Reina Hartley Age: 67 yrs Sex: Female : 1955 Arrival Date: 06/08/2023 Time: 16:44 Bed 12 Private MD: YARITZA Physician Elias Gamez HPI: 06/07 17:04 This 67 yrs old Female presents to ER via Ambulatory with complaints of Chest Pain > 30 kb y/o. 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 Denies radiating pain, nausea, diaphoresis. 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 . Historical: - Allergies: 16:52 all depression medications; hb 16:52 Procardia; hb - Home Meds: 16:52 None [Active]; hb - PMHx: 16:52 Arthritis; Atrial fibrillation; diabetes mellitus; Hypertensive disorder; Myocardial hb infarction; - PSHx: 16:52 Appendectomy; breast augmentation; cardiac stent; Cholecystectomy; Gastric Bypass; hb hysterectomy; Left hip; - Immunization history:: Adult Immunizations up to date. - Social history:: Smoking status: Patient reports the use of cigarette tobacco products, smokes two packs cigarettes per day. ROS: 17:04 Constitutional: As per HPI kb Exam: 17:04 Constitutional: This is a well developed, well nourished patient who is awake, alert, kb and in no acute distress. Head/Face: Normocephalic, atraumatic. ENT: Moist Mucous membranes Cardiovascular: Regular rate Respiratory: Respirations even and unlabored. No increased work of breathing. Talking in full sentences Skin: Warm, dry with normal turgor. Normal color. MS/ Extremity: Pulses equal, no cyanosis. Neurovascular intact. Full, normal range of motion. Neuro: Awake and alert, GCS 15, oriented to person, place, time, and situation. Moves all extremities. Normal gait. Vital Signs: 16:51 BP 152 / 96; Pulse 89; Resp 20; Temp 97(TE); Pulse Ox 99% on R/A; Weight 58.97 kg; hb Height 5 ft. 2 in. ; Pain 10/10; 16:51 Body Mass Index 23.78 (58.97 kg, 157.48 cm) hb 16:51 Pain Scale: Adult hb MDM: 16:59 Patient medically screened. kb 17:06 Differential diagnosis: abnormal EKG, acute myocardial infarction, anxiety, coronary kb artery disease. Data reviewed: vital signs, nurses notes. Care significantly affected by the following Social Determinants of Health: Inadequate housing. 20:53 Consideration of Admission/Observation Escalation of care including kb admission/observation considered. admission considered for chest pain, but pt resting comfortably, has not had any chest pain since arrival, serial troponin normal. Counseling: I had a detailed discussion with the patient and/or guardian regarding the historical points, exam findings, and any diagnostic results supporting the discharge/admit diagnosis, lab results, radiology results, the need for outpatient follow up, a family practitioner, to return to the emergency department if symptoms worsen or persist or if there are any questions or concerns that arise at home. 06/07 17:00 Order name: Basic Metabolic Panel; Complete Time: 18:43 kb 06/07 17:00 Order name: CBC with Diff; Complete Time: 18:47 kb 06/07 17:00 Order name: Magnesium; Complete Time: 18:43 kb 06/07 17:00 Order name: NT PRO-BNP; Complete Time: 18:43 kb 06/07 17:00 Order name: Troponin HS; Complete Time: 18:43 kb 06/07 18:47 Order name: CBC Smear Scan; Complete Time: 18:47 EDMS 06/07 19:43 Order name: Troponin High Sensitivity; Complete Time: 20:46 kb 06/07 17:00 Order name: XRAY Chest (1 view); Complete Time: 18:47 kb 06/07 17:00 Order name: EKG; Complete Time: 17:00 kb 06/07 17:00 Order name: Cardiac monitoring; Complete Time: 19:55 kb 06/07 17:00 Order name: EKG - Nurse/Tech; Complete Time: 17:47 kb 06/07 17:00 Order name: IV Saline Lock; Complete Time: 18:10 kb 06/07 17:00 Order name: Labs collected and sent; Complete Time: 18:10 kb 06/07 17:00 Order name: O2 Per Protocol; Complete Time: 18:10 kb 06/07 17:00 Order name: O2 Sat Monitoring; Complete Time: 18:10 kb Administered Medications: 19:00 Drug: Acetaminophen PO 1000 mg PO once Route: PO; kd3 20:59 Follow up: Response: No adverse reaction nj1 19:00 Drug: AZITHromycin PO 500 mg PO once Route: PO; kd3 20:59 Follow up: Response: No adverse reaction nj1 Disposition Summary: 06/08/23 20:46 Discharge Ordered Notes: Location: Home kb Condition: Stable kb Diagnosis - Chest pain, unspecified kb Followup: kb - With: Emergency Department - When: As needed - Reason: Worsening of condition Followup: kb - With: Private Physician - When: 2 - 3 days - Reason: Recheck today's complaints, Continuance of care, Re-evaluation by your physician Discharge Instructions: - Discharge Summary Sheet kb - Nonspecific Chest Pain, Adult kb - Community-Acquired Pneumonia, Adult, [id number] kb Forms: - Medication Reconciliation Form kb - Thank You Letter kb - Antibiotic Education kb - Prescription Opioid Use kb - Patient Portal Instructions kb - Leadership Thank You Letter kb Prescriptions: - Zithromax 500 mg Oral Tablet - take 1 tablet ORAL route once daily for 5 days; 5 tablet; Refills: 0, Product kb Selection Permitted Signatures: Dispatcher [employer] EDCami Phan, MONITORING AND EVALUATION ADVISOR-C MONITORING AND EVALUATION ADVISOR-Ckb Lissett Chavis, RN RN Eileen Dumont RN RN kd3 Leigha Berrios RN nj1
[2023-06-08 21:14] VITALS: BP 152/96; TEMP 97; O2SAT 99
== END ==
LOC: ER 16:44
DX: R07.9 Chest pain, unspecified (principal); I10 Essential (primary) hypertension; I48.91 Unspecified atrial fibrillation; F17.210 Nicotine dependence, cigarettes, uncomplicated; Z95.818 Presence of other cardiac implants and grafts; Z98.82 Breast implant status; Z88.8 Allergy status to other drugs, medicaments and biological substances
CPT/HCPCS: 36415; 71045; 80048; 83735; 83880; 84484; 85025; 93005

== ENCOUNTER 2023-06-11 00:41 | Emergency (ER) | payer OTHER ==
[2023-06-11] MEDS ORDERED: IPRATROPIUM BROM 0.5MG/2.5ML ONE (01:19)
[2023-06-11] MEDS ORDERED: ALBUTEROL 2.5 MG/3 ML NEB SOL ONE (01:19)
[2023-06-11] MEDS ORDERED: predniSONE 20 MG TAB ONE (01:20)
[2023-06-11 01:30] LABS: Absolute Basophils 0.1 K/uL (0-0.5); Absolute Lymphocytes (CBC) 1.2 K/uL (0.7-4.9); Absolute Monocytes 0.3 K/uL (0.1-1.3); Absolute Neutrophil 3.3 K/uL (1.8-8.0); Basophils % 1.3 % (0-1.3); Eosinophils % 0.7 % (0-4.4); Hematocrit 32.1 % (36.0-45.0); Hemoglobin 10.5 g/dL (12.0-15.0); Lymphocytes % 24.3 % (15.3-44.8); MCH 27.2 pg (27.0-35.0); MCHC 32.5 g/dL (32.0-36.0); MCV 83.6 fL (80-100); MPV 7.8 fL (7.6-11.3); Monocytes % 6.5 % (3.3-12.3); Neutrophils % 67.2 % (41.7-73.7); Nucleated Red Blood Cells % 0.2 % (0-0); Platelets 234 thou/uL (152-406); RBC Red Blood Cell Count 3.84 M/uL (3.86-4.86); Red Cell Distribution Width 26.8 % (12.1-15.2)
[2023-06-11 01:54] LABS: Albumin 3.2 g/dL (3.4-5.0); Anion Gap 9.7 mEq/L (5.0-15.0); Bilirubin Direct 0.1 mg/dL (0-0.2); Bilirubin Indirect, Calculated 0.3 mg/dL (0.2-0.8); Bilirubin Total 0.4 mg/dL (0.2-1.0); Globulin 3.1 g/dL (2.3-3.5); Magnesium 2.1 mg/dL (1.6-2.4); Potassium 3.7 mEq/L (3.5-5.1); Protein, Total 6.3 g/dL (6.4-8.2); Troponin High Sensitivity 16.9 pg/mL (<58.9)
--- NOTE | 2023-06-11 02:01 | EDPHYS ---
Physician Documentation [facility] Name: Reina Hartley Age: 67 yrs Sex: Female : 1955 Arrival Date: 06/11/2023 Time: 00:41 Bed IW9 Private MD: ED Physician Rich Anand HPI: 06/10 04:02 This 67 yrs old Female presents to ER via EMS with complaints of Shortness Of Breath. rt 04:02 Patient with history of COPD presents to the ED with dyspnea. She told triage nurse rt that she had chest pain, she denies chest pain to me. She reports chronic back pain. Patient was seen recently for COPD exacerbation, does not feel her steroids. States that they are at the [facility] pharmacy. Denies other acute complaints at this time, symptoms are moderate in severity, no other aggravating or elevating factors. Historical: - Allergies: 00:47 all depression medications; cm10 00:47 Procardia; cm10 - PMHx: 00:47 Arthritis; Atrial fibrillation; diabetes mellitus; Hypertensive disorder; Myocardial cm10 infarction; - PSHx: 00:47 Appendectomy; breast augmentation; cardiac stent; Cholecystectomy; Gastric Bypass; cm10 hysterectomy; Left hip; - Immunization history:: Adult Immunizations up to date. - Social history:: Smoking status: Patient reports the use of cigarette tobacco products, unknown amount. - Family history:: not pertinent. ROS: 04:02 Constitutional: Negative for fever, chills, and weight loss, Cardiovascular: Negative rt for chest pain, palpitations, and edema, Abdomen/GI: Negative for abdominal pain, nausea, vomiting, diarrhea, and constipation, MS/Extremity: Negative for injury and deformity, Skin: Negative for injury, rash, and discoloration, Neuro: Negative for headache, weakness, numbness, tingling, and seizure, 04:02 Respiratory: Positive for cough, shortness of breath, wheezing, Exam: 04:02 Constitutional: This is a well developed, well nourished patient who is awake, alert, rt and in no acute distress. Head/Face: Normocephalic, atraumatic. Chest/axilla: Normal chest wall appearance and motion. Nontender with no deformity. No lesions are appreciated. Cardiovascular: Regular rate and rhythm with a normal S1 and S2. No gallops, murmurs, or rubs. Normal PMI, no JVD. No pulse deficits. Abdomen/GI: Soft, non-tender, with normal bowel sounds. No distension or tympany. No guarding or rebound. No evidence of tenderness throughout. MS/ Extremity: Pulses equal, no cyanosis. Neurovascular intact. Full, normal range of motion. Neuro: Awake and alert, GCS 15, oriented to person, place, time, and situation. Cranial nerves II-XII grossly intact. Motor strength 5/5 in all extremities. Sensory grossly intact. Cerebellar exam normal. Normal gait. Psych: Awake, alert, with orientation to person, place and time. Behavior, mood, and affect are within normal limits. 04:02 ECG was reviewed by the Attending Physician. 04:02 Respiratory: Faint wheezes heard on all lung malin, no respiratory distress, Vital Signs: 00:46 Weight 61.69 kg; Height 5 ft. 2 in. ; cm10 00:50 BP 166 / 105; Pulse 103; Resp 24; Temp 97.6; Pulse Ox 100% on R/A; Pain 10/10; cm10 00:46 Body Mass Index 24.87 (61.69 kg, 157.48 cm) cm10 00:50 Pain Scale: Adult cm10 MDM: 00:48 Patient medically screened. rt 04:02 Differential diagnosis: COPD, pneumonia. Data reviewed: vital signs, nurses notes, lab rt test result(s), EKG, radiologic studies. Consideration of Admission/Observation Escalation of care including admission/observation considered. I considered the following discharge prescriptions or medication management in the emergency department Medications were administered in the Emergency Department. See MAR. Independent interpretation of the following test(s) in the Emergency Department X-Ray: My interpretation is No pneumonia seen on interpretation of x-ray images. Test considered but Not performed: CT: Low suspicion for PE, CT angiogram not indicated. Care significantly affected by the following chronic conditions: Chronic Obstructive Pulmonary Disease. Counseling: I had a detailed discussion with the patient and/or guardian regarding the historical points, exam findings, and any diagnostic results supporting the discharge/admit diagnosis, lab results, radiology results, the need for outpatient follow up, to return to the emergency department if symptoms worsen or persist or if there are any questions or concerns that arise at home. Response to treatment: the patient's symptoms have markedly improved after treatment. 06/10 00:51 Order name: Basic Metabolic Panel; Complete Time: : rt 06/10 00:51 Order name: CBC with Diff; Complete Time: rt 06/10 00:51 Order name: LFT's; Complete Time: : rt 06/10 00:51 Order name: Magnesium; Complete Time: : rt 06/10 00:51 Order name: NT PRO-BNP; Complete Time: : rt 06/10 00:51 Order name: Troponin HS; Complete Time: : rt 06/10 00:51 Order name: XRAY Chest (1 view) rt 06/10 00:51 Order name: EKG; Complete Time: 00: rt 06/10 00:51 Order name: Cardiac monitoring; Complete Time: : rt 06/10 00:51 Order name: EKG - Nurse/Tech; Complete Time: : rt 06/10 00:51 Order name: IV Saline Lock; Complete Time: : rt 06/10 00:51 Order name: Labs collected and sent; Complete Time: : rt 06/10 00:51 Order name: O2 Per Protocol; Complete Time: : rt 06/10 00:51 Order name: O2 Sat Monitoring; Complete Time: : rt EC:02 Rate is 98 beats/min. Rhythm is irregularly irregular, A fib with No ectopy. QRS [place] rt is Normal. QRS interval is normal. QT interval is normal. No Q waves. No ST changes noted. Administered Medications: 01:26 Drug: DuoNeb Nebulize (3:1) (2.5 mg - 0.5 mg) 3 ml Nebulizer once Route: Nebulizer; cm10 01:26 Drug: predniSONE PO 40 mg PO once Route: PO; cm10 Disposition Summary: 06/11/23 02:00 Discharge Ordered Notes: Location: Home rt Problem: an acute exacerbation rt Symptoms: have improved rt Condition: Stable rt Diagnosis - COPD/ Chronic obstructive pulmonary disease, unspecified rt Followup: rt - With: Private Physician - When: 2 - 3 days - Reason: Discharge Instructions: - Discharge Summary Sheet rt - Chronic Obstructive Pulmonary Disease rt Forms: - Medication Reconciliation Form rt - Thank You Letter rt - Antibiotic Education rt - Prescription Opioid Use rt - Patient Portal Instructions rt - Leadership Thank You Letter rt Signatures: Dispatcher [employer] EDMS Rich Anand MD MD rt Emerita Cook RN RN cm10 Corrections: (The following items were deleted from the chart) 00:52 00:52 BASIC METABOLIC PANEL+C.LAB.BRZ ordered. EDMS EDMS 00:52 00:52 CBC+H.LAB.BRZ ordered. EDMS EDMS 00:52 00:52 HEPATIC FUNCTION+C.LAB.BRZ ordered. EDMS EDMS 00: 00:52 MAGNESIUM+C.LAB.BRZ ordered. EDMS EDMS 00:52 00:52 Troponin High Sensitivity+C.LAB.BRZ ordered. EDMS EDMS 01:14 00:52 PROBNP+C.LAB.BRZ ordered. EDMS EDMS
--- NOTE | 2023-06-11 02:01 | ER ---
Nurse's Notes [facility] Name: Reina Hartley Age: 67 yrs Sex: Female : 1955 Arrival Date: 06/11/2023 Time: 00:41 Bed IW9 Private MD: Diagnosis: COPD/ Chronic obstructive pulmonary disease, unspecified Presentation: 06/10 00:46 Chief complaint: Patient states: Chest pain and shortness of breath 1hr [employer]. cm10 Respirations even and unlabored at the time of triage. Pt able to speak in complete sentences. Coronavirus screen: Client denies travel out of the [place] in the last 14 days. At this time, the client does not indicate any symptoms associated with coronavirus-19. Ebola Screen: Patient denies travel to an Ebola-affected area in the 21 days before illness onset. No symptoms or risks identified at this time. Initial Sepsis Screen: Does the patient meet any 2 criteria? No. Patient's initial sepsis screen is negative. Does the patient have a suspected source of infection? No. Patient's initial sepsis screen is negative. Risk Assessment: Do you want to hurt yourself or someone else? Patient reports no desire to harm self or others. Onset of symptoms was June 11, 2023. 00:46 Method Of Arrival: EMS: [facility] 00:46 Acuity: ANDREA 3 cm10 Triage Assessment: 00:47 General: Appears in no apparent distress. comfortable, Behavior is calm, cooperative. cm10 Pain: Complains of pain in chest. Neuro: No deficits noted. Level of Consciousness is awake, alert, obeys commands, Oriented to person, place, time, situation. Cardiovascular: No deficits noted. Capillary refill < 3 seconds Patient's skin is warm and dry. Respiratory: Reports shortness of breath at rest on exertion Airway is patent Respiratory effort is even, labored, Respiratory pattern is regular, symmetrical, Onset: The symptoms/episode began/occurred just prior to arrival, the patient has mild shortness of breath. Musculoskeletal: No deficits noted. Range of motion: intact in all extremities. Historical: - Allergies: 00:47 all depression medications; cm10 00:47 Procardia; cm10 - PMHx: 00:47 Arthritis; Atrial fibrillation; diabetes mellitus; Hypertensive disorder; Myocardial cm10 infarction; - PSHx: 00:47 Appendectomy; breast augmentation; cardiac stent; Cholecystectomy; Gastric Bypass; cm10 hysterectomy; Left hip; - Immunization history:: Adult Immunizations up to date. - Social history:: Smoking status: Patient reports the use of cigarette tobacco products, unknown amount. - Family history:: not pertinent. Screenin:28 [facility] ED Fall Risk Assessment (Adult) History of falling in the last 3 months, cm10 including since admission No falls in past 3 months (0 pts) Confusion or Disorientation No (0 pts) Intoxicated or Sedated No (0 pts) Impaired Gait No (0 pts) Mobility Assist Device Used No (0 pt) Altered Elimination No (0 pt) Score/Fall Risk Level 0 - 2 = Low Risk Oriented to surroundings, Maintained a safe environment, Hourly rounding (assess needs \T\ fall precautionary measures) done. [facility] ED Fall Risk Assessment (Adult). Abuse screen: Denies threats or abuse. Denies injuries from another. Nutritional screening: No deficits noted. Tuberculosis screening: No symptoms or risk factors identified. Assessment: :28 Cardiovascular: Capillary refill < 3 seconds Patient's skin is warm and dry. Rhythm is cm10 atrial fibrillation. Respiratory: Airway is patent Respiratory effort is even, unlabored, Respiratory pattern is regular, symmetrical, not auscultated. Vital Signs: 00:46 Weight 61.69 kg; Height 5 ft. 2 in. ; cm10 00:50 BP 166 / 105; Pulse 103; Resp 24; Temp 97.6; Pulse Ox 100% on R/A; Pain 10/10; cm10 00:46 Body Mass Index 24.87 (61.69 kg, 157.48 cm) cm10 00:50 Pain Scale: Adult cm10 ED Course: 00:45 Patient arrived in ED. ty 00:45 Rich Anand MD is Attending Physician. rt 00:47 Triage completed. cm10 00:47 Arm band placed on Patient placed in an exam room, on a stretcher. cm10 01:11 XRAY Chest (1 view) In Process Unspecified. EDMS 01:14 Patient has correct armband on for positive identification. Bed in low position. Call cm10 light in reach. Side rails up X2. Provided Education on: ER process and procedures.. Client placed on continuous cardiac and pulse oximetry monitoring. NIBP monitoring applied. air sampling and monitoring on. Warm blanket given. 01:14 Basic Metabolic Panel Sent. cm10 01:14 CBC with Diff Sent. cm10 :14 LFT's Sent. cm10 :14 Magnesium Sent. cm10 :14 Troponin HS Sent. cm10 :14 Initial lab(s) drawn, by me, sent to lab. EKG done, by ED staff, reviewed by Rich Anand MD. Inserted saline lock: 20 gauge in right forearm, using aseptic technique. Blood collected. Patient maintains SpO2 saturation greater than 95% on room air. 01:16 Emerita Cook, RN is Primary Nurse. cm10 01:48 Patient requests food. Patient requests liquids. Patient requests pain medication. cm10 02:08 No provider procedures requiring assistance completed. IV discontinued, intact, rv bleeding controlled, No redness/swelling at site. Pressure dressing applied. Administered Medications: : Drug: DuoNeb Nebulize (3:1) (2.5 mg - 0.5 mg) 3 ml Nebulizer once Route: Nebulizer; cm10 :26 Drug: predniSONE PO 40 mg PO once Route: PO; cm10 Medication: 02:08 VIS not applicable for this client. rv Outcome: 02:00 Discharge ordered by . rt 02:08 Discharged to home ambulatory, rv 02:08 Condition: good 02:08 Discharge instructions given to patient, Instructed on discharge instructions, follow up and referral plans. Demonstrated understanding of instructions, follow-up care, 02:08 Patient left the ED. rv Signatures: Dispatcher [employer] EDMS Kiet Peñaloza RN RN rv [place], Ryan, MD MD rt Emerita Cook RN RN [place] Celestin Corrections: (The following items were deleted from the chart) : 01:14 PROBNP+C.LAB.BRZ drawn and sent. cm10 EDMS
[2023-06-11 02:41] VITALS: BP 166/105; TEMP 97.6; O2SAT 100
--- NOTE | 2023-06-11 09:38 | EKG ---
Test Date: 2023-06-11 Test Time: 01:02:09 Cleaning Attendant: JAYLENE MEASUREMENT RESULTS: Intervals: Rate: 98 MI: QRSD: 90 QT: 356 QTc: 454 [place]: P: MI: QRS: 71 T: 92 INTERPRETIVE STATEMENTS: Atrial fibrillation Abnormal ECG Compared to ECG 06/08/2023 16:48:06 ST (T wave) deviation no longer present Possible ischemia no longer present Electronically Signed On 06-11-23 09:37:58 CDT by David Irby
--- NOTE | 2023-06-12 14:49 | RAD REPORT ---
EXAM DESCRIPTION: RAD - Chest Single View - 06/11/2023 1:09 am CLINICAL HISTORY: COPD COMPARISON: CXR, 05-30-2023. FINDINGS: Cardiac silhouette is unchanged compared with the prior exam. There is atherosclerosis. De fibrillator pad projected over the left lower chest. There is no focal parenchymal or pleural disease . There is no acute osseous process visualized. IMPRESSION: No evidence of acute cardiopulmonary disease. Electronically signed by: Jesus Manuel Walker MD 06/11/2023 01:38 AM CDT Due to temporary technical issues with the PACS/Fluency reporting system, reports are being signed by the in house radiologists without review as a courtesy to insure prompt reporting. The interpreting radiologist is fully responsible for the content of the report
== END 2023-06-11 02:08 | disposition home or self-care (01) ==
LOC: ER 00:41
DX: J44.9 Chronic obstructive pulmonary disease, unspecified (principal); I10 Essential (primary) hypertension; I48.91 Unspecified atrial fibrillation; I25.2 Old myocardial infarction; Z95.818 Presence of other cardiac implants and grafts; Z72.0 Tobacco use; Z98.82 Breast implant status; Z88.8 Allergy status to other drugs, medicaments and biological substances
CPT/HCPCS: 93005; 85025; 80048; 36415; 83735; 80076; 84484; 83880; 71045; 94640; 99285; J7512; J7613; J7644

== ENCOUNTER 2023-06-11 06:44 | Emergency (ER) | payer OTHER ==
[2023-06-11] MEDS ORDERED: ALBUTEROL 2.5 MG/3 ML NEB SOL ONE (07:17)
[2023-06-11] MEDS ORDERED: IPRATROPIUM BROM 0.5MG/2.5ML ONE (07:18)
--- NOTE | 2023-06-11 08:12 | ER ---
Nurse's Notes [facility] Name: Reina Hartley Age: 67 yrs Sex: Female : 1955 Arrival Date: 06/11/2023 Time: 06:44 Bed 6 Private MD: Diagnosis: Chronic atrial fibrillation;Shortness of breath Presentation: 06/10 06:47 Chief complaint: EMS states: SUDDEN ONSET OF SOB. RUN OUT OF NEBULIZER TREATMENT AT rv HOME. Coronavirus screen: At this time, the client does not indicate any symptoms associated with coronavirus-19. Ebola Screen: No symptoms or risks identified at this time. Initial Sepsis Screen: Does the patient meet any 2 criteria? No. Patient's initial sepsis screen is negative. Does the patient have a suspected source of infection? No. Patient's initial sepsis screen is negative. Risk Assessment: Do you want to hurt yourself or someone else? Patient reports no desire to harm self or others. Onset of symptoms was June 11, 2023. 06:47 Method Of Arrival: EMS: [facility] 06:47 Acuity: ANDREA 2 rv Triage Assessment: 06:49 General: Appears comfortable, Behavior is calm, cooperative. Pain: Denies pain. Neuro: rv Level of Consciousness is awake, alert, obeys commands, Oriented to person, place, time, situation. Cardiovascular: Capillary refill < 3 seconds Patient's skin is warm and dry. Respiratory: Reports shortness of breath at rest Onset: The symptoms/episode began/occurred today, the patient has mild shortness of breath. GI: No signs and/or symptoms were reported involving the gastrointestinal system. : No signs and/or symptoms were reported regarding the genitourinary system. Derm: Skin is intact. Historical: - Allergies: 06:49 all depression medications; rv 06:49 Procardia; rv - PMHx: 06:49 Arthritis; Atrial fibrillation; diabetes mellitus; Hypertensive disorder; Myocardial rv infarction; - PSHx: 06:49 Appendectomy; breast augmentation; cardiac stent; Cholecystectomy; Gastric Bypass; rv hysterectomy; Left hip; - Immunization history:: Adult Immunizations up to date. - Social history:: Smoking status: Patient reports the use of cigarette tobacco products, smokes one-half pack cigarettes per day. Screenin:51 [facility] ED Fall Risk Assessment (Adult) History of falling in the last 3 months, rv including since admission No falls in past 3 months (0 pts) Score/Fall Risk Level 0 - 2 = Low Risk Oriented to surroundings, Maintained a safe environment, Educated pt \T\ family on fall prevention, incl call for assistance when getting out of bed, Assessed \T\ reinforced patient's understanding of fall precautions. Abuse screen: Denies threats or abuse. Denies injuries from another. Nutritional screening: No deficits noted. Tuberculosis screening: No symptoms or risk factors identified. Assessment: 06:51 Respiratory: Airway is patent Respiratory effort is even, unlabored, Breath sounds are rv clear bilaterally. 07:00 Reassessment: Patient appears in no apparent distress at this time. Patient and/or db family updated on plan of care and expected duration. Pain level reassessed. Patient is alert, oriented x 3, equal unlabored respirations, skin warm/dry/pink. Cardiovascular: Rhythm is irregular. 07:33 Reassessment: Patient appears in no apparent distress at this time. Patient and/or db family updated on plan of care and expected duration. Pain level reassessed. Patient is alert, oriented x 3, equal unlabored respirations, skin warm/dry/pink. General: Appears in no apparent distress. comfortable, Behavior is calm, cooperative. Neuro: Level of Consciousness is awake, alert, obeys commands, Oriented to person, place, time, situation. Respiratory: Reports shortness of breath Airway is patent Respiratory effort is even, unlabored, Respiratory pattern is regular, symmetrical. 07:53 Reassessment: Patient appears in no apparent distress at this time. PATIENTS ROOM db SMELLS OF SMOKE INSTRUCTED PATIENT TO NOT SMOKE IN ROOM. PT DENIES SMOKING IN ROOM. Vital Signs: 06:47 BP 135 / 86; Pulse 111; Resp 20; Temp 98; Pulse Ox 100% ; rv 07:00 BP 133 / 93; Pulse 106; Resp 18; Pulse Ox 99% on R/A; db 08:00 BP 138 / 94; Pulse 102; Resp 18; Temp 98(O); Pulse Ox 100% ; db ED Course: 06:45 Patient arrived in ED. eb 06:46 Rich Anand MD is Attending Physician. rt 06:49 Triage completed. rv 06:49 Arm band placed on right wrist. rv 06:51 Patient has correct armband on for positive identification. Client placed on continuous rv cardiac and pulse oximetry monitoring. NIBP monitoring applied. property assessment monitor on. 06:51 No provider procedures requiring assistance completed. rv 06:58 Door closed. Noise minimized. Warm blanket given. PO fluids given. pf1 07:00 Provided Education on: LABS, MEDICATIONS. db 07:01 Anitra Shaw, RN is Primary Nurse. db 07:09 Attending Physician role handed off by Rich Anand MD ms3 07:09 Feroz Rush DO is Attending Physician. ms3 07:15 Initial lab(s) drawn, by wv, sent to lab. Inserted saline lock: 22 gauge in right db forearm, using aseptic technique. Blood collected. 07:30 EKG done, by ED staff, reviewed by Feroz Rush DO. db 08:24 IV discontinued, intact, bleeding controlled, No redness/swelling at site. Pressure em1 dressing applied. 08:36 IV discontinued, intact. db Administered Medications: 07:20 Drug: DuoNeb Nebulize (3:1) (2.5 mg - 0.5 mg) 3 ml Nebulizer once Route: Nebulizer; db 08:32 Follow up: Response: No adverse reaction db Medication: 06:51 VIS not applicable for this client. rv Outcome: 08:12 Discharge ordered by . ms3 08:34 Discharged to home ambulatory, db 08:34 Condition: stable 08:34 Discharge instructions given to patient, Instructed on discharge instructions, follow up and referral plans. 08:36 Patient left the ED. db Signatures: Pablo Cook em1 Susi García Ronaldo, RN RN rv Feroz Rush DO DO ms3 Anitra Shaw, WALI RN db iRch Anand MD MD rt Stephanie Castellon RN RN pf1
--- NOTE | 2023-06-11 08:12 | EDPHYS ---
Physician Documentation [facility] Name: Reina Hartley Age: 67 yrs Sex: Female : 1955 Arrival Date: 06/11/2023 Time: 06:44 Bed 6 Private MD: ED Physician Feroz Rush HPI: 06/10 06:48 This 67 yrs old Female presents to ER via Unassigned with complaints of Shortness Of rt Breath. 06:48 Patient was just discharged about 4 hours ago. States that she has recurrence of her rt shortness of breath due to COPD. States that she is out of her nebulizer albuterol. No new complaints. Does report chest pain now. Symptoms are mild in severity, no other aggravating alleviating factors.. Historical: - Allergies: 06:49 all depression medications; rv 06:49 Procardia; rv - PMHx: 06:49 Arthritis; Atrial fibrillation; diabetes mellitus; Hypertensive disorder; Myocardial rv infarction; - PSHx: 06:49 Appendectomy; breast augmentation; cardiac stent; Cholecystectomy; Gastric Bypass; rv hysterectomy; Left hip; - Immunization history:: Adult Immunizations up to date. - Social history:: Smoking status: Patient reports the use of cigarette tobacco products, smokes one-half pack cigarettes per day. ROS: 06:48 Abdomen/GI: Negative for abdominal pain, nausea, vomiting, diarrhea, and constipation, rt MS/Extremity: Negative for injury and deformity, 06:48 Cardiovascular: Positive for chest pain, Negative for edema, 06:48 Respiratory: Positive for shortness of breath, wheezing, Exam: 06:48 Constitutional: This is a well developed, well nourished patient who is awake, alert, rt and in no acute distress. Head/Face: Normocephalic, atraumatic. Chest/axilla: Normal chest wall appearance and motion. Nontender with no deformity. No lesions are appreciated. Cardiovascular: Regular rate and rhythm with a normal S1 and S2. No gallops, murmurs, or rubs. Normal PMI, no JVD. No pulse deficits. Respiratory: Lungs have equal breath sounds bilaterally, clear to auscultation and percussion. No rales, rhonchi or wheezes noted. No increased work of breathing, no retractions or nasal flaring. Abdomen/GI: Soft, non-tender, with normal bowel sounds. No distension or tympany. No guarding or rebound. No evidence of tenderness throughout. Skin: Warm, dry with normal turgor. Normal color with no rashes, no lesions, and no evidence of cellulitis. MS/ Extremity: Pulses equal, no cyanosis. Neurovascular intact. Full, normal range of motion. Neuro: Awake and alert, GCS 15, oriented to person, place, time, and situation. Cranial nerves II-XII grossly intact. Motor strength 5/5 in all extremities. Sensory grossly intact. Cerebellar exam normal. Normal gait. 08:15 ECG was reviewed by the Attending Physician. ms3 Vital Signs: 06:47 BP 135 / 86; Pulse 111; Resp 20; Temp 98; Pulse Ox 100% ; rv 07:00 BP 133 / 93; Pulse 106; Resp 18; Pulse Ox 99% on R/A; db 08:00 BP 138 / 94; Pulse 102; Resp 18; Temp 98(O); Pulse Ox 100% ; db MDM: 06:46 Patient medically screened. rt 07:00 Transition of care: Care assumed from Rich Anand MD. ms3 08:12 Differential diagnosis: Chronic Obstructive Pulmonary Disease reactive airway disease. ms3 Data reviewed: vital signs, nurses notes, lab test result(s), EKG, and as a result, I will discharge patient. I considered the following discharge prescriptions or medication management in the emergency department Medications were administered in the Emergency Department. See MAR. Independent interpretation of the following test(s) in the Emergency Department EKG: See my EKG interpretation above. Care significantly affected by the following chronic conditions: Diabetes, Hypertension, Chronic Obstructive Pulmonary Disease. Counseling: I had a detailed discussion with the patient and/or guardian regarding the historical points, exam findings, and any diagnostic results supporting the discharge/admit diagnosis, lab results, the need for outpatient follow up, to return to the emergency department if symptoms worsen or persist or if there are any questions or concerns that arise at home. Special discussion: Based on the patient's history, exam, and Dx evaluation, there is no indication for emergent intervention or inpatient Tx. It is understood by the patient/guardian that if the Sx's persist or worsen they need to return immediately for re-evaluation. ED course: Discussed with troponin previously 16 out of 10. Patient to follow-up with [facility] as instructed. All questions were answered. Return precautions discussed include worsening symptoms, or any other concerns. On reevaluation patient is alert and oriented x 4, no apparent distress, nontoxic-appearing, speaking full sentences, ambulatory in the emergency department. 06/10 06:48 Order name: Troponin High Sensitivity; Complete Time: 07:53 rt 06/10 06:48 Order name: EKG; Complete Time: 06:48 rt 06/10 06:48 Order name: EKG - Nurse/Tech; Complete Time: 08:32 rt EC:15 Rate is 116 beats/min. Rhythm is irregularly irregular. QRS [place] is Normal. QRS ms3 interval is normal. Clinical impression: Atrial Fibrillation. Interpreted by me. Reviewed by me. Administered Medications: 07:20 Drug: DuoNeb Nebulize (3:1) (2.5 mg - 0.5 mg) 3 ml Nebulizer once Route: Nebulizer; db 08:32 Follow up: Response: No adverse reaction db Disposition Summary: 06/11/23 08:12 Discharge Ordered Notes: Location: Home ms3 Condition: Stable ms3 Diagnosis - Chronic atrial fibrillation ms3 - Shortness of breath ms3 Followup: ms3 - With: Private Physician - When: 2 - 3 days - Reason: Recheck today's complaints Discharge Instructions: - Discharge Summary Sheet ms3 - Atrial Fibrillation ms3 - Shortness of Breath, Adult ms3 Forms: - Medication Reconciliation Form ms3 - Thank You Letter ms3 - Antibiotic Education ms3 - Prescription Opioid Use ms3 - Patient Portal Instructions ms3 - Leadership Thank You Letter ms3 Prescriptions: - albuterol sulfate 90 mcg/actuation Inhalation HFA Aerosol Inhaler - inhale 1 inhalation INHALATION route every 4 to 6 hours as needed for ms3 bronchospasm; administer via ventilator; 1 unit; Refills: 0, Product Selection Permitted Signatures: Dispatcher [employer] Kiet Sheffield RN RN rv Sims, Marcus, DO DO ms3 Anitra Shaw RN RN db [place], Ryan, MD MD rt
[2023-06-11 08:50] VITALS: BP 138/94; TEMP 98; O2SAT 100
--- NOTE | 2023-06-13 13:45 | EKG ---
Test Date: 2023-06-11 Test Time: 07:06:00 Verification Lead: JEANNE MEASUREMENT RESULTS: Intervals: Rate: 116 MD: QRSD: 88 QT: 336 QTc: 467 [place]: P: MD: QRS: 62 T: 64 INTERPRETIVE STATEMENTS: Atrial fibrillation Nonspecific T wave abnormality, probably digitalis effect Abnormal ECG Compared to ECG 06/11/2023 01:02:09 T-wave abnormality now present Electronically Signed On 06-13-23 13:38:00 CDT by David Irby
== END 2023-06-11 08:36 | disposition home or self-care (01) ==
LOC: ER 06:44
DX: I48.20 Chronic atrial fibrillation, unspecified (principal); J44.9 Chronic obstructive pulmonary disease, unspecified; I10 Essential (primary) hypertension; I25.2 Old myocardial infarction; Z95.818 Presence of other cardiac implants and grafts; Z72.0 Tobacco use; Z88.8 Allergy status to other drugs, medicaments and biological substances; Z98.82 Breast implant status
CPT/HCPCS: 93005; 36415; 84484; 94640; 99285; J7613; J7644

== ENCOUNTER 2023-06-12 10:45 | Emergency (ER) | payer OTHER ==
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
--- NOTE | 2023-06-12 11:09 | ER ---
Nurse's Notes [facility] Name: Reina Hartley Age: 67 yrs Sex: Female : 1955 Arrival Date: 06/12/2023 Time: 10:45 Bed DX3 Private MD: Diagnosis: Chest pain, unspecified Presentation: 06/11 10:58 Chief complaint: Patient states: CP continues since yesterdays visit. Coronavirus ll1 screen: Client denies travel out of the [place] in the last 14 days. At this time, the client does not indicate any symptoms associated with coronavirus-19. Ebola Screen: Patient denies travel to an Ebola-affected area in the 21 days before illness onset. 10:58 Method Of Arrival: Ambulatory ll1 11:08 Initial Sepsis Screen: Does the patient meet any 2 criteria? No. Patient's initial ll1 sepsis screen is negative. Does the patient have a suspected source of infection? No. Patient's initial sepsis screen is negative. Risk Assessment: Do you want to hurt yourself or someone else? Patient reports no desire to harm self or others. Onset of symptoms was June 08, 2023. 11:08 Acuity: ANDREA 4 ll1 Triage Assessment: 11:02 General: Appears in no apparent distress. Behavior is calm, cooperative, appropriate ll1 for age. Pain: Complains of pain in chest Quality of pain is described as aching. Cardiovascular: Reports chest pain. Historical: - Allergies: 10:58 all depression medications; ll1 10:58 Procardia; ll1 - PMHx: 10:58 Arthritis; Atrial fibrillation; diabetes mellitus; Hypertensive disorder; Myocardial ll1 infarction; - PSHx: 10:58 Appendectomy; breast augmentation; cardiac stent; Cholecystectomy; Gastric Bypass; ll1 hysterectomy; Left hip; - Immunization history:: Adult Immunizations up to date. - Social history:: Smoking status: Patient reports the use of cigarette tobacco products, smokes one-half pack cigarettes per day. Screenin:07 [facility] ED Fall Risk Assessment (Adult) History of falling in the last 3 months, ll1 including since admission No falls in past 3 months (0 pts) Confusion or Disorientation No (0 pts) Intoxicated or Sedated No (0 pts) Impaired Gait No (0 pts) Mobility Assist Device Used No (0 pt) Altered Elimination No (0 pt) Score/Fall Risk Level 0 - 2 = Low Risk Oriented to surroundings, Hourly rounding (assess needs \T\ fall precautionary measures) done. Abuse screen: Denies threats or abuse. Nutritional screening: No deficits noted. Tuberculosis screening: No symptoms or risk factors identified. Assessment: 11:07 Reassessment: No changes from previously documented assessment. Patient and/or family ll1 updated on plan of care and expected duration. Pain level reassessed. Vital Signs: 11:01 BP 154 / 98; Pulse 95; Resp 16; Temp 98; Pulse Ox 100% on R/A; Pain 2/10; ll1 11:01 Pain Scale: Adult ll1 ED Course: 10:47 Patient arrived in ED. 10:47 Yumi Holder MD is Attending Physician. sp3 11:02 Arm band placed on Patient placed in an exam room, on a stretcher. ll1 11:08 Triage completed. ll1 11:08 No provider procedures requiring assistance completed. Patient did not have IV access ll1 during this emergency room visit. 11:09 Patient has correct armband on for positive identification. Bed in low position. ll1 Provided Education on: n/a. Administered Medications: No medications were administered Medication: 11:09 VIS not applicable for this client. 1 Outcome: 10:56 Discharge ordered by . sp3 11:08 Discharged to home ambulatory, ll1 11:08 Condition: stable 11:08 Discharge instructions given to patient, Instructed on discharge instructions, follow up and referral plans. Demonstrated understanding of instructions, follow-up care, 11:09 Patient left the ED. 1 Signatures: Susi García Lynsay RN RN ll1 Yumi Holder MD MD sp3
[2023-06-12 12:14] VITALS: BP 154/98; TEMP 98; O2SAT 100
--- NOTE | 2023-06-13 13:45 | EKG ---
Test Date: 2023-06-11 Test Time: 07:16:15 Examiner Of Currency: JEANNE MEASUREMENT RESULTS: Intervals: Rate: 0 [place]: QRSD: 0 QT: 0 QTc: 0 [place]: P: [place]: QRS: 0 T: 0 INTERPRETIVE STATEMENTS: No QRS complexes found, no ECG analysis possible Compared to ECG 06/11/2023 07:06:00 Atrial fibrillation no longer present T-wave abnormality no longer present Electronically Signed On 06-13-23 13:37:59 CDT by David Irby
== END 2023-06-12 11:09 | disposition home or self-care (01) ==
LOC: ER 10:45
DX: R07.9 Chest pain, unspecified (principal); I10 Essential (primary) hypertension; I48.91 Unspecified atrial fibrillation; F17.210 Nicotine dependence, cigarettes, uncomplicated; Z95.818 Presence of other cardiac implants and grafts; Z98.82 Breast implant status; Z88.8 Allergy status to other drugs, medicaments and biological substances
CPT/HCPCS: 93005; 99282

== ENCOUNTER 2023-06-15 04:05 | Emergency (ER) | payer OTHER ==
--- NOTE | 2023-06-15 04:29 | EDPHYS ---
Physician Documentation [facility] Name: Reina Hartley Age: 67 yrs Sex: Female : 1955 Arrival Date: 06/15/2023 Time: 04:05 Bed Treatment Private MD: ED Physician Feng Lerner HPI: 06/14 04:22 This 67 yrs old Female presents to ER via EMS with complaints of Chest Pain. sp4 04:29 67-year-old female with history of atrial fibrillation presents with complaint of chest sp4 pain with EMS.. . 04:30 Patient apparently visited the ER 17 times last month for chest pain and other multiple sp4 complaints. Patient apparently is homeless. . 04:31 Past workup for chest pain was of 06/11/2023. sp4 Historical: - Allergies: 04:23 all depression medications; pf1 04:23 Procardia; pf1 - PMHx: 04:23 Arthritis; Atrial fibrillation; diabetes mellitus; Hypertensive disorder; Myocardial pf1 infarction; - PSHx: 04:23 Appendectomy; Appendectomy; breast augmentation; cardiac stent; Cholecystectomy; pf1 Gastric Bypass; hysterectomy; Left hip; - Immunization history:: Adult Immunizations up to date, 4 doses of Moderna. - Infectious Disease History:: Denies. - Social history:: Smoking status: Patient reports the use of cigarette tobacco products, smokes one-half pack cigarettes per day, Patient/guardian denies using alcohol, street drugs. - Family history:: not pertinent. ROS: 04:30 Constitutional: Negative for fever, chills, and weight loss, positive for reported sp4 chest pain 04:30 All other systems are negative, Exam: 04:31 Constitutional: This is a well developed, well nourished patient who is awake, alert, sp4 and in no acute distress. Head/Face: Normocephalic, atraumatic. Eyes: Pupils equal round and reactive to light, extra-ocular motions intact. Lids and lashes normal. Conjunctiva and sclera are not injected. Cornea within normal limits. Periorbital areas with no swelling, redness, or edema. ENT: Nares patent. No nasal discharge, no septal abnormalities noted. Tympanic membranes are normal and external auditory canals are clear. Oropharynx with no redness, swelling, or masses, exudates, or evidence of obstruction, uvula midline. Mucous membranes moist. Neck: Trachea midline, no thyromegaly or masses palpated, and no cervical lymphadenopathy. Supple, full range of motion without nuchal rigidity, or vertebral point tenderness. Chest/axilla: Normal chest wall appearance and motion. Nontender with no deformity. No lesions are appreciated. Cardiovascular: Regular rate and rhythm with a normal S1 and S2. No gallops, murmurs, or rubs. Normal PMI, no JVD. No pulse deficits. Respiratory: Lungs have equal breath sounds bilaterally, clear to auscultation and percussion. No rales, rhonchi or wheezes noted. No increased work of breathing, no retractions or nasal flaring. Abdomen/GI: Soft, with normal bowel sounds. No distension or tympany. No guarding or rebound. No evidence of tenderness throughout. Back: No spinal tenderness. No costovertebral tenderness. Skin: Warm, dry with normal turgor. Normal color with no rashes, no lesions, and no evidence of cellulitis. MS/ Extremity: Pulses equal, no cyanosis. Neurovascular intact. Full, normal range of motion. Neuro: Awake and alert, GCS 15, oriented to person, place, time, and situation. Cranial nerves II-XII grossly intact. Motor strength 5/5 in all extremities. Sensory grossly intact. Psych: Awake, alert, with orientation to person, place and time. Behavior, mood, and affect are within normal limits 04:31 ECG was reviewed by the Attending Physician. Atrial fibrillation at a rate of 100, EKG 0410 Vital Signs: 04:15 BP 156 / 104; Pulse 97; Resp 16; Temp 98.4; Pulse Ox 100% on R/A; Weight 58.97 kg; pf1 Height 5 ft. 2 in. ; Pain 10/10; 04:30 BP 154 / 99; Pulse 98; Resp 15; Temp 97.9; Pulse Ox 100% ; Pain 0/10; pf1 04:15 Body Mass Index 23.78 (58.97 kg, 157.48 cm) pf1 04:15 Pain Scale: Adult pf1 04:30 Pain Scale: Adult pf1 MDM: 04:28 Patient medically screened. sp4 04:31 Differential diagnosis: abnormal EKG, acute pericarditis, anxiety, chest wall pain, sp4 cholecystitis. HEART Score: History: Slightly Suspicious (0), ECG: Non specific repolarization disturbance / LBTB / PM (1), Age: > or = 65 years (2), Risk Factors: 1 or 2 risk factors (1), Troponin: Total Score = 4. Data reviewed: vital signs, nurses notes, EMS record, old medical records, EKG. ED course: Based on multiple prior visits and prior workups patient is deemed stable for discharge from the emergency room. Patient is eating and states she is feeling much better. . EC:31 Rate is 100 beats/min. Rhythm is irregularly irregular, A fib. QRS [place] is Normal. QT sp4 interval is normal. No Q waves. T waves are Normal. No ST changes noted. Clinical impression: No evidence of ischemia. Interpreted by me. Reviewed by me. Administered Medications: No medications were administered Disposition Summary: 06/15/23 04:28 Discharge Ordered Notes: Location: Home sp4 Problem: new sp4 Symptoms: have improved sp4 Condition: Stable sp4 Diagnosis - Chest pain, unspecified sp4 Followup: sp4 - With: Private Physician - When: 7 - 10 days - Reason: Recheck today's complaints Discharge Instructions: - Discharge Summary Sheet sp4 - Nonspecific Chest Pain, Adult, [id number] sp4 Signatures: Stephanie Castellon RN RN pf1 Feng Lerner MD MD sp4
--- NOTE | 2023-06-15 04:29 | ER ---
Nurse's Notes [facility] Name: Reina Hartley Age: 67 yrs Sex: Female : 1955 Arrival Date: 06/15/2023 Time: 04:05 Bed Treatment Private MD: Diagnosis: Chest pain, unspecified Presentation: 06/14 04:15 Method Of Arrival: EMS: [facility] pf1 04:15 Chief complaint: Patient states: chest pain of 10 that radiates to left arm,onset 1.5 pf1 hours ago. 04:15 Initial Sepsis Screen: Does the patient meet any 2 criteria? HR > 90 bpm. No. Patient's pf1 initial sepsis screen is negative. Does the patient have a suspected source of infection? No. Patient's initial sepsis screen is negative. Risk Assessment: Do you want to hurt yourself or someone else? Patient reports no desire to harm self or others. Onset of symptoms was June 15, 2023 at 03:00. 04:15 Acuity: ANDREA 2 pf1 04:19 Coronavirus screen: Client denies travel out of the [place] in the last 14 days. At this pf1 time, the client does not indicate any symptoms associated with coronavirus-19. Ebola Screen: Patient negative for fever greater than or equal to 101.5 degrees Fahrenheit, and additional compatible Ebola Virus Disease symptoms. Triage Assessment: 04:20 General: Appears in no apparent distress. comfortable, well developed, Behavior is pf1 calm, cooperative, appropriate for age, quiet. 04:20 Pain: Complains of pain in chest and left arm Pain currently is 10 out of 10 on a pain pf1 scale. Cardiovascular: Reports chest pain, Capillary refill < 3 seconds Patient's skin is warm and dry. Historical: - Allergies: 04:23 all depression medications; pf1 04:23 Procardia; pf1 - PMHx: 04:23 Arthritis; Atrial fibrillation; diabetes mellitus; Hypertensive disorder; Myocardial pf1 infarction; - PSHx: 04:23 Appendectomy; Appendectomy; breast augmentation; cardiac stent; Cholecystectomy; pf1 Gastric Bypass; hysterectomy; Left hip; - Immunization history:: Adult Immunizations up to date, 4 doses of Moderna. - Infectious Disease History:: Denies. - Social history:: Smoking status: Patient reports the use of cigarette tobacco products, smokes one-half pack cigarettes per day, Patient/guardian denies using alcohol, street drugs. - Family history:: not pertinent. Screenin:15 [facility] ED Fall Risk Assessment (Adult) History of falling in the last 3 months, pf1 including since admission No falls in past 3 months (0 pts) Confusion or Disorientation No (0 pts) Intoxicated or Sedated No (0 pts) Impaired Gait No (0 pts) Mobility Assist Device Used No (0 pt) Altered Elimination No (0 pt) Score/Fall Risk Level 0 - 2 = Low Risk Oriented to surroundings, Maintained a safe environment, Educated pt \T\ family on fall prevention, incl call for assistance when getting out of bed, Assessed \T\ reinforced patient's understanding of fall precautions, Provided non-skid footwear, Hourly rounding (assess needs \T\ fall precautionary measures) done, Used ambulatory aids as needed (educated on \T\ assisted with), Used gait belt as appropriate. Abuse screen: Denies threats or abuse. Nutritional screening: No deficits noted. Tuberculosis screening: No symptoms or risk factors identified. Assessment: 04:15 Pain: Pain radiates to left arm. pf1 04:15 Pain: Pain began 1.5 hour ago. pf1 04:20 General: Appears in no apparent distress. comfortable, well developed, Behavior is pf1 calm, cooperative, appropriate for age, quiet. 04:20 Neuro: No deficits noted. Level of Consciousness is awake, alert, obeys commands, pf1 Oriented to person, place, time, situation. Cardiovascular: Reports chest pain, Capillary refill < 3 seconds Patient's skin is warm and dry. Respiratory: No deficits noted. Airway is patent Respiratory effort is even, unlabored, Respiratory pattern is regular, symmetrical, Breath sounds are clear bilaterally. GI: No deficits noted. No signs and/or symptoms were reported involving the gastrointestinal system. : No deficits noted. No signs and/or symptoms were reported regarding the genitourinary system. EENT: No deficits noted. No signs and/or symptoms were reported regarding the EENT system. Derm: No deficits noted. No signs and/or symptoms reported regarding the dermatologic system. Musculoskeletal: No deficits noted. No signs and/or symptoms reported regarding the musculoskeletal system. Vital Signs: 04:15 BP 156 / 104; Pulse 97; Resp 16; Temp 98.4; Pulse Ox 100% on R/A; Weight 58.97 kg; pf1 Height 5 ft. 2 in. ; Pain 10/10; 04:30 BP 154 / 99; Pulse 98; Resp 15; Temp 97.9; Pulse Ox 100% ; Pain 0/10; pf1 04:15 Body Mass Index 23.78 (58.97 kg, 157.48 cm) pf1 04:15 Pain Scale: Adult pf1 04:30 Pain Scale: Adult pf1 ED Course: 04:15 Patient arrived in ED. pf1 04:15 Triage completed. pf1 04:15 Arm band placed on right wrist. pf1 04:15 Patient has correct armband on for positive identification. Placed in gown. Bed in low pf1 position. Call light in reach. Side rails up X 1. 04:15 Client placed on continuous cardiac and pulse oximetry monitoring. NIBP monitoring pf1 applied. lunchroom monitor on. 04:15 Door closed. Noise minimized. Warm blanket given. pf1 04:15 Patient maintains SpO2 saturation greater than 95% on room air. pf1 04:20 EKG done, by ED staff, reviewed by Feng Lerner MD. pf1 04:22 Feng Lerner MD is Attending Physician. sp4 04:48 Provided Education on: follow up. pf1 04:48 No provider procedures requiring assistance completed. Patient did not have IV access pf1 during this emergency room visit. Administered Medications: No medications were administered Medication: 04:48 VIS not applicable for this client. pf1 Outcome: 04:28 Discharge ordered by . sp4 04:47 Discharged to home ambulatory, pf1 04:47 Condition: stable 04:47 Discharge instructions given to patient, Instructed on discharge instructions, follow up and referral plans. Demonstrated understanding of instructions, follow-up care, 04:50 Patient left the ED. pf1 Signatures: Stephanei Castellon RN RN pf1 Feng Lerner MD MD sp4 Corrections: (The following items were deleted from the chart) 04:22 04:19 Chief complaint: Patient states: chest pain of 10 that radiates to left arm,onset pf1 1.5 hours ago. pf1 04:22 04:19 Method Of Arrival: EMS: [facility] pf1 pf1 04:49 04:22 Triage completed. pf1 pf1 08:05 04:30 BP 154 / 99; Pulse 98bpm; Resp 15bpm; Pulse Ox 100%; pf1 pf1
[2023-06-15 05:24] VITALS: BP 156/104; TEMP 98.4; O2SAT 100
== END 2023-06-15 04:50 | disposition home or self-care (01) ==
LOC: ER 04:05
DX: R07.9 Chest pain, unspecified (principal); I10 Essential (primary) hypertension; I48.91 Unspecified atrial fibrillation; I25.2 Old myocardial infarction; Z59.00 Homelessness unspecified; Z98.82 Breast implant status; Z95.818 Presence of other cardiac implants and grafts; Z88.8 Allergy status to other drugs, medicaments and biological substances

== ENCOUNTER 2023-06-16 06:58 | Emergency (ER) | payer OTHER ==
--- NOTE | 2023-06-16 07:34 | RAD REPORT ---
EXAM DESCRIPTION: [facility] Pa And Lat (2 Views)06/16/2023 7:16 am CLINICAL HISTORY: CHEST PAIN COMPARISON: Chest Single View dated 06/11/2023; Chest Single View dated 06/08/2023; Chest Pa And Lat ( 2 Views) dated 06/08/2023; Chest Single View dated 06/03/2023 TECHNIQUE: PA and lateral views of the chest. FINDINGS: The lungs are clear. No pneumothorax or effusion. The cardiomediastinal contours are unre markable. IMPRESSION: No acute cardiopulmonary process.
--- NOTE | 2023-06-16 08:55 | EDPHYS ---
Physician Documentation [facility] Name: Reina Hartley Age: 67 yrs Sex: Female : 1955 Arrival Date: 06/16/2023 Time: 06:58 Bed 5 Private MD: ED Physician Bill Edwards HPI: 06/15 07:08 This 67 yrs old Female presents to ER via Unassigned with complaints of chest pain. rn 07:08 The patient or guardian reports chest pain that is located primarily in the chest rn diffusely. Onset: at an unknown time. The pain does not radiate. Associated signs and symptoms: Pertinent positives: cough, shortness of breath, Pertinent negatives: abdominal pain, diaphoresis, syncope, vomiting. The chest pain is described as a heaviness. Duration: The patient or guardian reports multiple episodes, that are intermittent. Modifying factors: The symptoms are alleviated by nothing. the symptoms are aggravated by cough. Severity of pain: At its worst the pain was mild in the emergency department the pain is unchanged. The patient has experienced similar episodes in the past. Patient reports chest pain, worse over the last few hours, was seen at [facility] emergency room overnight, discharged, call 911 upon discharge and told them to bring her here. Patient with numerous visits recently to both hospitals, no acute findings and workup. Given Solu-Medrol and nebulizer treatment by EMS. Patient denies shortness of breath at this time. Still reports chest pain. Denies history of PE. No trauma. Does not feel sick. Denies fever. No abdominal pain.. Historical: - Allergies: 07:00 all depression medications; aa5 07:00 Procardia; aa5 - PMHx: 07:00 Arthritis; Atrial fibrillation; diabetes mellitus; Hypertensive disorder; Myocardial aa5 infarction; COPD (Unknown); - PSHx: 07:00 Appendectomy; breast augmentation; cardiac stent; Cholecystectomy; Gastric Bypass; aa5 hysterectomy; Left hip; - Immunization history:: Adult Immunizations unknown. - Infectious Disease History:: Denies. - Family history:: not pertinent. - Social history:: Smoking status: Patient reports the use of cigarette tobacco products. - Hospitalizations: : No recent hospitalization is reported. ROS: 07:08 Constitutional: Negative for fever, chills, and weight loss, Eyes: Negative for injury, rn pain, redness, and discharge, Neck: Negative for injury, pain, and swelling, Cardiovascular: Positive for chest pain Respiratory: Positive for cough, negative for shortness of breath Abdomen/GI: Negative for abdominal pain, nausea, vomiting, diarrhea, and constipation, MS/Extremity: Negative for injury and deformity, Skin: Negative for injury, rash, and discoloration, Neuro: Negative for headache, weakness, numbness, tingling, and seizure, Exam: 07:08 Constitutional: Disheveled patient, no acute distress Head/Face: Normocephalic, rn atraumatic. ENT: No stridor Cardiovascular: Irregularly irregular rhythm, regular rate Respiratory: Speaking full sentences, unlabored. No increased work of breathing, no retractions or nasal flaring. Abdomen/GI: Soft, non-tender MS/ Extremity: Pulses equal, no cyanosis. Neuro: Awake and alert, GCS 15 07:32 ECG was reviewed by the Attending Physician. rn Vital Signs: 07:00 BP 124 / 90; Pulse 96; Resp 18 S; Temp 98(TE); Pulse Ox 99% on R/A; aa5 08:45 BP 122 / 72; Pulse 84; Resp 15; Temp 97.7(TE); Pulse Ox 99% on R/A; hb MDM: 07:02 Patient medically screened. rn 08:52 Differential diagnosis: anxiety, coronary artery disease pleurisy, pneumothorax. Data rn reviewed: vital signs, nurses notes, lab test result(s), EKG, radiologic studies, plain films, and as a result, I will discharge patient. Counseling: I had a detailed discussion with the patient and/or guardian regarding the historical points, exam findings, and any diagnostic results supporting the discharge/admit diagnosis, lab results, radiology results, the need for outpatient follow up, to return to the emergency department if symptoms worsen or persist or if there are any questions or concerns that arise at home. Special discussion: Based on the patient's history, exam, and Dx evaluation, there is no indication for emergent intervention or inpatient Tx. It is understood by the patient/guardian that if the Sx's persist or worsen they need to return immediately for re-evaluation. I discussed with the patient/guardian in detail that at this point there is no indication for admission to the hospital. It is understood, however, that if the symptoms persist or worsen the patient needs to return immediately for re-evaluation. ED course: Chest x-ray negative for acute findings. EKG without ischemia or acute changes. Shows rate controlled A-fib. Troponin negative. Will DC home with return precautions.. 06/15 07:07 Order name: Troponin High Sensitivity; Complete Time: 08:51 rn 06/15 07:07 Order name: XRAY Chest Pa And Lat (2 Views); Complete Time: 07:36 rn 06/15 07:07 Order name: EKG - Nurse/Tech; Complete Time: 07:44 rn EC:32 Rate is 96 beats/min. Rhythm is irregularly irregular. Right axis deviation noted. QRS rn is positive in lead aVF and negative in lead I. QRS interval is normal. No Q waves. No ST changes noted. Clinical impression: Atrial Fibrillation. Interpreted by me. Reviewed by me. Administered Medications: No medications were administered Disposition Summary: 06/16/23 08:55 Discharge Ordered Notes: Location: Home rn Problem: new rn Symptoms: have improved rn Condition: Stable rn Diagnosis - Chest pain, unspecified rn Followup: rn - With: Private Physician - When: As needed - Reason: Recheck today's complaints, Re-evaluation by your physician Discharge Instructions: - Discharge Summary Sheet rn - Nonspecific Chest Pain, Adult rn - Chronic Obstructive Pulmonary Disease rn Forms: - Medication Reconciliation Form rn - Thank You Letter rn - Antibiotic assembler corncob pipes - Prescription Opioid Use rn - Patient Portal Instructions rn - Leadership Thank You Letter rn Signatures: Dispatcher [employer] EDBill Chacon MD MD rn Calderon, Audri, RN RN aa5 Corrections: (The following items were deleted from the chart) 07:08 07:07 Chest Pa And Lat (2 Views)+RAD.RAD.BRZ ordered. EDMS EDMS 07:08 07:08 Troponin High Sensitivity+C.LAB.BRZ ordered. EDMS EDMS 07:14 07:11 Chest Pa And Lat (2 Views)+RAD.RAD.BRZ ordered. EDMS EDMS
--- NOTE | 2023-06-16 08:55 | ER ---
Nurse's Notes [facility] Name: Reina Hartley Age: 67 yrs Sex: Female : 1955 Arrival Date: 06/16/2023 Time: 06:58 Bed 5 Private MD: Diagnosis: Chest pain, unspecified Presentation: 06/15 07:00 Chief complaint: EMS states: SOB, was just discharged from [facility] ER in [place], [place] this aa5 morning. 07:00 Coronavirus screen: shortness of breath. Ebola Screen: Patient denies travel to an aa5 Ebola-affected area in the 21 days before illness onset. Initial Sepsis Screen: Does the patient meet any 2 criteria? HR > 90 bpm. Does the patient have a suspected source of infection? No. Patient's initial sepsis screen is negative. Risk Assessment: Do you want to hurt yourself or someone else? Patient reports no desire to harm self or others. Onset of symptoms is unknown. 07:00 Method Of Arrival: EMS: [facility] aa5 07:00 Acuity: ANDREA 3 aa5 07:00 Care prior to arrival: Medication(s) given: Solu-Medrol 125mg IM and neb tx. aa5 Historical: - Allergies: 07:00 all depression medications; aa5 07:00 Procardia; aa5 - PMHx: 07:00 Arthritis; Atrial fibrillation; diabetes mellitus; Hypertensive disorder; Myocardial aa5 infarction; COPD (Unknown); - PSHx: 07:00 Appendectomy; breast augmentation; cardiac stent; Cholecystectomy; Gastric Bypass; aa5 hysterectomy; Left hip; - Immunization history:: Adult Immunizations unknown. - Infectious Disease History:: Denies. - Family history:: not pertinent. - Social history:: Smoking status: Patient reports the use of cigarette tobacco products. - Hospitalizations: : No recent hospitalization is reported. Screenin:57 [facility] ED Fall Risk Assessment (Adult) History of falling in the last 3 months, kc6 including since admission No falls in past 3 months (0 pts) Confusion or Disorientation No (0 pts) Intoxicated or Sedated No (0 pts) Impaired Gait No (0 pts) Mobility Assist Device Used No (0 pt) Altered Elimination No (0 pt) Score/Fall Risk Level 0 - 2 = Low Risk. Abuse screen: Denies threats or abuse. Denies injuries from another. Nutritional screening: No deficits noted. Tuberculosis screening: No symptoms or risk factors identified. Assessment: 07:57 General: Appears in no apparent distress. comfortable, unkempt, well developed, kc6 Behavior is calm, cooperative, appropriate for age. Pain: Complains of pain in chest. Neuro: Level of Consciousness is awake, alert, obeys commands, Oriented to person, place, time, situation, Appropriate for age. Cardiovascular: Reports chest pain, Heart tones S1 S2 present Capillary refill < 3 seconds Rhythm is atrial fibrillation. Respiratory: Reports shortness of breath Airway is patent Trachea midline Respiratory effort is even, unlabored, Respiratory pattern is regular, symmetrical, Breath sounds are clear bilaterally. GI: No signs and/or symptoms were reported involving the gastrointestinal system. : No signs and/or symptoms were reported regarding the genitourinary system. EENT: No signs and/or symptoms were reported regarding the EENT system. Derm: No signs and/or symptoms reported regarding the dermatologic system. Skin is intact, with poor turgor Skin is pink, warm \T\ dry. Musculoskeletal: No signs and/or symptoms reported regarding the musculoskeletal system. Circulation, motion, and sensation intact. Capillary refill < 3 seconds, Range of motion: intact in all extremities. 07:58 Reassessment: attempted to straight stick pt for troponin with no success. Savannah RN kc6 notified. stated she will contact phlebotomy. 09:07 Reassessment: Patient appears in no apparent distress at this time. Patient and/or hb family updated on plan of care and expected duration. Pain level reassessed. Patient is alert, oriented x 3, equal unlabored respirations, skin warm/dry/pink. Vital Signs: 07:00 BP 124 / 90; Pulse 96; Resp 18 S; Temp 98(TE); Pulse Ox 99% on R/A; aa5 08:45 BP 122 / 72; Pulse 84; Resp 15; Temp 97.7(TE); Pulse Ox 99% on R/A; hb ED Course: 07:00 Arm band placed on. aa5 07:02 Patient arrived in ED. eb 07:02 Bill Edwards MD is Attending Physician. rn 07:14 Triage completed. aa5 07:17 XRAY Chest Pa And Lat (2 Views) In Process Unspecified. EDMS 07:20 Webster, Dot, RN is Primary Nurse. kc6 07:57 Patient has correct armband on for positive identification. Bed in low position. Call kc6 light in reach. Side rails up X 1. Client placed on continuous cardiac and pulse oximetry monitoring. NIBP monitoring applied. 07:57 Missed attempt(s): 24 gauge in right hand. Missed attempt(s): 24 gauge in left kc6 antecubital area. Oxygen administration via nasal cannula. 08:45 Provided Education on: follow up . hb 09:08 No provider procedures requiring assistance completed. Patient did not have IV access hb during this emergency room visit. Administered Medications: No medications were administered Medication: 08:45 VIS not applicable for this client. hb Outcome: 08:55 Discharge ordered by . rn 09:08 Discharged to home ambulatory, off property with security hb 09:08 Condition: stable 09:08 Discharge instructions given to patient, Instructed on discharge instructions, follow up and referral plans. Demonstrated understanding of instructions, follow-up care, 09:09 Patient left the ED. hb Signatures: Dispatcher [employer] EDMS Bill Edwards MD MD rn Calderon, Audri, RN RN aa5 Lissett Chavis RN RN Susi García Kaitlyn, RN RN kc6 Corrections: (The following items were deleted from the chart) 09:08 09:07 BP 122 / 72; Pulse 84bpm; Resp 15bpm; Pulse Ox 99% RA; hb hb
[2023-06-16 09:34] VITALS: BP 122/72; TEMP 97.7; O2SAT 99
--- NOTE | 2023-06-17 11:55 | EKG ---
Test Date: 2023-06-16 Test Time: 15:58:07 Insurance Job Titles: MB MEASUREMENT RESULTS: Intervals: Rate: 100 MS: QRSD: 90 QT: 386 QTc: 497 Webster: P: MS: QRS: 88 T: 127 INTERPRETIVE STATEMENTS: Atrial fibrillation Nonspecific T wave abnormality, probably digitalis effect Prolonged QT Abnormal ECG Compared to ECG 06/15/2023 04:10:53 T-wave abnormality now present Prolonged QT interval now present Ventricular premature complex(es) no longer present Electronically Signed On 06-17-23 11:53:21 CDT by David Irby
--- NOTE | 2023-06-20 12:52 | EKG ---
Test Date: 2023-06-16 Test Time: 07:28:59 Wedding Decorator: JOSE ALFREDO MEASUREMENT RESULTS: Intervals: Rate: 96 ID: QRSD: 90 QT: 380 QTc: 480 [place]: P: ID: QRS: 93 T: 87 INTERPRETIVE STATEMENTS: Atrial fibrillation Rightward axis Nonspecific T wave abnormality Prolonged QT Abnormal ECG Compared to ECG 06/15/2023 04:10:53 Right-axis deviation now present T-wave abnormality now present Prolonged QT interval now present Ventricular premature complex(es) no longer present Electronically Signed On 06-20-23 12:43:44 CDT by David Irby
== END 2023-06-16 09:09 | disposition home or self-care (01) ==
LOC: ER 06:58
DX: R07.9 Chest pain, unspecified (principal); I10 Essential (primary) hypertension; E11.9 Type 2 diabetes mellitus without complications; I25.2 Old myocardial infarction; Z88.8 Allergy status to other drugs, medicaments and biological substances; Z95.818 Presence of other cardiac implants and grafts; Z98.82 Breast implant status; Z72.0 Tobacco use
CPT/HCPCS: 36415; 71046; 84484; 93005; 99284

== ENCOUNTER 2023-06-16 15:53 | Emergency (ER) | payer OTHER ==
--- NOTE | 2023-06-16 16:13 | ER ---
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 mb9 Coronavirus screen: At this time, the client does not indicate any symptoms associated with coronavirus-19. Ebola Screen: No symptoms or risks identified at this time. Initial Sepsis Screen: Does the patient meet any 2 criteria? No. Patient's initial sepsis screen is negative. Does the patient have a suspected source of infection? No. Patient's initial sepsis screen is negative. Risk Assessment: Do you want to hurt yourself or someone else? Patient reports no desire to harm self or others. Onset of symptoms was June 16, 2023. 16:01 Acuity: ANDREA 3 mb9 16:01 Method Of Arrival: EMS: [facility] mb9 Triage Assessment: 16:02 General: Appears in no apparent distress. Behavior is calm, cooperative. Pain: mb9 Complains of pain in chest Pain does not radiate. Pain currently is 10 out of 10 on a pain scale. Quality of pain is described as pressure, throbbing, Pain began suddenly, Is continuous. EENT: No signs and/or symptoms were reported regarding the EENT system. Neuro: Shane Agitation-Sedation Scale (RASS): 0 - Alert and Calm Level of Consciousness is awake, alert, obeys commands, Oriented to person, place, time, situation, Appropriate for age. Cardiovascular: Reports chest pain, Heart tones S1 S2 present Patient's skin is warm and dry. Respiratory: Airway is patent Respiratory effort is even, unlabored, Respiratory pattern is regular, symmetrical, Breath sounds are clear bilaterally. GI: Abdomen is flat, non-distended, Bowel sounds present X 4 quads. Abd is soft and non tender X 4 quads. : No signs and/or symptoms were reported regarding the genitourinary system. Derm: Skin is pink, warm \\T\\ dry. Musculoskeletal: Range of motion: intact in all extremities. Historical: - Allergies: 16:00 all depression medications; mb9 16:00 Procardia; mb9 - PMHx: 16:00 Arthritis; Atrial fibrillation; COPD (Unknown); diabetes mellitus; Hypertensive mb9 disorder; Myocardial infarction; - PSHx: 16:00 Appendectomy; breast augmentation; cardiac stent; Cholecystectomy; Gastric Bypass; mb9 hysterectomy; Left hip; - Immunization history:: Adult Immunizations up to date. - Infectious Disease History:: Denies. - Social history:: Smoking status: Patient denies any tobacco usage or history of. - Family history:: not pertinent. - Hospitalizations: : No recent hospitalization is reported. Screenin:03 [facility] ED Fall Risk Assessment (Adult) History of falling in the last 3 months, mb9 including since admission No falls in past 3 months (0 pts) Confusion or Disorientation No (0 pts) Intoxicated or Sedated No (0 pts) Impaired Gait No (0 pts) Mobility Assist Device Used No (0 pt) Altered Elimination No (0 pt) Score/Fall Risk Level 0 - 2 = Low Risk Oriented to surroundings, Maintained a safe environment, Educated pt \\T\\ family on fall prevention, incl call for assistance when getting out of bed. Abuse screen: Denies threats or abuse. Nutritional screening: No deficits noted. Tuberculosis screening: No symptoms or risk factors identified. Assessment: 16:03 Reassessment: see triage assessment. mb9 Vital Signs: 16:01 BP 123 / 76; Pulse 95; Resp 16; Temp 98; Pulse Ox 100% on R/A; Weight 70.31 kg; Height mb9 5 ft. 3 in. ; Pain 10/10; 16:01 Body Mass Index 27.46 (70.31 kg, 160.02 cm) mb9 16:01 Pain Scale: Adult mb9 ED Course: 15:55 Patient arrived in ED. ec2 15:55 EKG done, by ED staff, reviewed by Bill Edwards MD. mb9 15:56 Bill Edwards MD is Attending Physician. rn 16:00 Elisa Rangel RN is Primary Nurse. mb9 16:00 Arm band placed on. mb9 16:02 Triage completed. mb9 16:03 Placed in gown. Bed in low position. Call light in reach. Side rails up X 1. Provided mb9 Education on: press call light if needing anything. Client placed on continuous cardiac and pulse oximetry monitoring. NIBP monitoring applied. administrative services specialist on. Door closed. Noise minimized. 16:03 No provider procedures requiring assistance completed. mb9 16:05 Patient requests food. Patient requests liquids. mb9 16:07 Warm blanket given. PO fluids given. mb9 16:17 IV discontinued, intact, bleeding controlled, No redness/swelling at site. Pressure mb9 dressing applied. Administered Medications: No medications were administered Medication: 16:03 VIS not applicable for this client. mb9 Outcome: 16:13 Discharge ordered by . rn 16:17 Discharged to home ambulatory, mb9 16:17 Condition: stable 16:17 Discharge instructions given to patient, Instructed on discharge instructions, follow up and referral plans. Demonstrated understanding of instructions, follow-up care, pt escorted out of ER by security 16:23 Patient left the ED. mb9 Signatures: Bill Edwards MD MD rn Breneman, Elisa Flood RN RN mb9 Nabeel Guardado MD MD ec2
--- NOTE | 2023-06-16 16:13 | EDPHYS ---
Physician Documentation [facility] Name: Reina Hartley Age: 67 yrs Sex: Female : 1955 Arrival Date: 06/16/2023 Time: 15:53 Bed 12 Private MD: ED Physician Bill Edwards HPI: 06/15 16:08 This 67 yrs old Female presents to ER via EMS with complaints of chest pain. rn 16:08 The patient or guardian reports chest pain that is located primarily in the chest rn diffusely. Onset: at an unknown time. The pain does not radiate. Associated signs and symptoms: Pertinent negatives: abdominal pain, cough, lower extremity swelling, palpitations, shortness of breath. The chest pain is described as aching. Duration: The patient or guardian reports multiple episodes, that are intermittent. Modifying factors: The symptoms are alleviated by nothing. the symptoms are aggravated by nothing. Severity of pain: At its worst the pain was mild in the emergency department the pain is unchanged. The patient has experienced similar episodes in the past. Patient reports diffuse chest pain, chronic, worse over the last few days. Multiple ER visits recently for chest pain and shortness of breath without acute findings. Actually saw her myself a few hours ago. No fever. No trauma. No hemoptysis. No fever. Does not feel ill. No abdominal pain. Patient has been arrested multiple times for trespassing on hospital grounds here and [facility] recently. From my understanding patient is homeless as well. Historical: - Allergies: 16:00 all depression medications; mb9 16:00 Procardia; mb9 - PMHx: 16:00 Arthritis; Atrial fibrillation; COPD (Unknown); diabetes mellitus; Hypertensive mb9 disorder; Myocardial infarction; - PSHx: 16:00 Appendectomy; breast augmentation; cardiac stent; Cholecystectomy; Gastric Bypass; mb9 hysterectomy; Left hip; - Immunization history:: Adult Immunizations up to date. - Infectious Disease History:: Denies. - Social history:: Smoking status: Patient denies any tobacco usage or history of. - Family history:: not pertinent. - Hospitalizations: : No recent hospitalization is reported. ROS: 16:08 Constitutional: Negative for fever, chills, and weight loss, Eyes: Negative for injury, rn pain, redness, and discharge, Neck: Negative for injury, pain, and swelling, Cardiovascular: Positive for chest pain Respiratory: Negative for shortness of breath, cough, wheezing, and pleuritic chest pain, Abdomen/GI: Negative for abdominal pain, nausea, vomiting, diarrhea, and constipation, MS/Extremity: Negative for injury and deformity, Skin: Negative for injury, rash, and discoloration, Neuro: Negative for headache, weakness, numbness, tingling, and seizure, Exam: 16:08 Constitutional: This is a well developed, well nourished patient who is awake, alert, rn and in no acute distress. Head/Face: Normocephalic, atraumatic. Cardiovascular: Regular rate, irregularly irregular rhythm Respiratory: No increased work of breathing, no retractions or nasal flaring. Abdomen/GI: Soft, non-tender MS/ Extremity: Pulses equal, no cyanosis. Neuro: Awake and alert, GCS 15 Vital Signs: 16:01 BP 123 / 76; Pulse 95; Resp 16; Temp 98; Pulse Ox 100% on R/A; Weight 70.31 kg; Height mb9 5 ft. 3 in. ; Pain 10/10; 16:01 Body Mass Index 27.46 (70.31 kg, 160.02 cm) mb9 16:01 Pain Scale: Adult mb9 MDM: 15:56 Patient medically screened. rn 16:11 Differential diagnosis: acute myocardial infarction, anxiety, coronary artery disease rn chest wall pain, gastritis, gastroesophageal reflux disease (GERD), pericarditis, pleurisy. HEART Score: History: Slightly Suspicious (0), ECG: Non specific repolarization disturbance / LBTB / PM (1), Age: > or = 65 years (2), Risk Factors: 1 or 2 risk factors (1), Troponin: < or = 1 x Normal Limit (0), Total Score = 4. Data reviewed: vital signs, nurses notes, old medical records, Troponin from a few hours ago negative. Chest x-ray was negative as well. No changes in ECG either. EKG, and as a result, I will discharge patient. Counseling: I had a detailed discussion with the patient and/or guardian regarding the historical points, exam findings, and any diagnostic results supporting the discharge/admit diagnosis, the need for outpatient follow up, to return to the emergency department if symptoms worsen or persist or if there are any questions or concerns that arise at home. Special discussion: I discussed with the patient/guardian in detail that at this point there is no indication for admission to the hospital. It is understood, however, that if the symptoms persist or worsen the patient needs to return immediately for re-evaluation. 06/15 15:56 Order name: EKG; Complete Time: 15:57 rn 06/15 15:56 Order name: EKG - Nurse/Tech; Complete Time: 16:00 rn Administered Medications: No medications were administered Disposition Summary: 06/16/23 16:13 Discharge Ordered Notes: Location: Home rn Problem: new rn Symptoms: have improved rn Condition: Stable rn Diagnosis - Chest pain, unspecified rn - COPD/ Chronic obstructive pulmonary disease, unspecified rn Followup: rn - With: Private Physician - When: As needed - Reason: Recheck today's complaints, Re-evaluation by your physician Discharge Instructions: - Discharge Summary Sheet rn - Nonspecific Chest Pain, Adult rn - Chronic Obstructive Pulmonary Disease rn - Pain Without a Known Cause rn Forms: - Medication Reconciliation Form rn - Thank You Letter rn - Antibiotic director learning - Prescription Opioid Use rn - Patient Portal Instructions rn - Leadership Thank You Letter rn Signatures: Bill Edwards MD MD rn Breneman, Mary Beth RN RN mb9
[2023-06-16 16:47] VITALS: BP 123/76; TEMP 98; O2SAT 100
--- NOTE | 2023-06-17 11:59 | EKG ---
Test Date: 2023-06-15 Test Time: 04:10:53 Wilton Weaver: GABRIEL MEASUREMENT RESULTS: Intervals: Rate: 101 KS: QRSD: 92 QT: 370 QTc: 479 Hanna: P: KS: QRS: 82 T: 45 INTERPRETIVE STATEMENTS: Atrial fibrillation with rapid ventricular response with premature ventricular or aberrantly conducted complexes Abnormal ECG Compared to ECG 06/11/2023 07:16:15 Ventricular premature complex(es) now present Electronically Signed On 06-17-23 11:54:49 CDT by David Irby
== END 2023-06-16 16:23 | disposition home or self-care (01) ==
LOC: ER 15:53
DX: R07.9 Chest pain, unspecified (principal); J44.9 Chronic obstructive pulmonary disease, unspecified; I10 Essential (primary) hypertension; I25.2 Old myocardial infarction; Z95.818 Presence of other cardiac implants and grafts; Z88.8 Allergy status to other drugs, medicaments and biological substances; Z98.82 Breast implant status
CPT/HCPCS: 93005; 99284

== ENCOUNTER 2023-06-21 13:08 | Emergency (ER) | payer OTHER ==
--- NOTE | 2023-06-21 14:56 | RAD REPORT ---
EXAM DESCRIPTION: RAD - Lumbar Spine 3 Views - 06/21/2023 2:45 pm CLINICAL HISTORY: PAIN Radiculopathy COMPARISON: <Comparisons> FINDINGS: Significant osteopenia. Multiple wedge compression deformities are seen at the thoracolumb ar junction, chronic in appearance. Disc thinning with small endplate osteophytes present throughout the lumbar levels. Grade 1 degenerative retrolisthesis L2 on 3. Extensive postsurgical clips in the upper abdomen. IMPRESSION: Prominent diffuse osteopenia. Chronic wedge compression deformities at the thoracolumbar spine.
--- NOTE | 2023-06-21 15:12 | RAD REPORT ---
EXAM DESCRIPTION: RAD - Sacrum And Coccyx - 06/21/2023 2:45 pm CLINICAL HISTORY: PAIN COMPARISON: <Comparisons> FINDINGS: Diffuse osteopenia. The high degree of osteopenia limits assessment. No evidence of acute fracture or dislocation. Left hip arthroplasty noted. If there is persistent or progressive pain, MRI followup would be suggested.
--- NOTE | 2023-06-21 15:14 | EDPHYS ---
Physician Documentation [facility] Name: Reina Hartley Age: 67 yrs Sex: Female : 1955 Arrival Date: 06/21/2023 Time: 13:08 Bed IW1 Private MD: ED Physician Nabeel Guardado HPI: 06/20 16:38 This 67 yrs old Female presents to ER via EMS with complaints of Back Pain. kb 16:38 Pt is a 67 year old female who presents for lower abd pain. States she always has kb problems with her low back but she fell today so it is worse. Ambulates with steady gait. Denies urinary symptoms, numbness, tingling. Historical: - Allergies: 13:41 all depression medications; as6 13:41 Procardia; as6 - PMHx: 13:41 Arthritis; Atrial fibrillation; COPD (Unknown); diabetes mellitus; Hypertensive as6 disorder; Myocardial infarction; - PSHx: 13:41 Appendectomy; breast augmentation; cardiac stent; Cholecystectomy; Gastric Bypass; as6 hysterectomy; Left hip; - Immunization history:: Adult Immunizations up to date. - Infectious Disease History:: Denies. - Social history:: Smoking status: Patient reports the use of cigarette tobacco products. ROS: 16:37 Constitutional: As per HPI kb Exam: 16:37 Constitutional: This is a well developed, well nourished patient who is awake, alert, kb and in no acute distress. Head/Face: Normocephalic, atraumatic. ENT: Moist Mucous membranes Cardiovascular: Regular rate Respiratory: Respirations even and unlabored. No increased work of breathing. Talking in full sentences Abdomen/GI: Soft, non-tender. No distention Skin: Warm, dry with normal turgor. Normal color. MS/ Extremity: Pulses equal, no cyanosis. Neurovascular intact. Full, normal range of motion. Neuro: Awake and alert, GCS 15, oriented to person, place, time, and situation. Moves all extremities. Normal gait. 16:37 Back: pain, that is mild, of the lumbar area and sacrum, ROM is normal, Vital Signs: 13:44 BP 139 / 86; Pulse 92; Resp 18 S; Temp 97.9(TE); Pulse Ox 100% on R/A; Weight 58.97 kg as6 (R); Height 5 ft. 2 in. (R); Pain 12/21; 13:44 Body Mass Index 23.78 (58.97 kg, 157.48 cm) as6 13:44 Pain Scale: Adult as6 MDM: 13:40 Patient medically screened. kb 16:38 Differential diagnosis: arthritis, strain, fracture, Herniated disc. Data reviewed: kb vital signs, nurses notes. Historians other than the Patient: EMS: [facility]. Counseling: I had a detailed discussion with the patient and/or guardian regarding the historical points, exam findings, and any diagnostic results supporting the discharge/admit diagnosis, radiology results, the need for outpatient follow up, a family practitioner, to return to the emergency department if symptoms worsen or persist or if there are any questions or concerns that arise at home. 06/20 13:46 Order name: Lumbar Spine (3 Views) XRAY; Complete Time: 14:57 kb 06/20 13:46 Order name: Sacrum And Coccyx XRAY; Complete Time: 15:14 kb Administered Medications: 15:57 Drug: Acetaminophen PO 1000 mg PO once Route: PO; as6 15:57 Follow up: Response: No adverse reaction as6 Disposition Summary: 06/21/23 15:14 Discharge Ordered Notes: Location: Home kb Condition: Stable kb Diagnosis - Low back pain kb Followup: kb - With: Emergency Department - When: As needed - Reason: Worsening of condition Followup: kb - With: Private Physician - When: 2 - 3 days - Reason: Recheck today's complaints, Continuance of care, Re-evaluation by your physician Discharge Instructions: - Discharge Summary Sheet kb - Musculoskeletal Pain kb - Osteopenia kb Forms: - Medication Reconciliation Form kb - Thank You Letter kb - Antibiotic Education kb - Prescription Opioid Use kb - Patient Portal Instructions kb - Leadership Thank You Letter kb Signatures: Dispatcher [employer] Cami Guthrie, ISAIAS FOX-Benito Ramey, RN RN as6
--- NOTE | 2023-06-21 15:14 | ER ---
Nurse's Notes [facility] Name: Reina Hartley Age: 67 yrs Sex: Female : 1955 Arrival Date: 06/21/2023 Time: 13:08 Bed IW1 Private MD: Diagnosis: Low back pain Presentation: 06/20 13:42 Chief complaint: EMS states: called out for back pain from a call. Coronavirus screen: as6 At this time, the client does not indicate any symptoms associated with coronavirus-19. Ebola Screen: No symptoms or risks identified at this time. Risk Assessment: Do you want to hurt yourself or someone else? Patient reports no desire to harm self or others. Onset of symptoms was June 21, 2023. 13:42 Method Of Arrival: EMS: [facility] as6 13:44 Initial Sepsis Screen: Does the patient meet any 2 criteria? No. Patient's initial as6 sepsis screen is negative. Does the patient have a suspected source of infection? No. Patient's initial sepsis screen is negative. 13:44 Acuity: ANDREA 4 as6 Triage Assessment: 13:45 General: Appears in no apparent distress. unkempt, Behavior is calm, cooperative. Pain: as6 Complains of pain in back. Historical: - Allergies: 13:41 all depression medications; as6 13:41 Procardia; as6 - PMHx: 13:41 Arthritis; Atrial fibrillation; COPD (Unknown); diabetes mellitus; Hypertensive as6 disorder; Myocardial infarction; - PSHx: 13:41 Appendectomy; breast augmentation; cardiac stent; Cholecystectomy; Gastric Bypass; as6 hysterectomy; Left hip; - Immunization history:: Adult Immunizations up to date. - Infectious Disease History:: Denies. - Social history:: Smoking status: Patient reports the use of cigarette tobacco products. Screenin:58 [facility] ED Fall Risk Assessment (Adult) History of falling in the last 3 months, as6 including since admission Yes- single mechanical fall (1 pt) Confusion or Disorientation No (0 pts) Intoxicated or Sedated No (0 pts) Impaired Gait No (0 pts) Mobility Assist Device Used No (0 pt) Altered Elimination No (0 pt) Score/Fall Risk Level 0 - 2 = Low Risk Oriented to surroundings, Maintained a safe environment, Educated pt \T\ family on fall prevention, incl call for assistance when getting out of bed, Assessed \T\ reinforced patient's understanding of fall precautions. Abuse screen: Denies threats or abuse. Denies injuries from another. Nutritional screening: No deficits noted. Tuberculosis screening: No symptoms or risk factors identified. Vital Signs: 13:44 BP 139 / 86; Pulse 92; Resp 18 S; Temp 97.9(TE); Pulse Ox 100% on R/A; Weight 58.97 kg as6 (R); Height 5 ft. 2 in. (R); Pain 10/10; 13:44 Body Mass Index 23.78 (58.97 kg, 157.48 cm) as6 13:44 Pain Scale: Adult as6 ED Course: 13:36 Patient arrived in ED. mr 13:40 Cami Anderson [facility]C [facility] kb 13:40 Nabeel Guardado MD is Attending Physician. kb 13:41 Arm band placed on. as6 13:45 Triage completed. as6 14:47 Lumbar Spine (3 Views) XRAY In Process Unspecified. EDMS 14:47 Sacrum And Coccyx XRAY In Process Unspecified. EDMS 15:58 Patient has correct armband on for positive identification. Provided Education on: as6 follow up with PCP. 15:58 No provider procedures requiring assistance completed. Patient did not have IV access as6 during this emergency room visit. Administered Medications: 15:57 Drug: Acetaminophen PO 1000 mg PO once Route: PO; as6 15:57 Follow up: Response: No adverse reaction as6 Medication: 15:58 VIS not applicable for this client. as6 Outcome: 15:14 Discharge ordered by . kb 15:58 Discharged to home ambulatory, as6 15:58 Condition: stable 15:58 Discharge instructions given to patient, Instructed on discharge instructions, follow up and referral plans. Demonstrated understanding of instructions, follow-up care, 15:59 Patient left the ED. as6 Signatures: Dispatcher [employer] EDMS Cami Anderson FNP-C FNP-Elisa Al, Reg Reg BarrettsrinivasBenito, RN RN as6
[2023-06-21] MEDS ORDERED: ACETAMINOPHEN 500 MG TAB ONE (15:55)
[2023-06-21 16:36] VITALS: BP 139/86; TEMP 97.9; O2SAT 100
== END 2023-06-21 15:59 | disposition home or self-care (01) ==
LOC: ER 13:08 → RAD 13:08 → ER 15:59
DX: M54.50 Low back pain, unspecified (principal); I10 Essential (primary) hypertension; F17.210 Nicotine dependence, cigarettes, uncomplicated; Z88.8 Allergy status to other drugs, medicaments and biological substances; Z95.818 Presence of other cardiac implants and grafts; Z98.82 Breast implant status
CPT/HCPCS: 72100; 72220; 99283

== ENCOUNTER 2023-06-28 16:45 | Emergency (ER) | payer OTHER ==
--- NOTE | 2023-06-28 17:22 | ER ---
Nurse's Notes [facility] Name: Reina Hartley Age: 67 yrs Sex: Female : 1955 Arrival Date: 06/28/2023 Time: 16:45 Bed 14 Private MD: Diagnosis: Chest pain, unspecified Presentation: 06/27 16:46 Chief complaint: EMS states: "toned out for chest pain that started this morning.". mb9 Coronavirus screen: At this time, the client does not indicate any symptoms associated with coronavirus-19. Ebola Screen: No symptoms or risks identified at this time. Initial Sepsis Screen: Does the patient meet any 2 criteria? No. Patient's initial sepsis screen is negative. Does the patient have a suspected source of infection? No. Patient's initial sepsis screen is negative. Risk Assessment: Do you want to hurt yourself or someone else? Patient reports no desire to harm self or others. Onset of symptoms was June 28, 2023. 16:46 Acuity: ANDREA 3 mb9 16:46 Method Of Arrival: EMS: [facility] mb9 Triage Assessment: 16:49 General: Appears in no apparent distress. Behavior is calm, cooperative. Pain: mb9 Complains of pain in chest. Historical: - Allergies: 16:49 all depression medications; mb9 16:49 Procardia; mb9 - PMHx: 16:49 Arthritis; Atrial fibrillation; COPD (Unknown); diabetes mellitus; Hypertensive mb9 disorder; Myocardial infarction; - PSHx: 16:49 Appendectomy; breast augmentation; cardiac stent; Cholecystectomy; Gastric Bypass; mb9 hysterectomy; Left hip; - Immunization history:: Adult Immunizations up to date. - Infectious Disease History:: Denies. - Social history:: Smoking status: Patient reports the use of cigarette tobacco products. - Family history:: not pertinent. - Hospitalizations: : No recent hospitalization is reported. Screenin:51 [facility] ED Fall Risk Assessment (Adult) History of falling in the last 3 months, mb9 including since admission No falls in past 3 months (0 pts) Confusion or Disorientation No (0 pts) Intoxicated or Sedated No (0 pts) Impaired Gait No (0 pts) Mobility Assist Device Used No (0 pt). Abuse screen: Denies threats or abuse. Nutritional screening: No deficits noted. Tuberculosis screening: No symptoms or risk factors identified. Assessment: 17:10 General: Appears in no apparent distress. comfortable, unkempt, Behavior is calm, ph cooperative, appropriate for age. Pain: Complains of pain in chest Pain does not radiate. Neuro: Level of Consciousness is awake, alert, obeys commands, Oriented to person, place, time, situation. Cardiovascular: Capillary refill < 3 seconds in bilateral fingers Patient's skin is warm and dry. Respiratory: Airway is patent Respiratory effort is even, unlabored, Respiratory pattern is regular, symmetrical. Derm: Skin is pink, warm \\T\\ dry. Vital Signs: 16:46 BP 135 / 96; Pulse 102; Resp 16; Temp 97.8; Pulse Ox 100% on R/A; mb9 17:45 BP 141 / 86; Pulse 93; Resp 18; Temp 97.9; Pulse Ox 99% on R/A; ph ED Course: 16:46 Patient arrived in ED. bd 16:48 Bill Edwards MD is Attending Physician. rn 16:49 Triage completed. mb9 16:49 Arm band placed on. mb9 16:51 Placed in gown. Bed in low position. Call light in reach. Side rails up X 1. Client mb9 placed on continuous cardiac and pulse oximetry monitoring. NIBP monitoring applied. monitor and storage bin tender on. 17:25 Trisha Flowers, WALI is Primary Nurse. ph 17:46 No provider procedures requiring assistance completed. Patient did not have IV access ph during this emergency room visit. Administered Medications: 17:45 Drug: Acetaminophen PO 325 mg PO once Route: PO; ph 17:45 Follow up: Response: No adverse reaction; Medication administered at discharge. ph 17:45 Drug: Ibuprofen PO 600 mg PO once Route: PO; ph 17:45 Follow up: Response: No adverse reaction; Medication administered at discharge. ph Medication: 16:51 VIS not applicable for this client. mb9 Outcome: 17:21 Discharge ordered by . rn 17:46 Discharged to home ambulatory, ph 17:46 Condition: good 17:46 Discharge instructions given to patient, Instructed on discharge instructions, follow up and referral plans. Demonstrated understanding of instructions, follow-up care, 17:46 Patient left the ED. ph Signatures: Vijaya Baker Bill Edwards MD MD rn Hall, Patricia, RN Elisa Hilario ph, RN RN mb9 Corrections: (The following items were deleted from the chart) 16:53 16:46 Pulse 102bpm; Resp 16bpm; Pulse Ox 100% RA; Temp 97.8F; mb9 mb9
--- NOTE | 2023-06-28 17:22 | EDPHYS ---
Physician Documentation [facility] Name: Reina Hartley Age: 67 yrs Sex: Female : 1955 Arrival Date: 06/28/2023 Time: 16:45 Bed 14 Private MD: ED Physician Bill Edwards HPI: 06/27 17:13 This 67 yrs old Female presents to ER via EMS with complaints of Chest Pain. rn 17:13 The patient or guardian reports chest pain that is located primarily in the substernal rn area. Onset: at an unknown time. The pain does not radiate. Associated signs and symptoms: Pertinent negatives: abdominal pain, cough, diaphoresis, dizziness, headache, lower extremity pain, lightheadedness, near syncope, palpitations, shortness of breath, syncope, vomiting. The chest pain is described as aching. Duration: The patient or guardian reports multiple episodes, that are intermittent. Modifying factors: The symptoms are alleviated by nothing. the symptoms are aggravated by nothing. Severity of pain: At its worst the pain was mild in the emergency department the pain has improved. The patient has experienced similar episodes in the past. Patient reports longstanding episodes of chest pain, intermittent, not associated with new cough or dyspnea. No fever. No trauma. Patient believes it is because she has not had her metoprolol but has been off of her metoprolol over a month. Denies drug use. Denies abdominal pain or vomiting.. Historical: - Allergies: 16:49 all depression medications; mb9 16:49 Procardia; mb9 - PMHx: 16:49 Arthritis; Atrial fibrillation; COPD (Unknown); diabetes mellitus; Hypertensive mb9 disorder; Myocardial infarction; - PSHx: 16:49 Appendectomy; breast augmentation; cardiac stent; Cholecystectomy; Gastric Bypass; mb9 hysterectomy; Left hip; - Immunization history:: Adult Immunizations up to date. - Infectious Disease History:: Denies. - Social history:: Smoking status: Patient reports the use of cigarette tobacco products. - Family history:: not pertinent. - Hospitalizations: : No recent hospitalization is reported. ROS: 17:13 Constitutional: Negative for fever, chills, and weight loss, Cardiovascular: Positive rn for chest pain, negative for palpitations or edema Respiratory: Negative for shortness of breath, cough, wheezing, and pleuritic chest pain, Abdomen/GI: Negative for abdominal pain, nausea, vomiting, diarrhea, and constipation, Back: Negative for injury and pain, MS/Extremity: Negative for injury and deformity, Skin: Negative for injury, rash, and discoloration, Neuro: Negative for headache, weakness, numbness, tingling, and seizure, Exam: 17:08 ECG was reviewed by the Attending Physician. rn 17:13 Constitutional: This is a well developed, well nourished patient who is awake, alert, rn and in no acute distress. Cardiovascular: Regular rate, irregular rhythm. No pulse deficits Respiratory: Speaking full sentences, unlabored. No increased work of breathing, no retractions or nasal flaring. Abdomen/GI: Soft, non-tender MS/ Extremity: Pulses equal, no cyanosis. Neuro: Awake and alert, GCS 15 Vital Signs: 16:46 BP 135 / 96; Pulse 102; Resp 16; Temp 97.8; Pulse Ox 100% on R/A; mb9 17:45 BP 141 / 86; Pulse 93; Resp 18; Temp 97.9; Pulse Ox 99% on R/A; ph MDM: 16:49 Patient medically screened. rn 17:19 Differential diagnosis: anxiety, coronary artery disease chest wall pain, rn costochondritis, gastroesophageal reflux disease (GERD), Chronic pain. Data reviewed: vital signs, nurses notes, old medical records, Reviewed multiple old medical records and visits, seems to come in a lot for chest pain, has chronic atrial fibrillation and noncompliant with medication. No change in ECG today compared to last couple of visits. Stable vital signs. EKG, and as a result, I will discharge patient. Care significantly affected by the following chronic conditions: Atrial fibrillation and hypertension. Care significantly affected by the following Social Determinants of Health: Poor access to healthcare and/or lack of insurance, Poor access to transportation, Inadequate housing. Counseling: I had a detailed discussion with the patient and/or guardian regarding the historical points, exam findings, and any diagnostic results supporting the discharge/admit diagnosis, the need for outpatient follow up, to return to the emergency department if symptoms worsen or persist or if there are any questions or concerns that arise at home. Special discussion: I discussed with the patient/guardian in detail that at this point there is no indication for admission to the hospital. It is understood, however, that if the symptoms persist or worsen the patient needs to return immediately for re-evaluation. 06/27 16:49 Order name: EKG; Complete Time: 16:49 rn 06/27 16:49 Order name: EKG - Nurse/Tech; Complete Time: 16:53 rn EC:08 Rate is 99 beats/min. Rhythm is irregularly irregular. QRS [place] is Normal. QRS interval rn is normal. T waves are Normal. No ST changes noted. Clinical impression: Atrial Fibrillation. Interpreted by me. Reviewed by me. Administered Medications: 17:45 Drug: Acetaminophen PO 325 mg PO once Route: PO; ph 17:45 Follow up: Response: No adverse reaction; Medication administered at discharge. ph 17:45 Drug: Ibuprofen PO 600 mg PO once Route: PO; ph 17:45 Follow up: Response: No adverse reaction; Medication administered at discharge. ph Disposition Summary: 06/28/23 17:21 Discharge Ordered Notes: Location: Home rn Problem: chronic rn Symptoms: have improved rn Condition: Stable rn Diagnosis - Chest pain, unspecified rn Followup: rn - With: Private Physician - When: As needed - Reason: Recheck today's complaints, Re-evaluation by your physician Discharge Instructions: - Discharge Summary Sheet rn - Nonspecific Chest Pain, Adult rn Forms: - Medication Reconciliation Form rn - Thank You Letter rn - Antibiotic general internal medicine physician - Prescription Opioid Use rn - Patient Portal Instructions rn - Leadership Thank You Letter rn Signatures: Bill Edwards MD MD rn Hall, Patricia, RN RN Elisa Thompson, RN RN mb9
[2023-06-28] MEDS ORDERED: IBUPROFEN 400 MG TAB ONE (17:39)
[2023-06-28] MEDS ORDERED: IBUPROFEN 200 MG TAB PO ONE (17:39)
[2023-06-28] MEDS ORDERED: ACETAMINOPHEN 325 MG TABLET ONE (17:40)
[2023-06-28 23:09] VITALS: BP 141/86; TEMP 97.9; O2SAT 99
== END 2023-06-28 17:46 | disposition home or self-care (01) ==
LOC: ER 16:45
DX: R07.9 Chest pain, unspecified (principal); I10 Essential (primary) hypertension; I25.2 Old myocardial infarction; F17.210 Nicotine dependence, cigarettes, uncomplicated; Z98.82 Breast implant status; Z88.8 Allergy status to other drugs, medicaments and biological substances; Z95.818 Presence of other cardiac implants and grafts
CPT/HCPCS: 93005; 99284

== ENCOUNTER 2023-06-30 10:12 | Emergency (ER) | payer OTHER ==
--- NOTE | 2023-06-30 10:19 | EDPHYS ---
Physician Documentation [facility] Name: Reina Hartley Age: 67 yrs Sex: Female : 1955 Arrival Date: 06/30/2023 Time: 10:12 Bed 18 Private MD: ED Physician Yumi Holder HPI: 06/29 10:16 This 67 yrs old Female presents to ER via EMS with complaints of Chest Pain. sp3 10:16 67-year-old female well-known to the emergency department with history of atrial sp3 fibrillation who never takes her anticoagulants, COPD, diabetes, hypertension now presents to the ED with chief complaint of recurrent chest pain. She has had multiple recent visits for the same. Her EKG remains at her baseline atrial fibrillation on all of her visits. She states this is the same chest pain she has been having for the last several years. She denies any other new symptoms including shortness of breath, abdominal pain, vomiting, or any other signs or symptoms on ROS at this time.. Historical: - Allergies: 10:15 all depression medications; bp 10:15 Procardia; bp - PMHx: 10:15 Arthritis; Atrial fibrillation; COPD (Unknown); diabetes mellitus; Hypertensive bp disorder; Myocardial infarction; - PSHx: 10:15 Appendectomy; breast augmentation; cardiac stent; Cholecystectomy; Gastric Bypass; bp hysterectomy; Left hip; - Immunization history:: Adult Immunizations. - Infectious Disease History:: Denies. - Social history:: Smoking status: unknown. ROS: 10:17 Constitutional: Negative for fever, chills, and weight loss, Eyes: Negative for injury, sp3 pain, redness, and discharge, ENT: Negative for injury, pain, and discharge, Neck: Negative for injury, pain, and swelling, Respiratory: Negative for shortness of breath, cough, wheezing, and pleuritic chest pain, Abdomen/GI: Negative for abdominal pain, nausea, vomiting, diarrhea, and constipation, Back: Negative for injury and pain, MS/Extremity: Negative for injury and deformity, Skin: Negative for injury, rash, and discoloration, Neuro: Negative for headache, weakness, numbness, tingling, and seizure, Psych: Negative for depression, anxiety, suicide ideation, homicidal ideation, and hallucinations, Allergy/Immunology: Negative for hives, rash, and allergies, Endocrine: Negative for neck swelling, polydipsia, polyuria, polyphagia, and marked weight changes, Hematologic/Lymphatic: Negative for swollen nodes, abnormal bleeding, and unusual bruising, 10:17 All other systems are negative, Exam: 10:17 Constitutional: This is a well developed, well nourished patient who is awake, alert, sp3 and in no acute distress. Head/Face: Normocephalic, atraumatic. Eyes: Pupils equal round and reactive to light, extra-ocular motions intact. Lids and lashes normal. Conjunctiva and sclera are non-icteric and not injected. Cornea within normal limits. Periorbital areas with no swelling, redness, or edema. ENT: Nares patent. No nasal discharge, no septal abnormalities noted. External auditory canals are clear. Oropharynx with no redness, swelling, or masses, exudates, or evidence of obstruction, uvula midline. Mucous membranes moist. Neck: Trachea midline, no thyromegaly or masses palpated, and no cervical lymphadenopathy. Supple, full range of motion without nuchal rigidity, or vertebral point tenderness. No Meningismus. Chest/axilla: Normal chest wall appearance and motion. Nontender with no deformity. No lesions are appreciated. Respiratory: Lungs have equal breath sounds bilaterally, clear to auscultation and percussion. No rales, rhonchi or wheezes noted. No increased work of breathing, no retractions or nasal flaring. Abdomen/GI: Soft, non-tender, with normal bowel sounds. No distension or tympany. No guarding or rebound. No evidence of tenderness throughout. Back: No spinal tenderness. No costovertebral tenderness. Full range of motion. Skin: Warm, dry with normal turgor. Normal color with no rashes, no lesions, and no evidence of cellulitis. MS/ Extremity: Pulses equal, no cyanosis. Neurovascular intact. Full, normal range of motion. Neuro: Awake and alert, GCS 15, oriented to person, place, time, and situation. Cranial nerves II-XII grossly intact. Motor strength 5/5 in all extremities. Sensory grossly intact. Cerebellar exam normal. Normal gait. Psych: Awake, alert, with orientation to person, place and time. Behavior, mood, and affect are within normal limits. 10:17 Cardiovascular: Irregularly irregular rhythm otherwise normal., 10:17 ECG was reviewed by the Attending Physician. EKG demonstrates atrial fibrillation with ventricular response at 100 bpm with occasional ectopy. No significant ST/T changes. This is unchanged from her prior EKG. Vital Signs: 10:14 BP 140 / 100; Pulse 90; Resp 16; Temp 98; Pulse Ox 97% ; bp MDM: 10:18 Data reviewed: vital signs, nurses notes, EMS record, diagnostic data from outside sp3 facility, EKG. ED course: 67-year-old female with recurrent chest pain and is is her chronic pain. I am not highly suspicious for acute coronary syndrome, PE, TAD, or any other critical process at this time. Given her baseline EKG, we will safely discharged home at this time.. 10:19 Patient medically screened. sp3 06/29 10:17 Order name: EKG - Nurse/Tech; Complete Time: 10:17 bp Administered Medications: No medications were administered Disposition Summary: 06/30/23 10:19 Discharge Ordered Notes: Location: Home sp3 Condition: Stable sp3 Diagnosis - Chest pain, unspecified sp3 Followup: sp3 - With: Private Physician - When: Upon discharge from the Emergency Department - Reason: Continuance of care Discharge Instructions: - Discharge Summary Sheet sp3 - Nonspecific Chest Pain, Adult sp3 Forms: - Medication Reconciliation Form sp3 - Thank You Letter sp3 - Antibiotic Education sp3 - Prescription Opioid Use sp3 - Patient Portal Instructions sp3 - Leadership Thank You Letter sp3 Signatures: Bruce Grewal, RN RN Yumi Gibbons MD MD sp3
--- NOTE | 2023-06-30 10:19 | ER ---
Nurse's Notes [facility] Name: Reina Hartley Age: 67 yrs Sex: Female : 1955 Arrival Date: 06/30/2023 Time: 10:12 Bed 18 Private MD: Diagnosis: Chest pain, unspecified Presentation: 06/29 10:14 Chief complaint: EMS states: CHEST PAIN IN PD LOBBY. Coronavirus screen: At this time, bp the client does not indicate any symptoms associated with coronavirus-19. Ebola Screen: No symptoms or risks identified at this time. Initial Sepsis Screen: Does the patient meet any 2 criteria? No. Patient's initial sepsis screen is negative. Does the patient have a suspected source of infection? No. Patient's initial sepsis screen is negative. Risk Assessment: Do you want to hurt yourself or someone else? Patient reports no desire to harm self or others. Onset of symptoms is unknown. Care prior to arrival: EKG. 10:14 Method Of Arrival: EMS: [facility] bp 10:14 Acuity: ANDREA 3 bp Triage Assessment: 10:15 General: Appears in no apparent distress. Behavior is calm, cooperative, appropriate bp for age. Pain: Complains of pain in chest. Cardiovascular: Reports chest pain, since CHRONIC. Historical: - Allergies: 10:15 all depression medications; bp 10:15 Procardia; bp - PMHx: 10:15 Arthritis; Atrial fibrillation; COPD (Unknown); diabetes mellitus; Hypertensive bp disorder; Myocardial infarction; - PSHx: 10:15 Appendectomy; breast augmentation; cardiac stent; Cholecystectomy; Gastric Bypass; bp hysterectomy; Left hip; - Immunization history:: Adult Immunizations. - Infectious Disease History:: Denies. - Social history:: Smoking status: unknown. Screenin:16 [facility] ED Fall Risk Assessment (Adult) History of falling in the last 3 months, bp including since admission No falls in past 3 months (0 pts). Abuse screen: Denies threats or abuse. Denies injuries from another. Nutritional screening: No deficits noted. Tuberculosis screening: No symptoms or risk factors identified. Assessment: 10:16 General: SEE TRIAGE NOTE. bp Vital Signs: 10:14 BP 140 / 100; Pulse 90; Resp 16; Temp 98; Pulse Ox 97% ; bp ED Course: 10:12 EKG done, by ED staff, reviewed by Yumi Holder MD. mb9 10:14 Patient arrived in ED. bp 10:15 Triage completed. bp 10:15 Yumi Holder MD is Attending Physician. sp3 10:15 Arm band placed on. bp 10:16 Patient has correct armband on for positive identification. Provided Education on: N/A. bp Client placed on continuous cardiac and pulse oximetry monitoring. NIBP monitoring applied. 10:16 No provider procedures requiring assistance completed. Patient did not have IV access bp during this emergency room visit. O2 via ROOM AIR. Administered Medications: No medications were administered Medication: 10:16 VIS not applicable for this client. bp Outcome: 10:19 Discharge ordered by . sp3 10:31 Patient left the ED. hb Signatures: Lissett Chavis, RN RN Bruce Scruggs, RN RN bp Yumi Holder MD MD sp3 Elisa Rangel, RN RN mb9
[2023-06-30 14:50] VITALS: BP 140/100; TEMP 98; O2SAT 97
== END 2023-06-30 10:31 | disposition home or self-care (01) ==
LOC: ER 10:12
DX: R07.9 Chest pain, unspecified (principal); I10 Essential (primary) hypertension; J44.9 Chronic obstructive pulmonary disease, unspecified; I48.91 Unspecified atrial fibrillation; Z95.818 Presence of other cardiac implants and grafts; Z98.82 Breast implant status; Z88.8 Allergy status to other drugs, medicaments and biological substances
CPT/HCPCS: 93005; 99284

== ENCOUNTER 2023-07-01 08:39 | Emergency (ER) | payer OTHER ==
--- NOTE | 2023-07-01 08:48 | EDPHYS ---
Physician Documentation [facility] Name: Reina Hartley Age: 67 yrs Sex: Female : 1955 Arrival Date: 07/01/2023 Time: 08:39 Bed IW1 Private MD: ED Physician Yumi Holder HPI: 06/30 08:44 This 67 yrs old Female presents to ER via Unassigned with complaints of Bee Sting. sp3 08:44 67-year-old female well-known to the ED with PMH above seen several times by me in the sp3 past now presents with lower lip bee sting that occurred several hours ago. Patient denies any airway compromise, swelling or significant findings. She also denies chest pain, shortness of breath, fever, or any other aspect of ROS at this time.. Historical: - Allergies: 09:08 all depression medications; ap3 09:08 Procardia; ap3 - PMHx: 09:08 Atrial fibrillation; Arthritis; COPD (Unknown); COPD (Unknown); diabetes mellitus; ap3 Hypertensive disorder; Myocardial infarction; - PSHx: 09:08 Appendectomy; breast augmentation; cardiac stent; Cholecystectomy; Gastric Bypass; ap3 hysterectomy; Left hip; - Immunization history:: Adult Immunizations unknown. - Infectious Disease History:: Denies. - Social history:: Smoking status: unknown. ROS: 08:45 Constitutional: Negative for fever, chills, and weight loss, Eyes: Negative for injury, sp3 pain, redness, and discharge, Neck: Negative for injury, pain, and swelling, Cardiovascular: Negative for chest pain, palpitations, and edema, Respiratory: Negative for shortness of breath, cough, wheezing, and pleuritic chest pain, Abdomen/GI: Negative for abdominal pain, nausea, vomiting, diarrhea, and constipation, 08:45 All other systems are negative, Exam: 08:45 Constitutional: This is a well developed, well nourished patient who is awake, alert, sp3 and in no acute distress. Head/Face: Normocephalic, atraumatic. Eyes: Pupils equal round and reactive to light, extra-ocular motions intact. Lids and lashes normal. Conjunctiva and sclera are non-icteric and not injected. Cornea within normal limits. Periorbital areas with no swelling, redness, or edema. Neck: Trachea midline, no thyromegaly or masses palpated, and no cervical lymphadenopathy. Supple, full range of motion without nuchal rigidity, or vertebral point tenderness. No Meningismus. Chest/axilla: Normal chest wall appearance and motion. Nontender with no deformity. No lesions are appreciated. Cardiovascular: Regular rate and rhythm with a normal S1 and S2. No gallops, murmurs, or rubs. Normal PMI, no JVD. No pulse deficits. 08:45 ENT: No significant signs of swelling or injury on the lower lip where patient is pointing where her bee sting allegedly occurred. Normal exam.. Vital Signs: 09:06 BP 163 / 92; Pulse 96; Resp 18; Temp 98.7; Pulse Ox 100% on R/A; Weight 61.23 kg; ap3 Height 5 ft. 2 in. ; 09:06 Body Mass Index 24.69 (61.23 kg, 157.48 cm) ap3 MDM: 08:44 Patient medically screened. sp3 08:45 Data reviewed: vital signs, nurses notes, old medical records. ED course: Alleged bee sp3 sting with no signs of injury. Patient has no other emergency and we will be discharging her at this time. No signs of anaphylaxis, allergic reaction or other adverse pathology.. Administered Medications: No medications were administered Disposition Summary: 07/01/23 08:48 Discharge Ordered Notes: Location: Home sp3 Condition: Stable sp3 Diagnosis - Bee sting sp3 Followup: sp3 - With: Private Physician - When: Upon discharge from the Emergency Department - Reason: Continuance of care Discharge Instructions: - Discharge Summary Sheet sp3 - Insect Bite, Adult sp3 Forms: - Medication Reconciliation Form sp3 - Thank You Letter sp3 - Antibiotic Education sp3 - Prescription Opioid Use sp3 - Patient Portal Instructions sp3 - Leadership Thank You Letter sp3 Signatures: Tanya Beltrán RN RN ap3 Yumi Holder MD MD sp3
--- NOTE | 2023-07-01 09:12 | ER ---
Nurse's Notes [facility] Name: Reina Hartley Age: 67 yrs Sex: Female : 1955 Arrival Date: 07/01/2023 Time: 08:39 Bed IW1 Private MD: Diagnosis: Bee sting Presentation: 06/30 09:06 Chief complaint: Patient states: she was stung by a bee this morning. Coronavirus ap3 screen: At this time, the client does not indicate any symptoms associated with coronavirus-19. Ebola Screen: No symptoms or risks identified at this time. Onset: The symptoms/episode began/occurred suddenly. Anaphylaxis evaluation, no signs or symptoms of anaphylaxis were noted. Initial Sepsis Screen: Does the patient meet any 2 criteria? No. Patient's initial sepsis screen is negative. Does the patient have a suspected source of infection? No. Patient's initial sepsis screen is negative. Risk Assessment: Do you want to hurt yourself or someone else? Patient reports no desire to harm self or others. Onset of symptoms was July 01, 2023. 09:06 Method Of Arrival: EMS: [facility] ap3 09:06 Acuity: ANDREA 5 ap3 Triage Assessment: 09:08 General: Appears in no apparent distress. Behavior is calm, cooperative. Pain: ap3 Complains of pain in lower lip. Neuro: Level of Consciousness is awake, alert, obeys commands, Oriented to person, place, time, situation. Cardiovascular: Patient's skin is warm and dry. Respiratory: Airway is patent Respiratory effort is even, unlabored. Historical: - Allergies: 09:08 all depression medications; ap3 09:08 Procardia; ap3 - PMHx: 09:08 Atrial fibrillation; Arthritis; COPD (Unknown); COPD (Unknown); diabetes mellitus; ap3 Hypertensive disorder; Myocardial infarction; - PSHx: 09:08 Appendectomy; breast augmentation; cardiac stent; Cholecystectomy; Gastric Bypass; ap3 hysterectomy; Left hip; - Immunization history:: Adult Immunizations unknown. - Infectious Disease History:: Denies. - Social history:: Smoking status: unknown. Screenin:[address] [facility] ED Fall Risk Assessment (Adult) History of falling in the last 3 months, ap3 including since admission No falls in past 3 months (0 pts) Confusion or Disorientation No (0 pts) Intoxicated or Sedated No (0 pts) Impaired Gait No (0 pts) Mobility Assist Device Used No (0 pt) Altered Elimination No (0 pt) Score/Fall Risk Level 0 - 2 = Low Risk Oriented to surroundings, Maintained a safe environment, Educated pt \T\ family on fall prevention, incl call for assistance when getting out of bed, Assessed \T\ reinforced patient's understanding of fall precautions, Provided non-skid footwear, Hourly rounding (assess needs \T\ fall precautionary measures) done, Used ambulatory aids as needed (educated on \T\ assisted with), Used gait belt as appropriate. Abuse screen: Denies threats or abuse. Nutritional screening: No deficits noted. Tuberculosis screening: No symptoms or risk factors identified. Assessment: 09:09 Respiratory: Airway is patent Respiratory effort is even, unlabored, Respiratory ap3 pattern is regular, symmetrical, Vital Signs: 09:06 BP 163 / 92; Pulse 96; Resp 18; Temp 98.7; Pulse Ox 100% on R/A; Weight 61.23 kg; ap3 Height 5 ft. 2 in. ; 09:06 Body Mass Index 24.69 (61.23 kg, 157.48 cm) ap3 ED Course: 08:41 Patient arrived in ED. mr 08:44 Yumi Holder MD is Attending Physician. sp3 09:08 Triage completed. ap3 09:09 Arm band placed on right wrist. ap3 09:09 No provider procedures requiring assistance completed. Patient did not have IV access ap3 during this emergency room visit. 09:10 Patient has correct armband on for positive identification. Provided Education on: ap3 discharge instructions. Administered Medications: No medications were administered Medication: 09:10 VIS not applicable for this client. ap3 Outcome: 08:48 Discharge ordered by . sp3 09:09 Discharged to [facility]. security notified of patients discharge ap3 09:09 Condition: good 09:09 Discharge instructions given to patient, Instructed on discharge instructions, follow up and referral plans. Demonstrated understanding of instructions, follow-up care, 09:11 Patient left the ED. ap3 Signatures: Elisa Fortune, Reg Reg mr NimcoabrahamTanya, RN RN ap3 Yumi Holder MD MD sp3
[2023-07-01 11:08] VITALS: BP 163/92; TEMP 98.7; O2SAT 100
== END 2023-07-01 09:11 | disposition home or self-care (01) ==
LOC: ER 08:39
DX: T63.441A Toxic effect of venom of bees, accidental (unintentional), initial encounter (principal); Z98.82 Breast implant status; Z88.8 Allergy status to other drugs, medicaments and biological substances
CPT/HCPCS: 99283

== ENCOUNTER 2023-07-06 09:26 | Emergency (ER) | payer OTHER ==
--- NOTE | 2023-07-06 09:37 | EDPHYS ---
Physician Documentation [facility] Name: Reina Hartley Age: 67 yrs Sex: Female : 1955 Arrival Date: 07/06/2023 Time: 09:26 Bed IW1 Private MD: ED Physician Yumi Holder HPI: 07/05 09:34 This 67 yrs old Female presents to ER via Unassigned with complaints of left hip pain. sp3 09:34 67-year-old female with PMH above well-known to the ER and seen multiple times by me sp3 and my colleagues presents to the ED for chief complaint left hip pain status post mechanical fall yesterday. Patient was ambulatory on scene for EMS and arrived to the ED in no acute distress with normal vital signs. ROS otherwise negative.. Historical: - Allergies: 09:39 all depression medications; iw 09:39 Procardia; iw - PMHx: 09:39 Arthritis; Atrial fibrillation; COPD (Unknown); diabetes mellitus; Hypertensive iw disorder; Myocardial infarction; - PSHx: 09:39 Appendectomy; breast augmentation; cardiac stent; Cholecystectomy; Gastric Bypass; iw hysterectomy; Left hip; - Immunization history:: Adult Immunizations. - Infectious Disease History:: Denies. - Social history:: Smoking status: Patient reports the use of cigarette tobacco products, smokes one-half pack cigarettes per day. ROS: 09:34 Constitutional: Negative for fever, chills, and weight loss, Eyes: Negative for injury, sp3 pain, redness, and discharge, ENT: Negative for injury, pain, and discharge, Neck: Negative for injury, pain, and swelling, Cardiovascular: Negative for chest pain, palpitations, and edema, Respiratory: Negative for shortness of breath, cough, wheezing, and pleuritic chest pain, Abdomen/GI: Negative for abdominal pain, nausea, vomiting, diarrhea, and constipation, Back: Negative for injury and pain, Skin: Negative for injury, rash, and discoloration, Neuro: Negative for headache, weakness, numbness, tingling, and seizure, Allergy/Immunology: Negative for hives, rash, and allergies, Endocrine: Negative for neck swelling, polydipsia, polyuria, polyphagia, and marked weight changes, 09:34 All other systems are negative, Exam: 09:35 Constitutional: This is a well developed, well nourished patient who is awake, alert, sp3 and in no acute distress. Head/Face: Normocephalic, atraumatic. Eyes: Pupils equal round and reactive to light, extra-ocular motions intact. Lids and lashes normal. Conjunctiva and sclera are non-icteric and not injected. Cornea within normal limits. Periorbital areas with no swelling, redness, or edema. Neck: Trachea midline, no thyromegaly or masses palpated, and no cervical lymphadenopathy. Supple, full range of motion without nuchal rigidity, or vertebral point tenderness. No Meningismus. Chest/axilla: Normal chest wall appearance and motion. Nontender with no deformity. No lesions are appreciated. Cardiovascular: Regular rate and rhythm with a normal S1 and S2. No gallops, murmurs, or rubs. Normal PMI, no JVD. No pulse deficits. Respiratory: Lungs have equal breath sounds bilaterally, clear to auscultation and percussion. No rales, rhonchi or wheezes noted. No increased work of breathing, no retractions or nasal flaring. Abdomen/GI: Soft, non-tender, with normal bowel sounds. No distension or tympany. No guarding or rebound. No evidence of tenderness throughout. Back: No spinal tenderness. No costovertebral tenderness. Full range of motion. Skin: Warm, dry with normal turgor. Normal color with no rashes, no lesions, and no evidence of cellulitis. MS/ Extremity: Pulses equal, no cyanosis. Neurovascular intact. Full, normal range of motion. Neuro: Awake and alert, GCS 15, oriented to person, place, time, and situation. Cranial nerves II-XII grossly intact. Motor strength 5/5 in all extremities. Sensory grossly intact. Cerebellar exam normal. Normal gait. Psych: Awake, alert, with orientation to person, place and time. Behavior, mood, and affect are within normal limits. Vital Signs: 09:37 BP 151 / 100; Pulse 102; Resp 18; Temp 97.2; Pulse Ox 100% on R/A; Weight 65.77 kg; iw Height 5 ft. 2 in. ; 09:37 Body Mass Index 26.52 (65.77 kg, 157.48 cm) iw MDM: 09:33 Patient medically screened. sp3 09:35 Data reviewed: vital signs, nurses notes, EMS record, old medical records. ED course: sp3 Workup negative including hip exam. Patient is ambulatory in no acute distress. We will safely discharged home with reassurance at this time.. Administered Medications: No medications were administered Disposition Summary: 07/06/23 09:36 Discharge Ordered Notes: Location: Home sp3 Condition: Stable sp3 Diagnosis - Contusion of hip sp3 Followup: sp3 - With: Private Physician - When: Upon discharge from the Emergency Department - Reason: Continuance of care Discharge Instructions: - Discharge Summary Sheet sp3 - Hip Sprain sp3 Forms: - Medication Reconciliation Form sp3 - Antibiotic Education sp3 - Prescription Opioid Use sp3 - Patient Portal Instructions sp3 - Leadership Thank You Letter sp3 Signatures: Fany Deng RN RN Yumi Fernandez MD MD sp3
--- NOTE | 2023-07-06 09:49 | ER ---
Nurse's Notes [facility] Name: Reina Hartley Age: 67 yrs Sex: Female : 1955 Arrival Date: 07/06/2023 Time: 09:26 Bed IW1 Private MD: Diagnosis: Contusion of hip Presentation: 07/05 09:37 Chief complaint: Patient states: feeling bad and has right hip pain, pt ambulatory on iw scene and upon arrival to ER. Coronavirus screen: At this time, the client does not indicate any symptoms associated with coronavirus-19. Ebola Screen: Patient negative for fever greater than or equal to 101.5 degrees Fahrenheit, and additional compatible Ebola Virus Disease symptoms Patient denies exposure to infectious person. Patient denies travel to an Ebola-affected area in the 21 days before illness onset. No symptoms or risks identified at this time. Risk Assessment: Do you want to hurt yourself or someone else? Patient reports no desire to harm self or others. 09:37 Method Of Arrival: EMS: [facility] iw 09:37 Acuity: ANDREA 4 iw Historical: - Allergies: 09:39 all depression medications; iw 09:39 Procardia; iw - PMHx: 09:39 Arthritis; Atrial fibrillation; COPD (Unknown); diabetes mellitus; Hypertensive iw disorder; Myocardial infarction; - PSHx: 09:39 Appendectomy; breast augmentation; cardiac stent; Cholecystectomy; Gastric Bypass; iw hysterectomy; Left hip; - Immunization history:: Adult Immunizations. - Infectious Disease History:: Denies. - Social history:: Smoking status: Patient reports the use of cigarette tobacco products, smokes one-half pack cigarettes per day. Vital Signs: 09:37 BP 151 / 100; Pulse 102; Resp 18; Temp 97.2; Pulse Ox 100% on R/A; Weight 65.77 kg; iw Height 5 ft. 2 in. ; 09:37 Body Mass Index 26.52 (65.77 kg, 157.48 cm) iw ED Course: 09:30 Patient arrived in ED. iw 09:31 Yumi Holder MD is Attending Physician. sp3 09:39 Triage completed. iw 09:39 Arm band placed on. iw 09:48 Fany Deng, RN is Primary Nurse. iw Administered Medications: No medications were administered Outcome: 09:36 Discharge ordered by . sp3 09:48 Patient left the ED. iw Signatures: Fany Deng RN RN iw Yumi Holder MD MD sp3
[2023-07-06 10:36] VITALS: BP 151/100; TEMP 97.2; O2SAT 100
== END 2023-07-06 09:48 | disposition home or self-care (01) ==
LOC: ER 09:26
DX: S70.02XA Contusion of left hip, initial encounter (principal); F17.210 Nicotine dependence, cigarettes, uncomplicated; Z95.818 Presence of other cardiac implants and grafts; Z98.82 Breast implant status; Z88.8 Allergy status to other drugs, medicaments and biological substances
CPT/HCPCS: 99282